=== PATIENT | female | born 1990 | race Caucasian/White ===

== ENCOUNTER 2017-10-31 07:59 | Observation (INO) | payer MEDICAID, SELFPAY ==
[2017-10-31] VITALS (25 sets, daily range): BP systolic 105–135; BP diastolic 66–88; PULSE 108–133; RESP 4–38; TEMP 37–37.8; O2SAT 95–98
--- NOTE | 2017-10-31 08:27 | DI.RAD_ITS ---
SYMPTOM/DIAGNOSIS: COUGH, SOB, WHEEZES, TACHY PA AND LATERAL CHEST: Comparison is made with 05 May 2017. The heart size is normal. The lungs are well inflated and clear. No infiltrate or effusion is seen. No interstitial or emphysematous changes are visible. IMPRESSION: No acute abnormality.
[2017-10-31 08:48] LABS: BE (Venous) -0.3 mmol/L (-3-3); HCO3 (Venous) 24 mmol/L (22-28); O2 Sat (Venous) 71 % (70-80); TCO2 (Venous) 22 mmol/L (22-29); pCO2 (Venous) 38 mm/Hg (34-47); pH (Venous) 7.41 (7.32-7.43); pO2 (Venous) 38 mm/Hg (28-44)
[2017-10-31 08:50] LABS: Abs Immature Grans 0.01 k/cumm (0.0-0.09); Absolute Basophil Count 0.04 k/cumm (0.0-0.2); Absolute Lymphocyte Count 1.21 k/cumm (1.2-3.4); Absolute Monocyte Count 0.51 k/cumm (0.11-0.7); Absolute Neutrophil Count 6.78 k/cumm (1.2-6.7); Basophils % 0.4; Eosinophils % 13.2; HCT 42.4 % (36.0-46.0); HGB 14.4 g/dL (12.0-15.5); Immature Grans % 0.1; Lymphocytes % 12.3; Mean Corpuscular Hemoglobin 27.4 pg (27.0-33.0); Mean Corpuscular Volume 80.6 fL (80-95); Mean Platelet Volume 10.5 fL (8.0-11.0); Monocytes % 5.2; Neutrophils % 68.8; Platelet Count 256 x1000/uL (130-400); RBC 5.26 m/cumm (4.00-5.20); RBC Distribution Width 14.2 % (11.7-14.6); White Blood Cell Count 9.85 k/cumm (4.4-10.8)
[2017-10-31] MEDS: methylPREDNISolone SUCC 125 MG VIAL IVP (08:50)
[2017-10-31] MEDS: Albuterol/Ipratropium 3 ML UPD VIAL UPD (08:50)
[2017-10-31] MEDS: Normal Saline 1,000 ML 1000 ML IV (08:50)
[2017-10-31 09:09] LABS: Diff Comment Manual Differential
[2017-10-31 09:12] LABS: ALT 33 U/L (12-78); AST 27 U/L (15-37); Albumin 3.8 g/dL (3.4-5.0); Alkaline Phosphatase 58 U/L (46-116); Anion Gap 9.3 mmol/L (3-11); BUN 3 mg/dL (7-18); Bilirubin, Total 0.3 mg/dL (0.2-1.0); CO2 24.7 mmol/L (21.0-32.0); CREATININE 0.86 mg/dL (0.55-1.02); Calcium 8.5 mg/dL (8.5-10.1); Chloride 104 mmol/L (98-107); Glucose 95 mg/dL (70-100); Potassium 3.6 mmol/L (3.5-5.1); Sodium 138 mmol/L (136-145); TSH 1.68 uIU/mL (0.358-3.74)
[2017-10-31 09:14] LABS: Troponin I < 0.02 ng/mL (0.00-0.06)
[2017-10-31 09:22] LABS: D-Dimer 167 ng/mlFEU (<500)
[2017-10-31] MEDS: Albuterol/Ipratropium 3 ML UPD VIAL 6 ML UPD ×2 (09:30→10:15)
--- NOTE | 2017-10-31 09:52 | DI.VRAD_ITS ---
EXAM: XR Chest, 2 Views EXAM DATE/TIME: 10/31/2017 8:28 AM CLINICAL HISTORY: 27 years old, female; Pain and signs and symptoms; Cough and wheezing; Chest pain; Type not specified TECHNIQUE: XR of the chest, 2 views. COMPARISON: CR - CHEST 2 VIEWS PA,LAT 05/08/2017 11:08 AM FINDINGS: Lungs: Unremarkable. No consolidation. Pleural space: Unremarkable. No pleural effusion. No pneumothorax. Heart/Mediastinum: Unremarkable. No cardiomegaly. Bones/joints: Unremarkable for patient's age. IMPRESSION: 1. Normal 2 view chest examination. 2. No significant interval change. Dictated and Authenticated by: Butch Zamudio MD. Ordering:GONZALES PHELPS MD
[2017-10-31] MEDS: Normal Saline 1,000 ML 1500 ML IV (11:25)
[2017-10-31] MEDS: Ketorolac 30 MG/ML VIAL IM (11:31)
[2017-10-31 11:43] LABS: Tricyclic Antidepressants Negative (Negative)
[2017-10-31 11:48] LABS: Troponin I < 0.02 ng/mL (0.00-0.06)
[2017-10-31 11:50] LABS: *AMPHETAMINES SCREEN URINE Negative (Negative); *BARBITURATES SCREEN URINE Negative (Negative); *BENZODIAZEPINES SCREEN URINE Negative (Negative); Cannabinoids THC Negative (Negative); Cocaine Screen,Urine Negative (Negative); METHADONE URINE SCREEN Negative (Negative); OPIATES URINE SCREEN Negative (Negative)
[2017-10-31 11:58] LABS: Salicylate < 2.8 mg/dL (2.8-20.0)
[2017-10-31 12:02] LABS: Acetaminophen < 2 ug/mL (10-30)
--- NOTE | 2017-10-31 13:01 | ED.GENADUL_ITS ---
Discharge Plan Disposition Patient Disposition: [facility] INPATIENT Condition: Stable Discharge Details Chief Complaint: RespSymp Clinical Impression: Tachycardia, Wheeze, Community acquired pneumonia Reason For Visit: TACHYCARDIA Admit Date/Time: 10/31/17 12:55 Admit Provider: Austin Dowell Attending Provider: Austin Dowell Primary Care Provider: Jenn Moss ED Provider: Kennedy Cortez Discharge Data Discharge Date/Time-TO BE ENTERED AT DEPARTURE: 10/31/17 14:18 Medical Decision Making MDM Narrative Medical decision making narrative: This is a 27-year-old female with a past medical history of an undifferentiated reactive airway disease with no history of smoking, pneumonia 2-3 months ago, who presents today with chest pain for the last 3 days, which is pleuritic in nature. She has an associated cough that is nonproductive with upper respiratory symptoms as well. She has no history of pulmonary embolism, and no significant red flags however on exam she is notably tachycardic in the 120s on arrival. She does look mildly dehydrated. We will rehydrate the patient, perform both a cardiac and d-dimer workup, get a chest x-ray to evaluate for pneumonia. Because of her notable wheezes on exam we will give the patient updraft treatments for improvement of this. 11 AM Patient's laboratory workup has returned relatively benign. White count is normal. No significant left shift. Venous pH and VBG are normal. Electrolytes are normal, kidney function is stable. Troponin is normal. EKG demonstrates evidence of sinus tachycardia but no evidence of S1 Q3 T3 or right heart strain. TSH is also normal at this time. On reevaluation after 2-1/2 L of normal saline the patient's heart rate is actually slightly increased, and on my exam while she is sitting lying comfortably in bed she is tachycardic in the 120s-130s. Chest pain is mildly improved. Her wheezes are notably improved. D-dimer is negative. I am surprised by her recurrent tachycardia. Will perform a UDS, get acetaminophen and salicylate level for any atypical toxidrome. 11:55 AM Salicylate and acetaminophen and UDS are all normal. In spite of the this and continued fluids the patient's tachycardia is persistent. Most recent exam demonstrates a heart rate in the 120s-130s. She is comfortable though. Temperature has increased to 37.7, she is in concerning for infectious etiology. I have added azithromycin for potential community-acquired pneumonia not seen on chest x-ray. Because of her persistent tachycardia even in light of her young age I do feel that she would be a poor candidate for discharge home with his notable tachycardia. I feel that it is in the best interest of the patient for continued observation here in the hospital. I have recommended inpatient admission for continued fluids, antibiotics, evaluation. I discussed the case with Dr. Dowell, he is agreed to accept the patient for admission. I have extensively reviewed the treatment plan with the patient. I have addressed all patient concerns at this time. I have also discussed the plan with the admitting physician and they agree with the current assessment and plan and have agreed to assume responsibility for the patient. All parties demonstrate verbal understanding and agreement with our assessment and plan at this time. Chest x-ray per virtual radiology normal 2 view chest examination, no significant interval change. EKG 8:48 AM Rate 120, GA 124, QTc 455, QRS 80, sinus tachycardia. No ST elevations or depressions. No T-wave inversions. Small Q-wave that is insignificant in lead III. Lab Data Lab Results 10/31/17 10/31/17 10/31/17 Range/Units 08:44 08:44 08:44 WBC 9.85 (4.4-10.8) k/cumm RBC 5.26 H (4.00-5.20) m/cumm Hgb 14.4 (12.0-15.5) g/dL Hct 42.4 (36.0-46.0) % MCV 80.6 (80-95) fL MCH 27.4 (27.0-33.0) pg MCHC 34.0 (32.0-36.0) g/dL RDW 14.2 (11.7-14.6) % Plt Count 256 (130-400) x1000/uL MPV 10.5 (8.0-11.0) fL Immature Gran % 0.1 Neutrophils % 68.8 Lymphocytes % 12.3 Monocytes % 5.2 Eosinophils % 13.2 Basophils % 0.4 Absolute Neutrophils 6.78 H (1.2-6.7) k/cumm Absolute Lymphocytes 1.21 (1.2-3.4) k/cumm Absolute Monocytes 0.51 (0.11-0.7) k/cumm Absolute Eosinophils 1.30 H (0.0-0.7) k/cumm Absolute Basophils 0.04 (0.0-0.2) k/cumm Differential Comment Manual differential RBC Morphology See below D-Dimer 167 (<500) ng/mlFEU VBG pH (7.32-7.43) VBG pCO2 (34-47) mm/Hg VBG pO2 (28-44) mm/Hg VBG HCO3 (22-28) mmol/L VBG Total CO2 (22-29) mmol/L VBG O2 Saturation (70-80) % VBG Base Excess (-3-3) mmol/L Sodium 138 (136-145) mmol/L Potassium 3.6 (3.5-5.1) mmol/L Chloride 104 (98-107) mmol/L Carbon Dioxide 24.7 (21.0-32.0) mmol/L Anion Gap 9.3 (3-11) mmol/L BUN 3 L (7-18) mg/dL Creatinine 0.86 (0.55-1.02) mg/dL Estimated GFR/1.73 m2 >= 60.00 (mL/min/1.73m2) Glucose 95 (70-100) mg/dL Calcium 8.5 (8.5-10.1) mg/dL Total Bilirubin 0.3 (0.2-1.0) mg/dL AST 27 (15-37) U/L ALT 33 (12-78) U/L Alkaline Phosphatase 58 (46-116) U/L Troponin I < 0.02 (0.00-0.06) ng/mL Total Protein 8.0 (6.4-8.2) g/dL Albumin 3.8 (3.4-5.0) g/dL TSH 1.68 (0.358-3.74) uIU/mL Salicylates (2.8-20.0) mg/dL Urine Opiates Screen (Negative) Urine Methadone Screen (Negative) Acetaminophen (10-30) ug/mL Ur Barbiturates Screen (Negative) Ur Tricyclics Screen (Negative) Ur Amphetamines Screen (Negative) U Benzodiazepines Scrn (Negative) Urine Cocaine Screen (Negative) Ur THC Screen (Negative) 10/31/17 10/31/17 10/31/17 Range/Units 08:44 09:15 11:20 WBC (4.4-10.8) k/cumm RBC (4.00-5.20) m/cumm Hgb (12.0-15.5) g/dL Hct (36.0-46.0) % MCV (80-95) fL MCH (27.0-33.0) pg MCHC (32.0-36.0) g/dL RDW (11.7-14.6) % Plt Count (130-400) x1000/uL MPV (8.0-11.0) fL Immature Gran % Neutrophils % Lymphocytes % Monocytes % Eosinophils % Basophils % Absolute Neutrophils (1.2-6.7) k/cumm Absolute Lymphocytes (1.2-3.4) k/cumm Absolute Monocytes (0.11-0.7) k/cumm Absolute Eosinophils (0.0-0.7) k/cumm Absolute Basophils (0.0-0.2) k/cumm Differential Comment RBC Morphology D-Dimer (<500) ng/mlFEU VBG pH 7.41 (7.32-7.43) VBG pCO2 38 (34-47) mm/Hg VBG pO2 38 (28-44) mm/Hg VBG HCO3 24 (22-28) mmol/L VBG Total CO2 22 (22-29) mmol/L VBG O2 Saturation 71 (70-80) % VBG Base Excess -0.3 (-3-3) mmol/L Sodium (136-145) mmol/L Potassium (3.5-5.1) mmol/L Chloride (98-107) mmol/L Carbon Dioxide (21.0-32.0) mmol/L Anion Gap (3-11) mmol/L BUN (7-18) mg/dL Creatinine (0.55-1.02) mg/dL Estimated GFR/1.73 m2 (mL/min/1.73m2) Glucose (70-100) mg/dL Calcium (8.5-10.1) mg/dL Total Bilirubin (0.2-1.0) mg/dL AST (15-37) U/L ALT (12-78) U/L Alkaline Phosphatase (46-116) U/L Troponin I < 0.02 (0.00-0.06) ng/mL Total Protein (6.4-8.2) g/dL Albumin (3.4-5.0) g/dL TSH (0.358-3.74) uIU/mL Salicylates (2.8-20.0) mg/dL Urine Opiates Screen Negative (Negative) Urine Methadone Screen Negative (Negative) Acetaminophen (10-30) ug/mL Ur Barbiturates Screen Negative (Negative) Ur Tricyclics Screen Negative (Negative) Ur Amphetamines Screen Negative (Negative) U Benzodiazepines Scrn Negative (Negative) Urine Cocaine Screen Negative (Negative) Ur THC Screen Negative (Negative) 10/31/17 Range/Units 11:25 WBC (4.4-10.8) k/cumm RBC (4.00-5.20) m/cumm Hgb (12.0-15.5) g/dL Hct (36.0-46.0) % MCV (80-95) fL MCH (27.0-33.0) pg MCHC (32.0-36.0) g/dL RDW (11.7-14.6) % Plt Count (130-400) x1000/uL MPV (8.0-11.0) fL Immature Gran % Neutrophils % Lymphocytes % Monocytes % Eosinophils % Basophils % Absolute Neutrophils (1.2-6.7) k/cumm Absolute Lymphocytes (1.2-3.4) k/cumm Absolute Monocytes (0.11-0.7) k/cumm Absolute Eosinophils (0.0-0.7) k/cumm Absolute Basophils (0.0-0.2) k/cumm Differential Comment RBC Morphology D-Dimer (<500) ng/mlFEU VBG pH (7.32-7.43) VBG pCO2 (34-47) mm/Hg VBG pO2 (28-44) mm/Hg VBG HCO3 (22-28) mmol/L VBG Total CO2 (22-29) mmol/L VBG O2 Saturation (70-80) % VBG Base Excess (-3-3) mmol/L Sodium (136-145) mmol/L Potassium (3.5-5.1) mmol/L Chloride (98-107) mmol/L Carbon Dioxide (21.0-32.0) mmol/L Anion Gap (3-11) mmol/L BUN (7-18) mg/dL Creatinine (0.55-1.02) mg/dL Estimated GFR/1.73 m2 (mL/min/1.73m2) Glucose (70-100) mg/dL Calcium (8.5-10.1) mg/dL Total Bilirubin (0.2-1.0) mg/dL AST (15-37) U/L ALT (12-78) U/L Alkaline Phosphatase (46-116) U/L Troponin I (0.00-0.06) ng/mL Total Protein (6.4-8.2) g/dL Albumin (3.4-5.0) g/dL TSH (0.358-3.74) uIU/mL Salicylates < 2.8 L (2.8-20.0) mg/dL Urine Opiates Screen (Negative) Urine Methadone Screen (Negative) Acetaminophen < 2 L (10-30) ug/mL Ur Barbiturates Screen (Negative) Ur Tricyclics Screen (Negative) Ur Amphetamines Screen (Negative) U Benzodiazepines Scrn (Negative) Urine Cocaine Screen (Negative) Ur THC Screen (Negative) HPI - General Adult General Date/Time Provider Initiated Documentation: 10/31/17 08:09 . 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 No known family history of alpha-1 antitrypsin deficiency. She presents today for chest pain. Patient states that for the last 3 days she has had mild pleuritic-like chest pain, worse with cough and breathing. She has had an associated cough with rhinorrhea and congestion. She admits to chills at home. Pain is not improved with sitting upright or leaning forward she denies any productivity of the cough. She denies any arm pain, neck pain or shoulder pain. She denies any other sick contacts. Patient does state that she was on antibiotics frequently for various infections in the past. She denies any significant allergies to medications. She denies any family cardiac history. Denies PE risk factors such as recent long car rides, immobilization, recent surgery, prior history of DVT or PE, family history of PE or DVT, morbid obesity, exogenous estrogen and smoking, hemoptysis, history of cancer. She denies any IV or illicit drug use. Patient has no other complaints at this time. Patient has taken her inhaler and 2 breathing treatments at home but denies any significant improvement of her symptoms with this. Related Data Home Medications Medication Instructions Recorded Confirmed L norgest/e.estradiol-e.estrad 1 tab PO DAILY 10/31/17 10/31/17 [Ashlyna] cetirizine 10 mg PO DAILY 10/31/17 10/31/17 Previous Rx's Medication Instructions Recorded albuterol sulfate [ProAir HFA] 2 puff INHALATION Q4H PRN PRN #1 04/19/17 inh Allergies Allergy/AdvReac Type Severity Reaction Status Date / Time banana Allergy Unknown Skin Rash Unverified 10/31/17 09:31 peach Allergy Unverified 10/31/17 09:31 General Stated Complaint: RespSymp ROXANNE: 4 Review of Systems Review of Systems 10 point review of systems was performed, pertinent positives and negatives are noted in the history of present illness. PFSH Family History Mother Mental disorder Asthma Father No problems noted. Sister No problems noted. Brother No problems noted. Other Diabetes Personal history of malignant neoplasm Medical History Tachycardia (Acute) Obstructive airway disease (Chronic) Social History Smoking/Tobacco Use Status: Never Exam Narrative Exam Narrative: 1.Const: Well-nourished, Well-developed, appearing stated age 2.Eyes: PERRL, no conjunctival injection, and symmetrical lids. 3.ENT: Atraumatic external nose and ears. Moist MM. Neck: Symmetric, trachea midline, No thyromegaly. No evidence of otitis media or externa. No significant cervical lymphadenopathy. Notable congestion in the nares. Clear rhinorrhea. 4.CVS: +S1/S2, No murmurs or gallops. Peripheral pulses 2+ and equal in all extremities. Brisk capillary refill in all extremities. 5.RESP: Unlabored respiratory effort. Notable wheezes throughout the upper lung jacobo bilaterally. No significant crackles. Reproducible chest pain circumferentially around her seventh ribs. No evidence of subluxation. No signs of trauma. 6.GI: Soft, Nontender/Nondistended, No hepatosplenomegaly. No guarding or rebound. 7.MSK: Normocephalic/Atraumatic, Extremities w/o deformity or ttp No cyanosis or clubbing, Normal movement of all extremities. No calf tenderness bilaterally. Brisk capillary refill. 8.Skin: Warm, Dry. No rashes or lesions. 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 Sensation grossly intact, no focal neurologic deficits. 10.Psych: (AAO) x3. Appropriate mood and affect Course Vital Signs Temperature 37 C 10/31/17 08:18 Pulse 115 H 10/31/17 08:18 Respiratory Rate 20 10/31/17 08:18 Blood Pressure 127/85 10/31/17 08:18 Pulse Oximetry 97 10/31/17 08:18 Temperature 37.8 C H 10/31/17 11:25 Pulse 121 H 10/31/17 11:25 Respiratory Rate 16 10/31/17 11:25 Blood Pressure 107/67 10/31/17 11:25 Pulse Oximetry 97 10/31/17 11:25 Lab/Test Results Lab/Test Results: Laboratory Tests 10/31/17 10/31/17 10/31/17 08:44 08:44 08:44 WBC 9.85 RBC 5.26 H Hgb 14.4 Hct 42.4 MCV 80.6 MCH 27.4 MCHC 34.0 RDW 14.2 Plt Count 256 MPV 10.5 Immature Gran % 0.1 Neutrophils % 68.8 Lymphocytes % 12.3 Monocytes % 5.2 Eosinophils % 13.2 Basophils % 0.4 Absolute Neutrophils 6.78 H Absolute Lymphocytes 1.21 Absolute Monocytes 0.51 Absolute Eosinophils 1.30 H Absolute Basophils 0.04 Differential Comment Manual differential RBC Morphology See below D-Dimer 167 VBG pH VBG pCO2 VBG pO2 VBG HCO3 VBG Total CO2 VBG O2 Saturation VBG Base Excess Sodium 138 Potassium 3.6 Chloride 104 Carbon Dioxide 24.7 Anion Gap 9.3 BUN 3 L Creatinine 0.86 Estimated GFR/1.73 m2 >= 60.00 Glucose 95 Calcium 8.5 Total Bilirubin 0.3 AST 27 ALT 33 Alkaline Phosphatase 58 Troponin I < 0.02 Total Protein 8.0 Albumin 3.8 TSH 1.68 Salicylates Urine Opiates Screen Urine Methadone Screen Acetaminophen Ur Barbiturates Screen Ur Tricyclics Screen Ur Amphetamines Screen U Benzodiazepines Scrn Urine Cocaine Screen Ur THC Screen 10/31/17 10/31/17 10/31/17 08:44 09:15 11:20 WBC RBC Hgb Hct MCV MCH MCHC RDW Plt Count MPV Immature Gran % Neutrophils % Lymphocytes % Monocytes % Eosinophils % Basophils % Absolute Neutrophils Absolute Lymphocytes Absolute Monocytes Absolute Eosinophils Absolute Basophils Differential Comment RBC Morphology D-Dimer VBG pH 7.41 VBG pCO2 38 VBG pO2 38 VBG HCO3 24 VBG Total CO2 22 VBG O2 Saturation 71 VBG Base Excess -0.3 Sodium Potassium Chloride Carbon Dioxide Anion Gap BUN Creatinine Estimated GFR/1.73 m2 Glucose Calcium Total Bilirubin AST ALT Alkaline Phosphatase Troponin I < 0.02 Total Protein Albumin TSH Salicylates Urine Opiates Screen Negative Urine Methadone Screen Negative Acetaminophen Ur Barbiturates Screen Negative Ur Tricyclics Screen Negative Ur Amphetamines Screen Negative U Benzodiazepines Scrn Negative Urine Cocaine Screen Negative Ur THC Screen Negative 10/31/17 11:25 WBC RBC Hgb Hct MCV MCH MCHC RDW Plt Count MPV Immature Gran % Neutrophils % Lymphocytes % Monocytes % Eosinophils % Basophils % Absolute Neutrophils Absolute Lymphocytes Absolute Monocytes Absolute Eosinophils Absolute Basophils Differential Comment RBC Morphology D-Dimer VBG pH VBG pCO2 VBG pO2 VBG HCO3 VBG Total CO2 VBG O2 Saturation VBG Base Excess Sodium Potassium Chloride Carbon Dioxide Anion Gap BUN Creatinine Estimated GFR/1.73 m2 Glucose Calcium Total Bilirubin AST ALT Alkaline Phosphatase Troponin I Total Protein Albumin TSH Salicylates < 2.8 L Urine Opiates Screen Urine Methadone Screen Acetaminophen < 2 L Ur Barbiturates Screen Ur Tricyclics Screen Ur Amphetamines Screen U Benzodiazepines Scrn Urine Cocaine Screen Ur THC Screen
[2017-10-31] MEDS: AZITHROMYCIN 500 MG in Normal Saline 250 ML 250 MG IVPB (13:35)
--- NOTE | 2017-10-31 15:22 | W.PM.HP.N ---
Date of service: 10/31/17 Time of Service: 15:22 Assessment and Plan (1) Tachycardia: Current visit: Yes Status: Acute Tachycardia in setting of acute likely febrile upper respiratory illness in patient with underlying chronic pulmonary disease. Please note that the patient also appeared to have mention of some modest tachycardia on a discharge summary from 2016 during prior pregnancies. As stated above the patient is febrile, and potentially volume depleted. She is also describing a possible Bronchitis type picture with a sick contact last week with a co-worker, and has underlying Obstructive pulmonary disease. She does not appear to be septic. Other differential considered but ruled out includes anemia, hypoxia, hypotension, and hyperthyroid state (normal TSH). Patient denies any significant pain other than pleuritic type chest discomfort. PE essentially ruled out with a normal DDimer. Highly doubt ACS with EKG showing lack of ischemic changes, age of patient, and lack of significant family history. No evidence of illicit drugs or reported stimulant use. She is also not anemic and there is no evidence of CHF clinicallly. Will hydrate overnight, treat URI, and reevaluate tomorrow. (2) Obstructive airway disease: Current visit: Yes Status: Chronic PFTs showing Moderately Severe Obstructive Airway Disease WITH significant Bronchodilator Response - Question Asthma, although mention was made of potential respiratory neuromuscular dysfunction. Steroids, antibiotics, and nebs for now. Patient is scheduled for outpatient pulm follow-up. Reassess symptoms in the morning. (3) DVT prophylaxis: Current visit: Yes Status: Acute SCDs. History of Present Illness Chief Complaint: Dyspnea Narrative: Pleasant 27-year-old woman with a past medical history of Obstructive Airway Disease by PFTs in June, presents to [facility] emergency department with complaints of worsening dyspnea, cough, and subjective fevers. Ms. Guillen reports a bout of pneumonia in March of this past year. She began to experience continuing dyspnea following her illness, with occasional intermittent bouts of worsening symptoms. Her PCP obtained PFTs in 06/2017, which showed Moderately severe obstructive airway disease with significant bronchodilar response. She has been scheduled to see a local facilities specialist, but not until November of this year. She states that approximately 3 days ago she began experiences worsening dyspnea that did not respond to her home inhaler therapy, as well as a cough, rhinorhea, congestion, and subjective fever. She describes chest pain with deep inspiration and coughing as well. Upon presentation to the ED she was noted to be persistently tachycardic, with an EKG showing sinus tachycardia, negative troponins, normal appearing labs, and a normal CXR. Her DDimer was negative. While afebrile her max temperature was noted to be 37.8. Given the persistent tachycardia despite IVF resuscitation she was referred for admission. Review of Systems Review of Systems All systems reviewed & are unremarkable except as noted in HPI and below PFSH Family History Mother Mental disorder Asthma Father No problems noted. Sister No problems noted. Brother No problems noted. Other Diabetes Personal history of malignant neoplasm Medical History Tachycardia (Acute) Obstructive airway disease (Chronic) Social History Smoking/Tobacco Use Status: Never Meds Allergies Allergy/AdvReac Type Severity Reaction Status Date / Time banana Allergy Unknown Skin Rash Unverified 10/31/17 09:31 peach Allergy Unverified 10/31/17 09:31 Exam Const General: cooperative, healthy appearing, comfortable and no acute distress Neck Neck: supple Resp Effort & Inspection: normal respiratory effort, able to speak in complete sentences and no audible wheezes Auscultation: clear to auscultation bilaterally and no wheezes Cardio Rate: tachycardic Heart Sounds: S1 normal, S2 normal, no murmurs and no rubs Extrem General: no edema Psych Appearance: grossly normal Mental Status: mental status grossly normal Affect: normal affect Attitude: cooperative Results Labs : 10/31/17 08:44 10/31/17 08:44 Abnormal lab results 10/31/17 10/31/17 10/31/17 Range/Units 08:44 08:44 11:25 RBC 5.26 H (4.00-5.20) m/cumm Absolute Neutrophils 6.78 H (1.2-6.7) k/cumm Absolute Eosinophils 1.30 H (0.0-0.7) k/cumm BUN 3 L (7-18) mg/dL Salicylates < 2.8 L (2.8-20.0) mg/dL Acetaminophen < 2 L (10-30) ug/mL Diabetes panel 10/31/17 Range/Units 08:44 Sodium 138 (136-145) mmol/L Potassium 3.6 (3.5-5.1) mmol/L Chloride 104 (98-107) mmol/L Carbon Dioxide 24.7 (21.0-32.0) mmol/L BUN 3 L (7-18) mg/dL Creatinine 0.86 (0.55-1.02) mg/dL Glucose 95 (70-100) mg/dL Calcium 8.5 (8.5-10.1) mg/dL AST 27 (15-37) U/L ALT 33 (12-78) U/L Alkaline Phosphatase 58 (46-116) U/L Total Protein 8.0 (6.4-8.2) g/dL Albumin 3.8 (3.4-5.0) g/dL Thyroid panel 10/31/17 Range/Units 08:44 TSH 1.68 (0.358-3.74) uIU/mL Calcium panel 10/31/17 Range/Units 08:44 Calcium 8.5 (8.5-10.1) mg/dL Albumin 3.8 (3.4-5.0) g/dL Pituitary panel 10/31/17 Range/Units 08:44 Sodium 138 (136-145) mmol/L Potassium 3.6 (3.5-5.1) mmol/L Chloride 104 (98-107) mmol/L Carbon Dioxide 24.7 (21.0-32.0) mmol/L BUN 3 L (7-18) mg/dL Creatinine 0.86 (0.55-1.02) mg/dL Glucose 95 (70-100) mg/dL Calcium 8.5 (8.5-10.1) mg/dL TSH 1.68 (0.358-3.74) uIU/mL Adrenal panel 10/31/17 Range/Units 08:44 Sodium 138 (136-145) mmol/L Potassium 3.6 (3.5-5.1) mmol/L Chloride 104 (98-107) mmol/L Carbon Dioxide 24.7 (21.0-32.0) mmol/L BUN 3 L (7-18) mg/dL Creatinine 0.86 (0.55-1.02) mg/dL Glucose 95 (70-100) mg/dL Calcium 8.5 (8.5-10.1) mg/dL Total Bilirubin 0.3 (0.2-1.0) mg/dL AST 27 (15-37) U/L ALT 33 (12-78) U/L Alkaline Phosphatase 58 (46-116) U/L Total Protein 8.0 (6.4-8.2) g/dL Albumin 3.8 (3.4-5.0) g/dL Laboratory Tests 10/31/17 10/31/17 10/31/17 08:44 08:44 08:44 WBC 9.85 RBC 5.26 H Hgb 14.4 Hct 42.4 MCV 80.6 MCH 27.4 MCHC 34.0 RDW 14.2 Plt Count 256 MPV 10.5 Immature Gran % 0.1 Neutrophils % 68.8 Lymphocytes % 12.3 Monocytes % 5.2 Eosinophils % 13.2 Basophils % 0.4 Absolute Neutrophils 6.78 H Absolute Lymphocytes 1.21 Absolute Monocytes 0.51 Absolute Eosinophils 1.30 H Absolute Basophils 0.04 Differential Comment Manual differential RBC Morphology See below D-Dimer 167 VBG pH VBG pCO2 VBG pO2 VBG HCO3 VBG Total CO2 VBG O2 Saturation VBG Base Excess Sodium 138 Potassium 3.6 Chloride 104 Carbon Dioxide 24.7 Anion Gap 9.3 BUN 3 L Creatinine 0.86 Estimated GFR/1.73 m2 >= 60.00 Glucose 95 Calcium 8.5 Total Bilirubin 0.3 AST 27 ALT 33 Alkaline Phosphatase 58 Troponin I < 0.02 Total Protein 8.0 Albumin 3.8 TSH 1.68 Salicylates Urine Opiates Screen Urine Methadone Screen Acetaminophen Ur Barbiturates Screen Ur Tricyclics Screen Ur Amphetamines Screen U Benzodiazepines Scrn Urine Cocaine Screen Ur THC Screen 10/31/17 10/31/17 10/31/17 08:44 09:15 11:20 WBC RBC Hgb Hct MCV MCH MCHC RDW Plt Count MPV Immature Gran % Neutrophils % Lymphocytes % Monocytes % Eosinophils % Basophils % Absolute Neutrophils Absolute Lymphocytes Absolute Monocytes Absolute Eosinophils Absolute Basophils Differential Comment RBC Morphology D-Dimer VBG pH 7.41 VBG pCO2 38 VBG pO2 38 VBG HCO3 24 VBG Total CO2 22 VBG O2 Saturation 71 VBG Base Excess -0.3 Sodium Potassium Chloride Carbon Dioxide Anion Gap BUN Creatinine Estimated GFR/1.73 m2 Glucose Calcium Total Bilirubin AST ALT Alkaline Phosphatase Troponin I < 0.02 Total Protein Albumin TSH Salicylates Urine Opiates Screen Negative Urine Methadone Screen Negative Acetaminophen Ur Barbiturates Screen Negative Ur Tricyclics Screen Negative Ur Amphetamines Screen Negative U Benzodiazepines Scrn Negative Urine Cocaine Screen Negative Ur THC Screen Negative 10/31/17 11:25 WBC RBC Hgb Hct MCV MCH MCHC RDW Plt Count MPV Immature Gran % Neutrophils % Lymphocytes % Monocytes % Eosinophils % Basophils % Absolute Neutrophils Absolute Lymphocytes Absolute Monocytes Absolute Eosinophils Absolute Basophils Differential Comment RBC Morphology D-Dimer VBG pH VBG pCO2 VBG pO2 VBG HCO3 VBG Total CO2 VBG O2 Saturation VBG Base Excess Sodium Potassium Chloride Carbon Dioxide Anion Gap BUN Creatinine Estimated GFR/1.73 m2 Glucose Calcium Total Bilirubin AST ALT Alkaline Phosphatase Troponin I Total Protein Albumin TSH Salicylates < 2.8 L Urine Opiates Screen Urine Methadone Screen Acetaminophen < 2 L Ur Barbiturates Screen Ur Tricyclics Screen Ur Amphetamines Screen U Benzodiazepines Scrn Urine Cocaine Screen Ur THC Screen
[2017-10-31] MEDS: Potassium Chloride 20 MEQ TABCR 40 MEQ PO (15:59)
[2017-10-31] MEDS: Normal Saline 1,000 ML 150 ML IV ×2 (16:50→23:23)
[2017-10-31] MEDS: predniSONE 20 MG TAB 40 MG PO (19:41)
[2017-10-31] MEDS: Patient's Own Medication 1 EACH MISC PO (20:59)
[2017-11-01 03:40] VITALS: BP 107/54; PULSE 110; RESP 18; TEMP 36.5; O2SAT 96
[2017-11-01] MEDS: Normal Saline 1,000 ML 150 ML IV (05:42)
[2017-11-01 07:00] VITALS: PULSE 97
[2017-11-01 07:33] LABS: Anion Gap 11.6 mmol/L (3-11); BUN 5 mg/dL (7-18); CO2 19.4 mmol/L (21.0-32.0); Chloride 108 mmol/L (98-107); Glucose 119 mg/dL (70-100); Magnesium 1.7 mg/dL (1.8-2.4); Potassium 4.3 mmol/L (3.5-5.1); Sodium 139 mmol/L (136-145)
[2017-11-01 07:45] VITALS: BP 119/78; PULSE 104; RESP 16; TEMP 37.4; O2SAT 95
[2017-11-01] MEDS: predniSONE 20 MG TAB 40 MG PO (08:12)
[2017-11-01] MEDS: Azithromycin 250 MG TAB PO (08:12)
[2017-11-01 09:15] VITALS: BP 123/79; PULSE 133; RESP 18; TEMP 37.6; O2SAT 97
--- NOTE | 2017-11-01 11:30 | W.PM.DS.N ---
DS: Diagnosis Discharge Diagnosis (1) Tachycardia: Status: Acute (2) Obstructive airway disease: Status: Chronic Discharge Plan Disposition Patient Disposition: HOME Condition: Stable Discharge Details Reason For Visit: TACHYCARDIA Admit Date/Time: 10/31/17 12:55 Admit Provider: Austin Dowell Attending Provider: Austin Dowell Primary Care Provider: [facility] Hospital Course: HPI: Pleasant 27-year-old woman with a past medical history of Obstructive Airway Disease by PFTs in June, presents to [facility] emergency department with complaints of worsening dyspnea, cough, and subjective fevers. Ms. Guillne reports a bout of pneumonia in March of this past year. She began to experience continuing dyspnea following her illness, with occasional intermittent bouts of worsening symptoms. Her PCP obtained PFTs in 06/2017, which showed Moderately severe obstructive airway disease with significant bronchodilar response. She has been scheduled to see a local replanting machine crewman, but not until November of this year. She states that approximately 3 days ago she began experiences worsening dyspnea that did not respond to her home inhaler therapy, as well as a cough, rhinorhea, congestion, and subjective fever. She describes chest pain with deep inspiration and coughing as well. Upon presentation to the ED she was noted to be persistently tachycardic, with an EKG showing sinus tachycardia, negative troponins, normal appearing labs, and a normal CXR. Her DDimer and Urine Drug Screen were negative and her TSH was normal. While afebrile her max temperature was noted to be 37.8. Given the persistent tachycardia despite IVF resuscitation she was referred for admission. Studies: (1) XR of the chest, 2 views. COMPARISON: CR - CHEST 2 VIEWS PA,LAT 05/08/2017 11:08 AM FINDINGS: Lungs: Unremarkable. No consolidation. Pleural space: Unremarkable. No pleural effusion. No pneumothorax. Heart/Mediastinum: Unremarkable. No cardiomegaly. Bones/joints: Unremarkable for patient's age. IMPRESSION: 1. Normal 2 view chest examination. 2. No significant interval change. (2) EKG - Sinus Tachycardia Hospital Course: (1) Tachycardia: Current visit: Yes Status: Acute Tachycardia in setting of acute likely febrile upper respiratory illness in patient with underlying chronic pulmonary disease. Please note that the patient also appeared to have mention of some modest tachycardia on a discharge summary from 2016 during prior pregnancies. As stated above the patient reports subjective fevers, and is potentially volume depleted. She is also describing a possible Bronchitis type picture with a sick contact last week with a co-worker, and has underlying Obstructive pulmonary disease. She does not appear to be septic. Other differential considered but ruled out includes anemia, hypoxia, hypotension, and hyperthyroid state (normal TSH). Patient denies any significant pain other than pleuritic type chest discomfort. PE essentially ruled out with a normal DDimer. Highly doubt ACS with EKG showing lack of ischemic changes, age of patient, and lack of significant family history. No evidence of illicit drugs or reported stimulant use - however she does state drinking increased amounts of soda at home. She is also not anemic and there is no evidence of CHF clinicallly. Patient was hydrated and maintained on telemetry overnight. Her HR was 100-130's, mostly in the 100-110's. Plan is for continuation of antibiotics, oral prednisone taper, and continuation of her home IGC and rescue inhaler. Will obtain an ECHO and Holter as outpatient. This case was discussed with cardiology at [facility], and completely agreed upon. (2) Obstructive airway disease: Current visit: Yes Status: Chronic PFTs showing Moderately Severe Obstructive Airway Disease WITH significant Bronchodilator Response - Question Asthma, although mention was made of potential respiratory neuromuscular dysfunction. Ms. Guillen is being discharged with continuation of her home inhaled glucocorticoid and rescue inhaler therapy, as well as with a steroid taper and completion of antibiotic course. Scheduled for follow-up with replanting machine crewman next month. There may also be a component of allergen-induced asthma as well. Currently stable, with a mild exacerbation in setting of acute URI - non-hypoxic. Home Meds and New Rx's Prescriptions: New azithromycin 250 mg Tablet 250 mg PO DAILY 3 Days Qty: 3 RF: 0 prednisone 20 mg Tablet PO BID 6 Days Qty: 14 RF: 0 Continue albuterol sulfate [ProAir HFA] 200 PUFF HFA aerosol inhaler 2 puff Inhalation Q4H PRN PRN (Reason: Wheezing) Qty: 1 RF: 0 cetirizine 10 mg Tablet 10 mg PO DAILY RF: 0 L norgest/e.estradiol-e.estrad [Ashlyna] 0.15 mg-30 mcg (84)/10 mcg (7) Tablets,Dose Pack,3 Month 1 tab PO DAILY RF: 0 Discharge Instructions Instructions: Asthma (DC) Additional Instructions: Please follow-up with your PCP within 2 weeks. Please complete your antibiotics and steroids as prescribed. You will need to schedule a heart ultrasound and Holter monitor after leaving the hospital. We will help you arrange this. Stand Alone Forms: Nursing Discharge Form Activity:: Strenuous Activity. Equipment/Supplies:: No Equipment Needed Diet:: Regular Discharge Orders Discharge Orders: Discharge Order (Routine); Ordered 11/01/17 Ordered By: Austin Dowell Other Ambulatory Orders: Holter Monitor (Outpt) (ONCE) (1) Location: Determined by Patient Ordered By: Austin Dowell US echocardiogram (Routine) Location: Determined by Patient Ordered By: Austin Dowell Exam Const General: cooperative, healthy appearing, comfortable and no acute distress Neck Neck: supple Resp Effort & Inspection: normal respiratory effort, able to speak in complete sentences and no audible wheezes Auscultation: clear to auscultation bilaterally and no wheezes Cardio Rate: tachycardic Heart Sounds: S1 normal, S2 normal, no murmurs and no rubs Extrem General: no edema Psych Appearance: grossly normal Mental Status: mental status grossly normal Affect: normal affect Attitude: cooperative DS: Data Vitals/I&O Vitals and I&O: Vital Signs Temp 37.6 C H 11/01/17 09:15 Pulse 133 H 11/01/17 09:15 Resp 18 11/01/17 09:15 BP 123/79 11/01/17 09:15 Pulse Ox 97 11/01/17 09:15 Intake & Output 10/31/17 10/31/17 11/01/17 11:59 23:59 11:59 Intake Total 1000 / 1000 5452.5 / 5452.5 1287.5 / 1287.5 Output Total 2100 / 2100 1600 / 1600 Balance 1000 / 1000 3352.5 / 3352.5 -312.5 / -312.5 Weight 77.6 kg Intake: IV 1000 / 1000 4732.5 / 4732.5 947.5 / 947.5 Oral 720 / 720 340 / 340 Output: Urine 2100 / 2100 1600 / 1600 Other: Urine Color Yellow Yellow Urine Appearance Clear Cloudy Urine Odor Normal Normal Voiding Methods Toilet Toilet Labs on day of discharge: Labs from last 24 hours 11/01/17 10/31/17 10/31/17 07:15 11:25 11:20 Sodium 139 Potassium 4.3 Chloride 108 H Carbon Dioxide 19.4 L Anion Gap 11.6 H BUN 5 L Creatinine 0.70 Estimated GFR/1.73 m2 >= 60.00 Glucose 119 H Calcium 8.0 L Magnesium 1.7 L Troponin I < 0.02 Salicylates < 2.8 L Urine Opiates Screen Urine Methadone Screen Acetaminophen < 2 L Ur Barbiturates Screen Ur Tricyclics Screen Ur Amphetamines Screen U Benzodiazepines Scrn Urine Cocaine Screen Ur THC Screen 10/31/17 09:15 Sodium Potassium Chloride Carbon Dioxide Anion Gap BUN Creatinine Estimated GFR/1.73 m2 Glucose Calcium Magnesium Troponin I Salicylates Urine Opiates Screen Negative Urine Methadone Screen Negative Acetaminophen Ur Barbiturates Screen Negative Ur Tricyclics Screen Negative Ur Amphetamines Screen Negative U Benzodiazepines Scrn Negative Urine Cocaine Screen Negative Ur THC Screen Negative Date of service: 11/01/17 Time of Service: 11:31
--- NOTE | 2017-11-01 11:34 | DSE_ITS ---
DS: Diagnosis Discharge Diagnosis (1) Tachycardia: Status: Acute (2) Obstructive airway disease: Status: Chronic Discharge Plan Disposition Patient Disposition: HOME Condition: Stable Discharge Details Reason For Visit: TACHYCARDIA Admit Date/Time: 10/31/17 12:55 Admit Provider: Austin Dowell Attending Provider: Austin Dowell Primary Care Provider: [facility] Hospital Course: HPI: Pleasant 27-year-old woman with a past medical history of Obstructive Airway Disease by PFTs in June, presents to [facility] emergency department with complaints of worsening dyspnea, cough, and subjective fevers. Ms. Guillen reports a bout of pneumonia in March of this past year. She began to experience continuing dyspnea following her illness, with occasional intermittent bouts of worsening symptoms. Her PCP obtained PFTs in 06/2017, which showed Moderately severe obstructive airway disease with significant bronchodilar response. She has been scheduled to see a local chief bank examiner, but not until November of this year. She states that approximately 3 days ago she began experiences worsening dyspnea that did not respond to her home inhaler therapy, as well as a cough, rhinorhea, congestion, and subjective fever. She describes chest pain with deep inspiration and coughing as well. Upon presentation to the ED she was noted to be persistently tachycardic, with an EKG showing sinus tachycardia, negative troponins, normal appearing labs, and a normal CXR. Her DDimer and Urine Drug Screen were negative and her TSH was normal. While afebrile her max temperature was noted to be 37.8. Given the persistent tachycardia despite IVF resuscitation she was referred for admission. Studies: (1) XR of the chest, 2 views. COMPARISON: CR - CHEST 2 VIEWS PA,LAT 05/08/2017 11:08 AM FINDINGS: Lungs: Unremarkable. No consolidation. Pleural space: Unremarkable. No pleural effusion. No pneumothorax. Heart/Mediastinum: Unremarkable. No cardiomegaly. Bones/joints: Unremarkable for patient's age. IMPRESSION: 1. Normal 2 view chest examination. 2. No significant interval change. (2) EKG - Sinus Tachycardia Hospital Course: (1) Tachycardia: Current visit: Yes Status: Acute Tachycardia in setting of acute likely febrile upper respiratory illness in patient with underlying chronic pulmonary disease. Please note that the patient also appeared to have mention of some modest tachycardia on a discharge summary from 2016 during prior pregnancies. As stated above the patient reports subjective fevers, and is potentially volume depleted. She is also describing a possible Bronchitis type picture with a sick contact last week with a co-worker, and has underlying Obstructive pulmonary disease. She does not appear to be septic. Other differential considered but ruled out includes anemia, hypoxia, hypotension, and hyperthyroid state (normal TSH). Patient denies any significant pain other than pleuritic type chest discomfort. PE essentially ruled out with a normal DDimer. Highly doubt ACS with EKG showing lack of ischemic changes, age of patient, and lack of significant family history. No evidence of illicit drugs or reported stimulant use - however she does state drinking increased amounts of soda at home. She is also not anemic and there is no evidence of CHF clinicallly. Patient was hydrated and maintained on telemetry overnight. Her HR was 100-130's , mostly in the 100-110's. Plan is for continuation of antibiotics, oral prednisone taper, and continuation of her home IGC and rescue inhaler. Will obtain an ECHO and Holter as outpatient. This case was discussed with cardiology at [facility], and completely agreed upon. (2) Obstructive airway disease: Current visit: Yes Status: Chronic PFTs showing Moderately Severe Obstructive Airway Disease WITH significant Bronchodilator Response - Question Asthma, although mention was made of potential respiratory neuromuscular dysfunction. Ms. Guillen is being discharged with continuation of her home inhaled glucocorticoid and rescue inhaler therapy, as well as with a steroid taper and completion of antibiotic course. Scheduled for follow-up with chief bank examiner next month. There may also be a component of allergen-induced asthma as well. Currently stable, with a mild exacerbation in setting of acute URI - non-hypoxic. Home Meds and New Rx's Prescriptions: New azithromycin 250 mg Tablet 250 mg PO DAILY 3 Days Qty: 3 RF: 0 prednisone 20 mg Tablet PO BID 6 Days Qty: 14 RF: 0 Continue albuterol sulfate [ProAir HFA] 200 PUFF HFA aerosol inhaler 2 puff Inhalation Q4H PRN PRN (Reason: Wheezing) Qty: 1 RF: 0 cetirizine 10 mg Tablet 10 mg PO DAILY RF: 0 L norgest/e.estradiol-e.estrad [Ashlyna] 0.15 mg-30 mcg (84)/10 mcg (7) Tablets,Dose Pack,3 Month 1 tab PO DAILY RF: 0 Discharge Instructions Instructions: Asthma (DC) Additional Instructions: Please follow-up with your PCP within 2 weeks. Please complete your antibiotics and steroids as prescribed. You will need to schedule a heart ultrasound and Holter monitor after leaving the hospital. We will help you arrange this. Stand Alone Forms: Nursing Discharge Form Activity:: Strenuous Activity. Equipment/Supplies:: No Equipment Needed Diet:: Regular Discharge Orders Discharge Orders: Discharge Order (Routine); Ordered 11/01/17 Ordered By: Austin Dowell Other Ambulatory Orders: Holter Monitor (Outpt) (ONCE) (1) Location: Determined by Patient Ordered By: Austin Dowell US echocardiogram (Routine) Location: Determined by Patient Ordered By: Austin Dowell Exam Const General: cooperative, healthy appearing, comfortable and no acute distress Neck Neck: supple Resp Effort & Inspection: normal respiratory effort, able to speak in complete sentences and no audible wheezes Auscultation: clear to auscultation bilaterally and no wheezes Cardio Rate: tachycardic Heart Sounds: S1 normal, S2 normal, no murmurs and no rubs Extrem General: no edema Psych Appearance: grossly normal Mental Status: mental status grossly normal Affect: normal affect Attitude: cooperative DS: Data Vitals/I&O Vitals and I&O: Vital Signs Temp 37.6 C H 11/01/17 09:15 Pulse 133 H 11/01/17 09:15 Resp 18 11/01/17 09:15 BP 123/79 11/01/17 09:15 Pulse Ox 97 11/01/17 09:15 Intake & Output 10/31/17 10/31/17 11/01/17 11:59 23:59 11:59 Intake Total 1000 / 1000 5452.5 / 5452.5 1287.5 / 1287.5 Output Total 2100 / 2100 1600 / 1600 Balance 1000 / 1000 3352.5 / 3352.5 -312.5 / -312.5 Weight 77.6 kg Intake: IV 1000 / 1000 4732.5 / 4732.5 947.5 / 947.5 Oral 720 / 720 340 / 340 Output: Urine 2100 / 2100 1600 / 1600 Other: Urine Color Yellow Yellow Urine Appearance Clear Cloudy Urine Odor Normal Normal Voiding Methods Toilet Toilet Labs on day of discharge: Labs from last 24 hours 11/01/17 10/31/17 10/31/17 07:15 11:25 11:20 Sodium 139 Potassium 4.3 Chloride 108 H Carbon Dioxide 19.4 L Anion Gap 11.6 H BUN 5 L Creatinine 0.70 Estimated GFR/1.73 m2 >= 60.00 Glucose 119 H Calcium 8.0 L Magnesium 1.7 L Troponin I < 0.02 Salicylates < 2.8 L Urine Opiates Screen Urine Methadone Screen Acetaminophen < 2 L Ur Barbiturates Screen Ur Tricyclics Screen Ur Amphetamines Screen U Benzodiazepines Scrn Urine Cocaine Screen Ur THC Screen 10/31/17 09:15 Sodium Potassium Chloride Carbon Dioxide Anion Gap BUN Creatinine Estimated GFR/1.73 m2 Glucose Calcium Magnesium Troponin I Salicylates Urine Opiates Screen Negative Urine Methadone Screen Negative Acetaminophen Ur Barbiturates Screen Negative Ur Tricyclics Screen Negative Ur Amphetamines Screen Negative U Benzodiazepines Scrn Negative Urine Cocaine Screen Negative Ur THC Screen Negative Date of service: 11/01/17 Time of Service: 11:31
[2017-11-01 12:12] VITALS: PULSE 129
[2017-11-01] MEDS: Normal Saline Flush 10 ML SYR IVP (12:39)
--- NOTE | 2017-11-01 15:51 | PDOC.CMIN ---
- If Service Date Differs Date of service: 11/01/17 Time of Service: 09:00 Care Management Initial Assess REASON FOR HOSPITALIZATION:: Tachycardia PAST MEDICAL HISTORY/PAST SURGICAL HISTORY:: Asthma PREVIOUS FUNCTIONAL STATUS/SOCIAL/FAMILY SUPPORTS:: Miya lives in [place], [place] with her SO and her two daughters. 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 She is independent with ADL's and transportation. CURRENT FUNCTIONAL STATUS:: Miya is sitting up in bed her two daughters and samra are at the bedside. CM reviewed reason for admission with Pt and history r/t asthma. She states she takes pulmocort and that she takes her medications everyday. She has an updraft at home in addition to her inhaler. She states that she sets a timer on her phone so that she does not forget medications. She states she had a PFT in the past and she did not think she had a diagnosis of asthma. She was referred to Pulmonoligist locally and has an appointment with her in November. CM reviewed triggers for asthma including allergens such as pets, mold and pollen. She states she takes Zyrtec at night. Miya has been using her albuterol frequently due to shortness of breath she does not feel she has been finding relief from it. She states she does not smoke and is not exposed to second hand smoke. She believes she has had difficulty with breathing most of her life. ADVANCE DIRECTIVES:: None on file Has patient been provided with information about the portal?: Yes Did the patient sign up for the portal?: No CODE STATUS:: Full Code INSURANCE COVERAGE / FINANCIAL ISSUES:: Medicaid CURRENT HOME/COMMUNITY SERVICES/EQUIPMENT:: Nebulizer. PRIMARY CARE PHYSICIAN:: Jenn Moss APRN POTENTIAL DISCHARGE NEEDS:: Follow up appointment is scheduled with in November. PATIENT/FAMILY EDUCATION NEEDS:: Discharge education, medications, limitations, follow-up plan of care, ask me 3 discussion and self-management. CM provided education related to asthma action plan, inhaler use, including inhaled steroids. TRANSPORTATION:: Via private car with her significant other. PLAN:: Miya, will be discharged home today oral steroids, antibiotics, albuterol inhaler, and her Pulmicort. 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 CM provided contact information for questions when she is discharged.
--- NOTE | 2017-11-01 16:02 | INITIAL_ITS ---
- If Service Date Differs Date of service: 11/01/17 Time of Service: 09:00 Care Management Initial Assess REASON FOR HOSPITALIZATION:: Tachycardia PAST MEDICAL HISTORY/PAST SURGICAL HISTORY:: Asthma PREVIOUS FUNCTIONAL STATUS/SOCIAL/FAMILY SUPPORTS:: Miya lives in [place], [place] with her SO and her two daughters. 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 She is independent with ADL's and transportation. CURRENT FUNCTIONAL STATUS:: Miya is sitting up in bed her two daughters and samra are at the bedside. CM reviewed reason for admission with Pt and history r/t asthma. She states she takes pulmocort and that she takes her medications everyday. She has an updraft at home in addition to her inhaler. She states that she sets a timer on her phone so that she does not forget medications. She states she had a PFT in the past and she did not think she had a diagnosis of asthma. She was referred to Pulmonoligist locally and has an appointment with her in November. CM reviewed triggers for asthma including allergens such as pets , mold and pollen. She states she takes Zyrtec at night. Miya has been using her albuterol frequently due to shortness of breath she does not feel she has been finding relief from it. She states she does not smoke and is not exposed to second hand smoke. She believes she has had difficulty with breathing most of her life. ADVANCE DIRECTIVES:: None on file Has patient been provided with information about the portal?: Yes Did the patient sign up for the portal?: No CODE STATUS:: Full Code INSURANCE COVERAGE / FINANCIAL ISSUES:: Medicaid CURRENT HOME/COMMUNITY SERVICES/EQUIPMENT:: Nebulizer. PRIMARY CARE PHYSICIAN:: Jenn Moss APRN POTENTIAL DISCHARGE NEEDS:: Follow up appointment is scheduled with in November. PATIENT/FAMILY EDUCATION NEEDS:: Discharge education, medications, limitations, follow-up plan of care, ask me 3 discussion and self-management. CM provided education related to asthma action plan, inhaler use, including inhaled steroids. TRANSPORTATION:: Via private car with her significant other. PLAN:: Miya, will be discharged home today oral steroids, antibiotics, albuterol inhaler, and her Pulmicort. 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 CM provided contact information for questions when she is discharged.
--- NOTE | 2017-11-01 16:08 | PDOC.CMDIS ---
- If Service Date Differs Date of service: 11/01/17 Time of Service: 16:09 LACE Index Scoring Tool - Questions: Length of Stay (in days): 2 Acuity (Admit via E.D.?): Yes E.D. Visits: 3 - Answers: Total Score: 8 Risk of Readmission: Low Risk Care Management Discharge Reason for Hospitalization: Tachycardia Discharge Plan: Miya, will be discharged home today oral steroids, antibiotics, albuterol inhaler, and her Pulmicort. 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 CM provided contact information for questions when she is discharged. Patient/Family Education Needs: Discharge education, medications, limitations, follow-up plan of care, ask me 3 discussion and self-management. CM provided education related to asthma action plan, inhaler use, including inhaled steroids.
--- NOTE | 2017-11-01 16:14 | CMDISCH_ITS ---
- If Service Date Differs Date of service: 11/01/17 Time of Service: 16:09 LACE Index Scoring Tool - Questions: Length of Stay (in days): 2 Acuity (Admit via E.D.?): Yes E.D. Visits: 3 - Answers: Total Score: 8 Risk of Readmission: Low Risk Care Management Discharge Reason for Hospitalization: Tachycardia Discharge Plan: Miya, will be discharged home today oral steroids, antibiotics , albuterol inhaler, and her Pulmicort. 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 CM provided contact information for questions when she is discharged. Patient/Family Education Needs: Discharge education, medications, limitations, follow-up plan of care, ask me 3 discussion and self-management. CM provided education related to asthma action plan, inhaler use, including inhaled steroids.
== END 2017-11-01 13:28 | disposition home or self-care (01) ==
LOC: ER 13:20 → MS 22:17
PROVIDERS: Admitting Provider Internal Medicine; Emergency Provider Student in an Organized Health Care Education/Training Program; PCP Nurse Practitioner; Visit Provider Internal Medicine
DX: J44.9 Chronic obstructive pulmonary disease, unspecified; R00.0 Tachycardia, unspecified
CPT/HCPCS: 36410; 36415; 80048; 80053; 80307; 81025; 82805; 87040; 87449; 93005; 94640; 96361; 96365; 96372; 96375; 99217; 99219; 99285; 71046; 80329; 83735; 84443; 84484; 85025; 85379; 93010; G0378; J0456; J1885; J2930; J7512; J7620

== ENCOUNTER 2017-11-04 02:08 | Outpatient (CLI) | payer MEDICAID, SELFPAY | END 2017-11-04 02:28 | PROVIDERS: PCP Nurse Practitioner Family; Visit Provider Internal Medicine | DX: R00.0 Tachycardia, unspecified (principal) | CPT/HCPCS: 93225 ==

== ENCOUNTER 2017-11-06 15:19 | Outpatient (CLI) | payer MEDICAID, SELFPAY ==
--- NOTE | 2017-11-17 16:04 | W.HOLTRPT ---
Holter Monitor Report Holter Monitor Note: Baseline rhythm is sinus. Rare single PAC. No SVT or atrial fibrillation. Rare single PVC. No VT. No bradycardia. Symptoms: Chest pain noted 3 times, 91-121 bpm, no ST-T wave changes. Shortness of breath once during sinus rhythm 128 bpm. Fast heart rate noted 3 times during sinus rhythm 77-115 bpm. Average heart rate 96 bpm, range 67-140 bpm.
== END 2017-11-06 15:39 ==
PROVIDERS: PCP Nurse Practitioner Family; Visit Provider Internal Medicine
DX: R00.0 Tachycardia, unspecified (principal)
CPT/HCPCS: 93226

== ENCOUNTER 2018-03-16 19:19 | Emergency (ER) | payer MEDICAID, SELFPAY ==
[2018-03-16] VITALS (12 sets, daily range): BP systolic 123–134; BP diastolic 81–82; PULSE 115–132; RESP 12–23; TEMP 36.8–37.5; O2SAT 94
--- NOTE | 2018-03-16 19:31 | W.ED.GENAD ---
Discharge Plan Disposition Patient Disposition: HOME Condition: Fair Discharge Details Chief Complaint: RespSymp Clinical Impression: Influenza A, Elevated liver enzymes Primary Care Provider: Nadja Doan ED Provider: Renee Valdez Home Meds and New Rx's Prescriptions: New oseltamivir [Tamiflu] 75 mg capsule 75 mg PO BID 5 Days Qty: 10 RF: 0 ondansetron 4 mg tablet,disintegrating 4 mg PO QID PRN (Reason: nausea and vomiting) Qty: 10 RF: 0 Continued ProAir HFA 200 PUFF HFA aerosol inhaler 2 puff Inhalation Q4H PRN PRN (Reason: Wheezing) Qty: 1 RF: 0 montelukast 10 mg Tablet 10 mg PO QPM RF: 0 cetirizine 10 mg Tablet 10 mg PO DAILY RF: 0 L norgest/e.estradiol-e.estrad [Ashlyna] 0.15 mg-30 mcg (84)/10 mcg (7) Tablets,Dose Pack,3 Month 1 tab PO DAILY RF: 0 Discharge Instructions Instructions: H1N1 Influenza (ED) Additional Instructions: Encourage hydration. Tylenol and/or Motrin as needed for discomfort. Tamiflu as prescribed for influenza. Zofran as prescribed for nausea as needed. Frequent hand hygiene. If you develop shortness of breath, difficulty breathing, inability to stay hydrated or other new/worsening symptoms please seek care urgently once again. Please follow up with primary care next week for reevaluation and to discuss your continued fast heart rate and elevated liver enzymes. Stand Alone Forms: Work Release Referrals: Nadja Doan [Primary Care Provider] - Medical Decision Making Patient is a 28 year old female with history of asthma, presenting today with c/c of URI symptoms. States that coworker has been sick, her child dx with the flu. States that symptoms began less than 48 hours ago. Endorsing cough, congestion, left ear discomfort, sore throat. Endorses nausea but no vomiting or diarrhea. No abdominal pain. Endorrses chills, no documented fevers. Did not receive flu vaccine this year. On exam, patient appears fatigued. She has faint wheeze in RLL, she declines breathing treatment at this time. She reprots she is not SOB or feel tight at this time. Has been using her asthma medication as prescribed. She is tachycardic at 130. Will obtain rapid flu, baseline labs and hydrate the patient. Patient discussed with nursing staff that her HR is always elevated. I reviewed this and patient is typically 110s-120s. Reviewed previous notes, patient was admitted last fall for her tachycardia and asthma. She was referred for Holter and echo. She reports that echo has not yet been completed secondary to insurance issues, has not been in contact with PCP further about this. Patient positive for influenza A. Will begin on Tamiflu. discussed with patient. Receiving Zofran for nausea. Labs reviewed, AST elevated at 57, this has not been elevated historically. Advised patient of this, she will have PCP recheck. Patient prescribed Zofran and Tamiflu. We discussed new/worsening symptoms and when to seek care urgently once again. All of her questions adn concerns were addressed, she is in agreement with this plan. HPI General Mode of arrival: ambulatory. Date/Time Provider Initiated Documentation: 03/16/18 19:30. Limitations to Documentation: no limitations. Information obtained by: patient. History of Present Illness 28 year old F presents to the emergency department with the chief complaint of URI, diffuse body aches, described as moderate, with intensity rated at 8. Quality is described as aching, Patient started experiencing this hour(s) (43) and it has been constant. No relieving factors improve symptom(s), No exacerbating factors reported . Patient notes cough, fever/chills (endorses chills, no documented fevers), loss of appetite, nausea/vomiting (nausea, no vomiting) and shortness of breath (last night, wheezing); denies chest pain, headaches, rash, syncope and weakness. Patient did receive the following treatments prior to arrival, none Related Data Home Medications Medication Instructions Recorded Confirmed ProAir HFA 2 puff INHALATION Q4H PRN PRN #1 04/19/17 03/16/18 inh L norgest/e.estradiol-e.estrad 1 tab PO DAILY 10/31/17 03/16/18 [Ashlyna] cetirizine 10 mg PO DAILY 10/31/17 03/16/18 montelukast 10 mg PO QPM 03/16/18 03/16/18 ondansetron 4 mg PO QID PRN #10 tab 03/16/18 oseltamivir [Tamiflu] 75 mg PO BID 5 Days #10 cap 03/16/18 Previous Rx's Medication Instructions Recorded ProAir HFA 2 puff INHALATION Q4H PRN PRN #1 04/19/17 inh ondansetron 4 mg PO QID PRN #10 tab 03/16/18 oseltamivir [Tamiflu] 75 mg PO BID 5 Days #10 cap 03/16/18 Allergies Allergy/AdvReac Type Severity Reaction Status Date / Time banana Allergy Unknown Skin Rash Unverified 10/31/17 09:31 peach Allergy Unverified 10/31/17 09:31 General Stated Complaint: RespSymp ROXANNE: 3 Review of Systems Constitutional Reports as per HPI and Denies headache(s) Eyes Reports as per HPI, Denies eye discharge and Denies irritation ENT Denies ear discharge, Reports otalgia, Denies headache(s), Denies mouth lesions, Reports nasal congestion, Reports nasal discharge and Reports sore throat Cardiovascular Reports as per HPI, Denies chest pain and Denies dyspnea Respiratory Reports cough, Denies pain with cough, Denies dyspnea, Denies stridor and Denies wheezing Gastrointestinal Reports as per HPI, Denies abdominal pain, Denies change in bowel habits, Denies nausea and Denies vomiting Integumentary/Breasts Reports as per HPI and Denies rash Neurologic Denies headache(s) Allergic/Immunologic Denies wheezing [facility] Medical History Tachycardia (Acute) Obstructive airway disease (Chronic) Family History Mother Mental disorder Asthma Father No problems noted. Sister No problems noted. Brother No problems noted. Other Diabetes Personal history of malignant neoplasm Social History Smoking/Tobacco Use Status: Never Exam Const General: cooperative, healthy appearing, comfortable, no acute distress, well developed and well groomed Nutritional Appearance: average body habitus and well nourished Orientation: alert and awake [facility] Head: normal to inspection, normocephalic and atraumatic Ears: hearing grossly normal bilaterally, external ears normal and TM's normal bilaterally General nose exam: external nose normal and nares normal Face and sinus: normal facial exam, sinuses nontender and face symmetric Mouth: oral mucosae normal, lip normal, tongue normal, oropharynx normal and moist mucous membranes Teeth and gingiva: dentition normal Throat: posterior oropharynx normal, tonsils normal and uvula midline Eyes General: appearance normal, both eyes and all related structures Neck Neck: normal visual inspection, full ROM, no lymphadenopathy and no meningeal signs Resp Effort & Inspection: normal respiratory effort, able to speak in complete sentences and no respiratory distress Auscultation: no rales, no rhonchi and wheezes expiratory wheezes and right lower Cardio Rate: regular rate Rhythm: regular rhythm Heart Sounds: S1 normal and S2 normal Skin General skin exam: no rashes or lesions noted Neuro General: alert and awake Cognition: normal cognition Speech: speech normal Gait: normal gait Psych Appearance: grossly normal and well kempt Mental Status: mental status grossly normal Speech and Movement: speech and movement normal Course Vital Signs Temperature 36.8 C 03/16/18 19:23 Pulse 130 H 03/16/18 19:23 Respiratory Rate 03/16/18 19:23 Blood Pressure 134/82 03/16/18 19:23 Pulse Oximetry 94 L 03/16/18 19:23 Temperature 36.8 C 03/16/18 19:23 Temperature Source Skin 03/16/18 19:23 Pulse 130 H 03/16/18 19:23 Respiratory Rate 22 03/16/18 19:23 Respiratory Effort 03/16/18 19:26 Blood Pressure 134/82 03/16/18 19:23 Blood Pressure Position Sitting 03/16/18 19:23 Pulse Oximetry 94 L 03/16/18 19:23 Oxygen Delivery Method Room Air 03/16/18 19:23 Oxygen Flow Rate 0 03/16/18 19:23 Pain Level 8 03/16/18 19:23
[2018-03-16] MEDS: Normal Saline 1,000 ML 1000 ML IV (19:50)
[2018-03-16] MEDS: Normal Saline Flush 10 ML SYR IVP (19:50)
[2018-03-16 20:03] LABS: Abs Immature Grans 0.01 k/cumm (0.0-0.09); Absolute Basophil Count 0.02 k/cumm (0.0-0.2); Absolute Eosinophil Count 0.07 k/cumm (0.0-0.7); Absolute Lymphocyte Count 0.99 k/cumm (1.2-3.4); Absolute Monocyte Count 0.69 k/cumm (0.11-0.7); Absolute Neutrophil Count 2.68 k/cumm (1.2-6.7); Basophils % 0.4; Eosinophils % 1.6; HCT 41.5 % (36.0-46.0); HGB 14.4 g/dL (12.0-15.5); Immature Grans % 0.2; Lymphocytes % 22.2; Mean Corp. HGB Concentration 34.7 g/dL (32.0-36.0); Mean Corpuscular Hemoglobin 28.1 pg (27.0-33.0); Mean Corpuscular Volume 80.9 fL (80-95); Mean Platelet Volume 10.4 fL (8.0-11.0); Monocytes % 15.5; Neutrophils % 60.1; Platelet Count 233 x1000/uL (130-400); RBC 5.13 m/cumm (4.00-5.20); RBC Distribution Width 13.8 % (11.7-14.6); White Blood Cell Count 4.46 k/cumm (4.4-10.8)
[2018-03-16 20:21] LABS: ALT 57 U/L (12-78); AST 57 U/L (15-37); Albumin 3.5 g/dL (3.4-5.0); Alkaline Phosphatase 52 U/L (46-116); Anion Gap 11.4 mmol/L (3-11); BUN 7 mg/dL (7-18); Bilirubin, Total 0.2 mg/dL (0.2-1.0); CO2 24.6 mmol/L (21.0-32.0); CREATININE 0.98 mg/dL (0.55-1.02); Calcium 8.4 mg/dL (8.5-10.1); Chloride 102 mmol/L (98-107); Glucose 92 mg/dL (70-100); Potassium 3.4 mmol/L (3.5-5.1); Sodium 138 mmol/L (136-145); Total Protein 7.6 g/dL (6.4-8.2)
[2018-03-16] MEDS: Ondansetron 4 MG/2 ML VIAL IVP (20:31)
[2018-03-16] MEDS: Oseltamivir 75 MG CAP PO (20:32)
[2018-03-16] MEDS: Ondansetron O.D.T. 4 MG TABEF 12 MG PO (21:20)
== END 2018-03-16 21:22 | disposition home or self-care (01) ==
PROVIDERS: Emergency Provider Physician Assistant; PCP Nurse Practitioner Family
DX: J11.1 Influenza due to unidentified influenza virus with other respiratory manifestations (principal); R94.5 Abnormal results of liver function studies; J45.909 Unspecified asthma, uncomplicated
CPT/HCPCS: 80053; 87449; 96361; 96374; 99284; 85025; J2405

== ENCOUNTER 2018-04-23 12:17 | Outpatient (CLI) | payer MEDICAID, SELFPAY ==
[2018-04-23 13:01] LABS: Abs Immature Grans 0.02 k/cumm (0.0-0.09); Absolute Basophil Count 0.03 k/cumm (0.0-0.2); Absolute Eosinophil Count 0.76 k/cumm (0.0-0.7); Absolute Lymphocyte Count 2.21 k/cumm (1.2-3.4); Absolute Monocyte Count 0.44 k/cumm (0.11-0.7); Absolute Neutrophil Count 3.86 k/cumm (1.2-6.7); Basophils % 0.4; Eosinophils % 10.4; HCT 42.1 % (36.0-46.0); HGB 14.3 g/dL (12.0-15.5); Immature Grans % 0.3; Lymphocytes % 30.2; Mean Corpuscular Hemoglobin 27.7 pg (27.0-33.0); Mean Corpuscular Volume 81.6 fL (80-95); Mean Platelet Volume 10.4 fL (8.0-11.0); Neutrophils % 52.7; Platelet Count 249 x1000/uL (130-400); RBC 5.16 m/cumm (4.00-5.20); RBC Distribution Width 14.1 % (11.7-14.6); White Blood Cell Count 7.32 k/cumm (4.4-10.8)
[2018-04-26 11:37] LABS: IgE 739 IU/ml (<158)
[2018-04-27 21:39] LABS: Aspergillus Fumigatus IgE <0.35 kU/L; Cat Epithelium IgE 55.4 kU/L; D Farinae IgE <0.35 kU/L; D Pteronyssinus IgE <0.35 kU/L; Dog Dander IgE 12.4 kU/L; Hollister Stier, IgE 10.4 kU/L; House Dust/Greer Lab, IgE 13.1 kU/L
== END 2018-04-23 12:37 ==
PROVIDERS: PCP Nurse Practitioner Family; Visit Provider Internal Medicine
DX: J45.40 Moderate persistent asthma, uncomplicated (principal)
CPT/HCPCS: 36415; 82785; 85025; 86003

== ENCOUNTER 2018-08-06 01:43 | Outpatient (CLI) | payer MEDICAID, SELFPAY ==
--- NOTE | 2018-08-06 12:49 | DI.CT_ITS ---
SYMPTOMS/DIAGNOSIS: HEADACHES, R51, NEW ONSET LAST FEW WEEKS, OCCASIONALLY WAKING HER FROM SLEEP, RT SIDED CT BRAIN: Noncontrast examination was performed. There are no priors for comparison. There is a normal eubanks/white matter differentiation. The ventricles are intact. The basilar cisterns are patent. No acute midline shift or mass effect is identified. There is moderate mucosal thickening seen in the left maxillary sinus. There is mucosal thickening seen in the left maxillary sinus. There is mucosal thickening seen in the right sphenoid sinus. The remaining visualized paranasal sinuses are clear. The mastoid air cells are well pneumatized. The calvarium is intact. IMPRESSION: 1. Paranasal sinusitis. 2. No acute intracranial process.
== END 2018-08-06 02:03 ==
PROVIDERS: PCP Nurse Practitioner Family; Visit Provider Family Medicine
DX: R51 Headache (principal); J32.8 Other chronic sinusitis
CPT/HCPCS: 70450

== ENCOUNTER 2018-08-25 17:11 | Outpatient (REF) | payer MEDICAID, SELFPAY ==
[2018-08-25 18:43] LABS: HCT 40.7 % (36.0-46.0); HGB 13.9 g/dL (12.0-15.5); Mean Corp. HGB Concentration 34.2 g/dL (32.0-36.0); Mean Corpuscular Hemoglobin 27.7 pg (27.0-33.0); Mean Corpuscular Volume 81.1 fL (80-95); Mean Platelet Volume 10.8 fL (8.0-11.0); Platelet Count 294 x1000/uL (130-400); RBC 5.02 m/cumm (4.00-5.20); RBC Distribution Width 13.5 % (11.7-14.6); White Blood Cell Count 7.46 k/cumm (4.4-10.8)
[2018-08-25 18:49] LABS: HCG Qual (Serum) Negative
[2018-08-25 19:15] LABS: Ferritin 21 ng/mL (8-388); TSH (W/Ref FT4) 2.47 uIU/mL (0.358-3.74)
== END 2018-08-25 17:31 ==
LOC: NCHCN 17:11
PROVIDERS: PCP Nurse Practitioner Family; Visit Provider Family Medicine
DX: N93.9 Abnormal uterine and vaginal bleeding, unspecified (principal)
CPT/HCPCS: 85027; 82728; 84443; 84703

== ENCOUNTER 2019-01-07 09:35 | Emergency (ER) | payer BC, SELFPAY ==
[2019-01-07] VITALS (35 sets, daily range): BP systolic 108–143; BP diastolic 73–104; PULSE 72–109; RESP 18; TEMP 36.7–37; O2SAT 95–100
[2019-01-07] MEDS: Normal Saline 1,000 ML 1000 ML IV (10:02)
[2019-01-07] MEDS: Normal Saline Flush 10 ML SYR IVP ×2 (10:07→14:00)
[2019-01-07 10:18] LABS: Abs Immature Grans 0.01 k/cumm (0.0-0.09); Absolute Basophil Count 0.03 k/cumm (0.0-0.2); Absolute Eosinophil Count 0.25 k/cumm (0.0-0.7); Absolute Lymphocyte Count 1.39 k/cumm (1.2-3.4); Absolute Monocyte Count 0.31 k/cumm (0.11-0.7); Absolute Neutrophil Count 7.43 k/cumm (1.2-6.7); Basophils % 0.3; Eosinophils % 2.7; HGB 14.5 g/dL (12.0-15.5); Immature Grans % 0.1; Lymphocytes % 14.8; Mean Corp. HGB Concentration 33.7 g/dL (32.0-36.0); Mean Corpuscular Hemoglobin 26.9 pg (27.0-33.0); Mean Corpuscular Volume 79.6 fL (80-95); Mean Platelet Volume 10.5 fL (8.0-11.0); Monocytes % 3.3; Neutrophils % 78.8; Platelet Count 352 x1000/uL (130-400); RBC Distribution Width 13.1 % (11.7-14.6); White Blood Cell Count 9.42 k/cumm (4.4-10.8)
[2019-01-07 10:27] LABS: ALT 59 U/L (14-59); AST 37 U/L (15-37); Albumin 4.1 g/dL (3.4-5.0); Alkaline Phosphatase 77 U/L (46-116); Anion Gap 10.6 mmol/L (3-11); BUN 5 mg/dL (7-18); Bilirubin, Total 0.3 mg/dL (0.2-1.0); CO2 25.4 mmol/L (21.0-32.0); CREATININE 0.92 mg/dL (0.55-1.02); Calcium 9.3 mg/dL (8.5-10.1); Chloride 104 mmol/L (98-107); Glucose 105 mg/dL (70-100); Lipase 79 U/L (73-393); Potassium 3.6 mmol/L (3.5-5.1); Sodium 140 mmol/L (136-145); Total Protein 7.8 g/dL (6.4-8.2)
[2019-01-07 10:32] LABS: INR 1.1 (0.9-1.1); PTT Activated 25.9 sec (21.0-31.4); Prothrombin Time 11.4 sec (9.3-11.0)
[2019-01-07 10:56] LABS: Bilirubin Negative (Negative); Blood Trace-intact (Negative); Clarity Clear (Clear); Glucose Negative (Negative); Ketones Trace mg/dL (Negative); Leukocyte Esterase Negative (Negative); Nitrite Negative (Negative); Urobilinogen 0.2 EU/dL (Up TO 0.2); pH 7.5 (5-8)
[2019-01-07 11:06] LABS: Bacteria Negative HPF (Negative); Crystals Negative HPF (Negative); Epithelial Cells Moderate HPF (Negative); RBC 0-2 HPF (0-2)
[2019-01-07 11:07] LABS: C & S Indicated? No; Casts Negative LPF (Negative); Mucus Trace (Negative)
--- NOTE | 2019-01-07 11:51 | DI.CT_ITS ---
EXAM: CT ABDOMEN AND PELVIS W CLINICAL HISTORY: abd pain, GI bleeding. TECHNIQUE: Imaging Protocol: Axial computed tomography images with coronal and sagittal reformatted images were created and reviewed CONTRAST MATERIAL: Intravenous: Omnipaque 350 Contrast volume:100 mL contrast route:IV - Oral: No COMPARISON: RENAL COLIC WO CONTRAST from 12/17/2009 CHEST FOR PULMONARY EMBOLUS from 04/19/2017 FINDINGS: ABDOMEN: Lung Bases: Normal where visualized. Liver: There is moderate diffuse fatty infiltration of the liver. No measurable mass. The portal, sup erior mesenteric and splenic veins are patent. There is hepatomegaly. Gallbladder and biliary tract: No radiodense calculus or dilation. Pancreas: Normal density, no abnormal calcifications or inflammatory process. Spleen: Normal. Kidneys: Normal size, contour and axis. No radiodense stones or obstructive uropathy. No masses seen. Adrenal glands: No masses seen. Abdominal Aorta: Abdominal portion non-dilated. PELVIS: Bladder: Symmetric distention, no gross wall thickening. Bowel: There is diffuse moderate bowel wall thickening in the descending colon. No diverticular dise ase is present. There is no evidence of bowel obstruction. There is a normal appendix present. Peritoneal cavity: No ascites, collection or mesenteric inflammatory response. Bones: Within normal limits. There is sclerosis seen at the sacroiliac joints, left greater than righ t. The findings may represent sacroiliitis. Reproductive organs: Within normal limits. Lymph nodes: Unremarkable. Impression: 1. Findings consistent with inflammatory or infectious descending colitis. No evidence of abscess or free air. 2. Sclerotic changes at the sacroiliac joints, which may reflect sacroiliitis. The findings were discussed with the Emergency Department on the date of the examination. DATA REPOSITORY: All CT scans at this facility are submitted to the National Radiology Data Registry (NRDR) Dose Index Registry (DIR) with the [employer] (A[employer]). RADIATION OPTIMIZATION: All CT scans at this facility use at least one of these dose optimization te chniques: automated exposure control; mA and/or kV adjustment per patient size (includes targeted exa ms where dose is matched to clinical indication); or iterative reconstruction.
[2019-01-07] MEDS: Omnipaque 350 MG/ML 100 ML BTL IJ (14:00)
--- NOTE | 2019-01-07 17:43 | ED.GENADUL_ITS ---
Discharge Plan Disposition Patient Disposition: HOME Condition: Good Discharge Details Chief Complaint: GI Bleed Clinical Impression: Colitis Primary Care Provider: Nadja Doan ED Provider: Sissy Ponce Home Meds and New Rx's Prescriptions: New azithromycin 500 mg tablet 500 mg PO DAILY 3 Days Qty: 3 RF: 0 ondansetron HCl [Zofran] 4 mg tablet 4 mg PO Q8H PRN (Reason: nausea and vomiting) Qty: 10 RF: 0 dicyclomine 10 mg capsule 10 mg PO QID Qty: 20 RF: 0 No Action albuterol sulfate [ProAir HFA] 200 PUFF HFA aerosol inhaler 2 puff Inhalation Q4H PRN PRN (Reason: Wheezing) Qty: 1 RF: 0 montelukast 10 mg Tablet 10 mg PO QPM RF: 0 Breo Ellipta 100-25 mcg/dose Blister With Device 1 inh INHALATION DAILY RF: 0 cetirizine 10 mg Tablet 10 mg PO DAILY RF: 0 Discharge Instructions Instructions: Colitis (ED) Additional Instructions: Drink plenty of fluids. Clear liquids diet for 2 days Use Bentyl for bowel spasm if needed for spastic abdominal pain. Use antibiotic as prescribed. Use nausea medication as prescribed. Rest activities as tolerated. Follow-up with general surgery as an outpatient for colitis noted on your CAT scan today. Return for alarming symptoms, worsening abdominal pain, increase in ill feeling, increase in blood per rectum or if needed sooner Referrals: Misti Ibrahim MD [ [facility] STAFF PHYSICIAN] - Discharge Data Discharge Date/Time-TO BE ENTERED AT DEPARTURE: 01/07/19 16:43 Medical Decision Making Is a 28-year-old patient who is quite pleasant who presents to the emergency room for complaints of diarrhea which began last evening approximately 11:00 continue to frequently overnight. Patient reports at approximately 4:00 in the morning she had an increase in associated pain in her abdomen as well as blood and mucus in her bowel movements. Patient reports mild chills but no measured fever. She did have associated nausea without vomiting. No change in bowel habitus recently prior to this onset. Patient reports abdominal pain which is present at this time is very atypical for her. She does report the abdominal pain is significantly worse before bowel movement and is somewhat relieved after a bowel movement. Patient does have a notable family history of irritable bowel syndrome. No associated upper respiratory symptoms. Patient does report a mild headache which she does have a history of and this is not the worst headache of her life she does report mild dizziness but feels she is quite dry at this time. Labs are ordered as well as urinalysis. Patient was able to defecate in the emergency room and she did have a pink tinge and mucus in her bowel movement. Patient had subsequent bowel movements in the emergency room which were loose but blood was resolved CT was ordered after labs returned. Patient has no evidence of leukocytosis. Normal coagulation studies, normal CMP. Urinalysis unremarkable for identified infection. CT reavels ABDOMEN: Lung Bases: Normal where visualized. Liver: There is moderate diffuse fatty infiltration of the liver. No measurable mass. The portal, superior mesenteric and splenic veins are patent. There is hepatomegaly. Gallbladder and biliary tract: No radiodense calculus or dilation. Pancreas: Normal density, no abnormal calcifications or inflammatory process. Spleen: Normal. Kidneys: Normal size, contour and axis. No radiodense stones or obstructive uropathy. No masses seen. Adrenal glands: No masses seen. Abdominal Aorta: Abdominal portion non-dilated. PELVIS: Bladder: Symmetric distention, no gross wall thickening. Bowel: There is diffuse moderate bowel wall thickening in the descending colon. No diverticular disease is present. There is no evidence of bowel obstruction. There is a normal appendix present. Peritoneal cavity: No ascites, collection or mesenteric inflammatory response. Bones: Within normal limits. There is sclerosis seen at the sacroiliac joints, left greater than right. The findings may represent sacroiliitis. Reproductive organs: Within normal limits. Lymph nodes: Unremarkable. Impression: 1. Findings consistent with inflammatory or infectious descending colitis. No evidence of abscess or free air. 2. Sclerotic changes at the sacroiliac joints, which may reflect sacroiliitis. Discussed results with the patient. Offered admission for possible colitis. Patient's preference is discharged home at this time and outpatient follow-up with surgery for further evaluation of her symptoms. Patient was able to provide a stool sample for which was sent for white blood cell count. Given patient's family history of IBS feel that is the most likely diagnosis however after discussion with Dr. Torin Bravo will add a 3-day course of azithromycin given patient's bloody bowel movements. Patient has no persistent blood with her bowel movements. Patient is hemodynamically stable. Patient feels symptomatically improved however does have mild persistent abdominal pain at this time. Patient who does prefer discharge home at this time versus admission was offered azithromycin, Bentyl and Zofran for outpatient management which she agrees with. Precautions were discussed for which she should have immediate return. The patient was stable and requested discharge. Prior to discharge, my usual and customary return precautions were reviewed with the patient - this included follow-up instructions and reasons to return to the Emergency Department if conditions worsens, does not improve as expected, or other new concerns arise. HPI General Date/Time Provider Initiated Documentation: 01/07/19 09:45 . HPI Narrative: Is a 28-year-old patient who presents to the emergency room today for complaints of abdominal pain. Patient reports onset of diarrhea which began yesterday evening at approximately 11:00 PM. Persisted through most of the night, patient had difficulty sleeping due to persistence of diarrhea. Patient reports onset of abdominal pain overnight. Patient reports abdominal cramping somewhat improved after bowel movements. Patient does report at approximately 4 AM she noted onset of blood and mucus in her bowel movements. Patient reports significant increase of pain at this time. Patient reports persistent abdominal pain, decreased p.o. intake. Patient does report she has a mild appetite however due to her pain has not eaten since yesterday. Patient does have nausea without associated vomiting. She denies measured fever but does have a chill. Patient denies upper respiratory symptoms specifically denies sore throat or cough. Patient reports no history of similar abdominal pain. Mother does have a reported history of irritable bowel syndrome. Patient has no personal history of irritable bowel type symptoms historically. Patient denies vaginal discharge or bleeding. Patient has a photo which reveals a light pinkish hue and mucus to the bowel movements. Patient reports passing what looked like tissue. Patient denies any risk of . Patient reports abdominal pain at this time is manageable. She was offered pain medicine and declined. Denies use of blood thinner Related Data Home Medications Medication Instructions Recorded Confirmed albuterol sulfate [ProAir HFA] 2 puff INHALATION Q4H PRN PRN #1 04/19/17 01/07/19 inh cetirizine 10 mg PO DAILY 10/31/17 01/07/19 montelukast 10 mg PO QPM 03/16/18 01/07/19 azithromycin 500 mg PO DAILY 3 Days #3 tab 01/07/19 dicyclomine 10 mg PO QID #20 cap 01/07/19 fluticasone furoate-vilanterol 1 inh INHALATION DAILY 01/07/19 01/07/19 [Breo Ellipta] ondansetron HCl [Zofran] 4 mg PO Q8H PRN #10 tab 01/07/19 Previous Rx's Medication Instructions Recorded albuterol sulfate [ProAir HFA] 2 puff INHALATION Q4H PRN PRN #1 04/19/17 inh azithromycin 500 mg PO DAILY 3 Days #3 tab 01/07/19 dicyclomine 10 mg PO QID #20 cap 01/07/19 ondansetron HCl [Zofran] 4 mg PO Q8H PRN #10 tab 01/07/19 Allergies Allergy/AdvReac Type Severity Reaction Status Date / Time banana Allergy Unknown Skin Rash Unverified 01/07/19 09:41 peach Allergy Unverified 01/07/19 09:41 vancomycin Allergy Swelling/Ed Unverified 01/07/19 09:41 [place] budesonide [From Symbicort] AdvReac Skin Rash Unverified 01/07/19 09:41 formoterol [From Symbicort] AdvReac Skin Rash Unverified 01/07/19 09:41 General Stated Complaint: GI Bleed ROXANNE: 3 Review of Systems All systems reviewed & are unremarkable except as noted in HPI and below Constitutional Constitutional: Reports chills, Denies fever(s), Reports headache(s) and Reports malaise ENT Ears, Nose, Mouth, and Throat: Reports headache(s), Denies nasal congestion and Denies sore throat Respiratory Respiratory: Denies cough, Denies stridor and Denies wheezing Gastrointestinal Gastrointestinal: Reports abdominal pain, Reports hematochezia, Reports change in stool character, Reports cramping, Reports diarrhea, Reports nausea and Denies vomiting Genitourinary Genitourinary: Denies dysuria and Denies urinary urgency Neurologic Neurologic: Reports headache(s) Allergic/Immunologic Allergic/Immunologic: Denies wheezing PFSH Medical History Obstructive airway disease (Chronic) Tachycardia (Acute) Social History Smoking/Tobacco Use Status: Never Alcohol Intake: current Alcohol Intake frequency: holidays/special occasions only Drug use: Never Substance use type: does not use Do you feel safe at home: Yes Do you feel safe in your relationship?: Yes Exam Narrative Exam Narrative: CONST: Healthy appearing patient, in no acute distress. Well hydrated. Alert and alert. HENMT: Head nomocephalic, normal to inspection. Atraumatic. Hearing grossly normal. External ear canal no erythema or swelling. TM normal bilaterally. Nose normal to inspection. No rhinnorhea. Normal facial exam. Oral mucosa normal. Tounge normal. Dentition normal. Normal posterior oropharynx. Uvula midline. EYES: General normal appearance. Alignment normal. Eyelids normal. Conjunctiva normal. Sclera normal. PERRL. NECK: Normal visual inspection. FROM. No lymphadenopathy. Trachea midline. No Midline tenderness. CHEST: Normal insepection of the chest. RESP: Normal respiratory effort. Speaking full sentences. No cough. No wheezing. No retractions. Clear to auscaltation. Breath sound equal and present bilaterally. CARDIO: No JVD. Normal PMI. Regular Rate. Regular Rhythm. Normal peripheral pulses. GI: Normal inspection of abdomen. No distension. Soft. Mild tenderness in the right lower quadrant. Bowel sounds present in all 4 quadrants. No rebound. No gaurding. No peritoneal signs MUSCULOSKELETAL: Normal Gait. FROM of all extremities. Distal neurovascularly intact. Sensation intact distally. PSYCH: Normal affect. Cooperative. Course Vital Signs Vital signs: Vital Signs Temperature 36.7 C 01/07/19 09:37 Pulse 109 H 01/07/19 09:37 Respiratory Rate 18 01/07/19 09:37 Blood Pressure 143/88 H 01/07/19 09:37 Pulse Oximetry 99 01/07/19 09:37 Temperature 37 C 01/07/19 11:32 Temperature Source Tympanic 01/07/19 11:32 Pulse 98 H 01/07/19 16:42 Respiratory Rate 18 01/07/19 16:42 Respiratory Effort Non-Labored 01/07/19 09:42 Blood Pressure 121/85 01/07/19 16:42 Blood Pressure Mean 92 01/07/19 14:45 Blood Pressure Position Sitting 01/07/19 09:37 Pulse Oximetry 98 01/07/19 16:42 Oxygen Delivery Method Room Air 01/07/19 16:42 Oxygen Flow Rate 0 01/07/19 16:42 Pain Level 3 01/07/19 09:37 Comment 01/07/19 09:37 Lab/Test Results Lab/Test Results: 01/07/19 16:05 Stool Lactoferrin Latex Agglutination - Final Laboratory Tests Range/Units 01/07/19 01/07/19 01/07/19 09:55 09:55 09:55 WBC (4.4-10.8) k/cumm 9.42 RBC (4.00-5.20) m/cumm 5.40 H Hgb (12.0-15.5) g/dL 14.5 Hct (36.0-46.0) % 43.0 MCV (80-95) fL 79.6 L MCH (27.0-33.0) pg 26.9 L MCHC (32.0-36.0) g/dL 33.7 RDW (11.7-14.6) % 13.1 Plt Count (130-400) x1000/uL 352 MPV (8.0-11.0) fL 10.5 Immature Gran % 0.1 Neutrophils % 78.8 Lymphocytes % 14.8 Monocytes % 3.3 Eosinophils % 2.7 Basophils % 0.3 Absolute Neutrophils (1.2-6.7) k/cumm 7.43 H Absolute Lymphocytes (1.2-3.4) k/cumm 1.39 Absolute Monocytes (0.11-0.7) k/cumm 0.31 Absolute Eosinophils (0.0-0.7) k/cumm 0.25 Absolute Basophils (0.0-0.2) k/cumm 0.03 PT (9.3-11.0) sec 11.4 H INR (0.9-1.1) 1.1 APTT (21.0-31.4) sec 25.9 Sodium (136-145) mmol/L 140 Potassium (3.5-5.1) mmol/L 3.6 Chloride (98-107) mmol/L 104 Carbon Dioxide (21.0-32.0) mmol/L 25.4 Anion Gap (3-11) mmol/L 10.6 BUN (7-18) mg/dL 5 L Creatinine (0.55-1.02) mg/dL 0.92 Estimated GFR/1.73 m2 (mL/min/1.73m2) >= 60.00 Glucose (70-100) mg/dL 105 H Calcium (8.5-10.1) mg/dL 9.3 Total Bilirubin (0.2-1.0) mg/dL 0.3 AST (15-37) U/L 37 ALT (14-59) U/L 59 Alkaline Phosphatase (46-116) U/L 77 Total Protein (6.4-8.2) g/dL 7.8 Albumin (3.4-5.0) g/dL 4.1 Lipase (73-393) U/L 79 Urine Color (Yellow) Urine Clarity (Clear) Urine pH (5-8) Ur Specific [place] (1.005-1.025) Urine Protein (Negative) mg/dL Urine Ketones (Negative) mg/dL Urine Blood (Negative) Urine Nitrite (Negative) Urine Bilirubin (Negative) Urine Urobilinogen (Up TO 0.2) EU/dL Ur Leukocyte Esterase (Negative) Urine RBC (0-2) HPF Urine WBC (0-5) HPF Ur Epithelial Cells (Negative) HPF Urine Crystals (Negative) HPF Urine Bacteria (Negative) HPF Urine Casts (Negative) LPF Urine Mucus (Negative) Ur Culture Indicated? Urine Glucose (Negative) mg/dL Range/Units 01/07/19 10:45 WBC (4.4-10.8) k/cumm RBC (4.00-5.20) m/cumm Hgb (12.0-15.5) g/dL Hct (36.0-46.0) % MCV (80-95) fL MCH (27.0-33.0) pg MCHC (32.0-36.0) g/dL RDW (11.7-14.6) % Plt Count (130-400) x1000/uL MPV (8.0-11.0) fL Immature Gran % Neutrophils % Lymphocytes % Monocytes % Eosinophils % Basophils % Absolute Neutrophils (1.2-6.7) k/cumm Absolute Lymphocytes (1.2-3.4) k/cumm Absolute Monocytes (0.11-0.7) k/cumm Absolute Eosinophils (0.0-0.7) k/cumm Absolute Basophils (0.0-0.2) k/cumm PT (9.3-11.0) sec INR (0.9-1.1) APTT (21.0-31.4) sec Sodium (136-145) mmol/L Potassium (3.5-5.1) mmol/L Chloride (98-107) mmol/L Carbon Dioxide (21.0-32.0) mmol/L Anion Gap (3-11) mmol/L BUN (7-18) mg/dL Creatinine (0.55-1.02) mg/dL Estimated GFR/1.73 m2 (mL/min/1.73m2) Glucose (70-100) mg/dL Calcium (8.5-10.1) mg/dL Total Bilirubin (0.2-1.0) mg/dL AST (15-37) U/L ALT (14-59) U/L Alkaline Phosphatase (46-116) U/L Total Protein (6.4-8.2) g/dL Albumin (3.4-5.0) g/dL Lipase (73-393) U/L Urine Color (Yellow) Yellow Urine Clarity (Clear) Clear Urine pH (5-8) 7.5 Ur Specific [place] (1.005-1.025) 1.020 Urine Protein (Negative) mg/dL Negative Urine Ketones (Negative) mg/dL Trace H Urine Blood (Negative) Trace-intact H Urine Nitrite (Negative) Negative Urine Bilirubin (Negative) Negative Urine Urobilinogen (Up TO 0.2) EU/dL 0.2 Ur Leukocyte Esterase (Negative) Negative Urine RBC (0-2) HPF 0-2 Urine WBC (0-5) HPF 3-5 Ur Epithelial Cells (Negative) HPF Moderate Urine Crystals (Negative) HPF Negative Urine Bacteria (Negative) HPF Negative Urine Casts (Negative) LPF Negative Urine Mucus (Negative) Trace Ur Culture Indicated? No Urine Glucose (Negative) mg/dL Negative
== END 2019-01-07 16:43 | disposition home or self-care (01) ==
PROVIDERS: Emergency Provider Physician Assistant; PCP Nurse Practitioner Family
DX: K52.9 Noninfective gastroenteritis and colitis, unspecified (principal)
CPT/HCPCS: 36415; 80053; 83690; 96360; 96361; 99285; 74177; 81003; 81015; 83630; 85025; 85610; 85730; 99284; J3490

== ENCOUNTER 2019-01-24 08:03 | Day surgery (SDC) | payer BC, SELFPAY ==
--- NOTE | 2019-01-24 06:55 | W.COLOREPORT ---
Date of service: 01/24/19 Time of Service: 09:48 Colonoscopy Report Date of procedure: 01/24/19 Pre-op diagnosis general: Bloody Diarrhea Post-op diagnosis procedure note: same (Grossly normal colon, Grade 1 internal hemorrhoids) Procedure: Colonoscopy with randome bx of descending and sigmoid colon Surgeon: Misti Ibrahim Anesthesia proc note operative: other (General/ ASA2 /Oralia Velazquez, HUDSON) Estimated blood loss (mL): 3 Pathology: other (Randome bx of descending and sigmoid colon) Complications: None Disposition: same day Indications: 28 year old with sudden onset of diarrhea with blood. Was seen in the ER and CT scan showed inflammation of the descending/sigmoid colon suspicious for colitis. Stool lactoferin was negative. Differential includes bacterial enteritis, viral enteritis, food poisoning and inflammatory bowel disease. Risks, benefits and complications have been reviewed. Complications include but are not limited to bleeding, pain, perforation, missed small lesion/polyp, sore throat, aspiration and adverse reaction to the medications. Questions were entertained and answered to their satisfaction and they wished to proceed. No guarantees were given or implied. Prep: Miralax/Dulcolax Procedure Start Time: :48 Procedure End Time: 10:09 Retraction Time: 14 minutes Findings: Grossly normal colon. No inflammation, no ulcers. Grade 1 internal hemorrhoids Procedure Description: After informed consent was obtained the patient was taken to the procedure room and placed in a left decubitous position. Monitors were applied and a time out was done. The patients name, date of , procedure, allergies to medications and metal in their body was reviewed. The patient was then sedated. Once sedated and comfortable a rectal exam was done. External exam was normal. Internal exam revealed a normal sphincter tone and no palpable masses. The scope was then introduced and retro-flexed. Grade 1 internal hemorrhoids identified. No masses or polyps were identified on retro-flexion. The scope was then advanced to the cecum without difficulty. The TI and appendiceal orifice were identified. The prep was adequate. The scope was advanced into the terminal ileum for 10 cm. The terminal ileum was normal. The scope was then slowly retracted over 14 minutes back into the rectum. There were no polyps and no diverticula. The colon looked grossly normal. The scope was removed and the patient was woken up and taken back to Same day surgery in stable condition. The patient tolerated the procedure well and there were no immediate complications. Follow up: I will call patient with results. Unless the biopsies show something her next colonoscopy should be at age 50
--- NOTE | 2019-01-24 06:56 | W.PM.DSUDISC ---
Discharge Plan Disposition Patient Disposition: HOME Condition: Good Discharge Details Reason For Visit: BLOODY DIARRHEA Attending Provider: Misti Ibrahim Primary Care Provider: Nadja Doan Home Meds and New Rx's Prescriptions: Continued albuterol sulfate [ProAir HFA] 200 PUFF HFA aerosol inhaler 2 puff Inhalation Q4H PRN PRN (Reason: Wheezing) Qty: 1 RF: 0 montelukast 10 mg Tablet 10 mg PO QPM RF: 0 Breo Ellipta 100-25 mcg/dose Blister With Device 1 inh INHALATION DAILY RF: 0 ondansetron HCl [Zofran] 4 mg tablet 4 mg PO Q8H PRN (Reason: nausea and vomiting) Qty: 10 RF: 0 cetirizine 10 mg Tablet 10 mg PO DAILY RF: 0 Discharge Instructions Instructions: Colonoscopy (DC) Additional Instructions: Findings: Normal appearing large bowel Follow up: I will call you with results of some random bx I did. Please call if you develop: fevers >101.5 Nausea or Vomiting Abdominal pain that is not transient DAY SURGERY UNIT POST ENDOSCOPY INSTRUCTIONS 1. Because there will be medication in your system for the next 24 hours, you may feel a little sleepy. Your coordination will be affected. Therefore: a. Do not drive or operate dangerous equipment for 24 hours. b. Do not drink alcohol beverages for 24 hours (not even beer). c. Plan to go home and rest for the day. 2. Generally there are no restrictions on your activity after a day or so has gone by, but you may feel a bit fatigued for a few days. 3 After you arrive home you may have a light meal and return to a normal diet as you can tolerate it without feeling sick to your stomach. 4. After surgery, you may feel pain or discomfort. This should be only transient, but if it persists please contact your doctor. 5. If there are any questions regarding the findings of your procedure, please feel free to contact your doctor. 6. If you are unable to contact your doctor with a problem, contact the hospital at [phone]. 7. Continue all your regular medications unless directed otherwise. I understand the above instructions and have no questions. Signature of Patient or Responsible Adult Escort Date/Time Name of Responsible Adult Escort Signature of Nurse Date/Time Activity:: Activity as Tolerated Diet:: As Tolerated Discharge Orders Discharge Orders: Discharge Order (Routine); Ordered 01/24/19 Ordered By: Misti Ibrahim DS: Diagnosis Discharge Diagnosis (1) S/P colonoscopy: Status: Acute (2) Bloody diarrhea: Status: Acute
[2019-01-24 08:31] VITALS: BP 115/84; PULSE 98; RESP 16; TEMP 36.6; O2SAT 97
[2019-01-24] MEDS: Lactated Ringers 1,000 ML 80 ML IV (08:57)
--- NOTE | 2019-01-24 10:03 | BOWEL_PTH ---
PATIENT: Miya Merritt I LOC: [facility] U#:[id number] AGE/SX: 28/F ROOM: RE01/24/[address]: Misti Ibrahim MD : 1990 BED: DIS: 01/24/2019 SPEC #: [id number] RECD: 01/24/19 12:42 STATUS: ELANA REQ #: [id number] MATTIE: 01/24/19 10:[address]: Misti Ibrahim DEPT: Surgical Specimen RECD BY: Maryam King ENTERED: 01/24/19 12:43 SP TYPE: Bowel OTHR DR: Nadja Doan Tissues: 1 - BIOPSY BOWEL Procedures: GROSS AND MICRO LEVEL 4 Comments: [id number]
[2019-01-24 10:50] VITALS: BP 114/88; PULSE 84; RESP 16; TEMP 36.5; O2SAT 100
== END 2019-01-24 11:23 | disposition home or self-care (01) ==
PROVIDERS: PCP Nurse Practitioner Family; Visit Provider Surgery
PROC: 0DJD8ZZ Inspection of Lower Intestinal Tract, Via Natural or Artificial Opening Endoscopic (ICD-10-PCS; CPT 45378; principal; 2019-01-24 09:30)
DX: R19.7 Diarrhea, unspecified (principal); R93.3 Abnormal findings on diagnostic imaging of other parts of digestive tract; K64.0 First degree hemorrhoids
CPT/HCPCS: 45378; 81025; 88305

== ENCOUNTER 2020-01-24 12:25 | Outpatient (REF) | payer OTHER, SELFPAY ==
--- NOTE | 2020-01-24 09:30 | PAPFT_PTH ---
PATIENT: Miya Merritt I LOC: [facility] U#:[id number] AGE/SX: 29/F ROOM: RE01/24/[address]: Nadja Doan : 1990 BED: DIS: 01/24/2020 SPEC #: [id number] RECD: 01/24/20 18:12 STATUS: ELANA REQ #: [id number] MATTIE: 01/24/20 09:[address]: Nadja Doan DEPT: [facility] Cytology RECD BY: Maryam King Tissues: 1 - CX/ENDOCX FOR PAP SMEARS Procedures: PAP THIN PREP/UVM Screening HPV DNA PROBE Comments: [id number]
== END 2020-01-24 12:45 ==
LOC: NCHCN 12:25
PROVIDERS: PCP Nurse Practitioner Family; Visit Provider Nurse Practitioner Family
DX: R87.612 Low grade squamous intraepithelial lesion on cytologic smear of cervix (LGSIL) (principal); Z11.51 Encounter for screening for human papillomavirus (HPV)
CPT/HCPCS: 88142; 87624

== ENCOUNTER 2020-02-22 10:45 | Outpatient (REF) | payer OTHER, SELFPAY ==
[2020-02-24 16:35] LABS: COVID-19 RT-PCR UVMMC Result Negative (Negative)
== END 2020-02-22 11:05 ==
LOC: NCHCN 10:45
PROVIDERS: PCP Nurse Practitioner Family; Visit Provider Nurse Practitioner Family
DX: Z20.818 Contact with and (suspected) exposure to other bacterial communicable diseases (principal)
CPT/HCPCS: U0003

== ENCOUNTER 2020-03-06 17:36 | Outpatient (REF) | payer OTHER, SELFPAY ==
[2020-03-07 21:53] LABS: COVID-19 RT-PCR Result NEGATIVE (Negative)
== END 2020-03-06 17:56 ==
LOC: NCHCN 17:36
PROVIDERS: PCP Nurse Practitioner Family; Visit Provider Nurse Practitioner Family
DX: Z20.822 Contact with and (suspected) exposure to COVID-19 (principal)
CPT/HCPCS: U0003

== ENCOUNTER 2020-07-16 16:41 | Outpatient (REF) | payer OTHER, SELFPAY ==
[2020-07-18 09:36] LABS: Hepatitis B Surface Ag Negative (Negative)
[2020-07-18 10:25] LABS: HIV-1/2 Ag & Ab Screen Negative (Negative)
[2020-07-18 10:47] LABS: Hepatitis C Ab w Rflx HCV PCR Negative (Negative)
[2020-07-18 11:04] LABS: Syphilis Serology (RPR) Negative (Negative)
[2020-07-18 14:05] LABS: Chlamydia Result Negative (Negative); GC Result Negative (Negative)
== END 2020-07-16 16:42 | disposition home or self-care (01) ==
LOC: NCHCN 16:41
PROVIDERS: PCP Nurse Practitioner Family; Visit Provider Nurse Practitioner Family
DX: Z11.3 Encounter for screening for infections with a predominantly sexual mode of transmission (principal); Z11.59 Encounter for screening for other viral diseases; Z11.4 Encounter for screening for human immunodeficiency virus [HIV]
CPT/HCPCS: 86803; 87340; 87389; 87491; 87591; 86592

== ENCOUNTER 2020-09-08 09:33 | Outpatient (REF) | payer OTHER, SELFPAY ==
[2020-09-09 11:01] LABS: COVID-19 RT-PCR UVMMC Result Negative (Negative)
== END 2020-09-08 09:34 | disposition home or self-care (01) ==
LOC: LBN 09:33
PROVIDERS: PCP Nurse Practitioner Family; Visit Provider Physician Assistant Medical
DX: Z20.822 Contact with and (suspected) exposure to COVID-19 (principal)
CPT/HCPCS: U0003

== ENCOUNTER 2020-10-23 18:41 | Emergency (ER) | payer OTHER, SELFPAY ==
[2020-10-23] VITALS (17 sets, daily range): BP systolic 54–126; BP diastolic 18–89; PULSE 77–112; RESP 13–29; TEMP 36.6; O2SAT 97–99
--- NOTE | 2020-10-23 19:11 | ED.GENADUL_ITS ---
Discharge Plan Disposition Patient Disposition: HOME Condition: Stable Discharge Details Clinical Impression: Dizziness, Nondisplaced fracture of left ulna styloid process, initial encounter for closed fracture Primary Care Provider: Nadja Doan ED Provider: Anjum Simon Home Meds and New Rx's Prescriptions: Continued albuterol sulfate [ProAir HFA] 200 PUFF HFA aerosol inhaler 2 puff Inhalation Q4H PRN PRN (Reason: Wheezing) Qty: 1 RF: 0 montelukast 10 mg Tablet 10 mg PO QPM RF: 0 Breo Ellipta 100-25 mcg/dose Blister With Device 1 inh INHALATION DAILY RF: 0 cetirizine 10 mg Tablet 10 mg PO DAILY RF: 0 Discharge Instructions Instructions: Dizziness (ED) Additional Instructions: your xray showed a possible broken bone of your ulna styloid. follow up with orthopedics your cat scan showed cysts in your sinuses, your primary care provider should be made aware of this and if it continues to be an issue you may need to see an ENT if you feel more ill, have difficulty breathing or severe worsening pain return to the emergency department Medical Decision Making <Shemar Bravo MD - Last Filed: 10/23/20 19:39> This is a 30-year-old female who presents here complaining of 3 weeks of intermittent episodes of feeling lightheaded as if she is about to pass out. She denies a spinning or motion sensation to me. She was seen by her primary care physician and started on meclizine which she states has not helped. Patient has not had syncope. She denies chest pain or palpitations. She does also complain of left distal wrist pain and redness earlier today without antecedent injury. No fever and denies any other positives on review of systems. She will endorse significant daily caffeine use. Patient arrives to the ER afebrile with a resting pulse of 98 that rises to 131 standing. Blood pressure is 120/89. Differential diagnosis includes anemia, dehydration. Must exclude intracranial mass, sinusitis. Patient had IV access established, screening laboratories and urinalysis obtained, given 2 L fluid bolus and Toradol. Additionally she has had the left wrist pain for which she has a fairly remote unremarkable exam but for which we will obtain x-ray. We will sign the patient out to Dr. Simon pending repeat evaluation following 2 L of fluid, ketorolac, labs and imaging. <Anjum Simon MD - Last Filed: 10/23/20 21:14> Patients lab work is unremarkable, xray shows possible chip fracture of ulna styloid and she has pain in this area on exam, no erythema and she can't think of any precedinga trauma. Placed in universal splint and will f/u with ortho. She has retention cysts in the maxillary and sphenoid sinuses and resolution of mucoperiosteal thickening of left maxillary sinus. She is stable and feels improved with fluids, no deficits on neuro exam to suggest central vertigo. She is stable for d/c, advised to f/u with pcp within 1-2 weeks and ortho, return precautions given Imaging Data Radiologic Study: Attestation: I personally reviewed and interpreted this imaging study as follows: Imaging: X-Ray Radiologist's impression: IMPRESSION: Small osseous fragment adjacent to the ulnar styloid with associated soft tissue swelling suspicious for a chip fracture. Radiologic Study #2: Attestation: I personally reviewed and interpreted this imaging study as follows: Imaging: CT Scan Radiologist's impression: IMPRESSION: 1. Retention cysts noted within the bilateral maxillary and right sphenoid sinus. 2. Interval resolution of thick mucoperiosteal thickening of the left maxillary sinus. Lab Data Lab results reviewed: Yes I reviewed the patient's lab results. HPI <Shemar Bravo MD - Last Filed: 10/23/20 19:39> General Mode of arrival: ambulatory . Date/Time Provider Initiated Documentation: 10/23/20 18:42 . Limitations to Documentation: no limitations . Information obtained by: patient . History of Present Illness 30 year old F presents to the emergency department with the chief complaint of Intermittent dizziness for 3 weeks, described as moderate, and is localized to the head. Patient reports no radiation. Patient started experiencing this week(s) and it has been intermittent. No relieving factors improve symptom(s), Other factors that worsen symptoms (Seems to be worse with rising.) . Patient notes headaches (Mild left-sided headache) and other (Also with left wrist pain); denies fever/chills and nausea/vomiting. Patient did receive the following treatments prior to arrival, none Related Data Home Medications Medication Instructions Recorded Confirmed albuterol sulfate [ProAir HFA] 2 puff INHALATION Q4H PRN PRN #1 04/19/17 10/23/20 inh cetirizine 10 mg PO DAILY 10/31/17 10/23/20 montelukast 10 mg PO QPM 03/16/18 10/23/20 Breo Ellipta 1 inh INHALATION DAILY 01/07/19 10/23/20 Previous Rx's Medication Instructions Recorded albuterol sulfate [ProAir HFA] 2 puff INHALATION Q4H PRN PRN #1 04/19/17 inh Allergies Allergy/AdvReac Type Severity Reaction Status Date / Time banana Allergy Unknown Skin Rash Unverified 10/23/20 18:50 peach Allergy Unverified 10/23/20 18:50 vancomycin Allergy Swelling/Ed Unverified 10/23/20 18:50 [place] budesonide [From Symbicort] AdvReac Skin Rash Unverified 10/23/20 18:50 formoterol [From Symbicort] AdvReac Skin Rash Unverified 10/23/20 18:50 General Stated Complaint: Dizzy/Sync ROXANNE: 3 Review of Systems <Shemar Bravo MD - Last Filed: 10/23/20 19:39> Narrative: No fall or injury. No chest pain or palpitations. Eating and drinking normally. Does endorse significant daily caffeine use. No other complaints. PFSH <Shemar Bravo MD - Last Filed: 10/23/20 19:39> Medical History Acute lower UTI (urinary tract infection) (01/31/15) Pt reports possibly when she was little. She reports kidney stones. Depression affecting in first trimester, antepartum (04/17/15) Pt denies this. H/O pre-term labor (04/17/15) x2 Obstructive airway disease Skin cyst on head. Tachycardia Surgical History History of section Hx of wisdom tooth extraction S/P colonoscopy (~01/24/19) Family History Mother Mental disorder depresssion anxietty bipolar Asthma Father No problems noted. Sister No problems noted. Brother No problems noted. Other Diabetes Personal history of malignant neoplasm Social History Smoking/Tobacco Use Status: Never Smoking risk assessment performed?: Yes Alcohol Intake: current Alcohol Intake frequency: holidays/special occasions only Alcohol type: wine and hard liquor Drug use: Never Substance use type: does not use Do you feel safe at home: Yes Do you feel safe in your relationship?: Yes Exam <Shemar Bravo MD - Last Filed: 10/23/20 19:39> Narrative Exam Narrative: GEN: awake, alert, oriented 3. Pleasant, well groomed, interactive. HEAD: Normocephalic, atraumatic ENT: Mucous membranes moist, oropharynx unremarkable, tympanic membranes clear bilaterally, external ear exam unremarkable EYES: PERRL, EOMI NECK: Full ROM, no OSCAR, no menigismus CHEST/RESP: Nontender, clear to auscultation bilateral, no wheeze/rhonchi/rales CARDIOVASCULAR: RRR, no murmur, rub ailyn. 2+ Rad pulse bilateral ABDOMEN: Soft, nontender, no mass. +Bowel sounds EXT: Full ROM, no edema, left wrist distal ulna tender to palpation. No rash appreciated. Neuro: Grossly normal neurologic exam, conversant, interactive. Cranial nerves II through XII intact, [id number] intact Psych: Speech fluent, thoughts congruent, affect normal Course <Shemar Bravo MD - Last Filed: 10/23/20 19:39> Vital Signs Vital signs: Vital Signs Temperature 36.6 C 10/23/20 18:46 Pulse 102 H 10/23/20 18:46 Respiratory Rate 16 10/23/20 18:46 Blood Pressure 122/89 10/23/20 18:46 Pulse Oximetry 97 10/23/20 18:46 Temperature 36.6 C 10/23/20 18:46 Temperature Source Skin 10/23/20 18:46 Pulse 102 H 10/23/20 18:46 Respiratory Rate 16 10/23/20 18:46 Respiratory Effort Non-Labored 10/23/20 18:46 Blood Pressure 122/89 10/23/20 18:46 Blood Pressure Position Sitting 10/23/20 18:46 Pulse Oximetry 97 10/23/20 18:46 Oxygen Delivery Method Room Air 10/23/20 18:46 Oxygen Flow Rate 0 10/23/20 18:46 Pain Level 7 10/23/20 18:46 Sign Out <Shemar Bravo MD - Last Filed: 10/23/20 19:39> Sign Out Data: Sign Out Comment: Followup imaging, labs, re-eval Last updated by Shemar Bravo MD at 10/23/20 19:34
--- NOTE | 2020-10-23 19:15 | DI.CT_ITS ---
Exam(s) CT HEAD SINUS WO EXAM: CT HEAD SINUS WO CLINICAL HISTORY: Left mild headache and dizziness. TECHNIQUE: Imaging Protocol: Axial computed tomography images with coronal and sagittal reformatted images were created and reviewed COMPARISON: CT CT HEAD WO from 08/06/2018 FINDINGS: Ventricles and Extra axial spaces: Normal in size and morphology for the patient's age. Hemorrhage: None. Cerebral parenchyma: Normal. Midline shift: None. Brainstem/Cerebellum: Normal. Calvarium: Normal. Visualized Paranasal sinuses/Mastoids: Please see below. Soft Tissues: Unremarkable. CT sinuses: Frontal sinuses: Normally aerated. Ethmoid air cells: Normally aerated. Maxillary sinuses: Mucous retention cysts or polyps are seen in the maxillary sinuses bilaterally. T here is mild mucosal thickening in the left maxillary sinus. No air-fluid levels are present. Sphenoid sinus: There is a large mucous retention cyst or polyp in the right sphenoid sinus. The lef t sphenoid sinus is clear. No fluid levels are present. Ostiomeatal complexes: Patent. Osseous nasal septum: Midline. Visualized regional soft tissues: No acute findings. Orbits: Unremarkable. Bones: Unremarkable. Mastoid Air Cells: Normally aerated. IMPRESSION: 1. No acute intracranial process. 2. Mucous retention cysts or polyps in the maxillary sinuses bilaterally in the right sphenoid sinus. RADIATION DOSE DELIVERED: 792.4mGy.cm Total DLP DATA REPOSITORY: All CT scans at this facility are submitted to the National Radiology Data Registry (NRDR) Dose Index Registry (DIR) with the [employer] (A[employer]). RADIATION OPTIMIZATION: All CT scans at this facility use at least one of these dose optimization te chniques: automated exposure control; mA and/or kV adjustment per patient size (includes targeted exa ms where dose is matched to clinical indication); or iterative reconstruction.
--- NOTE | 2020-10-23 19:15 | DI.RAD_ITS ---
Exam(s) XR WRIST LT COMPLETE EXAM: XR WRIST LT COMPLETE CLINICAL HISTORY: distal ulnar pain. TECHNIQUE: 2D digital imaging was performed. COMPARISON: No exams were available for comparison FINDINGS: BONES: There is a 3 mm linear osseous density medial to the ulnar styloid process. No bony destructi ve lesion is seen. JOINTS: The carpal bones are normally aligned. SOFT TISSUE: Normal. IMPRESSION: 3 mm osseous density medial to the ulnar styloid process. This may represent a fracture fragment. T his is of indeterminate age. Please correlate clinically. DATA REPOSITORY: RADIATION DOSE DELIVERED:
[2020-10-23 19:36] LABS: Bilirubin Negative (Negative); Blood Negative (Negative); Clarity Clear (Clear); Glucose Negative (Negative); Ketones Negative (Negative); Leukocyte Esterase Negative (Negative); Nitrite Negative (Negative); Urobilinogen 0.2 EU/dL (Up TO 0.2); pH 6.5 (5-8)
[2020-10-23] MEDS: Ketorolac 15 MG/ML VIAL IVP (19:43)
[2020-10-23] MEDS: Normal Saline 1,000 ML 1000 ML IV ×2 (19:43→20:05)
[2020-10-23 19:46] LABS: *AMPHETAMINES SCREEN URINE Negative (Negative); *BARBITURATES SCREEN URINE Negative (Negative); *BENZODIAZEPINES SCREEN URINE Negative (Negative); Cannabinoids THC Negative (Negative); Cocaine Screen,Urine Negative (Negative); METHADONE URINE SCREEN Negative (Negative); OPIATES URINE SCREEN Negative (Negative)
[2020-10-23 20:06] LABS: Tricyclic Antidepressants Negative (Negative)
--- NOTE | 2020-10-23 20:07 | DI.VRAD_ITS ---
PROCEDURE INFORMATION: Exam: XR Left Wrist Exam date and time: 10/23/2020 7:19 PM Age: 30 years old Clinical indication: Wrist; Left; Patient HX: Distal ulnar pain TECHNIQUE: Imaging protocol: XR Left wrist. Views: 3 or more views. COMPARISON: No relevant prior studies available. FINDINGS: Bones/joints: Small osseous fragment adjacent to the ulnar styloid with associated soft tissue swelling suspicious for a chip fracture. Soft tissues: See Bones/joints finding. IMPRESSION: Small osseous fragment adjacent to the ulnar styloid with associated soft tissue swelling suspicious for a chip fracture. Dictated and Authenticated by: Vidal Case MD. Ordering:KAREN Staton MD
[2020-10-23 20:13] LABS: Abs Immature Grans 0.01 10^3/uL (0.0-0.06); Absolute Basophil Count 0.04 10^3/uL (0.0-0.2); Absolute Eosinophil Count 0.68 10^3/uL (0.0-0.7); Absolute Lymphocyte Count 2.31 10^3/uL (1.2-3.4); Absolute Monocyte Count 0.47 10^3/uL (0.1-0.8); Absolute Neutrophil Count 3.78 10^3/uL (1.2-6.7); Basophils % 0.5; Eosinophils % 9.3; HCT 36.8 % (36.0-46.0); Immature Grans % 0.1; Lymphocytes % 31.7; MCH 27.5 pg (27.0-33.0); MCHC 32.6 % (32.0-36.0); MCV 84.2 fL (80-95); MPV 10.1 fL (8.0-11.0); Monocytes % 6.4; Nucleated RBC 0 %; Platelet Count 231 10^3/uL (130-400); RBC 4.37 10^6/uL (3.93-5.22); RDW 12.8 % (11.7-14.6); RDW-SD 39.4 fL; WBC 7.29 10^3/uL (4.4-10.8)
--- NOTE | 2020-10-23 20:19 | DI.VRAD_ITS ---
PROCEDURE INFORMATION: Exam: CT Head Without Contrast Exam date and time: 10/23/2020 7:17 PM Age: 30 years old Clinical indication: Pain; Type not specified; Patient HX: Left mild headache foe 3 weeks and dizziness TECHNIQUE: Imaging protocol: Computed tomography of the head without contrast. COMPARISON: CT HEAD WO 08/06/2018 12:56 PM FINDINGS: Brain: Normal. No hemorrhage. Unremarkable white matter. No mass effect. Cerebral ventricles: No ventriculomegaly. Paranasal sinuses: Visualized sinuses are unremarkable. No fluid levels. Mastoid air cells: Visualized mastoid air cells are well aerated. Bones/joints: Unremarkable. No acute fracture. Soft tissues: Unremarkable. IMPRESSION: No acute intracranial abnormality. PROCEDURE INFORMATION: Exam: CT Maxillofacial Without Contrast, Sinus Exam date and time: 10/23/2020 7:17 PM Age: 30 years old Clinical indication: Pain; Type not specified; Patient HX: Left mild headache foe 3 weeks and dizziness TECHNIQUE: Imaging protocol: CT Maxillofacial without contrast. Focus on the sinuses. Radiation optimization: All CT scans at this facility use at least one of these dose optimization techniques: automated exposure control; mA and/or kV adjustment per patient size (includes targeted exams where dose is matched to clinical indication); or iterative reconstruction. COMPARISON: CT HEAD WO 08/06/2018 12:56 PM FINDINGS: Frontal sinuses: Normal. No air-fluid levels. Ethmoid air cells: Normal. No air-fluid levels. Sphenoid sinuses: Retention cysts noted within the bilateral maxillary and right sphenoid sinus. Maxillary sinuses: Interval resolution of thick mucoperiosteal thickening of the left maxillary sinus. Nasal cavity/Septum: Unremarkable. Orbital cavity: Orbits are normal. Globes are unremarkable. Bones/joints: Unremarkable. Soft tissues: Unremarkable. IMPRESSION: 1. Retention cysts noted within the bilateral maxillary and right sphenoid sinus. 2. Interval resolution of thick mucoperiosteal thickening of the left maxillary sinus. Dictated and Authenticated by: Vidal Case MD. Ordering:KAREN Staton MD
[2020-10-23 20:26] LABS: Magnesium 2.1 mg/dL (1.8-2.4)
[2020-10-23 20:29] LABS: C-Reactive Protein 0.83 mg/dL (0.0-0.3)
[2020-10-23 20:30] LABS: ALT 23 U/L (14-59); AST 14 U/L (15-37); Albumin 3.5 g/dL (3.4-5.0); Alkaline Phosphatase 59 U/L (46-116); Anion Gap 10.2 mmol/L (3-11); BUN 7 mg/dL (7-18); Bilirubin, Total 0.2 mg/dL (0.2-1.0); CO2 26.8 mmol/L (21.0-32.0); CREATININE 0.9 mg/dL (0.55-1.02); Calcium 8.6 mg/dL (8.5-10.1); Chloride 106 mmol/L (98-107); Glucose 107 mg/dL (74-106); Potassium 3.6 mmol/L (3.5-5.1); Sodium 143 mmol/L (136-145); Total Protein 6.8 g/dL (6.4-8.2)
== END 2020-10-23 21:31 | disposition home or self-care (01) ==
PROVIDERS: Emergency Medicine; Emergency Provider Emergency Medicine; PCP Nurse Practitioner Family
DX: R42 Dizziness and giddiness (principal); S52.615A Nondisplaced fracture of left ulna styloid process, initial encounter for closed fracture; X58.XXXA Exposure to other specified factors, initial encounter
CPT/HCPCS: 36415; 80053; 80307; 81025; 96361; 96374; 99284; 70450; 70486; 73110; 81003; 83735; 85025; 86140; J1885

== ENCOUNTER 2020-11-06 19:00 | Outpatient (REF) | payer OTHER, SELFPAY ==
[2020-11-08 20:25] LABS: COVID-19 RT-PCR UVMMC Result Negative (Negative)
== END 2020-11-06 19:01 | disposition home or self-care (01) ==
LOC: LBN 19:00
PROVIDERS: PCP Nurse Practitioner Family; Visit Provider Physician Assistant Medical
DX: Z20.822 Contact with and (suspected) exposure to COVID-19 (principal)
CPT/HCPCS: U0003

== ENCOUNTER 2020-11-22 12:10 | Outpatient (REF) | payer OTHER, SELFPAY ==
[2020-11-23 02:02] LABS: COVID-19 RT-PCR UVMMC Result Negative (Negative)
== END 2020-11-22 12:11 | disposition home or self-care (01) ==
LOC: NCHCN 12:10
PROVIDERS: PCP Nurse Practitioner Family; Visit Provider Physician Assistant Medical
DX: Z20.822 Contact with and (suspected) exposure to COVID-19 (principal); J06.9 Acute upper respiratory infection, unspecified
CPT/HCPCS: U0003

== ENCOUNTER 2020-12-04 22:11 | Emergency (ER) | payer OTHER, SELFPAY ==
--- NOTE | 2020-12-04 22:15 | RT.EKG_ITS ---
APPROVED REPORT Exam: Resting ECG Reason for Exam: chest pain Patient Location: E HR:104 bpm ECG Measurements Heart Rate 104 AXIS [place] 131 P 75 QRSd 71 QRS 72 QT 354 T 47 QTc 466 Conclusion Sinus tachycardia...rate> 99 Physician: no stemi. unremarkable
[2020-12-04 22:17] VITALS: BP 129/83; PULSE 105; RESP 18; TEMP 36.9; O2SAT 99
[2020-12-04 22:33] VITALS: RESP 18
--- NOTE | 2020-12-04 22:33 | ED.GENADUL_ITS ---
Discharge Plan Disposition Patient Disposition: HOME Condition: Good Discharge Details Clinical Impression: Chest pain, Bronchitis Primary Care Provider: Nadja Doan ED Provider: Kennedy Cortez Home Meds and New Rx's Prescriptions: New azithromycin 250 mg tablet See Rx Instructions .ROUTE .COMPLEX Qty: 6 RF: 0 Continued albuterol sulfate [ProAir HFA] 200 PUFF HFA aerosol inhaler 2 puff Inhalation Q4H PRN PRN (Reason: Wheezing) Qty: 1 RF: 0 montelukast 10 mg Tablet 10 mg PO QPM RF: 0 sertraline 100 mg Tablet 100 mg PO DAILY RF: 0 Trelegy Ellipta 100-62.5-25 mcg Blister With Device 1 inh INHALATION DAILY RF: 0 meclizine 25 mg Tablet 25 mg PO TID PRNRF: 0 cetirizine 10 mg Tablet 10 mg PO DAILY RF: 0 Discharge Instructions Instructions: Chest Pain (ED), Acute Bronchitis (ED) Additional Instructions: At this time your work-up shows no evidence of significant heart abnormality, blood clots, Popped lung or other problem. There is concern on your x-ray that you might have early bronchitis. Clinically your symptoms do not appear consistent with this at this time. If you do develop cough fever or chills please take the antibiotic that I have prescribed. Otherwise there is no need. Take Tylenol and Motrin as needed for pain if your chest pain develops again. If you notice any worsening of your symptoms, or any new symptoms such as vomiting, diarrhea, fever, chills, shortness of breath, chest pain, numbness, weakness, or fainting , please return immediately to the emergency department fo r reevaluation. Please follow up with your primary care provider as soon as possible for reassessment and reevaluation. As always, it was a pleasure participating in your medical care today. Referrals: Nadja Doan [Primary Care Provider] - Medical Decision Making 30-year-old female with a past medical history of depression, asthma, presents today for evaluation of chest pain. Patient states that 45 minutes ago she had a sudden onset left-sided sharp chest pain that occurred while she was lying/resting. She denies any tearing or ripping sensation. She denies any shortness of breath. Pain is persistent with breathing but not necessarily made worse with breathing. She has had one episode of nonbloody emesis. She denies any symptoms like this before. Pain is not improved by leaning forward. No other aggravating or relieving factors otherwise. She had cereal for dinner, nothing spicy recently. Denies PE risk factors such as recent long car rides, immobilization, recent surgery, prior history of DVT or PE, first-degree family history of PE or DVT, morbid obesity, exogenous estrogen and smoking, hemo ptysis, history of cancer. She denies any history of personal or family history of AAA/dissection, and states that this does not feel like her asthma. Physical exam demonstrates no reproducible chest pain, radial pulses equal bilaterally. Vital signs stable. No significant tachycardia or hypoxemia. Symptoms are somewhat atypical, low on the differential is PE, less likely cardiac etiology. Symptoms appearing consistent with pericarditis. Suspect potential pancreatitis versus gastric irritation. Lung sounds are clear, no rash or evidence of trauma. Will get EKG, D-dimer, screening chest imaging, monitor closely give a GI cocktail and reassess 1:48 AM Laboratory work-up is returned unremarkable, D-dimer negative, electrolytes normal, lipase normal. After Toradol patient is feeling much better and her chest pain has resolved. Suspect musculoskeletal etiology and less likely mild pericarditis. EKG otherwise stable, with no significant abnormalities. Chest x-ray shows questionable interstitial thickening that may reflect bronchitis or atypical infection. Patient denies any cough or fever at this time, however out of an abundance of precaution we will give a prescription for azithromycin for to take home and she can fill if she does develop the symptoms. This time symptoms are clinically inconsistent with STEMI, PE, dissection, pneumothorax, or severe pneumonia requiring admission. Patient will be discharged home. Discussed red flags which to return. I have extensively reviewed the treatment plan and discharge instructions with the patient. I have addressed all patient concerns at this time. The patient was made aware of what symptoms to monitor for that would warrant a return to the emergency department. Discussed the plan with the patient, they demonstrate verbal understanding and agreement with our assessment and plan at this time. The documentation in this chart was dictated using [employer] dictation software. Please excuse any dictation errors. FINDINGS: Lungs: Mild hyperinflation with minor central interstitial thickening. No airspace consolidation. Pleural spaces: No pleural effusion. No pneumothorax. Heart/Mediastinum: No cardiomegaly. Bones/joints: No acute fracture. IMPRESSION: Interstitial thickening may reflect bronchitis or atypical infection. Thank you for allowing us to participate in the care of your patient. Dictated and Authenticated by: Christine Man MD 12/05/2020 1:40 AM Eastern Time ([place] & [place]) HPI General Date/Time Provider Initiated Documentation: 12/04/20 22:24 . HPI Narrative: 30-year-old female with a past medical history of depression, asthma, presents today for evaluation of chest pain. Patient states that 45 minutes ago she had a sudden onset left-sided sharp chest pain that occurred while she was lying/resting. She denies any tearing or ripping sensation. She denies any shortness of breath. Pain is persistent with breathing but not necessarily made worse with breathing. She has had one episode of nonbloody emesis. She denies any symptoms like this before. Pain is not improved by leaning forward. No other aggravating or relieving factors otherwise. She had cereal for dinner, nothing spicy recently. Denies PE risk factors such as recent long car rides, immobilization, recent surgery, prior history of DVT or PE, first-degree family history of PE or DVT, morbid obesity, exogenous estrogen and smoking, hemoptysis, history of cancer. She denies any history of personal or family history of AAA/dissection, and states that this does not feel like her asthma. Related Data Home Medications Medication Instructions Recorded Confirmed albuterol sulfate [ProAir HFA] 2 puff INHALATION Q4H PRN PRN #1 04/19/17 12/04/20 inh cetirizine 10 mg PO DAILY 10/31/17 12/04/20 montelukast 10 mg PO QPM 03/16/18 12/04/20 Trelegy Ellipta 1 inh INHALATION DAILY 12/04/20 12/04/20 meclizine 25 mg PO TID PRN 12/04/20 12/04/20 sertraline 100 mg PO DAILY 12/04/20 12/04/20 azithromycin See Rx Instructions .ROUTE 12/05/20 .COMPLEX #6 tab Previous Rx's Medication Instructions Recorded albuterol sulfate [ProAir HFA] 2 puff INHALATION Q4H PRN PRN #1 04/19/17 inh azithromycin See Rx Instructions .ROUTE 12/05/20 .COMPLEX #6 tab Allergies Allergy/AdvReac Type Severity Reaction Status Date / Time banana Allergy Unknown Skin Rash Unverified 12/04/20 22:26 peach Allergy Unverified 12/04/20 22:26 vancomycin Allergy Swelling/Ed Unverified 12/04/20 22:26 [place] budesonide [From Symbicort] AdvReac Skin Rash Unverified 12/04/20 22:26 formoterol [From Symbicort] AdvReac Skin Rash Unverified 12/04/20 22:26 General Stated Complaint: Chest Pain ROXANNE: 3 Review of Systems All systems reviewed & are unremarkable except as noted in HPI and below PFSH Medical History Acute lower UTI (urinary tract infection) (01/31/15) Pt reports possibly when she was little. She reports kidney stones. Depression affecting in first trimester, antepartum (04/17/15) Pt denies this. H/O pre-term labor (04/17/15) x2 Obstructive airway disease Skin cyst on head. Tachycardia Surgical History History of section Hx of wisdom tooth extraction S/P colonoscopy (~01/24/19) Family History Mother Mental disorder depresssion anxietty bipolar Asthma Father No problems noted. Sister No problems noted. Brother No problems noted. Other Diabetes Personal history of malignant neoplasm Social History Smoking/Tobacco Use Status: Never Smoking risk assessment performed?: Yes Alcohol Intake: current Alcohol Intake frequency: holidays/special occasions only Alcohol type: wine and hard liquor Drug use: Never Substance use type: does not use Current gender identity: female Do you feel safe at home: Yes Do you feel safe in your relationship?: Yes Exam Narrative Exam Narrative: 1.Const: Well-nourished, Well-developed, appearing stated age 2.Eyes: PERRL, no conjunctival injection, and symmetrical lids. 3.ENT: Atraumatic external nose and ears. Moist MM. Neck: Symmetric, trachea midline, No thyromegaly. 4.CVS: +S1/S2, No murmurs or gallops. Peripheral pulses 2+ and equal in all extremities. Brisk capillary refill in all extremities. 5.RESP: Unlabored respiratory effort. Clear to auscultation bilaterally. No wheezes rales or rhonchi 6.GI: Soft, Nontender/Nondistended, No hepatosplenomegaly. No guarding or rebound. 7.MSK: Normocephalic/Atraumatic, Extremities w/o deformity or ttp No cyanosis or clubbing, Normal movement of all extremities. No reproducible chest wall tenderness, no tenderness of the breast. No rashes or lesions to suggest shingles. 8.Skin: Warm, Dry. No rashes or lesions. 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 Sensation grossly intact, no focal neurologic deficits. 10.Psych: (AAO) x3. Appropriate mood and affect Course Vital Signs Vital signs: Vital Signs Temperature 36.9 C 12/04/20 22:17 Pulse 105 H 12/04/20 22:17 Respiratory Rate 18 12/04/20 22:17 Blood Pressure 129/83 12/04/20 22:17 Pulse Oximetry 99 12/04/20 22:17 Temperature 36.9 C 12/04/20 22:17 Temperature Source Oral 12/04/20 22:17 Pulse 105 H 12/04/20 22:17 Respiratory Rate 18 12/04/20 22:17 Respiratory Effort Non-Labored 12/04/20 22:27 Blood Pressure 129/83 12/04/20 22:17 Blood Pressure Position Sitting 12/04/20 22:17 Pulse Oximetry 99 12/04/20 22:17 Oxygen Delivery Method Room Air 12/04/20 22:17 Oxygen Flow Rate 0 12/04/20 22:17 Pain Level 9 12/04/20 22:17
[2020-12-04] MEDS: Normal Saline 1,000 ML 1000 ML IV (22:42)
[2020-12-04 22:58] LABS: Abs Immature Grans 0.03 10^3/uL (0.0-0.06); Absolute Basophil Count 0.04 10^3/uL (0.0-0.2); Absolute Eosinophil Count 0.29 10^3/uL (0.0-0.7); Absolute Lymphocyte Count 2.75 10^3/uL (1.2-3.4); Absolute Monocyte Count 0.45 10^3/uL (0.1-0.8); Absolute Neutrophil Count 4.78 10^3/uL (1.2-6.7); Basophils % 0.5; Eosinophils % 3.5; HCT 37.7 % (36.0-46.0); HGB 12.3 g/dL (11.2-15.7); Immature Grans % 0.4; MCH 27.7 pg (27.0-33.0); MCHC 32.6 % (32.0-36.0); MCV 84.9 fL (80-95); MPV 9.7 fL (8.0-11.0); Monocytes % 5.4; Neutrophils % 57.2; Nucleated RBC 0 %; Platelet Count 304 10^3/uL (130-400); RBC 4.44 10^6/uL (3.93-5.22); RDW 12.8 % (11.7-14.6); RDW-SD 39.5 fL; WBC 8.34 10^3/uL (4.4-10.8)
[2020-12-04 23:11] LABS: ALT 25 U/L (14-59); AST 20 U/L (15-37); Albumin 3.7 g/dL (3.4-5.0); Alkaline Phosphatase 54 U/L (46-116); Anion Gap 3.6 mmol/L (3-11); BUN 7 mg/dL (7-18); Bilirubin, Total 0.2 mg/dL (0.2-1.0); CO2 32.4 mmol/L (21.0-32.0); CREATININE 0.9 mg/dL (0.55-1.02); Calcium 8.6 mg/dL (8.5-10.1); Chloride 106 mmol/L (98-107); Glucose 105 mg/dL (74-106); Lipase 107 U/L (73-393); Potassium 3.4 mmol/L (3.5-5.1); Sodium 142 mmol/L (136-145); Total Protein 7.2 g/dL (6.4-8.2)
[2020-12-04 23:29] LABS: D-Dimer 191 ng/mlFEU (<500)
--- NOTE | 2020-12-04 23:30 | DI.RAD_ITS ---
Exam(s) XR CHEST 2V PA LATERAL EXAM: XR CHEST 2V PA LATERAL CLINICAL HISTORY: left chest pain. TECHNIQUE: 2D digital imaging was performed. COMPARISON: CR XR CHEST 2V PA LATERAL from 10/31/2017 FINDINGS: Heart size is normal. The mediastinum is not widened. Lungs are clear. No infiltrates nor pleural effusions. Chest leads in place IMPRESSION: No acute pulmonary findings. DATA REPOSITORY: RADIATION DOSE DELIVERED:
[2020-12-05 00:50] VITALS: BP 105/71; PULSE 86; RESP 16; O2SAT 98
--- NOTE | 2020-12-05 01:40 | DI.VRAD_ITS ---
PROCEDURE INFORMATION: Exam: XR Chest Exam date and time: 12/04/2020 23:34 Age: 30 years old Clinical indication: Left-sided; Patient HX: Left chest pain TECHNIQUE: Imaging protocol: XR of the chest. Views: 2 views. COMPARISON: CR XR CHEST 2V PA LATERAL 10/31/2017 09:23 FINDINGS: Lungs: Mild hyperinflation with minor central interstitial thickening. No airspace consolidation. Pleural spaces: No pleural effusion. No pneumothorax. Heart/Mediastinum: No cardiomegaly. Bones/joints: No acute fracture. IMPRESSION: Interstitial thickening may reflect bronchitis or atypical infection. Dictated and Authenticated by: Christine Man MD. Ordering:GONZALES Benavides MD
[2020-12-05 01:55] VITALS: BP 110/80; PULSE 85; RESP 16; TEMP 36.8; O2SAT 98
== END 2020-12-05 02:06 | disposition home or self-care (01) ==
PROVIDERS: Emergency Provider Student in an Organized Health Care Education/Training Program; PCP Nurse Practitioner Family
DX: R07.89 Other chest pain (principal); J20.9 Acute bronchitis, unspecified
CPT/HCPCS: 36415; 80053; 81025; 83690; 93005; 96361; 96374; 99285; 71046; 85025; 85379; 93010

== ENCOUNTER 2020-12-06 19:02 | Outpatient (REF) | payer OTHER, SELFPAY ==
[2020-12-08 14:03] LABS: COVID-19 RT-PCR UVMMC Result Negative (Negative)
== END 2020-12-06 19:03 | disposition home or self-care (01) ==
LOC: LBN 19:02
PROVIDERS: PCP Nurse Practitioner Family; Visit Provider Physician Assistant Medical
DX: Z20.822 Contact with and (suspected) exposure to COVID-19 (principal)
CPT/HCPCS: U0003

== ENCOUNTER 2021-01-25 12:35 | Outpatient (REF) | payer OTHER, SELFPAY ==
[2021-01-26 02:21] LABS: COVID-19 RT-PCR UVMMC Result Negative (Negative)
== END 2021-01-25 12:36 | disposition home or self-care (01) ==
LOC: NCHCN 12:35
PROVIDERS: PCP Nurse Practitioner Family; Visit Provider Family Medicine
DX: Z20.822 Contact with and (suspected) exposure to COVID-19 (principal)
CPT/HCPCS: U0003

== ENCOUNTER 2021-03-07 16:34 | Outpatient (REF) | payer OTHER, SELFPAY ==
[2021-03-08 16:40] LABS: COVID-19 RT-PCR UVMMC Result Negative (Negative)
== END 2021-03-07 16:35 | disposition home or self-care (01) ==
LOC: NCHCN 16:34
PROVIDERS: PCP Nurse Practitioner Family; Visit Provider Physician Assistant Medical
DX: Z20.822 Contact with and (suspected) exposure to COVID-19 (principal)
CPT/HCPCS: U0003

== ENCOUNTER 2021-03-08 11:53 | Outpatient (REF) | payer OTHER, SELFPAY ==
[2021-03-09 01:22] LABS: COVID-19 RT-PCR UVMMC Result Negative (Negative)
== END 2021-03-08 11:54 | disposition home or self-care (01) ==
LOC: LBN 11:53
PROVIDERS: PCP Nurse Practitioner Family; Visit Provider Physician Assistant Medical
DX: Z20.822 Contact with and (suspected) exposure to COVID-19 (principal)
CPT/HCPCS: U0003

== ENCOUNTER 2021-03-11 23:23 | Outpatient (REF) | payer OTHER, SELFPAY ==
[2021-03-12 01:02] LABS: COVID-19 RT-PCR UVMMC Result Negative (Negative)
== END 2021-03-11 23:24 | disposition home or self-care (01) ==
LOC: LBN 23:23
PROVIDERS: PCP Nurse Practitioner Family; Visit Provider Nurse Practitioner Family
DX: Z20.822 Contact with and (suspected) exposure to COVID-19 (principal)
CPT/HCPCS: U0003

== ENCOUNTER 2021-03-13 02:15 | Outpatient (CLI) | payer OTHER, SELFPAY ==
[2021-03-13 12:43] LABS: Kit/Specimen SENT
[2021-03-13 12:55] LABS: Abs Immature Grans 0.04 10^3/uL (0.0-0.06); Absolute Basophil Count 0.04 10^3/uL (0.0-0.2); Absolute Eosinophil Count 0.45 10^3/uL (0.0-0.7); Absolute Lymphocyte Count 1.94 10^3/uL (1.2-3.4); Absolute Neutrophil Count 6.34 10^3/uL (1.2-6.7); Basophils % 0.4; Eosinophils % 4.9; HCT 38.4 % (36.0-46.0); HGB 12.9 g/dL (11.2-15.7); Immature Grans % 0.4; Lymphocytes % 21.1; MCH 27.6 pg (27.0-33.0); MCHC 33.6 % (32.0-36.0); MCV 82.2 fL (80-95); MPV 10.2 fL (8.0-11.0); Monocytes % 4.3; Neutrophils % 68.9; Nucleated RBC 0 %; Platelet Count 248 10^3/uL (130-400); RBC 4.67 10^6/uL (3.93-5.22); RDW 13.4 % (11.7-14.6); WBC 9.21 10^3/uL (4.4-10.8)
[2021-03-14 09:17] LABS: Hepatitis B Surface Ag Negative (Negative)
[2021-03-14 09:52] LABS: Hepatitis C Ab w Rflx HCV PCR Negative (Negative)
[2021-03-14 10:17] LABS: HIV-1/2 Ag & Ab Screen Negative (Negative)
[2021-03-14 11:07] LABS: Varicella IgG Antibody Positive (See Note)
[2021-03-14 11:09] LABS: Rubella IgG Ab (UVM) Positive (See Note)
[2021-03-14 15:00] LABS: Syphilis Total Ab w/Reflex Nonreactive (Nonreactive)
[2021-03-15 18:55] LABS: Specimen WB Whole Blood
[2021-03-27 01:41] LABS: Result Summary NEGATIVE; Specimen WB Whole Blood
== END 2021-03-13 02:16 | disposition home or self-care (01) ==
LOC: LBO 02:15
PROVIDERS: Advanced Practice Midwife; Obstetrics & Gynecology; PCP Nurse Practitioner Family; Visit Provider Advanced Practice Midwife
DX: Z34.91 Encounter for supervision of normal pregnancy, unspecified, first trimester (principal)
CPT/HCPCS: 36415; 81329; 86787; 86803; 86850; 86900; 86901; 87340; 87389; 81220; 85025; 86762; 86780

== ENCOUNTER 2021-03-13 12:25 | Outpatient (REF) | payer OTHER, SELFPAY ==
--- NOTE | 2021-03-13 11:20 | PAPFT_PTH ---
PATIENT: Miya Merritt I LOC: [facility] U#:[id number] AGE/SX: 31/F ROOM: RE03/13/[address]: Sonya Franco DO : 1990 BED: DIS: 03/13/2021 SPEC #: [id number] RECD: 03/13/21 13:15 STATUS: ELANA REQ #: [id number] MATTIE: 03/13/21 11:[address]: Sonya Franco DEPT: [facility] Cytology RECD BY: Maryam King ENTERED: 03/13/21 13:16 SP TYPE: PAPFT OTHR DR: Nadja Doan Tissues: 1 - CX/ENDOCX FOR PAP SMEARS Procedures: PAP THIN PREP/[facility] Screening HPV DNA PROBE Comments: [id number] (CHLAMYDIA/GC)
[2021-03-13 15:56] LABS: *AMPHETAMINES SCREEN URINE Negative (Negative); *BARBITURATES SCREEN URINE Negative (Negative); *BENZODIAZEPINES SCREEN URINE Negative (Negative); Cannabinoids THC Negative (Negative); Cocaine Screen,Urine Negative (Negative); METHADONE URINE SCREEN Negative (Negative); OPIATES URINE SCREEN Negative (Negative); Tricyclic Antidepressants Negative (Negative)
[2021-03-14 16:38] LABS: Chlamydia Result Negative (Negative); GC Result Negative (Negative)
[2021-03-20 10:13] LABS: Buprenorphine Negative ng/mL (Cutoff: 5.0); Norbuprenorphine Negative ng/mL (Cutoff: 2.5)
== END 2021-03-13 12:26 | disposition home or self-care (01) ==
LOC: LBN 12:25
PROVIDERS: PCP Nurse Practitioner Family; Visit Provider Obstetrics & Gynecology
DX: Z34.91 Encounter for supervision of normal pregnancy, unspecified, first trimester (principal); Z12.4 Encounter for screening for malignant neoplasm of cervix; Z11.3 Encounter for screening for infections with a predominantly sexual mode of transmission; R87.612 Low grade squamous intraepithelial lesion on cytologic smear of cervix (LGSIL); R87.810 Cervical high risk human papillomavirus (HPV) DNA test positive
CPT/HCPCS: 80307; 87491; 87591; 88142; 87086; 87624

== ENCOUNTER 2021-04-03 00:44 | Outpatient (CLI) | payer OTHER, SELFPAY ==
[2021-04-03] MEDS: Normal Saline 250 ML 125 ML IV (08:20)
[2021-04-03 08:31] VITALS: TEMP 36.4
[2021-04-03 08:37] VITALS: BP 116/79; PULSE 112; RESP 18; TEMP 36.4; O2SAT 99
[2021-04-03 10:10] VITALS: BP 106/72; PULSE 100; RESP 18; TEMP 37.3; O2SAT 98
== END 2021-04-03 00:45 | disposition home or self-care (01) ==
PROVIDERS: PCP Nurse Practitioner Family; Visit Provider Family Medicine
DX: U07.1 COVID-19 (principal)
CPT/HCPCS: 96365; Q0047

== ENCOUNTER 2021-05-22 07:54 | Emergency (ER) | payer MEDICAID, SELFPAY ==
--- NOTE | 2021-05-22 08:00 | RT.EKG_ITS ---
APPROVED REPORT Exam: Resting ECG Reason for Exam: tachycardia Patient Location: E HR:99 bpm ECG Measurements Heart Rate 99 AXIS IN 126 P 40 QRSd 69 QRS 65 QT 346 T 42 QTc 445 Conclusion Sinus rhythm...normal P axis, V-rate 60- 99. Sinus. Normal axis. No STEMI. I have reviewed and interpreted ECG and agree with software generated interpretation.
[2021-05-22 08:01] VITALS: BP 121/81; PULSE 108; RESP 16; TEMP 36.7; O2SAT 100
[2021-05-22 08:07] VITALS: RESP 16
[2021-05-22 08:46] LABS: Abs Immature Grans 0.06 10^3/uL (0.0-0.06); Absolute Basophil Count 0.05 10^3/uL (0.0-0.2); Absolute Eosinophil Count 0.44 10^3/uL (0.0-0.7); Absolute Lymphocyte Count 1.63 10^3/uL (1.2-3.4); Absolute Monocyte Count 0.44 10^3/uL (0.1-0.8); Absolute Neutrophil Count 6.66 10^3/uL (1.2-6.7); Basophils % 0.5; Eosinophils % 4.7; HCT 32.8 % (36.0-46.0); HGB 10.8 g/dL (11.2-15.7); Immature Grans % 0.6; Lymphocytes % 17.6; MCH 27.6 pg (27.0-33.0); MCHC 32.9 % (32.0-36.0); MCV 83.7 fL (80-95); MPV 10.7 fL (8.0-11.0); Monocytes % 4.7; Neutrophils % 71.9; Nucleated RBC 0 %; Platelet Count 213 10^3/uL (130-400); RBC 3.92 10^6/uL (3.93-5.22); RDW 12.6 % (11.7-14.6); RDW-SD 38.5 fL; WBC 9.28 10^3/uL (4.4-10.8)
--- NOTE | 2021-05-22 08:49 | ED.GENADUL_ITS ---
Discharge Plan Disposition Patient Disposition: HOME Condition: Stable Discharge Details Clinical Impression: Bilateral arm pain, Primary Care Provider: Nadja Doan ED Provider: Maryam Saldivar Home Meds and New Rx's Prescriptions: New cyclobenzaprine 5 mg tablet 5 mg PO TID PRNQty: 10 0RF Continued Children Multivitamin Tablet,Chewable 2 tab PO DAILY 0RF albuterol sulfate [ProAir HFA] 200 PUFF HFA aerosol inhaler 2 puff Inhalation Q4H PRN PRN (Reason: Wheezing) Qty: 1 0RF montelukast 10 mg Tablet 10 mg PO QPM 0RF Trelegy Ellipta 100-62.5-25 mcg Blister With Device 1 inh INHALATION DAILY 0RF Discharge Instructions Instructions: (ED) Additional Instructions: Continue to take Tylenol as needed for pain, do not take for longer than 3 days in a row You may take Flexeril, 5 mg every 8 hours as needed for discomfort This medication is considered to be a category B and safe during You may also apply ice to your arms Should you have new or worsening complaints, my recommendation is to be reassessed in the emergency department recheck in 48 hours with pcp Stand Alone Forms: Work Release Referrals: Nadja Doan [Primary Care Provider] - Medical Decision Making Patient appears well, she has no evidence of rhabdomyolysis, her diagnostic labs are reassuring, she is mildly anemic, she is made aware regarding this finding calcium is very low, she will take calcium supplement and follow-up with her [employer] I did consult with Dr. Franco, on-call for [employer] regarding additional assessment at this time and she does not feel any additional medical exam is warranted at this time from an OB standpoint recommend follow-up with PCP No clinical evidence of DVT and clinically suspicion is low given a bilateral acute onset without obvious swelling and reproducible pain over the brachioradialis muscle Neurovascularly she is intact with a negative Cordell test No evidence carpal tunnel syndrome clinically I, Flexeril which is category B, and Tylenol for no more than 3 days recommended Close outpatient follow-up with PCP recommended Did consider pulmonary embolism and more ominous causes of discomfort including cervical radiculopathy, however this is considered less likely given given her clinical exam findings Medical Records Medical records reviewed: Yes I reviewed the patient's medical records. Lab Data Lab results reviewed: Yes I reviewed the patient's lab results. ECG Data Prior ECG tracings: available for review HPI General Date/Time Provider Initiated Documentation: 05/22/21 08:14 . HPI Narrative: This 31-year-old female with past medical history of asthma and , presents with report of bilateral forearm pain which started yesterday morning when she awoke. She denies any known traumatic injury. She denies any chest pain, short of breath, weakness, numbness, tingling. She denies any cervical discomfort or headache. She denies any abdominal pain or vaginal bleeding. This is complicated by the fact that she is 20 weeks . She had a normal to date actually had exam yesterday which showed mild per patient. She is 3 para 2. Symptoms are reportedly exacerbated with dependent position and she describes the pain as cramping pain she denies prior history of coagulopathy. She denies any fever or chills. She states she had a similar episode a couple of months ago prior to being that resolved after 1 day and ibuprofen use. She states having to travel today. Related Data Home Medications Medication Instructions Recorded Confirmed albuterol sulfate 90 mcg/actuation 2 puff INHALATION Q4H PRN PRN #1 04/19/17 05/22/21 aerosol inhaler (ProAir HFA) inh montelukast 10 mg tablet 10 mg PO QPM 03/16/18 05/22/21 fluticasone fur. 100 mcg-umeclid 1 inh INHALATION DAILY 12/04/20 05/22/21 62.5 mcg-vilant 25 mcg inhalat.powder (Trelegy Ellipta) pediatric multivitamin no.136 2 tab PO DAILY tab 01/30/21 05/22/21 (Children Multivitamin) cyclobenzaprine 5 mg tablet 5 mg PO TID PRN #10 tab 05/22/21 Previous Rx's Medication Instructions Recorded albuterol sulfate 90 mcg/actuation 2 puff INHALATION Q4H PRN PRN #1 04/19/17 aerosol inhaler (ProAir HFA) inh cyclobenzaprine 5 mg tablet 5 mg PO TID PRN #10 tab 05/22/21 Allergies Allergy/AdvReac Type Severity Reaction Status Date / Time banana Allergy Unknown Skin Rash Verified 05/22/21 08:06 peach Allergy Verified 05/22/21 08:06 vancomycin Allergy Swelling/Ed Verified 05/22/21 08:06 [place]ondon budesonide [From Symbicort] AdvReac Skin Rash Verified 05/22/21 08:06 formoterol [From Symbicort] AdvReac Skin Rash Verified 05/22/21 08:06 General Stated Complaint: GenMedical ROXANNE: 4 Review of Systems All systems reviewed & are unremarkable except as noted in HPI and below PFSH All Active Problems (Updated 05/22/21 @ 10:42 by TRISHA Alvares) Bilateral arm pain (Acute) (Acute) Asthma (Chronic) LGSIL on Pap smear of cervix (Acute) 2019 and 2021. Needs colpo in and 6 week post Migraine headache with aura (Acute) (Acute) Tachycardia (Acute) Medical History (Updated 05/22/21 @ 10:42 by TRISHA Alvares) Asthma COVID-19 affecting in first trimester Depression affecting in first trimester, antepartum (04/17/15) Pt denies this. H/O pre-term labor (04/17/15) 37 and 28wk deliveries Nondisplaced fracture of left ulna styloid process, initial encounter for closed fracture Seasonal allergies Surgical History History of section 28 weeks. Cord prolapse. 2 layer closure. 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 Date GA/Weeks # Outcome Route Wgt Sex Labor Lgth Anesthes ia Location Prov Complic 06/23/09 37 No Successful vaginal Female [facility] 09/03/15 28 No Successful Female [facility] cord accident Delivery Date: 06/23/09 Last Updated by: Peggy Steen M.D. went into labor at 32- 33 weeks, stayed at [facility] until 35wks, came home then had water broken at [facility] due to dilation of 5 cm at 37 weeks. Delivery Date: 09/03/15 Last Updated by: Peggy Steen M.D. Pt went into labor, had a cord prolapse which led to emergent c- section Exam Const General: cooperative Orientation: alert, awake and oriented x3 Neck Other: No midline tenderness Resp Effort & Inspection: normal respiratory effort Auscultation: clear to auscultation bilaterally Cardio Rate: regular rate Rhythm: regular rhythm GI Other: No abdominal tenderness Skin General skin exam: no rashes or lesions noted Neuro General: patient alert and patient oriented x3 Other: Strength and sensation intact distally Extrem Other: Tenderness noted over the brachioradialis muscle, x-ray exacerbated in wrist extension and reproducible discomfort in this area, distal pulses intact cap refill intact, sensation and strength intact, specifically hand grasp intact, no firmness of compartment or evidence compartment syndrome Negative Cordell test Course Vital Signs Vital signs: Vital Signs Temperature 36.7 C 05/22/21 08:01 Pulse 108 H 05/22/21 08:01 Respiratory Rate 16 05/22/21 08:01 Blood Pressure 121/81 05/22/21 08:01 Pulse Oximetry 100 05/22/21 08:01 Temperature 36.7 C 05/22/21 08:01 Temperature Source Skin 05/22/21 08:01 Pulse 108 H 05/22/21 08:01 Respiratory Rate 16 05/22/21 08:07 Respiratory Effort 05/22/21 08:07 Respiratory Depth Normal 05/22/21 08:07 Respiratory Pattern Normal 05/22/21 08:07 Blood Pressure 121/81 05/22/21 08:01 Blood Pressure Position Sitting 05/22/21 08:01 Pulse Oximetry 100 05/22/21 08:01 Oxygen Delivery Method Room Air 05/22/21 08:01 Oxygen Flow Rate 0 05/22/21 08:01 Pain Level 7 05/22/21 08:01 Lab/Test Results Lab/Test Results: Laboratory Tests Range/Units 05/22/21 08:40 WBC (4.4-10.8) 10^3/uL 9.28 RBC (3.93-5.22) 10^6/uL 3.92 L Hgb (11.2-15.7) g/dL 10.8 L Hct (36.0-46.0) % 32.8 L MCV (80-95) fL 83.7 MCH (27.0-33.0) pg 27.6 MCHC (32.0-36.0) % 32.9 RDW (11.7-14.6) % 12.6 Plt Count (130-400) 10^3/uL 213 MPV (8.0-11.0) fL 10.7 Immature Gran % 0.6 Neutrophils % 71.9 Lymphocytes % 17.6 Monocytes % 4.7 Eosinophils % 4.7 Basophils % 0.5 Nucleated RBC % % 0 Absolute Neutrophils (1.2-6.7) 10^3/uL 6.66 Absolute Lymphocytes (1.2-3.4) 10^3/uL 1.63 Absolute Monocytes (0.1-0.8) 10^3/uL 0.44 Absolute Eosinophils (0.0-0.7) 10^3/uL 0.44 Absolute Basophils (0.0-0.2) 10^3/uL 0.05
[2021-05-22 10:02] LABS: ALT 15 U/L (14-59); AST 11 U/L (15-37); Albumin 2.8 g/dL (3.4-5.0); Alkaline Phosphatase 66 U/L (46-116); Anion Gap 9.5 mmol/L (3-11); BUN 4 mg/dL (7-18); Bilirubin, Total 0.2 mg/dL (0.2-1.0); CO2 23.5 mmol/L (21.0-32.0); CREATININE 0.7 mg/dL (0.55-1.02); Chloride 104 mmol/L (98-107); Creatine Kinase 53 U/L (26-192); Glucose 87 mg/dL (74-106); Magnesium 2.1 mg/dL (1.8-2.4); Potassium 3.5 mmol/L (3.5-5.1); Sodium 137 mmol/L (136-145); Total Protein 6.8 g/dL (6.4-8.2); Troponin I < 50 ng/L (<or=60)
[2021-05-22 10:03] LABS: Calcium 8.1 mg/dL (8.5-10.1)
[2021-05-22 10:56] VITALS: BP 109/64; PULSE 94; RESP 18; TEMP 36.8; O2SAT 98
== END 2021-05-22 10:52 | disposition home or self-care (01) ==
PROVIDERS: Emergency Provider Physician Assistant; PCP Nurse Practitioner Family
DX: O26.892 Other specified pregnancy related conditions, second trimester (principal); Z3A.20 20 weeks gestation of pregnancy; M79.632 Pain in left forearm; E83.51 Hypocalcemia; R00.0 Tachycardia, unspecified; M79.631 Pain in right forearm
CPT/HCPCS: 36415; 80053; 82550; 93005; 99283; 83735; 84484; 85025; 93010

== ENCOUNTER 2021-07-02 21:02 | Inpatient (IN) | payer MEDICAID, SELFPAY ==
[2021-07-02 21:05] VITALS: PULSE 122; RESP 24; O2SAT 100
--- NOTE | 2021-07-02 21:07 | W.ED.GENAD ---
Discharge Plan Disposition Patient Disposition: [facility] INPATIENT Condition: Stable Discharge Details Clinical Impression: Acute asthma exacerbation, Primary Care Provider: Nadja Doan ED Provider: Jose G Gamez Home Meds and New Rx's Prescriptions: No Action Children Multivitamin Tablet,Chewable 2 tab PO DAILY 0RF albuterol sulfate [ProAir HFA] 200 PUFF HFA aerosol inhaler 2 puff Inhalation Q4H PRN PRN (Reason: Wheezing) Qty: 1 0RF montelukast 10 mg Tablet 10 mg PO QPM 0RF Trelegy Ellipta 100-62.5-25 mcg Blister With Device 1 inh INHALATION DAILY 0RF cyclobenzaprine 5 mg tablet 5 mg PO TID PRNQty: 10 0RF Medical Decision Making Patient presenting to the ED with asthma exacerbation secondary to being out of her maintenance inhaler for 2 weeks now she is 26 weeks . She is using her rescue inhaler every 2-3 hours. She is tachycardic and tachypneic but is not in any distress. She will require admission. IV established and laboratory studies sent. EKG obtained. No chest x-ray at this time. Case discussed with OB and with hospitalist. Patient will receive Solu-Medrol, DuoNeb, albuterol. heart rate is good here. Patient to receive NST once upstairs. EKG is sinus tachycardia otherwise normal. COVID pending. CBC with expected anemia. BMP still pending. Patient has been stable in the department and is admitted to hospitalist service with OB consult. Lab Data Lab results reviewed: Yes I reviewed the patient's lab results. ECG Data Attestation: I personally reviewed and interpreted this ECG (s) as follows: Prior ECG tracings: available for review Interpretation: see EKG HPI General Mode of arrival: ambulatory. Date/Time Provider Initiated Documentation: 07/02/21 21:07. Limitations to Documentation: no limitations. Information obtained by: patient, RN notes reviewed and old records reviewed. HPI Narrative: Patient presents to ED with complaint of asthma exacerbation. Patient has been out of her maintenance inhaler, Trelegy, for 2 weeks now. At this point she is having issues with insurance authorizing it. She is 26 weeks . She is using her inhaler and neb every 2-3 hours. She denies having any URI type symptoms, specifically denies fever, congestion, sore throat. She does have cough, shortness of breath, wheezing. Denies chest pain. She has had no vaginal discharge or bleeding. She still feels baby moving normally. Related Data Home Medications Medication Instructions Recorded Confirmed albuterol sulfate 90 mcg/actuation 2 puff INHALATION Q4H PRN PRN #1 04/19/17 05/22/21 aerosol inhaler (ProAir HFA) inh montelukast 10 mg tablet 10 mg PO QPM 03/16/18 05/22/21 fluticasone fur. 100 mcg-umeclid 1 inh INHALATION DAILY 12/04/20 05/22/21 62.5 mcg-vilant 25 mcg inhalat.powder (Trelegy Ellipta) pediatric multivitamin no.136 2 tab PO DAILY tab 01/30/21 05/22/21 (Children Multivitamin) cyclobenzaprine 5 mg tablet 5 mg PO TID PRN #10 tab 05/22/21 Previous Rx's Medication Instructions Recorded albuterol sulfate 90 mcg/actuation 2 puff INHALATION Q4H PRN PRN #1 04/19/17 aerosol inhaler (ProAir HFA) inh cyclobenzaprine 5 mg tablet 5 mg PO TID PRN #10 tab 05/22/21 Allergies Allergy/AdvReac Type Severity Reaction Status Date / Time banana Allergy Unknown Skin Rash Verified 06/25/21 13:10 peach Allergy Verified 06/25/21 13:10 vancomycin Allergy Swelling/Ed Verified 06/25/21 13:10 [place] budesonide [From Symbicort] AdvReac Skin Rash Verified 06/25/21 13:10 formoterol [From Symbicort] AdvReac Skin Rash Verified 06/25/21 13:10 General ROXANNE: 4 Review of Systems Narrative: 12/06 Review of Systems completed and is negative except as stated above in HPI (Systems reviewed: Const, Eyes, ENT, Resp, CV, GI, , MSK, Skin, Neuro) PFSH All Active Problems (Updated 07/02/21 @ 22:30 by Jose G Gamez MD) Acute asthma exacerbation (Acute) Hx of delivery, currently (Acute) Asthma (Chronic) LGSIL on Pap smear of cervix (Acute) 2019 and 2021. Needs colpo in and 6 week post Migraine headache with aura (Acute) (Acute) Tachycardia (Acute) Medical History Asthma COVID-19 affecting in first trimester Depression affecting in first trimester, antepartum (04/17/15) Pt denies this. H/O pre-term labor (04/17/15) 37 and 28wk deliveries Nondisplaced fracture of left ulna styloid process, initial encounter for closed fracture Seasonal allergies Surgical History History of section 28 weeks. Cord prolapse. 2 layer closure. 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 Date GA/Weeks # Outcome Route Wgt Sex Labor Lgth Anesthesia Location Prov Complic 06/23/09 37 No Successful vaginal Female [facility] 09/03/15 28 No Successful Female [facility] cord accident Delivery Date: 06/23/09 Last Updated by: Peggy Steen M.D. went into labor at 32- 33 weeks, stayed at [facility] until 35wks, came home then had water broken at [facility] due to dilation of 5 cm at 37 weeks. Delivery Date: 09/03/15 Last Updated by: Peggy Steen M.D. Pt went into labor, had a cord prolapse which led to emergent Exam Narrative Exam Narrative: Const: WDWN female in NAD. HEENT: NC/AT. Normal facial exam. Eyes: Normal conjunctiva and sclera. Neck: Supple. Trachea midline. Lungs: Normal respiratory effort but tachypneic. Decreased movement of air with wheezing throughout Cor: RRR without murmur/gallop. Tachycardic. Good radial pulses. GI: Soft. NT/ND. Gravid. Neuro: A+O x 3. Normal speech, mentation, gait. Cranial nerves II - XII grossly intact. No gross motor or sensory deficit. Ext: No C/C/E. Skin: Warm and dry without rash.
[2021-07-02 21:13] VITALS: BP 139/70
--- NOTE | 2021-07-02 21:15 | RT.EKG_ITS ---
APPROVED REPORT Exam: Resting ECG Reason for Exam: tachycardia Patient Location: E HR:110 bpm ECG Measurements Heart Rate 110 AXIS HI 113 P 73 QRSd 77 QRS 61 QT 332 T 28 QTc 450 Conclusion Sinus tachycardia...rate> 99 Normal [place] Otherwise normal ECG
[2021-07-02] MEDS: Albuterol/Ipratropium 3 ML UPD VIAL UPD (21:46)
[2021-07-02] MEDS: Albuterol 2.5 MG/3 ML INH SOLN VIAL UPD (21:47)
[2021-07-02] MEDS: methylPREDNISolone SUCC 125 MG VIAL IVP (21:50)
[2021-07-02 21:54] LABS: Abs Immature Grans 0.09 10^3/uL (0.0-0.06); Absolute Basophil Count 0.04 10^3/uL (0.0-0.2); Absolute Eosinophil Count 0.65 10^3/uL (0.0-0.7); Absolute Lymphocyte Count 2.27 10^3/uL (1.2-3.4); Absolute Monocyte Count 0.63 10^3/uL (0.1-0.8); Basophils % 0.4; HGB 10.6 g/dL (11.2-15.7); Immature Grans % 0.8; Lymphocytes % 20.9; MCH 25.5 pg (27.0-33.0); MCHC 32.1 % (32.0-36.0); MCV 80 fL (80-95); MPV 11.2 fL (8.0-11.0); Monocytes % 5.8; Neutrophils % 66.1; Platelet Count 226 10^3/uL (130-400); RBC 4.15 10^6/uL (3.93-5.22); RDW 13.1 % (11.7-14.6); RDW-SD 37.1 fL; WBC 10.84 10^3/uL (4.4-10.8)
[2021-07-02 21:55] LABS: Absolute Neutrophil Count 7.17 10^3/uL (1.2-6.7)
[2021-07-02 22:15] LABS: Source Nasal/Nares
[2021-07-02 22:37] LABS: Anion Gap 8.9 mmol/L (3-11); BUN 5 mg/dL (7-18); CO2 25.1 mmol/L (21.0-32.0); CREATININE 0.7 mg/dL (0.55-1.02); Calcium 8.5 mg/dL (8.5-10.1); Chloride 103 mmol/L (98-107); Glucose 119 mg/dL (74-106); Potassium 3.2 mmol/L (3.5-5.1); Sodium 137 mmol/L (136-145)
[2021-07-02 22:57] LABS: COVID-19 PCR Negative (Negative)
[2021-07-02 23:25] VITALS: BP 108/71; PULSE 115; RESP 20; TEMP 36.6; O2SAT 98
[2021-07-02 23:35] VITALS: BP 108/71; PULSE 115; RESP 18; TEMP 36.6; O2SAT 98
[2021-07-03] MEDS: Acetaminophen 325 MG TAB 650 MG PO (01:07)
[2021-07-03 03:54] VITALS: BP 107/70; PULSE 103; RESP 17; TEMP 37; O2SAT 99
[2021-07-03] MEDS: Calcium Carbonate *TUMS* 500 MG CHEW PO (06:39)
[2021-07-03 06:44] LABS: Anion Gap 12.4 mmol/L (3-11); BUN 5 mg/dL (7-18); CO2 21.6 mmol/L (21.0-32.0); CREATININE 0.7 mg/dL (0.55-1.02); Calcium 8.4 mg/dL (8.5-10.1); Chloride 103 mmol/L (98-107); Glucose 144 mg/dL (74-106); Potassium 3.6 mmol/L (3.5-5.1); Sodium 137 mmol/L (136-145)
[2021-07-03 07:43] VITALS: BP 111/69; PULSE 109; RESP 16; TEMP 37; O2SAT 98
[2021-07-03] MEDS: predniSONE 20 MG TAB 40 MG PO (08:11)
--- NOTE | 2021-07-03 08:41 | W.PM.HP.N ---
Date of service: 07/02/21 Time of Service: 21:00 Assessment and Plan Assessment and plan (1) Acute asthma exacerbation: Status: Acute Assessment and plan: She will be continued on albuterol nebulizers or updraft as needed. She will be started on oral prednisone. Her Trelegy will be ordered. (2) Hx of delivery, currently : Status: Acute Assessment and plan: Her status appears to be stable at this time. Obstetrical consultation was obtained in the emergency department by the emergency physician. A nonstress test will be done on her. History of Present Illness History of Present Illness Chief Complaint: dyspnea Narrative: This 31-year-old female is currently 26 weeks . She is here because of shortness of breath. She has a history of asthma for many years and has never been hospitalized for this in the past. She has been treated with Trelegy for the last 4 years and has done well with this however in the last few weeks her insurance company is required a prior authorization for this medicine and this is caused her not to have the medicine available to use. She been using her nebulizer of albuterol more frequently but in spite of that her shortness of breath has gotten worse and her albuterol has not been working very well. She has had increased cough and vomited once because of the cough earlier in the day. She is feeling well otherwise. is going along well without complications. She does not use tobacco or alcohol. She does get exposed to coronavirus at work but has had no fevers, chills or other symptoms of COVID. 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 She presented to the emergency department and was given Solu-Medrol and DuoNeb and albuterol nebulizer. Admission was recommended. Obstetrics was consulted and they recommended that she be admitted to the medicine service with OB consultation. She is immunized for COVID and did suffer from COVID in March of this year. Review of Systems Constitutional Constitutional: Denies chills, Denies fatigue and Denies fever(s) ENT Ears, Nose, Mouth, and Throat: Denies change in voice, Denies dysphagia, Denies nasal congestion and Denies nasal discharge Cardiovascular Cardiovascular: Denies chest pain, Denies leg edema, Reports dyspnea, Reports dyspnea on exertion and Denies slow heart rate Respiratory Respiratory: Denies chest congestion, Denies cough, Reports dyspnea and Reports dyspnea on exertion Gastrointestinal Gastrointestinal: Denies dysphagia, Denies heartburn, Denies diarrhea, Reports nausea and Reports vomiting Genitourinary Genitourinary: Denies urinary frequency, Denies difficulty voiding and Reports other (26week gestation) Endocrine Endocrine: Denies fatigue PFSH All Active Problems (Updated 07/02/21 @ 22:30 by Jose G Gamez MD) Acute asthma exacerbation (Acute) Hx of delivery, currently (Acute) Asthma (Chronic) LGSIL on Pap smear of cervix (Acute) 2019 and 2021. Needs colpo in and 6 week post Migraine headache with aura (Acute) (Acute) Tachycardia (Acute) Medical History Asthma COVID-19 affecting in first trimester Depression affecting in first trimester, antepartum (04/17/15) Pt denies this. H/O pre-term labor (04/17/15) 37 and 28wk deliveries Nondisplaced fracture of left ulna styloid process, initial encounter for closed fracture Seasonal allergies Surgical History History of section 28 weeks. Cord prolapse. 2 layer closure. 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 Date GA/Weeks # Outcome Route Wgt Sex Labor Lgth Anesthesia Location Prov Complic 06/23/09 37 No Successful vaginal Female [facility] 09/03/15 28 No Successful Female [facility] cord accident Delivery Date: 06/23/09 Last Updated by: Peggy Steen M.D. went into labor at 32- 33 weeks, stayed at [facility] until 35wks, came home then had water broken at [facility] due to dilation of 5 cm at 37 weeks. Delivery Date: 09/03/15 Last Updated by: Peggy Steen M.D. Pt went into labor, had a cord prolapse which led to emergent Meds Allergies and Home Medications Allergies Allergy/AdvReac Type Severity Reaction Status Date / Time banana Allergy Unknown Skin Rash Verified 07/02/21 23:09 peach Allergy Verified 07/02/21 23:09 vancomycin Allergy Swelling/Ed Verified 07/02/21 23:09 [place] budesonide [From Symbicort] AdvReac Skin Rash Verified 07/02/21 23:09 formoterol [From Symbicort] AdvReac Skin Rash Verified 07/02/21 23:09 Home Medications Medication Instructions Recorded Confirmed Type albuterol sulfate 90 mcg/actuation 2 puff INHALATION Q4H PRN PRN #1 04/19/17 07/02/21 Rx aerosol inhaler (ProAir HFA) inh montelukast 10 mg tablet 10 mg PO QPM 03/16/18 07/02/21 History fluticasone fur. 100 mcg-umeclid 1 inh INHALATION DAILY 12/04/20 07/02/21 History 62.5 mcg-vilant 25 mcg inhalat.powder (Trelegy Ellipta) pediatric multivitamin no.136 2 tab PO DAILY tab 01/30/21 07/02/21 History (Children Multivitamin) cyclobenzaprine 5 mg tablet 5 mg PO TID PRN #10 tab 05/22/21 Rx Exam Const General: cooperative, healthy appearing, comfortable, not ill appearing and not lethargic Nutritional Appearance: average body habitus and well nourished Orientation: alert, awake and oriented x3 HENMT Head: normal to inspection Mouth: oral mucosae normal and moist mucous membranes Neck Neck: normal visual inspection, no lymphadenopathy, no meningeal signs and no JVD Resp Auscultation: clear to auscultation bilaterally, no rhonchi and no wheezes Cardio Rate: regular rate Rhythm: regular rhythm GI Palpation: soft, no hepatosplenomegaly and other (26 week , non tender, no palp contractions.) Extrem General: normal to inspection, calf tenderness and no edema Results Labs Result diagrams: 07/02/21 21:39 07/03/21 05:11 Labs: Laboratory Results - last 24 hr 07/02/21 07/02/21 07/02/21 21:39 21:39 22:09 WBC 10.84 H RBC 4.15 Hgb 10.6 L Hct 33.0 L MCV 80 MCH 25.5 L MCHC 32.1 RDW 13.1 Plt Count 226 MPV 11.2 H Immature Gran % 0.8 Neutrophils % 66.1 Lymphocytes % 20.9 Monocytes % 5.8 Eosinophils % 6.0 Basophils % 0.4 Nucleated RBC % 0.0 Absolute Neutrophils 7.17 H Absolute Lymphocytes 2.27 Absolute Monocytes 0.63 Absolute Eosinophils 0.65 Absolute Basophils 0.04 Sodium 137 Potassium 3.2 L Chloride 103 Carbon Dioxide 25.1 Anion Gap 8.9 BUN 5 L Creatinine 0.7 Estimated GFR/1.73 m2 >= 60.00 Glucose 119 H Calcium 8.5 COVID-19 Source Nasal/Nares SARS-CoV-2 (PCR) Negative 07/03/21 05:11 WBC RBC Hgb Hct MCV MCH MCHC RDW Plt Count MPV Immature Gran % Neutrophils % Lymphocytes % Monocytes % Eosinophils % Basophils % Nucleated RBC % Absolute Neutrophils Absolute Lymphocytes Absolute Monocytes Absolute Eosinophils Absolute Basophils Sodium 137 Potassium 3.6 Chloride 103 Carbon Dioxide 21.6 Anion Gap 12.4 H BUN 5 L Creatinine 0.7 Estimated GFR/1.73 m2 >= 60.00 Glucose 144 H Calcium 8.4 L COVID-19 Source SARS-CoV-2 (PCR) Last Vital Signs Temp 37 C 07/03/21 07:43 Pulse 109 H 07/03/21 07:43 Resp 16 07/03/21 07:43 BP 111/69 07/03/21 07:43 Pulse Ox 98 07/03/21 07:43
--- NOTE | 2021-07-03 09:44 | HPE_ITS ---
Date of service: 07/03/21 Time of Service: 12:46 Assessment and Plan Assessment and plan (1) Acute asthma exacerbation: Status: Acute Assessment and plan: Patient is currently 26 weeks estimated stational age with an acute exacerbation of asthma symptoms secondary to being unable to access her ICS-LABA medication for the past 2 weeks secondary to insurance issues. Her symptoms are currently improving with steroid taper. In order for the patient to have her asthma controlled for the rest of the we need to find a medication regime that is acceptable to her insurance provider. Appreciate input from bridge welder and hospitalist in care of the patient. (2) : Status: Acute Assessment and plan: Patient currently 26 W3D EGA with reactive NST last evening and heart tones auscultated by [place] this morning. No evidence of uterine contractions. The plan is to continue expectant management while she was remains hospitalized and to see her every 2 weeks and follow-up after discharge. We will continue to follow her during her hospitalization. History of Present Illness History of Present Illness Chief Complaint: Acute asthma exacerbation at 26w EGA. Consults Consult date: 07/03/21 Requesting physician: Elana Harris Narrative: This is a 31 yo female with a ZITA of 26w3d EGA with ZITA of 10/09/21 as determined by LMP and confirmed by 1st trimester OB u/s who presented to [facility] ED yesterday evening with wheezing and shortness of breath after Albuterol nebulizer was ineffective at maximum dosing to control her symptoms. She was admitted for started on PO steroids, continued on Albuterol nebulizer treatment had had Trelegy restarted. course: After she established care at [facility] she was evaluated by Dr. Newberry on 05/21/21 who recommended that she continue on Breo 200, Zyrtec and Singular along with Spiriva if needed. She changed her insurance carrier and subsequently changed from Breo to Trelegy which was not covered without a prior authorization. Pt had been without her medication for 2 weeks prior to her arrival in ED. Hx of Covid infection after vaccination. She has not had any other exacerbations of chronic health issues. Review of Systems Narrative: Wheezing has decreased and feels less short of breath since arrival. Cardiovascular Cardiovascular: Reports dyspnea Respiratory Respiratory: Reports cough, Reports dyspnea, Reports wheezing and Reports other (All symptoms have improved since she she arrived at the hospital) Gastrointestinal Gastrointestinal: Denies abdominal pain and Reports nausea (Patient experienced significant nausea and vomiting with exacerbated) Genitourinary Comments: Patient reports mild uterine tightening. No vaginal bleeding. Musculoskeletal Comments: No lower extremity knots or cords Psychiatric Comments: Pain less anxious now that she has been hospitalized Allergic/Immunologic Allergic/Immunologic: Reports wheezing PFSH All Active Problems (Updated 07/02/21 @ 22:30 by Jose G Gamez MD) Acute asthma exacerbation (Acute) Hx of delivery, currently (Acute) Asthma (Chronic) LGSIL on Pap smear of cervix (Acute) 2019 and 2021. Needs colpo in and 6 week post Migraine headache with aura (Acute) (Acute) Tachycardia (Acute) Medical History Asthma COVID-19 affecting in first trimester Depression affecting in first trimester, antepartum (04/17/15) Pt denies this. H/O pre-term labor (04/17/15) 37 and 28wk deliveries Nondisplaced fracture of left ulna styloid process, initial encounter for closed fracture Seasonal allergies Surgical History History of section 28 weeks. Cord prolapse. 2 layer closure. 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 Date GA/Weeks # Outcome Route Wgt Sex Labor Lgth Anesthes ia Location Prov Complic 06/23/09 37 No Successful vaginal Female [facility] 09/03/15 28 No Successful Female [facility] cord accident Delivery Date: 06/23/09 Last Updated by: Peggy Steen M.D. went into labor at 32- 33 weeks, stayed at [facility] until 35wks, came home then had water broken at [facility] due to dilation of 5 cm at 37 weeks. Delivery Date: 09/03/15 Last Updated by: Peggy Steen M.D. Pt went into labor, had a cord prolapse which led to emergent c- section Meds Allergies and Home Medications Allergies Allergy/AdvReac Type Severity Reaction Status Date / Time banana Allergy Unknown Skin Rash Verified 07/02/21 23:09 peach Allergy Verified 07/02/21 23:09 vancomycin Allergy Swelling/Ed Verified 07/02/21 23:09 [place] budesonide [From Symbicort] AdvReac Skin Rash Verified 07/02/21 23:09 formoterol [From Symbicort] AdvReac Skin Rash Verified 07/02/21 23:09 Home Medications Medication Instructions Recorded Confirmed Type albuterol sulfate 90 mcg/actuation 2 puff INHALATION Q4H PRN PRN #1 04/19/17 07/02/21 Rx aerosol inhaler (ProAir HFA) inh montelukast 10 mg tablet 10 mg PO QPM 03/16/18 07/02/21 History fluticasone fur. 100 mcg-umeclid 1 inh INHALATION DAILY 12/04/20 07/02/21 History 62.5 mcg-vilant 25 mcg inhalat.powder (Trelegy Ellipta) pediatric multivitamin no.136 2 tab PO DAILY tab 01/30/21 07/02/21 History (Children Multivitamin) cyclobenzaprine 5 mg tablet 5 mg PO TID PRN #10 tab 05/22/21 Rx Exam Narrative Exam Narrative: Patient admits at her respiratory effort is improved Const General: cooperative and no acute distress Nutritional Appearance: average body habitus Orientation: alert, awake and oriented x3 Resp Effort & Inspection: normal respiratory effort and able to speak in complete sentences Auscultation: wheezes (Left upper quadrant) inspiratory wheezes Skin General skin exam: no rashes or lesions noted Extrem General: normal to inspection and full ROM Psych Appearance: grossly normal Mental Status: mental status grossly normal Speech and Movement: speech and movement normal Mood: congruent mood Results Labs Result diagrams: 07/02/21 21:39 07/03/21 05:11 Labs: Laboratory Results - last 24 hr 07/02/21 07/02/21 07/02/21 21:39 21:39 22:09 WBC 10.84 H RBC 4.15 Hgb 10.6 L Hct 33.0 L MCV 80 MCH 25.5 L MCHC 32.1 RDW 13.1 Plt Count 226 MPV 11.2 H Immature Gran % 0.8 Neutrophils % 66.1 Lymphocytes % 20.9 Monocytes % 5.8 Eosinophils % 6.0 Basophils % 0.4 Nucleated RBC % 0.0 Absolute Neutrophils 7.17 H Absolute Lymphocytes 2.27 Absolute Monocytes 0.63 Absolute Eosinophils 0.65 Absolute Basophils 0.04 Sodium 137 Potassium 3.2 L Chloride 103 Carbon Dioxide 25.1 Anion Gap 8.9 BUN 5 L Creatinine 0.7 Estimated GFR/1.73 m2 >= 60.00 Glucose 119 H Calcium 8.5 COVID-19 Source Nasal/Nares SARS-CoV-2 (PCR) Negative 07/03/21 05:11 WBC RBC Hgb Hct MCV MCH MCHC RDW Plt Count MPV Immature Gran % Neutrophils % Lymphocytes % Monocytes % Eosinophils % Basophils % Nucleated RBC % Absolute Neutrophils Absolute Lymphocytes Absolute Monocytes Absolute Eosinophils Absolute Basophils Sodium 137 Potassium 3.6 Chloride 103 Carbon Dioxide 21.6 Anion Gap 12.4 H BUN 5 L Creatinine 0.7 Estimated GFR/1.73 m2 >= 60.00 Glucose 144 H Calcium 8.4 L COVID-19 Source SARS-CoV-2 (PCR) Last Vital Signs Temp 98.6 F 07/03/21 07:43 Pulse 109 H 07/03/21 07:43 Resp 16 07/03/21 07:43 BP 111/69 07/03/21 07:43 Pulse Ox 98 07/03/21 07:43
[2021-07-03] MEDS: Normal Saline Flush 10 ML SYR IVP ×2 (10:26→10:55)
[2021-07-03] MEDS: Ondansetron 4 MG/2 ML VIAL IVP (10:55)
[2021-07-03 11:14] VITALS: BP 106/67; PULSE 110; RESP 17; TEMP 37.2; O2SAT 96
--- NOTE | 2021-07-03 11:50 | PUCON_ITS ---
General Date Of Service Date of service: 07/03/21 Time of Service: 11:50 Reason for Consult: Asthma Exacerbation Assessment and Plan Assessment and plan (1) Acute asthma exacerbation: Status: Acute (2) : Status: Acute (3) Seasonal allergies: (4) COVID-19 affecting in first trimester: Assessment and plan: This is a 31 yo female admitted for an asthma exacerbation. She no showed to our visit 05/21/21 where she was meant to establish care. 1/3 of patient will have improvements in asthma with , 1/3 will have no change and 1/3 will have worsening symptoms. Based on her prior labs she certainly would qualify for biologic therapy, but this is not recommended to be started while . I do think she needs a higher ICS dose so will increase the Trelegy to 200. I think the main issue was lack of access to her Trelegy as she was waiting on a PA to be completed. Her lungs sound ok and I do not suspect a pneumonia so I do not think she needs an antibiotic or any imaging. Asthma Exacerbation - Increase Trelegy to 200 formulation - samples provided to pharmacy to use as patients own med while inpatient and for her to take home with her on discharge - will send Rx to her outpatient pharmacy and work on the PA - she cannot have Symbicort of Dulera due to prior reactions - agree with prednisone 40mg daily with the following taper: - 40mg for 5 days, 30mg for 3 days, 20mg for 3 days, 10mg for 3 days, 5mg for 3 days - agree with prn albuterol - continue Singulair - recommend alpha 1 antitrypsin testing - I will do this as an outpatient History of Present Illness Narrative: This is a 31 yo female who is 26 weeks who is admitted for an asthma exacerbation. She is on Singulair and Trelegy(100) at home. She has seen Dr. Sharma in the past for her asthma and she was supposed to see me on 05/21/21 but she no showed to be appointment. Her last visit with Dr. Sharma was 05/06/18 and at this visit she was maintained on Breo 200 and Singulair with Spiriva available to add with worsening symptoms. She has a history of allergies that have been controlled with Zyrtec and Sinulair. She has tried Advair in the past which was ineffective. She also has also tried Dulera and Symbicort and had an allergic skin rash to these inhalers. She has also recently had COVID (04/16). Eosinophils: 07/02/21 - 650 IgE: 04/23/18 - 739 Spirometry Date FEV1/FVC LLN FEV1 % LLN FVC % LLN Comments 06/29/17 75 75 1.81 54 2.71 2.42 61 3.20 +BD Date TLC % LLN RV % DLCO LLN sGaw % Pressures 06/29/17 4.31 82 4.12 1.74 125 26.46 103% 0.20 100 ? Today, she is doing better since being Review of Systems All systems reviewed & are unremarkable except as noted in HPI and below PFSH All Active Problems (Updated 07/02/21 @ 22:30 by Jose G Gamez MD) Acute asthma exacerbation (Acute) Hx of delivery, currently (Acute) Asthma (Chronic) LGSIL on Pap smear of cervix (Acute) 2019 and 2021. Needs colpo in and 6 week post Migraine headache with aura (Acute) (Acute) Tachycardia (Acute) Medical History Asthma COVID-19 affecting in first trimester Depression affecting in first trimester, antepartum (04/17/15) Pt denies this. H/O pre-term labor (04/17/15) 37 and 28wk deliveries Nondisplaced fracture of left ulna styloid process, initial encounter for closed fracture Seasonal allergies Surgical History History of section 28 weeks. Cord prolapse. 2 layer closure. 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 Date GA/Weeks # Outcome Route Wgt Sex Labor Lgth Anesthes ia Location Prov Complic 06/23/09 37 No Successful vaginal Female [facility] 09/03/15 28 No Successful Female [facility] cord accident Delivery Date: 06/23/09 Last Updated by: Peggy Steen M.D. went into labor at 32- 33 weeks, stayed at [facility] until 35wks, came home then had water broken at [facility] due to dilation of 5 cm at 37 weeks. Delivery Date: 09/03/15 Last Updated by: Peggy Steen M.D. Pt went into labor, had a cord prolapse which led to emergent c- section Visit Medication and Allergies Active Medications Generic Name Dose Route Start Last Admin Trade Name Freq PRN Reason Stop Dose Admin Acetaminophen 650 mg 07/03/21 00:40 07/03/21 01:07 Acetaminophen 325 Mg Tab PO 650 mg Q6H PRN PRN Administration Albuterol Sulfate 2.5 mg 07/02/21 23:25 Albuterol 2.5 Mg/3 Ml Inh Soln Vial UPD Q2H PRN PRN Albuterol Sulfate 2 puff 07/03/21 08:40 Albuterol Hfa 8 Gm 60 Puff Inh IH Q4H PRN PRN Wheezing Device 1 each 07/03/21 09:00 Inhaler, Assist Device MC DIRECTED IRASEMA Dimethicone/Zinc Oxide 0 gm 07/02/21 23:25 Martine Protect Cream 142 Gm Tube TP PRN PRN Sodium Chloride 500 mls @ 0 mls/hr 07/02/21 21:18 Saline 500ml Bag IV PRN PRN As Directed IV Miscellaneous Supplies 1 each 07/02/21 21:30 Iv Access IV DIRECTED IRASEMA Montelukast Sodium 10 mg 07/03/21 20:00 Montelukast 10 Mg Tab PO QPM IRASEMA Ondansetron HCl 4 mg 07/03/21 10:08 07/03/21 10:55 Ondansetron 4 Mg/2 Ml Vial IVP 4 mg Q4H PRN PRN Administration Patient's Own 1 each 07/04/21 08:30 Medication ( IH Fluticasone- DAILY [facility] Umeclidin-Vilanter [ Trelegy Ellipta]) Patient's Own 2 each 07/04/21 08:30 Medication ( PO Pediatric DAILY [facility] Multivitamin No.136 [Children Multivitamin]) Prednisone 40 mg 07/03/21 08:30 07/03/21 08:11 Prednisone 20 Mg Tab PO 40 mg DAILY IRASEMA Administration Sodium Chloride 0 ml 07/02/21 21:18 07/03/21 10:55 Normal Saline Flush 10 Ml Syr IVP 10 ml PRN PRN Administration Allergies banana Allergy (Unknown, Verified 07/02/21 23:09) Skin Rash peach Allergy (Verified 07/02/21 23:09) vancomycin Allergy (Verified 07/02/21 23:09) Swelling/Edema budesonide [From Symbicort] Adverse Reaction (Verified 07/02/21 23:09) Skin Rash formoterol [From Symbicort] Adverse Reaction (Verified 07/02/21 23:09) Skin Rash Exam Narrative Exam Narrative: Gen: NAD, normal respiratory effort, well-nourished HENT: PERRL Chest: No respiratory distress, normal appearance of chest, clear to auscultation bilaterally, no crackles or wheezes, some mild scattered rhonchi, normal inspiratory effort Heart: regular rate and rhythym, no murmurs, rubs or gallops Abdomen: Non-distended, Extremities: No clubbing, edema, cyanosis, rashes Neuro: AAOx3 , non focal Psych: cooperative, appropriate mental affect Results Last Vital Signs Temp 37.2 C 07/03/21 11:14 Pulse 110 H 07/03/21 11:14 Resp 17 07/03/21 11:14 BP 106/67 07/03/21 11:14 Pulse Ox 96 07/03/21 11:14 Labs Result diagrams: 07/02/21 21:39 07/03/21 05:11 Labs: Laboratory Results - last 24 hr 07/02/21 07/02/21 07/02/21 21:39 21:39 22:09 WBC 10.84 H RBC 4.15 Hgb 10.6 L Hct 33.0 L MCV 80 MCH 25.5 L MCHC 32.1 RDW 13.1 Plt Count 226 MPV 11.2 H Immature Gran % 0.8 Neutrophils % 66.1 Lymphocytes % 20.9 Monocytes % 5.8 Eosinophils % 6.0 Basophils % 0.4 Nucleated RBC % 0.0 Absolute Neutrophils 7.17 H Absolute Lymphocytes 2.27 Absolute Monocytes 0.63 Absolute Eosinophils 0.65 Absolute Basophils 0.04 Sodium 137 Potassium 3.2 L Chloride 103 Carbon Dioxide 25.1 Anion Gap 8.9 BUN 5 L Creatinine 0.7 Estimated GFR/1.73 m2 >= 60.00 Glucose 119 H Calcium 8.5 COVID-19 Source Nasal/Nares SARS-CoV-2 (PCR) Negative 07/03/21 05:11 WBC RBC Hgb Hct MCV MCH MCHC RDW Plt Count MPV Immature Gran % Neutrophils % Lymphocytes % Monocytes % Eosinophils % Basophils % Nucleated RBC % Absolute Neutrophils Absolute Lymphocytes Absolute Monocytes Absolute Eosinophils Absolute Basophils Sodium 137 Potassium 3.6 Chloride 103 Carbon Dioxide 21.6 Anion Gap 12.4 H BUN 5 L Creatinine 0.7 Estimated GFR/1.73 m2 >= 60.00 Glucose 144 H Calcium 8.4 L COVID-19 Source SARS-CoV-2 (PCR)
--- NOTE | 2021-07-03 12:54 | INITIAL_ITS ---
- If Service Date Differs Date of service: 07/03/21 Time of Service: 12:54 Care Management Initial Assess REASON FOR HOSPITALIZATION:: asthma exacerbation, 26 weeks PAST MEDICAL HISTORY/PAST SURGICAL HISTORY:: All Active Problems. Acute asthma exacerbation (Acute). Hx of delivery, currently (Acute). Asthma (Chronic). LGSIL on Pap smear of cervix (Acute). 2019 and 2021. Needs colpo in and 6 week post . Migraine headache with aura (Acute). (Acute). Tachycardia (Acute). Medical History. Asthma. COVID-19 affecting in first trimester. Depression affecting in first trimester, antepartum (04/17/15). Pt denies this. H/O pre-term labor (04/17/15). 37 and 28wk deliveries. Nondisplaced fracture of left ulna styloid process, initial encounter for closed fracture. Seasonal allergies. Surgical History. History of section. 28 weeks. Cord prolapse. 2 layer closure. LTCS. Hx of wisdom tooth extraction. S/P colonoscopy (~01/24/19) PREVIOUS FUNCTIONAL STATUS/SOCIAL/FAMILY SUPPORTS:: Miya lives in [facility] with her s/oGolden. They have two children, and are expecting their third. 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 She is independent at baseline. CURRENT FUNCTIONAL STATUS:: Miya was lying in bed resting when CM met with her. She stated that she is feeling good, and is hoping to be discharged today. She stated that she spoke with Dr. Colón, Circulation Supervisor, who stated that her office would complete PA's for her inhalers in order for her to receive them going forward. She stated that Dr. Crain checked on her as well, and stated that she would likely be discharged today. CM will continue to follow. ADVANCE DIRECTIVES:: None on file. Has patient been provided with info about the portal/API?: Yes Did the patient sign up for the portal?: Yes (active) CODE STATUS:: Full Code INSURANCE COVERAGE / FINANCIAL ISSUES:: [facility] CURRENT HOME/COMMUNITY SERVICES/EQUIPMENT:: No current services or equipment. PRIMARY CARE PHYSICIAN:: Nadja Doan POTENTIAL DISCHARGE NEEDS:: Follow up appointments. PATIENT/FAMILY EDUCATION NEEDS:: Review discharge instructions and limitations, discussion of self care needs including ask me three. ANTICIPATED BARRIERS TO DISCHARGE:: None identified. TRANSPORTATION:: Via private vehicle by family. PLAN:: Anticipate Miya will return home with no new services. Her s/o will drive her home via private vehicle. She will follow up with her PCP and discharge plan of care. CM will continue to follow.
[2021-07-03 15:49] VITALS: BP 116/72; PULSE 111; RESP 18; TEMP 36.8; O2SAT 99
--- NOTE | 2021-07-03 19:26 | W.PM.PROGNOT ---
Date of Service Date of service: 07/03/21 Time of Service: 19:00 Subjective Subjective Interval history since last seen: Patient's care was transferred to the OB team. I saw her in brief follow up. She feels a lot better - back to baseline. She was evaluated by pulmonology who will help her manage her trelegy prescription. Continue prednisone taper, singulair, prn albuterol. At this point, the patient is stable for discharge home and is, in fact, being discharged. Hospitalists are signing off. Objective Last Vital Signs Temp 36.8 C 07/03/21 15:49 Pulse 111 H 07/03/21 15:49 Resp 18 07/03/21 15:49 BP 116/72 07/03/21 15:49 Pulse Ox 99 07/03/21 15:49 Laboratory Results - last 24 hr 07/02/21 07/02/21 07/02/21 21:39 21:39 22:09 WBC 10.84 H RBC 4.15 Hgb 10.6 L Hct 33.0 L MCV 80 MCH 25.5 L MCHC 32.1 RDW 13.1 Plt Count 226 MPV 11.2 H Immature Gran % 0.8 Neutrophils % 66.1 Lymphocytes % 20.9 Monocytes % 5.8 Eosinophils % 6.0 Basophils % 0.4 Nucleated RBC % 0.0 Absolute Neutrophils 7.17 H Absolute Lymphocytes 2.27 Absolute Monocytes 0.63 Absolute Eosinophils 0.65 Absolute Basophils 0.04 Sodium 137 Potassium 3.2 L Chloride 103 Carbon Dioxide 25.1 Anion Gap 8.9 BUN 5 L Creatinine 0.7 Estimated GFR/1.73 m2 >= 60.00 Glucose 119 H Calcium 8.5 COVID-19 Source Nasal/Nares SARS-CoV-2 (PCR) Negative 07/03/21 05:11 WBC RBC Hgb Hct MCV MCH MCHC RDW Plt Count MPV Immature Gran % Neutrophils % Lymphocytes % Monocytes % Eosinophils % Basophils % Nucleated RBC % Absolute Neutrophils Absolute Lymphocytes Absolute Monocytes Absolute Eosinophils Absolute Basophils Sodium 137 Potassium 3.6 Chloride 103 Carbon Dioxide 21.6 Anion Gap 12.4 H BUN 5 L Creatinine 0.7 Estimated GFR/1.73 m2 >= 60.00 Glucose 144 H Calcium 8.4 L COVID-19 Source SARS-CoV-2 (PCR)
[2021-07-03] MEDS: Montelukast 10 MG TAB PO (20:15)
[2021-07-03] MEDS: Calcium Carbonate 1.5 GM TAB PO (20:15)
--- NOTE | 2021-07-04 12:26 | W.PM.DS.N ---
Date of service: 07/04/21 Time of Service: 11:27 DS: Diagnosis Discharge Diagnosis (1) Acute asthma exacerbation: Status: Acute (2) : Status: Acute (3) Seasonal allergies: (4) COVID-19 affecting in first trimester: Discharge Plan Disposition Patient Disposition: HOME Condition: Stable Discharge Details Reason For Visit: asthma exacerbation; 26 weeks Admit Date/Time: 07/02/21 22:15 Admit Provider: Ye Barrera Attending Provider: Ye Barrera [facility] Course: This is a 31 yo female with a ZITA of 26w3d EGA with ZITA of 10/09/21 as determined by LMP and confirmed by 1st trimester OB u/s who presented to [facility] ED yesterday evening with wheezing and shortness of breath after Albuterol nebulizer was ineffective at maximum dosing to control her symptoms. She was admitted for started on PO steroids, continued on Albuterol nebulizer treatment and had Trelegy restarted. I hospital day #2 her wheezing and shortness of had improved and her oxygen saturation was stable and she requested discharged home. She was given samples of Trelegy Ellipta and a prescription for prednisone with instructions for use. Home Meds and New Rx's Prescriptions: No Action Children Multivitamin Tablet,Chewable 2 tab PO DAILY prednisone 10 mg tablet 10 mg PO DAILY Qty: 40 0RF Rx Instructions: 40 tabs for 5 days, 3 tabs for 3 days, 2 tabs for 3 days, 1 tab for 3 days, 1/2 tab for 3 days Trelegy Ellipta 200-62.5-25 mcg blister with device 1 inh inhalation DAILY Qty: 60 12RF albuterol sulfate [ProAir HFA] 200 PUFF HFA aerosol inhaler 2 puff Inhalation Q4H PRN PRN (Reason: Wheezing) Qty: 1 0RF montelukast 10 mg Tablet 10 mg PO QPM cyclobenzaprine 5 mg tablet 5 mg PO TID PRNQty: 10 0RF Discharge Instructions Instructions: (DC), Asthma (DC) Additional Instructions: Take medications as prescribed by Dr. Colón. Follow up with your OB Dr as recommended Miya may return to work Thursday, July 08 Stand Alone Forms: Nursing Discharge Form Referrals: Anika Crain MD [ [facility] STAFF PHYSICIAN] - (call tomorrow OBSTETRICS SPECIALIST for follow up [phone]) Nadja Doan [Primary Care Provider] - (call for tomorrow for follow up [phone]) Activity:: Activity as Tolerated Equipment/Supplies:: No Equipment Needed Diet:: Normal Diet Discharge Orders Discharge Orders: Discharge Order (Routine); Ordered 07/03/21 Ordered By: Anika Crain Discharge Data Discharge Date/Time-TO BE ENTERED AT DEPARTURE: 07/03/21 20:29 Discharge Comment: Patient will follow up with Dr. Vargas's office DS: Summary Time Spent with Patient providing and/or coordinating discharge services: Less than 30 minutes Status at Discharge Functional status at discharge: independent ambulation Overall status at discharge: patient is back to baseline Mental Status: mental status grossly normal Speech and Movement: speech and movement normal Mood: congruent mood Affect: normal affect Exam Const General: cooperative and no acute distress Nutritional Appearance: average body habitus Orientation: alert, awake and oriented x3 Neck Neck: normal visual inspection Resp Effort & Inspection: normal respiratory effort Auscultation: wheezes inspiratory wheezes and left upper (No use of accessory muscles, no nasal flaring.) Cardio Rate: regular rate Rhythm: regular rhythm General: deferred Other: heart tones 150 bpm by [place]. No focal uterine tenderness. Skin General skin exam: no rashes or lesions noted Extrem General: normal to inspection Psych Appearance: grossly normal Mental Status: mental status grossly normal Speech and Movement: speech and movement normal Mood: congruent mood Affect: normal affect Attitude: cooperative Thought Process: normal Thought Content: normal Insight: insight good Judgment: judgment good DS: Data Vitals/I&O Vitals and I&O: Vital Signs Temperature 98.2 F 07/03/21 15:49 Temperature Source Tympanic 07/03/21 15:49 Pulse 111 H 07/03/21 15:49 Pulse Rhythm Regular 07/03/21 17:57 Respiratory Rate 18 07/03/21 15:49 Respiratory Effort 07/03/21 17:57 Respiratory Depth Normal 07/03/21 17:57 Respiratory Pattern Normal 07/03/21 17:57 Blood Pressure 116/72 07/03/21 15:49 Pulse Oximetry 99 07/03/21 15:49 Oxygen Delivery Method Room Air 07/03/21 15:49 Oxygen Flow Rate 0 07/03/21 15:49 Pain Level 0 07/03/21 15:49 Intake & Output 07/03/21 07/04/21 07/04/21 23:59 11:59 23:59 Intake Total 340 / 820 Balance 340 / -180 Intake: Oral 340 / 820 PFSH All Active Problems (Updated 07/02/21 @ 22:30 by Jose G Gamez MD) Acute asthma exacerbation (Acute) Hx of delivery, currently (Acute) Asthma (Chronic) LGSIL on Pap smear of cervix (Acute) 2019 and 2021. Needs colpo in and 6 week post Migraine headache with aura (Acute) (Acute) Tachycardia (Acute) Medical History Asthma COVID-19 affecting in first trimester Depression affecting in first trimester, antepartum (04/17/15) Pt denies this. H/O pre-term labor (04/17/15) 37 and 28wk deliveries Nondisplaced fracture of left ulna styloid process, initial encounter for closed fracture Seasonal allergies Surgical History History of section 28 weeks. Cord prolapse. 2 layer closure. 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 Date GA/Weeks # Outcome Route Wgt Sex Labor Lgth Anesthesia Location Prov Complic 06/23/09 37 No Successful vaginal Female [facility] 09/03/15 28 No Successful Female [facility] cord accident Delivery Date: 06/23/09 Last Updated by: Peggy Steen M.D. went into labor at 32- 33 weeks, stayed at [facility] until 35wks, came home then had water broken at [facility] due to dilation of 5 cm at 37 weeks. Delivery Date: 09/03/15 Last Updated by: Peggy Steen M.D. Pt went into labor, had a cord prolapse which led to emergent
== END 2021-07-03 20:29 | disposition home or self-care (01) | DRG 832 ==
LOC: ER 22:29 → MS 23:28
PROVIDERS: Admitting Provider Family Medicine; Emergency Provider Emergency Medicine; PCP Nurse Practitioner Family; Visit Provider Family Medicine
DX: O99.512 Diseases of the respiratory system complicating pregnancy, second trimester (principal); J45.901 Unspecified asthma with (acute) exacerbation; O34.219 Maternal care for unspecified type scar from previous cesarean delivery; N85.8 Other specified noninflammatory disorders of uterus; O99.891 Other specified diseases and conditions complicating pregnancy; O99.352 Diseases of the nervous system complicating pregnancy, second trimester; Z3A.26 26 weeks gestation of pregnancy; G43.109 Migraine with aura, not intractable, without status migrainosus; R87.612 Low grade squamous intraepithelial lesion on cytologic smear of cervix (LGSIL); Z86.16 Personal history of COVID-19
CPT/HCPCS: 36415; 80048; 87635; 93005; 99285; 85025; 93010; 99222; J2405; J2930; J7512; J7613; J7620

== ENCOUNTER → 2021-07-23 01:54 | Outpatient (CLI) | payer MEDICAID, SELFPAY ==
--- NOTE | 2021-07-23 06:45 | DI.US_ITS ---
Exam(s) US OB CERVICAL LENGTH EXAM: US OB CERVICAL LENGTH CLINICAL HISTORY: hx of SROM at 28wK,H/O LABOR,o09.899. TECHNIQUE: Transvaginal cervical length determination ultrasound was performed. COMPARISON: US [facility] OB ULTRASOUND from 04/23/2015 FINDINGS: There is a single viable intrauterine gestation with cardiac activity identified-137 BPM. Fetu s is presently in cephalic position. There is normal amount of amniotic fluid. Placenta is anterior , grade 0, with no evidence of placenta previa. The distance from the tip of the placenta to the int ernal cervical os is 6.5 cm Cervical length measurements average 3.3 cm The endocervical canal is closed. IMPRESSION: Cervical length is 3.3 cm.. The endocervical is closed. Anterior placenta. No evidence of placenta previa. Normal amount of amniotic fluid. DATA REPOSITORY:
== END ==
PROVIDERS: PCP Nurse Practitioner Family; Visit Provider Obstetrics & Gynecology Gynecology
DX: O09.893 Supervision of other high risk pregnancies, third trimester (principal); Z3A.29 29 weeks gestation of pregnancy
CPT/HCPCS: 76815

== ENCOUNTER 2021-07-29 03:45 | Outpatient (CLI) | payer MEDICAID, SELFPAY ==
[2021-07-29 14:27] LABS: Abs Immature Grans 0.11 10^3/uL (0.0-0.06); Absolute Basophil Count 0.02 10^3/uL (0.0-0.2); Absolute Lymphocyte Count 1.77 10^3/uL (1.2-3.4); Absolute Neutrophil Count 6.91 10^3/uL (1.2-6.7); Basophils % 0.2; Eosinophils % 2.1; HCT 30.8 % (36.0-46.0); HGB 9.6 g/dL (11.2-15.7); Immature Grans % 1.2; Lymphocytes % 18.6; MCH 23.5 pg (27.0-33.0); MCHC 31.2 % (32.0-36.0); MCV 76 fL (80-95); MPV 9.6 fL (8.0-11.0); Monocytes % 5.3; Neutrophils % 72.6; Platelet Count 194 10^3/uL (130-400); RBC 4.08 10^6/uL (3.93-5.22); RDW 14.5 % (11.7-14.6); RDW-SD 38.7 fL; WBC 9.51 10^3/uL (4.4-10.8)
[2021-07-29 15:01] LABS: Glucose,1 Hr (Glucola) 133 mg/dL (80-140)
== END 2021-07-29 03:46 | disposition home or self-care (01) ==
LOC: LBO 03:46
PROVIDERS: PCP Nurse Practitioner Family; Visit Provider Obstetrics & Gynecology
DX: O09.893 Supervision of other high risk pregnancies, third trimester (principal); Z3A.29 29 weeks gestation of pregnancy
CPT/HCPCS: 36415; 82950; 85025

== ENCOUNTER 2021-08-13 16:46 | Outpatient (REF) | payer MEDICAID, SELFPAY ==
[2021-08-13 19:15] LABS: Fetal Fibronectin Positive (Negative)
== END 2021-08-13 16:47 | disposition home or self-care (01) ==
LOC: LBN 16:46
PROVIDERS: PCP Nurse Practitioner Family; Visit Provider Obstetrics & Gynecology
DX: O09.893 Supervision of other high risk pregnancies, third trimester (principal); O26.893 Other specified pregnancy related conditions, third trimester; N89.8 Other specified noninflammatory disorders of vagina; Z3A.31 31 weeks gestation of pregnancy
CPT/HCPCS: 82731; 87480; 87510; 87660

== ENCOUNTER 2021-08-19 16:28 | Outpatient (REF) | payer MEDICAID, SELFPAY | END 2021-08-19 16:29 | disposition home or self-care (01) | LOC: LBN 16:28 | PROVIDERS: PCP Nurse Practitioner Family; Visit Provider Obstetrics & Gynecology | DX: R30.0 Dysuria (principal) | CPT/HCPCS: 87086 ==

== ENCOUNTER 2021-08-26 20:29 | Observation (INO) | payer MEDICAID, SELFPAY ==
[2021-08-26 20:52] VITALS: BP 131/77; PULSE 116
--- NOTE | 2021-08-26 21:24 | HPE_ITS ---
Date of service: 08/26/21 Time of Service: 21:24 Assessment and Plan Assessment and plan (1) labor in third trimester: Status: Acute Assessment and plan: contractions at 33 and 5. Early. She has a history of a previous 37 weeks delivery after labor at 35 weeks. She has also had a previous section due to spontaneous rupture of membranes and cord prolapse at 28 weeks. She has had 1 course of steroids at 31 weeks. She has had a fibronectin that was positive. She received a rescue dose of betamethasone today along with ampicillin for group B strep prophylaxis. Group B strep culture was performed today. Previous COVID and testing was performed today. She did have COVID in March during this . (2) Anemia affecting in third trimester: Status: Acute (3) Hx of delivery, currently : Status: Acute Assessment and plan: History of 28-week section due to cord prolapse (4) History of section: Assessment and plan: Prior vaginal delivery and section at 28 weeks. Desires trial of labor (5) Migraine headache with aura: Status: Acute Assessment and plan: Care stable (6) COVID-19 affecting in first trimester: Assessment and plan: No significant sequelae (7) H/O pre-term labor: (8) Asthma: Status: Chronic Assessment and plan: On long-term inhalers along with rescue inhalers. Currently stable. Did have 1 admission during this for exacerbation of asthma she has had run out of her long-term inhaler. More recently she has been stable. OB-HPI Labor/Delivery History of Present Illness Reason for Visit: labor Chief Complaint: Uterine Contractions (Every 5-10 minutes). ZITA Calculator Estimated Delivery Date Method Current WG Current Estimate 10/09/21 Ultrasound #1 33w 5d Other Estimates 10/09/21 LMP (Certain) 33w 5d History of Present Expected Delivery Route/Plan prev C/S @ 28 wks for cord prolapse, desires TOLAC - care Specific Issues/Plan - Hx of labor @ 32(delivery 37) and 28 weeks. 05/23/21 [facility] – [place]. No plan for [place], pt declined vaginal progesterone. Nl morphology u/s. Nl cervical length 3.3 on 07/23/21. -Cx 1cm on 08/06/21: Betamethasone #1 given. 08/07/21 Betamethasone #2.. - Asthma: 05/23/21 Pulm consult: Sleep apnea. Has CPAP ordered. - 07/03/21-07/04/21 admitted for asthma exacerbation after she ran out of Trelegy Ellipta inhaler. Competed Prednisone taper. - Depression hx - Prior LTCS at 28 weeks due to cord prolapse. 2 layer closure. Well developed lower segment as patient presented complete- desires TOLAC if possible - Genetic testing ordered: SMA negative, panorama NL female, CF risk 03/11 because her niece is a carrier of CF. - Covid+ 03/30/21 (vaccinated and boosted); Received MAB. -Growth sono -NSTs @36wks . Narrative: Patient called this evening with significant increase in baseline contractions and pelvic pressure. Good movement, no leaking fluid or vaginal bleeding. care to [facility]. Contractions every 5-10 minutes, SVE 1/10, soft, 0 station Review of Systems Narrative: As HPI, significant contractions Constitutional Constitutional: Reports as per HPI Comments: Patient moving and active. She has no signs or preeclampsia. She has developed a mild headache. Her breathing has been fine. She did state that this morning, with contractions, and activity she was slightly short of breath but that has resolved. She has taken of her long-acting inhaler today. ENT Ears, Nose, Mouth, and Throat: Reports system reviewed and no additional complaints, except as documented and Denies abnormal hearing Cardiovascular Cardiovascular: Reports as per HPI, Denies chest pain, Denies rapid heart rate and Denies irregular heart rhythm Respiratory Respiratory: Reports as per HPI, Denies chest congestion, Denies cough and Denies wheezing Gastrointestinal Gastrointestinal: Reports as per HPI, Denies abdominal pain, Denies constipation and Denies nausea Genitourinary Genitourinary: Reports system reviewed and no additional complaints, except as documented and Denies abnormal vaginal bleeding Musculoskeletal Musculoskeletal: Reports system reviewed and no additional complaints, except as documented Neurologic Neurologic: Reports system reviewed and no additional complaints, except as documented, Reports as per HPI, Denies abnormal hearing and Denies abnormal speech Psychiatric Psychiatric: Reports system reviewed and no additional complaints, except as documented Allergic/Immunologic Allergic/Immunologic: Denies wheezing PFSH All Active Problems (Updated 08/26/21 @ 21:48 by Sonya Franco DO) labor in third trimester (Acute) contractions with 1 course of steroid given at 31 weeks. Rescue dose at 33 weeks 5. Ampicillin given today. Vaginal discharge during , antepartum (Acute) Insomnia (Acute) Anemia affecting in third trimester (Acute) Pelvic pain (Acute) Hx of delivery, currently (Acute) Asthma (Chronic) LGSIL on Pap smear of cervix (Acute) 2019 and 2021. Needs colpo in and 6 week post Migraine headache with aura (Acute) (Acute) Tachycardia (Acute) Medical History Asthma COVID-19 affecting in first trimester Depression affecting in first trimester, antepartum (04/17/15) Pt denies this. H/O pre-term labor (04/17/15) 37 and 28wk deliveries Nondisplaced fracture of left ulna styloid process, initial encounter for closed fracture Seasonal allergies Surgical History History of section 28 weeks. Cord prolapse. 2 layer closure. 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 Date GA/Weeks # Preg Succ Route Wgt Sex Labor Lgth Anesth esia Location Prov Complic 06/23/09 37 No vaginal Female [facility] 09/03/15 28 No Female [facility] cord accident Delivery Date: 06/23/09 Last Updated by: Peggy Steen M.D. went into labor at 32- 33 weeks, stayed at [facility] until 35wks, came home then had water broken at [facility] due to dilation of 5 cm at 37 weeks. Delivery Date: 09/03/15 Last Updated by: Peggy Steen M.D. Pt went into labor, had a cord prolapse which led to emergent c- section Meds Allergies and Home Medications Allergies Allergy/AdvReac Type Severity Reaction Status Date / Time banana Allergy Unknown Skin Rash Verified 08/19/21 15:15 peach Allergy Verified 08/19/21 15:15 vancomycin Allergy Swelling/Ed Verified 08/19/21 15:15 london adhesive tape AdvReac Intermediate Verified 08/19/21 15:15 budesonide [From Symbicort] AdvReac Skin Rash Verified 08/19/21 15:15 formoterol [From Symbicort] AdvReac Skin Rash Verified 08/19/21 15:15 Home Medications Medication Instructions Recorded Confirmed Type albuterol sulfate 90 mcg/actuation 2 puff inhalation Q4H PRN PRN 04/19/17 08/13/21 Rx aerosol inhaler (ProAir HFA) Wheezing #1 inh montelukast 10 mg tablet 10 mg PO QPM 03/16/18 08/13/21 History pediatric multivitamin no.136 2 tab PO DAILY 01/30/21 08/13/21 History (Children Multivitamin chewable tablet) cyclobenzaprine 5 mg tablet 5 mg PO TID PRN #10 tabs 05/22/21 08/13/21 Rx fluticasone fur. 200 mcg-umeclid 1 inh inhalation DAILY #60 ea 07/03/21 08/13/21 Rx 62.5 mcg-vilant 25 mcg inhalat.powder (Trelegy Ellipta) ferrous gluconate 236 mg (27 mg 236 mg PO DAILY #60 tabs 07/29/21 08/13/21 Rx iron) tablet hydroxyzine pamoate 50 mg capsule 50 mg PO QHS #20 caps 07/30/21 08/13/21 Rx (Vistaril) Exam Physical Exam Vital signs: Pulse BP 116 H 131/77 08/26/21 20:52 08/26/21 20:52 Vital Signs Reviewed: Yes Constitutional Constitutional: mild distress and average body habitus Detailed Labor and Delivery Exam Dilation: 1 Effacement (%): 70 station: 0 Position: OA Cervix position: anterior Consistency: soft Crump Score: Cervical Points Exam 0 1 2 3 Dilation Closed 1-2cm 3-4 cm 5-6cm Effacement 0-30% 40-50% 60-70% 80% Consistency Firm Medium Soft Station -3 -2 -1,0 +1,+2 Position Posterior Mid Anterior CRUMP Score(Cervical Ripeness Score): 8 Contraction Frequency(min): 5-10 Contraction Duration(sec): 60 Contraction Intensity: Moderate/Strong Fetus A Heart Rate Baseline: 150 Monitor Accelerations: 15 X 15 Monitor Decelerations: None Variability: Moderate (6-25 BPM) Presentation: Vertex Categories: Category I Est. Weight: 4 lb HEENT Exam HEENT Exam: Normal Detailed HEENT Exam Head: Present normocephalic Neck Exam Neck Exam: Normal Respiratory Exam Respiratory Exam: Normal (No Rales or rhonchi, scant faint wheezing) Cardiovascular Exam Cardiovascular Exam: Normal Detail Cardiovascular Exam Cardiovascular: Present RRR, S1 and S2; Absent murmur Abdominal Exam Abdominal Exam: Normal Exam Exam: Normal Extremities Exam Extremities Exam: Normal Detailed Neurological Exam Neurological: Present alert and oriented X3; Absent motor deficit Psychiatric Exam Psychiatric Exam: Normal Results Results Group Beta Strep: pending Risk Assessment Risk for Shoulder Dystocia Historical/Initial OB: POSITIVE FOR: Previous Macrosomia; NEGATIVE FOR: Pelvic Abnormality, Pre- BMI>30 or Previous Shoulder Dystocia Date/Initial: 03/13/21 Risk for Pre-Eclampsia Date Initiated/Initials: 03/13/21 Yes, if one or more: NEGATIVE FOR: Hx Pre-E/Gest HTN, Chronic HTN, Multiple Gestation, Pre-gestational DM, Renal Disease, Systemic Lupus or APA Syndrome Yes, if 2 or more: POSITIVE FOR: ethinicty; NEGATIVE FOR: Nulliparity, Age>= 35 yrs, >10yr btwn pregnancies, BMI>30 or Previous IUGR Risk for Post- Hemorrhage Initial: POSITIVE FOR: Anticoagulation; NEGATIVE FOR: Multiple Gestation, Previous PPH, Known Clotting Deficiency or Grand Multiparity Counseled re: Active Management: Yes Date/Initials: 03/13/21 Risks Reviewed Risks Reviewed Upon Admission: Yes
[2021-08-26 21:32] LABS: Source Nasal/Nares
[2021-08-26 21:35] LABS: HCT 29.2 % (36.0-46.0); HGB 9.1 g/dL (11.2-15.7); MCHC 31.2 % (32.0-36.0); MPV 10.5 fL (8.0-11.0); Platelet Count 201 10^3/uL (130-400); RBC 4.14 10^6/uL (3.93-5.22); RDW 15.9 % (11.7-14.6); RDW-SD 40.1 fL; WBC 11.35 10^3/uL (4.4-10.8)
[2021-08-26 21:48] LABS: MCV 71 fL (80-95)
[2021-08-26] MEDS: Lactated Ringers 1,000 ML 150 ML IV (22:00)
[2021-08-26] MEDS: Betamet Acet/Betamet Na Ph Inj. 30 MG/5 ML 12 MG IM (22:06)
[2021-08-26] MEDS: Normal Saline Flush 10 ML SYR IVP (22:07)
[2021-08-26 22:23] LABS: COVID-19 PCR Negative (Negative)
[2021-08-26] MEDS: AMPICILLIN SODIUM 2 GM in Normal Saline 100 ML IVPB (22:35)
== END 2021-08-26 22:42 | disposition short-term general hospital (02) ==
PROVIDERS: Admitting Provider Obstetrics & Gynecology; PCP Nurse Practitioner Family; Visit Provider Obstetrics & Gynecology
DX: O60.03 Preterm labor without delivery, third trimester (principal); O99.013 Anemia complicating pregnancy, third trimester; Z3A.33 33 weeks gestation of pregnancy; J45.909 Unspecified asthma, uncomplicated; G43.909 Migraine, unspecified, not intractable, without status migrainosus; O99.513 Diseases of the respiratory system complicating pregnancy, third trimester; O99.353 Diseases of the nervous system complicating pregnancy, third trimester; Z20.822 Contact with and (suspected) exposure to COVID-19
CPT/HCPCS: 85027; 86850; 86900; 86901; 87635; 87081; G0378; J0290; J0702

== ENCOUNTER 2021-09-04 13:20 | Inpatient (IN) | payer MEDICAID, SELFPAY ==
[2021-09-04] VITALS (8 sets, daily range): BP systolic 109–131; BP diastolic 69–85; PULSE 99–117; RESP 17–20; TEMP 36.6–36.7; O2SAT 99; BMI 32.8
[2021-09-04 14:01] LABS: HCT 29.7 % (36.0-46.0); HGB 9.3 g/dL (11.2-15.7); MCH 21.8 pg (27.0-33.0); MCHC 31.3 % (32.0-36.0); MCV 70 fL (80-95); MPV 10.5 fL (8.0-11.0); Platelet Count 208 10^3/uL (130-400); RBC 4.26 10^6/uL (3.93-5.22); RDW 16.3 % (11.7-14.6); RDW-SD 40.7 fL; WBC 10.56 10^3/uL (4.4-10.8)
[2021-09-04 16:23] LABS: Source Nasal/Nares
[2021-09-04 17:13] LABS: COVID-19 PCR Negative (Negative)
--- NOTE | 2021-09-04 17:57 | PGE_ITS ---
Date of service: 09/04/21 Time of Service: 16:00 Pelvic Exam Dilation: 4 Effacement (%): 60 station: -1 Cervix Position: posterior Consistency: soft Comments: Vtx on bedside sono. Assessment and Plan Assessment and plan (1) labor in third trimester: Status: Acute Assessment and plan: Will continue to monitor and re-eval in another few hours. The OR team is aware and will be notified for sure when active labor occurs. Objective Abnormal lab results 09/04/21 Range/Units 13:50 Hgb 9.3 L (11.2-15.7) g/dL Hct 29.7 L (36.0-46.0) % MCV 70 L (80-95) fL MCH 21.8 L (27.0-33.0) pg MCHC 31.3 L (32.0-36.0) % RDW 16.3 H (11.7-14.6) % Temp Pulse Resp BP 97.9 F 111 H 20 115/69 09/04/21 13:36 09/04/21 16:43 09/04/21 13:36 09/04/21 16:43 Laboratory Results WBC 10.56 10^3/uL (4.4-10.8) 09/04/21 13:50 RBC 4.26 10^6/uL (3.93-5.22) 09/04/21 13:50 Hgb 9.3 g/dL (11.2-15.7) L 09/04/21 13:50 Hct 29.7 % (36.0-46.0) L 09/04/21 13:50 MCV 70 fL (80-95) L 09/04/21 13:50 MCH 21.8 pg (27.0-33.0) L 09/04/21 13:50 MCHC 31.3 % (32.0-36.0) L 09/04/21 13:50 RDW 16.3 % (11.7-14.6) H 09/04/21 13:50 Plt Count 208 10^3/uL (130-400) 09/04/21 13:50 MPV 10.5 fL (8.0-11.0) 09/04/21 13:50 COVID-19 Source Nasal/Nares 09/04/21 15:05 SARS-CoV-2 (PCR) Negative (Negative) 09/04/21 15:05 Patient ABO/Rh B Positive 09/04/21 13:50 Antibody Screen NEGATIVE 09/04/21 13:50 Subjective Interval history since last seen: Pt came with c/o regular contractions. They started about 20min apart in the am, then slowly got closer together. Now every few minutes. No LOF/VB. Less FM then normal but still lots of movement. Monitored ctxs for 2hrs and then re- examined with minimal cervical change. Results Hemoglobin/Hematocrit: Hgb 9.3 g/dL (11.2-15.7) L 09/04/21 13:50 Hct 29.7 % (36.0-46.0) L 09/04/21 13:50 Abnormal Lab Findings: Abnormal Labs 09/04/21 13:50 Hgb 9.3 L Hct 29.7 L MCV 70 L MCH 21.8 L MCHC 31.3 L RDW 16.3 H
--- NOTE | 2021-09-04 18:19 | HPE_ITS ---
Date of service: 09/04/21 Time of Service: 18:21 Assessment and Plan Assessment and plan (1) labor in third trimester: Status: Acute Assessment and plan: Expectant management. S/p rescue course of betamethasone. Hopes to not have pain medication. (2) History of section: Assessment and plan: Continuous monitoring. OR team, anesthesia aware and in house. OB-HPI Labor/Delivery History of Present Illness Reason for Visit: Labor Chief Complaint: Suspected Labor. ZITA Calculator Estimated Delivery Date Method Current WG Current Estimate 10/09/21 Ultrasound #1 35w 0d Other Estimates 10/09/21 LMP (Certain) 35w 0d History of Present Expected Delivery Route/Plan prev C/S @ 28 wks for cord prolapse, desires TOLAC - [facility] care Specific Issues/Plan - Hx of labor @ 32(delivery 37) and 28 weeks. 05/23/21 [facility] – [place]. No plan for [place], pt declined vaginal progesterone. Nl morphology u/s. Nl cervical length 3.3 on 07/23/21. -Cx 1cm on 08/06/21: Betamethasone #1 given. 08/07/21 Betamethasone #2.. - Asthma: 05/23/21 Pulm consult: Sleep apnea. Has CPAP ordered. - 07/03/21-07/04/21 admitted for asthma exacerbation after she ran out of Trelegy Ellipta inhaler. Competed Prednisone taper. - Depression hx - Prior LTCS at 28 weeks due to cord prolapse. 2 layer closure. Well developed lower segment as patient presented complete- desires TOLAC if possible - Genetic testing ordered: SMA negative, panorama NL female, CF risk 03/11 because her niece is a carrier of CF. - Covid+ 03/30/21 (vaccinated and boosted); Received MAB. -Growth sono -NSTs @36wks . Narrative: See prior note for details PFSH All Active Problems (Updated 08/27/21 @ 16:50 by Lyssa Newberry MD) Asthma (Chronic) labor in third trimester (Acute) contractions with 1 course of steroid given at 31 weeks. Rescue dose at 33 weeks 5. Ampicillin given today. Vaginal discharge during , antepartum (Acute) Insomnia (Acute) Anemia affecting in third trimester (Acute) Pelvic pain (Acute) Hx of delivery, currently (Acute) Asthma (Chronic) LGSIL on Pap smear of cervix (Acute) 2019 and 2021. Needs colpo in and 6 week post Migraine headache with aura (Acute) (Acute) Tachycardia (Acute) Medical History Asthma COVID-19 affecting in first trimester Depression affecting in first trimester, antepartum (04/17/15) Pt denies this. H/O pre-term labor (04/17/15) 37 and 28wk deliveries Nondisplaced fracture of left ulna styloid process, initial encounter for closed fracture Seasonal allergies Surgical History History of section 28 weeks. Cord prolapse. 2 layer closure. 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 Date GA/Weeks # Preg Succ Route Wgt Sex Labor Lgth Anesth esia Location Prov Complic 06/23/09 37 No vaginal Female [facility] 09/03/[address] [facility] cord accident Delivery Date: 06/23/09 Last Updated by: Peggy Steen M.D. went into labor at 32- 33 weeks, stayed at [facility] until 35wks, came home then had water broken at [facility] due to dilation of 5 cm at 37 weeks. Delivery Date: 09/03/15 Last Updated by: Peggy Steen M.D. Pt went into labor, had a cord prolapse which led to emergent c- section Meds Allergies and Home Medications Allergies Allergy/AdvReac Type Severity Reaction Status Date / Time banana Allergy Unknown Skin Rash Verified 09/03/21 11:12 peach Allergy Verified 09/03/21 11:12 vancomycin Allergy Swelling/Ed Verified 09/03/21 11:12 london adhesive tape AdvReac Intermediate Verified 09/03/21 11:12 budesonide [From Symbicort] AdvReac Skin Rash Verified 09/03/21 11:12 formoterol [From Symbicort] AdvReac Skin Rash Verified 09/03/21 11:12 Home Medications Medication Instructions Recorded Confirmed Type albuterol sulfate 90 mcg/actuation 2 puff inhalation Q4H PRN PRN 04/19/17 09/04/21 Rx aerosol inhaler (ProAir HFA) Wheezing #1 inh pediatric multivitamin no.136 2 tab PO DAILY 01/30/21 09/04/21 History (Children Multivitamin chewable tablet) fluticasone fur. 200 mcg-umeclid 1 inh inhalation DAILY #60 ea 07/03/21 09/04/21 Rx 62.5 mcg-vilant 25 mcg inhalat.powder (Trelegy Ellipta) montelukast 10 mg tablet 10 mg PO QPM #90 tabs 08/28/21 09/04/21 Rx Exam Physical Exam Vital signs: Temp Pulse Resp BP 97.9 F 111 H 20 115/69 09/04/21 13:36 09/04/21 16:43 09/04/21 13:36 09/04/21 16:43 Vital Signs Reviewed: Yes Detailed Labor and Delivery Exam Dilation: 5 Effacement (%): 80 station: -1 Cervix position: posterior Consistency: soft James Score: Cervical Points Exam 0 1 2 3 Dilation Closed 1-2cm 3-4 cm 5-6cm Effacement 0-30% 40-50% 60-70% 80% Consistency Firm Medium Soft Station -3 -2 -1,0 +1,+2 Position Posterior Mid Anterior Amniotic Membrane Status: Intact Fetus A Heart Rate Baseline: 145 Monitor Accelerations: 15 X 15 Monitor Decelerations: None Variability: Moderate (6-25 BPM) Categories: Category I Detailed HEENT Exam Head: Present normocephalic and atraumatic Detailed Abdominal Exam Comments: gravid, nontender Detailed Neurological Exam Neurological: Present alert, oriented X3 and CN II-XII intact DetailedPsychiatric Exam Psychiatric: Present normal affect, normal thought process and cooperative Results Results Group Beta Strep: Negative Blood Type: B+ Rubella Status: Immune Varicella Immunity: Immune Abnormal Lab Findings: Abnormal Labs 09/04/21 13:50 Hgb 9.3 L Hct 29.7 L MCV 70 L MCH 21.8 L MCHC 31.3 L RDW 16.3 H Risk Assessment Risk for Shoulder Dystocia Historical/Initial OB: POSITIVE FOR: Previous Macrosomia; NEGATIVE FOR: Pelvic Abnormality, Pre- BMI>30 or Previous Shoulder Dystocia Date/Initial: 03/13/21 Risk for Pre-Eclampsia Date Initiated/Initials: 03/13/21 Yes, if one or more: NEGATIVE FOR: Hx Pre-E/Gest HTN, Chronic HTN, Multiple Gestation, Pre-gestational DM, Renal Disease, Systemic Lupus or APA Syndrome Yes, if 2 or more: POSITIVE FOR: ethinicty; NEGATIVE FOR: Nulliparity, Age>= 35 yrs, >10yr btwn pregnancies, BMI>30 or Previous IUGR Risk for Post- Hemorrhage Initial: POSITIVE FOR: Anticoagulation; NEGATIVE FOR: Multiple Gestation, Previous PPH, Known Clotting Deficiency or Grand Multiparity Counseled re: Active Management: Yes Date/Initials: 03/13/21 Risks Reviewed Risks Reviewed Upon Admission: Yes
[2021-09-04] MEDS: Lactated Ringers 1,000 ML 999 ML IV (21:15)
--- NOTE | 2021-09-04 21:23 | ANES.PREOP_ITS ---
General Info Date of Service Date Performed: 09/04/21 Height: 5 ft 5 in Weight: 89.358 kg Body Mass Index (BMI): 32.8 Meds Allergies and Home Medications Allergies Allergy/AdvReac Type Severity Reaction Status Date / Time banana Allergy Unknown Skin Rash Verified 09/03/21 11:12 peach Allergy Verified 09/03/21 11:12 vancomycin Allergy Swelling/Ed Verified 09/03/21 11:12 london adhesive tape AdvReac Intermediate Verified 09/03/21 11:12 budesonide [From Symbicort] AdvReac Skin Rash Verified 09/03/21 11:12 formoterol [From Symbicort] AdvReac Skin Rash Verified 09/03/21 11:12 Home Medication Medication Instructions Recorded albuterol sulfate 90 mcg/actuation 2 puff inhalation Q4H PRN PRN 04/19/17 aerosol inhaler (ProAir HFA) Wheezing #1 inh pediatric multivitamin no.136 2 tab PO DAILY 01/30/21 (Children Multivitamin chewable tablet) fluticasone fur. 200 mcg-umeclid 1 inh inhalation DAILY #60 ea 07/03/21 62.5 mcg-vilant 25 mcg inhalat.powder (Trelegy Ellipta) montelukast 10 mg tablet 10 mg PO QPM #90 tabs 08/28/21 Current Visit Medications: Current Medications Generic Name Dose Route Start Last Admin Trade Name Freq PRN Reason Stop Dose Admin Ringer's Solution 1,000 mls @ 150 mls/hr 09/04/21 21:15 IV INFUSION IRASEMA IV Miscellaneous Supplies 1 each 09/04/21 13:30 Iv Access IV DIRECTED [facility] Active Problems Active Problems: Problem Status Onset Code Asthma J45.909 labor in third trimester O60.03 Vaginal discharge during , antepartum O26.899, N89.8 Insomnia G47.00 Anemia affecting in third trimester O99.013 Pelvic pain R10.2 Hx of delivery, currently O09.899 Asthma J45.909 LGSIL on Pap smear of cervix R87.612 Migraine headache with aura G43.109 Z34.90 Tachycardia R00.0 Medical History Medical History Asthma COVID-19 affecting in first trimester Depression affecting in first trimester, antepartum (04/17/15) Pt denies this. H/O pre-term labor (04/17/15) 37 and 28wk deliveries Nondisplaced fracture of left ulna styloid process, initial encounter for closed fracture Seasonal allergies Surgical History Surgical History History of section 28 weeks. Cord prolapse. 2 layer closure. LTCS Hx of wisdom tooth extraction S/P colonoscopy (~01/24/19) Tobacco Smoking/Tobacco Use Status: Never Alcohol Alcohol Intake: former Substance Use Substance use: Never Substance use type: does not use Prental History History 3 Para 2 Hx # Term Pregnancies 1 Multiple births Hx # Pregnancies 1 Ectopic pregnancies AB induced Hx Number of Living Children 2 AB spontaneous Past Pregnancies Del. Date GA/Weeks # Preg Succ Route Wgt Sex Labor Lgth Anesth esia Location Prov Complic 06/23/09 37 No vaginal Female [facility] 09/03/15 28 No Female [facility] cord accident Delivery Date: 06/23/09 Last Updated by: Peggy Steen M.D. went into labor at 32- 33 weeks, stayed at [facility] until 35wks, came home then had water broken at [facility] due to dilation of 5 cm at 37 weeks. Delivery Date: 09/03/15 Last Updated by: Peggy Steen M.D. Pt went into labor, had a cord prolapse which led to emergent c- section Vital Signs and Lab Results Vital Signs Most Recent Vital Signs in EMR: Most Recent Vital Signs Temp Pulse Resp BP Pulse Ox 36.7 C 99 H 19 109/73 99 09/04/21 19:25 09/04/21 21:09 09/04/21 19:36 09/04/21 21:09 09/04/21 19:36 Lab Results Result Diagrams: 09/04/21 13:50 Blood Type / Crossmatch: Patient ABO/Rh B Positive 09/04/21 Antibody Screen NEGATIVE 09/04/21 Complete Blood Count: White Blood Count 10.56 10^3/uL (4.4-10.8) 09/04/21 13:50 Red Blood Count 4.26 10^6/uL (3.93-5.22) 09/04/21 13:50 Hemoglobin 9.3 g/dL (11.2-15.7) L 09/04/21 13:50 Hematocrit 29.7 % (36.0-46.0) L 09/04/21 13:50 Platelet Count 208 10^3/uL (130-400) 09/04/21 13:50 Complete Metabolic Panel: 2 No Data to Display Liver Function Panel: No Data to Display Coagulation Panel: No Data to Display Cardiac Panel: No Data to Display Arterial Blood Gas: No Data to Display Venous Blood Gas: No Data to Display Pancreas Panel: No Data to Display Thyroid Panel: No Data to Display Infectious Disease: Coronavirus (COVID-19)(PCR) Negative (Negative) 09/04/21 15:05 Coronavirus 2019 Source Nasal/Nares 09/04/21 15:05 Blood Cultures: No Data to Display Toxicology Panel: No Data to Display Panel: No Data to Display Anesthesia Assessment and Plan Anesthesia History Personal History: No History of Anesthesia Complications Family History: No Family History of Anesthesia Complications Exercise Tolerance Exercise Tolerance: Metabolic Equivalents>4 Pertinent Negatives Pertinent Negatives: No Major Pulmonary Symptoms or Complaints (Asthma exacerbation in June, see Dr. Newberry's note. Condition is now stable. ) Cardiac & Pulmonary Exam Cardiac Exam: Normal S1/S2 Heart Sounds Pulmonary Exam: Clear Bilateral Breath Sounds Implantable Cardiac Device Does patient have a Pacemaker or an ICD?: No Airway Exam Known Difficult Airway: No Mallampati Class: 3 Mouth Opening: Narrow (< 3cm) Thyromental Distance: Greater than 3 cm Neck Range of Motion: Full ROM Neck Circumference: Normal Teeth Condition: Normal Dentition ASA Classification ASA Score: ASA 2 Emergency Case?: No NPO Status NPO Status: Full Stomach Status Status: Confirmed Anesthesia Plan Resuscitation Status: Full Code Anesthesia Technique: General Anesthesia Airway Planned: Endotracheal Tube Monitors Used: Standard Monitors Preoperative Comments:: Preop completed and consent signed due to TOLAC status. Discussed possibility of GETA for stat c section and spinal as safer alternative for non-emergent c section.
[2021-09-05] VITALS (137 sets, daily range): BP systolic 109–136; BP diastolic 60–85; PULSE 0–143; RESP 16–20; TEMP 36.3–37; O2SAT 88–100
--- NOTE | 2021-09-05 01:27 | W.PM.OBNL1 ---
Date of service: 09/05/21 Time of Service: 01:00 Pelvic Exam Dilation: 7 Effacement (%): 90 station: -1 Cervix Position: mid Consistency: soft Fetus A Monitor: Novii Heart Rate Baseline: 145 Presentation: Vertex Variability: Moderate (6-25 BPM) Categories: Category I Accelerations: 15 X 15 Decelerations: None Amniotic Membrane Status: Ruptured Rupture Method: Artifical Amniotic Fluid: Clear Amount: moderate Date of Membrane Rupture: 09/05/21 Time of Membrane Rupture: 01:10 Assessment and Plan Assessment and plan (1) labor in third trimester: Status: Acute Assessment and plan: Continue monitoring and expectant management. Anticipate vaginal delivery. Objective Abnormal lab results 09/04/21 Range/Units 13:50 Hgb 9.3 L (11.2-15.7) g/dL Hct 29.7 L (36.0-46.0) % MCV 70 L (80-95) fL MCH 21.8 L (27.0-33.0) pg MCHC 31.3 L (32.0-36.0) % RDW 16.3 H (11.7-14.6) % Temp Pulse Resp BP Pulse Ox 97.5 F L 122 H 20 120/81 100 09/05/21 01:11 09/05/21 01:26 09/05/21 01:11 09/05/21 01:12 09/05/21 01:26 Laboratory Results WBC 10.56 10^3/uL (4.4-10.8) 09/04/21 13:50 RBC 4.26 10^6/uL (3.93-5.22) 09/04/21 13:50 Hgb 9.3 g/dL (11.2-15.7) L 09/04/21 13:50 Hct 29.7 % (36.0-46.0) L 09/04/21 13:50 MCV 70 fL (80-95) L 09/04/21 13:50 MCH 21.8 pg (27.0-33.0) L 09/04/21 13:50 MCHC 31.3 % (32.0-36.0) L 09/04/21 13:50 RDW 16.3 % (11.7-14.6) H 09/04/21 13:50 Plt Count 208 10^3/uL (130-400) 09/04/21 13:50 MPV 10.5 fL (8.0-11.0) 09/04/21 13:50 COVID-19 Source Nasal/Nares 09/04/21 15:05 SARS-CoV-2 (PCR) Negative (Negative) 09/04/21 15:05 Patient ABO/Rh B Positive 09/04/21 13:50 Antibody Screen NEGATIVE 09/04/21 13:50 Subjective Interval history since last seen: Feel some increased pressure with contractions. Stonger contractions. Results Hemoglobin/Hematocrit: Hgb 9.3 g/dL (11.2-15.7) L 09/04/21 13:50 Hct 29.7 % (36.0-46.0) L 09/04/21 13:50 Abnormal Lab Findings: Abnormal Labs 09/04/21 13:50 Hgb 9.3 L Hct 29.7 L MCV 70 L MCH 21.8 L MCHC 31.3 L RDW 16.3 H
--- NOTE | 2021-09-05 01:43 | NUR.NOTE ---
Pt standing/walking in room. Coping well, AF remains clear. Contractions are hard, and 1-1.5 min apartNursing Note:
--- NOTE | 2021-09-05 03:59 | W.PM.OBNL1 ---
Date of service: 09/05/21 Time of Service: 04:02 Pelvic Exam Dilation: 8 Effacement (%): 100 station: 0 Fetus A Heart Rate Baseline: 135 Variability: Moderate (6-25 BPM) Categories: Category I Accelerations: 15 X 15 Decelerations: None Amniotic Membrane Status: Ruptured Rupture Method: Spontaneous Amniotic Fluid: Clear Assessment and Plan Assessment and plan (1) labor in third trimester: Status: Acute Assessment and plan: Will try nitrous oxide. Objective Abnormal lab results 09/04/21 Range/Units 13:50 Hgb 9.3 L (11.2-15.7) g/dL Hct 29.7 L (36.0-46.0) % MCV 70 L (80-95) fL MCH 21.8 L (27.0-33.0) pg MCHC 31.3 L (32.0-36.0) % RDW 16.3 H (11.7-14.6) % Temp Pulse Resp BP Pulse Ox 97.5 F L 126 H 20 125/80 98 09/05/21 01:11 09/05/21 03:57 09/05/21 01:11 09/05/21 03:50 09/05/21 03:51 Laboratory Results WBC 10.56 10^3/uL (4.4-10.8) 09/04/21 13:50 RBC 4.26 10^6/uL (3.93-5.22) 09/04/21 13:50 Hgb 9.3 g/dL (11.2-15.7) L 09/04/21 13:50 Hct 29.7 % (36.0-46.0) L 09/04/21 13:50 MCV 70 fL (80-95) L 09/04/21 13:50 MCH 21.8 pg (27.0-33.0) L 09/04/21 13:50 MCHC 31.3 % (32.0-36.0) L 09/04/21 13:50 RDW 16.3 % (11.7-14.6) H 09/04/21 13:50 Plt Count 208 10^3/uL (130-400) 09/04/21 13:50 MPV 10.5 fL (8.0-11.0) 09/04/21 13:50 COVID-19 Source Nasal/Nares 09/04/21 15:05 SARS-CoV-2 (PCR) Negative (Negative) 09/04/21 15:05 Patient ABO/Rh B Positive 09/04/21 13:50 Antibody Screen NEGATIVE 09/04/21 13:50 Subjective Interval history since last seen: Pt is feeling exhausted and like she can't keep doing this. Results Hemoglobin/Hematocrit: Hgb 9.3 g/dL (11.2-15.7) L 09/04/21 13:50 Hct 29.7 % (36.0-46.0) L 09/04/21 13:50 Abnormal Lab Findings: Abnormal Labs 09/04/21 13:50 Hgb 9.3 L Hct 29.7 L MCV 70 L MCH 21.8 L MCHC 31.3 L RDW 16.3 H
--- NOTE | 2021-09-05 04:17 | NUR.NOTE ---
Pt becoming restless and restating over and over I can't do this. Requesting epidural. Md at bedside. Anesthesia being notified. Pt continues to be using the nitrous and relaxing well between contractions.Nursing Note:
[2021-09-05] MEDS: Bupivacaine 0.25% Pres-Free 10 ML VIAL (04:40)
[2021-09-05] MEDS: fentaNYL 100 MCG/2 ML VIAL (04:40)
--- NOTE | 2021-09-05 04:59 | W.ANESPROC ---
Intrathecal Analgesia Date Performed: 09/05/21 Procedure Time: 04:41 Requesting Provider: Peggy Steen Procedure Location: Obstetrics Reason Performed: Labor Intrathecal Analgesia Standard Monitors Applied: Blood Pressure, SpO2 and See EMR for corresponding vital signs Patient Position: Sitting Timeout Performed: Yes Sedation Given (Indicate Dose Given): No Sedation given Patient Mental Status: Sedate with meaningful communication Sterility: Hand Hygiene, Surgical Cap, Surgical Mask, Sterile Gloves, Sterile Drape/Sheet and Chlorhexidine Placement Site: L3-L4 Interspace Spinal Needle Type: Amador 25 Gauge Needle Length: 3.5 Inch Spinal Procedure: Site Prepped, Sterile Drape Placed, 1% Lidocaine to skin and subcutaneous tissue with 25G needle, Introducer Needle Used, Spinal Needle Placed, Negative Heme, Positive CSF Flow and Medication Injected Paresthesia: Right Paresthesia Duration: Transient Spinal Local Anesthetic (Indicate Dose Given): Bupivacaine 0.25% PF (ml) Dose:: 1 ml Additives (Indicate Dose Given): Fentanyl PF Dose:: 20 mcg and Duramorph PF Dose:: 200 mcg Ultrasound: Not Used Number of Attempts (See previous attempts in note section): 1 Procedure Tolerated: No Complications and Patient tolerated well Procedure Outcome: Successful Procedure Comment: Feeling pressure only, no pain with contractions following the procedure. VSS Performed By: Aria Cruz
--- NOTE | 2021-09-05 08:12 | W.OBDELIVERY ---
Date of service: 09/05/21 Time of Service: 06:54 OB Labor/ Delivery Information Baby A Delivery Delivery Method: Vaginal After Presentation: Cephalic Vertex Position: Right Occipital Posterior Cord Description-Baby A: 3 Vessels Amniotic Fluid: Clear Estimated Blood Loss: 200 Delivery Outcome: Liveborn Providers Doctor: Peggy Stene Nurse: Earl Armenta Nurse: Era Sorto Labor/Delivery Information Number of Babies in Womb: 1 Steroids Given: >24 Hours before Delivery Reason Steroids Not Administered: Imminent Delivery Group Beta Strep: Negative Rubella Status: Immune Blood Type: B+ Varicella Immunity: Immune Shoulder Dystocia: No Stages of Labor Onset of Labor Date: 09/04/21 Onset of Labor Time: 06:00 ROM Baby A: 09/05/21 ROM Baby A: 01:00 ROM Total Time- Baby A: [id number] Delivery Date-Baby A: 09/05/21 Delivery Time-Baby A: 06:54 Placenta Delivery Date-Baby A: 09/05/21 Placenta Delivery Time-Baby A: 06:59 Labor-Stage 3 Duration: 5 minutes Total Length of Labor-Baby A: 24 hours and 54 minutes Placenta Status: Delivered Baby A Gender: Female Gestational Status: Late (34-36.6 wks) Gestational Age in Weeks/Days: 35 Weeks and 1 Days Score-1 Minute Interval(Baby A) Heart Rate-1 minute: 100 BPM or Greater Respiratory Effort- 1 minute: Spontaneous/Strong Cry Muscle Tone-1 minute: Active Movement Reflex Response-1 minute: Prompt Response Color-1 minute: Bluish Hands or Feet Total Score-1 minute: 9 Score-5 Minute Interval(Baby A) Heart Rate- 5 minute: 100 BPM or Greater Respiratory Effort-5 minute: Spontaneous/Strong Cry Muscle Tone-5 minute: Active Movement Reflex Response-5 minute: Prompt Response Color-5 minute: Bluish Hands or Feet Total Score- 5 minute: 9 Note: The pt was found to be fully dilated. She pushed 10mins to deliver the 's head in EVANS position followed by the shoulders and the rest of the body. The baby was placed on mom's abdomen. After >1min the cord was clamped x2 and cut. Cord blood collected. The placenta delivered with gentle cord traction and fundal massage and appeared intact. Fundus was firm with good hemostasis. Mom and baby stable at time of note.
[2021-09-05] MEDS: Hamamelis Leaf/Glycerin 100 EACH BOX PR (10:02)
[2021-09-05] MEDS: Dibucaine 1% 28 GM TUBE PR (10:02)
[2021-09-05] MEDS: Ondansetron 4 MG/2 ML VIAL IVP (10:03)
[2021-09-05] MEDS: Normal Saline Flush 10 ML SYR ×2 (10:08→13:00)
--- NOTE | 2021-09-05 12:01 | W.ANESPOSTOP ---
Postoperative Evaluation Date, Time and Location Date Performed: 09/05/21 Time Performed: 12:01 Patient Location: Obstetrics Vital Signs Most Recent Imported Vital Signs: Most Recent Vital Signs Temp Pulse Resp BP Pulse Ox 36.3 C L 116 H 16 134/70 98 09/05/21 10:15 09/05/21 10:14 09/05/21 05:50 09/05/21 10:14 09/05/21 06:00 Assessment Mental Status: Awake (Alert & Oriented to Patient Baseline) Airway and Respiratory Function: Patent airway with normal (patient baseline) respiratory exam Cardiovascular Function: Hemodynamically Stable Hydration Status: Adequately Hydrated Nausea & Vomiting: Active Nausea or Vomiting Present Nausea and Vomiting Management: Nausea and vomiting active, being addressed with medication (Zofran adminiseted earlier, encouraged nursing to administer Narcan if nausea continues for patient) Pain: Pt. Denies Any Pain Peripheral Nerve Block: Patient did not receive a nerve block
[2021-09-05] MEDS: Naloxone 0.4 MG/ML VIAL IVP (12:56)
--- NOTE | 2021-09-06 07:08 | W.PM.OBPNV1 ---
Date of service: 09/06/21 Time of Service: 07:08 Assessment and Plan Assessment and plan (1) (normal spontaneous vaginal delivery): Status: Acute Assessment and plan: Post day #1. Anticipate D/C home Subjective Subjective Interval history: Patient seen this morning. Doing well. Bottlefeeding. Would like discharge today Exam Physical Exam Vital signs: Temp Pulse Resp BP Pulse Ox 98.6 F 107 H 17 121/85 98 09/05/21 20:00 09/05/21 20:06 09/05/21 20:06 09/05/21 20:06 09/05/21 20:00 Vital Signs Reviewed: Yes Constitutional Constitutional: no acute distress HEENT Exam HEENT Exam: Normal Neck Exam Neck Exam: Normal Respiratory Exam Respiratory Exam: Normal Cardiovascular Exam Cardiovascular Exam: Normal Abdominal Exam Abdomen: Tender Comments: incision, clean, dry, in tact Fundal Exam Fundus: Below Umbilicus and Firm Extremities Exam Extremity Exam: Normal; negative Calf Tenderness or Edema Skin Exam Skin Exam: Normal Neurological Exam Neurological Exam: Normal Psychiatric Exam Psychiatric Exam: Normal Results Hemoglobin/Hematocrit: Hgb 9.3 g/dL (11.2-15.7) L 09/04/21 13:50 Hct 29.7 % (36.0-46.0) L 09/04/21 13:50 Abnormal Lab Findings: Abnormal Labs 09/04/21 13:50 Hgb 9.3 L Hct 29.7 L MCV 70 L MCH 21.8 L MCHC 31.3 L RDW 16.3 H
--- NOTE | 2021-09-06 07:26 | W.PM.OBDISCH ---
Date of service: 09/06/21 Time of Service: 07:26 DS: Diagnosis Discharge Diagnosis (1) (normal spontaneous vaginal delivery): Status: Acute (2) , delivered, current hospitalization: Status: Acute Discharge Plan Disposition Patient Disposition: HOME Condition: Good Discharge Details Reason For Visit: Labor Admit Date/Time: 09/04/21 13:20 Admit Provider: Peggy Steen Attending Provider: Peggy Steen Primary Care Provider: Nadja Doan Hospital Course Hospital Course: Patient presented at 35 weeks in early active labor. She went on to have a successful vaginal approximately 10 hours later. She had a routine day #1 course, and was discharged home Home Meds and New Rx's Prescriptions: New ibuprofen 800 mg tablet 800 mg PO Q8H Qty: 30 0RF No Action Children Multivitamin Tablet,Chewable 2 tab PO DAILY montelukast 10 mg tablet 10 mg PO QPM Qty: 90 12RF Trelegy Ellipta 200-62.5-25 mcg blister with device 1 inh inhalation DAILY Qty: 60 12RF albuterol sulfate [ProAir HFA] 200 PUFF HFA aerosol inhaler 2 puff Inhalation Q4H PRN PRN (Reason: Wheezing) Qty: 1 0RF Discharge Instructions Stand Alone Forms: BC Post Vaginal Deliver Activity:: Activity as Tolerated Equipment/Supplies:: No Equipment Needed Diet:: As Tolerated Discharge Orders Discharge Orders: Discharge Order (Routine); Ordered 09/06/21 Ordered By: Sonya Franco OB:DS Summary Summary Vaginal Delivery Method: Vaginal After Episiotomy Description: None Laceration Description: None Laceration Extension: N/A Contraception Discussed Contraception Discussed: Yes Contraceptive Plan: IUD, Mabel Gender-Baby A: Female weight: 6 lb 12.115 oz Status at Discharge Functional status at discharge: independent ambulation Overall status at discharge: patient is back to baseline Mental Status: mental status grossly normal Speech and Movement: speech and movement normal Mood: congruent mood Affect: normal affect Exam Physical Exam Vital signs: Temp Pulse Resp BP Pulse Ox 98.6 F 107 H 17 121/85 98 09/05/21 20:00 09/05/21 20:06 09/05/21 20:06 09/05/21 20:06 09/05/21 20:00 Narrative: See physical exam dated 09/06/2021 [facility] All Active Problems (Updated 09/06/21 @ 07:26 by Sonya Franco DO) , delivered, current hospitalization (Acute) (normal spontaneous vaginal delivery) (Acute) Asthma (Chronic) labor in third trimester (Acute) contractions with 1 course of steroid given at 31 weeks. Rescue dose at 33 weeks 5. Ampicillin given today. Vaginal discharge during , antepartum (Acute) Insomnia (Acute) Anemia affecting in third trimester (Acute) Hx of delivery, currently (Acute) LGSIL on Pap smear of cervix (Acute) 2019 and 2021. Needs colpo in and 6 week post Migraine headache with aura (Acute) (Acute) Tachycardia (Acute) Medical History (Updated 09/06/21 @ 07:26 by Sonya Franco DO) COVID-19 affecting in first trimester H/O pre-term labor (04/17/15) 37 and 28wk deliveries Pelvic pain Seasonal allergies Surgical History History of section 28 weeks. Cord prolapse. 2 layer closure. 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 Date GA/Weeks # Preg Succ Route Wgt Sex Labor Lgth Anesthesia Location Prov Complic 06/23/09 37 No vaginal Female [facility] 09/03/15 28 No Female [facility] cord accident Delivery Date: 06/23/09 Last Updated by: Peggy Steen M.D. went into labor at 32- 33 weeks, stayed at [facility] until 35wks, came home then had water broken at [facility] due to dilation of 5 cm at 37 weeks. Delivery Date: 09/03/15 Last Updated by: Peggy Steen M.D. Pt went into labor, had a cord prolapse which led to emergent DS: Data Vitals/I&O Vitals and I&O: Vital Signs Temperature 98.6 F 09/05/21 20:00 Pulse 107 H 09/05/21 20:06 Pulse Rhythm Regular 09/05/21 12:40 Respiratory Rate 17 09/05/21 20:06 Blood Pressure 121/85 09/05/21 20:06 Blood Pressure Mean 97 09/05/21 20:00 Pulse Oximetry 98 09/05/21 20:00 Oxygen Delivery Method Room Air 09/04/21 13:36 Oxygen Flow Rate 0 09/04/21 13:36 Pain Level 0 09/05/21 20:06 Comment 09/05/21 04:55 Intake & Output 09/05/21 09/05/21 09/06/21 11:59 23:59 11:59 Intake Total 700 / 700 Output Total 250 / 650 400 / 650 Balance 450 / 50 -400 / 50 Intake: IV 500 / 500 Lactated Ringers 1,000 ml @ 150 500 / 500 mls/hr IV INF[facility]ION [facility] Rx#: [id number] Oral 200 / 200 Output: Urine 250 / 650 400 / 650 Other: Urine Color Bright Red Yellow [place]iqu[place] Urine Appearance Clear Clear Clear Urine Odor None None None Comment states she is voiding fine. no discomfort voiding 2.5 cm sized clot Voiding Methods Toilet Toilet
[2021-09-06 08:25] VITALS: BP 122/81; PULSE 105; RESP 16; TEMP 36.8; O2SAT 98
[2021-09-06] MEDS: Ibuprofen 600 MG TAB PO ×2 (10:48→20:01)
[2021-09-06] MEDS: Acetaminophen 325 MG TAB 650 MG PO ×3 (10:49→20:00)
[2021-09-06 13:00] VITALS: BP 121/82; PULSE 95; RESP 16; TEMP 36.7; O2SAT 97
[2021-09-06 23:20] VITALS: BP 105/64; PULSE 96; RESP 18; TEMP 36.6; O2SAT 99
[2021-09-07] MEDS: Acetaminophen 325 MG TAB 650 MG PO ×2 (02:30→09:10)
[2021-09-07] MEDS: Ibuprofen 600 MG TAB PO ×2 (02:30→09:10)
[2021-09-07 07:28] VITALS: BP 118/79; PULSE 92; RESP 16; TEMP 36.6; O2SAT 99
--- NOTE | 2021-09-07 10:06 | W.PM.OBPNV1 ---
Date of service: 09/07/21 Time of Service: 10:06 Assessment and Plan Assessment and plan (1) , delivered, current hospitalization: Status: Acute Assessment and plan: Successful vaginal after section at 35 weeks with labor. Doing well. Discharge home today. Routine care. Follow-up in the office in 2 and 6 weeks. Subjective Subjective Interval history: Patient seen. Doing well this morning. Bottlefeeding without difficulty no issues or concerns. Baby will be discharged today, mom as well. Exam Physical Exam Vital signs: Temp Pulse Resp BP Pulse Ox 97.9 F 92 H 16 118/79 99 09/07/21 07:28 09/07/21 07:28 09/07/21 07:28 09/07/21 07:28 09/07/21 07:28 Vital Signs Reviewed: Yes Constitutional Constitutional: no acute distress Detailed HEENT Exam Head: Present normocephalic Neck Exam Neck Exam: Normal Respiratory Exam Respiratory Exam: Normal Cardiovascular Exam Cardiovascular Exam: Normal Abdominal Exam Comments: Soft, nontender Fundal Exam Fundus: Below Umbilicus and Firm Extremities Exam Extremity Exam: Normal; negative Calf Tenderness Skin Exam Skin Exam: Normal Neurological Exam Neurological Exam: Normal Psychiatric Exam Psychiatric Exam: Normal Results Hemoglobin/Hematocrit: Hgb 9.3 g/dL (11.2-15.7) L 09/04/21 13:50 Hct 29.7 % (36.0-46.0) L 09/04/21 13:50 Abnormal Lab Findings: Abnormal Labs 09/04/21 13:50 Hgb 9.3 L Hct 29.7 L MCV 70 L MCH 21.8 L MCHC 31.3 L RDW 16.3 H
== END 2021-09-07 10:10 | disposition home or self-care (01) | DRG 806 ==
PROVIDERS: Admitting Provider Obstetrics & Gynecology; PCP Nurse Practitioner Family; Visit Provider Obstetrics & Gynecology
DX: O60.14X0 Preterm labor third trimester with preterm delivery third trimester, not applicable or unspecified (principal); Z37.0 Single live birth; Z3A.35 35 weeks gestation of pregnancy; O34.211 Maternal care for low transverse scar from previous cesarean delivery; N85.8 Other specified noninflammatory disorders of uterus; J45.909 Unspecified asthma, uncomplicated; F32.A Depression, unspecified; O99.02 Anemia complicating childbirth; D64.9 Anemia, unspecified; O99.354 Diseases of the nervous system complicating childbirth; G43.109 Migraine with aura, not intractable, without status migrainosus; Z86.16 Personal history of COVID-19
CPT/HCPCS: 85027; 86850; 86900; 86901; 87635; J2310; J2405; J3010; J3490

== ENCOUNTER 2021-10-22 11:43 | Outpatient (REF) | payer MEDICAID, SELFPAY ==
--- NOTE | 2021-10-22 10:10 | PAPFT_PTH ---
PATIENT: Miya Merritt I LOC: [facility] U#:[id number] AGE/SX: 31/F ROOM: RE10/22/[address]: Peggy Steen MD : 1990 BED: DIS: 10/22/2021 SPEC #: [id number] RECD: 10/22/21 13:03 STATUS: ELANA REAmadou #: [id number] MATTIE: 10/22/21 10:[address]: Peggy Steen DEPT: [facility] Cytology RECD BY: Maryam King ENTERED: 10/22/21 13:04 SP TYPE: PAPFT OTHR DR: Nadja Doan Tissues: 1 - CX/ENDOCX FOR PAP SMEARS Procedures: PAP THIN PREP/[facility] Screening HPV DNA PROBE Comments: [id number]
== END 2021-10-22 11:44 | disposition home or self-care (01) ==
LOC: LBN 11:43
PROVIDERS: PCP Nurse Practitioner Family; Visit Provider Obstetrics & Gynecology
DX: Z12.4 Encounter for screening for malignant neoplasm of cervix (principal); R87.612 Low grade squamous intraepithelial lesion on cytologic smear of cervix (LGSIL); Z11.51 Encounter for screening for human papillomavirus (HPV); R87.810 Cervical high risk human papillomavirus (HPV) DNA test positive
CPT/HCPCS: 88142; 87624

== ENCOUNTER 2021-11-01 14:36 | Outpatient (REF) | payer MEDICAID, SELFPAY ==
[2021-11-01 19:21] LABS: ALT 58 U/L (14-59); AST 38 U/L (15-37); Albumin 3.9 g/dL (3.4-5.0); Alkaline Phosphatase 76 U/L (46-116); Anion Gap 11.8 mmol/L (3-11); BUN 6 mg/dL (7-18); Bilirubin, Total 0.2 mg/dL (0.2-1.0); CO2 25.2 mmol/L (21.0-32.0); Calcium 9.1 mg/dL (8.5-10.1); Chloride 103 mmol/L (98-107); Estimated GFR 77.24 (mL/min/1.73m2); Glucose 103 mg/dL (74-106); Potassium 3.8 mmol/L (3.5-5.1); Sodium 140 mmol/L (136-145); Total Protein 7.5 g/dL (6.4-8.2)
== END 2021-11-01 14:37 | disposition home or self-care (01) ==
LOC: LBN 14:36
PROVIDERS: PCP Nurse Practitioner Family; Visit Provider Physician Assistant Medical
DX: U07.1 COVID-19 (principal)
CPT/HCPCS: 80053

== ENCOUNTER 2021-11-11 15:36 | Outpatient (REF) | payer MEDICAID, SELFPAY ==
--- NOTE | 2021-11-11 14:20 | CER_PTH ---
PATIENT: Miya Merritt I LOC: [facility] U#:[id number] AGE/SX: 31/F ROOM: RE11/11/[address]: Peggy Steen MD : 1990 BED: DIS: 11/11/2021 SPEC #: [id number] RECD: 11/11/21 17:02 STATUS: ELANA REAmadou #: [id number] MATTIE: 11/11/21 14:[address]: Peggy Steen DEPT: Surgical Specimen RECD BY: Maryam King ENTERED: 11/11/21 17:03 SP TYPE: ENRIQUE ORTIZ DR: Nadja Doan Tissues: 1 - CERVICAL BIOPSY 2 - ENDOCERVICAL BX/CURRETTE Procedures: GROSS AND MICRO LEVEL 4 Comments: [id number]
== END 2021-11-11 15:37 | disposition home or self-care (01) ==
LOC: LBN 15:36
PROVIDERS: PCP Nurse Practitioner Family; Visit Provider Obstetrics & Gynecology
DX: N87.0 Mild cervical dysplasia (principal); R87.612 Low grade squamous intraepithelial lesion on cytologic smear of cervix (LGSIL); R87.810 Cervical high risk human papillomavirus (HPV) DNA test positive
CPT/HCPCS: 88305

== ENCOUNTER → 2021-12-24 12:06 | Outpatient (CLI) | payer MEDICAID, SELFPAY ==
--- NOTE | 2021-12-24 10:15 | DI.RAD_ITS ---
Exam(s) XR PELVIS AP EXAM: XR PELVIS AP CLINICAL HISTORY: iud localization T83.32XA DISPLACEMENT OF IUD. TECHNIQUE: 2D digital imaging was performed. COMPARISON: No exams were available for comparison FINDINGS: Single AP view: No evidence of pelvic nor hip fracture. No degenerative changes in the hips. No evidence of avascul ar necrosis. No evidence of developmental dysplasia. Bone density normal. No osseous lesions. Sac roiliac joints appear unremarkable. IMPRESSION: No significant osseous findings in pelvis and hips. DATA REPOSITORY: RADIATION DOSE DELIVERED:
== END ==
PROVIDERS: PCP Nurse Practitioner Family; Visit Provider Obstetrics & Gynecology
DX: T83.32XA Displacement of intrauterine contraceptive device, initial encounter (principal)
CPT/HCPCS: 72170

== ENCOUNTER 2022-02-26 17:34 | Outpatient (REF) | payer MEDICAID, SELFPAY ==
[2022-02-26 15:47] LABS: Abs Immature Grans 0.02 10^3/uL (0.0-0.06); Absolute Basophil Count 0.04 10^3/uL (0.0-0.2); Absolute Monocyte Count 0.34 10^3/uL (0.1-0.8); Absolute Neutrophil Count 3.59 10^3/uL (1.2-6.7); Basophils % 0.6; HCT 38.5 % (36.0-46.0); HGB 11.6 g/dL (11.2-15.7); Immature Grans % 0.3; Lymphocytes % 26.6; MCH 21.8 pg (27.0-33.0); MCHC 30.1 % (32.0-36.0); MCV 73 fL (80-95); MPV 11.6 fL (8.0-11.0); Monocytes % 5.3; Neutrophils % 56.2; Platelet Count 312 10^3/uL (130-400); RBC 5.31 10^6/uL (3.93-5.22); RDW 17.4 % (11.7-14.6); RDW-SD 45.4 fL; WBC 6.39 10^3/uL (4.4-10.8)
[2022-02-26 16:10] LABS: Diff Comment RBC Morph Reviewed; Microcytosis 2+
[2022-02-27 20:09] LABS: Alternaria Tenuis IgE <0.35 kU/L; Aspergillus Fumigatus IgE <0.35 kU/L; Bermuda Grass IgE 0.85 kU/L; Botrytis Cinerea IgE <0.35 kU/L; Cat Epithelium IgE 21.6 kU/L; Cedar, IgE <0.35 kU/L; Cladosporium IgE <0.35 kU/L; Cockroach IgE <0.35 kU/L; Cottonwood IgE 0.91 kU/L; Curvularia Lunata, IgE <0.35 kU/L; D Farinae IgE <0.35 kU/L; D Pteronyssinus IgE <0.35 kU/L; Dog Dander IgE 10.3 kU/L; Elm IgE 3.04 kU/L; Epicoccum purpurascens IgE <0.35 kU/L; False Ragweed, IgE 0.42 kU/L; Giant Ragweed IgE 1.22 kU/L; Goldenrod IgE <0.35 kU/L; House Dust/Greer Lab, IgE 5.71 kU/L; Oak IgE 14.2 kU/L; Penicillium chrysogenum IgE <0.35 kU/L; Short Ragweed IgE 0.54 kU/L; Silver Birch IgE 46.5 kU/L; Stemphyllium IgE <0.35 kU/L
[2022-02-27 20:14] LABS: Douglas Fir, IgE <0.35 kU/L; Mouse Serum Protein IgE <0.35 kU/L; Spruce, IgE <0.35 kU/L
[2022-02-28 08:22] LABS: IgE 383 IU/mL (<158)
[2022-03-04 10:47] LABS: CLASS 2; Cedar Red IgE 1.03 kU/L (<0.35)
== END 2022-02-26 17:35 | disposition home or self-care (01) ==
LOC: LBN 17:34
PROVIDERS: PCP Nurse Practitioner Family; Visit Provider Student in an Organized Health Care Education/Training Program
DX: J45.909 Unspecified asthma, uncomplicated (principal); Z01.82 Encounter for allergy testing
CPT/HCPCS: 86003; 82785; 84307; 85025

== ENCOUNTER 2022-02-27 01:25 | Outpatient (CLI) | payer MEDICAID, SELFPAY ==
--- NOTE | 2022-02-27 08:06 | DI.RAD_ITS ---
Exam(s) XR CHEST 2V PA LATERAL EXAM: XR CHEST 2V PA LATERAL CLINICAL HISTORY: non resolving asthma with treatment,[id number]. TECHNIQUE: 2D digital imaging was performed. COMPARISON: CR,XR XR CHEST 2V PA LATERAL from 12/04/2020 FINDINGS: 2 views: Heart size is normal. The mediastinum is not widened. Lungs are clear. No infiltrates nor pleural effusions. IMPRESSION: No acute pulmonary findings. DATA REPOSITORY: RADIATION DOSE DELIVERED:
== END 2022-02-27 01:45 ==
LOC: DI 01:25
PROVIDERS: PCP Nurse Practitioner Family; Visit Provider Student in an Organized Health Care Education/Training Program
DX: J45.909 Unspecified asthma, uncomplicated (principal)
CPT/HCPCS: 71046

== ENCOUNTER 2022-04-17 19:20 | Emergency (ER) | payer MEDICAID, SELFPAY ==
[2022-04-17 19:24] VITALS: BP 149/97; PULSE 101; RESP 18; TEMP 36.7; O2SAT 99
--- NOTE | 2022-04-17 20:15 | DI.RAD_ITS ---
Exam(s) XR CHEST 2V PA LATERAL EXAM: XR CHEST 2V PA LATERAL CLINICAL HISTORY: cough, chest pain, sob TECHNIQUE: 2D digital imaging was performed. COMPARISON: CR XR CHEST 2V PA LATERAL from 02/27/2022 FINDINGS: HEART: Normal size. Aorta: Not dilated. PULMONARY VASCULATURE: Normal. LUNGS: Clear. PLEURAL SPACE: No pleural effusion or pneumothorax. BONE:Unremarkable for age. IMPRESSION: No acute abnormality. DATA REPOSITORY: RADIATION DOSE DELIVERED:
[2022-04-17 21:27] LABS: COVID-19 PCR Negative (Negative); Influenza A PCR Negative (Negative); Influenza B PCR Negative (Negative); RSV PCR Negative (Negative)
--- NOTE | 2022-04-17 21:47 | ED.GENADUL_ITS ---
Discharge Plan Disposition Patient Disposition: Home Discharge Details Clinical Impression: Upper respiratory infection Primary Care Provider: Nadja Doan ED Provider: Maryam Saldivar Home Meds and New Rx's Prescriptions: Continued albuterol sulfate [Ventolin HFA] 90 mcg/actuation HFA aerosol inhaler 2 puff inhalation Q6H PRN (Reason: shortness of breath or wheezing) Qty: 8.5 12RF Discharge Instructions Instructions: Upper Respiratory Infection (ED) Additional Instructions: Follow up with your primary care physician and your supervisor transferring and boxing on Thursday Continue use your medications as prescribed Increase your fluids Stay rested Return earlier with new or worsening complaints Referrals: Nadja Doan [Primary Care Provider] - Discharge Data Discharge Date/Time-TO BE ENTERED AT DEPARTURE: 04/17/22 22:12 Medical Decision Making This 32-year-old female for report of upper respiratory complaints, last patient does have a significant history of asthma, she is in no acute respiratory distress in fact her oxygenation is 99% on room air Chest x-ray does not show evidence of pneumonia, very low suspicion for pulmonary embolism clinically, patient is not tachycardic or hypoxic nor tachypneic I am encouraging her to follow-up with her supervisor transferring and boxing, Dr. Vargas and she will continue on her prescribed medications Return precautions reviewed and patient expressed understanding Discharged home in stable condition with stable vitals Medical Records Medical records reviewed: Yes I reviewed the patient's medical records. Lab Data Lab results reviewed: Yes I reviewed the patient's lab results. HPI General Date/Time Provider Initiated Documentation: 04/17/22 20:10 . HPI Narrative: This 32-year-old female presents with sinus congestion and shortness of breath with asthma for the past 2 weeks. She states she was tested for COVID yesterday and was negative. Denies any fever or chills. Denies any known sick contacts. Did just recently start on a new medication for asthma. Does not smoke tobacco. Denies chance of . Related Data Home Medications Medication Instructions Recorded Confirmed albuterol sulfate 90 mcg/actuation 2 puff inhalation Q6H PRN 04/01/22 04/17/22 aerosol inhaler (Ventolin HFA) shortness of breath or wheezing #8.5 grams Previous Rx's Medication Instructions Recorded albuterol sulfate 90 mcg/actuation 2 puff inhalation Q6H PRN 04/01/22 aerosol inhaler (Ventolin HFA) shortness of breath or wheezing #8.5 grams Allergies Allergy/AdvReac Type Severity Reaction Status Date / Time banana Allergy Unknown Skin Rash Verified 02/26/22 09:03 peach Allergy Verified 02/26/22 09:03 vancomycin Allergy Swelling/Ed Verified 02/26/22 09:03 london adhesive tape AdvReac Intermediate Verified 02/26/22 09:03 budesonide [From Symbicort] AdvReac Skin Rash Verified 02/26/22 09:03 formoterol [From Symbicort] AdvReac Skin Rash Verified 02/26/22 09:03 General Stated Complaint: RespSymp ROXANNE: 3 PFSH All Active Problems (Updated 04/17/22 @ 21:50 by TRISHA Alvares) Tachycardia (Acute) Asthma (Chronic) Migraine headache with aura (Acute) Insomnia (Acute) Menstrual abnormality (Acute) Upper respiratory infection (Acute) Medical History (Updated 04/17/22 @ 21:50 by TRISHA Alvares) H/O pre-term labor (04/17/15) 37 and 28wk deliveries [facility] on Pap smear of cervix 2019 and 2021 (HPV+). [place] 11/11/21: benign -->Repeat pap 11/15 (normal spontaneous vaginal delivery) Pelvic pain Seasonal allergies Surgical History History of section 28 weeks. Cord prolapse. 2 layer closure. 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 Date GA/Weeks # Preg Succ Route Wgt Sex Labor Lgth Anesth esia Location Prov Complic 06/23/09 37 No vaginal Female [facility] 09/03/15 28 No Female [facility] cord accident 09/05/21 35 No Yes vaginal Female 14hr [facility] Dr[facility] Raimundo pardo Delivery Date: 06/23/09 Last Updated by: Peggy Steen M.D. went into labor at 32- 33 weeks, stayed at [facility] until 35wks, came home then had water broken at [facility] due to dilation of 5 cm at 37 weeks. Delivery Date: 09/03/15 Last Updated by: Peggy Steen M.D. Pt went into labor, had a cord prolapse which led to emergent c- section Delivery Date: 09/05/21 Last Updated by: Peggy Steen MD PTL&D, Lilia Exam Const General: cooperative and comfortable HENMT Other: No sinus tenderness Resp Effort & Inspection: normal respiratory effort Auscultation: clear to auscultation bilaterally Cardio Rate: regular rate Rhythm: regular rhythm GI Inspection: normal to inspection Skin General skin exam: no rashes or lesions noted Extrem Other: No calf swelling or tenderness Course Vital Signs Vital signs: Vital Signs Temperature 36.7 C 04/17/22 19:24 Pulse 101 H 04/17/22 19:24 Respiratory Rate 18 04/17/22 19:24 Blood Pressure 149/97 H 04/17/22 19:24 Pulse Oximetry 99 04/17/22 19:24 Temperature 36.7 C 04/17/22 19:24 Temperature Source Oral 04/17/22 19:24 Pulse 101 H 04/17/22 19:24 Respiratory Rate 18 04/17/22 19:24 Respiratory Effort Non-Labored, Short of Breath 04/17/22 19:33 Respiratory Depth Normal 04/17/22 19:33 Blood Pressure 149/97 H 04/17/22 19:24 Blood Pressure Position Sitting 04/17/22 19:24 Pulse Oximetry 99 04/17/22 19:24 Oxygen Delivery Method Room Air 04/17/22 19:24 Oxygen Flow Rate 0 04/17/22 19:24 Pain Level 6 04/17/22 19:24 Comment chest congestion with cough, irritating lungs 04/17/22 19:24
[2022-04-17 21:53] LABS: Source Nasopharynx
--- NOTE | 2022-04-17 21:54 | DI.VRAD_ITS ---
PROCEDURE INFORMATION: Exam: XR Chest Exam date and time: 04/17/2022 9:30 PM Age: 32 years old Clinical indication: Cough and shortness of breath; Additional info: Cough, chest pain, SOB TECHNIQUE: Imaging protocol: Radiologic exam of the chest. Views: 2 views. COMPARISON: CR XR CHEST 2V PA LATERAL 02/27/2022 8:06 AM FINDINGS: Lungs: No acute lung infiltrates. No edema. Pleural spaces: No pleural effusion. No pneumothorax. Heart/Mediastinum: Normal heart size and mediastinal contour. Bones/joints: Unremarkable. IMPRESSION: 1. No acute infiltrates or pleural changes. 2. Stable exam since 02/27/2022. Dictated and Authenticated by: Demar Zacarias MD. Ordering:AKANKSHA Francisco MD
[2022-04-17 22:08] VITALS: BP 137/89; PULSE 87; RESP 20; O2SAT 97
== END 2022-04-17 22:12 | disposition home or self-care (01) ==
PROVIDERS: Emergency Provider Physician Assistant; PCP Nurse Practitioner Family
DX: J06.9 Acute upper respiratory infection, unspecified (principal); J45.909 Unspecified asthma, uncomplicated; Z20.822 Contact with and (suspected) exposure to COVID-19
CPT/HCPCS: 87637; 99283; 71046; 99282

== ENCOUNTER 2022-05-21 07:25 | Emergency (ER) | payer MEDICAID, SELFPAY ==
[2022-05-21 07:34] VITALS: BP 127/69; PULSE 108; RESP 18; TEMP 37.3; O2SAT 97
[2022-05-21] MEDS: Normal Saline 1,000 ML 1000 ML IV (08:40)
[2022-05-21] MEDS: Metoclopramide 10 MG/2 ML VIAL IVP (08:41)
--- NOTE | 2022-05-21 08:51 | ED.GENADUL_ITS ---
Discharge Plan Disposition Patient Disposition: Home Condition: Stable Discharge Details Clinical Impression: Gastroenteritis, Abnormal LFTs (liver function tests) Primary Care Provider: Hieu Katz ED Provider: Gavin Su Home Meds and New Rx's Prescriptions: New ondansetron 4 mg tablet,disintegrating 4 mg PO Q6H PRN (Reason: nausea and vomiting) Qty: 10 0RF Continued albuterol sulfate [Ventolin HFA] 90 mcg/actuation HFA aerosol inhaler 2 puff inhalation Q6H PRN (Reason: shortness of breath or wheezing) Qty: 8.5 12RF montelukast 10 mg Tablet 10 mg PO DAILY Trelegy Ellipta 200-62.5-25 mcg Blister With Device 1 inh INHALATION DAILY Dupixent Syringe 300 mg/2 mL Syringe 300 mg SUBCUT Q2W Discharge Instructions Instructions: Gastroenteritis (ED) Additional Instructions: Please continue to stay well-hydrated and get plenty of rest. If you have any new or worsening symptoms feel free to return the emergency department for reassessment otherwise follow-up with your primary care provider for recheck of your labs as discussed. Stand Alone Forms: Work Release Medical Decision Making Patient presenting to the emergency department for chief complaint of nausea vomiting diarrhea. She states that this started 3 days ago with persistent symptoms. She has been taking Zofran at home but has not provided much relief. She states that she has also had decreased urine output due to low p.o. intake. Patient also does state some slight feeling of asthma may have flared up causing some chest tightness/shortness of breath. Patient denies any chest pain or discomfort, denies any abdominal pain or discomfort, denies fever or chills. Of note patient is HERE with her daughter who has similar symptoms. Physical exam vital exam with clear lung sounds, no tachycardia, benign abdominal exam with no peritoneal findings no point tenderness normal. Patient is overall well- appearing and Nontoxic. Given 3 days of illness with decreasing urine output we will plan on checking fluids pending also give Reglan given Zofran at home is not helping. Reviewed patient's labs and patient is negative for COVID and influenza via antigen testing. Reviewed CBC which does show low white count, RBC low hemoglobin low MCV MCH otherwise nondiagnostic labs. Patient had some microcytosis we will results refer patient to primary care provider for recheck of labs. CMP shows slightly decreased potassium, calcium of 8.4, some elevation of AST and ALT which I will question patient on acetaminophen or alcohol usage. Reassessed patient and patient states significant improvement after fluids. Patient will p.o. challenge her oral potassium for repletion and we will plan on discharging patient to follow-up with primary care provider for elevated ALT and AST and borderline anemia. We will send patient home with more Zomariana as she did not like the way the Reglan made her feel. After discussion of diagnosis and plan of care patient has no further needs, questions, or concerns and states clear understanding to return to the emergency department for any worsening symptoms. This documentation was generated using [employer] system, please disregard any oddities of phrase or misspellings. Lab Data Lab results reviewed: Yes I reviewed the patient's lab results. HPI General Mode of arrival: ambulatory . Date/Time Provider Initiated Documentation: 05/21/22 07:35 . Limitations to Documentation: no limitations . Information obtained by: patient and RN notes reviewed . History of Present Illness 32 year old F presents to the emergency department with the chief complaint of Nausea, vomiting diarrhea, described as moderate, Quality is described as other (Denies pain), Patient started experiencing this day(s) (3) and it has been constant. No relieving factors improve symptom(s), No exacerbating factors reported . Patient notes shortness of breath. Patient did receive the following treatments prior to arrival, none Related Data Home Medications Medication Instructions Recorded Confirmed albuterol sulfate 90 mcg/actuation 2 puff inhalation Q6H PRN 04/01/22 05/21/22 aerosol inhaler (Ventolin HFA) shortness of breath or wheezing #8.5 grams dupilumab 300 mg/2 mL subcutaneous 300 mg subcut Q2W 05/21/22 05/21/22 syringe (Dupixent) fluticasone fur. 200 mcg-umeclid 1 inh inhalation DAILY 05/21/22 05/21/22 62.5 mcg-vilant 25 mcg inhalat.powder (Trelegy Ellipta) montelukast 10 mg tablet 10 mg PO DAILY 05/21/22 05/21/22 ondansetron 4 mg disintegrating 4 mg PO Q6H PRN nausea and 05/21/22 tablet vomiting #10 tabs Previous Rx's Medication Instructions Recorded albuterol sulfate 90 mcg/actuation 2 puff inhalation Q6H PRN 04/01/22 aerosol inhaler (Ventolin HFA) shortness of breath or wheezing #8.5 grams ondansetron 4 mg disintegrating 4 mg PO Q6H PRN nausea and 05/21/22 tablet vomiting #10 tabs Allergies Allergy/AdvReac Type Severity Reaction Status Date / Time banana Allergy Unknown Skin Rash Verified 05/21/22 07:34 peach Allergy Verified 05/21/22 07:34 vancomycin Allergy Swelling/Ed Verified 05/21/22 07:34 london adhesive tape AdvReac Intermediate Verified 05/21/22 07:34 budesonide [From Symbicort] AdvReac Skin Rash Verified 05/21/22 07:34 formoterol [From Symbicort] AdvReac Skin Rash Verified 05/21/22 07:34 General Stated Complaint: RespSymp ROXANNE: 4 Review of Systems Constitutional Constitutional: Denies chills, Denies fever(s) and Reports poor appetite ENT Ears, Nose, Mouth, and Throat: Denies nasal congestion and Denies sore throat Cardiovascular Cardiovascular: Denies chest pain and Reports dyspnea (Similar to her previous asthma) Respiratory Respiratory: Denies cough and Reports dyspnea (Similar to her previous asthma) Gastrointestinal Gastrointestinal: Reports as per HPI, Denies abdominal pain, Denies melena, Denies change in bowel habits, Denies constipation, Reports diarrhea, Reports nausea and Reports vomiting Genitourinary Genitourinary: Denies hematuria, Denies dysuria, Denies urinary incontinence, Denies urinary hesitancy, Denies urinary urgency and Reports other (Decreased urine) Integumentary/Breasts Skin/Breast: Denies rash PFSH All Active Problems (Updated 05/21/22 @ 09:59 by Gavin Su NP) Tachycardia (Acute) Asthma (Chronic) Migraine headache with aura (Acute) Insomnia (Acute) Menstrual abnormality (Acute) Gastroenteritis (Acute) Abnormal LFTs (liver function tests) (Acute) Medical History H/O pre-term labor (04/17/15) 37 and 28wk deliveries [facility] on Pap smear of cervix 2019 and 2021 (HPV+). [place] 11/11/21: benign -->Repeat pap 11/15 (normal spontaneous vaginal delivery) Pelvic pain Seasonal allergies Surgical History History of section 28 weeks. Cord prolapse. 2 layer closure. 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 Date GA/Weeks # Preg Succ Route Wgt Sex [facility] 37 No vaginal Female [facility] 09/03/15 28 No Female [facility] cord accident 09/05/21 35 No Yes vaginal Female [facility] Raimundo prado Delivery Date: 06/23/09 Last Updated by: Peggy Steen M.D. went into labor at 32- 33 weeks, stayed at [facility] until 35wks, came home then had water broken at [facility] due to dilation of 5 cm at 37 weeks. Delivery Date: 09/03/15 Last Updated by: Peggy Steen M.D. Pt went into labor, had a cord prolapse which led to emergent c- section Delivery Date: 09/05/21 Last Updated by: Peggy Steen MD PTL&D, Lilia Exam Const General: cooperative Orientation: alert, awake and oriented x3 Resp Effort & Inspection: normal respiratory effort and able to speak in complete sentences Auscultation: clear to auscultation bilaterally, no rales and no wheezes Cardio Rate: regular rate Rhythm: regular rhythm Heart Sounds: S1 normal and S2 normal GI Palpation: soft, no hepatosplenomegaly, not firm, no guarding, no masses, no pulsatile masses, not rigid, no splenomegaly and tender Auscultation: normal bowel sounds Back/Spine/Pelvis Back: no CVA tenderness Neuro General: patient alert, patient awake, patient oriented x3, gait normal and moves all extremities Course Vital Signs Vital signs: Vital Signs Temperature 37.3 C 05/21/22 07:34 Pulse 108 H 05/21/22 07:34 Respiratory Rate 18 05/21/22 07:34 Blood Pressure 127/69 05/21/22 07:34 Pulse Oximetry 97 05/21/22 07:34 Temperature 37.3 C 05/21/22 07:34 Pulse 108 H 05/21/22 07:34 Respiratory Rate 18 05/21/22 07:34 Respiratory Effort Normal, Non-Labored 05/21/22 07:33 Blood Pressure 127/69 05/21/22 07:34 Pulse Oximetry 97 05/21/22 07:34 Oxygen Delivery Method Room Air 05/21/22 07:34 Oxygen Flow Rate 0 05/21/22 07:34
[2022-05-21 08:55] VITALS: BP 128/82; PULSE 102; RESP 18; O2SAT 98
[2022-05-21 08:55] LABS: Abs Immature Grans 0.02 10^3/uL (0.0-0.06); Absolute Basophil Count 0.02 10^3/uL (0.0-0.2); Absolute Eosinophil Count 0.22 10^3/uL (0.0-0.7); Absolute Lymphocyte Count 1.13 10^3/uL (1.2-3.4); Absolute Monocyte Count 0.44 10^3/uL (0.1-0.8); Basophils % 0.5; Eosinophils % 5.2; HCT 39.3 % (36.0-46.0); HGB 12.3 g/dL (11.2-15.7); Immature Grans % 0.5; Lymphocytes % 26.7; MCH 22.1 pg (27.0-33.0); MCHC 31.3 % (32.0-36.0); MCV 71 fL (80-95); MPV 10.4 fL (8.0-11.0); Monocytes % 10.4; Neutrophils % 56.7; RBC 5.57 10^6/uL (3.93-5.22); RDW 15.5 % (11.7-14.6); RDW-SD 39.5 fL; WBC 4.24 10^3/uL (4.4-10.8)
[2022-05-21 09:09] LABS: ALT 88 U/L (14-59); AST 99 U/L (15-37); Albumin 3.6 g/dL (3.4-5.0); Alkaline Phosphatase 58 U/L (46-116); Anion Gap 8.1 mmol/L (3-11); BUN 9 mg/dL (7-18); Bilirubin, Total 0.3 mg/dL (0.2-1.0); CO2 26.9 mmol/L (21.0-32.0); Calcium 8.4 mg/dL (8.5-10.1); Chloride 104 mmol/L (98-107); Estimated GFR 76.76 (mL/min/1.73m2); Glucose 99 mg/dL (74-106); Lipase 26 U/L (16-77); Magnesium 2.2 mg/dL (1.8-2.4); Potassium 3.4 mmol/L (3.5-5.1); Sodium 139 mmol/L (136-145); Total Protein 7.4 g/dL (6.4-8.2)
[2022-05-21 09:12] LABS: Diff Comment Diff Reviewed; Microcytosis 2+; Platelet Count 238 10^3/uL (130-400)
[2022-05-21] MEDS: Potassium Chloride 10 MEQ TABCR PO (10:12)
[2022-05-21] MEDS: Ondansetron O.D.T. 4 MG TABEF, 3 TABS/BTL PO (10:12)
[2022-05-21 10:14] VITALS: BP 126/81; PULSE 97; RESP 16; TEMP 36.8; O2SAT 98
--- NOTE | 2022-05-21 18:01 | NUR.NOTE ---
Nursing Note: Referral faxed to PCP for abnormal labs in 1 to 2 weeks.
== END 2022-05-21 10:39 | disposition home or self-care (01) ==
PROVIDERS: Emergency Provider Nurse Practitioner Family; PCP Nurse Practitioner Family
DX: K52.9 Noninfective gastroenteritis and colitis, unspecified (principal); R79.89 Other specified abnormal findings of blood chemistry; D72.819 Decreased white blood cell count, unspecified; J45.909 Unspecified asthma, uncomplicated; Z79.51 Long term (current) use of inhaled steroids
CPT/HCPCS: 36415; 80053; 83690; 96361; 96374; 99284; 81003; 83735; 85025; J2765

== ENCOUNTER 2022-07-14 02:22 | Outpatient (CLI) | payer MEDICAID, SELFPAY ==
[2022-07-14 07:55] LABS: ALT 50 U/L (14-59); AST 39 U/L (15-37); Albumin 3.9 g/dL (3.4-5.0); Alkaline Phosphatase 71 U/L (46-116); Anion Gap 10.1 mmol/L (3-11); BUN 8 mg/dL (7-18); Bilirubin, Total 0.4 mg/dL (0.2-1.0); CO2 25.9 mmol/L (21.0-32.0); Calcium 9.1 mg/dL (8.5-10.1); Chloride 104 mmol/L (98-107); Estimated GFR 76.76 (mL/min/1.73m2); Glucose 117 mg/dL (74-106); Potassium 3.7 mmol/L (3.5-5.1); Sodium 140 mmol/L (136-145); Total Protein 7.9 g/dL (6.4-8.2)
== END 2022-07-14 02:23 | disposition home or self-care (01) ==
LOC: LBO 02:23
PROVIDERS: PCP Physician Assistant; Visit Provider Nurse Practitioner Family
DX: R79.89 Other specified abnormal findings of blood chemistry (principal)
CPT/HCPCS: 36415; 80053

== ENCOUNTER 2022-07-22 22:32 | Outpatient (REF) | payer MEDICAID, SELFPAY ==
[2022-07-22 22:01] LABS: HCT 37.9 % (36.0-46.0); HGB 11.8 g/dL (11.2-15.7); MCHC 31.1 % (32.0-36.0); MPV 10.9 fL (8.0-11.0); Platelet Count 326 10^3/uL (130-400); RBC 5.36 10^6/uL (3.93-5.22); RDW 16.5 % (11.7-14.6); RDW-SD 41.5 fL; WBC 7.13 10^3/uL (4.4-10.8)
[2022-07-23 00:19] LABS: Vitamin B12 548 pg/mL (193-986)
[2022-07-23 01:50] LABS: MCV 71 fL (80-95)
== END 2022-07-22 22:33 | disposition home or self-care (01) ==
LOC: LBN 22:32
PROVIDERS: PCP Physician Assistant; Visit Provider Nurse Practitioner Family
DX: D72.819 Decreased white blood cell count, unspecified; D64.9 Anemia, unspecified
CPT/HCPCS: 85027; 82607

== ENCOUNTER 2022-11-17 08:51 | Outpatient (REF) | payer MEDICAID, SELFPAY ==
--- NOTE | 2022-11-17 09:15 | PAPFT_PTH ---
PATIENT: Miya Merritt I LOC: [facility] U#:[id number] AGE/SX: 32/F ROOM: RE11/17/[address]: Peggy Steen MD : 1990 BED: DIS: 11/17/2022 SPEC #: [id number] RECD: 11/17/22 18:04 STATUS: ELANA REQ #: [id number] MATTIE: 11/17/22 09:[address]: Peggy Steen DEPT: [facility] Cytology RECD BY: Maryam King ENTERED: 11/17/22 18:04 SP TYPE: PAPFT OTHR DR: Hieu Cardoza DNP Tissues: 1 - CX/ENDOCX FOR PAP SMEARS Procedures: PAP THIN PREP/[facility] Screening HPV DNA PROBE Comments: [id number] (HPV 16 & 18/45)
== END 2022-11-17 08:52 | disposition home or self-care (01) ==
LOC: LBN 08:51
PROVIDERS: PCP Nurse Practitioner Family; Visit Provider Obstetrics & Gynecology
DX: Z12.4 Encounter for screening for malignant neoplasm of cervix (principal); R87.610 Atypical squamous cells of undetermined significance on cytologic smear of cervix (ASC-US); Z11.51 Encounter for screening for human papillomavirus (HPV); R87.810 Cervical high risk human papillomavirus (HPV) DNA test positive
CPT/HCPCS: 88142; 87624

== ENCOUNTER 2022-12-19 16:33 | Emergency (ER) | payer MEDICAID, SELFPAY ==
[2022-12-19] VITALS (12 sets, daily range): BP systolic 126–142; BP diastolic 80–98; PULSE 87–122; RESP 14–28; TEMP 37.3; O2SAT 99–100
--- NOTE | 2022-12-19 16:45 | DI.RAD_ITS ---
Exam(s) XR CHEST 2V PA LATERAL EXAM: XR CHEST 2V PA LATERAL CLINICAL HISTORY: palpitations TECHNIQUE: 2D digital imaging was performed. COMPARISON: No exams were available for comparison FINDINGS: HEART: Normal size. Aorta: Not dilated. PULMONARY VASCULATURE: Normal. LUNGS: Clear. PLEURAL SPACE: No pleural effusion or pneumothorax. BONE:Unremarkable for age. IMPRESSION: No acute abnormality. DATA REPOSITORY: RADIATION DOSE DELIVERED:
--- NOTE | 2022-12-19 16:45 | RT.EKG_ITS ---
APPROVED REPORT Exam: Resting ECG Reason for Exam: high hr Patient Location: E HR:105 bpm ECG Measurements Heart Rate 105 AXIS DE 122 P 75 QRSd 85 QRS 72 QT 341 T 40 QTc 451 Conclusion Sinus tachycardia...rate> 99 No change vs 07/14
[2022-12-19 17:12] LABS: Abs Immature Grans 0.02 10^3/uL (0.0-0.06); Absolute Monocyte Count 0.08 10^3/uL (0.1-0.8); Absolute Neutrophil Count 6.35 10^3/uL (1.2-6.7); HCT 37.8 % (36.0-46.0); HGB 11.9 g/dL (11.2-15.7); Immature Grans % 0.3; Lymphocytes % 9.8; MCH 23.2 pg (27.0-33.0); MCHC 31.5 % (32.0-36.0); MCV 74 fL (80-95); MPV 10.2 fL (8.0-11.0); Monocytes % 1.1; Neutrophils % 88.8; Platelet Count 295 10^3/uL (130-400); RBC 5.12 10^6/uL (3.93-5.22); RDW 16.5 % (11.7-14.6); RDW-SD 43.8 fL; WBC 7.15 10^3/uL (4.4-10.8)
--- NOTE | 2022-12-19 17:19 | ED.GENADUL_ITS ---
Discharge Plan Disposition Patient Disposition: Home Condition: Good Discharge Details Clinical Impression: Palpitations, POTS (postural orthostatic tachycardia syndrome) Primary Care Provider: Hieu Katz ED Provider: Renee Valdez Home Meds and New Rx's Prescriptions: Continued amitriptyline 10 mg tablet 10 mg PO DAILY levonorgestrel-ethinyl estrad 0.1-20 mg-mcg tablet 1 tab PO DAILY Qty: 84 4RF Rx Instructions: May skip placebo pills and start the next pack right away to use in a continuous fashion. gabapentin 100 mg capsule 200 mg PO DAILY albuterol sulfate [Ventolin HFA] 90 mcg/actuation HFA aerosol inhaler 2 puff inhalation Q6H PRN (Reason: shortness of breath or wheezing) Qty: 8.5 12RF Trelegy Ellipta 200-62.5-25 mcg blister with device 1 inh INHALATION DAILY Qty: 60 12RF Dupixent Syringe 300 mg/2 mL syringe 300 mg SUBCUT Q2W Qty: 4 12RF montelukast 10 mg Tablet 10 mg PO DAILY Discharge Instructions Instructions: Heart Palpitations (ED) Additional Instructions: As we discussed, your imaging and laboratory work-up was reassuring here today. I am concerned that some of your palpitations and pots syndrome may be escalated with your prednisone burst. I would like for your to have another Holter monitor but this will need to be ordered by your primary care. Please call Thursday to discuss and schedule follow up appointment. Please get up slowly, take care to rest when you are having the palpitations. If you develop any new/worsening symptoms please seek care urgently once again. Please call again Thursday to schedule follow up with electrophysiology. Referrals: Hieu Katz, J[employer] COACH/JOB DEVELOPER [Primary Care Provider] - Discharge Data Discharge Date/Time-TO BE ENTERED AT DEPARTURE: 12/19/22 18:47 Medical Decision Making Patient is a pleasant 32-year-old female presented with chief complaint of palpitations. Patient reports that she has a history of postural tachycardia syndrome. Was officially diagnosed in March 2021 by [facility] cardiology. She reports that at that time she was so any treatment was withheld. She reports that she began taking metoprolol about a month ago but due to also having asthma, had to stop this medication after only 1 week of taking it. She states that last week she then began having increased asthma symptoms once again and began on steroid burst 2 days ago. She reports that for the past 24 hours she has been having fairly consistent palpitations. She reports that she had chest pain prior to the onset of palpitations about 1 week ago. Chest pain always occurred when at rest. Palpitations also occur when at rest. No syn copal episodes or lightheadedness. She denies any fever/chills, or other constitutional symptoms. Feels like she is hydrating and eating normally. Denies being but is on oral contraceptive. She does report a family history of coagulopathy but states that she has not formally been tested for this. On exam, patient appears nontoxic. She is initially tachycardic in the 120s but the time I evaluate her, her heart rate is 102. ECG was obtained and reviewed by the emergency physician showing sinus tachycardia with no evidence of ischemia, heart rate of 105. Patient's lung sounds are clear. No evidence of wheezing at this time. Aside from the elevated heart rate, normal auscultation with no murmurs rubs or gallops. No lower extremity edema, 2+ distal pulses and no calf tenderness appreciated. Certainly, her POTS could be elevated, particularly given that she is on prednisone. Patient states she has not had symptoms like this in the past with prednisone. Also considered some dehydration will give her fluids. We will also assess her thyroid function and obtain a test. Given her family history and she is on oral contraceptive, also considered a pulmonary embolism and will screen with a D-dimer. I have low suspicion for ischemic cardiac disease. CXR reviewed by radiologist: HEART: Normal size. Aorta: Not dilated. PULMONARY VASCULATURE: Normal. LUNGS: Clear. PLEURAL SPACE: No pleural effusion or pneumothorax. BONE:Unremarkable for age. IMPRESSION: No acute abnormality. Labs reviewed. No leukocytosis. Stable H&H. D-dimer within normal limits. CMP without significant abnormality. Troponin within normal limits. Given the length of time the patient's been having symptoms, I do not feel that repeat troponin is warranted at this time. Her TSH is within normal limits. Patient's not . Discussed these findings with the patient. Since being here, her heart rate has been in the mid 90s to low 100s. She does feel safe going home. At no time has the patient developed any hypotension. Return precautions were discussed. She reports that she has reached out to her cardiology team at [facility] who is hoping that she is able to get in with electrophysiology. All of her questions and concerns were addressed and she is in agreement this plan. I will hold off on any medication trials at this time as I am concerned that some of this may be associated with her prednisone I am concerned with dropping her too precipitously during this acute event. Discussed Holter monitor with the patient but is unable to be placed to the emergency department at this time, have asked that she speak with her primary care regarding Holter monitor. HPI General Date/Time Provider Initiated Documentation: 12/19/22 16:37 . Limitations to Documentation: no limitations . Information obtained by: patient and RN notes reviewed . History of Present Illness 32 year old F presents to the emergency department with the chief complaint of Palpitations, described as moderate and similar to prior episodes, Quality is described as other (Palpitations), and is localized to the chest. Patient reports no radiation. Patient started experiencing this d ay(s) and it has been intermittent. No relieving factors improve symptom(s), No exacerbating factors reported (Reports it typically comes on when at rest) . Patient notes chest pain (Reports that she had chest pain few days ago but none associated with the palpitations); denies cough, diaphoresis, fever/chills, loss of appetite, malaise, nausea/vomiting, shortness of breath (Recent asthma exacerbation, improving with prednisone) and syncope. Patient did receive the following treatments prior to arrival, none Related Data Home Medications Medication Instructions Recorded Confirmed albuterol sulfate 90 mcg/actuation 2 puff inhalation Q6H PRN 04/01/22 12/16/22 aerosol inhaler (Ventolin HFA) shortness of breath or wheezing #8.5 grams montelukast 10 mg tablet 10 mg PO DAILY 05/21/22 12/16/22 fluticasone fur. 200 mcg-umeclid 1 inh inhalation DAILY #60 ea 07/17/22 12/16/22 62.5 mcg-vilant 25 mcg inhalat.powder (Trelegy Ellipta) dupilumab 300 mg/2 mL subcutaneous 300 mg (2 mL) subcut Q2W #4 mL 10/06/22 12/16/22 syringe (LUXeXceL Groupixent) amitriptyline 10 mg tablet 10 mg PO DAILY 11/17/22 12/16/22 levonorgestrel-ethinyl estradiol 1 tab PO DAILY #84 tabs 11/17/22 12/16/22 0.1 mg-20 mcg tablet gabapentin 100 mg capsule 200 mg PO DAILY 12/10/22 12/16/22 Previous Rx's Medication Instructions Recorded albuterol sulfate 90 mcg/actuation 2 puff inhalation Q6H PRN 04/01/22 aerosol inhaler (Ventolin HFA) shortness of breath or wheezing #8.5 grams fluticasone fur. 200 mcg-umeclid 1 inh inhalation DAILY #60 ea 07/17/22 62.5 mcg-vilant 25 mcg inhalat.powder (Trelegy Ellipta) dupilumab 300 mg/2 mL subcutaneous 300 mg (2 mL) subcut Q2W #4 mL 10/06/22 syringe (DupixTimePad) levonorgestrel-ethinyl estradiol 1 tab PO DAILY #84 tabs 11/17/22 0.1 mg-20 mcg tablet Allergies Allergy/AdvReac Type Severity Reaction Status Date / Time banana Allergy Unknown Skin Rash Verified 12/16/22 18:10 house dust Allergy Unknown Unverified 12/16/22 18:10 peach Allergy Verified 12/16/22 18:10 vancomycin Allergy Swelling/Ed Verified 12/16/22 18:10 [place]ondon adhesive tape AdvReac Intermediate Verified 12/16/22 18:10 budesonide [From Symbicort] AdvReac Skin Rash Verified 12/16/22 18:10 formoterol [From Symbicort] AdvReac Skin Rash Verified 12/16/22 18:10 General Stated Complaint: Arrhythmia ROXANNE: 2 Review of Systems Constitutional Constitutional: Reports as per HPI, Denies chills, Denies fever(s), Denies headache(s), Denies lethargy and Denies poor appetite Eyes Eyes: Denies change in vision ENT Ears, Nose, Mouth, and Throat: Denies dizziness and Denies headache(s) Cardiovascular Cardiovascular: Reports as per HPI, Denies dyspnea and Denies dyspnea on exertion Respiratory Respiratory: Reports as per HPI, Denies chest congestion, Denies cough, Denies pain on inspiration, Denies pain with cough, Denies dyspnea and Denies dyspnea on exertion Gastrointestinal Gastrointestinal: Reports as per HPI, Denies abdominal pain, Denies diarrhea, Denies nausea and Denies vomiting Musculoskeletal Musculoskeletal: Reports as per HPI and Denies back pain Integumentary/Breasts Skin/Breast: Reports as per HPI and Denies rash Neurologic Neurologic: Reports as per HPI, Denies dizziness and Denies headache(s) PFSH All Active Problems (Updated 12/19/22 @ 18:26 by TRISHA Han) Palpitations (Acute) Hypertension (Chronic) Paresthesia (Acute) hands, feet, lips Neck pain (Acute) Sleep apnea (Acute) POTS (postural orthostatic tachycardia syndrome) (Acute) Tried metoprolol and it triggered asthma exacerbation Anemia (Chronic) Anxiety (Chronic) Insomnia (Acute) Migraine headache with aura (Acute) Asthma (Chronic) Medical History Contraception management IUD fell out several months pp, tried continuous cycle OCPs but had prolonged light bleeding. Will try regular OCPs. 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 Cord prolapse. 2 layer closure. LTCS Family History Mother Mental disorder depresssion anxietty bipolar Asthma Depression Father Hypertension Hyperlipidemia Sister Depression Brother No problems noted. Daughter Asthma Depression Daughter No problems noted. Daughter No problems noted. Maternal Grandfather Diabetes Stroke Paternal Grandfather Diabetes Maternal Grandmother , 70 No problems noted. 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 [employer] Pets and animals: Yes Pets and animals: dog(s) Sexually active: No Do you think of yourself as: straight/heterosexual Current gender identity: female What is your relationship status?: living with partner How often do you talk on the phone with friends or family?: once per week How often do you get together with friends or relatives?: once per week Do you belong to any clubs or organized social groups?: no Panel score (0-1 are the most socially isolated patients): 1 What type of physical activity do you participate in: none Frequency: does not exercise Erin/Lutheran: Catholic Special erin needs: No Seatbelt use: always Helmet use: Yes Helmet use: always Drive intox or ride w/intox emergency detail driver: No Do you feel safe at home: Yes Do you feel safe in your relationship?: Yes History History 3 Para 3 Hx # Term Pregnancies 1 Multiple births Hx # Pregnancies 2 Ectopic pregnancies AB induced Hx Number of Living Children 3 AB spontaneous Past Pregnancies Del. Date GA/Weeks # Preg Succ Route Wgt Sex Labor Lgth Anesth esia Location [facility] Complic 06/23/09 37 No vaginal Female [facility] 09/03/15 28 No Female [facility] cord accident 09/05/21 35 No Yes vaginal Female [facility] Dr. Raimundo prado Delivery Date: 06/23/09 Last Updated by: Peggy Steen M.D. went into labor at 32- 33 weeks, stayed at [facility] until 35wks, came home then had water broken at [facility] due to dilation of 5 cm at 37 weeks. Delivery Date: 09/03/15 Last Updated by: Peggy Steen M.D. Pt went into labor, had a cord prolapse which led to emergent c- section Delivery Date: 09/05/21 Last Updated by: Peggy Steen MD PTL&D, Lilia Exam Const General: cooperative, healthy appearing, comfortable, no acute distress and well developed Nutritional Appearance: average body habitus and well nourished Orientation: alert, awake and oriented x3 [facility] Head: normal to inspection Ears: hearing grossly normal bilaterally Mouth: moist mucous membranes Chest Chest: normal inspection of the chest, normal palpation of entire chest wall and no crepitus Resp Effort & Inspection: normal respiratory effort, able to speak in complete sentences and no respiratory distress Auscultation: clear to auscultation bilaterally, no rales, no rhonchi and no wheezes Cardio Rate: tachycardic Rhythm: regular rhythm Heart Sounds: S1 normal and S2 normal GI Inspection: normal to inspection, no edema and non-distended Palpation: soft, no hepatosplenomegaly, not firm, no guarding, not rigid and nontender Auscultation: normal bowel sounds Back/Spine/Pelvis Back: no CVA tenderness Thoracic/Lumbar Spine: thoracic and lumbar spine normal to inspection Skin General skin exam: no rashes or lesions noted Trauma: no lacerations or abrasions Neuro General: patient alert, patient awake and patient oriented x3 Cognition: normal cognition Speech: speech normal Gait: normal gait Extrem General: normal to inspection, capillary refill normal, no pedal edema, no calf tenderness and normal gait Psych Appearance: grossly normal and well kempt Mental Status: mental status grossly normal Speech and Movement: speech and movement normal Course Vital Signs Vital signs: Vital Signs Temperature 37.3 C 12/19/22 16:40 Pulse 122 H 12/19/22 16:40 Respiratory Rate 18 12/19/22 16:40 Blood Pressure 142/98 H 12/19/22 16:40 Pulse Oximetry 100 12/19/22 16:40 Temperature 37.3 C 12/19/22 16:40 Pulse 122 H 12/19/22 16:40 Respiratory Rate 18 12/19/22 16:40 Blood Pressure 142/98 H 12/19/22 16:40 Pulse Oximetry 100 12/19/22 16:40 Oxygen Delivery Method Room Air 12/19/22 16:40 Oxygen Flow Rate 0 12/19/22 16:40
[2022-12-19 17:28] LABS: Diff Comment RBC Morph Reviewed; Microcytosis 1+
[2022-12-19 17:36] LABS: ALT 31 U/L (14-59); AST 22 U/L (15-37); Alkaline Phosphatase 60 U/L (46-116); Anion Gap 9.6 mmol/L (3-11); BUN 7 mg/dL (7-18); Bilirubin, Total 0.2 mg/dL (0.2-1.0); CO2 26.4 mmol/L (21.0-32.0); Calcium 9.1 mg/dL (8.5-10.1); Chloride 104 mmol/L (98-107); Estimated GFR 76.76 (mL/min/1.73m2); Glucose 137 mg/dL (74-106); Magnesium 2.3 mg/dL (1.8-2.4); Potassium 3.5 mmol/L (3.5-5.1); Sodium 140 mmol/L (136-145); TSH (W/Ref FT4) 0.49 uIU/mL (0.36-3.74); Total Protein 8.4 g/dL (6.4-8.2); Troponin I < 50 ng/L (<or=60)
[2022-12-19] MEDS: Lactated Ringers 1,000 ML 1000 ML IV (18:05)
[2022-12-19 18:15] LABS: D-Dimer 193 ng/mlFEU (<500)
== END 2022-12-19 18:47 | disposition home or self-care (01) ==
PROVIDERS: Emergency Provider Physician Assistant; PCP Nurse Practitioner Family
DX: R00.2 Palpitations (principal); G90.A Postural orthostatic tachycardia syndrome [POTS]; I10 Essential (primary) hypertension; R00.0 Tachycardia, unspecified
CPT/HCPCS: 80053; 81025; 93005; 96360; 99283; 71046; 83735; 84443; 84484; 85025; 85379; 93010

== ENCOUNTER 2022-12-25 14:21 | Outpatient (RCR) | payer MEDICAID, SELFPAY ==
--- NOTE | 2022-12-25 14:15 | HOLTER_ITS ---
APPROVED REPORT Conclusion This is a 48-hour Holter monitor Rhythm throughout was sinus. Average heart rate was 102. Minimum was 77, maximum 156 There was a total of 10 isolated ventricular ectopic beats There was 1 PAC There was no atrial fibrillation, no SVT, no high-grade AV block, no pauses greater than 3 seconds
== END 2023-01-22 23:59 | disposition home or self-care (01) ==
LOC: CARDOPNVT 14:21
PROVIDERS: PCP Nurse Practitioner Family; Visit Provider Nurse Practitioner Family
DX: R00.2 Palpitations (principal)
CPT/HCPCS: 93225; 93226

== ENCOUNTER 2023-01-18 16:23 | Emergency (ER) | payer MEDICAID, SELFPAY ==
[2023-01-18 16:33] VITALS: BP 142/87; PULSE 93; RESP 18; O2SAT 100
--- NOTE | 2023-01-18 17:30 | DI.RAD_ITS ---
Exam(s) XR FOOT LT COMPLETE XR ANKLE LT COMPLETE EXAM: XR ANKLE LT COMPLETE and XR foot LT complete CLINICAL HISTORY: foot pain ankle pain TECHNIQUE: 2D digital imaging was performed of the left foot and ankle. Six images were obtained. AP, lateral and oblique views were obtained. COMPARISON: No priors for comparison. FINDINGS: BONES: No acute fracture is present. No bony destructive lesion is seen. JOINTS:The ankle mortise is normally aligned. There are mild degenerative changes seen at the 1st MTP joint. SOFT TISSUE: Normal. IMPRESSION: No acute fracture or dislocation. DATA REPOSITORY: RADIATION DOSE DELIVERED:
--- NOTE | 2023-01-18 17:40 | ED.GENADUL_ITS ---
Discharge Plan Disposition Patient Disposition: Home Condition: Stable Discharge Details Chief Complaint: Orthopedic Clinical Impression: Contusion of foot Primary Care Provider: Hieu Katz ED Provider: Jesse Young Home Meds and New Rx's Prescriptions: No Action amitriptyline 10 mg tablet 10 mg PO DAILY levonorgestrel-ethinyl estrad 0.1-20 mg-mcg tablet 1 tab PO DAILY Qty: 84 4RF Rx Instructions: May skip placebo pills and start the next pack right away to use in a continuous fashion. gabapentin 100 mg capsule 200 mg PO DAILY albuterol sulfate [Ventolin HFA] 90 mcg/actuation HFA aerosol inhaler 2 puff inhalation Q6H PRN (Reason: shortness of breath or wheezing) Qty: 8.5 12RF Trelegy Ellipta 200-62.5-25 mcg blister with device 1 inh INHALATION DAILY Qty: 60 12RF Dupixent Syringe 300 mg/2 mL syringe 300 mg SUBCUT Q2W Qty: 4 12RF montelukast 10 mg Tablet 10 mg PO DAILY Discharge Instructions Instructions: Foot Contusion (ED) Additional Instructions: Continue with ice elevation ibuprofen and/or acetaminophen as needed for pain and swelling. Medical Decision Making 32-year-old female presents with left foot pain for the past 2 days after stepping off of the couch, neurovascular exam of limb intact. Ambulatory no acute distress. No external signs of trauma. No malleoli or tenderness no calcaneal tenderness. Patient also has chronic rash to plantar medial aspect of right foot consistent with dry skin. Low suspicion for fracture or dislocation of foot or ankle. Likely contusion versus sprain versus strain. Screening x- rays. Patient declining analgesia anti-inflammatory. Home care instructions and return precautions to be given pending x-ray result 18: 34 resting actively no acute distress. Evidence of localized swelling without evidence of fracture or dislocation. Home care instructions and return precautions given. HPI General Date/Time Provider Initiated Documentation: 01/18/23 16:27 . HPI Narrative: 32-year-old female presents with 2 days of left foot pain stood up off the couch and had pain in the bottom of her foot up into her ankle. Also endorses chronic rash to bottom of her right foot. Related Data Home Medications Medication Instructions Recorded Confirmed albuterol sulfate 90 mcg/actuation 2 puff inhalation Q6H PRN 04/01/22 01/18/23 aerosol inhaler (Ventolin HFA) shortness of breath or wheezing #8.5 grams montelukast 10 mg tablet 10 mg PO DAILY 05/21/22 01/18/23 fluticasone fur. 200 mcg-umeclid 1 inh inhalation DAILY #60 ea 07/17/22 01/18/23 62.5 mcg-vilant 25 mcg inhalat.powder (Trelegy Ellipta) dupilumab 300 mg/2 mL subcutaneous 300 mg (2 mL) subcut Q2W #4 mL 10/06/22 01/18/23 syringe (Dupixent) amitriptyline 10 mg tablet 10 mg PO DAILY 11/17/22 01/18/23 levonorgestrel-ethinyl estradiol 1 tab PO DAILY #84 tabs 11/17/22 01/18/23 0.1 mg-20 mcg tablet gabapentin 100 mg capsule 200 mg PO DAILY 12/10/22 01/18/23 Previous Rx's Medication Instructions Recorded albuterol sulfate 90 mcg/actuation 2 puff inhalation Q6H PRN 04/01/22 aerosol inhaler (Ventolin HFA) shortness of breath or wheezing #8.5 grams fluticasone fur. 200 mcg-umeclid 1 inh inhalation DAILY #60 ea 07/17/22 62.5 mcg-vilant 25 mcg inhalat.powder (Trelegy Ellipta) dupilumab 300 mg/2 mL subcutaneous 300 mg (2 mL) subcut Q2W #4 mL 10/06/22 syringe (Dupixent) levonorgestrel-ethinyl estradiol 1 tab PO DAILY #84 tabs 11/17/22 0.1 mg-20 mcg tablet Allergies Allergy/AdvReac Type Severity Reaction Status Date / Time banana Allergy Unknown Skin Rash Verified 01/18/23 16:55 house dust Allergy Unknown Unverified 01/18/23 16:55 peach Allergy Verified 01/18/23 16:55 vancomycin Allergy Swelling/Ed Verified 01/18/23 16:55 [place] adhesive tape AdvReac Intermediate Verified 01/18/23 16:55 budesonide [From Symbicort] AdvReac Skin Rash Verified 01/18/23 16:55 formoterol [From Symbicort] AdvReac Skin Rash Verified 01/18/23 16:55 General Stated Complaint: Orthopedic ROXANNE: 4 Review of Systems Narrative: Review of Systems Constitutional: negative Eyes: negative ENT: negative Cardiovascular: negative Respiratory: negative Gastrointestinal: negative : negative Musculoskeletal: Foot pain Skin: Foot rash Neurologic: negative Psych: negative PFSH All Active Problems (Updated 01/18/23 @ 18:35 by Jesse Young MD) Contusion of foot (Acute) Palpitations (Acute) Hypertension (Chronic) Paresthesia (Acute) hands, feet, lips Neck pain (Acute) Sleep apnea (Acute) POTS (postural orthostatic tachycardia syndrome) (Acute) Tried metoprolol and it triggered asthma exacerbation Anemia (Chronic) Anxiety (Chronic) Insomnia (Acute) Migraine headache with aura (Acute) Asthma (Chronic) Medical History Contraception management IUD fell out several months pp, tried continuous cycle OCPs but had prolonged light bleeding. Will try regular OCPs. 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 Cord prolapse. 2 layer closure. LTCS Family History Mother Mental disorder depresssion anxietty bipolar Asthma Depression Father Hypertension Hyperlipidemia Sister Depression Brother No problems noted. Daughter Asthma Depression Daughter No problems noted. Daughter No problems noted. Maternal Grandfather Diabetes Stroke Paternal Grandfather Diabetes Maternal Grandmother , 70 No problems noted. 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 [employer] Pets and animals: Yes Pets and animals: dog(s) Sexually active: No Do you think of yourself as: straight/heterosexual Current gender identity: female What is your relationship status?: living with partner How often do you talk on the phone with friends or family?: once per week How often do you get together with friends or relatives?: once per week Do you belong to any clubs or organized social groups?: no Panel score (0-1 are the most socially isolated patients): 1 What type of physical activity do you participate in: none Frequency: does not exercise Erin/Yazidi: Islam Special erin needs: No Seatbelt use: always Helmet use: Yes Helmet use: always Drive intox or ride w/intox cdl truck driver: No Do you feel safe at home: Yes Do you feel safe in your relationship?: Yes History History 3 Para 3 Hx # Term Pregnancies 1 Multiple births Hx # Pregnancies 2 Ectopic pregnancies AB induced Hx Number of Living Children 3 AB spontaneous Past Pregnancies Del. Date GA/Weeks # Preg Succ Route Wgt Sex Labor Lgth Anesth esia Location [facility] 06/23/09 37 No vaginal Female [facility] 09/03/15 28 No Female [facility] cord accident 09/05/21 35 No Yes vaginal [facility] Raim[facility] prado Delivery Date: 06/23/09 Last Updated by: Peggy Steen M.D. went into labor at 32- 33 weeks, stayed at [facility] until 35wks, came home then had water broken at [facility] due to dilation of 5 cm at 37 weeks. Delivery Date: 09/03/15 Last Updated by: Peggy Steen M.D. Pt went into labor, had a cord prolapse which led to emergent c- section Delivery Date: 09/05/21 Last Updated by: Peggy Steen MD PTL&D, Lilia Exam Narrative Exam Narrative: Physical Examination General: alert, awake, cooperative, resting comfortably, no acute distress Skin: Dry skin and small area of papular rash to medial plantar aspect of foot no induration erythema warmth fluctuance vesicles purulence pustules or petechia Neuro: AAOx3, normal speech, moving all extremities Extremities: Full range of motion toes foot ankle, ambulatory without assistance, DP pulse intact, warm well-perfused extremity Course Vital Signs Vital signs: Vital Signs Pulse 93 H 01/18/23 16:33 Respiratory Rate 18 01/18/23 16:33 Blood Pressure 142/87 H 01/18/23 16:33 Pulse Oximetry 100 01/18/23 16:33 Pulse 93 H 01/18/23 16:33 Respiratory Rate 18 01/18/23 16:33 Respiratory Effort Normal 01/18/23 16:36 Blood Pressure 142/87 H 01/18/23 16:33 Blood Pressure Position Sitting 01/18/23 16:33 Pulse Oximetry 100 01/18/23 16:33 Oxygen Delivery Method Room Air 01/18/23 16:33 Oxygen Flow Rate 0 01/18/23 16:33 Pain Level 7 01/18/23 16:33
--- NOTE | 2023-01-18 18:23 | DI.VRAD_ITS ---
PROCEDURE INFORMATION: Exam: XR Left Foot Exam date and time: 01/18/2023 5:58 PM Age: 32 years old Clinical indication: Other: Pain TECHNIQUE: Imaging protocol: Radiologic exam of the left foot. Views: 3 or more views. COMPARISON: CR XR ANKLE LT COMPLETE 01/18/2023 5:56 PM FINDINGS: Bones/joints: Mild hammertoe deformities of the 2nd through the 4th toes. Bone mineralization is age-appropriate. There is no evidence of fracture. No evidence of dislocation. The joint spaces are adequately preserved; no significant degenerative narrowing and no bony erosion seen. Soft tissues: No radiopaque foreign body present. There is soft tissue swelling present. IMPRESSION: 1. No acute osseous abnormality. 2. There is soft tissue swelling present. Dictated and Authenticated by: Demar Mcgee MD. Ordering:PARADISE Molina MD
--- NOTE | 2023-01-18 18:24 | DI.VRAD_ITS ---
PROCEDURE INFORMATION: Exam: XR Left Ankle Exam date and time: 01/18/2023 5:56 PM Age: 32 years old Clinical indication: Other: Pain TECHNIQUE: Imaging protocol: Radiologic exam of the left ankle. Views: 3 or more views. COMPARISON: No relevant prior studies available. FINDINGS: Bones/joints: Bone mineralization is age-appropriate. There is no evidence of fracture. No evidence of dislocation. The joint spaces are adequately preserved; no significant degenerative narrowing and no bony erosion seen. Soft tissues: No radiopaque foreign body present. There is soft tissue swelling present. IMPRESSION: 1. No acute osseous abnormality. 2. There is soft tissue swelling present. Dictated and Authenticated by: Demar Mcgee MD. Ordering:PARADISE Molina MD
== END 2023-01-18 18:38 | disposition home or self-care (01) ==
PROVIDERS: Emergency Provider Emergency Medicine; PCP Nurse Practitioner Family
DX: M79.672 Pain in left foot (principal); S90.32XA Contusion of left foot, initial encounter; X58.XXXA Exposure to other specified factors, initial encounter; R21 Rash and other nonspecific skin eruption; I10 Essential (primary) hypertension; Z79.899 Other long term (current) drug therapy; Z91.018 Allergy to other foods; Z88.1 Allergy status to other antibiotic agents; Z91.09 Other allergy status, other than to drugs and biological substances; Z88.8 Allergy status to other drugs, medicaments and biological substances
CPT/HCPCS: 99283; 73610; 73630

== ENCOUNTER 2023-02-05 19:14 | Emergency (ER) | payer MEDICAID, SELFPAY ==
--- NOTE | 2023-02-05 19:15 | RT.EKG_ITS ---
APPROVED REPORT Exam: Resting ECG Reason for Exam: chest pain Patient Location: E HR:101 bpm ECG Measurements Heart Rate 101 AXIS AZ 122 P 41 QRSd 83 QRS 66 QT 346 T 39 QTc 450 Conclusion Sinus tachycardia...rate> 99 Sinus tach normal intervals, normal axis, no acute sttw changes, no stemi, no significant change from previous.
[2023-02-05 19:19] VITALS: BP 143/90; PULSE 104; RESP 16; TEMP 37.1; O2SAT 100
[2023-02-05 19:26] VITALS: RESP 16
[2023-02-05] MEDS: Ketorolac 10 MG TAB PO (19:47)
[2023-02-05] MEDS: Acetaminophen 500 MG TAB 1000 MG PO (19:47)
--- NOTE | 2023-02-05 19:52 | ED.GENADUL_ITS ---
Discharge Plan Disposition Patient Disposition: Home Condition: Stable Discharge Details Clinical Impression: Costochondritis Primary Care Provider: Hieu Katz ED Provider: Kennedy Jin Home Meds and New Rx's Prescriptions: Continued amitriptyline 10 mg tablet 10 mg PO DAILY levonorgestrel-ethinyl estrad 0.1-20 mg-mcg tablet 1 tab PO DAILY Qty: 84 4RF Rx Instructions: May skip placebo pills and start the next pack right away to use in a continuous fashion. gabapentin 100 mg capsule 200 mg PO DAILY albuterol sulfate [Ventolin HFA] 90 mcg/actuation HFA aerosol inhaler 2 puff inhalation Q6H PRN (Reason: shortness of breath or wheezing) Qty: 8.5 12RF Trelegy Ellipta 200-62.5-25 mcg blister with device 1 inh INHALATION DAILY Qty: 60 12RF Dupixent Syringe 300 mg/2 mL syringe 300 mg SUBCUT Q2W Qty: 4 12RF ondansetron 4 mg tablet,disintegrating 4 mg PO Q6H PRN (Reason: nausea and vomiting) Qty: 30 0RF montelukast 10 mg tablet 10 mg PO DAILY Qty: 90 4RF albuterol sulfate 1.25 mg/3 mL solution for nebulization 1.25 mg inhalation QID PRN (Reason: shortness of breath or wheezing) Qty: 90 6RF doxycycline hyclate 100 mg capsule 100 mg PO BID Rx Instructions: 01/23/23 Take for 7 days. Per [facility] ED. -hb amoxicillin 500 mg capsule 500 mg PO TID Rx Instructions: 01/23/23 Rx'd by [facility] ED. Take for 7 days. -hb Discharge Instructions Instructions: Costochondritis (ED) Additional Instructions: You were seen in the emergency department for your chest pain that is central to your ribs, you have just went through COVID as well as pneumonia. Your cardiac workup is negative, your D-dimer is negative I do not think there is any cardiac or pulmonary pathology involved I think this is musculoskeletal chest pain. Please take regular doses of Tylenol ibuprofen apply gentle heat to the area, apply an [id number] lidocaine patch to the area during the daytime as if the pain is bothering him. Please use therapeutic dosing of Tylenol (acetamenophen) & Advil (ibuprofen) in an alternating fashion as follows: Take 1000mg of Tylenol every 6 hours without missing doses- that is 4 times per day. Fdc in between the Tylenol dosings, take 400-600mg of Advil also on a 6 hour schedule, that is also 4 times per day. The daily maximum dosing of Tylenol is 4000mg, and the daily maximum dosing of Advil is 2400mg. This is safe to do for weeks. Please note that some common cold medications & prescription pain medications may contain acetamenophen and you need to read OTC drug labels and factor that in to maximum daily dosings. Please return to the emergency department for any increasing chest pain with shortness of breath, dizziness, sweating or feelings of near syncope Referrals: Hieu Katz NP [Primary Care Provider] - Discharge Data Discharge Date/Time-TO BE ENTERED AT DEPARTURE: 02/05/23 22:03 Medical Decision Making This dictation utilizes [id number] dictation software and may contain unedited grammatical errors. 32 y/o F presents to ED today with a chief complaint of pleuritic chest pain, recently treated for Covid-19 as well as a secondary pneumonia, had negative CTAs prior during workups for chest pain during acute illness. Onset and characteristics include 2 days of chest pain, sharp and central to ribs, worse with positonal changes and coughing. Patients' medical history: recent pneumonia. Family and social history: noncontributory. Pertinent exam findings / vital signs include lungs CTA, benign cardiac exam, benign abdomen, neuro intact, nontoxic vitals. Differential / pathologies of concern include Costochondritis, ACS, Pleurisy, PE. Diagnostic studies of: -CBC, CMP, D-Dimer, BNP, EKG. -CBC benign -CMP benign, mild hypokalemia will replete with normal PO intake, mild elev BUN likely subacute dehydration -Trop I neg -BNP neg -D-dimer neg -held CXR due to patients recent significant radiation exposures and likelihood of costochondritis as diagnosis -EKG wnl, no signs of ischemia Interventions of: -Tylenol & ibuprofen. ED Course/Assessment/Plan: Provided reassurance to the patient that this was noncardiac chest pain of a mild nature, went over lab studies as well as a benign EKG, discussed at home Tylenol and ibuprofen regimen with the patient as well as apply gentle heat to the area and lidocaine patches OTC as needed during the day. Stressed strict return criteria for any worsening chest pain despite treatment especially with shortness of breath, fever, dizziness, visual changes or diaphoresis. Findings not consistent with ACS, PE, Toxic illness. Disposition of Costochondritis. Patient verbalized understanding of the plan and return to ED criteria and engaged in shared decision making. Medical Records Medical records reviewed: Yes I reviewed the patient's medical records. Lab Data Lab results reviewed: Yes I reviewed the patient's lab results. Labs: Laboratory Tests Range/Units 02/05/ 20:13 WBC (4.4-10.8) 10^3/uL 7.12 RBC (3.93-5.22) 10^6/uL 4.93 Hgb (11.2-15.7) g/dL 11.4 Hct (36.0-46.0) % 36.4 MCV (80-95) fL 74 L MCH (27.0-33.0) pg 23.1 L MCHC (32.0-36.0) % 31.3 L RDW (11.7-14.6) % 14.9 H Plt Count (130-400) 10^3/uL 284 MPV (8.0-11.0) fL 10.2 Immature Gran % 0.1 Neutrophils % 56.8 Lymphocytes % 33.8 Monocytes % 5.9 Eosinophils % 2.4 Basophils % 1.0 Nucleated RBC % (0.0-0.3) % 0.0 Absolute Neutrophils (1.2-6.7) 10^3/uL 4.04 Absolute Lymphocytes (1.2-3.4) 10^3/uL 2.41 Absolute Monocytes (0.1-0.8) 10^3/uL 0.42 Absolute Eosinophils (0.0-0.7) 10^3/uL 0.17 Absolute Basophils (0.0-0.2) 10^3/uL 0.07 RBC Morphology See Below Microcytosis 1+ D-Dimer (<500) ng/mlFEU 292 Sodium (136-145) mmol/L 140 Potassium (3.5-5.1) mmol/L 3.4 L Chloride (98-107) mmol/L 104 Carbon Dioxide (21.0-32.0) mmol/L 28.1 Anion Gap (3-11) mmol/L 7.9 BUN (7-18) mg/dL 6 L Creatinine (0.55-1.02) mg/dL 0.9 Est GFR (CKD-EPI 2020) (mL/min/1.73m2) 87.11 Glucose (74-106) mg/dL 105 Calcium (8.5-10.1) mg/dL 8.6 Magnesium (1.8-2.4) mg/dL 2.2 Total Bilirubin (0.2-1.0) mg/dL 0.2 AST (15-37) U/L 18 ALT (14-59) U/L 23 Alkaline Phosphatase (46-116) U/L 51 Troponin I (<or=60) ng/L < 50 NT-Pro-B Natriuret Pep (<300) pg/mL 23 Total Protein (6.4-8.2) g/dL 7.3 Albumin (3.4-5.0) g/dL 3.4 HPI General Date/Time Provider Initiated Documentation: 02/05/23 19:31 . HPI Narrative: 32 year-old female presents to ED today by POV/ambulating with a chief complaint of chest tightness in her L ribs, worse with movement, coughing, recent treatment for secondary PNA [id number] with onset for the past 2 days. Quality described as sharp intermittent brief pains - worse with movement, no radiation to diaphoresis, dizziness, visual changes, palpitations, shortness of breath with exertion. Severity is described as 6-7/10. Palliating factors include nothing specific attempted. Provoking factors include nothing specific. Events leading up to the incident/Associated Symptoms: Patient was seen at [facility], had elevated D-dimer but states CTA was negative for PE. Patient not anticoagulated. Related Data Home Medications Medication Instructions Recorded Confirmed albuterol sulfate 90 mcg/actuation 2 puff inhalation Q6H PRN 04/01/22 01/18/23 aerosol inhaler (Ventolin HFA) shortness of breath or wheezing #8.5 grams fluticasone fur. 200 mcg-umeclid 1 inh inhalation DAILY #60 ea 07/17/22 01/18/23 62.5 mcg-vilant 25 mcg inhalat.powder (Trelegy Ellipta) dupilumab 300 mg/2 mL subcutaneous 300 mg (2 mL) subcut Q2W #4 mL 10/06/22 01/18/23 syringe (DupixSecond Sight) amitriptyline 10 mg tablet 10 mg PO DAILY 11/17/22 01/18/23 levonorgestrel-ethinyl estradiol 1 tab PO DAILY #84 tabs 11/17/22 01/18/23 0.1 mg-20 mcg tablet gabapentin 100 mg capsule 200 mg PO DAILY 12/10/22 01/18/23 albuterol sulfate 1.25 mg/3 mL 1.25 mg (3 mL) inhalation QID PRN 01/26/23 solution for nebulization shortness of breath or wheezing #90 mL montelukast 10 mg tablet 10 mg PO DAILY #90 tabs 01/26/23 ondansetron 4 mg disintegrating 4 mg PO Q6H PRN nausea and 01/26/23 tablet vomiting #30 tabs amoxicillin 500 mg capsule 500 mg PO TID 02/05/23 doxycycline hyclate 100 mg capsule 100 mg PO BID 02/05/23 Previous Rx's Medication Instructions Recorded albuterol sulfate 90 mcg/actuation 2 puff inhalation Q6H PRN 04/01/22 aerosol inhaler (Ventolin HFA) shortness of breath or wheezing #8.5 grams fluticasone fur. 200 mcg-umeclid 1 inh inhalation DAILY #60 ea 07/17/22 62.5 mcg-vilant 25 mcg inhalat.powder (Trelegy Ellipta) dupilumab 300 mg/2 mL subcutaneous 300 mg (2 mL) subcut Q2W #4 mL 10/06/22 syringe (WediaixSecond Sight) levonorgestrel-ethinyl estradiol 1 tab PO DAILY #84 tabs 11/17/22 0.1 mg-20 mcg tablet albuterol sulfate 1.25 mg/3 mL 1.25 mg (3 mL) inhalation QID PRN 01/26/23 solution for nebulization shortness of breath or wheezing #90 mL montelukast 10 mg tablet 10 mg PO DAILY #90 tabs 01/26/23 ondansetron 4 mg disintegrating 4 mg PO Q6H PRN nausea and 01/26/23 tablet vomiting #30 tabs Allergies Allergy/AdvReac Type Severity Reaction Status Date / Time banana Allergy Unknown Skin Rash Verified 02/05/23 21:21 house dust Allergy Unknown Unverified 02/05/23 21:21 peach Allergy Verified 02/05/23 21:21 vancomycin Allergy Swelling/Ed Verified 02/05/23 21:21 [place] adhesive tape AdvReac Intermediate Verified 02/05/23 21:21 budesonide [From Symbicort] AdvReac Skin Rash Verified 02/05/23 21:21 formoterol [From Symbicort] AdvReac Skin Rash Verified 02/05/23 21:21 General Stated Complaint: Chest Pain ROXANNE: 3 Review of Systems All systems reviewed & are unremarkable except as noted in HPI and below PFSH All Active Problems (Updated 02/05/23 @ 21:38 by TRISHA Martinez) Costochondritis (Acute) Contusion of foot (Acute) Hypertension (Chronic) Paresthesia (Acute) hands, feet, lips Neck pain (Acute) Sleep apnea (Acute) POTS (postural orthostatic tachycardia syndrome) (Acute) Tried metoprolol and it triggered asthma exacerbation Anemia (Chronic) Anxiety (Chronic) Insomnia (Acute) Migraine headache with aura (Acute) Asthma (Chronic) Medical History (Updated 02/05/23 @ 21:38 by TRISHA Martinez) Hx of viral pneumonia 01/23/23: Per [facility] ED. -hb Contraception management IUD fell out several months pp, tried continuous cycle OCPs but had prolonged light bleeding. Will try regular OCPs. 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 Cord prolapse. 2 layer closure. LTCS Family History Mother Mental disorder depresssion anxietty bipolar Asthma Depression Father Hypertension Hyperlipidemia Sister Depression Brother No problems noted. Daughter Asthma Depression Daughter No problems noted. Daughter No problems noted. Maternal Grandfather Diabetes Stroke Paternal Grandfather Diabetes Maternal Grandmother , 70 No problems noted. 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 [employer] Pets and animals: Yes Pets and animals: dog(s) Sexually active: No Do you think of yourself as: straight/heterosexual Current gender identity: female What is your relationship status?: living with partner How often do you talk on the phone with friends or family?: once per week How often do you get together with friends or relatives?: once per week Do you belong to any clubs or organized social groups?: no Panel score (0-1 are the most socially isolated patients): 1 What type of physical activity do you participate in: none Frequency: does not exercise Erin/Pentecostalism: Sabianist Special erin needs: No Seatbelt use: always Helmet use: Yes Helmet use: always Drive intox or ride w/intox catering driver: No Do you feel safe at home: Yes Do you feel safe in your relationship?: Yes History History 3 Para 3 Hx # Term Pregnancies 1 Multiple births Hx # Pregnancies 2 Ectopic pregnancies AB induced Hx Number of Living Children 3 AB spontaneous Past Pregnancies Del. Date GA/Weeks # Preg Succ Route Wgt Sex Labor Lgth Anesth esia Location Prov Complic 06/23/09 37 No vaginal Female [facility] 09/03/15 28 No Female [facility] cord accident 09/05/21 35 No Yes vaginal Female 14hr [facility] Dr. Raimundo prado Delivery Date: 06/23/09 Last Updated by: Peggy Steen M.D. went into labor at 32- 33 weeks, stayed at [facility] until 35wks, came home then had water broken at [facility] due to dilation of 5 cm at 37 weeks. Delivery Date: 09/03/15 Last Updated by: Peggy Steen M.D. Pt went into labor, had a cord prolapse which led to emergent c- section Delivery Date: 09/05/21 Last Updated by: Peggy Steen MD PTL&D, Lilia Exam Narrative Exam Narrative: GENERAL APPEARANCE: Well-nourished, non-toxic, awake and alert, atraumatic, no acute distress. SKIN: Warm, pink, dry, intact, without rashes/lesions/ulcerations. HEAD: Normocephalic, atraumatic, normal hair distribution for gender/age. EYES: Pupils PERRLA, EOMs intact without nystagmus, normal conjunctiva, no exudates on lids/lashes. ENT: Nares patent, no circumoral cyanosis, no facial swelling NECK: Supple, trachea midline, painless cervical ROM. LUNGS/CHEST: Lungs CTA bilaterally, non-labored respirations, normal A/P diameter, symmetrical expansion, no chest wall deformity, mild TTP without crepitus to central chest HEART (CV/PV): Regular rate and rhythm without murmur, no peripheral edema, no JVD. ABDOMEN: Soft, non-distended, no guarding. MSK: Normal ROM, no swelling/deformity to bilateral UEs or LEs, moving all extremities without weakness, no cyanosis, spine midline without tenderness, normal curvature. NEURO: Mental Status AAOx4 - alert to person, place, time, events No facial droop, no forehead involvement. Motor: No focal weakness - strength 5/5 in bilateral UEs and LEs, proximal and distal, symmetric. Sensory: sensation intact to light touch globally. Gait normal: patient ambulated without ataxia into ED room. PSYCH: euthymic, cooperative, pleasant, appropriate speech Course 02/05/23 19:15 ED EKG Stat EKG Nursing/RT Intervention .STAT 02/05/23 19:31 Acetaminophen [Tylenol] 1,000 mg PO NOW ONE Ketorolac [Toradol] 10 mg PO NOW ONE 02/05/23 19:51 Normal Saline [Saline 1000ml Bag] 1,000 ml IV BOLUS 02/05/23 20:13 Cardiac Troponin I Stat Comprehensive Metabolic Panel Stat Magnesium Stat NT-proBNP Stat D-Dimer [COAG] Stat Complete Blood Count w/Diff [HEMO] Stat Vital Signs Vital signs: Vital Signs Temperature 37.1 C 02/05/23 19:19 Pulse 104 H 02/05/23 19:19 Respiratory Rate 16 02/05/23 19:19 Blood Pressure 143/90 H 02/05/23 19:19 Pulse Oximetry 100 02/05/23 19:19 Temperature 37.1 C 02/05/23 19:19 Temperature Source Tympanic 02/05/23 19:19 Pulse 104 H 02/05/23 19:19 Respiratory Rate 16 02/05/23 19:26 Respiratory Effort Normal, Non-Labored 02/05/23 19:26 Respiratory Depth Normal 02/05/23 19:26 Respiratory Pattern Normal 02/05/23 19:26 Blood Pressure 143/90 H 02/05/23 19:19 Blood Pressure Position Supine 02/05/23 19:19 Pulse Oximetry 100 02/05/23 19:19 Oxygen Delivery Method Room Air 02/05/23 19:19 Oxygen Flow Rate 0 02/05/23 19:19 Pain Level 7 02/05/23 19:26
[2023-02-05] MEDS: Normal Saline 1,000 ML 1000 ML IV (20:06)
[2023-02-05 20:19] LABS: Abs Immature Grans 0.01 10^3/uL (0.0-0.06); Absolute Basophil Count 0.07 10^3/uL (0.0-0.2); Absolute Eosinophil Count 0.17 10^3/uL (0.0-0.7); Absolute Lymphocyte Count 2.41 10^3/uL (1.2-3.4); Absolute Monocyte Count 0.42 10^3/uL (0.1-0.8); Absolute Neutrophil Count 4.04 10^3/uL (1.2-6.7); Eosinophils % 2.4; HCT 36.4 % (36.0-46.0); HGB 11.4 g/dL (11.2-15.7); Immature Grans % 0.1; Lymphocytes % 33.8; MCH 23.1 pg (27.0-33.0); MCHC 31.3 % (32.0-36.0); MCV 74 fL (80-95); MPV 10.2 fL (8.0-11.0); Monocytes % 5.9; Neutrophils % 56.8; Platelet Count 284 10^3/uL (130-400); RBC 4.93 10^6/uL (3.93-5.22); RDW 14.9 % (11.7-14.6); RDW-SD 39.4 fL; WBC 7.12 10^3/uL (4.4-10.8)
[2023-02-05 20:38] LABS: Diff Comment RBC Morph Reviewed; Microcytosis 1+
[2023-02-05 20:41] LABS: ALT 23 U/L (14-59); AST 18 U/L (15-37); Albumin 3.4 g/dL (3.4-5.0); Alkaline Phosphatase 51 U/L (46-116); Anion Gap 7.9 mmol/L (3-11); BUN 6 mg/dL (7-18); Bilirubin, Total 0.2 mg/dL (0.2-1.0); CO2 28.1 mmol/L (21.0-32.0); CREATININE 0.9 mg/dL (0.55-1.02); Calcium 8.6 mg/dL (8.5-10.1); Chloride 104 mmol/L (98-107); Estimated GFR 87.11 (mL/min/1.73m2); Glucose 105 mg/dL (74-106); Magnesium 2.2 mg/dL (1.8-2.4); NT-proBNP 23 pg/mL (<300); Potassium 3.4 mmol/L (3.5-5.1); Sodium 140 mmol/L (136-145); Total Protein 7.3 g/dL (6.4-8.2); Troponin I < 50 ng/L (<or=60)
[2023-02-05 21:32] LABS: D-Dimer 292 ng/mlFEU (<500)
== END 2023-02-05 22:03 | disposition home or self-care (01) ==
PROVIDERS: Emergency Provider Physician Assistant; PCP Nurse Practitioner Family
DX: M94.0 Chondrocostal junction syndrome [Tietze]; Z86.16 Personal history of COVID-19; I10 Essential (primary) hypertension; J45.909 Unspecified asthma, uncomplicated; Z79.899 Other long term (current) drug therapy
CPT/HCPCS: 80053; 93005; 96360; 99284; 83735; 83880; 84484; 85025; 85379; 93010

== ENCOUNTER → 2023-02-25 19:00 | Outpatient (CLI) | payer MEDICAID, SELFPAY ==
--- NOTE | 2023-02-25 12:00 | DI.RAD_ITS ---
Exam(s) XR CHEST 2V PA LATERAL EXAM: XR CHEST 2V PA LATERALz CLINICAL HISTORY: recent pneumonia, assess resolution, J18.9 TECHNIQUE: 2D digital imaging was performed. COMPARISON: CR XR CHEST 2V PA LATERAL from 12/19/[address] ANGIO CHEST from 01/23/2023 FINDINGS: HEART: Normal size. Aorta: Not dilated. PULMONARY VASCULATURE: Normal. LUNGS: Clear. Previously noted right lower lobe infiltrate has resolved. PLEURAL SPACE: No pleural effusion or pneumothorax. BONE:Unremarkable for age. Soft tissues: Unremarkable. IMPRESSION: Resolution of previously noted right lower lobe infiltrate DATA REPOSITORY: RADIATION DOSE DELIVERED:
== END ==
PROVIDERS: PCP Nurse Practitioner Family; Visit Provider Student in an Organized Health Care Education/Training Program
DX: J18.9 Pneumonia, unspecified organism (principal)
CPT/HCPCS: 71046

== ENCOUNTER → 2023-04-01 01:34 | Outpatient (CLI) | payer MEDICAID, SELFPAY ==
--- NOTE | 2023-04-01 07:30 | DI.US_ITS ---
APPROVED REPORT EXAM: Comprehensive 2D, Doppler, and color-flow Echocardiogram Patient Location: Out-Patient Batch Roller Operator: Todd Sidhu RDCS (AE) Indications: SOB, dizziness, dyspnea Conclusion Normal chamber sizes Normal LV function,EF 60-65%. Normal RV function Anatomically normal valves. No significant regurgitation or stenosis. No intracardiac shunt No pericardial effusion. Wall motion Left Ventricle The left ventricle is normal size. Left ventricular systolic function is normal. The left ventricular ejection fraction is within the normal range. There is normal left ventricular wall thickness. There is normal LV segmental wall motion. The left ventricular diastolic function is normal. There is no v entricular septal defect visualized. LVEF is 55-60%. Right Ventricle The right ventricle is normal size. The right ventricular systolic function is normal. Atria The left atrium size is normal. The right atrium size is normal. Aortic Valve The aortic valve is normal in structure. Aortic valve is trileaflet. There is no aortic valvular sten osis. No aortic regurgitation is present. Mitral Valve Mitral valve leaflets are mildly thickened. No evidence of mitral valve stenosis. Trace mitral regurg itation. Tricuspid Valve The tricuspid valve is normal in structure. There is no tricuspid valve stenosis. Mild tricuspid regu rgitation. The RVSP is 15.6 mmHg. Pulmonic Valve The pulmonary valve is normal in structure. There is no pulmonic valvular stenosis. Mild pulmonic reg urgitation. Great Vessels The aortic root is normal in size. The ascending aorta is normal in size. Aortic arch is normal in ca liber. IVC is normal in size and collapses >50% with inspiration. Pericardium There is no pericardial effusion. 2D Dimensions IVSD d PLAX 0.65 cm F: 0.6-1.0 Ao Root d 2.63 cm F: 2.7 - 3.3 LVPW d PLAX 0.57 cm F: 0.6 - 1.0 Ao Asc Diam d 2.79 cm F: 2.3 - 3.1 LVID d PLAX 4.45 cm F: 3.8 - 5.2 LVDs 3.04 cm F: 2.2 - 3.5 LV EF Teichholz 59.8 % FS 31.62 % LV EDV (Teich) 89.9 mL LV ESV (Teich) 36.2 mL Stroke Vol Index (Teich) 29.05 M-Mode TAPSE 1.98 cm (M/F) >1.7 Auto EF LV EDV A4C 80.9 mL LV EDV A2C 89.3 mL LV EDV BP 86.1 mL LV ESV A4C 36.1 mL LV ESV A2C 40.5 mL LV ESV BP 38.9 mL LVEF(%) A4C 55.4 % LVEF(%) A2C 54.6 % LVEF(%) BP 54.8 % LV SV A4C 44.8 ml LV SV A2C 48.8 ml LV SV BP 47.1 ml LV CO A4C 4.4 L/min LV CO A2C 4.1 L/min LV CO BP 4.3 L/min HR A4C 99.17 BPM HR A2C 84.11 BPM LV EDV Index (BP) LA Volume LA Length A4C 4.8 cm LA Length A2C 4.1 cm LA Area A4C s 8.39 cm2 LA Area A2C s 11.43 cm2 LA Vol A4C A-L 12.54 mL LA Vol A2C A-L 26.90 mL LA Vol Biplane A-L 19.7 mL LA Vol/BSA A4C A-L LA Vol/BSA A2C A-L LA Vol/BSA BP A-L 10.7 mL/m2 LA Vol A4C MOD 12.3 mL LA Vol A2C MOD 25.9 mL LA Vol BP MOD 19.1 mL RA Volume RA Area A4C 4.5 cm2 RA ESV A4C (A-L) 5.1mL RA Vol/BSA A4C A-L RA Length A4C 3.4 cm RA ESV A4C (MOD) 4.9mL LV Diastology MV E' medial 0.117 (>0.07 m/s) MV E Vmax 0.84 (0.4-1.3 m/s) MV E/E' MED 7.18 (<14) MV A Vmax 0.65 (0.4-1.3 m/s) MV E' lateral 0.130 (>0.1 m/s) E/A Ratio 1.3 MV E/E' LAT 6.47 (<14) MV E' Average 0.123 m/s MV E/E'(average) 6.81 Aortic Valve AoV Vmax 1.25 m/s LVOT Vmax 0.85 m/s AoV Peak Grad 6.2 mmHg LVOT Peak Grad 2.9 mmHg AoV Area (Vmax) 2.09 cm2 LVOT VTI 0.178 m AoV VTI 0.248 m LVOT Mean Grad 1.9 mmHg AoV Mean Willian. 0.92 m/s LVOT SV 54.42 mL AoV Mean Grad 3.8 mmHg LVOT Diam s 1.95 cm AoV Area (VTI) 2.20 cm2 Velocity Ratio 0.68 Mitral Valve MV DT 153 (160-240 msec) Pulmonary Valve PV Vmax 0.79 (0.5-1.5 m/s) RVOT Vmax 0.52 m/s PV Peak Grad 2.5 mmHg RVOT Peak Gr. 1.1 mmHg PV Mean Willian 0.60 m/s RVOT VTI 0.094 m PV Mean Grad 1.6 mmHg RVOT Mean Gr. 0.5 mmHg Tricuspid Valve RA Pressure 3.00 mmHg TR Vmax 1.77 m/s TR Peak Grad 12.5 mmHg RVSP (TR) 15.6 mmHg
== END ==
PROVIDERS: PCP Nurse Practitioner Family; Visit Provider Nurse Practitioner Family
DX: R06.00 Dyspnea, unspecified (principal)
CPT/HCPCS: 93306

== ENCOUNTER → 2023-05-19 18:27 | Outpatient (CLI) | payer MEDICAID, SELFPAY ==
--- NOTE | 2023-05-19 18:30 | DI.RAD_ITS ---
Exam(s) XR CHEST 2V PA LATERAL EXAM: XR CHEST 2V PA LATERAL CLINICAL HISTORY: evaluate pathology TECHNIQUE: 2D digital imaging was performed. Two views. COMPARISON: CR XR CHEST 2V PA LATERAL from 02/25/2023 FINDINGS: HEART: Normal size. Aorta: Not dilated. PULMONARY VASCULATURE: Normal. LUNGS: Clear. PLEURAL SPACE: No pleural effusion or pneumothorax. BONE:Unremarkable for age. Soft tissues: Unremarkable. IMPRESSION: No acute abnormality. DATA REPOSITORY: RADIATION DOSE DELIVERED:
== END ==
PROVIDERS: PCP Nurse Practitioner Family; Visit Provider Nurse Practitioner Family
DX: J45.909 Unspecified asthma, uncomplicated (principal)
CPT/HCPCS: 71046

== ENCOUNTER 2023-06-01 16:53 | Emergency (ER) | payer MEDICAID, SELFPAY ==
[2023-06-01 16:57] VITALS: BP 137/84; PULSE 108; RESP 16; TEMP 36.6; O2SAT 99
--- NOTE | 2023-06-01 17:27 | ED.GENADUL_ITS ---
Discharge Plan Discharge Details Chief Complaint: FlankPain Primary Care Provider: Hieu Katz ED Provider: Debra Whyte Home Meds and New Rx's Prescriptions: No Action diltiazem HCl 120 mg capsule,extended release 12 hr 120 mg PO BID metoprolol succinate 25 mg tablet extended release 24 hr 50 mg PO BID naproxen 500 mg tablet 500 mg PO PRN prednisone 10 mg tablet 10 mg PO DIRECTED Qty: 18 0RF Rx Instructions: 30 mg po qd x 3 days, then 20 mg po qd x 3 days, then 10 mg po qd x 3 days, t hen stop gabapentin 100 mg capsule 300 mg PO DAILY levonorgestrel-ethinyl estrad 0.1-20 mg-mcg tablet 1 tab PO DAILY Qty: 84 4RF Rx Instructions: May skip placebo pills and start the next pack right away to use in a continuous fashion. eletriptan 20 mg tablet See Rx Instructions PO .COMPLEX Rx Instructions: take 1 tab at onset of headache; if no relief may repeat 1 tab after at least 2 hrs; max = 4 tabs/24 hr PO albuterol sulfate [Ventolin HFA] 90 mcg/actuation HFA aerosol inhaler 2 puff inhalation Q6H PRN (Reason: shortness of breath or wheezing) Qty: 8.5 12RF Trelegy Ellipta 200-62.5-25 mcg blister with device 1 inh INHALATION DAILY Qty: 60 12RF montelukast 10 mg tablet 10 mg PO DAILY Qty: 90 4RF albuterol sulfate 1.25 mg/3 mL solution for nebulization 1.25 mg inhalation QID PRN (Reason: shortness of breath or wheezing) Qty: 90 6RF Dupixent Syringe 300 mg/2 mL syringe 300 mg SUBCUT Q2W Qty: 4 12RF HPI General Date/Time Provider Initiated Documentation: 06/01/23 17:06 . HPI Narrative: Miya is a 33 year old female who presents to the emergency dept for evaluation of flank pain. She reports symptoms started 3 days ago with L flank pain (dull ache) that radiates to the front; this has since progressed to include R flank pain. Pain waxes and wanes, is rated between 5/10 and 8/10 at all times; does not fully resolve. She has not taken any medications for this. This is accompanied by mild discomfort with urination. Denies fever/chills nausea/vomiting, hematuria, new vaginal discharge, change in bowel/bladder function. She has a history of kidney stones, did not require stenting (says it was worse pain than this). No known history of pyelonephritis or STDs. H/o c- section x 1, no other abd surgery. She is completing a course of prednisone for asthma exacerbation. Related Data Home Medications Medication Instructions Recorded Confirmed albuterol sulfate 90 mcg/actuation 2 puff inhalation Q6H PRN 04/01/22 05/23/23 aerosol inhaler (Ventolin HFA) shortness of breath or wheezing #8.5 grams fluticasone fur. 200 mcg-umeclid 1 inh inhalation DAILY #60 ea 07/17/22 05/23/23 62.5 mcg-vilant 25 mcg inhalat.powder (Trelegy Ellipta) levonorgestrel-ethinyl estradiol 1 tab PO DAILY #84 tabs 11/17/22 05/23/23 0.1 mg-20 mcg tablet albuterol sulfate 1.25 mg/3 mL 1.25 mg (3 mL) inhalation QID PRN 01/26/23 05/23/23 solution for nebulization shortness of breath or wheezing #90 mL montelukast 10 mg tablet 10 mg PO DAILY #90 tabs 01/26/23 05/23/23 dupilumab 300 mg/2 mL subcutaneous 300 mg (2 mL) subcut Q2W #4 mL 02/19/23 05/23/23 syringe (DupixPockit) diltiazem HCl 120 mg 120 mg PO BID 03/19/23 05/23/23 capsule,extended release 12 hr naproxen 500 mg tablet 500 mg PO PRN 03/31/23 05/23/23 eletriptan 20 mg tablet See Rx Instructions PO .COMPLEX 05/19/23 05/23/23 metoprolol succinate 25 mg 50 mg PO BID 05/19/23 05/23/23 tablet,extended release 24 hr gabapentin 100 mg capsule 300 mg PO DAILY 05/23/23 05/23/23 prednisone 10 mg tablet 10 mg PO DIRECTED #18 tabs 05/23/23 05/23/23 Previous Rx's Medication Instructions Recorded albuterol sulfate 90 mcg/actuation 2 puff inhalation Q6H PRN 04/01/22 aerosol inhaler (Ventolin HFA) shortness of breath or wheezing #8.5 grams fluticasone fur. 200 mcg-umeclid 1 inh inhalation DAILY #60 ea 07/17/22 62.5 mcg-vilant 25 mcg inhalat.powder (Trelegy Ellipta) levonorgestrel-ethinyl estradiol 1 tab PO DAILY #84 tabs 11/17/22 0.1 mg-20 mcg tablet albuterol sulfate 1.25 mg/3 mL 1.25 mg (3 mL) inhalation QID PRN 01/26/23 solution for nebulization shortness of breath or wheezing #90 mL montelukast 10 mg tablet 10 mg PO DAILY #90 tabs 01/26/23 dupilumab 300 mg/2 mL subcutaneous 300 mg (2 mL) subcut Q2W #4 mL 02/19/23 syringe (MiMediaixPockit) prednisone 10 mg tablet 10 mg PO DIRECTED #18 tabs 05/23/23 Allergies Allergy/AdvReac Type Severity Reaction Status Date / Time banana Allergy Unknown Skin Rash Verified 05/23/23 12:03 house dust Allergy Unknown Itching Unverified 05/23/23 12:03 peach Allergy Swelling/Ed Verified 05/23/23 12:03 [place] vancomycin Allergy Swelling/Ed Verified 05/23/23 12:03 [place] adhesive tape AdvReac Intermediate Itching Verified 05/23/23 12:03 budesonide [From Symbicort] AdvReac Skin Rash Verified 05/23/23 12:03 formoterol [From Symbicort] AdvReac Skin Rash Verified 05/23/23 12:03 General Stated Complaint: FlankPain ROXANNE: 3 Review of Systems Narrative: see HPI Exam Const General: cooperative, healthy appearing, comfortable and no acute distress Nutritional Appearance: average body habitus Orientation: alert and oriented x3 Resp Effort & Inspection: normal respiratory effort and able to speak in complete sentences Auscultation: clear to auscultation bilaterally Cardio Rate: regular rate Rhythm: regular rhythm GI Inspection: normal to inspection Palpation: soft, not firm, not rigid and nontender Auscultation: normal bowel sounds Back/Spine/Pelvis Back: no CVA tenderness Course Vital Signs Vital signs: Vital Signs Temperature 36.6 C 06/01/23 16:57 Pulse 108 H 06/01/23 16:57 Respiratory Rate 16 06/01/23 16:57 Blood Pressure 137/84 06/01/23 16:57 Pulse Oximetry 99 06/01/23 16:57 Temperature 36.6 C 06/01/23 16:57 Temperature Source Tympanic 06/01/23 16:57 Pulse 108 H 06/01/23 16:57 Respiratory Rate 16 06/01/23 16:57 Blood Pressure 137/84 06/01/23 16:57 Pulse Oximetry 99 06/01/23 16:57 Oxygen Delivery Method Room Air 06/01/23 16:57 Oxygen Flow Rate 0 06/01/23 16:57 Pain Level 6 06/01/23 16:57 Comment Today is last day for prednisone, taking for asthma exacerbation 06/01/23 16:57 Medical Decision Making Miya is a 33 year old female who presents to the emergency dept for evaluation of flank pain. She reports symptoms started 3 days ago with L flank pain (dull ache) that radiates to the front; this has since progressed to include R flank pain. Pain waxes and wanes, is rated between 5/10 and 8/10 at all times; does not fully resolve. She has not taken any medications for this. This is accompanied by mild discomfort with urination. Denies fever/chills nausea/vomiting, hematuria, new vaginal discharge, change in bowel/bladder function. She has a history of kidney stones, did not require stenting (says it was worse pain than this). No known history of pyelonephritis or STDs. H/o c-sec tion x 1, no other abd surgery. She is completing a course of prednisone for asthma exacerbation. Physical exam reassuring. Patient is alert and oriented, no acute distress. She is sipping a drink without any difficulty. Abdomen soft, nondistended, nontender to palpation. Normal active bowel sounds. No rigidity or guarding. No CVA tenderness. Moist mucous membranes. Easy work of breathing, lung sounds clear bilaterally. Normal heart sounds. DDx includes but is not limited to: musculoskeletal pain/strain, nephrolithiasis, pyelonephritis, less likely pancreatitis I independently interpreted the following tests: CBC, CMP, lipase all reassuring. UA notable for small blood and large leuks. Epithelial contamination limited microscopy, however 5-10 WBCs and rare bacteria noted. A repeat UA notable for 20-50 WBC, concerning for UTI. While in the emergency dept Miya received tylenol for discomfort with little improvement in symptoms. CT abdomen/pelvis remarkable for moderate findings of chronic bilateral sacroiilitis. Otherwise unremarkable. Discussed findings with patient, including symptomatic mgmt of muscular back pain and treatment of UTI. Recommend f/u with PCP for management. Reviewed red flags indicating need for return to emergency care. Quality:[facility] Health Related Social Needs: No Data to Display PENDING SALE TO [facility] All Active Problems (Updated 05/19/23 @ 18:26 by Tiffanie Breen NP) Dyspnea (Acute) Hypertension (Chronic) Paresthesia (Acute) hands, feet, lips Neck pain (Acute) Sleep apnea (Acute) POTS (postural orthostatic tachycardia syndrome) (Acute) Tried metoprolol and it triggered asthma exacerbation Anemia (Chronic) Anxiety (Chronic) Insomnia (Acute) Migraine headache with aura (Acute) Asthma (Chronic) Medical History Hx of viral pneumonia 01/23/23: Per [facility] ED. -hb Contraception management IUD fell out several months pp, tried continuous cycle OCPs but had prolonged light bleeding. Will try regular OCPs. 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 Cord prolapse. 2 layer closure. LTCS Family History Mother Mental disorder depresssion anxietty bipolar Asthma Depression Father Hypertension Hyperlipidemia Sister Depression Brother No problems noted. Daughter Asthma Depression Daughter No problems noted. Daughter No problems noted. Maternal Grandfather Diabetes Stroke Paternal Grandfather Diabetes Maternal Grandmother , 70 No problems noted. 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 [employer] Jessika richards Pets and animals: Yes Pets and animals: dog(s) Sexually active: No Do you think of yourself as: straight/heterosexual Current gender identity: female What is your relationship status?: living with partner How often do you talk on the phone with friends or family?: once per week How often do you get together with friends or relatives?: once per week Do you belong to any clubs or organized social groups?: no Panel score (0-1 are the most socially isolated patients): 1 What type of physical activity do you participate in: none Frequency: does not exercise Erin/Episcopal: Jainism Special erin needs: No Seatbelt use: always Helmet use: Yes Helmet use: always Drive intox or ride w/intox contract driver: No Do you feel safe at home: Yes Do you feel safe in your relationship?: Yes History History 3 Para 3 Hx # Term Pregnancies 1 Multiple births Hx # Pregnancies 2 Ectopic pregnancies AB induced Hx Number of Living Children 3 AB spontaneous Past Pregnancies Del. Date GA/Weeks # Preg Succ Route Wgt Sex Labor Lgth Anesth esia Location Prov Complic 06/23/09 37 No vaginal Female [facility] 09/03/15 28 No Female [facility] cord accident 09/05/21 35 No Yes vaginal Female [facility] Dr. Raimundo prado Delivery Date: 06/23/09 Last Updated by: Peggy Steen M.D. went into labor at 32- 33 weeks, stayed at [facility] until 35wks, came home then had water broken at [facility] due to dilation of 5 cm at 37 weeks. Delivery Date: 09/03/15 Last Updated by: Peggy Baclawski, M.D. Pt went into labor, had a cord prolapse which led to emergent c- section Delivery Date: 09/05/21 Last Updated by: Peggy Steen MD PTL&D, Lilia
[2023-06-01 17:54] LABS: HGB 12.2 g/dL (11.2-15.7); MCH 23.3 pg (27.0-33.0); MCHC 31.3 % (32.0-36.0); MPV 9.5 fL (8.0-11.0); Platelet Count 336 10^3/uL (130-400); RBC 5.24 10^6/uL (3.93-5.22); RDW-SD 43.7 fL; WBC 9.03 10^3/uL (4.4-10.8)
[2023-06-01 17:56] LABS: Bilirubin Negative (Negative); Blood Small (Negative); Clarity Clear (Clear); Glucose Negative (Negative); Ketones Negative (Negative); Leukocyte Esterase Large (Negative); Nitrite Negative (Negative); Urobilinogen 0.2 mg/dL (Up to 0.2)
[2023-06-01] MEDS: Acetaminophen 500 MG TAB 1000 MG PO (17:57)
[2023-06-01 18:05] LABS: Lipase 38 U/L (16-77)
[2023-06-01 18:09] LABS: MCV 74 fL (80-95); RDW 16.3 % (11.7-14.6)
[2023-06-01 18:10] LABS: ALT 61 U/L (14-59); AST 38 U/L (15-37); Albumin 3.5 g/dL (3.4-5.0); Alkaline Phosphatase 53 U/L (46-116); BUN 10 mg/dL (7-18); Bilirubin, Total 0.3 mg/dL (0.2-1.0); Calcium 8.6 mg/dL (8.5-10.1); Chloride 103 mmol/L (98-107); Estimated GFR 76.29 (mL/min/1.73m2); Glucose 99 mg/dL (74-106); Potassium 3.5 mmol/L (3.5-5.1); Sodium 139 mmol/L (136-145); Total Protein 7.3 g/dL (6.4-8.2)
[2023-06-01 18:25] LABS: Epithelial Cells Many HPF (Negative); Other Cells Rare Transitional (Negative); RBC 0-2 HPF (0-2)
[2023-06-01 18:26] LABS: Bacteria Rare HPF (Negative); C & S Indicated? No/Sq. Contamination; Casts Negative LPF (Negative); Crystals Negative HPF (Negative); Mucus Negative (Negative)
--- NOTE | 2023-06-01 18:55 | DI.CT_ITS ---
Exam(s) CT ABDOMEN PELVIS WO EXAM: CT ABDOMEN PELVIS WO CLINICAL HISTORY: flank pain, bilateral h/o kidney stones. TECHNIQUE: Imaging Protocol: Axial computed tomography images with coronal and sagittal reformatted images were created and reviewed. Oral: / no COMPARISON: CT CT ABDOMEN PELVIS W from 01/07/2019 FINDINGS: Lung Bases: No acute findings. Liver: Mild hepatic steatosis. Mildly enlarged. No suspicious mass. Gallbladder and biliary tract: No radiodense calculus or biliary dilation. Pancreas: Normal density, no abnormal calcifications or inflammatory process. Spleen: Normal. Kidneys: Normal size, contour and axis. No radiodense stones or obstructive uropathy. No suspicious m asses seen. Adrenal glands: No masses seen. Lymph nodes: Within normal limits. Vasculature: Abdominal aorta non-dilated. Soft tissues: Unremarkable. Bladder: No wall thickening. No mass or calculi. Bowel: No obstruction or bowel wall thickening. Appendix normal. Normal quantity of stool. Peritoneal cavity: No ascites, collection or mesenteric inflammatory response. Reproductive organs: Unremarkable. Bones: Mild sclerosis again noted at the sacroiliac joints. Bony erosions. IMPRESSION: No acute abnormality in the abdomen or pelvis. RADIATION DOSE DELIVERED: Total DLP DATA REPOSITORY: All CT scans at this facility are submitted to the National Radiology Data Registry (NRDR) Dose Index Registry (DIR) with the [employer] (ACR). RADIATION OPTIMIZATION: All CT scans at this facility use at least one of these dose optimization te chniques: automated exposure control; mA and/or kV adjustment per patient size (includes targeted exa ms where dose is matched to clinical indication); or iterative reconstruction.
[2023-06-01] MEDS: Lidocaine 5% Patch 1 PATCH TP (19:47)
[2023-06-01 20:09] LABS: Bilirubin Negative (Negative); Blood Trace-intact (Negative); Clarity Clear (Clear); Glucose Negative (Negative); Ketones Negative (Negative); Leukocyte Esterase Large (Negative); Nitrite Negative (Negative); Urobilinogen 0.2 mg/dL (Up to 0.2)
--- NOTE | 2023-06-01 20:13 | DI.VRAD_ITS ---
PROCEDURE INFORMATION: Exam: CT Abdomen And Pelvis Without Contrast Exam date and time: 06/01/2023 6:53 PM Age: 33 years old Clinical indication: Other: Bilat flank pain; Prior surgery; Surgery date: 6+ months; Surgery type: TECHNIQUE: Imaging protocol: Computed tomography of the abdomen and pelvis without contrast. Radiation optimization: All CT scans at this facility use at least one of these dose optimization techniques: automated exposure control; mA and/or kV adjustment per patient size (includes targeted exams where dose is matched to clinical indication); or iterative reconstruction. COMPARISON: CT ABDOMEN PELVIS W 01/07/2019 2:06 PM FINDINGS: Liver: Normal. No mass. Gallbladder and bile ducts: Normal. No calcified stones. No ductal dilation. Pancreas: Normal. No ductal dilation. Spleen: Normal. No splenomegaly. Adrenal glands: Normal. No mass. Kidneys and ureters: Normal. No hydronephrosis. Stomach and bowel: Unremarkable. No obstruction. No mucosal thickening. Appendix: The appendix is visualized and appears normal. Intraperitoneal space: Unremarkable. No free air. No significant fluid collection. Vasculature: Unremarkable. No abdominal aortic aneurysm. Lymph nodes: Unremarkable. No enlarged lymph nodes. Urinary bladder: Unremarkable as visualized. Reproductive: Unremarkable as visualized. Bones/joints: Moderate degenerative changes in the bilateral sacroiliac joints. No acute fracture. Soft tissues: Unremarkable. IMPRESSION: Moderate findings of chronic bilateral sacroiliitis. No acute abnormality. Dictated and Authenticated by: Jose Real MD. Ordering:YELENA Richardson MD
[2023-06-01 20:18] LABS: Bacteria Rare HPF (Negative); C & S Indicated? No/Sq. Contamination; Casts Negative LPF (Negative); Crystals Negative HPF (Negative); Epithelial Cells Many HPF (Negative); Mucus Negative (Negative); RBC 0-2 HPF (0-2); WBC 20-50 HPF (0-5)
[2023-06-01] MEDS: Cephalexin 500 MG CAP PO (20:47)
== END 2023-06-01 20:46 | disposition home or self-care (01) ==
PROVIDERS: Emergency Provider Nurse Practitioner Family; PCP Nurse Practitioner Family
DX: R10.9 Unspecified abdominal pain (principal); R19.7 Diarrhea, unspecified; I10 Essential (primary) hypertension
CPT/HCPCS: 80053; 81025; 83690; 85027; 99284; 74176; 81003; 81015

== ENCOUNTER 2023-07-14 18:15 | Emergency (ER) | payer MEDICAID, SELFPAY ==
--- NOTE | 2023-07-14 18:15 | DI.CT_ITS ---
Exam(s) CT CHEST PE ABD PELVIS W EXAM: CT CHEST PE ABD PELVIS W CLINICAL HISTORY: chest pain, lower abdomen pain, tachycardia. TECHNIQUE: Imaging Protocol: Axial CT angiography was performed with multi-slice acquisition and m ulti-planar and/or 3D reconstructions. CONTRAST MATERIAL: Intravenous: Omnipaque 350 Contrast volume:100 ml Oral: None COMPARISON: CT CT ABDOMEN PELVIS WO from 06/01/2023 FINDINGS: CHEST: PULMONARY ARTERIES: There are no intra-arterial filling defects to suggest the presence of acute pulm onary emboli. LUNGS: There is no evidence of pulmonary infarction.No infiltrates nor pleural effusions no ominous p ulmonary nodules. MEDIASTINUM: There is no hilar nor mediastinal adenopathy. CARDIAC: Heart size is normal. There is no pericardial effusion. There is no significant shift of t he interventricular septum.Caliber of the thoracic aorta is within normal limits. No evidence of aor tic dissection OSSEOUS: No significant osseous lesions.. ABDOMEN: There is no ascites. LIVER: There are no focal hepatic lesions nor dilatation of intrahepatic ducts. GALLBLADDER/BILIARY: No obvious gallbladder pathology. CBD is not dilated. PANCREAS: No evidence of pancreatic mass nor dilatation of the pancreatic duct. SPLEEN: Spleen is not enlarged. There are no intrasplenic lesions. Splenic and portal veins are barr nt. ADRENALS: There are no significant adrenal masses. KIDNEYS:No cysts evident. No calculi nor hydronephrosis. No solid renal masses. ABDOMINAL AORTA: Abdominal aorta is not enlarged. LYMPH NODES: There is no retroperitoneal or para-aortic adenopathy. ABDOMINAL WALL/GI: No evidence of significant anterior abdominal wall hernia. No bowel obstruction. PELVIS: LYMPH NODES: There is no intrapelvic nor inguinal adenopathy. GI: No evidence of appendicitis.There is an area of fatty inflammation adjacent to the sigmoid which has the appearance of probable epiploic appendagitis, more so than acute diverticulitis.. URINARY BLADDER: Collapsed. REPRODUCTIVE: Uterus size upper normal. Small cysts are seen in the ovaries. Small amount of fluid in the left adnexa. OSSEOUS: No significant osseous lesions. No fractures. Increased density on the iliac side of both sacroiliac joints may indicate presence of sacroiliitis. There is no ankylosis of the SI joints evident. IMPRESSION: 1. No evidence of acute pulmonary emboli nor pulmonary infarction. 2. No evidence of aortic dissection nor pericardial effusion. 3. Findings of probable epiploic appendagitis in the sigmoid. This has more the appearance of epiplo ic appendagitis than diverticulitis. 4. There is small amount of free fluid in the left adnexal region adjacent to the left ovary. There is a small cyst in left ovary. This fluid may be female physiologic but cannot exclude that it may a lso be related to this sigmoid findings. 5. Findings at the SI joints may indicate sacroiliitis. There is no ankylosis of the SI joints. RADIATION DOSE DELIVERED: 1,471.33mGy.cm Total DLP DATA REPOSITORY: All CT scans at this facility are submitted to the National Radiology Data Registry (NRDR) Dose Index Registry (DIR) with the [employer] (ACR). RADIATION OPTIMIZATION: All CT scans at this facility use at least one of these dose optimization te chniques: automated exposure control; mA and/or kV adjustment per patient size (includes targeted exa ms where dose is matched to clinical indication); or iterative reconstruction.
--- NOTE | 2023-07-14 18:15 | RT.EKG_ITS ---
APPROVED REPORT Exam: Resting ECG Reason for Exam: chest pain Patient Location: E HR:105 bpm ECG Measurements Heart Rate 105 AXIS [place] 122 P 59 QRSd 80 QRS 73 QT 347 T 21 QTc 459 Conclusion Sinus tachycardia...rate> 99
[2023-07-14 18:18] VITALS: BP 141/89; PULSE 106; RESP 15; TEMP 36.7; O2SAT 99
[2023-07-14 18:23] VITALS: RESP 15
--- NOTE | 2023-07-14 18:24 | ED.GENADUL_ITS ---
Discharge Plan Disposition Patient Disposition: Home Condition: Stable Discharge Details Clinical Impression: Abdominal pain, Chest pain Primary Care Provider: Hieu Katz ED Provider: Anjum Simon Home Meds and New Rx's Prescriptions: Continued diltiazem HCl 120 mg capsule,extended release 12 hr 120 mg PO BID metoprolol succinate 25 mg tablet extended release 24 hr 50 mg PO BID naproxen 500 mg tablet 500 mg PO PRN gabapentin 100 mg capsule 300 mg PO DAILY levonorgestrel-ethinyl estrad 0.1-20 mg-mcg tablet 1 tab PO DAILY Qty: 84 4RF Hold Instructions: Pt Stopped/Never Started Rx Instructions: May skip placebo pills and start the next pack right away to use in a continuous fashion. eletriptan 20 mg tablet See Rx Instructions PO .COMPLEX Rx Instructions: take 1 tab at onset of headache; if no relief may repeat 1 tab after at least 2 hrs; max = 4 tabs/24 hr PO albuterol sulfate [Ventolin HFA] 90 mcg/actuation HFA aerosol inhaler 2 puff inhalation Q6H PRN (Reason: shortness of breath or wheezing) Qty: 8.5 12RF montelukast 10 mg tablet 10 mg PO DAILY Qty: 90 4RF albuterol sulfate 1.25 mg/3 mL solution for nebulization 1.25 mg inhalation QID PRN (Reason: shortness of breath or wheezing) Qty: 90 6RF Dupixent Syringe 300 mg/2 mL syringe 300 mg SUBCUT Q2W Qty: 4 12RF Trelegy Ellipta 200-62.5-25 mcg blister with device See Rx Instructions .ROUTE .COMPLEX Qty: 60 12RF Dose Instruction: INHALE BY MOUTH 1 PUFF DAILY Rx Instructions: INHALE BY MOUTH 1 PUFF DAILY Discharge Instructions Additional Instructions: Your CAT scan showed you have findings of epiploic appendagitis which is a self- limiting inflammation of the outside of the bowel. It is not life-threatening and is nothing to be concerned about. You can take 600 mg of ibuprofen and 1000 mg of Tylenol every 6 hours as needed Follow-up with your primary care provider within 1 week especially if symptoms or not improving Feel more ill, have new symptoms such as high fevers or difficulty breathing return to the emergency department for reevaluation HPI General Mode of arrival: ambulatory . Date/Time Provider Initiated Documentation: 07/14/23 18:16 . Limitations to Documentation: no limitations . Information obtained by: patient . History of Present Illness 33 year old F presents to the emergency department with the chief complaint of Abdomen and chest pain, described as moderate, Quality is described as aching, and is localized to the chest and abdomen. Patient started experiencing this day(s) (2) and it has been constant. No relieving factors improve symptom(s), No exacerbating factors reported . Patient notes no other symptoms.; denies fever/chills, nausea/vomiting and shortness of breath. Patient did receive the following treatments prior to arrival, none Related Data Home Medications Medication Instructions Recorded Confirmed albuterol sulfate 90 mcg/actuation 2 puff inhalation Q6H PRN 04/01/22 07/14/23 aerosol inhaler (Ventolin HFA) shortness of breath or wheezing #8.5 grams levonorgestrel-ethinyl estradiol 1 tab PO DAILY #84 tabs 11/17/22 07/14/23 0.1 mg-20 mcg tablet albuterol sulfate 1.25 mg/3 mL 1.25 mg (3 mL) inhalation QID PRN 01/26/23 07/14/23 solution for nebulization shortness of breath or wheezing #90 mL montelukast 10 mg tablet 10 mg PO DAILY #90 tabs 01/26/23 07/14/23 dupilumab 300 mg/2 mL subcutaneous 300 mg (2 mL) subcut Q2W #4 mL 02/19/23 07/14/23 syringe (DupixSemantra) diltiazem HCl 120 mg 120 mg PO BID 03/19/23 07/14/23 capsule,extended release 12 hr naproxen 500 mg tablet 500 mg PO PRN 03/31/23 07/14/23 eletriptan 20 mg tablet See Rx Instructions PO .COMPLEX 05/19/23 07/14/23 metoprolol succinate 25 mg 50 mg PO BID 05/19/23 07/14/23 tablet,extended release 24 hr gabapentin 100 mg capsule 300 mg PO DAILY 05/23/23 07/14/23 fluticasone fur. 200 mcg-umeclid See Rx Instructions .Route 06/22/23 07/14/23 62.5 mcg-vilant 25 mcg .COMPLEX #60 blisters inhalat.powder (Trelegy Ellipta) Previous Rx's Medication Instructions Recorded albuterol sulfate 90 mcg/actuation 2 puff inhalation Q6H PRN 04/01/22 aerosol inhaler (Ventolin HFA) shortness of breath or wheezing #8.5 grams levonorgestrel-ethinyl estradiol 1 tab PO DAILY #84 tabs 11/17/22 0.1 mg-20 mcg tablet albuterol sulfate 1.25 mg/3 mL 1.25 mg (3 mL) inhalation QID PRN 01/26/23 solution for nebulization shortness of breath or wheezing #90 mL montelukast 10 mg tablet 10 mg PO DAILY #90 tabs 01/26/23 dupilumab 300 mg/2 mL subcutaneous 300 mg (2 mL) subcut Q2W #4 mL 02/19/23 syringe (PayParrot) fluticasone fur. 200 mcg-umeclid See Rx Instructions .Route 06/22/23 62.5 mcg-vilant 25 mcg .COMPLEX #60 blisters inhalat.powder (Trelegy Ellipta) Allergies Allergy/AdvReac Type Severity Reaction Status Date / Time banana Allergy Unknown Skin Rash Verified 07/14/23 18:24 house dust Allergy Unknown Itching Unverified 07/14/23 18:24 peach Allergy Swelling/Ed Verified 07/14/23 18:24 [place] vancomycin Allergy Swelling/Ed Verified 07/14/23 18:24 [place] adhesive tape AdvReac Intermediate Itching Verified 07/14/23 18:24 budesonide [From Symbicort] AdvReac Skin Rash Verified 07/14/23 18:24 formoterol [From Symbicort] AdvReac Skin Rash Verified 07/14/23 18:24 General Stated Complaint: Chest Pain ROXANNE: 3 Review of Systems All systems reviewed & are unremarkable except as noted in HPI and below Constitutional Constitutional: Denies chills, Denies fever(s) and Denies weakness Eyes Eyes: Denies loss of vision Cardiovascular Cardiovascular: Reports chest pain and Denies dyspnea Respiratory Respiratory: Denies cough and Denies dyspnea Gastrointestinal Gastrointestinal: Reports abdominal pain and Denies vomiting Musculoskeletal Musculoskeletal: Denies joint swelling Neurologic Neurologic: Denies loss of vision and Denies weakness Exam Const General: no acute distress Orientation: alert HENMT Head: normal to inspection Ears: external ears normal General nose exam: external nose normal Mouth: moist mucous membranes Eyes General: appearance normal, both eyes and all related structures Neck Neck: normal visual inspection Resp Effort & Inspection: normal respiratory effort and able to speak in complete sentences Auscultation: clear to auscultation bilaterally Cardio Jugular venous pressure: no JVD Rate: regular rate Heart Sounds: no murmurs GI Palpation: soft and tender Skin General skin exam: no rashes or lesions noted Neuro General: patient alert and patient oriented x3 Extrem General: normal to inspection Psych Mental Status: mental status grossly normal Course Vital Signs Vital signs: Vital Signs Temperature 36.7 C 07/14/23 18:18 Pulse 106 H 07/14/23 18:18 Respiratory Rate 15 07/14/23 18:18 Blood Pressure 141/89 H 07/14/23 18:18 Pulse Oximetry 99 07/14/23 18:18 Temperature 36.7 C 07/14/23 18:18 Temperature Source Tympanic 07/14/23 18:18 Pulse 106 H 07/14/23 18:18 Respiratory Rate 15 07/14/23 18:18 Blood Pressure 141/89 H 07/14/23 18:18 Blood Pressure Position Sitting 07/14/23 18:18 Pulse Oximetry 99 07/14/23 18:18 Oxygen Delivery Method Room Air 07/14/23 18:18 Oxygen Flow Rate 0 07/14/23 18:18 Medical Decision Making 33-year-old female with a history of hypertension, POTS, kidney stones, migraines, asthma, who comes in with 2 to 3 days of lower abdominal pain and then around 3 PM while sitting at a computer at work started having anterior chest pain. Denies any difficulty breathing, fevers, cough, vomiting, vaginal bleeding or discharge. She cannot think of anything that makes it better or worse. She is alert and oriented x 4 on arrival with a normal gait, no distress. Has clear lungs, no JVD, no leg swelling or calf tenderness. She has tenderness in the left lower quadrant and right lower quadrant with no guarding or rebound. Unclear etiology of her symptoms will proceed with CBC, CMP, troponin, lipase, and obtain an CTA of the chest to evaluate for PE given she is tachycardic and CT abdomen pelvis to evaluate for diverticulitis versus appendicitis. Is unremarkable, CTA shows no PE or concerning findings does have findings of epiploic appendagitis in the abdomen. Patient is resting in bed in no distress and feels significantly better has minimal left lower quadrant tenderness without guarding. She has had symptoms for over 3 hours do not feel delta troponin indicated, she is stable for discharge advised to follow-up with PCP and return precautions given Differential Diagnosis Differential Diagnosis: Anxiety, PE, diverticulitis, appendicitis. Medical Records Medical records reviewed: Yes I reviewed the patient's medical records. Imaging Data Radiologic Study: Attestation: I personally reviewed and interpreted this imaging study as follows: Imaging: CT Scan Lab Data Lab results reviewed: Yes I reviewed the patient's lab results. ECG Data Attestation: I personally reviewed and interpreted this ECG (s) as follows: Prior ECG tracings: available for review Interpretation: Sinus tachycardia, rate 105, MS 122, no STEMI Quality:SDOH Health Related Social Needs: No Data to Display [facility] All Active Problems (Updated 07/14/23 @ 20:12 by Anjum Simon MD) Chest pain (Acute) Abdominal pain (Acute) Dyspnea (Acute) Hypertension (Chronic) Paresthesia (Acute) hands, feet, lips Neck pain (Acute) Sleep apnea (Acute) POTS (postural orthostatic tachycardia syndrome) (Acute) Tried metoprolol and it triggered asthma exacerbation Anemia (Chronic) Anxiety (Chronic) Insomnia (Acute) Migraine headache with aura (Acute) Asthma (Chronic) Medical History (Updated 07/14/23 @ 20:12 by Anjum Simon MD) Hx of viral pneumonia 01/23/23: Per [facility] ED. -hb Contraception management IUD fell out several months pp, tried continuous cycle OCPs but had prolonged light bleeding. Currently cycling every 3mo. 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 Cord prolapse. 2 layer closure. LTCS Family History Mother Mental disorder depresssion anxietty bipolar Asthma Depression Father Hypertension Hyperlipidemia Sister Depression Brother No problems noted. Daughter Asthma Depression Daughter No problems noted. Daughter No problems noted. Maternal Grandfather Diabetes Stroke Paternal Grandfather Diabetes Maternal Grandmother , 70 No problems noted. 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 [employer] Pets and animals: Yes Pets and animals: dog(s) Sexually active: No Do you think of yourself as: straight/heterosexual Current gender identity: female What is your relationship status?: living with partner How often do you talk on the phone with friends or family?: once per week How often do you get together with friends or relatives?: once per week Do you belong to any clubs or organized social groups?: no Panel score (0-1 are the most socially isolated patients): 1 What type of physical activity do you participate in: none Frequency: does not exercise Erin/Episcopalian: Scientologist Special erin needs: No Seatbelt use: always Helmet use: Yes Helmet use: always Drive intox or ride w/intox trencher driver: No Do you feel safe at home: Yes Do you feel safe in your relationship?: Yes History History 3 Para 3 Hx # Term Pregnancies 1 Multiple births Hx # Pregnancies 2 Ectopic pregnancies AB induced Hx Number of Living Children 3 AB spontaneous Past Pregnancies Del. Date GA/Weeks # Preg Succ Route Wgt Sex Labor Lgth Anesth esia Location Prov Complic 06/23/09 37 No vaginal Female [facility] 09/03/15 28 No Female [facility] cord accident 09/05/21 35 No Yes vaginal Female 14hr [facility] Dr[facility] Raimundo prado Delivery Date: 06/23/09 Last Updated by: Peggy Steen M.D. went into labor at 32- 33 weeks, stayed at [facility] until 35wks, came home then had water broken at [facility] due to dilation of 5 cm at 37 weeks. Delivery Date: 09/03/15 Last Updated by: Peggy Steen M.D. Pt went into labor, had a cord prolapse which led to emergent c- section Delivery Date: 09/05/21 Last Updated by: Peggy Steen MD PTL&D, [facility]
[2023-07-14 18:36] LABS: Abs Immature Grans 0.02 10^3/uL (0.0-0.06); Absolute Basophil Count 0.05 10^3/uL (0.0-0.2); Absolute Eosinophil Count 0.13 10^3/uL (0.0-0.7); Absolute Lymphocyte Count 2.59 10^3/uL (1.2-3.4); Absolute Monocyte Count 0.37 10^3/uL (0.1-0.8); Absolute Neutrophil Count 3.53 10^3/uL (1.2-6.7); Basophils % 0.7 %; Eosinophils % 1.9 %; HCT 43.7 % (36.0-46.0); HGB 13.7 g/dL (11.2-15.7); Immature Grans % 0.3 %; Lymphocytes % 38.7 %; MCH 23.5 pg (27.0-33.0); MCHC 31.4 % (32.0-36.0); MCV 75 fL (80-95); MPV 10.2 fL (8.0-11.0); Monocytes % 5.5 %; Neutrophils % 52.9 %; Platelet Count 287 10^3/uL (130-400); RBC 5.84 10^6/uL (3.93-5.22); RDW 15.5 % (11.7-14.6); RDW-SD 41.2 fL; WBC 6.69 10^3/uL (4.4-10.8)
[2023-07-14] MEDS: Omnipaque 350 MG/ML 100 ML BTL IJ (18:41)
[2023-07-14] MEDS: Normal Saline - Diluent 50 ML VIAL IJ (18:42)
[2023-07-14 18:50] LABS: PTT Activated 26.8 sec (23.6-32.8); Prothrombin Time 10.4 sec (9.1-11.1)
[2023-07-14 18:52] LABS: Diff Comment RBC Morph Reviewed; Microcytosis 1+
[2023-07-14 18:54] LABS: ALT 86 U/L (14-59); AST 52 U/L (15-37); Albumin 4.2 g/dL (3.4-5.0); Alkaline Phosphatase 83 U/L (46-116); Anion Gap 8.5 mmol/L (3-11); BUN 6 mg/dL (7-18); Bilirubin, Total 0.4 mg/dL (0.2-1.0); CO2 28.5 mmol/L (21.0-32.0); Calcium 9.1 mg/dL (8.5-10.1); Chloride 101 mmol/L (98-107); Estimated GFR 76.29 (mL/min/1.73m2); Glucose 96 mg/dL (74-106); Lipase 31 U/L (16-77); Magnesium 2.1 mg/dL (1.8-2.4); Potassium 3.4 mmol/L (3.5-5.1); Sodium 138 mmol/L (136-145); Total Protein 8.4 g/dL (6.4-8.2)
[2023-07-14 18:57] LABS: Troponin I < 50 ng/L (< or =60)
[2023-07-14 18:59] LABS: HCG Qual (Serum) Negative
[2023-07-14] MEDS: Ketorolac 15 MG/ML VIAL IVP (19:01)
[2023-07-14] MEDS: Normal Saline 1,000 ML 1000 ML IV (19:02)
[2023-07-14 19:06] VITALS: BP 132/77; PULSE 102; RESP 18; O2SAT 100
--- NOTE | 2023-07-14 19:52 | DI.VRAD_ITS ---
PROCEDURE INFORMATION: Exam: CTA Chest With Contrast CTA Abdomen With Contrast Exam date and time: 07/14/2023 6:44 PM Age: 33 years old Clinical indication: Other: Chest pain, lower abdomen pain, tachycardia TECHNIQUE: Imaging protocol: Computed tomographic angiography of the chest with contrast. Exam focused on the arteries. Computed tomographic angiography of the abdomen with contrast. Exam focused on the arteries. 3D rendering (Not supervised by radiologist): MIP and/or 3D reconstructed images were created by the technologist. Contrast material: OMNIPAQUE; Contrast volume: 90 ml; Contrast route: INTRAVENOUS (IV); COMPARISON: CT ANGIO CHEST 01/23/2023 4:35 PM FINDINGS: VASCULATURE: Pulmonary arteries: Normal. No pulmonary emboli. Aorta: No aortic aneurysm. No aortic dissection. Celiac trunk and mesenteric arteries: No occlusion or significant stenosis. Renal arteries: No occlusion or significant stenosis. CHEST: Lungs: Unremarkable. No consolidation. No masses. Pleural spaces: Unremarkable. No pneumothorax. No pleural effusion. Heart: Unremarkable. No cardiomegaly. No pericardial effusion. ABDOMEN AND PELVIS: Liver: No mass. Gallbladder and bile ducts: Unremarkable. No calcified stones. No ductal dilation. Pancreas: Unremarkable. No mass. No ductal dilation. Spleen: Unremarkable. No splenomegaly. Adrenal glands: Unremarkable. No mass. Kidneys and ureters: Unremarkable. No solid mass. No hydronephrosis. Stomach and bowel: Small focus of fatty inflammation adjacent to the proximal sigmoid colon compatible with epiploic appendagitis (series 4, image 77). No bowel wall thickening or evidence of bowel obstruction. Appendix: The appendix is visualized and appears normal. Intraperitoneal space: Unremarkable. No free air. No significant fluid collection. Lymph nodes: Unremarkable. No enlarged lymph nodes. Bones/joints: Unremarkable. No acute fracture. Soft tissues: Unremarkable. IMPRESSION: Findings of epiploic appendagitis of the proximal sigmoid colon. Otherwise unremarkable study. Dictated and Authenticated by: Jose Real MD. Ordering:EVELINE Valero MD
[2023-07-14 20:04] VITALS: BP 142/94; PULSE 96; RESP 14; O2SAT 100
[2023-07-14 20:26] VITALS: BP 125/86; PULSE 96; RESP 15; TEMP 36.7; O2SAT 100
== END 2023-07-14 20:26 | disposition home or self-care (01) ==
PROVIDERS: Emergency Provider Emergency Medicine; PCP Nurse Practitioner Family
DX: R07.9 Chest pain, unspecified (principal); R10.9 Unspecified abdominal pain; I10 Essential (primary) hypertension; Z87.442 Personal history of urinary calculi
CPT/HCPCS: 36415; 71275; 74177; 80053; 83690; 93005; 96361; 96374; 99285; 83735; 84484; 84703; 85025; 85610; 85730; 93010; 99283; J1885; J3490

== ENCOUNTER 2023-10-31 10:16 | Emergency (ER) | payer MEDICAID, SELFPAY ==
--- OUTSIDE RECORDS SUMMARY | 2023-10-31 10:21 | XMS_ITS | Continuity of Care Document ---
Author Organization [facility] Address [address] [place] [id number] Care Team Providers Care Spring Intern Name Role Phone Hieu Lombardi Primary Care Physician [phone] Encounter [facility] FIN NBR [id number] Date(s): 10/09/22 - 10/09/[address] [phone] Discharge Disposition: Home or Self Care Attending Physician: Mario Gomez MD Admitting Physician: Mario Gomez MD Allergies, Adverse Reactions, Alerts Substance Reaction Severity Status vancomycin Mild Active formoterol Unknown Unknown Active budesonide-formoterol Unknown Unknown Active Symbicort Mild Active formoterol-mometasone Unknown Unknown Active Cats Unknown Unknown Active Dogs Unknown Unknown Active Tape Unknown Active Banana Mild Active [place] Mild Active Dust Unknown Unknown Active Assessment and Plan Future Appointments Medications amitriptyline 10 mg oral tablet 10 mg = 1 tab, Oral, every night at bedtime RT, Taken 10 mg at bedtime, # 90 tab, 3 Refill(s), Pharmacy: [id number] Start Date: 10/08/22 Status: Ordered Dupixent Pre-filled Pen 300 mg/2 mL subcutaneous solution 300 mg =, Subcutaneous, every 2 wk, rotate injection sites, # 4 mL, 0 Refill(s) Start Date: 08/27/22 Status: Ordered Dupixent Pre-filled Syringe 300 mg/2 mL subcutaneous solution 4 unknown unit, 0 Refill(s), 0 Refill(s) Start Date: 09/29/22 Status: Ordered montelukast 10 mg oral tablet 10 mg = 1 tab, Oral, Daily, 0 Refill(s) Start Date: 08/27/22 Status: Ordered Trelegy Ellipta 200 mcg-62.5 mcg-25 mcg/inh inhalation powder 0 Refill(s) Start Date: 08/27/22 Status: Ordered Ventolin HFA 90 mcg/inh inhalation aerosol 18 g, INHALE 2 PUFFS BY MOUTH EVERY 6 HOURS NEEDED FOR SHORTNESS OF BREATH OR WHEEZING, 0 Refill(s) Start Date: 09/05/22 Status: Ordered Problem List Condition Confirmation Course Effective Dates Status H ealth Status Informant Anemia Confirmed Active Anxiety Confirmed Active Asthma Confirmed Active Cervical spondylosis Confirmed Active Menstrual abnormality Confirmed Active Insomnia Confirmed Active Migraine headache with aura Confirmed Active Migraine with aura, not intractable, without status migrainosus Confirmed Active Neck pain Confirmed Active Paresthesias Confirmed Active POTS (postural orthostatic tachycardia syndrome) Confirmed Active Sleep apnea Confirmed Active Neuroforaminal stenosis of cervical spine Confirmed Active Social History Social History Type Response Tobacco Never tobacco user, Tobacco use status unknown Tobacco Use:. Sex Patient Care team information Care Team Personnel Name: Hieu Lombardi Position: No Access Member Role: Primary Care Physician Address: Address: [address] [place] [address] Care Team Related Persons Name: JOAQUIM MCCOY Address: Home [address] [place] [phone] [facility] Name: JENIFFER GALLEGOS Address: Home
--- OUTSIDE RECORDS SUMMARY | 2023-10-31 10:21 | XMS_ITS | Continuity of Care Document ---
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 Bar Cashier Name Role Phone MINE, KEVEN Felix Primary Care Physician Encounter [facility] NBR [id number] Date(s): 11/20/22 - 11/20/22 [facility] [address] [place] [address]- Discharge Disposition: Home Allergies, Adverse Reactions, Alerts Substance Reaction Severity Status vancomycin Mild Active formoterol Unknown Unknown Active budesonide-formoterol Unknown Unknown Active Symbicort Mild Active formoterol-mometasone Unknown Unknown Active Cats Unknown Unknown Active Dogs Unknown Unknown Active Tape Unknown Active Banana Mild Active [place] Mild Active Dust Unknown Unknown Active Assessment and Plan Future Appointments Medications amitriptyline 10 mg oral tablet 10 mg = 1 tab, Oral, every night at bedtime RT, Taken 10 mg at bedtime, # 90 tab, 3 Refill(s), Pharmacy: [id number] Start Date: 10/08/22 Status: Ordered Dupixent Pre-filled Pen 300 mg/2 mL subcutaneous solution 300 mg =, Subcutaneous, every 2 wk, rotate injection sites, # 4 mL, 0 Refill(s) Start Date: 08/27/22 Status: Ordered Dupixent Pre-filled Syringe 300 mg/2 mL subcutaneous solution 4 unknown unit, 0 Refill(s), 0 Refill(s) Start Date: 09/29/22 Status: Ordered gabapentin 100 mg oral capsule 100 mg = 1 cap, Oral, Daily, # 90 cap, 1 Refill(s), Pharmacy: [id number] Start Date: 10/17/22 Status: Ordered montelukast 10 mg oral tablet [...] Care team information Care Team Personnel Name: KEVEN BLOUNT Position: No Access Member Role: Primary Care Physician Address: Address: [address] [place] [id number] Care Team Related Persons Name: JOAQUIM MCCOY Address: Home [address] [place] [phone] [facility] Name: JENIFFER GALLEGOS Address: Home
--- OUTSIDE RECORDS SUMMARY | 2023-10-31 10:21 | XMS_ITS | Continuity of Care Document ---
Author Organization [facility] Ambulatory Clinics Address [address] [place] [address] Care Team Providers Care Sand Hauler Name Role Phone KEVEN PURI DNP Primary Care Physician [phone] Encounter [facility] NBR [id number] Date(s): 05/07/23 - 05/07/23 [facility] Ambulatory Clin[facility] [address] [place], [place] [address] Encounter Diagnosis POTS (postural orthostatic tachycardia syndrome)(Discharge Diagnosis) - 05/07/23 Migraines(Discharge Diagnosis) - 05/07/23 Migraine headache with aura(Discharge Diagnosis) - 05/07/23 Sleep apnea(Discharge Diagnosis) - 05/07/23 Paresthesias(Discharge Diagnosis) - 05/07/23 Discharge Disposition: Home or Self Care Attending Physician: ANDREI ADORNO Referring Physician: KEVEN PURI DNP Allergies, Adverse Reactions, Alerts Substance Reaction Severity Status vancomycin Mild Active formoterol Unknown Unknown Active budesonide-formoterol Unknown Unknown Active Symbicort Mild Active Cats Unknown Unknown Active Kane Mild Active Banana Mild Active formoterol-mometasone Unknown Unknown Active Dogs Unknown Unknown Active Tape Unknown Active Dust Unknown Unknown Active Assessment and Plan Extracted from: Title:Office Visit Note Author:CAROLINA Morrissey PARTS ROOM ASSOCIATE-BC Date:05/07/23 1.??Migraine headache with a ura??G43.109 Ms. Isabel, a 33-year-old female with a long-standing history of migraines, reports experiencing one migraine since her last visit. She experienced adverse effects from sumatriptan, including dizziness, nausea, and lightheadedness, but found naproxen only helpful. She is open to trying a different abortive medication. - Plan: ?? - Discontinue sumatriptan due to adverse effects. ?? - Can Continue using naproxen 500 milligrams every eight hours as needed for headache resolution. ?? -??Will try her alternatively on Relpax as an alternative abortive medication due to its lower side effect profile.Will try her on the smaller dose of 20mg to start and it can be increased if needed. ?Metoprolol has been effective in managing symptoms related to her POTS, including positional changes, lightheadedness, dizziness, and racing heart. It?? has also helped her in terms of??headache preventative and improved BP. Since starting she has had only one migraine it the past month as well and has not experienced any side effects. ?? - Plan: ?-Continue Metoprolol succinate at increased dose. ?? - STOP Metoprolol succinate 25mg bid. ?? -??START metoprolol Succinate??50 milligrams BID for better management? of??POTS symptoms and blood pressure control. ?? Gabapentin for Migraine and Paresthesia - Assessment: The patient has previously found gabapentin helpful for tingling sensations in her mouth and as a complementary treatment for migraines. She also has a History of anxiety and Gabapentin can be helpful for this as well. - Plan: ?? - Continue gabapentin 200 milligrams QHS for management of tingling and as part of migraine treatment regimen. ? 2.??Paresthesias??R20.2 See above ?? 3.??Sleep apnea??G47.30 Sleep Apnea (JAMIE) - Assessment: Ms. Isable has a history of JAMIE with non-adherence to CPAP therapy. She reports difficulty with the CPAP machine and mentions that a recent sleep study was inconclusive due to lost data. - Plan: ?? - Patient to undergo another sleep study in May to reassess JAMIE and explore alternative management strategies if CPAP remains intolerable ? Migraines??G43.909 Ordered: Relpax 20 mg oral tablet, 20 mg = 1 tab, Oral, Daily, PRN as needed for migraine headache, may repeat dose once in 2 hours, # 6 tab, 0 Refill(s), Pharmacy: [facility], 165.1, cm, 05/07/23 15:22:00 EDT, Height, 77.29, kg, 05/07/23 15:30:00 EDT, Weight Dosing metoprolol succinate 50 mg oral tablet, extended release, 50 mg = 1 tab, Oral, BID, # 180 tab, 1 Refill(s), Pharmacy: [facility], 165.1, cm, 05/07/23 15:22:00 EDT, Height, 77.29, kg, 05/07/23 15:30:00 EDT, Weight Dosing ?? POTS (postural orthostatic tachycardia syndrome)??G90.A See above Ordered: metoprolol succinate 50 mg oral tablet, extended release, 50 mg = 1 tab, Oral, BID, # 180 tab, 1 Refill(s), Pharmacy: [facility], 165.1, cm, 05/07/23 15:22:00 EDT, Height, 77.29, kg, 05/07/23 15:30:00 EDT, Weight Dosing ?? Risks, Benefits , alternatives and complications discussed with the patient. All questions were answered to patient satisfaction at time of visit. I personally spent a total of?? 40??minutes??providing direct??care for this patient on the date of the encounter. Time included?? _, Preparing to see the patient (e.g., review of tests), Performing medically necessary appropriate exam and/or evaluation, Counseling and educating the patient/family/caregiver, Referring and communicating information in the EHR or other health records Future Appointments Medications albuterol 1.25 mg/3 mL (0.042%) inhalation solution 90 mL, 0 Refill(s), INHALE ONE VIAL VIA NEBULIZER FOUR TIMES A DAY NEEDED FOR SHORTNESS OF BREATH OR WHEEZING, 0 Refill(s) Start Date: 02/25/23 Status: Ordered Dupixent Pre-filled Pen 300 mg/2 mL subcutaneous solution 300 mg =, Subcutaneous, every 2 wk, rotate injection sites, # 4 mL, 0 Refill(s) Start Date: 08/27/22 Status: Ordered gabapentin 100 mg oral capsule 100 mg = 1 cap, Oral, TID, # 180 cap, 6 Refill(s), Pharmacy: [facility] Start Date: 12/10/22 Status: Ordered metoprolol succinate 50 mg oral tablet, extended release 50 mg = 1 tab, Oral, BID, # 180 tab, 1 Refill(s), Pharmacy: [facility], 165.1, cm, 05/07/23 15:22:00 EDT, Height, 77.29, kg, 05/07/23 15:30:00 EDT, Weight Dosing Start Date: 05/07/23 Stop Date: 11/03/23 Status: Ordered montelukast 10 mg oral tablet 10 mg = 1 tab, Oral, Daily, 0 Refill(s) Start Date: 08/27/22 Status: Ordered naproxen 500 mg oral tablet 500 mg = 1 tab, Oral, As Directed, PRN as needed for pain, Take 1 tablet every 8 hours as needed for headache, # 90 tab, 1 Refill(s), Pharmacy: [facility], 165.1, cm, 03/05/23 7:56:00 EST, Height, 76.11, kg, 03/05/23 8:01:00 EST, Weight Dosing Start Date: 03/05/23 Status: Ordered Relpax 20 mg oral tablet 20 mg = 1 tab, Oral, Daily, PRN as needed for migraine headache, may repeat dose once in 2 hours, #6 tab, 0 Refill(s), Pharmacy: [facility], 165.1, cm, 05/07/23 15:22:00 EDT, Height, 77.29, kg, 05/07/23 15:30:00 EDT, Weight Dosing Start Date: 05/07/23 Stop Date: 06/06/23 Status: Ordered Trelegy Ellipta 200 mcg-62.5 mcg-25 mcg/inh inhalation powder 0 Refill(s) Start Date: 08/27/22 Status: Ordered Ventolin HFA 90 mcg/inh inhalation aerosol 18 g, INHALE 2 PUFFS BY MOUTH EVERY 6 HOURS NEEDED FOR SHORTNESS OF BREATH OR WHEEZING, 0 Refill(s) Start Date: 09/05/22 Status: Ordered Vienva 100 mcg-20 mcg oral tablet 84 EA, 0 Refill(s), TAKE ONE TABLET BY MOUTH EVERY DAY CONTINUOUSLY (SKIP PLACEBO PILLS AND BEGIN THE NEXT PACK RIGHT AWAY), 0 Refill(s) Start Date: 12/10/22 Status: Ordered Problem List Condition Confirmation Course [...] Neuroforaminal stenosis of cervical spine Confirmed Active Vital Signs Most recent to oldest [Reference Range]: 1 Peripheral Pulse Rate [60-100 bpm] 107 b pm *HI* (05/07/23 3:22 PM) Blood Pressure [90-140/60-90 mmHg] 136/9 3mmHg (05/07/23 3:22 PM) Mean Arterial Pressure, Cuff [65-140 mmH g] 107 mmHg (05/07/23 3:22 PM) Weight 77.29 kg (05/07/23 3:22 PM) Weight Measured (lbs) 170.395 lb (05/07/23 3:22 PM) Weight Dosing 77.290 kg (05/07/23 3:22 PM) [place] Body Weight Calculated 57 kg (05/07/23 3:22 PM) Height 165.10 cm (05/07/23 3:22 PM) Height/Length Measured (inches) 65 inch (05/07/23 3:22 PM) BSA Measured 1.88 m2 (05/07/23 3:22 PM) Body Mass Index 28.35 kg/m2 (05/07/23 3:22 PM) Social History Social History Type Response Tobacco Never tobacco user, Tobacco use status unknown Tobacco Use:. Sex Physician Outpatient Note * VERNELL Morrissey-BC: PERFORM Event Display: Office Clinic Note Physician Authored Date: [id number] MIYA ISABEL I :1990 Age:33 years Sex:Female Visit Date:05/07/2023 Primary Care Physician: KEVEN PURI DNP Chief Complaint Pt comes today by herself for a migraine follow up. She notes her migraines have been fairly well controlled, feels it was related to her POTS. Metoprolol seems to be hleping. History of Present Illness Ms. Isabel, a 33-year-old right-handed female, presents for a follow-up visit concerning her migraines. Her significant past medical history includes asthma, POTs,??obstructive sleep apnea (JAMIE) with non-adherence to continuous positive airway pressure (CPAP), and cervical spondylosis. ?? Ms. Isabel has been experiencing headaches since the age of 15, with no notable changes in their pattern over the years. She describes a prodrome of neck tension and irritability occurring approximately 20 minutes before the onset of her headaches. These headaches are characterized by left occipital throbbing that eventually encompasses her entire head, with a pain intensity rated at 6/10. Accompanying symptoms include nausea and, less frequently, vomiting, as well as both photophobia and phonophobia. Post-headache, she experiences fatigue and concentration difficulties. Emotional distress has previously triggered her migraines. Miya has history of POTS, she described her symptoms as palpitations, lightheadedness and fatigue. Reservoir Caretaker prescribed diltiazem for her previously but she had no changes in BP and HR. She also noted??progressive tingling sensation and numbness localized exclusively in mouth, hands and feet that is not ascending and has been associated with hand weakness.??The paresthesia improved with Gabapentin. ?? During her last consultation with Dr. Gomez, Ms. Isabel was prescribed sumatriptan 50 mg as needed and naproxen 500 mg every eight hours as needed for headache management. She was advised to discontinue amitriptyline 25 mg at bedtime and to initiate metoprolol Succinate??25 mg twice daily formanaging her postural orthostatic tachycardia syndrome (POTS) and migraine prevention. Additionally, she was recommended to continue gabapentin 200 mg at bedtime (QHS) for tingling sensations, which she found beneficial for both the tingling and her migraines. ?? Since her last visit, she has experienced one migraine episode and reported dizziness, nausea, and lightheadedness lasting 30 to 40 minutes after taking sumatriptan. This was the worst feeling and Ihaven't used it again. It took an hour to go away Naproxen was found to be mildly??helpful. She??would consider trying a different abortive medication. ?? Ms. Isabel has been monitoring her blood pressure at home, noting high readings similar and higher than her BP today, but reports that metoprolol has alleviated symptoms related to positional changes, lightheadedness, dizziness, and a racing heart. Despite having sleep apnea, she struggles with using the CPAP machine. A previous sleep study was inconclusive due to data loss, and she is scheduled for a repeat study in May. She reports maintaining adequate hydration levels. Review of Systems The patient has denies any additional neurologic, psychiatric, head, ears, eyes, nose, throat, pulmonary, cardiovascular, gastrointestinal, musculoskeletal, skin, endocrine, renal, immunological, allergic, lymphoid, rheumatologic??and hematological symptoms other than those noted above. Physical Exam Vitals & Measurements HR:??107??(Peripheral)?? BP:??136/93?? HT:??165.10??cm?? WT:??77.29??kg?? BMI:??28.35?? BSA:??1.88?? General: ??Awake, Alert, and oriented, No acute distress, Well developed, appears stated age, seated calmly with hands in lap? Head: ??Normocephalic and atraumatic ?? Eyes:?? Conjunctivae are clear without exudates or hemorrhage. Non-icteric sclera. EOM intact, PERRLA. Eyelids??are?? nml in appearance without swelling or lesions.?? Visual field defect, None Optic Disc, nml: creamy orange/pink, disc vessels are tiny, Disc margins are sharp ?? Neck: ??NML: The neck is supple without adenopathy. Trachea is midline. Thyroid gland is normal without masses. Carotid pulse 2+ bilaterally without bruit. No JVD. ?? Cardiac:?? Tachycardic, S1, S2 no 3rd heart sounds noted. ?? Abdominal: Abdomen is soft, symmetric, non-tender w/o distention.? MSK: Neck & back are w/o deformity,??Curvature of the cervical, thoracic, and lumbar spine are within normal limits., Bony features of the shoulders and hips are of equal height bilaterally. Posture is upright, gait is nml., No tenderness noted on palpation of the spinous processes. Sensation to theupper & lower extremities is normal bilaterally.?? Upper and lower extremities are atraumatic in appearance w/o tenderness or deformity. No swelling or erythema. Full ROM noted to all joints. Muscle strength is 5/5 bilaterally to upper and lower extremities. Capillary refill is <3 seconds in all extremities.??No gait abnormalities are appreciated. ?? Neurological:?? Awake, alert and oriented x 4, speech is??clear and nml??in??tone and??quality. Sensation intact bilaterally. Reflexes 3+ bilaterally throughout??w/o evidence??of clonus.??CN II-IIV??are intact. No Nystagmus. Cerebellar function is intact. Memory is normal and thought process is intact. ?? Psychiatric: Appropriate mood and affect. Good judgement and insight. ?? Skin: Skin in warm, dry and intact without rashes or lesions. Appropriate color for ethnicity. Nailbeds pink with no cyanosis or clubbing. Medical Decision Making: ??Medications Used For Migraines ? Abortives OTC: Yes??-Tylenol up 1000 mg, ineffective? Yes??-Ibuprofen up to 600 mg, Mildly helpful Yes??Naproxen 500 mg?? Mildly helpful? Yes??-Cefaly, ineffective? Triptans: No??almotriptan??(Axert) Yes??eletriptan??(Relpax) Currently evaluating via use trial No??frovatriptan??(Frova) No??lasmiditan??(Reyvow) No??naratriptan??(Amerge) No??rizatriptan??(Maxalt) Yes?sumatriptan??(Imitrex,?Zembrace etc) NOT TAKING Due to S/E: nausea, dizziness, fatigue No??zolmitriptan??(Zomig) ?Anti epileptics Narrow-spectrum AEDs: No??phenytoin (Dilantin) No??phenobarbital No??carbamazepine (Tegretol) No??oxcarbazepine (Trileptal) Yes??gabapentin (Neurontin) CURRENTLY using helping more for tingling No??pregabalin (Lyrica) No??lacosamide (Vimpat) No??vigabatrin (Sabril) Broad-spectrum AEDs: No??valproic acid??(Depakote) No??lamotrigine??(Lamictal) No??topiramate (Topamax) No??zonisamide (Zonegran) No??levetiracetam (Keppra) No??clonazepam (Klonopin) No??rufinamide (Banzel) ?? Betablockers No??acebutolol (Sectral) No??atenolol (Tenormin) No??bisoprolol (Zebeta) Yes??metoprolol(Zebeta) CURRENTLY using with improvement No??nadolol (Corgard No??nebivolol (Bystolic) No??propranolol (Inderal, InnoPran XL) ? Antidepressants SSRIs No??citalopram (Celexa) No??escitalopram (Lexapro) No??fluoxetine (Prozac) No??fluvoxamine (Luvox) No??paroxetine (Paxil) No??sertraline (Zoloft ?? SNRIs No??desvenlafaxine??(Pristiq) No??duloxetine??(Cymbalta) No??venlafaxine??(Effexor) No??milnacipran??(Savella) No??levomilnacipran??(Fetzima) ?? Tricyclic antidepressants Yes??Amitriptyline??(Elavil)NOT TAKING initially was helpful but stopped being effective No??desipramine??(Norpramin) No??doxepine??(Sinequan) No??imipramine??(Tofranil) No??nortriptyline??(Pamelor) No??amoxapine No??clomipramine??(Anafranil) No??maprotiline??(Ludiomil) No??trimipramine??(Surmontil) No??protriptyline??(Vivactil) ?? MAOIs No??phenelzine??(Nardil) No??selegiline??(Emsam) No??tranylcypromine??(Parnate) No??Atypical Antidepressants No??Bupropion??(Wellbutrin) No??Mirtazapine??(Remeron) No??Nefazodone??(Serzone) No??Trazodone??(Desyrel, Oleptro) No??Vilazodone??(Viibryd) No??Vortioxetine??(Brintellix) ?? Assessment/Plan 1.??Migraine headache with aura??G43.109 Ms. Isabel, a 33-year-old female with a long-standing history of migraines, reports experiencing one migraine since her last visit. She experienced adverse effects from sumatriptan, including dizziness, nausea, and lightheadedness, but found naproxen only helpful. She is open to trying a different abortive medication. - Plan: ?? - Discontinue sumatriptan due to adverse effects. ?? - Can Continue using naproxen 500 milligrams every eight hours as needed for headache resolution. ?? -??Will try her alternatively on Relpax as an alternative abortive medication due to its lower side effect profile.Will try her on the smaller dose of 20mg to start and it can be increased if needed. ?Metoprolol has been effective in managing symptoms related to her POTS, including positional changes, lightheadedness, dizziness, and racing heart. It?? has also helped her in terms of??headache preventative and improved BP. Since starting she has had only one migraine it the past month as well and has not experienced any side effects. ?? - Plan: ?-Continue Metoprolol succinate at increased dose. ?? - STOP Metoprolol succinate 25mg bid. ?? -??START metoprolol Succinate??50 milligrams BID for better management? of??POTS symptoms and blood pressure control. ?? Gabapentin for Migraine and Paresthesia - Assessment: The patient has previously found gabapentin helpful for tingling sensations in her mouth and as a complementary treatment for migraines. She also has a History of anxiety and Gabapentincan be helpful for this as well. - Plan: ?? - Continue gabapentin 200 milligrams QHS for management of tingling and as part of migraine treatment regimen. ?? 2.??Paresthesias??R20.2 See above ?? 3.??Sleep apnea??G47.30 Sleep Apnea (JAMIE) - Assessment: Ms. Isabel has a history of JAMIE with non-adherence to CPAP therapy. She reports difficulty with the CPAP machine and mentions that a recent sleep study was inconclusive due to lost data. - Plan: ?? - Patient to undergo another sleep study in May to reassess JAMIE and explore alternative management strategies if CPAP remains intolerable ?? Migraines??G43.909 Ordered: Relpax 20 mg oral tablet, 20 mg = 1 tab, Oral, Daily, PRN as needed for migraine headache, may repeat dose once in 2 hours, # 6 tab, 0 Refill(s), Pharmacy: [facility], 165.1, cm, 05/07/23 15:22:00 EDT, Height, 77.29, kg, 05/07/23 15:30:00 EDT, Weight Dosing metoprolol succinate 50 mg oral tablet, extended release, 50 mg = 1 tab, Oral, BID, # 180 tab, 1 Refill(s), Pharmacy: [facility], 165.1, cm, 05/07/23 15:22:00 EDT, Height, 77.29, kg, 05/07/23 15:30:00 EDT, Weight Dosing ?? POTS (postural orthostatic tachycardia syndrome)??G90.A See above Ordered: metoprolol succinate 50 mg oral tablet, extended release, 50 mg = 1 tab, Oral, BID, # 180 tab, 1 Refill(s), Pharmacy: [facility], 165.1, cm, 05/07/23 15:22:00 EDT, Height, 77.29, kg, 05/07/23 15:30:00 EDT, Weight Dosing ?? Risks, Benefits , alternatives and complications discussed with the patient. All questions were answered to patient satisfaction at time of visit. I personally spent a total of??40??minutes??providing direct??care for this patient on the date of the encounter. Time included??_, Preparing to see the patient (e.g., review of tests), Performing medically necessary appropriate exam and/or evaluation, Counseling and educating the patient/family/caregiver, Referring and communicating information in the EHR or other health records Patient Instructions Dear Ms. Isabel, ?? Thank you for visiting us again and for your dedication to improving your health. Your efforts in managing your migraines and overall well-being are truly commendable. Below is a summary of the martins instructions and updates provided during your visit: ?? - Medications: ?? -Stop the sumatriptan since you had intolerable side effects. ?-Start the Relpax 20mg as needed for acute migraine. If symptoms persist or? return, may repeat dose after 2 hours. ?? - You can continue to use the??Naproxen 500 mg daily as needed??for alternative migraine abortive treatment of in conjunction with the Relpax??if it was needed. ? - Increase Metoprolol dosage to 50 mg?? bid to assist with your POTS symptoms and migraine prevention. The new prescription will be for one tablet; you may double up to use any remaining lower-dose tablets if you would like to use them up before picking up your new prescription. ?? - Continue Gabapentin 200 mg at bedtime (QHS) for tingling and migraine management. ?? - Lifestyle and Monitoring: ?? - Continue monitoring your blood pressure at home. It's encouraging to hear that Metoprolol has been beneficial for your symptoms. ?? - Stay hydrated, as you've been doing. ?? - Follow-Up: ?? - You mentioned the need to redo a sleep study in May due to lost data. It's important to keepus updated on this, as managing your sleep apnea is crucial for your overall health and migraine management. ?? Your proactive approach to managing your health is inspiring. Remember, we are here to support you every step of the way. Please don't hesitate to reach out if you have any questions or concerns about your treatment plan before your next scheduled visit. ?? Best regards, Andrei Adorno APRN Problem List/Past Medical History Ongoing Anemia Anxiety Asthma Cervical spondylosis Insomnia Menstrual abnormality Migraine headache with aura Migraine with aura, not intractable, without status migrainosus Neck pain Neuroforaminal stenosis of cervical spine Paresthesias POTS (postural orthostatic tachycardia syndrome) Sleep apnea Historical No qualifying data Medications albuterol 1.25 mg/3 mL (0.042%) inhalation solution Dupixent Pre-filled Pen 300 mg/2 mL subcutaneous solution, 300 mg, Subcutaneous, every 2 wk gabapentin 100 mg oral capsule, 100 mg= 1 cap, Oral, TID, 6 refills metoprolol succinate 50 mg oral tablet, extended release, 50 mg= 1 tab, Oral, BID, 1 refills montelukast 10 mg oral tablet, 10 mg= 1 tab, Oral, Daily naproxen 500 mg oral tablet, 500 mg= 1 tab, Oral, As Directed, PRN, 1 refills Relpax 20 mg oral tablet, 20 mg= 1 tab, Oral, Daily, PRN Trelegy Ellipta 200 mcg-62.5 mcg-25 mcg/inh inhalation powder Ventolin HFA 90 mcg/inh inhalation aerosol Vienva 100 mcg-20 mcg oral tablet Allergies Banana Kane Symbicort vancomycin Cats??(Unknown) Dogs??(Unknown) Dust??(Unknown) Tape budesonide-formoterol??(Unknown) formoterol??(Unknown) formoterol-mometasone??(Unknown) Social History Alcohol Never Electronic Cigarette/Vaping Electronic Cigarette Use: Never, Unknown/not obtained. Tobacco Never tobacco user, Tobacco use status unknown Tobacco Use:. Family History Hypertension: Father. Diagnostic Results Diagnostic Study Interpretation: MRI brain did not show any intracranial lesions. Electronically Signed on 05/07/23 05:44 PM VERNELL Morrissey- Reviewed by: Mario Gomez MD Patient Care team information Care Team Personnel Name: KEVEN PURI DNP Position: No Access Member Role: Primary Care Physician Address: Address: [place] [address]- Care Team Related Persons Name: JOAQUIM MCCOY Address: Home [address], [place] [id number] [facility] Name: JENIFFER GALLEGOS Name: MERLE JARRETT Address: Home [address] [place] [address]
--- OUTSIDE RECORDS SUMMARY | 2023-10-31 10:21 | XMS_ITS | Continuity of Care Document ---
Author Organization [facility] Address [address] [place] [id number] Care Team Providers Care Executive Relations Specialist Name Role Phone JAXSON KEVEN LEMON Primary Care Physician Encounter [facility] NBR [id number] Date(s): 10/21/23 - 10/21/[address] [id number] Encounter Diagnosis Unspecified asthma, uncomplicated(Final) - Discharge Disposition: Home or Self Care Attending Physician: Patience Llamas MD Admitting Physician: Patience Llamas MD Allergies, Adverse Reactions, Alerts Substance Criticality Severity Reaction Reaction Severity Status vancomycin Low criticality Mild Act jamshid formoterol Unable to assess criticality Unknown Unknown Active budesonide-formoterol Unable to assess criticality Unknown Unknown Active formoterol-mometasone Unable to assess criticality Unknown Unknown Active Dogs Unable to assess criticality Unknown Unknown Active Banana Low criticality Mild Acti ve [place] Low criticality Mild Acti ve Dust Unable to assess criticality Unknown Unknown Active Symbicort Low criticality Mild Acti ve Cats Unable to assess criticality Unknown Unknown Active Tape Unable to assess criticality Unknown Active Assessment and Plan Future Appointments Diagnostic Tests Pending * Immunoglobulin E, Total LC 10/21/23 Medications albuterol 1.25 mg/3 mL (0.042%) inhalation solution 90 mL, 0 Refill(s), INHALE ONE VIAL VIA NEBULIZER FOUR TIMES A DAY NEEDED FOR SHORTNESS OF BREATH OR WHEEZING, 0 Refill(s) Start Date: 02/25/23 Status: Ordered amitriptyline 25 mg oral tablet 90 EA, 0 Refill(s), TAKE ONE TABLET BY MOUTH AT BEDTIME, 0 Refill(s) Start Date: 08/06/23 Status: Ordered Cartia XT 120 mg/24 hours oral capsule, extended release 90 EA, 0 Refill(s), TAKE ONE CAPSULE BY MOUTH EVERY DAY, 0 Refill(s) Start Date: 08/06/23 Status: Ordered Deblitane 0.35 mg oral tablet 84 EA, 0 Refill(s), TAKE ONE TABLET BY MOUTH EVERY DAY, 0 Refill(s) Start Date: 09/28/23 Status: Ordered gabapentin 100 mg oral capsule 100 mg = 1 cap, Oral, TID, # 180 cap, 6 Refill(s), Pharmacy: [id number] Start Date: 12/10/22 Status: Ordered hydrOXYzine hydrochloride 25 mg oral tablet 25 mg = 1 tab, Oral, Daily, # 30 tab, 0 Refill(s) Start Date: 10/21/23 Status: Ordered Lexapro 20 mg oral tablet 20 mg = 1 tab, Oral, Daily, # 30 tab, 0 Refill(s) Start Date: 10/21/23 Status: Ordered metoprolol succinate 50 mg oral tablet, extended release 50 mg = 1 tab, Oral, BID, # 180 tab, 1 Refill(s), Pharmacy: [id number], 165.1, cm, 05/07/23 15:22:00 EDT, Height, [...] headache, # 90 tab, 1 Refill(s), Pharmacy: [id number], 165.1, cm, 03/05/23 7:56:00 EST, Height, 76.11, kg, 03/05/23 8:01:00 EST, Weight Dosing Start Date: 03/05/23 Status: Ordered Relpax 20 mg oral tablet 20 mg = 1 tab, Oral, Daily, PRN as needed for migraine headache, may repeat dose once in 2 hours, #12 tab, 1 Refill(s), Pharmacy: [id number], 165.1, cm, 08/06/23 7:59:00 EDT, Height, 77.2, kg,08/06/23 8:07:00 EDT, Weight Dosing Start Date: 08/06/23 Status: Ordered Trelegy Ellipta 200 mcg-62.5 mcg-25 [...] Active Anxiety Confirmed Active Asthma Confirmed Active Bilateral sacroiliitis Confirmed Active Cervical spondylosis Confirmed Active Menstrual abnormality Confirmed Active Insomnia Confirmed Active Migraine headache with aura Confirmed Active Migraine with aura, not intractable, without status migrainosus Confirmed Active Neck pain Confirmed Active Paresthesias Confirmed Active POTS (postural orthostatic tachycardia syndrome) Confirmed Active Sleep apnea Confirmed Active Neuroforaminal stenosis of cervical spine Confirmed Active Procedures Procedure Date Related Diagnosis Body Site Status Colonoscopy 2019 Completed section 09/02/15 Complete d Extraction of wisdom tooth Completed Results Laboratory List Name Date CBC w/ Manual Diff 10/21/23 .Manual Differential (LTTL) 10/21/23 Most recent to oldest [Reference Range]: 1 WBC [4.8-10.8 K/mcL] 6.5 K/mcL (10/21/23 4:27 PM) RBC [4.20-5.40 Million/mcL] 5.17 Million /mcL (10/21/23 4:27 PM) Segs Man 59 *NA* (10/21/23 4:27 PM) Lymph Man [20.5-51.1 %] 37.0 % (10/21/23 4:27 PM) [place] Man [1.7-9.3 %] 2.0 % (10/21/23 4:27 PM) Eos Man [0.00-3.00 %] 2.00 % (10/21/23 4:27 PM) MCV [81.0-99.0 fL] 73.7 fL *LOW* (10/21/23 4:27 PM) RBC Morph [Normal] Abnormal *ABN* (10/21/23 4:27 PM) MCHC [32.0-37.0 g/dL] 32.6 g/dL (10/21/23 4:27 PM) Hct [37.0-47.0 %] 38.1 % (10/21/23 4:27 PM) Microcyte 1+ *ABN* (10/21/23 4:27 PM) Hypochromia 1+ *ABN* (10/21/23 4: PM) MCH [27.0-31.0 pg] 24.0 pg *LOW* (10/21/23 4:27 PM) Hgb [12.0-16.0 g/dL] 12.4 g/dL (10/21/23 4:27 PM) MPV [7.4-10.4 fL] 8.5 fL (10/21/23 4:27 PM) Band Man 0 % *NA* (10/21/23 4:27 PM) Platelets [130-400 K/mcL] 311 K/mcL (10/21/23 4:27 PM) RDW-CV [11.5-14.5 %] 16.9 % *HI* (10/21/23 4:27 PM) Ovalocytes 1+ *ABN* (10/21/23 4:27 PM) Abs Baso Man [0.0-0.2 K/mcL] 0.0 K/mcL (10/21/23 4:27 PM) Abs Eos Man [0.0-0.2 K/mcL] 0.1 K/mcL (10/21/23 4:27 PM) Abs Lymph Man [1.2-3.4 K/mcL] 2.4 K/mcL (10/21/23 4:27 PM) Abs [place] Man [0.1-0.6 K/mcL] 0.1 K/mcL (10/21/23 4:27 PM) Abs Neut Man [1.4-6.5 K/mcL] 3.8 K/mcL (10/21/23 4:27 PM) Plt Estimation Normal (10/21/23 4:27 PM) Baso Man [0.0-0.8 %] 0.0 % (10/21/23 4:27 PM) Social History Social History Type Response Tobacco Never tobacco user, Tobacco use status unknown Tobacco Use:. Sex Sex Representation Female (finding) Patient Care team information Care Team Personnel Name: KEVEN PURI DNP Position: No Access Member Role: Primary Care Physician Address: [address] Care Team Related Persons Name: JOAQUIM MCCOY Name: JENIFFER GALLEGOS Name: MERLE JARRETT Insurance Providers Guarantor name: KIANA ISABEL Health Plan Information #: 1 Payer: [place] [place] Member Number: [id number] Policy Number: NA Health Plan Information #: 2 Payer: [place] [place] Member Number: [id number] Policy Number: NA
--- OUTSIDE RECORDS SUMMARY | 2023-10-31 10:21 | XMS_ITS | Continuity of Care Document ---
Author Organization [facility] Address [address] [place] [id number] Care Team Providers Care Beam Warper Name Role Phone KEVEN PURI DNP Primary Care Physician [phone] Encounter [facility] NBR [id number] Date(s): 09/14/23 - 09/14/[address] [id number] Encounter Diagnosis Pleuritis(Discharge Diagnosis) - 09/14/23 Bronchitis(Discharge Diagnosis) - 09/14/23 Pleurisy(Final) - Bronchitis, not specified as acute or chronic(Final) - Discharge Disposition: Home or Self Care Attending Physician: Golden Cabrera MD Admitting Physician: Golden Cabrera MD Allergies, Adverse Reactions, Alerts Substance Reaction Severity Status vancomycin Mild Active formoterol Unknown Unknown Active Symbicort Mild Active formoterol-mometasone Unknown Unknown Active Dogs Unknown Unknown Active Tape Unknown Active Dust Unknown Unknown Active [place] Mild Active budesonide-formoterol Unknown Unknown Active Cats Unknown Unknown Active Banana Mild Active Assessment and Plan Extracted from: Title:ED Provider Note Author:Martha Barney Date:09/14/23 Assessment/Plan 1.??Pleuritis??R09.1 Ordered: Zithromax Z-Reji 250 mg oral tablet, 1 packets, Oral, Daily, Take 2 tablets on day 1 and 1 tablet days 2 through 5 with a quantity of 6., # 6 tab, 0 Refill(s), Pharmacy: [id number], 162.5, cm, 09/14/23 12:58:00 EDT, Height, 74.4, kg, 09/14/23 13:01:00 EDT, Weight Dosing ?? 2.??Bronchitis??J40 Ordered: Zithromax Z-Reji 250 mg oral tablet, 1 packets, Oral, Daily, Take 2 tablets on day 1 and 1 tablet days 2 through 5 with a quantity of 6., # 6 tab, 0 Refill(s), Pharmacy: [facility], 162.5, cm, 09/14/23 12:58:00 EDT, Height, 74.4, kg, 09/14/23 13:01:00 EDT, Weight Dosing ?? Orders: acetaminophen, 1,000 mg = 100 mL, IV Piggyback, Injection, Once, Administer over: 0.3 hr, First Dose: 09/14/23 17:00:00 EDT, Stop Date: 09/14/23 17:00:00 EDT, Physician Stop, Routine, 400 mL/hr Percocet 5 mg-325 mg oral tablet, 1 tab, Oral, every 4 hr, PRN as needed for pain, # 12 tab, 0 Refill(s), Pharmacy: [id number], 162.5, cm, 09/14/23 12:58:00 EDT, Height, 74.4, kg, 09/14/23 13:01:00 EDT, Weight Dosing Discharge Patient, 09/14/23 16:17:00 EDT, Home Independently An opioid medication was prescribed today to treat the patient's acute pain. Non-pharmacologic and non-controlled alternative medication options were discussed today. The use of an opioid was deemed appropriate to provide the patient with adequate pain relief for their acute pain issues. A [place] Board of [place] approved risk assessment tool was utilized, see nursing notes. The patient's risk score was taken into account when determining an appropriate plan for pain control. The risk of addiction was reviewed with the patient today. The informed consent and agreement for opioid therapy was signed with the patient, outlining the risks associated with opioid use. The prescription provided represents the lowest effective dose of opioid and the quantity was prescirbed for the fewest number of days. The [place] Prescription Drug Monitoring Program was queried prior to prescribing an opioid today and the results of the query reviewed.?? Patient Education Acute Bronchitis, Adult Pleurisy Future Appointments Medications [facility] Prescription 180 EA, 0 Refill(s), TAKE ONE TABLET BY MOUTH TWICE A DAY, 0 Refill(s) Start Date: 08/06/23 Status: Ordered albuterol 1.25 mg/3 mL (0.042%) inhalation solution 90 mL, 0 Refill(s), INHALE ONE VIAL VIA NEBULIZER FOUR TIMES A DAY NEEDED FOR SHORTNESS OF BREATH OR WHEEZING, 0 Refill(s) Start Date: 02/25/23 Status: Ordered amitriptyline 25 mg oral tablet 90 EA, 0 Refill(s), TAKE ONE TABLET BY MOUTH AT BEDTIME, 0 Refill(s) Start Date: 08/06/23 Status: Ordered amoxicillin 400 mg/5 mL oral liquid 200 mL, 0 Refill(s), TAKE 12.5ML BY MOUTH THREE TIMES A DAY FOR 5 DAYS - DISCARD ANY UNUSED PORTION, 0 Refill(s) Start Date: 08/06/23 Status: Ordered benzonatate 100 mg oral capsule 20 EA, 0 Refill(s), 0 Refill(s) Start Date: 08/06/23 Status: Ordered Cartia XT 120 mg/24 hours oral capsule, extended release 90 EA, 0 Refill(s), TAKE ONE CAPSULE BY MOUTH EVERY DAY, 0 Refill(s) Start Date: 08/06/23 Status: Ordered cefdinir 250 mg/5 mL oral liquid 100 mL, 0 Refill(s), TAKE 6ML BY MOUTH EVERY 12 HOURS FOR 7 DAYS - DISCARD ANY UNUSED PORTION, 0 Refill(s) Start Date: 08/06/23 Status: Ordered cephalexin 500 mg oral capsule 14 EA, 0 Refill(s), 0 Refill(s) Start Date: 08/06/23 Status: Ordered Dupixent Pre-filled Pen 300 mg/2 mL subcutaneous solution 300 mg =, Subcutaneous, every 2 wk, rotate injection sites, # 4 mL, 0 Refill(s) Start Date: 08/27/22 Status: Ordered eletriptan 20 mg oral tablet 6 EA, 0 Refill(s), TAKE ONE TABLET BY MOUTH ONCE NEEDED FOR MIGRAINE HEADACHE; MAY REPEAT DOSE IN 2 HOURS, 0 Refill(s) Start Date: 08/06/23 Status: Ordered fluconazole 150 mg oral tablet 2 EA, 0 Refill(s), TAKE ONE TALBET BY MOUTH AT ONSET OF SYMPTOMS CONCERNING FOR YEAST. CAN REPEAT SINGLE DOSE IN 72 HOURS IF SYMPTOMS HAVE NOT COMPLETELY RESOL, 0 Refill(s) Start Date: 08/06/23 Status: Ordered fluticasone 50 mcg/inh nasal spray 16 g, 0 Refill(s), USE 1 SPRAY IN EACH NOSTRIL ONCE DAILY, 0 Refill(s) Start Date: 08/06/23 Status: Ordered gabapentin 100 mg oral capsule 100 mg = 1 cap, Oral, TID, # 180 cap, 6 Refill(s), Pharmacy: [facility] Start Date: 12/10/22 Status: Ordered LORazepam 0.5 mg oral tablet 2 EA, 0 Refill(s), 0 Refill(s) Start Date: 08/06/23 Status: Ordered metoprolol succinate 50 mg oral tablet, extended release 50 mg = 1 tab, Oral, BID, # 180 tab, 1 Refill(s), Pharmacy: [facility], 165.1, cm, 05/07/23 15:22:00 EDT, Height, [...] headache, # 90 tab, 1 Refill(s), Pharmacy: [facility], 165.1, cm, 03/05/23 7:56:00 EST, Height, 76.11, kg, 03/05/23 8:01:00 EST, Weight Dosing Start Date: 03/05/23 Status: Ordered Percocet 5 mg-325 mg oral tablet 1 tab, Oral, every 4 hr, PRN as needed for pain, # 12 tab, 0 Refill(s), Pharmacy: [facility],162.5, cm, 09/14/23 12:58:00 EDT, Height, 74.4, kg, 09/14/23 13:01:00 EDT, Weight Dosing Start Date: 09/14/23 Status: Ordered predniSONE 10 mg oral tablet 18 EA, 0 Refill(s), TAKE 3 TABLETS DAILY FOR 3 DAYS; THEN 2 TABLETS DAILY FOR 3 DAYS; THEN 1 TABLETDAILY FOR 3 DAYS THEN STOP, 0 Refill(s) Start Date: 08/06/23 Status: Ordered predniSONE 20 mg oral tablet 10 EA, 0 Refill(s), 0 Refill(s) Start Date: 08/06/23 Status: Ordered Relpax 20 mg oral tablet 20 mg = 1 tab, Oral, Daily, PRN as needed for migraine headache, may repeat dose once in 2 hours, #12 tab, 1 Refill(s), Pharmacy: [facility], 165.1, cm, 08/06/23 7:59:00 EDT, Height, 77.2, kg,08/06/23 8:07:00 EDT, Weight Dosing Start Date: 08/06/23 Status: Ordered SUMAtriptan 50 mg oral tablet 9 EA, 0 Refill(s), TAKE ONE TABLET BY MOUTH ONCE NEEDED FOR MIGRAINE HEADACHE; MAY REPEAT DOSE AFTER 2 HOURS UP TO A MAX OF 200MG IN 24 HOURS, 0 Refill(s) Start Date: 08/06/23 Status: Ordered Trelegy Ellipta [...] 0 Refill(s) Start Date: 12/10/22 Status: Ordered Zithromax Z-Reji 250 mg oral tablet 1 packets, Oral, Daily, Take 2 tablets on day 1 and 1 tablet days 2 through 5 with a quantity of 6., # 6 tab, 0 Refill(s), Pharmacy: [facility], 162.5, cm, 09/14/23 12:58:00 EDT, Height, 74.4, kg, 09/14/23 13:01:00 EDT, Weight Dosing Start Date: 09/14/23 Stop Date: 09/19/23 Status: Ordered Problem List Condition Confirmation Course [...] Neuroforaminal stenosis of cervical spine Confirmed Active Results Laboratory List Name Date D-Dimer 09/14/23 .Morphology (LTTL) 09/14/23 CBC w/ Diff 09/14/23 Comprehensive Metabolic Panel (CMP) 09/13 Magnesium Level 09/14/23 Troponin-I High Sensitivity 09/14/23 Automated Diff 09/14/23 Most recent to oldest [Reference Range]: 1 WBC [4.8-10.8 K/mcL] 6.1 K/mcL (09/14/23 1:13 PM) RBC [4.20-5.40 Million/mcL] 5.17 Million /mcL (09/14/23 1:13 PM) Neutro Auto [42.2-75.2 %] 62.2 % (09/14/23 1:13 PM) Lymph Auto [20.5-51.1 %] 30.7 % (09/14/23 1:13 PM) [place] Auto [1.7-9.3 %] 5.5 % (09/14/23 1:13 PM) Basophil Auto [0.0-0.8 %] 0.6 % (09/14/23 1:13 PM) BUN [7-25 mg/dL] 5 mg/dL *LOW* (09/14/23 1:21 PM) Glucose Level [70-109 mg/dL] 99 mg/dL (09/14/23 1:21 PM) Acanthocyte 1+ *ABN* (09/14/23 1:13 PM) Potassium Level [3.5-5.1 mmol/L] 3.2 mmo l/L *LOW* (09/14/23 1:21 PM) Baso Absolute [0.0-0.2 K/mcL] 0.0 K/mcL (09/14/23 1:13 PM) MCV [81.0-99.0 fL] 73.1 fL *LOW* (09/14/23 1:13 PM) RBC Morph [Normal] Abnormal *ABN* (09/14/23 1:13 PM) AST [13-39 IntlUnit/L] 38 IntlUnit/L (09/14/23 1:21 PM) ALT [7-52 IntlUnit/L] 48 IntlUnit/L (09/14/23 1:21 PM) MCHC [32.0-37.0 g/dL] 32.8 g/dL (09/14/23 1:13 PM) Osmolality [275-295 mOsm/kg] 275 mOsm/kg (09/14/23 1: PM) Sodium Level [136-145 mmol/L] 139 mmol/L (09/14/23 1: PM) Lymph Absolute [1.2-3.4 K/mcL] 1.9 K/mcL (09/14/23 1:13 PM) Hct [37.0-47.0 %] 37.8 % (09/14/23 1:13 PM) Microcyte 1+ *ABN* (09/14/23 1: PM) Hypochromia 1+ *ABN* (09/14/23 1:13 PM) Calcium Level [8.6-10.3 mg/dL] 9.5 mg/dL (09/14/23 1:21 PM) [place] Absolute [0.1-0.6 K/mcL] 0.3 K/mcL (09/14/23 1:13 PM) Albumin Level [3.5-5.7 g/dL] 4.6 g/dL (09/14/23 1: PM) Protein Total [6.4-8.9 g/dL] 7.5 g/dL (09/14/23 1:21 PM) MCH [27.0-31.0 pg] 24.0 pg *LOW* (09/14/23 1:13 PM) Magnesium Level [1.9-2.7 mg/dL] 2.1 mg/d L (09/14/23 1:21 PM) Neutro Absolute [1.4-6.5 K/mcL] 3.8 K/mc L (09/14/23 1:13 PM) Bilirubin Total [0.3-1.0 mg/dL] 0.3 mg/d L (09/14/23 1:21 PM) Hgb [12.0-16.0 g/dL] 12.4 g/dL (09/14/23 1:13 PM) Alk Phos [34-104 IntlUnit/L] 59 IntlUnit /L (09/14/23 1:21 PM) MPV [7.4-10.4 fL] 8.7 fL (09/14/23 1:13 PM) Platelets [130-400 K/mcL] 218 K/mcL (09/14/23 1:13 PM) CO2 [21-31 mmol/L] 26 mmol/L (09/14/23 1: PM) Eos Absolute [0.0-0.2 K/mcL] 0.1 K/mcL (09/14/23 1:13 PM) Chloride Level [98-107 mmol/L] 104 mmol/ L (09/14/23 1:21 PM) RDW-CV [11.5-14.5 %] 16.4 % *HI* (09/14/23 1:13 PM) A/G Ratio [1.0-2.5 g/dL] 1.6 g/dL (09/14/23 1:21 PM) BUN/Creat Ratio [8.0-20.0] 5.6 *LOW* (09/14/23 1: PM) Globulin [2.3-3.5 g/dL] 2.9 g/dL (09/14/23 1: PM) Slide Review Morph Only (09/14/23 1:13 PM) Creatinine Level [0.60-1.20 mg/dL] 0.90 mg/dL (09/14/23 1:21 PM) Plt Estimation Normal (09/14/23 1:13 PM) Troponin-I HS [<=12 ng/L] <2 ng/L 1 (09/14/23 1:21 PM) Anion Gap [3.0-12.0] 9.0 (09/14/23 1:21 PM) D Dimer, (Quant.) [<=500 ng(FEU)/mL] 119 ng(FEU)/mL 2 (09/14/23 1:21 PM) Eos, Auto [0.00-3.00 %] 1.00 % (09/14/23 1:13 PM) eGFR CKD-EPI [>=60 mL/min/1.73 m2] 87 mL /min/1.73 m2 (09/14/23 1:21 PM) 1Interpretive Data: The [facility] ACCESS high-sensitivity Troponin I (hsTNI) 99 percentile cutoffs forhealthy adults are 12 ng/L or less for females and 20 ng/L or less for males. SERIAL MEASUREMENT IS HIGHLY RECOMMENDED for the diagnosis or exclusion of Acute Coronary Syndromes(ACS). Please refer to the High-Sensitivity Troponin Algorithm 2022 for guidance. As with all markers of cardiac injury, elevations of hsTnI do not in and of themselves indicate thepresence of an ischemic mechanism. Many other disease states can be associated with elevations via mechanisms different from those that cause injury in patients with ACS. These include trauma (contusion, ablation, pacing); congestive heart failure; pulmonary embolism; kidney failure; and myocarditis. Clinical judgement is necessary to distinguish patients who have ischemic heart disease from those who do not. 2Interpretive Data: A normal D-dimer result (< or =500 ng/mL FEU) has a negative predicitive value of approximately 95% for the exclusion of acute embolism (PE) or deep vein thrombosis when there is low or moderate pretest PE probability. Radiology Reports * Exam Date Time Procedure Performing Provider Status 09/14/23 3:[address] Angio Chest Artur Chatman; Maura (Ve rified) Notes: (CT Angio Chest) Reason For Exam: pleuritic pain CT Angio Chest EXAM DESCRIPTION: CT Angio Chest 09/14/2023 INDICATION: PLEURITIC PAIN TECHNIQUE: All CT scans at this facility use at least one of these dose optimization techniques: Automated exposure control; mA and/or kV adjustment per patient size (includes targeted exams where dose is matched to clinical indication); or iterative reconstruction. CT angiography examination of the chest with thin section axial images including sagittal and coronal MPR images performed on a separate workstation under concurrent supervision. 100 cc of Isovue 370 contrast was utilized COMPARISON: Outside facility CT angiography chest examination from 07/14/2023 FINDINGS: Normal opacification of the right ventricular outflow tract, main pulmonary arteries and segmental pulmonary arteries with no evidence of pulmonary embolism. No evidence of thoracic aortic dissection. No focal infiltrate or pulmonary mass with mild scarring in the posterior aspect of the right lower lobe with mild biapical scarring. No significant emphysematous changes. No central endobronchial filling defect identified No pleural effusion or pneumothorax No mediastinal, hilar or axillary adenopathy. No pericardial effusion. No mass or adenopathy in the visualized upper abdomen. No suspicious regional osseous lesions. IMPRESSION: No evidence of pulmonary embolism No focal infiltrate or pulmonary mass with mild scarring in the right lower lobe with mild biapical scarring. JOB #: [id number] Final Signed by: Amor Trotter MD Signed (Electronic Signature): 09/14/2023 3:52 pm * Exam Date Time Procedure Performing Provider Status 09/14/23 1:26 PM XR Chest 1 View Artur Chatman; Auth (V erified) Notes: (XR Chest 1 View) Reason For Exam: cough XR Chest 1 View EXAM DESCRIPTION: XR Chest 1 View 09/14/2023 INDICATION: COUGH COMPARISON: None FINDINGS: Clear lungs with no focal infiltrate or pulmonary edema. Normal cardiomediastinal contour. No significant pleural effusion or pneumothorax. IMPRESSION: No active chest disease. JOB #: [id number] Final Signed by: Amor Trotter MD Signed (Electronic Signature): 09/14/2023 1:26 pm Vital Signs Most recent to oldest [Reference Range]: 1 2 3 Peripheral Pulse Rate [60-100 bpm] 91 bpm (09/14/23 3:46 PM) 87 bpm (09/14/23 2:47 PM) 104 bpm *HI* (09/14/23 1:02 PM) Respiratory Rate [12-24 br/min] 21 br/min (09/14/23 3:46 PM) 17 br/min (09/14/23 1:02 PM) Blood Pressure [90-140/60-90 mmHg] 124/95mmHg (09/14/23 2:47 PM) 138/95mmHg (09/14/23 1:02 PM) Weight 74.4 kg (09/14/23 12:58 PM) Weight Dosing 74.400 kg (09/14/23 12:58 PM) Height 162.5 cm (09/14/23 12:58 PM) Body Mass Index 28.18 kg/m2 (09/14/23 12:58 PM) Social History Social History Type Response Tobacco Never tobacco user, Tobacco use status unknown Tobacco Use:. Sex Hospital Discharge Instructions Patient Education 09/14/2023 15:22:36 Acute Bronchitis, Adult Acute Bronchitis, Adult Acute bronchitis is sudden inflammation of the main airways (bronchi) that come off the windpipe (trachea) in the lungs. The swelling causes the airways to get smaller and make more mucus than normal. This can make it hard to breathe and can cause coughing or noisy breathing (wheezing). Acute bronchitis may last several weeks. The cough may last longer. Allergies, asthma, and exposureto smoke may make the condition worse. What are the causes? This condition can be caused by germs and by substances that irritate the lungs, including: ??? Cold and flu viruses. The most common cause of this condition is the virus that causes the common cold. ??? Bacteria. This is less common. ??? Breathing in substances that irritate the lungs, including: ??? Smoke from cigarettes and other forms of tobacco. ??? Dust and pollen. ??? Fumes from household cleaning products, gases, or burned fuel. ??? Indoor or outdoor air pollution. What increases the risk? The following factors may make you more likely to develop this condition: ??? A weak body's defense system, also called the immune system. ??? A condition that affects your lungs and breathing, such as asthma. What are the signs or symptoms? Common symptoms of this condition include: ??? Coughing. This may bring up clear, yellow, or green mucus from your lungs (sputum). ??? Wheezing. ??? Runny or stuffy nose. ??? Having too much mucus in your lungs (chest congestion). ??? Shortness of breath. ??? Aches and pains, including sore throat or chest. How is this diagnosed? This condition is usually diagnosed based on: ??? Your symptoms and medical history. ??? A physical exam. You may also have other tests, including tests to rule out other conditions, such as pneumonia. These tests include: ??? A test of lung function. ??? Test of a mucus sample to look for the presence of bacteria. ??? Tests to check the oxygen level in your blood. ??? Blood tests. ??? Chest X-ray. How is this treated? Most cases of acute bronchitis clear up over time without treatment. Your health care provider may recommend: ??? Drinking more fluids to help thin your mucus so it is easier to cough up. ??? Taking inhaled medicine (inhaler) to improve air flow in and out of your lungs. ??? Using a vaporizer or a humidifier. These are machines that add water to the air to help you breathe better. ??? Taking a medicine that thins mucus and clears congestion (expectorant). ??? Taking a medicine that prevents or stops coughing (cough suppressant). It is not common to take an antibiotic medicine for this condition. Follow these instructions at home: ??? Take bxnf-iee-hgmhvkd and prescription medicines only as told by your health care provider. ??? Use an inhaler, vaporizer, or humidifier as told by your health care provider. ??? Take two teaspoons (10 mL) of honey at bedtime to lessen coughing at night. ??? Drink enough fluid to keep your urine pale yellow. ??? Do not use any products that contain nicotine or tobacco. These products include cigarettes, chewing tobacco, and vaping devices, such as e-cigarettes. If you need help quitting, ask your health care provider. ??? Get plenty of rest. ??? Return to your normal activities as told by your health care provider. Ask your health care provider what activities are safe for you. ??? Keep all follow-up visits. This is important. How is this prevented? To lower your risk of getting this condition again: ??? Wash your hands often with soap and water for at least 20 seconds. If soap and water are not available, use hand filament tester. ??? Avoid contact with people who have cold symptoms. ??? Try not to touch your mouth, nose, or eyes with your hands. ??? Avoid breathing in smoke or chemical fumes. Breathing smoke or chemical fumes will make your condition worse. ??? Get the flu shot every year. Contact a health care provider if: ??? Your symptoms do not improve after 2 weeks. ??? You have trouble coughing up the mucus. ??? Your cough keeps you awake at night. ??? You have a fever. Get help right away if you: ??? Cough up blood. ??? Feel pain in your chest. ??? Have severe shortness of breath. ??? Faint or keep feeling like you are going to faint. ??? Have a severe headache. ??? Have a fever or chills that get worse. These symptoms may represent a serious problem that is an emergency. Do not wait to see if the symptoms will go away. Get medical help right away. Call your local emergency services (911 in the [place] Do not drive yourself to the hospital. Summary ??? Acute bronchitis is inflammation of the main airways (bronchi) that come off the windpipe (trachea) in the lungs. The swelling causes the airways to get smaller and make more mucus than normal. ??? Drinking more fluids can help thin your mucus so it is easier to cough up. ??? Take dwar-hns-lofkfng and prescription medicines only as told by your health care provider. ??? Do not use any products that contain nicotine or tobacco. These products include cigarettes, chewing tobacco, and vaping devices, such as e-cigarettes. If you need help quitting, ask your health care provider. ??? Contact a health care provider if your symptoms do not improve after 2 weeks. This information is not intended to replace advice given to you by your health care provider. Make sure you discuss any questions you have with your health care provider. Document Revised: 05/22/2022 Document Reviewed: 06/12/2021 [employer] Patient Education ?? 2022 [employer]. 09/14/2023 15:22:32 Pleurisy Pleurisy Pleurisy, or pleuritis, is irritation and inflammation of the outer lining of the lungs (pleura). The pleura has two layers that cover both the outside of the lung and the inside of the chest wall. Most often, there is a small amount of fluid (pleural fluid) between the layers of the pleura. The fluid allows the lungs to move in and out smoothly when you breathe. Pleurisy can cause the layers of the pleura to be rough and dry and to rub together. This can make it hard to breathe or cough. Sometimes, pleurisy can be linked to pleural effusion. This is when fluid builds up between the layers. What are the causes? Common causes of this condition include: ??? A lung infection. This may be caused by bacteria or a virus. ??? Pulmonary embolism. This is a blood clot that travels to the lungs. ??? Pneumothorax. This is when air leaks into the pleural space. It can happen after an injury or trauma to the chest. ??? Heart or chest surgery. ??? A lung reaction to certain medicines or treatments. These include treatments to kill cancer cells, such as chemotherapy or radiation therapy to the chest. ??? Conditions that can cause inflammation in the lungs. These include rheumatoid arthritis, lupus,sickle cell disease, inflammatory bowel disease, pancreatitis, lung cancer, and lung tumor. In some cases, the cause of this condition is not known. What are the signs or symptoms? The main symptom of this condition is chest pain. The pain may: ??? Be on one side of your body. ??? Be sharp and stabbing. ??? Spread to your back or shoulder. It may get worse when you cough, take deep breaths, or make sudden movements. Other symptoms may include: ??? Shortness of breath. ??? Noisy breathing. This may include making high-pitched whistling sounds when you breathe out (wheezing). ??? Cough. ??? Fever. ??? Coughing up blood (hemoptysis) or mucus from your lungs (sputum). Symptoms may get worse when you lie down or lie on one side. Your symptoms may be similar to those of a heart attack or inflammation of the heart (pericarditis). How is this diagnosed? This condition may be diagnosed based on your medical history and symptoms. Your health care provider will check if you have heart or lung disease. They may also do a physical exam. During the exam, they will listen to your breathing to check for a rough, rubbing sound (friction rub) when you breathe. You may also have tests, such as: ??? Blood tests. These can be done to check for infections or diseases. They can also measure the amount of oxygen in your blood. ??? An electrocardiogram (ECG). This looks at your heart rhythm. ??? Imaging tests of your lungs. These may include a chest X-ray, ultrasound, MRI, or CT scan. ??? Thoracentesis. This is when a needle is used to remove pleural fluid for testing. How is this treated? Treatment for pleurisy depends on the cause. If it was caused by a virus, it may clear up on its own within 2 weeks. Treatment for pleurisy may include: ??? NSAIDs, such as ibuprofen. These can help relieve pain and inflammation. ??? Antibiotics. You may need these if your condition was caused by bacteria. ??? Prescription pain medicine or cough medicine. ??? Blood thinners (anticoagulants). These can treat blood clots if your condition was caused by pulmonary embolism. ??? Removal of pleural fluid or air. This can be done using a chest tube to vacuum fluid or air from the pleural space. Follow these instructions at home: Medicines ??? Take xjkj-ypb-cqrdjjk and prescription medicines only as told by your provider. ??? If you were prescribed antibiotics, take them as told by your provider. Do not stop using the antibiotic even if you start to feel better. ??? If you were prescribed medicines to remove extra fluid from your lungs (diuretics), take them as told by your provider. ??? If you are taking blood thinners: ??? Talk with your provider before you take any medicines that contain aspirin or NSAIDs. These medicines increase your risk for dangerous bleeding. ??? Take your medicine exactly as told, at the same time every day. ??? Avoid activities that could cause injury or bruising. Follow instructions about how to prevent falls. ??? Wear a medical alert bracelet or carry a card that lists what medicines you take. ??? Ask your provider if the medicine prescribed to you requires you to avoid driving or using machinery. Activity ??? Rest as told by your provider. ??? Return to your normal activities as told by your provider. Ask your provider what activities are safe for you. General instructions ??? Watch for changes in your condition. ??? Take deep breaths often, even if it is painful. This can help prevent lung infection (pneumonia) and collapse of lung tissue (atelectasis). ??? You may be given a device called an incentive spirometer to help you breathe and exercise your lungs. ??? Do not use any products that contain nicotine or tobacco. These products include cigarettes, chewing tobacco, and vaping devices, such as e-cigarettes. If you need help quitting, ask your provider. Contact a health care provider if: ??? You have pain that gets worse or happens more often. ??? Your pain does not get better with medicine. ??? You have a fever or chills. ??? Your cough or shortness of breath does not get better. ??? You cough up pus-like (purulent) fluid. ??? You cough up blood. Get help right away if: ??? You have trouble breathing with activity, and it gets worse. ??? You have shortness of breath or wheezing that gets worse. ??? You have pain that spreads into your neck, arms, or jaw. ??? You feel dizzy or faint. These symptoms may be an emergency. Get help right away. Call 911. ??? Do not wait to see if the symptoms will go away. ??? Do not drive yourself to the hospital. This information is not intended to replace advice given to you by your health care provider. Make sure you discuss any questions you have with your health care provider. Document Revised: 09/19/2022 Document Reviewed: 09/19/2022 [employer] Patient Education ?? 2022 [employer]. Physician Emergency department Note * Golden Cabrera MD: PERFORM Event Display: ED Note Physician Authored Date: [id number] MAAME KIANA Sarwat :1990 Age:33 years Sex:Female Visit Date:09/14/2023 Primary Care Physician: KEVEN PURI DNP Basic Information Time Seen: Golden Cabrera MD / 09/14/2023 12:54 Chief Complaint Patient in with complaints of back pain radiating to chest. ??Pain is worse with movement, worse with a deep breath. ??Endorses feeling lightheaded. ??On control. ??Started this morning. History Of Present Illness: Patient comes into the emerged department with??pain in the left side of the back??radiates into the chest. ??States is worse with movement??with a deep breath. ??She denies any??trauma or overuse the past several days.?? She denies??fever chills but does have a cough productive of??whitish to yellowish sputum.?? This started??this morning??about 3??to 4 hours prior to arrival. ??She denies recent??increase stress??denies leg pain leg swelling??or other problems. ??Patient is a non-smoker but is on control Review of Systems: Review of systems negative other than that stated above Physical Exam Vitals & Measurements HR:??91??(Peripheral)?? RR:??21?? BP:??124/95?? SpO2:??100%?? HT:??162.5??cm?? WT:??74.4??kg?? BMI:??28.18?? General: Alert and oriented, well nourished, no acute distress. Eye: PERRL, EOMI, normal conjunctiva. HENT: Normocephalic,??normal hearing, moist oral mucosa, no scleral icterus, . Neck: Supple, non-tender, no carotid bruits, no JVD, no lymphadenopathy. No rigidity Lungs: Clear to auscultation and percussion, non-labored respiration. Heart: Normal rate, regular rhythm, no murmur, gallop or edema. Abdomen: Soft, non-tender, non-distended, normal bowel sounds, no masses. Musculoskeletal: Normal range of motion and strength, no tenderness or swelling. Skin: Skin is warm, dry and appropriate for ethnicity, no rashes or lesions. Neurologic: Awake, alert and oriented X4, CN II-XII intact. Psychiatric: Cooperative, appropriate mood and affect. Procedure No Qualifying Data Reexamination/Reevaluation Patient was given Toradol and Tylenol which she states only helped slightly.?? Patient has remainedhemodynamically stable other than a slightly elevated heart rate??at a rate of 100-110. ??She is not hypoxic. ??There is no evidence of cardiac injury??acute infection??or pulmonary embolism.?? With the??sputum producing cough??and tachycardia patient??was put on??Zithromax for bronchitis and??Percocet??because of the pain.?? Patient will rest follow-up with leg doctor ensure improvement and return to ED for worsening or changing symptoms Assessment/Plan 1.??Pleuritis??R09.1 Ordered: Zithromax Z-Reji 250 mg oral tablet, 1 packets, Oral, Daily, Take 2 tablets on day 1 and 1 tablet days 2 through 5 with a quantity of 6., # 6 tab, 0 Refill(s), Pharmacy: [id number], 162.5, cm, 09/14/23 12:58:00 EDT, Height, 74.4, kg, 09/14/23 13:01:00 EDT, Weight Dosing ?? 2.??Bronchitis??J40 Ordered: Zithromax Z-Reji 250 mg oral tablet, 1 packets, Oral, Daily, Take 2 tablets on day 1 and 1 tablet days 2 through 5 with a quantity of 6., # 6 tab, 0 Refill(s), Pharmacy: [id number], 162.5, cm, 09/14/23 12:58:00 EDT, Height, 74.4, kg, 09/14/23 13:01:00 EDT, Weight Dosing ?? Orders: acetaminophen, 1,000 mg = 100 mL, IV Piggyback, Injection, Once, Administer over: 0.3 hr, First Dose: 09/14/23 17:00:00 EDT, Stop Date: 09/14/23 17:00:00 EDT, Physician Stop, Routine, 400 mL/hr Percocet 5 mg-325 mg oral tablet, 1 tab, Oral, every 4 hr, PRN as needed for pain, # 12 tab, 0 Refill(s), Pharmacy: [id number], 162.5, cm, 09/14/23 12:58:00 EDT, Height, 74.4, kg, 09/14/23 13:01:00 EDT, Weight Dosing Discharge Patient, 09/14/23 16:17:00 EDT, Home Independently An opioid medication was prescribed today to treat the patient's acute pain. Non-pharmacologic and non-controlled alternative medication options were discussed today. The use of an opioid was deemed appropriate to provide the patient with adequate pain relief for their acute pain issues. A [place] Board[place] approved risk assessment tool was utilized, see nursing notes. The patient's risk scorewas taken into account when determining an appropriate plan for pain control. The risk of addictionwas reviewed with the patient today. The informed consent and agreement for opioid therapy was signed with the patient, outlining the risks associated with opioid use. The prescription provided repres ents the lowest effective dose of opioid and the quantity was prescirbed for the fewest number of days. The [place] Prescription Drug Monitoring Program was queried prior to prescribing an opioid today and the results of the query reviewed.?? Patient Education Acute Bronchitis, Adult Pleurisy Medication Reconciliation New Prescription azithromycin (Zithromax Z-Reji 250 mg oral tablet)1 packets Oral (given by mouth) every day for 5 Days. Take 2 tablets on day 1 and 1 tablet days 2 through 5 with a quantity of 6.. Refills: 0. ?? oxyCODONE-acetaminophen (Percocet 5 mg-325 mg oral tablet)1 tab Oral (given by mouth) every 4 hoursas needed as needed for pain. Refills: 0. ?? Unchanged albuterol (albuterol 1.25 mg/3 mL (0.042%) inhalation solution)90 mL, 0 Refill(s), INHALE ONE VIAL VIA NEBULIZER FOUR TIMES A DAY NEEDED FOR SHORTNESS OF BREATH OR WHEEZING. ?? albuterol (Ventolin HFA 90 mcg/inh inhalation aerosol)18 g, INHALE 2 PUFFS BY MOUTH EVERY 6 HOURS NEEDED FOR SHORTNESS OF BREATH OR WHEEZING. ?? amitriptyline (amitriptyline 25 mg oral tablet)90 EA, 0 Refill(s), TAKE ONE TABLET BY MOUTH AT BEDTIME. ?? amoxicillin (amoxicillin 400 mg/5 mL oral liquid)200 mL, 0 Refill(s), TAKE 12.5ML BY MOUTH THREE TIMES A DAY FOR 5 DAYS - DISCARD ANY UNUSED PORTION. ?? benzonatate (benzonatate 100 mg oral capsule)20 EA, 0 Refill(s). ?? cefdinir (cefdinir 250 mg/5 mL oral liquid)100 mL, 0 Refill(s), TAKE 6ML BY MOUTH EVERY 12 HOURS FOR 7 DAYS - DISCARD ANY UNUSED PORTION. ?? cephalexin (cephalexin 500 mg oral capsule)14 EA, 0 Refill(s). ?? dilTIAZem (Cartia XT 120 mg/24 hours oral capsule, extended release)90 EA, 0 Refill(s), TAKE ONE CAPSULE BY MOUTH EVERY DAY. ?? dupilumab (Dupixent Pre-filled Pen 300 mg/2 mL subcutaneous solution)300 Milligrams Subcutaneous (under the skin) every other week. rotate injection sites. ?? eletriptan (eletriptan 20 mg oral tablet)6 EA, 0 Refill(s), TAKE ONE TABLET BY MOUTH ONCE NEEDEDFOR MIGRAINE HEADACHE; MAY REPEAT DOSE IN 2 HOURS. ?? eletriptan (Relpax 20 mg oral tablet)1 tab Oral (given by mouth) every day as needed as needed for migraine headache. may repeat dose once in 2 hours. Refills: 1. ?? fluconazole (fluconazole 150 mg oral tablet)2 EA, 0 Refill(s), TAKE ONE TALBET BY MOUTH AT ONSET OFSYMPTOMS CONCERNING FOR YEAST. CAN REPEAT SINGLE DOSE IN 72 HOURS IF SYMPTOMS HAVE NOT COMPLETELY RESOL. ?? fluticasone nasal (fluticasone 50 mcg/inh nasal spray)16 g, 0 Refill(s), USE 1 SPRAY IN EACH NOSTRIL ONCE DAILY. ?? fluticasone/umeclidinium/vilanterol (Trelegy Ellipta 200 mcg-62.5 mcg-25 mcg/inh inhalation powder) ?? gabapentin (gabapentin 100 mg oral capsule)1 Capsules Oral (given by mouth) 3 times a day. Refills:6. ?? levonorgestrel-ethinyl estradiol (Vienva 100 mcg-20 mcg oral tablet)84 EA, 0 Refill(s), TAKE ONE TABLET BY MOUTH EVERY DAY CONTINUOUSLY (SKIP PLACEBO PILLS AND BEGIN THE NEXT PACK RIGHT AWAY). ?? LORazepam (LORazepam 0.5 mg oral tablet)2 EA, 0 Refill(s). ?? metoprolol (metoprolol succinate 50 mg oral tablet, extended release)1 tab Oral (given by mouth) 2 times a day for 90 Days. Refills: 1. ?? montelukast (montelukast 10 mg oral tablet)1 tab Oral (given by mouth) every day. ?? naproxen (naproxen 500 mg oral tablet)1 tab Oral (given by mouth) As Directed as needed as needed for pain. Take 1 tablet every 8 hours as needed for headache. Refills: 1. ?? Other Prescription ([facility])180 EA, 0 Refill(s), TAKE ONE TABLET BY MOUTH TWICE A DAY. ?? predniSONE (predniSONE 10 mg oral tablet)18 EA, 0 Refill(s), TAKE 3 TABLETS DAILY FOR 3 DAYS; THEN 2 TABLETS DAILY FOR 3 DAYS; THEN 1 TABLET DAILY FOR 3 DAYS THEN STOP. ?? predniSONE (predniSONE 20 mg oral tablet)10 EA, 0 Refill(s). ?? SUMAtriptan (SUMAtriptan 50 mg oral tablet)9 EA, 0 Refill(s), TAKE ONE TABLET BY MOUTH ONCE NEEDED FOR MIGRAINE HEADACHE; MAY REPEAT DOSE AFTER 2 HOURS UP TO A MAX OF 200MG IN 24 HOURS. Problem List/Past Medical History Ongoing Anemia Anxiety Asthma Bilateral sacroiliitis Cervical spondylosis Insomnia Menstrual abnormality Migraine headache with aura Migraine with aura, not intractable, without status migrainosus Neck pain Neuroforaminal stenosis of cervical spine Paresthesias POTS (postural orthostatic tachycardia syndrome) Sleep apnea Historical No qualifying data Medication Administration Given Toradol, 15 mg, IV Push Allergies Banana [place] Symbicort vancomycin Cats??(Unknown) Dogs??(Unknown) Dust??(Unknown) Tape budesonide-formoterol??(Unknown) formoterol??(Unknown) formoterol-mometasone??(Unknown) Social History Alcohol Never Electronic Cigarette/Vaping Electronic Cigarette Use: Never, Unknown/not obtained. Tobacco Never tobacco user, Tobacco use status unknown Tobacco Use:. Family History Hypertension: Father. Diagnostic Results CT Angio Chest 09/14/2023 15:54 EDT XR Chest 1 View 09/14/2023 13:[address] Angio Chest ?? 09/14/23 15:52:29 EXAM DESCRIPTION: CT Angio Chest ?? 09/14/2023 ?? INDICATION: PLEURITIC PAIN ?? TECHNIQUE: All CT scans at this facility use at least one of these dose optimization techniques: Automated exposure control; mA and/or kV adjustment per patient size (includes targeted exams where dose is matched to clinical indication); or iterative reconstruction. ?? CT angiography examination of the chest with thin section axial images including sagittal and coronal MPR images performed on a separate workstation under concurrent supervision. ?? 100 cc of Isovue 370 contrast was utilized ?? COMPARISON: Outside facility CT angiography chest examination from 07/14/2023 ?? FINDINGS: Normal opacification of the right ventricular outflow tract, main pulmonary arteries and segmental pulmonary arteries with no evidence of pulmonary embolism. No evidence of thoracic aortic dissection. ?? No focal infiltrate or pulmonary mass with mild scarring in the posterior aspect of the right lower lobe with mild biapical scarring. No significant emphysematous changes. No central endobronchial filling defect identified ?? No pleural effusion or pneumothorax ?? No mediastinal, hilar or axillary adenopathy. No pericardial effusion. ?? No mass or adenopathy in the visualized upper abdomen. ?? No suspicious regional osseous lesions. ?? IMPRESSION: No evidence of pulmonary embolism ?? No focal infiltrate or pulmonary mass with mild scarring in the right lower lobe with mild biapical scarring. ? JOB #: [id number] Electronically Signed By: ?? Signed By: Amor Trotter MD ?? XR Chest 1 View ?? 09/14/23 13:26:58 EXAM DESCRIPTION: XR Chest 1 View ?? 09/14/2023 ?? INDICATION: COUGH ?? COMPARISON: None ?? FINDINGS: Clear lungs with no focal infiltrate or pulmonary edema. ?? Normal cardiomediastinal contour. ?? No significant pleural effusion or pneumothorax. ?? IMPRESSION: No active chest disease. ? JOB #: [id number] Electronically Signed By: ?? Signed By: Amor Trotter MD ECG Sinus tachycardia at??95 without acute changes??no S1 Q 3 or T3 Diagnostic Study Interpretation: Chest x-ray normal. ??CT??angio of chest according to radiology negative for any acute process Lab Results CBC and Differential?? LATEST RESULTS?? HISTORICAL RESULTS?? WBC?? 09/14/23 13:13?? 6.1?? 01/23/23?? 5.2?? RBC?? 09/14/23 13:13?? 5.17?? 01/23/23?? 5.10?? Hgb?? 09/14/23 13:13?? 12.4?? 01/23/23?? 12.0?? Hct?? 09/14/23 13:13?? 37.8?? 01/23/23?? 37.2?? MCV?? 09/14/23 13:13?? 73.1 ??Low?? 01/23/23?? 73.0 ??Low?? MCH?? 09/14/23 13:13?? 24.0 ??Low?? 01/23/23?? 23.5 ??Low?? MCHC?? 09/14/23 13:13?? 32.8?? 01/23/23?? 32.1?? RDW-CV?? 09/14/23 13:13?? 16.4 ??High?? 01/23/23?? 16.8 ??High?? Platelets?? 09/14/23 13:13?? 218?? 01/23/23?? 252?? MPV?? 09/14/23 13:13?? 8.7?? 01/23/23?? 8.4?? Neutro Auto?? 09/14/23 13:13?? 62.2?? 01/23/23?? 64.6?? Lymph Auto?? 09/14/23 13:13?? 30.7?? 01/23/23?? 24.8?? [place] Auto?? 09/14/23 13:13?? 5.5?? 01/23/23?? 9.3?? Eos, Auto?? 09/14/23 13:13?? 1.00?? 01/23/23?? 0.70?? Basophil Auto?? 09/14/23 13:13?? 0.6?? 01/23/23?? 0.6?? Neutro Absolute?? 09/14/23 13:13?? 3.8?? 01/23/23?? 3.3?? Lymph Absolute?? 09/14/23 13:13?? 1.9?? 01/23/23?? 1.3?? [place] Absolute?? 09/14/23 13:13?? 0.3?? 01/23/23?? 0.5?? Eos Absolute?? 09/14/23 13:13?? 0.1?? 01/23/23?? 0.0?? Baso Absolute?? 09/14/23 13:13?? 0.0?? 01/23/23?? 0.00?? RBC Morph?? 09/14/23 13:13?? Abnormal Abnormal?? 01/23/23?? Abnormal Abnormal?? Acanthocyte?? 09/14/23 13:13?? 1+ Abnormal? Hypochromia?? 09/14/23 13:13?? 1+ Abnormal?? 01/23/23?? 1+ Abnormal?? Microcyte?? 09/14/23 13:13?? 1+ Abnormal?? 01/23/23?? 2+ Abnormal?? Plt Estimation?? 09/14/23 13:13?? Normal?? 01/23/23?? Normal?? Slide Review?? 09/14/23 13:13?? Morph Only?? 01/23/23?? Morph Only? Coagulation?? LATEST RESULTS?? HISTORICAL RESULTS?? D Dimer, (Quant.)?? 09/14/23 13:21?? 119?? 01/23/23?? 683 ??High? Routine Chemistry?? LATEST RESULTS?? HISTORICAL RESULTS?? Sodium Level?? 09/14/23 13:21?? 139?? 01/23/23?? 136?? Potassium Level?? 09/14/23 13:21?? 3.2 ??Low?? 01/23/23?? 3.9?? Chloride Level?? 09/14/23 13:21?? 104?? 01/23/23?? 103?? CO2?? 09/14/23 13:21?? 26?? 01/23/23?? 26?? Alk Phos?? 09/14/23 13:21?? 59?? 01/23/23?? 47?? AST?? 09/14/23 13:21?? 38?? 01/23/23?? 17?? ALT?? 09/14/23 13:21?? 48?? 01/23/23?? 13?? BUN?? 09/14/23 13:21?? 5 ??Low?? 01/23/23?? 6 ??Low?? Glucose Level?? 09/14/23 13:21?? 99?? 01/23/23?? 91?? Creatinine Level?? 09/14/23 13:21?? 0.90?? 01/23/23?? 0.90?? BUN/Creat Ratio?? 09/14/23 13:21?? 5.6 ??Low?? 01/23/23?? 6.7 ??Low?? eGFR CKD-EPI?? 09/14/23 13:21?? 87?? 01/23/23?? 87?? Calcium Level?? 09/14/23 13:21?? 9.5?? 01/23/23?? 9.0?? Protein Total?? 09/14/23 13:21?? 7.5?? 01/23/23?? 7.2?? Albumin Level?? 09/14/23 13:21?? 4.6?? 01/23/23?? 4.3?? Globulin?? 09/14/23 13:21?? 2.9?? 01/23/23?? 2.9?? A/G Ratio?? 09/14/23 13:21?? 1.6?? 01/23/23?? 1.5?? Bilirubin Total?? 09/14/23 13:21?? 0.3?? 01/23/23?? 0.3?? Anion Gap?? 09/14/23 13:21?? 9.0?? 01/23/23?? 7.0?? Magnesium Level?? 09/14/23 13:21?? 2.1? Osmolality?? 09/14/23 13:21?? 275?? 01/23/23?? 269 ??Low? Cardiac Isoenzymes?? LATEST RESULTS?? Troponin-I HS?? 09/14/23 13:21?? <2? Electronically Signed on 09/14/2023 17:32 EDT Golden Cabrera MD Emergency department Discharge instructions * Golden Cabrera MD: PERFORM Event Display: ED Discharge Information Authored Date: [id number] KIANA ISABEL I :1990 Age:33 years Sex:Female Visit Date:09/14/2023 Primary Care Physician: KEVEN PURI DNP Discharge Instructions We would like to thank you for allowing us to assist you with your healthcare needs. The following includes patient education materials and information regarding your injury/illness. Diagnosis from Today's Visit Pleuritis Bronchitis Discharge Vitals Heart Rate??(Peripheral) 91 Respiratory Rate?? 21 Blood Pressure?? 124/95?? SpO2?? 100% Height?? 63.98 in (162.5 cm) Weight?? 164.05 lb (74.4 kg) BMI?? 28.18 Allergies Banana [place] Symbicort vancomycin Cats??(Unknown) Dogs??(Unknown) Dust??(Unknown) Tape budesonide-formoterol??(Unknown) formoterol??(Unknown) formoterol-mometasone??(Unknown) What to Do Next Instructions from Your Care Team Zithromax as prescribed. ??Xrjx-lyn-amndqua medicine as directed for pain. ??Percocet as prescribedfor increased pain.?? Follow-up with regular doctor or return to ED for lack of improvement or worsening or changing symptoms Upcoming Scheduled Appointments Thursday 2:30 PM EDT ?? With: Kelsie Orozco DO Where: [facility] Status: Confirmed Thursday 8:00 PM EDT ?? Where: [facility] Sleep Lab Status: Confirmed 2023 8:00 AM EDT ?? With: Mario Gomez MD Where: [facility] Neurology Status: Confirmed You were treated today on an emergency basis; it may be gupta to contact your primary care provider to notify them of your visit today. You may have been referred to your regular doctor or a specialist, please follow up as instructed. If your condition worsens or you can't get in to see the doctor, contact the Emergency Department. Medications What How Much When Why Instructions Next Dose New azithromycin (Zithromax Z-Reji 250 mg oral tablet) 1 packets Oral (given by mouth) Every day Pleuritis Bronchitis Duration: 5 Days Take 2 tablets on day 1 and 1 tablet days 2 through 5 with a quantity of 6. ?? Pickup at [facility] New oxyCODONE-acetaminophen (Percocet 5 mg-325 mg oral tablet) 1 tab Oral (given by mouth) Every 4 hours as needed for as needed for pain Pickup at [facility] Unchanged albuterol (albuterol 1.25 mg/ 3 mL (0.042%) inhalation solution) 90 mL, 0 Refill(s), INHALE ONE VIAL VIA NEBULIZER FOUR TIMES A DAY NEEDED FOR SHORTNESS OF BREATH OR WHEEZING ?? Unchanged albuterol (Ventolin HFA 90 mcg/ inh inhalation aerosol) 18 g, INHALE 2 PUFFS BY MOUTH EVERY 6 HOURS NEEDED FOR SHORTNESS OF BREATH OR WHEEZING ?? Unchanged amitriptyline (amitriptyline 25 mg oral tablet) 90 EA, 0 Refill(s), TAKE ONE TABLET BY MOUTH AT BEDTIME ?? Unchanged amoxicillin (amoxicillin 400 mg/ 5 mL oral liquid) 200 mL, 0 Refill(s), TAKE 12.5ML BY MOUTH THREE TIMES A DAY FOR 5 DAYS - DISCARD ANY UNUSED PORTION?? Unchanged benzonatate (benzonatate 100 mg oral capsule) 20 EA, 0 Refill(s) ?? Unchanged cefdinir (cefdinir 250 mg/ 5 mL oral liquid) 100 mL, 0 Refill(s), TAKE 6ML BY MOUTH EVERY 12 HOURS FOR 7 DAYS - DISCARD ANY UNUSED PORTION ?? Unchanged cephalexin (cephalexin 500 mg oral capsule) 14 EA, 0 Refill(s) ?? Unchanged dilTIAZem (Cartia XT 120 mg/ 24 hours oral capsule, extended release) 90 EA, 0 Refill(s), TAKE ONE CAPSULE BY MOUTH EVERY DAY ?? Unchanged dupilumab (Dupixent Pre-filled Pen 300 mg/ 2 mL subcutaneous solution) 300 Milligrams Subcutaneous (under the skin) Every other week rotate injection sites ?? Unchanged eletriptan (eletriptan 20 mg oral tablet) 6 EA, 0 Refill(s), TAKE ONE TABLET BY MOUTH ONCE NEEDED FOR MIGRAINE HEADACHE; MAY REPEAT DOSE IN 2 HOURS ?? Unchanged eletriptan (Relpax 20 mg oral tablet) 1 tab Oral (given by mouth) Every day as needed for as needed for migraine headache Migraines may repeat dose once in 2 hours ?? Unchanged fluconazole (fluconazole 150 mg oral tablet) 2 EA, 0 Refill(s), TAKE ONE TALBET BY MOUTH AT ONSET OF SYMPTOMS CONCERNING FOR YEAST. CAN REPEAT SINGLE DOSE IN 72 HOURS IF SYMPTOMS HAVE NOT COMPLETELY RESOL ?? Unchanged fluticasone nasal (fluticasone 50 mcg/ inh nasal spray) 16 g, 0 Refill(s), USE 1 SPRAY IN EACH NOSTRIL ONCE DAILY ?? Unchanged fluticasone/ umeclidinium/ vilanterol (Trelegy Ellipta 200 mcg-62.5 mcg-25 mcg/ inh inhalation powder) Unchanged gabapentin (gabapentin 100 mg oral capsule) 1 Capsules Oral (given by mouth) 3 times a day Migraine with aura [place] Unchanged levonorgestrel-ethinyl estradiol (Vienva 100 mcg-20 mcg oral tablet) 84 EA, 0 Refill(s), TAKE ONE TABLET BY MOUTH EVERY DAY CONTINUOUSLY (SKIP PLACEBO PILLS AND BEGIN THE NEXT PACK RIGHT AWAY) ?? Unchanged LORazepam (LORazepam 0.5 mg oral tablet) 2 EA, 0 Refill(s) ?? Unchanged metoprolol (metoprolol succinate 50 mg oral tablet, extended release) 1 tab Oral (given by mouth) 2 times a day POTS (postural orthostatic tachycardia syndrome) Migraines Duration: 90 Days Unchanged montelukast (montelukast 10 mg oral tablet) 1 tab Oral (given by mouth) Every day Unchanged naproxen (naproxen 500 mg oral tablet) 1 tab Oral (given by mouth) As Directed as needed for as needed for pain Migraine with visual aura Migraine with aura POTS (postural orthostatic tachycardia syndrome) Take 1 tablet every 8 hours as needed for headache ?? Unchanged Other Prescription ([facility]) 180 EA, 0 Refill(s), TAKE ONE TABLET BY MOUTH TWICE A DAY ?? Unchanged predniSONE (predniSONE 10 mg oral tablet) 18 EA, 0 Refill(s), TAKE 3 TABLETS DAILY FOR 3 DAYS; THEN 2 TABLETS DAILY FOR 3 DAYS; THEN 1 TABLETDAILY FOR 3 DAYS THEN STOP ?? Unchanged predniSONE (predniSONE 20 mg oral tablet) 10 EA, 0 Refill(s) ?? Unchanged SUMAtriptan (SUMAtriptan 50 mg oral tablet) 9 EA, 0 Refill(s), TAKE ONE TABLET BY MOUTH ONCE NEEDED FOR MIGRAINE HEADACHE; MAY REPEAT DOSE AFTER 2 HOURS UP TO A MAX OF 200MG IN 24 HOURS ?? Pharmacy Information [id number]: [address] [place], [place] [id number] [phone] Education Materials Acute Bronchitis, Adult Acute bronchitis is sudden inflammation of the main airways (bronchi) that come off the windpipe (trachea) in the lungs. The swelling causes the airways to get smaller and make more mucus than normal. This can make it hard to breathe and can cause coughing or noisy breathing (wheezing). Acute bronchitis may last several weeks. The cough may last longer. Allergies, asthma, and exposureto smoke may make the condition worse. What are the causes? This condition can be caused by germs and by substances that irritate the lungs, including: ? Cold and flu viruses. The most common cause of this condition is the virus that causes the common cold. ? Bacteria. This is less common. ? Breathing in substances that irritate the lungs, including: ? Smoke from cigarettes and other forms of tobacco. ? Dust and pollen. ? Fumes from household cleaning products, gases, or burned fuel. ? Indoor or outdoor air pollution. What increases the risk? The following factors may make you more likely to develop this condition: ? A weak body's defense system, also called the immune system. ? A condition that affects your lungs and breathing, such as asthma. What are the signs or symptoms? Common symptoms of this condition include: ? Coughing. This may bring up clear, yellow, or green mucus from your lungs (sputum). ? Wheezing. ? Runny or stuffy nose. ? Having too much mucus in your lungs (chest congestion). ? Shortness of breath. ? Aches and pains, including sore throat or chest. How is this diagnosed? This condition is usually diagnosed based on: ? Your symptoms and medical history. ? A physical exam. You may also have other tests, including tests to rule out other conditions, such as pneumonia. These tests include: ? A test of lung function. ? Test of a mucus sample to look for the presence of bacteria. ? Tests to check the oxygen level in your blood. ? Blood tests. ? Chest X-ray. How is this treated? Most cases of acute bronchitis clear up over time without treatment. Your health care provider may recommend: ? Drinking more fluids to help thin your mucus so it is easier to cough up. ? Taking inhaled medicine (inhaler) to improve air flow in and out of your lungs. ? Using a vaporizer or a humidifier. These are machines that add water to the air to help you breathebetter. ? Taking a medicine that thins mucus and clears congestion (expectorant). ? Taking a medicine that prevents or stops coughing (cough suppressant). It is not common to take an antibiotic medicine for this condition. Follow these instructions at home: ? Take ebtp-myc-xiisdod and prescription medicines only as told by your health care provider. ? Use an inhaler, vaporizer, or humidifier as told by your health care provider. ? Take two teaspoons (10 mL) of honey at bedtime to lessen coughing at night. ? Drink enough fluid to keep your urine pale yellow. ? Do not use any products that contain nicotine or tobacco. These products include cigarettes, chewing tobacco, and vaping devices, such as e-cigarettes. If you need help quitting, ask your health careprovider. ? Get plenty of rest. ? Return to your normal activities as told by your health care provider. Ask your health care provider what activities are safe for you. ? Keep all follow-up visits. This is important. How is this prevented? To lower your risk of getting this condition again: ? Wash your hands often with soap and water for at least 20 seconds. If soap and water are not available, use hand filament tester. ? Avoid contact with people who have cold symptoms. ? Try not to touch your mouth, nose, or eyes with your hands. ? Avoid breathing in smoke or chemical fumes. Breathing smoke or chemical fumes will make your condition worse. ? Get the flu shot every year. Contact a health care provider if: ? Your symptoms do not improve after 2 weeks. ? You have trouble coughing up the mucus. ? Your cough keeps you awake at night. ? You have a fever. Get help right away if you: ? Cough up blood. ? Feel pain in your chest. ? Have severe shortness of breath. ? Faint or keep feeling like you are going to faint. ? Have a severe headache. ? Have a fever or chills that get worse. These symptoms may represent a serious problem that is an emergency. Do not wait to see if the symptoms will go away. Get medical help right away. Call your local emergency services (911 in the [place] Do not drive yourself to the hospital. Summary ? Acute bronchitis is inflammation of the main airways (bronchi) that come off the windpipe (trachea)in the lungs. The swelling causes the airways to get smaller and make more mucus than normal. ? Drinking more fluids can help thin your mucus so it is easier to cough up. ? Take prsr-lbb-giiglds and prescription medicines only as told by your health care provider. ? Do not use any products that contain nicotine or tobacco. These products include cigarettes, chewing tobacco, and vaping devices, such as e-cigarettes. If you need help quitting, ask your health careprovider. ? Contact a health care provider if your symptoms do not improve after 2 weeks. This information is not intended to replace advice given to you by your health care provider. Make sure you discuss any questions you have with your health care provider. Document Revised: 05/22/2022 Document Reviewed: 06/12/2021 [employer] Patient Education ?? 2022 [employer] Pleurisy Pleurisy, or pleuritis, is irritation and inflammation of the outer lining of the lungs (pleura). The pleura has two layers that cover both the outside of the lung and the inside of the chest wall. Most often, there is a small amount of fluid (pleural fluid) between the layers of the pleura. The fluid allows the lungs to move in and out smoothly when you breathe. Pleurisy can cause the layers of the pleura to be rough and dry and to rub together. This can make it hard to breathe or cough. Sometimes, pleurisy can be linked to pleural effusion. This is when fluid builds up between the layers. What are the causes? Common causes of this condition include: ? A lung infection. This may be caused by bacteria or a virus. ? Pulmonary embolism. This is a blood clot that travels to the lungs. ? Pneumothorax. This is when air leaks into the pleural space. It can happen after an injury or trauma to the chest. ? Heart or chest surgery. ? A lung reaction to certain medicines or treatments. These include treatments to kill cancer cells, such as chemotherapy or radiation therapy to the chest. ? Conditions that can cause inflammation in the lungs. These include rheumatoid arthritis, lupus, sickle cell disease, inflammatory bowel disease, pancreatitis, lung cancer, and lung tumor. In some cases, the cause of this condition is not known. What are the signs or symptoms? The main symptom of this condition is chest pain. The pain may: ? Be on one side of your body. ? Be sharp and stabbing. ? Spread to your back or shoulder. It may get worse when you cough, take deep breaths, or make suddenmovements. Other symptoms may include: ? Shortness of breath. ? Noisy breathing. This may include making high-pitched whistling sounds when you breathe out (wheezing). ? Cough. ? Fever. ? Coughing up blood (hemoptysis) or mucus from your lungs (sputum). Symptoms may get worse when you lie down or lie on one side. Your symptoms may be similar to those of a heart attack or inflammation of the heart (pericarditis). How is this diagnosed? This condition may be diagnosed based on your medical history and symptoms. Your health care provider will check if you have heart or lung disease. They may also do a physical exam. During the exam, they will listen to your breathing to check for a rough, rubbing sound (friction rub) when you breathe. You may also have tests, such as: ? Blood tests. These can be done to check for infections or diseases. They can also measure the amount of oxygen in your blood. ? An electrocardiogram (ECG). This looks at your heart rhythm. ? Imaging tests of your lungs. These may include a chest X-ray, ultrasound, MRI, or CT scan. ? Thoracentesis. This is when a needle is used to remove pleural fluid for testing. How is this treated? Treatment for pleurisy depends on the cause. If it was caused by a virus, it may clear up on its own within 2 weeks. Treatment for pleurisy may include: ? NSAIDs, such as ibuprofen. These can help relieve pain and inflammation. ? Antibiotics. You may need these if your condition was caused by bacteria. ? Prescription pain medicine or cough medicine. ? Blood thinners (anticoagulants). These can treat blood clots if your condition was caused by pulmonary embolism. ? Removal of pleural fluid or air. This can be done using a chest tube to vacuum fluid or air from the pleural space. Follow these instructions at home: Medicines ? Take jkta-nto-oyomuiu and prescription medicines only as told by your provider. ? If you were prescribed antibiotics, take them as told by your provider. Do not stop using the antibiotic even if you start to feel better. ? If you were prescribed medicines to remove extra fluid from your lungs (diuretics), take them as told by your provider. ? If you are taking blood thinners: ? Talk with your provider before you take any medicines that contain aspirin or NSAIDs. These medicines increase your risk for dangerous bleeding. ? Take your medicine exactly as told, at the same time every day. ? Avoid activities that could cause injury or bruising. Follow instructions about how to prevent falls. ? Wear a medical alert bracelet or carry a card that lists what medicines you take. ? Ask your provider if the medicine prescribed to you requires you to avoid driving or using machinery. Activity ? Rest as told by your provider. ? Return to your normal activities as told by your provider. Ask your provider what activities are safe for you. General instructions ? Watch for changes in your condition. ? Take deep breaths often, even if it is painful. This can help prevent lung infection (pneumonia) and collapse of lung tissue (atelectasis). ? You may be given a device called an incentive spirometer to help you breathe and exercise your lungs. ? Do not use any products that contain nicotine or tobacco. These products include cigarettes, chewing tobacco, and vaping devices, such as e-cigarettes. If you need help quitting, ask your provider. Contact a health care provider if: ? You have pain that gets worse or happens more often. ? Your pain does not get better with medicine. ? You have a fever or chills. ? Your cough or shortness of breath does not get better. ? You cough up pus-like (purulent) fluid. ? You cough up blood. Get help right away if: ? You have trouble breathing with activity, and it gets worse. ? You have shortness of breath or wheezing that gets worse. ? You have pain that spreads into your neck, arms, or jaw. ? You feel dizzy or faint. These symptoms may be an emergency. Get help right away. Call 911. ? Do not wait to see if the symptoms will go away. ? Do not drive yourself to the hospital. This information is not intended to replace advice given to you by your health care provider. Make sure you discuss any questions you have with your health care provider. Document Revised: 09/19/2022 Document Reviewed: 09/19/2022 [employer] Patient Education ?? 2022 [employer] Tests Performed Radiology CT Angio Chest 09/14/2023 15:54 EDT XR Chest 1 View 09/14/2023 13:29 EDT Medications and Immunizations Administered Given Toradol, 15 mg, IV Push Lab Test Name Test Result Date/Time WBC 6.1 K/mcL 09/14/2023 13:13 EDT RBC 5.17 Million/mcL 09/14/2023 13:13 EDT Hgb 12.4 g/dL 09/14/2023 13:13 EDT Hct 37.8 % 09/14/2023 13:13 EDT MCV 73.1 fL 09/14/2023 13:13 EDT MCH 24.0 pg 09/14/2023 13:13 EDT MCHC 32.8 g/dL 09/14/2023 13:13 EDT RDW-CV 16.4 % 09/14/2023 13:13 EDT Platelets 218 K/mcL 09/14/2023 13:13 EDT MPV 8.7 fL 09/14/2023 13:13 EDT Neutro Auto 62.2 % 09/14/2023 13:13 EDT Lymph Auto 30.7 % 09/14/2023 13:13 EDT [place] Auto 5.5 % 09/14/2023 13:13 EDT Eos, Auto 1.00 % 09/14/2023 13:13 EDT Basophil Auto 0.6 % 09/14/2023 13:13 EDT Neutro Absolute 3.8 K/mcL 09/14/2023 13:13 EDT Lymph Absolute 1.9 K/mcL 09/14/2023 13:13 EDT [place] Absolute 0.3 K/mcL 09/14/2023 13:13 EDT Eos Absolute 0.1 K/mcL 09/14/2023 13:13 EDT Baso Absolute 0.0 K/mcL 09/14/2023 13:13 EDT RBC Morph Abnormal 09/14/2023 13:13 EDT Acanthocyte 1+ 09/14/2023 13:13 EDT Hypochromia 1+ 09/14/2023 13:13 EDT Microcyte 1+ 09/14/2023 13:13 EDT Plt Estimation Normal 09/14/2023 13:13 EDT Slide Review Morph Only 09/14/2023 13:13 EDT D Dimer, (Quant.) 119 ng(FEU)/mL 09/14/2023 13:21 EDT Sodium Level 139 mmol/L 09/14/2023 13:21 EDT Potassium Level 3.2 mmol/L 09/14/2023 13:21 EDT Chloride Level 104 mmol/L 09/14/2023 13:21 EDT CO2 26 mmol/L 09/14/2023 13:21 EDT Alk Phos 59 IntlUnit/L 09/14/2023 13:21 EDT AST 38 IntlUnit/L 09/14/2023 13:21 EDT ALT 48 IntlUnit/L 09/14/2023 13:21 EDT BUN 5 mg/dL 09/14/2023 13:21 EDT Glucose Level 99 mg/dL 09/14/2023 13:21 EDT Creatinine Level 0.90 mg/dL 09/14/2023 13:21 EDT BUN/Creat Ratio 5.6 09/14/2023 13:21 EDT eGFR CKD-EPI 87 mL/min/1.73 m2 09/14/2023 13:21 EDT Calcium Level 9.5 mg/dL 09/14/2023 13:21 EDT Protein Total 7.5 g/dL 09/14/2023 13:21 EDT Albumin Level 4.6 g/dL 09/14/2023 13:21 EDT Globulin 2.9 g/dL 09/14/2023 13:21 EDT A/G Ratio 1.6 g/dL 09/14/2023 13:21 EDT Bilirubin Total 0.3 mg/dL 09/14/2023 13:21 EDT Anion Gap 9.0 09/14/2023 13:21 EDT Magnesium Level 2.1 mg/dL 09/14/2023 13:21 EDT Osmolality 275 mOsm/kg 09/14/2023 13:21 EDT Troponin-I HS <2 ng/L 09/14/2023 13:21 EDT Patient/[employer] Signature Patient Name:KIANA ISABEL I I have received this information and my questions have been answered. Patient/[employer] Name: Patient/[employer] Signature: Relationship to Patient: Witness Name/Signature: Date: Electronically Signed on: 09/14/2023 16:22 EDTSigned by:ALANA Patient Care team information Care Team Personnel Name: KEVEN PURI DNP Position: No Access Member Role: Primary Care Physician Address: Address: [address] Care Team Related Persons Name: JOAQUIM MCCOY Address: [address], [place] [id number] [facility] Name: JENIFFER GALLEGOS Name: MERLE JARRETT Address: Home [address] [place] [address]
--- OUTSIDE RECORDS SUMMARY | 2023-10-31 10:21 | XMS_ITS | Continuity of Care Document ---
Author Organization [facility] Ambulatory Clinics Address [address] [place] [address] Care Team Providers Care Welding Foreman Name Role Phone Maria CHieu hurtado Elvira Primary Care Physician [phone] Encounter [facility] NBR [id number] Date(s): 10/02/22 - 10/02/22 [facility] Ambulatory Clinics [address], [place] [address] Encounter Diagnosis Migraine with aura, not intractable, without status migrainosus(Discharge Diagnosis) - 10/02/22 Numbness(Discharge Diagnosis) - 10/02/22 Tingling(Discharge Diagnosis) - 10/02/22 Discharge Disposition: Home or Self Care Attending Physician: Mario Gomez MD Referring Physician: WALT Mcdowell Allergies, Adverse Reactions, Alerts Substance Reaction Severity Status vancomycin Mild Active formoterol Unknown Unknown Active budesonide-formoterol Unknown Unknown Active Symbicort Mild Active formoterol-mometasone Unknown Unknown Active Cats Unknown Unknown Active Dogs Unknown Unknown Active Tape Unknown Active Banana Mild Active Gentry Mild Active Dust Unknown Unknown Active Assessment and Plan Future Appointments Future Scheduled Tests Radiology* MRI Brain w/ + w/o Contrast 10/09/22 Functional Status 10/02/22 Living Environment Home Environment No qualifying data available Lives In Multilevel home Lives With Child(avni), Significant other Medications amitriptyline 10 mg oral tablet 10 mg = 1 tab, Oral, every night at bedtime RT, Taken 10 mg at bedtime, # 90 tab, 3 Refill(s) Start Date: 10/02/22 Status: Ordered Dupixent Pre-filled Pen 300 mg/2 [...] Range]: 1 Peripheral Pulse Rate [60-100 bpm] 100 b pm (10/02/22 8:05 AM) Blood Pressure [90-140/60-90 mmHg] 120/9 0mmHg (10/02/22 8:05 AM) Weight 74.30 kg (10/02/22 8:05 AM) Weight Measured (lbs) 163.803 lb (10/02/22 8:05 AM) [place] Body Weight Calculated 57 kg (10/02/22 8:05 AM) Height 165.1 cm (10/02/22 8:05 AM) Height/Length Measured (inches) 65 inch (10/02/22 8:05 AM) BSA Measured 1.85 m2 (10/02/22 8:05 AM) Body Mass Index 27.26 kg/m2 (10/02/22 8:05 AM) Social History Social History Type Response Tobacco Never tobacco user, Tobacco use status unknown Tobacco Use:. Sex Physician Outpatient Note * Mario Gomez MD: MODIFY, MODIFY, MODIFY, PERFORM, MODIFY, MODIFY, MODIFY, MODIFY Event Display: Office Clinic Note Physician Authored Date: [id number] KIANA ISABEL I :1990 Age:32 years Sex:Female Visit Date:10/02/2022 Primary Care Physician: Hieu Lombardi Chief Complaint ?? 32-year-old, right-handed??man??with??past medical history??asthma, POTS,??anxiety,??JAMIE non-adherent to CPAP who presents today??to [facility] Neurology service??for tingling in mouth, hands and feet. Patient was??alone in this visit .Additional information is obtained by reviewi ng available medical records.?? History of Present Illness ?? Patient mentioned that started having tingling??in May,. She said that suddenly started to appreciate a tingling sensation in her feet, right foot was affected first and then next day left foot was tingling. She was lying in bed when noticed these changes. She did not appreciate any weaknessat that time. She said that the entire feet were affected and not one particular part.?? She said that tingling was off and on. She said that tingling was happening at any time of the day and last for 1 hour.??A couple of weeks after tingling in feet she started to have tingling in her hands, affecting the entire hand and sparing forearm and arms. She later developed weakness in her hands, she said that was having a hard time opening a water bottle.??Weakness and tingling is also on and off. Bythe end of July, she developed tingling around her mouth that was on and off as well not accompanied by any weakness, dysarthria or difficulty speaking. Sensory symptoms are not ascending. She does not have any problems controlling her urine or bowel movements.She does not report any vision loss, double vision. In occasions, she feels that her legs give out and stumbles. No falls. She thinksthat symptoms are getting worse as are becoming worse. However there is not any activity that makesthe symptoms better or worse. She added that also has a numbing sensation in same areas described above. She??is also experiecing twitches that preceded sensory symptoms, she has to urge to move her neck and shoulders,??when she suppresses the movement symptoms get worse.?? She said that has bouts of numbness and tingling in those areas that happen 2-3 times a day and last for about an hour. She was seen by spine team, and had MRI of cervical spine did not show any central canal stenosis, only mild right foraminal stenosis at C5-C6 and mild spondylotic changes at C4-5??and C5-6 (??I personally reviewed the study and agree with those findings.).??Kiana mentioned that also develop throbbing but also pressure-like moderate to severe ??pain in her occiput that can last from 2 to 24 hours.??There is no nausea or vomiting with pain. Sometimes has photophobia and phonophobia. Occasional kinesio phobia.?? She takes Tylenol 1 gr and helps a bit, sometimes also takes ibuprofen. No apparent trigger or red flags for headache.??No apparent visual aura but tingling could be a sensory aura. She said that this has affected her ability to concentrate and work efficiently. However, she is not makingany mistakes at work because of these symptoms.? Review of Systems ?? The patient has no additional neurologic, psychiatric, head, ears, eyes, nose, throat, pulmonary, cardiovascular, gastrointestinal, musculoskeletal, skin, endocrine, renal, immunological, allergic, lymphoid, rheumatologic??and hematological symptoms other than those noted above Physical Exam Vitals & Measurements HR:??100??(Peripheral)?? BP:??120/90?? HT:??165.1??cm?? WT:??74.30??kg?? BMI:??27.26?? BSA:??1.85?? General Physical Examination: ?? General:??well nourished, in no acute distress, appropriately groomed and dressed?? Skin: No rashes or lesions (full gowned exam not performed) Pulm:??Breathing comfortably on room air Cardiac:??RRR Abdomen:??soft, non-distended? Neurological Examination: ?? Language/speech: Naming and repetition intact, fluent, follows 3-step commands??across midline?? Mental status:??Oriented to self, place and time ?? Cranial Nerves: II: Pupils equal and reactive, no RAPD, no VF deficits III, IV, : EOM intact, no gaze preference or deviation, no nystagmus. V: normal sensation in V1, V2, and V3 segments bilaterally VII: no asymmetry, no nasolabial fold flattening VIII: normal hearing to speech IX, X: normal palatal elevation, no uvular deviation XI: 5/5 head turn and 5/5 shoulder shrug bilaterally XII: midline tongue protrusion Motor: 5/5 muscle power in Rt shoulder abductors/adductors, elbow flexors/extensors, wrist flexors/extensors, finger abductors/adductors.?5/5 in Rt hipflexors/extensors, knee flexors/extensors, ankle dorsiflexors and planter flexors. ?? 5/5 muscle power in Lt shoulder abductors/adductors, elbow flexors/extensors, wrist flexors/extensors, finger abductors/adductors.?5/5 in Lt hipflexors/extensors, knee flexors/extensors, ankle dorsiflexors and planter flexors. ?? Reflexes:??3/4 throughout, bilateral flexor planter response, no Pedraza's, no clonus Sensory: Normal to light touch, pinprick, proprioception and vibration??in 4 extremities ?? No hemineglect, no extinction to double sided stimulation (visual & tactile) Romberg absent Coordination: Normal finger to nose and heel to quintanilla, no tremor, no dysmetria Station: normal stance, no truncal ataxia Gait: Normal; patient able to tip-toe, heel-walk.??Pull test is negative Assessment/Plan 32-year-old, right-handed??woman??with??past medical history??asthma, POTS,??anxiety,??JAMIE non-adherent to CPAP who presents today??to [facility] Neurology service??for a 4-month history of progressive tingling sensation and numbness localized exclusively in mouth, hands and feet that is not ascending and has been associated with hand weakness. She also reported twitching in shoulders and neck, with the urge to move them and has the ability to suppress movement. In addition, she has had frequent occipital headaches. Her exam did not show any focal signs, no sensory loss. Patient had a cervical MRI that only showed mild right foraminal stenosis that does not correlate withher symptoms. Her presentation is not consistent yet with any localizable lesion, however MS or other demyelinating disorders should be ruled out given her age and also spread of sensory symptoms. Migraine with sensory aura is another possibility and she is endorsing chronic headaches. Functional neurological disorder is another consideration, however will wait until workup is completed. ?? Impression: ?? 1) Migraine with possible sensory??aura 2) Rule out demyelinating lesions? Plan: ?? Obtain MRI of the brain with and without contrast to rule out any lesions to explain her sensorysymptoms, including demyelinating lesions. Start amitriptyline 10 mg at bedtime for??migraine prophylaxis. Keep taking Tylenol 500 mg every 8 hours as needed for headaches No need for EEG for now as I do not think that those twitches are seizures, they have more characteristic of tic and we will keep following. Counseled on CPAP every night. Start a headache diary Discuss next visit to obtain EMG and nerve conduction study according to MRI results. Return to clinic in 2 months Problem List/Past Medical History Ongoing Anemia Anxiety Asthma Cervical spondylosis Insomnia Menstrual abnormality Migraine headache with aura Neck pain Neuroforaminal stenosis of cervical spine Paresthesias POTS (postural orthostatic tachycardia syndrome) Sleep apnea Historical No qualifying data Medications Dupixent Pre-filled Pen 300 mg/2 mL subcutaneous solution, 300 mg, Subcutaneous, every 2 wk Dupixent Pre-filled Syringe 300 mg/2 mL subcutaneous solution montelukast 10 mg oral tablet, 10 mg= 1 tab, Oral, Daily Trelegy Ellipta 200 mcg-62.5 mcg-25 mcg/inh inhalation powder Ventolin HFA 90 mcg/inh inhalation aerosol Allergies Banana Gentry Symbicort vancomycin Cats??(Unknown) Dogs??(Unknown) Dust??(Unknown) Tape budesonide-formoterol??(Unknown) formoterol??(Unknown) formoterol-mometasone??(Unknown) Social History Electronic Cigarette/Vaping Electronic Cigarette Use: Unknown/not obtained. Tobacco Tobacco use status unknown Tobacco Use:. 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 She is in the process of a divorce. She lives with her three children ( Joaquim, Minerva, Lilia). Negative for cigarette smoking, EtOH or recreationaldrugs. She enjoys reading and hiking. Family History Hypertension: Father. Mother has lower extremity neuropathy, unknown etiology. Maternal grandfather with stroke and diabetic peripheral neuropathy Attending Attestation Mario Bragg MD Neurologist?? [facility]? I personally spent a total of 60 minutes??providing direct??care for this patient on the date of the encounter. Electronically Signed on 10/02/22 09:42 AM Mario Gomez MD Outpatient Summary note * Harinder Karimi: PERFORM Event Display: Ambulatory Patient Summary Authored Date: [id number] KIANA ISABEL I :1990 Age:32 years Sex:Female Visit Date:10/02/2022 Primary Care Physician: Hieu Lombardi Ambulatory Visit Instructions We would like to thank you for allowing us to assist you with your healthcare needs. The following includes patient education materials and information regarding your injury/illness. Your Next Steps Instructions From Your Care Team It was a pleasure seeing you today Kiana. It is still not clear to me what is the origin of your sensory symptoms however I will gather more information. Here are my recommendations: ?? Obtain brain MRI with and without contrast Start amitriptyline 10 mg at bedtime for headache prophylaxis. Please let me know if twitches also improves with amitriptyline. No need for EEG for now as I do not think that those twitches are seizures. Keep taking Tylenol 500 mg every 8 hours as needed for headaches Start a headache diary Discuss next visit to obtain EMG and nerve conduction study according to MRI results. Return to clinic in 2 months ?? Please call me if you have any questions or concerns. Scheduled Future Appointments Thursday 1:30 PM EDT ?? With: Keya Solano Where: [facility] Rehabilitation Status: Confirmed Medications What How Much When Instructions Unchanged albuterol (Ventolin HFA 90 mcg/ inh inhalation aerosol) 18 g, INHALE 2 PUFFS BY MOUTH EVERY 6 HOURS NEEDED FOR SHORTNESS OF BREATH OR WHEEZING ?? Unchanged dupilumab (Dupixent Pre-filled Pen 300 mg/ 2 mL subcutaneous solution) 300 Milligrams Subcutaneous (under the skin) Every other week rotate injection sites ?? Unchanged dupilumab (Dupixent Pre-filled Syringe 300 mg/ 2 mL subcutaneous solution) 4 unknown unit, 0 Refill(s) ?? Unchanged fluticasone/ umeclidinium/ vilanterol (Trelegy Ellipta 200 mcg-62.5 mcg-25 mcg/ inh inhalation powder) Unchanged montelukast (montelukast 10 mg oral tablet) 1 tab Oral (given by mouth) Every day Your Summary Problems Ongoing - Any problem that you are currently receiving treatment for. Anemia Anxiety Asthma Cervical spondylosis Insomnia Menstrual abnormality Migraine headache with aura Neck pain Neuroforaminal stenosis of cervical spine Paresthesias POTS (postural orthostatic tachycardia syndrome) Sleep apnea Your Care Team Attending Physician - Mario Gomez MD Primary Care Physician - Hieu Lombardi Referring Physician - Atiya Reno APRN-CORRECTIONAL CASEWORK SPECIALIST Discharge Vitals Heart Rate??(Peripheral) 100 Blood Pressure?? 120/90?? Height?? 65.00 in (165.1 cm) Weight?? 163.83 lb (74.30 kg) BMI?? 27.26 Allergies Banana Gentry Symbicort vancomycin Cats??(Unknown) Dogs??(Unknown) Dust??(Unknown) Tape budesonide-formoterol??(Unknown) formoterol??(Unknown) formoterol-mometasone??(Unknown) Electronically Signed on: 10/02/2022 09:21 EDTSigned by:Harinder Gomez: PERFORM Event Display: Ambulatory Patient Summary Authored Date: [id number] * Harinder Karimi: PERFORM Event Display: Ambulatory Patient Summary Authored Date: [id number] KIANA ISABEL I :1990 Age:32 years Sex:Female Visit Date:10/02/2022 Primary Care Physician: Hieu Lombardi Ambulatory Visit Instructions We would like to thank you for allowing us to assist you with your healthcare needs. The following includes patient education materials and information regarding your injury/illness. Your Next Steps Instructions From Your Care Team It was a pleasure seeing you today Kiana. It is still not clear to me what is the origin of your sensory symptoms however I will gather more information. Here are my recommendations: ?? Obtain brain MRI with and without contrast Start amitriptyline 10 mg at bedtime for headache prophylaxis. Please let me know if twitches also improves with amitriptyline. No need for EEG for now as I do not think that those twitches are seizures. Keep taking Tylenol 500 mg every 8 hours as needed for headaches Start a headache diary Discuss next visit to obtain EMG and nerve conduction study according to MRI results. Return to clinic in 2 months ?? Please call me if you have any questions or concerns. Scheduled Future Appointments Thursday 1:30 PM EDT ?? With: Keya Solano Where: [facility] Rehabilitation Status: Confirmed Medications What How Much When Instructions Unchanged albuterol (Ventolin HFA 90 mcg/ inh inhalation aerosol) 18 g, INHALE 2 PUFFS BY MOUTH EVERY 6 HOURS NEEDED FOR SHORTNESS OF BREATH OR WHEEZING ?? Unchanged dupilumab (Dupixent Pre-filled Pen 300 mg/ 2 mL subcutaneous solution) 300 Milligrams Subcutaneous (under the skin) Every other week rotate injection sites ?? Unchanged dupilumab (Dupixent Pre-filled Syringe 300 mg/ 2 mL subcutaneous solution) 4 unknown unit, 0 Refill(s) ?? Unchanged fluticasone/ umeclidinium/ vilanterol (Trelegy Ellipta 200 mcg-62.5 mcg-25 mcg/ inh inhalation powder) Unchanged montelukast (montelukast 10 mg oral tablet) 1 tab Oral (given by mouth) Every day Your Summary Problems Ongoing - Any problem that you are currently receiving treatment for. Anemia Anxiety Asthma Cervical spondylosis Insomnia Menstrual abnormality Migraine headache with aura Neck pain Neuroforaminal stenosis of cervical spine Paresthesias POTS (postural orthostatic tachycardia syndrome) Sleep apnea Your Care Team Attending Physician - Mario Gomez MD Primary Care Physician - Hieu Lombardi Referring Physician - Atiya Reno APRN-[facility]ASCALE Discharge Vitals Heart Rate??(Peripheral) 100 Blood Pressure?? 120/90?? Height?? 65.00 in (165.1 cm) Weight?? 163.83 lb (74.30 kg) BMI?? 27.26 Allergies Banana Gentry Symbicort vancomycin Cats??(Unknown) Dogs??(Unknown) Dust??(Unknown) Tape budesonide-formoterol??(Unknown) formoterol??(Unknown) formoterol-mometasone??(Unknown) Electronically Signed on: 10/02/2022 09:19 EDTSigned by:BOB Patient Care team information Care Team Personnel Name: Hieu Lombardi Position: No Access Member Role: Primary Care Physician Address: Address: [address] [place] [address]- Care Team Related Persons Name: JOAQUIM MCCOY Address: Home [address] [place] [phone] [facility] Name: JENIFFER GALLEGOS Address: Home
--- OUTSIDE RECORDS SUMMARY | 2023-10-31 10:21 | XMS_ITS | Continuity of Care Document ---
Author Organization [facility] Ambulatory Clinics Address [address] [place] [address] Care Team Providers Care Time Study Engineer Name Role Phone MINEKEVEN Hope Elvira Primary Care Physician [phone] [facility] NBR [id number] Date(s): 12/10/22 - 12/10/22 [facility] Ambulatory Clinics [address] [place], [place] [address] Encounter Diagnosis Migraine with aura(Discharge Diagnosis) - 12/10/22 Tingling(Discharge Diagnosis) - 12/10/22 Discharge Disposition: Home or Self Care Attending Physician: Mario Gomez MD Referring Physician: Mario Gomez MD Allergies, Adverse Reactions, Alerts Substance Reaction Severity Status vancomycin Mild Active formoterol Unknown Unknown Active formoterol-mometasone Unknown Unknown Active Cats Unknown Unknown Active Dogs Unknown Unknown Active Tape Unknown Active [place] Mild Active Dust Unknown Unknown Active Banana Mild Active budesonide-formoterol Unknown Unknown Active Symbicort Mild Active Assessment and Plan Future Appointments Functional Status 12/10/22 Recent Travel History No recent travel Medications amitriptyline 10 mg oral tablet 10 mg = 1 tab, Oral, every night at bedtime RT, Taken 10 mg at bedtime, # 90 tab, 3 Refill(s), Pharmacy: [id number] Start Date: 10/08/22 Status: Ordered Dupixent [...] TID, # 180 cap, 6 Refill(s), Pharmacy: [id number] Start Date: 12/10/22 Status: Ordered LORazepam 0.5 mg oral tablet 2 EA, 0 Refill(s), TAKE ONE TABLET BY MOUTH 1 HOUR PRIOR TO PROCEDURE AND REPEAT DOSE IMMEDIATELY PRIOR TO PROCEDURE, 0 Refill(s) Start Date: 12/03/22 Status: Ordered montelukast 10 mg oral tablet [...] recent to oldest [Reference Range]: 1 2 Peripheral Pulse Rate [60-100 bpm] 92 bp m (12/10/22 8:12 AM) 88 bpm (12/10/22 8:01 AM) Blood Pressure [90-140/60-90 mmHg] 133/8 8mmHg (12/10/22 8:01 AM) Mean Arterial Pressure, Cuff [65-140 mmH g] 103 mmHg (12/10/22 8:01 AM) Weight 76.20 kg (12/10/22 8:12 AM) Weight Measured (lbs) 167.992 lb (12/10/22 8:12 AM) [place] Body Weight Calculated 57 kg (12/10/22 8:12 AM) Height 165.1 cm (12/10/22 8:12 AM) Height/Length Measured (inches) 65 inch (12/10/22 8:12 AM) BSA Measured 1.87 m2 (12/10/22 8:12 AM) Body Mass Index 27.96 kg/m2 (12/10/22 8:12 AM) Social History Social History Type Response Tobacco Never tobacco user, Tobacco use status unknown Tobacco Use:. Sex Physician Outpatient Note * Mario Gomez MD: MODIFY, PERFORM, MODIFY Event Display: Office Clinic Note Physician Authored Date: [id number] MIYA ISABEL I :1990 Age:32 years Sex:Female Visit Date:12/10/2022 Primary Care Physician: KEVEN BLOUNT Chief Complaint Miya doesn't have any new issues. Additional Information Miya presents for follow-up of tingling and headaches History of Present Illness ?? Miya is alone in this visit ?? Interval: ?? Discussed that MRI brain thankfully did not show any demyelinating lesions or other insults that could explain her current symptoms She was prescribed gabapentin 100 mg daily but has not helped much for tingling She still takes amitriptyline??10 mg at bedtime Migraine attacks frequency significantly improved from 3-4 times a week to once a month. They are also less severe. She mentioned that tingling is still happens in her face, arms and feet and last for 30-45 min. No weakness. ? Review of Systems ?? The patient has no additional neurologic, psychiatric, head, ears, eyes, nose, throat, pulmonary, cardiovascular, gastrointestinal, musculoskeletal, skin, endocrine, renal, immunological, allergic, lymphoid, rheumatologic??and hematological symptoms other than those noted above Physical Exam Vitals & Measurements HR:??88??(Peripheral)?? BP:??133/88?? General Physical Examination: ?? General:??well nourished, in [...] flexors/extensors, ankle dorsiflexors and planter flexors. ?? Reflexes:??2/4 throughout, bilateral flexor planter response, no Pedraza's, [...] to tip-toe, heel-walk.??Pull test is negative Assessment/Plan ?? Impression: ?? 1) Migraine with possible sensory??aura ?? Plan: ?? Continue amitriptyline 10 mg at bedtime for??migraine prophylaxis. Continue??taking Tylenol 500 mg every 8 hours as needed for headaches Increase gabapentin to 100 mg three times a day No need for EEG for now as I do not think that those twitches are seizures, they have more characteristic of tic and we will keep following. Counseled on CPAP every night. ?? Return to clinic in??3 months ? Problem List/Past Medical History Ongoing Anemia Anxiety Asthma Cervical spondylosis Insomnia Menstrual abnormality Migraine headache with aura Migraine with aura, not intractable, without status migrainosus Neck pain Neuroforaminal stenosis of cervical spine Paresthesias POTS (postural orthostatic tachycardia syndrome) Sleep apnea Historical No qualifying data Medications amitriptyline 10 mg oral tablet, 10 mg= 1 tab, Oral, every night at bedtime RT, 3 refills Dupixent Pre-filled Pen 300 mg/2 mL subcutaneous solution, 300 mg, Subcutaneous, every 2 wk Dupixent Pre-filled Syringe 300 mg/2 mL subcutaneous solution gabapentin 100 mg oral capsule, 100 mg= 1 cap, Oral, Daily, 1 refills LORazepam 0.5 mg oral tablet montelukast 10 mg oral tablet, 10 mg= 1 tab, Oral, Daily Trelegy Ellipta 200 mcg-62.5 mcg-25 mcg/inh inhalation powder Ventolin HFA 90 mcg/inh inhalation aerosol Vienva 100 mcg-20 mcg oral tablet Allergies Banana [place] Symbicort vancomycin Cats??(Unknown) Dogs??(Unknown) Dust??(Unknown) Tape budesonide-formoterol??(Unknown) formoterol??(Unknown) formoterol-mometasone??(Unknown) Social History Alcohol Never Electronic Cigarette/Vaping Electronic Cigarette Use: Never, Unknown/not obtained. Tobacco Never tobacco user, Tobacco use status unknown Tobacco Use:. Family History Hypertension: Father. Attending Attestation Mario Bragg MD Neurologist?? [facility]? I personally spent a total of??45 minutes??providing direct??care for this patient on the date of the encounter.?? Electronically Signed on 12/10/22 08:39 AM Mario Gomez MD Patient Care team information Care Team Personnel Name: KEVEN BLOUNT Position: No Access Member Role: Primary Care Physician Address: Address: [address] [place] [address] Care Team Related Persons Name: JOAQUIM MCCOY Address: Home [address] [place] [phone] [facility] Name: JENIFFER GALLEGOS Address: Home
--- OUTSIDE RECORDS SUMMARY | 2023-10-31 10:21 | XMS_ITS | Continuity of Care Document ---
Author Organization [facility] Ambulatory Clinics Address [address] [place] [address] Care Team Providers Care Ferry Engineer Name Role Phone Maria C, Hieu Felix Primary Care Physician [phone] Encounter [facility] NBR [id number] Date(s): 10/24/22 - 10/24/22 [facility] Ambulatory Clinics [address] [place] [address]- Discharge Disposition: Home Allergies, Adverse Reactions, Alerts Substance Reaction Severity Status vancomycin Mild Active formoterol Unknown Unknown Active budesonide-formoterol Unknown Unknown Active Symbicort Mild Active formoterol-mometasone Unknown Unknown Active Cats Unknown Unknown Active Dogs Unknown Unknown Active Tape Unknown Active Banana Mild Active [place] Mild Active Dust Unknown Unknown Active Assessment and Plan Future Appointments Medications amitriptyline 10 mg oral tablet 10 mg = 1 tab, Oral, every night at bedtime RT, Taken 10 mg at bedtime, # 90 tab, 3 Refill(s), Pharmacy: [facility] Start Date: 10/08/22 Status: Ordered Dupixent [...] Daily, # 90 cap, 1 Refill(s), Pharmacy: [facility] Start Date: 10/17/22 Status: Ordered montelukast [...] Member Role: Primary Care Physician Address: Address: [address] [place] [id number] Care Team Related Persons Name: JOAQUIM MCCOY Address: Home [address] [place] [phone] [place] Name: JENIFFER GALLEGOS Address: Home
--- OUTSIDE RECORDS SUMMARY | 2023-10-31 10:21 | XMS_ITS | Continuity of Care Document ---
Author Organization [facility] Address [address] [place] [id number] Care Team Providers Care Rn Triage Name Role Phone JAXSON KEVEN LEMON Primary Care Physician [phone] Encounter [facility] NBR [id number] Date(s): 10/22/23 - 10/22/[address] [address] Discharge Disposition: Home Allergies, Adverse Reactions, Alerts Substance Criticality Severity Reaction Reaction Severity Status vancomycin Low criticality Mild Act jamshid formoterol Unable to assess criticality Unknown Unknown Active Dogs Unable to assess criticality Unknown Unknown Active [place] Low criticality Mild Acti ve budesonide-formoterol Unable to assess criticality Unknown Unknown Active Symbicort Low criticality Mild Acti ve formoterol-mometasone Unable to assess criticality Unknown Unknown Active Cats Unable to assess criticality Unknown Unknown Active Tape Unable to assess criticality Unknown Active Dust Unable to assess criticality Unknown Unknown Active Banana Low criticality Mild Acti ve Assessment and Plan Future Appointments Medications albuterol 1.25 mg/3 mL [...] TID, # 180 cap, 6 Refill(s), Pharmacy: [facility] Start Date: 12/10/22 Status: Ordered hydrOXYzine [...] BID, # 180 tab, 1 Refill(s), Pharmacy: [facility], 165.1, cm, 05/07/23 15:22:00 EDT, Height, [...] headache, # 90 tab, 1 Refill(s), Pharmacy: [facility], 165.1, cm, 03/05/23 7:56:00 EST, Height, 76.11, kg, 03/05/23 8:01:00 EST, Weight Dosing Start Date: 03/05/23 Status: Ordered Relpax 20 mg oral tablet 20 mg = 1 tab, Oral, Daily, PRN as needed for migraine headache, may repeat dose once in 2 hours, #12 tab, 1 Refill(s), Pharmacy: [facility], 165.1, cm, 08/06/23 7:59:00 EDT, Height, [...] Complete d Extraction of wisdom tooth Completed Social History Social History Type Response Tobacco Never tobacco user, Tobacco use status unknown Tobacco Use:. Sex Sex Representation Female (finding) Patient Care team information Care Team Personnel Name: KEVEN PURI DNP Position: No Access Member Role: Primary Care Physician Address: [address] Care Team Related Persons Name: JOAQUIM MCCOY Name: JENIFFER GALLEGOS Name: MERLE JARRETT Insurance Providers Guarantor name: KIANA Sarwat [facility] Health Plan Information #: 1 Payer: MEDICAID [place] Member Number: NA Policy Number: NA
--- OUTSIDE RECORDS SUMMARY | 2023-10-31 10:21 | XMS_ITS | Continuity of Care Document ---
Author Organization [facility] Address [address] [place] [id number] Encounter [facility] FIN NBR [id number] Date(s): 03/15/22 - 03/15/[address] [address] Discharge Disposition: Home or Self Care Attending Physician: Hudson Davison. TRISHA
--- OUTSIDE RECORDS SUMMARY | 2023-10-31 10:22 | XMS_ITS | Encounter Summary ---
Author Organization [facility] Address [address] [place] [address] Care Team Providers Care Care Aide Name Role Phone LilianNadja bolivar PASCALE Primary Care Provider [phone] Butch Yanes MD Unavailable [phone] Encounter Details Date Type Department Care Team (Late st Contact Info) Description 09/08/2020 Lab Requisition [facility] Pathology & Laboratory Medicine - [address] [id number] Outr Resulting Lab, Provider Social History Tobacco Use Types Packs/Day Years Used Date Smoking Tobacco: Never Alcohol Use Standard Drinks/Week Comments No 0 (1 standard drink = 0.6 oz pur e alcohol) Interpersonal Safety Answer Date Record ed Physically Hurt Never 09/25/2019 Verbally Threaten Not on file 09/25/2019 Comments Yes Sex and Gender Information Value Date Recorded Sex Assigned at Not on file Gender Identity Not on file Sexual Orientation Not on file documented as of this encounter Plan of Treatment Not on file documented as of this encounter Procedures Procedure Name Priority Date/Time Associated Diagnosis Comments ZZCOVID-19 TEST [facility] PCR Today 09/08/2020 9:00 EDT COVID-19 TESTING Routine 09/08/2020 9:00 EDT documented in this encounter Results * COVID-19 TEST [facility] PCR (09/08/2020 9:00 EDT) Swab ENTIRE NASOPHARYNX / Unknown 09/08/2020 9:00 EDT 09/08/2020 21:17 EDT Provider Outr Resulting Lab MICROBIOLOGY - GENERAL ORDERABLES [facility] [address] [place] [address] * COVID-19 TESTING (09/08/2020 9:00 EDT) COVID-19 rt-PCR Result Negative Negative 09/09/2020 10:55 EDT [facility] Comment: This test has not been FDA cleared or approved. This test has been authorized by FDA under an EUA for use by authorized laboratories. This test has been authorized only for detection of nucleic acid from 2019-nCoV, not for any other viruses or pathogens. This test is only authorized for the duration of the declaration that circumstances exist justifying the authorization of emergency use of in vitro diagnostic tests for detection and/or diagnosis of 2019-nCoV under section 564(b)(1) of Act, 21 U.S.C ?? 360bbb-3(b) (1), unless the authorization is terminated or revoked sooner. Negative results do not preclude 2019-nCoV infection and should not be used as the sole basis for treatment or other patient management decisions. Negative results must be combined with clinical observations, patient history, and epidemiological information. Testing was performed using the swati SARS-CoV-2 assay ([employer] on the Swati 6800 System Performing Lab Swati 6800 [facility] Lab 09/09/2020 10:55 EDT [facility] Swab 09/08/2020 9:00 EDT 09/08/2020 21:17 EDT Provider Outr Resulting Lab MICROBIOLOGY - GENERAL ORDERABLES [facility] [address] [place] [address] documented in this encounter Visit Diagnoses Not on filedocumented in this encounter Care Teams Care Aide Relationship Specialty Start Date End Date Nadja Doan [place] [address] PCP - General 12/24/18 Butch Yanes MD [address] [place] [phone] 12/24/18 documented as of this encounter
--- OUTSIDE RECORDS SUMMARY | 2023-10-31 10:22 | XMS_ITS | Encounter Summary ---
Author Organization [facility] Address [address] [place] [address] Care Team Providers Care Derrickman Helper Name Role Phone OlimpiaNadja PASCALE Primary Care Provider [phone] Butch Yanes MD Unavailable [phone] Encounter Details Date Type Department Care Team (Late st Contact Info) Description 07/17/2020 Lab Requisition [facility] Pathology & Laboratory Medicine - [facility] [address] [place], [place] [address] Outr Resulting Lab, Provider Social History Tobacco [...] Procedure Name Priority Date/Time Associated Diagnosis Comments HEPATITIS C AB W REFLEX TO HCV RNA BY PCR Routine 07/16/2020 14:35 EDT HEPATITIS B SURFACE ANTIGEN Routine 07/16/2020 14:35 EDT documented in this encounter Results * HEPATITIS B SURFACE ANTIGEN (07/16/2020 14:35 EDT) Hep B Surface Ag Negative Negative 07/18/2020 9:31 EDT [facility] Blood VENOUS BLOOD / Unknown 07/16/2020 14:35 EDT 07/17/2020 15:53 EDT Provider Outr Resulting Lab CHEMISTRY & BLOOD GAS ORDERABLES Performing Organization Address City/[facility] Co de Phone Number [facility] [address] [place] [address] * HEPATITIS C AB W REFLEX TO HCV RNA BY PCR (07/16/2020 14:35 EDT) Hep C Antibody Negative Negative 07/18/2020 10:43 EDT [facility] Blood VENOUS BLOOD / Unknown 07/16/2020 14:35 EDT 07/17/2020 16:00 EDT Provider Outr Resulting Lab CHEMISTRY & BLOOD GAS ORDERABLES Performing Organization Address City/[facility] Co de Phone Number [facility] [address] [place] [address] documented in this encounter Visit Diagnoses Not on filedocumented in this encounter Care Teams Derrickman Helper Relationship Specialty Start Date End Date Nadja Doan FNP [address] [place] [address] PCP - General 12/24/18 Butch Yanes MD [address] [place] [phone] 12/24/18 documented as of this encounter
--- OUTSIDE RECORDS SUMMARY | 2023-10-31 10:22 | XMS_ITS | Encounter Summary ---
Author Organization [facility] Address [address] [place] [address] Care Team Providers Care Senior Electrical Designer Name Role Phone LilianNadja bolivar PASCALE Primary Care Provider [phone] Butch Yanes MD Unavailable [phone] Encounter Details Date Type Department Care Team (Late st Contact Info) Description 03/07/2021 Lab Requisition [facility] Pathology & Laboratory Medicine - [address] [id number] Outr Resulting Lab, Provider Social History Tobacco [...] Comments ZZCOVID-19 TEST [facility] PCR Today 03/07/2021 10:05 EST COVID-19 TESTING Routine 03/07/2021 10:0 5 EST documented in this encounter Results * COVID-19 TEST [facility] PCR (03/07/2021 10:05 EST) Swab 03/07/2021 10:0 5 EST 03/07/2021 22:59 EST Provider Outr Resulting Lab MICROBIOLOGY - GENERAL ORDERABLES [facility] [address] [place] [address] * COVID-19 TESTING (03/07/2021 10:05 EST) COVID-19 rt-PCR Result Negative Negative 03/08/2021 16:[address] [facility] Comment: This test has not [...] performed using the swati SARS-CoV-2 assay ([employer] on the Swati 6800 System Performing Lab Swati 6800 [facility] Lab 03/08/2021 16:[address] [facility] Swab 03/07/2021 10:0 5 EST 03/07/2021 22:59 EST Provider Outr Resulting Lab MICROBIOLOGY - GENERAL ORDERABLES [facility] [address] [place] [address] documented in this encounter Visit Diagnoses Not on filedocumented in this encounter Care Teams Senior Electrical Designer Relationship Specialty Start Date End Date Nadja Doan [place] [address] PCP - General 12/24/18 Butch Yanes MD [address] [place] [id number] 12/24/18 documented as of this encounter
--- OUTSIDE RECORDS SUMMARY | 2023-10-31 10:22 | XMS_ITS | Continuity of Care Document ---
Author Organization [facility] Ambulatory Clinics Address [address] [place] [address] Care Team Providers Care Educational Coordinator Name Role Phone MINE, KEVEN Felix Primary Care Physician Encounter [facility] [facility] NBR [id number] Date(s): 11/28/22 - 11/28/22 [facility] Ambulatory Clinics [address] [place] [address]- Discharge Disposition: Home Allergies, Adverse Reactions, Alerts Substance Reaction Severity Status vancomycin Mild Active formoterol Unknown Unknown Active budesonide-formoterol Unknown Unknown Active Symbicort Mild Active formoterol-mometasone Unknown Unknown Active Cats Unknown Unknown Active Dogs Unknown Unknown Active Tape Unknown Active Banana Mild Active [place] Mild Active Dust Unknown Unknown Active Assessment and Plan Future Appointments Medications amitriptyline 10 mg oral tablet 10 mg = 1 tab, Oral, every night at bedtime RT, Taken 10 mg at bedtime, # 90 tab, 3 Refill(s), Pharmacy: [facility] Start Date: 10/08/22 Status: Ordered Dupixent [...] Daily, # 90 cap, 1 Refill(s), Pharmacy: [facility] Start Date: 10/17/22 Status: Ordered montelukast [...] Member Role: Primary Care Physician Address: Address: [address] [place] [id number] Care Team Related Persons Name: JOAQUIM MCCOY Address: Home [address] [place] [phone] [facility] Name: JENIFFER GALLEGOS Address: Home
--- OUTSIDE RECORDS SUMMARY | 2023-10-31 10:22 | XMS_ITS | Encounter Summary ---
Author Organization [facility] Address [address] [place] [address] Care Team Providers Care Translator Name Role Phone OlimpiaNadja PASCALE Primary Care Provider [phone] Butch Yanes MD Unavailable [phone] Encounter Details Date Type Department Care Team (Late st Contact Info) Description 03/13/2021 Lab Requisition [facility] Pathology & Laboratory Medicine - [address] [id number] Outr Resulting Lab, Provider Social History Tobacco [...] REFLEX TO HCV RNA BY PCR Routine 03/13/2021 12:07 EST HEPATITIS B SURFACE ANTIGEN Routine 03/13/2021 12:07 EST documented in this encounter Results * HEPATITIS B SURFACE ANTIGEN (03/13/2021 12:07 EST) Hep B Surface Ag Negative Negative 03/14/2021 9:11 EST [facility] Blood VENOUS BLOOD / Unknown 03/13/2021 12:07 EST 03/13/2021 21:07 EST Provider Outr Resulting Lab CHEMISTRY & BLOOD GAS ORDERABLES Performing Organization Address City/[facility] Co de Phone Number [facility] [address] [place] [address] * HEPATITIS C AB W REFLEX TO HCV RNA BY PCR (03/13/2021 12:07 EST) Hep C Antibody Negative Negative 03/14/2021 9:47 EST [facility] Blood VENOUS BLOOD / Unknown 03/13/2021 12:07 EST 03/13/2021 21:07 EST Provider Outr Resulting Lab CHEMISTRY & BLOOD GAS ORDERABLES Performing Organization Address City/[facility] Co de Phone Number [facility] [address] [place] [address] documented in this encounter Visit Diagnoses Not on filedocumented in this encounter Care Teams Translator Relationship Specialty Start Date End Date Nadja Doan FNP [address] [place] [address] PCP - General 12/24/18 Butch Yanes MD [address] [place] [address] 12/24/18 documented as of this encounter
--- OUTSIDE RECORDS SUMMARY | 2023-10-31 10:22 | XMS_ITS | Encounter Summary ---
Author Organization [facility] Address [address] [place] [address] Care Team Providers Care School Business Administrator Name Role Phone LilianNadja bolivar PASCALE Primary Care Provider [phone] Butch Yanes MD Unavailable [phone] Encounter Details Date Type Department Care Team (Late st Contact Info) Description 12/07/2020 Lab Requisition [facility] Pathology & Laboratory Medicine - [address] [address] Outr Resulting Lab, Provider Social History Tobacco [...] Comments ZZCOVID-19 TEST [facility] PCR Today 12/06/2020 18:00 EDT COVID-19 TESTING Routine 12/06/2020 18:0 0 EDT documented in this encounter Results * COVID-19 TEST [facility] PCR (12/06/2020 18:00 EDT) Swab ENTIRE NASOPHARYNX / Unknown 12/06/2020 18:00 EDT 12/07/2020 16:41 EDT Provider Outr Resulting Lab MICROBIOLOGY - GENERAL ORDERABLES [facility] [address] [place] [address] * COVID-19 TESTING (12/06/2020 18:00 EDT) COVID-19 rt-PCR Result Negative Negative 12/08/2020 13:56 EDT [facility] Comment: This test has not [...] clinical observations, patient history, and epidemiological information. This test was developed and its performance characteristics determined by [facility]. It has not been cleared or approved by the US Food and Drug Administration. FDA does not require this test to go through premarket FDA review. This test is used for clinical purposes. It should not be regarded as investigational or for research. This laboratory is certified under the Clinical Laboratory Improvement Amendments (CLIA) as qualified to perform high complexity clinical laboratory testing. This test is based on the [facility][NOTE 3] COVID-19 Emergency Use Authorization (EUA) assay, with minor modification as defined by the FDA Performed on the IQcardo 7 Flex RT-PCR System. Performing Lab [facility] Lab 12/08/2020 13:56 EDT [facility] Swab 12/06/2020 18:0 0 EDT 12/07/2020 16:41 EDT Provider Outr Resulting Lab MICROBIOLOGY - GENERAL ORDERABLES [facility] [address] [place] [address] documented in this encounter Visit Diagnoses Not on filedocumented in this encounter Care Teams School Business Administrator Relationship Specialty Start Date End Date Nadja Doan FNP [address] [place], [place] [address] PCP - General 12/24/18 Butch Yanes MD [address] [place] [phone] 12/24/18 documented as of this encounter
--- OUTSIDE RECORDS SUMMARY | 2023-10-31 10:22 | XMS_ITS | Continuity of Care Document ---
Author Organization [facility] Address [address] [place] [address] Care Team Providers Care Tactical Intelligence Officer Name Role Phone Hieu Lombardi Primary Care Physician Encounter [facility] FIN NBR [id number] Date(s): 08/21/22 - 08/21/[address] [id number] [place] Discharge Disposition: Home or Self Care Attending Physician: Hieu Lombardi Admitting Physician: Hieu Lombardi Referring Physician: Hieu Lombardi Assessment and Plan Future Appointments Results Radiology Reports * Exam Date Time Procedure Performing Provider Status 08/21/22 4:36 PM MRI Spine Cervical w /o Contrast DomainUser, Generated; Auth (Verified) Notes: (MRI Spine Cervical w/o Contrast) Reason For Exam: INCREASED TINGLING ON EXTREMITIES MRI Spine Cervical w/o Contrast EXAM DESCRIPTION: MRI Spine Cervical w/o Contrast 08/21/2022 INDICATION: INCREASED TINGLING ON EXTREMITIES TECHNIQUE: Multiplanar MRI examination of the cervical spine utilizing T1, fat-suppressed T2 and fast STIR technique. COMPARISON: Routine radiographs of the cervical spine from 07/31/2022 FINDINGS: Mild reversal of cervical lordosis C2-3: No focal disc protrusion, significant spinal stenosis or neural foraminal narrowing. C3-4: No focal disc protrusion, significant spinal stenosis or neural foraminal narrowing. C4-5: Mild broad-based central disc osteophyte complex. No cord encroachment or deformity with AP spinal canal diameter of 7.9 mm. No neural foraminal narrowing C5-6: Mild broad-based central disc osteophyte complex. No cord encroachment or deformity with AP spinal canal diameter of 9.2 mm. Right uncovertebral spurring with right neural foraminal narrowing. No significant left neural foraminal narrowing. C6-7: No focal disc protrusion, significant spinal stenosis or neural foraminal narrowing. C7-T1: No focal disc protrusion, significant spinal stenosis or neural foraminal narrowing. Mild posterior disc protrusion at T3-4 with mild relative stenosis. The visualized posterior fossa structures and cervical spinal cord are normal in morphology and signal intensity with no evidence of syrinx. No suspicious regional marrow lesions. No vertebral body compression deformity in the cervical region Paraspinal soft tissues are unremarkable. 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 No significant central stenosis. Mild right neural foraminal narrowing at C5-6. Please see above discussion for individual level description. Normal cervical spinal cord. JOB #: [id number] Final Signed by: Amor Trotter MD Signed (Electronic Signature): 08/21/2022 5:08 pm Patient Care team information Care Team Personnel Name: Hieu Lombardi Position: No Access Member Role: Primary Care Physician Address: Address: [address] [place] [address] Care Team Related Persons Name: JOAQUIM MCCOY Address: Home [address] [place] [phone] [facility] Name: JENIFFER GALLEGOS Address: Home
--- OUTSIDE RECORDS SUMMARY | 2023-10-31 10:22 | XMS_ITS | Continuity of Care Document ---
Author Organization [facility] Ambulatory Clinics Address [address] [place] [address] Care Team Providers Care Oracle Database Analyst Name Role Phone Maria CHieu hurtado Elvira Primary Care Physician [phone] Encounter [facility] FIN NBR [id number] Date(s): 10/17/22 - 10/17/22 [facility] Ambulatory Clinics [address] [place] [address]- Discharge Disposition: Home Allergies, Adverse Reactions, Alerts Substance Reaction Severity Status vancomycin Mild Active formoterol Unknown Unknown Active budesonide-formoterol Unknown Unknown Active Symbicort Mild Active formoterol-mometasone Unknown Unknown Active Cats Unknown Unknown Active Dogs Unknown Unknown Active Tape Unknown Active Banana Mild Active [place] Mild Active Dust Unknown Unknown Active Assessment and Plan Future Appointments Medications amitriptyline 10 mg oral tablet 10 mg = 1 tab, Oral, every night at bedtime RT, Taken 10 mg at bedtime, # 90 tab, 3 Refill(s), Pharmacy: [facility] Start Date: 10/08/22 Status: Ordered Dupixent [...] Daily, # 90 cap, 1 Refill(s), Pharmacy: [facility] Start Date: 10/17/22 Status: Ordered montelukast [...] Member Role: Primary Care Physician Address: Address: [address] [place] [id number] Care Team Related Persons Name: JOAQUIM MCCOY Address: Home [address] [place] [phone] [facility] Name: JENIFFER GALLEGOS Address: Home
--- OUTSIDE RECORDS SUMMARY | 2023-10-31 10:22 | XMS_ITS | Continuity of Care Document ---
Author Organization [facility] Address [address] [place] [address] Care Team Providers Care Electrotype Molder Name Role Phone RADHAKEVEN MONTOYA DNP Primary Care Physician Encounter [facility] NBR [id number] Date(s): 02/12/23 - 02/12/23 [facility] [address] [place] [address]- Discharge Disposition: Home Allergies, Adverse Reactions, Alerts Substance Reaction Severity Status vancomycin Mild Active formoterol Unknown Unknown Active budesonide-formoterol Unknown Unknown Active Symbicort Mild Active formoterol-mometasone Unknown Unknown Active Cats Unknown Unknown Active Dogs Unknown Unknown Active Tape Unknown Active Banana Mild Active [place] Mild Active Dust Unknown Unknown Active Assessment and Plan Future Appointments Medications amitriptyline 25 mg oral tablet 25 mg = 1 tab, Oral, every night at bedtime, # 90 tab, 6 Refill(s), Pharmacy: [facility], 165.1, cm, 12/10/22 8:12:00 EDT, Height Start Date: 02/05/23 Status: Ordered Dupixent Pre-filled Pen 300 mg/2 [...] TID, # 180 cap, 6 Refill(s), Pharmacy: [facility] Start Date: 12/10/22 Status: Ordered LORazepam [...] Member Role: Primary Care Physician Address: Address: [address] Care Team Related Persons Name: JOAQUIM MCCOY Address: Home [address] [place], [place] [id number] [facility] Name: JENIFFER GALLEGOS Name: MERLE JARRETT Address: [address] [place] [address]
--- OUTSIDE RECORDS SUMMARY | 2023-10-31 10:22 | XMS_ITS | Continuity of Care Document ---
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 Name Role Phone KEVEN PURI DNP Primary Care Physician Encounter [facility] NBR [id number] Date(s): 01/23/23 - 01/23/[address] [phone]- [place] Encounter Diagnosis Pneumonia(Discharge Diagnosis) - 01/23/23 Migraine headache(Discharge Diagnosis) - 01/23/23 Discharge Disposition: Home f/u External Provider Attending Physician: Golden Cabrera MD Admitting Physician: Golden Cabrera MD Allergies, Adverse Reactions, Alerts Substance Reaction Severity Status vancomycin Mild Active formoterol Unknown Unknown Active budesonide-formoterol Unknown Unknown Active Symbicort Mild Active formoterol-mometasone Unknown Unknown Active Cats Unknown Unknown Active Dogs Unknown Unknown Active Tape Unknown Active Banana Mild Active [place] Mild Active Dust Unknown Unknown Active Assessment and Plan Future Appointments Medications amitriptyline 10 mg oral tablet 10 mg = 1 tab, Oral, every night at bedtime RT, Taken 10 mg at bedtime, # 90 tab, 3 Refill(s), Pharmacy: [id number] Start Date: 10/08/22 Status: Ordered amoxicillin 500 mg oral tablet 1,000 mg = 2 tab, Oral, TID, X 5 days, # 30 tab, 0 Refill(s), 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, 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: [id number], 165.1, cm, 12/10/22 8:12:00 EDT, Height Start Date: 01/23/23 Stop Date: 01/28/23 Status: Ordered doxycycline hyclate 100 mg oral capsule 100 mg = 1 cap, Oral, BID, X 7 days, # 14 cap, 0 Refill(s), 01/30/23 4:16:00 PM 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, 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: [id number], 165.1, cm, 12/10/22 8:12:00 EDT, Height Start Date: 01/23/23 Stop Date: 01/30/23 Status: Ordered Dupixent Pre-filled Pen 300 mg/2 [...] TID, # 180 cap, 6 Refill(s), Pharmacy: [id number] Start Date: 12/10/22 Status: Ordered LORazepam [...] 0 Refill(s) Start Date: 12/10/22 Status: Ordered Mental Status 01/23/23 Eye Opening Response Wendell Spontaneous ly Best Verbal Response Gabe Oriented Best Motor Response Gabe Obeys comman ds Gabe Coma Score 15 Problem List Condition Confirmation Course Effective Dates [...] stenosis of cervical spine Confirmed Active Results Radiology Reports * Exam Date Time Procedure Performing Provider Status 01/23/23 4:[address] Angio Chest Anne Keita (Verified) Notes: (CT Angio Chest) Reason For Exam: SOB CT Angio Chest EXAM DESCRIPTION: CT Angio Chest 01/23/2023 INDICATION: SOB TECHNIQUE: All CT scans at this facility [...] of Isovue 370 contrast was utilized COMPARISON: None FINDINGS: Normal opacification of the right ventricular outflow tract, main pulmonary arteries and segmental pulmonary arteries with no evidence of pulmonary embolism. No evidence of thoracic aortic dissection. Patchy areas of infiltrate in the right lower lobe consistent with pneumonia, most pronounced in the superior segment. Lungs otherwise clear. No significant emphysematous changes. No central endobronchial filling defect identified No pleural effusion or pneumothorax No mediastinal, hilar or axillary adenopathy. No pericardial effusion. No mass or adenopathy in the visualized upper abdomen No suspicious regional osseous lesions. IMPRESSION: No evidence of pulmonary embolism Right lower lobe pneumonia. JOB #: [id number] Final Signed by: Amor Trotter MD Signed (Electronic Signature): 01/23/2023 5:02 pm * Exam Date Time Procedure Performing Provider Status 01/23/23 4:[address] Spine Cervical w/o Contrast Felicia Ashton; Maura (Verified) Notes: (CT Spine Cervical w/o Contrast) Reason For Exam: neck pain CT Spine Cervical w/o Contrast EXAM DESCRIPTION: CT Spine Cervical w/o Contrast 01/23/2023 INDICATION: NECK PAIN TECHNIQUE: All CT scans at this facility use at least one of these dose optimization techniques: Automated exposure control; mA and/or kV adjustment per patient size (includes targeted exams where dose is matched to clinical indication); or iterative reconstruction. CT examination of the cervical spine with thin section axial images including sagittal and coronal MPR images performed on a separate workstation under concurrent supervision. COMPARISON: MRI cervical spine examination from 08/21/2022 FINDINGS: No acute fracture or subluxation. Mild reversal of cervical lordosis which was seen on prior MRI examination. Mild posterior endplate osteophyte formation at C4-5 and C5-6 consistent with mild spondylotic changes. No significant osseous encroachment on the cervical spinal canal. No focal lytic or sclerotic lesion. Paraspinal soft tissues are unremarkable. Mild biapical lung scarring. Visualized lung bases are otherwise clear. IMPRESSION: No acute fracture or subluxation Mild spondylotic changes. JOB #: [id number] Final Signed by: Amor Trotter MD Signed (Electronic Signature): 01/23/2023 4:57 pm * Exam Date Time Procedure Performing Provider Status 01/23/23 4:[address] Head w/o Contrast Justa Keita; Maura (Verified) Notes: (CT Head w/o Contrast) Reason For Exam: headache CT Head w/o Contrast EXAM DESCRIPTION: CT Head w/o Contrast 01/23/2023 INDICATION: HEADACHE TECHNIQUE: All CT scans at this facility use at least one of these dose optimization techniques: Automated exposure control; mA and/or kV adjustment per patient size (includes targeted exams where dose is matched to clinical indication); or iterative reconstruction. Axial CT images of the head without contrast. COMPARISON: MRI head examination from 10/09/2022 FINDINGS: No acute intracranial hemorrhage, mass effect or midline shift. No hydrocephalus. Fuentes-white differentiation is maintained. Basal cisterns remain patent The calvarium appears intact. Bilateral maxillary and right sphenoid sinus mucosal thickening. Remaining visualized paranasal sinuses are grossly clear. IMPRESSION: No acute intracranial hemorrhage, mass effect or midline shift. JOB #: [id number] Final Signed by: Amor Trotter MD Signed (Electronic Signature): 01/23/2023 4:53 pm Vital Signs Most recent to oldest [Reference Range]: 1 2 Temperature Oral [35.8-37.3 Deg C] 36.8 Deg C (01/23/23 3:37 PM) Peripheral Pulse Rate [60-100 bpm] 99 bp m (01/23/23 5:30 PM) 131 bpm *HI* (01/23/23 3:37 PM) Respiratory Rate [12-24 br/min] 16 br/mi n (01/23/23 3:37 PM) Blood Pressure [90-140/60-90 mmHg] 125/8 6mmHg (01/23/23 5:30 PM) 153/90mmHg *HI* (01/23/23 3:37 PM) Mean Arterial Pressure, Cuff [70-110 mmH g] 99 mmHg (01/23/23 5:30 PM) 111 mmHg *HI* (01/23/23 3:37 PM) Mean Arterial Pressure Cuff 99 mmHg (01/23/23 5:30 PM) Weight Estimated 78 kg (01/23/23 3:37 PM) Body Mass Index Estimated 28.31 kg/m2 (01/23/23 3:37 PM) Height/Length Estimated 166 cm (01/23/23 3:37 PM) Social History Social History Type Response Tobacco Never tobacco user, Tobacco use status unknown Tobacco Use:. Sex Hospital Discharge Instructions Patient Education 01/23/2023 16:59:41 Community-Acquired Pneumonia, Adult Community-Acquired Pneumonia, Adult Pneumonia is a lung infection that causes inflammation and the buildup of mucus and fluids in the lungs. This may cause coughing and difficulty breathing. Community-acquired pneumonia is pneumonia that develops in people who are not, and have not recently been, in a hospital or other health care facility. Usually, pneumonia develops as a result of an illness that is caused by a virus, such as the commoncold and the flu (influenza). It can also be caused by bacteria or fungi. While the common cold andinfluenza can pass from person to person (are contagious), pneumonia itself is not considered contagious. What are the causes? This condition may be caused by: ??? Viruses. ??? Bacteria. ??? Fungi, such as molds or mushrooms. What increases the risk? The following factors may make you more likely to develop this condition: ??? Having certain medical conditions, such as: ??? A long-term (chronic) disease, which may include chronic obstructive pulmonary disease (COPD), asthma, heart failure, cystic fibrosis, diabetes, kidney disease, sickle cell disease, and human immunodeficiency virus (HIV). ??? A condition that increases the risk of breathing in (aspirating) mucus and other fluids from your mouth and nose. ??? A weakened body defense system (immune system). ??? Having had your spleen removed (splenectomy). The spleen is the organ that helps fight germs and infections. ??? Not cleaning your teeth and gums well (poor dental hygiene). ??? Using tobacco products. ??? Traveling to places where germs that cause pneumonia are present. ??? Being near certain animals, or animal habitats, that have germs that cause pneumonia. ??? Being older than 65 years of age. What are the signs or symptoms? Symptoms of this condition include: ??? A dry cough or a wet (productive) cough. ??? A fever. ??? Sweating or chills. ??? Chest pain, especially when breathing deeply or coughing. ??? Fast breathing, difficulty breathing, or shortness of breath. ??? Tiredness (fatigue). ??? Muscle aches. How is this diagnosed? This condition may be diagnosed based on your medical history or a physical exam. You may also havetests, including: ??? Chest X-rays. ??? Tests of the level of oxygen and other gases in your blood. ??? Tests of: ??? Your blood. ??? Mucus from your lungs (sputum). ??? Fluid around your lungs (pleural fluid). ??? Your urine. If your pneumonia is severe, other tests may be done to learn more about the cause. How is this treated? Treatment for this condition depends on many factors, such as the cause of your pneumonia, your medicines, and other medical conditions that you have. For most adults, pneumonia may be treated at home. In some cases, treatment must happen in a hospital and may include: ??? Medicines that are given by mouth (orally) or through an IV, including: ??? Antibiotic medicines, if bacteria caused the pneumonia. ??? Medicines that kill viruses (antiviral medicines), if a virus caused the pneumonia. ??? Oxygen therapy. Severe pneumonia, although rare, may require the following treatments: ??? Mechanical ventilation.This procedure uses a machine to help you breathe if you cannot breathe well on your own or maintain a safe level of blood oxygen. ??? Thoracentesis. This procedure removes any buildup of pleural fluid to help with breathing. Follow these instructions at home: Medicines ??? Take ylht-tre-lhngxjz and prescription medicines only as told by your health care provider. ??? Take cough medicine only if you have trouble sleeping. Cough medicine can prevent your body from removing mucus from your lungs. ??? If you were prescribed an antibiotic medicine, take it as told by your health care provider. Donot stop taking the antibiotic even if you start to feel better. Lifestyle ??? Do not drink alcohol. ??? Do not use any products that contain nicotine or tobacco, such as cigarettes, e-cigarettes, andchewing tobacco. If you need help quitting, ask your health care provider. ??? Eat a healthy diet. This includes plenty of vegetables, fruits, whole grains, low-fat dairy products, and lean protein. General instructions ??? Rest a lot and get at least 8 hours of sleep each night. ??? Sleep in a partly upright position at night. Place a few pillows under your head or sleep in a reclining chair. ??? Return to your normal activities as told by your health care provider. Ask your health care provider what activities are safe for you. ??? Drink enough fluid to keep your urine pale yellow. This helps to thin the mucus in your lungs. ??? If your throat is sore, gargle with a salt???water mixture 3???4 times a day or as needed. To make a salt???water mixture, completely dissolve ?1 tsp (3???6 g) of salt in 1 cup (237 mL) of warm water. ??? Keep all follow-up visits as told by your health care provider. This is important. How is this prevented? You can lower your risk of developing community-acquired pneumonia by: ??? Getting the pneumonia vaccine. There are different types and schedules of pneumonia vaccines. Ask your health care provider which option is best for you. Consider getting the pneumonia vaccine if: ??? You are older than 65 years of age. ??? You are 19???65 years of age and are receiving cancer treatment, have chronic lung disease, or have other medical conditions that affect your immune system. Ask your health care provider if this applies to you. ??? Getting your influenza vaccine every year. Ask your health care provider which type of vaccine is best for you. ??? Getting regular dental checkups. ??? Washing your hands often with soap and water for at least 20 seconds. If soap and water are notavailable, use hand programmer. Contact a health care provider if you have: ??? A fever. ??? Trouble sleeping because you cannot control your cough with cough medicine. Get help right away if: ??? Your shortness of breath becomes worse. ??? Your chest pain increases. ??? Your sickness becomes worse, especially if you are an older adult or have a weak immune system. ??? You cough up blood. These symptoms may represent a serious problem that is an emergency. Do not wait to see if the symptoms will go away. Get medical help right away. Call your local emergency services (911 in the [place] Do not drive yourself to the hospital. Summary ??? Pneumonia is an infection of the lungs. ??? Community-acquired pneumonia develops in people who have not been in the hospital. It can be caused by bacteria, viruses, or fungi. ??? This condition may be treated with antibiotics or antiviral medicines. ??? Severe pneumonia may require a hospital stay and treatment to help with breathing. This information is not intended to replace advice given to you by your health care provider. Make sure you discuss any questions you have with your health care provider. Document Revised: 11/22/2019 Document Reviewed: 11/22/2019 [employer] Patient Education ?? 2022 [employer] 01/23/2023 16:59:36 Migraine Headache Migraine Headache A migraine headache is an intense, throbbing pain on one side or both sides of the head. Migraine headaches may also cause other symptoms, such as nausea, vomiting, and sensitivity to light and noise. A migraine headache can last from 4 hours to 3 days. Talk with your doctor about what things may bring on (trigger) your migraine headaches. What are the causes? The exact cause of this condition is not known. However, a migraine may be caused when nerves in the brain become irritated and release chemicals that cause inflammation of blood vessels. This inflammation causes pain. This condition may be triggered or caused by: ??? Drinking alcohol. ??? Smoking. ??? Taking medicines, such as: ??? Medicine used to treat chest pain (nitroglycerin). ??? control pills. ??? Estrogen. ??? Certain blood pressure medicines. ??? Eating or drinking products that contain nitrates, glutamate, aspartame, or tyramine. Aged cheeses, chocolate, or caffeine may also be triggers. ??? Doing physical activity. Other things that may trigger a migraine headache include: ??? Menstruation. ??? . ??? Hunger. ??? Stress. ??? Lack of sleep or too much sleep. ??? Weather changes. ??? Fatigue. What increases the risk? The following factors may make you more likely to experience migraine headaches: ??? Being a certain age. This condition is more common in people who are 25???55 years old. ??? Being female. ??? Having a family history of migraine headaches. ??? Being . ??? Having a mental health condition, such as depression or anxiety. ??? Being obese. What are the signs or symptoms? The main symptom of this condition is pulsating or throbbing pain. This pain may: ??? Happen in any area of the head, such as on one side or both sides. ??? Interfere with daily activities. ??? Get worse with physical activity. ??? Get worse with exposure to bright lights or loud noises. Other symptoms may include: ??? Nausea. ??? Vomiting. ??? Dizziness. ??? General sensitivity to bright lights, loud noises, or smells. Before you get a migraine headache, you may get warning signs (an aura). An aura may include: ??? Seeing flashing lights or having blind spots. ??? Seeing bright spots, halos, or zigzag lines. ??? Having tunnel vision or blurred vision. ??? Having numbness or a tingling feeling. ??? Having trouble talking. ??? Having muscle weakness. Some people have symptoms after a migraine headache (postdromal phase), such as: ??? Feeling tired. ??? Difficulty concentrating. How is this diagnosed? A migraine headache can be diagnosed based on: ??? Your symptoms. ??? A physical exam. ??? Tests, such as: ??? CT scan or an MRI of the head. These imaging tests can help rule out other causes of headaches. ??? Taking fluid from the spine (lumbar puncture) and analyzing it (cerebrospinal fluid analysis, or CSF analysis). How is this treated? This condition may be treated with medicines that: ??? Relieve pain. ??? Relieve nausea. ??? Prevent migraine headaches. Treatment for this condition may also include: ??? Acupuncture. ??? Lifestyle changes like avoiding foods that trigger migraine headaches. ??? Biofeedback. ??? Cognitive behavioral therapy. Follow these instructions at home: Medicines ??? Take gbpx-xtt-ushdhgn and prescription medicines only as told by your health care provider. ??? Ask your health care provider if the medicine prescribed to you: ??? Requires you to avoid driving or using heavy machinery. ??? Can cause constipation. You may need to take these actions to prevent or treat constipation: ??? Drink enough fluid to keep your urine pale yellow. ??? Take mrxj-npm-pilhbwc or prescription medicines. ??? Eat foods that are high in fiber, such as beans, whole grains, and fresh fruits and vegetables. ??? Limit foods that are high in fat and processed sugars, such as fried or sweet foods. Lifestyle ??? Do not drink alcohol. ??? Do not use any products that contain nicotine or tobacco, such as cigarettes, e-cigarettes, andchewing tobacco. If you need help quitting, ask your health care provider. ??? Get at least 8 hours of sleep every night. ??? Find ways to manage stress, such as meditation, deep breathing, or yoga. General instructions ??? Keep a journal to find out what may trigger your migraine headaches. For example, write down: ??? What you eat and drink. ??? How much sleep you get. ??? Any change to your diet or medicines. ??? If you have a migraine headache: ??? Avoid things that make your symptoms worse, such as bright lights. ??? It may help to lie down in a dark, quiet room. ??? Do not drive or use heavy machinery. ??? Ask your health care provider what activities are safe for you while you are experiencing symptoms. ??? Keep all follow-up visits as told by your health care provider. This is important. Contact a health care provider if: ??? You develop symptoms that are different or more severe than your usual migraine headache symptoms. ??? You have more than 15 headache days in one month. Get help right away if: ??? Your migraine headache becomes severe. ??? Your migraine headache lasts longer than 72 hours. ??? You have a fever. ??? You have a stiff neck. ??? You have vision loss. ??? Your muscles feel weak or like you cannot control them. ??? You start to lose your balance often. ??? You have trouble walking. ??? You faint. ??? You have a seizure. Summary ??? A migraine headache is an intense, throbbing pain on one side or both sides of the head. Migraines may also cause other symptoms, such as nausea, vomiting, and sensitivity to light and noise. ??? This condition may be treated with medicines and lifestyle changes. You may also need to avoid certain things that trigger a migraine headache. ??? Keep a journal to find out what may trigger your migraine headaches. ??? Contact your health care provider if you have more than 15 headache days in a month or you develop symptoms that are different or more severe than your usual migraine headache symptoms. This information is not intended to replace advice given to you by your health care provider. Make sure you discuss any questions you have with your health care provider. Document Revised: 06/03/2019 Document Reviewed: 03/24/2019 [employer] Patient Education ?? 2022 [employer] Follow Up Care 01/23/2023 15:37:32 With:Tylenol/Motrin for Pain/Fever Relief Address:Unknown When:1 month With:Drink Fluids Address:Unknown When:1 month With:KEVEN PURI DNP Address: [address] [address]- When:1 month Physician Emergency department Note * TRISHA Chavez: PERFORM Event Display: ED Note Physician Authored Date: [id number] KIANA ISABEL I :1990 Age:32 years Sex:Female Visit Date:01/23/2023 Primary Care Physician: KEVEN PURI DNP Basic Information Time Seen: TRISHA Chavez / 01/23/2023 15:42 Chief Complaint Pt arrives with complaints of severe L sided headache and weakness in both legs. Pt had labs drawnstoday per request of PCP and D dimer of 683. Pt tested positive for COVID 18 days ago. History Of Present Illness: Patient is a 32-year-old female with??PMH including POTS??who was sent here by her PCP for concernsof elevated D-dimer. ??She explains for the past 3 days she has been experiencing a left-sided??headache that is currently an 8 out of 10 pain. ??Explains that has a history of migraines but they have never been this persistent??and this painful. ??She has taken all of??her medications at home which typically help??with the pain but has had no relief. ??States that she is also having left-sided neck pain pain??along the left scapula that began yesterday. Evaluated by her PCP for these concerns and had blood work done. Denies any chest pain, dyspnea??cough or hemoptysis. denies - negative test on 4 days ago. Tested positive for COVID 19 days ago- did not have these symptoms at that time. Review of Systems: See HPI Physical Exam Vitals & Measurements T:??36.8?C ??(Oral)?? HR:??99??(Peripheral)?? RR:??16?? BP:??125/86?? SpO2:??100%?? HT:??166??cm?? WT:??78??kg??(Estimated)?? BMI:??28.31?? Pain Score:??8?? O2 Therapy:??Room air?? General: Patient is alert and engaging, appears well. Is in no acute distress. Speaking comfortablyin full sentences.?? Constitutional: No fevers, chills or diaphoresis.?? HEENT: Head normocephalic and atraumatic. Neck supple with FROM w/o lymphadenopathy or JVD. Tracheamidline. No c-spine tenderness. EOMs intact w/o pain. Pupils equal and reactive to light. TMs visualized bilaterally with normal color and landmarks present w/o erythema or effusion.?? Respiratory: ??No obvious work of breathing, regular rate. BS equal b/l, clear to auscultation. Cardiovascular: Heart regular rate and rhythm w/o murmurs, rubs or gallops. No peripheral edema present.?? GI: normoactive BS. Abdomen soft non tender, nondistended without guarding, rebound or rigidity. NoHSM Extremities: No obvious deformities. FROM.?? Integumentary: Skin warm and pink. No rashes or ecchymosis present.?? Neuro: CN III-XII grossly intact.?? Psychiatric: acting appropriate for age and circumstance. Normal mood without obvious ??affect.?? Medical Decision Making: Patient is a pleasant 32-year-old??female here for concern of??elevated D-dimer. ??Labs were done at her PCPs office for??this headache??that she has had for the past??3 days.?? Vitals here obtained and reviewed. ??Patient is tachycardic at 131. ??Has a history of POTS but is typically not??this elevated. ??Says her resting heart rate is around 110.?? She was given??fluids. Because of??her elevated D-dimer??I did obtain a??CT angio of the chest.?? Additionally??a??head CTwas obtained because of??this headache that was described as worse than her typical migraines. Head CT??did not show any evidence of intracranial hemorrhage,??mass effect??or midline shift on CTof the head.?? There is no evidence of a PE on the CT angiogram however??a right lower lobe pneumonia was present.?? Patient is in no respiratory distress and hemodynamically stable with??CURB-65 of zero so I feel of patient??treatment was appropriate. ??Will start her on amoxicillin and doxycycline. She was also given abortive therapy for??her migraine while in the emergency department. Procedure No Qualifying Data Assessment/Plan 1.??Pneumonia??J18.9 Prescription sent for amoxicillin and doxycycline and first dose was given here.?? Supportive care discussed. ??Will have close PCP follow-up and strict return precautions understood. Ordered: amoxicillin 500 mg oral tablet, 1,000 mg = 2 tab, Oral, TID, X 5 days, # 30 tab, 0 Refill(s), 01/28/23 17:13:00 EST, Pharmacy: [id number], 165.1, cm, 12/10/22 8:12:00 EDT, Height Discharge Patient, 01/23/23 18:03:00 EST ?? 2.??Migraine headache??G43.909 Ordered: Discharge Patient, 01/23/23 18:03:00 EST ?? Orders: doxycycline hyclate 100 mg oral capsule, 100 mg = 1 cap, Oral, BID, X 7 days, # 14 cap, 0 Refill(s), 01/30/23 17:16:00 EST, Pharmacy: [id number], 165.1, cm, 12/10/22 8:12:00 EDT, Height Toradol, 30 mg = 1 mL, IV, Vial, Once, First Dose: 01/23/23 18:00:00 EST, Stop Date: 01/23/23 18:00:00 EST, Physician Stop, Routine Patient Education Community-Acquired Pneumonia, Adult Migraine Headache Follow Up With When Contact Information Tylenol/Motrin for Pain/Fever Relief Within 1 month Additional Instructions: Drink Fluids Within 1 month Additional Instructions: JAXSON DNP, KEVEN Within 1 month [place] [phone]- Additional Instructions: Medication Reconciliation New Prescription amoxicillin (amoxicillin 500 mg oral tablet)2 tab Oral (given by mouth) 3 times a day for 5 Days. Refills: 0. ?? doxycycline (doxycycline hyclate 100 mg oral capsule)1 Capsules Oral (given by mouth) 2 times a dayfor 7 Days. Refills: 0. ?? Unchanged albuterol (Ventolin HFA 90 mcg/inh inhalation aerosol)18 g, INHALE 2 PUFFS BY MOUTH EVERY 6 HOURS NEEDED FOR SHORTNESS OF BREATH OR WHEEZING. ?? amitriptyline (amitriptyline 10 mg oral tablet)1 tab Oral (given by mouth) every night at bedtime RT. Taken 10 mg at bedtime. Refills: 3. ?? dupilumab (Dupixent Pre-filled Pen 300 mg/2 mL subcutaneous solution)300 Milligrams Subcutaneous (under the skin) every other week. rotate injection sites. ?? dupilumab (Dupixent Pre-filled Syringe 300 mg/2 mL subcutaneous solution)4 unknown unit, 0 Refill(s). ?? fluticasone/umeclidinium/vilanterol (Trelegy Ellipta 200 mcg-62.5 mcg-25 [...] (LORazepam 0.5 mg oral tablet)2 EA, 0 Refill(s), TAKE ONE TABLET BY MOUTH 1 HOUR PRIOR TOPROCEDURE AND REPEAT DOSE IMMEDIATELY PRIOR TO PROCEDURE. ?? montelukast (montelukast 10 mg oral tablet)1 tab Oral (given by mouth) every day. Problem List/Past Medical History Ongoing Anemia Anxiety Asthma Cervical spondylosis Insomnia Menstrual abnormality Migraine headache with aura Migraine with aura, not intractable, without status migrainosus Neck pain Neuroforaminal stenosis of cervical spine Paresthesias POTS (postural orthostatic tachycardia syndrome) Sleep apnea Historical No qualifying data Medication Administration Given Sodium Chloride 0.9%, 1000 mL, Hydration Bolus acetaminophen, 1000 mg, IV Piggyback amoxicillin, 1000 mg, Oral. For: Pneumonia diphenhydrAMINE, 25 mg, IV Push doxycycline, 100 mg, Oral. For: Pneumonia ondansetron, 4 mg, IV Push Allergies Banana [place] Symbicort vancomycin Cats??(Unknown) Dogs??(Unknown) Dust??(Unknown) Tape budesonide-formoterol??(Unknown) formoterol??(Unknown) formoterol-mometasone??(Unknown) Social History Alcohol Never Electronic Cigarette/Vaping Electronic Cigarette Use: Never, Unknown/not obtained. Tobacco Never tobacco user, Tobacco use status unknown Tobacco Use:. Family History Hypertension: Father. Diagnostic Results CT Angio Chest 01/23/2023 17:[address] Head w/o Contrast 01/23/2023 16:[address] Spine Cervical w/o Contrast 01/23/2023 17:[address] Angio Chest ?? 01/23/23 17:02:01 EXAM DESCRIPTION: CT Angio Chest ?? 01/23/2023 ?? INDICATION: SOB ?? TECHNIQUE: All CT scans at this [...] Isovue 370 contrast was utilized ?? COMPARISON: None ?? FINDINGS: Normal opacification of the right ventricular outflow tract, main pulmonary arteries and segmental pulmonary arteries with no evidence of pulmonary embolism. No evidence of thoracic aortic dissection. ?? Patchy areas of infiltrate in the right lower lobe consistent with pneumonia, most pronounced in the superior segment. Lungs otherwise clear. No significant emphysematous changes. No central endobronchial filling defect identified ?? No pleural effusion or pneumothorax ?? No mediastinal, hilar or axillary adenopathy. No pericardial effusion. ?? No mass or adenopathy in the visualized upper abdomen ?? No suspicious regional osseous lesions. ?? IMPRESSION: No evidence of pulmonary embolism ?? Right lower lobe pneumonia. ? JOB #: [id number] Electronically Signed By: ?? Signed By: Amor Trotter MD ?? CT Spine Cervical w/o Contrast ?? 01/23/23 16:57:30 EXAM DESCRIPTION: CT Spine Cervical w/o Contrast ?? 01/23/2023 ?? INDICATION: NECK PAIN ?? TECHNIQUE: All CT scans at this facility use at least one of these dose optimization techniques: Automated exposure control; mA and/or kV adjustment per patient size (includes targeted exams where dose is matched to clinical indication); or iterative reconstruction. ?? CT examination of the cervical spine with thin section axial images including sagittal and coronal MPR images performed on a separate workstation under concurrent supervision. ?? COMPARISON: MRI cervical spine examination from 08/21/2022 ?? FINDINGS: No acute fracture or subluxation. Mild reversal of cervical lordosis which was seen on prior MRI examination. Mild posterior endplate osteophyte formation at C4-5 and C5-6 consistent with mild spondylotic changes. No significant osseous encroachment on the cervical spinal canal. No focal lytic or sclerotic lesion. ?? Paraspinal soft tissues are unremarkable. Mild biapical lung scarring. Visualized lung bases are otherwise clear. ?? IMPRESSION: No acute fracture or subluxation ?? Mild spondylotic changes. ? JOB #: [id number] Electronically Signed By: ?? Signed By: Amor Trotter MD ?? CT Head w/o Contrast ?? 01/23/23 16:53:39 EXAM DESCRIPTION: CT Head w/o Contrast ?? 01/23/2023 ?? INDICATION: HEADACHE ?? TECHNIQUE: All CT scans at this facility use at least one of these dose optimization techniques: Automated exposure control; mA and/or kV adjustment per patient size (includes targeted exams where dose is matched to clinical indication); or iterative reconstruction. ?? Axial CT images of the head without contrast. ?? COMPARISON: MRI head examination from 10/09/2022 ?? FINDINGS: No acute intracranial hemorrhage, mass effect or midline shift. No hydrocephalus. Fuentes-white differentiation is maintained. Basal cisterns remain patent ?? The calvarium appears intact. ?? Bilateral maxillary and right sphenoid sinus mucosal thickening. Remaining visualized paranasal sinuses are grossly clear. ?? IMPRESSION: No acute intracranial hemorrhage, mass effect or midline shift. ? JOB #: [id number] Rebekah Rowe, PA Emergency department Discharge instructions * TRISHA Chavez: PERFORM Event Display: ED Discharge Information Authored Date: [id number] KIANA ISABEL I :1990 Age:32 years Sex:Female Visit Date:01/23/2023 Primary Care Physician: KEVEN PURI DNP Discharge Instructions We would like to thank you for allowing us to assist you with your healthcare needs. The following includes patient education materials and information regarding your injury/illness. Diagnosis from Today's Visit Pneumonia Migraine headache Discharge Vitals Temperature??(Oral) 98.2 ??F (36.8 ??C) Heart Rate??(Peripheral) 131 Respiratory Rate?? 16 Blood Pressure?? 153/90?? Height?? 65.35 in (166 cm) Weight??(Estimated) 171.99 lb (78 kg) BMI?? 28.31 Allergies Banana [place] Symbicort vancomycin Cats??(Unknown) Dogs??(Unknown) Dust??(Unknown) Tape budesonide-formoterol??(Unknown) formoterol??(Unknown) formoterol-mometasone??(Unknown) What to Do Next Instructions from Your Care Team Your evaluated today because he had elevated D-dimer. ??Fortunately there is no evidence of a PE onyour??chest CT. ??There??was pneumonia present.?? Otherwise your labs and head CT??were unremarkable. ??You were given your first dose of antibiotics while you are here and the rest of the prescription has been sent to pharmacy. ??Please??complete them as prescribed. ??Have close follow-up with your PCP I would like??you be evaluated in the next 3 to 5 days. ??Please return to the emergency room with any??worsening cough, chest pain/shortness of breath??or fevers. You Need to Schedule the Following Appointments Follow Up with??Tylenol/Motrin for Pain/Fever Relief When:??Within 1 month Follow Up with??Drink Fluids When:??Within 1 month Follow Up with??KEVEN PURI DNP When:??Within 1 month Where: [address] [address]- Upcoming Scheduled Appointments 2023 8:00 AM EST ?? With: Mario Gomez MD Where: [facility] Neurology Status: Confirmed You were treated [...] Much When Why Instructions Next Dose New amoxicillin (amoxicillin 500 mg oral tablet) 2 tab Oral (given by mouth) 3 times a day Pneumonia Duration: 5 Days Pickup at [facility] New doxycycline (doxycycline hyclate 100 mg oral capsule) 1 Capsules Oral (given by mouth) 2 times a day Duration: 7 Days Pickup at [facility] Unchanged albuterol (Ventolin HFA 90 mcg/ inh inhalation aerosol) 18 g, INHALE 2 PUFFS BY MOUTH EVERY 6 HOURS NEEDED FOR SHORTNESS OF BREATH OR WHEEZING ?? Unchanged amitriptyline (amitriptyline 10 mg oral tablet) 1 tab Oral (given by mouth) Every night at bedtime RT Migraine with aura, not intractable, without status migrainosus Numbness Tingling Taken 10 mg at bedtime ?? Unchanged dupilumab (Dupixent Pre-filled Pen 300 [...] 0.5 mg oral tablet) 2 EA, 0 Refill(s), TAKE ONE TABLET BY MOUTH 1 HOUR PRIOR TO PROCEDURE AND REPEAT DOSE IMMEDIATELY PRIOR TO PROCEDURE ?? Unchanged montelukast (montelukast 10 mg oral tablet) 1 tab Oral (given by mouth) Every day Pharmacy Information [facility]: [id number] [facility] [place] [phone] Education Materials Community-Acquired Pneumonia, Adult Pneumonia is a lung infection that causes inflammation and the buildup of mucus and fluids in the lungs. This may cause coughing and difficulty breathing. Community-acquired pneumonia is pneumonia that develops in people who are not, and have not recently been, in a hospital or other health care facility. Usually, pneumonia develops as a result of an illness that is caused by a virus, such as the commoncold and the flu (influenza). It can also be caused by bacteria or fungi. While the common cold andinfluenza can pass from person to person (are contagious), pneumonia itself is not considered contagious. What are the causes? This condition may be caused by: ? Viruses. ? Bacteria. ? Fungi, such as molds or mushrooms. What increases the risk? The following factors may make you more likely to develop this condition: ? Having certain medical conditions, such as: ? A long-term (chronic) disease, which may include chronic obstructive pulmonary disease (COPD), asthma, heart failure, cystic fibrosis, diabetes, kidney disease, sickle cell disease, and human immunodeficiency virus (HIV). ? A condition that increases the risk of breathing in (aspirating) mucus and other fluids from your mouth and nose. ? A weakened body defense system (immune system). ? Having had your spleen removed (splenectomy). The spleen is the organ that helps fight germs and infections. ? Not cleaning your teeth and gums well (poor dental hygiene). ? Using tobacco products. ? Traveling to places where germs that cause pneumonia are present. ? Being near certain animals, or animal habitats, that have germs that cause pneumonia. ? Being older than 65 years of age. What are the signs or symptoms? Symptoms of this condition include: ? A dry cough or a wet (productive) cough. ? A fever. ? Sweating or chills. ? Chest pain, especially when breathing deeply or coughing. ? Fast breathing, difficulty breathing, or shortness of breath. ? Tiredness (fatigue). ? Muscle aches. How is this diagnosed? This condition may be diagnosed based on your medical history or a physical exam. You may also havetests, including: ? Chest X-rays. ? Tests of the level of oxygen and other gases in your blood. ? Tests of: ? Your blood. ? Mucus from your lungs (sputum). ? Fluid around your lungs (pleural fluid). ? Your urine. If your pneumonia is severe, other tests may be done to learn more about the cause. How is this treated? Treatment for this condition depends on many factors, such as the cause of your pneumonia, your medicines, and other medical conditions that you have. For most adults, pneumonia may be treated at home. In some cases, treatment must happen in a hospital and may include: ? Medicines that are given by mouth (orally) or through an IV, including: ? Antibiotic medicines, if bacteria caused the pneumonia. ? Medicines that kill viruses (antiviral medicines), if a virus caused the pneumonia. ? Oxygen therapy. Severe pneumonia, although rare, may require the following treatments: ? Mechanical ventilation.This procedure uses a machine to help you breathe if you cannot breathe wellon your own or maintain a safe level of blood oxygen. ? Thoracentesis. This procedure removes any buildup of pleural fluid to help with breathing. Follow these instructions at home: Medicines ? Take dqsp-jhc-gfwtxid and prescription medicines only as told by your health care provider. ? Take cough medicine only if you have trouble sleeping. Cough medicine can prevent your body from removing mucus from your lungs. ? If you were prescribed an antibiotic medicine, take it as told by your health care provider. Do notstop taking the antibiotic even if you start to feel better. Lifestyle ? Do not drink alcohol. ? Do not use any products that contain nicotine or tobacco, such as cigarettes, e- cigarettes, and chewing tobacco. If you need help quitting, ask your health care provider. ? Eat a healthy diet. This includes plenty of vegetables, fruits, whole grains, low-fat dairy products, and lean protein. General instructions ? Rest a lot and get at least 8 hours of sleep each night. ? Sleep in a partly upright position at night. Place a few pillows under your head or sleep in a reclining chair. ? Return to your normal activities as told by your health care provider. Ask your health care provider what activities are safe for you. ? Drink enough fluid to keep your urine pale yellow. This helps to thin the mucus in your lungs. ? If your throat is sore, gargle with a salt???water mixture 3???4 times a day or as needed. To make a salt???water mixture, completely dissolve ?1 tsp (3???6 g) of salt in 1 cup (237 mL) of warm water. ? Keep all follow-up visits as told by your health care provider. This is important. How is this prevented? You can lower your risk of developing community-acquired pneumonia by: ? Getting the pneumonia vaccine. There are different types and schedules of pneumonia vaccines. Ask your health care provider which option is best for you. Consider getting the pneumonia vaccine if: ? You are older than 65 years of age. ? You are 19???65 years of age and are receiving cancer treatment, have chronic lung disease, or haveother medical conditions that affect your immune system. Ask your health care provider if this applies to you. ? Getting your influenza vaccine every year. Ask your health care provider which type of vaccine is best for you. ? Getting regular dental checkups. ? Washing your hands often with soap and water for at least 20 seconds. If soap and water are not available, use hand programmer. Contact a health care provider if you have: ? A fever. ? Trouble sleeping because you cannot control your cough with cough medicine. Get help right away if: ? Your shortness of breath becomes worse. ? Your chest pain increases. ? Your sickness becomes worse, especially if you are an older adult or have a weak immune system. ? You cough up blood. These symptoms may represent a serious problem that is an emergency. Do not wait to see if the symptoms will go away. Get medical help right away. Call your local emergency services (911 in the [place] Do not drive yourself to the hospital. Summary ? Pneumonia is an infection of the lungs. ? Community-acquired pneumonia develops in people who have not been in the hospital. It can be causedby bacteria, viruses, or fungi. ? This condition may be treated with antibiotics or antiviral medicines. ? Severe pneumonia may require a hospital stay and treatment to help with breathing. This information is not intended to replace advice given to you by your health care provider. Make sure you discuss any questions you have with your health care provider. Document Revised: 11/22/2019 Document Reviewed: 11/22/2019 [employer] Patient Education ?? 2022 [employer] Migraine Headache A migraine headache is an intense, throbbing pain on one side or both sides of the head. Migraine headaches may also cause other symptoms, such as nausea, vomiting, and sensitivity to light and noise. A migraine headache can last from 4 hours to 3 days. Talk with your doctor about what things may bring on (trigger) your migraine headaches. What are the causes? The exact cause of this condition is not known. However, a migraine may be caused when nerves in the brain become irritated and release chemicals that cause inflammation of blood vessels. This inflammation causes pain. This condition may be triggered or caused by: ? Drinking alcohol. ? Smoking. ? Taking medicines, such as: ? Medicine used to treat chest pain (nitroglycerin). ? control pills. ? Estrogen. ? Certain blood pressure medicines. ? Eating or drinking products that contain nitrates, glutamate, aspartame, or tyramine. Aged cheeses,chocolate, or caffeine may also be triggers. ? Doing physical activity. Other things that may trigger a migraine headache include: ? Menstruation. ? . ? Hunger. ? Stress. ? Lack of sleep or too much sleep. ? Weather changes. ? Fatigue. What increases the risk? The following factors may make you more likely to experience migraine headaches: ? Being a certain age. This condition is more common in people who are 25???55 years old. ? Being female. ? Having a family history of migraine headaches. ? Being . ? Having a mental health condition, such as depression or anxiety. ? Being obese. What are the signs or symptoms? The main symptom of this condition is pulsating or throbbing pain. This pain may: ? Happen in any area of the head, such as on one side or both sides. ? Interfere with daily activities. ? Get worse with physical activity. ? Get worse with exposure to bright lights or loud noises. Other symptoms may include: ? Nausea. ? Vomiting. ? Dizziness. ? General sensitivity to bright lights, loud noises, or smells. Before you get a migraine headache, you may get warning signs (an aura). An aura may include: ? Seeing flashing lights or having blind spots. ? Seeing bright spots, halos, or zigzag lines. ? Having tunnel vision or blurred vision. ? Having numbness or a tingling feeling. ? Having trouble talking. ? Having muscle weakness. Some people have symptoms after a migraine headache (postdromal phase), such as: ? Feeling tired. ? Difficulty concentrating. How is this diagnosed? A migraine headache can be diagnosed based on: ? Your symptoms. ? A physical exam. ? Tests, such as: ? CT scan or an MRI of the head. These imaging tests can help rule out other causes of headaches. ? Taking fluid from the spine (lumbar puncture) and analyzing it (cerebrospinal fluid analysis, or CSF analysis). How is this treated? This condition may be treated with medicines that: ? Relieve pain. ? Relieve nausea. ? Prevent migraine headaches. Treatment for this condition may also include: ? Acupuncture. ? Lifestyle changes like avoiding foods that trigger migraine headaches. ? Biofeedback. ? Cognitive behavioral therapy. Follow these instructions at home: Medicines ? Take srbo-anl-zrfrunu and prescription medicines only as told by your health care provider. ? Ask your health care provider if the medicine prescribed to you: ? Requires you to avoid driving or using heavy machinery. ? Can cause constipation. You may need to take these actions to prevent or treat constipation: ? Drink enough fluid to keep your urine pale yellow. ? Take hlvs-kna-tzluoeg or prescription medicines. ? Eat foods that are high in fiber, such as beans, whole grains, and fresh fruits and vegetables. ? Limit foods that are high in fat and processed sugars, such as fried or sweet foods. Lifestyle ? Do not drink alcohol. ? Do not use any products that contain nicotine or tobacco, such as cigarettes, e- cigarettes, and chewing tobacco. If you need help quitting, ask your health care provider. ? Get at least 8 hours of sleep every night. ? Find ways to manage stress, such as meditation, deep breathing, or yoga. General instructions ? Keep a journal to find out what may trigger your migraine headaches. For example, write down: ? What you eat and drink. ? How much sleep you get. ? Any change to your diet or medicines. ? If you have a migraine headache: ? Avoid things that make your symptoms worse, such as bright lights. ? It may help to lie down in a dark, quiet room. ? Do not drive or use heavy machinery. ? Ask your health care provider what activities are safe for you while you are experiencing symptoms. ? Keep all follow-up visits as told by your health care provider. This is important. Contact a health care provider if: ? You develop symptoms that are different or more severe than your usual migraine headache symptoms. ? You have more than 15 headache days in one month. Get help right away if: ? Your migraine headache becomes severe. ? Your migraine headache lasts longer than 72 hours. ? You have a fever. ? You have a stiff neck. ? You have vision loss. ? Your muscles feel weak or like you cannot control them. ? You start to lose your balance often. ? You have trouble walking. ? You faint. ? You have a seizure. Summary ? A migraine headache is an intense, throbbing pain on one side or both sides of the head. Migraines may also cause other symptoms, such as nausea, vomiting, and sensitivity to light and noise. ? This condition may be treated with medicines and lifestyle changes. You may also need to avoid certain things that trigger a migraine headache. ? Keep a journal to find out what may trigger your migraine headaches. ? Contact your health care provider if you have more than 15 headache days in a month or you develop symptoms that are different or more severe than your usual migraine headache symptoms. This information is not intended to replace advice given to you by your health care provider. Make sure you discuss any questions you have with your health care provider. Document Revised: 06/03/2019 Document Reviewed: 03/24/2019 [employer] Patient Education ?? 2022 [employer] Tests Performed Radiology CT Angio Chest 01/23/2023 17:[address] Head w/o Contrast 01/23/2023 16:[address] Spine Cervical w/o Contrast 01/23/2023 17:00 EST Medications and Immunizations Administered Given Sodium Chloride 0.9%, 1000 mL, Hydration Bolus acetaminophen, 1000 mg, IV Piggyback amoxicillin, 1000 mg, Oral. For: Pneumonia diphenhydrAMINE, 25 mg, IV Push doxycycline, 100 mg, Oral. For: Pneumonia ondansetron, 4 mg, IV Push Patient/Analytical Lead Signature Patient Name:KIANA ISABEL I I have received this information and my questions have been answered. Patient/Analytical Lead Name: Patient/Analytical Lead Signature: Relationship to Patient: Witness Name/Signature: Date: Electronically Signed on: 01/23/2023 18:03 ESTSigned by:CHAZ Patient Care team information Care Team Personnel Name: KEVEN PURI DNP Position: No Access Member Role: Primary Care Physician Address: Address: [address] [address] Name: Marvin Meredith Position: Nurse Member Role: Registered Nurse Name: TRISHA Chavez Position: Physician Member Role: Physician Address: Address: [address] [place] [id number] Care Team Related Persons Name: JOAQUIM MCCOY Address: Home [address] [place] [address], [place] [id number] [facility] Name: JENIFFER GALLEGOS
--- OUTSIDE RECORDS SUMMARY | 2023-10-31 10:22 | XMS_ITS | Encounter Summary ---
Author Organization [facility] Address [address] [place] [address] Care Team Providers Care Cylindrical Mixer Name Role Phone Nadja Doan PASCALE Primary Care Provider [phone] Butch Yanes MD Unavailable [phone] Encounter Details Date Type Department Care Team (Late st Contact Info) Description 10/23/2021 Lab Requisition [facility] Pathology & Laboratory Medicine - [address] [address] Peggy Steen MD [address] [place] [address] Encounter for other general examination Social History Tobacco Use Types Packs/Day Years [...] Procedure Name Priority Date/Time Associated Diagnosis Comments PAP TEST Today 10/22/2021 10:10 EDT Encounter for other general examination HPV DNA DETECTION WITH GENOTYPING, PCR Today 10/22/2021 10:10 EDT Encounter for other general examination documented in this encounter Results * (ABNORMAL) HUMAN PAPILLOMAVIRUS (HPV) DETECTION-HIGH RISK TYPES (10/22/2021 10:10 EDT) HPV other High Risk types, PCR Positive(A ) Negative 11/01/2021 12:57 EDT [facility] Papanicolaou smear specimen (specimen) CERVIX UTERI STRUCTURE / Unknown 10/22/2021 10:10 EDT 10/30/2021 11:53 EDT Peggy Steen MD MICROBIOLOGY - GENER AL ORDERABLES [facility] [address] [place] [address] * PAP TEST (10/22/2021 10:10 EDT) Specimens A. Cervix and/or Endocervix , ThinPrep Imaging System with Manual Evaluation 11/01/2021 12:57 EDT [facility] Specimen Adequacy Satisfactory for Evaluation - transformation zone component present 11/01/2021 12:57 T [facility] General Categorization Epithelial Cell Abnormality 11/01/2021 12:57 T [facility] Descriptive Diagnosis Squamous Cell Abnormality - Low grade squamous intraepithelial lesion (LSIL). 11/01/2021 12:57 T [facility] Educational Comments [facility] recommends following the ASCCP's management guidelines which may be found at www.asccp.org 11/01/2021 12:57 [facility] Attestation By the signature below, the attending physician certifies that they have personally conducted a gross and/or microscopic examination of the described specimens and rendered or confirmed the above diagnosis. 11/01/2021 12:57 [facility] at 1257 Clinical History See below 11/02/19 12:57 [facility] HPV The result for the Human Papillomavirus (HPV) Detection-High Risk Types is Positive . E6 OR E7 mRNA from one or more types of HPV types 16,18,31,33,35,39 ,45,51,52,56,58,5 9,66, and 68 is detected by msw mediated amplification. High and intermediate risk HPV types are associated with most squamous intraepithelial lesions and cervical cancers. Testing was performed on specimen [id number] and was resulted on 11/01/2021 1254 EDT by DAMION, LAB INSTRUMENT RESULTS IN 11/01/2021 12:57 EDT [facility] Performing Lab [facility] 11/01/2021 12:57 EDT [facility] Scanned Images 11/01/2021 12:57 EDT [facility] Papanicolaou smear specimen (specimen) CERVIX UTERI STRUCTURE / Unknown 10/22/2021 10:10 EDT 10/23/2021 10:10 EDT Peggy Steen MD PATHOLOGY ORDERABLES [facility] [address] [place] [address] documented in this encounter Visit Diagnoses Diagnosis Encounter for other general examination documented in this encounter Care Teams Cylindrical Mixer Relationship Specialty Start Date End Date Nadja Doan FNP [address] [place], [place] [address] PCP - General 12/24/18 Butch Yanes MD [address] [place] [phone] 12/24/18 documented as of this encounter
--- OUTSIDE RECORDS SUMMARY | 2023-10-31 10:22 | XMS_ITS | Continuity of Care Document ---
Author Organization [facility] Address [address] [place] [address] Care Team Providers Care Channel Sales Manager Name Role Phone Hieu Lombardi Primary Care Physician [phone] [id number] Date(s): 10/02/22 - 10/02/22 [facility] [address] [place] [address]- Discharge Disposition: Home Allergies, Adverse Reactions, Alerts Substance Reaction Severity Status vancomycin Mild Active formoterol Unknown Unknown Active budesonide-formoterol Unknown Unknown Active Symbicort Mild Active formoterol-mometasone Unknown Unknown Active Cats Unknown Unknown Active Dogs Unknown Unknown Active Tape Unknown Active Banana Mild Active Pender Mild Active Dust Unknown Unknown Active Assessment and Plan Future Appointments Future Scheduled Tests Radiology* MRI Brain w/ + w/o Contrast 10/09/22 Medications amitriptyline 10 mg oral tablet 10 [...] Role: Primary Care Physician Address: Address: [address] [place] [address] Care Team Related Persons Name: JOAQUIM MCCOY Address: Home [address] [place] [phone] [facility] Name: JENIFFER GALLEGOS Address: Home
--- OUTSIDE RECORDS SUMMARY | 2023-10-31 10:22 | XMS_ITS | Encounter Summary ---
Author Organization [facility] Address [address] [place] [address] Care Team Providers Care Contracting Manager Name Role Phone LilianNadja bolivar PASCALE Primary Care Provider Butch Yanes MD Unavailable [phone] Encounter Details Date Type Department Care Team (Late st Contact Info) Description 03/13/2021 Lab Requisition [facility] Pathology & Laboratory Medicine - [address] [address] Sonya Franco [address] [place] [address] [facility] [address] Encounter for other general examination [...] Date/Time Associated Diagnosis Comments PAP TEST Today 03/13/2021 11:20 EST Encounter for other general examination CHLAMYDIA/N. GONORRHOEAE AMPLIFIED NUCLEIC ACID, THINPREP Today 03/13/2021 11:20 EST HPV DNA DETECTION WITH GENOTYPING, PCR Today 03/13/2021 11:20 EST Encounter for other general examination documented in this encounter Results * (ABNORMAL) HUMAN PAPILLOMAVIRUS (HPV) DETECTION-HIGH RISK TYPES (03/13/2021 11:20 EST) HPV other High Risk types, PCR Positive( A) Negative 03/25/2021 15:31 EST [facility] Comment:E6 OR E7 mRNA from o ne or more types of HPV types 16,18,31,33,35,39,45,51,52,56,58,59,66, and 68 is detected by research administrator mediated amplification. High and intermediate risk HPV types are associated with most squamous intraepithelial lesions and cervical cancers. Papanicolaou smear specimen (specimen) CERVIX UTERI STRUCTURE / Unknown 03/13/2021 11:20 EST 03/23/2021 12:52 EST Sonya Franco MICROBIOLOGY - GENER AL ORDERABLES Performing Organization Address City/State/[facility] Co de Phone Number [facility] [address] [place] [phone] * PAP TEST (03/13/2021 11:20 EST) Specimens A. Cervix and/or Endocervix , ThinPrep Imaging System with Manual Evaluation 03/25/2021 15:31 [facility] Specimen Adequacy Satisfactory for Evaluation - transformation zone component present 03/25/2021 15:31 [facility] General Categorization Epithelial Cell Abnormality 03/25/2021 15:31 [facility] Descriptive Diagnosis Squamous Cell Abnormality - Low grade squamous intraepithelial lesion (LSIL). 03/25/2021 15:31 [facility] Educational Comments [employer] recommends following ASCCP's 2012 Updated Consensus Guidelines for the Management of Abnormal Cervical Cancer Screening Tests and Cancer Precursors (JLGTD, 2013; 17(5):S1-S27). Consensus guidelines are available online at www.asccp.org. 03/25/2021 15:31 [facility] Attestation By the signature below, the attending physician certifies that they have personally conducted a gross and/or microscopic examination of the described specimens and rendered or confirmed the above diagnosis. 03/25/2021 15:31 [facility] at 1531 Clinical History See below 03/25/19 15:31 [facility] HPV The result for the Human Papillomavirus (HPV) Detection-High Risk Types is Positive . E6 OR E7 mRNA from one or more types of HPV types 16,18,31,33,35,39 ,45,51,52,56,58,5 9,66, and 68 is detected by research administrator mediated amplification. High and intermediate risk HPV types are associated with most squamous intraepithelial lesions and cervical cancers. Testing was performed on specimen [id number] and was resulted on 03/25/2021 1524 EST by DAMION, LAB INSTRUMENT RESULTS IN 03/25/2021 15:31 [facility] Performing Lab [facility] 03/25/2021 15:31 [facility] Scanned Images 03/25/2021 15:31 [facility] Papanicolaou smear specimen (specimen) CERVIX UTERI STRUCTURE / Unknown 03/13/2021 11:20 EST 03/14/2021 12:09 EST Sonya Franco PATHOLOGY ORDERABLES [facility] [address] [place] [address] * CHLAMYDIA/N. GONORRHOEAE AMPLIFIED RNA, THINPREP (03/13/2021 11:20 EST) Neisseria gonorrhoeae Result Negative Negative 03/14/2021 16:33 EST [facility] Chlamydia trachomatis Result Negative Negative 03/14/2021 16:33 [facility] Papanicolaou smear specimen (specimen) CERVIX UTERI STRUCTURE / Unknown 03/13/2021 11:20 EST 03/14/2021 8:54 EST Sonya Franco MICROBIOLOGY - GENER AL ORDERABLES [facility] [address] [place] [address] documented in this encounter Visit Diagnoses Diagnosis Encounter for other general examination documented in this encounter Care Teams Contracting Manager Relationship Specialty Start Date End Date Nadja Doan FNP [address] [place] [address] PCP - General 12/24/18 Butch Yanes MD [address] [place] [phone] 12/24/18 documented as of this encounter
--- OUTSIDE RECORDS SUMMARY | 2023-10-31 10:22 | XMS_ITS | Encounter Summary ---
Author Organization [facility] Address [address] [place] [address] Care Team Providers Care Table Cover Folder Name Role Phone LilianNadja bolivar PASCALE Primary Care Provider [phone] Butch Yanes MD Unavailable [phone] Encounter Details Date Type Department Care Team (Late st Contact Info) Description 01/25/2021 Lab Requisition [facility] Pathology & Laboratory Medicine - [address] [phone] Outr Resulting Lab, Provider Social History Tobacco [...] Comments ZZCOVID-19 TEST [facility] PCR Today 01/25/2021 11:10 EST COVID-19 TESTING Routine 01/25/2021 11:1 0 EST documented in this encounter Results * COVID-19 TEST [facility] PCR (01/25/2021 11:10 EST) Swab 01/25/2021 11:1 0 EST 01/25/2021 21:31 EST Provider Outr Resulting Lab MICROBIOLOGY - GENERAL ORDERABLES Performing Organization Address City/[facility] Co de Phone Number [facility] [address] [place] [address] * COVID-19 TESTING (01/25/2021 11:10 EST) COVID-19 rt-PCR Result Negative Negative 01/26/2021 2:17 EST [facility] Comment: This test has [...] clinical observations, patient history, and epidemiological information. Performed on the [employer] Fusion instrument Performing Lab [place] [facility] 01/26/2021 2:17 EST [facility] Swab 01/25/2021 11:1 0 EST 01/25/2021 21:31 EST Provider Outr Resulting Lab MICROBIOLOGY - GENERAL ORDERABLES Performing Organization Address City/[facility]/ZIP Co de Phone Number [facility] [address] [place] [address] documented in this encounter Visit Diagnoses Not on filedocumented in this encounter Care Teams Table Cover Folder Relationship Specialty Start Date End Date Nadja Doan FNP [facility] [address] PCP - General 12/24/18 Butch Yanes MD [address] [place] [phone] 12/24/18 documented as of this encounter
--- OUTSIDE RECORDS SUMMARY | 2023-10-31 10:22 | XMS_ITS | Encounter Summary ---
Author Organization [facility] Address [address] [place] [address] Care Team Providers Care Pantry Chef Name Role Phone LilianNadja bolivar PASCALE Primary Care Provider [phone] Butch Yanes MD Unavailable [phone] Encounter Details Date Type Department Care Team (Late st Contact Info) Description 11/22/2020 Lab Requisition [facility] Pathology & Laboratory Medicine - [address] [address] Outr Resulting Lab, Provider Social History Tobacco [...] Priority Date/Time Associated Diagnosis Comments [facility]COVID-19 TEST [facility] PCR Today 11/22/2020 11:55 EDT COVID-19 TESTING Routine 11/22/2020 11:5 5 EDT documented in this encounter Results * COVID-19 TEST [facility] PCR (11/22/2020 11:55 EDT) Swab ENTIRE NASOPHARYNX / Unknown 11/22/2020 11:55 EDT 11/22/2020 22:15 EDT Provider Outr Resulting Lab MICROBIOLOGY - GENERAL ORDERABLES [facility] [address] [place] [address] * COVID-19 TESTING (11/22/2020 11:55 EDT) COVID-19 rt-PCR Result Negative Negative 11/23/2020 1:57 EDT [facility] Comment: This test [...] history, and epidemiological information. Performed on the [employer]her Fusion instrument Performing Lab [place] [facility] Lab 11/23/2020 1:57 EDT [facility] Swab 11/22/2020 11:5 5 EDT 11/22/2020 22:15 EDT Provider Outr Resulting Lab MICROBIOLOGY - GENERAL ORDERABLES [facility] [address] [place] [address] documented in this encounter Visit Diagnoses Not on filedocumented in this encounter Care Teams Pantry Chef Relationship Specialty Start Date End Date Nadja Doan FNP [place] [address] PCP - General 12/24/18 Butch Yanes MD [address] [place] [phone] 12/24/18 documented as of this encounter
--- OUTSIDE RECORDS SUMMARY | 2023-10-31 10:22 | XMS_ITS | Encounter Summary ---
Author Organization [facility] Address [address] [place] [address] Care Team Providers Care Orthopedic Podiatrist Name Role Phone OlimpiaNadja PASCALE Primary Care Provider [phone] Butch Yanes MD Unavailable [phone] Encounter Details Date Type Department Care Team (Late st Contact Info) Description 07/17/2020 Lab Requisition [facility] Pathology & Laboratory Medicine - [facility] [address] [place], [place] [address] Outr Resulting Lab, Provider Social History Tobacco [...] Procedure Name Priority Date/Time Associated Diagnosis Comments HIV 1/2 ANTIGEN AND ANTIBODY, 4TH GENERATION Routine 07/16/2020 14:35 EDT documented in this encounter Results * HIV 1/2 ANTIGEN AND ANTIBODY, 4TH GENERATION (07/16/2020 14:35 EDT) HIV 1 and 2 Antibody/p24 Antigen, 4th Generation Negative Negative 07/18/2020 10:21 EDT [facility] Comment: If acute HIV-1 infection is suspected in a high risk ??patient, submit plasma specimen for HIV-1 RNA quantitation test. Fourth Generation assay performed on the Siemens Centaur. Blood VENOUS BLOOD / Unknown 07/16/2020 14:35 EDT 07/17/2020 15:53 EDT Provider Outr Resulting Lab IMMUNOLOGY A ND SEROLOGY ORDERABLES [facility] [address] [place] [address] documented in this encounter Visit Diagnoses Not on filedocumented in this encounter Care Teams Orthopedic Podiatrist Relationship Specialty Start Date End Date Nadja Doan FNP [address] [place] [address] PCP - General 12/24/18 Butch Yanes MD [address] [place] [address] 12/24/18 documented as of this encounter
--- OUTSIDE RECORDS SUMMARY | 2023-10-31 10:22 | XMS_ITS | Encounter Summary ---
Author Organization [facility] Address [address] [place] [address] Care Team Providers Care Cane Piler Name Role Phone Nadja Doan PASCALE Primary Care Provider Butch Yanes MD Unavailable [phone] Encounter Details Date Type Department Care Team (Late st Contact Info) Description 11/18/2022 Lab Requisition [facility] Pathology & Laboratory Medicine - [address] [address] Peggy Steen MD [address] [place] [address] Encounter for other general examination [...] Date/Time Associated Diagnosis Comments PAP TEST Today 11/17/2022 9:15 EDT Encounter for other general examination HPV GENOTYPES 16 AND 18/45 Today 11/17/2022 9:15 EDT Encounter for other general examination HPV DNA DETECTION WITH GENOTYPING, PCR Today 11/17/2022 9:15 EDT Encounter for other general examination documented in this encounter Results * HPV GENOTYPES 16 AND 18/45 (11/17/2022 9:15 EDT) HPV High Risk type 16, PCR Negative Negative 12/02/2022 13:53 EDT [facility] HPV18/45 RNA (HPV18/45) Negative Negative 12/02/2022 13:53 EDT [facility] Pap Test CERVIX UTERI STRUCTURE / Unknown 11/17/2022 9:15 EDT 11/28/2022 9:49 EDT Peggy Steen MD MICROBIOLOGY - GENER AL ORDERABLES Performing Organization Address [facility] de Phone Number [facility] [address] [place] [address] * (ABNORMAL) HUMAN PAPILLOMAVIRUS (HPV) DETECTION-HIGH RISK TYPES (11/17/2022 9:15 EDT) HPV other High Risk types, PCR Positive( A) Negative 12/02/2022 14:12 EDT [facility] Comment:E6 OR E7 mRNA from o ne or more types of HPV types 16,18,31,33,35,39,45,51,52,56,58,59,66, and 68 is detected by hydrogen cell tender mediated amplification. High and intermediate risk HPV types are associated with most squamous intraepithelial lesions and cervical cancers. Pap Test CERVIX UTERI STRUCTURE / Unknown 11/17/2022 9:15 EDT 11/28/2022 9:49 EDT Peggy Steen MD MICROBIOLOGY - GENER AL ORDERABLES Performing Organization Address City/[facility] Co de Phone Number [facility] [address] [place] [address] * PAP TEST (11/17/2022 9:15 EDT) Specimens A. Cervix and/or Endocervix , ThinPrep Imaging System with Manual Evaluation 12/02/2022 14:12 [facility] Specimen Adequacy Satisfactory for Evaluation - transformation zone component present 12/02/2022 14:12 [facility] General Categorization Epithelial Cell Abnormality 12/02/2022 14:12 [facility] Descriptive Diagnosis Squamous Cell Abnormality - Atypical squamous cells, undetermined significance (ASC-US). 12/02/2022 14:12 [facility] Educational Comments [facility] recommends following the ASCCP's management guidelines which may be found at www.asccp.org 12/02/2022 14:12 [facility] Attestation By the signature below, the attending physician certifies that they have personally conducted a gross and/or microscopic examination of the described specimens and rendered or confirmed the above diagnosis. 12/02/2022 14:12 [facility] at 1412 Clinical History See below 12/03/19 14:12 [facility] HPV The result for the Human Papillomavirus (HPV) Detection-High Risk Types is Positive . E6 OR E7 mRNA from one or more types of HPV types 16,18,31,33,35,39 ,45,51,52,56,58,5 9,66, and 68 is detected by hydrogen cell tender mediated amplification. High and intermediate risk HPV types are associated with most squamous intraepithelial lesions and cervical cancers. Testing was performed on specimen [id number] and was resulted on 11/28/2022 1831 EDT by DAMION, LAB INSTRUMENT RESULTS IN 12/02/2022 14:12 [facility] Genotyping 16 & 18/45 The results for the HPV Genotypes 16 and 18/45 are Negative for the HPV16 RNA and Negative for the HPV18/45 RNA (HPV18/45). Testing was performed on specimen [id number] and was resulted on 12/02/2022 1353 EDT by DAMION, LAB INSTRUMENT RESULTS IN 12/02/2022 14:12 [facility] Performing Lab [facility] 12/02/2022 14:12 [facility] Scanned Images 12/02/2022 14:12 EDT [facility] Pap Test CERVIX UTERI STRUCTURE / Unknown 11/17/2022 9:15 EDT 11/18/2022 14:25 EDT Peggy Steen MD PATHOLOGY ORDERABLES [facility] [address] [place] [address] documented in this encounter Visit Diagnoses Diagnosis Encounter for other general examination documented in this encounter Care Teams Cane Piler Relationship Specialty Start Date End Date Nadja Doan FNP [address] [place] [address] PCP - General 12/24/18 Butch Yanes MD [address] [place] [phone] 12/24/18 documented as of this encounter
--- OUTSIDE RECORDS SUMMARY | 2023-10-31 10:22 | XMS_ITS | Encounter Summary ---
Author Organization [facility] Address [address] [place] [address] Care Team Providers Care School Community Relations Coordinator Name Role Phone LilianNadja bolivar PASCALE Primary Care Provider [phone] Butch Yanes MD Unavailable [phone] Encounter Details Date Type Department Care Team (Late st Contact Info) Description 07/17/2020 Lab Requisition [facility] Pathology & Laboratory Medicine - [address] [phone] Outr Resulting Lab, Provider Social History Tobacco [...] Procedure Name Priority Date/Time Associated Diagnosis Comments SYPHILIS SEROLOGY Routine 07/16/2020 14: 35 EDT documented in this encounter Results * SYPHILIS SEROLOGY (07/16/2020 14:35 EDT) Syphilis Serology Negative Negative 07/18/2020 10:59 EDT [facility] Blood VENOUS BLOOD / Unknown 07/16/2020 14:35 EDT 07/17/2020 16:00 EDT Provider Outr Resulting Lab IMMUNOLOGY A ND SEROLOGY ORDERABLES [facility] [address] [place] [address] documented in this encounter Visit Diagnoses Not on filedocumented in this encounter Care Teams School Community Relations Coordinator Relationship Specialty Start Date End Date Nadja Doan FNP [address] [place] [address] PCP - General 12/24/18 Butch Yanes MD [address] [place] [phone] 12/24/18 documented as of this encounter
--- OUTSIDE RECORDS SUMMARY | 2023-10-31 10:22 | XMS_ITS | Encounter Summary ---
Author Organization [facility] Address [address] [place] [address] Care Team Providers Care Actuary Clerk Name Role Phone LilianNadja bolivar PASCALE Primary Care Provider [phone] Butch Yanes MD Unavailable [phone] Encounter Details Date Type Department Care Team (Late st Contact Info) Description 03/08/2021 Lab Requisition [facility] Pathology & Laboratory Medicine - [address] [id number] Outr Resulting Lab, Provider Social History Tobacco [...] Comments ZZCOVID-19 TEST [facility] PCR Today 03/08/2021 10:25 EST COVID-19 TESTING Routine 03/08/2021 10:2 5 EST documented in this encounter Results * COVID-19 TEST [facility] PCR (03/08/2021 10:25 EST) Swab 03/08/2021 10:2 5 EST 03/08/2021 21:44 EST Provider Outr Resulting Lab MICROBIOLOGY - GENERAL ORDERABLES Performing Organization Address City/[facility] Co de Phone Number [facility] [address] [place] [address] * COVID-19 TESTING (03/08/2021 10:25 EST) COVID-19 rt-PCR Result Negative Negative 03/09/2021 1:18 EST [facility] Comment: This test has [...] history, and epidemiological information. Performed on the Ad.IQher Fusion instrument Performing Lab [place] [facility] Lab 03/09/2021 1:18 EST [facility] Swab 03/08/2021 10:2 5 EST 03/08/2021 21:44 EST Provider Outr Resulting Lab MICROBIOLOGY - GENERAL ORDERABLES Performing Organization Address City/[facility]/ZIP Co de Phone Number [facility] [address] [place] [address] documented in this encounter Visit Diagnoses Not on filedocumented in this encounter Care Teams Actuary Clerk Relationship Specialty Start Date End Date Nadja Doan FNP [place] [address] PCP - General 12/24/18 Butch Yanes MD [address] [place] [id number] 12/24/18 documented as of this encounter
--- OUTSIDE RECORDS SUMMARY | 2023-10-31 10:22 | XMS_ITS | Encounter Summary ---
Author Organization [facility] Address [address] [place] [address] Care Team Providers Care Treasury Representative Name Role Phone OlimpiaNadja PASCALE Primary Care Provider Butch Yanes MD Unavailable [phone] Encounter Details Date Type Department Care Team (Late st Contact Info) Description 03/13/2021 Lab Requisition [facility] Pathology & Laboratory Medicine - [address] [phone] Outr Resulting Lab, Provider Social History Tobacco [...] 1/2 ANTIGEN AND ANTIBODY, 4TH GENERATION Routine 03/13/2021 12:07 EST documented in this encounter Results * HIV 1/2 ANTIGEN AND ANTIBODY, 4TH GENERATION (03/13/2021 12:07 EST) HIV 1 and 2 Antibody/p24 Antigen, 4th Generation Negative Negative 03/14/2021 10:12 EST [facility] Comment:If acute HIV-1 infec tion is suspected in a high risk patient, submit plasma specimen for HIV-1 RNA quantitation test. Blood VENOUS BLOOD / Unknown 03/13/2021 12:07 EST 03/13/2021 21:07 EST Narrative [facility] - 03/14/2021 10:12 EST Fourth Generation assay performed on the Siemens Centaur XPT. Provider Outr Resulting Lab IMMUNOLOGY A ND SEROLOGY ORDERABLES [facility] [address] [place] [address] documented in this encounter Visit Diagnoses Not on filedocumented in this encounter Care Teams Treasury Representative Relationship Specialty Start Date End Date Nadja Doan FNP [address] [place] [address] PCP - General 12/24/18 Butch Yanes MD [address] [address] 12/24/18 documented as of this encounter
--- OUTSIDE RECORDS SUMMARY | 2023-10-31 10:22 | XMS_ITS | Continuity of Care Document ---
Author Organization [facility] Address [address] [place] [address] Care Team Providers Care Car Racer Name Role Phone KEVEN PURI DNP Primary Care Physician [phone] Encounter [facility] NBR [id number] Date(s): 08/06/23 - 08/06/23 [facility] [address] [place], [place] [address] Encounter Diagnosis Migraines(Discharge Diagnosis) - 08/06/23 Migraine headache with aura(Discharge Diagnosis) - 08/06/23 Discharge Disposition: Home or Self Care Attending Physician: Mario Gomez MD Referring Physician: KEVEN PURI DNP Allergies, Adverse Reactions, Alerts Substance Reaction Severity Status vancomycin Mild Active formoterol Unknown Unknown Active budesonide-formoterol Unknown Unknown Active Symbicort Mild Active formoterol-mometasone Unknown Unknown Active Cats Unknown Unknown Active Dogs Unknown Unknown Active Tape Unknown Active Banana Mild Active Bottineau Mild Active Dust Unknown Unknown Active Assessment and Plan Future Appointments Medications [facility] Prescription 180 EA, 0 Refill(s), TAKE ONE [...] TID, # 180 cap, 6 Refill(s), Pharmacy: [id number] Start Date: 12/10/22 Status: Ordered LORazepam 0.5 mg oral tablet 2 EA, 0 Refill(s), 0 Refill(s) Start Date: 08/06/23 Status: Ordered metoprolol succinate 50 mg oral tablet, extended release 50 mg = 1 tab, Oral, BID, # 180 tab, 1 Refill(s), Pharmacy: [facility], 165.1, cm, 05/07/23 15:22:00 EDT, Height, [...] headache, # 90 tab, 1 Refill(s), Pharmacy: [id number], 165.1, cm, 03/05/23 7:56:00 EST, Height, 76.11, kg, 03/05/23 8:01:00 EST, Weight Dosing Start Date: 03/05/23 Status: Ordered predniSONE 10 mg oral tablet [...] 2 hours, #12 tab, 1 Refill(s), Pharmacy: [id number], 165.1, cm, 08/06/23 7:59:00 EDT, Height, [...] Range]: 1 Peripheral Pulse Rate [60-100 bpm] 86 bp m (08/06/23 7:59 AM) Blood Pressure [90-140/60-90 mmHg] 109/8 6mmHg (08/06/23 7:59 AM) Mean Arterial Pressure, Cuff [65-140 mmH g] 94 mmHg (08/06/23 7:59 AM) Weight 77.20 kg (08/06/23 7:59 AM) Weight Measured (lbs) 170.197 lb (08/06/23 7:59 AM) Weight Dosing 77.200 kg (08/06/23 7:59 AM) Joiner Body Weight Calculated 57 kg (08/06/23 7:59 AM) Height 165.10 cm (08/06/23 7:59 AM) Height/Length Measured (inches) 65 inch (08/06/23 7:59 AM) BSA Measured 1.88 m2 (08/06/23 7:59 AM) Body Mass Index 28.32 kg/m2 (08/06/23 7:59 AM) Social History Social History Type Response Tobacco Never tobacco user, Tobacco use status unknown Tobacco Use:. Sex Physician Outpatient Note * Mario Gomez MD: PERFORM, MODIFY Event Display: Office Clinic Note Physician Authored Date: [id number] MIYA ISABEL I :1990 Age:33 years Sex:Female Visit Date:08/06/2023 Primary Care Physician: KEVEN PURI DNP History of Present Illness ?Follow-up of headaches/tingling History of Present Illness ?? Interval History: ?? Miya is alone in this visit. ? We discussed about headaches again: ?? Current frequency:??Once??or twice /week (it has improved substantially after metoprolol), however increased??from once a week to two times a week in the last two months. ?Duration:??They??can last up to two days. Eletriptan??aborts migraine attack within 1 hour. ?Intensity:??It could be from 6 up to 8/10. ?Disability:?? She has not missed work days. ?? She feels that tingling is back all over, especially in hands and mouth. It happens daily and last for few hours. It could be bothersome.?? Ligtheaded still occurs. ?? Current abortive management: ? Sumatriptan was stopped due to side effects: mental slowness and lightheadedness. Started??eletriptan 20 mg as needed. ?? Current preventative management:? Continue metoprolol??50 mg twice a day. Increase gabapentin to 200 mg??am (from 100mg)??and continue 200 mg pm for tingling and migraine prophylaxis.? Amitriptyline was discontinued since recommended in our last visit. ?? She has not??had a sleep study??yet.? Physical Exam ?? General:??well nourished, in no acute distress, [...] to tip-toe, heel-walk.??Pull test is negative Assessment/Plan ? 1) Migraine with sensory and visual aura 2) POTS 3) Medication overuse headache ?? Plan: ?? Abortive management: ?? Continue eletriptan 20 mg as needed for headache. Continue??naproxen 500 mg every 8 hours as needed for headache, may take in combination with sumatriptan. ?? Preventive management: ? Continue metoprolol 50 mg twice a day. Increase gabapentin to 200 mg??am (from 100mg)??and continue 200 mg pm for tingling and migraine prophylaxis. ?? If still having migraines will consider CGRP inhibitors. ?? Awaiting sleep study. Connect with therapist for ??CBT for migraine. ?? Recommend physical activity and exercise. ?? Return to clinic in??3 months ?? Problem List/Past Medical History Ongoing Anemia Anxiety Asthma Cervical spondylosis Insomnia Menstrual abnormality Migraine headache with aura Migraine with aura, not intractable, without status migrainosus Neck pain Neuroforaminal stenosis of cervical spine Paresthesias POTS (postural orthostatic tachycardia syndrome) Sleep apnea Historical No qualifying data Medications albuterol 1.25 mg/3 mL (0.042%) inhalation solution [employer] Pre-filled Pen 300 mg/2 mL subcutaneous solution, [...] 100 mcg-20 mcg oral tablet Allergies Banana [place]au Symbicort vancomycin Cats??(Unknown) Dogs??(Unknown) Dust??(Unknown) Tape budesonide-formoterol??(Unknown) formoterol??(Unknown) formoterol-mometasone??(Unknown) Social History Alcohol Never Electronic Cigarette/Vaping Electronic Cigarette Use: Never, Unknown/not obtained. Tobacco Never tobacco user, Tobacco use status unknown Tobacco Use:. Family History Hypertension: Father. Attending Attestation Mario Bragg MD [facility]? I personally spent a total of 30 minutes??providing direct??care for this patient, reviewing records and providing education/counseling??on the date of the encounter.?? Electronically Signed on 08/06/2023 08:35 EDT Mario Gomez MD Patient Care team information Care Team Personnel Name: KEVEN PURI DNP Position: No Access Member Role: Primary Care Physician Address: Address: [place] [address]- Care Team Related Persons Name: JOAQUIM MCCOY Address: Home [address], [place] [id number] [facility] Name: JENIFFER GALLEGOS Name: MERLE JARRETT Address: Home [address] [address]
--- OUTSIDE RECORDS SUMMARY | 2023-10-31 10:22 | XMS_ITS | Continuity of Care Document ---
Author Organization [facility] Address [address] [place] [id number] Care Team Providers Care Cotton Classer Name Role Phone Hieu Lombardi Primary Care Physician Encounter [facility] NBR [id number] Date(s): 07/31/22 - 07/31/[address] [address]- [place] Discharge Disposition: Home or Self Care Attending Physician: Hieu Lombardi Admitting Physician: Hieu Lombardi Referring Physician: Hieu Lombardi Results Radiology Reports * Exam Date Time Procedure Performing Provider Status 07/31/22 8:50 AM XR Spine Cervical 2 or 3 Views Luciano Zhang E; Auth (Verified) Notes: (XR Spine Cervical 2 or 3 Views) Reason For Exam: decreased ROM numbness in hands feet face XR Spine Cervical 2 or 3 Views EXAM DESCRIPTION: XR Spine Cervical 2 or 3 Views 07/31/2022 INDICATION: DECREASED ROM NUMBNESS IN HANDS FEET FACE COMPARISON: None IMPRESSION: No acute fracture or subluxation. Prevertebral soft tissues are within normal limits Mild intervertebral disc space narrowing and ventral endplate osteophyte formation at C5-6 consistent with mild degenerative disc disease. Remaining intervertebral disc spaces are well maintained throughout the cervical region Mild reversal of cervical lordosis which may reflect patient positioning or muscle spasm. JOB #: [id number] Final Signed by: Amor Trotter MD Signed (Electronic Signature): 07/31/2022 9:11 am XR Cervical spine 2 or 3 Views * Amor Trotter MD: VERIFY, VERIFY Event Display: Report EXAM DESCRIPTION: XR Spine Cervical 2 or 3 Views 07/31/2022 INDICATION: DECREASED ROM NUMBNESS IN HANDS FEET FACE COMPARISON: None IMPRESSION: No acute fracture or subluxation. Prevertebral soft tissues are within normal limits Mild intervertebral disc space narrowing and ventral endplate osteophyte formation at C5-6 consistent with mild degenerative disc disease. Remaining intervertebral disc spaces are well maintained throughout the cervical region Mild reversal of cervical lordosis which may reflect patient positioning or muscle spasm. JOB #: [id number] Final Signed by: Amor Trotter MD Signed (Electronic Signature): 07/31/2022 9:11 am Patient Care team information Care Team Personnel Name: Hieu Lombardi Position: No Access Member Role: Primary Care Physician Address: Address: [address] [place] [address]- Care Team Related Persons Name: JENIFFRE GALLEGOS
--- OUTSIDE RECORDS SUMMARY | 2023-10-31 10:22 | XMS_ITS | Encounter Summary ---
Author Organization [facility] Address [address] [place] [address] Care Team Providers Care Synthetic Plasterer Name Role Phone LilianNadja bolivar PASCALE Primary Care Provider [phone] Butch Yanes MD Unavailable [phone] Encounter Details Date Type Department Care Team (Late st Contact Info) Description 03/13/2021 Lab Requisition [facility] Pathology & Laboratory Medicine - [address] [phone] Outr Resulting Lab, Provider Social History Tobacco [...] Procedure Name Priority Date/Time Associated Diagnosis Comments RUBELLA IGG ANTIBODY Routine 03/13/2021 12:07 EST VARICELLA IGG ANTIBODY Routine 03/13/2021 12:07 EST documented in this encounter Results * VARICELLA IGG ANTIBODY (03/13/2021 12:07 EST) Varicella IgG Ab Positive See Note 03/14/2021 11:00 EST [facility] Comment:Presence of detectab le Varicella Zoster virus IgG antibodies. Blood VENOUS BLOOD / Unknown 03/13/2021 12:07 EST 03/13/2021 21:07 EST Provider Outr Resulting Lab IMMUNOLOGY A ND SEROLOGY ORDERABLES Performing Organization Address [facility] Co de Phone Number [facility] [address] [place] [address] * RUBELLA IGG ANTIBODY (03/13/2021 12:07 EST) Rubella IgG Ab Positive See Note 03/14/2021 11:04 EST [facility] Comment:Positive for IgG ant ibodies to Rubella virus. Blood VENOUS BLOOD / Unknown 03/13/2021 12:07 EST 03/13/2021 21:07 EST Provider Outr Resulting Lab CHEMISTRY & BLOOD GAS ORDERABLES Performing Organization Address [facility] de Phone Number [facility] [address] [place] [address] documented in this encounter Visit Diagnoses Not on filedocumented in this encounter Care Teams Synthetic Plasterer Relationship Specialty Start Date End Date Nadja Doan FNP [address] [place] [address] PCP - General 12/24/18 Butch Yanes MD [address] [place] [phone] 12/24/18 documented as of this encounter
--- OUTSIDE RECORDS SUMMARY | 2023-10-31 10:22 | XMS_ITS | Encounter Summary ---
Author Organization [facility] Address [address] [place] [address] Care Team Providers Care Termite Control Technician Name Role Phone LilianNadja bolivar PASCALE Primary Care Provider [phone] Butch Yanes MD Unavailable [phone] Encounter Details Date Type Department Care Team (Late st Contact Info) Description 02/26/2022 Lab Requisition [facility] Pathology & Laboratory Medicine - [address] [phone] Outr Resulting Lab, Provider Social History Tobacco [...] Procedure Name Priority Date/Time Associated Diagnosis Comments IGE Routine 02/26/2022 12:30 EST documented in this encounter Results * (ABNORMAL) IGE (02/26/2022 12:30 EST) IgE 383(H) <158 IU/mL 02/28/2022 8:17 EST [facility] Blood VENOUS BLOOD / Unknown 02/26/2022 12:30 EST 02/26/2022 21:58 EST Provider Outr Resulting Lab CHEMISTRY & BLOOD GAS ORDERABLES [facility] [address] [place] [address] documented in this encounter Visit Diagnoses Not on filedocumented in this encounter Care Teams Termite Control Technician Relationship Specialty Start Date End Date Nadja Doan FNP [address] [place] [address] PCP - General 12/24/18 Butch Yanes MD [address] [place] [phone] 12/24/18 documented as of this encounter
--- OUTSIDE RECORDS SUMMARY | 2023-10-31 10:22 | XMS_ITS | Continuity of Care Document ---
Author Organization [facility] Ambulatory Clinics Address [address] [place] [address] Care Team Providers Care Chief Crew Scheduler Name Role Phone KEVEN PURI DNP Primary Care Physician Encounter [facility] NBR [id number] Date(s): 03/05/23 - 03/05/23 [facility] Ambulatory Clinics [address] [place], [place] [address] Encounter Diagnosis Migraine with visual aura(Discharge Diagnosis) - 03/05/23 Migraine with aura(Discharge Diagnosis) - 03/05/23 POTS (postural orthostatic tachycardia syndrome)(Discharge Diagnosis) - 03/05/23 Discharge Disposition: Home or Self Care Attending Physician: Mario Gomez MD Referring Physician: KEVEN PURI DNP Allergies, Adverse Reactions, Alerts Substance Reaction Severity Status vancomycin Mild Active formoterol Unknown Unknown Active budesonide-formoterol Unknown Unknown Active Symbicort Mild Active formoterol-mometasone Unknown Unknown Active Cats Unknown Unknown Active Dogs Unknown Unknown Active Tape Unknown Active Banana Mild Active [place] Mild Active Dust Unknown Unknown Active Assessment and Plan Future Appointments Functional Status 03/05/23 Recent Travel History No recent travel Medications albuterol 1.25 mg/3 mL (0.042%) inhalation solution 90 mL, 0 Refill(s), INHALE ONE VIAL VIA NEBULIZER FOUR TIMES A DAY NEEDED FOR SHORTNESS OF BREATH OR WHEEZING, 0 Refill(s) Start Date: 02/25/23 Status: Ordered amitriptyline 10 mg oral tablet 90 EA, 0 Refill(s), TAKE ONE TABLET BY MOUTH AT BEDTIME, 0 Refill(s) Start Date: 02/25/23 Status: Ordered amitriptyline 25 mg oral tablet 25 mg = 1 tab, Oral, every night at bedtime, # 90 tab, 6 Refill(s), Pharmacy: [facility], 165.1, cm, 12/10/22 8:12:00 EDT, Height Start Date: 02/05/23 Status: Ordered DilTIAZem (Eqv-Tiazac) 120 mg/24 hours oral capsule, extended release 0 Refill(s) Start Date: 03/05/23 Status: Ordered Dupixent Pre-filled Pen 300 mg/2 [...] TID, # 180 cap, 6 Refill(s), Pharmacy: [id number] Start Date: 12/10/22 Status: Ordered metoprolol succinate 25 mg oral capsule, extended release 25 mg = 1 cap, Oral, BID, # 90 cap, 3 Refill(s), Pharmacy: [facility], 165.1, cm, 03/05/23 7:56:00 EST, Height, 76.11, kg, 03/05/23 8:01:00 EST, Weight Dosing Start Date: 03/05/23 Status: Ordered montelukast 10 mg oral tablet 10 mg = 1 tab, Oral, Daily, 0 Refill(s) Start Date: 08/27/22 Status: Ordered naproxen 500 mg oral tablet 500 mg = 1 tab, Oral, As Directed, PRN as needed for pain, Take 1 tablet every 8 hours as needed for headache, # 90 tab, 1 Refill(s), Pharmacy: [facility], 165.1, cm, 03/05/23 7:56:00 EST, Height, 76.11, kg, 03/05/23 8:01:00 EST, Weight Dosing Start Date: 03/05/23 Status: Ordered SUMAtriptan 50 mg oral tablet 50 mg = 1 tab, Oral, Once, PRN as needed for migraine headache, may repeat dose after 2 hours up toa maximum of 200 mg in 24 hours, # 18 tab, 1 Refill(s), Pharmacy: [facility], 165.1, cm, 03/05/23 7:56:00 EST, Height, 76.11, kg, 03/05/23 8:01:00 EST, Weight Dosing Start Date: 03/05/23 Status: Ordered Trelegy Ellipta 200 mcg-62.5 mcg-25 [...] Range]: 1 Peripheral Pulse Rate [60-100 bpm] 112 b pm *HI* (03/05/23 7:56 AM) Blood Pressure [90-140/60-90 mmHg] 133/9 3mmHg (03/05/23 7:56 AM) Mean Arterial Pressure, Cuff [70-110 mmH g] 106 mmHg (03/05/23 7:56 AM) Weight 76.11 kg (03/05/23 7:56 AM) Weight Measured (lbs) 167.794 lb (03/05/23 7:56 AM) Weight Dosing 76.110 kg (03/05/23 7:56 AM) [place] Body Weight Calculated 57 kg (03/05/23 7:56 AM) Height 165.10 cm (03/05/23 7:56 AM) Height/Length Measured (inches) 65 inch (03/05/23 7:56 AM) BSA Measured 1.87 m2 (03/05/23 7:56 AM) Body Mass Index 27.92 kg/m2 (03/05/23 7:56 AM) Social History Social History Type Response Tobacco Never tobacco user, Tobacco use status unknown Tobacco Use:. Sex Physician Outpatient Note * Mario Gomez MD: PERFORM, MODIFY, MODIFY Event Display: Office Clinic Note Physician Authored Date: [id number] MIYA ISABEL I :1990 Age:32 years Sex:Female Visit Date:03/05/2023 Primary Care Physician: KEVEN PURI DNP Chief Complaint Additional Information Follow-up of headaches/tingling History of Present Illness ?? Interval History: ?? Miya is alone in this visit. ?? We discussed about headaches again. ?? She said that starting having headaches since high school, around age 15. She said that headaches have been pretty much the same since then. ?? Premonitory symptoms: Tension in her neck and irritability, those symptoms happen 20 minutes beforeheadache starts. Aura: Usually dark spots in both visual, also tingling as previously described in other notes. Headache phase: Usually starts with left occipital throbbing pain that migrates to whole head. Usually severity is 6/10. She has nausea, no frequent vomiting. She has all sensory phobias. Pain usually lasts over 2 days. Autonomic symptoms: No pupillary changes. No rhinorrhea. No tearing. Postdrome: She feels tired, she feels worn out and has difficulty concentrating. Frequency: Daily since Dec, 2022.?? Prior to it she had 2 a week. Pain is debilitating but is not missing work days. Triggers:Emotional stress. Red flags: No positional headache. No TVOs. Mood: tired, some anxiety. Sleep: She has trouble staying asleep. She has history of sleep apnea but is not adherent to CPAP. Medications tried: ? Abortive:? Tylenol up 1000 mg, it used to help but then started to take it daily and is not helpful anymore. She stopped taking it daily about 3 weeks.?Ibuprofen up to 600 mg, it helps a bit. ? Cefaly, ineffective ?Preventive: ? Amitriptyline??up to 25 mg at night, initially was helpful but not??anymore. ? Cefaly, ineffective ?? Non-pharmacological interventions:?? None. ?? Workup:? MRI brain did not show any intracranial lesions. ?? Miya has history of POTS, she described her symptoms as palpitation, lightheadedness and fatigue. Wood Inspector prescribed diltiazem for over a week ago but no changes in BP and HR. ?? Tingling is still present but much better since being on gabapentin. Physical Exam Vitals & Measurements HR:??112??(Peripheral)?? BP:??133/93?? HT:??165.10??cm?? WT:??76.11??kg?? BMI:??27.92?? BSA:??1.87?? General Physical Examination: ?? General:??well nourished, in [...] headache ?? Plan: ?? Abortive management: ?? Recommended avoiding Tylenol daily. Educated on medication overuse headache. Start sumatriptan 50 mg PRN as needed. May take another table >2 hours after first dose. No morethan 5 doses a week. Start naproxen 500 mg every 8 hours as needed for headache, may take in combination with sumatriptan. ?? Preventive management: ?? Discontinue amitriptyline??25 mg at bedtime Start metoprolol??25 mg twice a day to assist with POTS and migraine (If tolerating will increase to 50 mg twice a day), given is more cardioselective is unlikely to worsen asthma. ?? Continue gabapentin 200 mg at bedtime for tingling, it also helps as migraine prophylaxis. ?? Recommend wearing CPAP nightly Referral to psychology for CBT for migraine. ?? Recommend physical activity and exercise. ?? Return to clinic in??2 months ?? Problem List/Past Medical History Ongoing Anemia Anxiety Asthma Cervical spondylosis Insomnia Menstrual abnormality Migraine headache with aura Migraine with aura, not intractable, without status migrainosus Neck pain Neuroforaminal stenosis of cervical spine Paresthesias POTS (postural orthostatic tachycardia syndrome) Sleep apnea Historical No qualifying data Medications albuterol 1.25 mg/3 mL (0.042%) inhalation solution amitriptyline 10 mg oral tablet amitriptyline 25 mg oral tablet, 25 mg= 1 tab, Oral, every night at bedtime, 6 refills Dupixent Pre-filled Pen 300 mg/2 mL subcutaneous solution, 300 mg, Subcutaneous, every 2 wk Dupixent Pre-filled Syringe 300 mg/2 mL subcutaneous solution gabapentin 100 mg oral capsule, 100 mg= 1 cap, Oral, TID, 6 refills LORazepam 0.5 mg oral tablet montelukast 10 mg oral tablet, 10 mg= 1 tab, Oral, Daily ondansetron 4 mg oral tablet, disintegrating Trelegy Ellipta 200 mcg-62.5 mcg-25 mcg/inh inhalation powder Ventolin HFA 90 mcg/inh inhalation aerosol Vienva 100 mcg-20 mcg oral tablet Allergies Banana [place] Symbicort vancomycin Cats??(Unknown) Dogs??(Unknown) Dust??(Unknown) Tape budesonide-formoterol??(Unknown) formoterol??(Unknown) formoterol-mometasone??(Unknown) Social History Alcohol Never Electronic Cigarette/Vaping Electronic Cigarette Use: Never, Unknown/not obtained. Tobacco Never tobacco user, Tobacco use status unknown Tobacco Use:. Family History Hypertension: Father. Attending Attestation Mario Bragg MD [facility]? I personally spent a total of 40 minutes??providing direct??care for this patient on the date of the encounter.?? Electronically Signed on 03/05/23 08:49 AM Mario Gomez MD Outpatient Summary note * Harinder Karimi: PERFORM Event Display: Ambulatory Patient Summary Authored Date: [id number] MAAMESHARIFPRATEEK Fam :1990 Age:32 years Sex:Female Visit Date:03/05/2023 Primary Care Physician: KEVEN PURI DNP Ambulatory Visit Instructions We would like to thank you for allowing us to assist you with your healthcare needs. The following includes patient education materials and information regarding your injury/illness. Your Next Steps Instructions From Your Care Team It was a pleasure seeing you today again, Miya. Here are my recommendations: ?? Abortive management: ?? Avoid Tylenol. Start sumatriptan 50 mg PRN as needed. May take another table >2 hours after first dose. No morethan 5 doses a week. Start naproxen 500 mg every 8 hours as needed for headache, may take in combination with sumatriptan. ?? Preventive management: ?? Discontinue amitriptyline??25 mg at bedtime Start metoprolol??25 mg twice a day to assist with POTS and migraine, if tolerating after 2 weeks increase to 50 mg twice a day. ?? Recommend wearing CPAP nightly or device recommended by sleep specialist Connect with therapist for??cognitive behavioral therapy??(CBT)??for migraine. ?? Recommend physical activity and exercise. ?? Return to clinic in??2 months Scheduled Future Appointments 2023 8:15 PM EST ?? Where: [facility] Status: Confirmed Medications What How Much When Why Instructions Unchanged albuterol (albuterol 1.25 mg/ 3 mL [...] Unchanged amitriptyline (amitriptyline 10 mg oral tablet) 90 EA, 0 Refill(s), TAKE ONE TABLET BY MOUTH AT BEDTIME ?? Unchanged amitriptyline (amitriptyline 25 mg oral tablet) 1 tab Oral (given by mouth) Every night at bedtime Unchanged dilTIAZem (DilTIAZem (Eqv-Tiazac) 120 mg/ 24 hours oral capsule, extended release) Unchanged dupilumab (Dupixent Pre-filled Pen 300 mg/ [...] THE NEXT PACK RIGHT AWAY) ?? Unchanged montelukast (montelukast 10 mg oral [...] Mario Gomez MD Primary Care Physician - KEVEN PURI DNP Referring Physician - JAXSON LEMON, KEVEN Discharge Vitals Heart Rate??(Peripheral) 112 Blood Pressure?? 133/93?? Height?? 65.00 in (165.10 cm) Weight?? 167.82 lb (76.11 kg) BMI?? 27.92 Allergies Banana [place] Symbicort vancomycin Cats??(Unknown) Dogs??(Unknown) Dust??(Unknown) Tape budesonide-formoterol??(Unknown) formoterol??(Unknown) formoterol-mometasone??(Unknown) Electronically Signed on: 03/05/2023 08:41 ESTSigned by:BOB Patient Care team information Care Team Personnel Name: KEVEN PURI DNP Position: No Access Member Role: Primary Care Physician Address: Address: [place] [address]- Care Team Related Persons Name: JOAQUIM MCCOY Address: Home [address], [place] [id number] [facility] Name: JENIFFER GALLEGOS Address: Home Name: MERLE JARRETT Address: Home [address] [place] [address]
--- OUTSIDE RECORDS SUMMARY | 2023-10-31 10:22 | XMS_ITS | Continuity of Care Document ---
Author Organization [facility] Ambulatory Clinics Address [address] [place] [address] Care Team Providers Care Supervisor Real Estate Office Name Role Phone Hieu Lombardi Primary Care Physician Encounter [facility] NBR [id number] Date(s): 08/27/22 - 08/27/22 [facility] Ambulatory Clinics [address] [place], [place] [address] Encounter Diagnosis Neck pain(Discharge Diagnosis) - 08/27/22 Cervical spondylosis(Discharge Diagnosis) - 08/27/22 Neuroforaminal stenosis of cervical spine(Discharge Diagnosis) - 08/27/22 Paresthesias(Discharge Diagnosis) - 08/27/22 Discharge Disposition: Home or Self Care Attending Physician: Atiya Reno APRN-PASCALE Referring Physician: Hieu Lombardi Allergies, Adverse Reactions, Alerts Substance Reaction Severity Status vancomycin Mild Active Symbicort Mild Active Banana Mild Active [place] Mild Active Assessment and Plan Future Appointments Functional Status 08/27/22 Other exposure to Infectious Disease Non e Medications Albuterol (Eqv-ProAir HFA) 90 mcg/inh inhalation aerosol 0 Refill(s) Start Date: 08/27/22 Status: Ordered Dupixent Pre-filled Pen 300 mg/2 mL subcutaneous solution 300 mg =, Subcutaneous, every 2 wk, rotate injection sites, # 4 mL, 0 Refill(s) Start Date: 08/27/22 Status: Ordered montelukast 10 mg oral tablet 10 mg = 1 tab, Oral, Daily, 0 Refill(s) Start Date: 08/27/22 Status: Ordered Trelegy Ellipta 200 mcg-62.5 mcg-25 mcg/inh inhalation powder 0 Refill(s) Start Date: 08/27/22 Status: Ordered Problem List Condition Confirmation Course Effective Dates Status H ealth Status Informant Cervical spondylosis Confirmed Active Neck pain Confirmed Active Paresthesias Confirmed Active Neuroforaminal stenosis of cervical spine Confirmed Active Vital Signs Most recent to oldest [Reference Range]: 1 Apical Heart Rate [60-100 bpm] 105 bpm *HI* (08/27/22 10:05 AM) Blood Pressure [90-140/60-90 mmHg] 122/8 8mmHg (08/27/22 10:05 AM) Social History Social History Type Response Tobacco Tobacco use status u nknown Tobacco Use:. 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 The patient reports that she has been struggling with intermittent posterior neck pain for the past year. ??She states that she does that she is sleeping funny sitting think much of this.?? She is also noticed decreased range of motion in her neck.?? In May the patient developed intermittent numbness affecting her bilateral hands, feet??as well as her lips.?? The numbness is more pronounced in her right foot.?? She also will have intermittent pain??that zings down her left arm into her hand and her left hand will go numb.?? She denies any??pain or paresthesias affecting the legs or torso.?? The patient states that she thought this numbness may be due to her??anemia which she has struggled with in the past particularly after??giving .?? She has a 1-year-old.?? She states that she did have lab work with her PCP and her anemia is stable. ??She states that she also had her B12??checked and that was??normal.?? The patient does feel that her hands are becoming somewhat weak. ??She has noticed recently that she struggles to open a medicine bottle with both hands. ??She is??right-handed.?? The patient reports that her intermittent paresthesias can happen at any time and she cannot recall any provoking activities or movements.?? She denies any significant changes to her gait or any difficulty with her balance. ??She applies heat to her neck at nighttime and that provides some temporarycomfort. ??She will take ibuprofen or Tylenol as needed for the pain and it does take the edge off.??She is hesitant to take Tylenol and is trying to avoid this as she reports that she had a significant??gastroenteritis a few months ago for which she did have a fever for which she was taking Tylenol and unfortunately developed elevated liver enzymes. ??She reports that they have since stabilized.?? She started physical therapy yesterday.?? In regards the patient's medical history, in addition to her anemia??she also has POTS which was diagnosed by cardiology.?? This is relatively well controlled though she will get some intermittent dizziness. ??This was worse when she was .?? She also reports that she has severe asthma that??is not well controlled. ??She has been treated??with pulmonology at [facility].?? She also has sleep apnea.?? The patient reports that she has been struggling with her neck pain as well as these intermittent paresthesias??and is actually in the process of having the lab work??to evaluate her paresthesias when her brother recently experienced a severe cervical spinal stenosis with myelopathic findings that required urgent surgery.?? This??made her explore the possibility of a cervical spine problem. Review of Systems Relevant ROS discussed in HPI Physical Exam Vitals & Measurements HR:??105??(Apical)?? BP:??122/88?? SpO2:??100%?? GENERAL:?General Appearance:?pleasant, age appropriate in no apparent distress.?? MUSCULOSKELETAL:?Musculoskeletal:??Cervical spine ROM mildly decreased with bilateral rotation.?? Mildlower cervical spine tenderness.?? No significant bilateral cervical paraspinal muscle tenderness. NEUROLOGICAL:?Neurological:?Negative Lhermitte's.?Motor:?Strength 5/5 with bilateral deltoid abduction, bicep flexion, triceps flexion, wrist extension, hand abduction, hip flexion, knee flexion and extension, ankle dorsiflexion andplantar flexion.?Reflexes:?2+ and symmetric in biceps, triceps, brachioradialis and ankles bilaterally. 3+ and symmetric in knees bilaterally. Negative Della's bilaterally.? Tone: Normal ? Gait: Normal Assessment/Plan 1.??Neck pain??M54.2 2.??Cervical spondylosis??M47.812 3.??Neuroforaminal stenosis of cervical spine??M48.02 4.??Paresthesias??R20.2 The patient has been struggling with neck pain for the past year.?? She also has intermittent paresthesias affecting both of her hands, feet and her lips.?? Her PCP has??obtained lab work and ruled out her anemia as a cause for the symptoms.?? The patient does have some mild spondylotic changes in the cervical spine including mild??central stenosis at C4-5 as well as??right neuroforaminal narrowing at C5-6.?? She is not having any specific symptoms in the C6 distribution on the right.?? She does have intermittent zinging pain down the left upper extremity.?? Based on the patient's imaging this is less likely to be due to a cervical spine problem.?? Her physical examination is unremarkable.?? We discussed that??while she does have??mild stenosis at the C4-5 level that can??produce??paresthesias, given that this is quite mild and that the paresthesias are also affecting her lips suggest niharika systemic problem.?? I suggested a referral to neurology for evaluation and??possible NCS/EMG. ??The patient is agreeable.?? I recommended that she continue with her physical therapy as that may be useful for her neck pain as well as helping with her posture.?? We also discussed red flag symptoms to the patient to monitor for that could suggest a potential worsening??cervical spinal stenosis or worsening??cervical neuroforaminal stenosis??to include??pain down the right upper extremity, and??worsening and progressive paresthesias, weakness,??gait??or balance problems.?We also discussedthat the patient's??cervical spine??findings??can be due to a normal part of the aging process but it is interesting that her brother has had significant cervical spine issues at a young age and she also reports that her mother has had issues with??herniated disks in her cervical spine. ??This suggest that there may be a genetic component as well.?? She will continue monitoring for symptoms and??r eturn if needed. Plan: Referral to neurology for paresthesias. Referral Orders Referral Management, Medical Service: Neurology, Reason: Paresthesias of the bilateral hands, feet and lips., Start: 08/27/22, Instructions: [facility] Problem List/Past Medical History Ongoing Cervical spondylosis Neck pain Neuroforaminal stenosis of cervical spine Paresthesias Historical No qualifying data Medications Albuterol (Eqv-ProAir HFA) 90 mcg/inh inhalation aerosol Dupixent Pre-filled Pen 300 mg/2 mL subcutaneous solution, 300 mg, Subcutaneous, every 2 wk montelukast 10 mg oral tablet, 10 mg= 1 tab, Oral, Daily Trelegy Ellipta 200 mcg-62.5 mcg-25 mcg/inh inhalation powder Allergies Banana [place] Symbicort vancomycin Social History Electronic Cigarette/Vaping Electronic Cigarette Use: Unknown/not obtained. Tobacco Tobacco use status unknown Tobacco Use:. Family History Hypertension: Father. Diagnostic Results Diagnostic Study Interpretation: MRI of the cervical spine as well as the patient's cervical spine x-rays were reviewed.?? There is a mild reversal of the cervical lordosis.?? There is intervertebral disc height loss at the C5-6 level. ??At C4-5 there is a mild broad-based central disc osteophyte complex??causing thecal sac indentation??and mild central stenosis. ??At C5-6 there is mild broad-based central disc osteophyte complex??with right uncovertebral spurring causing??thecal sac indentation and right neuroforaminal narrowing. ??At??T3-4 there appears to be a mild posterior disc??protrusion potentially causing mild??stenosis though the axial images are not available at this level. Electronically Signed on 08/27/22 10:54 AM WALT Mcd[facility] Patient Care team information Care Team Personnel Name: Hieu Lombardi Position: No Access Member Role: Primary Care Physician Address: Address: [address] [place] [id number] [place] [address] Care Team Related Persons Name: JOAQUIM MCCOY Address: Home [address] [place] [phone] [facility] Name: JENIFFER GALLEGOS Address: Home
--- OUTSIDE RECORDS SUMMARY | 2023-10-31 10:22 | XMS_ITS | Encounter Summary ---
Author Organization [facility] Address [address] [place] [address] Care Team Providers Care Plant Anatomy Teacher Name Role Phone OlimpiaNadja PASCALE Primary Care Provider [phone] Butch Yanes MD Unavailable [phone] Encounter Details Date Type Department Care Team (Late st Contact Info) Description 03/06/2020 Lab Requisition [facility]ology & Laboratory Medicine - [address] [id number] Outr Resulting Lab, Provider Social History Tobacco [...] Procedure Name Priority Date/Time Associated Diagnosis Comments DO NOT ORDER STANDALONE - BROAD COVID TEST Today 03/06/2020 14:38 EST COVID-19 TESTING Routine 03/06/2020 14:3 8 EST documented in this encounter Results * DO NOT ORDER STANDALONE - BROAD COVID TEST (03/06/2020 14:38 EST) COVID-19 rt-PCR Result NEGATIVE Negative 03/07/2020 20:27 [facility] Comment: 2019-novel Coronavirus (2019-nCoV) not detected by the qRT-PCR assay. Consider testing for other respiratory viruses or re-collecting for 2019-nCoV testing. Note: Optimum timing for peak viral levels during infections caused by 2019-nCoV have not been determined. Collection of multiple specimens from the same patient may be necessary to detect the virus. Limitations Positive results are indicative of active infection with SARS-CoV-2 but do not rule out bacterial infection or co-infection with other viruses. The agent detected may not be the definite cause of disease. In addition, detection of viral RNA may not indicate the presence of infectious virus or that SARS-CoV-2 is the causative agent for clinical symptoms. Negative results do not preclude SARS-CoV-2 infection and should not be used as the sole basis for patient management decisions. Negative results must be combined with clinical observations, patient history, and epidemiological information. False negative results may also occur if amplification inhibitors are present in the specimen or if inadequate numbers of organisms are present in the specimen. Optimum specimen types and timing for peak viral levels during infections caused by SARS-CoV-2 have not been fully determined. Collection of multiple specimens (types and time points) from the same patient may be necessary to detect the virus. The test was validated for use with upper respiratory specimens obtained via nasopharyngeal or oropharyngeal swabs in VTM, UTM, M4, M5, M6, saline, and MTM media. The performance of this test has not been established for other specimens. Specimens collected using other FDA recommended Specimen Collection Materials listed in the FDA COVID-19 [employer] communication (May 19, 2019) are processed with the caveat that they were not all validated for use with this test and the result must be interpreted in this context. Furthermore, a false negative results may occur if a specimen is improperly collected, transported or handled. If the virus mutates in the RT-PCR target region, SARS-CoV-2 may not be detected or may be detected less predictably. Inhibitors or other types of interference may produce a false negative result. An interference study evaluating the effect of common cold medications was not performed. This test is not FDA-cleared but its performance characteristics were established by our CLIA-certified, CAP-accredited, high complexity laboratory in accordance with CLIA regulations, [employer] [place] [employer] (CAP) guidelines (May 12, 2019), and FDA guidance (Apr 23, 2019). This test is only for use under the Food and Drug Administration's Emergency Use Authorization. Swab ENTIRE NASOPHARYNX / Unknown 03/06/2020 14:38 EST 03/06/2020 20:44 EST Provider Outr Resulting Lab MICROBIOLOGY - GENERAL ORDERABLES [facility] [place] * COVID-19 TESTING (03/06/2020 14:38 EST) COVID-19 rt-PCR Result NEGATIVE Negative 03/07/2020 21:48 EST [facility] Comment: 2019-novel Coronavirus (2019-nCoV) not detected by the qRT-PCR assay. Consider testing for other respiratory viruses or re-collecting for 2019-nCoV testing. Note: Optimum timing for peak viral levels during infections caused by 2019-nCoV have not been determined. Collection of multiple specimens from the same patient may be necessary to detect the virus. Limitations Positive results are indicative of active infection with SARS-CoV-2 but do not rule out bacterial infection or co-infection with other viruses. The agent detected may not be the definite cause of disease. In addition, detection of viral RNA may not indicate the presence of infectious virus or that SARS-CoV-2 is the causative agent for clinical symptoms. Negative results do not preclude SARS-CoV-2 infection and should not be used as the sole basis for patient management decisions. Negative results must be combined with clinical observations, patient history, and epidemiological information. False negative results may also occur if amplification inhibitors are present in the specimen or if inadequate numbers of organisms are present in the specimen. Optimum specimen types and timing for peak viral levels during infections caused by SARS-CoV-2 have not been fully determined. Collection of multiple specimens (types and time points) from the same patient may be necessary to detect the virus. The test was validated for use with upper respiratory specimens obtained via nasopharyngeal or oropharyngeal swabs in VTM, UTM, M4, M5, M6, saline, and MTM media. The performance of this test has not been established for other specimens. Specimens collected using other FDA recommended Specimen Collection Materials listed in the FDA COVID-19 [employer] communication (May 19, 2019) are processed with the caveat that they were not all validated for use with this test and the result must be interpreted in this context. Furthermore, a false negative results may occur if a specimen is improperly collected, transported or handled. If the virus mutates in the RT-PCR target region, SARS-CoV-2 may not be detected or may be detected less predictably. Inhibitors or other types of interference may produce a false negative result. An interference study evaluating the effect of common cold medications was not performed. This test is not FDA-cleared but its performance characteristics were established by our CLIA-certified, CAP-accredited, high complexity laboratory in accordance with CLIA regulations, [employer] [place] [employer] (CAP) guidelines (May 12, 2019), and FDA guidance (Apr 23, 2019). This test is only for use under the Food and Drug Administration's Emergency Use Authorization. Performing Lab [facility] 03/07/2020 21:48 EST [facility] Swab 03/06/2020 14:3 8 EST 03/06/2020 20:44 EST Provider Outr Resulting Lab MICROBIOLOGY - GENERAL ORDERABLES [facility] [address] [place] [address] [facility] [place] documented in this encounter Visit Diagnoses Not on filedocumented in this encounter Care Teams Plant Anatomy Teacher Relationship Specialty Start Date End Date Nadja Doan FNP [address], [place] [id number] PCP - General 12/24/18 Butch Yanes MD [address] [place] [phone] 12/24/18 documented as of this encounter
--- OUTSIDE RECORDS SUMMARY | 2023-10-31 10:22 | XMS_ITS | Continuity of Care Document ---
Author Organization [facility] Address [address] [place] [id number] Care Team Providers Care Woodenware Assembler Name Role Phone KEVEN PURI DNP Primary Care Physician Encounter [facility] NBR [id number] Date(s): 01/23/23 - 01/23/[address] [address]- [place] Discharge Disposition: Home or Self Care Attending Physician: KEVEN PURI DNP Admitting Physician: KEVEN PURI DNP Referring Physician: KEVEN PURI DNP Allergies, Adverse Reactions, Alerts Substance Reaction Severity Status vancomycin Mild Active formoterol Unknown Unknown Active budesonide-formoterol Unknown Unknown Active Symbicort Mild Active formoterol-mometasone Unknown Unknown Active Cats Unknown Unknown Active Dogs Unknown Unknown Active Tape Unknown Active Banana Mild Active Caribou Mild Active Dust Unknown Unknown Active Assessment and Plan Future Appointments Medications amitriptyline 10 mg oral tablet 10 mg = 1 tab, Oral, every night at bedtime RT, Taken 10 mg at bedtime, # 90 tab, 3 Refill(s), Pharmacy: [id number] Start Date: 10/08/22 Status: Ordered amoxicillin 500 mg oral tablet 1,000 mg = 2 tab, Oral, TID, X 5 days, # 30 tab, 0 Refill(s), 01/28/23 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, Pharmacy: [id number], 165.1, cm, 12/10/22 8:12:00 EDT, Height Start Date: 01/23/23 Stop Date: 01/28/23 Status: Ordered doxycycline hyclate 100 mg oral capsule 100 mg = 1 cap, Oral, BID, X 7 days, # 14 cap, 0 Refill(s), 01/30/23 4:16:00 PM SHEET METAL JOURNEYMAN, Pharmacy: [facility], 165.1, cm, 12/10/22 8:12:00 EDT, Height [...] TID, # 180 cap, 6 Refill(s), Pharmacy: [id number] Start Date: 12/10/22 Status: Ordered LORazepam [...] Confirmed Active Results Laboratory List Name Date Automated Diff 01/23/23 .Morphology (LTTL) 01/23/23 CBC w/ Diff 01/23/23 Comprehensive Metabolic Panel 01/23/23 D-Dimer 01/23/23 Most recent to oldest [Reference Range]: 1 WBC [4.8-10.8 K/mcL] 5.2 K/mcL (01/23/23 12:42 PM) RBC [4.20-5.40 Million/mcL] 5.10 Million /mcL (01/23/23 12:42 PM) Neutro Auto [42.2-75.2 %] 64.6 % (01/23/23 12:42 PM) Lymph Auto [20.5-51.1 %] 24.8 % (01/23/23 12:42 PM) Lyman Auto [1.7-9.3 %] 9.3 % (01/23/23 12:42 PM) Basophil Auto [0.0-0.8 %] 0.6 % (01/23/23 12:42 PM) BUN [7-25 mg/dL] 6 mg/dL *LOW* (01/23/23 12:42 PM) Glucose Level [70-109 mg/dL] 91 mg/dL (01/23/23 12:42 PM) Potassium Level [3.5-5.1 mmol/L] 3.9 mmo l/L (01/23/23 12:42 PM) Baso Absolute [0.00-0.20 K/mcL] 0.00 K/m cL (01/23/23 12:42 PM) MCV [81.0-99.0 fL] 73.0 fL *LOW* (01/23/23 12:42 PM) RBC Morph [Normal] Abnormal *ABN* (01/23/23 12:42 PM) AST [13-39 IntlUnit/L] 17 IntlUnit/L (01/23/23 12:42 PM) ALT [7-52 IntlUnit/L] 13 IntlUnit/L (01/23/23 12:42 PM) MCHC [32.0-37.0 g/dL] 32.1 g/dL (01/23/23 12:42 PM) Osmolality [275-295 mOsm/kg] 269 mOsm/kg *LOW* (01/23/23 12:42 PM) Sodium Level [136-145 mmol/L] 136 mmol/L (01/23/23 12:42 PM) Lymph Absolute [1.2-3.4 K/mcL] 1.3 K/mcL (01/23/23 12:42 PM) Hct [37.0-47.0 %] 37.2 % (01/23/23 12:42 PM) Microcyte 2+ *ABN* (01/23/23 12:42 PM) Hypochromia 1+ *ABN* (01/23/23 12:42 PM) Calcium Level [8.6-10.3 mg/dL] 9.0 mg/dL (01/23/23 12:42 PM) Lyman Absolute [0.1-0.6 K/mcL] 0.5 K/mcL (01/23/23 12:42 PM) Albumin Level [3.5-5.7 g/dL] 4.3 g/dL (01/23/23 12:42 PM) Protein Total [6.4-8.9 g/dL] 7.2 g/dL (01/23/23 12:42 PM) MCH [27.0-31.0 pg] 23.5 pg *LOW* (01/23/23 12:42 PM) Neutro Absolute [1.4-6.5 K/mcL] 3.3 K/mc L (01/23/23 12:42 PM) Bilirubin Total [0.3-1.0 mg/dL] 0.3 mg/d L (01/23/23 12:42 PM) Hgb [12.0-16.0 g/dL] 12.0 g/dL (01/23/23 12:42 PM) Alk Phos [34-104 IntlUnit/L] 47 IntlUnit /L (01/23/23 12:42 PM) MPV [7.4-10.4 fL] 8.4 fL (01/23/23 12:42 PM) Platelets [130-400 K/mcL] 252 K/mcL (01/23/23 12:42 PM) CO2 [21-31 mmol/L] 26 mmol/L (01/23/23 12:42 PM) Eos Absolute [0.0-0.2 K/mcL] 0.0 K/mcL (01/23/23 12:42 PM) Chloride Level [98-107 mmol/L] 103 mmol/ L (01/23/23 12:42 PM) RDW-CV [11.5-14.5 %] 16.8 % *HI* (01/23/23 12:42 PM) A/G Ratio [1.0-2.5 g/dL] 1.5 g/dL (01/23/23 12:42 PM) BUN/Creat Ratio [8.0-20.0] 6.7 *LOW* (01/23/23 12:42 PM) Globulin [2.3-3.5 g/dL] 2.9 g/dL (01/23/23 12:42 PM) Slide Review Morph Only (01/23/23 12:42 PM) Creatinine Level [0.60-1.20 mg/dL] 0.90 mg/dL (01/23/23 12:42 PM) Plt Estimation Normal (01/23/23 12:42 PM) Anion Gap [3.0-12.0] 7.0 (01/23/23 12:42 PM) D Dimer, (Quant.) [<=500 ng/mL] 683 ng/m L 1 *HI* (01/23/23 12:42 PM) Eos, Auto [0.00-3.00 %] 0.70 % (01/23/23 12:42 PM) eGFR CKD-EPI [>=60 mL/min/1.73 m2] 87 mL /min/1.73 m2 (01/23/23 12:42 PM) 1Interpretive Data: A normal D-dimer result (< or =500 ng/mL FEU) has a negative predicitive value of approximately 95% for the exclusion of acute embolism (PE) or deep vein thrombosis when there is low or moderate pretest PE probability. Social History Social History Type Response Tobacco Never tobacco user, Tobacco use status unknown Tobacco Use:. Sex Patient Care team information Care Team Personnel Name: KEVEN PURI DNP Position: No Access Member Role: Primary Care Physician Address: Address: [address] [address]- Care Team Related Persons Name: JOAQUIM MCCOY Address: Home [address], [place] [id number] [facility] Name: JENIFFER GALLEGOS
--- OUTSIDE RECORDS SUMMARY | 2023-10-31 10:22 | XMS_ITS | Encounter Summary ---
Author Organization [facility] Address [address] [place] [address] Care Team Providers Care Barrel Inspector Name Role Phone Nadja Doan PASCALE Primary Care Provider [phone] Butch Yanes MD Unavailable [phone] Encounter Details Date Type Department Care Team (Late st Contact [facility]) Description 11/12/2021 Lab Requisition [facility] Pathology & Laboratory Medicine - [address] [address] Peggy Steen MD [address] [place] [address] Encounter for other general examination [...] Procedure Name Priority Date/Time Associated Diagnosis Comments SURGICAL PATHOLOGY Today 11/11/2021 14 :20 EDT Encounter for other general examination documented in this encounter Results * SURGICAL PATHOLOGY (11/11/2021 14:20 EDT) Note to Patient The following pathology results have been interpreted by your pathologist and may be available to you before your health provider has had the opportunity to review them. Please allow time for your provider to receive these results and explore management options, if applicable. 11/14/2021 11:29 [facility] Final Diagnosis A. CERVIX, 12 O'CLOCK, 6 O'CLOCK, BIOPSY: - Fragments of low-grade squamous intraepithelial lesion (TAN 1). B. ENDOCERVIX, CURETTAGE: - Fragments of transformation zone mucosa with squamous metaplasia and abundant blood. 11/14/2021 11:29 [facility] Attestation There was significant resident/fellow involvement in the diagnostic evaluation of this case. By the signature below, the attending physician certifies that they have personally conducted a gross and/or microscopic examination of the described specimens and rendered or confirmed the above diagnosis. 11/14/2021 11:29 [facility] at 1129 Clinical History LSIL/HPV+ 11/14/2021 11:29 [facility] Gross Description A. Received in formalin labelled with proper patient identification (initials R, S) and cervix 12 o'clock and 6 o'clock are 2 coe-pink mucinous tissues measuring 0.2 x 0.2 x 0.1 cm and 0.4 x 0.3 x 0.1 cm. Submitted intact in A1. B. Received in formalin labelled with proper patient identification (initials R, S) and ECC is an aggregate of clotted blood measuring 0.6 x 0.6 x 0.2 cm. Submitted entirely in B1. TRISHA DUMONT(ASCP) 11/12/2021 18:52 11/14/2021 11:29 [facility] Resident/Jim w: Roz Ghotra DO 11/14/2021 11:29 [facility] Performing Lab [facility] 11:29 [facility] Scanned Images 11/14/2021 11:29 [facility] Tissue ENTIRE ENDOCERVIX / Unknown 11/11/2021 14:20 EDT 11/12/2021 12:10 EDT Tissue specimen (specimen) ENDOCERVICAL STRUCTURE / Unknown 11/11/2021 14:20 EDT 11/12/2021 12:10 EDT Peggy Steen MD PATHOLOGY ORDERABLES [facility] [address] [place] [address] documented in this encounter Visit Diagnoses Diagnosis Encounter for other general examination documented in this encounter Care Teams Barrel Inspector Relationship Specialty Start Date End Date Nadja Doan FNP [address] [place] [address] PCP - General 12/24/18 Butch Yanes MD [address] [place] [id number] 12/24/18 documented as of this encounter
--- OUTSIDE RECORDS SUMMARY | 2023-10-31 10:22 | XMS_ITS | Referral Summary ---
Author Organization [facility] Address [address] [place] [address] Care Team Providers Care Admission Specialist Name Role Phone Nadja Doan PASCALE Primary Care Provider [phone] Butch Yanes MD Unavailable Allergies Active Allergy Reactions Criticality Noted Date Comments Banana Low 05/28/2009 Medications Medication Sig Dispensed Refills Start Date End Date Status VITS W-CA,FE,FA,<1MG, ( #2 ORAL) Take 1 Tab by mouth daily. Active Immunizations Name Administration Dates Next Due Covid-19 mRNA Vaccine (MODER NA COVID-19) PF 0.5 ml IM (12 yrs+) 05/01/2020,04/03/2020 Social History Tobacco Use Types Packs/Day Years [...] on file Sexual Orientation Not on file Last Filed Vital Signs Vital Sign Reading Time Taken Comments Blood Pressure 100/68 06/08/2009 1125 EDT Pulse 93 06/08/2009 1125 EDT Temperature 36.3 ??C (97.3 ??F) 06/08/2009 1125 EDT Respiratory Rate 18 06/08/2009 1125 EDT Oxygen Saturation 99% 06/08/2009 1125 EDT Inhaled Oxygen Concentration - - Weight 71.2 kg (157 lb) 06/07/20092029 EDT Height 165.1 cm (5' 5) 05/24/20092039 EDT Body Mass Index 26.13 05/24/20092039 EDT Plan of Treatment Not on file Procedures Procedure Name Priority Date/Time Associated Diagnosis Comments HEPATITIS C AB W REFLEX TO HCV RNA BY PCR Routine 03/13/2021 12:07 EST from Last 3 Months or Most Recently Relevant to Health Maintenance Results * HEPATITIS C AB W REFLEX TO HCV RNA BY PCR (03/13/2021 12:07 EST) Hep C Antibody Negative Negative 03/14/2021 9:[address] [facility] Blood VENOUS BLOOD / Unknown 03/13/2021 12:07 EST 03/13/2021 21:07 EST Provider Outr Resulting Lab CHEMISTRY & BLOOD GAS ORDERABLES Performing Organization Address City/State/[facility] Co de Phone Number [facility] [address] [place] [address] from Last 3 Months or Most Recently Relevant to Health Maintenance Advance Directives For more information, please contact: [phone] * Full Code (Latest Code Status on File) Date Activated Date Inactivated Comments 05/25/2009 17:26 06/08/2009 17:01 * Full Code Date Activated Date Inactivated Comments 05/24/2009 20:57 05/25/2009 17:26 Care Teams Admission Specialist Relationship Specialty Start Date End Date Nadja Doan FNP [address] [facility] [place] [address] PCP - General 12/24/18 Butch Yanes MD [address] [phone] 12/24/18
--- OUTSIDE RECORDS SUMMARY | 2023-10-31 10:22 | XMS_ITS | Clinical Summary ---
Author Organization [facility] Address [address] [place] [address] Care Team Providers Care Senior Construction Manager Name Role Phone Nadja Doan PASCALE Primary Care Provider [phone] Butch Yanes MD Unavailable [phone] Allergies Active Allergy Reactions Criticality Noted Date Comments Banana Low 05/28/2009 Medications Medication Sig Dispensed Refills Start Date End Date Status VITS W-CA,FE,FA,<1MG, ( #2 ORAL) Take 1 Tab by mouth daily. Active Immunizations Name Administration Dates Next Due Covid-19 mRNA Vaccine (MODER NA COVID-19) PF 0.5 ml IM (12 yrs+) 05/01/2020,04/03/2020 Medical History Medical History Date Comments Asthma Social History Tobacco Use Types Packs/Day Years [...] on file Sexual Orientation Not on file Obstetrics History Para Term AB IAB SAB Ectopic Multiple Livin g Live Births 1 Date Outcome GA Total Labor Labor/2nd/3rd Weight Sex Type Anes PTL Linh A1 A5 Name Clin Current Last Filed Vital Signs Vital Sign Reading [...] Index 26.13 05/24/20092039 EDT Plan of Treatment Health Maintenance Due Date Last Done Comments Hepatitis B Vaccine (1 of 3 - 19+ 3-dose series) 2009 COVID-19 Vaccine (3 - 2022- season) 10/24/202210/2020, 04/03/2020 RSV Immunization ( o r 60+ Years) (1 - 1-dose 60+ series) 2050 Hepatitis C Screen Completed 03/13/2021, 07/16/2020 Procedures Procedure Name Priority Date/Time Associated Diagnosis Comments HEPATITIS C AB W REFLEX TO HCV RNA BY PCR Routine 03/13/2021 12:07 EST from Last 3 Months or Most Recently Relevant to Health Maintenance Results * HEPATITIS C AB W REFLEX TO HCV RNA BY PCR (03/13/2021 12:07 EST) Hep C Antibody Negative Negative 03/14/2021 9:47 EST [facility] Blood VENOUS BLOOD / Unknown 03/13/2021 12:07 EST 03/13/2021 21:07 EST Provider Outr Resulting Lab CHEMISTRY & BLOOD GAS ORDERABLES [facility] [address] [place] [address] from Last 3 Months or Most Recently Relevant to Health Maintenance Advance Directives For more information, please contact: [phone] * Full Code (Latest Code Status on File) Date Activated Date Inactivated Comments 05/25/2009 17:26 06/08/2009 17:01 * Full Code Date Activated Date Inactivated Comments 05/24/2009 20:57 05/25/2009 17:26 Care Teams Senior Construction Manager Relationship Specialty Start Date End Date Nadja Doan FNP [address] [place] [address] PCP - General 12/24/18 Butch Yanes MD [address] [place] [phone] 12/24/18
--- OUTSIDE RECORDS SUMMARY | 2023-10-31 10:22 | XMS_ITS | Continuity of Care Document ---
Author Organization [facility] Ambulatory Clinics Address [address] [place] [address] Care Team Providers Care Dye Stand Loader Name Role Phone KEVEN PURI DNP Primary Care Physician [phone] Encounter [facility] NBR [id number] Date(s): 08/21/23 - 08/21/23 [facility] Ambulatory Clinics [address] [place] [address]- Encounter Diagnosis Bilateral sacroiliitis(Discharge Diagnosis) - 08/21/23 Discharge Disposition: Home or Self Care Attending Physician: WALT Mcdowell Referring Physician: KEVEN PURI DNP Allergies, Adverse Reactions, Alerts Substance Reaction Severity Status vancomycin Mild Active formoterol Unknown Unknown Active Cats Unknown Unknown Active Tape Unknown Active Dust Unknown Unknown Active Crosby Mild Active budesonide-formoterol Unknown Unknown Active Symbicort Mild Active formoterol-mometasone Unknown Unknown Active Dogs Unknown Unknown Active Banana Mild Active Assessment and Plan Extracted from: Title:Office Visit Note Author:ALPHONSO Mcdowell Date:08/21/23 1.??Bilateral sacroiliitis?? M46.1 The patient has been struggling with 6 months of persistent low back pain.?? She is not experiencing any radicular symptoms.?? She does have numbness affecting both of her feet but this is a chronic issue that has not changed despite the??onset of the low back pain.?? The patient states that her and her PCP were somewhat confused??as she has had now??2 CT scans??reporting bilateral sacroiliitis from 2 different radiologist but has also had an MRI of the lumbar spine and an MRI of the pelvis that did not report any SI joint abnormality.?? I did explain the patient that CT imaging is typically more??helpful in diagnosing SI joint problems.?? After reviewing her imaging today I would agree that there are arthritic and inflammatory changes in the bilateral SI joints.?? The patient was asking about the possibility of ankylosing spondylitis and she was reassured that at this point I do not see any evidence of ankylosing in the spine but given her young age this would not be completely unusual. ??If her pain is persistent she can pursue this further with her PCP??as this is an autoimmune problem.?? Again, I am more suspicious of a sacroiliitis.?? On her exam today she does have tenderness over the bilateral SI joints.?? We discussed that more often than not this problem does not require surgical correction and is often managed with??multiple modalities of therapy and injections.?? She is going to look into purchasing an SI joint belt and would like referral to the pain clinic for consideration of injections though she is somewhat hesitant??about the injections for concerns of how painful they will be. Plan: Referral to the pain clinic for??evaluation of bilateral sacroiliitis. ?? Future Appointments Medications [facility] Prescription 180 EA, 0 Refill(s), TAKE ONE [...] TID, # 180 cap, 6 Refill(s), Pharmacy: [facility] Start Date: 12/10/22 Status: Ordered LORazepam 0.5 mg oral tablet 2 EA, 0 Refill(s), 0 Refill(s) Start Date: 08/06/23 Status: Ordered metoprolol succinate 50 mg oral tablet, extended release 50 mg = 1 tab, Oral, BID, # 180 tab, 1 Refill(s), Pharmacy: [facility], 165.1, cm, 05/07/23 15:22:00 EDT, Height, [...] headache, # 90 tab, 1 Refill(s), Pharmacy: [facility], 165.1, cm, 03/05/23 7:56:00 EST, Height, [...] 2 hours, #12 tab, 1 Refill(s), Pharmacy: [facility], 165.1, cm, 08/06/23 7:59:00 EDT, Height, [...] Most recent to oldest [Reference Range]: 1 Temperature Temporal Artery [36-38 Deg C ] 36.3 Deg C (08/21/23 1:24 PM) Peripheral Pulse Rate [60-100 bpm] 104 b pm *HI* (08/21/23 1:24 PM) Blood Pressure [90-140/60-90 mmHg] 118/7 4mmHg (08/21/23 1:24 PM) Mean Arterial Pressure, Cuff [65-140 mmH g] 89 mmHg (08/21/23 1:24 PM) Social History Social History Type Response Tobacco Never tobacco user, Tobacco use status unknown Tobacco Use:. Sex Physician Outpatient Note * Atiya Reno APRN-BILL RECAPITULATION CLERK: PERFORM Event Display: Office Clinic Note Physician Authored Date: [id number] KIANA ISABEL I :1990 Age:33 years Sex:Female Visit Date:08/21/2023 Primary Care Physician: KEVEN PURI DNP Chief Complaint Lower back pain History of Present Illness The patient presents for evaluation of her low back pain. ??The patient has been seen previously int spine center for evaluation of her cervical spine problem.?? She states she began struggling with her low back pain??about 6 months ago. ??She denies any??injury.?? She says the pain is right across the low back and is equal on either side.?? This does not radiate into the lower extremities. ??She does have chronic numbness affecting her feet as well as the upper extremities which is unchanged.?? She does follow with neurology for her migraines and POTS.?? She states that her pain is worse??with activity and moving but particular when she has to get up from??a seated or laying position when she has been there for a while.?? At times he can be helpful but overall not much??helps with herpain. ??She has tried Tylenol and ibuprofen with??no relief. ??The patient also did physical therapy??which again provided no relief.?? The patient does recall that when she had her last child 2 years ago she did have quite significant back pain and at 1 point actually lost feeling in both of her legs.?? Both the pain and the sensory issue did improve after she gave . ?? Review of Systems Relevant ROS discussed in HPI Physical Exam Vitals & Measurements T:??36.3?C ??(Temporal Artery)?? HR:??104??(Peripheral)?? BP:??118/74?? SpO2:??100%?? GENERAL:?General Appearance:?pleasant, age appropriate in no apparent distress.?? MUSCULOSKELETAL:?Musculoskeletal:??Mild tenderness over the lower lumbar spine and sacral region as well as over the bilateral SI joints. NEUROLOGICAL:?Neurological:?? Negative straight leg bilaterally??from a seated position. ?Motor:?Strength 5/5 with bilateral hip flexion, knee flexion and extension, ankle dorsiflexion and plantar flexion.?Reflexes:?2+ and symmetric in biceps, triceps, brachioradialis??and ankles bilaterally.?? 3+ bilateral knee jerks.?? Negative Della's bilaterally. ? Tone: normal? Gait:?normal.? Assessment/Plan 1.??Bilateral sacroiliitis??M46.1 The patient has been struggling with 6 months of persistent low back pain.?? She is not experiencing any radicular symptoms.?? She does have numbness affecting both of her feet but this is a chronic issue that has not changed despite the??onset of the low back pain.?? The patient states that her and her PCP were somewhat confused??as she has had now??2 CT scans??reporting bilateral sacroiliitis from 2 different radiologist but has also had an MRI of the lumbar spine and an MRI of the pelvis that did not report any SI joint abnormality.?? I did explain the patient that CT imaging is typically more??helpful in diagnosing SI joint problems.?? After reviewing her imaging today I would agree that there are arthritic and inflammatory changes in the bilateral SI joints.?? The patient was asking about the possibility of ankylosing spondylitis and she was reassured that at this point I do not see any evidence of ankylosing in the spine but given her young age this would not be completely unusual. ??If her pain is persistent she can pursue this further with her PCP??as this is an autoimmune pr oblem.?? Again, I am more suspicious of a sacroiliitis.?? On her exam today she does have tenderness over the bilateral SI joints.?? We discussed that more often than not this problem does not require surgical correction and is often managed with??multiple modalities of therapy and injections.?? She is going to look into purchasing an SI joint belt and would like referral to the pain clinic for consideration of injections though she is somewhat hesitant??about the injections for concerns of howpainful they will be. Plan: Referral to the pain clinic for??evaluation of bilateral sacroiliitis. Referral Orders Referral Management, Medical Service: Pain Management, Reason: Low back pain, bilateral sacroiliitis, Start: 08/21/23, Instructions: Dr. Orozco Problem List/Past Medical History Ongoing Anemia Anxiety Asthma Bilateral sacroiliitis Cervical spondylosis Insomnia Menstrual abnormality Migraine headache with aura Migraine with aura, not intractable, without status migrainosus Neck pain Neuroforaminal stenosis of cervical spine Paresthesias POTS (postural orthostatic tachycardia syndrome) Sleep apnea Historical No qualifying data Medications AAA - Misc Prescription albuterol 1.25 mg/3 mL (0.042%) inhalation solution amitriptyline 25 mg oral tablet amoxicillin 400 mg/5 mL oral liquid benzonatate 100 mg oral capsule Cartia XT 120 mg/24 hours oral capsule, extended release cefdinir 250 mg/5 mL oral liquid cephalexin 500 mg oral capsule Dupixent Pre-filled Pen 300 mg/2 mL subcutaneous solution, 300 mg, Subcutaneous, every 2 wk eletriptan 20 mg oral tablet fluconazole 150 mg oral tablet fluticasone 50 mcg/inh nasal spray gabapentin 100 mg oral capsule, 100 mg= 1 cap, Oral, TID, 6 refills LORazepam 0.5 mg oral tablet metoprolol succinate 50 mg oral tablet, extended release, 50 mg= 1 tab, Oral, BID, 1 refills montelukast 10 mg oral tablet, 10 mg= 1 tab, Oral, Daily naproxen 500 mg oral tablet, 500 mg= 1 tab, Oral, As Directed, PRN, 1 refills predniSONE 10 mg oral tablet predniSONE 20 mg oral tablet Relpax 20 mg oral tablet, 20 mg= 1 tab, Oral, Daily, PRN, 1 refills SUMAtriptan 50 mg oral tablet Trelegy Ellipta 200 mcg-62.5 mcg-25 mcg/inh inhalation powder Ventolin HFA 90 mcg/inh inhalation aerosol Vienva 100 mcg-20 mcg oral tablet Allergies Banana Crosby Symbicort vancomycin Cats??(Unknown) Dogs??(Unknown) Dust??(Unknown) Tape budesonide-formoterol??(Unknown) formoterol??(Unknown) formoterol-mometasone??(Unknown) Social History Alcohol Never Electronic Cigarette/Vaping Electronic Cigarette Use: Never, Unknown/not obtained. Tobacco Never tobacco user, Tobacco use status unknown Tobacco Use:. Family History Hypertension: Father. Diagnostic Results Diagnostic Study Interpretation: MRI of the lumbar spine was personally reviewed.?? There is mild disc desiccation at L4-5 and mild facet changes at the lower 2 lumbar spine levels but there is no evidence of any nerve root compression or lumbar spinal stenosis. The patient's CT of the abdomen pelvis from June 2023 was also reviewed with her.?? There is evidence of inflammation and arthritic changes in the bilateral SI joints. Electronically Signed on 08/21/2023 13:50 EDT Atiya Reno APRN-BILL RECAPITULATION CLERK Patient Care team information Care Team Personnel Name: KEVEN PURI DNP Position: No Access Member Role: Primary Care Physician Address: Address: [place] [address]- Care Team Related Persons Name: JOAQUIM MCCOY Address: Home [address] [place], [place] [id number] [facility] Name: JENIFFER GALLEGOS Name: MERLE JARRETT Address: Home [address] [id number]
--- OUTSIDE RECORDS SUMMARY | 2023-10-31 10:22 | XMS_ITS | Continuity of Care Document ---
Author Organization [facility] Address [address] [place] [id number] Encounter [facility] NBR [id number] Date(s): 02/04/22 - 02/04/[address] [address] [place] Encounter Diagnosis Encounter for occupational health examination(Discharge Diagnosis) - 02/04/22 Discharge Disposition: Home or Self Care Attending Physician: Ashely Gonzalez APRN Assessment and Plan Diagnostic Tests Pending * Mumps Antibodies, IgG LC 02/04/22 * Rubella IgG 02/04/22 * Rubeola Antibodies, IgG LC 02/04/22 * Varicella Zoster Antibody IgG 02/04/22 * QuantiFERON-TB Plus(Client Incubated) LC 02/04/22
--- OUTSIDE RECORDS SUMMARY | 2023-10-31 10:22 | XMS_ITS | Continuity of Care Document ---
Author Organization [facility] Address [address] [place] [phone] Care Team Providers Care Client Experience Consultant Name Role Phone KEVEN PURI DNP Primary Care Physician [phone] Encounter [facility] NBR [id number] Date(s): 04/23/23 - 04/24/[address] [address] [place] Encounter Diagnosis Obstructive sleep apnea (adult) (pediatric)(Final) - Discharge Disposition: Home or Self Care Attending Physician: NORA SMYTH Admitting Physician: NORA SMYTH Referring Physician: NORA SMYTH Allergies, Adverse Reactions, Alerts Substance Reaction Severity Status vancomycin Mild Active formoterol Unknown Unknown Active budesonide-formoterol Unknown Unknown Active Symbicort Mild Active formoterol-mometasone Unknown Unknown Active Cats Unknown Unknown Active Dogs Unknown Unknown Active Tape Unknown Active Banana Mild Active Boise Mild Active Dust Unknown Unknown Active Assessment and Plan Future Appointments Medications albuterol [...] bedtime, # 90 tab, 6 Refill(s), Pharmacy: [facility] #[facility], 165.1, cm, 12/10/22 8:12:00 EDT, Height [...] # 180 cap, 6 Refill(s), Pharmacy: [facility] Start Date: 12/10/22 Status: Ordered metoprolol succinate 25 mg oral capsule, extended release 25 mg = 1 cap, Oral, BID, # 90 cap, 3 Refill(s), Pharmacy: [facility] #93, 165.1, cm, 03/05/23 7:56:00 EST, Height, [...] headache, # 90 tab, 1 Refill(s), Pharmacy: [facility] #93, 165.1, cm, 03/05/23 7:56:00 EST, Height, 76.11, kg, 03/05/23 8:01:00 EST, Weight Dosing Start Date: 03/05/23 Status: Ordered SUMAtriptan 50 mg oral tablet 50 mg = 1 tab, Oral, Once, PRN as needed for migraine headache, may repeat dose after 2 hours up toa maximum of 200 mg in 24 hours, # 18 tab, 1 Refill(s), Pharmacy: [facility] #93, 165.1, cm, 03/05/23 7:56:00 EST, Height, [...] Member Role: Primary Care Physician Address: Address: [address] Care Team Related Persons Name: JOAQUIM MCCOY Address: Home [address] [place], [place] [id number] [facility] Name: JENIFFER GALLEGOS Name: MERLE JARRETT Address: Home [address] [address]
--- OUTSIDE RECORDS SUMMARY | 2023-10-31 10:22 | XMS_ITS | Encounter Summary ---
Author Organization [facility] Address [address] [place] [address] Care Team Providers Care Quality Assurance Project Manager Name Role Phone LilianNadja bolivar PASCALE Primary Care Provider [phone] Butch Yanes MD Unavailable [phone] Encounter Details Date Type Department Care Team (Late st Contact Info) Description 2021 Lab Requisition [facility] Pathology & Laboratory Medicine - [address] [id number] Outr Resulting Lab, Provider Social History Tobacco [...] Comments ZZCOVID-19 TEST [facility] PCR Today 2021 10:15 EST COVID-19 TESTING Routine 2021 10:1 5 EST documented in this encounter Results * COVID-19 TEST [facility] PCR (2021 10:15 EST) Swab 2021 10:1 5 EST 2021 21:06 EST Provider Outr Resulting Lab MICROBIOLOGY - GENERAL ORDERABLES Performing Organization Address City/[facility] Co de Phone Number [facility] [address] [place] [address] * COVID-19 TESTING (2021 10:15 EST) COVID-19 rt-PCR Result Negative Negative 03/12/2021 0:56 EST [facility] Comment: This [...] history, and epidemiological information. Performed on the Ligandalher Fusion instrument Performing Lab [facility] Lab 03/12/2021 0:56 EST [facility] Swab 2021 10:1 5 EST 2021 21:06 EST Provider Outr Resulting Lab MICROBIOLOGY - GENERAL ORDERABLES Performing Organization Address City/[facility]/ZIP Co de Phone Number [facility] [address] [place] [address] documented in this encounter Visit Diagnoses Not on filedocumented in this encounter Care Teams Quality Assurance Project Manager Relationship Specialty Start Date End Date Nadja Doan FNP Robert [facility] [place] [address] PCP - General 12/24/18 Butch Yanes MD [address] [place] [phone] 12/24/18 documented as of this encounter
--- OUTSIDE RECORDS SUMMARY | 2023-10-31 10:22 | XMS_ITS | Continuity of Care Document ---
Author Organization [facility] Address [address] [place] [address] Care Team Providers Care Audio/Video Technician Name Role Phone KEVEN PURI DNP Primary Care Physician [phone] Encounter [facility] NBR [id number] Date(s): 06/12/23 - 06/12/[address] [address] [place] Discharge Disposition: Home or [...] Active Tape Unknown Active Banana Mild Active Cascade Mild Active Dust Unknown Unknown Active Assessment [...] TID, # 180 cap, 6 Refill(s), Pharmacy: [facility] Start Date: 12/10/22 Status: Ordered metoprolol succinate 50 mg oral tablet, extended release 50 mg = 1 tab, Oral, BID, # 180 tab, 1 Refill(s), Pharmacy: [facility] #93, 165.1, cm, 05/07/23 15:22:00 EDT, Height, [...] headache, # 90 tab, 1 Refill(s), Pharmacy: [facility] #93, 165.1, cm, 03/05/23 7:56:00 EST, Height, 76.11, kg, 03/05/23 8:01:00 EST, Weight Dosing Start Date: 03/05/23 Status: Ordered Relpax 20 mg oral tablet 20 mg = 1 tab, Oral, Daily, PRN as needed for migraine headache, may repeat dose once in 2 hours, #6 tab, 0 Refill(s), Pharmacy: [facility] #93, 165.1, cm, 05/07/23 15:22:00 EDT, Height, [...] Exam Date Time Procedure Performing Provider Status 06/12/23 1:56 PM MRI Pelvis w/o Contrast Brianna Keita; Auth (Verified) Notes: (MRI Pelvis w/o Contrast) Reason For Exam: SACROILIITIS MRI Pelvis w/o Contrast EXAM DESCRIPTION: MRI Pelvis w/o Contrast 06/12/2023 1:56 INDICATION: SACROILIITIS TECHNIQUE: MRI examination of the pelvis with attention directed to the sacrum and SI joints in 3 planes utilizing small [id number] images with T1, fat-suppressed T2 and fast stir technique. COMPARISON: None FINDINGS: SI joints appear normal and symmetric with no periarticular marrow edema to suggest arthritic process or sacroiliitis. No SI joint fluid on either side. No suspicious regional marrow lesions. No mass or adenopathy in the visualized portions of the pelvis. Uterus and ovaries appear within normal limits. IMPRESSION: Normal MRI examination of the sacrum and SI joints. JOB #: [id number] Final Signed by: Amor Trotter MD Signed (Electronic Signature): 06/12/2023 2:11 pm * Exam Date Time Procedure Performing Provider Status 06/12/23 1:56 PM MRI Spine Lumbar w/o Contrast Felicia Ricketts; Auth (Verified) Notes: (MRI Spine Lumbar w/o Contrast) Reason For Exam: SACROILIITIS MRI Spine Lumbar w/o Contrast EXAM DESCRIPTION: MRI Spine Lumbar w/o Contrast 06/12/2023 INDICATION: SACROILIITIS TECHNIQUE: Multiplanar MRI examination of the lumbar spine utilizing T1, fat-suppressed T2 and fast STIR technique. COMPARISON: None FINDINGS: Lumbar lordosis is satisfactory. Mild scoliosis which may be positional L5-S1: Mild broad-based left paracentral disc extrusion. No significant spinal stenosis or neural foraminal narrowing. L4-5: No focal disc protrusion, significant spinal stenosis or neural foraminal narrowing. L3-4: No focal disc protrusion, significant spinal stenosis or neural foraminal narrowing. L2-3: No focal disc protrusion, significant spinal stenosis or neural foraminal narrowing. L1-2: No focal disc protrusion, significant spinal stenosis or neural foraminal narrowing. No significant stenosis in the visualized lower thoracic spine The conus is normal in morphology and signal intensity and terminates at the L1 level. No suspicious regional marrow lesions. No vertebral body compression deformity in the lumbar region Paraspinal soft tissues are unremarkable. IMPRESSION: Mild broad-based left paracentral disc extrusion at L5-S1 without significant stenosis or neural foraminal narrowing Remaining levels demonstrate no focal disc protrusion or significant stenosis Normal conus. JOB #: [id number] Final Signed by: Amor Trotter MD Signed (Electronic Signature): 06/12/2023 2:02 pm Social History Social History Type Response Tobacco Never tobacco user, Tobacco use status unknown Tobacco Use:. Sex Patient Care team information Care Team Personnel Name: KEVEN PURI DNP Position: No Access Member Role: Primary Care Physician Address: Address: [place] [address]- Care Team Related Persons Name: JOAQUIM MCCOY Address: Home [address] [place], [place] [id number] [facility] Name: JENIFFER GALLEGOS Name: MERLE JARRETT Address: [address] [place] [address]
--- OUTSIDE RECORDS SUMMARY | 2023-10-31 10:22 | XMS_ITS | Encounter Summary ---
Author Organization [facility] Address [address] [place] [address] Care Team Providers Care Cylinder Steamer Name Role Phone OlimpiaNadja PASCALE Primary Care Provider [phone] Butch Yanes MD Unavailable [phone] Encounter Details Date Type Department Care Team (Late st Contact Info) Description 07/17/2020 Lab Requisition [facility] Pathology & Laboratory Medicine - [facility] [address] [place], [place] [phone] Outr Resulting Lab, Provider Social History Tobacco [...] Procedure Name Priority Date/Time Associated Diagnosis Comments CHLAMYDIA/N. GONORRHOEAE AMPLIFIED NUCLEIC ACID Routine 07/16/2020 14:35 EDT documented in this encounter Results * CHLAMYDIA/N. GONORRHOEAE AMPLIFIED RNA (07/16/2020 14:35 EDT) Neisseria gonorrhoeae Result Negative Negative 07/18/2020 14:00 EDT [facility] Chlamydia trachomatis Result Negative Negative 07/18/2020 14:00 EDT [facility] Urine URINE / Unknown 07/16/2020 1 4:35 EDT 07/17/2020 16:30 EDT Narrative [facility] - 07/18/2020 14:00 EDT A first catch urine specimen is acceptable for detection of Gonorrhea and Chlamydia, but might detect up to 10% fewer infections when compared with vaginal and endocervical swab samples. Provider Outr Resulting Lab MICROBIOLOGY - GENERAL ORDERABLES [facility] [address] [place] [address] documented in this encounter Visit Diagnoses Not on filedocumented in this encounter Care Teams Cylinder Steamer Relationship Specialty Start Date End Date Nadja Doan FNP [address] [place] [address] PCP - General 12/24/18 Butch Yanes MD [address] [place] [phone] 12/24/18 documented as of this encounter
--- OUTSIDE RECORDS SUMMARY | 2023-10-31 10:22 | XMS_ITS | Encounter Summary ---
Author Organization [facility] Address [address] [place] [address] Care Team Providers Care Blower Mechanic Name Role Phone LilianNadja bolivar PASCALE Primary Care Provider [phone] Butch Yanes MD Unavailable [phone] Encounter Details Date Type Department Care Team (Late st Contact Info) Description 11/08/2020 Lab Requisition [facility] Pathology & Laboratory Medicine - [address] [id number] Outr Resulting Lab, Provider Social History Tobacco [...] Priority Date/Time Associated Diagnosis Comments ZZCOVID-19 TEST [facility] Today 11/06/2020 19:00 EDT COVID-19 TESTING Routine 11/06/2020 19:0 0 EDT documented in this encounter Results * COVID-19 TEST [facility] PCR (11/06/2020 19:00 EDT) Swab ENTIRE NASOPHARYNX / Unknown 11/06/2020 19:00 EDT 11/08/2020 15:57 EDT Provider Outr Resulting Lab MICROBIOLOGY - GENERAL ORDERABLES [facility] [address] [place] [address] * COVID-19 TESTING (11/06/2020 19:00 EDT) COVID-19 rt-PCR Result Negative Negative 11/08/2020 20:20 EDT [facility] Comment: This test has [...] history, and epidemiological information. Performed on the [employer] Fusion instrument Performing Lab [place] [facility] 11/08/2020 20:20 EDT [facility] Swab 11/06/2020 19:0 0 EDT 11/08/2020 15:57 EDT Provider Outr Resulting Lab MICROBIOLOGY - GENERAL ORDERABLES [facility] [address] [place] [address] documented in this encounter Visit Diagnoses Not on filedocumented in this encounter Care Teams Blower Mechanic Relationship Specialty Start Date End Date Nadja [place]an [place] [address] PCP - General 12/24/18 Butch Yanes MD [address] [place] [phone] 12/24/18 documented as of this encounter
--- OUTSIDE RECORDS SUMMARY | 2023-10-31 10:23 | XMS_ITS | Encounter Summary ---
[place] [address] Care Team Providers Care Wearing Apparel Folder Name Role Phone Nadja Doan APRN Primary Care Provider [phone] Encounter Details Date Type Department Care Team (Late st Contact Info) Description 03/05/2021 Telephone Cardiology at [address] [phone] Nessa Roland LNA Social History Tobacco Use Types Packs/Day Years Used Date Smoking Tobacco: Never Smokeless Tobacco: Never Alcohol Use Standard Drinks/Week Comments No 0 (1 standard drink = 0.6 oz pur e alcohol) Sex and Gender Information Value Date Recorded Sex Assigned at Not on file Gender Identity Not on file Sexual Orientation Not on file documented as of this encounter Miscellaneous Notes * Telephone Encounter - Nessa Roland LNA - 03/13/2021 12:22 PM EST No response to [employer] message & Voicemail I left to review medications for 03/13/[address] Chatterjee. documented in this encounter Plan of Treatment Not on file documented as of this encounter Visit Diagnoses Not on filedocumented in this encounter Care Teams Wearing Apparel Folder Relationship Specialty Start Date End Date Nadja Doan APRN [address] [facility] [place] [id number] PCP - General Family Medicine 11/19/20 11/20/22 documented as of this encounter
--- OUTSIDE RECORDS SUMMARY | 2023-10-31 10:23 | XMS_ITS | Encounter Summary ---
Author Organization [facility] [place] [address] Care Team Providers Care Carpet Cleaning Technician Name Role Phone Nadja Doan APRN Primary Care Provider [phone] Reason for Referral * Diagnostic Test (Routine) - Closed Specialty Diagnoses / Procedures Referred By Contac t Referred To Contact Cardiology Diagnoses Tachycardia Procedures Ziopatch 48 Hrs-15 Days Zoran Cristina MD [facility] [place] [address] [facility] [place] [address] Referral ID Status Reason Start Date Expiration Date V isits Requested Visits Authorized [id number] Closed Specialty Service Requested 05/20/2021 11/20/2021 1 1 Reason for Visit * Diagnostic Test (Routine) - Closed Specialty Diagnoses / Procedures Referred By Contac t Referred To Contact Cardiology Diagnoses Tachycardia Procedures Ziopatch 48 Hrs-15 Days Zoran Cristina MD [facility] [place] [address] [facility] [place] [address] Referral ID Status Reason Start Date Expiration Date V isits Requested Visits Authorized [id number] Closed Specialty Service Requested 05/20/2021 11/20/2021 1 1 Encounter Details Date Type Department Care Team (Latest Contact Info) Description 05/20/2021 10:00 AM EDT - 05/20/2021 11:14 AM EDT Hospital Encounter Non-Invasive Cardiology Lab [facility] [place] [address] [place] [address] [address] Nazario Rowe MD [facility] [place] [address] Tachycardia Discharge Disposition: Home Social History Tobacco Use Types Packs/Day Years Used Date Smoking Tobacco: Never Smokeless Tobacco: Never Alcohol Use Standard Drinks/Week Comments No 0 (1 standard drink = 0.6 oz pur e alcohol) Sex and Gender Information Value Date Recorded Sex Assigned at Not on file Gender Identity Not on file Sexual Orientation Not on file documented as of this encounter Medications at Time of Discharge Medication Sig Dispensed Refills Start Date End Date albuteroL (Proventil) 2.5 mg /3 mL (0.083 %) Solution for Nebulization INHALE THE CONTENTS OF 1 VIAL VIA NEBULIZER EVERY 4 TO 6 HOURS DIRECTED NEEDED 11/22/2020 Trelegy Ellipta 100-62.5-25 mcg Disk with Device INHALE ONE PUFF BY MOUTH EVERY DAY 02/06/2021 montelukast (Singulair) 10 mg Tablet Take 10 mg by mouth nightly. documented as of this encounter Plan of Treatment Not on file documented as of this encounter Procedures Procedure Name Priority Date/Time Associated Diagnosis Comments ZIOPATCH 48 HRS-15 DAYS Routine 05/20/2021 10:51 AM EDT Tachycardia documented in this encounter Results * Ziopatch 48 Hrs-15 Days (05/20/2021 10:51 AM EDT) Anatomical Region Laterality Modality Other Narrative 06/12/2021 2:25 PM EDT [facility] ? Zio Patch Ambulatory Cardiac Event Monitor Report Indication for Study: Unspecified tachycardia Duration of recordin days and 6 hours Summary Data: Minimum rate: 67 bpm Average rate: 106 bpm Maximum sinus rate: 169 bpm Predominant Rhythm: Sinus rhythm/sinus tachycardia Atrial fibrillation: None observed Significant Pauses: None observed Ectopic beats: Atrial premature beats (APC? s): There were rare isolated PACs and atrial couplets Ventricular premature beats (VPC's): There were rare isolated PVCs with no ventricular couplets or triplets Patient Diary Events: Triggered Events: There were no patient triggered events Diary Events: There were no diary events Frausto Rhythm Findings: 1. ??The predominant underlying rhythm was sinus rhythm/sinus tachycardia with relatively infrequent PACs and PVCs 2. ??There were no runs of SVT or VT 3. ??There was no atrial fibrillation 4. ??There was no advanced AV block or prolonged pauses Conclusion(s): ?? 1. Predominant Rhythm: Sinus tachycardia with an average rate of 106 bpm and a range of 67 to 169 bpm 2. ??Relatively rare PACs and PVCs ? Chemo Grijalva MD, FA, [facility] Nazario Rowe MD CARDIAC SERVICES ORD ERABLES documented in this encounter Visit Diagnoses Diagnosis Tachycardia Tachycardia, unspecified documented in this encounter Care Teams Carpet Cleaning Technician Relationship Specialty Start Date End Date Nadja Doan, JOSE [address] [place] [address] PCP - General Family Medicine 11/19/20 11/20/22 documented as of this encounter
--- OUTSIDE RECORDS SUMMARY | 2023-10-31 10:23 | XMS_ITS | Encounter Summary ---
Author Organization [facility] [place] [address] Care Team Providers Care Pen Rider Name Role Phone Nadja Doan APRN Primary Care Provider [phone] Encounter Details Date Type Department Care Team (Late st Contact Info) Description 06/13/2021 [place] [address] Zoran Cristina MD [facility] [place] [address] Social History Tobacco Use Types Packs/Day Years [...] encounter Miscellaneous Notes * Telephone Encounter - Zoran Cristina MD - 06/13/2021 3:13 PM EDT I spoke with Miya regarding her Ziopatch result, with no malignant arrhythmias. Sinus tachycardia with average 107bpm, in setting of and POTS. documented in this encounter Plan of Treatment Not on file documented as of this encounter Visit Diagnoses Not on filedocumented in this encounter Care Teams Pen Rider Relationship Specialty Start Date End Date Nadja Doan APRN [address] [place] [address] PCP - General Family Medicine 11/19/20 11/20/22 documented as of this encounter
--- OUTSIDE RECORDS SUMMARY | 2023-10-31 10:23 | XMS_ITS | Encounter Summary ---
Author Organization [facility] Address [address] [place] [address] Care Team Providers Care Miner Placer Name Role Phone Steve Burns MD Primary Care Provider Encounter Details Date Type Department Care Team (Late st Contact Info) Description 06/14/2013 Results Only [facility] Laboratory Services - [facility] [place] [address] [place], [place] [phone] Nena Avilez, [facility] [address] [place] [phone] Social History Tobacco Use Types Packs/Day Years Used Date Smoking Tobacco: Never Alcohol Use Standard Drinks/Week Comments No 0 (1 standard drink = 0.6 oz pur e alcohol) Comments Yes Sex and Gender Information Value Date Recorded Sex Assigned at Not on file Gender Identity Not on file Sexual Orientation Not on file documented as of this encounter Plan of Treatment Not on file documented as of this encounter Procedures Procedure Name Priority Date/Time Associated Diagnosis Comments PAP TEST- RESULT ONLY Routine 06/14/2013 0:00 EDT documented in this encounter Results * PAP TEST- RESULT ONLY (06/14/2013 0:00 EDT) Pathology Report: CYTOPATHOLOGY REPORT Reports generated via electronic interface contain original data; however they are lacking the format of the original report. Caution should be taken when reading/interpreti ng unformatted reports. Name: ? MIYA GUILLEN ? Accession #: ? [id number] ? : ? 1990 (Age: 23) ??F ?Collect Date: ? 06/14/2013 ? Location: ? [facility] ? Receive Date: ? 06/15/2013 ? Provider: NENA AVILEZ HUMAN RESOURCES EXECUTIVE ASSISTANT Copy to: STEVE BURNS MD ? Final Report SPECIMEN ADEQUACY ? Satisfactory for Evaluation - transformation zone component present GENERAL CATEGORIZATION ? Epithelial Cell Abnormality INTERPRETATION ? Squamous Cell Abnormality - Atypical squamous cells, undetermined significance (ASC-US). Shift in matt present suggestive of bacterial vaginosis. EDUCATIONAL NOTES/RECOMMENDATI ONS ? [facility] recommends following ASCCP's 2012 Updated Consensus Guidelines for the Management of Abnormal Cervical Cancer Screening Tests and Cancer Precursors (JLGTD, 2013; 17(5):S1-S27). ??Consensus guidelines are available online at www.asccp.org. Last Menstrual Period: 05/22/13 Hormonal/Contracep tive status: Oral contraceptives Specimen/Source: ??Pap Test, Cervix/Endocervix, ThinPrep Imaging System with manual evaluation Document reviewed and electronically signed by: ? KATIE LEYVA MD PHD ? Report ??Date: 06/28/2013 13:40 HPV with Pap Test ? Date Ordered: ? 06/28/2013 ? Status: ?? Signed Out ?Date Complete: ? 06/30/2013 ? By: ??System Interface ? Date Reported: ? 06/30/2013 ? Interpretation RESULT: Negative for HPV. No E6 or E7 mRNA is detected from HPV types 16,18,31,33,35, 39,45,51,52,56,58, 59,66, and 68 by clother in mediated amplification. Comments Document reviewed and electronically signed by: ? System Interface ? Report date: 06/30/2013 By the signature above, the attending physician certifies that he/she has personally conducted a gross and/or microscopic examination of the described specimens and rendered or confirmed the above diagnosis. End of Report [facility] 06/14/2013 06/15/2013 Nena Avilez [facility] PATHOLOGY ORDERABLES Performing Organization Address City/State/[place] Co de Phone Number [facility] [address] [place] [address] documented in this encounter Visit Diagnoses Not on filedocumented in this encounter Care Teams Miner Placer Relationship Specialty Start Date End Date Steve Burns MD [address] [place] [address] PCP - General 05/24/09 12/23/18 documented as of this encounter
--- OUTSIDE RECORDS SUMMARY | 2023-10-31 10:23 | XMS_ITS | Encounter Summary ---
Author Organization [facility] Address [address] [place] [address] Care Team Providers Care Electrical Design Engineer Name Role Phone Nadja Doan PASCALE Primary Care Provider [phone] Butch Yanes MD Unavailable [phone] Encounter Details Date Type Department Care Team (Late st Contact Info) Description 01/24/2019 Lab Requisition [facility] Pathology & Laboratory Medicine - [address] [address] Devi Ibrahim MD [address] [place] [address] Encounter for other general examination Social History Tobacco Use Types Packs/Day Years Used Date Smoking Tobacco: Never Assessed Comments Yes Sex and Gender Information Value Date Recorded Sex Assigned at Not on file Gender Identity Not on file Sexual Orientation Not on file documented as of this encounter Plan of Treatment Not on file documented as of this encounter Procedures Procedure Name Priority Date/Time Associated Diagnosis Comments SURGICAL PATHOLOGY Today 01/24/2019 10 :03 EST Encounter for other general examination documented in this encounter Results * SURGICAL PATHOLOGY (01/24/2019 10:03 EST) Final Diagnosis A. COLON, ? RANDOM DESCENDING AND SIGMOID, BIOPSY: - Colonic mucosa with no specific pathologic features. 01/26/2019 18:25 EST [facility] at 1825 Clinical History Bloody diarrhea 01/26/2019 18:25 [facility] Attestation By the signature below, the attending physician certifies that they have personally conducted a gross and/or microscopic examination of the described specimens and rendered or confirmed the above diagnosis. 01/26/2019 18:25 [facility] at 1825 Gross Description A. Received in formalin labelled with proper patient identification (initials R, S) and random Bx of descending colon +sigmoid are 12 fragments of pink-coe soft tissue (ranging from 0.2 cm to 0.5 cm in greatest dimension). The specimen is entirely submitted in A1-A4. Ines Toro 01/24/2019 16:00 01/26/2019 18:25 [facility] Scanned Images 01/26/2019 18:25 [facility] Tissue ENTIRE COLON / Unknown 01/24/2019 10:03 EST 01/24/2019 15:45 EST Devi Ibrahim MD PATHOLOGY ORDERA JOE [facility] [address] [place] [address] documented in this encounter Visit Diagnoses Diagnosis Encounter for other general examination documented in this encounter Care Teams Electrical Design Engineer Relationship Specialty Start Date End Date Nadja Doan FNP [address] [place], [place] [phone] PCP - General 12/24/18 Butch Yanes MD [address] [place] [phone] 12/24/18 documented as of this encounter
--- OUTSIDE RECORDS SUMMARY | 2023-10-31 10:23 | XMS_ITS | Encounter Summary ---
Author Organization [facility] Address [address] [place] [address] Care Team Providers Care Product Marketing Manager Name Role Phone Steve Burns MD Primary Care Provider [phone] Encounter Details Date Type Department Care Team (Late st Contact Info) Description 04/17/2011 Results Only [facility] Laboratory Services - [facility] ([facility] [address] [place], [place] [phone] Nena Avilez, [facility] [address] [place] [phone] Social History Tobacco Use Types Packs/Day [...] Diagnosis Comments PAP TEST- RESULT ONLY Routine 04/17/2011 0:00 EST documented in this encounter Results * PAP TEST- RESULT ONLY (04/17/2011 0:00 EST) Pathology Report: CYTOPATHOLOGY REPORT Reports generated via electronic interface contain original data; however they are lacking the format of the original report. Caution should be taken when reading/interpreti ng unformatted reports. Name: ? MIYA GUILLEN ? Accession #: ? [id number] : ? 1990 (Age: 21) ??F ?Collect Date: ? 04/17/2011 Location: ? [facility] ? Receive Date: ? 04/18/2011 Provider: ?NENA AVILEZ GLOBAL COMPENSATION DIRECTOR Copy to: ?STEVE BURNS MD ? Specimen/Source: ?Pap Test, Cervix/Endocervix, ThinPrep Imaging System with manual evaluation Last Menstrual Period: ? 04/04/11 ? SPECIMEN ADEQUACY ? Satisfactory for Evaluation - transformation zone component present GENERAL CATEGORIZATION ? Negative for Intraepithelial Lesion or Malignancy ? Document reviewed and electronically signed by: ? Andre Teresa, CT(ASCP) ? Report Date: ??04/22/2011 13:29 End of Report [facility] 04/17/2011 04/18/2011 Nena Avilez GLOBAL COMPENSATION DIRECTOR PATHOLOGY ORDERABLES [facility] [address] [place] [address] documented in this encounter Visit Diagnoses Not on filedocumented in this encounter Care Teams Product Marketing Manager Relationship Specialty Start Date End Date Steve Burns MD [address] [place] [phone] PCP - General 05/24/09 12/23/18 documented as of this encounter
--- OUTSIDE RECORDS SUMMARY | 2023-10-31 10:23 | XMS_ITS | Encounter Summary ---
Author Organization [facility] Address [address] [place] [address] Care Team Providers Care Obgyn Specialist Name Role Phone Nadja Doan Primary Care Provider Butch Yanes MD Unavailable [phone] Encounter Details Date Type Department Care Team (Latest Contact Info) Description 01/25/2020 Lab Requisition [facility] Pathology & Laboratory Medicine - [address] [address] Nadja Doan FNP [address] [place] [address] Encounter for general adult medical examination without abnormal findings; Encounter for screening for malignant neoplasm of cervix; Encounter for screening for human papillomavirus (HPV) Social History Tobacco Use Types Packs/Day Years [...] Date/Time Associated Diagnosis Comments PAP TEST Today 01/24/2020 9:30 EST Encounter for general adult medical examination without abnormal findings Encounter for screening for malignant neoplasm of cervix Encounter for screening for human papillomavirus (HPV) HPV DNA DETECTION WITH GENOTYPING, PCR Today 01/24/2020 9:30 EST Encounter for general adult medical examination without abnormal findings Encounter for screening for malignant neoplasm of cervix Encounter for screening for human papillomavirus (HPV) documented in this encounter Results * HUMAN PAPILLOMAVIRUS (HPV) DETECTION-HIGH RISK TYPES (01/24/2020 9:30 EST) HPV other High Risk types, PCR Negative Negative 02/07/2020 7:08 [facility] Comment:No E6 or E7 mRNA is detected from HPV types 16,18,31,33,35,39,45,51,52,56,58,59,66, and 68 by assembler filters mediated amplification. Papanicolaou smear specimen (specimen) CERVIX UTERI STRUCTURE / Unknown 01/24/2020 9:30 EST 01/31/2020 10:39 EST Nadja Olimpia [facility] MICROBIOLOGY - GENER AL ORDERABLES Performing Organization Address City/State/[facility] Co de Phone Number [facility] [address] [place] [address] * PAP TEST (01/24/2020 9:30 EST) Specimens A. Cervix and/or Endocervix , ThinPrep Imaging System with Manual Evaluation 02/07/2020 7:08 [facility] Specimen Adequacy Satisfactory for Evaluation - transformation zone component present 02/07/2020 7:08 [facility] General Categorization Epithelial Cell Abnormality 02/07/2020 7:08 [facility] Descriptive Diagnosis Squamous Cell Abnormality - Low grade squamous intraepithelial lesion (LSIL). 02/07/2020 7:08 [facility] Educational Comments [facility] recommends following ASCCP's 2012 Updated Consensus Guidelines for the Management of Abnormal Cervical Cancer Screening Tests and Cancer Precursors (JLGTD, 2013; 17(5):S1-S27). Consensus guidelines are available online at www.asccp.org. 02/07/2020 7:08 [facility] Attestation By the signature below, the attending physician certifies that they have personally conducted a gross and/or microscopic examination of the described specimens and rendered or confirmed the above diagnosis. 02/07/2020 7:08 [facility] at 0708 Clinical History See below 02/07/20 20 7:08 [facility] HPV The result for the Human Papillomavirus (HPV) Detection-High Risk Types is Negative. No E6 or E7 mRNA is detected from HPV types 16,18,31,33,35,39 ,45,51,52,56,58,5 9,66, and 68 by assembler filters mediated amplification.Gnea ting was performed on specimen [id number] and was resulted on 02/07/2020 0704 EST by DAMION, LAB INSTRUMENT RESULTS IN 02/07/2020 7:08 [facility] Performing Lab [facility] 02/07/2020 7:08 [facility] Scanned Images 02/07/2020 7:08 [facility] Papanicolaou smear specimen (specimen) CERVIX UTERI STRUCTURE / Unknown 01/24/2020 9:30 EST 01/25/2020 12:19 EST Nadja ASHRAF PATHOLOGY ORDERABLES [facility] [address] [place] [address] documented in this encounter Visit Diagnoses Diagnosis Encounter for general adult medical examination without abnormal findings Unspecified general medical examination Encounter for screening for malignant neoplasm of cervix Screening for malignant neoplasm of the cervix Encounter for screening for human papillomavirus (HPV) Special screening examination for human papillomavirus (HPV) documented in this encounter Care Teams Obgyn Specialist Relationship Specialty Start Date End Date Nadja Doan FNP [address] [place], [place] [address] PCP - General 12/24/18 Butch Yanes MD [address] [place] [address] 12/24/18 documented as of this encounter
--- OUTSIDE RECORDS SUMMARY | 2023-10-31 10:23 | XMS_ITS | Encounter Summary ---
Author Organization Formerly [facility] Address [facility] [place] [address] Care Team Providers Care Saxophone Assembler Name Role Phone Nadja Doan APRN Primary Care Provider [phone] Reason for Visit * Consultation (Routine) - Closed Specialty Diagnoses / Procedures Referred By Renzo t Referred To Contact Obstetrics and Gynecology Diagnoses Personal history of pre-term labor Encounter for supervision of normal , unspecified, unspecified trimester History of uterine scar from previous surgery Procedures TARGETED MORPHOLOGY ULTRASOUND MATERNAL MEDICINE CONSULT Sonya Franco, [address] [place] [address] [place] [address] [facility] Sexual Health Physician [address] [place] [address] Referral ID Status Reason Start Date Expiration Date V isits Requested Visits Authorized [id number] Closed Consult, Test & Treat Connection Center PCP Updated and/or Approved 03/14/2021 03/14/2022 6 6 Encounter Details Date Type Department Care Team (Late st Contact Info) Description 05/20/2021 12:30 PM EDT Office Visit Obstetrics [place] [address] Jose G Nichole MD [facility] OBSTETRICS [place] [address] History of premature delivery, currently , second trimester; Previous delivery affecting , antepartum Social History Tobacco Use Types Packs/Day Years Used Date Smoking Tobacco: Never Smokeless Tobacco: Never Alcohol Use Standard Drinks/Week Comments No 0 (1 standard drink = 0.6 oz pur e alcohol) Sex and Gender Information Value Date Recorded Sex Assigned at Not on file Gender Identity Not on file Sexual Orientation Not on file documented as of this encounter Last Filed Vital Signs Vital Sign Reading Time Taken Comments Blood Pressure 110/60 05/20/2021 12:07 PM EDT Pulse - - Temperature - - Respiratory Rate - - Oxygen Saturation - - Inhaled Oxygen Concentration - - Weight 77.6 kg (171 lb) 05/20/2021 12:07 PM EDT Height - - Body Mass Index 28.46 05/20/2021 8:58 AM EDT documented in this encounter Progress Notes * Jose G Nichole MD - 05/20/2021 12:30 PM EDT Asked by Sonya Frnaco, DO to see this 31 yo at 19w5d with history of labor and delivery by section for detailed morphology ultrasound and MFM consultation. Scheduled for cardiology consultation for tachycardia? Past OB: 1) 06/23/09. Labor at 31 weeks with progression to 5cm. Hospitalized until 35 weeks. Had AROM at 37 weekswith rapid delivery after that. 2) 09/03/15 - 28w2d Was on Mily starting at 16 weeks. Had a cervical length of 3.7 at the time of her detailed morphology US. Follow up cervical length was 2.9cm. 2 weeks prior to delivery, she lost mucous plug. May have had fFN which was negative. 09/02/15 had B-H UCs. Took a nap. Upon awaking, had bleeding. Drove to [facility]. SVE fully dilated. Kimmy arrived with team. AROM. Cord prolapse. Emergent low transverse c/section (Op note reviewed in Media tab). US today reassuring with normal anatomy, normal amniotic fluid volume, normal growth, normal cervical length (3.1cm), normal appearing placentation. A/P: 31 yo at increased risk for labor. She received standard of care last (Cervical length and progesterone supplementation), but still delivered quite early. We discussed options at length including some new data that progesterone supplementation may not have as much benefit as originally found in earlier studies. She feels (reasonably) that the weekly injections of progesterone failed to prevent a delivery last and that those shots were quite burdensome. We discussed the possibility of not using progesterone or of using a less burdensome form of administration. I have taken the liberty of ordering vaginal progesterone to be administered nightly until 36 weeks. It is not clear how much this will reduce her risk for labor, but is of low burden. The patient and her partner a satisfied with this plan. Of note, Miya is a good candidate for a trial of labor. MD Km 20 minutes of this 30 minute consultation was spent directly counseling the patient. documented in this encounter Plan of Treatment Not on file documented as of this encounter Visit Diagnoses Diagnosis History of premature delivery, currently , second trimester Previous delivery affecting , antepartum Previous delivery, antepartum condition or complication documented in this encounter Care Teams Saxophone Assembler Relationship Specialty Start Date End Date Nadja Doan APRN [address] [place] [address] PCP - General Family Medicine 11/19/20 11/20/22 documented as of this encounter
--- OUTSIDE RECORDS SUMMARY | 2023-10-31 10:23 | XMS_ITS | Encounter Summary ---
Author Organization [facility] [place] [address] Care Team Providers Care Choir Accompanist Name Role Phone Nadja Doan JOSE Primary Care Provider [phone] Reason for Referral * Diagnostic Test (Routine) - Closed Specialty Diagnoses / Procedures Referred By Contac t Referred To Contact Radiology Diagnoses Personal history of pre-term labor Procedures US OB Detailed Morphology Sonya Edward DO [address] [place] [address] [place] [address] [place] [address] Referral ID Status Reason Start Date Expiration Date V isits Requested Visits Authorized [id number] Closed Specialty Service Requested 03/14/2021 09/11/2022 1 1 Reason for Visit * Diagnostic Test (Routine) - Closed Specialty Diagnoses / Procedures Referred By Contac t Referred To Contact Radiology Diagnoses Personal history of pre-term labor Procedures US OB Detailed Morphology Sonya Edward DO [address] [place] [address] [facility] [place] [address] Referral ID Status Reason Start Date Expiration Date V isits Requested Visits Authorized [id number] Closed Specialty Service Requested 03/14/2021 09/11/2022 1 1 Encounter Details Date Type Department Care Team (Latest Contact Info) Description 05/20/2021 11:15 AM EDT - 05/20/2021 11:59 PM EDT Hospital [place] [address] Sonya Edward DO [facility] [facility] [address] Personal history of pre-term labor Discharge Disposition: Home Social History Tobacco Use [...] Tablet Take 10 mg by mouth nightly. progesterone (Endometrin) [address] 2 tablets vaginally daily. 60 each 5 05/20/2021 08/27/2021 documented as of this encounter Plan of Treatment Not on file documented as of this encounter Procedures Procedure Name Priority Date/Time Associated Diagnosis Comments US OB DETAILED MORPHOLOGY Routine 05/20/2021 12:06 PM EDT Personal history of pre-term labor documented in this encounter Results * US OB Detailed Morphology (05/20/2021 12:06 PM EDT) Anatomical Region Laterality Modality Pelvis, Abdomen Ultrasound 05/20/2021 11:2 5 AM EDT Impressions 05/21/2021 10:18 AM EDT 2nd Trimester - Detailed Morphology - Summary Single intrauterine with a gestational age of 19w 5d based on LMP ??(01/02/21) Composite age based on the current ultrasound alone is 20w 0d. Current growth parameters are consistent with prior dating indicating normal growth. Amniotic fluid volume is Normal Detailed anatomic evaluation was performed and no structural abnormalities are noted. Cervical length is normal on transvaginal ultrasound. Thank you for letting us participate in the care of this patient. If you are a health care provider and have any questions regarding this report, please contact the number above. For patients who have questions, please contact the health healthcare risk control consultant that requested your imaging first. ?Jose G Nichole, Staff Physician Electronically Signed Final Report ?? 05/21/2021 10:17 am Narrative 05/21/2021 10:18 AM EDT OBSTETRICS REPORT ?(Signed Final 05/21/2021 10:17 am) PATIENT INFO: ID #: ? [id number] ?: ??[birth year] (31 yrs)(F) Name: ? KIANA Sarwat ISABEL ? Visit Date: 05/20/2021 11:25 am PERFORMED BY: Performed By: ? Tri Yang RDMS Attending: ?Dionisio DIEHL, Jose G Shanks Referred By: ?SONYA EDWARD Location: ? [facility] SERVICE(S) PROVIDED: [facility] - Detailed Morphology - [id number] ? [id number] UOBTVCER - Transvaginal ??2nd Trimester - ?35122 Cervical Length - [id number] INDICATIONS: 19 weeks gestation of ?Z3A.19 Prior DTL/ delivery at 28 wks TECHNIQUE/SCAN QUALITY: Technique: ?? Transducer ID#:[id number] VITAL SIGNS: Weight (lb): 156.0 Height: ?5'5 ? BMI: ? 25.96 EVALUATION: Num Of Fetuses: ? 1 Heart Rate(bpm): ??142 Cardiac Activity: ? Observed, normal rhythm Presentation: ? Cephalic Placenta: ? Anterior P. Cord Insertion: ?Within Normal Limits Amniotic Fluid REAL FV: ?Normal --------- BIOMETRY: --------- BPD: ?45.9 ??mm ? G.Age: ?? 19w 6d OFD: ?61.4 ??mm HC: ?172.0 ??mm ? G.Age: ?? 19w 5d AC: ?143.7 ??mm ? G.Age: ?? 19w 5d FL: ? 33.9 ??mm ? G.Age: ?? 20w 5d HUM: ?30.7 ??mm ? G.Age: ?? 20w 1d CER: ?19.8 ??mm ? G.Age: ?? 18w 6d NFT: ?3.78 ??mm NB: ?7.2 ??mm LV: ?7.3 ??mm CM: ?7.3 ??mm CI: ?74.8 ??% ? 70 - 86 FL/HC: ? 19.7 ??% ? 16.8 - 19.8 HC/AC: ? 1.20 ?1.09 - 1.39 FL/BPD: ?73.9 ??% FL/AC: ? 23.6 ??% ? 20 - 24 Est. FW: ? 332 ??gm ?0 lb 12 oz OB HISTORY: : ?3 ? Term: ?? 1 ?Lencho: ?? 1 Living: ? 2 GESTATIONAL AGE: LMP: ? 19w 5d ?Date: ??01/02/21 ? ZITA: ?? 10/09/21 U/S Today: ? 20w 0d ?ZITA: ?? 10/07/21 Best: ?19w 5d ?? Det. By: ??LMP ??(01/02/21) ?ZITA: ?? 10/09/21 TARGETED ANATOMY: Central Nervous System Calvarium/Cranial V.: ??Within Normal Limits Intracranial Isaura: ? Within Normal Limits Cavum: ? Within Normal Limits Parenchyma: ?Within Normal Limits Lateral Ventricles: ?Within Normal Limits Choroid Plexus: ?Within Normal Limits Cereb./Vermis: ? Within Normal Limits Cisterna Magna: ?Within Normal Limits Midline Falx: ?Within Normal Limits Spine Cervical: ?Visualized Thoracic: ?Visualized Lumbar: ?Visualized Sacral: ?Visualized Shape/Curvature: ? Visualized Head/Neck Face: ?Within Normal Limits Lips: ?Within Normal Limits Neck: ?Within Normal Limits Nuchal Fold: ? Within Normal Limits Nasal Bone: ?Present Profile: ? Visualized Orbits/Eyes: ? Visualized Mandible: ?Visualized Maxilla: ? Visualized Thorax Thoracic Contour: ?Within Normal Limits Lungs: ? Visualized 4 Chamber View: ?Within Normal Limits Cardiac Activity: ?Normal Rhythm Rt Outflow Tract: ?Visualized Lt Outflow Tract: ?Visualized Aortic Arch: ? Visualized Ductal Arch: ? Visualized SVC: ? Visualized Cardiac [place]: ?Visualized Diaphragm: ? Visualized 3 Vessel View: ? Visualized IVC: ? Visualized Abdomen Ventral Wall: ?Visualized Cord Insertion: ?Visualized Situs: ? Normal Stomach: ? Visualized Liver: ? Visualized Lt Kidney: ? Visualized Rt Kidney: ? Visualized Bladder: ? Visualized Bowel: ? Visualized Extremities Lt Humerus: ?Within Nomal Limits Rt Humerus: ?Within Normal Limits Lt Forearm: ?Within Normal Limits Rt Forearm: ?Within Normal Limits Lt Hand: ? Within Normal Limits Rt Hand: ? Within Normal Limits Lt Femur: ?Within Normal Limits Rt Femur: ?Within Normal Limits Lt Lower Leg: ?Within Normal Limits Rt Lower Leg: ?Within Normal Limits Lt Foot: ? Visualized Rt Foot: ? Visualized Other Umbilical Cord: ?3 vessel cord Genitalia: ? Female CERVIX UTERUS ADNEXA: Cervix Length: ?3.1 ??cm. No change with fundal pressure Right Ovary Size(cm) ? 3.1 ??x ?? 2.8 ?x ??2.0 ? Vol(ml): 9.1 Visualized Left Ovary Size(cm) ? 2.9 ??x ?? 1.6 ?x ??2.3 ? Vol(ml): 5.6 Visualized Procedure Note Jose G Nichole MD - 05/21/2021 OBSTETRICS REPORT (Signed Final 05/21/2021 10:17 am) PATIENT INFO: ID #: [id number] : [birth year] (31 yrs)(F) Name: KIANA ISABEL Visit Date: 05/20/2021 11:25 am PERFORMED BY: Performed By: Tri Yang RDMS Attending: Jose G Nichole MD Referred By: SONYA EDWARD Location: [facility] SERVICE(S) PROVIDED: [facility] - Detailed Morphology - [id number] UOBTVCER - Transvaginal 2nd Trimester - [id number] Cervical Length - [id number] INDICATIONS: 19 weeks gestation of Z3A.19 Prior DTL/ delivery at 28 wks TECHNIQUE/SCAN QUALITY: Technique: Transducer ID#:[id number] VITAL SIGNS: Weight (lb): 156.0 Height: 5'5 BMI: 25.96 EVALUATION: Num Of Fetuses: 1 Heart Rate(bpm): 142 Cardiac Activity: Observed, normal rhythm Presentation: Cephalic Placenta: Anterior P. Cord Insertion: Within Normal Limits Amniotic Fluid REAL FV: Normal --------- BIOMETRY: --------- BPD: 45.9 mm G.Age: 19w 6d OFD: 61.4 mm HC: 172.0 mm G.Age: 19w 5d AC: 143.7 mm G.Age: 19w 5d FL: 33.9 mm G.Age: 20w 5d HUM: 30.7 mm G.Age: 20w 1d CER: 19.8 mm G.Age: 18w 6d NFT: 3.78 mm NB: 7.2 mm LV: 7.3 mm CM: 7.3 mm CI: 74.8 % 70 - 86 FL/HC: 19.7 % 16.8 - 19.8 HC/AC: 1.20 1.09 - 1.39 FL/BPD: 73.9 % FL/AC: 23.6 % 20 - 24 Est. FW: 332 gm 0 lb 12 oz OB HISTORY: : 3 Term: 1 Lencho: 1 [place] GESTATIONAL AGE: LMP: 19w 5d Date: 01/02/21 ZITA: 10/09/21 U/S Today: 20w 0d ZITA: 10/07/21 Best: 19w 5d Det. By: LMP (01/02/21) ZITA: 10/09/21 TARGETED ANATOMY: Central Nervous System Calvarium/Cranial V.: Within Normal Limits Intracranial Isaura: Within Normal Limits Cavum: Within Normal Limits Parenchyma: Within Normal Limits Lateral Ventricles: Within Normal Limits Choroid Plexus: Within Normal Limits Cereb./Vermis: Within Normal Limits Cisterna Magna: Within Normal Limits Midline Falx: Within Normal Limits Spine Cervical: Visualized Thoracic: Visualized Lumbar: Visualized Sacral: Visualized Shape/Curvature: Visualized Head/Neck Face: Within Normal Limits Lips: Within Normal Limits Neck: Within Normal Limits Nuchal Fold: Within Normal Limits Nasal Bone: Present Profile: Visualized Orbits/Eyes: Visualized Mandible: Visualized Maxilla: Visualized Thorax Thoracic Contour: Within Normal Limits Lungs: Visualized 4 Chamber View: Within Normal Limits Cardiac Activity: Normal Rhythm Rt Outflow Tract: Visualized Lt Outflow Tract: Visualized Aortic Arch: Visualized Ductal Arch: Visualized SVC: Visualized Cardiac [place]: Visualized Diaphragm: Visualized 3 Vessel View: Visualized IVC: Visualized Abdomen Ventral Wall: Visualized Cord Insertion: Visualized Situs: Normal Stomach: Visualized Liver: Visualized Lt Kidney: Visualized Rt Kidney: Visualized Bladder: Visualized Bowel: Visualized Extremities Lt Humerus: Within Nomal Limits Rt Humerus: Within Normal Limits Lt Forearm: Within Normal Limits Rt Forearm: Within Normal Limits Lt Hand: Within Normal Limits Rt Hand: Within Normal Limits Lt Femur: Within Normal Limits Rt Femur: Within Normal Limits Lt Lower Leg: Within Normal Limits Rt Lower Leg: Within Normal Limits Lt Foot: Visualized Rt Foot: Visualized Other Umbilical Cord: 3 vessel cord Genitalia: Female CERVIX UTERUS ADNEXA: Cervix Length: 3.1 cm. No change with fundal pressure Right Ovary Size(cm) 3.1 x 2.8 x 2.0 Vol(ml): 9.1 Visualized Left Ovary Size(cm) 2.9 x 1.6 x 2.3 Vol(ml): 5.6 Visualized IMPRESSION 2nd Trimester - Detailed Morphology - Summary Single intrauterine with a gestational age of 19w 5d based on LMP (01/02/21) Composite age based on the current ultrasound alone is 20w 0d. Current growth parameters are consistent with prior dating indicating normal growth. Amniotic fluid volume is Normal Detailed anatomic evaluation was performed and no structural abnormalities are noted. Cervical length is normal on transvaginal ultrasound. Thank you for letting us participate in the care of this patient. If you are a health care provider and have any questions regarding this report, please contact the number above. For patients who have questions, please contact the health healthcare risk control consultant that requested your imaging first. Jose G Nichole, Staff Physician Electronically Signed Final Report 05/21/2021 10:17 am Sonya Edward DO IMG US OB ORDERABLES documented in this encounter Visit Diagnoses Diagnosis Personal history of pre-term labor documented in this encounter Care Teams Choir Accompanist Relationship Specialty Start Date End Date Nadja Doan, JOSE [address] [facility] [address] PCP - General Family Medicine 11/19/20 11/20/22 documented as of this encounter
--- OUTSIDE RECORDS SUMMARY | 2023-10-31 10:23 | XMS_ITS | Encounter Summary ---
Author Organization [facility] Address [facility] [place] [address] Care Team Providers Care Astronomy Department Chair Name Role Phone Hieu Lombardi DNP Primary Care Provider [phone] Reason for Referral * Diagnostic Test (Routine) - Closed Specialty Diagnoses / Procedures Referred By Renzo skaggs Referred To Contact Sleep Center Diagnoses JAMIE (obstructive sleep apnea) Procedures Sleep Study Diagnostic PSG / Split Night Rae Valdivia MD [facility] [place] [address], [place] [address] Referral ID Status Reason Start Date Expiration Date V isits Requested Visits Authorized [id number] Closed Specialty Service Requested 12/31/2022 01/01/2024 1 1 Reason for Visit * Consultation (Routine) - Closed Specialty Diagnoses / Procedures Referred By Renzo skaggs Referred To Contact Sleep Center Diagnoses Sleep apnea, unspecified type Hieu Lombardi DNP [address] [place] [address] [facility] Sleep Medicine [address] [place] [address] Referral ID Status Reason Start Date Expiration Date V isits Requested Visits Authorized [id number] Closed Consult, Test & Treat PCP Updated and/or Approved 11/21/2022 11/21/2023 1 1 Encounter Details Date Type Department Care Team (Late st Contact Info) Description 12/31/2022 11:00 AM EST Office Visit Sleep Center at [address] [phone] Rae Valdivia MD [facility] [place] [address] JAMIE (obstructive sleep apnea) (Primary Dx) Social History Tobacco Use Types Packs/Day Years [...] Sign Reading Time Taken Comments Blood Pressure 133/93 12/31/2022 10:52 AM EST Pulse 97 12/31/2022 10:52 AM EST Temperature - - Respiratory Rate - - Oxygen Saturation 99% 12/31/2022 10:52 AM EST Inhaled Oxygen Concentration - - Weight 78 kg (172 lb) 12/31/2022 10:52 AM EST Height 165.1 cm (5' 5) 12/31/2022 10:52 AM EST Body Mass Index 28.62 12/31/2022 10:52 AM EST documented in this encounter Progress Notes * Rae Valdivia MD - 12/31/2022 11:00 AM EST Images from the original note were not included. Sleep Medicine Consultation Note CC: JAMIE, establish care HPI: Miya Merritt is a 32 y.o. female seen at the request of Hieu Lombardi DNP for adviceregarding JAMIE. H/o difficult to control asthma, allergies. Diagnosed with JAMIE at [facility] in 2021, lab recently closed so she needed to establish with another sleep provider. Reported snoring, excessive sleepiness, difficulty falling asleep, morning headaches. Has a CPAP but has not been using due to intolerance, did follow up with sleep providerbut did not find it helpful. States that her neurologist and PCP want her to treat JAMIE, think that her sleep issues are affecting other health conditions/headaches. Is interested in Insp[facility]. Disrupted sleep, waking up 5x per night, only out of bed 1x. Has a 15 month old and two other children which sometimes contribute to awakenings. Worsening sleep related headaches and headaches in general. PSG results: 04/20/21 RDI 17.1 (primarily RERA's with AHI 0/5/hr). Weight at time of study: 156 lbs (, second trimester) (Weight currently 172 lbs) Based on these results, would not qualify for [facility]. Currently using PAP: no Problems with PAP: no Current mask interface: nasal Mask fit problems: yes, uncomfortable Current pressure: 5-12cm Pressure intolerance: too much air Current DME: [facility] Symptoms controlled with PAP: yes, when she was able to use it Snoring: yes, off pap Observed apneas: yes, off pap Disrupted sleep:yes Daytime sleepiness/fatigue: yes Sleep related headaches:yes Cognitive dysfunction: yes Other:no Sleep Pattern: Bed/Recliner/Wedge: bed HOB flat/elevated: flat Preferred sleeping position: side or back In bed: 8:30-9pm Lights out: immediate Latency: 30-40 minutes Awakenings: 5x Wake time: 6am Rise time: 6:10am Daytime Symptoms: Patient-reported scores: No data to display Refreshed upon Awakening: no Naps: no Involuntary Dozing: no Sleepiness with driving: yes Close calls related to sleepiness: no Accidents related to sleepiness: no Outpatient Medications Marked as Taking for the 12/31/22 encounter (Office Visit) with Rae Valdivia MD Medication Sig Dispense Refill albuteroL (Ventolin HFA) 90 mcg/actuation HFA Aerosol Inhaler 18 g, INHALE 2 PUFFS BY MOUTH EVERY 6HOURS NEEDED FOR SHORTNESS OF BREATH OR WHEEZING, 0 Refill(s) amitriptyline (Elavil) 10 mg tablet Take 10 mg by mouth nightly. dupilumab (Dupixent Pen) 300 mg/2 mL Pen Injector Inject 300 mg subcutaneously every 14 days. gabapentin (Neurontin) 100 mg capsule Take 100 mg by mouth 3 times daily. Vienva 0.1-20 mg-mcg tablet 84 EA, 0 Refill(s), TAKE ONE TABLET BY MOUTH EVERY DAY CONTINUOUSLY (SKIP PLACEBO PILLS AND BEGIN THE NEXT PACK RIGHT AWAY), 0 Refill(s) albuteroL (Proventil) 2.5 mg /3 mL (0.083 %) Solution for Nebulization INHALE THE CONTENTS OF 1 VIAL VIA NEBULIZER EVERY 4 TO 6 HOURS DIRECTED NEEDED Trelegy Ellipta 100-62.5-25 mcg Disk with Device INHALE ONE PUFF BY MOUTH EVERY DAY montelukast (Singulair) 10 mg Tablet Take 10 mg by mouth nightly. Other Associates Sleep Symptoms: Parasomnias: Sleep Walking: no Dream Enactment: doesn't think so Motor: RLS: yes, sometimes ROS: CON: weight change (since last sleep study): +16lb ENT: nasal obstruction: sometimes, has bad asthma ; dry mouth: no PUL: exertional shortness of breath: yes CV: chest pain: no Sleep-related palpitations: yes, daytime and nighttime LE edema: no GI: GERD: no : Nocturia: 1x MSK: Pain disrupting sleep: no NEURO: sleep related headaches: yes Past Medical History reviewed in eDH Social History: Living situation: home with 3 children and boyfriend Employment: [employer] at [place] Alcohol: none Smoking: none Caffeine: 2 sodas per day Other drugs: no PE: BP (!) 133/93 Pulse 97 Ht 165.1 cm (5' 5) Wt 78 kg (172 lb) SpO2 99% BMI 28.62 kg/m?? General: alert, no distress Eyes: PERRL, conjunctiva clear ENT: oropharynx MP: 3 Crowded: no Dentition: intact Mandibular structure and position: TMJ in the past, normal NECK: Submental fat present: no PSYCH: Alert and appropriate: yes Oriented to person, place and time: yes Affect: full range Judgement and insight: intact Assessment: Miya Merritt is a 32 y.o. female with a history of snoring, frequent awakenings, and waking with headaches. Has history of asthma, much more difficult to control since giving . Sleep testing in the second trimester showed evidence of JAMIE primarily based on respiratory effort related arousals (RDI 17/hr). She tried CPAP but struggled and eventually stopped. Still has equipment. Now, thequestion is whether sleep apnea is still present, how severe, and is it truly interrupting sleep (leading to arousals and morning headaches). Complicating the assessment is the worsening of her asthma post . Asthma could also impact sleep quality, contribute to arousals and may make control wi th use of AUTOPAP more challenging (and have contributed to her intolerance to PAP). She expresses a desire to look at other options for treatment as well (like Inspire, if indicated). To best evaluate her current status, I would recommend repeating a diagnostic study to assess for severity with split criteria. She can get this study done in [place]. In lab testing is needed given her significant underlying lung disease. Total visit time 50 minutes including chart activities and records review, discussion with the patient and documentation on the day of the encounter Recommendations: 1. PSG, split for AHI > 30 + CMS AHI > 10 in [place] 2. Conservative management strategies reviewed including weight management and avoidance of the supine sleeping position (not discussed today). 3. Safe driving precautions extensively reviewed with the patient. Rae Valdivia MD documented in this encounter Plan of Treatment Scheduled Orders Name Type Priority Associated Diagnoses Orde r Schedule Sleep Study Diagnostic PSG / Split Night Sleep Center Routine JAMIE (obstructive sleep apnea) Expected: 12/31/2022, Expires: 12/30/2023 documented as of this encounter Visit Diagnoses Diagnosis JAMIE (obstructive sleep apnea)- Primary Obstructive sleep apnea (adult) (pediatric) documented in this encounter Care Teams Astronomy Department Chair Relationship Specialty Start Date End Date Hieu Lombardi DNP [address] [place] [id number] PCP - General Family Medicine 11/21/22 documented as of this encounter
--- OUTSIDE RECORDS SUMMARY | 2023-10-31 10:23 | XMS_ITS | Encounter Summary ---
Author Organization [facility] [place] [address] Care Team Providers Care Account Resolution Specialist Name Role Phone Nadja Doan APRN Primary Care Provider [phone] Reason for Referral * Diagnostic Test (Routine) - Closed Specialty Diagnoses / Procedures Referred By Contac t Referred To Contact Cardiology Diagnoses Tachycardia Procedures Ziopatch 48 Hrs-15 Days Zoran Cristina MD [facility] [place] [address] [facility] [place] [address] Referral ID Status Reason Start Date Expiration Date V isits Requested Visits Authorized [id number] Closed Specialty Service Requested 05/20/2021 11/20/2021 1 1 Reason for Visit * Consultation (Routine) - Closed Specialty Diagnoses / Procedures Referred By Contac t Referred To Contact Cardiology Diagnoses Tachycardia Dizziness 04/2022 Tachycardia & dizziness Hieu Lombardi, DNP [address] [place] [address] [facility] Cardiology [address] [place] [phone] Referral ID Status Reason Start Date Expiration Date V isits Requested Visits Authorized [id number] Closed Consult, Test & Treat Connection Center PCP Updated and/or Approved 02/11/2021 02/11/2022 6 6 Encounter Details Date Type Department Care Team (Late st Contact Info) Description 05/20/2021 9:00 AM EDT Office Visit Cardiology at [address] [address] Nazario Rowe MD [facility] [place] [address] Zoran Cristina MD [facility] [place] [address] Dizziness; Tachycardia Social History Tobacco Use Types Packs/Day Years [...] Sign Reading Time Taken Comments Blood Pressure 109/68 05/20/2021 8:58 AM EDT Pulse 95 05/20/2021 8:58 AM EDT Temperature - - Respiratory Rate - - Oxygen Saturation 100% 05/20/2021 8:58 AM EDT Inhaled Oxygen Concentration - - Weight 78.4 kg (172 lb 12.8 oz) 05/20/2021 8:58 AM EDT Height 165.1 cm (5' 5) 05/20/2021 8:58 AM EDT Body Mass Index 28.76 05/20/2021 8:58 AM EDT documented in this encounter Progress Notes * Zoran Cristina MD - 05/20/2021 9:00 AM EDT Images from the original note were not included. [facility] [place] [address] CARDIOLOGY OUTPATIENT NOTE PRIMARY CARE PROVIDER: Nadja Doan APRN REFERRING PROVIDER: Hieu Lombardi Subjective: Patient ID: Miya Merritt is a 31 y.o. female. HPI iMya Merritt is a 31 year old woman with past medical history significant for asthma, longstanding tachycardia (worse with standing), who presents to establish care with our practice. She reportsthat she has had years of tachycardia with feeling of heart racing, diaphoresis, chest pain, dyspnea; there were no episodes of syncope or presyncope. The episodes occurred several times per day and last approximately 1 hour. She was initially thought to have vertigo per her primary care provider, but is referred due to worsening of the dizziness. She saw a neurologist at [facility] and underwent orthostatic vital signs though these records are not available. Of note, per chart she had a previous ED visit in 10/23/2020 with tachycardia, noted at 98 bpm while supine and 131 bpm with standing. At present, she is ~20 weeks and has noted improvement in her symptoms within the first 2 months of . The symptoms are not exertional, positional, or respirophasic. Caffeine intake includes 1 caffeineated soda per day (down from 3 per day several weeks ago), no current alcohol use and rare prior to , nonsmoker and no illicit drug use. She underwent sleep study last week and was told that she has mild sleep apnea and will obtain a CPAP machine in the next few weeks. She had blood work done at an external facility in February 2021 with normal CBC, K 3.4, creatinine 0.9; TSH was last performed in 2019 at 2.47 (normal), Her prior cardiac testing is significant for a Holter monitor worn on 11/17/2017, which demonstratedsinus rhythm with average heart rate in 90s bpm, symptoms correlating to sinus rhythm and sinus tachycardia; there were no sustained arrhythmias and rare ectopy at that time. Medications are significant for trelegy, montelukast, and albuterol inhaler PRN. She notes that hertachycardia is not related to inhaler use and started prior to this medication. Family history is negative for any cardiac conditions including arrhythmias or coronary artery disease. No family history of syncope, drownings, unexplained accidents, or sudden . Standing vitals performed at 10 minutes in office today with HR 126 bpm, bp 130/80 mmHg. MEDICATIONS: Current Outpatient Medications: ??? norgestimate-ethinyl estradiol (SPRINTEC, 28,) 0.25-35 mg-mcg Tablet, Take 1 tablet by mouth daily., Disp: 84 tablet, Rfl: 3 ??? linezolid (ZYVOX) 600 mg Tablet, Take 1 tablet by mouth 2 times daily., Disp: 24 tablet, Rfl: 0 ??? ferrous sulfate 325 mg (65 mg iron) Tablet, Delayed Release (E.C.), Take 1 tablet by mouth 2 times daily (with meals)., Disp: 60 tablet, Rfl: 11 Objective: Patient Vitals for the past 24 hrs: Pulse BP SpO2 05/20/21 0858 95 109/68 100 % Physical examination: General: Well-appearing female in no acute distress, appears comfortable at time of examination Respiratory: Clear to auscultation bilaterally, no crackles, wheeze, or rhonchi Cardiac: Tachycardic rate and regular rhythm. No murmurs, rubs, or gallops appreciated Extremities: Trace lower extremity edema bilaterally. Normal range of motion Neurologic: No gross focal deficits appreciated Psychiatric: Mood pleasant, engaged throughout examination Assessment and Plan: Assessment: Miya Merritt is a 31 y.o. female who presents to establish care with our practice in the setting of tachycardia which is worse with standing. Standing vitals performed in office today demonstrate >30 bpm HR increase with no fall in blood pressure. We discussed that this is most likely benign and may represent POTS. Given lack of concerning family history, no personal history of syncope or arrhythmia demonstrated on prior Holter monitor, will order ziopatch to rule out arrhythmia since symptoms worsened. We discussed that treatment options exist for POTS though in the setting of and asthma would hold off on beta blockade at this time if possible. Ms. Merritt agrees thatrisk outweighs benefit for medical treatment of tachycardia at this time, though will call if any change in symptom severity or limitations. Plan 1. Tachycardia, POTS - Follow up Ziopatch (ordered today) - Symptoms improving with , discussed lifestyle factors to decrease symptoms including remaining hydrated, slow changes in posture - Decreased caffeine intake, labs with normal electrolytes and previously normal thyroid function during symptomatic period - At present, holding on beta venu given asthma and . Could consider if symptom burden increases in the future. Discussed risk-benefit tradeoff with Ms. Merritt during our visit today 2. Follow up care - Follow up in 1 year, or sooner if needed Thank you for the opportunity to participate in this patient's cardiovascular care. All questions were answered and I look forward to the next visit. Zoran Cristina MD 05/19/2021 * Nazario Rowe MD - 05/20/2021 9:00 AM EDT She has longstanding symptoms of increased heart rate. TSH measurement in the past in the context of symptoms has been normal. Her exam is unremarkable aside from the increase in heart rate with standing. I think POTS is likely, likely related to mild autonomic imbalance. Given , I do not recommend pharmacologic intervention. I think hydration and gradual change in body position makes most sense. We will also get a Zio patch to ensure that we are not missing a more significant arrhythmia. Nazario Rowe MD [facility] Cardiovascular Medicine documented in this encounter Plan of Treatment Not on file documented as of this encounter Procedures Procedure Name Priority Date/Time Associated Diagnosis Comments EKG 12-LEAD Routine 05/20/2021 9:07 AM EDT Dizziness Tachycardia documented in this encounter Results * Ziopatch 48 Hrs-15 Days (05/20/2021 10:51 AM EDT) Anatomical Region Laterality Modality Other Narrative 06/12/2021 2:25 PM EDT [facility] ? Zio Patch Ambulatory Cardiac Event Monitor [...] and PVCs ? Chemo Grijalva MD, FA, [facility] Nazario Rowe MD CARDIAC SERVICES ORD ERABLES * EKG 12 Lead (05/20/2021 9:07 AM EDT) Pathologist [facility] Ventricular rate 86 BPM MUSE SYSTEM Atrial Rate 86 BPM MUSE SYSTEM P-R Interval 118 ms MUSE SYSTEM QRS Duration 78 ms MUSE SYSTEM Q-T Interval 368 ms MUSE SYSTEM QTC Calculated (Bezet) 440 ms MUSE SYSTEM Calculated P [place] 48 degrees MUSE SYSTEM Calculated R [place] 66 degrees MUSE SYSTEM Calculated T [place] 54 degrees MUSE SYSTEM INTERPRETATION Normal sinus rhythm Normal ECG No previous ECGs available Confirmed by MD Nugyen Danette ([id number]) on 05/20/2021 12:12:40 PM MUSE SYSTEM 05/20/2021 9:07 AM EDT 05/20/2021 12:12 PM EDT Nazario Rowe MD ECG ORDERABLES MUSE SYSTEM documented in this encounter Visit Diagnoses Diagnosis Dizziness Dizziness and giddiness Tachycardia Tachycardia, unspecified Tachycardia Tachycardia, unspecified documented in this encounter Care Teams Account Resolution Specialist Relationship Specialty Start Date End Date Nadja Doan, JOSE [address] [facility] [address] PCP - General Family Medicine 11/19/20 11/20/22 documented as of this encounter
--- OUTSIDE RECORDS SUMMARY | 2023-10-31 10:23 | XMS_ITS | Encounter Summary ---
Author Organization [facility] [place] [address] Care Team Providers Care Resistance Welder Name Role Phone Unavailable Primary Care Provider Unavailabl e Encounter Details Date Type Department Care Team (Late st Contact Info) Description 11/14/2020 Notes [place] [address] Lianet Salas RN Social History Tobacco Use Types Packs/Day Years Used Date Smoking Tobacco: Never Assessed Sex and Gender Information Value Date Recorded Sex Assigned at Not on file Gender Identity Not on file Sexual Orientation Not on file documented as of this encounter Progress Notes * Lianet Salas RN - 11/14/2020 10:10 AM EDT On 11/14/20 we have carefully reviewed your case with the Clinical Vertigo Team including your dizziness questionnaire, medical history, and any other previous diagnostic tests performed/forwarded by your referring provider. It's our recommendation that you have a VNG. Carrier Associate is aware. documented in this encounter Plan of Treatment Not on file documented as of this encounter Visit Diagnoses Diagnosis Dizziness Dizziness and giddiness documented in this encounter
--- OUTSIDE RECORDS SUMMARY | 2023-10-31 10:23 | XMS_ITS | Encounter Summary ---
[place] [address] Care Team Providers Care Central Supply Nurse Name Role Phone Unavailable Primary Care Provider Unavailabl e Encounter Details Date Type Department Care Team (Late st Contact Info) Description 10/24/2015 Notes Only Obstetrics [place] [phone] Justina Oneal LPN Social History Tobacco Use Types Packs/Day Years Used Date Smoking Tobacco: Never Smokeless Tobacco: Never Alcohol Use Standard Drinks/Week Comments No 0 (1 standard drink = 0.6 oz pur e alcohol) Sex and Gender Information Value Date Recorded Sex Assigned at Not on file Gender Identity Not on file Sexual Orientation Not on file documented as of this encounter Progress Notes * Justina Oneal LPN - 10/24/2015 11:18 AM EDT Medical necessity paperwork for breast pump faxed to [employer] @ [phone]. documented in this encounter Plan of Treatment Not on file documented as of this encounter Visit Diagnoses Not on filedocumented in this encounter
--- OUTSIDE RECORDS SUMMARY | 2023-10-31 10:23 | XMS_ITS | Encounter Summary ---
Author Organization [facility] [place] [address] Care Team Providers Care Chestnut Tanner Name Role Phone Unavailable Primary Care Provider Unavailabl e Reason for Visit * Reason Onset Date Comments Results 10/19/2015 Encounter Details Date Type Department Care Team (Late st Contact Info) Description 10/19/2015 Telephone [place] [address] Iglesia Ramirez MD [facility] [place] [address] Results Social History Tobacco Use Types Packs/Day Years [...] encounter Miscellaneous Notes * Telephone Encounter - Iglesia Ramirez - 10/19/2015 6:19 PM EDT I saw Ms Guillen on 10/13 when she was admitted with mastitis. At the time, it seemed that she had failed cephalexin and clindamycin as an outpatient and had become septic. We treated her empiricallyfor MRSA with daptomycin and discharged her on linezolid. Cultures of her breast milk sent on 10/12 now grow enterobacter and stenotrophomonas. I spoke to Ms Guillen, and she is feeling much better. Her mastitis is improving. Most likely, the new culture results are normal matt and did not contribute to her infection. I will therefore not change therapy. I discussed this with Ms. Guillen, who agreed with this plan. I asked her to contact us if her mastitis were to worsen. documented in this encounter Plan of Treatment Not on file documented as of this encounter Visit Diagnoses Not on filedocumented in this encounter
--- OUTSIDE RECORDS SUMMARY | 2023-10-31 10:23 | XMS_ITS | Encounter Summary ---
Author Organization [facility] Address [address] [place] [address] Care Team Providers Care Community Relations Liaison Name Role Phone LilianNadja bolivar PASCALE Primary Care Provider [phone] Butch Yanes MD Unavailable [phone] Encounter Details Date Type Department Care Team (Late st Contact Info) Description 02/23/2020 Lab Requisition [facility] Pathology & Laboratory Medicine - [address] [id number] Outr Resulting Lab, Provider Social History Tobacco [...] Comments ZZCOVID-19 TEST [facility] PCR Today 02/22/2020 8:05 EST COVID-19 TESTING Routine 02/22/2020 8:05 EST documented in this encounter Results * COVID-19 TEST [facility] PCR (02/22/2020 8:05 EST) Swab ENTIRE NASOPHARYNX / Unknown 02/22/2020 8:05 EST 02/24/2020 8:30 EST Provider Outr Resulting Lab MICROBIOLOGY - GENERAL ORDERABLES Performing Organization Address [facility] Co de Phone Number [facility] [address] [place] [address] * COVID-19 TESTING (02/22/2020 8:05 EST) COVID-19 rt-PCR Result Negative Negative 02/24/2020 16:30 EST [facility] Comment: This test has not [...] history, and epidemiological information. Performed on the I3 Precisionher Fusion instrument Performing Lab [place] [facility] Lab 02/24/2020 16:30 EST [facility] Swab 02/22/2020 8:05 EST 02/24/2020 8:30 EST Provider Outr Resulting Lab MICROBIOLOGY - GENERAL ORDERABLES Performing Organization Address City/[facility]/ZIP Co de Phone Number [facility] [address] [place] [address] documented in this encounter Visit Diagnoses Not on filedocumented in this encounter Care Teams Community Relations Liaison Relationship Specialty Start Date End Date Nadja Doan [place] [address] PCP - General 12/24/18 Butch Yanes MD [address] [place] [id number] 12/24/18 documented as of this encounter
--- OUTSIDE RECORDS SUMMARY | 2023-10-31 10:23 | XMS_ITS | Encounter Summary ---
Author Organization [facility] Address [address] [place] [address] Care Team Providers Care Instructional Technologist Name Role Phone Unknown, Provider Primary Care Provider Encounter Details Date Type Department Care Team (Late st Contact Info) Description 01/19/2009 Orders Only [facility] Laboratory Services - [facility] ([facility]) [address], [place] [id number] Cuate Hawkins CNM [address] [id number] Social History Tobacco Use Types Packs/Day Years Used Date Smoking Tobacco: Never Assessed Sex and Gender Information Value Date Recorded Sex Assigned at Not on file Gender Identity Not on file Sexual Orientation Not on file documented as of this encounter Plan of Treatment Not on file documented as of this encounter Procedures Procedure Name Priority Date/Time Associated Diagnosis Comments CYTOPATHOLOGY Routine 01/19/2009 0:00 EST documented in this encounter Results * CYTOPATHOLOGY (01/19/2009 0:00 EST) Pathology Report: CYTOPATHOLOGY REPORT ? Reports generated via electronic interface contain original data; ? however they are lacking the format of the original report. ? Caution should be taken when reading/interpreti ng unformatted reports. ? Name: ? MIYA GUILLEN ? Accession #: ? [id number] ? : ? 1990 (Age: 18) ??F ?Collect Date: ? 01/19/2009 ? Location: ? [facility] ? Receive Date: ? 01/23/2009 ? Provider: ?ANEA LELONG CNM ? Copy to: ? Specimen/Source: ?Pap Test, Cervix/Endocervix, ThinPrep Imaging System ? with manual evaluation ? Last Menstrual Period: ? 8/13/09 ? Menstrual/Pregnanc y Status: ? Other: ? Additional clinical information: 1st pap smear ? SPECIMEN ADEQUACY ? Satisfactory for Evaluation ? - transformation zone component present ? GENERAL CATEGORIZATION ? Negative for Intraepithelial Lesion or Malignancy ? Document reviewed and electronically signed by: ? Jose G Stumler, CT(ASCP) ? Report Date: ??01/24/2009 15:59 ? End of Report ? [facility] 01/19/2009 01/23/2009 Cuate Hawkins CNM PATHOLOGY ORDERABLES Performing Organization Address City/State/[facility] Co de Phone Number [facility] [address] [place] [address] documented in this encounter Visit Diagnoses Not on filedocumented in this encounter Care Teams Instructional Technologist Relationship Specialty Start Date End Date Unknown, Provider, PCP - General 01/22/09 05/23/09 documented as of this encounter
--- OUTSIDE RECORDS SUMMARY | 2023-10-31 10:23 | XMS_ITS | Encounter Summary ---
Author Organization [facility] Address [facility] [place] [address] Care Team Providers Care Production Consultant Name Role Phone Nadja Doan APRN Primary Care Provider [phone] Encounter Details Date Type Department Care Team (Late st Contact Info) Description 05/13/2021 Orders Only Cardiology at [address] [phone] Nazario Rowe MD [facility] [place] [address] Tachycardia (Primary Dx); Dizziness Social History Tobacco Use Types Packs/Day Years [...] as of this encounter Visit Diagnoses Diagnosis Tachycardia- Primary Tachycardia, unspecified Dizziness Dizziness and giddiness documented in this encounter Care Teams Production Consultant Relationship Specialty Start Date End Date Nadja Doan APRN [address] [facility] [address] PCP - General Family Medicine 11/19/20 11/20/22 documented as of this encounter
--- OUTSIDE RECORDS SUMMARY | 2023-10-31 10:23 | XMS_ITS | Encounter Summary ---
[place] [address] Care Team Providers Care Fashion Consultant Selling Name Role Phone Nadja Doan APRN Primary Care Provider [phone] Reason for Visit * Auth/Cert Specialty Diagnoses / Procedures Referred By Renzo t Referred To Contact Diagnoses labor Procedures PRO INPT INITIAL COMP/COMP/HIGH 70 MIN ER IPI Marylou Delacruz MD [facility] [place] [address] [facility] Referral ID Status Reason Start Date Expiration Date Visits Re quested Visits Authorized [id number] 1 1 Encounter Details Date Type Department Care Team (Latest Contact Info) Description 08/26/2021 11:59 PM EDT - 08/28/2021 9:49 AM EDT Hospital [place] [id number] Marylou Delacruz MD [facility] [place] [address] Discharge Disposition: Home Social History Tobacco Use [...] Sign Reading Time Taken Comments Blood Pressure 110/71 08/28/2021 8:56 AM EDT Pulse 107 08/28/2021 8:56 AM EDT Temperature 36.8 ??C (98.2 ??F) 08/28/2021 8:56 AM ED T Respiratory Rate 18 08/28/2021 8:56 AM EDT Oxygen Saturation 100% 08/28/2021 8:59 AM EDT Inhaled Oxygen Concentration - - Weight 87.1 kg (192 lb) 08/27/2021 12:33 AM EDT Height 165.1 cm (5' 5) 08/27/2021 12:33 AM EDT Body Mass Index 31.95 08/27/2021 12:33 AM EDT documented in this encounter Discharge Summaries * Sagar Cullen MD - 08/28/2021 9:37 AM EDT Discharge Summary Patient Name: Kiana Merritt Patient Age: 31 y.o. Language: Uzbek Race: White Ethnicity: Not nor Admit date: 08/26/2021 Discharge date and time: 08/28/21 Attending Physician: Marylou Delacruz MD Discharge Physician: Dr. Yan Follow-up Recommendations for Providers: -- Pap recommended -- Routine follow-up with care providers tomorrow -- Follow-up with home business technology architect today Inpatient Provider Contact Information: [facility] Department, Care Provider: [facility] Referring Provider if applicable: Sonya Franco, DO Discharge Diagnoses (Hospital Problems) and Secondary Diagnoses (Chronic Problems): Active Hospital Problems Diagnosis ??? labor Resolved Hospital Problems No resolved problems to display. Active Non-Hospital Problems Diagnosis ??? History of premature delivery, currently , third trimester ??? Dizziness ??? Tachycardia ??? Previous delivery affecting , antepartum ??? Lower urinary tract infectious disease Operations/Major Procedures: NA History of Presentation: Kiana Merritt was admitted today secondary to labor. ?? Kiana reports starting to feel contractions at approximately 7pm this evening. She has been feelingintermittent lower back cramping over the last several days, but today at 7 her contractions becamemore frequent and intense, coming approximately every 10 minutes. She continues to feel the contractions every 10 minutes. She denies any LOF or VB and reports good movement. She was seen at [facility], where she was found to be 1cm and sam and was given a rescue dose of steroids as well asampicillin. ?? Kiana notes that she just completed a course of Macrobid for concern for UTI. She had a positive fibronectin test and then following noted pain and burning with urination. She denies any dysuria currently. She otherwise denies any complaints such as fever, chills, nausea, or vomiting. ?? Kiana Merritt is a 31 y.o. at 33w6d weeks gestation. Her has been complicated by the following: -- Hx of C/S: Pt desires TOLAC; Predicted chance of vaginal after : 84.9%; 95% confidence interval: 82.7% - 86.9%. Prior C/S due to cord prolapse at 28w after AROM at full dilation. Prior low transverse C/S with 2- layer closure. -- Hx of labor x 2: 2009; labor at 31 wks with progression to 5cm. Hospitalized until 35weeks and then AROMed at 37wks. 2016: Went into labor at 28w2d, AROMed at full dilation w/cord prolapse-->STAT , transferred from [facility] [place]. Pt not taking progesterone asnot covered by insurance. -- Asthma: Moderately controlled with daily medication. Currently on Trelegy (pt takes 200 mcg dose, not 100 dose documented below in meds), Montelukast, ProAir PRN, and Nebulizer PRN. Was hospitalized this for an asthma exacerbation from 07/03-07/04 at [facility] due to no Trelagy for one month related to insurance issues. -- COVID during : Positive 03/30/21 (pt has been vaccinated and boosted); received monoclonal antibody -- S/p initial dose of betamethasone: Concern for contractions at 30w6d; received full doseof betamethasone. Last dose given 08/07. First dose of rescue course given 08/26/21. -- LSIL/HPV HR pos: Will need pap -- Tachycardia/POTS - Seen by [facility] who completed Ziopatch evaluation which demonstrated sinus tachycardia, but no malignant arrhythmias. Recommended against pharmacologic intervention during . Hospital Course: Kiana was admitted for observation in the setting of threatened pre-term labor. Sterile vaginal exam was performed and was /-3. Bedside ultrasound was performed confirming cephalic presentation. Penicillin was initiated for GBS prophylaxis in the setting of GBS unknown status. Niefedipine 20mg q8 hours was continued for tocolysis. [place] [id number]. Overnight on HD#1, contractions spaced and patient was significantly more comfortable. Penicillin infusion was stopped at that time. On HD#1 in the evening, a second dose of betamethasone was administered to complete the rescue course. Cervix was reexamined on day of discharge and remained unchanged. A growth ultrasound was performed on HD#1. Growth corresponding to suspected LGA with EFW in the 92nd%Ile with AC > 96th%ile. Tocolytics Received if applicable: nifedipine 20mg q8 Date Steroid Complete: 08/28/21, rescue course GBS status: pending from [facility] Cervix at discharge: Dilation: Dilation: 1 Effacement: Effacement: 50 Station: Station: -3 Vital signs at Discharge: BP: 110/71, Heart Rate: (!) 107, Temp: 36.8 ??C (98.2 ??F), Resp: 18, BMI (Calculated): 31.95 Height: 165.1 cm (5' 5) (08/27/21 0033) Weight: 87.1 kg (192 lb) (08/27/21 0033) Functional and Cognitive status: Stable Important Studies and Lab Data: Labs: Last wbc, hgb, hct plt Recent Labs 08/27/21224 WBC 13.4* HGB 9.4* HCT 30.0* US Summary: Date 08/28/21 Presentation: cephalic, Placenta: anterior REAL: normal, MVP: 7.6cm EFW: 2702g (92%Ile), AC>92th%ilre Studies: NA Pending Studies and Lab Data: NA Discharge Conditions/Prognosis: stable Discharge to: home Updated Allergies/ADRs: Allergies Allergen Reactions ??? Vancomycin Angioedema ??? Symbicort [Budesonide-Formoterol] Gets rashes ??? Banana Rash ??? Peaches [Stone Fruit] Facial swelling ??? Tegaderm [Transparent Dressings] Rash Immunizations Given this Hospitalization: Immunization History Administered Date(s) Administered ??? Dulcea Covid-19 (Pointer Helper 100mcg) Vaccine 04/03/2020, 05/01/2020 Discharge Medications: Your Medications Continued medications, unchanged Dose Details albuteroL 2.5 mg /3 mL (0.083 %) Nebu Commonly known as: Proventil INHALE THE CONTENTS OF 1 VIAL VIA NEBULIZER EVERY 4 TO 6 HOURS DIRECTED NEEDED Refills: 0 montelukast 10 mg Tab Commonly known as: Singulair Take 10 mg by mouth nightly. 10 mg Refills: 0 vitamin with aicsjmrz-Xh-Ajvi-FA Tab Take by mouth. Refills: 0 Trelegy Ellipta 100-62.5-25 mcg INHALE ONE PUFF BY MOUTH EVERY DAY Generic drug: xqvclspzfsg-ojutwcrhptfr-wwtgkhczif Refills: 0 STOPPED Medications Endometrin 100 mg Inst Generic drug: progesterone Smoking Status at Discharge: Social History Tobacco Use Smoking Status Never Smoker Smokeless Tobacco Never Used Ordered for After Discharge: No discharge procedures on file. Summary: Dating Summary: by LMP, ZITA 10/09/21 Instructions Given to Patient at Discharge: There are no outpatient Patient Instructions on file for this admission. General Instructions [place] [id number] [facility] Kiana Fam René 08/28/21 9:29 AM Following your visit to [facility] Triage Call your doctor or reporting consultant for: ??? Seizure (call 911) ??? Chest pain ??? Shortness of breath ??? Headache which isn't relieved with Tylenol ??? Headache with visual changes ??? Abdominal pain ??? Swelling to hands and face ??? A temperature at or above 100.4F ??? Nausea or vomiting Gestation - under 37 weeks ??? Call your doctor or reporting consultant if: o You experience any menstrual like cramping more than 6 an hour that does not go away with rest and fluids. o You are leaking fluid - may be a small leak - may be a large gush - note the time fluid started leaking, amount, and color (clear, yellow, green, pink, red) o You notice vaginal bleeding - spotting is normal following a vaginal exam in your doctor's or reporting consultant's office - you should not bleed as much as a period o You have noticed a marked decrease in your baby's movement ??? refer to your kick count instructions in the Your and Childbirth Month to Month(6th edition) - Your baby should move at least 10 times in 2 hours o You have had any direct trauma to your abdomen such as a car accident, fall, or impact Term Gestation - over 37 weeks ??? Call your doctor or reporting consultant if: o You are having painful contractions/abdominal cramps less than 5 minutes apart for 1 hour - walking, resting, or any kind of activity does not make them less painful or go away o You are leaking fluid - may be a small leak - may be a large gush - note the time fluid started leaking, amount, and color (clear, yellow, green, pink, red) o You notice vaginal bleeding - spotting is normal following a vaginal exam in your doctor's or reporting consultant's office - you should not bleed as much as a period o You have noticed a marked decrease in your baby's movement - refer to your kick count instructions in the Your and Childbirth Month to Month (6th edition) - your baby should move at least 10 times in 2 hours o You have had any direct trauma to your abdomen such as a car accident, fall, or impact General Instructions Drink plenty of non-caffeinated fluids throughout the day to prevent dehydration. Keep your regularly scheduled doctor or reporting consultant appointment. Vaccination If you received the Measles, Mumps, and Rubella (MMR) vaccine, varicella vaccine, or Hepatitis A vaccine during your hospitalization make sure to discuss this with your OB provider or your PCP at your next visit. You may need a second dose of the vaccine to receive effective vaccine protection. Your [facility] Provider can be reached during office hours at ??? Midwives ??? Obstetricians AFTER OFFICE HOURS: Call and ask for the network firewall engineer or reporting consultant section hand Discharge References/Attachments None Referrals:NA documented in this encounter Discharge Instructions * Discharge Instructions* Shakila Mario RN - 08/28/2021 9:29 [place] [address] [facility] [place] Kiana Merritt 08/28/21 9:29 AM Following your visit to [facility] Triage Call your doctor or reporting consultant for: Seizure (call 911) Chest pain Shortness of breath Headache which isn't relieved with Tylenol Headache with visual changes Abdominal pain Swelling to hands and face A temperature at or above 100.4F Nausea or vomiting Gestation - under 37 weeks Call your doctor or reporting consultant if: You experience any menstrual like cramping more than 6 an hour that does not go away with rest and fluids. You are leaking fluid may be a small leak may be a large gush note the time fluid started leaking, amount, and color (clear, yellow, green, pink, red) You notice vaginal bleeding spotting is normal following a vaginal exam in your doctor's or reporting consultant's office you should not bleed as much as a period You have noticed a marked decrease in your baby's movement refer to your kick count instructions in the Your and Childbirth Month to Month (6th edition) Your baby should move at least 10 times in 2 hours You have had any direct trauma to your abdomen such as a car accident, fall, or impact Term Gestation - over 37 weeks Call your doctor or reporting consultant if: You are having painful contractions/abdominal cramps less than 5 minutes apart for 1 hour walking, resting, or any kind of activity does not make them less painful or go away You are leaking fluid may be a small leak may be a large gush note the time fluid started leaking, amount, and color (clear, yellow, green, pink, red) You notice vaginal bleeding spotting is normal following a vaginal exam in your doctor's or reporting consultant's office you should not bleed as much as a period You have noticed a marked decrease in your baby's movement refer to your kick count instructions in the Your and Childbirth Month to Month (6th edition) your baby should move at least 10 times in 2 hours You have had any direct trauma to your abdomen such as a car accident, fall, or impact General Instructions Drink plenty of non-caffeinated fluids throughout the day to prevent dehydration. Keep your regularly scheduled doctor or reporting consultant appointment. Vaccination If you received the Measles, Mumps, and Rubella (MMR) vaccine, varicella vaccine, or Hepatitis A vaccine during your hospitalization make sure to discuss this with your OB provider or your PCP at your next visit. You may need a second dose of the vaccine to receive effective vaccine protection. Your [facility] Provider can be reached during office hours at Midwives Obstetricians AFTER OFFICE HOURS: Call and ask for the network firewall engineer or reporting consultant section hand documented in this encounter Medications at Time of Discharge [...] Tablet Take 10 mg by mouth nightly. vitamin with fdxmetvw-As-Jlir-FA Tablet Take by mouth. 12/31/2022 documented as of this encounter Progress Notes * Sagar Cullen MD - 08/28/2021 9:23 AM EDT Kiana Merritt is a 31 y.o. female at 34w0d gestation admitted for threatened labor. history notable for prior delivery following spontaneous labor at 28w. This is HD#2. NST Fetus A 08/28/2021 HR (beats/min) 135 HR Variability moderate (amplitude range 6 to 25 bpm) HR Accelerations present HR Decelerations none Contraction Frequency (Minutes) 1 in 20 min Nonstress Test Interpretation Reactive, >32 weeks: two 15 bpm accelerations lasting 15 seconds Overall Impression - NST reviewed with MD Jenkins. Sagar Cullen MD PGY3 08/28/21 Associated attestation - Jarrett Jenkins MD - 08/28/2021 11:50 AM EDT I personally reviewed the nonstress test and agree with the interpretation as documented above. Jarrett Jenkins MD 08/28/2021 11:50 AM * Sagar Cullen MD - 08/28/2021 7:17 AM EDT Images from the original note were not included. Obstetrical Antepartum Progress Note Kiana Merritt is a 31 y.o. female at 34w0d gestation admitted for threatened labor. history notable for prior delivery following spontaneous labor at 28w. This is HD#2. 24 Hour Events -- continued on nifedipine 20mg q8hrs, last dose at 0200 -- contractions spaced out overnight -- Rescue betamethasone #2 08/27/21 at 21:30 Subjective: Kiana reports that she is feeling well this morning. She is no longer having contractions. Slept well overnight. Denies LOF, vaginal bleeding. Endorses good FM. ROS Obstetric Review of Systems Total Weight Gain this Not found. Movement: normal Contractions: every 45 minutes at this time Leaking: None Bleeding; none now Preeclampsia signs and symptoms: None Physical Exam: BP 110/71 (BP Location (NBP): Left arm, Patient Position: Sitting) Pulse (!) 107 Temp 36.8 ??C (98.2 ??F) (Oral) Resp 18 Ht 165.1 cm (5' 5) Wt 87.1 kg (192 lb) LMP 01/02/2021 SpO2 100% BMI 31.95 kg/m?? Gen: well appearing, resting comfortable CV: RRR, no murmurs Pulm: CTAB Uterus: palpates firm with contractions, nontender, gravid Cervix Exam: Dilation: 1 (08/28/21 09) Effacement: 50 Station: -3 Cervical Position: Posterior Consistency: Soft James Score: 4 OB Examiner: Kendra Hernandez V. Heart Rate Interpretation: see separate NST note Most Recent Ultrasound Date: 05/20/21 GA at US: 19w5d EFW: 332g, [id number] Growth appropriate for gestational age Amniotic fluid volumenormal Placenta anterior Presentation cephalic ABO/RH B pos, antibody neg Hgb/Hct 9.4/30.0 Platelets 208 Varicella Immune Rubella Immune Syphillis Negative GC/Chlam Pending, collected at admission Urine Culture HepBsAg Neg HepC Neg HIV Neg 1 hr GTT Not found 3 hr GTT GBS Pending at [facility] UDS: Assessment & Plan: Kiana Merritt is a 31 y.o. female at 34w0d gestation admitted for threatened labor at 33w6d. Now s/p rescue course betamethasone. labor has arrested with no cervical change. Stable for discharge with follow-up with providers tomorrow. This is HD#2. # Threatened Labor ?? Delivery indications: NRFHT, maternal deterioration, progressive labor ?? S/p 2 doses of penicillin for GBS unknown. Further dosing held. ?? Delivery plan: plans TOLAC if progressive labor ?? Tocolysis: Nifedipine 20mg q8hr to continue through steroid complete status. D/c'd this morning. ?? # Status ?? NST: daily; continuous monitoring currently ?? presentation: Cephalic as of 08/27/21 BSUS ?? Last Growth US (08/27/21): EFW 92nd%ile (2702g) ?? Steroid status: Complete on 08/08/21; rescue dose started 08/26/21 at 21:30; written for second dose on 08/27/21 at 21:30 ?? Magnesium for neuroprotection: N/a given gestational age ?? Consults obtained: Neonatology, Anesthesiology ?? # Other Maternal Concerns ?? Asthma: Continue Trelegy, Montelukast, and Nebulizer PRN. ?? H/x of C/S: Pt desires TOLAC; consent reviewed and signed at bedside ?? # Care ?? GBS status: GBS pending (collected 08/26/21 at [facility]; results pending) ?? T&S up to date, next due on 08/30/21 ?? TDaP: Unknown; discuss with patient ?? Continue vitamin ?? Contraception Plan: Desires tubal if C/S; otherwise desires IUD at . ?? # General Antepartum Care ?? hemorrhage risk:??Medium, hx ?? Consents obtained: Section + BTL, Opioids, TOLAC ?? Prophylaxis: SCDs in bed, plan Heparin if >72 hours hospitalization ?? Anticipated DC date:??Pending maternal course Patient discussed with Attending MFM Dr. Farrah Cullen MD PGY-3 08/28/2021 Associated attestation - Tim Yan MD - 08/28/2021 3:52 PM EDT I performed a history and physical exam of the patient and discussed her management with Dr. Cullen. I reviewed Dr. Cullen's note and agree with the documented findings and plan of care. My evaluation is as below: 34w0d EGA; arrested contractions, with history of Subjective: No complaints. Good movement. Rare contractions. Vitals: Last value Range last 8 hrs Temperature Temp: 36.8 ??C (98.2 ??F) Temp: [36.8 ??C (98.2 ??F)] Heart Rate Heart Rate: (!) 107 Heart Rate: [107] Blood Pressure BP: 110/71 BP: (110)/(71) Respiratory Rate Resp: 18 Resp: [18] SpO2 SpO2: 100 % SpO2: [100 %] Abdomen: Soft, non-tender, not distended Uterus: Soft, Non-tender Extremities: Non-tender; no edema NST: See separate report. Impression: contractions at 34w0d. Steroid complete, s/p rescue course GBS pending Presentation cephalic Plan: Continue expectant management with close observation for labor. No further tocolysis Cervical exam unchanged: discharge to home. F/U with local OB providers. Viktoriya Yan MD Maternal- Medicine * Sagar Cullen MD - 08/27/2021 11:34 AM EDT Kiana Merritt is a 31 y.o. female at 33w6d gestation admitted for threatened labor. history notable for prior delivery following spontaneous labor at 28w. NST Fetus A 08/27/2021 HR (beats/min) 125 HR Variability moderate (amplitude range 6 to 25 bpm) HR Accelerations present HR Decelerations none Contraction Frequency (Minutes) 2 in 20 min Nonstress Test Interpretation Reactive, >32 weeks: two 15 bpm accelerations lasting 15 seconds Overall Impression Reassuring for gestational age NST reviewed by Dr. Amanda Cullen MD PGY-3 08/27/21 Associated attestation - Anjum Patel MD - 08/27/2021 12:28 PM EDT Attending Note: I was the attending physician supervising the resident in the above care and I personally reviewed and interpreted the NST. I agree with the resident's interpretation as noted above. Indication: 33w6d IUP, threatened PTL. Interpretation: reassuring for EGA, reactive Anjum Patel MD 08/27/21 12:28 PM * Sagar Cullen MD - 08/27/2021 7:19 AM EDT Images from the original note were not included. Obstetrical Antepartum Progress Note Kiana Merritt is a 31 y.o. female at 33w6d gestation admitted for threatened labor. history notable for prior delivery following spontaneous labor at 28w. 24 Hour Events -- continued on nifedipine 20mg q8hrs -- contractions spaced out overnight -- Rescue betamethasone #1 08/26/21 at 21:30 Subjective: Kiana reports that she is feeling much better this morning. She is now reporting contractions every 45 minutes, which are mild and short-lived. She was able to sleep well overnight after contractions spaced out. Denies LOF, vaginal bleeding. Endorses good FM. ROS Obstetric Review of Systems Total Weight Gain this Not found. Movement: normal Contractions: every 45 minutes at this time Leaking: None Bleeding; none now Preeclampsia signs and symptoms: None Physical Exam: BP 94/60 (BP Location (NBP): Left arm, Patient Position: Lying) Pulse (!) 114 Temp 37 ??C (98.6??F) (Oral) Resp 18 Ht 165.1 cm (5' 5) Wt 87.1 kg (192 lb) LMP 01/02/2021 SpO2 98% BMI31.95 kg/m?? Gen: well appearing, resting comfortable CV: RRR, no murmurs Pulm: CTAB Uterus: palpates firm with contractions, nontender, gravid Cervix Exam: Dilation: 1 (08/27/21 0027) Effacement: 40 Station: -3 OB Examiner: Kendra Hernandez V. Heart Rate Interpretation: see separate NST note Most Recent Ultrasound Date: 05/20/21 GA at US: 19w5d EFW: 332g, [id number] Growth appropriate for gestational age Amniotic fluid volumenormal Placenta anterior Presentation cephalic ABO/RH B pos, antibody neg Hgb/Hct 9.4/30.0 Platelets 208 Varicella Immune Rubella Immune Syphillis Negative GC/Chlam Pending, collected at admission Urine Culture HepBsAg Neg HepC Neg HIV Neg 1 hr GTT Not found 3 hr GTT GBS Pending at [facility] UDS: Assessment & Plan: Kiana Merritt is a 31 y.o. female at 33w6d gestation admitted for threatened labor. Patient appears clinically improved without painful contractions at this time. Plan continued observation to complete rescue steroid course. If labor remains arrested, consider discharge # Threatened Labor ?? Delivery indications: NRFHT, maternal deterioration, progressive labor ?? S/p 2 doses of penicillin for GBS unknown. Further dosing held. ?? Delivery plan: plans TOLAC if progressive labor ?? Tocolysis: Nifedipine 20mg q8hr to continue through steroid complete status ?? # Status ?? NST: daily; continuous monitoring currently ?? presentation: Cephalic as of 08/27/21 BSUS ?? Last Growth US: Detailed morphology; ordered for growth sono for 08/27/21 ?? Steroid status: Complete on 08/08/21; rescue dose started 08/26/21 at 21:30; written for second dose on 08/27/21 at 21:30 ?? Magnesium for neuroprotection: N/a given gestational age ?? Consults obtained: Neonatology, Anesthesiology ?? # Other Maternal Concerns ?? Asthma: Continue Trelegy, Montelukast, and Nebulizer PRN. Avoid hemabate. ?? H/x of C/S: Pt desires TOLAC; consent reviewed and signed at bedside ?? # Care ?? GBS status: GBS pending (collected 08/26/21 at [facility]; results pending) ?? T&S up to date, next due on 08/30/21 ?? TDaP: Unknown; discuss with patient ?? Continue vitamin ?? Contraception Plan: Desires tubal if C/S; otherwise desires IUD at . ?? # General Antepartum Care ?? hemorrhage risk:??Medium, hx ?? Consents obtained: Section + BTL, Opioids, TOLAC ?? Prophylaxis: SCDs in bed, plan Heparin if >72 hours hospitalization ?? Anticipated DC date:??Pending maternal course Patient discussed with Attending MFM Dr. Farrah Cullen MD PGY-3 08/27/2021 Associated attestation - Tim Yan MD - 08/27/2021 9:59 AM EDT I performed a history and physical exam of the patient and discussed her management with Dr. Cullen. I reviewed Dr. Cullen's note and agree with the documented findings and plan of care. My evaluation is as below: 33w6d EGA; arrested labor Subjective: No complaints. Good movement. Sporadic mild contractions. Vitals: Last value Range last 8 hrs Temperature Temp: 37 ??C (98.6 ??F) Temp: [36.9 ??C (98.4 ??F)-37 ??C (98.6 ??F)] Heart Rate Heart Rate: (!) 114 Heart Rate: [111-114] Blood Pressure BP: 94/60 BP: (94-123)/(60-78) Respiratory Rate Resp: 18 Resp: [15-18] SpO2 SpO2: 98 % SpO2: [98 %] Abdomen: Soft, non-tender, not distended Uterus: Soft, Non-tender Extremities: Non-tender; no edema NST: See separate report. Impression: PTL at 33w6d. Steroid complete; now completing rescue course GBS pending Plan: Continue expectant management with close observation for labor. No further tocolysis after completion of rescue course of steroids Viktoriya Yan MD Maternal- Medicine * Marylou Delacruz MD - 08/27/2021 3:14 AM EDT 08/27/21 0312 Nonstress Test, Fetus A HR (beats/min) 145 HR Variability moderate (amplitude range 6 to 25 bpm) HR Accelerations present HR Decelerations none Contraction Frequency (Minutes) every 4 min Nonstress Test Interpretation Reactive, >32 weeks: two 15 bpm accelerations lasting 15 seconds NST Times NST Start Time 0212 NST Stop Time 0313 I personally reviewed the heart rate tracing. The NST is reactive and the tracing is reassuring. MARYLOU DELACRUZ MD documented in this encounter H&P Notes * Marylou Delacruz MD - 08/27/2021 1:09 AM EDT Obstetrical Admission Note Referring Hospital: [facility] Referring Provider: Sonya Franco DO Initial Care Provider (if early referral or co-managed by [facility]): [facility] Chief Complaint: Kiana Merritt was admitted today secondary to labor. Kiana reports starting to feel contractions at approximately 7pm this evening. She has been feelingintermittent lower back cramping over the last several days, but today at 7 her contractions becamemore frequent and intense, coming approximately every 10 minutes. She continues to feel the contractions every 10 minutes. She denies any LOF or VB and reports good movement. She was seen at [facility], where she was found to be 1cm and sam and was given a rescue dose of steroids as well asampicillin. Kiana notes that she just completed a course of Macrobid for concern for UTI. She had a positive fibronectin test and then following noted pain and burning with urination. She denies any dysuria currently. She otherwise denies any complaints such as fever, chills, nausea, or vomiting. Kiana Merritt is a 31 y.o. at 33w6d weeks gestation. Her has been complicated by the following: -- Hx of C/S: Pt desires TOLAC; Predicted chance of vaginal after : 84.9%; 95% confidence interval: 82.7% - 86.9%. Prior C/S due to cord prolapse at 28w after AROM at full dilation. Prior low transverse C/S with 2- layer closure. -- Hx of labor x 2: 2009; labor at 31 wks with progression to 5cm. Hospitalized until 35weeks and then AROMed at 37wks. 2016: Went into labor at 28w2d, AROMed at full dilation w/cord prolapse-->STAT , [place] from [facility] [place] [facility] [place] Pt not taking progesterone asnot covered by insurance. -- Asthma: Moderately controlled with daily medication. Currently on Trelegy (pt takes 200 mcg dose, not 100 dose documented below in meds), Montelukast, ProAir PRN, and Nebulizer PRN. Was hospitalized this for an asthma exacerbation from 07/03-07/04 at [facility] due to no Trelagy for one month related to insurance issues. -- COVID during : Positive 03/30/21 (pt has been vaccinated and boosted); received monoclonal antibody -- S/p initial dose of betamethasone: Concern for contractions at 30w6d; received full doseof betamethasone. Last dose given 08/07. First dose of rescue course given 08/26/21. -- LSIL/HPV HR pos: Will need pap -- Tachycardia/POTS - Seen by [facility] who completed Ziopatch evaluation which demonstrated sinus tachycardia, but no malignant arrhythmias. Recommended against pharmacologic intervention during . Review of Systems- Negative to complete review except as noted in the HPI. Obstetric Review of Systems Total Weight Gain this Not found. Movement: normal Contractions: regular, every 10 minutes Leaking: None Bleeding; none now Preeclampsia signs and symptoms: None Active Hospital Problems Diagnosis ??? labor Resolved Hospital Problems No resolved problems to display. Active Non-Hospital Problems Diagnosis ??? History of premature delivery, currently , third trimester ??? Dizziness ??? Tachycardia ??? Previous delivery affecting , antepartum ??? Lower urinary tract infectious disease Past Medical History: Diagnosis Date ??? Asthma ??? Mastitis ??? POTS (postural orthostatic tachycardia syndrome) Past Surgical History: Procedure Laterality Date ??? SECTION, LOW TRANSVERSE ??? COLONOSCOPY ??? WISDOM TOOTH EXTRACTION OB History 3 Para 2 Term 1 1 AB Living 2 SAB IAB Ectopic Multiple Live Births 2 # Outc Date GA Lbr Felice/2nd Wgt Sex Del Anes PTL Lv 1 Term 06/2009 37w5d 3.182 kg (7 lb 0.2 oz) F Vag-Spont Yes Living 2 08/2015 28w2d C-S scar Living 3 Current Medications Prior to Admission Medication Sig Dispense Refill Last Dose ??? vitamin with [id number] Tablet Take by mouth. ??? albuteroL (Proventil) 2.5 mg /3 mL (0.083 %) Solution for Nebulization INHALE THE CONTENTS OF 1VIAL VIA NEBULIZER EVERY 4 TO 6 HOURS DIRECTED NEEDED ??? Trelegy Ellipta 100-62.5-25 mcg Disk with Device INHALE ONE PUFF BY MOUTH EVERY DAY ??? montelukast (Singulair) 10 mg Tablet Take 10 mg by mouth nightly. ??? [DISCONTINUED] progesterone (Endometrin) [address] 2 tablets vaginally daily. 60 each5 Allergies Allergen Reactions ??? Vancomycin Angioedema ??? Symbicort [Budesonide-Formoterol] Gets rashes ??? Banana Rash ??? Peaches [Stone Fruit] Facial swelling ??? Tegaderm [Transparent Dressings] Rash No family history on file. Social History Occupational History ??? Not on file Tobacco Use ??? Smoking status: Never Smoker ??? Smokeless tobacco: Never Used Substance and Sexual Activity ??? Alcohol use: No Alcohol/week: 0.0 standard drinks ??? Drug use: No ??? Sexual activity: Yes Partners: Male Immunization History Immunization History Administered Date(s) Administered ??? Moderna Covid-19 (Pointer Helper 100mcg) Vaccine 04/03/2020, 05/01/2020 Last Set of Vitals: BP 123/78 Pulse (!) 111 Temp 36.8 ??C (98.2 ??F) (Oral) Resp 17 Ht 165.1 cm (5' 5) Wt 87.1 kg (192 lb) LMP 01/02/2021 SpO2 99% BMI 31.95 kg/m?? Physical Exam: Gen: AAO, occasionally breathing through contractions Pulm: Normal work of breathing Abd: soft, NT, ND, gravid Ext: warm, well-perfused, no TINO or calf tenderness Neuro: grossly intact Uterine Size: S=D Clinical EFW: <6lb Sterile Speculum: no pooling of fluid seen, normal physiologic discharge, visually closed cervix Cervix Exam: Dilation: 1 (08/27/21 0027) Effacement: 40 Station: -3 OB Examiner: Kendra Hernandez V. Pelvis: average Presentations: Cephalic by bedside sono Heart Rate Interpretation: Baseline: 125, Variability: moderate, Accels: yes, Decels: none, [place]: 3 per 10 minutes Category: I Record Review Labs ABO/RH Not found Hgb/Hct Not found Platelets Not found Rubella Pos Syphillis Not found GC/Chlam Neg/neg Urine Culture Not found Varicella Pos HepC Ab Negative HepBsAg Negative HIV Negative 1 hr GTT Not found 3 hr GTT Pap test LSIL/HPV pos GBS Collected at [facility] and pending Most Recent Ultrasound Date: 05/20/21 GA at US: 19w5d EFW: 332g, [id number] Growth appropriate for gestational age Amniotic fluid volumenormal Placenta anterior Presentation cephalic Assessment & Plan Kiana Sarwat Merritt is a 31 y.o. at 33w6d gestation being admitted for labor. 1. Labor ?? Ordered for CBC, GCCT, and UDS. Group B strep collected at [facility] and pending. ?? Delivery indications: NRFHT, maternal deterioration, progressive labor ?? Delivery plan: TOLAC if progressive labor ?? Tocolysis: Ordered for Nifedipine 20mg loading followed by Nifedipine 20mg q8hr 2. Status ?? NST: daily; continuous monitoring currently ?? presentation: Cephalic as of 08/27/21/ ?? Last Growth US: Detailed morphology; ordered for growth sono for 08/27/21 ?? Steroid status: Complete on 08/08/21; rescue dose started 08/26/21 at 21:30; written for second dose on 08/27/21 at 21:30 ?? Magnesium for neuroprotection: N/a given gestational age ?? Consults obtained: Neonatology, Anesthesiology 3. Other Maternal Concerns ?? Asthma: Continue Trelegy, Montelukast, and Nebulizer PRN. Avoid hemabate. ?? H/x of C/S: Pt desires TOLAC; consent reviewed and signed at bedside 4. Care ?? Initial CBC and syphilis not located; ordered for syphilis and CBC on admission. 1hr GTT also not located. ?? GBS status: GBS pending (collected 08/26/21 at [facility]; they will send result) ?? T&S up to date, next due on 08/30/21, Rh positive ?? TDaP: Unknown; discuss with patient ?? Continue vitamin ?? Contraception Plan: Desires tubal if C/S; otherwise desires IUD 5. General Antepartum Care ?? hemorrhage risk: Medium, due to hx of C/S ?? Consents obtained: Section + BTL, Opioids, Consent for Delivery after Prior Section ?? Prophylaxis: SCDs in bed ?? Anticipated DC date: Pending maternal course Patient seen and discussed with Dr. Delacruz, Attending OBGYN Kendra Hernandez MD, PGY-3 08/27/2021 3:01 AM I have seen and evaluated the patient and reviewed the above history with Dr. Hernandez. I agree with the details as written. The assessment and plan were formulated in discussion with me and I agree with them as documented. 31 year old presents with contractions and early cervical dilation in the setting of history of prior . Pt notes that with her first she had back pain and mild discomfort with contractions. She ultimately had planned induction at 37 weeks due to advanced cervical dilation. At second she also did not have intense contractions and progressed to full dilation. So she finds it difficult to know when she is laboring with possible cervical change. PMHx ow notable for moderate asthma Exam today with normal blood pressure, and cervix 1 cm. No fever, no fundal tenderness, no bleeding. testing reassuring. Agree with plan for admission and evaluation and management of labor. Agree with plan to continue ampicillin for unknown GBS status for now until we determine if this islabor. Agree with plan for nifedipine tocolysis. Benefits and side effects reviewed with pt. Agree with plan for completion of rescue BMZ course. Will continue current asthma outpatient regimen. Will notify anesthesia of admission and plan consults as outlined. Discussed possible indications for CS such as change in presentation, or non-reassuring fetaltesting. Discussed rare risk of uterine rupture and need for emergent CS. General surgical risks such as bleeding, infection and injury to nearby organs discussed. Pt understands plan for observation as to whether there is labor progression. MARYLOU DELACRUZ MD documented in this encounter Miscellaneous Notes * Plan of Care - Shakila Mario RN - 08/28/2021 9:29 AM EDT Kiana stable for discharge today after observation for labor. Serial cervical exam unchanged. Pt denies worsening contractions or cramping, LOF or bleeding. +FM. Reactive NST this morning. Plan to follow up with home OB provider tomorrow. Discharge instructions provided to patient. * Consult Note - William Javed MD - 08/27/2021 12:21 PM EDT Requested by Marylou Delacruz MD to provide a consult to Kiana Merritt and discuss the anticipated evaluation and management of an infant born at 33 weeks gestation. Kiana is a 31 y/o G 3 P 2 B+/Ab neg/Rubella immune/HBsAg neg/HIV neg/Syphilis neg/GBS pending/GC neg/Chlamydia neg women at 33 weeks gestation and admitted to the [facility] due to labor (beta complete). Her has been complicated by the following: -- Hx of C/S: Pt desires TOLAC; Predicted chance of vaginal after : 84.9%; 95% confidence interval: 82.7% - 86.9%. Prior C/S due to cord prolapse at 28w after AROM at full dilation. Prior low transverse C/S with 2- layer closure. -- Hx of labor x 2: 2009; labor at 31 wks with progression to 5cm. Hospitalized until 35weeks and then AROMed at 37wks. 2016: Went into labor at 28w2d, AROMed at full dilation w/cord prolapse-->STAT , transferred from [facility] [place] [facility] [place]. Pt not taking progesterone asnot covered by insurance. -- Asthma: Moderately controlled with daily medication. Currently on Trelegy (pt takes 200 mcg dose, not 100 dose documented below in meds), Montelukast, ProAir PRN, and Nebulizer PRN. Was hospitalized this for an asthma exacerbation from 07/03-07/04 at [facility] due to no Trelagy for one month related to insurance issues. -- COVID during : Positive 03/30/21 (pt has been vaccinated and boosted); received monoclonal antibody -- S/p initial dose of betamethasone: Concern for contractions at 30w6d; received full doseof betamethasone. Last dose given 08/07. First dose of rescue course given 08/26/21. -- LSIL/HPV HR pos: Will need pap -- Tachycardia/POTS - Seen by [facility] who completed Ziopatch evaluation which demonstrated sinus tachycardia, but no malignant arrhythmias. Recommended against pharmacologic intervention during . I met with Kiana and her partner Golden. They are anticipating the of a daughter named Lilia.She is planning on her infant. We also discussed that parents are considered to be part of the care team and are welcome in the ICN at all times. We discussed the general care and management of an infant born at 33 weeks gestation, including RDS, feeding immaturity, apnea of prematurity. We also discussed the potential need for procedures including intubation and umbilical catheter placement. They had no further questions, and I reassured them that a member of the ICN team would be available to come back and address any further questions regarding the care of their son/daughter William Javed MD 08/27/2021 documented in this encounter Plan of Treatment Not on file documented as of this encounter Procedures Procedure Name Priority Date/Time Associated Diagnosis Comments US OB FOLLOW UP Routine 08/27/2021 10:07 AM EDT TYPE AND SCREEN VALIDITY Routine 08/27/2021 2:25 AM EDT ABORH RECHECK STATUS Routine 08/27/2021 2:25 AM EDT SCAN, PERIPHERAL BLOOD Routine 08/27/2021 2:25 AM EDT HEMOGRAM Routine 08/27/2021 2:25 AM EDT DIFFERENTIAL, AUTOMATED Routine 08/27/2021 2:25 AM EDT HC SYPHILIS ANTIBODY Routine 08/27/2021 2:25 AM EDT ABO/RH TYPING Routine 08/27/2021 2:25 AM EDT HC CBC,PLT & AUTO DIFF Routine 08/27/2021 2:25 AM EDT ANTIBODY SCREEN Routine 08/27/2021 2:25 AM EDT HC ANTIBODY DETECTION,CAPTURE-R Routine 08/27/2021 2:25 AM EDT URINALYSIS MICROSCOPIC EXAM Routine 08/27/2021 1:40 AM EDT URINE HOLD Routine 08/27/2021 1:40 AM EDT URINALYSIS WITH REFLEX CULTURE Routine 08/27/2021 1:40 AM EDT HC GC GENE AMP Routine 08/27/2021 12:40 AM EDT RAPID DRUG SCREEN, URINE Routine 08/27/2021 12:30 AM EDT RAPID DRUG SCREEN W/O CONFIRMATION, URINE Routine 08/27/2021 12:30 AM EDT documented in this encounter Results * US OB Follow Up (08/27/2021 10:07 AM EDT) Anatomical Region Laterality Modality Pelvis, Abdomen Ultrasound 08/27/2021 9:33 AM EDT Impressions 08/27/2021 11:03 AM EDT 3rd Trimester Summary Single intrauterine with a gestational age of 33w 6d based on LMP ??(01/02/21) Composite age based on the current ultrasound alone is 35w 3d. Estimated weight corresponds to the 92th percentile for 33w 6d. Amniotic fluid volume is normal Anatomical survey is limited due to the late gestational age. Thank you for letting us participate in the care of this patient. If you are a health care provider and have any questions regarding this report, please contact the number above. For patients who have questions, please contact the health care administrative tech that requested your imaging first. ?Abi Lezama, Orthopaedic Technologist Electronically Signed Final Report ?? 08/27/2021 11:03 am Narrative 08/27/2021 11:03 AM EDT OBSTETRICS REPORT ?(Signed Final 08/27/2021 11:03 am) PATIENT INFO: ID #: ? [id number] ?: ??[birth year] (31 yrs)(F) Name: ? KIANA Sarwat MERRITT ? Visit Date: 08/27/2021 09:33 am PERFORMED BY: Performed By: ? Anisha Perales RDMS Attending: ?Teja DIEHL, Abi Seth Referred By: ?MARYLOU DELACRUZ Location: ? [place] SERVICE(S) PROVIDED: UOBFOL - Efw - Growth ??- Gates - [id number] ?[id number] INDICATIONS: 33 weeks gestation of ?Z3A.33 31 yo at 33w5d in labor VITAL SIGNS: Weight (lb): 192.0 Height: ?5'5 ? BMI: ? 31.95 EVALUATION: Num Of Fetuses: ? 1 Heart Rate(bpm): ??126 Cardiac Activity: ? Observed, normal rhythm Presentation: ? Cephalic Placenta: ? Anterior P. Cord Insertion: ?Within Normal Limits Amniotic Fluid REAL FV: ?Normal REAL Sum(cm) ? Largest Pocket(cm) 17.6 ?7.6 RUQ(cm) ? RLQ(cm) ? LUQ(cm) ?LLQ(cm) 4.7 ? 3.6 ? 7.6 ?1.7 --------- BIOMETRY: --------- BPD: ?87.5 ??mm ? G.Age: ?? 35w 2d ?85 ??% OFD: ? 111.8 ??mm HC: ?318.0 ??mm ? G.Age: ?? 35w 5d ?64 ??% AC: ?321.0 ??mm ? G.Age: ?? 36w 0d ?96 ??% FL: ? 67.1 ??mm ? G.Age: ?? 34w 4d ?58 ??% HUM: ?59.5 ??mm ? G.Age: ?? 34w 4d ?70 ??% CER: ?44.9 ??mm ? G.Age: ?? 38w 6d ?> 95 ??% LV: ?9.1 ??mm CM: ?7.5 ??mm CI: ?78.3 ??% ? 70 - 86 FL/HC: ? 21.1 ??% ? 19.4 - 21.8 HC/AC: ? 0.99 ?0.96 - 1.11 FL/BPD: ?76.7 ??% ? 71 - 87 FL/AC: ? 20.9 ??% ? 20 - 24 Est. FW: ?2702 ??gm ?5 lb 15 oz ? 92 ??% OB HISTORY: : ?3 ? Term: ?? 1 ?Lencho: ?? 1 Living: ? 2 GESTATIONAL AGE: LMP: ? 33w 6d ?Date: ??01/02/21 ? ZITA: ?? 10/09/21 U/S Today: ? 35w 3d ?ZITA: ?? 09/28/21 Best: ?33w 6d ?? Det. By: ??LMP ??(01/02/21) ?ZITA: ?? 10/09/21 -------- ANATOMY: -------- Cranium: ? Visualized Cavum: ? Visualized Ventricles: ?Visualized Choroid Plexus: ?Visualized Cerebellum: ?Visualized Posterior Fossa: ? Visualized Nuchal Fold: ? Not evaluated at this gestational age Face: ?Limited views Heart: ? 4-chamber view appears normal Diaphragm: ? Visualized Stomach: ? Visualized Abdomen: ? Within Normal Limits Abdominal Wall: ?Not seen due to late gestational age Cord Vessels: ?3-vessels- WNL Kidneys: ? Visualized Bladder: ? Visualized Spine: ? Limited views Upper Extremities: ? Limited views Lower Extremities: ? Limited views CERVIX UTERUS ADNEXA: Right Ovary Not visualized Left Ovary Not visualized Procedure Note Abi Lezama MD - 08/27/2021 OBSTETRICS REPORT (Signed Final 08/27/2021 11:03 am) PATIENT INFO: ID #: [id number] : [birth year] (31 yrs)(F) Name: KIANA MERRITT Visit Date: 08/27/2021 09:33 am PERFORMED BY: Performed By: Anisha Perales RDMS Attending: Abi Lezama MD Referred By: MARYLOU DELACRUZ Location: [place] SERVICE(S) PROVIDED: UOBFOL - Efw - Growth - [place] - [id number] INDICATIONS: 33 weeks gestation of Z3A.33 31 yo at 33w5d in labor VITAL SIGNS: Weight (lb): 192.0 Height: 5'5 BMI: 31.95 EVALUATION: Num Of Fetuses: 1 Heart Rate(bpm): 126 Cardiac Activity: Observed, normal rhythm Presentation: Cephalic Placenta: Anterior P. Cord Insertion: Within Normal Limits Amniotic Fluid REAL FV: Normal REAL Sum(cm) Largest Pocket(cm) 17.6 7.6 RUQ(cm) RLQ(cm) LUQ(cm) LLQ(cm) 4.7 3.6 7.6 1.7 --------- BIOMETRY: --------- BPD: 87.5 mm G.Age: 35w 2d 85 % OFD: 111.8 mm HC: 318.0 mm G.Age: 35w 5d 64 % AC: 321.0 mm G.Age: 36w 0d 96 % FL: 67.1 mm G.Age: 34w 4d 58 % HUM: 59.5 mm G.Age: 34w 4d 70 % CER: 44.9 mm G.Age: 38w 6d > 95 % LV: 9.1 mm CM: 7.5 mm CI: 78.3 % 70 - 86 FL/HC: 21.1 % 19.4 - 21.8 HC/AC: 0.99 0.96 - 1.11 FL/BPD: 76.7 % 71 - 87 FL/AC: 20.9 % 20 - 24 Est. FW: 2702 gm 5 lb 15 oz 92 % OB HISTORY: : 3 Term: 1 Lencho: 1 Livin GESTATIONAL AGE: LMP: 33w 6d Date: 01/02/21 ZITA: 10/09/21 U/S Today: 35w 3d ZITA: 09/28/21 Best: 33w 6d Det. By: LMP (01/02/21) ZITA: 10/09/21 -------- ANATOMY: -------- Cranium: Visualized Cavum: Visualized Ventricles: Visualized Choroid Plexus: Visualized Cerebellum: Visualized Posterior Fossa: Visualized Nuchal Fold: Not evaluated at this gestational age Face: Limited views Heart: 4-chamber view appears normal Diaphragm: Visualized Stomach: Visualized Abdomen: Within Normal Limits Abdominal Wall: Not seen due to late gestational age Cord Vessels: 3-vessels- WNL Kidneys: Visualized Bladder: Visualized Spine: Limited views Upper Extremities: Limited views Lower Extremities: Limited views CERVIX UTERUS ADNEXA: Right Ovary Not visualized Left Ovary Not visualized IMPRESSION 3rd Trimester Summary Single intrauterine with a gestational age of 33w 6d based on LMP (01/02/21) Composite age based on the current ultrasound alone is 35w 3d. Estimated weight corresponds to the 92th percentile for 33w 6d. Amniotic fluid volume is normal Anatomical survey is limited due to the late gestational age. Thank you for letting us participate in the care of this patient. If you are a health care provider and have any questions regarding this report, please contact the number above. For patients who have questions, please contact the health care administrative tech that requested your imaging first. Abi Lezama, Orthopaedic Technologist Electronically Signed Final Report 08/27/2021 11:03 am Marylou Delacruz MD IMG US OB ORDERABLES * Type and Screen Validity (08/27/2021 2:25 AM EDT) T&S only valid at [facility] LABORATORY Comment:This Type and Screen result is only valid at the [facility] Blood 08/27/2021 2:25 AM EDT 08/27/2021 2:38 AM EDT Narrative Resulting Agency Comment Spec In Lab Kendra Weston MD BLOOD BANK LAB ORDERABLES [facility] [place] [address] * Scan, Peripheral Blood (08/27/2021 2:25 AM EDT) Plat estimate Normal [facility] RBC Morphology Abnormal [facility] Microcyte 6-10 /HPF [facility] Hypochromia Slight [facility] Polychromasia Present >5/HPF [facility] Ovalocytes 1-5 /HPF [facility] Tear Cell 1-5 /HPF [facility] Yokasta Cells 1-5 /HPF [facility] Stippled RBC Present >1/HPF [facility] Plat, Giant Less than 1 /HPF [facility] Blood 08/27/2021 2:25 AM EDT 08/27/2021 2:50 AM EDT Narrative Resulting Agency Comment Spec In Lab Kendra Weston MD HEMATOLOGY ORDE RABLES Performing Organization Address City/[facility]/ZIP Co de Phone Number [facility] [place] [address] * ABORH Recheck Status (08/27/2021 2:25 AM EDT) Pathologist [facility] ABORH Recheck Order Order Placed [facility] ABORH Type Recheck Not performe [facility] Blood 08/27/2021 2:25 AM EDT 08/27/2021 2:38 AM EDT Narrative Resulting Agency Comment Spec In Lab Kendra Weston MD BLOOD BANK LAB ORDERABLES Performing Organization Address [facility]/ZIP Co de Phone Number [facility] [place] [address] * (ABNORMAL) Differential, Automated (08/27/2021 2:25 AM EDT) Pathologist [facility] Neutrophil % 84.5 % [facility] Neutrophil Absolute 11.30(H) 1.70 - 6.10 x10(3)/mc L [facility] Lymph % 10.7 % [facility] Lymphocytes Abs 1.4 0.9 - 3.2 x10(3)/mc L [facility] Monocyte % 1.6 % [facility] Monocyte Abs 0.2(L) 0.3 - 0.9 x10(3)/mc L [facility] Eos % 0.5 % [facility] Eosinophils Abs 0.1 0.0 - 0.4 x10(3)/[facility] LABORATORY Basophil % 0.2 % [facility] Baso Absolute 0.0 0.0 - 0.1 x10(3)/[facility] LABORATORY Immature Gran % 2.50 % [facility] Comment: Immature granulocytes(IG's)percentage and absolute count will include metamyelocytes, myelocytes, and promyelocytes. Blood smears from CBCs yielding IG's will be scanned manually for concordance. If this scan disagrees with the automated IG or if promyelocytes are noted, a manual differential will be performed. Immature Gran Absolute 0.34(H) 0.00 - 0.04 x10(3)/[facility] Blood 08/27/2021 2:25 AM EDT 08/27/2021 2:50 AM EDT Narrative Resulting Agency Comment Spec In Lab Kendra Weston MD HEMATOLOGY [facility] [place] [id number] * (ABNORMAL) Hemogram (08/27/2021 2:25 AM EDT) White Blood Cell 13.4(H) 4.0 - 9.5 x10(3)/[facility] LABORAT[facility] Red Blood Cell 4.25 4.00 - 5.21 x10(6)/[facility] Hemoglobin 9.4(L) 11.7 - 15.5 g/dL [facility] Hematocrit 30.0(L) 35.7 - 45.8 % [facility] Mean Cell Volume 70.6(L) 82.6 - 94.[address] [facility] Mean Cell Hemoglobin 22.1(L) 27.1 - 32.[address] [facility] Mean Cell Hemoglobin Concentration 31.3(L) 31.7 - 35.0 g/dL [facility] Platelet 208 145 - 357 x10(3)/mc L [facility] RDW Standard Deviation 40.6 37.0 - 46.[address] [facility] RDW coefficient of variation 16.0(H) 11.5 - 14.1 % [facility] Mean Platelet Volume 10.7 7.6 - 12.[address] [facility] NRBC% auto 0.0 % [facility] NRBC Absolute 0.000 0.000 - 0.000 x10(3)/mc L [facility] Blood 08/27/2021 2:25 AM EDT 08/27/2021 2:50 AM EDT Narrative Resulting Agency Comment Spec In Lab Kendra Weston MD HEMATOLOGY [facility] Performing Organization Address City/[facility]/ZIP Co de Phone Number [facility] [place] [address] * Antibody screen (08/27/2021 2:25 AM EDT) Ab Screen Interp Negative [facility] Expires at [id number] on: 08/30/2021 [facility] Blood 08/27/2021 2:25 AM EDT 08/27/2021 2:38 AM EDT Narrative Resulting Agency Comment Spec In Lab Kendra Weston MD BLOOD BANK LAB ORDERABLES Performing Organization Address City/[facility]/ZIP Co de Phone Number [facility] [place] [address] * ABO/Rh Typing (08/27/2021 2:25 AM EDT) ABORH Type B Pos [facility] Blood 08/27/2021 2:25 AM EDT 08/27/2021 2:38 AM EDT Narrative Resulting Agency Comment Spec In Lab Kendra Weston MD BLOOD BANK LAB ORDERABLES Performing Organization Address City/[facility]/ZIP Co de Phone Number [facility] [place] [address] * Syphilis Screening Antibody with reflex RPR (08/27/2021 2:25 AM EDT) Syphilis IgG/IgM Negative Negative [facility] Blood 08/27/2021 2:25 AM EDT 08/27/2021 2:50 AM EDT Narrative Resulting Agency Comment Spec In Lab Marylou Delacruz MD CHEMISTRY ORDERABLES Performing Organization Address [facility] Co de Phone Number [facility] [place] [address] * (ABNORMAL) Urinalysis Microscopic Exam (08/27/2021 1:40 AM EDT) RBC, Urine 2 0 - 4 /HPF [facility] WBC, Urine 2 0 - 5 /HPF [facility] Squamous Epithelial Cells Raw Data, Urine 2 <=4 /HPF [facility] Amorphous Crystals, Urine Occasional (A) None /HPF [facility] Clean Catch Urine 08/27/2021 1:40 AM EDT 08/27/2021 2:51 AM EDT Narrative Resulting Agency Comment Spec In Lab Kendra Weston MD URINE ORDERABLE S Performing Organization Address City/[facility]/ZIP Co de Phone Number [facility] [place] [address] * Urine Hold (08/27/2021 1:40 AM EDT) Hold, Urine Sample in lab. [facility] Urine Urine / Unknown 08/27/2021 1 :40 AM EDT 08/27/2021 2:51 AM EDT Kendra Weston MD URINE ORDERABLE S Performing Organization Address City/[facility]/ZIP Co de Phone Number [facility] [place] [address] * (ABNORMAL) Urinalysis with reflex Culture (08/27/2021 1:40 AM EDT) Pathologist [facility] Glucose, Urine Dipstick 250(A) Negative mg/dL [facility] Protein, Urine Dipstick Negative Negative mg/dL [facility] Bilirubin, Urine Dipstick Negative Negative mg/dL [facility] Comment: Clinical correlation required for positive Urine Bilirubin results as false positive may occur with some drugs and drug related products. If a false positive is suspected a serum total bilirubin should be considered if clinically indicated. Urobilinogen, Urine Dipstick Normal Normal mg/dL [facility] pH, Urn (dipstick) 7.5 5.0 - 8.0 [facility] Blood, Urine Dipstick Negative Negative mg/dL [facility] Ketone, Urine Dipstick Trace(A) Negative mg/dL [facility] Nitrite, Urine Dipstick Negative Negative [facility] Leukocytes, Urine Dipstick Trace(A) Negative [facility] Appearance, Urine Dipstick Cloudy(A) Clear [facility] Specific [place] Urine Automated 1.010 1.005 - 1.030 [facility] Color, Urine Dipstick Yellow Yellow [facility] Reflex to Culture No [facility] Clean Catch Urine 08/27/2021 1:40 AM EDT 08/27/2021 2:51 AM EDT Narrative Resulting Agency Comment Spec In Lab Marylou Delacruz MD URINE ORDERABLES [facility] [place] [address] * GC/[place] Cervical (08/27/2021 12:40 AM EDT) Pathologist [facility] GC Gene Amp Negative Negative [facility] Comment: The only FDA approved specimen types for this assay are cervical, vaginal, urethral and urine. Non-FDA approved sources are eye, throat and rectal and have been internally validated. GC Source Cervical [facility] Chlamydia Gene Amp Negative Negative [facility] Comment: The only FDA approved specimen types for this assay are cervical, vaginal, urethral and urine. Non-FDA approved sources are eye, throat and rectal and have been internally validated. Chlm Source Cervical [facility] Cervical 08/27/2021 12:4 0 AM EDT 08/27/2021 5:10 AM EDT Narrative Resulting Agency Comment Spec In Lab Marylou Delacruz MD MICROBIOLOGY - GENER AL ORDERABLES [facility] [place] [address] * Rapid Drug Screen w/o Confirmation, Urine (08/27/2021 12:30 AM EDT) Barbiturates Screen, Urine None Detected None Detected [facility] Comment: The barbiturate screen detects barbiturates at concentrations >200 ng/mL. Note: Not all barbiturates cross-react equally with antibody used in this screen. A ? Presumptive Positive? result indicates that the screening result was positive but has not yet been confirmed by a highly-specific method. As with any screen, occasional false positive results from cross-reacting substances may occur. Not for Medico-Legal Purposes. Benzodiazepines Screen, Urine None Detected None Detected [facility] Comment: The benzodiazepines screen detects benzodiazepines at concentrations >100 ng/mL. Not all benzodiazepines cross-react equally with antibody used in this screen. Due to the low dosage of clonazepam, false negatives may be obtained due to low concentration of clonazepam metabolites. A ? Presumptive Positive? result indicates that the screening result was positive but has not yet been confirmed by a highly-specific method. As with any screen, occasional false positive results from cross-reacting substances may occur. Not for Medico-Legal Purposes. Cocaine Screen, Urine None Detected None Detected [facility] Comment: The cocaine metabolites screen detects benzoylecgonine (Cocaine Metabolite) at concentrations >150 ng/mL. A ? Presumptive Positive? result indicates that the screening result was positive but has not yet been confirmed by a highly-specific method. As with any screen, occasional false positive results from cross-reacting substances may occur. Not for Medico-Legal Purposes. Methadone Metabolites Screen, Urine None Detected None Detected [facility] Comment: The methadone metabolite screen detects EDDP (major methadone metabolite) at concentrations >100 ng/mL. A ? Presumptive Positive? result indicates that the screening result was positive but has not yet been confirmed by a highly-specific method. As with any screen, occasional false positive results from cross-reacting substances may occur. Not for Medico-Legal Purposes. Opiate Screen, Urine None Detected None Detected [facility] Comment: The opiates screen detects opiates at concentrations >300 ng/mL. Please note that oxycodone, oxymorphone, fentanyl, tramadol, and other synthetic opioids are not detected by the opiate screen. A ? Presumptive Positive? result indicates that the screening result was positive but has not yet been confirmed by a highly-specific method. As with any screen, occasional false positive results from cross-reacting substances may occur. Not for Medico-Legal Purposes. Cannabinoid Screen, Urine None Detected None Detected [facility] Comment: The marijuana metabolites screen detects the THC metabolite (33-aka-5-carboxy-delta 9-THC) at concentrations >20 ng/mL. A ? Presumptive Positive? result indicates that the screening result was positive but has not yet been confirmed by a highly-specific method. As with any screen, occasional false positive results from cross-reacting substances may occur. Not for Medico-Legal Purposes. Oxycodone Screen, Urine None Detected None Detected [facility] Comment: The oxycodone screen detects oxycodone and oxymorphone at concentrations >100 ng/mL. A ? Presumptive Positive? result indicates that the screening result was positive but has not yet been confirmed by a highly-specific method. As with any screen, occasional false positive results from cross-reacting substances may occur. Not for Medico-Legal Purposes. Buprenorphine Screen, Urine None Detected None Detected [facility] Comment: The buprenorphine screen detects buprenorphine at concentrations >5 ng/mL. A ? Presumptive Positive? result indicates that the screening result was positive but has not yet been confirmed by a highly-specific method. As with any screen, occasional false positive results from cross-reacting substances may occur. Not for Medico-Legal Purposes. Fentanyl Screen, Urine None Detected None Detected [facility] Comment: The fentanyl screen detects fentanyl at concentrations >2 ng/mL. A ? Presumptive Positive? result indicates that the screening result was positive but has not yet been confirmed by a highly-specific method. As with any screen, occasional false positive results from cross-reacting substances may occur. Not for Medico-Legal Purposes. Tricyclics Screen, Urine None Detected None Detected [facility] Comment: The tricyclics screen detects tricyclic antidepressants at concentrations >150 ng/mL. Not all tricyclics cross-react equally with the antibody used in this screen. A ? Presumptive Positive? result indicates that the screening result was positive but has not yet been confirmed by a highly-specific method. As with any screen, occasional false positive results from cross-reacting substances may occur. Not for Medico-Legal Purposes. Ethanol Screen, Urine None Detected None Detected [facility] Comment:This urine ethanol a ssay detects ethanol at concentrations >/= 100 mg/L. Amphetamines Screen, Urine None Detected None Detected [facility] Comment: The amphetamine screen detects d-amphetamine and d-methamphetamine at concentrations >300 ng/mL. A ? Presumptive Positive? result indicates that the screening result was positive but has not yet been confirmed by a highly-specific method. As with any screen, occasional false positive results from cross-reacting substances may occur. Not for Medico-Legal Purposes. Adulterants Screen, Urine None Detected None Detected [facility] Comment: No adulteration or dilution of this urine sample was detected. All urine samples submitted for urine drugs of abuse analysis are tested for creatinine concentration, pH, and for the presence of oxidants, nitrites, and chromate. Urine 08/27/2021 12:3 0 AM EDT 08/27/2021 1:52 AM EDT Narrative Resulting Agency Comment Spec In Lab Kendra Weston MD CHEMISTRY ORDER SHITAL [facility] [place] [address] * Rapid Drug Screen, Urine (TIFFANY Request) (08/27/2021 12:30 AM EDT) TIFFANY Conf Requested No [facility] TIFFANY Requested See Comment [facility] Comment:Refer to Rapid Drug Screen w/o Confirmation, Urine for results. Urine 08/27/2021 12:3 0 AM EDT 08/27/2021 1:52 AM EDT Narrative Resulting Agency Comment Spec In Lab Marylou Delacruz MD URINE ORDERABLES Performing Organization Address [facility] Co de Phone Number [facility] [place] [address] documented in this encounter Visit Diagnoses Diagnosis labor Early onset of delivery, unspecified as to episode of care documented in this encounter Admitting Diagnoses Diagnosis labor Early onset of delivery, unspecified as to episode of care documented in this encounter Administered Medications Inactive Administered Medications - up to 3 most recent administrations Medication Order MAR Action Action Date Dose Rate Site albuteroL (Proventil) nebulizer solution 2.5 mg 2.5 mg, Nebulization, EVERY 4 HOURS PRN, Starting on Thu08/27/21 at 0147, Until Thu08/28/21 at 1149, Wheezing, Shortness of Breath, Routine betamethasone acetate-betamethasone sodium phosphate (Celestone) (6 mg/mL) injection 12 mg 12 mg, Intramuscular, ONCE, 1 dose, On Thu08/28/21 at 2130, Routine diphenhydrAMINE (Benadryl) capsule 50 mg 50 mg, Oral, NIGHTLY PRN, Starting on Thu08/27/21 at 0158, Until Thu08/28/21 at 1149, Itching, Routine Given 08/27/2021 2:05 AM EDT 50 mg ubwkckiukic-aclwkgnouvvx-nnivksfvg l (Trelegy Ellipta) 200-62.5-25 mcg inhaler 1 puff 1 puff, Inhalation, DAILY, First dose on Thu08/27/21 at 0900, Until Discontinued, Rinse mouth with water after use (do not swallow)., Routine, Does the patient have the inspiratory effort to support a dry powder inhaler? Yes Given 08/28/2021 8:47 AM EDT 1 puff Given 08/27/2021 8:09 AM EDT 1 puff montelukast (Singulair) tablet 10 mg 10 mg, Oral, NIGHTLY, First dose on Thu08/27/21 at 2100, Until Discontinued, Routine Given 08/27/2021 8:49 PM EDT 10 mg NIFEdipine (Procardia) capsule 20 mg 20 mg, Oral, ONCE, 1 dose, On Thu08/27/21 at 0200, May repeat in 30 minutes if still sam, Routine, Is NIFEdipine being used for tocolytic in labor? Yes Given 08/27/2021 1:30 AM EDT 20 mg NIFEdipine (Procardia) capsule 20 mg 20 mg, Oral, EVERY 8 HOURS, First dose on Thu08/27/21 at 1000, Until Discontinued, Hold NIFEdipine for blood pressure less than 85/55 mmHg and notify provider, Routine, Is NIFEdipine being used for tocolytic in labor? Yes Given 08/28/2021 1:38 AM EDT 20 mg Given 08/27/2021 5:44 PM EDT 20 mg Given 08/27/2021 10:31 AM EDT 20 mg NIFEdipine (Procardia) capsule 20 mg 20 mg, Oral, ONCE, 1 dose, On Thu08/27/21 at 0245, Routine, Is NIFEdipine being used for tocolytic in labor? Yes Given 08/27/2021 2:05 AM EDT 20 mg penicillin G potassium (Pfizerpen) 3 million units in dextrose 5% 50 mL infusion 3 Million Units, Intravenous, EVERY 4 HOURS, First dose on Thu08/27/21 at 0600, Until Discontinued, Administer over 60 Minutes, Until delivery for GBS prophylaxis, Indication for (Active or Suspected): Prophylaxis New Bag 08/27/2021 6:15 AM EDT 3 Million Units 50 mL/hr penicillin G potassium (Pfizerpen) 5 million unit vial attach to sodium chloride 0.9% 100 mL Mini-Bag Plus 5 Million Units, Intravenous, ONCE, 1 dose, On Thu08/27/21 at 0145, Administer over 60 Minutes, Attach to 100 mL sodium chloride 0.9% Mini-Bag Plus. Warning Vesicant/Irritant Medication , Indication for (Active or Suspected): Prophylaxis New Bag 08/27/2021 2:14 AM EDT 5 Million Units 100 mL/hr sodium chloride 0.9 % (flush) (BD PosiFlush Normal Saline 0.9) flush 5 mL 5 mL, Intravenous, 2 TIMES DAILY, First dose on Thu08/27/21 at 0215, Until Discontinued, Routine Given 08/27/2021 8:48 PM EDT 5 mLs Given 08/27/2021 8:10 AM EDT 5 mLs Given 08/27/2021 1:40 AM EDT 5 mLs sodium chloride 0.9 % (flush) (BD PosiFlush Normal Saline 0.9) flush 5-20 mL 5-20 mL, Intravenous, EVERY 1 MIN PRN, Starting on Thu08/27/21 at 0118, Until Thu08/28/21 at 1149, flush, Flush pertains to all indwelling lines. Flush per protocol found in the job aid using the link provided on this medication record., Routine Given 08/27/2021 7:18 AM EDT 5 mLs documented in this encounter Active and Recently Administered Medications Times are shown in EDT. Scheduled Medication Order 08/26/2021 08/27/2021 08/28/2021 betamethasone acetate-betamethasone sodium phosphate (Celestone) (6 mg/mL) injection 12 mg 12 mg, Intramuscular, ONCE, 1 dose, On Thu08/28/21 at 2130, Routine cxmpwxwiipm-hwquvkchgned-i ilanterol (Trelegy Ellipta) 200-62.5-25 mcg inhaler 1 puff 1 puff, Inhalation, DAILY, First dose on Thu08/27/21 at 0900, Until Discontinued, Rinse mouth with water after use (do not swallow)., Routine, Does the patient have the inspiratory effort to support a dry powder inhaler? Yes 0809 (Given - Provider: Fatimah Gomez RN) 0847 (Given - Provider: Shakila Mario RN) montelukast (Singulair) tablet 10 mg 10 mg, Oral, NIGHTLY, First dose on Thu08/27/21 at 2100, Until Discontinued, Routine 2048 (Given - Provider: Nena Christie, RN) NIFEdipine (Procardia) capsule 20 mg (COMPLETED)(Linked Group 1) 20 mg, Oral, ONCE, 1 dose, On Thu08/27/21 at 0200, May repeat in 30 minutes if still sam, Routine, Is NIFEdipine being used for tocolytic in labor? Yes 013 (Given - Provider: Snehal Deras RN) NIFEdipine (Procardia) capsule 20 mg (CANCELED)(Linked Group 1) 20 mg, Oral, EVERY 8 HOURS, First dose on Thu08/27/21 at 1000, Until Discontinued, Hold NIFEdipine for blood pressure less than 85/55 mmHg and notify provider, Routine, Is NIFEdipine being used for tocolytic in labor? Yes 103 (Given - Provider: Juliet Harris, SIMONA)1744 (Given - Provider: Natalia Payne RN) 013 (Given - Provider: Nena Christie, SIMONA) NIFEdipine (Procardia) capsule 20 mg (COMPLETED) 20 mg, Oral, ONCE, 1 dose, On Thu08/27/21 at 0245, Routine, Is NIFEdipine being used for tocolytic in labor? Yes 204 (Given - Provider: Snehal Deras RN - Comment: pt still sam, EFM strip reviewed with MDs) penicillin G potassium (Pfizerpen) 3 million units in dextrose 5% 50 mL infusion (CANCELED)(Linked Group 2) 3 Million Units, Intravenous, EVERY 4 HOURS, First dose on Thu08/27/21 at 0600, Until Discontinued, Administer over 60 Minutes, Until delivery for GBS prophylaxis, Indication for (Active or Suspected): Prophylaxis 0615 (New Bag - Provider: Snehal Deras RN)0717 (Stopped - Provider: Juliet Harris RN) penicillin G potassium (Pfizerpen) 5 million unit vial attach to sodium chloride 0.9% 100 mL Mini-Bag Plus (COMPLETED)(Linked Group 2) 5 Million Units, Intravenous, ONCE, 1 dose, On Thu08/27/21 at 0145, Administer over 60 Minutes, Attach to 100 mL sodium chloride 0.9% Mini-Bag Plus. Warning Vesicant/Irritant Medication , Indication for (Active or Suspected): Prophylaxis 0214 (New Bag - Provider: Snehal Deras RN)0314 (Stopped - Provider: Snehal Deras RN) sodium chloride 0.9 % (flush) (BD PosiFlush Normal Saline 0.9) flush 5 mL 5 mL, Intravenous, 2 TIMES DAILY, First dose on Thu08/27/21 at 0215, Until Discontinued, Routine 0140 (Given - Provider: Snehal Deras RN)0810 (Given - Provider: Fatimah Gomez RN)2048 (Given - Provider: Nena Christie RN) 0900 (Not Given - Provider: Shakila Mario RN - Reason: Loss of access) PRN Medication Order 08/26/2021 08/27/2021 08/28/2021 acetaminophen (Tylenol) tablet 325 mg 325 mg, Oral, EVERY 4 HOURS PRN, Starting on Thu08/27/21 at 0118, Until Thu08/28/21 at 1149, Pain, mild pain (1-3), Maximum dose of acetaminophen is 4000 mg from all sources in 24 hours. When ordered for pain, acetaminophen should be given even when other ordered pain medications are indicated., Routine albuteroL (Proventil) nebulizer solution 2.5 mg 2.5 mg, Nebulization, EVERY 4 HOURS PRN, Starting on Thu08/27/21 at 0147, Until Thu08/28/21 at 1149, Wheezing, Shortness of Breath, Routine calcium carbonate (Tums) chewable tablet 1,000 mg 1,000 mg (2 tablet), Oral, EVERY 4 HOURS PRN, Starting on Thu08/27/21 at 0118, Until Thu08/28/21 at 1149, Heartburn, If both calcium carbonate (TUMS) and alum-mag hydroxide-simeth (MAALOX) ordered, administer calcium carbonate (TUMS) first, if ineffective administer alum-mag hydroxide-simeth (MAALOX)., Routine diphenhydrAMINE (Benadryl) capsule 50 mg 50 mg, Oral, NIGHTLY PRN, Starting on Thu08/27/21 at 0158, Until Thu08/28/21 at 1149, Itching, Routine 0205 (Given - Provider: Charlene Deras RN) docusate sodium (Colace) capsule 100 mg 100 mg, Oral, 2 TIMES DAILY PRN, Starting on Thu08/27/21 at 0118, Until Thu08/28/21 at 1149, Constipation, If multiple PRN bowel medications ordered, start with ducusate, then magnesium citrate. Multiple medications may be given concomitantly for constipation., Routine lidocaine (pf) (Xylocaine) (10 mg/mL) 1% injection 300 mg 300 mg, Subcutaneous, ONCE PRN, 1 dose, Starting on Thu08/27/21 at 0118, Until Thu08/28/21 at 1149, Repair of laceration following delivery., Routine lidocaine (Xylocaine) 1% (10 mg/mL) injection 3 mg 3 mg (0.3 mL), Subcutaneous, ONCE PRN, 1 dose, Starting on Thu08/27/21 at 0118, Until Thu08/28/21 at 1149, for discomfort with PIV insertion, Routine lidocaine (Xylocaine) 2 % jelly 1 Bottle 1 Bottle, Topical (Top), ONCE PRN, Pain, Repair of laceration following delivery and/or prior to urinary catheter placement., Starting on Thu08/27/21 at 0118, 1 dose, Until Thu08/28/21 at 1149 mineral oiL liquid 25 mL 25 mL, Topical (Top), ONCE PRN, 1 dose, Starting on Thu08/27/21 at 0118, Until Thu08/28/21 at 1149, For perineal stretching during pushing., Routine ondansetron (pf) (Zofran) (2 mg/mL) injection 4 mg 4 mg, Intravenous, EVERY 8 HOURS PRN, Starting on Thu08/27/21 at 0118, Until Thu08/28/21 at 1149, Nausea, Vomiting, May repeat in 30 minutes if inefffective oxytocin (Pitocin) (0.06 units/mL) in sodium chloride 0.9% 500 mL infusion 30 Units (500 mL), Intravenous, Administer over 1 Hours, ONCE PRN, 1 dose, Starting on Thu08/27/21 at 0118, Until Thu08/28/21 at 1149, At the discretion of the provider following delivery., . , Routine sodium chloride 0.9 % (flush) (BD PosiFlush Normal Saline 0.9) flush 5-20 mL 5-20 mL, Intravenous, EVERY 1 MIN PRN, Starting on Thu08/27/21 at 0118, Until Thu08/28/21 at 1149, flush, Flush pertains to all indwelling lines. Flush per protocol found in the job aid using the link provided on this medication record., Routine 0718 (Given - Provider: Eunice Harris RN) Linked Groups Order Group 1: NIFEdipine (Procardia) capsule 20 mg (COMPLETED)Jump to med 20 mg, Oral, ONCE, 1 dose, On Thu08/27/21 at 0200, May repeat in 30 minutes if still sam, Routine, Is NIFEdipine being used for tocolytic in labor? Yes Followed by NIFEdipine (Procardia) capsule 20 mg (CANCELED)Jump to med 20 mg, Oral, EVERY 8 HOURS, First dose on Thu08/27/21 at 1000, Until Discontinued, Hold NIFEdipine for blood pressure less than 85/55 mmHg and notify provider, Routine, Is NIFEdipine being used for tocolytic in labor? Yes Group 2: penicillin G potassium (Pfizerpen) 5 million unit vial attach to sodium chloride 0.9% 100 mL Mini-Bag Plus (COMPLETED)Jump to med 5 Million Units, Intravenous, ONCE, 1 dose, On Thu08/27/21 at 0145, Administer over 60 Minutes, Attach to 100 mL sodium chloride 0.9% Mini-Bag Plus. Warning Vesicant/Irritant Medication , Indication for (Active or Suspected): Prophylaxis Followed by penicillin G potassium (Pfizerpen) 3 million units in dextrose 5% 50 mL infusion (CANCELED)Jump to med 3 Million Units, Intravenous, EVERY 4 HOURS, First dose on Thu08/27/21 at 0600, Until Discontinued, Administer over 60 Minutes, Until delivery for GBS prophylaxis, Indication for (Active or Suspected): Prophylaxis documented in this encounter Care Teams Fashion Consultant Selling Relationship Specialty Start Date End Date Nadja Doan, JOSE [address] [place] [address] PCP - General Family Medicine 11/19/20 11/20/22 documented as of this encounter
--- OUTSIDE RECORDS SUMMARY | 2023-10-31 10:23 | XMS_ITS | Encounter Summary ---
Author Organization [facility] [place] [address] Care Team Providers Care Clinical Rn Name Role Phone Hieu Lombardi DNP Primary Care Provider [phone] Reason for Referral * Consultation (Routine) - Closed Specialty Diagnoses / Procedures Referred By Contac t Referred To Contact Cardiology Diagnoses POTS (postural orthostatic tachycardia syndrome) Asthma, unspecified asthma severity, unspecified whether complicated, unspecified whether persistent POTS - cannot tolerate BB's, has uncontrolled asthma, on Dupixent, Trelegy, montelukast, may switch to Xolair per Pulm. Was on BB very briefly, made asthma worse. Hieu Lombardi DNP [address] [place] [address] [facility] [address] [place] [phone] Referral ID Status Reason Start Date Expiration Date V isits Requested Visits Authorized [id number] Closed Consult, Test & Treat 12/23/2022 12/23/2023 1 1 Encounter Details Date Type Department Care Team (Late st Contact Info) Description 12/23/2022 Transcribe Orders eDH Incoming Referrals [phone] Hieu Lombradi DNP [address] [place], [place] [id number] POTS (postural orthostatic tachycardia syndrome); Asthma, unspecified asthma severity, unspecified whether complicated, unspecified whether persistent Social History Tobacco Use Types Packs/Day Years Used Date Smoking Tobacco: Never Smokeless Tobacco: Never Alcohol Use Standard Drinks/Week Comments No 0 (1 standard drink = 0.6 oz pur e alcohol) Sex and Gender Information Value Date Recorded Sex Assigned at Not on file Gender Identity Not on file Sexual Orientation Not on file documented as of this encounter Plan of Treatment Scheduled Referrals Name Type Priority Associated Diagnoses Orde r Schedule Referral to Cardiology Outpatient Referral Routine POTS (postural orthostatic tachycardia syndrome) Asthma, unspecified asthma severity, unspecified whether complicated, unspecified whether persistent Ordered: 12/23/2022 documented as of this encounter Visit Diagnoses Diagnosis POTS (postural orthostatic tachycardia syndrome) Tachycardia, unspecified Asthma, unspecified asthma severity, unspecified whether complicated, unspecified whether persistent documented in this encounter Care Teams Clinical Rn Relationship Specialty Start Date End Date Hieu Lombardi DNP [address] [place] [address] PCP - General Family Medicine 11/21/22 documented as of this encounter
--- OUTSIDE RECORDS SUMMARY | 2023-10-31 10:23 | XMS_ITS | Encounter Summary ---
Author Organization [facility] [place] [address] Care Team Providers Care Older Worker Specialist Name Role Phone Nadja Doan APRN Primary Care Provider [phone] Reason for Visit * Consultation (Routine) - Closed Specialty Diagnoses / Procedures Referred By Renzo t Referred To Contact Audiology Diagnoses Dizziness and giddiness VNG abnormal auditory perception, unspecified laterality Dizziness Arie Hunter, DO [address] [place] [address] [facility] [address] [place] [phone] Referral ID Status Reason Start Date Expiration Date Visits Re quested Visits Authorized [id number] Closed 11/02/2020 11/02/2021 1 1 Encounter Details Date Type Department Care Team (Latest Contact Info) Description 01/16/2021 1:00 PM EST Procedure visit Audiology at [address] [phone] Frances Duran AUD [facility] [place] [address] Dizziness; Sensorineural hearing loss (SNHL) of left ear with unrestricted hearing of right ear Social History Tobacco Use Types Packs/Day Years Used Date Smoking Tobacco: Never Smokeless Tobacco: Never Alcohol Use Standard Drinks/Week Comments No 0 (1 standard drink = 0.6 oz pur e alcohol) Sex and Gender Information Value Date Recorded Sex Assigned at Not on file Gender Identity Not on file Sexual Orientation Not on file documented as of this encounter Progress Notes * Frances Duran, AUD - 01/16/2021 1:00 PM EST AUDIOLOGY SECTION [place], [place] VIDEONYSTAGMOGRAPHY AND AUDIOLOGIC EVALUATION 01/16/2021 PPE used during visit: Goggles, Level 2 mask BACKGROUND Miya Merritt, age 30 y.o., was referred for the present testing as part of a comprehensive dizziness evaluation by Dr. Arie Hunter, ENT/Blayne Terry PA-C of [facility] Ot[facility]. She has a history of lightheadedness, tachycardia, dizziness, headache, neck pain and a feelingthat she will pass out. Her dizziness and lightheadedness symptoms began in August 2020. She was seenby a primary care provider (TRISHA Robbins instead of Nadja Doan APRN) who prescribed meclizine. She felt the Meclizine made her tired but didn't improve her symptoms. She was evaluated in the ED for worsening symptoms on 10/23/2020. Tachycardia was noted in the ED with orthostatic vitals taken while supine (98bpm) with a significant increase to 131 bmp upon standing. Imaging during theED visit revealed cysts in the sinuses and fracture of the left ulnar styloid process. She was referred to ENT and was evaluated in October 2020. He suspected that her symptoms could be related to vestibular migraine and that BPPV or hydrops were not likely. It was unclear at the time if the dizziness was of peripheral or central origin. A hearing test was conducted as part of the ENT work up, however the report/faxed copy could not be easily read by this examiner. The SRTs were 10 dB on the right and 20 dB on the left. There may have been a slight asymmetry with the left ear poorer. A request was sent by a ENT dairy husbandry worker for a clearer copy of the audiogram in October but was never received. Today, she reported that symptoms are still present a good amount of time though it may not be asbad as it was a few months ago. The frequency of symptoms over the summer was few times a day. Now it's a few times a week. The duration can vary, but it can last for a few minutes. Before, she had to lay down to make things better. Her partner, who accompanied her to today's visit, reported that sometime he has to help her lay down. She denied fluctuating hearing loss or history of noise exposure. Her mother has hearing loss as an older adult. She denied any known congenital/genetic hearing loss in her family. Interestingly, she experienced a significant episode of tachycardia bringing her to the ED about four years ago. It was not accompanied by dizziness or lightheadedness like these more recent months. She reportedly wore a 48 hour Holter monitor ordered by a provider at the ED at that time. She was supposed to have an echocardiogram but it never happened due to insurance issues/was never followed up. She has monitored her heart rate at home over time. She stated that her resting heart rate on herwatch records in the 90s. With this more recent onset of dizziness, she reported that she has been going through (and continues to go through) stressful lifestyle changes. She reported that she didn't receive the pre-VNG instructions. She takes an allergy medication. Shehasn't used Meclizine in weeks. AUDIOLOGIC EVALUATION (please refer to audiogram) Testing was completed by Reva Waite MS, doctoral teacher, under direct supervision of Noel Soares, clinical Image Processing Engineer. Otoscopic inspection confirmed that the ear canals were free of excess cerumen and that the tympanic membranes were intact. Tympanometry revealed normal TM mobility and very borderline negative pressure (-102 daPa) on the right. Reduced TM mobility on the left with normal middle ear pressure. Pure tone testing revealed asymmetric hearing thresholds with the left ear poorer than the right across all frequencies (250-8000 Hz) by 10-15 dB. The right ear demonstrated normal hearing across all frequencies, though sensitivity was poorer in the low frequencies within the range of normal. A mild low frequency sensorineural hearing loss was measured on the left, rising to normal hearing through 8000Hz. VIDEONYSTAGMOGRAPHY (VNG) RESULTS: Binocular horizontal and vertical recordings were obtained under infared oculography. Horizontal and vertical calibrations were normometric. There was no evidence of disconjugate eye movement. Miya Merritt was cooperative throughout the procedure and focused her attention on the distracter tasks given to her. Pre-VNG Bedside Exam Neck range of motion appeared within gross normal limits. Eye movements were grossly intact; there was no spontaneous nystagmus evidenced in room light. Test Result Subjective Symptoms High frequency Headshake Negative Dizziness Tests of Ocular Control: Tests of ocular control were normal. Normal saccade latency, velocity, and accuracy were observed. Smooth pursuit was essentially normal to the right and left. Optokinetic tracking (OPK) was normal and symmetrical to the right and left at 20??/sec and 40??/sec. Test Result Notes Sinusoidal Tracking (Smooth Pursuit) WNL Saccades WNL Optokinetic tracking (OPK) 20??/second WNL Optokinetic tracking (OKP) 40??/second WNL Gaze (center/spontaneous) WNL Gaze (right) WNL Gaze (left) WNL Gaze (up) WNL Positional/Positioning Testing: Position Nystagmus ??/second Subjective Symptoms Modified [place] Hallpike Right Negative Denied Modified [place] Hallpike Left Negative Feeling a little spinny coming back up Supine Negative Denied Supine Head Right Negative Denied Supine Head Left Negative Denied Side Right Negative Denied Side Left Negative Denied Note: Square waves noted throughout testing in all vision denied conditions (about 30 or less per minute). No enhancement when fixation light present. Bithermal Caloric Testing: Results of bithermal (air) caloric irrigations were as follows: Right ear, warm: 7??/second Right ear, cool: 5??/second Left ear,warm: 7??/second Left ear, cool: 7??/second Unilateral weakness: 8% to the right Directional preponderance: 8% to the right No failure of fixation suppression was noted. IMPRESSIONS: Normal VNG. Testing of the peripheral vestibular systems did not reveal evidence of spontaneous, gaze, or head-shaking nystagmus. No evidence of BPPV. Caloric evoked nystagmus was fairly symmetrical in both ears, indicating normal functioning of the lateral semi-circular canals and superior vestibular nerves. Responses were not robust for either ear with total slow phase eye velocity of all four irrigations at 25??/second, but clinically normal. Ocular motor studies of pursuit and saccades which are considered sensitive to central vestibular pathway compromise were unremarkable. Saccadic intrusions (square-wave jerks) were observed throughout VNG testing with normal/average frequency. RECOMMENDATION 1. Follow up per Dr. Hunter/Blayne Terry PA-C given normal VNG testing today. 2. Defer to ENT/PCP to consider referral to Electrophysiology for further work up of longstanding tachycardia to rule out Dysautonomia such as Inappropriate Sinus Tachycardia (IST) and/or Postural Orthostatic Tachycardia Syndrome (POTS) with greater that 30 dB increase in heart rate from supine to standing noted in the ED. Could also consider Neurology evaluation. 3. Audiologic re-evaluation in one year to monitor asymmetric thresholds. Discussed that should sheever experience a sudden hearing loss, to return to the clinic for immediate re-evaluation. Zeenat Soares Clinical Image Processing Engineer [facility] [phone] documented in this encounter Plan of Treatment Not on file documented as of this encounter Procedures Procedure Name Priority Date/Time Associated Diagnosis Comments COMPREHENSIVE HEARING TEST Routine 01/16/2021 12:59 PM EST documented in this encounter Results * Comprehensive hearing test (01/16/2021 12:59 PM EST) 01/16/2021 12:5 9 PM EST Narrative AUDBASE COMP - 01/16/2021 12:59 PM EST See VNG report. Recorded MEEI. Borderline negative pressure AD. Procedure Note Unknown - 01/16/2021 See VNG report. Recorded MEEI. Borderline negative pressure AD. Unknown AUDIOLOGY SERVICES [facility] AUD[facility] documented in this encounter Visit Diagnoses Diagnosis Dizziness Dizziness and giddiness Sensorineural hearing loss (SNHL) of left ear with unrestricted hearing of right ear documented in this encounter Care Teams Older Worker Specialist Relationship Specialty Start Date End Date Nadja Doan, SENIOR LOAN PROCESSOR [address] [place] [address] PCP - General Family Medicine 11/19/20 11/20/22 documented as of this encounter
--- OUTSIDE RECORDS SUMMARY | 2023-10-31 10:23 | XMS_ITS | Encounter Summary ---
Author Organization [facility] Address [facility] [place] [address] Care Team Providers Care Orthotic Aide Name Role Phone Hieu Lombardi DNP Primary Care Provider [phone] Reason for Visit * Consultation (Routine) - Closed Specialty Diagnoses / Procedures Referred By Contac t Referred To Contact Cardiology Diagnoses POTS (postural orthostatic tachycardia syndrome) Asthma, unspecified asthma severity, unspecified whether complicated, unspecified whether persistent POTS - cannot tolerate BB's, has uncontrolled asthma, on Dupixent, Trelegy, montelukast, may switch to Xolair per Pulm. Was on BB very briefly, made asthma worse. Hieu Lombardi, XOCHILT [address] [place] [address] [facility] [address] [place] [phone] Referral ID Status Reason Start Date Expiration Date V isits Requested Visits Authorized [id number] Closed Consult, Test & Treat 12/23/2022 12/23/2023 1 1 Encounter Details Date Type Department Care Team (Late st Contact Info) Description 02/25/2023 10:00 AM EST Office Visit Cardiology at [address] [phone] Tirso Luna PA [facility] [place] [address] Tachycardia Social History Tobacco Use Types Packs/Day [...] Sign Reading Time Taken Comments Blood Pressure 144/96 02/25/2023 9:46 AM EST Pulse 113 02/25/2023 9:46 AM EST Temperature - - Respiratory Rate - - Oxygen Saturation 100% 02/25/2023 9:46 AM EST Inhaled Oxygen Concentration - - Weight 77.6 kg (171 lb) 02/25/2023 9:46 AM EST Height 165.1 cm (5' 5) 02/25/2023 9:46 AM EST Body Mass Index 28.46 02/25/2023 9:46 AM EST documented in this encounter Patient Instructions * Patient Instructions* Tirso Luna PA - 02/25/2023 10:00 AM EST Start diltiazem 120mg daily for BP control. We also have some effect on HR. As needed follow-up. documented in this encounter Progress Notes * Tirso Luna PA - 02/25/2023 10:00 AM EST Images from the original note were not included. [facility] [place] [phone] CARDIOVASCULAR MEDICINE OUTPATIENT VISIT Miya Merritt [id number] 02/25/2023 REFERRING PROVIDER: Hieu Lombardi PROBLEM LIST: Patient Active Problem List Diagnosis labor History of premature delivery, currently , third trimester Dizziness Tachycardia Previous delivery affecting , antepartum Lower urinary tract infectious disease HISTORY OF PRESENT ILLNESS: Miya Merritt is a 32 y.o. female returns to cardiology office forfollow-up of POTS. History significant for asthma, longstanding tachycardia (worse with standing) she has had prior EDvisits and evaluation neurology. Last visit 05/20/[address] Cristina and tactical response group officer Dr. Rowe. Zio patch was ordered. 06/13/2021 Zio patch results reviewed over the phone no malignant arrhythmias. Sinus tachycardia with average 107bpm, in setting of and POTS. Reportedly cannot tolerate BB's, has uncontrolled asthma, on Dupixent, Trelegy, montelukast. Was onBB very briefly, made asthma worse. Present daughter Lilia (17 mo) and mother zain. She also has 13 and 7 year old. 11/2022 ED [facility] visit for palpitations and treated for pna. At time, c/o heart beating hard with skipped and took breath away. PCP ordered 48 hour holter perfomred 01/2023 and was benign. She is following w/ neurology Dr. Sherwood in [place], [place] for tingling of hands, feet and lips as well as migraines which lasting longer duration with most recent last 1 month. Office letteris not available. H/o migraines since childhood. On gabapentin and amytriptyline. Head scan appeared ok. She questioned if migraines related to POTs. Occassional orthostatic dizziness though minimal for most part. SOB worse occurring w/ minimal activity. Sharp/tight chest pain noted every couple days with or without activity occurring intermittently throughout those days lasting 1-2 minutes at time assoc w/ palps. Pulm recommended prednisone w/ taper which she will start tomorrow. 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 2 cans soda daily. Stays hydrated. Sleep study pending next wk. REVIEW OF SYSTEMS: Review of Systems Constitutional: Positive for fatigue. Respiratory: Positive for shortness of breath. Cardiovascular: Positive for chest pain and palpitations. Negative for leg swelling. Neurological: Positive for dizziness. Negative for syncope. All other systems reviewed and are negative. PAST MEDICAL HISTORY: Past Medical History: Diagnosis Date Asthma Mastitis POTS (postural orthostatic tachycardia syndrome) SOCIAL HISTORY: Social History Tobacco Use Smoking status: Never Smokeless tobacco: Never Substance Use Topics Alcohol use: No Alcohol/week: 0.0 standard drinks of alcohol MEDICATIONS: Outpatient Medications Marked as Taking for the 02/25/23 encounter (Office Visit) with Leeanne Luna PA Medication Sig Dispense Refill albuteroL (Ventolin HFA) [...] Tablet Take 10 mg by mouth nightly. ALLERGIES: Vancomycin, Symbicort [budesonide-formoterol], Adhesive, Banana, Cat dander, Dog dander, Formoterol, House dust mite, [place], Peaches [stone fruit], and Tegaderm [transparent dressings] PHYSICAL EXAMINATION: Vital Signs: BP (!) 144/96 Pulse (!) 113 Ht 165.1 cm (5' 5) Wt 77.6 kg (171 lb) SpO2 100% BMI 28.46 kg/m?? Orthostatic v/s: supine 138/98, hr 101. Seated 130/100, hr 104. Standing 134/100, hr 114 bpm. Exam Details: General: Pleasant female in no acute distress. HEENT: No scleral icterus, moist mucous membranes. Neck: JVP <8 cm of water. No carotid bruits appreciated. Heart: Regular rate and rhythm, normal S1/S2, no murmurs/rubs/gallops appreciated, PMI non-displaced. Lungs: Clear to ascultation bilaterally Abdomen: Soft, non-tender, non-distended, normoactive bowel sounds noted. Extremities: No peripheral edema noted. No ulcerations noted. Distal pulses intact. Skin: Warm and well perfused. No visible lesions or rashes. Neuro: No gross abnormalities noted. Psych: Alert and oriented 3 x, normal affect DATA PERSONALLY REVIEWED: Last 3 wbc, hgb, hct plt No results for input(s): WBC, HGB, HCT, PLATELET in the last 7068 hours. Last 3 Lytes No results for input(s): NA, K, CL, CO2, BUN, CREATININE in the last 7068 hours. Lipid Panel Holter 48 hr 01/2023 Zio patch 04/2021 1. Predominant Rhythm: Sinus tachycardia with an average rate of 106 bpm and a range of 67 to 169 bpm 2. Relatively rare PACs and PVCs ASSESSMENT AND PLAN: #POTs #HTN, uncontrolled, mildly elevated #SOB #Asthma soon to start prednisone with taper #atypical chest pain #Migraines 32 y.o. female with above conditions seen for office follow-up following recent [facility] ED visit for palpitations in setting of pna and likely asthma flare. Follow-up Holter monitor was benign. Her POTSdoes not appear to be worsening based on vital signs today which do not meet criteria for POTS. I do not suspect worsening POTS is contributing to her migraine or peripheral paresthesias which is being evaluated by neurology. Her blood pressure remains uncontrolled and is mildly elevated today. -Start diltiazem CD120 mg daily for BP control and will also have some heart rate controlling effects and suppression of palpitations. - I do not feel that beta-blockers need to be reattempted at this time given minimal POTS related symptoms and risks with asthma history. -Reviewed the importance of remaining hydrated and maintaining routine aerobic activity along with efforts for increasing core strength. -Follow up as needed. Thank you for allowing me to participate in the care of your patient. Please do not hesitate to contact me with any questions or concerns. Tirso Luna [place] [address] Patient Instructions Start diltiazem 120mg daily for BP control. We also have some effect on HR. As needed follow-up. documented in this encounter Plan of Treatment Not on file documented as of this encounter Visit Diagnoses Diagnosis Tachycardia Tachycardia, unspecified documented in this encounter Care Teams Orthotic Aide Relationship Specialty Start Date End Date Hieu Lombardi DNP [address] [place] [address] PCP - General Family Medicine 11/21/22 documented as of this encounter
--- OUTSIDE RECORDS SUMMARY | 2023-10-31 10:23 | XMS_ITS | Encounter Summary ---
Author Organization [facility] Address [address] [place] [address] Care Team Providers Care Health And Safety Inspector Name Role Phone Butch Yanes MD Primary Care Provider Reason for Visit * Reason Comments Laboring labor / ye ast infection Encounter Details Date Type Department Care Team (Late st Contact Info) Description 05/24/2009 20:37 EDT - 06/08/2009 14:25 EDT Hospital Encounter [facility] Mother/Baby Unit [address] [place] [address] Itzel Deleon MD [address] [place] [address], [facility] [address] [place] [address] Justin Winston MD Discharge Disposition: Home or Self Care Social History Tobacco Use Types Packs/Day Years [...] EDT Body Mass Index 26.13 05/24/20092039 EDT documented in this encounter Discharge Summaries * Cara Clark - 05/29/20091999 EDT Discharge Summary Chief Complaint/Reason for Admission: ctxs Principal/Final Diagnosis: labor Condition at Discharge: Good Assessment at Discharge: Vital signs: Patient Vitals in the past 12 hrs: BP Temp Temp src Pulse Resp SpO2 Height Wt - Scale 06/08/09 0845 97/49 mmHg 36.7 ??C (98.1 ??F) Temporal 100 18 99 % - - 06/08/09 0030 102/63 mmHg 36.9 ??C (98.4 ??F) Temporal 104 18 99 % - - Hospital Course: 19 y/o admitted at 32+6 for PTL. The patient was transferred from [facility] ([facility]) after worsening back pain and RLQ waxing and waning pain. At OSH, patient was sam Q1-1.5 minutes, and changed SVE from 1cm/thick to 2-3cm/75. She had no vaginal bl eeding. Upon admission to [facility], SVE showed 4/75. Contraction pattern was concerning for abruption, although the patient had no vaginal bleeding and KB was negative. She received 2 doses of BMZ (05/24-05/25). Contractions stopped and she remained 4/75 x 3, so she was transferred to [facility]. She was not tocolyzed. Of note, the patient had unexplained tachycardia for the past 2.5 months, and had an ECG on admission that was initially concerning for prolonged QT. Repeat ECG on 05/28 was reviewed with bosom presser, Nathaly, who found no evidence of prolonged QT. Tachycardia resolved. TSH, T4 were normal. The patient was treated for two days with oral Metronidazole for BV on wet prep. The medication wasdiscontinued as she was asymptomatic. Discussion with CNM at [facility] revealed that patient cannot be transferred back until 35 weeks, and she remained inpatient at [facility] until that time. Her cervix was re-checked on 06/07, and exam showed 4cm/80%. She was d/c'd home on 06/08/09 in good condition. Relevant Studies at Discharge: none Last Lab Results at Discharge: CBC: Lab Results Component Value Date/Time ??? WBC 14.81 05/24/09 9:06 PM ??? RBC 3.89 05/24/09 9:06 PM ??? HGB 11.0 05/24/09 9:06 PM ??? HCT 31.9 05/24/09 9:06 PM ??? MCV 82 05/24/09 9:06 PM ??? MCH 28.2 05/24/09 9:06 PM ??? MCHC 34.3 05/24/09 9:06 PM ??? PLT 181 05/24/09 9:06 PM cc: MD Kadie MEHTA Braggs Discharge Summary Completed: 06/08/09 documented in this encounter Discharge Instructions * Discharge Instructions* Cara Clakr - 06/08/2009 13:29 EDT Discharge Instructions L&D Call your provider if: ?? Your water breaks There's any bright red bleeding Your are not feeling the baby move Severe headaches and/or blurry vision Contractions are closer together and/or stronger, or you are having constant pain Medications: ?? Continue any present medication Activity: ?? Drink plenty of fluids and eat well As tolerated, lie on your left side while resting/napping Extra rest until you feel better Call Provider's Office For: ?? Test results To schedule tests/or appointments CARA CLARK MD 06/08/2009 1:28 PM documented in this encounter Medications at Time of Discharge Medication Sig Dispensed Refills Start Date End Date VITS W-CA,FE,FA,<1MG, ( #2 ORAL) Take 1 Tab by mouth daily. documented as of this encounter Discharge Disposition Disposition Code Departure Means Destination Home or Self Care documented in this encounter Progress Notes * Inpatient, Physician - 06/15/2009 1307 EDT * Inpatient, Physician - 06/13/2009 1442 EDT * Radha Emmanuel. - 06/08/2009 1216 EDT 06/08/09(1200) Dr. Clark notified about strip and pt having some irregular contractions. Dr. Clark stated she didn't need to come see strip and that pt has been having irregular contractions. She stated pt is ok to go home. * Essence Bravo - 06/08/2009 0916 EDT S: No c/o ctxs, LOF, VB. +FM. O: BP 97/49 Pulse 100 Temp(Src) 36.7 ??C (98.1 ??F) (Temporal) Resp 18 Ht 1.651 m (5' 5) Wt 71.215 kg (157 lb) SpO2 99% LMP OB (ZITA:07/13/09) Gen: NAD CV: RRR Resp: CTAB Abd: Soft, no uterine tenderness Ext: NT SVE yesterday A/P: 19 y/o @ 35+0 with PTL, stable. HD 16. 1. PTL--stable. D/c home today. Will call [facility] 2. FWB--AGA. S/p BMZ x2 (05/24-). 3. Labor precautions discussed for home Attending Physician Addendum - met with patient, reviewed care, discussed with resident team. Patient now at 35w, stable, ready for discharge. Patient will follow-up with CNM group at [facility] in the next week. Agree with plans. Haroldo Bravo MD ([facility]) * Shayna Samuels - 06/08/2009 0707 EDT Medical Student Progress Note S: No contractions, LOF, VB. Tolerating regular diet, +BM. No trouble with urination. No F/C, CP/SOB. The patient is feeling excited to return home today. O: BP 102/63 Pulse 104 Temp(Src) 36.9 ??C (98.4 ??F) (Temporal) Resp 18 Ht 1.651 m (5' 5) Wt 71.215 kg (157 lb) SpO2 99% LMP OB (ZITA:07/13/09) Gen: alert, NAD Pulm: clear to auscultation bilaterally CV: RRR Abd: soft, gravid, non-tender Extr: no lower extremity edema bilaterally A/P: The patient is a 19 year old @ 35+0 with PTL, initially concerning for abruption, now stable. 1. PTL: stable, asymptomatic, x3 exams on 05/25, on 06/07. Negative KB on 05/25. Patient to be discharged to [facility] today. 2. FWB: AGA, s/p BMZ (second dose at 17:30 on 05/25/09) 3. Tachycardia: resolved; TSH, T4 nl on 05/25 4. Dispo: discharge home today Shayna Samuels MS4 X 1370 * Essence Bravo - 06/07/2009 0712 EDT S: No c/o ctxs, LOF, VB. +FM. O: BP 120/66 Pulse 100 Temp(Src) 36.2 ??C (97.2 ??F) (Temporal) Resp 18 Ht 1.651 m (5' 5) Wt 69.128 kg (152 lb 6.4 oz) SpO2 100% LMP OB (ZITA:07/13/09) Gen: NAD CV: RRR Resp: CTAB Abd: Soft, no uterine tenderness Ext: NT A/P: 19 y/o @ 34+6 with PTL, stable. HD 15. 1. PTL--stable. Plan to d/c to [facility] at 35 weeks. Will check cervix this afternoon 2. FWB--AGA. S/p BMZ x2 (05/24-). NST daily Addendum by Attending physician - met with patient, reviewed care, discussed with resident team. Patient doing well, no complaints at this time. Will repeat pelvic (cervical) exam later today, plan to discharge tomorrow if stable. Haroldo Bravo MD * Shayna Samuels - 06/07/2009 0708 EDT Medical Student Progress Note S: Patient reports that she is feeling well. No contractions, LOF, VB. Tolerating regular diet, +BM. No trouble with urination. No F/C, CP/SOB. Discussed that we will return today to re-check her cervix in preparation for discharge tomorrow. O: BP 120/66 Pulse 100 Temp(Src) 36.2 ??C (97.2 ??F) (Temporal) Resp 18 Ht 1.651 m (5' 5) Wt 69.128 kg (152 lb 6.4 oz) SpO2 100% LMP OB (ZITA:07/13/09) Gen: alert, NAD Pulm: clear to auscultation bilaterally CV: RRR Abd: soft, gravid, non-tender Extr: no lower extremity edema bilaterally A/P: The patient is a 19 year old @ 34+6 with PTL, initially concerning for abruption, now stable. 1. PTL: stable, asymptomatic, 4/70x3 exams on 05/25, unchanged on 05/26. Negative KB on 05/25. Patient oninpatient bedrest with SCDs. 2. FWB: AGA, s/p BMZ (second dose at 17:30 on 05/25/09) 3. Tachycardia: resolved; TSH, T4 nl on 05/25 4. Dispo: will discharge tomorrow at 35 weeks. Shayna Samuels MS4 X 1370 * Essence Bravo - 06/06/2009 0707 EDT S: No c/o ctxs, LOF, VB. +FM. O: BP 102/58 Pulse 100 Temp(Src) 36.3 ??C (97.3 ??F) (Temporal) Resp 18 Ht 1.651 m (5' 5) Wt 69.128 kg (152 lb 6.4 oz) SpO2 97% LMP OB (ZITA:07/13/09) Gen: NAD CV: RRR Resp: CTAB Abd: Soft, no uterine tenderness Ext: NT A/P: 19 y/o @ 34+5 with PTL, stable. HD 14. 1. PTL--stable. Plan to d/c to [facility] at 35 weeks if no further PTL. Will recheck cervix tomorrow. 2. FWB--AGA. S/p BMZ x2 (). NST daily Addendum by Attending Physician - met with patient, reviewed care, discussed with resident team. Agree with assessment and plan for this patient. Haroldo Bravo MD * Essence Bravo - 06/05/2009 0647 EDT S: No c/o ctxs, LOF, VB. +FM. O: BP 117/67 Pulse 96 Temp(Src) 36.3 ??C (97.3 ??F) (Tympanic) Resp 18 Ht 1.651 m (5' 5) Wt 69.128 kg (152 lb 6.4 oz) SpO2 98% LMP OB (ZITA:07/13/09) Gen: NAD CV: RRR Resp: CTAB Abd: Soft, no uterine tenderness Ext: NT A/P: 19 y/o @ 34+4 with PTL, stable. HD 13. 1. PTL--stable. Plan to d/c to [facility] at 35 weeks if no further PTL. Will recheck cervix prior to d/c. 2. FWB--AGA. S/p BMZ x2 (). NST daily Addendum by [facility] Attending: I met with patient and discussed care. Also discussed with resident team, agree with assessment andplan. Will likely re-check cervix on 06/07, if stable, likely discharge at 35w 0d. Haroldo Bravo MD * Shayna Samuels - 06/05/2009 0629 EDT Medical Student Progress Note S: Patient reports that she is feeling well. Was able to walk to the kitchen to get her own drinks yesterday, and is being compliant with resting in between. No contractions, LOF, VB. Tolerating regular diet, +BM. No trouble with urination. No F/C, CP/SOB. Discussed that we will re-check her cervixon in preparation for discharge on Thursday. O: Blood pressure 117/67, pulse 96, temperature 36.3 ??C (97.3 ??F), temperature source Tympanic, resp. rate 18, height 1.651 m (5' 5), weight 69.128 kg (152 lb 6.4 oz), last menstrual period OB (ZITA:07/13/09), SpO2 98%. Gen: alert, NAD Pulm: clear to auscultation bilaterally CV: RRR Abd: soft, gravid, non-tender Extr: no lower extremity edema bilaterally A/P: The patient is a 19 year old @ 34+4 with PTL, initially concerning for abruption, now stable. 1. PTL: stable, asymptomatic, 4/70x3 exams on 05/25, unchanged on 05/26. Negative KB on 05/25. Patient tostay inpatient on bedrest with SCDs. After discussion with CNM at [facility], patient will stay at [facility] until 35 weeks 2. FWB: AGA, s/p BMZ (second dose at 17:30 on 05/25/09), reactive NST on 06/04 3. Tachycardia: resolved; TSH, T4 nl on 05/25 Shayna Samuels MS4 X 1370 * Essence Bravo - 06/04/2009 0659 EDT Medical Student Progress Note S: No contractions, LOF, VB. Tolerating regular diet, +BM. No trouble with urination. No F/C, CP/SOB. O: BP 112/58 Pulse 95 Temp(Src) 36.4 ??C (97.5 ??F) (Temporal) Resp 18 Ht 1.651 m (5' 5) Wt 69.128 kg (152 lb 6.4 oz) SpO2 98% LMP OB (ZITA:07/13/09) Gen: alert, NAD Pulm: clear to auscultation bilaterally CV: RRR Abd: soft, gravid, non-tender Extr: no lower extremity edema bilaterally A/P: The patient is a 19 year old @ 34+3 with PTL, initially concerning for abruption, now stable. 1. PTL: stable, asymptomatic, 4/70x3 exams on 05/25, unchanged on 05/26. Negative KB on 05/25. Patient tostay inpatient on bedrest with SCDs. After discussion with CNM at [facility], patient will stay at [facility] until 35 weeks 2. FWB: AGA, s/p BMZ (second dose at 17:30 on 05/25/09), reactive NST on 05/31 3. Tachycardia: improved/resolved; TSH, T4 nl on 05/25 Shayna Samuels MS4 X 1370 Attestation statement: I saw and examined the patient. I agree with the findings and plan of care documented in the resident's/fellow's note. I was present during the entire procedure. GLORIA Cheatham Attending Physician * DaltonCara - 06/04/2009 0656 EDT S: No c/o ctxs, LOF, VB. +FM. O: BP 112/58 Pulse 95 Temp(Src) 36.4 ??C (97.5 ??F) (Temporal) Resp 18 Ht 1.651 m (5' 5) Wt 69.128 kg (152 lb 6.4 oz) SpO2 98% LMP OB (ZITA:07/13/09) Gen: NAD CV: RRR Resp: CTAB Abd: Soft, no uterine tenderness Ext: NT A/P: 19 y/o @ 34+3 with PTL, stable. HD 12. 1. PTL--stable. Plan to d/c to [facility] at 35 weeks if no further PTL. Venos. 2. FWB--AGA. S/p BMZ x2 (). NST daily * Letha Connors MD - 06/03/2009 0552 EDT Cc: PTL S: No ctxs, LOF, VB. +FM. O: BP 102/58 Pulse 96 Temp(Src) 36.5 ??C (97.7 ??F) (Temporal) Resp 18 Ht 1.651 m (5' 5) Wt 69.128 kg (152 lb 6.4 oz) SpO2 99% LMP OB (ZITA:07/13/09) Gen: NAD CV: RRR Resp: CTAB Abd: Soft, no uterine tenderness, ND +BS Ext: NT A/P: 19 y/o @ 34+2 with PTL, stable. HD 11. 1. PTL--stable. Plan to d/c to [facility] at 35 weeks if no further PTL. Venos. 2. FWB--AGA. S/p BMZ x2 (). NST daily MARTINA CULVER MD Attending Note: Pt seen. Comfortable, no ctx's in 24 hrs. Agree with note as written above. Letha Connors MD * Yodit Magana - 06/02/2009 1651 EDT NST repeated. Reactive c + accels, - decels. 2, possible 3 ctx noted, not felt by pt. Resting tone PS. * Comfort Solis MD - 06/02/2009 0786 EDT S: No c/o ctxs, LOF, VB. +FM. O: BP 90/54 Pulse 98 Temp(Src) 36.4 ??C (97.5 ??F) (Temporal) Resp 16 Ht 1.651 m (5' 5) Wt 69.128 kg (152 lb 6.4 oz) SpO2 99% LMP OB (ZITA:07/13/09) Gen: NAD CV: RRR Resp: CTAB Abd: Soft, no uterine tenderness Ext: NT A/P: 19 y/o @ 34+1 with PTL, stable. HD 10. 1. PTL--stable. Plan to d/c to [facility] at 35 weeks if no further PTL. Venos. 2. FWB--AGA. S/p BMZ x2 (). NST daily Attestation statement: I saw and examined the patient. I agree with the findings and plan of care documented in the resident's/fellow's note. I was present during the entire procedure.Comfort Solis MD * Katlyn Valentin MD - 06/01/2009 0716 EDT S: No c/o ctxs, LOF, VB. +FM. O: BP 99/54 Pulse 100 Temp(Src) 36.5 ??C (97.7 ??F) (Temporal) Resp 16 Ht 1.651 m (5' 5) Wt 69.128 kg (152 lb 6.4 oz) SpO2 97% LMP OB (ZITA:07/13/09) Gen: NAD CV: RRR Resp: CTAB Abd: Soft, no uterine tenderness Ext: NT A/P: 19 y/o @ 34+0 with PTL, stable. HD 9. 1. PTL--stable. Plan to d/c to [facility] at 35 weeks if no further PTL. Venos. 2. FWB--AGA. S/p BMZ x2 (). NST daily MFM Attending : I saw and examined the patient and discussed findings with the residents . I agree with the above assessment and plan of care. * Shayna Samuels - 06/01/2009 0636 EDT Medical Student Progress Note S: No contractions, LOF, VB. Tolerating regular diet, +BM. No trouble with urination. No F/C, CP/SOB. O: BP 99/54 Pulse 100 Temp(Src) 36.5 ??C (97.7 ??F) (Temporal) Resp 16 Ht 1.651 m (5' 5) Wt 69.128 kg (152 lb 6.4 oz) SpO2 97% LMP OB (ZITA:07/13/09) Gen: alert, NAD Pulm: clear to auscultation bilaterally CV: RRR Abd: soft, gravid, non-tender Extr: no lower extremity edema bilaterally, SCDs not in place (patient wore them for half the night) A/P: The patient is a 19 year old @ 34+0 with PTL, initially concerning for abruption, now stable. 1. PTL: stable, asymptomatic, 4/70x3 exams on 05/25, unchanged on 05/26. Negative KB on 05/25. Patient tostay inpatient on bedrest with SCDs. After discussion with CNM at [facility], patient will stay at [facility] until 35 weeks 2. FWB: AGA, s/p BMZ (second dose at 17:30 on 05/25/09), reactive NST on 05/31 3. Tachycardia: improved/resolved; TSH, T4 nl on 05/25 Shayna Samuels MS4 X 1370 * Ijeoma Sanabria MD - 05/31/2009 0653 EDT S: No c/o ctxs, LOF, VB. +FM. No palpitations, no CP/SOB. O: BP 90/54 Pulse 105 Temp(Src) 36.3 ??C (97.3 ??F) (Temporal) Resp 16 Ht 1.651 m (5' 5) Wt 69.128 kg (152 lb 6.4 oz) SpO2 97% LMP OB (ZITA:07/13/09) Gen: NAD CV: RRR Resp: CTAB Abd: Soft, no uterine tenderness Ext: NT A/P: 19 y/o @ 33+6 with PTL, stable. HD 8. 1. PTL--stable for 1 week. Plan to d/c to [facility] at 35 weeks if no further PTL. Venos. 2. FWB--AGA. S/p BMZ x2 (05/24-). NST daily MFMS Attending I saw and examined patient. I agree with the the impression and plan as noted above. Ijeoma Sanabria MD * Shayna Samuels - 05/31/2009 0636 EDT Medical Student Progress Note S: No contractions, LOF, VB. Aware that she will be staying until 35 weeks. Tolerating regular diet, +BM. No trouble with urination. No F/C, CP/SOB. O:BP 90/54 Pulse 105 Temp(Src) 36.3 ??C (97.3 ??F) (Temporal) Resp 16 Ht 1.651 m (5' 5) Wt 69.128 kg (152 lb 6.4 oz) SpO2 97% LMP OB (ZITA:07/13/09) Gen: alert, NAD Pulm: clear to auscultation bilaterally CV: RRR Abd: soft, gravid, non-tender Extr: no lower extremity edema bilaterally A/P: The patient is a 19 year old @ 33+6 with PTL, initially concerning for abruption, now stable. 1. PTL: stable, asymptomatic, /x3 exams on 05/25, unchanged on 05/26. Negative KB on 05/25. Patient tostay inpatient on bedrest with SCDs. After discussion with CNM at [facility], patient will stay at [facility] until 35 weeks 2. FWB: AGA, s/p BMZ (second dose at 17:30 on 05/25/09), reactive NST on 05/30 3. Tachycardia: improved/resolved; TSH, T4 nl on 05/25 Shayna Samuels MS4 X 1370 * Ijeoma Sanabria MD - 05/30/200977 EDT S: No c/o ctxs, LOF, VB. +FM. No palpitations, no CP/SOB. O: BP 90/55 Pulse 96 Temp(Src) 36.5 ??C (97.7 ??F) (Temporal) Resp 18 Ht 1.651 m (5' 5) Wt 68.04 kg (150 lb) SpO2 97% LMP OB (ZITA:07/13/09) Gen: NAD CV: RRR Resp: CTAB Abd: Soft, no uterine tenderness Ext: NT A/P: 19 y/o @ 33+5 with PTL, stable. HD 7. 1. PTL--Pt stable, no further cervical change. Last exam --will re-discuss with [facility] today whether she can be discharged on Thursday (34 vs 35 weeks). 2. FWB--AGA. S/p BMZ x2 (05/24-) 3. ?prolonged QT--repeat EKG no prolonged QT per cards. MFMS Attending I saw and examined patient. I agree with the the impression and plan as noted above. I spoke with CNM yesterday; can not take until 35 weeks; they were concerned about prolonged qt, discussed yest that I through dx unlikely, now there is confirmation this is not a clinically relevenmt issue. Plan: Hospt to 35 weeks with d/c to home in [facility] at that time Ijeoma Sanabria MD * Shayna Samuels - 05/30/2009 0704 EDT Medical Student Progress Note S: Patient feels well. Not feeling contractions. No back pain. No LOF, no VB. movement is present. Tolerating regular diet, +BM. No trouble with urination, no itching or burning in the vaginal area. No F/C, CP/SOB. Discussed with patient that there was no evidence of prolonged QT when ECG wasreviewed with bosom presser yesterday. O:BP 90/55 Pulse 96 Temp(Src) 36.5 ??C (97.7 ??F) (Temporal) Resp 18 Ht 1.651 m (5' 5) Wt 68.04 kg (150 lb) SpO2 97% LMP OB (ZITA:07/13/09) Gen: alert, NAD Pulm: clear to auscultation bilaterally CV: RRR Abd: soft, gravid, non-tender Extr: no lower extremity edema bilaterally A/P: The patient is a 19 year old @ 33+5 with PTL, initially concerning for abruption, now stable. 1. PTL: stable, asymptomatic, 4/70x3 exams on 05/25, unchanged on 05/26. Negative KB on 05/25. Patient tostay inpatient on bedrest with SCDs. Potential transfer back to [facility] at 34 weeks, will confirm absence of prolonged QT today with [facility]. 2. FWB: AGA, s/p BMZ (second dose at 17:30 on 05/25/09), reactive NST on 05/29 3. Tachycardia: improved/resolved; TSH, T4 nl on 05/25 4. Prolonged QT: repeat ECG reviewed with Cards Fellow (Tal) - no evidence of prolonged QT Shayna Samuels MS4 X 1370 * Amanda Sales - 05/29/2009 1402 EDT Spoke w/ bosom presser, Tal, who reviewed EKG and found no evidence of prolonged QT. * Ijeoma Sanabria MD - 05/29/2009 0850 EDT S: No c/o ctxs, LOF, VB. +FM. No palpitations, no CP/SOB. O: BP 98/54 Pulse 97 Temp(Src) 36.2 ??C (97.2 ??F) (Temporal) Resp 18 Ht 1.651 m (5' 5) Wt 68.04 kg (150 lb) SpO2 100% LMP OB (ZITA:07/13/09) Gen: NAD CV: RRR Resp: CTAB Abd: Soft, no uterine tenderness Ext: NT A/P: 19 y/o @ 33+4 with PTL, stable. HD 6. 1. PTL--Pt stable, no further cervical change. Last exam --continue inpatient bedrest, dispo depends on peds at [facility]. Will f/u today or tomorrow, whether they will accept delivery after 34 or 35 weeks. 2. FWB--AGA. S/p BMZ x2 (05/24-) 3. Tachycardia--resolved. Asymptomatic. TSH, T4 nl 4. Prolonged QT--asymptomatic, no fam h/o. --repeat EKG yesterday, suggested prolonged QT, but improved. Will show this to cardiology today. MFMS Attending I saw and examined patient. I agree with the the impression and plan as noted above. [facility] Will have cards assess ekg re:; if f/u indicatged. Ijeoma Sanabria MD * Arvind Shayna E - 05/29/2009 0623 EDT Medical Student Progress Note S: Patient feels well. Is not feeling any contractions. No back pain. No LOF, no VB. movementis present. Tolerating regular diet, +BM. No trouble with urination, no itching or burning in the vaginal area. No F/C, CP/SOB. Discussed with patient that we will be speaking with cardiology regarding her repeat ECG yesterday. O: BP 98/54 Pulse 97 Temp(Src) 36.2 ??C (97.2 ??F) (Temporal) Resp 18 Ht 1.651 m (5' 5) Wt 68.04 kg (150 lb) SpO2 99% LMP OB (ZITA:07/13/09) Gen: alert, NAD Pulm: clear to auscultation bilaterally CV: RRR Abd: soft, gravid, non-tender Extr: no lower extremity edema bilaterally A/P: The patient is a 19 year old @ 33+4 with PTL, initially concerning for abruption, now stable. 1. PTL: stable, asymptomatic, x3 exams on 05/25, unchanged on 05/26. Negative KB on 05/25. Patient tostay inpatient on bedrest with SCDs. Potential transfer back to [facility] at 34 weeks, in communication with Peds. 2. FWB: AGA, s/p BMZ (second dose at 17:30 on 05/25/09), reactive NST on 05/28 3. Tachycardia: improved/resolved; TSH, T4 nl on 05/25 4. Prolonged QT: asymptomatic; had repeat ECG on 05/28, will discuss with Cardiology today 5. BV: asymptomatic, d/c'd Metronidazole on 05/28 Shayna Samuels MS4 X 1370 * Frances Tafoya - 05/28/2009 2143 EDT Ante- Shift Note Reason for Admission: ZITA: 07/13/2009 Gestational Age (weeks): 33W3D Cervix: Vital signs: Stable Patient Vital Signs in the past 8 hrs: BP Pulse Resp Temp SpO2 O2 Flow Rate (L/min) O2 Device FIO2 % 05/28/091999 112/68 mmHg 108 18 36.3 ??C (97.3 ??F) - - - - 05/28/09 1559 118/74 mmHg 102 16 36.2 ??C (97.2 ??F) - - - - Movement: Present Membranes intact: Yes Bleeding: No, Contractions: No and Comment: not feeling any NST: Reactive Betamethasone: GDM: No, IV / SL: None Special Social Circumstances: boyfriend here for support Comments: Pt has intermittently used the SCDs. Needs to be reminded to use them. * Shayna Samuels - 05/28/2009 0632 EDT Medical Student Progress Note S: Patient feels well. Mild, infrequent contractions. No back pain. No LOF, no VB. movement is present. Tolerating regular diet, +BM. No trouble with urination. No F/C, CP/SOB. O: BP 97/52 Pulse 96 Temp(Src) 36 ??C (96.8 ??F) (Temporal) Resp 16 Ht 1.651 m (5' 5) Wt68.04 kg (150 lb) SpO2 98% LMP OB (ZITA:07/13/09) Gen: alert, NAD Pulm: clear to auscultation bilaterally CV: RRR Abd: soft, gravid, non-tender Extr: no lower extremity edema bilaterally A/P: The patient is a 19 year old @ 33+3 with PTL, ? Abruption, now stable. 1. PTL: stable, asymptomatic, x3 exams on 06/02. Negative KB on 05/25. Patient to stay inpatient until 35 weeks, on bedrest with SCDs. 2. FWB: AGA, s/p BMZ (second dose at 17:30 on 05/25/09) 3. Tachycardia: improved. TSH, T4 nl on 05/25 4. Prolonged QT: asymptomatic, no further workup or treatment unless symptomatic or bradycardic 5. GBS unknown: still pending at OSH ([facility]); prelim was neg (no growth yesterday), will fax final results to L&Elvira Samuels MS4 X 1370 * Ijeoma Sanabria MD - 05/28/2009 0628 EDT S: No c/o ctxs, LOF, VB. +FM. No palpitations, no CP/SOB. O: BP 97/52 Pulse 96 Temp(Src) 36 ??C (96.8 ??F) (Temporal) Resp 16 Ht 1.651 m (5' 5) Wt68.04 kg (150 lb) SpO2 98% LMP OB (ZITA:07/13/09) Gen: NAD CV: RRR Resp: CTAB Abd: Soft, no uterine tenderness Ext: NT A/P: 19 y/o @ 33+3 with PTL, stable. HD 5. 1. PTL--Pt stable, no cervical change for past 72 hours. Pt did not receive tocolysis for concern for abruption. KB returned neg. --continue inpatient bedrest, re-eval at 35 weeks 2. FWB--AGA. S/p BMZ x2 (05/24-2) 3. Tachycardia--improved/resolved. Asymptomatic. TSH, T4 nl 4. Prolonged QT--asymptomatic, no h/o No further w/u, treatment unless symptomatic or bradycardic. Will d/w cardiology 5. BV--metronidazole. Asymptomatic (except for PTL) so will d/c now. MFMS Attending I saw and examined patient. I agree with the the impression and plan as noted above. Will check with cardiol re: pt has a dx of long QT or whehter this needs eval/f/u to establish dx. Spoke with CNM in [facility]- may be able to d/c 34 weeks, she is checking with her peds to see if can d/c sooner Ijeoma Sanabria MD * Ijeoma Sanabria MD - 05/27/2009 0644 EDT CC: PTL S: feeling well. Denies ctx's, VB, LOF. +FM. No abd pain. Denies [place], CP, SOB, n/v, leg pain. O: Blood pressure 96/52, pulse 93, temperature 36.2 ??C (97.2 ??F), temperature source Temporal, resp. rate 18, height 1.651 m (5' 5), weight 68.04 kg (150 lb), last menstrual period OB (ZITA:07/13/09), SpO2 97%. Gen: NAD CV: RRR Lungs: CTAB Abd: soft, NT, ND Ext: NT, WWP, no edema A/P: 19 y/o @ 33+2 with PTL, ? Abruption. 1. PTL: Stable. Some ctx's on the toco yesterday but SVE unchanged - s/p BMZ, no tocolysis due to concern for abruption, although KB neg and had no bleeding 2. FWB: AGA - s/p full course BMZ - s/p peds consult 3. Tachycardia: resolved 4. Prolonged QT: asymptomatic, incidental finding. Will not w/u further unless develops symptoms 5. GBS unknown: still pending at OSH, prelim was neg (no growth yesterday), will fax final results to L&D MFMS Attending I saw and examined patient. I agree with the the impression and plan as noted above. Stable PTL. DIsucssed d/c 35 wkks in event undelivered. Ijeoma Sanabria MD * Kalpana Morales - 05/26/2009 0900 EDT CTSP for ctx's, q 5 on toco on her NST. Pt not feeling ctx's, feels well. O: Blood pressure 106/61, pulse 115, temperature 36.7 ??C (98.1 ??F), temperature source Temporal, resp. rate 16, height 1.651 m (5' 5), weight 68.04 kg (150 lb), last menstrual period OB (ZITA:07/13/09), SpO2 99%. SVE: /posterior A/P: 19 yo @ 33+1 with PTL. - no recent cervical change - not acutely laboring - will order shower, [place] * Itzel Deleon MD - 05/26/2009 0792 EDT R2 OB Antepartum PN CC: PTL RH+ Subjective: Feels well, Denies vaginal bleeding, contractions or LOF. +FM. Denies [place], CP, SOB, n/v, leg pain. Tolerating PO intake. Voiding without difficulty. Objective: Filed Vitals: 05/25/2009 8:15 PM 05/26/2009 12:00 AM 05/26/2009 5:00 AM 05/26/2009 6:00 AM BP: 106/62 109/66 88/45 90/53 Pulse: 111 101 105 Temp: 36.8 ??C (98.2 ??F) 37.2 ??C (99 ??F) 37.4 ??C (99.3 ??F) TempSrc: Temporal Temporal Temporal Resp: 20 18 16 Height: Weight: Intake/Output Summary (Last 24 hours) at 05/26/09 0725 Last data filed at 05/25/09 1330 Gross per 24 hour Intake 2070 ml Output 1675 ml Net 395 ml GEN: alert, no distress CV:Regular rhythm, tachycardic Resp:clear to auscultation, no wheezes, rales or rhonchi, symmetric air entry Abd:+BS, soft, NTTP, Gravid Ext: wwp, NTTP KB with no cells Assessment/Plan: A/P: 19 y/o @ 33+1 with PTL, ? Abruption. 1. PTL--Now stable. Asymptomatic. /70x3 exams. No tocolysis due to concern for abruption.Will continue care on Antepartum floor. 2. FWB--AGA. 2nd Dose of BMZ @ 1730 on 05/25 3. Tachycardia--improved. TSH, T4 nl 4. Prolonged QT--asymptomatic, no h/o No further w/u, treatment unless symptomatic or bradycardic. 5. GBS unknown--still pending at OSH. OB x-cover: Pt seen and examined by me. I agree with the above findings and plan of care. No complaints, denies ctx. BP 106/61 Pulse 115 Temp(Src) 36.7 ??C (98.1 ??F) (Temporal) Resp 16 Ht 1.651 m (5' 5) Wt 68.04 kg (150 lb) SpO2 99% LMP OB (ZITA:07/13/09) abd-soft, gravid, NT 33+1 weeks, PTL ?abruption, stable. S/p BMZ. Vtx. Tachycardia stable. Requires in hospital bedrest due to high risk of delivery. Itzel Deleon MD * Shayna Samuels E - 05/26/2009 0630 EDT Medical Student Progress Note S: Patient feels well. No contractions since coming to [facility] 5. No back pain. No LOF, no VB. movement is present. Tolerating regular diet, no BM since admission yesterday. No trouble with urination. No F/C, CP/SOB. O: BP 90/53 Pulse 105 Temp(Src) 37.4 ??C (99.3 ??F) (Temporal) Resp 16 Ht 1.651 m (5' 5) Wt 68.04 kg (150 lb) LMP OB (ZITA:07/13/09) Gen: alert, NAD Pulm: clear to auscultation bilaterally CV: RRR Abd: soft, gravid, non-tender Extr: no lower extremity edema bilaterally A/P: The patient is a 19 year old @ 33+1 with PTL, ? Abruption, now stable. 1. PTL: stable, asymptomatic, x3 exams on 06/02. Negative KB on 05/25. Patient likely to stay inpatient for the time being. 2. FWB: AGA, s/p BMZ (second dose at 17:30 on 05/25/09) 3. Tachycardia: improved. TSH, T4 nl on 05/25 4. Prolonged QT: asymptomatic, no further workup or treatment unless symptomatic or bradycardic 5. GBS unknown: still pending at OSH ([facility]) Shayna Samuels MS4 X [id number] * Frances Estrella RN - 05/25/2009 1726 EDT Pt going to transfer to [facility] undelivered. IV is saline locked. Pt is tolerating a regular diet. Second dose of BMZ given at 17:30. FHR has been reassuring. See transfer orders written by Dr Clark. * Comfort Philippe RN - 05/25/2009 1432 EDT G1 at 33 weeks with PTL will receive he 2nd steroid shot today at 1735 then [facility]ansfer to [facility]for an extended stay. * Comfort Philippe RN - 05/25/[address] Winston in to see the pt and discuss the plan * Cara Clark - 05/25/2009 1427 EDT S: Pt sleeping. O: BP 106/65 Pulse 106 Temp(Src) 36.7 ??C (98.1 ??F) (Tympanic) Resp 18 Ht 1.651 m (5' 5) Wt 68.04 kg (150 lb) LMP OB (ZITA:07/13/09) FHT: BL 130 +mod variability +accels no decels TOCO: rare ctxs A/P: 19 y/o @ 33+0 with PTL, ? Abruption. Cat I. 1. PTL--Now stable. Asymptomatic. 4/70x3 exams. No tocolysis due to concern for abruption. Stable to be transferred to [facility] after BMZ and to let us know if ctxs worsen. 2. FWB--AGA. 2nd Dose of BMZ @ 1730. 3. Tachycardia--improved. TSH, T4 nl 4. Prolonged QT--asymptomatic, no h/o No further w/u, treatment unless symptomatic or bradycardic. 5. GBS unknown--still pending at OSH. * Comfort Philippe RN - 05/25/2009 1326 EDT Pt up to void * Comfort Philippe RN - 05/25/2009 1309 EDT 1208 Pt is sleeping plan to leave undisturbed and defer VS til awake * Comfort Philippe RN - 05/25/2009 1143 EDT 1143 Pt up to void * Comfort Philippe RN - 05/25/2009 0904 EDT 0904 Pt up to void * Comfort Philippe RN - 05/25/2009 0755 EDT 0751 pt up to void * Comfort Philippe RN - 05/25/2009 0731 EDT Breakfast tray given * Comfort Philippe RN - 05/25/2009 0723 EDT 0715 care assumed by [facility] * Constance Landa RN - 05/25/2009 0722 EDT Briefly in care x's 30 minutes. Up to void, vaginal exam unchanged by Dr Culver. Pt twila very poorly, crying. Much support offered. Reg diet ordered. Changed to comfortable bed. * Justin Winston MD - 05/25/2009 0658 EDT S: Not feeling contrax. Able to sleep O: Blood pressure 88/47, pulse 108, temperature 36.2 ??C (97.2 ??F), temperature source Tympanic, resp. rate 18, height 1.651 m (5' 5), weight 68.04 kg (150 lb), last menstrual period OB (ZITA:07/13/09). Gen: Looks comfortable [place]: No contrax visualized FHT: Baseline 140, mod variability, + accels, no decels SVE: 4/75/-2 unchanged Pain with vaginal exam A: 19 y.o. G1 @ 33w0d with PTL likely 2/2 abruption. Hemodynamically stable. Tachycardia ameliorating. P: #BV Will Tx with vaginal metrogel #abruption KB Pending #PTL T+S [address] IVs in place As likely abruption, would not tocolyze at this point Next BM 05/25 @ 1730 S/p peds consult. Anesthesia aware #Global Varicella P #GBS unknown Will continue PCN for PTL and GBS unknown GBS P @ OSH #tachycardia TSH wnl 1 month ago @ OSH. Will recheck TSH, Free T4 here EKG with prolonged QT but in the absence of bradycardia, Fam Hx, or concerning personal history. Will continue to monitor. HR decreasing throughout night and with fluids. MARTINA CULVER MD Attending addendum: Pt seen and evaluated by me and reviewed with Dr. Culver and [place]. Stable 33 week IUP transferred from [facility] secondary to PTL. Presently at 4 cm. SP RDS prophylaxis x 1 for repaet dosing later this PM. No tocolysis due to concerns over abruption. Presently comfortable with minimal contraction activity. ABD: Soft, nontender, +FA. No evidence of chorioamnionitis or abruption presently. FHT CAT 1, stable. P: Agree with plan to complete steroids for RDS prophylaxis and hold tocolysis. Observation for recurrent PTL, pt understands delivery in next 2-3 days is likely. * Snehla Rouse RN - 05/25/2009 0732 EDT Pt awakened by O2 sat monitor. VS obtained, pt denies needs. * Snehal Rouse RN - 05/25/2009 1259 EDT VS deferred, pt asleep in SF position. * Snehal Rouse RN - 05/25/2009 0446 EDT O2 sat monitor continuing to malfunction. Changed to machine sensor and moved to pt's left toe, reading 99%. * Snehal Rouse RN - 05/25/2009 0445 EDT Call salazar answered; pt into SF position. O2 sat monitor reading 87%, adjusted on finger, arm lowered, reading now 99%. Pt denies SOB, but feels warm. Temperature lowered in room, new bag of LR up. * Snehal Rouse RN - 05/25/2009 0420 EDT Pt up to BR, voided 725 cc clear yellow urine. EFM and toco adjusted, back to bed on right side. Denies needs/pain or feeling any ctx. Uterus palpates mild with irregular ctx. Call salazar within reach,SCD's intact. * Maliha Izaguirre RN - 05/25/2009 0349 EDT 0340 - to bedside, adjusted EFM, pt denies needs at this time. Pt asked me if she was still sam - denies feeling any ctx. Call salazar within reach * Snehal Rouse RN - 05/25/2009 0313 EDT VS obtained, EFM adjusted. Pt denies needs at this time. * Grace Moss - 05/25/2009 0221 EDT Pt c/o acid reflux. Palomo DIEHL aware and ordered citra ph and given * Grace Moss - 05/25/2009 0132 EDT SCDs applied per order with bedrest. Pt resting in bed. Mother in room on cot resting as well * Sissy Staton - 05/25/2009 0124 EDT Medical Student Progress Note: 01:20 05/24/2009 CC: PTL vs abruption S: Comfortable lying on side. Headache slightly improved but remains. Still having discomfort with contractions, but less intense. Going to try to sleep for a little while. O: BP 106/63 Pulse 119 Temp(Src) 36.7 ??C (98.1 ??F) (Tympanic) Resp 17 Ht 1.651 m (5' 5) Wt 68.04 kg (150 lb) LMP OB (ZITA:07/13/09) FHR: Baseline 135, moderate variability, + accels, no decels [place]: Every 2-3 minutes SVE: deferred A/P: 19 yo at 33+0 wks gestation. Presenting with clinical signs of abruption and labor. PTL, ? abruption: Continue with EFM and toco, s/p 1 course BMZ, will receive next course this morning at 17:30 + GBS: Penicillin given and ordered q4 hrs until 05/27/09 Maternal Tachycardia: Per pt has had tachycardia throughout . EKG done, questionable prolonged QT-Dr. Culver reviewed with anesthesiology. Continue to monitor. BV: No treatment for now Sissy Staton MS IV * Grace Moss - 05/25/2009 0124 EDT C/O of dull headache. 10 rating. Palomo DIEHL off floor, Sanjiv DIEHL reviewed pt chart and allowedfor acetaminophen 650mg as ordered post * Grace Moss - 05/25/2009 0059 EDT Palomo DIEHL allowed for clear liquid diet. Pt tolerating PO fluids. 0053 OOB to BR. Palomo DIELH allowed for bedrest with BR privileges. * Grace Moss - 05/25/2009 0024 EDT Plan of care discussed with Palomo DIEHL. Cervix 4cm dilated and 75% effaced. With current ctx pattern plan to not continue nifedipine and allow labor progress with continuous EFM. Pt on bedrest. Notfelling ctx at this time, pain 0/10. [place]OB [place] and flight arrives at 05/25 2200. Mainsupport right now is mother. PEDS and Anesthesia have meet with pt before start of shift. * Martina Culver MD - 05/25/2009 0002 EDT Cc: Abruption, PTL S: Feeling contractions more. No Fam Hx prolonged QT, no Hx CP/palpitations/SOB/syncope/seizures. No Fam Hx sudden . O: Blood pressure 104/60, pulse 121, temperature 37 ??C (98.6 ??F), temperature source Tympanic, resp. rate 18, height 1.651 m (5' 5), weight 68.04 kg (150 lb), last menstrual period OB (ZITA:07/13/09). [place]: q 1-2 min FHT: baseline 140, mod variability, + accels, no decels SVE: 4/75% Unchanged EKG: WY 0.12, QRS 0.08, QTc 469 (calculated manually 0.48), normal axis, HR 125bpm, no ST segment changes EKG reviewed with Dr. Thurston, anesthesiology A: 19 y.o. @ 33w0d with PTL, abruption. Cat 1 FHT. P: #abruption KB Pending #PTL T+S 2 large [address] IVs in place As likely abruption, would not tocolyze at this point Next BMZ 05/25 @ 1730 S/p peds consult. Anesthesia aware. #Global Varicella P #GBS unknown Will continue PCN for PTL and GBS unknown GBS P @ OSH #tachycardia TSH wnl 1 month ago @ OSH. Will recheck TSH, Free T4 here EKG with prolonged QT but in the absence of bradycardia, Fam Hx, or concerning personal history. Will continue to monitor. HR decreasing throughout night and with fluids. #BV No Tx for now MARTINA CULVER MD D/W Dr. Deleon * Grace Moss - 05/24/2009 2324 EDT Report given by Elvira Parra RN. Pt at US at time of report. * Kori Parra RN - 05/24/2009 2250 EDT Pt off monitor for ultrasound * Jeff Slaughter MD - 05/24/2009 2242 EDT Peds Consult Note - PGY-3 Peds called to discuss issues of prematurity with this 19yo patient at 32+6 weeks with pretermlabor. Reviewed excellent survival and low risk of long-term neurodevelopmental disability for 33 week infants. Discuss[address] DR resuscitation, modes of respiratory support, surfactant administration, IVand umbilical access, IVF and parenteral nutrition, gavage feeds, rule out sepsis and antibiotics, j aundice and phototherapy, typical duration of NICU stay and NICU visitation policy. FOB to arrive tomorrow evening. Available for further consult/questions as needed. JEFF SLAUGHTER MD * Kori Parra RN - 05/24/20092220 EDT Peds at bedside for consult * Kori Parra RN - 05/24/20092220 EDT Strip reviewed with Dr. Culver. lr bolus infusing * Kori Parra RN - 05/24/20092154 EDT anes at bedside for consult * Kori Parra RN - 05/24/20092110 EDT Dr. Culver at bedside doing Ultrasound * Kori Parra RN - 05/24/20092046 EDT Pt admitted to [facility] from [facility]. 20 gauge IV infusing LR. Pt denies feeling lof, + fm, spot times 1 of vaginal bleeding after spec exam Pt denies feeling feeling contractions at this time documented in this encounter H&P Notes * Itzel Deleon MD - 05/24/20092158 EDT Rh+ / RI / GBS neg Chief Complaint IUP @ 32w6d Transfer from [facility] ([facility]) for PTL Back pain Subjective 19 y.o. @ 32w6d by LMP c/w 16 week US. Woke up the morning with 1st ever episode of constant back pain worsening over day and RLQ cramping waxing and waning. Was brought over to OSH at 1200, sam every 3-5 minutes. SVE 1225 1cm/thick/-1/posterior. At 1545, sam q 1-1 1/2 minutes,SVE 1645 2-3/75/-1 to 0. Pt has had no vaginal bleeding during this . Did have some vaginal bleeding after I+O cath today when she got up to go to the bathroom, was told it was from the catheterization. Abdominal pain and back pain continue. Is feeling contractions mildly. +FM. No LOF. Hadsevere discomfort during speculum and SVE exam at OSH, was told she had a yeast infection. Given Procardia 10mg at 1700, BMZ @ 1730. Ampicillin given .1715 Sees [facility]) This complicated by low lying placenta. US 04/24/09 documented anterior right placenta Received seasonal flu, declined H1N1 Current OBHx: Screening: CF neg, Quads wnL ZITA: Estimated Date of Delivery: 07/13/09 based on LMP 10/05/08 US 01/22 at 16 weeks --> ED 07/08 Ultrasound: Date Gest Age EFW C REAL presentation placenta 01/22 16 162 Low lying ?previa Anatomy wnl 02/14 19+1 311 Marginal previa Anatomy wnl 04/24 29 1474 75% 19.36 Anterior No previa Anatomy wnl Labs: Blood Type Rh+ Antibody neg Rubella immune VDRL Non-reactive Varicella Hep B neg HIV neg Hep C Early gtt 1 hr gtt 118 3 hr gtt G & C Neg/neg GBS POBHx: none PGynHx: 1st pap ever this , wnl. No STIs PMHx: Asthma as child. No albuterol use in years PSHx: none Meds: FeSO4 dly, PNV All: No Known Allergies FamHx: No bleeding/clotting d/o SocHx: No Tob/EtOH/IVD OSH labs: hct 31.6, wbc 9.8, plates 195 Objective Filed Vitals: 05/24/2009 8:40 PM 05/24/2009 9:40 PM BP: 116/69 116/73 Pulse: 133 127 Temp: 37 ??C (98.6 ??F) TempSrc: Tympanic Resp: 18 18 Height: 1.651 m (5' 5) Weight: 68.04 kg (150 lb) Gen: NAD CV: RRR, no m Resp: CTA-B Abd: Soft, NT to deep palpation, ND, +BS, gravid, fundus c/w dates Ext: +DPPs, NT, no edema [place]: q 1-2 min FHT: Baseline 150, mod variability, +accels, rare variable decel SVE: /-1 midposition/soft US: ceph, anterior placenta, no subchorionic hemorrhage seen. 1970g (45% VHC), REAL 17.46 Lab Results Component Value Date/Time ??? WBC 14.81 05/24/09 9:06 PM ??? HGB 11.0 05/24/09 9:06 PM ??? HCT 31.9 05/24/09 9:06 PM ??? MCV 82 05/24/09 9:06 PM ??? PLT 181 05/24/09 9:06 PM Lab Results Component Value Date/Time ??? CREATININE 0.60 05/24/09 9:06 PM INR 1.0 PTT 24 Fibrinogen 417 UDS neg UA 1+ ketones, 3+ blood, neg protein 1+ LE, neg nitrates Wet prep: + clue, neg whiff, neg yeast/trich Assessment 19 y.o. @32w6d with abruption and PTL. Category 1 FHT. Plan #abruption KB Pending #PTL T+S [address] IVs in place As likely abruption, would not tocolyze at this point Next BMZ 05/25 @ 1730 S/p peds consult. Anesthesia aware. #Global Varicella P #GBS unknown Will continue PCN for PTL and GBS unknown GBS P @ OSH #tachycardia EKG P #BV No Tx for now Martina Culver MD D/W Dr. Deleon OB x-cover: Pt seen and examined by me. I agree with the above findings and plan of care. 19 yo @ 32+6 weeks by LMP and 16 week ultrasound with EDC 07/13/09 transported from OSH with PTL. Today changed cervix from 1-->2-3cm with reg ctx. Received nifedipine x 1, amp, and BMZ x 1 prior to transport. also notable for low lying placenta resolved on f/u scan. Also maternal tachycardia (120-130),had nl TSH but no further eval. Medical history notable for asthma as a child, not on meds. labs: Rh+/ab screen neg/RI/stsNR/HepB neg/HIV neg/gc/ct neg/glucola 118 Nl anatomy scan at OSH BP 104/60 Pulse 121 Temp(Src) 37 ??C (98.6 ??F) (Tympanic) Resp 18 Ht 1.651 m (5' 5) Wt 68.04 kg (150 lb) LMP OB (ZTIA:07/13/09) abd-soft, gravid, NT toco-ctx q1-2 min fhts-130s +mod variability no decels sve per Dr. Woodson / US-cephalic, REAL 17, EFW 1970g (45%), anterior placenta, no evidence retroplacental clot Lab Results Component Value Date/Time ??? WBC 14.81 05/24/09 9:06 PM ??? HGB 11.0 05/24/09 9:06 PM ??? HGB 12.7 01/19/09 ??? HCT 31.9 05/24/09 9:06 PM ??? HCT 36.1 01/19/09 ??? MCV 82 05/24/09 9:06 PM ??? PLT 181 05/24/09 9:06 PM Lab Results Component Value Date/Time ??? INR 1.0 05/24/09 9:06 PM ??? PROTIME 13.4 05/24/09 9:06 PM Lab Results Component Value Date/Time ??? PTT 24 05/24/09 9:06 PM Fibrinogen 417 UDS neg A/P) 19 yo @ 32+6 weeks, PTL ?abruption given ctx pattern. Maternal tachycardia but stable over last month. Hemodynamically stable with CAT 1 tracing. Given concern for abruption will hold on tocolysis at present. S/p 1 dose BMZ, will repeat in 24 hours. PCN for GBS ppx until swab results. S/p anesthesia and NICU consult. Check EKG given tachycardia. Itzel Deleon MD documented in this encounter Procedure Notes * Inpatient, Physician - 06/05/2009 1842 EDTAssociated Order(s): ECG REPORT - SCANNED * Inpatient, Physician - 06/04/2009 0043 EDTAssociated Order(s): ECG REPORT - SCANNED documented in this encounter OR Notes * Anesthesia Preprocedure Evaluation - Inpatient, Physician - 06/13/2009 1442 EDT documented in this encounter Miscellaneous Notes * Scanned Note-Null - Inpatient, Physician - 06/13/2009 1442 EDT * Scanned Note-Null - Inpatient, Physician - 06/13/2009 1442 EDT * Scanned Note-Null - Inpatient, Physician - 06/13/2009 1442 EDT * Scanned Note-Null - Inpatient, Physician - 06/13/2009 1442 EDT * Miscellaneous - Inpatient, Physician - 06/13/2009 1442 EDT * Plan of Care - Zoya An RN - 06/08/2009 0508 EDT Ante- Shift Note Reason for Admission: PTL ZITA: 07/13/2009 Gestational Age (weeks): 35W0D Cervix: 90/-1 on 05/26/09 Vital signs: Stable Patient Vital Signs in the past 8 hrs: BP Pulse Resp Temp SpO2 O2 Flow Rate (L/min) O2 Device FIO2 % 06/08/09 0030 102/63 mmHg 104 18 36.9 ??C (98.4 ??F) 99 % - - - Movement: Present Membranes intact: Yes Bleeding: No Contractions: No NST: Done previous shifts Betamethasone: completed course GDM: No, IV / SL: None Special Social Circumstances:hoping for d/c on thursday Comments: Pt states no leaking, bleeding or sam. movement present. Pt is is in good spirits- excited about being able to go home today. * Plan of Care - Katherin Gaxiola RN - 06/07/2009 2310 EDT Ante- Shift Note Reason for Admission: PTL ZITA: 07/13/2009 Gestational Age (weeks): 34W6D Cervix: 4/90/-1 on 05/26/09 Vital signs: Stable Patient Vital Signs in the past 8 hrs: BP Pulse Resp Temp SpO2 O2 Flow Rate (L/min) O2 Device FIO2 % 06/07/09 2030 112/64 mmHg 114 18 36.2 ??C (97.2 ??F) 99 % - - - 06/07/09 1630 92/62 mmHg 104 18 36.5 ??C (97.7 ??F) 100 % - - - Movement: Present Membranes intact: Yes Bleeding: No Contractions: No NST: Reactive and reassuring 1 ctx, nst on for 50 min Betamethasone: GDM: No, IV / SL: None Special Social Circumstances:hoping for d/c on thursday Comments: Pt had uneventful day. No pain. No bleeding, leaking, sam. Showered- FOB here visiting this evening and so pt is is in good spirits- excited about being able to go homeFriday. * Plan of Care - Radha Emmanuel - 06/07/2009 1047 EDT Ante- Shift Note Reason for Admission: PTL ZITA: 07/13/2009 Gestational Age (weeks): 34W6D Cervix: 4/90/-1 on 05/26/09 Vital signs: Stable Patient Vital Signs in the past 8 hrs: BP Pulse Resp Temp SpO2 O2 Flow Rate (L/min) O2 Device FIO2 % 06/07/09 0815 92/55 mmHg 95 18 36.5 ??C (97.7 ??F) 98 % - - - Movement: Present Membranes intact: Yes Bleeding: No Contractions: No NST: Done today and reactive Betamethasone: received 2 doses 05/24-05/25 GDM: No, IV / SL: None Special Social Circumstances: hoping for d/c on thursday Comments: * Plan of Care - Vivi Hernandez RN - 06/07/2009 0523 EDT Ante- Shift Note Reason for Admission: PTL ZITA: 07/13/2009 Gestational Age (weeks): 34W6D Cervix: 4/90/-1 on 05/26/09 Vital signs: Stable Patient Vital Signs in the past 8 hrs: BP Pulse Resp Temp SpO2 O2 Flow Rate (L/min) O2 Device FIO2 % 06/07/09 0000 120/66 mmHg 100 18 36.2 ??C (97.2 ??F) 100 % - - - Movement: Present Membranes intact: Yes Bleeding: No Contractions: No NST: no NST this shift Betamethasone: GDM: No, IV / SL: None Special Social Circumstances: hoping for d/c on thursday Comments: Pt slept most of night. FOB here * Plan of Care - Katherin Gaxiola RN - 06/06/20097 EDT Ante- Shift Note Reason for Admission: PTL ZITA: 07/13/2009 Gestational Age (weeks): 34W5D Cervix: 4/90/-1 on 05/26/09 Vital signs: Stable Patient Vital Signs in the past 8 hrs: BP Pulse Resp Temp SpO2 O2 Flow Rate (L/min) O2 Device FIO2 % 06/06/091999 94/62 mmHg 106 18 36.4 ??C (97.5 ??F) 99 % - - - 06/06/09 1700 118/78 mmHg 99 18 36.4 ??C (97.5 ??F) - - - - Movement: Present Membranes intact: Yes Bleeding: No Contractions: No NST: Reactive and reassuring 1 ctx, nst on for 50 min Betamethasone: GDM: No, IV / SL: None Special Social Circumstances:hoping for d/c on thursday Comments: Pt had uneventful day. No pain. No bleeding, leaking, sam. Showered- FOB here visiting this evening and so pt is is in good spirits- excited about being able to go homeFriday. * Plan of Care - Cordelia Landaverde, SIMONA - 06/06/2009 1512 EDT Ante- Shift Note Reason for Admission: PTL ZITA: 07/13/2009 Gestational Age (weeks): 34W5D Cervix: 4/90/-1 on 05/26/09 Vital signs: Stable Patient Vital Signs in the past 8 hrs: BP Pulse Resp Temp SpO2 O2 Flow Rate (L/min) O2 Device FIO2 % 06/06/09 1300 106/68 mmHg 111 16 36.9 ??C (98.4 ??F) - - - - 06/06/09 0940 110/72 mmHg 100 16 36.9 ??C (98.4 ??F) 99 % - - - Movement: Present Membranes intact: Yes Bleeding: No Contractions: No NST: Reactive and reassuring 1 ctx, nst on for 50 min Betamethasone: GDM: No, IV / SL: None Special Social Circumstances:hoping for d/c on thursday Comments: Pt had uneventful day. No pain. No bleeding, leaking, sam. * Plan of Care - Gavi Holland RN - 06/05/2009 4426 EDT Ante- Shift Note Reason for Admission: PTL ZITA: 07/13/2009 Gestational Age (weeks): 34W4D Cervix: 4/90/-1 on 05/26/09 Vital signs: Stable Patient Vital Signs in the past 8 hrs: BP Pulse Resp Temp SpO2 O2 Flow Rate (L/min) O2 Device FIO2 % 06/05/09 2000 107/59 mmHg 100 18 36.3 ??C (97.3 ??F) - - - - 06/05/09 1600 103/65 mmHg 105 18 36.8 ??C (98.2 ??F) 97 % - - - Movement: Present Membranes intact: Yes Bleeding: No Contractions: No NST: Reactive and reassuring Betamethasone: GDM: No, IV / SL: None Special Social Circumstances: Comments: Pt had uneventful day. No pain. No bleeding, leaking, sam. * Plan of Care - Aparna Lange - 06/05/2009 1454 EDT Problem: MAINTENANCE/ SUPPORT Goal: Maintain Intervention: Assess for signs of labor Data: NST done reactive and reassuring. No bleeding leaking or sam. Action: Monitor for signs of labor or bleeding. Response: NST daily. Aparna Lange RN IBCLC Aparna Lange RN 06/05/2009 2:53 PM * Plan of Care - Aparna Lange - 06/05/2009 1440 EDT Ante- Shift Note Reason for Admission: PTL ZITA: 07/13/2009 Gestational Age (weeks): 34W4D Cervix: 4/90/-1 on 05/26/09 Vital signs: Stable Patient Vital Signs in the past 8 hrs: BP Pulse Resp Temp SpO2 O2 Flow Rate (L/min) O2 Device FIO2 % 06/05/09 1200 103/59 mmHg 107 12 35.9 ??C (96.6 ??F) 98 % - - - 06/05/09 0900 - - - - 97 % - - - 06/05/09 0857 99/58 mmHg 121 12 36.3 ??C (97.3 ??F) - - - - Movement: Present Membranes intact: Yes Bleeding: No Contractions: No NST: Reactive and reassuring Betamethasone: GDM: No, IV / SL: None Special Social Circumstances: Comments: Pt had uneventful day. Ate lunch with boyfriend in room. No pain. No bleeding, leaking, sam. Aparna Lange RN IBCLC Jeff Mario RN 06/05/09 06:58 * Plan of Care - Jeff Mario RN - 06/05/2009 0656 EDT Ante- Shift Note Reason for Admission: PTL ZITA: 07/13/2009 Gestational Age (weeks): 34W4D Cervix: 4/90/-1 on 05/26/09 Vital signs: Stable Patient Vital Signs in the past 8 hrs: BP Pulse Resp Temp SpO2 O2 Flow Rate (L/min) O2 Device FIO2 % 06/05/09 0030 117/67 mmHg 96 18 36.3 ??C (97.3 ??F) 98 % - - - Movement: Present Membranes intact: Yes Bleeding: No Contractions: No NST: Comment: daily NST done by day shift Betamethasone: GDM: No, IV / SL: None Special Social Circumstances: Comments: Pt had an uneventful night. Has rested most of the night. She is looking forward to goinghome soon. Jeff Mario RN 06/05/09 06:58 * Plan of Care - Jeanie Orellana - 06/04/2009 2137 EDT Ante- Shift Note Reason for Admission: ZITA: 07/13/2009 Gestational Age (weeks): 34W3D Cervix: 4/90/-1 on 05/26/09 Vital signs: Stable Patient Vital Signs in the past 8 hrs: BP Pulse Resp Temp SpO2 O2 Flow Rate (L/min) O2 Device FIO2 % 06/04/09 2000 115/64 mmHg 96 20 36.7 ??C (98.1 ??F) 97 % - - - 06/04/09 1600 119/68 mmHg 106 18 36.5 ??C (97.7 ??F) 99 % - - - Movement: Present Membranes intact: Yes Bleeding: No Contractions: No NST: Comment: daily NST done by day shift Betamethasone: GDM: No, IV / SL: None Special Social Circumstances: Comments: Quiet shift, briefly discussed new orders permitting activity as tolerated. Specifically,patient wanted to be assured that she could walk to the cafeteria rather than take a wheel chair. * Plan of Care - Aparna Lange - 06/04/2009 1504 EDT Problem: NUTRITION/DIET Goal: Adequate Fluid & Diet To Meet Nutritional Needs Data: We discussed nutritional needs. She eats no breakfast, eats pizza daily for lunch, and has candy and popcorn at bedside. Suggested she eat more fruits/veggies and protein. Action: Positive discussion. Reinforced positive diet habits. Response: Patient listened politely. Aparna Lange RN 06/04/2009 3:02 PM * Plan of Care - Aparna Lange - 06/04/2009 1500 EDT Ante- Shift Note Reason for Admission: PTL ZITA: 07/13/2009 Gestational Age (weeks): 34W3D Cervix: 4 cm Vital signs: stable Patient Vital Signs in the past 8 hrs: BP Pulse Resp Temp SpO2 O2 Flow Rate (L/min) O2 Device FIO2 % 06/04/09 1300 109/72 mmHg 104 20 36.1 ??C (97 ??F) 97 % - - - 06/04/09 0900 - - - - - - - 100 % 06/04/09 0800 111/68 mmHg 112 16 36 ??C (96.8 ??F) 100 % - - - Movement: Present Membranes intact: Yes Bleeding: No. Contractions: denies NST: Reactive, reassuring. GDM: no IV / SL: none Special Social Circumstances: Comments: FOB present and supportive. Slept late. Had lunch in [facility] with Segundo. No Bleeding,leaking, Contractions. * Plan of Care - Maykel Dior RN - 06/04/2009 0416 EDT Ante- Shift Note Reason for Admission: PTL ZITA: 07/13/2009 Gestational Age (weeks): 34W3D Cervix: 4 cm Vital signs: stable Patient Vital Signs in the past 8 hrs: BP Pulse Resp Temp SpO2 O2 Flow Rate (L/min) O2 Device FIO2 % 06/04/09 0400 112/58 mmHg 95 18 36.4 ??C (97.5 ??F) 98 % - - - 06/03/09 2345 109/62 mmHg 104 18 36.3 ??C (97.3 ??F) 98 % - - - Movement: Present Membranes intact: Yes Bleeding: No. Contractions: denies NST: GDM: No, IV / SL: none Special Social Circumstances: Comments: FOB present and supportive. Been awake till 0400 * Plan of Care - Snehal Talavera RN - 06/03/2009 2206 EDT Ante- Shift Note Reason for Admission: PTL ZITA: 07/13/2009 Gestational Age (weeks): 34W2D Cervix: 4 cm Vital signs: stable Patient Vital Signs in the past 8 hrs: BP Pulse Resp Temp SpO2 O2 Flow Rate (L/min) O2 Device FIO2 % 06/03/09 1935 112/58 mmHg 108 18 36.2 ??C (97.2 ??F) 98 % - - - 06/03/09 1610 111/56 mmHg 97 18 36.3 ??C (97.3 ??F) 97 % - - - Movement: Present Membranes intact: Yes Bleeding: No. Contractions: denies NST: GDM: No, IV / SL: none Special Social Circumstances: Comments: FOB present and supportive. NST reactive. * Plan of Care - Yun Dorado RN - 06/03/2009 1436 EDT Ante- Shift Note Reason for Admission: PTL ZITA: 07/13/2009 Gestational Age (weeks): 34W2D Cervix: 4 cm Vital signs: stable Patient Vital Signs in the past 8 hrs: BP Pulse Resp Temp SpO2 O2 Flow Rate (L/min) O2 Device FIO2 % 06/03/09 1250 102/62 mmHg 103 18 36.3 ??C (97.3 ??F) 97 % - - - 06/03/09 0914 103/54 mmHg 103 18 36.4 ??C (97.5 ??F) - - - - Movement: Present Membranes intact: Yes Bleeding: No. Contractions: denies NST: GDM: No, IV / SL: none Special Social Circumstances: Comments: FOB present and supportive. NST reactive. * Plan of Care - Maykel Dior RN - 06/03/2009 0412 EDT Ante- Shift Note Reason for Admission: PTL/ ? abruption ZITA: 07/13/2009 Gestational Age (weeks): 34W2D Cervix: 4 cm Vital signs: stable Patient Vital Signs in the past 8 hrs: BP Pulse Resp Temp SpO2 O2 Flow Rate (L/min) O2 Device FIO2 % 06/03/09 0005 109/66 mmHg 102 18 36.3 ??C (97.3 ??F) 99 % - - - Movement: Present Membranes intact: Yes Bleeding: No. Contractions: denies NST: GDM: No, IV / SL: none Special Social Circumstances: Comments: FOB present and supportive. * Plan of Care - Snehal Talavera RN - 06/02/2009 7438 EDT Ante- Shift Note Reason for Admission: PTL/ ? abruption ZITA: 07/13/2009 Gestational Age (weeks): 34W1D Cervix: 4 cm Vital signs: stable Patient Vital Signs in the past 8 hrs: BP Pulse Resp Temp SpO2 O2 Flow Rate (L/min) O2 Device FIO2 % 06/02/09 1914 93/62 mmHg 111 16 36.3 ??C (97.3 ??F) - - - - 06/02/09 1630 115/72 mmHg 106 16 36.1 ??C (97 ??F) - - - - Movement: Present Membranes intact: Yes Bleeding: No. Contractions: Irregular ctx noted on NST, not felt by pt. NST: GDM: No, IV / SL: none Special Social Circumstances: Comments: FOB present and supportive. * Plan of Care - Yodit Magana - 06/02/2009 0803 EDT Ante- Shift Note Reason for Admission: PTL/ ? abruption ZITA: 07/13/2009 Gestational Age (weeks): 34W1D Cervix: 4 cm Vital signs: stable Patient Vital Signs in the past 8 hrs: BP Pulse Resp Temp SpO2 O2 Flow Rate (L/min) O2 Device FIO2 % 06/02/09 0400 90/54 mmHg 98 16 36.4 ??C (97.5 ??F) 99 % - - - 06/02/09 0025 116/62 mmHg 96 16 36.7 ??C (98.1 ??F) 98 % - - - Movement: Present Membranes intact: Yes Bleeding: No. Contractions: Irregular ctx noted on NST, not felt by pt. NST: GDM: No, IV / SL: none Special Social Circumstances: Comments: FOB present and supportive. * Plan of Care - Maykel Dior RN - 06/02/2009 0232 EDT Ante- Shift Note Reason for Admission: PTL/ ? abruption ZITA: 07/13/2009 Gestational Age (weeks): 34W1D Cervix: 4 cm Vital signs: stable Patient Vital Signs in the past 8 hrs: BP Pulse Resp Temp SpO2 O2 Flow Rate (L/min) O2 Device FIO2 % 06/02/09 0025 116/62 mmHg 96 16 36.7 ??C (98.1 ??F) 98 % - - - 06/01/09 1945 117/72 mmHg 102 16 37 ??C (98.6 ??F) 98 % - - - Movement: Present Membranes intact: Yes Bleeding: No, Contractions: none . Pt denies NST: GDM: No, IV / SL: none Special Social Circumstances: Comments: FOB present and supportive, Pt. On her laptop since last check at 02, no c/o * Plan of Care - Yodit Magana - 06/01/2009 1426 EDT Ante- Shift Note Reason for Admission: PTL/ ? abruption ZITA: 07/13/2009 Gestational Age (weeks): 34W0D Cervix: Vital signs: stable Patient Vital Signs in the past 8 hrs: BP Pulse Resp Temp SpO2 O2 Flow Rate (L/min) O2 Device FIO2 % 06/01/09 1340 114/74 mmHg 102 16 36.7 ??C (98.1 ??F) - - - - 06/01/09 0924 108/58 mmHg 100 12 36.7 ??C (98.1 ??F) - - - - Movement: Present Membranes intact: Yes Bleeding: No, Contractions: none . Pt denies NST: Done on days - Reactive with one variable decel x 20 sec with return to baseline. Betamethasone: completed GDM: No, IV / SL: none Special Social Circumstances: Segundo, pt's boyfriend at bedside very nice and supportive. Comments: Pt states non LBC, + movement. NO concerns during day. * Plan of Care - Zully Ray RN - 06/01/[address] Clark notified of decel on NST. Dr. Clark states she will come and see strip. * Plan of Care - Zoya An RN - 06/01/2009 0519 EDT Ante- Shift Note Reason for Admission: PTL/ ? abruption ZITA: 07/13/2009 Gestational Age (weeks): 34W0D Cervix: Vital signs: stable Patient Vital Signs in the past 8 hrs: BP Pulse Resp Temp SpO2 O2 Flow Rate (L/min) O2 Device FIO2 % 06/01/09 0415 99/54 mmHg 100 16 - - - - - 06/01/09 0000 110/52 mmHg 108 16 36.5 ??C (97.7 ??F) 97 % - - - Movement: Present Membranes intact: Yes Bleeding: No, Contractions: none . Pt denies NST: Done on days, was Reactive Betamethasone: completed GDM: No, IV / SL: none Special Social Circumstances: Segundo, pt's boyfriend at bedside very nice and supportive. Comments: Pt states non LBC, + movement. NO concerns during night. * Plan of Care - Snehal Talavera RN - 05/31/2009 2302 EDT Ante- Shift Note Reason for Admission: PTL/ ? abruption ZITA: 07/13/2009 Gestational Age (weeks): 33W6D Cervix: Vital signs: stable Patient Vital Signs in the past 8 hrs: BP Pulse Resp Temp SpO2 O2 Flow Rate (L/min) O2 Device FIO2 % 05/31/092006 112/68 mmHg 106 20 35.8 ??C (96.4 ??F) - - - - 05/31/09 1625 118/71 mmHg 104 20 36.3 ??C (97.3 ??F) - - - - Movement: Present Membranes intact: Yes Bleeding: No, Contractions: none . Pt denies NST: Wnl, reassuring Betamethasone: completed GDM: No, IV / SL: none Special Social Circumstances: Segundo, pt's boyfriend at bedside very nice and supportive. Comments: Patient showered this evening. Pt denies needs. Snehal Talavera RN * Plan of Care - Aparna Lange - 05/31/2009 1502 EDT Problem: NUTRITION/DIET Goal: Adequate Fluid & Diet To Meet Nutritional Needs Intervention: Assess ability to tolerate diet ordered Ante- Shift Note Reason for Admission: ZITA: 07/13/2009 Gestational Age (weeks): 33W6D Cervix: Vital signs: Stable Patient Vital Signs in the past 8 hrs: BP Pulse Resp Temp SpO2 O2 Flow Rate (L/min) O2 Device FIO2 % 05/31/09 1200 91/58 mmHg 112 20 36 ??C (96.8 ??F) 97 % - - - 05/31/09 0753 105/57 mmHg 101 16 36.2 ??C (97.2 ??F) 97 % - - - Movement: Present Membranes intact: Yes Bleeding: No, Contractions: Yes NST: Reactive Betamethasone: GDM:no IV / SL: None Special Social Circumstances: Comments: Mother had a good day...vss. nst reactive and reassuring. No bleeding, pain, leaking, or sam. Mother eats a lot of pizza. dISCUSSED eating a varied diet with her. Aparna Lange RN IBCLC * Plan of Care - Aparna Lange - 05/31/2009 1457 EDT Ante- Shift Note Reason for Admission: PTL/ ? abruption ZITA: 07/13/2009 Gestational Age (weeks): 33W6D Cervix: Vital signs: stable Patient Vital Signs in the past 8 hrs: BP Pulse Resp Temp SpO2 O2 Flow Rate (L/min) O2 Device FIO2 % 05/31/09 1200 91/58 mmHg 112 20 36 ??C (96.8 ??F) 97 % - - - 05/31/09 0753 105/57 mmHg 101 16 36.2 ??C (97.2 ??F) 97 % - - - Movement: Present Membranes intact: Yes Bleeding: No, Contractions: none . Pt denies NST: Wnl, reassuring Betamethasone: completed GDM: No, IV / SL: none Special Social Circumstances: Segundo, pt's boyfriend at bedside very nice and supportive. Comments: Stable day, down in wheelchair to cafeteria. Mother feeling well without pain * Plan of Care - Lizzette Pabon RN - 05/31/2009 0550 EDT Ante- Shift Note Reason for Admission: PTL/ ? abruption ZITA: 07/13/2009 Gestational Age (weeks): 33W6D Cervix: Vital signs: stable Patient Vital Signs in the past 8 hrs: BP Pulse Resp Temp SpO2 O2 Flow Rate (L/min) O2 Device FIO2 % 05/31/09 0548 90/54 mmHg 105 16 36.3 ??C (97.3 ??F) 97 % - - - 05/31/09 0051 93/54 mmHg 103 18 36 ??C (96.8 ??F) 98 % - - - Movement: Present Membranes intact: Yes Bleeding: No, Contractions: none . Pt denies NST: Not done this shift Betamethasone: completed GDM: No, IV / SL: none Special Social Circumstances: Segundo, pt's boyfriend at bedside very nice and supportive. Comments: Stable night- she has slept fairly well except for being awakened for VS * Plan of Care - Gavi Holland RN - 05/30/2009 2153 EDT Ante- Shift Note Reason for Admission: PTL/ ? abruption ZITA: 07/13/2009 Gestational Age (weeks): 33W5D Cervix: Vital signs: stable Patient Vital Signs in the past 8 hrs: BP Pulse Resp Temp SpO2 O2 Flow Rate (L/min) O2 Device FIO2 % 05/30/092014 105/64 mmHg 103 18 36.5 ??C (97.7 ??F) 97 % - - - 05/30/09 1600 92/58 mmHg 109 18 36.5 ??C (97.7 ??F) 99 % - - - Movement: Present Membranes intact: Yes Bleeding: No, Contractions: none . Pt denies NST: Reactive and reassuring. Betamethasone: completed GDM: No, IV / SL: none Special Social Circumstances: armida Raymond's boyfriend at bedside very nice and supportive. Comments: Pt denies any B,L,C and has no pain. VSS. She has had a good day, and is looking forward to discharge, at 35 weeks, approx. Next /Thursday. * Plan of Care - Aparna Lange - 05/30/2009 1447 EDT Ante- Shift Note Reason for Admission: PTL/ ? abruption ZITA: 07/13/2009 Gestational Age (weeks): 33W5D Cervix: Vital signs: stable Patient Vital Signs in the past 8 hrs: BP Pulse Resp Temp SpO2 O2 Flow Rate (L/min) O2 Device FIO2 % 05/30/09 1230 104/64 mmHg 94 20 36.1 ??C (97 ??F) 97 % - - - 05/30/09 0800 104/61 mmHg 103 16 36.2 ??C (97.2 ??F) 97 % - - - Movement: Present Membranes intact: Yes Bleeding: No, Contractions: none . Pt denies NST: Reactive and reassuring. Betamethasone: completed GDM: No, IV / SL: none Special Social Circumstances: armida Raymond's boyfriend at bedside very nice and supportive. Comments: Pt denies any B,L,C and has no pain. VSS. She has had a good day, and is looking forward to discharge, at 35 weeks, approx. Next /Thursday. * Plan of Care - Aparna Lange - 05/30/2009 6346 EDT Problem: RELATIONSHIP/COPING Goal: Patient & Family Adapt To Hospitalization Intervention: Assess support systems Data: Talked at length with [place], and mom re: living conditions, hopes for future. Dad is [place], and his family is ready to take mother and baby in to live with them. Finances are tight. Dadhas responsibilities to fulfill (not active duty) for approx 3 years in [place] army at low pay, which concerns him. Both he and the mom of baby are vegetarian. In order to get mother and baby to [facility], marriage needs to take place. Dad has [place] passport. Mom has [place] passport. Dad is Julius ([place] Voodoo) voodoo, while mother is not, and is Scientologist. Dad feels misunderstood on his voodoo, especially relating to his dreadlocks and his headcovering needs that are yazidi. Action: Offered emotional support to young couple. Listened to description of his home, and his yazidi beliefs. Mother should be meeting with delinquency prevention social worker. Response:Patient and fob felt heard and understood after our discussion. Talking about discharge at35 weeks, a week from /Thursday. Aparna Lange RN 05/30/2009 2:41 PM * Plan of Care - Lizzette Pabon RN - 05/30/2009 0610 EDT Ante- Shift Note Reason for Admission: PTL/ ? abruption ZITA: 07/13/2009 Gestational Age (weeks): 33W5D Cervix: Vital signs: stable Patient Vital Signs in the past 8 hrs: BP Pulse Resp Temp SpO2 O2 Flow Rate (L/min) O2 Device FIO2 % 05/30/09 0600 90/55 mmHg 96 18 36.5 ??C (97.7 ??F) 97 % - - - 05/30/09 0000 116/70 mmHg 108 18 36.1 ??C (97 ??F) 97 % - - - Movement: Present Membranes intact: Yes Bleeding: No, Contractions: none tonight. Pt denies NST: Not done this shift Betamethasone: completed GDM: No, IV / SL: none Special Social Circumstances: Segundo, pt's boyfriend at bedside very nice and supportive. Comments: Pt denies any B,L,C and has no more pain. She has slept well and denies needs. * Plan of Care - Lucila Banerjee - 05/29/2009 1920 EDT Ante- Shift Note Reason for Admission: PTL/ ? abruption ZITA: 07/13/2009 Gestational Age (weeks): 33W4D Cervix: Vital signs: stable Patient Vital Signs in the past 8 hrs: BP Pulse Resp Temp SpO2 O2 Flow Rate (L/min) O2 Device FIO2 % 05/29/09 1551 108/64 mmHg 100 18 36.6 ??C (97.9 ??F) - - - - 05/29/09 1133 110/67 mmHg 100 100 36.7 ??C (98.1 ??F) 100 % - - - Movement: Present Membranes intact: Yes Bleeding: No, Contractions: Entered into the shift with pt c/o pain on L hip 3-4 inches above the hip bone. Pt was then placed on the NST which was reactive, but showed pt to have @4 ctx in 60 min. NST: Reactive Betamethasone: completed GDM: No, IV / SL: none Special Social Circumstances: Segundo, pt's boyfriend at bedside very nice and supportive. Comments: No L, B, but pt continues to have the L hip pain and CTX. Pt instructed to wear her scd's more often and to inform staff of any changes in the current status. Pt verbalized understanding. * Plan of Care - Lucila Banerjee - 05/29/2009 1528 EDT 1530-Received report and assumed care of pt 1540-Told by [employer] pt called and stated she was having back pain. Evaluated pt who states her pain was a dull ache on her lower L back, and pointed to a spot 3-4 inches above her hip bone. Pt just cameback from an hour w/c ride and was getting settled back to bed. At this moment, uterus was soft, with active palpable movement. Pt encouraged to drink some water, lye down on L side and given [facility]. Will follow-up and continue to monitor pt. 1550- Pt states the thermacare felt good, but she also felt a CTX. Pt states this was the same feeling discomfort she had when she was admitted. NST started. 1610- NST reactive with a PS uterus. 2 Mild CTX noted and felt by pt. +FM and good FHR. HO paged myrtle notified. 1650- HO aware regarding NST. Pt states that the pain on the L side is still present, but with thermacare, feels fine. Pt noted mild CTX, and NST picked up 4-5 ctx in the hour. NST reactive with goodFM and HR baseline. Pt will continue to drink fluids, use the thermacare and rest on her L side fora while. Pt to call nurse if there is a change in status, intensity and frequency of CTX. Pt verbalized understanding and will rest in bed. No further complaints. * Plan of Care - Cordelia Landaverde RN - 05/29/2009 1355 EDT Ante- Shift Note Reason for Admission: PTL/ ? abruption ZITA: 07/13/2009 Gestational Age (weeks): 33W4D Cervix: Vital signs: stable Patient Vital Signs in the past 8 hrs: BP Pulse Resp Temp SpO2 O2 Flow Rate (L/min) O2 Device FIO2 % 05/29/09 1133 110/67 mmHg 100 100 36.7 ??C (98.1 ??F) 100 % - - - 05/29/09 0920 96/63 mmHg 99 16 36.6 ??C (97.9 ??F) 98 % - - - Movement: Present Membranes intact: Yes Bleeding: No, Contractions: not feeling any. Had one mild ctx 2 nst, on days NST: Reactive Betamethasone: completed GDM: No, IV / SL: none Special Social Circumstances: Segundo, pt's boyfriend at bedside very nice and supportive. Pt keeps asking if her CNM has called Dr Sanabria to say whether or not [facility] will accept her back at 34 or 35 weeks. Pt anxiously awaiting answer. Also awaiting Cardiology consult reguarding extended QT wave seen on her EKG yesterday Comments: No L,B,Cx. Patient does not feel contractions. Flagyl d/c'd yesterday. Pt room changed from 31 to 36 and is much happier with that. Pt instructed to wear her scd's more often. Pt verbalized understanding. * Plan of Care - Georgie Martinez - 05/29/2009 0745 EDT Ante- Shift Note Reason for Admission: PTL/ ? abruption ZITA: 07/13/2009 Gestational Age (weeks): 33W4D Cervix: Vital signs: stable Patient Vital Signs in the past 8 hrs: BP Pulse Resp Temp SpO2 O2 Flow Rate (L/min) O2 Device FIO2 % 05/29/09 0400 98/54 mmHg 97 18 36.2 ??C (97.2 ??F) 100 % - - - 05/29/09 0000 91/55 mmHg 107 18 36.4 ??C (97.5 ??F) 96 % - - - Movement: Present Membranes intact: Yes Bleeding: No, Contractions: not feeling any. Had one mild ctx on nst, on day NST: Reactive Betamethasone: completed GDM: No, IV / SL: none Special Social Circumstances: Segundo, pt's boyfriend at bedside very nice and supportive Comments: No L,B,Cx. Patient does not feel contractions. Flagyl d/c'd yesterday. Pt room changed from 31 to 36 and is much happier with that. Pt instructed to wear her scd's more often. Pt verbalized understanding. * Plan of Care - Lucila Banerjee - 05/28/2009 1542 EDT 1530-Received report and assumed care of pt * Plan of Care - Cordelia Landaverde RN - 05/28/2009 1245 EDT Ante- Shift Note Reason for Admission: PTL/ ? abruption ZITA: 07/13/2009 Gestational Age (weeks): 33W3D Cervix: Vital signs: stable Patient Vital Signs in the past 8 hrs: BP Pulse Resp Temp SpO2 O2 Flow Rate (L/min) O2 Device FIO2 % 05/28/09 0935 112/67 mmHg 100 18 36.9 ??C (98.4 ??F) 98 % - - - Movement: Present Membranes intact: Yes Bleeding: No, Contractions: not feeling any. Had one mild ctx on nst NST: Reactive Betamethasone: completed GDM: No, IV / SL: d/c'd yesterday Special Social Circumstances: Segundo pt's boyfriend at bedside very nice and supportive Comments: No L,B,Cx. Patient does not feel contractions. Flagyl d/c'd today. Pt room changed from 31 to 36 and is much happier with that. Pt instructed to wear her scd's more often. Pt verbalized understanding. * Plan of Care - Georgie Martinez - 05/28/2009 0505 EDT Ante- Shift Note Reason for Admission: PTL/ ? abruption ZITA: 07/13/2009 Gestational Age (weeks): 33W3D Cervix: Vital signs: Monitor BP Patient Vital Signs in the past 8 hrs: BP Pulse Resp Temp SpO2 O2 Flow Rate (L/min) O2 Device FIO2 % 05/28/09 0400 97/52 mmHg 96 16 36 ??C (96.8 ??F) - - - - 05/27/09 2358 97/54 mmHg 103 16 36.8 ??C (98.2 ??F) - - - - Movement: Present Membranes intact: Yes Bleeding: No, Contractions: not feeling any. Had one ctx on NST on day. NST: Reactive Betamethasone: completed GDM: No, IV / SL: Saline lock removed - catheter intact Special Social Circumstances: at bedside Comments: No L,B,Cx. Patient does not feel contractions. Plan to keep in hospital until 35 weeks as she does not live close to a hospital with NICU access. * Plan of Care - Corina Roman RN - 05/27/2009 2230 EDT Ante- Shift Note Reason for Admission: PTL/ ? abruption ZITA: 07/13/2009 Gestational Age (weeks): 33W2D Cervix: examined by Dr. Morales today Vital signs: Monitor BP Patient Vital Signs in the past 8 hrs: BP Pulse Resp Temp SpO2 O2 Flow Rate (L/min) O2 Device FIO2 % 05/27/09 2000 103/64 mmHg 97 18 36.7 ??C (98.1 ??F) 98 % - - - 05/27/09 1548 103/65 mmHg 106 20 36.4 ??C (97.5 ??F) 99 % - - - Movement: Present Membranes intact: Yes Bleeding: No, Contractions: not feeling any. Had one ctx on NST. NST: Reactive Betamethasone: completed GDM: No, IV / SL: Saline lock removed - catheter intact Special Social Circumstances: at bedside Comments: Pt showered this evening, bed changed. No L,B,Cx. Patient does not feel contractions. Plan to keep in hospital until 35 weeks as she does not live close to a hospital with NICU access. * Plan of Care - Kassidy Loyd RN - 05/27/2009 1435 EDT Ante- Shift Note Reason for Admission: PTL/ ? abruption ZITA: 07/13/2009 Gestational Age (weeks): 33W2D Cervix: examined by Dr. Morales today Vital signs: Monitor BP Patient Vital Signs in the past 8 hrs: BP Pulse Resp Temp SpO2 O2 Flow Rate (L/min) O2 Device FIO2 % 05/27/09 1215 90/53 mmHg 94 16 36.3 ??C (97.3 ??F) 98 % - - - 05/27/09 0815 98/51 mmHg 90 18 36.2 ??C (97.2 ??F) 99 % - - - Movement: Present Membranes intact: Yes Bleeding: No, Contractions: not feeling any. Had one ctx on NST. NST: Reactive Betamethasone: completed GDM: No, IV / SL: Saline lock removed - catheter intact Special Social Circumstances: at bedside Comments: Pt. had a stable day, she's very compliant with bedrest. Reinforced need to wear SCDs except when OOB to BR. Took wheelchair ride this afternoon. Patient does not feel contractions. Plan tokeep in hospital until 35 weeks as she does not live close to a hospital with NICU access. * Plan of Care - Mariella Arriaga - 05/26/20092005 EDT Ante- Shift Note Reason for Admission: PTL/ ? abruption ZITA: 07/13/2009 Gestational Age (weeks): 33W1D Cervix: examined by Dr. Morales today Vital signs: Monitor BP Patient Vital Signs in the past 8 hrs: BP Pulse Resp Temp SpO2 O2 Flow Rate (L/min) O2 Device FIO2 % 05/26/09 1558 101/65 mmHg 98 18 36.9 ??C (98.4 ??F) 97 % - - - 05/26/09 1220 94/51 mmHg 105 20 36.9 ??C (98.4 ??F) 97 % - - - Movement: Present Membranes intact: Yes Bleeding: No, Contractions: yes, pt. sam on NST earlier today, Dr. Morales notified and examined, cervix unchanged, (Pt. Does NOT feel contractions) States L&D told her she is able to retain a lot of urine Pt educated on urinated q2-3hrs and to stay well hydrated. Needs reinforcement. NST: Comment: borderline reactivity, attending satisfied with results no need to repeat Betamethasone: completed GDM: No, IV / SL: Saline lock patent and flushed this shift Special Social Circumstances: at bedside Comments: Pt. Had a stable day, she's very compliant with bedrest and SCD's, now has wheelchair pass. She does not feel contractions, however. Plan to keep in hospital as she does not live close to [facility] with NICU access. * Plan of Care - Kadie Alfonso RN - 05/26/2009 1500 EDT Ante- Shift Note Reason for Admission: PTL/ ? abruption ZITA: 07/13/2009 Gestational Age (weeks): 33W1D Cervix: examined by Dr. Morales today Vital signs: Monitor BP Patient Vital Signs in the past 8 hrs: BP Pulse Resp Temp SpO2 O2 Flow Rate (L/min) O2 Device FIO2 % 05/26/09 1220 94/51 mmHg 105 20 36.9 ??C (98.4 ??F) 97 % - - - 05/26/09 0750 106/61 mmHg 115 16 36.7 ??C (98.1 ??F) 99 % - - - Movement: Present Membranes intact: Yes Bleeding: No, Contractions: yes, pt. sam on NST, Dr. Morales notified and examined, cervix unchanged, (Pt. Does NOT feel contractions) NST: Comment: borderline reactivity, attending satisfied with results no need to repeat Betamethasone: completed GDM: No, IV / SL: Saline lock patent and flushed this shift Special Social Circumstances: at bedside Comments: Pt. Had a stable day, she's very compliant with bedrest and SCD's. She does not feel contractions, however. Plan to keep in hospital as she does not live close to a hospital with NICU access. * Plan of Care - Cordelia Landaverde, SIMONA - 05/26/2009 0847 EDT 0830: Dr Morales notified of pt ctxing q 5 min and not feeling them. Plan:if nst not reactive notify her. * Plan of Care - Georgie Martinez - 05/26/2009 0556 EDT Ante- Shift Note Reason for Admission: ZITA: 07/13/2009 Gestational Age (weeks): 33W1D Cervix: Vital signs: Monitor BP Patient Vital Signs in the past 8 hrs: BP Pulse Resp Temp SpO2 O2 Flow Rate (L/min) O2 Device FIO2 % 05/26/09 0500 88/45 mmHg 105 16 37.4 ??C (99.3 ??F) - - - - 05/26/09 0000 109/66 mmHg 101 18 37.2 ??C (99 ??F) - - - - Movement: Present Membranes intact: Yes Bleeding: No, Contractions: No NST: N/A Betamethasone: completed GDM: No, IV / SL: Saline lock patent and flushed this shift Special Social Circumstances: at bedside Comments: * Plan of Care - Adry Kaye RN - 05/25/2009 8933 EDT Ante- Shift Note Reason for Admission: ZITA: 07/13/2009 Gestational Age (weeks): 33W0D Cervix: Vital signs: Stable Patient Vital Signs in the past 8 hrs: BP Pulse Resp Temp SpO2 O2 Flow Rate (L/min) O2 Device FIO2 % 05/25/092014 106/62 mmHg 111 20 36.8 ??C (98.2 ??F) - - - - 05/25/092005 106/64 mmHg 122 18 36.4 ??C (97.5 ??F) - - - - 05/25/09 1500 104/50 mmHg 113 18 37.1 ??C (98.8 ??F) - - - - 05/25/09 1400 106/65 mmHg 106 18 - - - - - Movement: Present Membranes intact: Yes Bleeding: No, Contractions: No NST: N/A Betamethasone: GDM: No, IV / SL: Saline lock patent and flushed this shift Special Social Circumstances: Comments: * Plan of Care - Comfort Philippe RN - 05/25/2009 9073 EDT Problem: PAIN Goal: Patient's Pain/Discomfort Is Manageable Outcome: Ongoing D pt denies any pain at this time. A I explained the numeric pain scale. And the importance of letting the staff know that the character of the ctxs has changed so that an evaluation can be done for cervical change R pt states she understands * Plan of Care - Comfort Philippe RN - 05/25/2009 0745 EDT Problem: UTERUS/PLACENTA PERFUSION Goal: Absence Of FHR Pattern Outcome: Ongoing D 33 week gestation category 1 FHR tracing A continuous monitoring and documentation of tracing R tracing remains reactive. * Scanned Note-Null - Inpatient, Physician - 05/25/2009 0618 EDT * Scanned Note-Null - Inpatient, Physician - 05/25/2009 0618 EDT documented in this encounter Plan of Treatment Not on file documented as of this encounter Procedures Procedure Name Priority Date/Time Associated Diagnosis Comments ECG REPORT - SCANNED 06/05/2009 18:42 EDT ECG REPORT - SCANNED 06/04/2009 0:43 EDT EKG 12-LEAD Routine 05/28/2009 11:23 EDT INPATIENT ADD-ON Routine 05/25/2009 1:30 EDT INPATIENT ADD-ON STAT 05/25/2009 0:05 EDT EKG 12-LEAD STAT 05/24/2009 22:42 EDT INPATIENT ADD-ON Routine 05/24/2009 22:1 5 EDT URINE MICROSCOPIC Routine 05/24/2009 21: 06 EDT URINALYSIS WITH MICROSCOPIC IF POSITIVE STAT 05/24/2009 21:06 EDT KLEIHAUER BLOOD Routine 05/24/2009 21:06 EDT KLEIHAUER BLOOD STAT 05/24/2009 21:06 EDT DRUG SCREEN 6 STAT 05/24/2009 21:06 EDT PTT STAT 05/24/2009 21:06 EDT PROTIME STAT 05/24/2009 21:06 EDT FIBRINOGEN STAT 05/24/2009 21:06 EDT COMPLETE BLOOD COUNT STAT 05/24/2009 21:06 EDT TYPE AND SCREEN STAT 05/24/2009 21:06 EDT VARICELLA IGG ANTIBODY Routine 05/24/2009 21:06 EDT TSH Routine 05/24/2009 21:06 EDT T4 FREE Routine 05/24/2009 21:06 EDT CREATININE STAT 05/24/2009 21:06 EDT RUBELLA IGG ANTIBODY Routine 01/19/2009 RAPID HIV 1/2 ANTIGEN AND ANTIBODY, 4TH GENERATION Routine 01/19/2009 HEPATITIS B SURFACE ANTIGEN Routine 01/19/2009 COMPLETE BLOOD COUNT Routine 01/19/2009 ANTIBODY SCREEN Routine 01/19/2009 documented in this encounter Results * ECG REPORT - SCANNED (06/05/2009 18:42 EDT) 06/05/2009 18:4 2 EDT Narrative Procedure Note Inpatient, Physician - 06/05/2009 18:42 EDT Physician Inpatient MD PROCEDURE/MINOR S URGICAL ORDERABLES * ECG REPORT - SCANNED (06/04/2009 0:43 EDT) 06/04/2009 0:43 EDT Narrative Procedure Note Inpatient, Physician - 06/04/2009 0:43 EDT Physician Inpatient MD PROCEDURE/MINOR S URGICAL ORDERABLES * INPATIENT ADD-ON (05/25/2009 1:30 EDT) Tests to be added urine for GC/chlamydia [facility] Number for problems Not Given [facility] Accession number NEED STERILE SPEC [facility] 05/25/2009 1:30 EDT 05/25/2009 1:46 EDT Martina Culver MD HEMATOLOGY & PF4 ORDERABLES Performing Organization Address [facility] Co de Phone Number [facility] [address] [place] [address] * INPATIENT ADD-ON (05/25/2009 0:05 EDT) Tests to be added TSH TSH,Free T4 [facility] Accession number [id number] [facility] 05/25/2009 0:05 EDT 05/25/2009 0:48 EDT Martina Culver MD HEMATOLOGY & PF4 ORDERABLES Performing Organization Address [facility] Co de Phone Number [facility] [address] [place] [address] * INPATIENT ADD-ON (05/24/2009 22:15 EDT) Tests to be added varicella IgG [facility] Number for problems [id number] [facility] Accession number [id number] [facility] 05/24/2009 22:1 5 EDT 05/24/2009 22:26 EDT Martina Culver MD HEMATOLOGY & PF4 ORDERABLES Performing Organization Address [facility] Co de Phone Number [facility] [address] [place] [address] * TSH (05/24/2009 21:06 EDT) Pathologist [facility] TSH 1.47 0.35 - 5.00 uIU/ml [facility] 05/24/2009 21:0 6 EDT 05/24/2009 21:19 EDT Martina Culver MD CHEMISTRY & BLOOD GAS ORDERABLES Performing Organization Address [facility] Co de Phone Number [facility] [address] [place] [address] * T4 FREE (05/24/2009 21:06 EDT) Pathologist [facility] Free T4 1.1 0.8 - 1.8 ng/dL [facility] 05/24/2009 21:0 6 EDT 05/24/2009 21:19 EDT Martina Culver MD CHEMISTRY & BLOOD GAS ORDERABLES Performing Organization Address [facility] de Phone Number [facility] [address] [place] [address] * VARICELLA IGG ANTIBODY (05/24/2009 21:06 EDT) Pathologist [facility] Varicella IgG Ab Positive [facility] 05/24/2009 21:0 6 EDT 05/24/2009 21:19 EDT Martina Culver MD IMMUNOLOGY A ND SEROLOGY ORDERABLES Performing Organization Address [facility] Co de Phone Number [facility] [address] [place] [address] * (ABNORMAL) URINE MICROSCOPIC (05/24/2009 21:06 EDT) Pathologist [facility] WBC, UA less than 1 0 - 5 /HPF [facility] RBC, UA 1 to 5 0 - 5 /HPF [facility] Squam Epithel, UA Few(A) NS /HPF [facility] Renal Epithel, UA None seen NS /HPF [facility] Bacteria, UA None seen NS /HPF [facility] Crystals, UA None seen /HPF [facility] Hyaline Casts, UA None seen /LPF [facility] UA Comment Microscopic results are unreliable on urines unrefrig >2hrs or refrig >8hrs. [facility] 05/24/2009 21:0 6 EDT 05/24/2009 21:18 EDT Martina Culver MD URINALYSIS O RDERABLES Performing Organization Address [facility] Co de Phone Number [facility] [address] [place] [address] * KLEIHAUER BLOOD (05/24/2009 21:06 EDT) Pathologist [facility] Kleihauer blood No cells seen Rev'd by Pathologist ml F/M HEMORRHAGE [facility] 05/24/2009 21:0 6 EDT 05/24/2009 21:19 EDT Martina Culver MD HEMATOLOGY & PF4 ORDERABLES Performing Organization Address [facility] de Phone Number [facility] [address] [place] [address] * TYPE AND SCREEN (05/24/2009 21:06 EDT) Pathologist [facility] ABO B [facility] Rh Factor Positive [facility] Antibody Screen Negative [facility] Comment:SAMPLE EXPIRES ON AT 23:59 Blood specimen (specimen) 05/24/2009 21:06 EDT 05/24/2009 21:06 EDT Martina Culver MD BLOOD BANK T ESTS Performing Organization Address [facility] Co de Phone Number [facility] [address] [place] [address] * DRUG SCREEN 6 (05/24/2009 21:06 EDT) Amphetamine Screen, Urine Negative screen. Confirmation testing available upon request. Suitable for medical purposes only. Will not detect all drugs within class. Cutoff = 1000 ng/ml [facility] Barbiturate Screen, Urine Negative screen. Confirmation testing available upon request. Suitable for medical purposes only. Will not detect all drugs within class. Cutoff = 300 ng/ml [facility] Benzodiazepine Screen, Urine Negative screen. Confirmation testing available upon request. Suitable for medical purposes only. Will not detect all drugs within class. Cutoff = 300 ng/ml [facility] Cannabinoid Scrn, Ur Negative screen. Confirmation testing available upon request. Suitable for medical purposes only. Will not detect all drugs within class. Cutoff = 50 ng/ml [facility] Cocaine Metabolites, Ur Negative screen. Confirmation testing available upon request. Suitable for medical purposes only. Will not detect all drugs within class. Cutoff = 300 ng/ml [facility] Opiate Scrn, Ur Negative screen. Confirmation testing available upon request. Suitable for medical purposes only. Will not detect all drugs within class. Cutoff = 300 ng/ml Does not detect oxycodone, oxycontin or methadone. [facility] Urine specimen (specimen) 05/24/2009 21:06 EDT 05/24/2009 21:18 EDT Martina Culver MD URINALYSIS O RDERABLES Performing Organization Address [facility] Co de Phone Number [facility] [address] [place] [address] * PTT (05/24/2009 21:06 EDT) PTT 24 20 - 35 secs [facility] Comment:Therapeutic Heparin range: 60-100 seconds Blood specimen (specimen) 05/24/2009 21:06 EDT 05/24/2009 21:19 EDT Martina Culver MD HEMATOLOGY & PF4 ORDERABLES Performing Organization Address [facility] Co de Phone Number [facility] [address] [place] [address] * PROTIME (05/24/2009 21:06 EDT) Pro Time 13.4 12.2 - 15.5 secs [facility] I.N.R. 1.0 0.9 - 1.1 Ratio [facility] Comment: Moderate Intensity Coumadin INR = 2.0-3.0 Adjustments in anticoagulant therapy dose should be based upon the INR and NOT the Pro Time. Blood specimen (specimen) 05/24/2009 21:06 EDT 05/24/2009 21:19 EDT Martina Culver MD HEMATOLOGY & PF4 ORDERABLES Performing Organization Address [facility] Co de Phone Number [facility] [address] [place] [address] * (ABNORMAL) FIBRINOGEN (05/24/2009 21:06 EDT) Pathologist [facility] Fibrinogen 417(H) 220 - 410 mg/dl [facility] Blood specimen (specimen) 05/24/2009 21:06 EDT 05/24/2009 21:19 EDT Martina Culver MD HEMATOLOGY & PF4 ORDERABLES Performing Organization Address [facility] de Phone Number [facility] [address] [place] [address] * KLEIHAUER BLOOD (05/24/2009 21:06 EDT) Pathologist [facility] Kleihauer blood Duplicate Test Request ml F/M HEMORRHAGE [facility] Body fluid specimen (specimen) 05/24/2009 21:06 EDT 05/24/2009 21:22 EDT Martina Culver MD HEMATOLOGY & PF4 ORDERABLES Performing Organization Address [facility] de Phone Number [facility] [address] [place] [address] * (ABNORMAL) CREATININE (05/24/2009 21:06 EDT) Pathologist [facility] Creatinine 0.60(L) 0.7 - 1.5 mg/dl [facility] GFR, Calculated >60 ml/min/1.7 3m2 [facility] Blood specimen (specimen) 05/24/2009 21:06 EDT 05/24/2009 21:19 EDT Martina Culver MD CHEMISTRY & BLOOD GAS ORDERABLES [facility] [address] [place] [address] * (ABNORMAL) HEMAGRAM (05/24/2009 21:06 EDT) WBC 14.81(H) 4.0 - 12.4 K/cmm [facility] RBC 3.89 3.86 - 5.04 M/cmm [facility] Hemoglobin 11.0(L) 11.6 - 15.2 gm/dl [facility] HCT 31.9(L) 34.9 - 44.4 % [facility] MCV 82 81 - 98 fl [facility] MCH 28.2 26.7 - 33.3 pg [facility] MCHC 34.3 32.1 - 35.9 gm/dl [facility] PLT 181 141 - 320 K/cmm [facility] RDW-CV 13.1 11.7 - 14.6 % [facility] Blood specimen (specimen) 05/24/2009 21:06 EDT 05/24/2009 21:19 EDT Martina Culver MD HEMATOLOGY & PF4 ORDERABLES Performing Organization Address [facility] Co de Phone Number [facility] [address] [place] [address] * (ABNORMAL) URINALYSIS (05/24/2009 21:06 EDT) Color, UA Yellow [facility] Clarity, UA Clear [facility] Glucose, UA Neg NEG [facility] Bilirubin, UA Neg NEG [facility] Ketones, UA 1+(A) NEG [facility] Specific [place], Urine <1.005 1.001 - 1.035 [facility] Blood, UA 3+(A) NEG [facility] pH, UA 7.0 4.6 - 8.0 [facility] Protein, UA Neg NEG [facility] Urobilinogen, UA 0.2 0.2 - 1.0 E.U./dl [facility] Nitrite, UA Neg NEG [facility] Leuk Esterase 1+(A) NEG [facility] Urine specimen (specimen) 05/24/2009 21:06 EDT 05/24/2009 21:18 EDT Martina Culver MD URINALYSIS O RDERABLES Performing Organization Address [facility]/State/ZIP Co de Phone Number [facility] [address] [place] [address] * RUBELLA IGG ANTIBODY (01/19/2009) Rubella IgG Ab immune POINT OF CARE Blood specimen (specimen) Historical Provider CHEMISTRY & BLOOD GAS ORDERABLES Performing Organization Address [facility]/ZIP Co de Phone Number POINT OF CARE * RAPID HIV-1 (01/19/2009) Rapid HIV negative POINT OF CARE Blood specimen (specimen) Historical Provider CHEMISTRY & BLOOD GAS ORDERABLES Performing Organization Address [facility] Co de Phone Number POINT OF CARE * HEPATITIS B SURFACE ANTIGEN (01/19/2009) Hepatitis B Surface Ag negative POINT OF CARE Blood specimen (specimen) Historical Provider CHEMISTRY & BLOOD GAS ORDERABLES Performing Organization Address [facility] Co de Phone Number POINT OF CARE * HEMAGRAM (01/19/2009) Hemoglobin 12.7 12.0 - 16.0 g/dL POINT OF CARE HCT 36.1 POINT OF CARE Blood specimen (specimen) Historical Provider HEMATOLOGY & PF4 ORDERABLES Performing Organization Address [facility]/ZIP Co de Phone Number POINT OF CARE * ANTIBODY SCREEN (01/19/2009) Antibody Screen negative POINT OF CARE Blood specimen (specimen) Historical Provider BLOOD BANK TESTS POINT OF CARE documented in this encounter Visit Diagnoses Not on filedocumented in this encounter Administered Medications Inactive Administered Medications - up to 3 most recent administrations Medication Order MAR Action Action Date Dose Rate Site acetaminophen (TYLENOL) tablet 325-650 mg 325-650 mg, oral, EVERY 4 HOURS PRN, Starting on Thu05/25/09 at 0108, Until Thu05/25/09 at 2104, Pain, Routine Given 05/25/2009 13:48 EDT 650 mg Given 05/25/2009 1:19 EDT 650 mg betamethasone (CELESTONE SOLUSPAN) 6 mg/mL injection 12 mg 12 mg, intramuscular, EVERY 24 HOURS, 2 doses, First dose on Thu05/25/09 at 1730, Last dose on Thu05/26/09 at 1730, Routine Given 05/25/2009 17:30 EDT 12 mg lactated ringers (LR) infusion 150-200 mL/hr, intravenous, CONTINUOUS, Starting on Ivonne 05/24/09 at 2115, Until Thu05/25/09 at 2104, Routine Rate Documented 05/25/2009 15:00 EDT 150 mL/hr 150 mL/hr Rate Documented 05/25/2009 14:00 EDT 150 mL/hr 150 mL/hr Rate Documented 05/25/2009 13:00 EDT 150 mL/hr 150 mL/hr metronidazole (FLAGYL) tablet 500 mg 500 mg, oral, EVERY 12 HOURS, 14 doses, First dose on Thu05/25/09 at 0900, Last dose on Thu05/31/09 at 2100, Routine Given 05/25/2009 9:00 EDT 500 mg metronidazole (FLAGYL) tablet 500 mg 500 mg, oral, EVERY 12 HOURS, 12 doses, First dose on Thu05/25/09 at 2130, Last dose on Thu05/31/09 at 0900, Routine Given 05/27/2009 21:00 EDT 500 mg Given 05/27/2009 9:11 EDT 500 mg Given 05/26/2009 21:00 EDT 500 mg Multivitamin Vit-Iron Fumarate-FA (STUARTNATAL) 27-1 mg tablet 1 Tab 1 Tablet, oral, DAILY, First dose on 05/26/09 at 0900, Until Discontinued, Routine Given 05/26/2009 9:40 EDT 1 T ablet pediatric multivitamin (MARKUS CHEW VIT) chewable tablet 2 Tab 2 Tablet, oral, DAILY, First dose on Thu05/27/09 at 1215, Until Discontinued, Routine Given 06/07/2009 16:30 EDT 2 Tablets Given 06/06/2009 13:00 EDT 2 Tablets Given 06/05/2009 9:00 EDT 2 Tablets penicillin G potassium 2.5 Million Units in dextrose (D5W) 100 mL IVPB 2.5 Million Units, intravenous, Administer over 30 Minutes, EVERY 4 HOURS, 12 doses, First dose on Thu05/25/09 at 0230, Last dose on 05/26/09 at 2230, Routine Given 05/25/2009 10:30 EDT 2.5 Million Units Given 05/25/2009 6:30 EDT 2.5 Million Units Given 05/25/2009 2:04 EDT 2.5 Million Units penicillin G potassium 5 Million Units in dextrose (D5W) 150 mL IVPB 5 Million Units, intravenous, Administer over 30 Minutes, NOW X1, 1 dose, On Ivonne 05/24/09 at 2245, Routine Given 05/24/2009 22:30 EDT 5 Mill ion Units Sodium Citrate (CITRA PH) solution 30 mL 30 mL, oral, Once (Without Time Specified), 1 dose, Starting on Thu05/25/09 at 0217, Until Thu05/25/09 at 0220, Routine Given 05/25/2009 2:20 EDT mL Sodium Citrate (CITRA PH) solution 1 dose, Starting on Thu05/25/09 at 0220, Until Thu05/25/09 at 0220 documented in this encounter Historical Medications * This list may reflect changes made after this encounter. Medication Sig Dispensed Refills Start Date End Date VITS W-CA,FE,FA,<1MG, ( #2 ORAL) Take 1 Tab by mouth daily. added in this encounter Active and Recently Administered Medications Times are shown in EDT. Scheduled Medication Order 06/06/2009 06/07/2009 06/08/2009 pediatric multivitamin (MARKUS CHEW VIT) chewable tablet 2 Tab (CANCELED) 2 Tablet, oral, DAILY, First dose on 05/27/09 at 1215, Until Discontinued, Routine 0900 (Hold - Provider: Cordelia Landaverde RN - Reason: Patient/family refused - Comment: takes after breakfast)1300 (Given - Provider: Cordelia Landaverde RN) 1630 (Given - Provider: Katherin Gaxiola RN) 0900 (Not Given - Provider: Radha Emmanuel - Reason: Other) documented in this encounter Orders Medications Ordered That Leeroy ht Not Have Been Administered Count Last Ordered Date First Ordered Date acetaminophen (TYLENOL) tablet 650 mg 2 03/200905/24/2009 calcium carbonate (TUMS) 500 mg per chewable tablet Chew 2 Tab 1 05/25/2009 docusate sodium (COLACE) capsule 100 mg 1 0 05/25/2009 metronidazole (METROGEL) 0.7 5 % vaginal gel 1 05/25/2009 carboprost (HEMABATE) intram uscular injection 250 mcg 1 05/24/2009 ibuprofen (MOTRIN) tablet 400 mg 1 05/25/19 10 lactated ringers (LR) 500 mL BOLUS 1 2009 methylergonovine (METHERGINE ) injection 200 mcg 1 05/24/2009 misoprostol (CYTOTEC) tablet 200 mcg 1 02/2009 misoprostol (CYTOTEC) tablet 800 mcg 1 02/2009 EKG Orders Without Results Count Last Ordered D ate First Ordered Date EKG 12-LEAD 2 05/28/2009 05/24/2009 Diet Count Last Ordered Date First Orde red Date DIET REGULAR 1 05/25/2009 Nursing Count Last Ordered Date First Orde red Date REMOVE IV 1 05/27/2009 SHOWER 1 05/26/2009 WHEELCHAIR PRIVILEGE 1 05/26/2009 CHANGE IV TO SALINE LOCK 1 05/25/2009 Admission Count Last Ordered Date First Orde red Date NOTIFY PPS OF DISCHARGE COMPLETE 1 06/09/19 10 NOTIFY PPS OF ROOM CHANGE COMPLETE 1 2009 ADMIT TO INPATIENT 2 05/25/2009 0 PPS NOTIFICATION OF PATIENT ARRIVAL ON UNIT 1 05/25/2009 PPS NOTIFICATION OF SENDING PATIENT OFF THE UNIT 1 05/25/2009 Transfer Count Last Ordered Date First Orde red Date TRANSFER PATIENT 1 05/25/2009 Discharge Count Last Ordered Date First Orde red Date DISCHARGE PATIENT 2 06/08/2009 05/28/2009 documented in this encounter Care Teams Health And Safety Inspector Relationship Specialty Start Date End Date Butch Yanes MD [address] [place] [address] PCP - General 05/24/09 12/23/18 documented as of this encounter
--- OUTSIDE RECORDS SUMMARY | 2023-10-31 10:23 | XMS_ITS | Encounter Summary ---
[place] [address] Care Team Providers Care Dock Coordinator Name Role Phone Hieu Lombardi DNP Primary Care Provider [phone] Encounter Details Date Type Department Care Team (Latest Contact Info) Description 02/25/2023 Travel Social History Tobacco Use Types Packs/Day Years [...] on filedocumented in this encounter Care Teams Dock Coordinator Relationship Specialty Start Date End Date Hieu Lombardi DNP [address] [place] [address] [place] [address] PCP - General Family Medicine 11/21/22 documented as of this encounter
--- OUTSIDE RECORDS SUMMARY | 2023-10-31 10:23 | XMS_ITS | Encounter Summary ---
[place] [address] Care Team Providers Care Oil Field Pipeline Supervisor Name Role Phone Hieu Lombardi DNP Primary Care Provider [phone] Encounter Details Date Type Department Care Team (Latest Contact Info) Description 12/31/2022 Travel Social History Tobacco Use Types Packs/Day [...] on filedocumented in this encounter Care Teams Oil Field Pipeline Supervisor Relationship Specialty Start Date End Date Hieu Lombardi DNP [address] [place] [address] [place] [address] PCP - General Family Medicine 11/21/22 documented as of this encounter
--- OUTSIDE RECORDS SUMMARY | 2023-10-31 10:23 | XMS_ITS | Encounter Summary ---
Author Organization [facility] Address [address] [place] [address] Care Team Providers Care Web Content & Social Media Manager Name Role Phone Butch Yanes MD Primary Care Provider [phone] Encounter Details Date Type Department Care Team (Latest Contact Info) Description 06/14/2013 8:43 EDT - 06/14/2013 23:59 EDT Hospital Encounter [address] [address] Unknown, Provider, Discharge Disposition: Home or Self Care Social [...] Code Departure Means Destination Home or Self Intermediate documented in this encounter Plan of Treatment Not on file documented as of this encounter Visit Diagnoses Not on filedocumented in this encounter Care Teams Web Content & Social Media Manager Relationship Specialty Start Date End Date Butch Yanes MD [address] [place] [address] [place] [address] PCP - General 05/24/09 12/23/18 documented as of this encounter
--- OUTSIDE RECORDS SUMMARY | 2023-10-31 10:23 | XMS_ITS | Encounter Summary ---
Author Organization [facility] [place] [address] Care Team Providers Care Hatchery Employee Name Role Phone Unavailable Primary Care Provider Unavailabl e Encounter Details Date Type Department Care Team (Late st Contact Info) Description 11/14/2020 Tele[place] [phone] Alyssa Montgomery Social History Tobacco Use Types Packs/Day Years Used Date Smoking Tobacco: Never Assessed Sex and Gender Information Value Date Recorded Sex Assigned at Not on file Gender Identity Not on file Sexual Orientation Not on file documented as of this encounter Miscellaneous Notes * Telephone Encounter - Alyssa Montgomery - 11/14/2020 8:11 AM EDT Miya was seen by [facility] where the referral came from, they did no do any imaging, but she was in the ED the week before and had a CT done. Symptom review Yes No Do you have hearing loss that is worse in one ear? If so, which side? X/L Does your hearing get worse ONLY when or around the time you have a dizzy spell? If so, which side? x Does your ear feel full ONLY when or around the time you have a dizzy spell? If so, which side? x Does your ear ring ONLY when or around the time you have a dizzy spell? If so, which side? x Is your dizziness worse when you lie down or roll over in bed? x How long do dizzy spells last? (ie seconds, minutes, hours???.?) Min Have you been previously seen by Neurology for your dizziness? If so, who? Where? x Have you been previously seen an ENT doctor for your dizziness? If so, who? Where? x Have you been previously seen by PT for your dizziness? If so, who? Where? x Do you have a history of migraines or headaches? x Do you have blackout spells or have your passed out at any time from feeling dizzy? If so, how long before you regained consciousness? x Do you have balance problems on a regular basis? x Do you have visual changes with your dizziness? x Do you have weakness with your dizziness? If so, where? x Do you have numbness with your dizziness? If so, where? x What phrase best characterizes your dizziness? (italicize the response) -The world is spinning around -I feel off balance/lightheaded -I feel like the room is moving even though I'm completely still Records and Imaging 1. If patient has been seen by ENT, Neurology, or Physical Therapy previously, please send any summaries from these visits, if available. 2. If any imaging has been done (MRI brain, etc), please have images sent to us. documented in this encounter Plan of Treatment Not on file documented as of this encounter Visit Diagnoses Not on filedocumented in this encounter
--- OUTSIDE RECORDS SUMMARY | 2023-10-31 10:23 | XMS_ITS | Encounter Summary ---
Author Organization [facility] Address [address] [place] [address] Care Team Providers Care Quality Assurance Technician Name Role Phone Steve uBrns MD Primary Care Provider [phone] Encounter Details Date Type Department Care Team (Late st Contact Info) Description 07/28/2014 Results Only [facility] [phone] Nena Avilez, [address] [address] Social History Tobacco Use Types Packs/Day [...] Diagnosis Comments PAP TEST- RESULT ONLY Routine 07/28/2014 0:00 EDT documented in this encounter Results * PAP TEST- RESULT ONLY (07/28/2014 0:00 EDT) Pathology Report: CYTOPATHOLOGY REPORT Reports generated via electronic interface contain original data; however they are lacking the format of the original report. Caution should be taken when reading/interpreti ng unformatted reports. Name: ? MIYA GUILLEN ? Accession #: ? [id number] : ? 1990 (Age: 24) ??F ?Collect Date: ? 07/28/2014 Location: ? [facility] ? Receive Date: ? 07/31/2014 Provider: ?NENA AVILEZ CAREER TECHNICAL EDUCATION TEACHER Copy to: ?STEVE BURNS MD ? Specimen/Source: ?Pap Test, Cervix/Endocervix, ThinPrep Imaging System with manual evaluation Last Menstrual Period: ? 06/30/14 Hormonal/Contracep tive Status: ? Oral contraceptives ? SPECIMEN ADEQUACY ? Satisfactory for Evaluation - transformation zone component present GENERAL CATEGORIZATION ? Negative for Intraepithelial Lesion or Malignancy ? Document reviewed and electronically signed by: ? JAYJAY Her(ASCP) ? Report Date: ??08/07/2014 11:15 End of Report [facility] 07/28/2014 07/31/2014 Nena Avilez CAREER TECHNICAL EDUCATION TEACHER PATHOLOGY ORDERABLES [facility] [address] [place] [address] documented in this encounter Visit Diagnoses Not on filedocumented in this encounter Care Teams Quality Assurance Technician Relationship Specialty Start Date End Date Steve Burns MD [address] [place] [address] [place] [id number] PCP - General 05/24/09 12/23/18 documented as of this encounter
--- OUTSIDE RECORDS SUMMARY | 2023-10-31 10:23 | XMS_ITS | Clinical Summary ---
Author Organization [facility] [place] [address] Care Team Providers Care Manager Recruitment Name Role Phone Hieu Lombardi DNP Primary Care Provider [phone] Allergies Active Allergy Reactions Criticality Noted Date Comments Adhesive 12/31/2022 Banana Rash 06/25/2015 Cat Dander Other (See Comments) 12/31/2022 Dog Dander Other (See Comments) 12/31/2022 Formoterol Other (See Comments) 12/31/2022 House Dust Mite Other (See Comments) 12/31/2022 Loup 12/31/2022 Stone Fruit 08/27/2021 Facial swelling Budesonide-Formoterol Medium 05/20/2021 Gets rashes Transparent Dressings Rash 08/27/2021 Vancomycin Angioedema High 10/13/2015 Medications Medication Sig Dispensed Refills Start Date End Date Status albuteroL (Proventil) 2.5 mg /3 mL (0.083 %) Solution for Nebulization INHALE THE CONTENTS OF 1 VIAL VIA NEBULIZER EVERY 4 TO 6 HOURS DIRECTED NEEDED 11/22/2020 Active Trelegy Ellipta 100-62.5-25 mcg Disk with Device INHALE ONE PUFF BY MOUTH EVERY DAY 02/06/2021 Active montelukast (Singulair) 10 mg Tablet Take 10 mg by mouth nightly. Active albuteroL (Ventolin HFA) 90 mcg/actuation HFA Aerosol Inhaler 18 g, INHALE 2 PUFFS BY MOUTH EVERY 6 HOURS NEEDED FOR SHORTNESS OF BREATH OR WHEEZING, 0 Refill(s) 09/05/2022 Active amitriptyline (Elavil) 10 mg tablet Take 10 mg by mouth nightly. 10/08/2022 Active dupilumab (Dupixent Pen) 300 mg/2 mL Pen Injector Inject 300 mg subcutaneously every 14 days. 08/27/2022 Active gabapentin (Neurontin) 100 mg capsule Take 100 mg by mouth 3 times daily. 12/10/2022 Active Vienva 0.1-20 mg-mcg tablet 84 EA, 0 Refill(s), TAKE ONE TABLET BY MOUTH EVERY DAY CONTINUOUSLY (SKIP PLACEBO PILLS AND BEGIN THE NEXT PACK RIGHT AWAY), 0 Refill(s) 12/10/2022 Active dilTIAZem CD (Cardizem CD) 120 mg CD (ER) 24 hr casule Take 1 capsule by mouth daily. 90 capsule 3 02/25/2023 Active Active Problems Problem Noted Date Diagnosed Date labor 08/27/2021 History of premature deliver y, currently , third trimester 05/23/2021 Dizziness 03/05/2021 Tachycardia 03/05/2021 Previous delivery affecting , antepartum 09/03/2015 Lower urinary tract infectious disease 5 Resolved Problems Problem Noted Date Diagnosed Date Resolved Date Mastitis, obstetric, condition 10/12/2015 08/27/2021 Depression 04/17/2015 08/27/2021 History of obstetric problem 04/17/2015 08/27/2021 Social History Tobacco Use Types Packs/Day Years [...] Pulse 113 02/25/2023 9:46 AM EST Temperature 36.8 ??C (98.2 ??F) 08/28/2021 8:56 AM ED T Respiratory Rate 18 08/28/2021 8:56 AM EDT Oxygen Saturation 100% 02/25/2023 9:46 AM EST Inhaled Oxygen Concentration - - Weight 77.6 kg (171 lb) 02/25/2023 9:46 AM EST Height 165.1 cm (5' 5) 02/25/2023 9:46 AM EST Body Mass Index 28.46 02/25/2023 9:46 AM EST Plan of Treatment Health Maintenance Due Date Last Done Comments HIV screen 2008 Hepatitis C Screening 2008 Hepatitis B vaccine (0-59 yrs) (1) 2009 Tdap adult 2009 Tetanus vaccine 2009 HPV test 2020 PAP Smear 2020 Covid-19 Vaccine (3 - season) 10/25/202310/2020, 04/03/2020 Influenza (Flu) vaccine (1 o f 1 - Influenza standard series) 10/25/2023 Advance Directives * Attempt Cardiopulmonary Resuscitation - Inpatient (Latest Code Status on File) Date Activated Date Inactivated Comments 08/27/2021 12:09 AM 08/28/2021 11:49 AM Question Answer Comments Code Status decision made by: Patient * Full Code Date Activated Date Inactivated Comments 10/15/2015 3:45 PM 08/26/2021 11:59 PM Question Answer Comments Does patient have capacity to make decision: Yes * Full Code Date Activated Date Inactivated Comments 10/12/2015 10:36 PM 10/15/2015 3:45 PM Question Answer Comments Does patient have capacity to make decision: Yes * Full Code Date Activated Date Inactivated Comments 09/03/2015 5:25 PM 09/05/2015 6:18 PM Question Answer Comments Does patient have capacity to make decision: Yes Care Teams Manager Recruitment Relationship Specialty Start Date End Date Hieu Lombardi DNP [address] [place] [address] [place] [address] PCP - General Family Medicine 11/21/22
--- OUTSIDE RECORDS SUMMARY | 2023-10-31 10:23 | XMS_ITS | Encounter Summary ---
[place] [address] Care Team Providers Care Collateral Clerk Name Role Phone Unavailable Primary Care Provider Unavailabl e Encounter Details Date Type Department Care Team (Late st Contact Info) Description 10/16/2015 Notes Only Obstetrics [place] [phone] Aparna Olea RN Social History Tobacco Use Types Packs/Day Years Used Date Smoking Tobacco: Never Smokeless Tobacco: Never Alcohol Use Standard Drinks/Week Comments No 0 (1 standard drink = 0.6 oz pur e alcohol) Sex and Gender Information Value Date Recorded Sex Assigned at Not on file Gender Identity Not on file Sexual Orientation Not on file documented as of this encounter Progress Notes * Aparna Olea RN - 10/16/2015 2:05 PM EDT Prior Authorization (urgent) completed and faxed to [facility] for Linezolid. documented in this encounter Plan of Treatment Not on file documented as of this encounter Visit Diagnoses Not on filedocumented in this encounter
--- OUTSIDE RECORDS SUMMARY | 2023-10-31 10:23 | XMS_ITS | Encounter Summary ---
Author Organization Replaced By [facility] [place] [address] Care Team Providers Care Leadlighter Name Role Phone Hieu Lmobardi DNP Primary Care Provider [phone] Reason for Referral * Consultation (Routine) - Closed Specialty Diagnoses / Procedures Referred By Contcelio t Referred To Contact Sleep Center Diagnoses Sleep apnea, unspecified type Hieu Lombardi DNP [address] [place] [address] [facility] Sleep Medicine [address] [place] [address] Referral ID Status Reason Start Date Expiration Date V isits Requested Visits Authorized [id number] Closed Consult, Test & Treat PCP Updated and/or Approved 11/21/2022 11/21/2023 1 1 Encounter Details Date Type Department Care Team (Late st Contact Info) Description 11/21/2022 Transcribe Orders eDH Incoming Referrals [phone] Hieu Lombardi DNP [address] [place], [place] [id number] Sleep apnea, unspecified type Social History Tobacco Use Types Packs/Day Years [...] Associated Diagnoses Orde r Schedule Referral to [facility] Center Outpatient Referral Routine Sleep apnea, unspecified type Ordered: 11/21/2022 documented as of this encounter Visit Diagnoses Diagnosis Sleep apnea, unspecified type documented in this encounter Care Teams Leadlighter Relationship Specialty Start Date End Date Hieu Lombardi DNP [address] [place] [address] PCP - General Family Medicine 11/21/22 documented as of this encounter
--- OUTSIDE RECORDS SUMMARY | 2023-10-31 10:24 | XMS_ITS | Encounter Summary ---
[facility] [place] [address] Care Team Providers Care Cooking Teacher Name Role Phone Unavailable Primary Care Provider Unavailabl e Reason for Visit * Reason Comments Breast Problem Encounter Details Date Type Department Care Team ([facility] st Contact Info) Description 10/06/2015 7:18 PM EDT - 10/06/2015 9:24 PM EDT Emergency [place] [address] Stephanie Hernandez MD [address] [place] [address] [place] [address] Mastitis chronic, left Discharge Disposition: Home Social History Tobacco Use [...] Sign Reading Time Taken Comments Blood Pressure 108/69 10/06/2015 9:02 PM EDT Pulse 93 10/06/2015 9:02 PM EDT Temperature 37.8 ??C (100 ??F) 10/06/2015 9:02 PM EDT Respiratory Rate 16 10/06/2015 6:27 PM EDT Oxygen Saturation 98% 10/06/2015 9:02 PM EDT Inhaled Oxygen Concentration - - Weight 63.5 kg (140 lb) 10/06/2015 6:27 PM EDT Height - - Body Mass Index 23.3 09/21/2015 4:14 PM EDT documented in this encounter Discharge Instructions * Discharge Instructions* Tirso Cronin MD - 10/06/2015 9:18 PM EDT You came here for left breast pain. Our exam is consistent with mastitis. When you are on pump, please press on tender area of your left breast to make sure your milk duct is emptied. Please let yourlactation ada accommodation consultant know about this as well so that he/she can help you. We will give you medication called keflex Please take this antibiotic as prescribed starting from today. Please follow up with your obgyn as needed. If you start having fever, chills, sweats, and mass/new sensation on your left breast, please call your ob doctor or come into the emergency room. * Attachments The following attachments cannot be sent through Care Everywhere. * MASTITIS (AZERI) documented in this encounter Medications at Time of Discharge Medication Sig Dispensed Refills Start Date End Date cephalexin (KEFLEX) 500 mg Capsule Take 1 capsule by mouth 4 times daily for 10 days. 40 capsule 10/06/2015 10/15/2015 ferrous sulfate 325 mg (65 mg iron) Tablet, Delayed Release (E.C.) Take 1 tablet by mouth 2 times daily (with meals). 60 tablet 11 09/05/2015 05/20/2021 documented as of this encounter ED Notes * Luis Armando Quispe RN - 10/06/2015 9:24 PM EDT Given d/c instructions and Rx for Keflex. * Luis Armando Quispe RN - 10/06/2015 8:40 PM EDT Finished pumping. No change in pain; no further chills. * Luis Armando Quispe RN - 10/06/2015 8:00 PM EDT Breast pump provided by N so patient can pump * Stephanie Hernandez MD - 10/06/2015 7:39 PM EDT S Chief Complaint Patient presents with ??? Breast Problem HPI Pt is a 25 year old 4.5 week who presents to the ED for left breast pain. She visited obgyn 09/20 and was treated for mastitis for a 10 day course of diclofaxillin and her symptom was gone.Then today, her pain came back. She's being breast pumped daily. She has pain in right upper and lower quadrant of left breast (8/10). Her pain is constant. Nothing on her nipple and no blood in her breast discharge. Ibuprofen and cold compress didn't seem to help. She has subjective fever, some chill, myalgia, but no sweat. Allergies Allergen Reactions ??? Banana Rash Review of Systems Constitutional: Positive for chills and fever. Negative for fatigue. HENT: Negative. Eyes: Negative. Respiratory: Negative. Cardiovascular: Negative. Gastrointestinal: Negative. Genitourinary: Negative. Musculoskeletal: Negative. Skin: Negative. Neurological: Negative. Psychiatric/Behavioral: Negative. PMH Migraines Meds None Allergic None SH - denies cig, ETOH, or illicit substance abuse FH - no family hx breast cancer O Patient Vitals for the past 24 hrs: BP Temp Temp src Pulse Resp SpO2 Weight 10/06/15 1930 - 37.4 ??C (99.3 ??F) Oral - - - - 10/06/15 1827 112/75 37.3 ??C (99.1 ??F) Oral 98 16 100 % 63.5 kg (140 lb) Physical Exam Constitutional: She is oriented to person, place, and time. She appears well- developed and well-nourished. HENT: Head: Normocephalic and atraumatic. Right Ear: External ear normal. Left Ear: External ear normal. Nose: Nose normal. Mouth/Throat: Oropharynx is clear and moist. Eyes: Conjunctivae and EOM are normal. Pupils are equal, round, and reactive to light. Neck: Normal range of motion. Neck supple. Cardiovascular: Normal rate, regular rhythm and intact distal pulses. Exam reveals no gallop and nofriction rub. No murmur heard. Pulmonary/Chest: Effort normal and breath sounds normal. No respiratory distress. She has no wheezes. She has no rales. Abdominal: Soft. Bowel sounds are normal. She exhibits no distension. There is no tenderness. Thereis no rebound and no guarding. Genitourinary: Genitourinary Comments: No erythema on breast. Tenderness on palpation in the RUQ and RLQ of left breast. Firm. No mass, cyst, or fluctulence. Clear nipple Musculoskeletal: Normal range of motion. Neurological: She is alert and oriented to person, place, and time. She has normal reflexes. Skin: Skin is warm and dry. A&P Pt is a 25 year old 4.5 week who presents to the ED for left breast pain. Pt is not febrile. PE is notable for no mass, cyst, fluctulence on exam. 1) Breast pain- Consistent w/ mastitis. -Encourage pressing on her painful area of breast during to make sure milk duct is not full -Keflex outpatient to be taken if her symptoms don't improve. Procedures MDM ED Course: D/C her w/ keflex + prescription breast pump. Tirso Cronin MD Resident 10/07/15 1246 ED ATTENDING ATTESTATION NOTE The patient was seen in conjunction with Dr. Cronin, the resident physician. I have independently performed the martins portions of the history and physical exam. I have reviewed the nursing notes, vital signs, and all diagnostic studies personally including labs, imaging studies and EKGs. I have discussed the details of the case with the resident and agree with the assessment and plan as described in the resident note above unless noted otherwise below. Brief Summary: 25 year old woman who is 4.5 weeks post- (baby is in the NICU, born at 28 weeks) presents with recurrent left breast mastitis after completing a script for dicloxacillin 4 days ago. There is no abscess palpable on exam and on my bedside ultrasound I also see no abscess. There is no erythema. This could just be a plugged milk duct, but given her systemic symptoms of chills today and increasing pain, I will treat for mastitis with keflex. I also wrote a script for a hospital grade breast pump as her commercial pump is not draining her breasts adequately. She will f/u with OB in 2-3 days for re-evaluation. If her pain is not improving, she may need a radiology ultrasound to check for deep breast abscess. Final Assessment: Left breast early mastitis. Discharged home on Keflex. Stephanie Hernandez MD 10/07/15 [id number] * Luis Armando Quispe RN - 10/06/2015 7:24 PM EDT Left breast swollen and tender. No discharge from nipple. States she is pumping q 3 hr and the milkhas not changed in appearance. Daughter is in ICN, 4 weeks old. Needs to pump now. documented in this encounter Miscellaneous Notes * Consult Note - Zeinab Adler RN - 10/06/2015 9:24 PM EDT Opened in error. * ED Triage - Remedios Chambers RN - 10/06/2015 6:26 PM EDT Pt was treated for left Mastitis 2 weeks ago finishing her ABX 5 days. She had recovered and was feeling fine until today and now feels cold and achy with painful left breast think it is swollen butnot red yet. documented in this encounter Plan of Treatment Not on file documented as of this encounter Visit Diagnoses Diagnosis Mastitis chronic, left documented in this encounter Administered Medications Inactive Administered Medications - up to 3 most recent administrations Medication Order MAR Action Action Date Dose Rate Site acetaminophen (TYLENOL) tablet 1,000 mg 1,000 mg, Oral, ONCE, 1 dose, On 10/06/15 at 1956, Maximum dose of acetaminophen is 4000 mg from all sources in 24 hours., STAT Given 10/06/2015 7:57 PM EDT 1,000 mg cephalexin (KEFLEX) capsule 500 mg 500 mg, Oral, ONCE, 1 dose, On 10/06/15 at 2101, STAT, Indication for (Active or Suspected): Other (See comment) Given 10/06/2015 9:05 PM EDT 500 mg documented in this encounter Active and Recently Administered Medications Times are shown in EDT. Scheduled Medication Order 10/04/2015 10/05/2015 10/06/2015 acetaminophen (TYLENOL) tablet 1,000 mg (COMPLETED) 1,000 mg, Oral, ONCE, 1 dose, On 10/06/15 at 1956, Maximum dose of acetaminophen is 4000 mg from all sources in 24 hours., STAT 1956 (Given - Provid er: Luis Armando Quispe RN) cephalexin (KEFLEX) capsule 500 mg (COMPLETED) 500 mg, Oral, ONCE, 1 dose, On 10/06/15 at 2101, STAT, Indication for (Active or Suspected): Other (See comment) 2104 (Given - Provid er: Luis Armando Quispe RN) documented in this encounter
--- OUTSIDE RECORDS SUMMARY | 2023-10-31 10:24 | XMS_ITS | Encounter Summary ---
Author Organization [facility] [place] [address] Care Team Providers Care Power Operator Name Role Phone Unavailable Primary Care Provider Unavailabl e Reason for Visit * Reason Comments Ultrasound Ultrasound Finding Encounter Details Date Type Department Care Team (Latest Contact Info) Description 06/25/2015 10:00 AM EDT Procedure visit Obstetrics [place] [address] Abi Lezama MD [facility] DR OBSTETRICS [place] [address] History of labor, current , second trimester Social History Tobacco Use Types Packs/Day Years [...] Sign Reading Time Taken Comments Blood Pressure 118/71 06/25/2015 9:15 AM EDT Pulse - - Temperature - - Respiratory Rate - - Oxygen Saturation - - Inhaled Oxygen Concentration - - Weight 61 kg (134 lb 6.4 oz) 06/25/2015 9:15 AM EDT Height 165.1 cm (5' 5) 06/25/2015 9:15 AM EDT Body Mass Index 22.37 06/25/2015 9:15 AM EDT documented in this encounter Progress Notes * Abi Lezama MD - 06/25/2015 11:34 AM EDT Maternal Medicine follow up visit ZITA 11/23/15 at 18 3/7 week's gestation by LMP 02/17/16 Chief complaint: Here for ultrasound examination Subjective: Feels well. She denies bleeding, leaking of fluid, pain or contractions. She notes goodfetal movement. No pelvic discomfort. She was seen previously by Dr. Yan for consultation. The patient reports that she has started on 17 hydroxyprogesterone caproate injections. She had aneuploidy screening but does not know the results. Objective: Appears well Filed Vitals: 06/25/15 0915 BP: 118/71 Abdomen soft, nontender Ultrasound Growth appropriate for gestational age EGA 18 6/7 weeks Amniotic fluid volume normal Placenta posterior Presentation variable Morphology No structural abnormality Cervical length 3.7 cm without dynamic change or funneling Assessment: History of premature labor with advanced cervical dilation prior to . She was actually delivered at 37 weeks with induction of labor for advanced cervical dilation. No evidence today for cervical insufficiency. No evidence for a structural abnormality. Plan: I recommend one further cervical length ultrasound at 21-22 weeks. We scheduled that here butcan cancel it if the study can be done loclly. Abi Lezama MD 06/25/2015 Cc: Veronika Smiley CNM documented in this encounter Plan of Treatment Not on file documented as of this encounter Visit Diagnoses Diagnosis History of labor, current , second trimester documented in this encounter
--- OUTSIDE RECORDS SUMMARY | 2023-10-31 10:24 | XMS_ITS | Encounter Summary ---
Author Organization [facility] [place] [address] Care Team Providers Care Cardiovascular Surgeon Name Role Phone Unavailable Primary Care Provider Unavailabl e Encounter Details Date Type Department Care Team (Latest Contact Info) Description 07/24/2015 3:45 PM EDT - 07/24/2015 11:59 PM EDT Hospital Encounter [place] [id number] Abi Lezama MD [facility] DR OBSTETRICS [place] [address] History of labor, current , second trimester Discharge Disposition: Home Social History Tobacco Use [...] Sig Dispensed Refills Start Date End Date hydroxyprogesterone cap,ppres, 250 mg/mL (1 mL) Oil Inject 250 mg into the muscle once a week. 09/05/2015 documented as of this encounter Plan of Treatment Not on file documented as of this encounter Procedures Procedure Name Priority Date/Time Associated Diagnosis Comments US OB LIMITED Routine 07/24/2015 4:26 PM EDT History of labor, current , second trimester documented in this encounter Results * US OBs Limited (07/24/2015 4:26 PM EDT) Anatomical Region Laterality Modality Pelvis, Abdomen Ultrasound 07/24/2015 4:20 PM EDT Impressions 07/24/2015 4:39 PM EDT Impression 2nd Trimester - Cervical Length - Summary Single intrauterine with a gestational age of 22w 4d based on LMP ??(02/16/15) Cervical length measures 2.9 cm. No change with fundal pressure. No dynamic change observed. Amniotic fluid volume is Subjectively appropriate for gest age. I ??viewed the images and agree with the above interpretation. ?Abi Lezama MD Electronically Signed Final Report ?? 07/24/2015 04:38 pm Narrative 07/24/2015 4:39 PM EDT OBSTETRICS REPORT ?(Signed Final 07/24/2015 04:38 pm) Patient Info ID #: ? [id number] ?: ??[birth year] (25 yrs) Name: ? MIYA GUILLEN ? Visit Date: 07/24/2015 04:20 pm Performed By Performed By: ? Susana Portillo RDMS Attending: ?Teja DIEHL, Abi Seth Referred By: ?[facility] Service(s) Provided ??UOBLIM - Real - Position Only ( 1 or more fetuses) - ?? [id number] ??[id number] ??UOBTV - Viability - Cervical Length - Transvaginal - ??[id number] ??[id number] Indications ??history of ; E - Coordinates with ??gestational age or more than one week OB History Blood Type: ?? B+ ? Height: ??5'5 ?? Weight: ?? 125 ? BMI: ??20.8 : ?2 ? Term: ?? 1 Living: ? 1 Evaluation Num Of Fetuses: ? 1 Heart ? 159 Rate(bpm): Cardiac Activity: ?? Observed, normal rhythm Presentation: ? Cephalic Placenta: ? Posterior Amniotic Fluid REAL FV: ?Too early to evaluate -------- Biometry -------- Gestational Age LMP: ? 22w 4d ?Date: ??02/16/15 ? ZITA: ?? 11/23/15 Best: ?22w 4d ?? Det. By: ??LMP ??(02/16/15) ?ZITA: ?? 11/23/15 ------- Anatomy ------- Ventricles: ? Visualized Cerebellum: ? Visualized Posterior Fossa: ?Visualized Nuchal Fold: ?Not evaluated at this gestational age. Face: ? Nose/ Lips seen - WNL Heart: ?4- chamber view appears normal RVOT: ? Visualized LVOT: ? Visualized Diaphragm: ?Visualized Stomach: ?Visualized Kidneys: ?Visualized Bladder: ?Not Visualized Spine: ?Visualized Other: ??Nasal Bone: Present Cervix Uterus Adnexa Cervix Length: ?2.9 ??cm. Closed, ??Length= 3.4cm; with fundal pressure = 2.9cm Left Ovary Size(cm) ? 2.05 ?? x ?? 2.17 ?? x ??1.16 ?Vol(ml): 2.7 Visualized Right Ovary Size(cm) ? 2.62 ?? x ?? 1.65 ?? x ??1.75 ?Vol(ml): 4.0 Visualized Cul De Sac: ?? No fluid seen Procedure Note Abi Lezama MD - 07/24/2015 OBSTETRICS REPORT (Signed Final 07/24/2015 04:38 pm) Patient Info ID #: [id number] : [birth year] (25 yrs) Name: MIYA GUILLEN Visit Date: 07/24/2015 04:20 pm Performed By Performed By: Susana Portillo RDMS Attending: Abi Lezama MD Referred By: IVETTE BARCENAS Service(s) Provided UOBLIM - Real - Position Only ( 1 or more fetuses) - [id number] UOBTV - Viability - Cervical Length - Transvaginal - [id number] Indications history of ; E - Coordinates with gestational age or more than one week OB History Blood Type: B+ Height: 5'5 Weight: 125 BMI: 20.8 : 2 Term: 1 Livin Evaluation Num Of Fetuses: 1 Heart 159 Rate(bpm): Cardiac Activity: Observed, normal rhythm Presentation: Cephalic Placenta: Posterior Amniotic Fluid REAL FV: Too early to evaluate -------- Biometry -------- Gestational Age LMP: 22w 4d Date: 02/16/15 ZITA: 11/23/15 Best: 22w 4d Det. By: LMP (02/16/15) ZITA: 11/23/15 ------- Anatomy ------- Ventricles: Visualized Cerebellum: Visualized Posterior Fossa: Visualized Nuchal Fold: Not evaluated at this gestational age. Face: Nose/ Lips seen - WNL Heart: 4- chamber view appears normal RVOT: Visualized LVOT: Visualized Diaphragm: Visualized Stomach: Visualized Kidneys: Visualized Bladder: Not Visualized Spine: Visualized Other: Nasal Bone: Present Cervix Uterus Adnexa Cervix Length: 2.9 cm. Closed, Length= 3.4cm; with fundal pressure = 2.9cm Left Ovary Size(cm) 2.05 x 2.17 x 1.16 Vol(ml): 2.7 Visualized Right Ovary Size(cm) 2.62 x 1.65 x 1.75 Vol(ml): 4.0 Visualized Cul De Sac: No fluid seen IMPRESSION Impression 2nd Trimester - Cervical Length - Summary Single intrauterine with a gestational age of 22w 4d based on LMP (02/16/15) Cervical length measures 2.9 cm. No change with fundal pressure. No dynamic change observed. Amniotic fluid volume is Subjectively appropriate for gest age. I viewed the images and agree with the above interpretation. Abi Lezama MD Electronically Signed Final Report 07/24/2015 04:38 pm Abi Lezama MD IMG US OB ORDERABLES documented in this encounter Visit Diagnoses Diagnosis History of labor, current , second trimester documented in this encounter
--- OUTSIDE RECORDS SUMMARY | 2023-10-31 10:24 | XMS_ITS | Encounter Summary ---
Author Organization [facility] Address [facility] [place] [address] Care Team Providers Care Atmospheric Physics Professor Name Role Phone Unavailable Primary Care Provider Unavailabl e Reason for Visit * Reason Comments Advice Only * Consultation (Routine) - Closed Specialty Diagnoses / Procedures Referred By Renzo skaggs Referred To Contact Maternal and Medicine / Obstetrics and Gynecology Diagnoses Hx labor @ 33 wks, NSUD @ 37 wks Procedures Hx labor @ 33 wks, NSUD @ 37 wks Ivette Smiley CNM [address] [place] [address] [facility] Staff [employer]isub[employer] [address] [place] [address] Referral ID Status Reason Start Date Expiration Date Visits Re quested Visits Authorized [id number] Closed 05/21/2015 05/20/2016 1 1 Encounter Details Date Type Department Care Team (Late st Contact Info) Description 05/28/2015 3:45 PM EDT Office Visit Obstetrics [place] [address] Jose Antonio Yan MD [facility] DR OBSTETRICS [place] [address] History of labor Social History Tobacco Use Types Packs/Day Years [...] Sign Reading Time Taken Comments Blood Pressure 106/62 05/28/2015 3:46 PM EDT Pulse - - Temperature - - Respiratory Rate - - Oxygen Saturation - - Inhaled Oxygen Concentration - - Weight 58.4 kg (128 lb 11.2 oz) 05/28/2015 3:46 PM EDT Height 165.1 cm (5' 5) 05/28/2015 3:46 PM EDT Body Mass Index 21.42 05/28/2015 3:46 PM EDT documented in this encounter Progress Notes * Jose Antonio Yan MD - 05/28/2015 4:16 PM EDT Diagnosis/Maternal Medicine Consult Note Miya Guillen is a 25 y.o. year old female who is at 14w3d gestation. She is seen in consultation at the request of Ivette Smiley CNM for evaluation due to history of labor and advanced cervical dilation, without delivery. She was seen today for maternal- medicine consultation. Review of Systems Constitutional:feels well Movement: normal Contractions: none Leaking: None Bleeding: None There are no active problems to display for this patient. No past medical history on file. Past Surgical History Procedure Laterality Date ??? [place] tooth extraction No family history on file. Social History Occupational History ??? Not on file. Social History Main Topics ??? Smoking status: Never Smoker ??? Smokeless tobacco: Never Used ??? Alcohol Use: No ??? Drug Use: No ??? Sexual Activity: Partners: Male OB History Para Term AB TAB SAB Ectopic Multiple Living 2 1 1 1 # Outc Date GA Lbr Felice/2nd Wgt Sex Del Anes PTL Lv 1 Term 06/2009 37w5d 3.182 kg (7 lb 0.2 oz) F Vag-Spont Y Y 2 Current Current Outpatient Prescriptions Medication Sig Dispense Refill ??? pediatric multivitamin with iron Tablet, Chewable Take 2 tablets by mouth daily. No current facility-administered medications for this visit. No Known Allergies Physical Exam BP 106/62 mmHg Ht 165.1 cm (5' 5) Wt 58.378 kg (128 lb 11.2 oz) BMI 21.42 kg/m2 General: alert, well appearing, in no apparent distress, oriented to person, place and time HEENT: normocephalic, atraumatic Abdomen: Soft, nontender Extremities: no edema Neurologic:alert, oriented, normal speech, no focal findings or movement disorder noted Psychiatric: Affect is Appropriate. Assessment and Recommendations: 25 y.o. year old female at 14w3d weeks gestation, referred for counseling regarding historyof labor without delivery. The patient had advanced cervical dilation at 32 weeks (5cm), but stayed until 37w4d, when she was induced at [facility] for advanced cervical dilation. She does not meet the strict criteria regarding the use of progesterone for prevention of prior , as she ultimately delivered at term. I recommend ultraousnd here at [facility] at 18 weeks gestation for morphology and cervical length. It may be that vaginal progesterone or pessary would be more appropriate, or even cerclage, depending upon what her cervical length is at that time. That being said, it would not be unreasonable to consider 17-OHP, acknowledging our lack of data for this specific instance. I appreciate the opportunity to be involved in this patients care, and am available if further questions should arise. Jose Antonio YAN MD 05/28/2015 Cc: Ivette Smiley [address] [place] [address] , with copy of ultrasound report documented in this encounter Plan of Treatment Not on file documented as of this encounter Results * US OB Detailed Morphology (06/25/2015 9:57 AM EDT) Anatomical Region Laterality Modality Pelvis, Abdomen Ultrasound 06/25/2015 9:15 AM EDT Impressions 06/25/2015 11:02 AM EDT Impression 2nd Trimester - Detailed Morphology - Summary Single intrauterine with a gestational age of 18w 3d based on LMP ??(02/16/15). ?? Composite age based on the current ultrasound alone is 18w 6d. Current growth parameters are consistent with prior dating indicating normal growth. ??Amniotic fluid volume is Appropriate for gestational age. ??Normal cervical length. Detailed anatomic evaluation was performed and no structural abnormalities are noted. I ??viewed the images and agree with the above interpretation. ?Abi Lezama MD Electronically Signed Final Report ?? 06/25/2015 11:02 am Narrative 06/25/2015 11:02 AM EDT OBSTETRICS REPORT ?(Signed Final 06/25/2015 11:02 am) Patient Info ID #: ? [id number] ?: ??[birth year] (25 yrs) Name: ? MIYA ALCANTARERICK ? Visit Date: 06/25/2015 09:15 am Performed By Performed By: ? Amanda [facility], ??Joyce Attending: ?Teja DIEHL, Abi Seth Referred By: ?[facility]ETTE S[facility] Service(s) Provided ??UM - Detailed Morphology - Genetics - [id number] ?[id number] ??UOBTV - Viability - Cervical Length - Transvaginal - ??[id number] ??[id number] Indications ??morph; cervical length; E - Coordinates with ??gestational age or more than one week OB History Blood Type: ?? B+ ? Height: ??5'5 ?? Weight: ?? 125 ? BMI: ??20.8 : ?2 ? Term: ?? 1 Living: ? 1 Evaluation Num Of Fetuses: ? 1 Heart ? 163 Rate(bpm): Cardiac Activity: ?? Observed, normal rhythm Presentation: ? Variable Placenta: ? Posterior P. Cord Insertion: ??Within Normal Limits Amniotic Fluid REAL FV: ?Appropriate for gestational age -------- Biometry -------- BPD: ?41.5 ??mm ? G.Age: ?? 18w 4d OFD: ?56.4 ??mm HC: ?158.5 ??mm ? G.Age: ?? 18w 5d AC: ?137.6 ??mm ? G.Age: ?? 19w 1d FL: ? 28.3 ??mm ? G.Age: ?? 18w 5d HUM: ?27.7 ??mm ? G.Age: ?? 18w 6d CER: ?18.8 ??mm ? G.Age: ?? 18w 3d NFT: ? 3.1 ??mm NB: ? 4.31 ??mm LV: ?8.3 ??mm CM: ?6.7 ??mm CI: ?73.6 ??% ? 70 - 86 FL/HC: ? 17.9 ??% ? 15.8 - 18 HC/AC: ? 1.15 ?1.07 - 1.29 FL/BPD: ?68.2 ??% FL/AC: ? 20.6 ??% ? Est. FW: ? 264 ?? gm ? 0 lb 9 oz Gestational Age LMP: ? 18w 3d ?Date: ??02/16/15 ? ZITA: ?? 11/23/15 U/S Today: ? 18w 6d ?ZITA: ?? 11/20/15 Best: ?18w 3d ?? Det. By: ??LMP ??(02/16/15) ?ZITA: ?? 11/23/15 Targeted Anatomy Central Nervous System Calvarium: ?Within Normal Limits Intracranial: ? Within Normal Limits Cavum: ?Within Normal Limits Lat. Ventricles: ?Within Normal Limits Cerebellum: ? Within Normal Limits Choroid Plexus: ? Within Normal Limits Cisterna Magna: ? Within Normal Limits Spine Cervical: ? Visualized Thoracic: ? Visualized Lumbar: ? Visualized Sacral: ? Visualized Head/Neck Face: ? Within Normal Limits Lips: ? Within Normal Limits Nuchal Fold: ?Within Normal Limits Eyes: ? Normal ??lens / orbits Neck: ? Within Normal Limits Profile: ?Visualized Thorax Thoracic Contour: ? Ribs appear normal Lungs: ?Visualized Four Chamber: ? Within Normal Limits Cardiac Motion: ? Normal Rhythm R Outflow Tract: ?Visualized L Outflow Tract: ?Visualized Aortic Arch: ?Visualized Cardiac Perry: ? Visualized 3 Vessel View: ?Visualized Diaphragm: ?Visualized Abdomen Ventral Wall: ? Visualized Stomach: ?Visualized Situs: ?Normal Liver: ?Visualized Lt Kidney: ?Visualized Rt Kidney: ?Visualized Bladder: ?Visualized Bowel: ?Visualized Spleen: ? Limited Views Extremities Lt Humerus: ? Within Nomal Limits Rt Humerus: ? Within Normal Limits Lt Forearm: ? Within Normal Limits Rt Forearm: ? Within Normal Limits Lt Hand: ?Within Normal Limits Rt Hand: ?Within Normal Limits Lt Femur: ? Within Normal Limits Rt Femur: ? Within Normal Limits Lt Lower Leg: ? Within Normal Limits Rt Lower Leg: ? Within Normal Limits Lt Foot: ?Visualized Rt Foot: ?Visualized Other Umbilical Cord: ? 3 vessel cord Cord Insertion: ? WIthin Normal Limits Comment: ? Nasal Bone: ??Normal Cervix Uterus Adnexa Cervix No change with fundal pressure Within normal limits ?? 3.7 cm with and without fundal pressure Left Ovary Size(cm) ? 2.29 ?? x ?? 1.86 ?? x ??0.85 ?Vol(ml): 1.9 Visualized Right Ovary Size(cm) ? 3.43 ?? x ?? 1.56 ?? x ??2.03 ?Vol(ml): 5.7 Visualized Procedure Note Abi Lezama MD - 06/25/2015 OBSTETRICS REPORT (Signed Final 06/25/2015 11:02 am) Patient Info ID #: [id number] : [birth year] (25 yrs) Name: MIYA GUILLEN Visit Date: 06/25/2015 09:15 am Performed By Performed By: Joyce Patel RDMS Attending: Abi Lezama MD Referred By: IVETTE SMILEY [facility] Service(s) Provided [facility] - Detailed Morphology - Genetics - [id number] UOBTV - Viability - Cervical Length - Transvaginal - [id number] Indications morph; cervical length; E - Coordinates with gestational age or more than one week OB History Blood Type: B+ Height: 5'5 Weight: 125 BMI: 20.8 : 2 Term: 1 Livin Evaluation Num Of Fetuses: 1 Heart 163 Rate(bpm): Cardiac Activity: Observed, normal rhythm Presentation: Variable Placenta: Posterior P. Cord Insertion: Within Normal Limits Amniotic Fluid REAL FV: Appropriate for gestational age -------- Biometry -------- BPD: 41.5 mm G.Age: 18w 4d OFD: 56.4 mm HC: 158.5 mm G.Age: 18w 5d AC: 137.6 mm G.Age: 19w 1d FL: 28.3 mm G.Age: 18w 5d HUM: 27.7 mm G.Age: 18w 6d CER: 18.8 mm G.Age: 18w 3d NFT: 3.1 mm NB: 4.31 mm LV: 8.3 mm CM: 6.7 mm CI: 73.6 % 70 - 86 FL/HC: 17.9 % 15.8 - 18 HC/AC: 1.15 1.07 - 1.29 FL/BPD: 68.2 % FL/AC: 20.6 % 20 - 24 Est. FW: 264 gm 0 lb 9 oz Gestational Age LMP: 18w 3d Date: 02/16/15 ZITA: 11/23/15 U/S Today: 18w 6d ZITA: 11/20/15 Best: 18w 3d Det. By: LMP (02/16/15) ZITA: 11/23/15 Targeted Anatomy Central Nervous System Calvarium: Within Normal Limits Intracranial: Within Normal Limits Cavum: Within Normal Limits Lat. Ventricles: Within Normal Limits Cerebellum: Within Normal Limits Choroid Plexus: Within Normal Limits Cisterna Magna: Within Normal Limits Spine Cervical: Visualized Thoracic: Visualized Lumbar: Visualized Sacral: Visualized Head/Neck Face: Within Normal Limits Lips: Within Normal Limits Nuchal Fold: Within Normal Limits Eyes: Normal lens / orbits Neck: Within Normal Limits Profile: Visualized Thorax Thoracic Contour: Ribs appear normal Lungs: Visualized Four Chamber: Within Normal Limits Cardiac Motion: Normal Rhythm R Outflow Tract: Visualized L Outflow Tract: Visualized Aortic Arch: Visualized Cardiac Perry: Visualized 3 Vessel View: Visualized Diaphragm: Visualized Abdomen Ventral Wall: Visualized Stomach: Visualized Situs: Normal Liver: Visualized Lt Kidney: Visualized Rt Kidney: Visualized Bladder: Visualized Bowel: Visualized Spleen: Limited Views Extremities Lt Humerus: Within Nomal Limits Rt [...] Visualized Other Umbilical Cord: 3 vessel cord Cord Insertion: WIthin Normal Limits Comment: Nasal Bone: Normal Cervix Uterus Adnexa Cervix No change with fundal pressure Within normal limits 3.7 cm with and without fundal pressure Left Ovary Size(cm) 2.29 x 1.86 x 0.85 Vol(ml): 1.9 Visualized Right Ovary Size(cm) 3.43 x 1.56 x 2.03 Vol(ml): 5.7 Visualized IMPRESSION Impression 2nd Trimester - Detailed Morphology - Summary Single intrauterine with a gestational age of 18w 3d based on LMP (02/16/15). Composite age based on the current ultrasound alone is 18w 6d. Current growth parameters are consistent with prior dating indicating normal growth. Amniotic fluid volume is Appropriate for gestational age. Normal cervical length. Detailed anatomic evaluation was performed and no structural abnormalities are noted. I viewed the images and agree with the above interpretation. Abi Lezama MD Electronically Signed Final Report 06/25/2015 11:02 am E Aria Yan MD IMG US OB ORDERAB LES documented in this encounter Visit Diagnoses Diagnosis History of labor Personal history of pre-term labor History of labor Personal history of pre-term labor documented in this encounter
--- OUTSIDE RECORDS SUMMARY | 2023-10-31 10:24 | XMS_ITS | Encounter Summary ---
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 Name Role Phone Unavailable Primary Care Provider Unavailabl e Reason for Visit * Auth/Cert Specialty Diagnoses / Procedures Referred By Renzo t Referred To Contact Diagnoses S/P @ 28 WEEK GESTATION Procedures IPI Referral ID Status Reason Start Date Expiration Date Visits Re quested Visits Authorized [id number] 1 1 Encounter Details Date Type Department Care Team (Latest Contact Info) Description 09/03/2015 9:43 AM EDT - 09/05/2015 4:18 PM EDT [place] [address] Regina Whitfield MD [facility] [address] OBST[facility] [address] H/O section Discharge Disposition: Home Social History Tobacco Use [...] Sign Reading Time Taken Comments Blood Pressure 117/78 09/05/2015 8:39 AM EDT Pulse 112 09/05/2015 8:39 AM EDT Temperature 36.8 ??C (98.2 ??F) 09/05/2015 11:46 AM E DT Respiratory Rate 16 09/04/2015 7:49 PM EDT Oxygen Saturation 100% 09/05/2015 8:40 AM EDT Inhaled Oxygen Concentration - - Weight 69.4 kg (153 lb) 09/04/2015 12:06 AM EDT Height 165.1 cm (5' 5) 09/04/2015 12:06 AM EDT Body Mass Index 25.46 09/04/2015 12:06 AM EDT documented in this encounter Discharge Summaries * Kennedy Oseguera MD - 09/05/2015 12:31 PM EDT Images from the original note were not included. Discharge Summary Patient Name: Miya Guillen Patient Age: 25 y.o. 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 H/O section Resolved Hospital Problems Diagnosis Date Resolved No resolved problems to display. There are no active non-hospital problems to display for this patient. Operations/Major Procedures: PLTCS on 09/02/15 at [facility] Indication for Admission: postoperative transfer for indication History of Presentation: Miya Guillen is a 25 y.o. at 28w2d gestation being admitted for transfer. ?? HPI: Miya's was c/b prior delivery at 37 weeks in a that she was noted to haveadvanced dilation at 32 weeks to 5 cm. She spent time inpatient for monitoring during that admission, but eventually delivered at term. She was treated prophylactically with progesterone in this until 24 weeks for this history. ?? She presented the morning of 09/01 to [facility] with cramping and vaginal bleeding. She was found to be completely dilated on admission, and was given PCN for GBS ppx and betamethasone #1 at 1999.Shortly following that, she underwent amniotomy after [facility] had arrived preemptively for the infanttransfer. Following amniotomy, hand presentation was noted, followed by cord prolapse. She underwent an uncomplicated STAT low-transverse section via pfannenstiel incision under general anesthesia with EBL 600 mL. had Apgars 2, 7 and 8 and was transferred urgently via [facility]. She arrived at [facility] by transfer 12 hours postoperatively. ?? She feels well, pain well-controlled. Has not yet dangled/ambulated, pitts in place. Tolerating regular diet. Lochia minimal. Has passed flatus. Denies SOB, CP, F/C, N/V, leg pain. Hospital Course Including Delivery and Events Patient was [facility] in [facility]. Postoperatively the patient recovered asexpected. Pain was managed with oral medications. She was ambulating, tolerating regular diet, voiding freely, and passing flatus. She was establishing breast feeding. Her incision was well-healing with sutures in place. She was discharged to home in good condition and good spirits on post-operative day #2 with routine 2 and 6 week follow-up in place. Delivery Information This patient has no babies on file. EBL: Vital signs at Discharge: BP: 117/78, Heart Rate: 112, Temp: 36.8 ??C (98.2 ??F), Resp: 16, BMI (Calculated): 25.5 Height: 165.1 cm (5' 5) (09/04/155) Weight - Scale: 69.4 kg (153 lb) (09/04/155) Functional and Cognitive status: Cognitively intact, ambulating independently Important Studies and Lab Data: Recent Labs 09/03/15 1249 WBC 25.4* HGB 9.2* HCT 27.4* PLATELET 180 Studies: None Pending Studies and Lab Data: Placental pathology at [facility] Discharge Conditions/Prognosis: good Discharge to: [facility] Contraceptive Plans: Wishes to restart combined OCP at 6 weeks Allergies at Discharge: Allergies Allergen Reactions ??? Banana Rash Immunizations Given this Hospitalization: There is no immunization history on file for this patient. Discharge Medications: Your Medications UNREVIEWED medications - Discuss With Your Provider Dose Details hydroxyprogesterone cap(ppres) 250 mg/mL (1 mL) Oil Inject 250 mg into the muscle once a week. 250 mg Refills: 0 pediatric multivitamin with iron Chew Take 2 tablets by mouth daily. 2 tablet Refills: 0 Smoking Status at Discharge: History Smoking Status ??? Never Smoker Smokeless Tobacco ??? Never Used Instructions Given to Patient at Discharge: Patient Instructions Patient Instructions Follow-up: - you will have 2 week depression screening phone call - you will see [facility] at 6 weeks for visit Activity: Nothing in vagina for six weeks Do not lift more than 15 pounds for six weeks No driving for two weeks if you had a section or if you are taking narcotic medication. Please call your OB provider for the following: Fever more than 100.5 degrees Heavy bleeding that saturates a pad an hour Increased abdominal pain, nausea, shaking chills Redness, increased pain, discharge at incision if you had a delivery. Increased pain in the area of stitches outside your vagina. Hot, hard, tender areas on the breast and feeling generally unwell. Depression Contact Numbers: If you see an barrel lapper call: [phone] 9 am - 5 pm, after 5 pm If you see a laminating machine feeder call: [phone] all hours If you see a family practitioner call: [phone] all hours If you were transferred to our institution for delivery and cannot reach your local OB provider, call the barrel lapper numbers. Diet: You may resume your regular diet. Be sure you drink plenty of fluids. Please use rubi-colace 1-2 tablets twice daily for the entire time that you are taking pain medication to keep your bowel movements soft and regular. If you are constipated or have not had a bowel movement in 3 days, pleaseuse milk of magnesia (or miralax) as directed over the counter. Driving: Do not drive until you are off of all narcotic medications and you are not feeling pain; usually about 2 weeks. Shower/Bath: Showering is fine. Short baths are OK but you should avoid having any abdominal incision submerged for more than 10-15 minutes for the next 2 weeks. Wound Care: You have stitches holding your six incisions together. They do not need to be removed. For pain, we recommend you take the followin. acetaminophen 650mg every 4-6 hours around the clock while awake for as long as you are needing narcotic medications, then as needed after that. (Take no more than 3000mg of acetaminophen from allsources in 24 hours) 2. Ibuprofen 600 mg every 6 hours around the clock while awake for as long as you are needing narcotic medications, then as needed after that. 3. oxycodone 5mg as often as every 4 hours, when you need it for pain that breaks through the ibuprofen and acetaminophen. When you are no longer requiring oxycodone, if you have extra doses remaining you should contact your pharmacist to inquire about safe disposal. General Instructions None Discharge References/Attachments None documented in this encounter Discharge Instructions * Discharge Instructions* Comfort Alfonso RN - 09/05/2015 12:58 PM EDT Nursing Inpatient Progress C - Section Follow-up Follow-ups: Immunizations Received: [ ] MMR [ ] Tdap [ ] Inactivated Influenza Vaccine [ ] Other: Medications Received: [ ] Rhogam Given: (time/date) [ ] Depoprovera Given: (time/date) [ ] Other: Referrals: Additional Instructions: Maternal Discharge Instructions Rest: Although it may seem impossible to get enough rest, simple planning will help. Try to get at least one four hour block of uninterrupted sleep in 24 hours; then plan to rest, and/or sleep when your baby does. Limiting visitors also helps. Fathers and other family members can help by doing housework, caring for other children and/or helping limit visitors. Activity: After delivery, it is safe to climb stairs at home. Do not lift anything heavierthan your baby for two weeks. Do not drive for two weeks or while taking pain medicine that contains a narcotic as your reaction time may be decreased. Nutrition: Your diet following the of your baby is as important as it was before the baby wasborn. Drink a minimum of 6-8 glasses a day. Do not attempt to lose weight during the first six weeks. Continue taking your vitamins until they are gone. Lochia: (Flow) Your flow should be no heavier than a normal period. It will be bright red for 2-3 days and then pinkish and finally colorless. If your flow becomes bright red again, decrease your activity. Do not use tampons until your care provider advises you it is OK. Incision: Wash the incision with soap and water and pat dry. It is normal to have clear or pinkish fluid seep from the incision. Gauze pads or sanitary napkins may help to keep the incision dry if itis located in a fold under your tummy. If the incision has more redness, yellow drainage, or becomes more painful, contact the obstetrics clinic. Breast Care for Formula feeding mothers: Wear a well fitting bra to support your breasts. Ice packsto your breasts and Tylenol or Ibuprofen may be used to relieve discomfort from engorgement. Avoid stimulating your breasts: Do not let warm water from the shower fall on them; avoid holding your baby near your breasts until your milk begins to decrease and engorgement is relieved. Breast feeding mothers: Practice careful positioning and frequent feeding as demonstrated in the hospital. The printed information in your packet covers this in detail. Call your doctor or laminating machine feeder for: ??? Fever more than 100.5 ??? Heavy bleeding that saturates a pad an hour ??? Clots larger than a plum ??? Increased abdominal pain, nausea, shaking chills ??? Increased redness or soreness over your incision Breast with hot, hard, tender areas on the breast plus flu-like symptom ??? depression occurs in a large percentage of women. We encourage you to contact your provider or a member of the nursing staff if you are feeling so overwhelmed that you are unable to care for yourself or your baby. Keep your follow up appointment. You may call the [facility] at any time for guidance or for answers to questions that come up prior to you follow up appointment. Your [facility] Provider can be reached during office hours at ??? Midwives ??? Obstetricians ??? [facility] Follow-up Clinic AFTER OFFICE HOURS for the barrel lapper or laminating machine feeder over the horizon targeting supervisor Provider electronic signature confirms that discharge instructions were reviewed with the patient. A copy was printed and given to the patient. * Patient Instructions* Kennedy Oseguera MD - 09/05/2015 12:27 PM EDT Images from the original note were not included. Patient Instructions Follow-up: - you will have 2 week depression screening phone call - you will see [facility] at 6 weeks for visit Activity: Nothing in vagina for six weeks Do not lift more than 15 pounds for six weeks No driving for two weeks if you had a section or if you are taking narcotic medication. Please call your OB provider for the following: Fever more than 100.5 degrees Heavy bleeding that saturates a pad an hour Increased abdominal pain, nausea, shaking chills Redness, increased pain, discharge at incision if you had a delivery. Increased pain in the area of stitches outside your vagina. Hot, hard, tender areas on the breast and feeling generally unwell. Depression Contact Numbers: If you see an barrel lapper call: [phone] 9 am - 5 pm, after 5 pm If you see a laminating machine feeder call: [phone] all hours If you see a family practitioner call: [phone] all hours If you were transferred to our institution for delivery and cannot reach your local OB provider, call the barrel lapper numbers. Diet: You may resume your regular diet. Be sure you drink plenty of fluids. Please use rubi-colace 1-2 tablets twice daily for the entire time that you are taking pain medication to keep your bowel movements soft and regular. If you are constipated or have not had a bowel movement in 3 days, pleaseuse milk of magnesia (or miralax) as directed over the counter. Driving: Do not drive until you are off of all narcotic medications and you are not feeling pain; usually about 2 weeks. Shower/Bath: Showering is fine. Short baths are OK but you should avoid having any abdominal incision submerged for more than 10-15 minutes for the next 2 weeks. Wound Care: You have stitches holding your six incisions together. They do not need to be removed. For pain, we recommend you take the followin. acetaminophen 650mg every 4-6 hours around the clock while awake for as long as you are needing narcotic medications, then as needed after that. (Take no more than 3000mg of acetaminophen from allsources in 24 hours) 2. Ibuprofen 600 mg every 6 hours around the clock while awake for as long as you are needing narcotic medications, then as needed after that. 3. oxycodone 5mg as often as every 4 hours, when you need it for pain that breaks through the ibuprofen and acetaminophen. When you are no longer requiring oxycodone, if you have extra doses remaining you should contact your pharmacist to inquire about safe disposal. documented in this encounter Medications at Time of Discharge Medication Sig Dispensed Refills Start Date End Date ferrous sulfate 325 mg (65 mg iron) Tablet, Delayed Release (E.C.) Take 1 tablet by mouth 2 times daily (with meals). 60 tablet 11 09/05/2015 05/20/2021 ibuprofen (ADVIL;MOTRIN) 600 mg Tablet Take 1 tablet by mouth every 6 hours as needed for Pain. 30 tablet 12 09/05/2015 09/21/2015 senna-docusate (PERICOLACE) 8.6-50 mg Tablet Take 2 tablets by mouth 2 times daily. 60 tablet 11 09/05/2015 09/21/2015 documented as of this encounter Progress Notes * Kennedy Oseguera MD - 09/05/2015 6:21 AM EDT Delivery Note This patient has no babies on file. ID: Miya Guillen is a 25 y.o. who is POD #2 s/p STAT pLTCS at 28w2d at OSH for cord prolapse, transferred for indication, EBL 600 mL. Subjective: Doing well, pain well-controlled. Ambulating and voiding w/o issue. Pumping for in ICN, lochia minimal. Tolerating regular diet, has passed flatus. Review of Systems Denies SOB, CP, F/C, N/V, leg pain. Last Set of Vitals: Temp: [36.9 ??C (98.4 ??F)] Heart Rate: [108] Resp: [16] BP: (108)/(75) SpO2: -- Intake/Output: No longer being tabulated Weight - Scale: 69.4 kg (153 lb) Physical Exam Gen: NAD CV: RRR Pulm: CTAB Uterine Fundus: firm Incision: dressing removed, wound c/d/i, closed with sutures, no steri-strips, no erythema/drainage Ext: absent pitting Significant Labs: Recent Labs 09/03/15 1249 WBC 25.4* HGB 9.2* HCT 27.4* PLATELET 180 Assessment & Plan Miya Guillen is a 25 y.o. who is POD #2 s/p STAT pLTCS at 28w2d at OSH for cord prolapse, transferred for indication, EBL 600 mL. Recovering well. ?? Patient is doing well without problems. ??? Infant nutrition: pumping ??? Contraception: wishes to restart her COCP at 6 weeks ??? care: Pt will need 2 week depression screen call, and desires 6 week visit with [facility] ??? Dispo: Pt desires discharge to [facility] either today or tomorrow, will follow-up this afternoon Assessment Management of Additional Medical Issues ?? Will try to obtain records from OSH regarding work-up for her delivery This patient was seen and discussed on rounds. KENNEDY OSEGUERA MD PGY-3 09/05/2015 Associated attestation - Regina Whitfield MD - 09/06/2015 4:48 PM EDT I have seen and examined the patient, providing martins components as outlined below. ?? I have reviewed the resident???s above note; my evaluation of the patient is below: ?? POD#2 emergent CS for cord prolapse after PTL and cord prolapse. Pain not well controlled this am. Tolerating diet. Voiding. AFVSS Abdomen soft, NT Uterus NT Dressing CDI ?? I/R POD#2 CS Doing well D/c today Discussed future PTB risk and cervix length and 17 [facility]PC 16-20 weeks through 36 weeks. ?? REGINA WHITFIELD MD * Kennedy Oseguera MD - 09/04/2015 6:57 AM EDT Images from the original note were not included. Delivery Note This patient has no babies on file. ID: Miya Guillen is a 25 y.o. who is POD #1 s/p STAT pLTCS at 28w2d at OSH for cord prolapse, transferred for indication, EBL 600 mL. Subjective: Complains of nothing. Pain is wellcontrolled. She is tolerating diet well, urinating and ambulating well. Review of Systems Lochia: small Last Set of Vitals: Temp: [36.7 ??C (98.1 ??F)-37 ??C (98.6 ??F)] Heart Rate: [93-102] Resp: [16-18] BP: (104-117)/(66-79) SpO2: [98 %-100 %] Intake/Output: UOP: 100 mL/h the previous 6h Weight - Scale: 69.4 kg (153 lb) Physical Exam Gen: NAD CV: RRR Pulm: CTAB Uterine Fundus: firm Dressing: clean, dry and intact Incision: did not visualize Lochia: appropriate Significant Labs: Recent Labs 09/03/15 1249 WBC 25.4* HGB 9.2* HCT 27.4* PLATELET 180 Assessment & Plan Miya Guillen is a 25 y.o. who is POD #1 s/p STAT pLTCS at 28w2d at OSH for cord prolapse, transferred for indication, EBL 600 mL. ?? Patient is doing well without problems. ??? nutrition: breast ??? Contraception: no method ??? care: 2 and 6 week follow-up Assessment Management of Additional Medical Issues ?? Will try to obtain records from OSH regarding work-up for her delivery This patient was seen and discussed on rounds. KENNEDY OSEGUERA MD PGY-3 09/04/2015 Associated attestation - Regina Whitfield MD - 09/06/2015 4:48 PM EDT I have seen and examined the patient, providing martins components as outlined below. I have reviewed the resident???s above note; my evaluation of the patient is below: POD#1 emergent CS for cord prolapse after PTL and cord prolapse. Pain not well controlled this am. Tolerating diet. Voiding. AFVSS Abdomen soft, NT Uterus NT Dressing CDI I/R POD#1 CS Doing well Cont pain management Discussed future PTB risk and cervix length and 17 [facility]PC 16-20 weeks through 36 weeks. REGINA WHITFIELD MD * Courtney Julian RN - 09/04/2015 4:11 AM EDT 0400-Pt OOB to void. Voided 200 mL concentrated yellow urine. Reported to Dr. Mora. 0411-Bladder scan in room - 0 mL registered in bladder. Encouraged pt to increase PO intake and will reassess in next hour. Reported results to Dr. Mora. No action requested by this RN at this time. * Courtney Julian RN - 09/04/2015 2:30 AM EDT 0230-Entered pt room to encourage to pump again. Pt asleep and was not interested in pumping at this time. This RN asked if pt would be interested in another 30 minutes. Pt replied that she would pump at that time. Pt educated on importance of pumping every three hours regarding supply and demand. * Blanca Sellers RN - 09/03/2015 8:19 PM EDT 0948- Patient arrived to floor via stretcher from outside hospital. Assessment WDL, fundus firm and2 below umbilicus and bleeding WDL. Dressing remains c/d/I. PRN Toradol and oxycodone administered with good effect. Patient also continues on scheduled tylenol. Patient stand pivot to wheelchair with 2 assist. Patient visiting infant in N x2 this shift. Multiple attempts made to educate and encourage mom to start pumping. Mom educated on supply and demand and frequency of pumping necessary. Mom appears uninterested and states I'm so tired. scientific advisor RN to continue to encourage. Will continue to monitor. * Fidel Joseph RN - 09/03/2015 4:31 PM EDT Images from the original note were not included. Patient Name: Miya Guillen Patient Age: 25 y.o. Birthdate: 1990 Admit date: 09/03/2015 Attending Physician: Regina Whitfield MD The following assessment is derived from mother's interview and medical record. The information contained is pertinent to this 's mother as well. Fidel Joseph RN Case Manager Signed Nursing Progress Notes Date of Service: 09/03/2015 ??4:27 PM []Hide copied text []Hover for attribution information ? 09/03/15 1600?? General Information?? Infant's Name?? (Amy Merritt)?? Mother's Name?? (Miya Guillen)?? Other Caregivers Name/Relationship?? (Elvia Merritt / EBER)?? Admitted From?? ([facility] -transferred to [facility])?? Infant's Medical Care Provider?? (Shadia Adorno MD)?? Infant Feeding?? Infant Feeding Plan? Breast Pump Needed?? (haleigh symphony pump from [facility])?? Maternal General Information?? Marital Status, Mother of ?? single?? 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 Role Relationships/Living Environment?? Lives with?? (6 yr old Dolores- sib)?? Paternal Information?? 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 Self Perception/Coping Stress Tolerance?? Reason For Infant's Admission?? (28 4/7 premature infant)?? Coping Strategies?? ([facility]'s house bochure provided)?? Discharge Planning?? Anticipated Discharge Disposition?? home with parents?? Parents have car seat. They live together in [place]. This is their first child together. Record reviewed and patient discussed with multidisciplinary team. No discharge needs identified atthis time. Women'S Garment Fitter remains available as needed for coordination of care and discharge planning. ?? Fidel Joseph RN Intensive Care Nursery Women'S Garment FitterAdobe Block Maker of Care Management Phone:# [phone] Beeper: #[id number] Fax: # [phone] documented in this encounter H&P Notes * Kennedy Oseguera MD - 09/03/2015 4:42 PM EDT Obstetrical Term Admission Note Miya Guillen is a 25 y.o. at 28w2d gestation being admitted for transfer. HPI: Miya's was c/b prior delivery at 37 weeks in a that she was noted to haveadvanced dilation at 32 weeks to 5 cm. She spent time inpatient for monitoring during that admission, but eventually delivered at term. She was treated prophylactically with progesterone in this until 24 weeks for this history. She presented the morning of 09/01 to [facility] with cramping and vaginal bleeding. She was found to be completely dilated on admission, and was given PCN for GBS ppx and betamethasone #1 at 1999.Shortly following that, she underwent amniotomy after [facility] arrived preemptively for [facility] infanttransfer. Following amniotomy, hand presentation was noted, followed by cord prolapse. She underwent an uncomplicated STAT low-transverse section via pfannenstiel incision under general anesthesia with EBL 600 mL. had Apgars 2, 7 and 8 and was transferred urgently via [facility]. She arrived at [facility] by transfer 12 hours postoperatively. She feels well, pain well-controlled. Has not yet dangled/ambulated, pitts in place. Tolerating regular diet. Lochia minimal. Has passed flatus. Denies SOB, CP, F/C, N/V, leg pain. Review of Systems- Negative to complete review except as noted in the HPI. Active Hospital Problems Diagnosis ??? H/O section Resolved Hospital Problems Diagnosis Date Resolved No resolved problems to display. There are no active non-hospital problems to display for this patient. No past medical history on file. Past Surgical History Procedure Laterality Date ??? Fossil tooth extraction OB History Para Term AB TAB SAB Ectopic Multiple Living 2 1 1 1 # Outc Date GA Lbr Felice/2nd Wgt Sex Del Anes PTL Lv 1 Term 06/2009 37w5d 3.182 kg (7 lb 0.2 oz) F Vag-Spont Y Y 2 Current Prescriptions Prior to Admission Medication Sig Dispense Refill Last Dose ??? hydroxyprogesterone cap,ppres, 250 mg/mL (1 mL) Oil Inject 250 mg into the muscle once a week. Taking at Unknown time ??? pediatric multivitamin with iron Tablet, Chewable Take 2 tablets by mouth daily. Taking at Unknown time Allergies Allergen Reactions ??? Banana Rash No family history on file. Social History Occupational History ??? Not on file. Social History Main Topics ??? Smoking status: Never Smoker ??? Smokeless tobacco: Never Used ??? Alcohol use No ??? Drug use: No ??? Sexual activity: Yes Partners: Male Immunization History There is no immunization history on file for this patient. Last Set of Vitals: BP 113/66 Pulse 97 Temp 36.9 ??C (98.4 ??F) (Oral) Resp 16 SpO2 98% Physical Exam Gen: AAO, NAD Cardio: nl rhythm, S1, S2, no M/C/R/G Pulm: CTA BL, no W/C/R Abd: +BS, soft, NT, ND, gravid Incision: Dressing c/d/i, no erythema/drainage Ext: warm, well-perfused, no TINO or calf tenderness Lab Results Component Value Date ABORH B Pos 09/03/2015 HCT 27.4 (L) 09/03/2015 HGB 9.2 (L) 09/03/2015 MCV 80.1 09/03/2015 Preoperative hgb 11.3, plt 185 Assessment & Plan Miya Guillen is a 25 y.o. at 28w2d gestation being admitted for transfer. Recovering well, will order po pain medications, regular diet. Once ambulating will remove Pitts. Routine postoperative and cares. FeSO4 for anemia. Discuss contraception and follow-up. Anticipate d/c on POD #2-3. This patient was seen and discussed with Dr. Peck, Attending [employer]. KENNEDY OSEGUERA MD PGY-3 09/03/2015 Associated attestation - Aria Peck MD - 09/03/2015 7:52 PM EDT I saw and evaluated Miya Guillen with Dr. Oseguera and agree with his documentation as outlined, except correction of G's and P's as follows. In brief, Ms. Guillen is a 25 yo who is POD#0 s/p primary for cord prolapse in the setting of labor at 28w3d gestation, presenting as a transport from an OSH for indications. Upon arrival, Miya is doing well andstable without complaints. Her pain is controlled. Her VS wnl and abdomen softly distended with an incision that is C/D/I. She is Rh positive, Hgb 9.2. We plan to continue routine /postoperative care. Will further review OSH records to ensure normal labs and to evaluate if any rel evant labwork from the OSH admission such as urine tox screening and or placental pathology. Aria Peck MD documented in this encounter Miscellaneous Notes * Plan of Care - Remedios Jackson RN - 09/04/2015 12:16 PM EDT Problem: Following Section Delivery (Adult, Obstetrics) Goal: Signs and symptoms of listed potential problems will be absent or manageable (reference ( Following Section Delivery (Adult, Obstetrics)) CPG) Outcome: Ongoing (Interventions Implemented as Appropriate) 09/04/15 1211 Following Section Delivery Problems Assessed ( Following Section Delivery) all Problems Present ( Following Section Delivery) acute pain Problem: (Adult, NICU, [place], Obstetrics, Pediatric) Goal: Signs and symptoms of listed potential problems will be absent or manageable (reference ( (Adult, NICU, , Obstetrics, Pediatric)) CPG) Outcome: Ongoing (Interventions Implemented as Appropriate) 09/04/15 1211 Problems Assessed () all Problems Present () none Problem: General Plan of Care Goal: Individualization and Mutuality Outcome: Ongoing (Interventions Implemented as Appropriate) 09/04/15 0010 09/04/15 0546 09/04/15 1211 Individualization Individualize the Plan of Care: -- -- care Patient Specific Preferences -- Plans to pump -- Patient Specific Goals -- -- manage pain Patient Specific Interventions -- -- support, give prn pain meds. Mutuality/Individual Preferences What anxieties, fears or concerns do you have about your health or care? none -- -- What questions do you have about your health or care? none -- -- What information would help us give you more personalized care? none -- -- OUTCOME EVALUATION NOTE: OUTCOME SUMMARY: Patient stable. Ambulates in the room, independent with care. Dressing intact. Lochia wnl. Visit baby @ ICN, pumping independently. Pain well controlled with Motrin, Tylenol and Oxycodone. PLAN MOVING FORWARD: Monitor VS, give PRN meds, support. INDIVIDUALIZED FALL PREVENTION INTERVENTIONS: Patient-specific fall risk factors per assessment: [current deficits]: none Assistance [level of assistance required for transfers and ambulation]: Independnent Supervision [direct monitoring required during toileting and ADLs]: Independent Surveillance [continuous indirect monitoring]: Purposeful rounding Patient-specific fall prevention interventions for sensory deficits provided, if applicable: n/a CPG GOAL OUTCOME EVALUATION: Goal: Fall Prevention-Safe Patient Handling Outcome: Ongoing (Interventions Implemented as Appropriate) 09/04/1546 09/04/15 0846 Safety Interventions Safety Precautions/Fall Reduction low bed;family at bedside -- Musculoskeletal Interventions Activity/Level of Assistance -- up ad ron Positioning -- independent Self-Care Promotion -- personal routines for BADL/IADL promoted Richardson Fall Risk History of Falling -- 0 Secondary Diagnosis -- 0 Ambulatory Aids -- 0 Intravenous Therapy/Heparin/Saline Lock -- 20 Gait/Transferring -- 0 Mental Status -- 0 Score -- 20 OTHER Richardson Fall Risk Low -- Activity and Safety Assistive Device -- None Goal: Infection Control Outcome: Ongoing (Interventions Implemented as Appropriate) 09/04/1554509/04/15 0846 Safety Interventions Isolation Precautions -- standard precautions maintained Infection Prevention -- rest/sleep promoted;promote handwashing;nutrition promoted;hydration promoted Coping/Psychosocial Response Interventions Counseling emotional support provided;verbalization of feelings encouraged;understanding of situation facilitated -- Goal: Discharge Needs Assessment Outcome: Ongoing (Interventions Implemented as Appropriate) 09/04/15545 Discharge Needs Assessment Concerns to be Addressed no discharge needs identified Readmission Within the Last 30 Days no previous admission in last 30 days Equipment Needed After Discharge none Current Health Anticipated Changes Related to Illness none Self-Care Equipment Currently Used at Home none Living Environment Transportation Available car * Plan of Care - Courtney Julian RN - 09/04/2015 6:01 AM EDT Problem: General Plan of Care Goal: Plan of Care Review Outcome: Ongoing (Interventions Implemented as Appropriate) 09/04/15545 Coping/Psychosocial Response Interventions Plan of Care Reviewed with patient Plan of Care Review Plan of Care Outcome Status ongoing (interventions implemented as appropriate) Progress progress toward functional goals is gradual OUTCOME EVALUATION NOTE: OUTCOME SUMMARY: VSS. Fundus firm and lochia WDL. Dsg in place that is c/d/i. Pt pumping with minimal colostrum present at this time. Pain controlled with tylenol, motrin and oxycodone. Pt has visited baby in ICN x1. Pitts removed and pt voided 200 ml with bladder scan indicating 0 mL. Pt encouraged to increase PO intake. Up ad ron with steady gait. PLAN MOVING FORWARD: Maintain pain, encourage PO intake and ambulation. Pump q3 hr INDIVIDUALIZED FALL PREVENTION INTERVENTIONS: Patient-specific fall risk factors per assessment: [current deficits]: Post c/s day #2 Assistance [level of assistance required for transfers and ambulation]: indep Supervision [direct monitoring required during toileting and ADLs]: Up ad ron, steady gait Surveillance [continuous indirect monitoring]: Purposeful rounding Patient-specific fall prevention interventions for sensory deficits provided, if applicable: CPG GOAL OUTCOME EVALUATION: Goal: Individualization and Mutuality Outcome: Ongoing (Interventions Implemented as Appropriate) 09/04/15 0010 09/04/15545 Individualization Patient Specific Preferences -- Plans to pump Mutuality/Individual Preferences What anxieties, fears or concerns do you have about your health or care? none -- What questions do you have about your health or care? none -- What information would help us give you more personalized care? none -- Goal: Fall Prevention-Safe Patient Handling Outcome: Ongoing (Interventions Implemented as Appropriate) 09/04/15 0546 Safety Interventions Safety Precautions/Fall Reduction low bed;family at bedside Musculoskeletal Interventions Activity/Level of Assistance up ad ron Self-Care Promotion personal/BADL objects within reach;hygiene assistance provided;toileting offered Richardson Fall Risk History of Falling 0 Secondary Diagnosis 0 Ambulatory Aids 0 Intravenous Therapy/Heparin/Saline Lock 20 Gait/Transferring 0 Mental Status 0 Score 20 OTHER Richardson Fall Risk Low Goal: Infection Control Outcome: Ongoing (Interventions Implemented as Appropriate) 09/04/15 0546 Safety Interventions Isolation Precautions standard precautions maintained Infection Prevention hydration promoted;nutrition promoted;promote handwashing;rest/sleep promoted Coping/Psychosocial Response Interventions Counseling emotional support provided;verbalization of feelings encouraged;understanding of situation facilitated Goal: Discharge Needs Assessment Outcome: Ongoing (Interventions Implemented as Appropriate) 09/04/15545 Discharge Needs Assessment Concerns to be Addressed no discharge needs identified Readmission Within the Last 30 Days no previous admission in last 30 days Equipment Needed After Discharge none Current Health Anticipated Changes Related to Illness none Self-Care Equipment Currently Used at Home none Living Environment Transportation Available car documented in this encounter Plan of Treatment Not on file documented as of this encounter Procedures Procedure Name Priority Date/Time Associated Diagnosis Comments ABO/RH TYPING STAT 09/03/2015 1:08 PM EDT ANTIBODY SCREEN STAT 09/03/2015 1:08 PM EDT TYPE AND SCREEN ([facility]) STAT 09/03/2015 1:08 PM EDT SCAN, PERIPHERAL BLOOD STAT 09/03/2015 12:49 PM EDT HEMOGRAM STAT 09/03/2015 12:49 PM EDT DIFFERENTIAL, AUTOMATED STAT 09/03/2015 12:49 PM EDT CBC (WITH DIFF) STAT 09/03/2015 12:49 PM EDT documented in this encounter Results * Antibody screen (09/03/2015 1:08 PM EDT) Pathologist [facility] Ab Screen Interp Negative [facility] Expires at 2359 on: 09/06/2015 [facility] Blood specimen (specimen) 09/03/2015 1:08 PM EDT 09/03/2015 1:08 PM EDT Narrative Resulting Agency Comment Spec In Lab Regina Whitfield MD BLOOD BANK LAB ORD ERABLES [facility] [place] [address] * ABO/Rh Typing (09/03/2015 1:08 PM EDT) [facility] ABORH Type B Pos [facility] Blood specimen (specimen) 09/03/2015 1:08 PM EDT 09/03/2015 1:08 PM EDT Narrative Resulting Agency Comment Spec In Lab Regina Whitfield MD BLOOD BANK LAB ORD ERABLES Performing Organization Address City/[facility]/ZIP Co de Phone Number [facility] [place] [address] * Scan, Peripheral Blood (09/03/2015 12:49 PM EDT) [facility] Plat estimate Normal [facility] RBC Morphology Normal [facility] Blood specimen (specimen) 09/03/2015 12:49 PM EDT 09/03/2015 1:02 PM EDT Narrative Resulting Agency Comment Spec In Lab Regina Whitfield MD HEMATOLOGY ORDERAB LES Performing Organization Address City/[facility]/ZIP Co de Phone Number [facility] [place] [address] * (ABNORMAL) Differential, Automated (09/03/2015 12:49 PM EDT) [facility] Neutrophil % 90.8 % [facility] Neutrophil Absolute 23.01(H) 1.50 - 6.30 x10(3)/mc L [facility] Lymph % 3.9 % [facility] Lymphocytes Abs 1.0 1.0 - 3.6 x10(3)/[facility] Monocyte % 4.8 % [facility] Monocyte Abs 1.2(H) 0.2 - 1.0 x10(3)/[facility] Eos % 0.0 % [facility] Eosinophils Abs 0.0 0.0 - 0.5 x10(3)/[facility] Basophil % 0.0 % [facility] Baso Absolute 0.0 0.0 - 0.2 x10(3)/[facility] Immature Gran % 0.50 % [facility] Comment: Immature granulocytes(IG's)percentage and absolute count will include metamyelocytes, myelocytes, and promyelocytes. Blood smears from CBCs yielding IG's will be scanned manually for concordance. If this scan disagrees with the automated IG or if promyelocytes are noted, a manual differential will be performed. Immature Gran Absolute 0.13(H) 0.00 - 0.05 x10(3)/[facility] Blood specimen (specimen) 09/03/2015 12:49 PM EDT 09/03/2015 1:02 PM EDT Narrative Resulting Agency Comment Spec In Lab Regina Whitfield MD HEMATOLOGY ORDERAB LES [facility] [place] [address] * (ABNORMAL) Hemogram (09/03/2015 12:49 PM EDT) White Blood Cell 25.4(H) 4.0 - 10.0 x10(3)/[facility] Red Blood Cell 3.42(L) 3.93 - 5.22 x10(6)/[facility] Hemoglobin 9.2(L) 11.2 - 15.7 gm/dL [facility] Hematocrit 27.4(L) 34.0 - 45.0 % [facility] Mean Cell Volume 80.1 79.0 - 94.0 fL [facility] Mean Cell Hemoglobin 26.9 26.6 - 32.2 pg [facility] Mean Cell Hemoglobin Concentration 33.6 32.0 - 36.5 gm/dL [facility] Platelet 180 145 - 370 x10(3)/mc L [facility] RDW Standard Deviation 37.8 35.0 - 46.0 fL [facility] RDW coefficient of variation 13.0 10.9 - 14.4 % [facility] Mean Platelet Volume 10.6 9.0 - 12.0 fL [facility] Blood specimen (specimen) 09/03/2015 12:49 PM EDT 09/03/2015 1:02 PM EDT Narrative Resulting Agency Comment Spec In Lab Regina Whitfield MD HEMATOLOGY ORDERAB LES Performing Organization Address City/State/[facility] Co de Phone Number [facility] [place] [phone] documented in this encounter Visit Diagnoses Diagnosis H/O section Other postprocedural status H/O section Other postprocedural status documented in this encounter Admitting Diagnoses Diagnosis H/O section Other postprocedural status documented in this encounter Administered Medications Inactive Administered Medications - up to 3 most recent administrations Medication Order MAR Action Action Date Dose Rate Site acetaminophen (TYLENOL) tablet 1,000 mg 1,000 mg, Oral, EVERY 6 HOURS SCHEDULED, First dose on Thu09/03/15 at 1300, Until Discontinued, Maximum dose of acetaminophen is 4000 mg from all sources in 24 hours., Routine Given 09/04/2015 6:35 PM EDT 1,000 mg Given 09/04/2015 9:39 AM EDT 1,000 mg Given 09/04/2015 3:34 AM EDT 1,000 mg ferrous sulfate EC tablet 325 mg 325 mg, Oral, 2 TIMES DAILY WITH MEALS, First dose on Thu09/03/15 at 1730, Until Discontinued, DO NOT CRUSH OR OPEN. Take with food or a glass of water., Routine Given 09/05/2015 10:51 AM EDT 325 mg Given 09/04/2015 6:34 PM EDT 325 mg Given 09/04/2015 8:44 AM EDT 325 mg ibuprofen (ADVIL;MOTRIN) tablet 600 mg 600 mg, Oral, EVERY 6 HOURS PRN, Starting on Thu09/04/15 at 0408, Until Thu09/05/15 at 1818, Pain, Administer orally with milk or food to minimize GI irritation. Maximum dose of 3200 mg from all sources in 24 hours, Routine Given 09/05/2015 10:51 AM EDT 600 mg Given 09/05/2015 12:40 AM EDT 600 mg Given 09/04/2015 1:26 PM EDT 600 mg ketorolac (TORADOL) injection 15 mg 15 mg, Intravenous, EVERY 6 HOURS PRN, 3 doses, Starting on Thu09/03/15 at 1232, Until Thu09/04/15 at 0408, Pain, - Mild to moderate pain (pain scale 1-6). - Stop after 24 hours then start ibuprofen orally., Recovery (Recovery-Hospital Unit), Routine Given 09/03/2015 10:03 PM EDT 15 mg Given 09/03/2015 3:51 PM EDT 15 mg oxyCODONE (ROXICODONE) immediate release tablet 5 mg 5 mg, Oral, EVERY 4 HOURS PRN, Starting on Thu09/03/15 at 1232, Until Thu09/05/15 at 1818, Pain, - Moderate to severe pain (pain scale 4-10). - May repeat once in 30 minutes if ineffective., Recovery (Recovery-Hospital Unit), Routine Given 09/04/2015 6:34 PM EDT 5 mg Given 09/04/2015 9:39 AM EDT 5 mg Given 09/04/2015 4:10 AM EDT 5 mg senna-docusate (PERICOLACE) 8.6-50 mg per tablet 2 tablet 2 tablet, Oral, 2 TIMES DAILY, First dose on Thu09/03/15 at 1300, Until Discontinued, Administer to achieve 1 soft bowel movement daily without straining, Routine Given 09/04/2015 8:44 AM EDT 2 tablets Given 09/03/2015 10:02 PM EDT 2 tablets Given 09/03/2015 1:24 PM EDT 2 tablets documented in this encounter Active and Recently Administered Medications Times are shown in EDT. Scheduled Medication Order 09/03/2015 09/04/2015 09/05/2015 acetaminophen (TYLENOL) tablet 1,000 mg 1,000 mg, Oral, EVERY 6 HOURS SCHEDULED, First dose on Thu09/03/15 at 1300, Until Discontinued, Maximum dose of acetaminophen is 4000 mg from all sources in 24 hours., Routine 1323 (Given - Provider: Blanca Sellers RN)1918 (Given - Provider: Blanca Sellers RN) 0334 (Given - Provider: Courtney Julian RN)0939 (Given - Provider: Remedios Jackson RN)1835 (Given - Provider: Remedios Jackson RN)2100 (Not Given - Provider: Comfort Larry RN - Reason: Patient/family refused) 0300 (Due - Provider: Harinder Aguilar [facility])0900 (Due - Provider: Harinder Aguilar [facility])1500 (Due - Provider: Harinder Aguilar [facility]) ferrous sulfate EC tablet 325 mg 325 mg, Oral, 2 TIMES DAILY WITH MEALS, First dose on Thu09/03/15 at 1730, Until Discontinued, DO NOT CRUSH OR OPEN. Take with food or a glass of water., Routine 191 (Given - Provider: Blanca Sellers RN) 0844 (Given - Provider: Remedios Jackson RN)1834 (Given - Provider: Remedios Jackson RN) 1051 (Given - Provider: Naa Salamanca RN) senna-docusate (PERICOLACE) 8.6-50 mg per tablet 2 tablet 2 tablet, Oral, 2 TIMES DAILY, First dose on Thu09/03/15 at 1300, Until Discontinued, Administer to achieve 1 soft bowel movement daily without straining, Routine 1324 (Given - Provider: Blanca Sellers RN)2202 (Given - Provider: Courtney Julian RN) 0844 (Given - Provider: Remedios Jackson RN)2100 (Not Given - Provider: Comfort Larry RN - Reason: Patient/family refused) 0900 (Due) PRN Medication Order 09/03/2015 09/04/2015 09/05/2015 ibuprofen (ADVIL;MOTRIN) tablet 600 mg 600 mg, Oral, EVERY 6 HOURS PRN, Starting on Thu09/04/15 at 0408, Until Thu09/05/15 at 1818, Pain, Administer orally with milk or food to minimize GI irritation. Maximum dose of 3200 mg from all sources in 24 hours, Routine 0614 (Given - Provider: Courtney Julian RN)1326 (Given - Provider: Remedios Jackson, SIMONA) 0040 (Given - Provider: Comfort Larry RN)1051 (Given - Provider: Naa Salamanca RN) ketorolac (TORADOL) injection 15 mg (CANCELED)(Linked Group 1) 15 mg, Intravenous, EVERY 6 HOURS PRN, 3 doses, Starting on Thu09/03/15 at 1232, Until Thu09/04/15 at 0408, Pain, - Mild to moderate pain (pain scale 1-6). - Stop after 24 hours then start ibuprofen orally., Recovery (Recovery-Hospital Unit), Routine 1551 (Given - Provider: Blanca Sellers RN)2203 (Given - Provider: Courtney Julian RN) oxyCODONE (ROXICODONE) immediate release tablet 5 mg 5 mg, Oral, EVERY 4 HOURS PRN, Starting on Thu09/03/15 at 1232, Until Thu09/05/15 at 1818, Pain, - Moderate to severe pain (pain scale 4-10). - May repeat once in 30 minutes if ineffective., Recovery (Recovery-Hospital Unit), Routine 1323 (Given - Provider: Blanca Sellers RN)2202 (Given - Provider: Courtney Julian RN) 0410 (Given - Provider: Courtney Julian RN)0939 (Given - Provider: Remedios Jackson, SIMONA)1834 (Given - Provider: Remedios Jackson, SIMONA) polyethylene glycol (MIRALAX) packet 17 g 17 g, Oral, DAILY PRN, Starting on Thu09/03/15 at 1232, Until Thu09/05/15 at 1818, Constipation, Routine Linked Groups Order Group 1: ketorolac (TORADOL) injection 15 mg (CANCELED)Jump to med 15 mg, Intravenous, EVERY 6 HOURS PRN, 3 doses, Starting on Thu09/03/15 at 1232, Until Thu09/04/15 at 0408, Pain, - Mild to moderate pain (pain scale 1-6). - Stop after 24 hours then start ibuprofen orally., Recovery (Recovery-Hospital Unit), Routine Followed by ibuprofen (ADVIL;MOTRIN) tablet 600 mg (CANCELED) 600 mg, Oral, EVERY 6 HOURS SCHEDULED, First dose on Thu09/05/15 at 0600, Until Discontinued, - Mild to moderate pain (pain scale 1-6). - Begin after ketorolac discontinued., Recovery (Recovery-Hospital Unit), Routine documented in this encounter
--- OUTSIDE RECORDS SUMMARY | 2023-10-31 10:24 | XMS_ITS | Encounter Summary ---
Author Organization [facility] [place] [address] Care Team Providers Care Shotweld Operator Name Role Phone Unavailable Primary Care Provider Unavailabl e Encounter Details Date Type Department Care Team (Late st Contact Info) Description 09/21/2015 Telephone Obstetrics [place] [phone] Itzel Lomas RN Social History Tobacco Use Types Packs/Day [...] encounter Miscellaneous Notes * Telephone Encounter - Itzel Lomas RN - 09/21/2015 3:07 PM EDT Call received from Anika nurse working on the [facility] [place] . She is with Miya Guillen now and suspects a possible breast infection in left breast . Miya is S/P low transverse on 09/02/15 @ [facility] . Baby was born at 28w 2 d, both Mom [place] [facility] [facility]. nurse reports today an area on left breast that is tender, red, firm, with decreased milkproduction . Patient reports fever and chills both yesterday and today . Appointment has been scheduled today @ [address] Peck for evaluation . documented in this encounter Plan of Treatment Not on file documented as of this encounter Visit Diagnoses Not on filedocumented in this encounter
--- OUTSIDE RECORDS SUMMARY | 2023-10-31 10:24 | XMS_ITS | Encounter Summary ---
Author Organization [facility] [place] [address] Care Team Providers Care Trademark Paralegal Name Role Phone Unavailable Primary Care Provider Unavailabl e Encounter Details Date Type Department Care Team (Latest Contact Info) Description 06/25/2015 9:11 AM EDT - 06/25/2015 11:59 PM EDT Hospital En[place] [phone] Tim Yan MD [facility] [address] OBST[place] [address] History of labor Discharge Disposition: Home Social History Tobacco [...] Diagnosis Comments US OB DETAILED MORPHOLOGY Routine 06/25/2015 9:57 AM EDT History of labor documented in this encounter Results * [...] 11:02 am) Patient Info ID #: ? [id number] ?: [birth year] (25 yrs) Name: ? MIYA GUILLEN ? Visit Date: 06/25/2015 09:15 am Performed By Performed By: ? Amanda CELIS, ??Joyce Attending: ?Teja DIEHL, Abi Seth Referred By: ?IVETTE HARTLEY-EVITA BARCENAS Service(s) Provided ??[facility] [place] - Detailed Morphology - Genetics - [id number] ?[id number] ??UOBTV - Viability - Cervical Length - Transvaginal - ??[id number] ??[id number] Indications ??morph; cervical length; E - Coordinates [...] ?68.2 ??% FL/AC: ? 20.6 ??% ? - Est. FW: ? 264 ?? gm ? [...] Outflow Tract: ?Visualized Aortic Arch: ?Visualized Cardiac [place]: ? Visualized 3 Vessel View: ?Visualized Diaphragm: [...] 06/25/2015 11:02 am) Patient Info ID #: [id number] : [birth year] (25 yrs) Name: MIYA GUILLEN Visit Date: 06/25/2015 09:15 am Performed By Performed By: Joyce Patel RDMS Attending: Abi Lezama MD Referred By: IVETTE [facility] Service(s) Provided [facility] [place] - Detailed Morphology - Genetics - [id number] UOBTV - Viability - Cervical Length - Transvaginal - [id number] Indications morph; cervical length; E - Coordinates [...] Outflow Tract: Visualized Aortic Arch: Visualized Cardiac [place]: Visualized 3 Vessel View: Visualized Diaphragm: Visualized [...]
--- OUTSIDE RECORDS SUMMARY | 2023-10-31 10:24 | XMS_ITS | Encounter Summary ---
Author Organization [facility] [place] [address] Care Team Providers Care Char Conveyor Tender Cellar Name Role Phone Unavailable Primary Care Provider Unavailabl e Encounter Details Date Type Department Care Team (Late st Contact Info) Description 05/21/2015 Orders Only Obstetrics [place] [address] Abi Lezama MD [facility] [address] OBSTETRICS [place] [address] Supervision of high risk in second trimester Social History Tobacco Use Types Packs/Day Years Used Date Smoking Tobacco: Never Assessed Sex and Gender Information Value Date Recorded Sex Assigned at Not on file Gender Identity Not on file Sexual Orientation Not on file documented as of this encounter Plan of Treatment Not on file documented as of this encounter Visit Diagnoses Diagnosis Supervision of high risk in second trimester Unspecified high-risk documented in this encounter
--- OUTSIDE RECORDS SUMMARY | 2023-10-31 10:24 | XMS_ITS | Encounter Summary ---
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 Delivery @ [facility] on 09/03/15 @ 27 weeks, maternal post transfer to [facility]. documented in this encounter Plan of Treatment Not on file documented as of this encounter Visit Diagnoses Not on filedocumented in this encounter
--- OUTSIDE RECORDS SUMMARY | 2023-10-31 10:24 | XMS_ITS | Encounter Summary ---
[facility] [place] [address] Care Team Providers Care Personnel Security Assistant Name Role Phone Unavailable Primary Care Provider Unavailabl e Encounter Details Date Type Department Care Team (Late st Contact Info) Description 10/12/2015 Telephone Obstetrics [place] [address] Itzel Lomas RN Social History Tobacco Use [...] Telephone Encounter - Itzel Lomas RN - 10/12/2015 4:41 PM EDT TELEPHONE NOTE Caller: Miya Reason for call: Miya is calling regarding symptoms of mastitis . She was seen in ED on 10/06/15 and prescribed Keflex 500 mg 4 times daily. She reports today that her left breast is hard in a coupleof areas and painful. Assessment: Recurrent mastitis Plan/Instructions: Discussed with Stas Tillman , patient has been advised to go to [facility] when she is here visiting her baby in NICU to have the breast looked at . She should continue taking the Keflex as directed , apply heat to the breast , massage the area , and go to [facility]. She voiced understanding and agreement with this plan . documented in this encounter Plan of Treatment Not on file documented as of this encounter Visit Diagnoses Not on filedocumented in this encounter
--- OUTSIDE RECORDS SUMMARY | 2023-10-31 10:24 | XMS_ITS | Encounter Summary ---
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 Name Role Phone Unavailable Primary Care Provider Unavailabl e Reason for Visit * Reason Comments Follow-up Encounter Details Date Type Department Care Team (Late st Contact Info) Description 09/21/2015 4:30 PM EDT Office Visit Obstetrics [place] [address] Trudy Virgen MD [facility] DR OBSTETRICS & [place] [address] Mastitis Social History Tobacco Use Types Packs/Day Years [...] Sign Reading Time Taken Comments Blood Pressure 102/70 09/21/2015 4:14 PM EDT Pulse 80 09/21/2015 4:14 PM EDT Temperature 36.7 ??C (98.1 ??F) 09/21/2015 4:14 PM ED T Respiratory Rate 16 09/21/2015 4:14 PM EDT Oxygen Saturation 100% 09/21/2015 4:14 PM EDT Inhaled Oxygen Concentration - - Weight 63.6 kg (140 lb 4.8 oz) 09/21/2015 4:14 P M EDT Height 165.1 cm (5' 5) 09/21/2015 4:14 PM EDT Body Mass Index 23.35 09/21/2015 4:14 PM EDT documented in this encounter Progress Notes * Trudy Virgen Herminia - 09/21/2015 4:30 PM EDT Acute Clinic Visit - Resident Patient name: Miya Guillen Date of : 1990 Date of visit: 09/21/2015 Chief concern/History of present illness: Miya is a 25 y.o. who is 2.5 weeks and presents for concern of mastitis. She feels like she has chills and body aches for the past 2-3 days, subjective fevers, but was not able to take her temp. She is eating less as she doesn't feel hungry. No nausea/vomiting. She has light bleeding. She is pumping. She is not getting much from her left breast, and it is very painful and erythematous. Obstetrical history: OB History Para Term AB TAB SAB Ectopic Multiple Living 2 1 1 1 Problem list: Patient Active Problem List Diagnosis Code ??? H/O section Z98.89 Past surgical history: Past Surgical History Procedure Laterality Date ??? Noble tooth extraction ??? section, low transverse Family history: No family history on file. Social history: Social History Substance Use Topics ??? Smoking status: Never Smoker ??? Smokeless tobacco: Never Used ??? Alcohol use No Medications: Current Outpatient Prescriptions on File Prior to Visit Medication Sig Dispense Refill ??? acetaminophen (TYLENOL) 500 mg Tablet Take 2 tablets by mouth every 6 hours. 30 tablet 1 ??? ferrous sulfate 325 mg (65 mg iron) Tablet, Delayed Release (E.C.) Take 1 tablet by mouth 2 times daily (with meals). 60 tablet 11 ??? oxyCODONE (ROXICODONE) 5 mg Tablet Take 1 tablet by mouth every 4 hours as needed for Pain. 20 tablet 0 ??? pediatric multivitamin with iron Tablet, Chewable Take 2 tablets by mouth daily. No current facility-administered medications on file prior to visit. Allergies: Allergies Allergen Reactions ??? Banana Rash Review of systems: See HPI for pertinent ROS Physical exam: BP 102/70 (BP Location (NBP): Right arm, Patient Position: Sitting, BP Cuff Sizes: Adult (25-34 cm)) Pulse 80 Temp 36.7 ??C (98.1 ??F) (Oral) Resp 16 Ht 165.1 cm (5' 5) Wt 63.6 kg (140 lb 4.8 oz) SpO2 100% ? Yes BMI 23.35 kg/m2 General: Well developed female. Breast: Right breast normal and without masses, erythema, skin changes. Left breast with erythema to the medial surface and induration in the same area. No fluctuance. Warm to touch. Assessment/Plan: Miya is a 25 y.o. female who presents with concern for mastitis after meeting with forestry consultant today. Exam consistent with this diagnosis. Will treat with dicloxacillin for 10 days. She was counseled that if she does not improve in 72 hours, she should let us know. In the meantime, counseled to continue pumping for her in the ICN, and that she can use NSAIDs for comfort as needed. The patient was discussed and examined with Dr. Jyoti Patton, attending physician. TRUDY VIRGEN MD, PGY3 09/21/2015 * Jyoti Patton MD - 09/21/2015 4:30 PM EDT I saw and evaluated Miya Guillen. I agree with the findings and the plan of care as documented in the resident's note. JYOTI PATTON MD documented in this encounter Plan of Treatment Not on file documented as of this encounter Visit Diagnoses Diagnosis Mastitis Inflammatory disease of breast documented in this encounter
--- OUTSIDE RECORDS SUMMARY | 2023-10-31 10:24 | XMS_ITS | Encounter Summary ---
Author Organization Formerly [facility] [place] [address] Care Team Providers Care Market Editor Name Role Phone Unavailable Primary Care Provider Unavailabl e Reason for Visit * Reason Comments Breast Problem * Auth/Cert Specialty Diagnoses / Procedures Referred By Contac t Referred To Contact Diagnoses Mastitis, obstetric, condition M Procedures Ultrasound Referral ID Status Reason Start Date Expiration Date Visits Re quested Visits Authorized [id number] 1 1 Encounter Details Date Type Department Care Team (Latest Contact Info) Description 10/12/2015 5:09 PM EDT - 10/15/2015 5:02 PM EDT Hospital Encounter [address] [place] [address] Itzel Kelly MD [facility] OBSTETRICS [place] [address] Discharge Disposition: Home Social History Tobacco Use [...] Sign Reading Time Taken Comments Blood Pressure 112/69 10/15/2015 2:53 PM EDT Pulse 71 10/15/2015 2:53 PM EDT Temperature 36.6 ??C (97.9 ??F) 10/15/2015 2:53 PM ED T Respiratory Rate 16 10/15/2015 2:53 PM EDT Oxygen Saturation 100% 10/15/2015 2:53 PM EDT Inhaled Oxygen Concentration - - Weight 63.3 kg (139 lb 8.8 oz) 10/12/2015 9:16 P M EDT Height 165.1 cm (5' 5) 10/12/2015 9:16 PM EDT Body Mass Index 23.22 10/12/2015 9:16 PM EDT documented in this encounter Discharge Summaries * Rashard Peck - 10/15/2015 4:24 PM EDT Discharge Summary Patient Name: Kiana Gallegos Patient Age: 25 y.o. Language: Swedish Race: White Ethnicity: OR Admit date: 10/12/2015 Discharge date and time: 10/15/2015 Attending Physician: Itzel Kelly MD Discharge Physician: Aria Peck MD Follow-up Recommendations for Providers: F/up in one to two weeks to ensure continued improvement. [place] to make appointment. Inpatient Provider Contact Information: [facility] Obstetrics and Gynecology [phone] Discharge Diagnoses (Hospital Problems) and Secondary Diagnoses (Chronic Problems): Active Hospital Problems Diagnosis ??? Mastitis, obstetric, condition ??? H/O section Resolved Hospital Problems Diagnosis Date Resolved No resolved problems to display. Active Non-Hospital Problems Diagnosis ??? Depression ??? History of obstetric problem ??? Lower urinary tract infectious disease History of Presentation: 25 y.o. Female presents to [facility] at 5.5 weeks s/p stat pLTCS at 28w2d for cord prolapse with left breast pain. Kiana reports that this pain started this morning and has progressed to a sharp 8/10 pain in the superior aspect of her left breast that is worsened by movement and palpation. She currently doesn't notice any redness or firmness in her breast but has noticed it in the past few weeks. She denies any blood or pus in her breast milk and has continued using her breast pump with no change in her symptoms. She endorses fever, chills, malaise but denies diaphoresis, nausea, vomiting, shortness of breath, diarrhea. She has been receiving ongoing treatment for mastitis forthe past three weeks. She completed a 10 day course of dicloxacillin after visiting the [facility] OBGYN clinic on 09/21/15 for similar symptoms and was feeling well. Her symptoms returned after a few days and she visited the [facility] ED on 10/06/15 where she was treated for mastitis with a 10 day course of Keflex and instructed to follow up with her OBGYN if her symptoms did not improve. Hospital Course: On admission WBC was 11.8 and temp was 38.1C. She was started on IV clindamycin 600mg q8h. This wasdiscontinued due to continued febrile episodes, as high as 39.5. She was started on Vancomycin and had red man syndrome as a reaction, so this was also discontinued. A left breast ultrasound on 10/13/2015 was negative for drainable fluid collection. ID consult obtained and patient started on IV daptomycin. She had a second left breast US on 10/14/2015 which remained negative for drainable fluid collection. She clinically improved rapidly on IV daptomycin. On the morning of HD #4, she felt well, the erythema was largely resolved, she was no longer tender, and she hadn't been febrile in greater than 24 hours. She was therefore transitioned to PO linezolid per ID recommendations and discharged to home. Vital signs at Discharge: BP: 112/69, Heart Rate: 71, Temp: 36.6 ??C (97.9 ??F), Resp: 16, BMI (Calculated): 23.3 Height: 165.1 cm (5' 5) (10/12/152115) Weight - Scale: 63.3 kg (139 lb 8.8 oz) (10/12/152115) Functional and Cognitive status: Fully ambulatory and cognitively intact Important Studies and Lab Data: Labs: Last 3 wbc, hgb, hct plt Recent Labs 10/14/15 0335 10/13/15 1441 10/12/15 1859 WBC 10.8* 15.2* 11.8* HGB 9.2* 9.4* 11.0* HCT 29.1* 29.9* 34.7 PLATELET 212 222 289 Studies: Left Breast US 10/12 There is an extensive network of thin (1 - 4 mm) deep, irregular , linear branching fluid collections. No larger, focal drainable fluid collection / abscess is seen. A followup ultrasound may be helpful as this process may resolve with continued medical therapy or develop into a drainable abscess. Left Breast US 10/13 Again noted, multiple branching and interconnecting tubular hypoechoic areas measuring less than 1 cm in thickness in the mid to lateral left breast at approximately the 2-3 o'clock position. No drainable organized focal fluid collection identified Breast milk culture preliminary: Gram negative rods, mixed morphology suggestive of cutaneous matt Pending labs: Breast milk culture final Discharge Conditions/Prognosis: Stable Discharge to: Home Updated Allergies/ADRs: Allergies Allergen Reactions ??? Vancomycin Angioedema ??? Banana Rash Immunizations Given this Hospitalization: There is no immunization history on file for this patient. Discharge Medications: Your Medications New Medications Dose Details * linezolid 600 mg Tab Commonly known as: ZYVOX Take 1 tablet by mouth 2 times daily for 12 days. 600 mg Quantity: 24 tablet Refills: 0 * linezolid 600 mg Tab Commonly known as: ZYVOX Take 1 tablet by mouth 2 times daily. 600 mg Quantity: 24 tablet Refills: 0 norgestimate-ethinyl estradiol 0.25-35 mg-mcg Tab Commonly known as: SPRINTEC (28) Take 1 tablet by mouth daily. 1 tablet Quantity: 84 tablet Refills: 3 * Notice: This list has 2 medication(s) that are the same as other medications prescribed for you. Read the directions carefully, and ask your doctor or other care provider to review them with you. Continued medications, unchanged Dose Details ferrous sulfate 325 mg (65 mg iron) Tbec Take 1 tablet by mouth 2 times daily (with meals). 325 mg Quantity: 60 tablet Refills: 11 STOPPED Medications cephalexin 500 mg Cap Commonly known as: KEFLEX Smoking Status at Discharge: History Smoking Status ??? Never Smoker Smokeless Tobacco ??? Never Used Instructions Given to Patient at Discharge: Patient Instructions Follow up appointments and recommendations: Recommend following up with care provider within 1-2 weeks. If you would like to follow up at [facility] rather than with your home provider, please call to make this appointment. ([phone]). Patient Discharge Instructions: For problems or concerns related to this hospitalization call: [phone] weekdays, or [phone] weekends or nights. Call your doctor if you develop: --A fever over 101 degrees F --Increasing pain --Other signs of infection Activity level: You should be able to resume your usual activities of daily living (eating, drinking, washing, walking.). Diet: Regular as tolerated. Pain medications include Ibuprofen and Tylenol. New Medications: Please take Linezolid 600 mg twice daily by mouth for 12 days. Please complete theentire course. You may also start your control which has been sent to your pharmacy at 6 weeks . General Instructions None Future Appointments and Orders Future Orders Complete By Expires Full code [COD2 Custom] As directed Process Instructions: 1. Completing this order indicates that the recording provider had a discussion with the patient and/or their agent regarding their wishes for resuscitation. 2. If the patient does not have decision making capacity, the provider must document within the order and in the contemporaneous progress note which of the patient's agents the discussion was held with. 3. If this Full Code Order is a revocation or cancellation of a previous DNR order and the providerrecording this order in the system is not the Attending of Record, then the recording provider willhave discussed this order with the Attending of Record and is documenting the decision of the Attending of Record obtained through explicit verbal review. Scheduling Instructions: Questions: Does patient have capacity to make decision: Yes Content of discussion: Discharge References/Attachments None documented in this encounter Discharge Instructions * Patient Instructions* Rashard Peck - 10/15/2015 3:38 PM EDT Follow up appointments and recommendations: Recommend following up with care provider within 1-2 weeks. If you would like to follow up at [facility] rather than with your home provider, please call to make this appointment. ([phone]). Patient Discharge Instructions: For problems or concerns related to this hospitalization call: [phone] weekdays, or [phone] weekends or nights. Call your doctor if you develop: --A fever over 101 degrees F --Increasing pain --Other signs of infection Activity level: You should be able to resume your usual activities of daily living (eating, drinking, washing, walking.). Diet: Regular as tolerated. Pain medications include Ibuprofen and Tylenol. New Medications: Please take Linezolid 600 mg twice daily by mouth for 12 days. Please complete theentire course. You may also start your control which has been sent to your pharmacy at 6 weeks . documented in this encounter Medications at Time of Discharge Medication Sig Dispensed Refills Start Date End Date linezolid (ZYVOX) 600 mg Tablet Take 1 tablet by mouth 2 times daily for 12 days. 24 tablet 10/15/2015 10/27/2015 norgestimate-ethinyl estradiol (SPRINTEC, 28,) 0.25-35 mg-mcg Tablet Take 1 tablet by mouth daily. 84 tablet 3 10/15/2015 05/20/2021 linezolid (ZYVOX) 600 mg Tablet Take 1 tablet by mouth 2 times daily. 24 tablet 10/15/2015 05/20/2021 ferrous sulfate 325 mg (65 mg iron) Tablet, Delayed Release (E.C.) Take 1 tablet by mouth 2 times daily (with meals). 60 tablet 11 09/05/2015 05/20/2021 documented as of this encounter Progress Notes * Funmi Garibay - 10/15/2015 1:54 PM EDT General Surgery Consult Progress Note 25 y.o. female with recurrent mastitis of left breast, concern for abscess. 24 hrs: Continues daptomycin Symptomatically improved, no further fevers Ultrasound showed no abscess. BP 106/67 (BP Location (NBP): Left arm) Pulse 91 Temp 37.1 ??C (98.8 ??F) (Oral) Resp 14 Ht 165.1 cm (5' 5) Wt 63.3 kg (139 lb 8.8 oz) SpO2 98% BMI 23.22 kg/m2 Young female, lying in bed RRR CTAB R breast slightly swollen, improved tenderness, erythema largely resolved. CBC No results found for: WBC, HGB, HCT, PLATELET 25 y.o. female with mastitis, concern for abscess. No abscess seen on ultrasound yesterday, mastitis resolving with broadened antibiotic coverage. General Surgery will sign off, please contact us with any questions. Funmi Garibay MD * Nguyen Ozuna Tim - 10/15/2015 7:39 AM EDT Delivery Note Patient ID: Kiana Gallegos 25 y.o. presents to [facility] at 5.5 weeks s/p stat pLTCS at 28w2d at OSH for cord prolapse with left breast pain and malaise. Interval Events: ?? T max 39.5C at 1910 on 10/12 ?? IV clindamycin d/c'd ?? IV vancomycin started and then d/c'd due to patient report of itching and tingling of lips ?? IV daptomycin started per ID ?? Breast U/S negative for drainable fluid collection ?? Breast milk culture - preliminary results: no microorganisms seen S: She feels like her breast pain has improved dramatically and has only some mild tenderness superior to areola. She reports ambulating without weakness/dizziness, tolerating a regular diet without nausea/vomiting, voiding spontaneously. She no longer desires to breastfeed. O: Last value Range last 24 hrs Temperature Temp: 37.1 ??C (98.8 ??F) Temp: [36.6 ??C (97.9 ??F)-37.3 ??C (99.1 ??F)] Heart Rate Heart Rate: 91 Heart Rate: [81-115] Blood Pressure BP: 106/67 BP: (100-115)/(62-73) Respiratory Rate Resp: 14 Resp: [14-18] SpO2 SpO2: 98 % SpO2: [98 %-100 %] Exam: Gen: appears well, in no acute distress. Cardiac: RRR, S1, S2, no rub/gallop/murmur. Pulmonary: CTAB, no rales, wheeze/rhonchi. Breast: no nipple discharge, no tenderness, erythema or induration of left breast. Abdomen: Soft, symmetric, incision healing well, BS active, no rebound/guarding Extremities: nontender, no edema. Labs: Recent Labs 10/14/15 0335 10/13/15 1441 10/12/15 1859 WBC 10.8* 15.2* 11.8* HGB 9.2* 9.4* 11.0* HCT 29.1* 29.9* 34.7 PLATELET 212 222 289 Ultrasound of left breast 10/14/15: multiple branching and interconnecting tubular hypoechoic areas measuring less than 1 cm in thickness in the mid to lateral left breast at approximately the 2- 3 o'clock position. No drainable organized focal fluid collection identified Assessment: Kiana Gallegos 25 y.o. presents to [facility] at 5.5 weeks s/p stat pLTCS at 28w2d at OSH for cord prolapse who presented with left breast pain and malaise 2/2 mastitis. She has improved significantly and is afebrile on IV daptomycin. Her breast is no longer erythematous,indurated or tender to palpation.She expresses that she is no longer interested in breast feeding her . Plan: ?? Afebrile, monitor vital signs, last fever 39.5C @ 1901 on 10/13/15 ?? WBC: 10.8 from 15.2 on 10/12 ?? On IV Daptomycin per ID rec, switch to linezolid PO 600 mg bid to complete a 2 week course, per ID recs This patient was seen and discussed on rounds. Nguyen Ozuna MD PGY1 10/15/2015 Associated attestation - Aria Peck MD - 10/15/2015 4:24 PM EDT Obgyn Attending Note We saw and evaluated Kiana Gallegos on rounds this AM with the team including GLORIA Salter. Kiana reports she feels much improved. Denies fevers, chills. Denies N/V. Weaning via pumping to comfort. BP 112/69 (BP Location (NBP): Left arm) Pulse 71 Temp 36.6 ??C (97.9 ??F) (Oral) Resp 16 Ht 165.1 cm (5' 5) Wt 63.3 kg (139 lb 8.8 oz) SpO2 100% BMI 23.22 kg/m2 NAD conversant Abd soft, NT Breasts slightly engorged bilaterally, nearly resolved left breast erythema, mild induration superior to areola No LE edema Lab Results Component Value Date WBC 10.8 (H) 10/14/2015 RBC 3.76 (L) 10/14/2015 HGB 9.2 (L) 10/14/2015 HCT 29.1 (L) 10/14/2015 MCV 77.4 (L) 10/14/2015 MCH 24.5 (L) 10/14/2015 MCHC 31.6 (L) 10/14/2015 PLATELET 212 10/14/2015 RDWCV 13.8 10/14/2015 A/P: HD#3 for admission for left mastitis refractory to outpatient management, resolving s/p IV Daptomycin. Has remained afebrile for over 36 hours. Transition to oral Linezolid and discharge home with outpatient follow up. Aria Peck MD * Funmi Garibay - 10/14/2015 1:52 PM EDT General Surgery Consult Progress Note 25 y.o. female with recurrent mastitis of left breast, concern for abscess. 24 hrs: Daptomycin started Afebrile since last evening Tachycardia improving Pain and swelling improving BP 106/70 (BP Location (NBP): Left arm) Pulse 86 Temp 36.6 ??C (97.9 ??F) (Oral) Resp 18 Ht 165.1 cm (5' 5) Wt 63.3 kg (139 lb 8.8 oz) SpO2 100% BMI 23.22 kg/m2 Young female, lying in bed RRR CTAB R breast with improved erythema from yesterday, still diffusely tender, no fluctuance CBC Lab Results Component Value Date WBC 10.8 (H) 10/14/2015 HEMOGLOBIN 9.2 (L) 10/14/2015 HEMATOCRIT 29.1 (L) 10/14/2015 PLATELETS 212 10/14/2015 25 y.o. female with mastitis, concern for abscess. Clinical improvement with broadened antibiotic coverage, awaiting morning ultrasound to evaluate for development of abscess, but unlikely given overall improvement in clinical picture. Funmi Garibay MD * Frances Martinez RN - 10/14/2015 10:43 AM EDT Pt arrived to room 211B via wheelchair, ambulated to bed with standby assist. Complaining of headache, was given ibuprofen prior to arrival. Peripheral IV intact. LR at 100 ml/hr ordered however pt stated they turned it off this a.m. paged and discontinued order. * Mark Palma MD - 10/14/2015 8:48 AM EDT Delivery Note Patient ID: Kiana Gallegos 25 y.o. presents to [facility] at 5.5 weeks s/p stat pLTCS at 28w2d at OSH for cord prolapse with left breast pain and malaise. Interval Events: ?? T max 39.5C at 1910 on 10/12 ?? IV clindamycin d/c'd ?? IV vancomycin started and then d/c'd due to patient report of itching and tingling of lips ?? IV daptomycin started per ID ?? Breast U/S negative for drainable fluid collection ?? Breast milk culture pending S: The patient reports improving left breast pain in both upper quadrants and feels that her skin on her breast is less erythematous. She reports that the pain has improved somewhat since yesterdayt.She reports less chills and malaise. Pain is controlled on Tylenol and ibuprofen. She has continuedto use a breast pump without bloody discharge. She reports ambulating without weakness/dizziness, tolerating a regular diet without nausea/vomiting, voiding spontaneously. O: Last value Range last 24 hrs Temperature Temp: 36.6 ??C (97.9 ??F) Temp: [36.6 ??C (97.9 ??F)-39.5 ??C (103.1 ??F)] Heart Rate Heart Rate: 86 Heart Rate: [86-116] Blood Pressure BP: 106/70 BP: (100-115)/(62-70) Respiratory Rate Resp: 18 Resp: [18-22] SpO2 SpO2: 100 % SpO2: [98 %-100 %] Intake/Output Summary (Last 24 hours) at 10/14/15 1608 Last data filed at 10/14/15 1000 Gross per 24 hour Intake 1830.83 ml Output 1400 ml Net 430.83 ml UOP ~ 200 cc/hr over the last 4 recorded hours Exam: Gen: appears well, in no acute distress. Cardiac: RRR, S1, S2, no rub/gallop/murmur. Pulmonary: CTAB, no rales, wheeze/rhonchi. Breast: no nipple discharge, left breast tenderness to palpation, 15cm x 20cm area of erythema and induration outlined in black ink and has progressed ~1cm past the outline Abdomen: Soft, symmetric, incision healing well, BS active, no rebound/guarding Extremities: nontender, no edema. Labs: Recent Labs 10/14/15 0335 10/13/15 1441 10/12/15 1859 WBC 10.8* 15.2* 11.8* HGB 9.2* 9.4* 11.0* HCT 29.1* 29.9* 34.7 PLATELET 212 222 289 Assessment: Kiana Gallegos 25 y.o. presents to [facility] at 5.5 weeks s/p stat pLTCS at 28w2d at OSH for cord prolapse who presented with left breast pain and malaise 2/2 mastitis. She has improved significantly and is afebrile on IV daptomycin. She is continuing to use a breast pump and is discarding the breast milk. She expresses that she is no longer interested in breast feeding her infant. Plan: ?? Afebrile, monitor vital signs, last fever 39.5C @ 1901 on 10/13/15 ?? WBC: 10.8 from 15.2 on 10/12, trend CBC ?? Monitor I/O ?? Continue IV Daptomycin per ID rec ?? U/S f/u left breast scheduled for today AM, follow up to r/o evolving breast abscess, consider surgical management if US is positive for abscess. ?? Appreciate ID recommendations for oral abx regimen This patient was seen and discussed on rounds. Mark Palma MD PGY1 10/14/2015 Associated attestation - Abi Lezama MD - 10/14/2015 9:46 PM EDT Patient feels far better than yesterday. She notes that her breast is softer medially but still firm and tender laterally. She is considering ceasing breast feeding. Afebrile since last evening. VSS Breast: erythema not extending past demarcation from yesterday, Softer and less tender Imp/plan: The severe mastitis with systemic inflammatory response is responding well to the broad spectrum antibiotics which we will continue. Cultures are negative to date. Abi Lezama MD * Kadie Avila RN - 10/13/2015 3:25 PM EDT Called to Pt.'s room. She C/O itching starting at her neck and including all of her head and lips. She also C/O of feeling her lips and face were swollen. Vancomycin was stopped. 237 cc of 250 cc wasgiven No S/Sxs SOB, no other pain except extreme tenderness in L breast. No signs of rash on chest and back. VS taken recorded in flow sheet. Viktoriya Spear MD made aware. Will start Zosyn as soon as released from pharmacy. 1540- Surgery resident in to consult and assess pt. 1555- Benadryl given 12.5 mg IV for itching 1615- Pt states relief from itching. Zosyn started as ordered. * Carmel Ortega RN - 10/13/2015 2:39 PM EDT Blood cultures X2 and labs drawn as ordered, left arm, hand and AC. Pt twila well. * Comfort Vasquez MD - 10/13/2015 12:07 PM EDT Obstetrics Progress Note Patient ID: Kiana Gallegos is a 25 y.o. who is 3 weeks post op after a stat LTCS at [id number] cord prolapse who as admitted with mastitis. Interval Events: -Temp of 39.5 Subjective: Patient reports that she feels like her left breast is more tender and red then last evening. Also reports that the lesion is enlarging. She reports that she has been having sweats and chills. She has a diminished appetite and mild nausea, no vomiting. She denies SOB or chest pain. Denies any foul smelling lochia. Objective: BP 112/64 Pulse 135 Temp 39.4 ??C (102.9 ??F) (Oral) Resp 22 Ht 165.1 cm (5' 5) Wt 63.3 kg (139 lb8.8 oz) SpO2 98% BMI 23.22 kg/m2 Gen: Appears unwell, 6 blankets on top of her Cardio: Tachycardic Pulm: CTAB Breast: Right breast appears normal, non tender, no masses Left breast erythematous and tender to the touch, 20 cm x15cm lesion on upper outer quadrant encompassing nipple Abdomen: Soft NT/ND Uterus: from abdominal exam, non tender, reports no lochia or abnl discharge Recent Labs 10/12/15 1859 WBC 11.8* HGB 11.0* HCT 34.7 PLATELET 289 Assessment and Plan: Kiana Gallegos is a 25 y.o. who is 3 weeks post op after a stat LTCS at 34w1d for cord prolapse who as admitted with mastitis who is now meets SIRS criteria with a T of 39.4 and HR of 140. With worsening fever on IV Clindamycin, will add IV Vancomycin. Will follow sepsis protocol and get IV fluid bolus, broad spectrum antibiotics, blood cultures, wbc, and lactate. Patient scheduled for US for potential abscess. If it appears drainable will consult general surgery. -Lactate -CBC -Blood cultures -urine culture -500 cc IV fluid bolus -Breast US Pt d/w Dr. Teja VASQUEZ MD PGY4 10/13/2015 Associated attestation - Abi Lezama MD - 10/13/2015 12:57 PM EDT I evaluated the patient with Dr. Vasquez. She has developed chills and fever with tachycardia. We have initiated the sepsis bundle. Her breast exam is remarkable for a large fluctuant area. Will carryout plan for the ultrasound. She will likely need an incision and drainage. Abi Lezama MD * Mark Palma MD - 10/13/2015 8:31 AM EDT Delivery Note Patient ID: Kiana Gallegos 25 y.o. presents to [facility] at 5.5 weeks s/p stat pLTCS at 28w2d at OSH for cord prolapse with left breast pain and malaise. Interval Events: - T max 38.1C overnight - IV clindamycin started - breast U/S ordered and scheduled for 10/13/15 in the AM S: The patient complains of ongoing left breast pain in both upper quadrants and feels that her skin on her breast has developed some erythema. She reports that the pain has improved somewhat since admission last night. She reports fever, chills and malaise. Pain is controlled on Tylenol and ibuprofen. She has continued to use a breast pump without bloody discharge. She reports ambulating withoutweakness/dizziness, tolerating a regular diet without nausea/vomiting, voiding spontaneously. Lochia is minimal. O: Last value Range last 24 hrs Temperature Temp: 37 ??C (98.6 ??F) Temp: [36.6 ??C (97.9 ??F)-38.1 ??C (100.6 ??F)] Heart Rate Heart Rate: 124 Heart Rate: [114-132] Blood Pressure BP: 102/67 BP: (93-120)/(55-94) Respiratory Rate Resp: 18 Resp: [18-20] SpO2 SpO2: 99 % SpO2: [99 %-100 %] Intake/Output Summary (Last 24 hours) at 10/13/15 0852 Last data filed at 10/12/15 2130 Gross per 24 hour Intake 540 ml Output 400 ml Net 140 ml Exam: Gen: appears well, in no acute distress. Cardiac: RRR, S1, S2, no rub/gallop/murmur. Pulmonary: CTAB, no rales, wheeze/rhonchi. Breast: no nipple discharge, left breast tenderness to palpation, fluctuant mass palpated in upper left midline, mild erythema Abdomen: Soft, symmetric, incision healing well, BS active, no rebound/guarding Uterus: firm Extremities: nontender, no edema. Labs: Recent Labs 10/12/15 1859 WBC 11.8* HGB 11.0* HCT 34.7 PLATELET 289 Assessment: Kiana Gallegos 25 y.o. presents to [facility] at 5.5 weeks s/p stat pLTCS at 28w2d at OSH for cord prolapse with left breast pain and malaise 2/2 mastitis. She seems to have improved somewhat on IV antibiotics, however a breast US would r/o an abscess that would need surgical management. Plan: ?? Afebrile, monitor vital signs ?? WBC: 11.8, trend CBC ?? Continue IVF LR @100mL/hr ?? Continue IV Abx, clindamycin 600mg q8h ?? U/S left breast scheduled for today AM, follow up result to r/o breast abscess, consider surgical management if US is positive. This patient was seen and discussed on rounds. Mark Palma MD PGY1 10/13/2015 Associated attestation - Abi Lezama MD - 10/13/2015 9:27 AM EDT Attending note I saw patient on rounds and agree with Dr. Tyson's note above. The patient reports feeling unwell with malaise and myalgia. Her left breast is painful. Temp: [36.6 ??C (97.9 ??F)-38.1 ??C (100.6 ??F)] Heart Rate: [114-132] Resp: [18-20] BP: (93-120)/(55-94) SpO2: [99 %-100 %] Exam deferred until after ultrasound as she has been examined already today Impression: POD 5 1/2 weeks after emergency . Left breast mastitis without successful treatment as outpatient Plan: Ultrasound study IV clindamycin Abi Lezama MD * Blanca Sellers RN - 10/12/2015 7:37 PM EDT 1713- Patient arrived to triage c/o 10/10 L breast pain which patient had just taken ibuprofen. Patient reports having mastitis and is being treated with antibiotics with no effect. Patient stated its getting worse each day. MD Ozuna notified of patient arrival. IV placed per order and labs weredrawn. IV fluids started per order (see mar). Will continue to closely monitor patient. documented in this encounter H&P Notes * Itzel Kelly MD - 10/12/2015 11:42 PM EDT OBGYN H & P Problem List: Active Hospital Problems Diagnosis ??? Mastitis, obstetric, condition Resolved Hospital Problems Diagnosis Date Resolved No resolved problems to display. Active Non-Hospital Problems Diagnosis ??? H/O section Reason for Visit: 25 y.o. Female presents to [facility] at 5.5 weeks s/p stat pLTCS at 28w2d for cord prolapse with left breast pain. HPI Kiana reports that this pain started this morning and has progressed to a sharp 8/10 pain in the superior aspect of her left breast that is worsened by movement and palpation. She currently doesn't notice any redness or firmness in her breast but has noticed it in the past few weeks. She denies anyblood or pus in her breast milk and has continued using her breast pump with no change in her symptoms. She endorses fever, chills, malaise but denies diaphoresis, nausea, vomiting, shortness of breath, diarrhea. She has been receiving ongoing treatment for mastitis for the past three weeks. She completed a 10 day course of dicloxacillin after visiting the [facility] OBGYN clinic on 09/21/15 for similar symptoms and was feeling well. Her symptoms returned after a few days and she visited the [facility] ED on 10/06/15 where she was treated for mastitis with a 10 day course of Keflex and instructed to followup with her OBGYN if her symptoms did not improve. Review of Systems All other systems reviewed negative except as per HPI. Past Medical and Surgical History: Past Medical History Diagnosis Date ??? Mastitis Past Surgical History Procedure Laterality Date ??? Irwin tooth extraction ??? section, low transverse Past Obstetric History: Obstetric History T1 TAB0 SAB0 E0 M0 L1 Prior To Admission Medications: Prescriptions Prior to Admission Medication Sig Dispense Refill Last Dose ??? cephalexin (KEFLEX) 500 mg Capsule Take 1 capsule by mouth 4 times daily for 10 days. 40 capsule 0 ??? ferrous sulfate 325 mg (65 mg iron) Tablet, Delayed Release (E.C.) Take 1 tablet by mouth 2 times daily (with meals). 60 tablet 11 Taking Allergies: Allergies Allergen Reactions ??? Banana Rash Family History: No family history on file. Social History and Habits: Social History Social History ??? Marital status: Spouse name: N/A ??? Number of children: N/A ??? Years of education: N/A Occupational History ??? Not on file. Social History Main Topics ??? Smoking status: Never Smoker ??? Smokeless tobacco: Never Used ??? Alcohol use No ??? Drug use: No ??? Sexual activity: Yes Partners: Male Other Topics Concern ??? Not on file Social History Narrative Physical Exam: Last Set of Vitals: Last value Range last 24 hrs Temperature Temp: 38.1 ??C (100.6 ??F) Temp: [36.6 ??C (97.9 ??F)-38.1 ??C (100.6 ??F)] Heart Rate Heart Rate: 132 Heart Rate: [132] Blood Pressure BP: 99/58 BP: (99-120)/(58-94) Respiratory Rate Resp: 18 Resp: [18-20] SpO2 SpO2: 99 % SpO2: [99 %-100 %] Physical Exam Gen: AAO, NAD Cardio: nl rhythm, S1, S2, no M/C/R/G Pulm: CTA BL, no W/C/R Breast Right: no tenderness to palpation no masses, no erythema or induration Left: very tender to palpation in the both upper quadrants, no erythema or induration, no nipple discharge Abd: +BS, soft, NT, ND, gravid Ext: warm, well-perfused, no TINO or calf tenderness Laboratory (Last 24 Hours): CBC Lab Results Component Value Date WBC 11.8 (H) 10/12/2015 HEMOGLOBIN 11.0 (L) 10/12/2015 HEMATOCRIT 34.7 10/12/2015 PLATELETS 289 10/12/2015 Assessment/Plan: 25 y.o. Female presents to [facility] at 5.5 weeks s/p stat pLTCS at 28w2d for cord prolapse with left breast pain likely 2/2 mastitis. She is on her second round of oral antibiotics forthe same symptoms in the last 3 weeks. Due to her being admitted to the [facility] ICN she had been in the hospital frequently for the last 5.5 weeks and is at an increased risk for exposure to MRSA. -Admit to Obstetrics for inpatient management -monitor vital signs -IV fluids -CBC -clindamycin 600mg q8h IV -U/S of left breast to r/o breast abscess Patient seen and discussed with attending MD Mark Vazquez MD PGY1 10/12/2015 Attending note I saw and evaluated the patient with Dr Palma (resident physician.) I have reviewed the resident's history during the visit and I agree with the details as written. My physical examination confirms and/or revises the resident's findings. The assessment and plan were formulated in discussion withme at the time of the visit and I agree with them as documented. In summary, she is a 25 yo P2 with signs and sx most c/w recurrent mastitis, failed outpatient regimen. Because of her tachycardia and unwell appearance,w ill admit for IV hydration, IV antibiotics and US of breast to rule-out breast abscess. Will treat with clindamycin to cover MRSA as she has been in hospital setting with in ICN for weeks now. If clinical picture is improved in the AM and no abscess is identified, she may be discharged on PO regimen. Itzel Kelly MD documented in this encounter Miscellaneous Notes * Consult Note - Zeinab Adler RN - 10/15/2015 12:07 PM EDT Consult ?? visited with mother. Mother was admitted for recurrent mastitis concerns. Mother is currently on antibiotics for mastitis. Possible discharge later today. ?? Mother indicated she's doing much better at this time. Her left breast has a large lump though mother reports it's much smaller than it was on admission. Mother is much more comfortable with abx treatment. Mother has decided not to continue . Mother is pumping to comfort 2 x per day. ?? Reviewed will want to slowly decrease pumping and monitor for engorgement, sx blocked ducts, sx of mastitis. May apply ice to her breasts wrapped in a towel, 10 minutes on and 10 minutes and repeat, as needed for comfort. May also take tylenol/ibuprofen if MD approved/not allergic. ?? Discussed mother has @ 6 weeks milk supply in the freezer for her baby in the ICN. Provided supportand positive feedback to mother for being able to provide this milk for her baby. ?? Reviewed consideration for adding lecithin. will provide lecithin information to mother. Mother to discuss with MD, as desired. left information for mother in the ICN. ?? [facility] Zeinab Adler RN, IBCLC * Plan of Care - Arielle Mejia RN - 10/15/2015 4:34 AM EDT Problem: General Plan of Care Goal: Plan of Care Review Outcome: Ongoing (Interventions Implemented as Appropriate) 10/14/15 1446 10/14/15 3499 Plan of Care Review Plan of Care Outcome Status ongoing (interventions implemented as appropriate) -- Progress progress toward functional goals as expected -- Coping/Psychosocial Response Interventions Plan of Care Reviewed with -- patient OUTCOME EVALUATION NOTE: OUTCOME SUMMARY: Pt A&O this shift. SONAL to visit her in the NICU at the start of the shift. She is pumping for comfort this shift. Her mastitis appears to be limited to the anterior portion of her left breast. The redness has not increased per her report. She remains independently ambulatory and is voiding without a measuring container. IV abx given. PLAN MOVING FORWARD: Monitor I&O, Encourage ambulation, ?Change to PO abx as she is not , ?Discharge home with PO abx INDIVIDUALIZED FALL PREVENTION INTERVENTIONS: Low fall risk Patient-specific fall risk factors per assessment: [current deficits]: Peripheral IV, Mastitis Assistance [level of assistance required for transfers and ambulation]: Independent Supervision [direct monitoring required during toileting and ADLs]: Eyes on when OOB Surveillance [continuous indirect monitoring]: Q2hr purposeful rounding overnight, NKE Patient-specific fall prevention interventions for sensory deficits provided, if applicable: [X] Yes Assistive device, bed/chair alarm, environmental modifications (waste basket is out of the path and the IV tubing and cords are free from the floor), fall reduction program in place, lighting adjusted for task, bed in low position, wheels locked, side rails up (x2), nonskid socks worn OOB, [place] ID band on, no restraints, and call light is within reach at all times. CPG GOAL OUTCOME EVALUATION: Goal: Fall Prevention-Safe Patient Handling Outcome: Ongoing (Interventions Implemented as Appropriate) 10/13/15 2200 10/14/15 1111 10/14/15 1403 Safety Interventions Safety Precautions/Fall Reduction -- low bed;lighting adjusted for task/safety;fall reduction program maintained;environmental modification;nonskid shoes/slippers when out of bed -- Musculoskeletal Interventions Activity/Level of Assistance -- -- with stand by assist Positioning -- independent -- Muscle Strengthening -- personal routines for BADL/IADL promoted;mobility in bed promoted;activity/mobility promoted -- Self-Care Promotion personal/BADL objects within reach;personal routines for BADL/IADL promoted -- -- Richardson Fall Risk History of Falling -- 0 -- Secondary Diagnosis -- 15 -- Ambulatory Aids -- 0 -- Intravenous Therapy/Heparin/Saline Lock -- 20 -- Gait/Transferring -- 0 -- Mental Status -- 0 -- Score -- 35 -- OTHER Richardson Fall Risk -- High -- Activity and Safety Assistive Device -- -- None Goal: Infection Control Outcome: Ongoing (Interventions Implemented as Appropriate) 10/14/15 1111 10/14/15 5789 Safety Interventions Isolation Precautions standard precautions maintained -- Infection Prevention promote handwashing;rest/sleep promoted;nutrition promoted;hydration promoted;bronchial hygiene promoted;environmental surveillance -- Coping/Psychosocial Response Interventions Counseling -- emotional support provided;personal strengths integrated;problem solving facilitated Problem: Infection, Risk/Actual (Adult, Obstetrics) Goal: Infection Prevention/Resolution/Control Patient will demonstrate the desired outcomes. Outcome: Ongoing (Interventions Implemented as Appropriate) 10/15/15 0336 Infection, Risk/Actual (Adult, Obstetrics) Infection Prevention/Resolution/Control making progress toward outcome * Plan of Care - Frances Martinez RN - 10/14/2015 2:51 PM EDT Problem: General Plan of Care Goal: Plan of Care Review Outcome: Ongoing (Interventions Implemented as Appropriate) 10/14/15 1446 Plan of Care Review Plan of Care Outcome Status ongoing (interventions implemented as appropriate) Progress progress toward functional goals as expected Coping/Psychosocial Response Interventions Plan of Care Reviewed with patient OUTCOME EVALUATION NOTE: OUTCOME SUMMARY: Pt rested comfortably throughout the day. Only complaint of pain was a headache when she first arrived to the floor. VSS. Pt ambulating with standby assist. Pt went to ultrasound in the afternoon. Ptindependent with breast pump (pumping and dumping). PLAN MOVING FORWARD: Manage pain, monitor VSS. INDIVIDUALIZED FALL PREVENTION INTERVENTIONS: High Patient-specific fall risk factors per assessment: [current deficits]: Peripheral IV, infection, first 24 hours on the floor. Assistance [level of assistance required for transfers and ambulation]: standby Supervision [direct monitoring required during toileting and ADLs]: eyes Surveillance [continuous indirect monitoring]: Purposeful rounding, bed alarm Patient-specific fall prevention interventions for sensory deficits provided, if applicable: nonskid socks while OOB, room free from clutter CPG GOAL OUTCOME EVALUATION: Goal: Fall Prevention-Safe Patient Handling Outcome: Ongoing (Interventions Implemented as Appropriate) 10/13/15 2200 10/14/15 1111 10/14/15 1403 Safety Interventions Safety Precautions/Fall Reduction -- low bed;lighting adjusted for task/safety;fall reduction program maintained;environmental modification;nonskid shoes/slippers when out of bed -- Musculoskeletal Interventions Activity/Level of Assistance -- -- with stand by assist Positioning -- independent -- Muscle Strengthening -- personal routines for BADL/IADL promoted;mobility in bed promoted;activity/mobility promoted -- Self-Care Promotion personal/BADL objects within reach;personal routines for BADL/IADL promoted -- -- Richardson Fall Risk History of Falling -- 0 -- Secondary Diagnosis -- 15 -- Ambulatory Aids -- 0 -- Intravenous Therapy/Heparin/Saline Lock -- 20 -- Gait/Transferring -- 0 -- Mental Status -- 0 -- Score -- 35 -- OTHER Richardson Fall Risk -- High -- Activity and Safety Assistive Device -- -- None Goal: Infection Control Outcome: Ongoing (Interventions Implemented as Appropriate) 10/14/15 1111 Safety Interventions Isolation Precautions standard precautions maintained Infection Prevention promote handwashing;rest/sleep promoted;nutrition promoted;hydration promoted;bronchial hygiene promoted;environmental surveillance Coping/Psychosocial Response Interventions Counseling calming techniques promoted;emotional support provided;understanding of situation facilitated;verbalization of feelings encouraged Problem: Infection, Risk/Actual (Adult, Obstetrics) Goal: Infection Prevention/Resolution/Control Patient will demonstrate the desired outcomes. Outcome: Ongoing (Interventions Implemented as Appropriate) 10/14/15 1446 Infection, Risk/Actual (Adult, Obstetrics) Infection Prevention/Resolution/Control making progress toward outcome * Consult Note - Shemar Pruitt MD - 10/14/2015 8:42 AM EDT INFECTIOUS DISEASE INITIAL CONSULT NOTE Reason for Consult: Mastitis Consulting Service: OBGyn Consulting Attending: Itzel Kelly MD Admission Date: 10/12/2015 History of Present Illness: 25 y.o. year old previously healthy female with history of mastitis. She is her second child, who was born about 5 weeks ago prematurely and is still in the hospital. Four weeks ago, she developed left sided mastitis, which improved with 10 days of dicloxacillin. On 10/05, she developed a second bout of mastitis and was started on cephalexin, 500 mg q6h. After initial improvement, she worsened and was admitted, started on intravenous clindamycin. Yesterday, she worsened, became more febrile and hypotensive, and was switched to vancomycin for suspected MRSA. Unfortunately, her face and mouth swelled, without shortness of breath or hives. At that time, we were consulted by phone and advised to switch to daptomycin to treat potential MRSA. In the meantime, she had an ultrasound, which shows no abscess. She feels better than yesterday. She does not plan on anymore. Review of Systems: Remainder of review of systems was negative. Allergies: Allergies Allergen Reactions ??? Vancomycin Angioedema ??? Banana Rash Pertinent Medications: daptomycin Past Medical and Surgical History: Past Medical History Diagnosis Date ??? Mastitis Past Surgical History Procedure Laterality Date ??? Irwin tooth extraction ??? section, low transverse Prior To Admission Medications: Prescriptions Prior to Admission Medication Sig Dispense Refill Last Dose ??? cephalexin (KEFLEX) 500 mg Capsule Take 1 capsule by mouth 4 times daily for 10 days. 40 capsule 0 ??? ferrous sulfate 325 mg (65 mg iron) Tablet, Delayed Release (E.C.) Take 1 tablet by mouth 2 times daily (with meals). 60 tablet 11 Taking Inpatient Scheduled Medications: ??? lactobacillus 1 tablet Oral Daily ??? DAPTOmycin 375 mg Intravenous Q24H Family History: No family history on file. Social History and Habits: Social History Social History ??? Marital status: Spouse name: N/A ??? Number of children: N/A ??? Years of education: N/A Occupational History ??? Not on file. Social History Main Topics ??? Smoking status: Never Smoker ??? Smokeless tobacco: Never Used ??? Alcohol use No ??? Drug use: No ??? Sexual activity: Yes Partners: Male Other Topics Concern ??? Not on file Social History Narrative Physical Exam: Last value Range last 24 hrs Temperature Temp: 37.3 ??C (99.1 ??F) Temp: [37.1 ??C (98.8 ??F)-39.5 ??C (103.1 ??F)] Heart Rate Heart Rate: 102 Heart Rate: [102-136] Blood Pressure BP: 103/69 BP: (102-112)/(56-69) Respiratory Rate Resp: 18 Resp: [18-22] SpO2 SpO2: 99 % SpO2: [98 %-100 %] General Looks well, pumping breast milk in bed HEENT Normal oropharynx Heart Regular, no murmur Lungs Clear Breasts Left breast swollen, red, tender without drainage other than milk from nipple; no axillary lymphnodes Abdomen Soft, not tender Extremities No edema Skin No rash Neuro Grossly intact Laboratory: Recent Labs 10/14/15 0335 10/13/15 1441 10/12/15 1859 WBC 10.8* 15.2* 11.8* HGB 9.2* 9.4* 11.0* HCT 29.1* 29.9* 34.7 PLATELET 212 222 289 Recent Labs 10/14/15 0335 NA 140 K 4.0 CL 103 CO2 22 BUN 7* CREATININE 0.82 No results for input(s): AST, ALT, ALKPHOS, BILITOT, BILIDIR in the last 168 hours. No results found for: CRP No results found for: SEDRATE Component Value Date/Time SPGRAVITYUA 1.010 10/13/2015 1157 PHUADIP 7.0 10/13/2015 1157 PROTEINUADIP Negative 10/13/2015 1157 GLUCOSEU Negative 10/13/2015 1157 KETONESUA Negative 10/13/2015 1157 UROBILIUADIP Normal 10/13/2015 1157 BLOODUADIP Negative 10/13/2015 1157 NITRATEUA Negative 10/13/2015 1157 LEUKOESTERUA Small (A) 10/13/2015 1157 WBCUA 8 (H) 10/13/2015 1157 BILIRUBINUA Negative 10/13/2015 1157 Microbiology: Blood Cultures: 10/12 negative Urine Cultures: 10/12 negative Breast milk: Gram stain - few WBC, no organisms Radiology/Studies/Procedures: 10/12 There is an extensive network of thin (1 - 4 mm) deep, irregular , linear branching fluid collections. No larger, focal drainable fluid collection / abscess is seen. A followup ultrasound may be helpful as this process may resolve with continued medical therapy or develop into a drainable abscess. Assessment: 25 y.o. year old previously healthy female with recurrent mastitis. First episode responded to dicloxacillin, but second episode worsened on cephalexin. Became septic despite being switched to clindamycin for suspected MRSA, although she had only received 2 doses at that point. Escalation to vancomycin then led to an allergic reaction. Now improved on daptomycin. No abscess on sonogram. Blood and breast milk cultures negative so far. It is not entirely clear if she really 'failed' clindamycin. However, at this point, she should be treated with a drug that covers MRSA well. Since she is not planning on continuing to breast feed, she can switch from daptomycin to linezolidPO 600 mg bid to complete a 2 week course from 10/12. Please ensure good continuing drainage of the breast and follow up cultures. This patient was seen and discussed with ID attending Dr. Pruitt. Recommendations discussed withprimary treating team. Iglesia Ramirez MD Infectious Disease Fellow Pager [phone] Attending Addendum: I have seen and examined the patient, reviewed the data and agree with the note by Dr. Jane. Course not really typical for MRSA wtih her initial improvements on diclox amd keflex. However, shehas responded quickly to daptomycin. Threfore, it is possible she developed a new infection. Would give linezolid. i had a very martin discussion with her about nursing, her choice to stop is based onthe concern for continued and recurrent mastitis, not concern about drug effects on baby. She is done . * Plan of Care - Yvonne Lay RN - 10/14/2015 6:34 AM EDT Problem: General Plan of Care Goal: Plan of Care Review Outcome: Ongoing (Interventions Implemented as Appropriate) 10/14/15 0623 Plan of Care Review Plan of Care Outcome Status ongoing (interventions implemented as appropriate) Progress progress toward functional goals as expected Coping/Psychosocial Response Interventions Plan of Care Reviewed with patient OUTCOME EVALUATION NOTE: OUTCOME SUMMARY: Pt reports being slightly less uncomfortable than earlier. VSS improving along with her labs. Highest Temp was 37.7 at 2330. Independently showered and cared for self last evening. Was able to shower. Left breast remains reddened but less painful to touch. Started on Daptomycin, has to dump urine at this point. Getting large quantities from right side (60ml) and very little from the left (10 ml). PIV infusing still, pt does not have much of an appetite and is not drinking much.Staying medicated with ATC Tylenol with some relief. PLAN MOVING FORWARD: Continue antibiotics daily, monitor labs, assist with pumping prn, VS q 4. Left breast US today. To be seen by Infectious disease specialist today. INDIVIDUALIZED FALL PREVENTION INTERVENTIONS: Patient-specific fall risk factors per assessment: [current deficits]: None Assistance [level of assistance required for transfers and ambulation]: None Supervision [direct monitoring required during toileting and ADLs]: None Surveillance [continuous indirect monitoring]: Purposeful rounding Patient-specific fall prevention interventions for sensory deficits provided, if applicable: NA CPG GOAL OUTCOME EVALUATION: Goal: Individualization and Mutuality Outcome: Ongoing (Interventions Implemented as Appropriate) 10/12/15205510/13/15192710/14/15622 Individualization Individualize the Plan of Care: -- keep pt informed of POC and changes including medications that may affect her and pumping for infant in ICN -- Patient Specific Preferences -- -- Asssit prn. Patient Specific Goals -- -- Pain manageble Mutuality/Individual Preferences What anxieties, fears or concerns do you have about your health or care? -- Pt is concerned that infection is not getting better -- What questions do you have about your health or care? none -- -- What information would help us give you more personalized care? none -- -- Goal: Fall Prevention-Safe Patient Handling Outcome: Ongoing (Interventions Implemented as Appropriate) 10/13/15219910/14/15622 Safety Interventions Safety Precautions/Fall Reduction -- lighting adjusted for task/safety;family at bedside Musculoskeletal Interventions Activity/Level of Assistance up ad ron -- Positioning independent -- Muscle Strengthening activity/mobility promoted -- Self-Care Promotion personal/BADL objects within reach;personal routines for BADL/IADL promoted -- Richardson Fall Risk History of Falling 0 -- Secondary Diagnosis 15 -- Ambulatory Aids 0 -- Intravenous Therapy/Heparin/Saline Lock 20 -- Gait/Transferring 0 -- Mental Status 0 -- Score 35 -- OTHER Richardson Fall Risk Med -- Goal: Infection Control Outcome: Ongoing (Interventions Implemented as Appropriate) 10/13/152199 Safety Interventions Isolation Precautions standard precautions maintained Infection Prevention rest/sleep promoted;promote handwashing;nutrition promoted;hydration promoted;environmental surveillance Coping/Psychosocial Response Interventions Counseling emotional support provided;goal setting facilitated;personal strengths integrated;reassurance provided;relaxation techniques promoted;understanding of situation facilitated;verbalization of feelings encouraged Goal: Discharge Needs Assessment Outcome: Ongoing (Interventions Implemented as Appropriate) 10/14/15622 Discharge Needs Assessment Concerns to be Addressed no discharge needs identified Readmission Within the Last 30 Days no previous admission in last 30 days Equipment Needed After Discharge none Self-Care Equipment Currently Used at Home none Living Environment Transportation Available car;family or friend will provide Current Health Anticipated Changes Related to Illness none Problem: Infection, Risk/Actual (Adult, Obstetrics) Goal: Identify Signs and Symptoms and Related Risk Factors Signs and symptoms and related risk factors are identified upon initiation of Human Response Clinical Practice Guideline (CPG) Outcome: Ongoing (Interventions Implemented as Appropriate) 10/14/15622 Infection, Risk/Actual Signs and Symptoms (Infection, Risk/Actual) chills * Plan of Care - Kadie Avila RN - 10/13/2015 8:12 PM EDT Problem: General Plan of Care Goal: Plan of Care Review Outcome: Ongoing (Interventions Implemented as Appropriate) 10/13/151927 Plan of Care Review Plan of Care Outcome Status ongoing (interventions implemented as appropriate) Progress declining Coping/Psychosocial Response Interventions Plan of Care Reviewed with patient OUTCOME EVALUATION NOTE: OUTCOME SUMMARY: Pt is not responding to the ABX and continues to be febrile w/ T MAX of 39.5 c. , US was performed , Surgery Attending has assessed the pt. The pt is frustrated that she continues to be febrile. She states she hurts all over, Comfort measures include cool drinks, warm blankets , tylenol PLAN MOVING FORWARD: Continue monitoring per Infection protocol, admin. ABX as ordered, emotional support for pt who hasbeen hospitalized multiple times INDIVIDUALIZED FALL PREVENTION INTERVENTIONS: Patient-specific fall risk factors per assessment: Infection Assistance : pt is independent Supervision [pt is able to reliably call for assistance Surveillance [purposefulrounding Patient-specific fall prevention interventions for sensory deficits provided, if applicable: not atthis time, SO is with pt CPG GOAL OUTCOME EVALUATION: Goal: Individualization and Mutuality Outcome: Ongoing (Interventions Implemented as Appropriate) 10/12/15205510/13/151927 Individualization Individualize the Plan of Care: -- keep pt informed of POC and changes including medications that may affect her and pumping for infant in ICN Patient Specific Interventions -- admin. ABX as ordered, frequent VS Mutuality/Individual Preferences What anxieties, fears or concerns do you have about your health or care? -- Pt is concerned that infection is not getting better What questions do you have about your health or care? none -- What information would help us give you more personalized care? none -- Goal: Fall Prevention-Safe Patient Handling Outcome: Ongoing (Interventions Implemented as Appropriate) 10/13/151927 Safety Interventions Safety Precautions/Fall Reduction family at bedside Musculoskeletal Interventions Activity/Level of Assistance up ad ron Muscle Strengthening activity/mobility promoted Self-Care Promotion personal/BADL objects within reach Richardson Fall Risk History of Falling 0 Secondary Diagnosis 15 Ambulatory Aids 0 Intravenous Therapy/Heparin/Saline Lock 20 Gait/Transferring 0 Mental Status 0 Score 35 OTHER Richardson Fall Risk Med Goal: Infection Control Outcome: Ongoing (Interventions Implemented as Appropriate) 10/13/1580610/13/151927 Safety Interventions Isolation Precautions -- standard precautions maintained Infection Prevention -- environmental surveillance;hydration promoted;nutrition promoted;promote handwashing;rest/sleep promoted Coping/Psychosocial Response Interventions Counseling problem solving facilitated;personal strengths integrated;reassurance provided -- Goal: Discharge Needs Assessment Outcome: Ongoing (Interventions Implemented as Appropriate) 10/13/151927 Discharge Needs Assessment Readmission Within the Last 30 Days clinical decline Equipment Needed After Discharge none Self-Care Equipment Currently Used at Home none Living Environment Transportation Available car Problem: Infection, Risk/Actual (Adult, Obstetrics) Goal: Infection Prevention/Resolution/Control Patient will demonstrate the desired outcomes. Outcome: Ongoing (Interventions Implemented as Appropriate) 10/13/151927 Infection, Risk/Actual (Adult, Obstetrics) Infection Prevention/Resolution/Control unable to achieve outcome * Consult Note - Aggie Norton MD - 10/13/2015 4:12 PM EDT [facility] Department of Surgery Inpatient Consult Note Consultation Requested by: Itzel Kelly MD History of Present Illness: We are seeing Kiana Gallegos today at the request of Pretty Vazquez MD for evaluation and advice about a possible left breast abscess. She is 5.5 weeks from a at 28w2d for a cord prolapse who has been treated for mastitis of the left breast. She was initially treated with dicloxacillin on 09/21/2015 for a total of days and the erythema and tenderness then resolved. A few days later the symptoms recurred and she was then treated with a 10 day course of keflex, however the pain persisted though the erythema improved. She admitted yesterday and started on clinda, however she then became febrile to 39, tachy to the 130s and mildly hypotensive with a SBP in the 90s, thus she was started on vanc. She is now complaining if itching along her face and swelling of the lips so the vanc was stopped. We were consulted regarding a possible abscess that was may have been seen on ultrasound as noted by the tech. Currently, the patient reports significant tenderness of the left breast but no area of drainage. Past Medical History: Past Medical History Diagnosis Date ??? Mastitis Past Surgical History Procedure Laterality Date ??? Irwin tooth extraction ??? section, low transverse Family History: Noncontributory for bleeding/clotting disorders Social History: Social History Social History ??? Marital status: Spouse name: N/A ??? Number of children: N/A ??? Years of education: N/A Occupational History ??? Not on file. Social History Main Topics ??? Smoking status: Never Smoker ??? Smokeless tobacco: Never Used ??? Alcohol use No ??? Drug use: No ??? Sexual activity: Yes Partners: Male Other Topics Concern ??? Not on file Social History Narrative Review of Systems: As stated above, otherwise negative Physical Exam: Temp: [36.6 ??C (97.9 ??F)-39.4 ??C (102.9 ??F)] Heart Rate: [114-136] Resp: [18-22] BP: (93-120)/(55-94) SpO2: [98 %-100 %] Gen: awake, alert, no acute distress CV: sinus tach, no murmurs Pulm: clear b/l, no wheezing Abd: soft, nontender, nondistended Ext: no edema, pulses +2 b/l Breast: right breast without erythema or tenderness, left breast engorged with area of erythema marked and unchanged since 12pm, tender to palpation, no palpable fluctuance, small area of induration at 12 o'clock, no evidence of skin necrosis or drainage Data independently reviewed: Recent Results (from the past 24 hour(s)) Hemogram Result Value Ref Range WBC 11.8 (H) 4.0 - 10.0 x10(3)/mcL RBC 4.51 3.93 - 5.22 x10(6)/mcL Hemoglobin 11.0 (L) 11.2 - 15.7 gm/dL Hematocrit 34.7 34.0 - 45.0 % MCV 76.9 (L) 79.0 - 94.0 fL MCH 24.4 (L) 26.6 - 32.2 pg MCHC 31.7 (L) 32.0 - 36.5 gm/dL Platelets 289 145 - 370 x10(3)/mcL RDWSD 37.4 35.0 - 46.0 fL RDWCV 13.3 10.9 - 14.4 % MPV 11.1 9.0 - 12.0 fL nRBC % Auto 0.0 % nRBC Abs Auto 0.000 0.000 - 0.012 x10(3)/mcL Differential, Automated Result Value Ref Range Neutrophils % 89.1 % Neutr Abs (ANC) 10.55 (H) 1.50 - 6.30 x10(3)/mcL Lymphocytes % 5.8 % Lymphocytes Abs 0.7 (L) 1.0 - 3.6 x10(3)/mcL Monocytes % 3.7 % Monocyte Abs 0.4 0.2 - 1.0 x10(3)/mcL Eosinophils % 1.0 % Eosinophils Abs 0.1 0.0 - 0.5 x10(3)/mcL Basophils % 0.1 % Basophils Abs 0.0 0.0 - 0.2 x10(3)/mcL Immature Gran % 0.30 % Mimi Gran Abs 0.03 0.00 - 0.05 x10(3)/mcL Lactate, whole blood, send to lab Result Value Ref Range Lactate WB 1.9 0.5 - 2.2 mmol/L Hemogram Result Value Ref Range WBC 15.2 (H) 4.0 - 10.0 x10(3)/mcL RBC 3.84 (L) 3.93 - 5.22 x10(6)/mcL Hemoglobin 9.4 (L) 11.2 - 15.7 gm/dL Hematocrit 29.9 (L) 34.0 - 45.0 % MCV 77.9 (L) 79.0 - 94.0 fL MCH 24.5 (L) 26.6 - 32.2 pg MCHC 31.4 (L) 32.0 - 36.5 gm/dL Platelets 222 145 - 370 x10(3)/mcL RDWSD 38.7 35.0 - 46.0 fL RDWCV 13.6 10.9 - 14.4 % MPV 11.2 9.0 - 12.0 fL nRBC % Auto 0.0 % nRBC Abs Auto 0.000 0.000 - 0.012 x10(3)/mcL Differential, Automated Result Value Ref Range Neutrophils % 90.0 % Neutr Abs (ANC) 13.71 (H) 1.50 - 6.30 x10(3)/mcL Lymphocytes % 5.8 % Lymphocytes Abs 0.9 (L) 1.0 - 3.6 x10(3)/mcL Monocytes % 3.0 % Monocyte Abs 0.5 0.2 - 1.0 x10(3)/mcL Eosinophils % 0.3 % Eosinophils Abs 0.0 0.0 - 0.5 x10(3)/mcL Basophils % 0.1 % Basophils Abs 0.0 0.0 - 0.2 x10(3)/mcL Immature Gran % 0.80 % Mimi Gran Abs 0.12 (H) 0.00 - 0.05 x10(3)/mcL Left breast ultrasound: There is an extensive network of thin (1 - 4 mm) deep, irregular , linear branching fluid collections. No larger, focal drainable fluid collection / abscess is seen. A followup ultrasound may be helpful as this process may resolve with continued medical therapy or develop into a drainable abscess. Impression: 25 year old female with left breast mastitis, no definite drainable collection at this time Recommendation: - needs gram positive coverage, to include MRSA coverage as zosyn will not cover - can start linezolid, clinda, or bactrim, or may benefit ID input - will need repeat ultrasound tomorrow to eval for development of abscess collection - will need adequate fluid resuscitation in the setting of sepsis Discussed with Dr. Tierra NORTON MD 10/13/2015 3506 Thank you for this consult. If you have any questions regarding this consult, please page [phone] (Nights) if you have any further questions. [x] Consult service to continue to follow [] Consult service to sign off Associated attestation - Eliana Mayorga MD - 10/13/2015 8:31 PM EDT I have seen the patient and reviewed the resident's above history and I agree with the details as written. The assessment and plan were formulated in discussion with me and I agree with them as documented. Pertinent History: 25F 5 weeks who developed mastitis about 4 weeks ago of the left breast. She was treated with dicloxacillin and symtpoms resolved. Then after a few days it returned and was then treated with keflex for 10days. During this time, her symptoms did not fully improve and pain persisted. She was admitted yesterday with worsening pain, redness and fever to 39. She received clindamycin without effect. She was switched to vanco which she has a possible allergic reaction to.US done today shows edema and fluid in ducts consistent with cellulitis but no drainable collection. Pertinent Exam: Tachy to 106 regular. 38C 108/69 Left breast with erythema and tenderness, outlined to encompass almost the entire superior breast. Non-tender inferior to the nipple. There is no fluctuance or one particular area that is more prominent. Major issues addressed: Left breast cellulitis refractory to dicloxacillin and keflex. Concern for MRSA. No abscess on US yet may develop one over the next few days. Currently no area to surgically drain. Plan: Increase antibiotic coverage to include MRSA. (zosyn does not have adequate coverage). May need ID input in regards to best treatment in light of patient having allergic reaction to vanco. Recommend repeat US tomorrow. If collection develops, will need drainage. FU blood cultures Eliana Mayorga MD * Plan of Care - Yovany Pineda RN - 10/13/2015 6:10 AM EDT Problem: Infection, Risk/Actual (Adult, Obstetrics) Goal: Identify Signs and Symptoms and Related Risk Factors Signs and symptoms and related risk factors are identified upon initiation of Human Response Clinical Practice Guideline (CPG) Outcome: Ongoing (Interventions Implemented as Appropriate) 10/13/15 0557 Infection, Risk/Actual Personal Related Risk Factors (Infection, Risk/Actual) stress Environmental Related Risk Factors (Infection, Risk/Actual) other (see comments) Physiological Related Risk Factors (Infection, Risk/Actual) other (see comments) Treatment Related Related Risk Factors (Infection, Risk/Actual) invasive device/lines/tubes;medication Signs and Symptoms (Infection, Risk/Actual) body temperature changes;chills;feeding poorly;heart rate increase;pain/pressure;swelling/edema OUTCOME EVALUATION NOTE: OUTCOME SUMMARY: Pt's pain has remained an average of 6-7/10 throughout the night despite Ibuprofen and Tylenol. Letbreast is very tender and appears swollen and red. She has breast pumped twice with less milk produced from left side. She has also had 2 episodes of reported chills. Temp max of 38.1 orally which went down with Tylenol. PLAN MOVING FORWARD: Continue to monitor s/s of infection. Continue Clindamycin IV treatment as ordered. Encourage pumping and fluid intake. Treat pain and fever as needed with Ibuprofen and Tylenol. Plan to US left breast today. INDIVIDUALIZED FALL PREVENTION INTERVENTIONS: Patient-specific fall risk factors per assessment: [current deficits]: Infection and IV infusion running. Assistance [level of assistance required for transfers and ambulation]: Pt transfers and ambulates independently. Supervision [direct monitoring required during toileting and ADLs]: Pt needs assistance with setting up and cleaning of pump supplies when breast pumping, as she reports feeling weak and exhausted. Surveillance [continuous indirect monitoring]: Purposeful rounding and nurse to nurse bedside report Patient-specific fall prevention interventions for sensory deficits provided, if applicable: Na CPG GOAL OUTCOME EVALUATION: documented in this encounter Plan of Treatment Not on file documented as of this encounter Procedures Procedure Name Priority Date/Time Associated Diagnosis Comments US BREAST SCAN ONLY LIMITED LEFT Routine 10/14/2015 2:25 PM EDT BMP W/FASTING GLUCOSE Routine 10/14/2015 3:35 AM EDT SCAN, PERIPHERAL BLOOD Routine 10/14/2015 3:35 AM EDT HEMOGRAM Routine 10/14/2015 3:35 AM EDT DIFFERENTIAL, AUTOMATED Routine 10/14/2015 3:35 AM EDT CBC (WITH DIFF) Routine 10/14/2015 3:35 AM EDT CK Routine 10/14/2015 3:35 AM EDT BODY FLUID CULTURE, AEROBIC & ANAEROBIC Routine 10/13/2015 11:05 PM EDT BODY FLUID CULTURE, AEROBIC Routine 10/13/2015 11:05 PM EDT HEMOGRAM Routine 10/13/2015 2:41 PM EDT DIFFERENTIAL, AUTOMATED Routine 10/13/2015 2:41 PM EDT LACTATE, WHOLE BLOOD Routine 10/13/2015 2:41 PM EDT BLOOD CULTURE STAT 10/13/2015 2:41 PM EDT CBC (WITH DIFF) Routine 10/13/2015 2:41 PM EDT BLOOD CULTURE STAT 10/13/2015 2:35 PM EDT US BREAST SCAN ONLY LIMITED LEFT Routine 10/13/2015 12:34 PM EDT URINE HOLD Routine 10/13/2015 11:57 AM EDT URINALYSIS WITH REFLEX CULTURE Routine 10/13/2015 11:57 AM EDT URINE CULTURE Routine 10/13/2015 11:57 AM EDT HEMOGRAM Routine 10/12/2015 6:59 PM EDT DIFFERENTIAL, AUTOMATED Routine 10/12/2015 6:59 PM EDT CBC (WITH DIFF) Routine 10/12/2015 6:59 PM EDT documented in this encounter Results * US Breast Scan Only Left (10/14/2015 2:25 PM EDT) Anatomical Region Laterality Modality Chest, T-spine Left Ultrasound 10/14/2015 2:34 PM EDT Impressions 10/14/2015 5:47 PM EDT Again noted, multiple branching and interconnecting tubular hypoechoic areas measuring less than 1 cm in thickness in the mid to lateral left breast at approximately the 2-3 o'clock position. No drainable organized focal fluid collection identified ? Susana Varma MD Electronically Signed Final Report ?? 10/14/2015 05:47 pm Narrative 10/14/2015 5:47 PM EDT Breast ? (Signed Final 10/14/2015 05:47 pm) PATIENT INFO: ID #: ? [id number] ?: ??[birth year] (25 yrs) Name: ? KIANA GALLEGOS ? Visit Date: 10/14/2015 02:34 pm PERFORMED BY: Performed By: ? Kenn Hobbs RDMS Attending: ?Avani DIEHL, Susana Shanks Associate: ?Leonardo DIEHL, Sam Palmer Referred By: ?IVETTE BARCENAS SERVICE(S) PROVIDED: ??UBR - Ultrasound Breast Scan Only LIMITED ? [id number] ??LEFT ??- [id number] INDICATIONS: ??eval for development of asbcess LEFT BREAST: Comment: ?Again noted, multiple branching and ? interconnecting tubular hypoechoic areas ? measuring less than 1 cm in thickness in the mid ? to lateral left breast at approximately the 2-3 ? o'clock position. No drainable organized focal fluid ? collection identified. Itzel Kelly MD IMG US GEN ORDERABLE S * Scan, Peripheral Blood (10/14/2015 3:35 AM EDT) [facility] Plat estimate Normal [facility] RBC Morphology Normal [facility] Blood specimen (specimen) 10/14/2015 3:35 AM EDT 10/14/2015 3:46 AM EDT Narrative Resulting Agency Comment Spec In Lab Itzel Kelly MD HEMATOLOGY ORDERABLE S [facility] [place] [address] * (ABNORMAL) Differential, Automated (10/14/2015 3:35 AM EDT) [facility] Neutrophil % 75.4 % [facility] Neutrophil Absolute 8.10(H) 1.50 - 6.30 x10(3)/mc L [facility] Lymph % 15.1 % [facility] Lymphocytes Abs 1.6 1.0 - 3.6 x10(3)/mc L [facility] Monocyte % 4.9 % [facility] Monocyte Abs 0.5 0.2 - 1.0 x10(3)/[facility] [place] [facility] Eos % 3.4 % [facility] Eosinophils Abs 0.4 0.0 - 0.5 x10(3)/[facility] [place] [facility] Basophil % 0.2 % [facility] Baso Absolute 0.0 0.0 - 0.2 x10(3)/[facility] [place] [facility] Immature Gran % 1.00 % [facility] Comment: Immature granulocytes(IG's)percentage and absolute count will include metamyelocytes, myelocytes, and promyelocytes. Blood smears from CBCs yielding IG's will be scanned manually for concordance. If this scan disagrees with the automated IG or if promyelocytes are noted, a manual differential will be performed. Immature Gran Absolute 0.11(H) 0.00 - 0.05 x10(3)/[facility] [place] [facility] Blood specimen (specimen) 10/14/2015 3:35 AM EDT 10/14/2015 3:46 AM EDT Narrative Resulting Agency Comment Spec In Lab Itzel Kelly MD HEMATOLOGY ORDERABLE S [facility] [place] [address] * (ABNORMAL) Hemogram (10/14/2015 3:35 AM EDT) White Blood Cell 10.8(H) 4.0 - 10.0 x10(3)/[facility] [place] [facility] Red Blood Cell 3.76(L) 3.93 - 5.22 x10(6)/[facility] [place] [facility] Hemoglobin 9.2(L) 11.2 - 15.7 gm/dL [facility] Hematocrit 29.1(L) 34.0 - 45.0 % [facility] Mean Cell Volume 77.4(L) 79.0 - 94.0 fL [facility] Mean Cell Hemoglobin 24.5(L) 26.6 - 32.2 pg [facility] Mean Cell Hemoglobin Concentration 31.6(L) 32.0 - 36.5 gm/dL [facility] Platelet 212 145 - 370 x10(3)/mc L [facility] RDW Standard Deviation 39.3 35.0 - 46.0 fL [facility] RDW coefficient of variation 13.8 10.9 - 14.4 % [facility] Mean Platelet Volume 11.1 9.0 - 12.0 fL [facility] NRBC% auto 0.0 % [facility] NRBC Absolute 0.000 0.000 - 0.012 x10(3)/mc L [facility] Blood specimen (specimen) 10/14/2015 3:35 AM EDT 10/14/2015 3:46 AM EDT Narrative Resulting Agency Comment Spec In Lab Itzel Kelly MD HEMATOLOGY ORDERABLE S Performing Organization Address [facility] Co de Phone Number [facility] [place] [address] * CK (10/14/2015 3:35 AM EDT) Creatine Kinase 36 0 - 160 unit/L [facility] Blood specimen (specimen) 10/14/2015 3:35 AM EDT 10/14/2015 3:46 AM EDT Narrative Resulting Agency Comment Spec In Lab Itzel Kelly MD CHEMISTRY ORDERABLES Performing Organization Address [facility] Co de Phone Number [facility] [place] [address] * (ABNORMAL) BMP w/fasting Glucose (10/14/2015 3:35 AM EDT) Glucose Fasting 98 65 - 99 mg/dL [facility] Comment: ?Fasting* Glucose Interpretive Criteria Normal ?65-99 mg/dL Impaired Fasting glucose ?100-125 mg/dL Consistent with Diabetes Mellitus ? >or= 126 mg/dL *Fasting is defined as no caloric intake for at least 8 hours In the absence of unequivocal hyperglycemia a plasma glucose value of >or= 126 mg/dL should be repeated on a subsequent day. Diagnosis and Classification of Diabetes Mellitus, Position Statement from the [place] [employer]. ??Diabetes Care, Volume 33, Supplement 1, Feb 2009 Blood Urea Nitrogen 7(L) 8 - 18 mg/dL [facility] Creatinine 0.82 0.70 - 1.20 mg/dL [facility] Comment: Please note that the pediatric reference intervals supplied above were not validated at [facility]. Results from pediatric patients should be interpreted in conjunction to the patient's age, height and muscle mass. Sodium 140 135 - 145 mmol/L [facility] Potassium 4.0 3.5 - 5.0 mmol/L [facility] Comment: Please note: ??Patients with WBC >100,000 may have falsely elevated Potassium levels. ??For accurate Potassium quantification in these patients send serum separator tube (gold top) for subsequent determinations. ??Contact the Clinical Chemistry Laboratory if there are any questions. Chloride 103 98 - 107 mmol/L [facility] Carbon Dioxide 22 22 - 31 mmol/L [facility] Anion Gap 15 5 - 15 mmol/L [facility] Calcium 8.4(L) 8.5 - 10.5 mg/dL [facility] Est Glomerular Filtration Rate >60 >=60 [facility] Comment: This estimated GFR (eGFR) value was calculated using the MDRD equation which has been validated on patients between the ages of 18 and 70. The MDRD should not be used to assess kidney function in patients < 18 years of age or in patients with extremes of body mass, or in patients with acute kidney failure. This value should be multiplied by 1.2 for patients. For further information please copy and paste the following links into your internet browser. [email or web address] Blood specimen (specimen) 10/14/2015 3:35 AM EDT 10/14/2015 3:46 AM EDT Narrative Resulting Agency Comment Spec In Lab Itzel Kelly MD CHEMISTRY ORDERABLES [facility] [place] [address] * (ABNORMAL) Body fluid culture (10/13/2015 11:05 PM EDT) Body Fluid Culture Few Enterobacter cloacae Few Stenotrophomonas maltophilia Few mixed bacterial morphotypes suggestive of normal cutaneous matt (A) [facility] Gram Stain Few White Blood Cells seen No microorganisms seen. (A) [facility] Organism Enterobacter cloacae(A) [facility] Organism Stenotrophomonas maltophilia(A) [facility] Specimen of unknown material (specimen) 10/13/2015 11:05 PM EDT 10/14/2015 9:28 AM EDT Comment:BREAST MILK Narrative Resulting Agency Comment Spec In Lab Organism Antibiotic Method Susceptibility Enterobacter cloacae Amikacin MICROSCAN METHOD Sensitive Enterobacter cloacae Ampicillin MICROSCAN METHOD Resistant Enterobacter cloacae Ampicillin + Sulbactam MICROSCAN METHOD Resistant Enterobacter cloacae Aztreonam MICROSCAN METHOD Sensitive Enterobacter cloacae Cefazolin MICROSCAN METHOD Resistant Enterobacter cloacae Cefepime MICROSCAN METHOD Sensitive Enterobacter cloacae Cefoxitin MICROSCAN METHOD Resistant Enterobacter cloacae Ceftazidime MICROSCAN METHOD Sensitive Enterobacter cloacae Ceftriaxone MICROSCAN METHOD Sensitive Comment: This organism carries inducible Beta-lactamase. ??Monotherapy with Ceftriaxone or Ceftazidime is not advised. Enterobacter cloacae Cefuroxime MICROSCAN METHOD Sensitive Enterobacter cloacae Ciprofloxacin MICROSCAN METHOD Sensitive Enterobacter cloacae Gentamicin MICROSCAN METHOD Sensitive Enterobacter cloacae Levofloxacin MICROSCAN METHOD Sensitive Enterobacter cloacae Meropenem MICROSCAN METHOD Sensitive Enterobacter cloacae Piperacillin/Tazobactam MICROSCAN METHOD Sensitive Enterobacter cloacae Tetracycline MICROSCAN METHOD Sensitive Enterobacter cloacae Tigecycline MICROSCAN METHOD Sensitive Enterobacter cloacae Tobramycin MICROSCAN METHOD Sensitive Enterobacter cloacae Trimethoprim/Sulfa MICROSCAN METH OD Sensitive Stenotrophomonas maltophilia Levofloxacin MICROSCAN ME THOD Sensitive Stenotrophomonas maltophilia Trimethoprim/Sulfa MICROS CAN METHOD Sensitive Itzel Kelly MD MICROBIOLOGY - [facility] AL ORDERABLES [facility] [place] [address] * (ABNORMAL) Differential, Automated (10/13/2015 2:41 PM EDT) Neutrophil % 90.0 % [facility] Neutrophil Absolute 13.71(H) 1.50 - 6.30 x10(3)/mc L [facility] Lymph % 5.8 % [facility] Lymphocytes Abs 0.9(L) 1.0 - 3.6 x10(3)/mc L [facility] Monocyte % 3.0 % [facility] Monocyte Abs 0.5 0.2 - 1.0 x10(3)/mc L [facility] Eos % 0.3 % [facility] Eosinophils Abs 0.0 0.0 - 0.5 x10(3)/mc L [facility] Basophil % 0.1 % [facility] Baso Absolute 0.0 0.0 - 0.2 x10(3)/mc L [facility] Immature Gran % 0.80 % [facility] Comment: Immature granulocytes(IG's)percentage and absolute count will include metamyelocytes, myelocytes, and promyelocytes. Blood smears from CBCs yielding IG's will be scanned manually for concordance. If this scan disagrees with the automated IG or if promyelocytes are noted, a manual differential will be performed. Immature Gran Absolute 0.12(H) 0.00 - 0.05 x10(3)/mc L [facility] Blood specimen (specimen) 10/13/2015 2:41 PM EDT 10/13/2015 2:41 PM EDT Narrative Resulting Agency Comment Spec In Lab Itzel Kelly MD HEMATOLOGY ORDERABLE S [facility] [place] [address] * (ABNORMAL) Hemogram (10/13/2015 2:41 PM EDT) White Blood Cell 15.2(H) 4.0 - 10.0 x10(3)/mc L [facility] Red Blood Cell 3.84(L) 3.93 - 5.22 x10(6)/mc L [facility] Hemoglobin 9.4(L) 11.2 - 15.7 gm/dL [facility] Hematocrit 29.9(L) 34.0 - 45.0 % [facility] Mean Cell Volume 77.9(L) 79.0 - 94.0 fL [facility] Mean Cell Hemoglobin 24.5(L) 26.6 - 32.2 pg [facility] Mean Cell Hemoglobin Concentration 31.4(L) 32.0 - 36.5 gm/dL [facility] Platelet 222 145 - 370 x10(3)/mc L [facility] RDW Standard Deviation 38.7 35.0 - 46.0 fL [facility] RDW coefficient of variation 13.6 10.9 - 14.4 % [facility] Mean Platelet Volume 11.2 9.0 - 12.0 fL [facility] NRBC% auto 0.0 % [facility] NRBC Absolute 0.000 0.000 - 0.012 x10(3)/mc L [facility] Blood specimen (specimen) 10/13/2015 2:41 PM EDT 10/13/2015 2:41 PM EDT Narrative Resulting Agency Comment Spec In Lab Itzel Kelly MD HEMATOLOGY ORDERABLE S [facility] [place] [address] * Lactate, whole blood, send to lab (10/13/2015 2:41 PM EDT) Lactate WB 1.9 0.5 - 2.2 mmol/L [facility] Blood specimen (specimen) 10/13/2015 2:41 PM EDT 10/13/2015 2:41 PM EDT Narrative Resulting Agency Comment Spec In Lab Itzel Kelly MD CHEMISTRY ORDERABLES Performing Organization Address City/[facility]/ZIP Co de Phone Number [facility] [place] [address] * Blood culture (10/13/2015 2:41 PM EDT) Blood Culture No growth at 5 days. [facility] Blood specimen (specimen) 10/13/2015 2:41 PM EDT 10/13/2015 3:40 PM EDT Comment:LH Narrative Resulting Agency Comment Spec In Lab Itzel Kelly MD MICROBIOLOGY - BLOOD ORDERABLES Performing Organization Address City/[facility]/ZIP Co de Phone Number [facility] [place] [address] * Blood culture (10/13/2015 2:35 PM EDT) Blood Culture No growth at 5 days. [facility] Blood specimen (specimen) 10/13/2015 2:35 PM EDT 10/13/2015 3:48 PM EDT Comment:L AC Narrative Resulting Agency Comment Spec In Lab Itzel Kelly MD MICROBIOLOGY - BLOOD ORDERABLES Performing Organization Address City/[facility]/ZIP Co de Phone Number [facility] [place] [address] * US Breast Scan Only Left (10/13/2015 12:34 PM EDT) Anatomical Region Laterality Modality Chest, T-spine Left Ultrasound 10/13/2015 12:3 5 PM EDT Impressions 10/13/2015 3:57 PM EDT There is an extensive network of thin (1 - 4 mm) deep, irregular , linear branching fluid collections. No larger, focal drainable fluid collection / abscess is seen. ??A followup ultrasound may be helpful as this process may resolve with continued medical therapy or develop into a drainable abscess. ? Demar De La Cruz MD Electronically Signed Final Report ?? 10/13/2015 03:57 pm Narrative 10/13/2015 3:57 PM EDT Breast ? (Signed Final 10/13/2015 03:57 pm) PATIENT INFO: ID #: ? [id number] ?: ??[birth year] (25 yrs) Name: ? KIANA Fam EL ? Visit Date: 10/13/2015 12:35 pm PERFORMED BY: Performed By: ? Kenn Hobbs RDMS Attending: ?Jono DIEHL, Demar Odell. Associate: ?Leonardo DIEHL, Sam Rodas. Referred By: ?[facility] PROVIDED: ??UBR - Ultrasound Breast Scan Only LEFT - ?[id number] ??[id number] INDICATIONS: ??Mastitis, failed abx therapy x 2, evaluate for ??breast abscess LEFT BREAST: Comment: ?Multiple thin, linear branching interconnected ? ribbons of flujid throughout the breast with ? hyperemia, Itzel Kelly MD IMG US GEN ORDERABLE S * Urine culture (10/13/2015 11:57 AM EDT) Urine Culture No growth (Less than 1,000 cfu/ml). [facility] Urine specimen obtained by clean catch procedure (specimen) 10/13/2015 11:57 AM EDT 10/13/2015 7:11 PM EDT Narrative Resulting Agency Comment Spec In Lab Itzel Kelly MD MICROBIOLOGY - GENER AL ORDERABLES Performing Organization Address [facility]/ZIP Co de Phone Number [facility] [place] [phone] * Urine Hold (10/13/2015 11:57 AM EDT) Hold, Urine Sample in lab. [facility] Urine specimen (specimen) Urine / Unknown 10/13/2015 11:57 AM EDT 10/13/2015 4:39 PM EDT Itzel Kelly MD URINE ORDERABLES Performing Organization Address [facility]/ZIP Co de Phone Number [facility] [place] [phone] * (ABNORMAL) Urinalysis with reflex Culture (10/13/2015 11:57 AM EDT) Glucose, Urine Dipstick Negative Negative mg/dL [facility] Protein, Urine Dipstick Negative Negative mg/dL [facility] Bilirubin, Urine Dipstick Negative Negative mg/dL [facility] Comment: Clinical correlation required for positive Urine Bilirubin results as false positive may occur with some drugs and drug related products. If a false positive is suspected a serum total bilirubin should be considered if clinically indicated. Urobilinogen, Urine Dipstick Normal Normal mg/dL [facility] pH, Urn (dipstick) 7.0 5.0 - 8.0 [facility] Blood, Urine Dipstick Negative Negative mg/dL [facility] Ketone, Urine Dipstick Negative Negative mg/dL [facility] Nitrite, Urine Dipstick Negative Negative [facility] Leukocytes, Urine Dipstick Small(A) Negative [facility] Appearance, Urine Dipstick Hazy(A) Clear [facility] Specific [place] Urine Automated 1.010 1.002 - 1.030 [facility] Color, Urine Dipstick Yellow Yellow [facility] RBC, Urine <1 0 - 4 /HPF [facility] WBC, Urine 8(H) 0 - 5 /HPF [facility] Bacteria, Urine Rare(A) None /HPF [facility] Squamous Epithelial Cells, Urine 15(H) <=4 /HPF [facility] Reflex to Culture Yes [facility] Urine specimen obtained by clean catch procedure (specimen) 10/13/2015 11:57 AM EDT 10/13/2015 4:39 PM EDT Narrative Resulting Agency Comment Spec In Lab Itzel Kelly MD URINE ORDERABLES [facility] [place] [address] * (ABNORMAL) Differential, Automated (10/12/2015 6:59 PM EDT) Neutrophil % 89.1 % [facility] Neutrophil Absolute 10.55(H) 1.50 - 6.30 x10(3)/mc L [facility] Lymph % 5.8 % [facility] Lymphocytes Abs 0.7(L) 1.0 - 3.6 x10(3)/mc L [facility] Monocyte % 3.7 % [facility] Monocyte Abs 0.4 0.2 - 1.0 x10(3)/mc L [facility] Eos % 1.0 % [facility] Eosinophils Abs 0.1 0.0 - 0.5 x10(3)/ L [facility] Basophil % 0.1 % [facility] Baso Absolute 0.0 0.0 - 0.2 x10(3)/ L [facility] Immature Gran % 0.30 % [facility] Comment: Immature granulocytes(IG's)percentage and absolute count will include metamyelocytes, myelocytes, and promyelocytes. Blood smears from CBCs yielding IG's will be scanned manually for concordance. If this scan disagrees with the automated IG or if promyelocytes are noted, a manual differential will be performed. Immature Gran Absolute 0.03 0.00 - 0.05 x10(3)/mc L [facility] Blood specimen (specimen) 10/12/2015 6:59 PM EDT 10/12/2015 8:25 PM EDT Narrative Resulting Agency Comment Spec In Lab Itzel Kelly MD HEMATOLOGY ORDERABLE S [facility] [place] [address] * (ABNORMAL) Hemogram (10/12/2015 6:59 PM EDT) White Blood Cell 11.8(H) 4.0 - 10.0 x10(3)/ L [facility] Red Blood Cell 4.51 3.93 - 5.22 x10(6)/mc L [facility] Hemoglobin 11.0(L) 11.2 - 15.7 gm/dL [facility] Hematocrit 34.7 34.0 - 45.0 % [facility] Mean Cell Volume 76.9(L) 79.0 - 94.0 fL [facility] Mean Cell Hemoglobin 24.4(L) 26.6 - 32.2 pg [facility] Mean Cell Hemoglobin Concentration 31.7(L) 32.0 - 36.5 gm/dL [facility] Platelet 289 145 - 370 x10(3)/mc L [facility] RDW Standard Deviation 37.4 35.0 - 46.0 fL [facility] RDW coefficient of variation 13.3 10.9 - 14.4 % [facility] Mean Platelet Volume 11.1 9.0 - 12.0 fL [facility] NRBC% auto 0.0 % [facility] NRBC Absolute 0.000 0.000 - 0.012 x10(3)/mc L [facility] Blood specimen (specimen) 10/12/2015 6:59 PM EDT 10/12/2015 8:25 PM EDT Narrative Resulting Agency Comment Spec In Lab Itzel Kelly MD HEMATOLOGY ORDERABLE S Performing Organization Address City/State[facility] Co de Phone Number [facility] [place] [address] documented in this encounter Visit Diagnoses Diagnosis Mastitis, obstetric, condition- Primary Nonpurulent mastitis, H/O section Other postprocedural status documented in this encounter Admitting Diagnoses Diagnosis Mastitis, obstetric, condition Nonpurulent mastitis, documented in this encounter Administered Medications Inactive Administered Medications - up to 3 most recent administrations Medication Order MAR Action Action Date Dose Rate Site acetaminophen (TYLENOL) tablet 1,000 mg 1,000 mg, Oral, EVERY 6 HOURS PRN, Starting on Thu10/12/15 at 1857, Until Thu10/15/15 at 1902, Pain, - Moderate pain (pain scale 4-6). - Maximum dose of acetaminophen is 4000 mg from all sources in 24 hours., Recovery (Recovery-Hospital Unit), Routine Given 10/14/2015 12:39 AM EDT 1,000 mg Given 10/13/2015 6:33 PM EDT 1,000 mg Given 10/13/2015 11:43 AM EDT 1,000 mg acetaminophen (TYLENOL) tablet 650 mg 650 mg, Oral, EVERY 4 HOURS PRN, Starting on Thu10/12/15 at 1857, Until Thu10/15/15 at 1902, Pain, - Mild pain (pain scale 1-3) - Maximum dose of acetaminophen is 4000 mg from all sources in 24 hours., Recovery (Recovery-Hospital Unit), Routine clindamycin (CLEOCIN) 600mg in dextrose 5% 50mL 600 mg, Intravenous, EVERY 8 HOURS, First dose on Thu10/12/15 at 2000, Until Discontinued, Administer over 20 Minutes, Indication for (Active or Suspected): Skin/Skin Structure Given 10/13/2015 12:10 PM EDT 600 m g 150 mL/hr Given 10/13/2015 4:33 AM EDT 600 mg 150 mL/hr Given 10/12/2015 8:00 PM EDT 600 mg 150 mL/hr clindamycin (CLEOCIN) 600mg in dextrose 5% 50mL 600 mg, Intravenous, EVERY 8 HOURS, First dose on Thu10/13/15 at 1800, Until Discontinued, Administer over 20 Minutes, Indication for (Active or Suspected): Skin/Skin Structure Given 10/13/2015 7:09 PM EDT 600 mg 150 mL/hr DAPTOmycin (CUBICIN) 375 mg in sodium chloride 0.9% 57.5 mL 375 mg, Intravenous, at 115 mL/hr, EVERY 24 HOURS, First dose on Thu10/13/15 at 2300, Until Discontinued, Routine Given 10/14/2015 11:19 PM EDT 375 mg 115 mL/hr Given 10/13/2015 11:54 PM EDT 375 mg 115 mL/hr diphenhydrAMINE (BENADRYL) injection 12.5 mg 12.5 mg, Intravenous, EVERY 1 HOUR PRN, 2 doses, Starting on Thu10/13/15 at 1548, Until Thu10/15/15 at 1902, Itching, Routine Given 10/13/2015 3:55 PM EDT 12.5 mg ibuprofen (ADVIL;MOTRIN) tablet 600 mg 600 mg, Oral, EVERY 6 HOURS PRN, Starting on Thu10/12/15 at 1857, Until Thu10/15/15 at 1902, Pain, - Do not give if receiving ketorolac. - Mild to moderate pain (pain scale 1-6) - Maximum dose of 3,200 mg from all sources in 24 hours., Recovery (Recovery-Hospital Unit), Routine Given 10/15/2015 9:31 AM EDT 600 mg Given 10/14/2015 10:11 AM EDT 600 mg Given 10/13/2015 12:10 AM EDT 600 mg ibuprofen (ADVIL;MOTRIN) tablet 800 mg 800 mg, Oral, EVERY 8 HOURS PRN, Starting on Thu10/12/15 at 1857, Until 10/15/15 at 1902, Pain, - Do not give if receiving ketorolac. - Severe pain (pain scale 7-10). - Maximum dose of 3,200 mg from all sources in 24 hours., Recovery (Recovery-Hospital Unit), Routine lactated ringers infusion 100 mL/hr, Intravenous, CONTINUOUS, Starting on Thu10/12/15 at 1915, Until 10/14/15 at 1043 New Bag 10/13/2015 8:11 PM EDT 100 mL/hr 100 mL/hr New Bag 10/13/2015 2:56 PM EDT 100 mL/hr 100 mL/hr New Bag 10/13/2015 4:44 AM EDT 100 mL/hr 100 mL/hr lactobacillus (BACID) tablet 1 tablet 1 tablet, Oral, DAILY, First dose on 10/13/15 at 1800, Until Discontinued, Routine Given 10/15/2015 9:25 AM EDT 1 tablet Given 10/14/2015 9:00 AM EDT 1 tablet Given 10/13/2015 8:14 PM EDT 1 tablet ondansetron (ZOFRAN) injection 4 mg 4 mg, Intravenous, EVERY 8 HOURS PRN, Starting on 10/13/15 at 2342, Until 10/15/15 at 1902, Nausea, Routine Given 10/14/2015 12:03 AM EDT 4 mg piperacillin-tazobactam (ZOSYN) 3.375 g in dextrose 5% 50 mL 3.375 g, Intravenous, EVERY 8 HOURS, First dose on 10/13/15 at 1600, Until Discontinued, Administer over 4 Hours, Warning Vesicant/Irritant Medication , Indication for (Active or Suspected): Prophylaxis Given 10/13/2015 4:14 PM EDT 3.375 g 12.5 mL/hr sodium chloride 0.9% 500 mL IV bolus Intravenous, ONCE, 1 dose, On 10/13/15 at 1215 Given 10/13/2015 1:55 PM EDT vancomycin 1.5 g in sodium chloride 0.9% 250 mL 1,500 mg, Intravenous, EVERY 8 HOURS, First dose on 10/13/15 at 1215, Until Discontinued, Maximum infusion rate is 1 gram/hour. If flushing of the face, neck, upper body, arms, and/or back occurs decrease infusion rate by 50% to reduce the severity of symptoms. This medication may have an associated drug lab level. Please see MAR for scheduled level. Warning Vesicant/Irritant Medication , , Dose rounded per Dose Rounding Policy, Routine Given 10/13/2015 1:50 PM EDT 1,500 mg documented in this encounter Active and Recently Administered Medications Times are shown in EDT. Scheduled Medication Order 10/13/2015 10/14/2015 10/15/2015 clindamycin (CLEOCIN) 600mg in dextrose 5% 50mL (CANCELED) 600 mg, Intravenous, EVERY 8 HOURS, First dose on Thu10/12/15 at 2000, Until Discontinued, Administer over 20 Minutes, Indication for (Active or Suspected): Skin/Skin Structure 0433 (Given - Provider: Yovany Pineda RN)1210 (Given - Provider: Kadie Avila, SIMONA) clindamycin (CLEOCIN) 600mg in dextrose 5% 50mL (CANCELED) 600 mg, Intravenous, EVERY 8 HOURS, First dose on 10/13/15 at 1800, Until Discontinued, Administer over 20 Minutes, Indication for (Active or Suspected): Skin/Skin Structure 1909 (Given - Provider: Remedios Jackson, SIMONA) DAPTOmycin (CUBICIN) 375 mg in sodium chloride 0.9% 57.5 mL 375 mg, Intravenous, at 115 mL/hr, EVERY 24 HOURS, First dose on 10/13/15 at 2300, Until Discontinued, Routine 2354 (Given - Provider: Camille Reddy RN) 2319 (Given - Provider: Arielle Mejia RN) lactobacillus (BACID) tablet 1 tablet 1 tablet, Oral, DAILY, First dose on 10/13/15 at 1800, Until Discontinued, Routine 2013 (Given - Provider: Gavi Gomez, RN) 0900 (Given - Provider: Kadie Avila, RN) 0925 (Given - Provider: Shadia Velázquez RN) piperacillin-tazobacta m (ZOSYN) 3.375 g in dextrose 5% 50 mL (CANCELED) 3.375 g, Intravenous, EVERY 8 HOURS, First dose on 10/13/15 at 1600, Until Discontinued, Administer over 4 Hours, Warning Vesicant/Irritant Medication , Indication for (Active or Suspected): Prophylaxis 1614 (Given - Provider: Kadie Avila, SIMONA) sodium chloride 0.9% 500 mL IV bolus (COMPLETED) Intravenous, ONCE, 1 dose, On 10/13/15 at 1215 1355 (Given - Provider: Kadie Avila, RN) vancomycin 1.5 g in sodium chloride 0.9% 250 mL (CANCELED)(Linked Group 1) 1,500 mg, Intravenous, EVERY 8 HOURS, First dose on 10/13/15 at 1215, Until Discontinued, Maximum infusion rate is 1 gram/hour. If flushing of the face, neck, upper body, arms, and/or back occurs decrease infusion rate by 50% to reduce the severity of symptoms. This medication may have an associated drug lab level. Please see MAR for scheduled level. Warning Vesicant/Irritant Medication , , Dose rounded per Dose Rounding Policy, Routine 1350 (Given - Provider: Kadie Avila, SIMONA) Continuous Medication Order 10/13/2015 10/14/2015 10/15/2015 lactated ringers infusion (CANCELED) 100 mL/hr, Intravenous, CONTINUOUS, Starting on Thu10/12/15 at 1915, Until Thu10/14/15 at 1043 0444 (New Bag - Provider: Yovany Pineda RN)1456 (New Bag - Provider: Remedios Jackson RN)2010 (New Bag - Provider: Gavi Gomez, SIMONA) PRN Medication Order 10/13/2015 10/14/2015 10/15/2015 acetaminophen (TYLENOL) tablet 1,000 mg(Linked Group 2) 1,000 mg, Oral, EVERY 6 HOURS PRN, Starting on Thu10/12/15 at 1857, Until Thu10/15/15 at 1902, Pain, - Moderate pain (pain scale 4-6). - Maximum dose of acetaminophen is 4000 mg from all sources in 24 hours., Recovery (Recovery-Hospital Unit), Routine 0441 (Given - Provider: Yovany Pineda RN)1143 (Given - Provider: Kadie Avila RN)1833 (Given - Provider: Kadie Avila RN) 0039 (Given - Provider: Yvonne Lay, SIMONA) acetaminophen (TYLENOL) tablet 650 mg(Linked Group 2) 650 mg, Oral, EVERY 4 HOURS PRN, Starting on Thu10/12/15 at 1857, Until Thu10/15/15 at 1902, Pain, - Mild pain (pain scale 1-3) - Maximum dose of acetaminophen is 4000 mg from all sources in 24 hours., Recovery (Recovery-Hospital Unit), Routine 0441 (See Alternative - Provider: Yovany Pineda RN)1143 (See Alternative - Provider: Kadie Avila RN)1833 (See Alternative - Provider: Kadie Avila RN) 0039 (See Alternative - Provider: Yvonne Lay, SIMONA) diphenhydrAMINE (BENADRYL) injection 12.5 mg 12.5 mg, Intravenous, EVERY 1 HOUR PRN, 2 doses, Starting on Thu10/13/15 at 1548, Until Thu10/15/15 at 1902, Itching, Routine 1555 (Given - Provider: Kadie Avila RN) ibuprofen (ADVIL;MOTRIN) tablet 600 mg(Linked Group 3) 600 mg, Oral, EVERY 6 HOURS PRN, Starting on Thu10/12/15 at 1857, Until Thu10/15/15 at 1902, Pain, - Do not give if receiving ketorolac. - Mild to moderate pain (pain scale 1-6) - Maximum dose of 3,200 mg from all sources in 24 hours., Recovery (Recovery-Hospital Unit), Routine 0010 (Given - Provider: Yovany Pineda RN) 1011 (Given - Provider: Kadie Avila RN) 0931 (Given - Provider: Shadia Velázquez RN) ibuprofen (ADVIL;MOTRIN) tablet 800 mg(Linked Group 3) 800 mg, Oral, EVERY 8 HOURS PRN, Starting on Thu10/12/15 at 1857, Until Thu10/15/15 at 1902, Pain, - Do not give if receiving ketorolac. - Severe pain (pain scale 7-10). - Maximum dose of 3,200 mg from all sources in 24 hours., Recovery (Recovery-Hospital Unit), Routine 0010 (See Alternative - Provider: Yovany Pineda, RN) 1011 (See Alternative - Provider: Kadie Avila, SIMONA) 0931 (See Alternative - Provider: Shadia Velázquez, SIMONA) ondansetron (ZOFRAN) injection 4 mg 4 mg, Intravenous, EVERY 8 HOURS PRN, Starting on 10/13/15 at 2342, Until Thu10/15/15 at 1902, Nausea, Routine 0003 (Given - Provider: Camille Reddy RN) Linked Groups Order Group 1: vancomycin 1.5 g in sodium chloride 0.9% 250 mL (CANCELED)Jump to med 1,500 mg, Intravenous, EVERY 8 HOURS, First dose on 10/13/15 at 1215, Until Discontinued, Maximum infusion rate is 1 gram/hour. If flushing of the face, neck, upper body, arms, and/or back occurs decrease infusion rate by 50% to reduce the severity of symptoms. This medication may have an associated drug lab level. Please see MAR for scheduled level. Warning Vesicant/Irritant Medication , , Dose rounded per Dose Rounding Policy, Routine And Vancomycin, trough (CANCELED) New collection, Timed, PRN, Starting on 10/13/15 at 1152, Until Specified And Vancomycin Level - MAR Order Reminder (CANCELED) NOT APPLICABLE, ONCE, On 10/14/15 at 1130, 1 dose, This alert will be scheduled by a pharmacist after order placement. This order is a reminder to nursing staff to release and draw the PRN drug level at the specified time. It may be necessary to contact phlebotomy 60 minutes prior to the scheduled due time to assure a timely blood draw. Group 2: acetaminophen (TYLENOL) tablet 650 mgJump to med 650 mg, Oral, EVERY 4 HOURS PRN, Starting on Thu10/12/15 at 1857, Until Thu10/15/15 at 1902, Pain, - Mild pain (pain scale 1-3) - Maximum dose of acetaminophen is 4000 mg from all sources in 24 hours., Recovery (Recovery-Hospital Unit), Routine Or acetaminophen (TYLENOL) tablet 1,000 mgJump to med 1,000 mg, Oral, EVERY 6 HOURS PRN, Starting on Thu10/12/15 at 1857, Until Thu10/15/15 at 1902, Pain, - Moderate pain (pain scale 4-6). - Maximum dose of acetaminophen is 4000 mg from all sources in 24 hours., Recovery (Recovery-Hospital Unit), Routine Group 3: ibuprofen (ADVIL;MOTRIN) tablet 600 mgJump to med 600 mg, Oral, EVERY 6 HOURS PRN, Starting on Thu10/12/15 at 1857, Until Thu10/15/15 at 1902, Pain, - Do not give if receiving ketorolac. - Mild to moderate pain (pain scale 1-6) - Maximum dose of 3,200 mg from all sources in 24 hours., Recovery (Recovery-Hospital Unit), Routine Or ibuprofen (ADVIL;MOTRIN) tablet 800 mgJump to med 800 mg, Oral, EVERY 8 HOURS PRN, Starting on Thu10/12/15 at 1857, Until Thu10/15/15 at 1902, Pain, - Do not give if receiving ketorolac. - Severe pain (pain scale 7-10). - Maximum dose of 3,200 mg from all sources in 24 hours., Recovery (Recovery- Hospital Unit), Routine documented in this encounter
--- OUTSIDE RECORDS SUMMARY | 2023-10-31 10:24 | XMS_ITS | Encounter Summary ---
Author Organization Formerly [facility] [place] [address] Care Team Providers Care Soda Worker Name Role Phone Unavailable Primary Care Provider Unavailabl e Reason for Visit * Reason Comments Ultrasound Encounter Details Date Type Department Care Team (Late st Contact Info) Description 07/24/2015 4:30 PM EDT Office Visit Obstetrics [place] [address] Abi Lezama MD [facility] OBSTETRICS [place] [address] History of labor, current , second trimester [...] Sign Reading Time Taken Comments Blood Pressure 110/65 07/24/2015 4:45 PM EDT Pulse - - Temperature - - Respiratory Rate - - Oxygen Saturation - - Inhaled Oxygen Concentration - - Weight 65.6 kg (144 lb 11.2 oz) 07/24/2015 4:45 PM EDT Height 165.1 cm (5' 5) 07/24/2015 4:45 PM EDT Body Mass Index 24.08 07/24/2015 4:45 PM EDT documented in this encounter Progress Notes * Yun Hawkins MD - 07/24/2015 4:53 PM EDT Maternal Medicine follow up visit [facility] 11/23/15 at 22 4/7 week's gestation by LMP 02/17/16 Chief complaint: Here for ultrasound examination Subjective: Feels well. She denies bleeding, leaking of fluid, pain or contractions. She notes goodfetal movement. No pelvic discomfort. She was seen previously by Dr. Yan for consultation on 05/21/15 and by myself for repeat cervical length ultrasound on 06/25/15. Miya continues on 17 hydroxyprogesterone caproate injections. Objective: Appears well Vitals: 07/24/15 1645 BP: 110/65 Abdomen soft, nontender Ultrasound Growth appropriate for gestational age EGA 22 4/7 weeks Amniotic fluid volume normal Placenta posterior Presentation cephalic Cervical length 2.9 cm without dynamic change or funneling Assessment: History of premature labor with advanced cervical dilation prior to . She was actually delivered at 37 weeks with induction of labor for advanced cervical dilation. No evidence today for cervical insufficiency. Plan: Return to care locally. Seen with GLORIA Hatfield Attending. YUN HAWKINS MD, PGY4 07/24/2015 I saw the patient and Dr. Hawkins and agree with her assessment and plan. Abi Lezama MD 07/24/2015 Cc: Veronika Smiley CNM documented in this encounter Plan of Treatment Not on file documented as of this encounter Visit Diagnoses Diagnosis History of labor, current , second trimester documented in this encounter
--- NOTE | 2023-10-31 10:30 | DI.RAD_ITS ---
Exam(s) XR WRIST LT COMPLETE EXAM: XR WRIST LT COMPLETE CLINICAL HISTORY: Wrist pain. TECHNIQUE: 2D digital imaging was performed of the left wrist. Three images were obtained. PA, obl ique and lateral views were obtained. COMPARISON: CR,XR XR WRIST LT COMPLETE from 10/23/2020 FINDINGS: BONES: No acute fracture is present. No bony destructive lesion is seen. JOINTS: The carpal bones are normally aligned. SOFT TISSUE: Normal. IMPRESSION: No acute abnormality. DATA REPOSITORY: RADIATION DOSE DELIVERED:
[2023-10-31 10:35] VITALS: BP 121/90; PULSE 82; RESP 18; TEMP 36.5; O2SAT 98
--- NOTE | 2023-10-31 10:43 | W.ED.GENAD ---
Discharge Plan Disposition Patient Disposition: Home Condition: Stable Discharge Details Clinical Impression: Left wrist sprain Primary Care Provider: Hieu Katz ED Provider: Ines Torres Home Meds and New Rx's Prescriptions: Continued diltiazem HCl 120 mg capsule,extended release 12 hr 120 mg PO BID metoprolol succinate 25 mg tablet extended release 24 hr 50 mg PO BID naproxen 500 mg tablet 500 mg PO PRN gabapentin 100 mg capsule 300 mg PO DAILY eletriptan 20 mg tablet See Rx Instructions PO .COMPLEX Rx Instructions: take 1 tab at onset of headache; if no relief may repeat 1 tab after at least 2 hrs; max = 4 tabs/24 hr PO hydroxyzine HCl 25 mg tablet 25 mg PO QHS PRN (Reason: anxiety) Qty: 30 0RF escitalopram oxalate 20 mg tablet 20 mg PO DAILY Qty: 90 4RF Rx Instructions: take 0.5 tab po qd x 7 days, then increase to 20 mg po qd if tolerated/needed albuterol sulfate [Ventolin HFA] 90 mcg/actuation HFA aerosol inhaler 2 puff inhalation Q6H PRN (Reason: shortness of breath or wheezing) Qty: 8.5 12RF montelukast 10 mg tablet 10 mg PO DAILY Qty: 90 4RF albuterol sulfate 1.25 mg/3 mL solution for nebulization 1.25 mg inhalation QID PRN (Reason: shortness of breath or wheezing) Qty: 90 6RF Trelegy Ellipta 200-62.5-25 mcg blister with device See Rx Instructions .ROUTE .COMPLEX Qty: 60 12RF Dose Instruction: INHALE BY MOUTH 1 PUFF DAILY Rx Instructions: INHALE BY MOUTH 1 PUFF DAILY norethindrone (contraceptive) 0.35 mg tablet 0.35 mg PO DAILY Qty: 84 1RF Discharge Instructions Instructions: Wrist Sprain ED Additional Instructions: No evidence of acute fractures or broken bones on X-ray, the old fracture is evident. Please wear the splint as needed for comfort. Rest ice compression elevation while sitting or laying down. Follow up with primary care provider in 3-5 days. Return to ED sooner if any worsening or concerns. Please take Tylenol or Ibuprofen with food every 4-6 hours as needed for pain and swelling. Referrals: Hieu Katz, MANAGER STATISTICS [Primary Care Provider] - 5 days Edin Stout MD [ [facility] STAFF PHYSICIAN] - 1 week Discharge Data Discharge Date/Time-TO BE ENTERED AT DEPARTURE: 10/31/23 12:27 HPI General Mode of arrival: ambulatory. Date/Time Provider Initiated Documentation: 10/31/23 10:20. Limitations to Documentation: no limitations. Information obtained by: patient, RN notes reviewed and old records reviewed. HPI Narrative: 33-year-old female presents to the ER with a chief left lateral wrist pain after bumping it approximately a week ago. She states that she has fractured her wrist in the past. She reports that yesterday the pain got worse. No new injuries. She has been taking Tylenol and ibuprofen with little to no relief. No obvious deformity distal pulses good, distal CMS intact. No other associated symptoms or concerns at this time. Related Data Home Medications ?Medication ?Instructions ?Recorded ?Confirmed albuterol sulfate 90 mcg/actuation 2 puff inhalation Q6H PRN 04/01/22 10/31/23 aerosol inhaler (Ventolin HFA) shortness of breath or wheezing #8.5 grams albuterol sulfate 1.25 mg/3 mL 1.25 mg (3 mL) inhalation QID PRN 01/26/23 10/31/23 solution for nebulization shortness of breath or wheezing #90 mL montelukast 10 mg tablet 10 mg PO DAILY #90 tabs 01/26/23 10/31/23 diltiazem HCl 120 mg 120 mg PO BID 03/19/23 10/31/23 capsule,extended release 12 hr naproxen 500 mg tablet 500 mg PO PRN 03/31/23 10/31/23 eletriptan 20 mg tablet See Rx Instructions PO .COMPLEX 05/19/23 10/31/23 metoprolol succinate 25 mg 50 mg PO BID 05/19/23 10/31/23 tablet,extended release 24 hr gabapentin 100 mg capsule 300 mg PO DAILY 05/23/23 10/31/23 fluticasone fur. 200 mcg-umeclid See Rx Instructions .Route 06/22/23 10/31/23 62.5 mcg-vilant 25 mcg .COMPLEX #60 blisters inhalat.powder (Trelegy Ellipta) norethindrone (contraceptive) 0.35 0.35 mg PO DAILY #84 tabs 09/09/23 10/31/23 mg tablet hydroxyzine HCl 25 mg tablet 25 mg PO QHS PRN anxiety #30 tabs 10/10/23 10/31/23 escitalopram oxalate 20 mg tablet 20 mg PO DAILY #90 tabs 10/24/23 10/31/23 Previous Rx's ?Medication ?Instructions ?Recorded albuterol sulfate 90 mcg/actuation 2 puff inhalation Q6H PRN 04/01/22 aerosol inhaler (Ventolin HFA) shortness of breath or wheezing #8.5 grams albuterol sulfate 1.25 mg/3 mL 1.25 mg (3 mL) inhalation QID PRN 01/26/23 solution for nebulization shortness of breath or wheezing #90 mL montelukast 10 mg tablet 10 mg PO DAILY #90 tabs 01/26/23 fluticasone fur. 200 mcg-umeclid See Rx Instructions .Route 06/22/23 62.5 mcg-vilant 25 mcg .COMPLEX #60 blisters inhalat.powder (Trelegy Ellipta) norethindrone (contraceptive) 0.35 0.35 mg PO DAILY #84 tabs 09/09/23 mg tablet hydroxyzine HCl 25 mg tablet 25 mg PO QHS PRN anxiety #30 tabs 10/10/23 escitalopram oxalate 20 mg tablet 20 mg PO DAILY #90 tabs 10/24/23 Allergies Allergy/AdvReac Type Severity Reaction Status Date / Time banana Allergy Unknown Skin Rash Verified 10/31/23 10:38 house dust Allergy Unknown Itching Unverified 10/31/23 10:38 peach Allergy Swelling/Ed Verified 10/31/23 10:38 [place] vancomycin Allergy Swelling/Ed Verified 10/31/23 10:38 [place] adhesive tape AdvReac Intermediate Itching Verified 10/31/23 10:38 budesonide (From Symbicort) AdvReac Skin Rash Verified 10/31/23 10:38 formoterol (From Symbicort) AdvReac Skin Rash Verified 10/31/23 10:38 General Stated Complaint: Orthopedic ROXANNE: 4 Review of Systems Musculoskeletal Musculoskeletal: Reports as per HPI and Reports arthralgias Exam Extrem General: normal to inspection and capillary refill normal Right upper extremity: normal to inspection Left upper extremity: normal to inspection and wrist Details: tenderness Location: of the distal ulna Course Vital Signs Vital signs: Vital Signs Temperature 36.5 C 10/31/23 10:35 Pulse 82 10/31/23 10:35 Respiratory Rate 18 10/31/23 10:35 Blood Pressure 121/90 10/31/23 10:35 Pulse Oximetry 98 10/31/23 10:35 Temperature 36.5 C 10/31/23 10:35 Temperature Source Tympanic 10/31/23 10:35 Pulse 82 10/31/23 10:35 Respiratory Rate 18 10/31/23 10:35 Blood Pressure 121/90 10/31/23 10:35 Pulse Oximetry 98 10/31/23 10:35 Pain Level 8 10/31/23 10:35 Medical Decision Making 33-year-old female presents to the ER with a chief left lateral wrist pain after bumping it approximately a week ago. She states that she has fractured her wrist in the past. She reports that yesterday the pain got worse. No new injuries. She has been taking Tylenol and ibuprofen with little to no relief. No obvious deformity distal pulses good, distal CMS intact. No other associated symptoms or concerns at this time. X-ray wrist ordered. Patient placed in a universal wrist splint instructed on RICE procedures and follow-up care. This text was generated using [employer] dictation system, please disregard any oddities of phrase or misspellings. Imaging Data Radiologic Study: Imaging: X-Ray Radiologist's impression: TECHNIQUE: Imaging protocol: Radiologic exam of the left wrist. Views: 3 or more views. COMPARISON: CR XR WRIST LT COMPLETE 10/23/2020 7:57 PM FINDINGS: Bones/joints: Previously indicated small osseous fragment adjacent to the ulnar styloid on prior study 10/23/2020 is not seen currently. Scapholunate interval appears upper limits of normal, similar to prior study. No new appearing displaced fracture nor dislocation seen. Soft tissues: No metallic foreign body seen. IMPRESSION: No new appearing displaced fracture seen. Please see body of report. Thank you for allowing us to participate in the care of your patient. Dictated and Authenticated by: Iglesia Chávez MD Quality:SDOH Health Related Social Needs: Health related social needs transpo insecurity Health related social needs details n/a PFSH All Active Problems (Updated 10/31/23 @ 12:08 by Ines Torres NP) Left wrist sprain (Acute) Elevated liver function tests (Acute) Lower back pain (Acute) Dyspnea (Acute) Hypertension (Chronic) Paresthesia (Acute) hands, feet, lips Neck pain (Acute) Sleep apnea (Acute) POTS (postural orthostatic tachycardia syndrome) (Acute) Tried metoprolol and it triggered asthma exacerbation Anemia (Chronic) Anxiety (Chronic) Insomnia (Acute) Migraine headache with aura (Acute) Asthma (Chronic) Medical History Hx of viral pneumonia 01/23/23: Per [facility] ED. -hb Contraception management IUD fell out several months pp, tried continuous cycle OCPs but had prolonged light bleeding. Currently cycling every 3mo. Pneumonia Kidney stones Snoring LGSIL on Pap smear of cervix Oct 2022: ASCUS/HPV+ -->[place] benign - no bx Sep 2021: LSIL/HPV+ -->[place] 11/11/21: CIN1 Feb 2021: LSIL/HPV+ () Jan 2020: LSIL/HPV neg July 2014: normal/neg May 2013: ASCUS/HPV- Seasonal allergies Bronchitis H/O pre-term labor (04/17/15) 37, 28 & 35wk deliveries Tachycardia Surgical History S/P colonoscopy (~01/24/19) Hx of wisdom tooth extraction History of section 28 weeks. Cord prolapse. 2 layer closure. LTCS Family History Mother Mental disorder depresssion anxietty bipolar Asthma Depression Father Hypertension Hyperlipidemia Sister Depression Brother No problems noted. Daughter Asthma Depression Daughter No problems noted. Daughter No problems noted. Maternal Grandfather Diabetes Stroke Paternal Grandfather Diabetes Maternal Grandmother , 70 No problems noted. 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 [employer] Pets and animals: Yes Pets and animals: dog(s) Sexually active: No Do you think of yourself as: straight/heterosexual Current gender identity: female What is your relationship status?: living with partner How often do you talk on the phone with friends or family?: once per week How often do you get together with friends or relatives?: once per week Do you belong to any clubs or organized social groups?: no Panel score (0-1 are the most socially isolated patients): 1 What type of physical activity do you participate in: none Frequency: does not exercise Erin/Protestant: Mandaen Special erin needs: No Seatbelt use: always Helmet use: Yes Helmet use: always Drive intox or ride w/intox 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 Date GA/Weeks # Preg Succ Route Wgt Sex Labor Lgth Anesthesia Location Prov Complic 06/23/09 37 No vaginal Female [facility] 09/03/15 28 No Female [facility] cord accident 09/05/21 35 No Yes vaginal Female 14hr [facility] Dr. Steen Delivery Date: 06/23/09 Last Updated by: Peggy Steen M.D. went into labor at 32- 33 weeks, stayed at [facility] until 35wks, came home then had water broken at [facility] due to dilation of 5 cm at 37 weeks. Delivery Date: 09/03/15 Last Updated by: Peggy Steen M.D. Pt went into labor, had a cord prolapse which led to emergent Delivery Date: 09/05/21 Last Updated by: Peggy Steen MD PTL&D, [facility]
--- NOTE | 2023-10-31 11:56 | DI.VRAD_ITS ---
PROCEDURE INFORMATION: Exam: XR Left Wrist Exam date and time: 10/31/2023 11:32 AM Age: 33 years old Clinical indication: Other: Wrist pain TECHNIQUE: Imaging protocol: Radiologic exam of the left wrist. Views: 3 or more views. COMPARISON: CR XR WRIST LT COMPLETE 10/23/2020 7:57 PM FINDINGS: Bones/joints: Previously indicated small osseous fragment adjacent to the ulnar styloid on prior study 10/23/2020 is not seen currently. Scapholunate interval appears upper limits of normal, similar to prior study. No new appearing displaced fracture nor dislocation seen. Soft tissues: No metallic foreign body seen. IMPRESSION: No new appearing displaced fracture seen. Please see body of report. Dictated and Authenticated by: Iglesia Chávez MD. Ordering:ADAM Chacon MD
[2023-10-31 12:27] VITALS: PULSE 69; RESP 16; O2SAT 99
== END 2023-10-31 12:27 | disposition home or self-care (01) ==
PROVIDERS: Emergency Provider Registered Nurse Emergency; PCP Nurse Practitioner Family
DX: S63.502A Unspecified sprain of left wrist, initial encounter (principal); W22.8XXA Striking against or struck by other objects, initial encounter
CPT/HCPCS: 81025; 99284; 73110; 99283

== ENCOUNTER 2023-11-12 13:38 | Outpatient (REF) | payer MEDICAID, SELFPAY ==
--- NOTE | 2023-11-12 13:36 | PAPFT_PTH ---
PATIENT: Miya Merritt I LOC: [facility] U#:[id number] AGE/SX: 33/F ROOM: RE11/12/[address]: Peggy Steen MD : 1990 BED: DIS: 11/12/2023 SPEC #: [id number] RECD: 11/12/23 17:39 STATUS: ELANA REQ #: [id number] MATTIE: 11/12/23 13:[address]: Peggy Steen DEPT: [facility] Cytology RECD BY: Maryam King ENTERED: 11/12/23 17:39 SP TYPE: PAPFT OTHR DR: Hieu Cardoza DNP Tissues: 1 - CX/ENDOCX FOR PAP SMEARS Procedures: PAP THIN PREP/[facility] Screening HPV DNA PROBE Comments: [id number] (HPV 16 & 18/45)
== END 2023-11-12 13:39 | disposition home or self-care (01) ==
LOC: LBN 13:38
PROVIDERS: PCP Nurse Practitioner Family; Visit Provider Obstetrics & Gynecology
DX: Z01.419 Encounter for gynecological examination (general) (routine) without abnormal findings (principal); R87.612 Low grade squamous intraepithelial lesion on cytologic smear of cervix (LGSIL); Z97.5 Presence of (intrauterine) contraceptive device
CPT/HCPCS: 88142; 87624

== ENCOUNTER 2023-12-10 01:12 | Outpatient (CLI) | payer MEDICAID, SELFPAY ==
--- NOTE | 2023-12-10 07:15 | DI.US_ITS ---
Exam(s) US PELVIS TRANSVAGINAL EXAM: US PELVIS TRANSVAGINAL CLINICAL HISTORY: IUD localization,z97.5. TECHNIQUE: Transabdominal and transvaginal pelvic ultrasound was performed using standard protocol. COMPARISON: US US OB CERVICAL LENGTH from 07/23/2021 FINDINGS: UTERUS: Position: Retroverted. Size: 6.4 long by 3.6 AP by 5.5 transverse cm Endometrium: 0.4 cm. Normal for patient's menstrual status. There is an IUD which is in good position . Myometrium: Unremarkable. Cervix: Unremarkable. OVARIES: Right: 3.1 x 1.5 x 1.7 cm Cyst or mass: No suspicious cystic or solid masses. Left: 2.5 x 1.6 x 1.7 cm Cyst or mass: No suspicious cystic or solid masses. There is a 1.5 cm hemorrhagic cyst on the left o vary. DOPPLER: Color: Symmetric and uniform flow to both ovaries. CUL-DE-SAC: Free fluid: There is a small amount of free fluid in the pelvis. Other: None. IMPRESSION: 1. Normal-appearing uterus with endometrial stripe within normal limits. 2. The IUD is in good position. 3. Unremarkable bilateral ovaries. DATA REPOSITORY:
== END 2023-12-10 01:32 ==
LOC: DI 01:12
PROVIDERS: PCP Nurse Practitioner Family; Visit Provider Obstetrics & Gynecology
DX: Z97.5 Presence of (intrauterine) contraceptive device (principal); Z30.431 Encounter for routine checking of intrauterine contraceptive device
CPT/HCPCS: 76830; 76856

== ENCOUNTER 2024-01-02 11:09 | Outpatient (CLI) | payer MEDICAID, SELFPAY ==
--- NOTE | 2024-01-02 11:00 | RT.EKG_ITS ---
APPROVED REPORT Exam: Resting ECG Reason for Exam: pre-op exam Patient Location: O HR:77 bpm ECG Measurements Heart Rate 77 AXIS PA 128 P 58 QRSd 85 QRS 65 QT 389 T 53 QTc 441 Conclusion Sinus rhythm...normal P axis, V-rate 50- 99 Normal Electrocardiogram
== END 2024-01-02 11:10 | disposition home or self-care (01) ==
LOC: DI.CM 11:10
PROVIDERS: PCP Nurse Practitioner Family; Visit Provider Nurse Practitioner Family
DX: Z01.818 Encounter for other preprocedural examination (principal)
CPT/HCPCS: 93010

== ENCOUNTER 2024-03-18 15:25 | Outpatient (REF) | payer MEDICAID, SELFPAY ==
--- OUTSIDE RECORDS SUMMARY | 2024-03-18 15:47 | XMS_ITS | Continuity of Care Document ---
Author Organization [facility] Address [address] [place] [id number] Care Team Providers Care Marketing Designer Name Role Phone JAXSON KEVEN LEMON Primary Care Physician Encounter [facility] [id number] Date(s): 01/04/24 - 01/04/[address] [address] Encounter Diagnosis Encounter for other preprocedural examination(Final) - Discharge Disposition: Home or Self Care Attending Physician: Austen Funez MD Admitting Physician: Austen Funez MD Referring Physician: Austen Funez MD Allergies, Adverse Reactions, Alerts Substance Criticality [...] Tape Unable to assess criticality Unknown Active Banana Low criticality Mild Acti ve [place] Low criticality Mild Acti ve Dust Unable to assess criticality Unknown Unknown Active Assessment and Plan Future Appointments Immunizations Given and Recorded Vaccine Date Status Refusal Reason influenza virus vaccine, inactivated 12/16/23 Give n Medications albuterol 1.25 mg/3 mL (0.042%) inhalation solution 90 mL, 0 Refill(s), INHALE ONE VIAL VIA NEBULIZER FOUR TIMES A DAY NEEDED FOR SHORTNESS OF BREATH OR WHEEZING, 0 Refill(s) Start Date: 02/25/23 Status: Ordered cyclobenzaprine 5 mg oral tablet 5 mg = 1 tab, Oral, TID, PRN as needed for muscle spasm, May increase to 2 tab TID PRN. Use cautiondue to risk of sedation., # 30 tab, 1 Refill(s), Pharmacy: [facility], 162.56, cm, 12/02/23 8:43:00 EDT, Height, 76.1, kg, 12/02/23 8:48:00 EDT, Weight Dosing Start Date: 12/16/23 Status: Ordered cyclobenzaprine 5 mg oral tablet 5 mg = 1 tab, Oral, TID, PRN as needed for muscle spasm, Use caution due to risk of sedation., # 30tab, 0 Refill(s), Pharmacy: [facility], 165.1, cm, 10/21/23 15:22:00 EDT, Height, 73.48, kg, 10/30/23 9:08:00 EDT, Weight Dosing Start Date: 11/11/23 Status: Ordered erenumab-aooe 70 mg/mL subcutaneous solution 70 mg =, Subcutaneous, every month, # 1 mL, 6 Refill(s), Pharmacy: [facility], 163.83, cm, 11/19/23 7:58:00 EDT, Height, 74.66, kg, 11/19/23 8:10:00 EDT, Weight Dosing Start Date: 11/25/23 Status: Ordered gabapentin 100 mg oral capsule 100 mg = 1 cap, Oral, TID, # 180 cap, 6 Refill(s), Pharmacy: [facility] Start Date: 12/10/22 Status: Ordered HYDROcodone-acetaminophen 5 mg-325 mg oral tablet 1 tab, Oral, TID, PRN as needed for pain, May increase to 2 tab TID PRN but use caution due to increased risk of sedation., # 60 tab, 0 Refill(s), Pharmacy: [facility], 162.56, cm, 12/02/23 8:43:00 EDT, Height, 76.1, kg, 12/02/23 8:48:00 EDT, Weight Dosing Start Date: 12/16/23 Status: Ordered hydrOXYzine hydrochloride 25 mg oral tablet 25 mg = 1 tab, Oral, Daily, # 30 tab, 0 Refill(s) Start Date: 10/21/23 Status: Ordered ketorolac 10 mg oral tablet 10 mg = 1 tab, Oral, QID, PRN as needed for pain, not to exceed 40 mg/day and 5 days duration for all dose forms. No not take other NSAIDS while taking this medication., # 16 tab, 0 Refill(s), Pharmacy: [facility], 163.83, cm, 11/19/23 7:58:00 EDT, Height, 75.8, kg, 11/27/23 14:18:00 EDT, Weight Dosing Start Date: 11/27/23 Status: Ordered Lexapro 20 mg oral tablet 20 mg = 1 tab, Oral, Daily, # 30 tab, 0 Refill(s) Start Date: 10/21/23 Status: Ordered Medrol 4 mg oral tablet 1 packets, Oral, Once, as directed on package labeling, # 21 tab, 0 Refill(s), Pharmacy: [facility], 162.56, cm, 12/02/23 8:43:00 EDT, Height, 76.1, kg, 12/02/23 8:48:00 EDT, Weight Dosing Start Date: 12/16/23 Status: Ordered Medrol 4 mg oral tablet 1 packets, Oral, Daily, as directed on package labeling, # 21 tab, 0 Refill(s), Pharmacy: [facility], 165.1, cm, 10/21/23 15:22:00 EDT, Height, 73.48, kg, 10/30/23 9:08:00 EDT, Weight Dosing Start Date: 11/11/23 Stop Date: 11/17/23 Status: Ordered metoprolol succinate 50 mg oral tablet, extended release 50 mg = 1 tab, Oral, BID, # 180 tab, 1 Refill(s), Pharmacy: [facility], 165.1, cm, 05/07/23 15:22:00 EDT, Height, 77.29, kg, 05/07/23 15:30:00 EDT, Weight Dosing Start Date: 05/07/23 Stop Date: 11/03/23 Status: Ordered Mirena 52 mg intrauteral device 0 Refill(s) Start Date: 11/18/23 Status: Ordered montelukast 10 mg oral tablet 10 mg = 1 tab, Oral, Daily, 0 Refill(s) Start Date: 08/27/22 Status: Ordered Protonix 40 mg oral delayed release tablet 40 mg = 1 tab, Oral, Daily, # 30 tab, 4 Refill(s), Pharmacy: [email or web address], 162.56, cm, 248:43:00 EDT, Height, 76.1, kg, 12/02/23 8:48:00 EDT, Weight Dosing Start Date: 12/02/23 Status: Ordered Relpax 20 mg oral tablet 20 mg = 1 tab, Oral, Daily, PRN as needed for migraine headache, may repeat dose once in 2 hours, #12 tab, 1 Refill(s), Pharmacy: [email or web address], 165.1, cm, 08/06/23 7:59:00 EDT, Height, 77.2, kg,08/06/23 8:07:00 EDT, Weight Dosing Start Date: 08/06/23 Status: Ordered Tezspire Pre-filled Pen 210 mg/1.91 mL subcutaneous solution 210 mg =, Subcutaneous, every 4 wk, # 1 EA, 5 Refill(s), Pharmacy: [facility], 162.56, cm, 12/02/23 8:43:00 EDT, Height, 76.1, kg, 12/02/23 8:48:00 EDT, Weight Dosing Start Date: 12/07/23 Status: Ordered Trelegy Ellipta 200 mcg-62.5 mcg-25 mcg/inh inhalation powder 0 Refill(s) Start Date: 08/27/22 Status: Ordered Ventolin HFA 90 mcg/inh inhalation aerosol 2 puffs, Inhale, every 6 hr, 18 g, INHALE 2 PUFFS BY MOUTH EVERY 6 HOURS NEEDED FOR SHORTNESS OFBREATH OR WHEEZING, # 18 g, 3 Refill(s), Pharmacy: [email or web address], 165.1, cm, 10/21/23 15:22:00 EDT, Height, 73.48, kg, 10/30/23 9:08:00 EDT, Weight Dosing Start Date: 11/10/23 Status: Ordered Problem List Condition Confirmation Course Effective Dates Status H ealth Status Informant Anemia Confirmed Active Anxiety Confirmed Active Asthma Confirmed Active Bilateral sacroiliitis Confirmed Active Cervical spondylosis Confirmed Active Menstrual abnormality Confirmed Active Pedraza sign present Confirmed Active Hyperreflexia Confirmed Active Insomnia Confirmed Active Migraine headache with aura Confirmed Active Migraine with aura, not intractable, without status migrainosus Confirmed Active Lower extremity weakness Confirmed Active Upper extremity weakness Confirmed Active Neck pain Confirmed Active Paresthesias Confirmed Active POTS (postural orthostatic tachycardia syndrome) Confirmed Active Sleep apnea Confirmed Active Cervical spinal stenosis Confirmed Active Neuroforaminal stenosis of cervical spine Confirmed Active Procedures Procedure Date Related Diagnosis Body Site Status Colonoscopy 2019 Completed section 09/02/15 Complete d Extraction of wisdom tooth Completed Results Laboratory List Name Date .Morphology (LTTL) 01/04/24 Basic Metabolic Panel 01/04/24 CBC w/ Diff 01/04/24 Automated Diff 01/04/24 Most recent to oldest [Reference Range]: 1 WBC [4.8-10.8 K/mcL] 5.7 K/mcL (01/04/24 11:55 AM) RBC [4.20-5.40 Million/mcL] 4.91 Million /mcL (01/04/24 11:55 AM) Neutro Auto [42.2-75.2 %] 61.8 % (01/04/24 11:55 AM) Lymph Auto [20.5-51.1 %] 29.3 % (01/04/24 11:55 AM) Lawrence Auto [1.7-9.3 %] 6.4 % (01/04/24 11:55 AM) Basophil Auto [0.0-0.8 %] 0.4 % (01/04/24 11:55 AM) BUN [7-25 mg/dL] 7 mg/dL (01/04/24 11:55 AM) Glucose Level [70-109 mg/dL] 95 mg/dL (01/04/24 11:55 AM) Potassium Level [3.5-5.1 mmol/L] 3.7 mmo l/L (01/04/24 11:55 AM) Baso Absolute [0.0-0.2 K/mcL] 0.0 K/mcL (01/04/24 11:55 AM) MCV [81.0-99.0 fL] 77.2 fL *LOW* (01/04/24 1155 AM) RBC Morph [Normal] Abnormal *ABN* (01/04/24 AM) MCHC [32.0-37.0 g/dL] 33.0 g/dL (01/04/24:55 AM) Osmolality [275-295 mOsm/kg] 274 mOsm/kg *LOW* (01/04/24 AM) Sodium Level [136-145 mmol/L] 138 mmol/L (01/04/2455 AM) Lymph Absolute [1.2-3.4 K/mcL] 1.7 K/mcL (01/04/24 AM) Hct [37.0-47.0 %] 37.9 % (01/04/24 AM) Microcyte 1+ *ABN* (01/04/24 AM) Hypochromia 1+ *ABN* (01/04/24 AM) Calcium Level [8.6-10.3 mg/dL] 8.9 mg/dL (01/04/24:55 AM) Lawrence Absolute [0.1-0.6 K/mcL] 0.4 K/mcL (01/04/24 AM) MCH [27.0-31.0 pg] 25.5 pg *LOW* (01/04/2455 AM) Neutro Absolute [1.4-6.5 K/mcL] 3.5 K/mc L (01/04/24 AM) Hgb [12.0-16.0 g/dL] 12.5 g/dL (01/04/2455 AM) MPV [7.4-10.4 fL] 8.4 fL (01/04/24:55 AM) Platelets [130-400 K/mcL] 235 K/mcL (01/04/24: AM) CO2 [21-31 mmol/L] 28 mmol/L (01/04/24:55 AM) Eos Absolute [0.0-0.2 K/mcL] 0.1 K/mcL (01/04/24:55 AM) Chloride Level [98-107 mmol/L] 104 mmol/ L (01/04/24 11:55 AM) RDW-CV [11.5-14.5 %] 17.6 % *HI* (01/04/24 11:55 AM) BUN/Creat Ratio [8.0-20.0] 7.8 *LOW* (01/04/24 11:55 AM) Slide Review Morph Only (01/04/24 11:55 AM) Anisocyte 1+ (01/04/24 11:55 AM) Creatinine Level [0.60-1.20 mg/dL] 0.90 mg/dL (01/04/24 11:55 AM) Plt Estimation Normal (01/04/24 11:55 AM) Anion Gap [3.0-12.0] 6.0 (01/04/24 11:55 AM) Eos, Auto [0.00-3.00 %] 2.10 % (01/04/24 11:55 AM) eGFR CKD-EPI [>=60 mL/min/1.73 m2] 87 mL /min/1.73 m2 (01/04/24 11:55 AM) Social History Social History Type Response Tobacco Never tobacco user, Tobacco use status unknown Tobacco Use:. Sex Sex Representation Female (finding) Patient Care team information Care Team Personnel Name: KEVEN PURI DNP Position: No Access Member Role: Primary Care Physician Address: [address] Care Team Related Persons Name: JOAQUIM MCCOY Name: JENIFFER GALLEGOS Name: MERLE JARRETT Insurance Providers Guarantor name: KIANA ISABEL Health Plan Information #: 1 Payer: [place] Member Number: [id number] Policy Number: NA Health Plan Information #: 2 Payer: [place] Member Number: [id number] Policy Number: NA
--- OUTSIDE RECORDS SUMMARY | 2024-03-18 15:47 | XMS_ITS | Continuity of Care Document ---
Author Organization [facility] Address [address] [place] [id number] Support Name Relationship Address Phone MERLE JARRETT Personal Relationship Unknown Un available ELNANDO LEALIAN Personal Relationship Unknown Richelle vailable MCCOY JOAQUIM WHALEN Personal Relationship Unknown Unavailable [facility]counter [facility] [id number] Date(s): 11/02/23 - 11/02/[address] [id number] Discharge Disposition: Home or Self Care Attending Physician: Patience lLamas MD Admitting Physician: Patience Llamas MD Referring Physician: Patience Llamas MD Allergies, Adverse Reactions, [...] Active Banana Low criticality Mild Acti ve [place] Low criticality Mild Acti ve Dust Unable [...] TID, # 180 cap, 6 Refill(s), Pharmacy: [facility] Start Date: 12/10/22 Status: Ordered hydrOXYzine [...] BID, # 180 tab, 1 Refill(s), Pharmacy: [facility], 165.1, cm, 05/07/23 15:22:00 EDT, Height, [...] headache, # 90 tab, 1 Refill(s), Pharmacy: [facility], 165.1, cm, 03/05/23 7:56:00 EST, Height, 76.11, kg, 03/05/23 8:01:00 EST, Weight Dosing Start Date: 03/05/23 Status: Ordered Relpax 20 mg oral tablet 20 mg = 1 tab, Oral, Daily, PRN as needed for migraine headache, may repeat dose once in 2 hours, #12 tab, 1 Refill(s), Pharmacy: [facility], 165.1, cm, 08/06/23 7:59:00 EDT, [...] Tobacco Use:. Sex Sex Representation Female (finding) Pulmonary function study * Shantell Butts: PERFORM Event Display: Pulmonary Function Studies Authored Date: * Shantell Butts: PERFORM Event Display: Pulmonary Function Studies Authored Date: PFT Interpretation ??? [facility] [place] Electronically Signed on 11/03/2023 06:58 EDT Shantell Butts * Shantell Butts: PERFORM Event Display: Pulmonary Function Studies Authored Date: [id number] Salomón Villeda at [facility] [place] 11/03/2023 at 0658 with confirmation #: [id number]. Message sent to??Dr. Dania Llamas??on??11/03/2023??at??0700??via [employer]. Electronically Signed on 11/03/2023 07:01 EDT Shantell Butts Patient Care team information Care Team Related Persons Name: JOAQUIM MCCOY Name: JENIFFER GALLEGOS Name: MERLE JARRETT Insurance Providers Guarantor name: KIANA JUNIORFIELD Health Plan Information #: 1 Payer: [place] Member Number: [id number] Policy Number: NA Health Plan Information #: 2 Payer: [place] Member Number: [id number] Policy Number: NA
--- OUTSIDE RECORDS SUMMARY | 2024-03-18 15:47 | XMS_ITS | Continuity of Care Document ---
Author Organization [facility] Address [address] [place] [address] Care Team Providers Care Baker Chef Name Role Phone JAXSON KEVEN LEMON Primary Care Physician Encounter [facility] [id number] Date(s): 12/24/23 - 12/24/23 [facility] [address] [place], [place] [address] Discharge Disposition: Home Allergies, Adverse Reactions, Alerts Substance Criticality Severity Reaction Reaction Severity Status vancomycin Low criticality Mild Act jamshid formoterol Unable to assess criticality Unknown Unknown Active Symbicort Low criticality Mild Acti ve Dogs Unable to assess criticality Unknown Unknown Active Tape Unable to assess criticality Unknown Active Dust Unable to assess criticality Unknown Unknown Active Coos Low criticality Mild Acti ve budesonide-formoterol Unable to assess criticality Unknown Unknown Active formoterol-mometasone Unable to assess criticality Unknown Unknown Active Cats Unable to assess criticality Unknown Unknown Active Banana Low criticality Mild Acti ve Assessment and Plan Future Appointments Immunizations Given [...] sedation., # 30 tab, 1 Refill(s), Pharmacy: [facility], 162.56, cm, 12/02/23 8:43:00 EDT, Height, 76.1, kg, 12/02/23 8:48:00 EDT, Weight Dosing Start Date: 12/16/23 Status: Ordered cyclobenzaprine 5 mg oral tablet 5 mg = 1 tab, Oral, TID, PRN as needed for muscle spasm, Use caution due to risk of sedation., # 30tab, 0 Refill(s), Pharmacy: [facility], 165.1, cm, 10/21/23 15:22:00 EDT, Height, 73.48, kg, 10/30/23 9:08:00 EDT, Weight Dosing Start Date: 11/11/23 Status: Ordered erenumab-aooe 70 mg/mL subcutaneous solution 70 mg =, Subcutaneous, every month, # 1 mL, 6 Refill(s), Pharmacy: [facility], 163.83, cm, 11/19/23 7:58:00 EDT, Height, 74.66, kg, 11/19/23 8:10:00 EDT, Weight Dosing Start Date: 11/25/23 Status: Ordered gabapentin 100 mg oral capsule 100 mg = 1 cap, Oral, TID, # 180 cap, 6 Refill(s), Pharmacy: [facility] Start Date: 12/10/22 Status: Ordered HYDROcodone-acetaminophen 5 mg-325 mg oral tablet 1 tab, Oral, TID, PRN as needed for pain, May increase to 2 tab TID PRN but use caution due to increased risk of sedation., # 60 tab, 0 Refill(s), Pharmacy: [facility], 162.56, cm, 12/02/23 8:43:00 EDT, Height, [...] medication., # 16 tab, 0 Refill(s), Pharmacy: [facility], 163.83, cm, 11/19/23 7:58:00 EDT, Height, 75.8, kg, 11/27/23 14:18:00 EDT, Weight Dosing Start Date: 11/27/23 Status: Ordered Lexapro 20 mg oral tablet 20 mg = 1 tab, Oral, Daily, # 30 tab, 0 Refill(s) Start Date: 10/21/23 Status: Ordered Medrol 4 mg oral tablet 1 packets, Oral, Once, as directed on package labeling, # 21 tab, 0 Refill(s), Pharmacy: [facility], 162.56, cm, 12/02/23 8:43:00 EDT, Height, 76.1, kg, 12/02/23 8:48:00 EDT, Weight Dosing Start Date: 12/16/23 Status: Ordered Medrol 4 mg oral tablet 1 packets, Oral, Daily, as directed on package labeling, # 21 tab, 0 Refill(s), Pharmacy: [facility], 165.1, cm, 10/21/23 15:22:00 EDT, Height, 73.48, kg, 10/30/23 9:08:00 EDT, Weight Dosing Start Date: 11/11/23 Stop Date: 11/17/23 Status: Ordered metoprolol succinate 50 mg oral tablet, extended release 50 mg = 1 tab, Oral, BID, # 180 tab, 1 Refill(s), Pharmacy: [facility], 165.1, cm, 05/07/23 15:22:00 EDT, Height, [...] Daily, # 30 tab, 4 Refill(s), Pharmacy: [facility], 162.56, cm, 248:43:00 EDT, Height, 76.1, kg, 12/02/23 8:48:00 EDT, Weight Dosing Start Date: 12/02/23 Status: Ordered Relpax 20 mg oral tablet 20 mg = 1 tab, Oral, Daily, PRN as needed for migraine headache, may repeat dose once in 2 hours, #12 tab, 1 Refill(s), Pharmacy: [facility], 165.1, cm, 08/06/23 7:59:00 EDT, Height, 77.2, kg,08/06/23 8:07:00 EDT, Weight Dosing Start Date: 08/06/23 Status: Ordered Tezspire Pre-filled Pen 210 mg/1.91 mL subcutaneous solution 210 mg =, Subcutaneous, every 4 wk, # 1 EA, 5 Refill(s), Pharmacy: [facility], 162.56, cm, 12/02/23 8:43:00 EDT, [...] WHEEZING, # 18 g, 3 Refill(s), Pharmacy: [facility], 165.1, cm, 10/21/23 15:22:00 EDT, Height, 73.48, kg, 10/30/23 9:08:00 EDT, Weight Dosing Start Date: 11/10/23 Status: Ordered Problem List Condition Confirmation Course Effective Dates Status H ealth Status Informant Anemia Confirmed Active Anxiety Confirmed Active Asthma Confirmed Active Bilateral sacroiliitis Confirmed Active Cervical spondylosis Confirmed Active Menstrual abnormality Confirmed Active Pedrzaa sign present Confirmed Active Hyperreflexia Confirmed Active [...] Access Member Role: Primary Care Physician Address: [address] Care Team Related Persons Name: JOAQUIM MCCOY Name: JENIFFER GALLEGOS Name: MERLE JARRETT Insurance Providers Guarantor name: KIANA Fam [facility] Plan Information #: 1 Payer: [place] Member Number: NA Policy Number: NA
--- OUTSIDE RECORDS SUMMARY | 2024-03-18 15:47 | XMS_ITS | Continuity of Care Document ---
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 Name Role Phone NITINKEVEN BLOUNT DNP Primary Care Physician Encounter [facility] NBR [id number] Date(s): 11/27/23 - 11/27/23 [facility] [address] [place], [place] [address] Encounter Diagnosis Cervical spinal stenosis(Discharge Diagnosis) - 11/27/23 Upper extremity weakness(Discharge Diagnosis) - 11/27/23 Lower extremity weakness(Discharge Diagnosis) - 11/27/23 Hyperreflexia(Discharge Diagnosis) - 11/27/23 Pedraza sign present(Discharge Diagnosis) - 11/27/23 Discharge Disposition: Home or Self Care Allergies, Adverse Reactions, Alerts Substance Criticality Severity [...] Active Banana Low criticality Mild Acti ve Fleming Low criticality Mild Acti ve Dust Unable to assess criticality Unknown Unknown Active Dogs Unable to assess criticality Unknown Unknown Active Assessment and Plan Extracted from: Title:Office Visit Note Author:ALPHONSO Mcdowell Date:11/27/23 1.??Cervical spinal stenosis ??M48.02 Ordered: ketorolac 10 mg oral tablet, 10 mg = 1 tab, Oral, QID, PRN as needed for pain, not to exceed 40 mg/day and 5 days duration for all dose forms. No not take other NSAIDS while taking this medication., # 16 tab, 0 Refill(s), Pharmacy: [facility], 163.83, cm, 11/19/23 7:58:00 E... oxyCODONE-acetaminophen 5 mg-325 mg oral tablet, 1 tab, Oral, BID, PRN as needed for pain, # 30 tab, 0 Refill(s), Pharmacy: [facility], 163.83, cm, 11/19/23 7:58:00 EDT, Height, 75.8, kg, 11/27/23 14:18:00 EDT, Weight Dosing ?? 2.??Upper extremity weakness??R29.898,?? Lower extremity weakness??R29.898 Ordered: ketorolac 10 mg oral tablet, 10 mg = 1 tab, Oral, QID, PRN as needed for pain, not to exceed 40 mg/day and 5 days duration for all dose forms. No not take other NSAIDS while taking this medication., # 16 tab, 0 Refill(s), Pharmacy: [facility], 163.83, cm, 11/19/23 7:58:00 E... oxyCODONE-acetaminophen 5 mg-325 mg oral tablet, 1 tab, Oral, BID, PRN as needed for pain, # 30 tab, 0 Refill(s), Pharmacy: [facility], 163.83, cm, 11/19/23 7:58:00 EDT, Height, 75.8, kg, 11/27/23 14:18:00 EDT, Weight Dosing ?? 4.??Hyperreflexia??R29.2,?? Pedraza sign present??R29.2 Ordered: ketorolac 10 mg oral tablet, 10 mg = 1 tab, Oral, QID, PRN as needed for pain, not to exceed 40 mg/day and 5 days duration for all dose forms. No not take other NSAIDS while taking this medication., # 16 tab, 0 Refill(s), Pharmacy: [facility], 163.83, cm, 11/19/23 7:58:00 E... oxyCODONE-acetaminophen 5 mg-325 mg oral tablet, 1 tab, Oral, BID, PRN as needed for pain, # 30 tab, 0 Refill(s), Pharmacy: [facility], 163.83, cm, 11/19/23 7:58:00 EDT, Height, 75.8, kg, 11/27/23 14:18:00 EDT, Weight Dosing ?? The patient has struggled with chronic neck pain and intermittent paresthesias affecting her hands for multiple years however 1 month ago this seemed to progress significantly.?? She has increased pain??in her neck and upper back between the shoulder blades, increased paresthesias of the bilateral hands??and now the bottom of her feet??as well as progressive weakness of the left??upper and lower extremity.?? Her reflexes are also now more hyperreflexic??and she also has a new Della's??reflex??on the left side.?? She has noticed some changes to her balance though not significantly.?? The patient's cervical spinal stenosis has progressed??since her last imaging.?? 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 However, given??the findings on her MRI and progression of her symptoms I think she is a surgical candidate??for multilevel ACDF.?? We did discuss the nature of the surgery including the risks of infection, bleeding,??dysphonia, dysphagia, nerve injury and paralysis. ??The nature of postoperative recovery was discussed.?? Given the??progression of her symptoms this should likely be done more urgently and we did discuss that??a referral to Dr. Santiago may be indicated as that may be the quickest option for her to have surgery for this issue. ??I will review her imaging with Dr. Funez early next week after we have the x-rays completed to determine next steps.?? In the meantime,??I have prescribed the patient a short prescription of Percocet that she is going to take at nighttime to help her sleep as she has not been sleeping due to her pain.?? She would not take this during the day as she has to work and function with her young child.?? I am also going to prescribe her a short prescription of ketorolac that she can take up to 4 times a day as needed for the pain. ??She should take this with food and avoid other NSAIDs while taking this medication.?? She agrees with this plan. Plan: AP and lateral and flexion-extension cervical spine x-rays. The patient's imaging will be reviewed Dr. Funez next week for likely??surgical correction of her cervical spinal stenosis. ? Future Appointments Medications albuterol 1.25 mg/3 mL [...] of sedation., # 30tab, 0 Refill(s), Pharmacy: [facility], 165.1, cm, 10/21/23 15:22:00 EDT, Height, 73.48, kg, 10/30/23 9:08:00 EDT, Weight Dosing Start Date: 11/11/23 Status: Ordered erenumab-aooe 70 mg/mL subcutaneous solution 70 mg =, Subcutaneous, every month, # 1 mL, 6 Refill(s), Pharmacy: [facility], 163.83, cm, 11/19/23 7:58:00 EDT, Height, 74.66, kg, 11/19/23 8:10:00 EDT, Weight Dosing Start Date: 11/25/23 Status: Ordered gabapentin 100 mg oral capsule 100 mg = 1 cap, Oral, TID, # 180 cap, 6 Refill(s), Pharmacy: [facility] Start Date: 12/10/22 Status: Ordered hydrOXYzine [...] # 16 tab, 0 Refill(s), Pharmacy: [facility], 163.83, cm, 11/19/23 7:58:00 EDT, Height, 75.8, kg, 11/27/23 14:18:00 EDT, Weight Dosing Start Date: 11/27/23 Status: Ordered Lexapro 20 mg oral tablet 20 mg = 1 tab, Oral, Daily, # 30 tab, 0 Refill(s) Start Date: 10/21/23 Status: Ordered Medrol 4 mg oral tablet 1 packets, Oral, Daily, as directed on package labeling, # 21 tab, 0 Refill(s), Pharmacy: [facility], 165.1, cm, 10/21/23 15:22:00 EDT, Height, 73.48, kg, 10/30/23 9:08:00 EDT, Weight Dosing Start Date: 11/11/23 Stop Date: 11/17/23 Status: Ordered metoprolol succinate 50 mg oral tablet, extended release 50 mg = 1 tab, Oral, BID, # 180 tab, 1 Refill(s), Pharmacy: [facility], 165.1, cm, 05/07/23 15:22:00 EDT, Height, 77.29, kg, 05/07/23 15:30:00 EDT, Weight Dosing Start Date: 05/07/23 Stop Date: 11/03/23 Status: Ordered Mirena 52 mg intrauteral device 0 Refill(s) Start Date: 11/18/23 Status: Ordered montelukast 10 mg oral tablet 10 mg = 1 tab, Oral, Daily, 0 Refill(s) Start Date: 08/27/22 Status: Ordered oxyCODONE-acetaminophen 5 mg-325 mg oral tablet 1 tab, Oral, BID, PRN as needed for pain, # 30 tab, 0 Refill(s), Pharmacy: [facility], 163.83, cm, 11/19/23 7:58:00 EDT, Height, 75.8, kg, 11/27/23 14:18:00 EDT, Weight Dosing Start Date: 11/27/23 Status: Ordered Relpax 20 mg oral tablet 20 mg = 1 tab, Oral, Daily, PRN as needed for migraine headache, may repeat dose once in 2 hours, #12 tab, 1 Refill(s), Pharmacy: [facility], 165.1, cm, 08/06/23 7:59:00 EDT, Height, [...] WHEEZING, # 18 g, 3 Refill(s), Pharmacy: [facility], 165.1, cm, 10/21/23 15:22:00 EDT, Height, [...] Complete d Extraction of wisdom tooth Completed Vital Signs Most recent to oldest [Reference Range]: 1 Temperature Temporal Artery [36-38 Deg C ] 36.0 Deg C (11/27/23 2:15 PM) Peripheral Pulse Rate [60-100 bpm] 110 b pm *HI* (11/27/23 2:15 PM) Blood Pressure [90-120/60-80 mmHg] 130/8 0mmHg *HI* (11/27/23 2:15 PM) Mean Arterial Pressure, Cuff [65-140 mmH g] 97 mmHg (11/27/23 2:15 PM) Weight 75.8 kg (11/27/23 2:15 PM) Weight Measured (lbs) 167.11 lb (11/27/23 2:15 PM) Weight Dosing 75.800 kg (11/27/23 2:15 PM) Social History Social History Type Response Tobacco Never tobacco user, Tobacco use status unknown Tobacco Use:. Sex Sex Representation Female (finding) Physician Outpatient Note * Atiya Reno APRN-PASCALE: PERFORM Event Display: Office Clinic Note Physician Authored Date: [id number] KIANA ISABEL I :1990 Age:33 years Sex:Female Visit Date:11/27/2023 Primary Care Physician: KEVEN PURI DNP Chief Complaint MRI follow up Additional Information No medication since last in the office History of Present Illness The patient presents for follow-up visit to review her MRI of the cervical and thoracic spines thatwere completed yesterday.?? The patient has been seen in our clinic previously for her neck and lowback pain.?? Her neck had been??doing all right up until about a month ago and the pain significantly increased.?? She denies any injury.?? She has pain in the posterior neck that radiates down in between her shoulder blades.?? She also has worsening numbness and tingling of both of her hands that is more pronounced in the left hand. ??She is right-hand dominant.?? She also has increased numbnessand tingling in the bottom of her feet bilaterally.?? She has struggled with some left hand weakness??in the past but she feels that this is also progressed and she also some weakness of her right hand.?? She is finding herself dropping things and having trouble holding onto things particularly with the left hand.?? She states that over the past month her balance does seem to be somewhat off though not significantly and she is not having any falls.?? She feels that her legs are somewhat weak aswell.?? She was prescribed a short course of oral steroids which did seem to lessen the pain some while she was taking the medication but unfortunately this was only temporary and the pain then??increased??once that was completed. ??She was prescribed a muscle relaxer which unfortunately was not??beneficial.?? She takes gabapentin for her headaches though this does not seem to be making a difference with her??pain.?? She has tried??Tylenol and ibuprofen with no significant relief. Review of Systems Relevant ROS discussed in HPI Physical Exam Vitals & Measurements T:??36.0?C ??(Temporal Artery)?? HR:??110??(Peripheral)?? BP:??130/80?? SpO2:??99%?? WT:??75.8??kg?? GENERAL:?General Appearance:?pleasant, age appropriate in no apparent distress.?? MUSCULOSKELETAL:?Musculoskeletal:??Cervical spine ROM??limited throughout.Mild tenderness of the cervical spine. NEUROLOGICAL:?Neurological:?Negative Lhermitte's.?Motor:?Strength 5/5??with bilateral deltoid??abduction, biceps flexion, hip flexion, knee extension and plantarflexion.?? Strength 4/5 left tricep flexion, 5/5 on the right.?? Strength 3/5 left hand abduction, 4/5??on the right.?? Strength 4/5 left??knee flexion, 5/5 on the right. ??Strength 4/5 left ankle dorsiflexion, 5/5 on the right. ?Reflexes:?? 3+ and symmetric in biceps, triceps, brachioradialis and ankles bilaterally.?? 3+ right knee jerk, 4+ left knee jerk.?Positive Della's on the left. ? Tone: Normal ? Gait: Normal.?? She is able to stand on each foot independently without much difficulty though she is somewhat wobbly and has to try harder when standing on her left foot. Assessment/Plan 1.??Cervical spinal stenosis??M48.02 Ordered: ketorolac 10 mg oral tablet, 10 mg = 1 tab, Oral, QID, PRN as needed for pain, not to exceed 40 mg/day and 5 days duration for all dose forms. No not take other NSAIDS while taking this medication., # 16 tab, 0 Refill(s), Pharmacy: [facility], 163.83, cm, 11/19/23 7:58:00 E... oxyCODONE-acetaminophen 5 mg-325 mg oral tablet, 1 tab, Oral, BID, PRN as needed for pain, # 30 tab, 0 Refill(s), Pharmacy: [facility], 163.83, cm, 11/19/23 7:58:00 EDT, Height, 75.8, kg, 11/27/23 14:18:00 EDT, Weight Dosing ?? 2.??Upper extremity weakness??R29.898,?? Lower extremity weakness??R29.898 Ordered: ketorolac 10 mg oral tablet, 10 mg = 1 tab, Oral, QID, PRN as needed for pain, not to exceed 40 mg/day and 5 days duration for all dose forms. No not take other NSAIDS while taking this medication., # 16 tab, 0 Refill(s), Pharmacy: [facility], 163.83, cm, 11/19/23 7:58:00 E... oxyCODONE-acetaminophen 5 mg-325 mg oral tablet, 1 tab, Oral, BID, PRN as needed for pain, # 30 tab, 0 Refill(s), Pharmacy: [facility], 163.83, cm, 11/19/23 7:58:00 EDT, Height, 75.8, kg, 11/27/23 14:18:00 EDT, Weight Dosing ?? 4.??Hyperreflexia??R29.2,?? Pedraza sign present??R29.2 Ordered: ketorolac 10 mg oral tablet, 10 mg = 1 tab, Oral, QID, PRN as needed for pain, not to exceed 40 mg/day and 5 days duration for all dose forms. No not take other NSAIDS while taking this medication., # 16 tab, 0 Refill(s), Pharmacy: [facility], 163.83, cm, 11/19/23 7:58:00 E... oxyCODONE-acetaminophen 5 mg-325 mg oral tablet, 1 tab, Oral, BID, PRN as needed for pain, # 30 tab, 0 Refill(s), Pharmacy: [facility], 163.83, cm, 11/19/23 7:58:00 EDT, Height, 75.8, kg, 11/27/23 14:18:00 EDT, Weight Dosing ?? The patient has struggled with chronic neck pain and intermittent paresthesias affecting her hands for multiple years however 1 month ago this seemed to progress significantly.?? She has increased pain??in her neck and upper back between the shoulder blades, increased paresthesias of the bilateral hands??and now the bottom of her feet??as well as progressive weakness of the left??upper and lower extremity.?? Her reflexes are also now more hyperreflexic??and she also has a new Della's??reflex??on the left side.?? She has noticed some changes to her balance though not significantly.?? The patient's cervical spinal stenosis has progressed??since her last imaging.?? 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 However, given??the findings on her MRI and progression of her symptoms I think she is a surgical candidate??for multilevel ACDF.?? We did discussthe nature of the surgery including the risks of infection, bleeding,??dysphonia, dysphagia, nerve injury and paralysis. ??The nature of postoperative recovery was discussed.?? Given the??progressionof her symptoms this should likely be done more urgently and we did discuss that??a referral to may be indicated as that may be the quickest option for her to have surgery for this issue. ??I will review her imaging with Dr. Funez early next week after we have the x-rays completed to determine next steps.?? In the meantime,??I have prescribed the patient a short prescription of Percocet that she is going to take at nighttime to help her sleep as she has not been sleeping due to her pain.?? She would not take this during the day as she has to work and function with her young child.?? I am also going to prescribe her a short prescription of ketorolac that she can take up to 4 times a day as needed for the pain. ??She should take this with food and avoid other NSAIDs while brooks ing this medication.?? She agrees with this plan. Plan: AP and lateral and flexion-extension cervical spine x-rays. The patient's imaging will be reviewed Dr. Funez next week for likely??surgical correction of hercervical spinal stenosis. Problem List/Past Medical History Ongoing Anemia Anxiety Asthma Bilateral sacroiliitis Cervical spinal stenosis Cervical spondylosis Pedraza sign present Hyperreflexia Insomnia Lower extremity weakness Menstrual abnormality Migraine headache with aura Migraine with aura, not intractable, without status migrainosus Neck pain Neuroforaminal stenosis of cervical spine Paresthesias POTS (postural orthostatic tachycardia syndrome) Sleep apnea Upper extremity weakness Historical No qualifying data Procedure/Surgical History ???Colonoscopy (2019)??? section (09/03/2015)???Extraction of wisdom tooth Medications albuterol 1.25 mg/3 mL (0.042%) inhalation solution cyclobenzaprine 5 mg oral tablet, 5 mg= 1 tab, Oral, TID, PRN erenumab-aooe 70 mg/mL subcutaneous solution, 70 mg, Subcutaneous, every month, 6 refills gabapentin 100 mg oral capsule, 100 mg= 1 cap, Oral, TID, 6 refills hydrOXYzine hydrochloride 25 mg oral tablet, 25 mg= 1 tab, Oral, Daily ketorolac 10 mg oral tablet, 10 mg= 1 tab, Oral, QID, PRN Lexapro 20 mg oral tablet, 20 mg= 1 tab, Oral, Daily Medrol 4 mg oral tablet, 1 packets, Oral, Daily metoprolol succinate 50 mg oral tablet, extended release, 50 mg= 1 tab, Oral, BID, 1 refills Mirena 52 mg intrauteral device montelukast 10 mg oral tablet, 10 mg= 1 tab, Oral, Daily oxyCODONE-acetaminophen 5 mg-325 mg oral tablet, 1 tab, Oral, BID, PRN Relpax 20 mg oral tablet, 20 mg= 1 tab, Oral, Daily, PRN, 1 refills Trelegy Ellipta 200 mcg-62.5 mcg-25 mcg/inh inhalation powder Ventolin HFA 90 mcg/inh inhalation aerosol, 2 puffs, Inhale, every 6 hr, 3 refills Allergies Banana Fleming Symbicort vancomycin Cats??(Unknown) Dogs??(Unknown) Dust??(Unknown) Tape budesonide-formoterol??(Unknown) formoterol??(Unknown) formoterol-mometasone??(Unknown) Social History Alcohol Never Electronic Cigarette/Vaping Electronic Cigarette Use: Never, Unknown/not obtained. Tobacco Never tobacco user, Tobacco use status unknown Tobacco Use:. Family History Hypertension: Father. Diagnostic Results Diagnostic Study Interpretation: MRI of the cervical and thoracic spines were reviewed personally and shared with the patient.?? There is reversal of the cervical lordosis.?? At C3-4 there is a mild posterior disc osteophyte complexcausing thecal sac mentation but no significant stenosis.?? At C4-5 there is again a posterior discosteophyte complex with mild bilateral uncovertebral spurring and right facet hypertrophy causing mild central stenosis and mild right neuroforaminal narrowing.?? At C5-6 she has a posterior disc osteophyte complex with mild left uncovertebral spurring causing central stenosis and mild left neuroforaminal narrowing.?? At C6-7 there is a posterior disc osteophyte complex causing thecal sac indentation but no significant stenosis. Overall, the MRI of the thoracic spine was reassuring.?? At T3-4 there is a small posterior disc osteophyte complex causing thecal sac mentation and potentially contact with the thoracic spinal cord but no significant stenosis.?? There are mild disc bulges at the T4-5 and T5-6 levels as well but again no significant stenosis. Electronically Signed on 11/27/2023 17:01 EDT Atiya Reno APRN-RV SERVICE TECHNICIAN Patient Care team information Care Team Personnel Name: KEVEN PURI DNP Position: No Access Member Role: Primary Care Physician Address: [address] Care Team Related Persons Name: JOAQUIM MCCOY Name: JENIFFER GALLEGOS Name: MERLE JARRETT Insurance Providers Guarantor name: KIANA JUNIORFIELD Health Plan Information #: 1 Payer: [place] Member Number: [id number] Policy Number: NA Health Plan Information #: 2 Payer: [place] Member Number: [id number] Policy Number: NA
--- OUTSIDE RECORDS SUMMARY | 2024-03-18 15:47 | XMS_ITS | Continuity of Care Document ---
Author Organization [facility] Address [address] [place] [id number] Care Team Providers Care Imagery Analyst Name Role Phone JAXSON KEVEN LEMON Primary Care Physician [phone] Encounter [facility] NBR [id number] Date(s): 11/20/23 - 11/20/[address] [address] Discharge Disposition: Home or Self Care Attending Physician: Patience Llamas MD Admitting Physician: Patience Llamas MD Referring Physician: Patience Llamas MD Allergies, Adverse Reactions, Alerts Substance Criticality Severity Reaction Reaction Severity Status vancomycin Low criticality Mild Act jamshid formoterol Unable to assess criticality Unknown Unknown Active budesonide-formoterol Unable to assess criticality Unknown Unknown Active Holt Low criticality Mild Acti ve Banana Low criticality Mild Acti ve Symbicort Low criticality Mild Acti ve formoterol-mometasone [...] 0 Refill(s) Start Date: 08/06/23 Status: Ordered cyclobenzaprine 5 mg oral tablet 5 mg = 1 tab, Oral, TID, PRN as needed for muscle spasm, Use caution due to risk of sedation., # 30tab, 0 Refill(s), Pharmacy: [id number], 165.1, cm, 10/21/23 15:22:00 EDT, Height, 73.48, kg, 10/30/23 9:08:00 EDT, Weight Dosing Start Date: 11/11/23 Status: Ordered Deblitane 0.35 mg oral tablet 84 EA, 0 Refill(s), TAKE ONE TABLET BY MOUTH EVERY DAY, 0 Refill(s) Start Date: 09/28/23 Status: Ordered gabapentin 100 mg oral capsule 100 mg = 1 cap, Oral, TID, # 180 cap, 6 Refill(s), Pharmacy: [id number] Start Date: 12/10/22 Status: Ordered hydrOXYzine [...] labeling, # 21 tab, 0 Refill(s), Pharmacy: [id number], 165.1, cm, 10/21/23 15:22:00 EDT, Height, 73.48, kg, 10/30/23 9:08:00 EDT, Weight Dosing Start Date: 11/11/23 Stop Date: 11/17/23 Status: Ordered metoprolol succinate 50 mg oral tablet, extended release 50 mg = 1 tab, Oral, BID, # 180 tab, 1 Refill(s), Pharmacy: [facility], [...] # 18 g, 3 Refill(s), Pharmacy: [facility], 165.1, cm, 10/21/23 15:22:00 EDT, Height, [...] d Extraction of wisdom tooth Completed Results Radiology Reports * Exam Date Time Procedure Performing Provider Status 11/20/23 11:[address] Chest w/o Contrast Ashley Ochoa (Verified) Notes: (CT Chest w/o Contrast) Reason For Exam: persistent Lft sided CP associated w/ earlier asthma exacerbation- ?rib fxs or other abnormalities CT Chest w/o Contrast EXAM DESCRIPTION: CT Chest w/o Contrast 11/20/2023 INDICATION: PERSISTENT LFT SIDED CP ASSOCIATED W/ EARLIER ASTHMA EXACERBATION- ?RIB FXS OR OTHER ABNORMALITIES TECHNIQUE: All CT scans at this facility use at least one of these dose optimization techniques: Automated exposure control; mA and/or kV adjustment per patient size (includes targeted exams where dose is matched to clinical indication); or iterative reconstruction. Technique: Axial CT images of the chest without intravenous contrast administration COMPARISON: CT angiography chest examination from 09/14/2023 FINDINGS: Mediastinal evaluation is limited by lack of IV contrast. No mediastinal mass or adenopathy is identified. No axillary adenopathy. No pericardial effusion. Normal caliber thoracic aorta No focal infiltrate or pulmonary mass with mild scarring in the posterior aspect of the right lower lobe with mild biapical scarring as described previously. No significant emphysematous changes. No central endobronchial filling defect identified. No pleural effusion or pneumothorax The visualized upper abdomen demonstrates a normal unenhanced CT appearance No suspicious regional osseous lesions. IMPRESSION: No focal infiltrate or pulmonary mass with mild scarring in the right lower lobe and both lung apices as described previously. JOB #: [id number] Final Signed by: Amor Trotter MD Signed (Electronic Signature): 11/20/2023 11:22 am Social History Social History Type Response Tobacco Never tobacco user, Tobacco use status unknown Tobacco Use:. Sex Sex Representation Female (finding) Patient Care team information Care Team Personnel Name: KEVEN PURI DNP Position: No Access Member Role: Primary Care Physician Address: [address] Care Team Related Persons Name: JOAQUIM MCCOY Name: JENIFFER GALLEGOS Name: MERLE JARRETT Insurance Providers Guarantor name: KIANA ISABEL Health Plan Information #: 1 Payer: [place] Member Number: [id number] Policy Number: NA Health Plan Information #: 2 Payer: [place] [place] Member Number: [id number] Policy Number: NA
--- OUTSIDE RECORDS SUMMARY | 2024-03-18 15:47 | XMS_ITS | Continuity of Care Document ---
Author Organization 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 Ambulatory Clinics [address] [place], [place] [address] Encounter Diagnosis S/P cervical spinal fusion(Discharge Diagnosis) - 01/26/24 Discharge Disposition: Home or Self Care Attending Physician: Austen Funez MD Allergies, Adverse Reactions, Alerts Substance Criticality Severity Reaction Reaction Severity Status vancomycin High criticality Moderate Swelling of oral cavity structure Fever Active budesonide-formote rol Low criticality Mild Rash Hives Active formoterol-mometas one Low criticality Mild Hives Rash Active Tape Low criticality Mild Skin irritation Active [place] Low criticality Mild Stomach upset Active Dust Low criticality Mild Rash Acti ve Cats Low criticality Mild Rash Acti ve Dogs Low criticality Mild Rash Acti ve Banana Low criticality Mild stomsch upset Active Assessment and Plan Extracted from: Title:Office Visit Note Author:Austen Funez MD Date:01/26/24 1.??S/P cervical spinal fusi on??Z98.1 ??The patient is doing well. ??All of the preoperative symptoms are improving which is a good sign. ??It is likely they will continue to improve.?? 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 ??I think this is??a good idea. ??After a week she can??work??at??home 4 hours/day.?? Within 3 or 4 weeks the patient will be able to return to work.?? She does not need any physical therapy at the current time. Plan: AP lateral cervical x-rays Follow-up appointment 2 to 3 weeks ? Future Appointments Immunizations Given and Recorded Vaccine [...] sedation., # 30 tab, 1 Refill(s), Pharmacy: [facility], 162.56, cm, 12/02/23 8:43:00 EDT, Height, 76.1, kg, 12/02/23 8:48:00 EDT, Weight Dosing Start Date: 12/16/23 Status: Ordered erenumab-aooe 70 mg/mL subcutaneous solution 70 mg =, Subcutaneous, every month, # 1 mL, 6 Refill(s), Pharmacy: [facility], 163.83, cm, 11/19/23 7:58:00 EDT, Height, 74.66, kg, 11/19/23 8:10:00 EDT, Weight Dosing Start Date: 11/25/23 Status: Ordered gabapentin 100 mg oral capsule 100 mg = 1 cap, Oral, TID, # 180 cap, 6 Refill(s), Pharmacy: [facility] Start Date: 12/10/22 Status: Ordered HYDROcodone-acetaminophen 5 mg-325 mg oral tablet 1 tab, Oral, every 6 hr, PRN as needed for pain, May increase to 2 tab TID PRN but use caution due to increased risk of sedation., # 40 tab, 0 Refill(s), Pharmacy: [facility], 165, cm, 11/25/24 16:29:00 EST, Height, 77.11, kg, 01/12/24 8:50:00 EST, Weight Dosing Start Date: 01/19/24 Status: Ordered hydrOXYzine hydrochloride 25 mg oral tablet 25 mg = 1 tab, Oral, Daily, PRN as needed for anxiety, # 30 tab, 0 Refill(s) Start Date: 10/21/23 Status: Ordered Lexapro 20 mg oral tablet 20 mg = 1 tab, Oral, Daily, # 30 tab, 0 Refill(s) Start Date: 10/21/23 Status: Ordered metoprolol succinate 50 mg oral tablet, extended release 50 mg = 1 tab, Oral, BID, # 180 tab, 1 Refill(s), Pharmacy: [facility], 165.1, cm, 05/07/23 15:22:00 EDT, [...] Daily, # 30 tab, 4 Refill(s), Pharmacy: [facility], 162.56, cm, :43:00 EDT, Height, 76.1, kg, 12/02/23 8:48:00 EDT, Weight Dosing Start Date: 12/02/23 Status: Ordered Relpax 20 mg oral tablet 20 mg = 1 tab, Oral, Daily, PRN as needed for migraine headache, may repeat dose once in 2 hours, #12 tab, 1 Refill(s), Pharmacy: [facility], 165.1, cm, 08/06/23 7:59:00 EDT, Height, 77.2, kg,08/06/23 8:07:00 EDT, Weight Dosing Start Date: 08/06/23 Status: Ordered Tezspire Pre-filled Pen 210 mg/1.91 mL subcutaneous solution 210 mg =, Subcutaneous, every 4 wk, # 1 EA, 5 Refill(s), Pharmacy: [facility], 162.56, cm, 12/02/23 8:43:00 EDT, Height, 76.1, kg, 12/02/23 8:48:00 EDT, Weight Dosing Start Date: 12/07/23 Status: Ordered Trelegy Ellipta 200 mcg-62.5 mcg-25 mcg/inh inhalation powder 1 inh, Daily, 0 Refill(s) Start Date: 08/27/22 Status: Ordered Ventolin HFA 90 mcg/inh inhalation aerosol 2 puffs, Inhale, every 6 hr, 18 g, INHALE 2 PUFFS BY MOUTH EVERY 6 HOURS NEEDED FOR SHORTNESS OFBREATH OR WHEEZING, # 18 g, 3 Refill(s), Pharmacy: [facility], 165.1, cm, 10/21/23 15:22:00 EDT, Height, 73.48, kg, 10/30/23 9:08:00 EDT, Weight Dosing Start Date: 11/10/23 Status: Ordered Problem List Condition Confirmation Course Effective Dates Status H ealth Status Informant Anemia Confirmed Active Anxiety Confirmed Active Asthma Confirmed Active Bilateral sacroiliitis Confirmed Active Menstrual abnormality Confirmed Active S/P cervical spinal fusion Confirmed Active Pedraza sign present Confirmed Active [...] Procedure Date Related Diagnosis Body Site Status Anterior Cervical Fusion 1 01/18/24 Completed Colonoscopy 2019 Completed section 09/02/15 Complete d Extraction of wisdom tooth Completed 1auto-populated from documented surgical case Vital Signs Most recent to oldest [Reference Range]: 1 Temperature Temporal Artery [36-38 Deg C ] 36.2 Deg C (01/26/24 1:56 PM) Peripheral Pulse Rate [60-100 bpm] 97 bp m (01/26/24 1:56 PM) Blood Pressure [90-120/60-80 mmHg] 122/7 2mmHg *HI* (01/26/24 1:56 PM) Mean Arterial Pressure, Cuff [65-140 mmH g] 89 mmHg (01/26/24 1:56 PM) Social History Social History Type Response Tobacco Never tobacco user, Tobacco use status unknown Tobacco Use:. Sex Sex Representation Female (finding) Implantable Device List Procedure Provider Procedure Date Device Type Site Anterior Cervical Fusion Austen Funez MD 01/18/24 Un known Neck Device Identifier Serial Number Lot or Batch Number Manufacturing Date Expiration Date Distinct Identification Code MRI Safety Implantable Status Assigning Authority Unknown [id number] Unknown Unknown 08/15/25 Unknown Unknown Active Unknown Unknown Unknown [id number] Unknown 05/05/28 Unknown Unknown Active Unknown Unknown Unknown [id number] Unknown 12/25/27 Unknown Unknown Active Unknown Unknown Unknown M1L2 024 Unknown Unknown Unknown Unknown Active Unknown Unknown Unknown M1L2 4 Unknown Unknown Unknown Unknown Active Unknown Physician Outpatient Note * Austen Funez MD: PERFORM Event Display: Office Clinic Note Physician Authored Date: [id number] KIANA ISABEL I :1990 Age:33 years Sex:Female Visit Date:01/26/2024 Primary Care Physician: KEVEN PURI DNP History of Present Illness The patient is a week since having had her two-level cervical fusion.?? She??says the character of the pain is different now. ??She says it feels more muscular than it did before.?? It is in the trapezius area.?? She feels as though the numbness in her hands has improved significantly.?? She is also not getting??the??uncomfortable feeling in her legs that make her feel as though her balance is poor.?? She still??has some neck discomfort and she takes medications only at night.?? There is a little bit of swallowing difficulty. Physical Exam The patient is alert and conversant. There is a little swelling around the wound.?? There is no drainage or erythema. Voice is normal. Respirations are unlabored. Gait and station are normal. Assessment/Plan 1.??S/P cervical spinal fusion??Z98.1 ??The patient is doing well. ??All of the preoperative symptoms are improving which is a good sign.??It is likely they will continue to improve.?? 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 ??I think this is??a good idea. ??After a week she can??work??at??home 4 hours/day.?? Within 3 or 4 weeks the patient will be able to return to work.?? She does not need any physical therapy at the current time. Plan: AP lateral cervical x-rays Follow-up appointment 2 to 3 weeks Problem List/Past Medical History Ongoing Anemia Anxiety Asthma Bilateral sacroiliitis Pedraza sign present Hyperreflexia Insomnia Lower extremity weakness Menstrual abnormality Migraine headache with aura Migraine with aura, not intractable, without status migrainosus Neck pain Neuroforaminal stenosis of cervical spine Paresthesias POTS (postural orthostatic tachycardia syndrome) S/P cervical spinal fusion Sleep apnea Upper extremity weakness Historical Cervical spinal stenosis Cervical spondylosis Procedure/Surgical History ???Anterior Cervical Fusion (01/18/2024)???Colonoscopy (2019)??? section (09/03/2015)???Extraction of wisdom tooth Medications albuterol 1.25 mg/3 mL (0.042%) inhalation solution cyclobenzaprine 5 mg oral tablet, 5 mg= 1 tab, Oral, TID, PRN, 1 refills erenumab-aooe 70 mg/mL subcutaneous solution, 70 mg, Subcutaneous, every month, 6 refills gabapentin 100 mg oral capsule, 100 mg= 1 cap, Oral, TID, 6 refills HYDROcodone-acetaminophen 5 mg-325 mg oral tablet, 1 tab, Oral, every 6 hr, PRN hydrOXYzine hydrochloride 25 mg oral tablet, 25 mg= 1 tab, Oral, Daily, PRN Lexapro 20 mg oral tablet, 20 mg= 1 tab, Oral, Daily metoprolol succinate 50 mg oral tablet, extended release, 50 mg= 1 tab, Oral, BID, 1 refills Mirena 52 mg intrauteral device montelukast 10 mg oral tablet, 10 mg= 1 tab, Oral, Daily Protonix 40 mg oral delayed release tablet, 40 mg= 1 tab, Oral, Daily, 4 refills Relpax 20 mg oral tablet, 20 mg= 1 tab, Oral, Daily, PRN, 1 refills Tezspire Pre-filled Pen 210 mg/1.91 mL subcutaneous solution, 210 mg, Subcutaneous, every 4 wk, 5 refills Trelegy Ellipta 200 mcg-62.5 mcg-25 mcg/inh inhalation powder, 1 inh, Daily Ventolin HFA 90 mcg/inh inhalation aerosol, 2 puffs, Inhale, every 6 hr, 3 refills Allergies vancomycin??(Swelling of oral cavity structure, Fever) Banana??(stomsch upset) Cats??(Rash) Dogs??(Rash) Dust??(Rash) [place]??(Stomach upset) Tape??(Skin irritation) budesonide-formoterol??(Rash, Hives) formoterol-mometasone??(Hives, Rash) Social History Alcohol Never Electronic Cigarette/Vaping Electronic Cigarette Use: Never, Unknown/not obtained. Substance Use Never Tobacco Never tobacco user, Tobacco use status unknown Tobacco Use:. Family History Hypertension: Father. Immunizations Vaccine Date Status influenza virus vaccine, inactivated 12/16/2023 Given Electronically Signed on 01/26/2024 10:25 EST Austen Funez MD Patient Care team information Care Team Personnel Name: KEVEN PURI DNP Position: No Access Member Role: Primary Care Physician Address: [place] [address]- Care Team Related Persons Name: JOAQUIM MCCOY Name: JENIFFER GALLEGOS Name: MERLE JARRETT Insurance Providers Guarantor name: KIANA ISABEL Health Plan Information #: 1 Payer: [place]ICAID [place] Member Number: [id number] Policy Number: NA Health Plan Information #: 2 Payer: [place] Member Number: [id number] Policy Number: NA
--- OUTSIDE RECORDS SUMMARY | 2024-03-18 15:47 | XMS_ITS | Continuity of Care Document ---
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 Name Role Phone JAXSON KEVEN LEMON Primary Care Physician Encounter [facility] NBR [id number] Date(s): 11/27/23 - 11/27/[address] [address] Discharge Disposition: Home or Self Care Attending Physician: WALT Mcdowell Admitting Physician: WALT Mcdowell Referring Physician: WALT Mcdowell Allergies, Adverse Reactions, Alerts Substance Criticality Severity [...] Active Banana Low criticality Mild Acti ve [place]ent Low criticality Mild Acti ve Dust Unable [...] of sedation., # 30tab, 0 Refill(s), Pharmacy: [facility], 165.1, cm, 10/21/23 15:22:00 EDT, Height, 73.48, kg, 10/30/23 9:08:00 EDT, Weight Dosing Start Date: 11/11/23 Status: Ordered erenumab-aooe 70 mg/mL subcutaneous solution 70 mg =, Subcutaneous, every month, # 1 mL, 6 Refill(s), Pharmacy: [facility], 163.83, cm, 11/19/23 7:58:00 EDT, Height, 74.66, kg, 11/19/23 8:10:00 EDT, Weight Dosing Start Date: 11/25/23 Status: Ordered gabapentin 100 mg oral capsule 100 mg = 1 cap, Oral, TID, # 180 cap, 6 Refill(s), Pharmacy: [facility] Start Date: 12/10/22 Status: Ordered hydrOXYzine [...] medication., # 16 tab, 0 Refill(s), Pharmacy: [facility], 163.83, cm, 11/19/23 7:58:00 EDT, Height, 75.8, kg, 11/27/23 14:18:00 EDT, Weight Dosing Start Date: 11/27/23 Status: Ordered Lexapro 20 mg oral tablet 20 mg = 1 tab, Oral, Daily, # 30 tab, 0 Refill(s) Start Date: 10/21/23 Status: Ordered Medrol 4 mg oral tablet 1 packets, Oral, Daily, as directed on package labeling, # 21 tab, 0 Refill(s), Pharmacy: [facility], 165.1, cm, 10/21/23 15:22:00 EDT, Height, 73.48, kg, 10/30/23 9:08:00 EDT, Weight Dosing Start Date: 11/11/23 Stop Date: 11/17/23 Status: Ordered metoprolol succinate 50 mg oral tablet, extended release 50 mg = 1 tab, Oral, BID, # 180 tab, 1 Refill(s), Pharmacy: [facility], 165.1, cm, 05/07/23 15:22:00 EDT, Height, [...] pain, # 30 tab, 0 Refill(s), Pharmacy: [facility], 163.83, cm, 11/19/23 7:58:00 EDT, Height, 75.8, kg, 11/27/23 14:18:00 EDT, Weight Dosing Start Date: 11/27/23 Status: Ordered Relpax 20 mg oral tablet 20 mg = 1 tab, Oral, Daily, PRN as needed for migraine headache, may repeat dose once in 2 hours, #12 tab, 1 Refill(s), Pharmacy: [facility], 165.1, cm, 08/06/23 7:59:00 EDT, Height, [...] WHEEZING, # 18 g, 3 Refill(s), Pharmacy: [facility], 165.1, cm, 10/21/23 15:22:00 EDT, Height, [...] Exam Date Time Procedure Performing Provider Status 11/27/23 3:37 PM XR Spine Cervical 4 or 5 Views Priti Chatman (Verified) Notes: (XR Spine Cervical 4 or 5 Views) Reason For Exam: cervical spinal stenosis, possible OPLL XR Spine Cervical 4 or 5 Views EXAM DESCRIPTION: XR Spine Cervical 4 or 5 Views 11/27/2023 INDICATION: CERVICAL SPINAL STENOSIS, POSSIBLE OPLL TECHNIQUE: AP and lateral views of the cervical spine including lateral views with voluntary flexion/extension, four views COMPARISON: 07/31/2022 IMPRESSION: No acute fracture or subluxation. Prevertebral soft tissues are within normal limits Reversal of cervical lordosis in the neutral position which may reflect patient positioning or muscle spasm Spondylotic changes at C5-6 with intervertebral disc space narrowing and endplate osteophyte formation as described previously. Remaining intervertebral disc spaces are well maintained throughout the cervical region. Views with voluntary flexion/extension demonstrate no evidence of significant instability. JOB #: [id number] Final Signed by: Amor Trotter MD Signed (Electronic Signature): 11/27/2023 3:49 pm Social History Social History Type Response Tobacco Never tobacco user, Tobacco use status unknown Tobacco Use:. Sex Sex Representation Female (finding) Patient Care team information Care Team Personnel Name: KEVEN PURI DNP Position: No Access Member Role: Primary Care Physician Address: [address] Care Team Related Persons Name: JOAQUIM MCCOY Name: JENIFFER GALLEGOS Name: MERLE JARRETT Insurance Providers Guarantor name: KIANA ISABEL Health Plan Information #: 1 Payer: [place]ID [place] Member Number: [id number] Policy Number: NA Health Plan Information #: 2 Payer: [place]ID [place] Member Number: [id number] Policy Number: NA
--- OUTSIDE RECORDS SUMMARY | 2024-03-18 15:47 | XMS_ITS | Continuity of Care Document ---
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 Name Role Phone JAXSON KEVEN LEMON Primary Care Physician Encounter [facility] NBR [id number] Date(s): 12/29/23 - 12/29/23 [facility] Ambulatory Clinics [address] [place], [place] [address] Encounter Diagnosis Cervical spinal stenosis(Discharge Diagnosis) - 12/29/23 Discharge Disposition: Home or Self Care Attending Physician: Austen Funez MD Allergies, Adverse Reactions, Alerts Substance Criticality Severity Reaction Reaction Severity Status vancomycin Low criticality Mild Act jamshid formoterol Unable to assess criticality Unknown Unknown Active [place] Low criticality Mild Acti ve Banana Low criticality Mild Acti ve budesonide-formoterol Unable [...] Plan Extracted from: Title:Office Visit Note Author:Austen Funze MD Date:12/29/23 1.??Cervical spinal stenosis ??M48.02 ??The patient has a kyphotic deformity that mainly at the C4-5 level. ??There is also moderate spinal stenosis at this level.?? There is much more degeneration at??C5-6??where the disc space is collapsed??and??there is significant??cervical spinal stenosis with bilaterally narrowed neuroforamina.?? The disc spaces at the C3-4 and C6-7 areas??are much more normal??and there is only moderate stenosis with no neural foraminal narrowing.?? Given this she was told that??the most likely pain generators and areas of concern are C4-5 and C5-6.?? Surgically treating these areas should alleviate most of her symptoms.?? The risks of surgery which include??dysphonia, dysphagia and paralysis along with the need for further surgery were discussed.?? Patient seems to have a good understanding of this. ?? Plan: C4-5, C5-6 anterior cervical discectomy with fusion Consider C6-7 ? Future Appointments Immunizations Given and Recorded [...] sedation., # 30 tab, 1 Refill(s), Pharmacy: [facility], 162.56, cm, 12/02/23 8:43:00 EDT, Height, 76.1, kg, 12/02/23 8:48:00 EDT, Weight Dosing Start Date: 12/16/23 Status: Ordered cyclobenzaprine 5 mg oral tablet 5 mg = 1 tab, Oral, TID, PRN as needed for muscle spasm, Use caution due to risk of sedation., # 30tab, 0 Refill(s), Pharmacy: [facility], 165.1, cm, 10/21/23 15:22:00 EDT, Height, 73.48, kg, 10/30/23 9:08:00 EDT, Weight Dosing Start Date: 11/11/23 Status: Ordered erenumab-aooe 70 mg/mL subcutaneous solution 70 mg =, Subcutaneous, every month, # 1 mL, 6 Refill(s), Pharmacy: [facility], 163.83, cm, 11/19/23 7:58:00 EDT, Height, 74.66, kg, 11/19/23 8:10:00 EDT, Weight Dosing Start Date: 11/25/23 Status: Ordered gabapentin 100 mg oral capsule 100 mg = 1 cap, Oral, TID, # 180 cap, 6 Refill(s), Pharmacy: [facility] Start Date: 12/10/22 Status: Ordered HYDROcodone-acetaminophen 5 mg-325 mg oral tablet 1 tab, Oral, TID, PRN as needed for pain, May increase to 2 tab TID PRN but use caution due to increased risk of sedation., # 60 tab, 0 Refill(s), Pharmacy: [facility], 162.56, cm, 12/02/23 8:43:00 EDT, Height, [...] medication., # 16 tab, 0 Refill(s), Pharmacy: [facility], 163.83, cm, 11/19/23 7:58:00 EDT, Height, 75.8, kg, 11/27/23 14:18:00 EDT, Weight Dosing Start Date: 11/27/23 Status: Ordered Lexapro 20 mg oral tablet 20 mg = 1 tab, Oral, Daily, # 30 tab, 0 Refill(s) Start Date: 10/21/23 Status: Ordered Medrol 4 mg oral tablet 1 packets, Oral, Once, as directed on package labeling, # 21 tab, 0 Refill(s), Pharmacy: [facility], 162.56, cm, 12/02/23 8:43:00 EDT, Height, 76.1, kg, 12/02/23 8:48:00 EDT, Weight Dosing Start Date: 12/16/23 Status: Ordered Medrol 4 mg oral tablet 1 packets, Oral, Daily, as directed on package labeling, # 21 tab, 0 Refill(s), Pharmacy: [facility], 165.1, [...] # 30 tab, 4 Refill(s), Pharmacy: [facility], 162.56, cm, 248:43:00 EDT, Height, 76.1, kg, 12/02/23 8:48:00 EDT, Weight Dosing Start Date: 12/02/23 Status: Ordered Relpax 20 mg oral tablet 20 mg = 1 tab, Oral, Daily, PRN as needed for migraine headache, may repeat dose once in 2 hours, #12 tab, 1 Refill(s), Pharmacy: [facility], 165.1, cm, 08/06/23 7:59:00 EDT, Height, 77.2, kg,08/06/23 8:07:00 EDT, Weight Dosing Start Date: 08/06/23 Status: Ordered Tezspire Pre-filled Pen 210 mg/1.91 mL subcutaneous solution 210 mg =, Subcutaneous, every 4 wk, # 1 EA, 5 Refill(s), Pharmacy: [facility], 162.56, cm, 12/02/23 8:43:00 [...] WHEEZING, # 18 g, 3 Refill(s), Pharmacy: [facility], 165.1, cm, 10/21/23 15:22:00 EDT, Height, [...] Temperature Temporal Artery [36-38 Deg C ] 36.1 Deg C (12/29/23 11:45 AM) Peripheral Pulse Rate [60-100 bpm] 88 bp m (12/29/23 11:45 AM) Blood Pressure [90-120/60-80 mmHg] 122/7 0mmHg *HI* (12/29/23 11:45 AM) Mean Arterial Pressure, Cuff [65-140 mmH g] 87 mmHg (12/29/23 11:45 AM) Weight 78.7 kg (12/29/23 11:45 AM) Weight Measured (lbs) 173.504 lb (12/29/23 11:45 AM) Weight Dosing 78.700 kg (12/29/23 11:45 AM) [place] Body Weight Calculated 54.7 kg (12/29/23 11:45 AM) Height 162.56 cm (12/29/23 11:45 AM) Height/Length Measured (inches) 64 inch (12/29/23 11:45 AM) BSA Measured 1.89 m2 (12/29/23 11:45 AM) Body Mass Index 29.78 kg/m2 (12/29/23 11:45 AM) Social History Social History Type Response Tobacco Never tobacco user, Tobacco use status unknown Tobacco Use:. Sex Sex Representation Female (finding) Physician Outpatient Note * Austen Funez MD: PERFORM Event Display: Office Clinic Note Physician Authored Date: [id number] KIANA ISABEL I :1990 Age:33 years Sex:Female Visit Date:12/29/2023 Primary Care Physician: KEVEN PURI DNP Chief Complaint Neck pain (per-op) Additional Information No changes. History of Present Illness Is here for preoperative evaluation. ??She continues to have??quite disabling??pain in the neck that radiates down into both arms with numbness and tingling as previously outlined.?? The pain??is constantly present but it does wax and wane in intensity and she says today is not nearly as bad.?? Some days she is has a hard time even??lifting food to her mouth when she eats.?? She has done some research on anterior cervical discectomy and fusion. Physical Exam Vitals & Measurements T:??36.1?C ??(Temporal Artery)?? HR:??88??(Peripheral)?? BP:??122/70?? SpO2:??99%?? HT:??162.56??cm?? WT:??78.7??kg?? BMI:??29.78?? Pain Score:??6?? BSA:??1.89?? The patient is alert and pleasant.?? She appears to be a bit uncomfortable.?? Her head does not move in a normal fashion during conversation.?? She tends to hold it much more rigidly. Motor examination shows good power in the intrinsic hand muscles, wrist extensors, biceps and triceps bilaterally. Respirations are unlabored. The pulse was regular. Assessment/Plan 1.??Cervical spinal stenosis??M48.02 ??The patient has a kyphotic deformity that mainly at the C4-5 level. ??There is also moderate spinal stenosis at this level.?? There is much more degeneration at??C5-6??where the disc space is collapsed??and??there is significant??cervical spinal stenosis with bilaterally narrowed neuroforamina.??The disc spaces at the C3-4 and C6-7 areas??are much more normal??and there is only moderate stenosis with no neural foraminal narrowing.?? Given this she was told that??the most likely pain generators and areas of concern are C4-5 and C5-6.?? Surgically treating these areas should alleviate most of her symptoms.?? The risks of surgery which include??dysphonia, dysphagia and paralysis along with the need for further surgery were discussed.?? Patient seems to have a good understanding of this. ?? Plan: C4-5, C5-6 anterior cervical discectomy with fusion Consider C6-7 Problem List/Past Medical History Ongoing Anemia Anxiety [...] 1 tab, Oral, TID, PRN, 1 refills cyclobenzaprine 5 mg oral tablet, 5 mg= 1 tab, Oral, TID, PRN erenumab-aooe 70 mg/mL subcutaneous solution, 70 mg, Subcutaneous, every month, 6 refills gabapentin 100 mg oral capsule, 100 mg= 1 cap, Oral, TID, 6 refills HYDROcodone-acetaminophen 5 mg-325 mg oral tablet, 1 tab, Oral, TID, PRN hydrOXYzine hydrochloride 25 mg oral tablet, 25 mg= 1 tab, Oral, Daily ketorolac 10 mg oral tablet, 10 mg= 1 tab, Oral, QID, PRN Lexapro 20 mg oral tablet, 20 mg= 1 tab, Oral, Daily Medrol 4 mg oral tablet, 1 packets, Oral, Once Medrol 4 mg oral tablet, 1 packets, [...] every 6 hr, 3 refills Allergies Banana [place] Symbicort vancomycin Cats??(Unknown) Dogs??(Unknown) Dust??(Unknown) Tape budesonide-formoterol??(Unknown) formoterol??(Unknown) formoterol-mometasone??(Unknown) Social History Alcohol Never Electronic Cigarette/Vaping Electronic Cigarette Use: Never, Unknown/not obtained. Tobacco Never tobacco user, Tobacco use status unknown Tobacco Use:. Family History Hypertension: Father. Immunizations Vaccine Date Status influenza virus vaccine, inactivated 12/16/2023 Given Electronically Signed on 12/29/2023 11:55 EST Austen Funez MD Patient Care team information Care Team Personnel Name: KEVEN PURI DNP Position: No Access Member Role: Primary Care Physician Address: [address] Care Team Related Persons Name: JOAQUIM MCCOY Name: JENIFFER GALLEGOS Name: MERLE JARRETT Insurance Providers Guarantor name: KIANA Fam [facility] Health Plan Information #: 1 Payer: [place] Member Number: [id number] Policy Number: NA Health Plan Information #: 2 Payer: [place] Member Number: [id number] Policy Number: NA
--- OUTSIDE RECORDS SUMMARY | 2024-03-18 15:47 | XMS_ITS | Continuity of Care Document ---
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 Name Role Phone JAXSON KEVEN LEMON Primary Care Physician [phone] Encounter [facility] NBR [id number] Date(s): 12/09/23 - 12/09/23 [facility] Ambulatory Clinics [address] [place], [place] [address] Discharge Disposition: Home Allergies, Adverse Reactions, Alerts Substance Criticality Severity Reaction Reaction Severity Status vancomycin Low criticality Mild Act jamshid formoterol Unable to assess criticality Unknown Unknown Active Symbicort Low criticality Mild Acti ve Cats Unable to assess criticality Unknown Unknown Active Dogs Unable to assess criticality Unknown Unknown Active [place] Low criticality Mild Acti ve budesonide-formoterol Unable [...] of sedation., # 30tab, 0 Refill(s), Pharmacy: [facility], 165.1, cm, 10/21/23 15:22:00 EDT, Height, 73.48, kg, 10/30/23 9:08:00 EDT, Weight Dosing Start Date: 11/11/23 Status: Ordered erenumab-aooe 70 mg/mL subcutaneous solution 70 mg =, Subcutaneous, every month, # 1 mL, 6 Refill(s), Pharmacy: [facility], 163.83, cm, 11/19/23 7:58:00 EDT, Height, 74.66, kg, 11/19/23 8:10:00 EDT, Weight Dosing Start Date: 11/25/23 Status: Ordered gabapentin 100 mg oral capsule 100 mg = 1 cap, Oral, TID, # 180 cap, 6 Refill(s), Pharmacy: [facility] Start Date: 12/10/22 Status: Ordered hydrOXYzine [...] medication., # 16 tab, 0 Refill(s), Pharmacy: [facility], 163.83, cm, 11/19/23 7:58:00 EDT, Height, 75.8, kg, 11/27/23 14:18:00 EDT, Weight Dosing Start Date: 11/27/23 Status: Ordered Lexapro 20 mg oral tablet 20 mg = 1 tab, Oral, Daily, # 30 tab, 0 Refill(s) Start Date: 10/21/23 Status: Ordered Medrol 4 mg oral tablet 1 packets, Oral, Daily, as directed on package labeling, # 21 tab, 0 Refill(s), Pharmacy: [facility], 165.1, cm, 10/21/23 15:22:00 EDT, Height, [...] Weight Dosing Start Date: 11/27/23 Status: Ordered Protonix 40 mg oral delayed release tablet 40 mg = 1 tab, Oral, Daily, # 30 tab, 4 Refill(s), Pharmacy: [facility], 162.56, cm, 248:43:00 EDT, Height, 76.1, kg, 12/02/23 8:48:00 EDT, Weight Dosing Start Date: 12/02/23 Status: Ordered Relpax 20 mg oral tablet 20 mg = 1 tab, Oral, Daily, PRN as needed for migraine headache, may repeat dose once in 2 hours, #12 tab, 1 Refill(s), Pharmacy: [facility], 165.1, cm, 08/06/23 7:59:00 EDT, Height, 77.2, kg,08/06/23 8:07:00 EDT, Weight Dosing Start Date: 08/06/23 Status: Ordered Tezspire Pre-filled Pen 210 mg/1.91 mL subcutaneous solution 210 mg =, Subcutaneous, every 4 wk, # 1 EA, 5 Refill(s), Pharmacy: [facility], 162.56, cm, 12/02/23 8:43:00 EDT, [...] WHEEZING, # 18 g, 3 Refill(s), Pharmacy: [facility], 165.1, cm, 10/21/23 15:22:00 EDT, Height, [...] Access Member Role: Primary Care Physician Address: [address] Care Team Related Persons Name: JOAQUIM MCCOY Name: JENIFFER GALLEGOS Name: MERLE JARRETT Insurance Providers Guarantor name: KIANA Fam [facility] Information #: 1 Payer: MEDICAID [place] Member Number: NA Policy Number: NA
--- OUTSIDE RECORDS SUMMARY | 2024-03-18 15:47 | XMS_ITS | Continuity of Care Document ---
Author Organization [facility] Ambulatory Clinics Address [address] [place] [address] Care Team Providers Care Soap Chipper Name Role Phone JAXSON KEVEN LEMON Primary Care Physician [phone] Encounter [facility] NBR [id number] Date(s): 11/18/23 - 11/18/23 [facility] Ambulatory Clinics [address] [place], [place] [address] Encounter Diagnosis Chest pain(Discharge Diagnosis) - 11/18/23 Asthma(Discharge Diagnosis) - 11/18/23 Discharge Disposition: Home or Self Care Attending Physician: Patience Llamas MD Allergies, Adverse Reactions, Alerts Substance Criticality Severity Reaction Reaction Severity Status vancomycin Low criticality Mild Act jamshid formoterol Unable to assess criticality Unknown Unknown Active budesonide-formoterol Unable to assess criticality Unknown Unknown Active Dogs Unable to assess criticality Unknown Unknown Active Logan Low criticality Mild Acti ve Symbicort Low criticality Mild Acti ve formoterol-mometasone Unable to assess criticality Unknown Unknown Active Cats Unable to assess criticality Unknown Unknown Active Tape Unable to assess criticality Unknown Active Dust Unable to assess criticality Unknown Unknown Active Banana Low criticality Mild Acti ve Assessment and Plan Extracted from: Title:Pulm - Office Visit Note Author:Patience gimenez MD Date:11/18/23 Persistent Lft chest pain, a sthma, allergies, JAMIE.?? Recommended: ?? -Continue current regimen for now. -Check CT chest for rib fracture(s). -Consider Tezspire. -Get vaccination(s). -To see Neurology tomorrow. -RTC in 2 wks. ? I spent 45 minutes reviewing the patient's record, including previous CXR and CTPA; seeing the patient, and documenting in the record.?? All of her questions were answered. ? Future Appointments Future Scheduled Tests Radiology* CT Chest w/o Contrast 11/20/23 Functional Status 11/18/23 Other exposure to Infectious Disease Non e Medications albuterol 1.25 mg/3 mL (0.042%) inhalation [...] of sedation., # 30tab, 0 Refill(s), Pharmacy: [facility], 165.1, cm, 10/21/23 15:22:00 EDT, Height, 73.48, kg, 10/30/23 9:08:00 EDT, Weight Dosing Start Date: 11/11/23 Status: Ordered Deblitane 0.35 mg oral tablet 84 EA, 0 Refill(s), TAKE ONE TABLET BY MOUTH EVERY DAY, 0 Refill(s) Start Date: 09/28/23 Status: Ordered gabapentin 100 mg oral capsule 100 mg = 1 cap, Oral, TID, # 180 cap, 6 Refill(s), Pharmacy: [facility] Start Date: 12/10/22 Status: Ordered hydrOXYzine [...] # 21 tab, 0 Refill(s), Pharmacy: [facility], 165.1, cm, 10/21/23 15:22:00 EDT, Height, 73.48, kg, 10/30/23 9:08:00 EDT, Weight Dosing Start Date: 11/11/23 Stop Date: 11/17/23 Status: Ordered metoprolol succinate 50 mg oral tablet, extended release 50 mg = 1 tab, Oral, BID, # 180 tab, 1 Refill(s), Pharmacy: [facility], 165.1, cm, 05/07/23 15:22:00 EDT, Height, [...] headache, # 90 tab, 1 Refill(s), Pharmacy: [facility], 165.1, cm, 03/05/23 7:56:00 EST, Height, 76.11, kg, 03/05/23 8:01:00 EST, Weight Dosing Start Date: 03/05/23 Status: Ordered Relpax 20 mg oral tablet 20 mg = 1 tab, Oral, Daily, PRN as needed for migraine headache, may repeat dose once in 2 hours, #12 tab, 1 Refill(s), Pharmacy: [facility], 165.1, cm, 08/06/23 7:59:00 EDT, Height, [...] WHEEZING, # 18 g, 3 Refill(s), Pharmacy: [facility], 165.1, cm, 10/21/23 15:22:00 EDT, Height, [...] [36-38 Deg C ] 36.3 Deg C (11/18/23 9:05 AM) Apical Heart Rate [60-100 bpm] 102 bpm *HI* (11/18/23 9:05 AM) Blood Pressure [90-140/60-90 mmHg] 128/8 9mmHg (11/18/23 9:05 AM) Mean Arterial Pressure, Cuff [65-140 mmH g] 102 mmHg (11/18/23 9:05 AM) Weight 75.4 kg (11/18/23 9:05 AM) Weight Measured (lbs) 166.228 lb (11/18/23 9:05 AM) Weight Dosing 75.400 kg (11/18/23 9:05 AM) [place] Body Weight Calculated 54.7 kg (11/18/23 9:05 AM) Height 162.56 cm (11/18/23 9:05 AM) Height/Length Measured (inches) 64 inch (11/18/23 9:05 AM) BSA Measured 1.85 m2 (11/18/23 9:05 AM) Body Mass Index 28.53 kg/m2 (11/18/23 9:05 AM) Social History Social History Type Response Tobacco Never tobacco user, Tobacco use status unknown Tobacco Use:. Sex Sex Representation Female (finding) Hospital Discharge Instructions Follow Up Care 10/22/2023 08:10:31 With:Patience Llamas MD Address: [address] [place] [id number]- When:Within 2 Week(s) Physician Outpatient Note * Patience Llamas MD: PERFORM Event Display: Office Clinic Note Physician Authored Date: [id number] KIANA ISABEL I :1990 Age:33 years Sex:Female Visit Date:11/18/2023 Primary Care Physician: KEVEN PURI DNP History of Present Illness Here for follow-up for??refractory asthma, allergies, JAMIE. ?? Last/first seen on 10/21/2023. ?? 33 y/o, never smoker with history including migraine??HAs- on Relpax/Naproxen, HT- on Metoprolool/Diltiazem, allergic- eosinophilic asthma, allergies, JAMIE, POTS- on Neurontin, followed by [facility] Neurology/Jason. ?? Had been followed by [facility] Pulmonary/Lyssa Vargas, DO before her maternity leave->return to [facility]. ?? Was seen in [facility] ED on 10/06 with Left sided CP associated w/ productive cough, dxd w/ bronchitis +/- costochondritis, rxd w/ Percocet and Azithromycin- >Prednisone taper per [facility] Pulmonary PA. ?? Dxd??w/ asthma??in infancy, improved, recurred about 8 yr ago.?? No ED presentations or hospitalization.?? Has always??had Albuterol HFA, nebs prn. ?? Had blood allergy testing at [facility] before Dupixent- noted initial improvement, not sustained,??stopped in [place] per PA due to joint pain and worsening asthma, was planning to trial Nucala. ?? Previous pneumonias- last in Jan.?? Does not know if has childhood pertussis ?? Impression:?? 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 Recommended: ?? -Continue current regimen. -Check CBC w/ manual differential, IgE level- done 10/21/2023 CBCD MCV decd, eos 2 and nl; IgE nl. -PFTs- done 11/02/2023 PFTs nl spirometry, mildly decreased TLC per [facility] bi developer- 3.95L (74%)- nlper my review, BMI 27.33; nl diffusion capacity. -Request [facility] records. -Consider alternative biologic therapy-> ?Tezspire. -F/u w/ [facility] Sleep Medicine- has not seen yet, needs to make appt. -RTC in 1 mo. ?? Since then, ?? -Seen in [facility] on 10/29 w/ Left wrist pain after injury in setting of previous fx, wrist films??negative, recommended??Tylenol alternating with Motrin. -Called [facility]/Atiya Reno NP??11/09 about severe neck/back pain despite Tylenol, Icy-Hot, warm compresses; rxd w/ Medrol bin- completed, Cyclobenzaprine; later recommended f/u??w/ Neurology- to see tomorrow. ?? Today, stated breathing about same, not back to earlier baseline, Lft sided CP unchanged,??cough markedly improved sometimes w/ scant sputum. No fevers, chills or sweats.?? No hemoptysis?? No nasal congestion/PND.?? No acid reflux.?? Wrist pain resolved.?? Neurology to address migraine HAs and??intermittent numbness/tingling in hands/feet.?? No underlying diabetes.?? CP-started about 3d before 10/06 ED visit- recalled ++cough, no fall or other injury;??constant, increased w/ deep breath or cough-> pleuritic despite Percocet-> Tylenol, Motrin-> and Prednisone. ?? Exercise tolerance unchanged.?? ADLs ok.?? Working FT. ?? ACT score was 10, today 8; CAT score today 26. ?? Current regimen- Trelegy 200- rinses, Albuterol HFA prn- using at least 2x daily vs. nebs prn- using nightly, Singulair.?? Was on Dupixent until [place] as above.?? Was on Symbicort- had rash, Advair- not helpful, Breo- helpful/insurance stopped coverage, Flovent- not helpful, Spiriva- not helpful previously. Does not need refills today.?? Requested Trelegy 200 samples if available. ?? 10/19/2023 CXR 2v NAD. 09/14/2023 CTPA no PE, aortic aneurysm or dissection, mild biapical/RLL posterior scarring. 10/21/2023 CBCD MCV decd, eos 2 and nl; IgE nl. 11/02/2023 PFTs nl spirometry, mildly decreased TLC per [facility] bi developer- 3.95L (74%)- nl per my review, BMI 27.33; nl diffusion capacity. ?? Lives in two story house w/ BF and dtrs??x2, dogs; has has oil/radiant heat, window AC, fans, [id number] carpet, no heavy drapes. ?? 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 No occupational exposures. ?? LDCT screening- not candidate. ?? Vaccinations- had last??year's Influenza, pneumonia, Covid-19 x4 total vaccinations- intends to get this year's Influenza vaccination, considering newest Covid-19 vaccination. Review of Systems Constitutional:?No??fevers,?No??chills,?No??sweats Eye:?No??recent visual problems ENT:?No??ear pain,?No??nasal congestion,?No?? post nasal drip,??No??sore throat Respiratory:?Positive for??shortness of breath,?positive for??wheezing,??No??cough,??No??sputum,??No??hemoptysis Cardiovascular:?Positive for??Chest pain,?Positive for??palpitations,?Positive for??syncope Gastrointestinal:?No??abdominal pain,?Nonausea,?No??vomiting,?No??diarrhea,??No??hematemesis, hematochezia or melena Genitourinary:?No?dysuria,??No??hematuria Warner/Lymph:?No??bruising or bleeding??tendency,?No??swollen lymph glands Endocrine:?No??excessive thirst,??No??excessive hunger Musculoskeletal:??Positive for??back pain,??Positive for??neck pain,??Positive for??other joint pain,??Positive for??muscle pain,??No??decreased range of motion Integumentary:?No??rash,?No??pruritus,?No??abrasions??positive for??tattoos Neurologic:??present for??headache,??No??confusion,??No??weakness,??No??burning pain Psychiatric:?Positive for??anxiety,?No??depression Physical Exam Vitals & Measurements T:??36.3?C ??(Temporal Artery)?? HR:??102??(Apical)?? BP:??128/89?? SpO2:??97%?? HT:??162.56??cm?? WT:??75.4??kg?? BMI:??28.53?? BSA:??1.85?? General: Alert, conversant??appropriate,??well nourished,?No??acute distress HEENT: Normocephalic, PERRL, EOMI,?Normal??conjunctiva, ??No??scleral icterus, hearing??normal, tympanic membranes??visible,?No??sinus tenderness, nasal??normal,??moist??oral mucosa, oropharyngeal??no erythema,??no thrush,??no dentures Neck: Supple,??full range of motion,?No??JVD,??No??carotid bruits,??No??lymphadenopathy Lungs:??Effort??normal,??Clear to auscultation and percussion?? Respiration:??Non-Labored Heart:?Normal? rate,?Regular??rhythm,?No??murmur,?No??gallop,?Norubs Abdomen: Soft, non-tender, non-distended,?Normal? bowel sounds,?No??masses Musculoskeletal:?Lower extremity edema??No, clubbing??No??Normal? range of motion and strength Skin:??warm,??dry??and??intact??,?No??rashes,?No??lesions,??Nocyanosis Neurologic: Awake, alert and oriented X4, CN II-XII intact,??non-focal Psychiatric: Cooperative,??normal mood and affect ?? Clinic Assessment/Plan Persistent Lft chest pain, asthma, allergies, JAMIE.?? Recommended: ?? -Continue current regimen for now. -Check CT chest for rib fracture(s). -Consider Tezspire. -Get vaccination(s). -To see Neurology tomorrow. -RTC in 2 wks. ? I spent 45 minutes reviewing the patient's record, including previous CXR and CTPA; seeing the patient, and documenting in the record.?? All of her questions were answered. ? Follow Up Instructions With When Contact Information Patience Llamas MD In 2 weeks [address] [place] [address]- Additional Instructions: Problem List/Past Medical History Ongoing Anemia Anxiety Asthma Bilateral sacroiliitis Cervical spondylosis Insomnia Menstrual abnormality Migraine headache with aura Migraine with aura, not intractable, without status migrainosus Neck pain Neuroforaminal stenosis of cervical spine Paresthesias POTS (postural orthostatic tachycardia syndrome) Sleep apnea Historical No qualifying data Procedure/Surgical History ???Colonoscopy (2019)??? section (09/03/2015)???Extraction of wisdom tooth Medications What How Much When Why Instructions Unchanged albuterol (albuterol 1.25 mg/ 3 mL (0.042%) inhalation solution) 90 mL, 0 Refill(s), INHALE ONE VIAL VIA NEBULIZER FOUR TIMES A DAY NEEDED FOR SHORTNESS OF BREATH OR WHEEZING Contact prescribing physician if questions or concerns ?? Unchanged albuterol (Ventolin HFA 90 mcg/ inh inhalation aerosol) 2 Puffs Inhale (breathe in) Every 6 hours 18 g, INHALE 2 PUFFS BY MOUTH EVERY 6 HOURS NEEDED FOR SHORTNESS OF BREATH OR WHEEZING Contact prescribing physician if questions or concerns ?? Unchanged amitriptyline (amitriptyline 25 mg oral tablet) 90 EA, 0 Refill(s), TAKE ONE TABLET BY MOUTH AT BEDTIME Contact prescribing physician if questions or concerns ?? Unchanged cyclobenzaprine (cyclobenzaprine 5 mg oral tablet) 1 tab Oral (given by mouth) 3 times a day as needed for as needed for muscle spasm Use caution due to risk of sedation. Contact prescribing physician if questions or concerns ?? Unchanged dilTIAZem (Cartia XT 120 mg/ 24 hours oral capsule, extended release) 90 EA, 0 Refill(s), TAKE ONE CAPSULE BY MOUTH EVERY DAY Contact prescribing physician if questions or concerns ?? Unchanged eletriptan (Relpax 20 mg oral tablet) 1 tab Oral (given by mouth) Every day as needed for as needed for migraine headache Migraines may repeat dose once in 2 hours Contact prescribing physician if questions or concerns ?? Unchanged escitalopram (Lexapro 20 mg oral tablet) 1 tab Oral (given by mouth) Every day Contact prescribing physician if questions or concerns ?? Unchanged fluticasone/ umeclidinium/ vilanterol (Trelegy Ellipta 200 mcg-62.5 mcg-25 mcg/ inh inhalation powder) Contact prescribing physician if questions or concerns ?? Unchanged gabapentin (gabapentin 100 mg oral capsule) 1 Capsules Oral (given by mouth) 3 times a day Migraine with aura Tingling Contact prescribing physician if questions or concerns ?? Unchanged hydrOXYzine (hydrOXYzine hydrochloride 25 mg oral tablet) 1 tab Oral (given by mouth) Every day Contact prescribing physician if questions or concerns ?? Unchanged levonorgestrel (Mirena 52 mg intrauteral device) Contact prescribing physician if questions or concerns ?? Unchanged methylPREDNISolone (Medrol 4 mg oral tablet) 1 packets Oral (given by mouth) Every day Duration: 6 Days as directed on package labeling Contact prescribing physician if questions or concerns ?? Unchanged metoprolol (metoprolol succinate 50 mg oral tablet, extended release) 1 tab Oral (given by mouth) 2 times a day POTS (postural orthostatic tachycardia syndrome) Migraines Duration: 90 Days Contact prescribing physician if questions or concerns ?? Unchanged montelukast (montelukast 10 mg oral tablet) 1 tab Oral (given by mouth) Every day Contact prescribing physician if questions or concerns ?? Unchanged naproxen (naproxen 500 mg oral tablet) 1 tab Oral (given by mouth) As Directed as needed for as needed for pain Migraine with visual aura Migraine with aura POTS (postural orthostatic tachycardia syndrome) Take 1 tablet every 8 hours as needed for headache Contact prescribing physician if questions or concerns ?? Unchanged norethindrone (Deblitane 0.35 mg oral tablet) 84 EA, 0 Refill(s), TAKE ONE TABLET BY MOUTH EVERY DAY Contact prescribing physician if questions or concerns ?? Allergies Banana Logan Symbicort vancomycin Cats??(Unknown) Dogs??(Unknown) Dust??(Unknown) Tape budesonide-formoterol??(Unknown) formoterol??(Unknown) formoterol-mometasone??(Unknown) Social History Alcohol Never Electronic Cigarette/Vaping Electronic Cigarette Use: Never, Unknown/not obtained. Tobacco Never tobacco user, Tobacco use status unknown Tobacco Use:. Family History Hypertension: Father. Electronically Signed on 11/18/2023 10:25 EDT Patience Llamas MD Patient Care team information Care Team Personnel Name: KEVEN PURI DNP Position: No Access Member Role: Primary Care Physician Address: [place] [address]- Care Team Related Persons Name: JOAQUIM MCCOY Name: JENIFFER GALLEGOS Name: MERLE JARRETT Insurance Providers Guarantor name: KIANA JUNIORFIELD Health Plan Information #: 1 Payer: [place] Member Number: [id number] Policy Number: NA Health Plan Information #: 2 Payer: [place] Member Number: [id number] Policy Number: NA
--- OUTSIDE RECORDS SUMMARY | 2024-03-18 15:47 | XMS_ITS | Continuity of Care Document ---
Author Organization [facility] Ambulatory Clinics Address [address] [place] [address] Care Team Providers Care Author Agent Name Role Phone JAXSON KEVEN LEMON Primary Care Physician Encounter [facility] NBR [id number] Date(s): 11/25/23 - 11/25/23 [facility] Ambulatory Clinics [address] [place], [place] [address] Discharge Disposition: Home Allergies, Adverse Reactions, [...] Active Banana Low criticality Mild Acti ve Blaine Low criticality Mild Acti ve Dust Unable [...] of sedation., # 30tab, 0 Refill(s), Pharmacy: [facility], 165.1, cm, 10/21/23 15:22:00 EDT, Height, 73.48, kg, 10/30/23 9:08:00 EDT, Weight Dosing Start Date: 11/11/23 Status: Ordered Deblitane 0.35 mg oral tablet 84 EA, 0 Refill(s), TAKE ONE TABLET BY MOUTH EVERY DAY, 0 Refill(s) Start Date: 09/28/23 Status: Ordered erenumab-aooe 70 mg/mL subcutaneous solution 70 mg =, Subcutaneous, every month, # 1 mL, 6 Refill(s), Pharmacy: [facility], 163.83, cm, 11/19/23 7:58:00 EDT, Height, 74.66, kg, 11/19/23 8:10:00 EDT, Weight Dosing Start Date: 11/25/23 Status: Ordered gabapentin 100 mg oral capsule 100 mg = 1 cap, Oral, TID, # 180 cap, 6 Refill(s), Pharmacy: [facility] Start Date: 12/10/22 Status: Ordered hydrOXYzine [...] labeling, # 21 tab, 0 Refill(s), Pharmacy: [facility], 165.1, cm, 10/21/23 15:22:00 EDT, Height, [...] WHEEZING, # 18 g, 3 Refill(s), Pharmacy: [facility], 165.1, cm, 10/21/23 15:22:00 EDT, [...] Access Member Role: Primary Care Physician Address: [address] Care Team Related Persons Name: JOAQUIM MCCOY Name: JENIFFER GALLEGOS Name: MERLE JARRETT Insurance Providers Guarantor name: KIANA Fam [facility] Plan Information #: 1 Payer: MEDICAID [place] Member Number: NA Policy Number: NA
--- OUTSIDE RECORDS SUMMARY | 2024-03-18 15:47 | XMS_ITS | Continuity of Care Document ---
Author Organization [facility] Ambulatory Clinics Address [address] [place] [address] Care Team Providers Care Customs Compliance Director Name Role Phone KEVEN PURI DNP Primary Care Physician [phone] Encounter [facility] NBR [id number] Date(s): 11/19/23 - 11/19/23 [facility] Ambulatory Clinics [address], [place] [address] Encounter Diagnosis Migraine with aura(Discharge Diagnosis) - 11/19/23 Discharge Disposition: Home or Self Care Attending Physician: Mario Gomez MD Referring Physician: KEVEN PURI DNP Allergies, Adverse Reactions, Alerts Substance Criticality Severity [...] Active Banana Low criticality Mild Acti ve [place] Low criticality Mild Acti ve Dust Unable [...] of sedation., # 30tab, 0 Refill(s), Pharmacy: [facility], 165.1, cm, 10/21/23 15:22:00 EDT, Height, 73.48, kg, 10/30/23 9:08:00 EDT, Weight Dosing Start Date: 11/11/23 Status: Ordered Deblitane 0.35 mg oral tablet 84 EA, 0 Refill(s), TAKE ONE TABLET BY MOUTH EVERY DAY, 0 Refill(s) Start Date: 09/28/23 Status: Ordered gabapentin 100 mg oral capsule 100 mg = 1 cap, Oral, TID, # 180 cap, 6 Refill(s), Pharmacy: [facility] Start Date: 12/10/22 Status: Ordered hydrOXYzine [...] labeling, # 21 tab, 0 Refill(s), Pharmacy: [facility], 165.1, cm, 10/21/23 15:22:00 EDT, Height, [...] # 18 g, 3 Refill(s), Pharmacy: [facility], 165.1, cm, 10/21/23 15:22:00 EDT, Height, [...] Range]: 1 Apical Heart Rate [60-100 bpm] 110 bpm *HI* (11/19/23 7:58 AM) Blood Pressure [90-120/60-80 mmHg] 120/7 8mmHg (11/19/23 7:58 AM) Mean Arterial Pressure, Cuff [65-140 mmH g] 92 mmHg (11/19/23 7:58 AM) Weight 74.66 kg (11/19/23 7:58 AM) Weight Measured (lbs) 164.597 lb (11/19/23 7:58 AM) Weight Dosing 74.660 kg (11/19/23 7:58 AM) [place] Body Weight Calculated 55.85 kg (11/19/23 7:58 AM) Height 163.83 cm (11/19/23 7:58 AM) Height/Length Measured (inches) 64.5 inc h (11/19/23 7:58 AM) BSA Measured 1.84 m2 (11/19/23 7:58 AM) Body Mass Index 27.82 kg/m2 (11/19/23 7:58 AM) Social History Social History Type Response Tobacco Never tobacco user, Tobacco use status unknown Tobacco Use:. Sex Sex Representation Female (finding) Physician Outpatient Note * Mario Gomez MD: MODIFY, MODIFY, MODIFY, PERFORM Event Display: Office Clinic Note Physician Authored Date: [id number] MIYA ISABEL I :1990 Age:33 years Sex:Female Visit Date:11/19/2023 Primary Care Physician: KEVEN PURI DNP History of Present Illness Interval History: ?? Miya is alone in this visit. ?? We discussed about headaches again: ?? Current frequency:??Once??or twice /week?Duration:??They??can last up to two days. Eletriptan??aborts migraine attacks within 1 hour. ?Intensity:??It could be from 6 up to 10/02. ? Tingling still happening in her body but is not severe. She prefers to take gabapentin 300 mg only at night. Lightheadedness has improved.? Physical Exam ?? General:??well nourished, in no [...] able to tip-toe, heel-walk.??Pull test is negative ? Assessment/Plan ?? 1) Migraine with sensory and visual aura 2) POTS 3) Medication overuse headache ?? Plan: ?? Abortive management: ?? Continue eletriptan 20 mg as needed for headache. May take another tablet after 2 hours. I discussed with Miya that risk of serotonin syndrome was a previous concern while also taking SSRIs ( e.g. escitalopram) but recent data has demonstrated that risk is very low and she should not be discouraged to take it if has been helpful. Continue??naproxen 500 mg every 8 hours as needed for headache, may take in combination with triptan. ?? Preventive management: ?? Continue metoprolol 50 mg twice a day. This is has been helpful for POTS but??helped somewhat??as??migraine prophylaxis. May consider stop diltiazem. She prefers to continue gabapentin 300 mg at bedtime as daily dosing makes her very tired. ?? She has failed already two first line oral therapies. Then, I am prescribing erenumab (Aimovig) 70 mg subcutaneous injection monthly.? Awaiting repeat??sleep study. Connect with therapist for CBT for migraine. ?? Recommend physical activity and exercise. ?? Return to clinic in??3 months. ?? Problem List/Past Medical History Ongoing Anemia [...] inhalation solution amitriptyline 25 mg oral tablet Cartia XT 120 mg/24 hours oral capsule, extended release cyclobenzaprine 5 mg oral tablet, 5 mg= 1 tab, Oral, TID, PRN Deblitane 0.35 mg oral tablet gabapentin 100 mg oral capsule, 100 mg= 1 cap, Oral, TID, 6 refills hydrOXYzine hydrochloride 25 mg oral tablet, 25 mg= 1 tab, Oral, Daily Lexapro 20 mg oral tablet, 20 mg= [...] every 6 hr, 3 refills Allergies Banana Barron Symbicort vancomycin Cats??(Unknown) Dogs??(Unknown) Dust??(Unknown) Tape budesonide-formoterol??(Unknown) formoterol??(Unknown) formoterol-mometasone??(Unknown) Social History Alcohol Never Electronic Cigarette/Vaping Electronic Cigarette Use: Never, Unknown/not obtained. Tobacco Never tobacco user, Tobacco use status unknown Tobacco Use:. Family History Hypertension: Father. Attending Attestation Mario Bragg MD [facility]? I personally spent a total of 40 minutes??providing direct??care for this patient, reviewing records and providing education/counseling on migraine??on the date of the encounter.?? Electronically Signed on 11/19/2023 08:51 EDT Mario Gomez MD Outpatient Summary note * Carmel Fishman: PERFORM Event Display: Ambulatory Patient Summary Authored Date: [id number] MIYA ISABEL I :1990 Age:33 years Sex:Female Visit Date:11/19/2023 Primary Care Physician: KEVEN PURI DNP Ambulatory Visit Instructions We would like to thank you for allowing us to assist you with your healthcare needs. The following includes patient education materials and information regarding your injury/illness. Your Next Steps Instructions From Your Care Team It was a pleasure seeing you today, Miya. Here are my recommendations:? I am prescribing erenumab (Aimovig) 70 mg subcutaneous injection monthly. Discuss with your PCP discontinuing diltiazem.?? Do not be afraid of using eletriptan for migraine attacks.?? Continue same dose of other medications.?? Return to clinic in 3 months.? Please call me if you have any questions or concerns.? Scheduled Future Appointments Thursday 8:00 AM EST ?? With: Kelsie Orozco DO Where: [facility] Status: Confirmed 2024 11:30 AM EST ?? With: Mario Gomez MD Where: [facility] Neurology Status: Confirmed Medications What How Much When [...] TABLET BY MOUTH AT BEDTIME ?? Unchanged cyclobenzaprine (cyclobenzaprine 5 mg oral tablet) 1 tab Oral (given by mouth) 3 times a day as needed for as needed for muscle spasm Use caution due to risk of sedation. ?? Unchanged dilTIAZem (Cartia XT 120 mg/ 24 hours oral capsule, extended release) 90 EA, 0 Refill(s), TAKE ONE CAPSULE BY MOUTH EVERY DAY ?? Unchanged eletriptan (Relpax 20 mg oral tablet) 1 tab Oral (given by mouth) Every day as needed for as needed for migraine headache Migraines may repeat dose once in 2 hours ?? Unchanged escitalopram (Lexapro 20 mg oral tablet) 1 tab Oral (given by mouth) Every day Unchanged fluticasone/ umeclidinium/ vilanterol (Trelegy Ellipta 200 mcg-62.5 mcg-25 mcg/ inh inhalation powder) Unchanged gabapentin (gabapentin 100 mg oral capsule) 1 Capsules Oral (given by mouth) 3 times a day Migraine with aura Tingling Unchanged hydrOXYzine (hydrOXYzine hydrochloride 25 mg oral tablet) 1 tab Oral (given by mouth) Every day Unchanged levonorgestrel (Mirena 52 mg intrauteral device) Unchanged methylPREDNISolone (Medrol 4 mg oral tablet) 1 packets Oral (given by mouth) Every day Duration: 6 Days as directed on package labeling ?? Unchanged metoprolol (metoprolol succinate 50 mg [...] hours as needed for headache ?? Unchanged norethindrone (Deblitane 0.35 mg oral tablet) 84 EA, 0 Refill(s), TAKE ONE TABLET BY MOUTH EVERY DAY ?? Your Summary Your Diagnosis Migraine with aura Problems Ongoing - Any problem that you are currently receiving treatment for. Anemia Anxiety Asthma Bilateral sacroiliitis Cervical spondylosis Insomnia Menstrual abnormality Migraine headache with aura Migraine with aura, not intractable, without status migrainosus Neck pain Neuroforaminal stenosis of cervical spine Paresthesias POTS (postural orthostatic tachycardia syndrome) Sleep apnea Your Care Team Attending Physician - Mario Gomez MD Primary Care Physician - KEVEN PURI DNP Referring Physician - JAXSON LEMON, KEVEN Discharge Vitals Heart Rate??(Apical) 110 Blood Pressure?? 120/78?? SpO2?? 98% Height?? 64.50 in (163.83 cm) Weight?? 164.63 lb (74.66 kg) BMI?? 27.82 Allergies Banana Barron Symbicort vancomycin Cats??(Unknown) Dogs??(Unknown) Dust??(Unknown) Tape budesonide-formoterol??(Unknown) formoterol??(Unknown) formoterol-mometasone??(Unknown) Electronically Signed on: 11/19/2023 08:38 EDTSigned by:BYRON Patient Care team information Care Team Personnel Name: KEVEN PURI DNP Position: No Access Member Role: Primary Care Physician Address: [place] [address]- Care Team Related Persons Name: JOAQUIM MCCOY Name: JENIFFER GALLEGOS Name: MERLE JARRETT Insurance Providers Guarantor name: MIYA Sarwat JUNIORMAAME Health Plan Information #: 1 Payer: [place] Member Number: [id number] Policy Number: NA Health Plan Information #: 2 Payer: [place] Member Number: [id number] Policy Number: NA
--- OUTSIDE RECORDS SUMMARY | 2024-03-18 15:48 | XMS_ITS | Continuity of Care Document ---
Author Organization [facility] Ambulatory Clinics Address [address] [place] [address] Care Team Providers Care Pharmacy Teacher Name Role Phone JAXSON KEVEN LEMON Primary Care Physician Encounter [facility] NBR [id number] Date(s): 12/15/23 - 12/15/23 [facility] Ambulatory Clinics [address], [place] [address] Discharge Disposition: Home Allergies, Adverse Reactions, Alerts Substance Criticality Severity Reaction Reaction Severity Status vancomycin Low criticality Mild Act jamshid formoterol Unable to assess criticality Unknown Unknown Active budesonide-formoterol Unable to assess criticality Unknown Unknown Active [place] Low criticality Mild Acti ve Symbicort Low [...] sedation., # 30 tab, 1 Refill(s), Pharmacy: [facility], 162.56, cm, 12/02/23 8:43:00 EDT, Height, 76.1, kg, 12/02/23 8:48:00 EDT, Weight Dosing Start Date: 12/16/23 Status: Ordered cyclobenzaprine 5 mg oral tablet 5 mg = 1 tab, Oral, TID, PRN as needed for muscle spasm, Use caution due to risk of sedation., # 30tab, 0 Refill(s), Pharmacy: [facility], 165.1, cm, 10/21/23 15:22:00 EDT, Height, 73.48, kg, 10/30/23 9:08:00 EDT, Weight Dosing Start Date: 11/11/23 Status: Ordered erenumab-aooe 70 mg/mL subcutaneous solution 70 mg =, Subcutaneous, every month, # 1 mL, 6 Refill(s), Pharmacy: [facility], 163.83, cm, 11/19/23 7:58:00 EDT, Height, 74.66, kg, 11/19/23 8:10:00 EDT, Weight Dosing Start Date: 11/25/23 Status: Ordered gabapentin 100 mg oral capsule 100 mg = 1 cap, Oral, TID, # 180 cap, 6 Refill(s), Pharmacy: [facility] Start Date: 12/10/22 Status: Ordered HYDROcodone-acetaminophen 5 mg-325 mg oral tablet 1 tab, Oral, TID, PRN as needed for pain, May increase to 2 tab TID PRN but use caution due to increased risk of sedation., # 60 tab, 0 Refill(s), Pharmacy: [facility], 162.56, cm, 12/02/23 8:43:00 EDT, Height, [...] # 21 tab, 0 Refill(s), Pharmacy: [facility], 162.56, cm, 12/02/23 8:43:00 EDT, Height, 76.1, kg, 12/02/23 8:48:00 EDT, Weight Dosing Start Date: 12/16/23 Status: Ordered Medrol 4 mg oral tablet 1 packets, Oral, Daily, as directed on package labeling, # 21 tab, 0 Refill(s), Pharmacy: [facility], 165.1, cm, 10/21/23 15:22:00 EDT, Height, 73.48, kg, 10/30/23 9:08:00 EDT, Weight Dosing Start Date: 11/11/23 Stop Date: 11/17/23 Status: Ordered metoprolol succinate 50 mg oral tablet, extended release 50 mg = 1 tab, Oral, BID, # 180 tab, 1 Refill(s), Pharmacy: [facility], 165.1, cm, 05/07/23 15:22:00 EDT, Height, [...] Daily, # 30 tab, 4 Refill(s), Pharmacy: [facility], 162.56, cm, 248:43:00 EDT, Height, 76.1, kg, 12/02/23 8:48:00 EDT, Weight Dosing Start Date: 12/02/23 Status: Ordered Relpax 20 mg oral tablet 20 mg = 1 tab, Oral, Daily, PRN as needed for migraine headache, may repeat dose once in 2 hours, #12 tab, 1 Refill(s), Pharmacy: [facility], 165.1, cm, 08/06/23 7:59:00 EDT, Height, 77.2, kg,08/06/23 8:07:00 EDT, Weight Dosing Start Date: 08/06/23 Status: Ordered Tezspire Pre-filled Pen 210 mg/1.91 mL subcutaneous solution 210 mg =, Subcutaneous, every 4 wk, # 1 EA, 5 Refill(s), Pharmacy: [facility], 162.56, cm, 12/02/23 8:43:00 [...] WHEEZING, # 18 g, 3 Refill(s), Pharmacy: [facility], 165.1, cm, 10/21/23 15:22:00 EDT, Height, [...] Access Member Role: Primary Care Physician Address: [address] Care Team Related Persons Name: JOAQUIM MCCOY Name: JENIFFER GALLEGOS Name: MERLE JARRETT Insurance Providers Guarantor name: KIANA Fam [facility] Plan Information #: 1 Payer: [place]ID [place] Member Number: NA Policy Number: NA
--- OUTSIDE RECORDS SUMMARY | 2024-03-18 15:48 | XMS_ITS | Continuity of Care Document ---
Author Organization [facility] Address [address] [place] [address] Support Name Relationship Address Phone MERLE JARRETT Personal Relationship Unknown Un available NANDO GALLEGOSIAN Personal Relationship Unknown Richelle vailable MCCOY JOAQUIM KOBY Personal Relationship Unknown Unavailable Encounter [facility] NBR [id number] Date(s): 10/30/23 - 10/30/[address] [address] Discharge Disposition: Home or Self Care Attending Physician: Alva Henry PA-C Admitting Physician: Alva Henry PA-C Allergies, Adverse Reactions, Alerts Substance Criticality Severity [...] Active Banana Low criticality Mild Acti ve [place] Low criticality Mild Acti ve Dust Unable [...] TID, # 180 cap, 6 Refill(s), Pharmacy: [facility] Start Date: 12/10/22 Status: Ordered hydrOXYzine [...] BID, # 180 tab, 1 Refill(s), Pharmacy: [facility], 165.1, cm, 05/07/23 15:22:00 EDT, Height, [...] headache, # 90 tab, 1 Refill(s), Pharmacy: [facility], 165.1, cm, 03/05/23 7:56:00 EST, Height, [...] Exam Date Time Procedure Performing Provider Status 10/30/23 9:48 AM XR Wrist Complete 3+ Views Left Milana Ríos; Maura (Verified) Notes: (XR Wrist Complete 3+ Views Left) Reason For Exam: left wrist injury, pain along ulnar, previous ulnar styloid fracture XR Wrist Complete 3+ Views Left EXAM DESCRIPTION: XR Wrist Complete 3+ Views Left 10/30/2023 INDICATION: LEFT WRIST INJURY, PAIN ALONG ULNAR, PREVIOUS ULNAR STYLOID FRACTURE COMPARISON: None FINDINGS: No acute fracture, dislocation or bone destructive process. Joint spaces are maintained. No radiographic foreign bodies are seen. IMPRESSION: 1. No acute fracture, dislocation or bone destructive process. JOB #: [id number] Final Signed by: Amor Trotter MD Signed (Electronic Signature): 10/30/2023 10:08 am Social History Social History Type Response Tobacco Never tobacco user, Tobacco use status unknown Tobacco Use:. Sex Sex Representation Female (finding) Patient Care team information Care Team Related Persons Name: JOAQUIM MCCOY Name: JENIFFER GALLEGOS Name: MERLE JARRETT Insurance Providers Guarantor name: KIANA Fam [facility] Plan Information #: 1 Payer: [place] Member Number: [id number] Policy Number: NA Health Plan Information #: 2 Payer: [place] Member Number: [id number] Policy Number: NA
--- OUTSIDE RECORDS SUMMARY | 2024-03-18 15:48 | XMS_ITS | Continuity of Care Document ---
Author Organization [facility] Ambulatory Clinics Address [address] [place] [address] Care Team Providers Care Distributed Generation Project Manager Name Role Phone JAXSON KEVEN LEMON Primary Care Physician Encounter [facility] NBR [id number] Date(s): 11/26/23 - 11/26/23 [facility] Ambulatory Clinics [address] [place], [place] [address] Discharge Disposition: Home Allergies, Adverse Reactions, Alerts Substance Criticality Severity Reaction Reaction Severity Status vancomycin Low criticality Mild Act jamshid formoterol Unable to assess criticality Unknown Unknown Active budesonide-formoterol Unable to assess criticality Unknown Unknown Active Symbicort Low criticality Mild Acti ve formoterol-mometasone Unable to assess criticality Unknown Unknown Active Banana Low criticality Mild Acti ve [place] Low criticality Mild Acti ve Dust Unable [...] of sedation., # 30tab, 0 Refill(s), Pharmacy: [facility], 165.1, cm, 10/21/23 15:22:00 EDT, Height, 73.48, kg, 10/30/23 9:08:00 EDT, Weight Dosing Start Date: 11/11/23 Status: Ordered Deblitane 0.35 mg oral tablet 84 EA, 0 Refill(s), TAKE ONE TABLET BY MOUTH EVERY DAY, 0 Refill(s) Start Date: 09/28/23 Status: Ordered erenumab-aooe 70 mg/mL subcutaneous solution 70 mg =, Subcutaneous, every month, # 1 mL, 6 Refill(s), Pharmacy: [facility], 163.83, cm, 11/19/23 7:58:00 EDT, Height, 74.66, kg, 11/19/23 8:10:00 EDT, Weight Dosing Start Date: 11/25/23 Status: Ordered gabapentin 100 mg oral capsule 100 mg = 1 cap, Oral, TID, # 180 cap, 6 Refill(s), Pharmacy: [facility] Start Date: 12/10/22 Status: Ordered hydrOXYzine [...] labeling, # 21 tab, 0 Refill(s), Pharmacy: [facility], 165.1, cm, 10/21/23 15:22:00 EDT, Height, [...] Access Member Role: Primary Care Physician Address: [address] Care Team Related Persons Name: JOAQUIM MCCOY Name: JENIFFER GALLEGOS Name: MERLE JARRETT Insurance Providers Guarantor name: KIANA Fam [facility] Plan Information #: 1 Payer: MEDICAID [place] Member Number: NA Policy Number: NA
--- OUTSIDE RECORDS SUMMARY | 2024-03-18 15:48 | XMS_ITS | Continuity of Care Document ---
Author Organization [facility] Ambulatory Clinics Address [address] [place] [address] Care Team Providers Care Chef Name Role Phone KEVEN PURI DNP Primary Care Physician [phone] Encounter [facility] NBR [id number] Date(s): 03/16/24 - 03/16/24 [facility] Ambulatory Clinics [address] [place], [place] [address] Encounter Diagnosis POTS (postural orthostatic tachycardia syndrome)(Discharge Diagnosis) - 03/16/24 Migraine(Discharge Diagnosis) - 03/16/24 Discharge Disposition: Home or Self Care Attending Physician: Mario Gomez MD Encounter Type: Clinic Allergies, Adverse Reactions, Alerts Substance Criticality Severity Reaction Reaction Severity Status vancomycin High criticality Moderate Swelling of oral cavity structure Fever Active budesonide-formote rol Low criticality Mild Rash Hives Active formoterol-mometas one Low criticality Mild Hives Rash Active Cats Low criticality Mild Rash Acti ve Dogs Low criticality Mild Rash Acti ve Tape Low criticality Mild Skin irritation Active Banana Low criticality Mild stomsch upset Active Kimball Low criticality Mild Stomach upset Active Dust Low criticality Mild Rash Acti ve Assessment and Plan Future Appointments Immunizations Given and Recorded Vaccine Date Status Refusal Reason influenza virus vaccine, inactivated 12/16/23 Give n Problem List Condition Confirmation Course Effective Dates [...] Range]: 1 Apical Heart Rate [60-100 bpm] 86 bpm (03/16/24 10:52 AM) Blood Pressure [90-120/60-80 mmHg] 115/7 6mmHg (03/16/24 10:52 AM) Mean Arterial Pressure, Cuff [65-140 mmH g] 89 mmHg (03/16/24 10:52 AM) Weight 80.10 kg (03/16/24 10:52 AM) Weight Measured (lbs) 176.59 lb (03/16/24 10:52 AM) Weight Dosing 80.100 kg (03/16/24 10:52 AM) [place] Body Weight Calculated 55.85 kg (03/16/24 10:52 AM) Height 163.83 cm (03/16/24 10:52 AM) Height/Length Measured (inches) 64.5 inc h (03/16/24 10:52 AM) BSA Measured 1.91 m2 (03/16/24 10:52 AM) Body Mass Index 29.84 kg/m2 (03/16/24 10:52 AM) Social History Social History Type Response [...] MRI Safety Implantable Status Assigning Authority Unknown [id number] Unknown Unknown 08/15/25 Unknown Unknown Active Unknown Unknown Unknown [id number] Unknown 05/05/28 Unknown Unknown Active Unknown Unknown Unknown [id number] Unknown 12/25/27 Unknown Unknown Active Unknown Unknown Unknown M1L2 024 Unknown Unknown Unknown Unknown Active Unknown Unknown Unknown M1L2 4 Unknown Unknown Unknown Unknown Active Unknown Physician Outpatient Note * Mario Gomez MD: PERFORM Event Display: Office Clinic Note Physician Authored Date: [id number] MIYA ISABEL I :1990 Age:34 years Sex:Female Visit Date:03/16/2024 Primary Care Physician: JAXSON LEMON, KEVEN History of Present Illness ?? Interval History: ?? Miya is alone in this visit. ?? She underwent ACDF C4-5 and C5-6 in Nov Tingling improved and discontinue gabapentin Mentioned that lighthededness worsened after procedure, symptoms got worse about 2-3 weeks after cervical fusion. She described feeling very lightheaded and with blurred vision usually when she gets up, however is very sporadic and can happen when she is stiing. Events last few minutes up to 30 min. She feels nauseated but no vomiting. Sometimes develops headaches.?? Headaches in general have been well controlled, she rarely uses eletriptan. She takes metoprolol once a day for POTS, twice a day dose made her very tired. ? Physical Exam ?? General:??well nourished, in no [...] ?? 1) Migraine with sensory and visual aura, improved 2) POTS, exacerbated after cervical fusion 3) Medication overuse headache ?? Plan: ?? I discussed with her to try compression stockingS to see if POTS symptoms improve. If symptoms persist will increase metoprolol to 50 mg twice a day. ?? Abortive management: ?? Continue eletriptan 20 mg as needed for headache. May take another tablet after 2 hours. I Continue??naproxen 500 mg every 8 hours as needed for headache, may take in combination with triptan. ?? Preventive management: ?? Continue metoprolol 50 mg??daily This is has been helpful for POTS but??helped somewhat??as??migraine prophylaxis. May consider stop diltiazem. ?? Erenumab (Aimovig) 70 mg subcutaneous injection monthly.? Awaiting repeat??sleep study. Connect with therapist for CBT for migraine. ?? Recommend physical activity and exercise. ?? Return to clinic in??3 months. ?? Physical Exam Vitals & Measurements HR:??86??(Apical)?? BP:??115/76?? SpO2:??99%?? HT:??163.83??cm?? WT:??80.10??kg?? BMI:??29.84?? BSA:??1.91?? Orthostatic Vitals: Pulse Supine: 84 bpm (03/16/24 12:21:00) Pulse Sittin bpm (03/16/24 12:21:00) Pulse Standin bpm (03/16/24 12:21:00) Systolic Blood Pressure Supine: 101 mmHg (03/16/24 12:21:00) Diastolic Blood Pressure Supine: 72 mmHg (03/16/24 12:21:00) Systolic Blood Pressure Sittin mmHg (03/16/24 12:21:00) Diastolic Blood Pressure Sittin mmHg (03/16/24 12:21:00) Systolic Blood Pressure Standin mmHg (03/16/24 12:21:00) Diastolic Blood Pressure Standin mmHg (03/16/24 12:21:00) Problem List/Past Medical History Ongoing Anemia Anxiety Asthma Bilateral sacroiliitis Pedrzaa sign present Hyperreflexia Insomnia Lower extremity weakness [...] Medications albuterol 1.25 mg/3 mL (0.042%) inhalation solution, 90 mL, 0 Refill(s), INHALE ONE VIAL VIA NEBULIZER FOUR TIMES A DAY NEEDED FOR SHORTNESS OF BREATH OR WHEEZING cyclobenzaprine 5 mg oral tablet, 5 mg= 1 tab, Oral, TID, PRN, 1 refills, May increase to 2 tab TIDPRN. Use caution due to risk of sedation. erenumab-aooe 70 mg/mL subcutaneous solution, 70 mg, [...] mg= 1 tab, Oral, Daily, PRN, 1 refills, may repeat dose once in 2 hours Tezspire Pre-filled Pen 210 mg/1.91 mL subcutaneous solution, 210 mg, Subcutaneous, every 4 wk, 5 refills Trelegy Ellipta 200 mcg-62.5 mcg-25 mcg/inh inhalation powder, 1 inh, Inhale, Daily, 3 refills Ventolin HFA 90 mcg/inh inhalation aerosol, 2 puffs, Inhale, every 6 hr, 3 refills, 18 g, INHALE 2 PUFFS BY MOUTH EVERY 6 HOURS NEEDED FOR SHORTNESS OF BREATH OR WHEEZING Allergies vancomycin??(Swelling of oral cavity structure, Fever) Banana??(stomsch upset) Cats??(Rash) Dogs??(Rash) Dust??(Rash) Kimball??(Stomach upset) Tape??(Skin irritation) budesonide-formoterol??(Rash, Hives) formoterol-mometasone??(Hives, Rash) Social History Alcohol Never Electronic Cigarette/Vaping Electronic Cigarette Use: Never, Unknown/not obtained. Substance Use Never Tobacco Never tobacco user, Tobacco use status unknown Tobacco Use:. Family History Hypertension: Father. Immunizations Vaccine Date Status influenza virus vaccine, inactivated 12/16/2023 Given Attending Attestation Mario Bragg MD [facility]? I personally spent a total of 32 minutes??providing direct??care for this patient, reviewing records and providing education on POTS and migraine??on the date of the encounter.?? Electronically Signed on 03/16/2024 12:49 EST Mario Gomez MD Patient Care team information Care Team Personnel Name: KEVEN PURI DNP Position: No Access Member Role: Primary Care Physician Address: [address] Telecom: Care Team Related Persons Name: JOAQUIM MCCOY Name: JENIFFER GALLEGOS Name: MERLE JARRETT Insurance Providers Guarantor name: MIYA Fam [facility] Health Plan Information #: 1 Payer: [place] Member Number: [id number] Policy Number: NA Group Number: NA Health Plan Information #: 2 Payer: [place] Member Number: [id number] Policy Number: NA Group Number: NA
--- OUTSIDE RECORDS SUMMARY | 2024-03-18 15:48 | XMS_ITS | Continuity of Care Document ---
Author Organization [facility] Ambulatory Clinics Address [address] [place] [address] Care Team Providers Care Rn Home Health Name Role Phone JAXSON KEVEN LEMON Primary Care Physician Encounter [facility] NBR [id number] Date(s): 11/10/23 - 11/10/23 [facility] Ambulatory Clinics [address] [place], [place] [address] Discharge Disposition: Home Allergies, Adverse Reactions, Alerts Substance Criticality Severity Reaction Reaction Severity Status vancomycin Low criticality Mild Act jamshid formoterol Unable to assess criticality Unknown Unknown Active [place] Low criticality Mild Acti ve budesonide-formoterol Unable [...] of sedation., # 30tab, 0 Refill(s), Pharmacy: [facility], 165.1, cm, 10/21/23 15:22:00 EDT, Height, 73.48, kg, 10/30/23 9:08:00 EDT, Weight Dosing Start Date: 11/11/23 Status: Ordered Deblitane 0.35 mg oral tablet 84 EA, 0 Refill(s), TAKE ONE TABLET BY MOUTH EVERY DAY, 0 Refill(s) Start Date: 09/28/23 Status: Ordered gabapentin 100 mg oral capsule 100 mg = 1 cap, Oral, TID, # 180 cap, 6 Refill(s), Pharmacy: [facility] Start Date: 12/10/22 Status: Ordered hydrOXYzine [...] labeling, # 21 tab, 0 Refill(s), Pharmacy: [facility], 165.1, cm, 10/21/23 15:22:00 EDT, Height, 73.48, kg, 10/30/23 9:08:00 EDT, Weight Dosing Start Date: 11/11/23 Stop Date: 11/17/23 Status: Ordered metoprolol succinate 50 mg oral tablet, extended release 50 mg = 1 tab, Oral, BID, # 180 tab, 1 Refill(s), Pharmacy: [facility], 165.1, cm, 05/07/23 15:22:00 EDT, Height, [...] headache, # 90 tab, 1 Refill(s), Pharmacy: [facility], 165.1, cm, 03/05/23 7:56:00 EST, Height, 76.11, kg, 03/05/23 8:01:00 EST, Weight Dosing Start Date: 03/05/23 Status: Ordered Relpax 20 mg oral tablet 20 mg = 1 tab, Oral, Daily, PRN as needed for migraine headache, may repeat dose once in 2 hours, #12 tab, 1 Refill(s), Pharmacy: [facility], 165.1, cm, 08/06/23 7:59:00 EDT, Height, [...] WHEEZING, # 18 g, 3 Refill(s), Pharmacy: [facility], 165.1, cm, 10/21/23 15:22:00 EDT, Height, [...] Access Member Role: Primary Care Physician Address: [address] Care Team Related Persons Name: JOAQUIM MCCOY Name: JENIFFER GALLEGOS Name: MERLE JARRETT Insurance Providers Guarantor name: KIANA Fam [facility] Information #: 1 Payer: [place]ID [place] Member Number: NA Policy Number: NA
--- OUTSIDE RECORDS SUMMARY | 2024-03-18 15:48 | XMS_ITS | Continuity of Care Document ---
Author Organization [facility] Address [address] [place] [address] Care Team Providers Care Elevator Serviceman Name Role Phone RUDYTimKEVEN MONTOYA DNP Primary Care Physician Encounter [facility] NBR [id number] Date(s): 03/04/24 - 03/04/[address] [address]- Discharge Disposition: Home or Self Care Attending Physician: Alva Henry PA-C Admitting Physician: Alva Henry PA-C Referring Physician: Alva Henry PA-C Encounter Type: Outpatient Allergies, Adverse Reactions, Alerts Substance Criticality Severity Reaction Reaction Severity Status vancomycin High criticality Moderate Swelling of oral cavity structure Fever Active Cats Low criticality Mild Rash Acti ve Dogs Low criticality Mild Rash Acti ve Dust Low criticality Mild Rash Acti ve budesonide-formote rol Low criticality Mild Rash Hives Active formoterol-mometas one Low criticality Mild Hives Rash Active Tape Low criticality Mild Skin irritation Active Banana Low criticality Mild stomsch upset Active [facility] Low criticality Mild Stomach upset Active Assessment and Plan Future Appointments Immunizations [...] Anterior Cervical Fusion 1 01/18/24 Completed Colonoscopy 2018 Completed section 09/02/15 Complete d Extraction of wisdom tooth Completed 1auto-populated from documented surgical case Results Radiology Reports * Exam Date Time Procedure Performing Provider Status 03/04/24 9:31 AM XR Foot Complete 3+ Views Right Maurice t, Artur; Auth (Verified) Notes: (XR Foot Complete 3+ Views Right) Reason For Exam: right foot crush injury XR Foot Complete 3+ Views Right EXAM DESCRIPTION: XR Foot Complete 3+ Views Right 03/04/2024 INDICATION: RIGHT FOOT CRUSH INJURY COMPARISON: None FINDINGS: No acute fracture, dislocation or bone destructive process. Joint spaces are maintained. No radiographic foreign bodies are seen. IMPRESSION: 1. No acute fracture, dislocation or bone destructive process. JOB #: [id number] Final Signed by: mAor Trotter MD Signed (Electronic Signature): 03/04/2024 9:42 am Social History Social History Type Response [...] MRI Safety Implantable Status Assigning Authority Unknown [id number] Unknown Unknown 08/15/25 Unknown Unknown Active Unknown Unknown Unknown [id number] Unknown 05/05/28 Unknown Unknown Active Unknown Unknown Unknown [id number] 22 Unknown 12/25/27 Unknown Unknown Active Unknown Unknown Unknown M1L2 024 Unknown Unknown Unknown Unknown Active Unknown Unknown Unknown M1L2 4 Unknown Unknown Unknown Unknown Active Unknown Patient Care team information Care Team Personnel Name: KEVEN PURI DNP Position: No Access Member Role: Primary Care Physician Address: [place] [address]- [place] Telecom: Care Team Related Persons Name: JOAQUIM MCCOY Name: JENIFFER GALLEGOS Name: MERLE JARRETT Insurance Providers Guarantor name: KIANA Fma [facility] [place] [place] Information #: 1 Payer: [place] Member Number: [id number] Policy Number: NA Group Number: NA Health Plan Information #: 2 Payer: [place] Member Number: [id number] Policy Number: NA Group Number: NA
--- OUTSIDE RECORDS SUMMARY | 2024-03-18 15:48 | XMS_ITS | Continuity of Care Document ---
Author Organization [facility] Address [address] [place] [address] Care Team Providers Care Hvac R Instructor Name Role Phone NITINMINE KEVEN LEMON Primary Care Physician [phone] Encounter [facility] NBR [id number] Date(s): 01/26/24 - 01/26/[address] [address] Encounter Diagnosis Arthrodesis status(Final) - Discharge Disposition: Home or Self Care Attending Physician: Austen Funez MD Admitting Physician: Austen Funez MD Referring Physician: Austen Funez MD Allergies, Adverse Reactions, Alerts Substance Criticality Severity Reaction Reaction Severity Status vancomycin High criticality Moderate Swelling of oral cavity structure Fever Active budesonide-formote rol Low criticality Mild Rash Hives Active formoterol-mometas one Low criticality Mild Hives Rash Active [place] Low criticality Mild Stomach upset Active Dust Low criticality Mild Rash Acti ve Cats Low criticality Mild Rash Acti ve Dogs Low criticality Mild Rash Acti ve Tape Low criticality Mild Skin irritation Active Banana Low criticality Mild stomsch upset Active Assessment and Plan Future Appointments [...] sedation., # 30 tab, 1 Refill(s), Pharmacy: [facility], 162.56, cm, 12/02/23 8:43:00 EDT, Height, 76.1, kg, 12/02/23 8:48:00 EDT, Weight Dosing Start Date: 12/16/23 Status: Ordered erenumab-aooe 70 mg/mL subcutaneous solution 70 mg =, Subcutaneous, every month, # 1 mL, 6 Refill(s), Pharmacy: [facility], 163.83, cm, 11/19/23 7:58:00 EDT, Height, 74.66, kg, 11/19/23 8:10:00 EDT, Weight Dosing Start Date: 11/25/23 Status: Ordered gabapentin 100 mg oral capsule 100 mg = 1 cap, Oral, TID, # 180 cap, 6 Refill(s), Pharmacy: [facility] Start Date: 12/10/22 Status: Ordered HYDROcodone-acetaminophen 5 mg-325 mg oral tablet 1 tab, Oral, every 6 hr, PRN as needed for pain, May increase to 2 tab TID PRN but use caution due to increased risk of sedation., # 40 tab, 0 Refill(s), Pharmacy: [facility], 165, cm, 01/18/24 16:29:00 EST, Height, 77.11, kg, 01/12/24 8:50:00 [...] BID, # 180 tab, 1 Refill(s), Pharmacy: [facility], 165.1, cm, 05/07/23 15:22:00 EDT, Height, [...] Daily, # 30 tab, 4 Refill(s), Pharmacy: [facility], 162.56, cm, 248:43:00 EDT, Height, 76.1, kg, 12/02/23 8:48:00 EDT, Weight Dosing Start Date: 12/02/23 Status: Ordered Relpax 20 mg oral tablet 20 mg = 1 tab, Oral, Daily, PRN as needed for migraine headache, may repeat dose once in 2 hours, #12 tab, 1 Refill(s), Pharmacy: [facility], 165.1, cm, 08/06/23 7:59:00 EDT, Height, 77.2, kg,08/06/23 8:07:00 EDT, Weight Dosing Start Date: 08/06/23 Status: Ordered Tezspire Pre-filled Pen 210 mg/1.91 mL subcutaneous solution 210 mg =, Subcutaneous, every 4 wk, # 1 EA, 5 Refill(s), Pharmacy: [facility], 162.56, cm, 12/02/23 [...] # 18 g, 3 Refill(s), Pharmacy: [facility], 165.1, cm, 10/21/23 15:22:00 EDT, [...] Exam Date Time Procedure Performing Provider Status 01/26/24 10:47 AM XR Spine Cervical 2 or 3 Views Artur Barnes; Maura (Verified) Notes: (XR Spine Cervical 2 or 3 Views) Reason For Exam: S/P cervical fusion XR Spine Cervical 2 or 3 Views EXAM DESCRIPTION: XR Spine Cervical 2 or 3 Views 01/26/2024 INDICATION: S/P CERVICAL FUSION COMPARISON: 01/18/2024 IMPRESSION: Status post ACDF at C4-5 and C5-6 with plate fixation apparatus and interbody spacer apparatus. Hardware appears in satisfactory position No acute fracture or subluxation. Mild straightening of lateral cervical spine alignment. Mild prevertebral soft tissue swelling most consistent with recent postoperative state. JOB #: [id number] Final Signed by: Amor Trotter MD Signed (Electronic Signature): 01/26/2024 10:49 am Social History Social History Type Response Tobacco Never tobacco user, Tobacco use status unknown Tobacco Use:. Sex Sex Representation Female (finding) Implantable Device List Procedure Provider Procedure Date Device Type Site Anterior Cervical Fusion Austen Salerni, MD 01/18/24 Un known Neck Device Identifier Serial Number Lot or Batch Number Manufacturing Date Expiration Date Distinct Identification Code MRI Safety Implantable Status Assigning Authority Unknown [id number] 0010 Unknown Unknown 08/15/25 Unknown Unknown Active Unknown Unknown Unknown [id number] Unknown 05/05/28 Unknown Unknown Active Unknown Unknown Unknown [id number] 22 Unknown 12/25/27 Unknown Unknown Active Unknown Unknown Unknown M1L2 024 Unknown Unknown Unknown Unknown Active Unknown Unknown Unknown M1L2 4 Unknown Unknown Unknown Unknown Active Unknown Patient Care team information Care Team Personnel Name: KEVEN PURI DNP Position: No Access Member Role: Primary Care Physician Address: [address] Care Team Related Persons Name: JOAQUIM MCCOY Name: JENIFFER GALLEGOS Name: MERLE JARRETT Insurance Providers Guarantor name: KIANA ISABEL Health Plan Information #: 1 Payer: [place] Member Number: [id number] Policy Number: NA Health Plan Information #: 2 Payer: [place] Member Number: [id number] Policy Number: NA
--- OUTSIDE RECORDS SUMMARY | 2024-03-18 15:48 | XMS_ITS | Continuity of Care Document ---
Author Organization [facility] Ambulatory Clinics Address [address] [place] [address] Care Team Providers Care Contract Mail Carrier Name Role Phone KEVEN PURI DNP Primary Care Physician Encounter [facility] NBR [id number] Date(s): 03/15/24 - 03/15/24 [facility] Ambulatory Clinics [address] [place], [place] [address] Encounter Diagnosis Sacroiliac joint dysfunction of both sides(Discharge Diagnosis) - 03/15/24 Low back pain(Discharge Diagnosis) - 03/15/24 Discharge Disposition: Home or Self Care Attending Physician: Kelsie Orozco DO Referring Physician: WALT Mcdowell Encounter Type: Clinic Allergies, Adverse Reactions, Alerts [...] Banana Low criticality Mild stomsch upset Active [place] Low criticality Mild Stomach upset Active Dust [...] Range]: 1 Peripheral Pulse Rate [60-100 bpm] 71 bp m (03/15/24 8:08 AM) Respiratory Rate [12-24 br/min] 20 br/mi n (03/15/24 8:08 AM) Blood Pressure [90-120/60-80 mmHg] 117/8 3mmHg (03/15/24 8:08 AM) Mean Arterial Pressure, Cuff [65-140 mmH g] 94 mmHg (03/15/24 8:08 AM) Weight 80.74 kg (03/15/24 8:08 AM) Weight Measured (lbs) 178.001 lb (03/15/24 8:08 AM) Weight Dosing 80.740 kg (03/15/24 8:08 AM) [place] Body Weight Calculated 55.85 kg (03/15/24 8:08 AM) Height 163.83 cm (03/15/24 8:08 AM) Height/Length Measured (inches) 64.5 inc h (03/15/24 8:08 AM) BSA Measured 1.92 m2 (03/15/24 8:08 AM) Body Mass Index 30.08 kg/m2 (03/15/24 8:08 AM) Social History Social History Type Response [...] MRI Safety Implantable Status Assigning Authority Unknown [id number] Unknown Unknown 08/15/25 Unknown Unknown Active Unknown Unknown Unknown [id number] Unknown 05/05/28 Unknown Unknown Active Unknown Unknown Unknown [id number] 22 Unknown 12/25/27 Unknown Unknown Active Unknown Unknown Unknown M1L2 024 Unknown Unknown Unknown Unknown Active Unknown Unknown Unknown M1L2 4 Unknown Unknown Unknown Unknown Active Unknown Patient Care team information Care Team Personnel Name: KEVEN PURI DNP Position: No Access Member Role: Primary Care Physician Address: [address] Telecom: Care Team Related Persons Name: JOAQUIM MCCOY Name: JENIFFER GALLEGOS Name: MERLE JARRETT Insurance Providers Guarantor name: KIANA ISABEL Health Plan Information #: 1 Payer: [place] Member Number: [id number] Policy Number: NA Group Number: NA Health Plan Information #: 2 Payer: [place] Member Number: [id number] Policy Number: NA Group Number: NA
--- OUTSIDE RECORDS SUMMARY | 2024-03-18 15:48 | XMS_ITS | Continuity of Care Document ---
Author Organization [facility] Ambulatory Clinics Address [address] [place] [address] Care Team Providers Care Pacs Administrator Name Role Phone KEVEN PURI DNP Primary Care Physician [phone] Encounter [facility] NBR [id number] Date(s): 02/09/24 - 02/09/24 [facility] Ambulatory Clinics [address] [place], [place] [address] Encounter Diagnosis S/P cervical spinal fusion(Discharge Diagnosis) - 02/09/24 Discharge Disposition: Home or Self Care Attending Physician: WALT Mcdowell Encounter Type: Clinic Allergies, [...] Banana Low criticality Mild stomsch upset Active Osborne Low criticality Mild Stomach upset Active Dust Low criticality Mild Rash Acti ve Assessment and Plan Extracted from: Title:Office Visit Note Author:ALPHONSO Mcdowell Date:02/09/24 1.??S/P cervical spinal fusi on??Z98.1 The patient is just over 3 weeks postop from her ACDF.?? She is doing very well??postoperatively with essentially minimal to no neck pain other than what feels like some muscular pain.?? Her radicular symptoms, paresthesias and preoperative neck pain??has resolved completely.?? She has actually found relief from her migraine headaches as well.?? 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 ??At this point, I think that is safe and a return to work note will be provided though she should avoid heavy lifting??for now.?? Will plan to follow-up in 4 weeks but she was encouraged to call sooner with any questions or concerns. Plan: Return work note provided. Follow-up in 4 weeks or sooner if needed. ? Future Appointments Immunizations Given and Recorded [...] Temperature Temporal Artery [36-38 Deg C ] 35.8 Deg C *LOW* (02/09/24 11:34 AM) Apical Heart Rate [60-100 bpm] 74 bpm (02/09/24 11:34 AM) Blood Pressure [90-120/60-80 mmHg] 112/7 6mmHg (02/09/24 11:34 AM) Mean Arterial Pressure, Cuff [65-140 mmH g] 88 mmHg (02/09/24 11:34 AM) Weight 77.7 kg (02/09/24 11:34 AM) Weight Measured (lbs) 171.299 lb (02/09/24 11:34 AM) Weight Dosing 77.700 kg (02/09/24 11:34 AM) [place] Body Weight Calculated 54.7 kg (02/09/24 11:34 AM) Height 162.56 cm (02/09/24 11:34 AM) Height/Length Measured (inches) 64 inch (02/09/24 11:34 AM) BSA Measured 1.87 m2 (02/09/24 11:34 AM) Body Mass Index 29.4 kg/m2 (02/09/24 11:34 AM) Social History Social History Type Response [...] MRI Safety Implantable Status Assigning Authority Unknown [id number] Unknown Unknown 08/15/25 Unknown Unknown Active Unknown Unknown Unknown [id number] Unknown 05/05/28 Unknown Unknown Active Unknown Unknown Unknown [id number] Unknown 12/25/27 Unknown Unknown Active Unknown Unknown Unknown M1L2 024 Unknown Unknown Unknown Unknown Active Unknown Unknown Unknown M1L2 4 Unknown Unknown Unknown Unknown Active Unknown Physician Outpatient Note * Atiya Reno APRN-PASCALE: PERFORM Event Display: Office Clinic Note Physician Authored Date: [id number] KIANA ISABEL I :1990 Age:33 years Sex:Female Visit Date:02/09/2024 Primary Care Physician: KEVEN PURI DNP Chief Complaint POV#2 Additional Information Patient states things are going well, states is sleeping more throughout the night, has more ROM inher neck, States things are much better and she could not be happier. History of Present Illness The patient presents for postoperative visit.?? She underwent ACDF C4-5 and C5-[address] Funez on 01/18/24.?She states that she is doing quite well and has had significant movement in her neck pain and actually noticed yesterday when she was sitting on bleachers at her??child's??event she had??no burning pain extending down her spine.?? She did have that prior to surgery and it could be severe.?? She states she has??some mild discomfort on the sides of her neck but this feels more muscular in nature and has improved significantly.?? She is no longer experiencing any paresthesias or painin the upper or lower extremities.?? She has also found that she has not had any migraine headachessince her surgery. ??She is seeing her neurologist next month for follow-up.?? She has increased her activity and is very eager to return to her work. Review of Systems Relevant ROS discussed in HPI Physical Exam Vitals & Measurements T:??35.8?C ??(Temporal Artery)?? HR:??74??(Apical)?? BP:??112/76?? SpO2:??97%?? HT:??162.56??cm?? WT:??77.7??kg?? BMI:??29.4?? Pain Score:??2?? BSA:??1.87?? GENERAL:?General Appearance:?pleasant, age appropriate in no apparent distress.?? ENT: ? The voice sounds normal.?? The patient is speaking in full sentences. NEUROLOGICAL:?Motor:?Strength 5/5 with bilateral deltoid abduction, bicep flexion, triceps flexion, wrist extension, hand abduction, hip flexion, knee flexion and extension, ankle dorsiflexion andplantar flexion.? Tone: Normal ? Gait: Normal? SKIN: ?Wound: The cervical wound is flat and dry. Assessment/Plan 1.??S/P cervical spinal fusion??Z98.1 The patient is just over 3 weeks postop from her ACDF.?? She is doing very well??postoperatively with essentially minimal to no neck pain other than what feels like some muscular pain.?? Her radicular symptoms, paresthesias and preoperative neck pain??has resolved completely.?? She has actually found relief from her migraine headaches as well.?? 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 ??At this point, I think that is safe and a return to work note will be provided thoughshe should avoid heavy lifting??for now.?? Will plan to follow-up in 4 weeks but she was encouragedto call sooner with any questions or concerns. Plan: Return work note provided. Follow-up in 4 weeks or sooner if needed. ?? Problem List/Past Medical History Ongoing Anemia [...] spondylosis Procedure/Surgical History ???Anterior Cervical Fusion (01/18/2024)???Colonoscopy (2018)??? section (09/03/2015)???Extraction of wisdom tooth Medications albuterol [...] structure, Fever) Banana??(stomsch upset) Cats??(Rash) Dogs??(Rash) Dust??(Rash) Osborne??(Stomach upset) Tape??(Skin irritation) budesonide-formoterol??(Rash, Hives) formoterol-mometasone??(Hives, Rash) Social History Alcohol Never Electronic Cigarette/Vaping Electronic Cigarette Use: Never, Unknown/not obtained. Substance Use Never Tobacco Never tobacco user, Tobacco use status unknown Tobacco Use:. Family History Hypertension: Father. Immunizations Vaccine Date Status influenza virus vaccine, inactivated 12/16/2023 Given Electronically Signed on 02/09/2024 12:28 EST WALT Mcdowell Patient Care team information Care Team Personnel Name: KEVEN PURI DNP Position: No Access Member Role: Primary Care Physician Address: [address] Telecom: Care Team Related Persons Name: JOAQUIM MCCOY Name: JENIFFER GALLEGOS Name: MERLE JARRETT Insurance Providers Guarantor name: KIANA ISABEL Health Plan Information #: 1 Payer: [place] Member Number: [id number] Policy Number: NA Group Number: NA Health Plan Information #: 2 Payer: [place] Member Number: [id number] Policy Number: NA Group Number: NA
--- OUTSIDE RECORDS SUMMARY | 2024-03-18 15:48 | XMS_ITS | Continuity of Care Document ---
Author Organization [facility] Ambulatory Clinics Address [address] [place] [address] Care Team Providers Care Museum Preparator Name Role Phone NITINKEVEN BLOUNT DNP Primary Care Physician [phone] Encounter [facility] NBR [id number] Date(s): 02/02/24 - 02/02/24 [facility] Ambulatory Clinics [address] [place], [place] [address] Discharge Disposition: Home Allergies, Adverse Reactions, Alerts Substance Criticality Severity Reaction Reaction Severity Status vancomycin High criticality Moderate Swelling of oral cavity structure Fever Active Dogs Low criticality Mild Rash Acti ve Banana Low criticality Mild stomsch upset Active Hooker Low criticality Mild Stomach upset Active budesonide-formote rol Low criticality Mild Rash Hives Active formoterol-mometas one Low criticality Mild Hives Rash Active Cats Low criticality Mild Rash Acti ve Tape Low criticality Mild Skin irritation Active Dust Low criticality Mild Rash Acti [...] sedation., # 30 tab, 1 Refill(s), Pharmacy: [facility], 162.56, cm, 12/02/23 8:43:00 EDT, Height, 76.1, kg, 12/02/23 8:48:00 EDT, Weight Dosing Start Date: 12/16/23 Status: Ordered erenumab-aooe 70 mg/mL subcutaneous solution 70 mg =, Subcutaneous, every month, # 1 mL, 6 Refill(s), Pharmacy: [facility], 163.83, cm, 11/19/23 7:58:00 EDT, Height, 74.66, kg, 11/19/23 8:10:00 EDT, Weight Dosing Start Date: 11/25/23 Status: Ordered gabapentin 100 mg oral capsule 100 mg = 1 cap, Oral, TID, # 180 cap, 6 Refill(s), Pharmacy: [facility] Start Date: 12/10/22 Status: Ordered HYDROcodone-acetaminophen 5 mg-325 mg oral tablet 1 tab, Oral, every 6 hr, PRN as needed for pain, May increase to 2 tab TID PRN but use caution due to increased risk of sedation., # 40 tab, 0 Refill(s), Pharmacy: [facility], 165, cm, 01/18/24 16:29:00 EST, Height, [...] BID, # 180 tab, 1 Refill(s), Pharmacy: [facility], 165.1, cm, 05/07/23 15:22:00 EDT, Height, [...] Daily, # 30 tab, 4 Refill(s), Pharmacy: [facility], 162.56, cm, 248:43:00 EDT, Height, 76.1, kg, 12/02/23 8:48:00 EDT, Weight Dosing Start Date: 12/02/23 Status: Ordered Relpax 20 mg oral tablet 20 mg = 1 tab, Oral, Daily, PRN as needed for migraine headache, may repeat dose once in 2 hours, #12 tab, 1 Refill(s), Pharmacy: [facility], 165.1, cm, 08/06/23 7:59:00 EDT, Height, 77.2, kg,08/06/23 8:07:00 EDT, Weight Dosing Start Date: 08/06/23 Status: Ordered Tezspire Pre-filled Pen 210 mg/1.91 mL subcutaneous solution 210 mg =, Subcutaneous, every 4 wk, # 1 EA, 5 Refill(s), Pharmacy: [facility], 162.56, cm, 12/02/23 8:43:00 [...] WHEEZING, # 18 g, 3 Refill(s), Pharmacy: [facility], 165.1, cm, 10/21/23 15:22:00 EDT, Height, [...] tooth Completed 1auto-populated from documented surgical case Social History Social History Type Response Tobacco Never tobacco user, Tobacco use status unknown Tobacco Use:. Sex Sex Representation Female (finding) Implantable Device List Procedure Provider Procedure Date Device Type Site Anterior Cervical Fusion Austen Funez MD 01/18/24 Un known Neck Device Identifier Serial Number Lot or Batch Number Manufacturing Date Expiration Date Distinct Identification Code MRI Safety Implantable Status Assigning Authority Unknown [id number] Unknown Unknown 08/15/25 Unknown Unknown Active Unknown Unknown Unknown [id number] Unknown 05/05/28 Unknown Unknown Active Unknown Unknown Unknown [id number] Unknown 12/25/27 Unknown Unknown Active Unknown Unknown Unknown M1L2 024 Unknown Unknown Unknown Unknown Active Unknown Unknown Unknown M1L2 4 Unknown Unknown Unknown Unknown Active Unknown Patient Care team information Care Team Personnel Name: KEVEN PURI DNP Position: No Access Member Role: Primary Care Physician Address: [address] Care Team Related Persons Name: JOAQUIM MCCOY Name: JENIFFER GALLEGOS Name: MERLE JARRETT Insurance Providers Guarantor name: KIANA Sarwat [facility] Health Plan Information #: 1 Payer: [place] Member Number: NA Policy Number: NA
--- OUTSIDE RECORDS SUMMARY | 2024-03-18 15:48 | XMS_ITS | Continuity of Care Document ---
Author Organization [facility] Ambulatory Clinics Address [address] [place] [address] Care Team Providers Care Physician/Internist Name Role Phone JAXSON KEVEN LEMON Primary Care Physician Encounter [facility] NBR [id number] Date(s): 12/09/23 - 12/09/23 [facility] Ambulatory Clinics [address] [place], [place] [address] Discharge Disposition: Home Allergies, Adverse Reactions, [...] Active Banana Low criticality Mild Acti ve [place] Low criticality Mild Acti ve Dust Unable [...] of sedation., # 30tab, 0 Refill(s), Pharmacy: [facility], 165.1, cm, 10/21/23 15:22:00 EDT, Height, 73.48, kg, 10/30/23 9:08:00 EDT, Weight Dosing Start Date: 11/11/23 Status: Ordered erenumab-aooe 70 mg/mL subcutaneous solution 70 mg =, Subcutaneous, every month, # 1 mL, 6 Refill(s), Pharmacy: [facility], 163.83, cm, 11/19/23 7:58:00 EDT, Height, 74.66, kg, 11/19/23 8:10:00 EDT, Weight Dosing Start Date: 11/25/23 Status: Ordered gabapentin 100 mg oral capsule 100 mg = 1 cap, Oral, TID, # 180 cap, 6 Refill(s), Pharmacy: [facility] Start Date: 12/10/22 Status: Ordered hydrOXYzine [...] medication., # 16 tab, 0 Refill(s), Pharmacy: [facility], 163.83, cm, 11/19/23 7:58:00 EDT, Height, 75.8, kg, 11/27/23 14:18:00 EDT, Weight Dosing Start Date: 11/27/23 Status: Ordered Lexapro 20 mg oral tablet 20 mg = 1 tab, Oral, Daily, # 30 tab, 0 Refill(s) Start Date: 10/21/23 Status: Ordered Medrol 4 mg oral tablet 1 packets, Oral, Daily, as directed on package labeling, # 21 tab, 0 Refill(s), Pharmacy: [facility], 165.1, cm, 10/21/23 15:22:00 EDT, Height, [...] wk, # 1 EA, 5 Refill(s), Pharmacy: [facility], 162.56, cm, 12/02/23 8:43:00 [...] WHEEZING, # 18 g, 3 Refill(s), Pharmacy: [facility], 165.1, cm, 10/21/23 15:22:00 EDT, Height, [...] Access Member Role: Primary Care Physician Address: [address] Care Team Related Persons Name: JOAQUIM MCCOY Name: JENIFFER GALLEGOS Name: MERLE JARRETT Insurance Providers Guarantor name: KIANA Fam [facility] Information #: 1 Payer: MEDICAID [place] Member Number: NA Policy Number: NA
--- OUTSIDE RECORDS SUMMARY | 2024-03-18 15:48 | XMS_ITS | Continuity of Care Document ---
Author Organization [facility] Ambulatory Clinics Address [address] [place] [address] Care Team Providers Care Biophysics Scientist Name Role Phone JAXSON KEVEN LEMON Primary Care Physician Encounter [facility] NBR [id number] Date(s): 11/26/23 - 11/26/23 [facility] Ambulatory Clinics [address] [place], [place] [address] Discharge Disposition: Home Allergies, Adverse [...] Active Banana Low criticality Mild Acti ve [place] Low criticality Mild Acti ve Dust Unable [...] of sedation., # 30tab, 0 Refill(s), Pharmacy: [facility], 165.1, cm, 10/21/23 15:22:00 EDT, Height, 73.48, kg, 10/30/23 9:08:00 EDT, Weight Dosing Start Date: 11/11/23 Status: Ordered Deblitane 0.35 mg oral tablet 84 EA, 0 Refill(s), TAKE ONE TABLET BY MOUTH EVERY DAY, 0 Refill(s) Start Date: 09/28/23 Status: Ordered erenumab-aooe 70 mg/mL subcutaneous solution 70 mg =, Subcutaneous, every month, # 1 mL, 6 Refill(s), Pharmacy: [facility], 163.83, cm, 11/19/23 7:58:00 EDT, Height, 74.66, kg, 11/19/23 8:10:00 EDT, Weight Dosing Start Date: 11/25/23 Status: Ordered gabapentin 100 mg oral capsule 100 mg = 1 cap, Oral, TID, # 180 cap, 6 Refill(s), Pharmacy: [facility] Start Date: 12/10/22 Status: Ordered hydrOXYzine [...] labeling, # 21 tab, 0 Refill(s), Pharmacy: [facility], 165.1, cm, 10/21/23 15:22:00 EDT, Height, [...] Access Member Role: Primary Care Physician Address: [address] Care Team Related Persons Name: JOAQUIM MCCOY Name: JENIFFER GALLEGOS Name: MERLE JARRETT Insurance Providers Guarantor name: KIANA Fam [facility] Plan Information #: 1 Payer: MEDICAID [place] Member Number: NA Policy Number: NA
--- OUTSIDE RECORDS SUMMARY | 2024-03-18 15:48 | XMS_ITS | Continuity of Care Document ---
Author Organization [facility] Address [address] [place] [address] Care Team Providers Care Rigger Apprentice Name Role Phone NITINKEVEN BLOUNT DNP Primary Care Physician [id number] Date(s): 01/04/24 - 01/04/[address] [address] Encounter Diagnosis Pre-op testing(Discharge Diagnosis) - 01/04/24 Encounter for other preprocedural examination(Final) - Discharge [...] Active Banana Low criticality Mild Acti ve [place] Low criticality Mild Acti ve Dust Unable [...] sedation., # 30 tab, 1 Refill(s), Pharmacy: [facility], 162.56, cm, 12/02/23 8:43:00 EDT, Height, 76.1, kg, 12/02/23 8:48:00 EDT, Weight Dosing Start Date: 12/16/23 Status: Ordered cyclobenzaprine 5 mg oral tablet 5 mg = 1 tab, Oral, TID, PRN as needed for muscle spasm, Use caution due to risk of sedation., # 30tab, 0 Refill(s), Pharmacy: [facility], 165.1, cm, 10/21/23 15:22:00 EDT, Height, 73.48, kg, 10/30/23 9:08:00 EDT, Weight Dosing Start Date: 11/11/23 Status: Ordered erenumab-aooe 70 mg/mL subcutaneous solution 70 mg =, Subcutaneous, every month, # 1 mL, 6 Refill(s), Pharmacy: [facility], 163.83, cm, 11/19/23 7:58:00 EDT, Height, 74.66, kg, 11/19/23 8:10:00 EDT, Weight Dosing Start Date: 11/25/23 Status: Ordered gabapentin 100 mg oral capsule 100 mg = 1 cap, Oral, TID, # 180 cap, 6 Refill(s), Pharmacy: [facility] Start Date: 12/10/22 Status: Ordered HYDROcodone-acetaminophen 5 mg-325 mg oral tablet 1 tab, Oral, TID, PRN as needed for pain, May increase to 2 tab TID PRN but use caution due to increased risk of sedation., # 60 tab, 0 Refill(s), Pharmacy: [facility], 162.56, cm, 12/02/23 8:43:00 EDT, Height, [...] medication., # 16 tab, 0 Refill(s), Pharmacy: [facility], 163.83, cm, 11/19/23 7:58:00 EDT, Height, 75.8, kg, 11/27/23 14:18:00 EDT, Weight Dosing Start Date: 11/27/23 Status: Ordered Lexapro 20 mg oral tablet 20 mg = 1 tab, Oral, Daily, # 30 tab, 0 Refill(s) Start Date: 10/21/23 Status: Ordered Medrol 4 mg oral tablet 1 packets, Oral, Once, as directed on package labeling, # 21 tab, 0 Refill(s), Pharmacy: [facility], 162.56, cm, 12/02/23 8:43:00 EDT, Height, 76.1, kg, 12/02/23 8:48:00 EDT, Weight Dosing Start Date: 12/16/23 Status: Ordered Medrol 4 mg oral tablet 1 packets, Oral, Daily, as directed on package labeling, # 21 tab, 0 Refill(s), Pharmacy: [facility], 165.1, cm, 10/21/23 15:22:00 EDT, Height, 73.48, kg, 10/30/23 9:08:00 EDT, Weight Dosing Start Date: 11/11/23 Stop Date: 11/17/23 Status: Ordered metoprolol succinate 50 mg oral tablet, extended release 50 mg = 1 tab, Oral, BID, # 180 tab, 1 Refill(s), Pharmacy: [facility], 165.1, cm, 05/07/23 15:22:00 EDT, [...] Daily, # 30 tab, 4 Refill(s), Pharmacy: [facility], 162.56, cm, 248:43:00 EDT, Height, 76.1, kg, 12/02/23 8:48:00 EDT, Weight Dosing Start Date: 12/02/23 Status: Ordered Relpax 20 mg oral tablet 20 mg = 1 tab, Oral, Daily, PRN as needed for migraine headache, may repeat dose once in 2 hours, #12 tab, 1 Refill(s), Pharmacy: [facility], 165.1, cm, 08/06/23 7:59:00 EDT, Height, 77.2, kg,08/06/23 8:07:00 EDT, Weight Dosing Start Date: 08/06/23 Status: Ordered Tezspire Pre-filled Pen 210 mg/1.91 mL subcutaneous solution 210 mg =, Subcutaneous, every 4 wk, # 1 EA, 5 Refill(s), Pharmacy: [facility], 162.56, cm, 12/02/23 [...] WHEEZING, # 18 g, 3 Refill(s), Pharmacy: [facility], 165.1, cm, 10/21/23 15:22:00 EDT, Height, [...] Access Member Role: Primary Care Physician Address: [address] Care Team Related Persons Name: JOAQUIM MCCOY Name: JENIFFER GALLEGOS Name: MERLE JARRETT Insurance Providers Guarantor name: KIANA ISABEL Health Plan Information #: 1 Payer: [place] Member Number: [id number] Policy Number: NA Health Plan Information #: 2 Payer: [place]ID [place] Member Number: [id number] Policy Number: NA
--- OUTSIDE RECORDS SUMMARY | 2024-03-18 15:48 | XMS_ITS | Continuity of Care Document ---
Author Organization [facility] Address [address] [place] [address] Care Team Providers Care Picker Operator Name Role Phone JAXSON KEVEN LEMON Primary Care Physician Encounter [facility] NBR [id number] Date(s): 11/26/23 - 11/26/[address] [address] Discharge Disposition: Home or Self [...] Active Banana Low criticality Mild Acti ve [facility] [place] Low criticality Mild Acti ve Dust Unable [...] of sedation., # 30tab, 0 Refill(s), Pharmacy: [facility], 165.1, cm, 10/21/23 15:22:00 EDT, Height, 73.48, kg, 10/30/23 9:08:00 EDT, Weight Dosing Start Date: 11/11/23 Status: Ordered Deblitane 0.35 mg oral tablet 84 EA, 0 Refill(s), TAKE ONE TABLET BY MOUTH EVERY DAY, 0 Refill(s) Start Date: 09/28/23 Status: Ordered erenumab-aooe 70 mg/mL subcutaneous solution 70 mg =, Subcutaneous, every month, # 1 mL, 6 Refill(s), Pharmacy: [facility] #[facility], 163.83, cm, 11/19/23 7:58:00 EDT, Height, 74.66, kg, 11/19/23 8:10:00 EDT, Weight Dosing Start Date: 11/25/23 Status: Ordered gabapentin 100 mg oral capsule 100 mg = 1 cap, Oral, TID, # 180 cap, 6 Refill(s), Pharmacy: [facility] Start Date: 12/10/22 Status: Ordered hydrOXYzine [...] # 21 tab, 0 Refill(s), Pharmacy: [facility], [...] headache, # 90 tab, 1 Refill(s), Pharmacy: [facility], 165.1, cm, 03/05/23 7:56:00 EST, Height, 76.11, kg, 03/05/23 8:01:00 EST, Weight Dosing Start Date: 03/05/23 Status: Ordered Relpax 20 mg oral tablet 20 mg = 1 tab, Oral, Daily, PRN as needed for migraine headache, may repeat dose once in 2 hours, #12 tab, 1 Refill(s), Pharmacy: [facility], 165.1, cm, 08/06/23 7:59:00 EDT, Height, [...] WHEEZING, # 18 g, 3 Refill(s), Pharmacy: [facility], 165.1, cm, 10/21/23 15:22:00 EDT, Height, [...] Exam Date Time Procedure Performing Provider Status 11/26/23 12:11 PM MRI Spine Thoracic w/o Contrast Felicia Shields; Auth (Verified) Notes: (MRI Spine Thoracic w/o Contrast) Reason For Exam: dorsalgia, possible thoracic spinal stenosis T3-4 MRI Spine Thoracic w/o Contrast EXAM DESCRIPTION: MRI Spine Thoracic w/o Contrast 11/26/2023 INDICATION: DORSALGIA, POSSIBLE THORACIC SPINAL STENOSIS T3-4 TECHNIQUE: Multiplanar MRI examination of the thoracic spine utilizing T1, fat-suppressed T2 and fast STIR technique. COMPARISON: None FINDINGS: Lateral thoracic spine alignment is satisfactory. T3-4: Mild central disc protrusion with mild relative stenosis. This encroaches on the ventral aspect of the thoracic spinal cord without significant deformity. T4-5: Mild central disc protrusion without significant stenosis or cord encroachment Remaining levels demonstrate no focal disc protrusion or significant stenosis. Neural foramina appear without significant encroachment throughout the thoracic region No intrinsic signal abnormality within the thoracic spinal cord to suggest edema or myelomalacia with no evidence of syrinx No suspicious regional marrow lesions. No vertebral body compression deformity in the thoracic region Paraspinal soft tissues are unremarkable IMPRESSION: Mild spondylotic changes. No significant thoracic stenosis or cord deformity. Please see above discussion for detailed description JOB #: [id number] Final Signed by: Amor Trotter MD Signed (Electronic Signature): 11/26/2023 2:57 pm * Exam Date Time Procedure Performing Provider Status 11/26/23 12:11 PM MRI Spine Cervical w/o Contrast Felicia Shields; Auth (Verified) Notes: (MRI Spine Cervical w/o Contrast) Reason For Exam: cervicalgia, cervical spondylosis and stenosis, paresthesias, hyperreflexia MRI Spine Cervical w/o Contrast EXAM DESCRIPTION: MRI Spine Cervical w/o Contrast 11/26/2023 INDICATION: CERVICALGIA, CERVICAL SPONDYLOSIS AND STENOSIS, PARESTHESIAS, HYPERREFLEXIA TECHNIQUE: Multiplanar MRI examination of the cervical spine utilizing T1, fat-suppressed T2 and fast STIR technique. Mild patient motion artifact. COMPARISON: MRI cervical spine examination from 08/21/2022 FINDINGS: Mild reversal of cervical lordosis C2-3: No focal disc protrusion, significant spinal stenosis or neural foraminal narrowing. C3-4: No focal disc protrusion, significant spinal stenosis or neural foraminal narrowing. C4-5: Mild broad-based central disc osteophyte complex. No cord encroachment or deformity with AP spinal canal diameter of 7.8 mm. No neural foraminal narrowing C5-6: Broad-based central disc osteophyte complex. No cord encroachment or deformity with AP spinal canal diameter of 8.1 mm. Mild bilateral uncovertebral spurring without significant neural foraminal narrowing C6-7: Mild broad-based central disc osteophyte complex. No significant stenosis or cord encroachment with AP spinal canal diameter of 9.5 mm. No neural foraminal narrowing C7-T1: No focal disc protrusion, significant spinal stenosis or neural foraminal narrowing. The visualized posterior fossa structures and cervical spinal cord are normal in morphology and signal intensity with no evidence of syrinx. No suspicious regional marrow lesions. No vertebral body compression deformity in the cervical region Paraspinal soft tissues are unremarkable. IMPRESSION: Mild spondylotic changes at some levels. No significant cervical spinal stenosis stenosis or cord deformity. Please see above discussion for individual level description. JOB #: [id number] Final Signed by: Amor Trotter MD Signed (Electronic Signature): 11/26/2023 2:32 pm Social History Social History Type Response Tobacco Never tobacco user, Tobacco use status unknown Tobacco Use:. Sex Sex Representation Female (finding) Patient Care team information Care Team Personnel Name: KEVEN PURI DNP Position: No Access Member Role: Primary Care Physician Address: [place] [address]- Care Team Related Persons Name: JOAQUIM MCCOY Name: JENIFFER GALLEGOS Name: MERLE JARRETT Insurance Providers Guarantor name: KIANA JUNIORFIELD Health Plan Information #: 1 Payer: [place] Member Number: [id number] Policy Number: NA Health Plan Information #: 2 Payer: [place] Member Number: [id number] Policy Number: NA
--- OUTSIDE RECORDS SUMMARY | 2024-03-18 15:48 | XMS_ITS | Continuity of Care Document ---
Author Organization [facility] Address [address] [place] [address] Care Team Providers Care Dining Chair Seat Cushion Trimmer Name Role Phone JAXSON KEVEN LEMON Primary Care Physician [phone] Encounter [facility] NBR [id number] Date(s): 11/19/23 - 11/19/23 [facility] [address] [place], [place] [address] Discharge Disposition: Home Allergies, Adverse Reactions, Alerts [...] Active Banana Low criticality Mild Acti ve [place] Low criticality Mild Acti ve Dust Unable [...] of sedation., # 30tab, 0 Refill(s), Pharmacy: [facility], 165.1, cm, 10/21/23 15:22:00 EDT, Height, 73.48, kg, 10/30/23 9:08:00 EDT, Weight Dosing Start Date: 11/11/23 Status: Ordered Deblitane 0.35 mg oral tablet 84 EA, 0 Refill(s), TAKE ONE TABLET BY MOUTH EVERY DAY, 0 Refill(s) Start Date: 09/28/23 Status: Ordered gabapentin 100 mg oral capsule 100 mg = 1 cap, Oral, TID, # 180 cap, 6 Refill(s), Pharmacy: [facility] Start Date: 12/10/22 Status: Ordered hydrOXYzine [...] labeling, # 21 tab, 0 Refill(s), Pharmacy: [facility] #[facility], 165.1, cm, 10/21/23 15:22:00 EDT, Height, 73.48, kg, 10/30/23 9:08:00 EDT, Weight Dosing Start Date: 11/11/23 Stop Date: 11/17/23 Status: Ordered metoprolol succinate 50 mg oral tablet, extended release 50 mg = 1 tab, Oral, BID, # 180 tab, 1 Refill(s), Pharmacy: [facility] #[facility], 165.1, cm, 05/07/23 15:22:00 EDT, Height, [...] headache, # 90 tab, 1 Refill(s), Pharmacy: [facility] #[facility], 165.1, cm, 03/05/23 7:56:00 EST, Height, 76.11, kg, 03/05/23 8:01:00 EST, Weight Dosing Start Date: 03/05/23 Status: Ordered Relpax 20 mg oral tablet 20 mg = 1 tab, Oral, Daily, PRN as needed for migraine headache, may repeat dose once in 2 hours, #12 tab, 1 Refill(s), Pharmacy: [facility] #[facility], 165.1, cm, 08/06/23 7:59:00 EDT, Height, [...] WHEEZING, # 18 g, 3 Refill(s), Pharmacy: [facility] #[facility], 165.1, cm, 10/21/23 15:22:00 EDT, Height, [...] Access Member Role: Primary Care Physician Address: [address] Care Team Related Persons Name: JOAQUIM MCCOY Name: JENIFFER GALLEGOS Name: MERLE JARRETT Insurance Providers Guarantor name: KIANA [facility] Plan Information #: 1 Payer: [place] Member Number: NA Policy Number: NA
--- OUTSIDE RECORDS SUMMARY | 2024-03-18 15:49 | XMS_ITS | Clinical Summary ---
Author Organization [facility] Address [address] [place] [address] Care Team Providers Care Container Packer Operator Name Role Phone Nadja Doan PASCALE Primary Care Provider [phone] Butch Yanes MD Unavailable Unavailable Allergies Active Allergy Reactions Criticality Noted Date Comments Banana Low 05/28/2009 Medications VITS W-CA,FE,FA,<1MG, ( #2 ORAL) Take 1 [...] Recorded Sex Assigned at Not on file Legal Sex Female 18:47 EST Gender Identity Not on file Sexual Orientation [...] 3-dose series) 2009 COVID-19 Vaccine (3 - 2023-25 season) 10/25/202310/2020, 04/03/2020 RSV Immunization ( o r 60+ Years) (1 - 1-dose 75+ series) 2065 Hepatitis C Screen Completed 03/13/2021, 07/16/2020 Procedures Procedure Name Priority Date/Time Associated Diagnosis Comments HEPATITIS C AB W REFLEX TO HCV RNA BY PCR Routine 03/13/2021 12:07 EST from Last 3 Months or Most Recently Relevant to Health Maintenance Results * HEPATITIS C AB W REFLEX TO HCV RNA BY PCR (03/13/2021 12:07 EST) Hep C Antibody Negative Negative 03/14/2021 9:47 EST [facility] Blood VENOUS BLOOD / Unknown 03/13/2021 12:07 EST 03/13/2021 21:07 EST us Provider Outr Resulting Lab CHEMISTRY & BLOOD GA S ORDERABLES Final Result [facility] [address] [place] [address] from Last 3 Months or Most Recently Relevant to Health Maintenance Insurance MED[place]ID [place] [employer] Member Subscriber Plan / Payer (Ef fective 2019-Present) Name:Miya Merritt Relation to Subscriber:Self Name:Miya Merritt Payer ID:[id number] (NAIC) Group ID:[id number] Type:[employer] Address: [place] [address] CIG[employer] Advance Directives For more information, please contact: [phone] * Full Code (Latest Code Status on File) Date Activated Date Inactivated Comments 05/25/2009 17:26 06/08/2009 17:01 * Full Code Date Activated Date Inactivated Comments 05/24/2009 20:57 05/25/2009 17:26 Care Teams Container Packer Operator Relationship Specialty Start Date End Date Nadja Doan FNP [address] [place] [address] PCP - General 12/24/18 Butch Yanes MD [address] [place] [address] 12/24/18
--- OUTSIDE RECORDS SUMMARY | 2024-03-18 15:49 | XMS_ITS | Encounter Summary ---
Author Organization [facility] Address [address] [place] [address] Care Team Providers Care Correction Officer [place] [employer] Name Role Phone Nadja Doan PASCALE Primary Care Provider [phone] Butch Yanes MD Unavailable Unavailable Encounter Details Date Type Department Care Team (Late st Contact Info) Description 02/26/2022 Lab Requisition [facility] Pathology & Laboratory Medicine - [address] [address] Outr Resulting Lab, Provider Social History Tobacco [...] IgE 383(H) <158 IU/mL 02/28/2022 8:17 EST [facility] Blood VENOUS BLOOD / Unknown 02/26/2022 12:30 EST 02/26/2022 21:58 EST us Provider Outr Resulting Lab CHEMISTRY & BLOOD GA S ORDERABLES Final Result [facility] [address] [place] [address] documented in this encounter Visit Diagnoses Not on filedocumented in this encounter Care Teams Correction Officer [place] [employer] Relationship Specialty Start Date End Date Nadja Doan FNP [address] [place] [address] PCP - General 12/24/18 Butch Yanes MD [address] [place] [address] 12/24/18 documented as of this encounter
--- OUTSIDE RECORDS SUMMARY | 2024-03-18 15:49 | XMS_ITS | Encounter Summary ---
Author Organization [facility] Address [address] [place] [address] Care Team Providers Care Dry Mop Maker Name Role Phone Nadja Doan PASCALE Primary Care Provider [phone] Butch Yanes MD Unavailable Unavailable Encounter Details Date Type Department Care Team (Late st Contact Info) Description 11/22/2020 Lab Requisition [facility] Pathology & Laboratory Medicine - [address] [id number] Outr Resulting Lab, Provider Social History Tobacco [...] Comments ZZCOVID-19 TEST [facility] PCR Today 11/22/2020 11:55 EDT COVID-19 TESTING Routine 11/22/2020 11:5 5 EDT documented in this encounter Results * COVID-19 TEST [facility] PCR (11/22/2020 11:55 EDT) Swab ENTIRE NASOPHARYNX / Unknown 11/22/2020 11:55 EDT 11/22/2020 22:15 EDT Provider Outr Resulting Lab MICROBIOLOGY - GENER AL ORDERABLES Final Result Performing Organization Address [facility] de Phone Number [facility] [address] [place] [address] * COVID-19 TESTING (11/22/2020 11:55 EDT) COVID-19 rt-PCR Result Negative Negative 11/23/2020 1:57 EDT [facility] Comment: This test has [...] history, and epidemiological information. Performed on the dabanniu.comher Fusion instrument Performing Lab [place] [facility] 11/23/2020 1:57 EDT [facility] Swab 11/22/2020 11:5 5 EDT 11/22/2020 22:15 EDT us Provider Outr Resulting Lab MICROBIOLOGY - GENER AL ORDERABLES Final Result Performing Organization Address [facility] Co de Phone Number [facility] [address] [place] [address] documented in this encounter Visit Diagnoses Not on filedocumented in this encounter Care Teams Dry Mop Maker Relationship Specialty Start Date End Date [place] [address] PCP - General 12/24/18 Butch Yanes MD [address] [place] [address] 12/24/18 documented as of this encounter
--- OUTSIDE RECORDS SUMMARY | 2024-03-18 15:49 | XMS_ITS | Encounter Summary ---
Author Organization [facility] Address [address] [place] [address] Care Team Providers Care Bakery Products Checker Name Role Phone Nadja Doan PASCALE Primary Care Provider Butch Yanes MD Unavailable Unavailable Encounter Details Date Type Department Care Team (Late st Contact Info) Description 03/08/2021 Lab Requisition [facility] Pathology & Laboratory Medicine - [address] [id number] Outr Resulting Lab, Provider Social History Tobacco [...] 03/08/2021 10:2 5 EST 03/08/2021 21:44 EST us Provider Outr Resulting Lab MICROBIOLOGY - GENER AL ORDERABLES Final Result Performing Organization Address City/[facility] Co de Phone Number [facility] [address] [place] [address] * COVID-19 TESTING (03/08/2021 10:25 EST) COVID-19 rt-PCR Result Negative Negative 03/09/2021 1:18 EST [facility] Comment: This test [...] history, and epidemiological information. Performed on the Greycorkher Fusion instrument Performing Lab [place] [facility] 03/09/2021 1:18 EST [facility] Swab 03/08/2021 10:2 5 EST 03/08/2021 21:44 EST us Provider Outr Resulting Lab MICROBIOLOGY - GENER AL ORDERABLES Final Result Performing Organization Address City/[facility]/ZIP Co de Phone Number [facility] [address] [place] [address] documented in this encounter Visit Diagnoses Not on filedocumented in this encounter Care Teams Bakery Products Checker Relationship Specialty Start Date End Date Nadja [place]an [place] [address] PCP - General 12/24/18 Butch Yanes MD [address] [place] [address] 12/24/18 documented as of this encounter
--- OUTSIDE RECORDS SUMMARY | 2024-03-18 15:49 | XMS_ITS | Encounter Summary ---
Author Organization [facility] Address [address] [place] [address] Care Team Providers Care Mutual Fund Sales Agent Name Role Phone Nadja Doan PASCALE Primary Care Provider [phone] Butch Yanes MD Unavailable Unavailable Encounter Details Date Type Department Care Team (Late st Contact Info) Description 11/18/2022 Lab Requisition [facility] Pathology & Laboratory Medicine - [address] [address] Peggy Steen MD [address] [place] [phone] Encounter for other general examination Social [...] 16, PCR Negative Negative 12/02/2022 13:53 EDT [facility] HPV18/45 RNA (HPV18/45) Negative Negative 12/02/2022 13:53 EDT [facility] Pap Test CERVIX UTERI STRUCTURE / Unknown 11/17/2022 9:15 EDT 11/28/2022 9:49 EDT us Peggy Steen MD MICROBIOLOGY - GENERAL ORDER SHITAL Final Result Performing Organization Address City/[facility] Co de Phone Number [facility] [address] [place] [address] * (ABNORMAL) HUMAN PAPILLOMAVIRUS (HPV) DETECTION-HIGH RISK TYPES (11/17/2022 9:15 EDT) HPV other High Risk types, PCR Positive( A) Negative 12/02/2022 14:12 EDT [facility] Comment:E6 OR E7 mRNA from o ne or more types of HPV types 16,18,31,33,35,39,45,51,52,56,58,59,66, and 68 is detected by manager furniture mediated amplification. High and intermediate risk HPV types are associated with most squamous intraepithelial lesions and cervical cancers. Pap Test CERVIX UTERI STRUCTURE / Unknown 11/17/2022 9:15 EDT 11/28/2022 9:49 EDT us Peggy Steen MD MICROBIOLOGY - GENERAL ORDER SHITAL Final Result Performing Organization Address City/[facility]/ZIP Co de Phone Number [facility] [address] [place] [address] * PAP TEST (11/17/2022 9:15 EDT) Specimens A. Cervix and/or Endocervix , ThinPrep Imaging System with Manual Evaluation 12/02/2022 14:12 [facility] Specimen Adequacy Satisfactory for Evaluation - transformation zone component present 12/02/2022 14:12 [facility] General Categorization Epithelial Cell Abnormality 12/02/2022 14:12 [facility] Descriptive Diagnosis Squamous Cell Abnormality - Atypical squamous cells, undetermined significance (ASC-US). 12/02/2022 14:12 [facility] Educational Comments [facility] recommends following the ASCCP's management guidelines which may be found at www.asccp.org 12/02/2022 14:12 [facility] Attestation By the signature below, the attending physician certifies that they have personally conducted a gross and/or microscopic examination of the described specimens and rendered or confirmed the above diagnosis. 12/02/2022 14:12 [facility] at 1412 Clinical History See below 12/03/19 14:12 [facility] HPV The result for the Human Papillomavirus (HPV) Detection-High Risk Types is Positive . E6 OR E7 mRNA from one or more types of HPV types 16,18,31,33,35,39 ,45,51,52,56,58,5 9,66, and 68 is detected by manager furniture mediated amplification. High and intermediate risk HPV types are associated with most squamous intraepithelial lesions and cervical cancers. Testing was performed on specimen [id number] and was resulted on 11/28/2022 1831 EDT by DAMION, LAB INSTRUMENT RESULTS IN 12/02/2022 14:12 [facility] Genotyping 16 & 18/45 The results for the HPV Genotypes 16 and 18/45 are Negative for the HPV16 RNA and Negative for the HPV18/45 RNA (HPV18/45). Testing was performed on specimen [id number] and was resulted on 12/02/2022 1353 EDT by DAMION, LAB INSTRUMENT RESULTS IN 12/02/2022 14:12 [facility] Performing Lab [facility] 12/02/2022 14:12 [facility] Scanned Images 12/02/2022 14:12 EDT [facility] Pap Test CERVIX UTERI STRUCTURE / Unknown 11/17/2022 9:15 EDT 11/18/2022 14:25 EDT us Peggy Steen MD PATHOLOGY ORDERABLES Final R esult [facility] [address] [place] [address] documented in this encounter Visit Diagnoses Diagnosis Encounter for other general examination documented in this encounter Care Teams Mutual Fund Sales Agent Relationship Specialty Start Date End Date Nadja Doan FNP [address] [place] [address] PCP - General 12/24/18 Butch Yanes MD [address] [place] [address] 12/24/18 documented as of this encounter
--- OUTSIDE RECORDS SUMMARY | 2024-03-18 15:49 | XMS_ITS | Encounter Summary ---
Author Organization [facility] Address [address] [place] [address] Care Team Providers Care Graduate Teacher Education Name Role Phone Nadja Doan PASCALE Primary Care Provider [phone] Butch Yanes MD Unavailable Unavailable Encounter Details Date Type Department Care Team (Late st Contact Info) Description 07/17/2020 Lab Requisition [facility] Pathology & Laboratory Medicine - [address] [phone] Outr Resulting Lab, Provider Social History Tobacco [...] Syphilis Serology Negative Negative 07/18/2020 10:59 EDT [facility] Blood VENOUS BLOOD / Unknown 07/16/2020 14:35 EDT 07/17/2020 16:00 EDT us Provider Outr Resulting Lab IMMUNOLOGY AND SEROL OGY ORDERABLES Final Result [facility] [address] [place] [address] documented in this encounter Visit Diagnoses Not on filedocumented in this encounter Care Teams Graduate Teacher Education Relationship Specialty Start Date End Date Nadja Doan FNP [address] [place] [address] PCP - General 12/24/18 Butch Yanes MD [address] [place] [address] 12/24/18 documented as of this encounter
--- OUTSIDE RECORDS SUMMARY | 2024-03-18 15:49 | XMS_ITS | Encounter Summary ---
Author Organization [facility] Address [address] [place] [address] Care Team Providers Care Veneer Layer Name Role Phone Nadja Doan PASCALE Primary Care Provider [phone] Butch Yanes MD Unavailable Unavailable Encounter Details Date Type Department Care Team (Late st Contact Info) Description 03/13/2021 Lab Requisition [facility] Pathology & Laboratory Medicine - [address] [address] Sonya Franco [address] [place] [address] [place] [address] Encounter for other general examination [...] PCR Positive( A) Negative 03/25/2021 15:31 EST [facility] Comment:E6 OR E7 mRNA from o ne or more types of HPV types 16,18,31,33,35,39,45,51,52,56,58,59,66, and 68 is detected by hogshead roller mediated amplification. High and intermediate risk HPV types are associated with most squamous intraepithelial lesions and cervical cancers. Papanicolaou smear specimen (specimen) CERVIX UTERI STRUCTURE / Unknown 03/13/2021 11:20 EST 03/23/2021 12:52 EST [facility] MICROBIOLOGY - GENERAL ORDERABLE S Final Result [facility] [address] [place] [address] * PAP TEST (03/13/2021 11:20 EST) Specimens A. Cervix and/or Endocervix , ThinPrep Imaging System with Manual Evaluation 03/25/2021 15:31 [facility] Specimen Adequacy Satisfactory for Evaluation - transformation zone component present 03/25/2021 15:31 [facility] General Categorization Epithelial Cell Abnormality 03/25/2021 15:31 [facility] Descriptive Diagnosis Squamous Cell Abnormality - Low grade squamous intraepithelial lesion (LSIL). 03/25/2021 15:31 [facility] Educational Comments [facility] recommends following ASCCP's 2012 Updated Consensus Guidelines for the Management of Abnormal Cervical Cancer Screening Tests and Cancer Precursors (JLGTD, 2013; 17(5):S1-S27). Consensus guidelines are available online at www.asccp.org. 03/25/2021 15:31 [facility] Attestation By the signature below, the attending physician certifies that they have personally conducted a gross and/or microscopic examination of the described specimens and rendered or confirmed the above diagnosis. 03/25/2021 15:31 [facility] at 1531 Clinical History See below 03/25/19 15:31 [facility] HPV The result for the Human Papillomavirus (HPV) Detection-High Risk Types is Positive . E6 OR E7 mRNA from one or more types of HPV types 16,18,31,33,35,39 ,45,51,52,56,58,5 9,66, and 68 is detected by hogshead roller mediated amplification. High and intermediate risk HPV types are associated with most squamous intraepithelial lesions and cervical cancers. Testing was performed on specimen [id number] and was resulted on 03/25/2021 1524 EST by [facility], LAB INSTRUMENT RESULTS IN 03/25/2021 15:31 [facility] Performing Lab [facility] 03/25/2021 15:31 [facility] Scanned Images 03/25/2021 15:31 [facility] Papanicolaou smear specimen (specimen) CERVIX UTERI STRUCTURE / Unknown 03/13/2021 11:20 EST 03/14/2021 12:09 EST us Sonya Franco PATHOLOGY ORDERABLES Final Resul t [facility] [address] [place] [address] * CHLAMYDIA/N. GONORRHOEAE AMPLIFIED RNA, THINPREP (03/13/2021 11:20 EST) Neisseria gonorrhoeae Result Negative Negative 03/14/2021 16:33 EST [facility] Chlamydia trachomatis Result Negative Negative 03/14/2021 16:33 [facility] Papanicolaou smear specimen (specimen) CERVIX UTERI STRUCTURE / Unknown 03/13/2021 11:20 EST 03/14/2021 8:54 EST us Sonya Franco MICROBIOLOGY - GENERAL ORDERABLE S Final Result [facility] [address] [place] [address] documented in this encounter Visit Diagnoses Diagnosis Encounter for other general examination documented in this encounter Care Teams Veneer Layer Relationship Specialty Start Date End Date Nadja Doan FNP [address] [place] [address] PCP - General 12/24/18 Butch Yanes MD [address] [place] [address] 12/24/18 documented as of this encounter
--- OUTSIDE RECORDS SUMMARY | 2024-03-18 15:49 | XMS_ITS | Encounter Summary ---
Author Organization [facility] Address [address] [place] [address] Care Team Providers Care Licensed Psychologist Name Role Phone Nadja Doan PASCALE Primary Care Provider [phone] Butch Yanes MD Unavailable Unavailable Encounter Details Date Type Department Care Team (Late st Contact Info) Description 03/13/2021 Lab Requisition [facility] Pathology & Laboratory Medicine - [address] [id number] Outr Resulting Lab, Provider Social History Tobacco [...] Surface Ag Negative Negative 03/14/2021 9:11 EST [facility] Blood VENOUS BLOOD / Unknown 03/13/2021 12:07 EST 03/13/2021 21:07 EST us Provider Outr Resulting Lab CHEMISTRY & BLOOD GA S ORDERABLES Final Result Performing Organization Address [facility]/ZIP Co de Phone Number [facility] [address] [place] [address] * HEPATITIS C AB W REFLEX TO HCV RNA BY PCR (03/13/2021 12:07 EST) Hep C Antibody Negative Negative 03/14/2021 9:47 EST [facility] Blood VENOUS BLOOD / Unknown 03/13/2021 12:07 EST 03/13/2021 21:07 EST us Provider Outr Resulting Lab CHEMISTRY & BLOOD GA S ORDERABLES Final Result Performing Organization Address City/[facility] de Phone Number [facility] [address] [place] [address] documented in this encounter Visit Diagnoses Not on filedocumented in this encounter Care Teams Licensed Psychologist Relationship Specialty Start Date End Date Nadja Doan FNP [address] [place] [address] PCP - General 12/24/18 Butch Yanes MD [address] [place] [address] 12/24/18 documented as of this encounter
--- OUTSIDE RECORDS SUMMARY | 2024-03-18 15:49 | XMS_ITS | Encounter Summary ---
Author Organization [facility] Address [address] [place] [address] Care Team Providers Care Student Services Director Name Role Phone Nadja Doan PASCALE Primary Care Provider [phone] Butch Yanes MD Unavailable Unavailable Encounter Details Date Type Department Care Team (Late st Contact Info) Description 07/17/2020 Lab Requisition [facility] Pathology & Laboratory Medicine - [address] [address] Outr Resulting Lab, Provider Social History Tobacco [...] 4th Generation Negative Negative 07/18/2020 10:21 EDT [facility] Comment: If acute HIV-1 infection is suspected in a high risk ??patient, submit plasma specimen for HIV-1 RNA quantitation test. Fourth Generation assay performed on the Siemens Centaur. Blood VENOUS BLOOD / Unknown 07/16/2020 14:35 EDT 07/17/2020 15:53 EDT us Provider Outr Resulting Lab IMMUNOLOGY AND SEROL OGY ORDERABLES Final Result [facility] [address] [place] [address] documented in this encounter Visit Diagnoses Not on filedocumented in this encounter Care Teams Student Services Director Relationship Specialty Start Date End Date Nadja Doan FNP [address] [place] [address] PCP - General 12/24/18 Butch Yanes MD [address] [place] [address] 12/24/18 documented as of this encounter
--- OUTSIDE RECORDS SUMMARY | 2024-03-18 15:49 | XMS_ITS | Continuity of Care Document ---
Author Organization [facility] Address [address] [place] [address] Support Name Relationship Address Phone MERLE JARRETT Personal Relationship Unknown Un available ELNANDOJENIFFER Personal Relationship Unknown Richelle vailable JOAQUIM MCCOY Personal Relationship Unknown Unavailable Encounter [facility] [id number] Date(s): 10/30/23 - 10/30/23 [facility] [address] [place], [place] [address] Encounter Diagnosis Left wrist injury(Discharge Diagnosis) - 10/30/23 Contusion of left wrist(Discharge Diagnosis) - 10/30/23 Discharge Disposition: Home or Self Care Attending Physician: Alva Henry PA-C Allergies, Adverse Reactions, [...] Active Banana Low criticality Mild Acti ve Wyandot Low criticality Mild Acti ve Dust Unable to assess criticality Unknown Unknown Active Assessment and Plan Extracted from: Title:[facility] Urgent Care Office Visit Note Author:Tim Henry PA-C Date:10/30/23 1.??Contusion of left wrist? ?S60.212A ??My initial interpretation??of the patient's x-ray is negative for fracture or bony abnormality.?? I will follow-up with her pending final radiology read. ??Discussed likely a contusion and irritation of the ulnar nerve, should heal with time and supportive care. ??Recommended rest from aggravating activities and use of a Velcro wrist splint.?? She can remove the wrist splint to perform gentle range of motion exercises. ??Encouraged elevation, ice, ewlh-zak-wjinglw analgesics as needed. ??Recommended recheck with PCP for any ongoing or worsening symptoms beyond 1 week ?? 2.??Left wrist injury??S69.92XA Ordered: XR Wrist Complete 3+ Views Left, 10/30/23 9:39:00 EDT, Routine, Reason: left wrist injury, pain along ulnar, previous ulnar styloid fracture, Transport Mode: Ambulatory, Left wrist injury, ABN Status: Not Required ?? Future Appointments Medications albuterol 1.25 mg/3 mL [...] TID, # 180 cap, 6 Refill(s), [facility]acy: [id number] Start Date: 12/10/22 Status: Ordered hydrOXYzine [...] BID, # 180 tab, 1 Refill(s), Pharmacy: [facility], 165.1, cm, 05/07/23 15:22:00 EDT, Height, [...] headache, # 90 tab, 1 Refill(s), Pharmacy: [facility], 165.1, cm, 03/05/23 7:56:00 EST, Height, 76.11, kg, 03/05/23 8:01:00 EST, Weight Dosing Start Date: 03/05/23 Status: Ordered Relpax 20 mg oral tablet 20 mg = 1 tab, Oral, Daily, PRN as needed for migraine headache, may repeat dose once in 2 hours, #12 tab, 1 Refill(s), Pharmacy: [facility], 165.1, cm, 08/06/23 7:59:00 EDT, Height, [...] recent to oldest [Reference Range]: 1 Temperature Tympanic [36.6-38.1 Deg C] 3 6.2 Deg C *LOW* (10/30/23 9:05 AM) Peripheral Pulse Rate [60-100 bpm] 84 bp m (10/30/23 9:05 AM) Blood Pressure [90-140/60-90 mmHg] 141/8 4mmHg *HI* (10/30/23 9:05 AM) Mean Arterial Pressure, Cuff [65-140 mmH g] 103 mmHg (10/30/23 9:05 AM) Weight 73.48 kg (10/30/23 9:05 AM) Weight Measured (lbs) 161.995 lb (10/30/23 9:05 AM) Weight Dosing 73.480 kg (10/30/23 9:05 AM) Social History Social History Type Response Tobacco Never tobacco user, Tobacco use status unknown Tobacco Use:. Sex Sex Representation Female (finding) Physician Outpatient Note * Alva Henry PA-C: PERFORM Event Display: Office Clinic Note Physician Authored Date: [id number] KIANA ISABEL I :1990 Age:33 years Sex:Female Visit Date:10/30/2023 Chief Complaint L wrist injury, 5 days ago, she reports getting worse since thursday, she has hx of broken wrist. she notes she was wearing her watch and hit it off the dresser. she ntoes increaing pain and tingling. History of Present Illness This is a 33-year-old female who presents for evaluation of a left wrist injury. ??Patient reports that she was??moving furniture in her 2-year-old's room??5 days ago??when she??slammed her left wrist??against the corner of a dresser.?? She was wearing a metal watch at the time.?? Since then she has had increasing pain along the ulnar aspect of the wrist. ??She is having some numbness, tingling, aching??into the top of her hand and radiating into her??fourth and fifth digit. ??She has a??previous history of an ulnar styloid fracture which was treated nonsurgically. Physical Exam Vitals & Measurements T:??36.2?C ??(Tympanic)?? HR:??84??(Peripheral)?? BP:??141/84?? SpO2:??100%?? WT:??73.48??kg?? Pain Score:??8?? General: Alert and oriented x 3, no acute distress, well-nourished and hydrated Heart: Regular rate and rhythm, no murmurs, rubs, gallops Lungs: Clear to auscultation without wheezes, rales, rhonchi Extremities: Examination of the left wrist reveals no gross deformity, edema, ecchymosis.?? There is tenderness??adjacent to the ulnar styloid. ??Patient is neurovascularly intact. ??Flexion and extension of the digits are intact.?? Duction, extension, supination and pronation of the??wrist intact.??No bony tenderness in the??radius. Assessment/Plan 1.??Contusion of left wrist??S60.212A ??My initial interpretation??of the patient's x-ray is negative for fracture or bony abnormality.??I will follow-up with her pending final radiology read. ??Discussed likely a contusion and irritation of the ulnar nerve, should heal with time and supportive care. ??Recommended rest from aggravating activities and use of a Velcro wrist splint.?? She can remove the wrist splint to perform gentle range of motion exercises. ??Encouraged elevation, ice, hqfe-anu-hwdhgym analgesics as needed. ??Recommended recheck with PCP for any ongoing or worsening symptoms beyond 1 week ?? 2.??Left wrist injury??S69.92XA Ordered: XR Wrist Complete 3+ Views Left, 10/30/23 9:39:00 EDT, Routine, Reason: left wrist injury, pain along ulnar, previous ulnar styloid fracture, Transport Mode: Ambulatory, Left wrist injury, ABN Status: Not Required ?? Patient Instructions Your x-ray today was negative for any fracture or bony abnormality at the site of concern.?? I willcontact you if radiology picks up on something that I am not seeing.?? Your symptoms??are likely related to??a bone contusion and irritation of??the ulnar nerve.?? You can trial the provided wrist splint today. ??I recommend avoiding overuse such as frequent bending, twisting, grasping with the wrist.?? Elevate and apply ice whenever possible. ??You can alternate Tylenol??and ibuprofen as this will help reduce inflammation, swelling around the nerve.?? If your symptoms or not improving in 1 week, would recommend recheck. ??Please follow-up as needed for any ongoing or worsening symptoms Problem List/Past Medical History Ongoing Anemia Anxiety Asthma Bilateral sacroiliitis Cervical spondylosis Insomnia Menstrual abnormality Migraine headache with aura Migraine with aura, not intractable, without status migrainosus Neck pain Neuroforaminal stenosis of cervical spine Paresthesias POTS (postural orthostatic tachycardia syndrome) Sleep apnea Historical No qualifying data Procedure/Surgical History ???Colonoscopy (2018)??? section (09/03/2015)???Extraction of wisdom tooth Medications albuterol 1.25 mg/3 mL (0.042%) inhalation solution amitriptyline 25 mg oral tablet Cartia XT 120 mg/24 hours oral capsule, extended release Deblitane 0.35 mg oral tablet gabapentin 100 [...] HFA 90 mcg/inh inhalation aerosol Allergies Banana Wyandot Symbicort vancomycin Cats??(Unknown) Dogs??(Unknown) Dust??(Unknown) Tape budesonide-formoterol??(Unknown) formoterol??(Unknown) formoterol-mometasone??(Unknown) Social History Alcohol Never Electronic Cigarette/Vaping Electronic Cigarette Use: Never, Unknown/not obtained. Tobacco Never tobacco user, Tobacco use status unknown Tobacco Use:. Family History Hypertension: Father. Electronically Signed on 10/30/2023 10:01 EDT Alva Henry PA-C Outpatient Summary note * Alva Henry PA-C: PERFORM Event Display: Ambulatory Patient Summary Authored Date: [id number] KIANA ISABEL Sarwat :1990 Age:33 years Sex:Female Visit Date:10/30/2023 Ambulatory Visit Instructions We would like to thank you for allowing us to assist you with your healthcare needs. The following includes patient education materials and information regarding your injury/illness. Your Next Steps Instructions From Your Care Team Your x-ray today was negative for any fracture or bony abnormality at the site of concern.?? I willcontact you if radiology picks up on something that I am not seeing.?? Your symptoms??are likely related to??a bone contusion and irritation of??the ulnar nerve.?? You can trial the provided wrist splint today. ??I recommend avoiding overuse such as frequent bending, twisting, grasping with the wrist.?? Elevate and apply ice whenever possible. ??You can alternate Tylenol??and ibuprofen as this will help reduce inflammation, swelling around the nerve.?? If your symptoms or not improving in 1 week, would recommend recheck. ??Please follow-up as needed for any ongoing or worsening symptoms Scheduled Future Appointments Thursday 9:30 AM EDT ?? Where: [facility] Respiratory Status: Confirmed Thursday 8:30 AM EDT ?? With: Patience Llamas MD Where: [facility] Pulmonology Status: Confirmed 2023 8:00 AM EDT ?? With: Mario Gomez MD Where: [facility] Neurology Status: Confirmed Thursday 8:00 AM EST ?? With: Kelsie Orozco, Where: [facility] Status: Confirmed Medications What How Much When [...] TABLET BY MOUTH AT BEDTIME ?? Unchanged dilTIAZem (Cartia XT 120 mg/ [...] Oral (given by mouth) Every day Unchanged metoprolol (metoprolol succinate 50 mg oral [...] EVERY DAY ?? Your Summary Your Diagnosis Contusion of left wrist Left wrist injury Problems Ongoing - Any problem that you are currently receiving treatment for. Anemia Anxiety Asthma Bilateral sacroiliitis Cervical spondylosis Insomnia Menstrual abnormality Migraine headache with aura Migraine with aura, not intractable, without status migrainosus Neck pain Neuroforaminal stenosis of cervical spine Paresthesias POTS (postural orthostatic tachycardia syndrome) Sleep apnea Your Care Team Attending Physician - Alva Henry PA-C Discharge Vitals Temperature??(Tympanic) 97.2 ??F (36.2 ??C) Heart Rate??(Peripheral) 84 Blood Pressure?? 141/84?? SpO2?? 100% Weight?? 162.02 lb (73.48 kg) Allergies Banana Wyandot Symbicort vancomycin Cats??(Unknown) Dogs??(Unknown) Dust??(Unknown) Tape budesonide-formoterol??(Unknown) formoterol??(Unknown) formoterol-mometasone??(Unknown) Electronically Signed on: 10/30/2023 10:00 EDTSigned by:EP Patient Care team information Care Team Related Persons Name: JOAQUIM MCCOY Name: JENIFFER GALLEGOS Name: MERLE JARRETT Insurance Providers Guarantor name: KIANA Sarwat ISABEL Health Plan Information #: 1 Payer: [place] Member Number: [id number] Policy Number: NA Health Plan Information #: 2 Payer: [place] Member Number: [id number] Policy Number: NA
--- OUTSIDE RECORDS SUMMARY | 2024-03-18 15:49 | XMS_ITS | Encounter Summary ---
Author Organization [facility] Address [address] [place] [address] Care Team Providers Care Core Man Name Role Phone Nadja Doan PASCALE Primary Care Provider [phone] Butch Yanes MD Unavailable Unavailable Encounter Details Date Type Department Care Team (Late st Contact Info) Description 01/25/2021 Lab Requisition [facility] Pathology & Laboratory Medicine - [address] [id number] Outr Resulting Lab, Provider Social History Tobacco [...] 01/25/2021 11:1 0 EST 01/25/2021 21:31 EST us Provider Outr Resulting Lab MICROBIOLOGY - GENER AL ORDERABLES Final Result Performing Organization Address City/[facility] Co de Phone Number [facility] [address] [place] [address] * COVID-19 TESTING (01/25/2021 11:10 EST) COVID-19 rt-PCR Result Negative Negative 01/26/2021 2:17 EST [facility] Comment: This test has [...] history, and epidemiological information. Performed on the Stellarrayher Fusion instrument Performing Lab [place] [facility] 01/26/2021 2:17 EST [facility] Swab 01/25/2021 11:1 0 EST 01/25/2021 21:31 EST us Provider Outr Resulting Lab MICROBIOLOGY - GENER AL ORDERABLES Final Result Performing Organization Address City/[facility]/ZIP Co de Phone Number [facility] [address] [place] [address] documented in this encounter Visit Diagnoses Not on filedocumented in this encounter Care Teams Core Man Relationship Specialty Start Date End Date Nadja [place] [address] PCP - General 12/24/18 Butch Yanes MD [address] [place] [address] 12/24/18 documented as of this encounter
--- OUTSIDE RECORDS SUMMARY | 2024-03-18 15:49 | XMS_ITS | Continuity of Care Document ---
Author Organization [facility] Ambulatory Clinics Address [address] [place] [address] Care Team Providers Care Hog Confinement System Manager Name Role Phone KEVEN PURI DNP Primary Care Physician Encounter [facility] NBR [id number] Date(s): 03/04/24 - 03/04/24 [facility] Ambulatory Clinics [address] [place], [place] [address] Encounter Diagnosis Crush injury of right foot(Discharge Diagnosis) - 03/04/24 Discharge Disposition: Home or Self Care Attending Physician: Alva Henry PA-C Encounter Type: Clinic Allergies, Adverse Reactions, Alerts Substance Criticality Severity Reaction Reaction Severity Status vancomycin High criticality Moderate Swelling of oral cavity structure Fever Active Dust Low criticality Mild Rash Acti ve budesonide-formote rol Low criticality Mild Rash Hives Active formoterol-mometas one Low criticality Mild Hives Rash Active Cats Low criticality Mild Rash Acti ve Dogs Low criticality Mild Rash Acti ve Tape Low criticality Mild Skin irritation Active Banana Low criticality Mild stomsch upset Active [place] Low criticality Mild Stomach upset Active Assessment and Plan Extracted from: Title:[facility] Visit Note Author:Tim Henry PA-C Date:03/04/24 1.??Crush injury of right fo ot??S97.81XA ??X-rays negative??for fracture or bony abnormality.?? Discussed likely a contusion/soft tissue injury that should heal with time and supportive care. ??Recommended rest from aggravating activities, frequently elevating and icing the foot.?? Alternate Tylenol and ibuprofen as needed for discomfort. ??Advised to follow-up with PCP for any ongoing or worsening symptoms despite??supportive care. ??She agrees with plan will follow-up as needed Future Appointments Immunizations Given and Recorded Vaccine [...] [36-38 Deg C ] 36.2 Deg C (03/04/24 8:59 AM) Peripheral Pulse Rate [60-100 bpm] 88 bp m (03/04/24 8:59 AM) Respiratory Rate [12-24 br/min] 16 br/mi n (03/04/24 8:59 AM) Blood Pressure [90-120/60-80 mmHg] 111/6 5mmHg (03/04/24 8:59 AM) Mean Arterial Pressure, Cuff [65-140 mmH g] 80 mmHg (03/04/24 8:59 AM) Social History Social History Type Response [...] MRI Safety Implantable Status Assigning Authority Unknown [id number] Unknown Unknown 08/15/25 Unknown Unknown Active Unknown Unknown Unknown [id number] Unknown 05/05/28 Unknown Unknown Active Unknown Unknown Unknown [id number] Unknown 12/25/27 Unknown Unknown Active Unknown Unknown Unknown M1L2 024 Unknown Unknown Unknown Unknown Active Unknown Unknown Unknown M1L2 4 Unknown Unknown Unknown Unknown Active Unknown Physician Outpatient Note * Alva Henry PA-C: PERFORM Event Display: Office Clinic Note Physician Authored Date: [id number] KIANA ISABEL I :1990 Age:33 years Sex:Female Visit Date:03/04/2024 Primary Care Physician: KEVEN PURI DNP Chief Complaint Last night dropped bed frame on RIGHT foot. really heavy. Pain top of foot radiating to great toeand up ankle. Some numbness in great toe. History of Present Illness This is a 33-year-old female who presents for evaluation of right foot injury. ??Patient reports that last night she dropped a bed frame on her right foot.?? She has had pain over the top of her footthat is radiating to the great toe and up to her ankle since. ??No direct trauma to the ankle. ??She has been able to bear weight but notes it is painful. ??She feels slightly numb in the great toe. ??No prior injury to this foot. Physical Exam Vitals & Measurements T:??36.2?C ??(Temporal Artery)?? HR:??88??(Peripheral)?? RR:??16?? BP:??111/65?? SpO2:??99%?? Pain Score:??9.0?? General: Alert and oriented x 3, no acute distress, well-nourished and hydrated Heart: Regular rate and rhythm, no murmurs, rubs, gallops Extremities: Examination of the right??lower extremity reveals faint ecchymosis and mild edema overthe dorsum of the foot,??localized over the first and second metatarsals.?? There are no crepitations or obvious bony deformities.?? Foot is soft and compressible. ??There is no bony tenderness in the ankle. ??Dorsiflexion, plantarflexion, eversion and inversion of the foot intact.?? Cap refill is less than 2 seconds. ??No cyanosis or pallor.?? Flexion and extension of the first digit??slightly limited secondary to pain Assessment/Plan 1.??Crush injury of right foot??S97.81XA ??X-rays negative??for fracture or bony abnormality.?? Discussed likely a contusion/soft tissue injury that should heal with time and supportive care. ??Recommended rest from aggravating activities, frequently elevating and icing the foot.?? Alternate Tylenol and ibuprofen as needed for discomfort.??Advised to follow-up with PCP for any ongoing or worsening symptoms despite??supportive care. ??She agrees with plan will follow-up as needed Problem List/Past Medical History Ongoing Anemia Anxiety [...] structure, Fever) Banana??(stomsch upset) Cats??(Rash) Dogs??(Rash) Dust??(Rash) [place]??(Stomach upset) Tape??(Skin irritation) budesonide-formoterol??(Rash, Hives) formoterol-mometasone??(Hives, Rash) Social History Alcohol Never Electronic Cigarette/Vaping Electronic Cigarette Use: Never, Unknown/not obtained. Substance Use Never Tobacco Never tobacco user, Tobacco use status unknown Tobacco Use:. Family History Hypertension: Father. Immunizations Vaccine Date Status influenza virus vaccine, inactivated 12/16/2023 Given Electronically Signed on 03/04/2024 09:52 EST Alva Henry PA-C Patient Care team information Care Team Personnel Name: KEVEN PURI DNP Position: No Access Member Role: Primary Care Physician Address: [address] Telecom: Care Team Related Persons Name: JOAQUIM MCCOY Name: JENIFFER GALLEGOS Name: MERLE JARRETT Insurance Providers Guarantor name: KIANA Sarwat ISABEL Health Plan Information #: 1 Payer: [place] Member Number: [id number] Policy Number: NA Group Number: NA Health Plan Information #: 2 Payer: [place] Member Number: [id number] Policy Number: NA Group Number: NA
--- OUTSIDE RECORDS SUMMARY | 2024-03-18 15:49 | XMS_ITS | Encounter Summary ---
Author Organization [facility] Address [address] [place] [address] Care Team Providers Care Memorial Designer Name Role Phone Nadja Doan PASCALE Primary Care Provider [phone] Butch Yanes MD Unavailable Unavailable Encounter Details Date Type Department Care Team (Late st Contact Info) Description 11/13/2023 Lab Requisition [facility] Pathology & Laboratory Medicine - [address] [address] Peggy Steen MD [address] [place] [id number] Encounter for other general examination Social [...] Date/Time Associated Diagnosis Comments PAP TEST Today 11/12/2023 13:36 EDT Encounter for other general examination HPV DNA DETECTION WITH GENOTYPING, PCR Today 11/12/2023 13:36 EDT Encounter for other general examination documented in this encounter Results * (ABNORMAL) HPV DNA DETECTION WITH GENOTYPING, PCR (11/12/2023 13:36 EDT) HPV High Risk type 16, PCR Negative Negative 11/26/2023 15:42 EDT [facility] HPV High Risk type 18, PCR Negative Negative 11/26/2023 15:42 EDT [facility] HPV other High Risk types, PCR Positive(A) Negative 11/26/2023 15:42 EDT [facility] Comment: Positive for one of the following Other High Risk HPV types: ??31,33, 35, 39, 45, 51, 52, 56, 58, 59, 66 and 68. Pap Test CERVIX UTERI STRUCTURE / Unknown 11/12/2023 13:36 EDT 11/25/2023 12:49 EDT us Peggy Steen MD MICROBIOLOGY - GENERAL ORDER SHITAL Final Result [facility] [address] [place] [id number] * PAP TEST (11/12/2023 13:36 EDT) Specimens A. Cervix and/or Endocervix , ThinPrep Imaging System with Manual Evaluation 11/26/2023 15:42 EDT [facility] Specimen Adequacy Satisfactory for Evaluation - transformation zone component present 11/26/2023 15:42 EDT [facility] General Categorization Negative for intraepithelial lesion or malignancy 11/26/2023 15:42 EDT [facility] Attestation . 11/26/2023 15:42 [facility] at 1542 Clinical History See below 11/26/19 15:42 EDT [facility] Performing Lab [facility] 11/26/2023 15:42 EDT [facility] Scanned Images 11/26/2023 15:42 EDT [facility] HPV High Risk type 16, PCR Negative 11/26/2023 15:42 EDT [facility] HPV High Risk type 18, PCR Negative 11/26/2023 15:42 EDT [facility] HPV Other High Risk Types, PCR Positive Positive for one of the following Other High Risk HPV types: 31,33, 35, 39, 45, 51, 52, 56, 58, 59, 66 and 68. 11/26/2023 15:42 EDT [facility] Pap Test CERVIX UTERI STRUCTURE / Unknown 11/12/2023 13:36 EDT 11/13/2023 13:12 EDT us Peggy Steen MD PATHOLOGY ORDERABLES Final R esult [facility] [address] [place] [address] documented in this encounter Visit Diagnoses Diagnosis Encounter for other general examination documented in this encounter Care Teams Memorial Designer Relationship Specialty Start Date End Date Nadja Doan FNP [address] [place] [address] PCP - General 12/24/18 Butch Yanes MD [address] [place] [address] 12/24/18 documented as of this encounter
--- OUTSIDE RECORDS SUMMARY | 2024-03-18 15:49 | XMS_ITS | Encounter Summary ---
Author Organization [facility] Address [address] [place] [address] Care Team Providers Care [employer] Principal Name Role Phone Nadja Doan PASCALE Primary Care Provider [phone] Butch Yanes MD Unavailable Unavailable Encounter Details Date Type Department Care Team (Late st Contact Info) Description 07/17/2020 Lab Requisition [facility] Pathology & Laboratory Medicine - [address] [id number] Outr Resulting Lab, Provider Social History Tobacco [...] Surface Ag Negative Negative 07/18/2020 9:31 EDT [facility] Blood VENOUS BLOOD / Unknown 07/16/2020 14:35 EDT 07/17/2020 15:53 EDT us Provider Outr Resulting Lab CHEMISTRY & BLOOD GA S ORDERABLES Final Result Performing Organization Address [facility]/ZIP Co de Phone Number [facility] [address] [place] [address] * HEPATITIS C AB W REFLEX TO HCV RNA BY PCR (07/16/2020 14:35 EDT) Hep C Antibody Negative Negative 07/18/2020 10:43 EDT [facility] Blood VENOUS BLOOD / Unknown 07/16/2020 14:35 EDT 07/17/2020 16:00 EDT us Provider Outr Resulting Lab CHEMISTRY & BLOOD GA S ORDERABLES Final Result Performing Organization Address [facility] de Phone Number [facility] [address] [place] [address] documented in this encounter Visit Diagnoses Not on filedocumented in this encounter Care Teams [employer] Principal Relationship Specialty Start Date End Date Nadja Doan FNP [address] [place] [address] PCP - General 12/24/18 Butch Yanes MD [address] [place] [address] 12/24/18 documented as of this encounter
--- OUTSIDE RECORDS SUMMARY | 2024-03-18 15:49 | XMS_ITS | Referral Summary ---
Author Organization [facility] Address [address] [place] [address] Care Team Providers Care Reviewer Sales Name Role Phone Nadja Doan PASCALE Primary Care Provider [phone] Butch Yanes MD Unavailable Unavailable Allergies Active [...] C Antibody Negative Negative 03/14/2021 9:47 EST [facility] Blood VENOUS BLOOD / Unknown 03/13/2021 12:07 EST 03/13/2021 21:07 EST us Provider Outr Resulting Lab CHEMISTRY & BLOOD GA S ORDERABLES Final Result Performing Organization Address City/State/[facility] Co de Phone Number [facility] [address] [place] [address] from Last 3 Months or Most Recently Relevant to Health Maintenance Insurance [place] Member Subscriber Plan / Payer (Ef fective 2019-Present) Name:Miya Merritt Relation to Subscriber:Self Name:Miya Merritt Payer ID:[id number] ([facility]) Group ID:[id number] Type:Cigna Address: [place] [address] CIGNA Advance Directives For more information, please contact: [phone] * Full Code (Latest Code Status on File) Date Activated Date Inactivated Comments 05/25/2009 17:26 06/08/2009 17:01 * Full Code Date Activated Date Inactivated Comments 05/24/2009 20:57 05/25/2009 17:26 Care Teams Reviewer Sales Relationship Specialty Start Date End Date Nadja Doan FNP [address] [place] [address] PCP - General 12/24/18 Butch Yanes MD [address] [place] [address] 12/24/18
--- OUTSIDE RECORDS SUMMARY | 2024-03-18 15:49 | XMS_ITS | Continuity of Care Document ---
Author Organization [facility] Ambulatory Clinics Address [address] [place] [address] Care Team Providers Care Caisson Worker Name Role Phone KEVEN PURI DNP Primary Care Physician Encounter [facility] NBR [id number] Date(s): 03/07/24 - 03/07/24 [facility] Ambulatory Clinics [address] [place], [place] [address] Discharge Disposition: Home Encounter Type: Between Visit Allergies, Adverse Reactions, Alerts Substance Criticality Severity Reaction Reaction Severity Status vancomycin High criticality Moderate Swelling of oral cavity structure Fever Active budesonide-formote rol Low criticality Mild Rash Hives Active formoterol-mometas one Low criticality Mild Hives Rash Active Cats Low criticality Mild Rash Acti ve [place] Low criticality Mild Stomach upset Active Dogs Low criticality Mild Rash Acti ve Tape Low criticality Mild Skin irritation Active Banana Low criticality Mild stomsch upset Active Dust Low criticality Mild Rash [...] MRI Safety Implantable Status Assigning Authority Unknown [id number] Unknown Unknown 08/15/25 Unknown Unknown Active Unknown Unknown Unknown [id number] Unknown 05/05/28 Unknown Unknown Active Unknown Unknown Unknown [id number] Unknown 12/25/27 Unknown Unknown Active Unknown Unknown Unknown M1L2 024 Unknown Unknown Unknown Unknown Active Unknown Unknown Unknown M1L2 4 Unknown Unknown Unknown Unknown Active Unknown Patient Care team information Care Team Personnel Name: KEVEN PURI DNP Position: No Access Member Role: Primary Care Physician Address: [address] Telecom: Care Team Related Persons Name: JOAQUIM MCCOY Name: JENIFFER GALLEGOS Name: MERLE JARRETT Insurance Providers Guarantor name: KIANA Fam [facility] Information #: 1 Payer: [place] Member Number: NA Policy Number: NA Group Number: NA
--- OUTSIDE RECORDS SUMMARY | 2024-03-18 15:49 | XMS_ITS | Encounter Summary ---
Author Organization [facility] Address [address] [place] [address] Care Team Providers Care Car Shakeout Operator Name Role Phone Nadja Doan PASCALE Primary Care Provider [phone] Butch Yanes MD Unavailable Unavailable Encounter Details Date Type Department Care Team (Late st Contact Info) Description 07/17/2020 Lab Requisition [facility] Pathology & Laboratory Medicine - [address] [phone] Outr Resulting Lab, Provider Social History Tobacco [...] gonorrhoeae Result Negative Negative 07/18/2020 14:00 EDT [facility] Chlamydia trachomatis Result Negative Negative 07/18/2020 14:00 EDT [facility] Urine URINE / Unknown 07/16/2020 1 4:35 EDT 07/17/2020 16:30 EDT Narrative [facility] - 07/18/2020 14:00 EDT A first catch urine specimen is acceptable for detection of Gonorrhea and Chlamydia, but might detect up to 10% fewer infections when compared with vaginal and endocervical swab samples. us Provider Outr Resulting Lab MICROBIOLOGY - GENER AL ORDERABLES Final Result [facility] [address] [place] [address] documented in this encounter Visit Diagnoses Not on filedocumented in this encounter Care Teams Car Shakeout Operator Relationship Specialty Start Date End Date Nadja Doan FNP [address] [place] [address] PCP - General 12/24/18 Butch Yanes MD [address] [place] [address] 12/24/18 documented as of this encounter
--- OUTSIDE RECORDS SUMMARY | 2024-03-18 15:49 | XMS_ITS | Encounter Summary ---
Author Organization [facility] Address [address] [place] [address] Care Team Providers Care Tool Carrier Name Role Phone Nadja Doan PASCALE Primary Care Provider [phone] Butch Yanes MD Unavailable Unavailable Encounter Details Date Type Department Care Team (Late st Contact Info) Description 09/08/2020 Lab Requisition [facility] Pathology & Laboratory Medicine - [address] [id number] Outr Resulting Lab, Provider Social History Tobacco [...] Unknown 09/08/2020 9:00 EDT 09/08/2020 21:17 EDT us Provider Outr Resulting Lab MICROBIOLOGY - GENER AL ORDERABLES Final Result [facility] [address] [place] [address] * COVID-19 TESTING (09/08/2020 9:00 EDT) COVID-19 rt-PCR Result Negative Negative 09/09/2020 10:55 EDT [facility] Comment: This test has not [...] performed using the swati SARS-CoV-2 assay ([employer] on the Swati 6800 System Performing Lab Swati 68[address] [facility] 09/09/2020 10:55 EDT [facility] Swab 09/08/2020 9:00 EDT 09/08/2020 21:17 EDT us Provider Outr Resulting Lab MICROBIOLOGY - GENER AL ORDERABLES Final Result [facility] [address] [place] [address] documented in this encounter Visit Diagnoses Not on filedocumented in this encounter Care Teams Tool Carrier Relationship Specialty Start Date End Date Nadja Doan FNP [address] [place] [address] PCP - General 12/24/18 Butch Yanes MD [address] [place] [address] 12/24/18 documented as of this encounter
--- OUTSIDE RECORDS SUMMARY | 2024-03-18 15:49 | XMS_ITS | Encounter Summary ---
Author Organization [facility] Address [address] [place] [address] Care Team Providers Care Manager Animation Name Role Phone Nadja Doan Primary Care Provider [phone] Butch Yanes MD Unavailable Unavailable Encounter Details Date Type Department Care Team (Latest Contact Info) Description 01/25/2020 Lab Requisition [facility] Pathology & Laboratory Medicine - [address] [address] Nadja Doan FNP [address] [place] [address] Encounter for general adult medical [...] Risk types, PCR Negative Negative 02/07/2020 7:08 [facility] Comment:No E6 or E7 mRNA is detected from HPV types 16,18,31,33,35,39,45,51,52,56,58,59,66, and 68 by coat baster mediated amplification. Papanicolaou smear specimen (specimen) CERVIX UTERI STRUCTURE / Unknown 01/24/2020 9:30 EST 01/31/2020 10:39 EST Nadja Doan NEUROLOGY PHYSICIAN ASSISTANT MICROBIOLOGY - GENERAL ORDERAB LES Final Result [facility] [address] [place] [address] * PAP TEST (01/24/2020 9:30 EST) Specimens A. Cervix and/or Endocervix , ThinPrep Imaging System with Manual Evaluation 02/07/2020 7:08 [facility] Specimen Adequacy Satisfactory for Evaluation - transformation zone component present 02/07/2020 7:08 [facility] General Categorization Epithelial Cell Abnormality 02/07/2020 7:08 [facility] Descriptive Diagnosis Squamous Cell Abnormality - Low grade squamous intraepithelial lesion (LSIL). 02/07/2020 7:08 [facility] Educational Comments [facility] recommends following ASCCP's 2012 Updated Consensus Guidelines for the Management of Abnormal Cervical Cancer Screening Tests and Cancer Precursors (JLGTD, 2013; 17(5):S1-S27). Consensus guidelines are available online at www.asccp.org. 02/07/2020 7:08 [facility] Attestation By the signature below, the attending physician certifies that they have personally conducted a gross and/or microscopic examination of the described specimens and rendered or confirmed the above diagnosis. 02/07/2020 7:08 [facility] at 0708 Clinical History See below 02/07/20 20 7:08 [facility] HPV The result for the Human Papillomavirus (HPV) Detection-High Risk Types is Negative. No E6 or E7 mRNA is detected from HPV types 16,18,31,33,35,39 ,45,51,52,56,58,5 9,66, and 68 by coat baster mediated amplification.Gena ting was performed on specimen [id number] and was resulted on 02/07/2020 0704 EST by DAMION, LAB INSTRUMENT RESULTS IN 02/07/2020 7:08 [facility] Performing Lab [facility] 02/07/2020 7:08 [facility] Scanned Images 02/07/2020 7:08 [facility] Papanicolaou smear specimen (specimen) CERVIX UTERI STRUCTURE / Unknown 01/24/2020 9:30 EST 01/25/2020 12:19 EST Nadja ASHRAF PATHOLOGY ORDERABLES Final Res ult [facility] [address] [place] [address] documented in this encounter Visit Diagnoses Diagnosis Encounter for general adult medical examination without abnormal findings Unspecified general medical examination Encounter for screening for malignant neoplasm of cervix Screening for malignant neoplasm of the cervix Encounter for screening for human papillomavirus (HPV) Special screening examination for human papillomavirus (HPV) documented in this encounter Care Teams Manager Animation Relationship Specialty Start Date End Date Nadja Doan FNP [address] [place] [address] PCP - General 12/24/18 Butch Yanes MD [address] [place] [address] 12/24/18 documented as of this encounter
--- OUTSIDE RECORDS SUMMARY | 2024-03-18 15:49 | XMS_ITS | Encounter Summary ---
Author Organization [facility] Address [address] [place] [address] Care Team Providers Care Petroleum Inspector Supervisor Name Role Phone Nadja Doan PASCALE Primary Care Provider [phone] Butch Yanes MD Unavailable Unavailable Encounter Details Date Type Department Care Team (Late st Contact Info) Description 02/23/2020 Lab Requisition [facility] Pathology & Laboratory Medicine - [address] [address] Outr Resulting Lab, Provider Social History Tobacco [...] Unknown 02/22/2020 8:05 EST 02/24/2020 8:30 EST us Provider Outr Resulting Lab MICROBIOLOGY - GENER AL ORDERABLES Final Result Performing Organization Address City/[facility] Co de Phone Number [facility] [address] [place] [address] * COVID-19 TESTING (02/22/2020 8:05 EST) COVID-19 rt-PCR Result Negative Negative 02/24/2020 16:30 EST [facility] Comment: This test has [...] history, and epidemiological information. Performed on the Wanderaher Fusion instrument Performing Lab [place] [facility] Lab 02/24/2020 16:30 EST [facility] Swab 02/22/2020 8:05 EST 02/24/2020 8:30 EST us Provider Outr Resulting Lab MICROBIOLOGY - GENER AL ORDERABLES Final Result Performing Organization Address City/[facility]/ZIP Co de Phone Number [facility] [address] [place] [address] documented in this encounter Visit Diagnoses Not on filedocumented in this encounter Care Teams Petroleum Inspector Supervisor Relationship Specialty Start Date End Date Nadja [place] [address] PCP - General 12/24/18 Butch Yanes MD [address] [place] [address] 12/24/18 documented as of this encounter
--- OUTSIDE RECORDS SUMMARY | 2024-03-18 15:49 | XMS_ITS | Encounter Summary ---
Author Organization [facility] Address [address] [place] [address] Care Team Providers Care Rn Cvicu Name Role Phone Nadja Doan PASCALE Primary Care Provider Butch Yanes MD Unavailable Unavailable Encounter Details Date Type Department Care Team (Late st Contact Info) Description 03/13/2021 Lab Requisition [facility] Pathology & Laboratory Medicine - [address] [id number] Outr Resulting Lab, Provider Social History Tobacco [...] 4th Generation Negative Negative 03/14/2021 10:12 EST [facility] Comment:If acute HIV-1 infec tion is suspected in a high risk patient, submit plasma specimen for HIV-1 RNA quantitation test. Blood VENOUS BLOOD / Unknown 03/13/2021 12:07 EST 03/13/2021 21:07 EST Narrative [facility] - 03/14/2021 10:12 EST Fourth Generation assay performed on the Siemens Espion Limitedaur XPT. us Provider Outr Resulting Lab IMMUNOLOGY AND SEROL OGY ORDERABLES Final Result [facility] [address] [place] [address] documented in this encounter Visit Diagnoses Not on filedocumented in this encounter Care Teams Rn Cvicu Relationship Specialty Start Date End Date Nadja Doan FNP [address] [place] [address] PCP - General 12/24/18 Butch Yanes MD [address] [place] [address] 12/24/18 documented as of this encounter
--- OUTSIDE RECORDS SUMMARY | 2024-03-18 15:49 | XMS_ITS | Continuity of Care Document ---
Author Organization [facility] Address [address] [place] [address] Care Team Providers Care Advanced Solutions Architect Name Role Phone KEVEN PURI DNP Primary Care Physician Encounter [facility] NBR [id number] Date(s): 03/08/24 - 03/08/24 [facility] Ambulatory Clinics [address] [place], [place] [address] Encounter Diagnosis S/P cervical spinal fusion(Discharge Diagnosis) - 03/08/24 Discharge Disposition: Home or Self Care Encounter Type: Clinic Allergies, Adverse Reactions, Alerts [...] Banana Low criticality Mild stomsch upset Active Bastrop Low criticality Mild Stomach upset Active Dust Low criticality Mild Rash Acti ve Assessment and Plan Extracted from: Title:Office Visit Note Author:ALPHONSO Mcdowell Date:03/08/24 1.??S/P cervical spinal fusi on??Z98.1 The patient is 7 weeks postop from her??cervical fusion.?? She is doing very well postoperatively with resolution of her radicular pain and paresthesias and improvement in her neck pain. ??She does have some residual pain in the??neck and upper back region which??is likely muscular in nature and should improve with time.?? She does not feel the need for physical therapy but will reach out if??she changes her mind or has any questions or concerns.?? Will plan to follow-up in 2 months. She is also struggling with persistent low back pain that is suspected to be due to an SI joint problem.?? She will be establishing with Dr. Jordan in the near future for consideration of injections. Plan: Follow-up in 2 months or sooner if needed. ? Future Appointments [...] [36-38 Deg C ] 36.1 Deg C (03/08/24 2:36 PM) Apical Heart Rate [60-100 bpm] 80 bpm (03/08/24 2:36 PM) Blood Pressure [90-120/60-80 mmHg] 110/7 8mmHg (03/08/24 2:36 PM) Mean Arterial Pressure, Cuff [65-140 mmH g] 89 mmHg (03/08/24 2:36 PM) Social History Social History Type Response [...] MRI Safety Implantable Status Assigning Authority Unknown [id number] Unknown Unknown 08/15/25 Unknown Unknown Active Unknown Unknown Unknown [id number] Unknown 05/05/28 Unknown Unknown Active Unknown Unknown Unknown [id number] Unknown 12/25/27 Unknown Unknown Active Unknown Unknown Unknown M1L2 024 Unknown Unknown Unknown Unknown Active Unknown Unknown Unknown M1L2 4 Unknown Unknown Unknown Unknown Active Unknown Physician Outpatient Note * Atiya Reno, JOSE-PASCALE: PERFORM Event Display: Office Clinic Note Physician Authored Date: [id number] KIANA ISABEL Sarwat :1990 Age:33 years Sex:Female Visit Date:03/08/2024 Primary Care Physician: KEVEN PURI DNP Chief Complaint POV #3 Additional Information Patient states things are going good, states there is a little muscle soreness from the back of herneck to in between her shoulder blades. other than that, denies any new concerns. History of Present Illness The patient presents for postoperative visit.?? She underwent ACDF C4-5 and C5-[address] Funez on 01/18/24.?She is doing well. ??She has some discomfort that she describes as muscular pain in the lower portion of her neck and upper back region but??overall this is manageable and she only takes ibuprofen as needed and this seems to help.?? She states that during the day when she is active and moving this really does not bother her it seems to be when she stops moving.?? Her radicular pain and paresthesias have resolved. ??She has??had improvement in??her chronic headaches as well which are??happening significantly less frequently at this point.?? She states that??her discomfort in the low back region that is suspected to be due to??a sacroiliitis has increased some since the surgery.?? She will be establishing with Dr. Jordan in the near future. ?? Review of Systems Relevant ROS discussed in HPI Physical Exam Vitals & Measurements T:??36.1?C ??(Temporal Artery)?? HR:??80??(Apical)?? BP:??110/78?? SpO2:??97%?? Pain Score:??2?? GENERAL:?General Appearance:?pleasant, age appropriate in no apparent distress.?? ENT: ? The voice sounds normal.?? The patient is speaking in full sentences. SKIN: ?Wound: The cervical wound is flat and dry. Assessment/Plan 1.??S/P cervical spinal fusion??Z98.1 The patient is 7 weeks postop from her??cervical fusion.?? She is doing very well postoperatively with resolution of her radicular pain and paresthesias and improvement in her neck pain. ??She does have some residual pain in the??neck and upper back region which??is likely muscular in nature and should improve with time.?? She does not feel the need for physical therapy but will reach out if??shechanges her mind or has any questions or concerns.?? Will plan to follow- up in 2 months. She is also struggling with persistent low back pain that is suspected to be due to an SI joint problem.?? She will be establishing with Dr. Jordan in the near future for consideration of injections. Plan: Follow-up in 2 months or sooner if needed. ?? Problem List/Past [...] structure, Fever) Banana??(stomsch upset) Cats??(Rash) Dogs??(Rash) Dust??(Rash) Bastrop??(Stomach upset) Tape??(Skin irritation) budesonide-formoterol??(Rash, Hives) formoterol-mometasone??(Hives, Rash) Social History Alcohol Never Electronic Cigarette/Vaping Electronic Cigarette Use: Never, Unknown/not obtained. Substance Use Never Tobacco Never tobacco user, Tobacco use status unknown Tobacco Use:. Family History Hypertension: Father. Immunizations Vaccine Date Status influenza virus vaccine, inactivated 12/16/2023 Given Electronically Signed on 03/08/2024 14:47 EST WALT Mcdowell Patient Care team information Care Team Personnel Name: KEVEN PURI DNP Position: No Access Member Role: Primary Care Physician Address: [address] Telecom: Care Team Related Persons Name: JOAQUIM MCCOY Name: JENIFFER GALLEGOS Name: MERLE JARRETT Insurance Providers Guarantor name: KIANA Fam [facility] Plan Information #: 1 Payer: [place] Member Number: [id number] Policy Number: NA Group Number: NA Health Plan Information #: 2 Payer: [place] Member Number: [id number] Policy Number: NA Group Number: NA
--- OUTSIDE RECORDS SUMMARY | 2024-03-18 15:49 | XMS_ITS | Encounter Summary ---
Author Organization [facility] Address [address] [place] [address] Care Team Providers Care Management Accounts Manager Name Role Phone Nadja Doan PASCALE Primary Care Provider [phone] Butch Yanes MD Unavailable Unavailable Encounter Details Date Type Department Care Team (Late st Contact Info) Description 03/07/2021 Lab Requisition [facility] Pathology & Laboratory Medicine - [address] [address] Outr Resulting Lab, Provider Social History Tobacco [...] 03/07/2021 10:0 5 EST 03/07/2021 22:59 EST us Provider Outr Resulting Lab MICROBIOLOGY - GENER AL ORDERABLES Final Result [facility] [address] [place] [address] * COVID-19 TESTING (03/07/2021 10:05 EST) COVID-19 rt-PCR Result Negative Negative 03/08/2021 16:34 EST [facility] Comment: This test [...] performed using the swati SARS-CoV-2 assay ([employer] on the Swati 6800 System Performing Lab Swati [address] [facility] Lab 03/08/2021 16:34 EST [facility] Swab 03/07/2021 10:0 5 EST 03/07/2021 22:59 EST us Provider Outr Resulting Lab MICROBIOLOGY - GENER AL ORDERABLES Final Result [facility] [address] [place] [address] documented in this encounter Visit Diagnoses Not on filedocumented in this encounter Care Teams Management Accounts Manager Relationship Specialty Start Date End Date Nadja Doan FNP [address] [place] [address] PCP - General 12/24/18 Butch Yanes MD [address] [place] [address] 12/24/18 documented as of this encounter
--- OUTSIDE RECORDS SUMMARY | 2024-03-18 15:49 | XMS_ITS | Continuity of Care Document ---
Author Organization [facility] Ambulatory Clinics Address [address] [place] [address] Care Team Providers Care Fire Fighter Airport Name Role Phone JAXSON KEVEN LEMON Primary Care Physician Encounter [facility] NBR [id number] Date(s): 12/01/23 - 12/01/23 [facility] Ambulatory Clinics [address] [place], [place] [address] Discharge Disposition: Home Allergies, Adverse Reactions, Alerts Substance Criticality Severity Reaction Reaction Severity Status vancomycin Low criticality Mild Act jamshid formoterol Unable to assess criticality Unknown Unknown Active budesonide-formoterol Unable to assess criticality Unknown Unknown Active Symbicort Low criticality Mild Acti ve Dogs Unable to assess criticality Unknown Unknown Active Love Low criticality Mild Acti ve Banana Low criticality Mild Acti ve formoterol-mometasone Unable [...] of sedation., # 30tab, 0 Refill(s), Pharmacy: [facility], 165.1, cm, 10/21/23 15:22:00 EDT, Height, 73.48, kg, 10/30/23 9:08:00 EDT, Weight Dosing Start Date: 11/11/23 Status: Ordered erenumab-aooe 70 mg/mL subcutaneous solution 70 mg =, Subcutaneous, every month, # 1 mL, 6 Refill(s), Pharmacy: [facility], 163.83, cm, 11/19/23 7:58:00 EDT, Height, 74.66, kg, 11/19/23 8:10:00 EDT, Weight Dosing Start Date: 11/25/23 Status: Ordered gabapentin 100 mg oral capsule 100 mg = 1 cap, Oral, TID, # 180 cap, 6 Refill(s), Pharmacy: [facility] Start Date: 12/10/22 Status: Ordered hydrOXYzine [...] medication., # 16 tab, 0 Refill(s), Pharmacy: [facility], 163.83, cm, 11/19/23 7:58:00 EDT, Height, 75.8, kg, 11/27/23 14:18:00 EDT, Weight Dosing Start Date: 11/27/23 Status: Ordered Lexapro 20 mg oral tablet 20 mg = 1 tab, Oral, Daily, # 30 tab, 0 Refill(s) Start Date: 10/21/23 Status: Ordered Medrol 4 mg oral tablet 1 packets, Oral, Daily, as directed on package labeling, # 21 tab, 0 Refill(s), Pharmacy: [facility], 165.1, cm, 10/21/23 15:22:00 EDT, Height, [...] Access Member Role: Primary Care Physician Address: [address] Care Team Related Persons Name: JOAQUIM MCCOY Name: JENIFFER GALLEGOS Name: MERLE JARRETT Insurance Providers Guarantor name: KIANA Fam [facility] Health Plan Information #: 1 Payer: MEDICAID [place] Member Number: NA Policy Number: NA
--- OUTSIDE RECORDS SUMMARY | 2024-03-18 15:49 | XMS_ITS | Encounter Summary ---
Author Organization [facility] Address [address] [place] [address] Care Team Providers Care Rounding And Backing Machine Operator Name Role Phone Nadja Doan PASCALE Primary Care Provider [phone] Butch Yanes MD Unavailable Unavailable Encounter Details Date Type Department Care Team (Late st Contact Info) Description 03/13/2021 Lab Requisition [facility] Pathology & Laboratory Medicine - [address] [phone] Outr Resulting Lab, Provider Social History Tobacco [...] Ab Positive See Note 03/14/2021 11:[address] [facility] Comment:Presence of detectab le Varicella Zoster virus IgG antibodies. Blood VENOUS BLOOD / Unknown 03/13/2021 12:07 EST 03/13/2021 21:07 EST us Provider Outr Resulting Lab IMMUNOLOGY AND SEROL OGY ORDERABLES Final Result Performing Organization Address [facility]/ZIP Co de Phone Number [facility] [address] [place] [address] * RUBELLA IGG ANTIBODY (03/13/2021 12:07 EST) Rubella IgG Ab Positive See Note 03/14/2021 11:[address] [facility] Comment:Positive for IgG ant ibodies to Rubella virus. Blood VENOUS BLOOD / Unknown 03/13/2021 12:07 EST 03/13/2021 21:07 EST us Provider Outr Resulting Lab CHEMISTRY & BLOOD GA S ORDERABLES Final Result Performing Organization Address [facility] Co de Phone Number [facility] [address] [place] [address] documented in this encounter Visit Diagnoses Not on filedocumented in this encounter Care Teams Rounding And Backing Machine Operator Relationship Specialty Start Date End Date Nadja Doan FNP [address] [place] [address] PCP - General 12/24/18 Butch Yanes MD [address] [place] [address] 12/24/18 documented as of this encounter
--- OUTSIDE RECORDS SUMMARY | 2024-03-18 15:49 | XMS_ITS | Encounter Summary ---
Author Organization [facility] Address [address] [place] [address] Care Team Providers Care Hand Pleater Name Role Phone Nadja Doan PASCALE Primary Care Provider [phone] Butch Yanes MD Unavailable Unavailable Encounter Details Date Type Department Care Team (Late st Contact Info) Description 11/12/2021 Lab Requisition [facility] Pathology & Laboratory Medicine - [address] [address] Peggy Steen MD [address] [place] [phone] Encounter for other general examination Social [...] explore management options, if applicable. 11/14/2021 11:29 [facility] Final Diagnosis A. CERVIX, 12 O'CLOCK, 6 O'CLOCK, BIOPSY: - Fragments of low-grade squamous intraepithelial lesion (TAN 1). B. ENDOCERVIX, CURETTAGE: - Fragments of transformation zone mucosa with squamous metaplasia and abundant blood. 11/14/2021 11:29 [facility] Attestation There was significant resident/fellow involvement in the diagnostic evaluation of this case. By the signature below, the attending physician certifies that they have personally conducted a gross and/or microscopic examination of the described specimens and rendered or confirmed the above diagnosis. 11/14/2021 11:29 [facility] at 1129 Clinical History LSIL/HPV+ 11/14/2021 11:29 [facility] Gross Description A. Received in [...] B1. TRISHA DUMONT(ASCP) 11/12/2021 18:52 11/14/2021 11:29 [facility] Resident/Jim w: Roz Ghotra DO 11/14/2021 11:29 [facility] Performing Lab [facility] LAB 11:29 [facility] Scanned Images 11/14/2021 11:29 [facility] Tissue ENTIRE ENDOCERVIX / Unknown 11/11/2021 14:20 EDT 11/12/2021 12:10 EDT Tissue specimen (specimen) ENDOCERVICAL STRUCTURE / Unknown 11/11/2021 14:20 EDT 11/12/2021 12:10 EDT us Peggy Steen MD PATHOLOGY ORDERABLES Final R esult [facility] [address] [place] [address] documented in this encounter Visit Diagnoses Diagnosis Encounter for other general examination documented in this encounter Care Teams Hand Pleater Relationship Specialty Start Date End Date Nadja Doan FNP [address] [place] [address] PCP - General 12/24/18 Butch Yanes MD [address] [place] [address] 12/24/18 documented as of this encounter
--- OUTSIDE RECORDS SUMMARY | 2024-03-18 15:49 | XMS_ITS | Encounter Summary ---
Author Organization [facility] Address [address] [place] [address] Care Team Providers Care Veneer Glue Jointer Feedback Name Role Phone Nadja Doan PASCALE Primary Care Provider [phone] Butch Yanes MD Unavailable Unavailable Encounter Details Date Type Department Care Team (Late st Contact Info) Description 12/07/2020 Lab Requisition [facility] Pathology & Laboratory Medicine - [address] [address] Outr Resulting Lab, Provider Social History Tobacco [...] Unknown 12/06/2020 18:00 EDT 12/07/2020 16:41 EDT us Provider Outr Resulting Lab MICROBIOLOGY - GENER AL ORDERABLES Final Result [facility] [address] [place] [address] * COVID-19 TESTING (12/06/2020 18:00 EDT) COVID-19 rt-PCR Result Negative Negative 12/08/2020 13:56 EDT [facility] Comment: This test has [...] developed and its performance characteristics determined by [facility]. It has not been cleared or approved [...] testing. This test is based on the [facility] COVID-19 Emergency Use Authorization (EUA) assay, with minor modification as defined by the FDA Performed on the [employer] 7 Flex RT-PCR System. Performing Lab [facility] Lab 12/08/2020 13:56 EDT [facility] Swab 12/06/2020 18:0 0 EDT 12/07/2020 16:41 EDT us Provider Outr Resulting Lab MICROBIOLOGY - GENER AL ORDERABLES Final Result [facility] [address] [place] [address] documented in this encounter Visit Diagnoses Not on filedocumented in this encounter Care Teams Veneer Glue Jointer Feedback Relationship Specialty Start Date End Date Nadja Doan FNP [address] [place] [address] PCP - General 12/24/18 Butch Yanes MD [address] [place] [address] 12/24/18 documented as of this encounter
--- OUTSIDE RECORDS SUMMARY | 2024-03-18 15:49 | XMS_ITS | Encounter Summary ---
Author Organization [facility] Address [address] [place] [address] Care Team Providers Care Printing Estimator Name Role Phone Nadja Doan PASCALE Primary Care Provider [phone] Butch Yanes MD Unavailable Unavailable Encounter Details Date Type Department Care Team (Late st Contact Info) Description 03/06/[address] [facility] Pathology & Laboratory Medicine - [address] [address] Outr Resulting Lab, Provider Social History Tobacco [...] - BROAD COVID TEST (03/06/2020 14:38 EST) [facility] COVID-19 rt-PCR Result NEGATIVE Negative 03/07/2020 20:27 [facility] Comment: 2019-novel Coronavirus (2019-nCoV) not detected [...] in accordance with CLIA regulations, College [employer] (CAP) guidelines (May 12, 2019), and FDA guidance (Apr 23, 2019). This test is only for use under the Food and Drug Administration's Emergency Use Authorization. Swab ENTIRE NASOPHARYNX / Unknown 03/06/2020 14:38 EST 03/06/2020 20:44 EST us Provider Outr Resulting Lab MICROBIOLOGY - GENER AL ORDERABLES Final Result [place] * COVID-19 TESTING (03/06/2020 14:38 EST) COVID-19 rt-PCR Result NEGATIVE Negative 03/07/2020 21:48 EST [facility] Comment: 2019-novel Coronavirus (2019-nCoV) not [...] in accordance with CLIA regulations, [employer] (CAP) guidelines (May 12, 2019), and FDA guidance (Apr 23, 2019). This test is only for use under the Food and Drug Administration's Emergency Use Authorization. Performing Lab [facility] 03/07/2020 21:48 EST [facility] Swab 03/06/2020 14:3 8 EST 03/06/2020 20:44 EST us Provider Outr Resulting Lab MICROBIOLOGY - GENER AL ORDERABLES Final Result [facility] [address] [place] [address] [facility] [place], [place] documented in this encounter Visit Diagnoses Not on filedocumented in this encounter Care Teams Printing Estimator Relationship Specialty Start Date End Date Nadja Doan FNP [address] [place] [address] PCP - General 12/24/18 [place] [address] 12/24/18 documented as of this encounter
--- OUTSIDE RECORDS SUMMARY | 2024-03-18 15:49 | XMS_ITS | Encounter Summary ---
Author Organization [facility] Address [address] [place] [address] Care Team Providers Care Resource Coordinator Name Role Phone Nadja Doan PASCALE Primary Care Provider [phone] Butch Yanes MD Unavailable Unavailable Encounter Details Date Type Department Care Team (Late st Contact Info) Description 10/23/2021 Lab Requisition [facility] Pathology & Laboratory Medicine - [address] [address] Peggy Steen MD [address] [place] [phone] Encounter for other general examination Social [...] PCR Positive(A ) Negative 11/01/2021 12:57 EDT [facility] Papanicolaou smear specimen (specimen) CERVIX UTERI STRUCTURE / Unknown 10/22/2021 10:10 EDT 10/30/2021 11:53 EDT us Peggy Steen MD MICROBIOLOGY - GENERAL ORDER SHITAL Final Result [facility] [address] [place] [address] * PAP TEST (10/22/2021 10:10 EDT) Specimens A. Cervix and/or Endocervix , ThinPrep Imaging System with Manual Evaluation 11/01/2021 12:57 [facility] Specimen Adequacy Satisfactory for Evaluation - transformation zone component present 11/01/2021 12:57 [facility] General Categorization Epithelial Cell Abnormality 11/01/2021 12:57 [facility] Descriptive Diagnosis Squamous Cell Abnormality - Low grade squamous intraepithelial lesion (LSIL). 11/01/2021 12:57 [facility] Educational Comments [facility] recommends following the ASCCP's management guidelines which may be found at www.asccp.org 11/01/2021 12:57 [facility] Attestation By the signature below, the attending physician certifies that they have personally conducted a gross and/or microscopic examination of the described specimens and rendered or confirmed the above diagnosis. 11/01/2021 12:57 [facility] at 1257 Clinical History See below 11/02/19 12:57 [facility] HPV The result for the Human Papillomavirus (HPV) Detection-High Risk Types is Positive . E6 OR E7 mRNA from one or more types of HPV types 16,18,31,33,35,39 ,45,51,52,56,58,5 9,66, and 68 is detected by oil bay technician mediated amplification. High and intermediate risk HPV types are associated with most squamous intraepithelial lesions and cervical cancers. Testing was performed on specimen [id number] and was resulted on 11/01/2021 1254 EDT by DAMION, LAB INSTRUMENT RESULTS IN 11/01/2021 12:57 EDT [facility] Performing Lab [facility] 11/01/2021 12:57 EDT [facility] Scanned Images 11/01/2021 12:57 EDT [facility] Papanicolaou smear specimen (specimen) CERVIX UTERI STRUCTURE / Unknown 10/22/2021 10:10 EDT 10/23/2021 10:10 EDT us Peggy Steen MD PATHOLOGY ORDERABLES Final R esult Performing Organization Address City/State/[facility] Co de Phone Number [facility] [address] [place] [address] documented in this encounter Visit Diagnoses Diagnosis Encounter for other general examination documented in this encounter Care Teams Resource Coordinator Relationship Specialty Start Date End Date Nadja Doan FNP [address] [place] [address] PCP - General 12/24/18 Butch Yanes MD [address] [place] [address] 12/24/18 documented as of this encounter
--- OUTSIDE RECORDS SUMMARY | 2024-03-18 15:49 | XMS_ITS | Encounter Summary ---
Author Organization [facility] Address [address] [place] [address] Care Team Providers Care Fine Dining Server Name Role Phone Nadja Doan PASCALE Primary Care Provider [phone] Butch Yanes MD Unavailable Unavailable Encounter Details Date Type Department Care Team (Late st Contact Info) Description 11/08/2020 Lab Requisition [facility] Pathology & Laboratory Medicine - [address] [id number] Outr Resulting Lab, Provider Social History Tobacco [...] Comments ZZCOVID-19 TEST [facility] PCR Today 11/06/2020 19:00 EDT COVID-19 TESTING Routine 11/06/2020 19:0 0 EDT documented in this encounter Results * COVID-19 TEST [facility] PCR (11/06/2020 19:00 EDT) Swab ENTIRE NASOPHARYNX / Unknown 11/06/2020 19:00 EDT 11/08/2020 15:57 EDT Provider Outr Resulting Lab MICROBIOLOGY - GENER AL ORDERABLES Final Result Performing Organization Address [facility] de Phone Number [facility] [address] [place] [address] * COVID-19 TESTING (11/06/2020 19:00 EDT) COVID-19 rt-PCR Result Negative Negative 11/08/2020 20:[address] [facility] Comment: This test [...] history, and epidemiological information. Performed on the English TVher Fusion instrument Performing Lab [facility] Lab 11/08/2020 20:[address] [facility] Swab 11/06/2020 19:0 0 EDT 11/08/2020 15:57 EDT us Provider Outr Resulting Lab MICROBIOLOGY - GENER AL ORDERABLES Final Result Performing Organization Address [facility]/ZIP Co de Phone Number [facility] [address] [place] [address] documented in this encounter Visit Diagnoses Not on filedocumented in this encounter Care Teams Fine Dining Server Relationship Specialty Start Date End Date Nadja Doan [place] [address] PCP - General 12/24/18 Butch Yanes MD [address] [place] [address] 12/24/18 documented as of this encounter
--- OUTSIDE RECORDS SUMMARY | 2024-03-18 15:49 | XMS_ITS | Continuity of Care Document ---
Author Organization [facility] Address [address] [place] [id number] Care Team Providers Care Lead Engineer Name Role Phone NITINKEVEN BLOUNT DNP Primary Care Physician [phone] Encounter [facility] NBR [id number] Date(s): 01/18/24 - 01/19/[address] [address] [place] Encounter Diagnosis Cervical spinal stenosis(Discharge Diagnosis) - 01/18/24 S/P cervical spinal fusion(Discharge Diagnosis) - 01/19/24 Discharge Disposition: Home f/u Internal Provider Attending Physician: Austen Funez MD Admitting Physician: [...] Banana Low criticality Mild stomsch upset Active Gallia Low criticality Mild Stomach upset Active Dust Low criticality Mild Rash Acti ve Assessment and Plan Extracted from: Title:Discharge Note Author:WALT Mcdowell Date:01/19/24 Discharge Plan 1.??Cervical spinal stenosis??M48.02 Ordered: Discharge Patient, 01/19/24 8:08:00 EST, Home Independently, Constant Indicator ?? 2.??S/P cervical spinal fusion??Z98.1 Ordered: Discharge Patient, 01/19/24 8:08:00 EST, Home Independently, Constant Indicator ?? Orders: HYDROcodone-acetaminophen 5 mg-325 mg oral tablet, 1 tab, Oral, every 6 hr, PRN as needed for pain, May increase to 2 tab TID PRN but use caution due to increased risk of sedation., # 40 tab, 0 Refill(s), Pharmacy: [facility], 165, cm, 01/18/24 16:29:00 EST, Height, 77.11, kg, 01/12/24 8:5... The patient underwent two-level ACDF yesterday.?? She is doing well this morning with the expected postoperative pain??and she has already noticed a??difference in the quality of her neck pain which is reassuring. ??She is already had improvement of the paresthesias and weakness of her upper extremities as well which is??also very reassuring.?? She will be discharged home with a short prescription of the Vicodin to take as needed. ??She can also utilize her muscle relaxer, cyclobenzaprine as needed.?? She was instructed to participate in light activity only for now. ??She can shower as needed but should not submerge the cervical wound. ??She will follow- up in the office next week. Plan: Follow-up postoperative visit. Follow Up With When Contact Information Austen Funez MD Within 1 week [address] [place] [address] Additional Instructions: Future Appointments Functional Status 01/19/24 Breakfast Percent 100 01/18/24 Personal Care Provided Other: hs care of fereulalia, pt declined 01/18/24 Recent Travel History No recent travel 01/18/24 Living Environment No Living Environmen t Information Available Lives In Single level home Lives With Significant other Living Situation Home with family car e 01/18/24 Anti-Embolism Device Activity: Applied Anti-Embolism Site Condition: No complic ations Immunizations Given and Recorded Vaccine Date Status [...] sedation., # 30 tab, 1 Refill(s), Pharmacy: [facility], 162.56, cm, 12/02/23 8:43:00 EDT, Height, 76.1, kg, 12/02/23 8:48:00 EDT, Weight Dosing Start Date: 12/16/23 Status: Ordered erenumab-aooe 70 mg/mL subcutaneous solution 70 mg =, Subcutaneous, every month, # 1 mL, 6 Refill(s), Pharmacy: [facility], 163.83, cm, 11/19/23 7:58:00 EDT, Height, 74.66, kg, 11/19/23 8:10:00 EDT, Weight Dosing Start Date: 11/25/23 Status: Ordered gabapentin 100 mg oral capsule 100 mg = 1 cap, Oral, TID, # 180 cap, 6 Refill(s), Pharmacy: [facility] Start Date: 12/10/22 Status: Ordered HYDROcodone-acetaminophen 5 mg-325 mg oral tablet 1 tab, Oral, every 6 hr, PRN as needed for pain, May increase to 2 tab TID PRN but use caution due to increased risk of sedation., # 40 tab, 0 Refill(s), Pharmacy: [facility], 165, cm, 01/18/24 16:29:00 [...] # 180 tab, 1 Refill(s), Pharmacy: [facility], 165.1, cm, 05/07/23 15:22:00 EDT, Height, [...] # 30 tab, 4 Refill(s), Pharmacy: [facility], 162.56, cm, 248:43:00 EDT, Height, 76.1, kg, 12/02/23 8:48:00 EDT, Weight Dosing Start Date: 12/02/23 Status: Ordered Relpax 20 mg oral tablet 20 mg = 1 tab, Oral, Daily, PRN as needed for migraine headache, may repeat dose once in 2 hours, #12 tab, 1 Refill(s), Pharmacy: [facility], 165.1, cm, 08/06/23 7:59:00 EDT, Height, 77.2, kg,08/06/23 8:07:00 EDT, Weight Dosing Start Date: 08/06/23 Status: Ordered Tezspire Pre-filled Pen 210 mg/1.91 mL subcutaneous solution 210 mg =, Subcutaneous, every 4 wk, # 1 EA, 5 Refill(s), Pharmacy: [facility], 162.56, cm, 12/02/23 8:43:00 [...] # 18 g, 3 Refill(s), Pharmacy: [facility], 165.1, cm, 10/21/23 15:22:00 EDT, Height, 73.48, kg, 10/30/23 9:08:00 EDT, Weight Dosing Start Date: 11/10/23 Status: Ordered Problem List Condition Confirmation Course Effective Dates Status H ealth Status Informant Anemia Confirmed Active Anxiety Confirmed Active Asthma Confirmed Active Bilateral sacroiliitis Confirmed Active Cervical spondylosis Confirmed Active Menstrual abnormality Confirmed Active S/P [...] Completed 1auto-populated from documented surgical case Results Laboratory List Name Date Urine Qual POCT 01/18/24 Most recent to oldest [Reference Range]: 1 U Preg POCT [Negative] Negative (01/18/24 9:45 AM) Radiology Reports * Exam Date Time Procedure Performing Provider Status 01/18/24 12:37 PM XR Spine Cervical 1 View Martha Ochoa; Maura (Verified) Notes: (XR Spine Cervical 1 View) Reason For Exam: Anterior Cervical Fusion XR Spine Cervical 1 View EXAM DESCRIPTION: XR Spine Cervical 1 View 01/18/2024 INDICATION: ANTERIOR CERVICAL FUSION TECHNIQUE: Two intraoperative lateral views of the cervical spine COMPARISON: Routine radiographs of the cervical spine from 11/27/2023 IMPRESSION: Status post ACDF at C4-5 and C5-6 with plate fixation apparatus and interbody spacer apparatus. Hardware appears in satisfactory position in the lateral projection. JOB #: [id number] Final Signed by: Amor Trotter MD Signed (Electronic Signature): 01/18/2024 1:20 pm Vital Signs Most recent to oldest [Reference Range]: 1 2 3 Temperature Temporal Artery [36-38 Deg C] 36.5 Deg C (01/19/24 7:12 AM) 36.7 Deg C (01/19/24 4:06 AM) 37.2 Deg C (01/18/24 11:32 PM) Temperature Temporal Artery (DegF) [97.3-100 Deg F] 98.06 Deg F (01/19/24 4:06 AM) 98.96 Deg F (01/18/24 11:32 PM) 98.42 Deg F (01/18/24 5:35 PM) Peripheral Pulse Rate [60-100 bpm] 87 bpm (01/19/24 7:12 AM) 88 bpm (01/19/24 4:06 AM) 102 bpm *HI* (01/18/24 11:32 PM) Heart Rate Monitored [60-100 bpm] 96 bpm (01/18/24 2:30 PM) 84 bpm (01/18/24 2:15 PM) 92 bpm (01/18/24 2:00 PM) Respiratory Rate [12-24 br/min] 16 br/min (01/19/24 7:12 AM) 18 br/min (01/19/24 4:06 AM) 16 br/min (01/18/24 11:32 PM) Blood Pressure [90-120/60-80 mmHg] 96/52mmHg (01/19/24 7:12 AM) 101/53mmHg (01/19/24 4:06 AM) 110/64mmHg (01/18/24 11:32 PM) Mean Arterial Pressure, Cuff [65-140 mmHg] 69 mmHg (01/19/24 4:06 AM) 79 mmHg (01/18/24 11:32 PM) 75 mmHg (01/18/24 9:20 PM) Mean Arterial Pressure Cuff 69 mmHg (01/18/24 9:20 PM) 94 mmHg (01/18/24 2:30 PM) 91 mmHg (01/18/24 2:15 PM) Blood Pressure Location Left arm (01/18/24 9:20 PM) Blood Pressure Method Automatic (01/18/24 9:20 PM) Weight 77.11 kg (01/18/24 4:29 PM) 77.11 kg (01/12/24 8:29 AM) Weight Dosing 77.110 kg (01/12/24 8:29 AM) Weight Estimated 78 kg (01/12/24 8:29 AM) Height 165 cm (01/18/24 4:29 PM) 165.10 cm (01/12/24 8:29 AM) BSA Measured 1.88 m2 (01/18/24 4:29 PM) BSA Estimated 0 m2 (01/18/24 4:29 PM) Body Mass Index 28.32 kg/m2 (01/18/24 4:29 PM) Body Mass Index Estimated 28.31 kg/m2 (01/12/24 8:29 AM) Height/Length Estimated 166 cm (01/12/24 8:29 AM) Social History Social History Type Response [...] MRI Safety Implantable Status Assigning Authority Unknown [id number] Unknown Unknown 08/15/25 Unknown Unknown Active Unknown Unknown Unknown [id number] Unknown 05/05/28 Unknown Unknown Active Unknown Unknown Unknown [id number] Unknown 12/25/27 Unknown Unknown Active Unknown Unknown Unknown [id number] Unknown Unknown Unknown Unknown Active Unknown Unknown Unknown [id number] 4 Unknown Unknown Unknown Unknown Active Unknown Hospital Discharge Instructions Patient Education 01/19/2024 07:08:00 Jessika - Dr. Funez - [facility] Discharge Instructions (CUSTOM) Disharge Instructions: [facility] What to Watch Out For These symptoms should cause you to call immediately or dial 911 to come to the emergency department. ??? New weakness or decreased ability to fully move your upper or lower extremities ??? Severe chest pain, difficulty breathing ??? Loss of control of your bowels and bladder The following symptoms may indicate a problem. Contact office number below. ??? Fever higher than 101 F ??? Increasing back and/or leg pain ??? Difficulty passing urine ??? New numbness or change in symptoms from before surgery ??? Redness or drainage from the incision ??? Unusual headache, especially if it is much worse when you stand up ??? Calf pain or swelling Follow up appointment: Call spine office to schedule a follow up appointment within 10-14 days after your surgery. For questions after the surgery, call [facility] at: [phone]. After hours, the answering service will respond. In the case of an emergency call 101. Medications: ??? Resume medications as prescribed Remember your Spine Precautions ??? Try to avoid bending ??? Minimize twisting ??? No Heavy Lifting??(avoid heavy lifting (use a gallon of milk, which weighs about 8 pounds, as aguide for the maximum weight that can be lifted)). ??? No Pulling/Pushing Patient Identification [place] [id number] *DCIN* DCIN Discharge Instructions [facility] Page 1 of 4 Incision Care If you have (refer to ?? section): ? Colp/Sutures: They will be removed during your follow up visit. ? Steri- Strips: They will fall off on their own after the first week. ? If your incision is covered with gauze:?? Keep it covered until 5 days after your surgery, then you may leave it open to air if completely dry. ? Dermabond is a liquid skin adhesive that holds open wounds or incision sites together by adhering skin edges together. Ok to leave incision open to air. Do not apply any body oils, lotions ormakeup to the area surrounding the Dermabond or on the film. These products will prematurely loosenthe Dermabond film. Avoid areas that cause increase sweating (e.g. tanning beds, saunas, excess sunlight exposure, physical exertion) Shower ??? You may shower 5 days after your surgery, let water run on incision and pat dry. Do not apply lotion or soap to incision. No Baths. Showers are ok to keep incision clean, but baths, swimming, and hot tubs are off limits because of the risk of infection. It is best not to point the shower head directly at the incision, but the incision can get wet. It is good to let soapy water run over the incision but not to scrub or directly wash the incision. Activity: ??? Start daily walking program and increase each day. Taking several walks throughout the day, every few hours, is best. Short walks in the home can be helpful as well. ??? Sleeping on the side or back is recommended versus sleeping your stomach (Cervical fusion patients) ??? General rule: If it hurts you should probably refrain from that activity ??? Return to Work/School: ?? when able Click or tap here to enter text. weeks/days ?? not until follow up Additional instructions: ___ [place] [address] DCIN Discharge Instructions [facility] Page 2 of 4 Tips for taking pain medicine ?? Pain medicines can upset your stomach. Taking them with a little food may help. ?? Most pain relievers taken by mouth need at least 20 to 30 minutes to start to work. ?? Taking medicine on a schedule can help you remember to take it. Try to time your medicine so that you can take it before starting an activity. ?? Constipation is a common side effect of narcotic pain medicines. Drinking fluids and eating foods high in fiber can help. Here are some over the counter stool softeners that may also help if symptoms continue: Miralax, Colace, or Ducolax. ?? Drinking alcohol and taking pain medicine can cause dizziness and slow your breathing. It can even be deadly. Do not drink alcohol while taking pain medicine. ?? Pain medicine can make you react more slowly to things. Do not drive or run machinery while taking pain medicine. ?? If you have obstructive sleep apnea, please use home C-pap as prescribed especially after takingpain medications before naps/bedtime. ?? Try to wean off narcotic pain medication as pain decreases in severity. Tips for managing nausea- Some people have an upset stomach after surgery. This is often because ofanesthesia, pain, or pain medicine, or the stress of surgery. These tips will help you handle nausea as you get better. ?? Start off with clear liquids and soup. They are easier to digest. ?? Next try semi-solid foods, such as mashed potatoes, applesauce, and gelatin, as you feel ready. ?? Slowly move to solid foods. Try to stay away from fatty, rich, or spicy foods. ?? Do not force yourself to have 3 large meals a day. Instead eat smaller amounts more often. ?? Take pain medicines with a small amount of solid food, such as crackers or toast, to avoid nausea. Patient Identification [facility] [address] [place] [address] DCIN Discharge Instructions [facility] Page 3 of 4 Questions for your provider (please write below): I have read these instructions, and understand them as they have been explained to wi. Date (Patient???s Signature) Date/Time (Discharge Nurse???s Signature) Patient Identification [address] [address] DCIN Discharge Instructions [facility] Page 4 of 4 Follow Up Care 12/09/2023 11:42:03 With:Austen Funez MD Address: [address] [place] [id number] When:1 week Discharge instructions * SHAR Kern: PERFORM Event Display: Discharge Instructions Authored Date: [id number] KIANA ISABEL I :1990 Age:33 years Sex:Female Visit Date:01/18/2024 Primary Care Physician: JAXSON DNP, KEVEN [facility] Discharge Instructions We would like to thank you for allowing us to assist you with your healthcare needs. The following includes patient education materials and information regarding your injury/illness. Your Next Steps Scheduled Future Appointments Thursday 10:00 AM EST ?? Thursday 8:00 AM EST ?? 2024 11:30 AM EST ?? Follow Up Appointments Follow Up with??Austen Funez MD When:??Within 1 week Where: [address] [place] [address] Medications What How Much When Why Instructions Next Dose Changed HYDROcodone-acetaminophen (HYDROcodone-acetaminophen 5 mg-325 mg oral tablet) 1 tab Oral (given by mouth) Every 6 hours as needed for as needed for pain May increase to 2 tab TID PRN but use caution due to increased risk of sedation. ?? Pickup at [facility] Changed cyclobenzaprine (cyclobenzaprine 5 mg oral tablet) 1 tab Oral (given by mouth) 3 times a day as needed for as needed for muscle spasm May increase to 2 tab TID PRN. Use caution due to risk of sedation. ?? Changed fluticasone/ umeclidinium/ vilanterol (Trelegy Ellipta 200 mcg-62.5 mcg- 25 mcg/ inh inhalation powder) 1 Inhalation Every day Changed hydrOXYzine (hydrOXYzine hydrochloride 25 mg oral tablet) 1 tab Oral (given by mouth) Every day as needed for as needed for anxiety Unchanged albuterol (albuterol 1.25 mg/ 3 mL [...] SHORTNESS OF BREATH OR WHEEZING ?? Unchanged eletriptan (Relpax 20 mg oral tablet) 1 tab Oral (given by mouth) Every day as needed for as needed for migraine headache Migraines may repeat dose once in 2 hours ?? Unchanged erenumab (erenumab-aooe 70 mg/ mL subcutaneous solution) 70 Milligrams Subcutaneous (under the skin) Once a month Migraine with aura Unchanged escitalopram (Lexapro 20 mg oral tablet) 1 tab Oral (given by mouth) Every day Unchanged gabapentin (gabapentin 100 mg oral capsule) 1 Capsules Oral (given by mouth) 3 times a day Migraine with aura Tingling Unchanged levonorgestrel (Mirena 52 mg intrauteral device) Unchanged metoprolol (metoprolol succinate 50 mg oral tablet, extended release) 1 tab Oral (given by mouth) 2 times a day POTS (postural orthostatic tachycardia syndrome) Migraines Duration: 90 Days Unchanged montelukast (montelukast 10 mg oral tablet) 1 tab Oral (given by mouth) Every day Unchanged pantoprazole (Protonix 40 mg oral delayed release tablet) 1 tab Oral (given by mouth) Every day Unchanged tezepelumab (Tezspire Pre-filled Pen 210 mg/ 1.91 mL subcutaneous solution) 210 Milligrams Subcutaneous (under the skin) Every 4 weeks Asthma Pharmacy Information [facility]: [address] [place] [address] [phone] Your Summary Your Care Team Admitting Physician - Austen Funez MD Attending Physician - Austen Funez MD Primary Care Physician - KEVEN PURI DNP Referring Physician - Austen Funez MD Your Diagnosis Cervical spinal stenosis S/P cervical spinal fusion Problems Ongoing - Any problem that you are currently receiving treatment for. Anemia Anxiety Asthma Bilateral sacroiliitis Cervical spinal stenosis Cervical spondylosis Pedraza sign present Hyperreflexia Insomnia Lower extremity weakness Menstrual abnormality Migraine headache with aura Migraine with aura, not intractable, without status migrainosus Neck pain Neuroforaminal stenosis of cervical spine Paresthesias POTS (postural orthostatic tachycardia syndrome) S/P cervical spinal fusion Sleep apnea Upper extremity weakness Procedures Performed ???Anterior Cervical Fusion (01/18/2024) Tests Performed/Pending Urine Qual POCT XR Spine Cervical 1 View Discharge Vitals Temperature??(Temporal Artery) 97.7 ??F (36.5 ??C) Heart Rate??(Peripheral) 87 Respiratory Rate?? 16 Blood Pressure?? 96/52?? SpO2?? 97% Height?? 64.96 in (165 cm) Weight?? 170.03 lb (77.11 kg) BMI?? 28.32 Allergies vancomycin??(Swelling of oral cavity structure, Fever) Banana??(stomsch upset) Cats??(Rash) Dogs??(Rash) Dust??(Rash) Gallia??(Stomach upset) Tape??(Skin irritation) budesonide-formoterol??(Rash, Hives) formoterol-mometasone??(Hives, Rash) Devices Implanted/Removed This Visit Notice: You have devices implanted this visit that may not be MRI compatible. Implanted Anterior Cervical Fusion Neck ???GRAFT BONE RIKA ELITE SMALL 1.2CC 01/18/2024???SABRA SPACER [id number] TC 6 DEG SM 6MM 01/18/2024???SABRA SPACER [id number] TC 6 DEG SM 6MM 01/18/2024???PLATE ZEVO 33MM 2 LVL 01/18/2024???SCREW [id number] ZEVO BERTRAM SD 3.5MM X 13MM (6), 01/18/2024 Education Materials Disharge Instructions: [facility] What to Watch Out For These symptoms should cause you to call immediately or dial 911 to come to the emergency department. ? New weakness or decreased ability to fully move your upper or lower extremities ? Severe chest pain, difficulty breathing ? Loss of control of your bowels and bladder The following symptoms may indicate a problem. Contact office number below. ? Fever higher than 101 F ? Increasing back and/or leg pain ? Difficulty passing urine ? New numbness or change in symptoms from before surgery ? Redness or drainage from the incision ? Unusual headache, especially if it is much worse when you stand up ? Calf pain or swelling Follow up appointment: Call spine office to schedule a follow up appointment within 10-14 days after your surgery. For questions after the surgery, call [facility] at: [phone]. After hours, the answering service will respond. In the case of an emergency call 911. ? Medications: ? Resume medications as prescribed Remember your Spine Precautions ? Try to avoid bending ? Minimize twisting ? No Heavy Lifting??(avoid heavy lifting (use a gallon of milk, which weighs about 8 pounds, as a guide for the maximum weight that can be lifted)). ? No Pulling/Pushing ? Patient Identification [address] [id number] ? *DCIN* ? DCIN Discharge Instructions [facility]?? Page 1 of 4 Incision Care If you have (refer to ?? section): ? Colp/Sutures: They will be removed during your follow up visit. ? Steri- Strips: They will fall off on their own after the first week. ? If your incision is covered with gauze:?? Keep it covered until 5 days after your surgery, thenyou may leave it open to air if completely dry. ? Dermabond is a liquid skin adhesive that holds open wounds or incision sites together by adhering skin edges together. Ok to leave incision open to air. Do not apply any body oils, lotions or makeup to the area surrounding the Dermabond or on the film. These products will prematurely loosen theDermabond film. Avoid areas that cause increase sweating (e.g. tanning beds, saunas, excess sunlight exposure, physical exertion) Shower ? You may shower 5 days after your surgery, let water run on incision and pat dry. Do not apply lotion or soap to incision. No Baths. Showers are ok to keep incision clean, but baths, swimming, and hot tubs are off limits because of the risk of infection. It is best not to point the shower head directly at the incision, but the incision can get wet. It is good to let soapy water run over the incision but not to scrub or directly wash the incision. Activity: ? Start daily walking program and increase each day. Taking several walks throughout the day, every few hours, is best. Short walks in the home can be helpful as well. ? Sleeping on the side or back is recommended versus sleeping your stomach (Cervical fusion patients) ? General rule: If it hurts you should probably refrain from that activity ? Return to Work/School: ?? when able Click or tap here to enter text. weeks/days ?? not until follow up Additional instructions: ___ ? Patient Identification ? [place] [address] ? DCIN Discharge Instructions [facility] ?? Page 2 of 4 Tips for taking pain medicine ? Pain medicines can upset your stomach. Taking them with a little food may help. ? Most pain relievers taken by mouth need at least 20 to 30 minutes to start to work. ? Taking medicine on a schedule can help you remember to take it. Try to time your medicine so that you can take it before starting an activity. ? Constipation is a common side effect of narcotic pain medicines. Drinking fluids and eating foods high in fiber can help. Here are some over the counter stool softeners that may also help if symptomscontinue: Miralax, Colace, or Ducolax. ? Drinking alcohol and taking pain medicine can cause dizziness and slow your breathing. It can even be deadly. Do not drink alcohol while taking pain medicine. ? Pain medicine can make you react more slowly to things. Do not drive or run machinery while taking pain medicine. ? If you have obstructive sleep apnea, please use home C-pap as prescribed especially after taking pain medications before naps/bedtime. ? Try to wean off narcotic pain medication as pain decreases in severity. ? Tips for managing nausea- Some people have an upset stomach after surgery. This is often because ofanesthesia, pain, or pain medicine, or the stress of surgery. These tips will help you handle nausea as you get better. ? Start off with clear liquids and soup. They are easier to digest. ? Next try semi-solid foods, such as mashed potatoes, applesauce, and gelatin, as you feel ready. ? Slowly move to solid foods. Try to stay away from fatty, rich, or spicy foods. ? Do not force yourself to have 3 large meals a day. Instead eat smaller amounts more often. ? Take pain medicines with a small amount of solid food, such as crackers or toast, to avoid nausea. ? Patient Identification ? [facility] [address] [place] [address] ? DCIN Discharge Instructions [facility]?? Page 3 of 4 Questions for your provider (please write below): ? I have read these instructions, and understand them as they have been explained to me. ? Date (Patient???s Signature) Date/Time (Discharge Nurse???s Signature) ? Patient Identification ? [facility] [address] [place] [address] ? DCIN Discharge Instructions [facility]?? Page 4 of 4 Medication Information acetaminophen and hydrocodone?? (a SEET a MIN oh fen and lavelle aracelis KOE done) ?? Verdrocet? What is the most important information I should know about acetaminophen and hydrocodone? MISUSE OF OPIOID MEDICINE CAN CAUSE ADDICTION, OVERDOSE, OR .?Keep the medication in a place where others cannot get to it. ?? Taking opioid medicine during may cause life-threatening withdrawal symptoms in the . ?? Fatal side effects can occur if you use opioid medicine with alcohol, or with other drugs that cause drowsiness or slow your breathing. ?? Stop taking this medicine and call your doctor right away if you have skin redness or a rash that spreads and causes blistering and peeling.? What is acetaminophen and hydrocodone? Acetaminophen and hydrocodone is a combination medicine used to relieve moderate to severe pain. ?? Acetaminophen and hydrocodone contains an opioid medicine, and may be habit- forming. ? Acetaminophen and hydrocodone may also be used for purposes not listed in this medication guide. ?? What should I discuss with my healthcare provider before taking acetaminophen and hydrocodone? You should not use this medicine if you are allergic to acetaminophen or hydrocodone, or if you have: ?severe asthma or breathing problems; or ?a blockage in your stomach or intestines. ?? Tell your doctor if you have ever had: ?breathing problems, sleep apnea (breathing stops during sleep); ?liver disease; ?a drug or alcohol addiction; ?kidney disease; ?a head injury or seizures; ?urination problems; or ?problems with your thyroid, pancreas, or gallbladder. ?? If you use opioid medicine while you are , your baby could become dependent on the drug.?This can cause life-threatening withdrawal symptoms in the baby after it is born. Babies born dependent on opioids may need medical treatment for several weeks. ?? Ask a doctor before using opioid medicine if you are .??Tell your doctor if you noticesevere drowsiness or slow breathing in the nursing baby.? How should I take acetaminophen and hydrocodone? Follow all directions on your prescription label.??Never take this medicine in larger amounts, or for longer than prescribed. ??An overdose can damage your liver or cause .??Tell your doctor if you feel an increased urge to use more of this medicine. ?? Never share this medicine with another person, especially someone with a history of drug abuse or addiction. ??MISUSE CAN CAUSE ADDICTION, OVERDOSE, OR .?Keep the medicine in a place where others cannot get to it. ??Selling or giving away this medicine is against the law.? Measure??liquid medicine??carefully. Use the dosing syringe provided, or use a medicine dose-measuring device (not a kitchen spoon). ?? If you need surgery or medical tests, tell the doctor ahead of time that you are using this medicine.? You should not stop using this medicine suddenly.?Follow your doctor's instructions about tapering your dose. ?? Store at room temperature away from moisture and heat. Keep track of your medicine. You should be aware if anyone is using it improperly or without a prescription. ?? Do not keep leftover opioid medication.??Just one dose can cause in someone using this medicine accidentally or improperly.??Ask your pharmacist where to locate a drug take-back disposal program. If there is no take-back program, flush the unused medicine down the toilet. ?? What happens if I miss a dose? Since this medicine is used for pain, you are not likely to miss a dose. Skip any missed dose if itis almost time for your next dose.??Do not??use two doses at one time. ?? What happens if I overdose? Seek emergency medical attention or call the Poison Help line at .??An overdose of this medicine can be fatal, especially in a child or other person using the medicine without a prescription.??Overdose symptoms may include nausea, vomiting, sweating, severe drowsiness, pinpoint pupils, slow breathing, or no breathing. ?? Your doctor may recommend you get naloxone (a medicine to reverse an opioid overdose) and keep it with you at all times. A person caring for you can give the naloxone if you stop breathing or don't wake up. Your caregiver must still get emergency medical help and may need to perform CPR (cardiopulmonary resuscitation) on you while waiting for help to arrive. ?? Anyone can buy naloxone from a pharmacy or local health department. Make sure any person caring foryou knows where you keep naloxone and how to use it. ?? What should I avoid while taking acetaminophen and hydrocodone? Avoid driving or operating machinery until you know how this medicine will affect you. Dizziness ordrowsiness can cause falls, accidents, or severe injuries. ?? Do not drink alcohol.?Dangerous side effects or could occur. ?? Ask a doctor or pharmacist before using any other medicine that may contain acetaminophen (sometimes abbreviated as APAP).??Taking certain medications together can lead to a fatal overdose. ?? What are the possible side effects of acetaminophen and hydrocodone? Get emergency medical help if you have??signs of an allergic reaction:?hives; difficulty breathing; swelling of your face, lips, tongue, or throat. ?? Opioid medicine can slow or stop your breathing, and may occur.??A person caring for you should give naloxone and/or seek emergency medical attention if you have slow breathing with long pauses, blue colored lips, or if you are hard to wake up. ?? In rare cases, acetaminophen may cause a severe skin reaction that can be fatal.?This could occur even if you have taken acetaminophen in the past and had no reaction.??Stop taking this medicine and call your doctor right away if you have skin redness or a rash that spreads and causes blisteringand peeling.? Call your doctor at once if you have: ?noisy breathing, sighing, shallow breathing, breathing that stops; ?a light-headed feeling, like you might pass out; ?liver problems--nausea, upper stomach pain, tiredness, loss of appetite, dark urine, ramiro-colored stools, jaundice (yellowing of the skin or eyes);?low cortisol levels-- nausea, vomiting, loss of appetite, dizziness, worsening tiredness or weakness; o ?high levels of serotonin in the body--agitation, hallucinations, fever, sweating, shivering, fast heart rate, muscle stiffness, twitching, loss of coordination, nausea, vomiting, diarrhea. ?? Serious breathing problems may be more likely in older adults and in those who are debilitated or have wasting syndrome or chronic breathing disorders. ?? Common side effects include: ?dizziness, drowsiness, feeling tired; ?nausea, vomiting, stomach pain;?constipation; or ?headache. ?? This is not a complete list of side effects and others may occur. Call your doctor for medical advice about side effects. You may report side effects to FDA at 1-907-KOA-4858. ?? What other drugs will affect acetaminophen and hydrocodone? You may have breathing problems or withdrawal symptoms if you start or stop taking certain other medicines.?Tell your doctor if you also use an antibiotic, antifungal medication, heart or blood pressure medication, seizure medication, or medicine to treat HIV or hepatitis C. ?? Opioid medication can interact with many other drugs and cause dangerous side effects or .?Be sure your doctor knows if you also use: ?cold or allergy medicines, bronchodilator asthma/COPD medication, or a diuretic ('water pill'); ?medicines for motion sickness, irritable bowel syndrome, or overactive bladder; ?other opioids--opioid pain medicine or prescription cough medicine; ?a sedative like Valium--diazepam, alprazolam, lorazepam, Xanax, Klonopin, Versed, and others; ?drugs that make you sleepy or slow your breathing--a sleeping pill, muscle relaxer, medicine totreat mood disorders or mental illness; ?drugs that affect serotonin levels in your body--a stimulant, or medicine for depression, Parkinson's disease, migraine headaches, serious infections, or nausea and vomiting. ?? This list is not complete. Other drugs may affect acetaminophen and hydrocodone, including prescription and zrhy-udj-drnxgum medicines, vitamins, and herbal products.??Not all possible interactions are listed here.? Where can I get more information? Your doctor or pharmacist can provide more information about acetaminophen and hydrocodone. ?? Remember, keep this and all other medicines out of the reach of children, never share your medicines with others, and use this medication only for the indication prescribed. ?? Every effort has been made to ensure that the information provided by [employer]. [employer]') is accurate, up-to-date, and complete, but no guarantee is made to that effect. Drug information contained herein may be time sensitive. [employer] information has been compiled for use by healthcare practitioners and consumers in the [place] and therefore [employer] does not warrant that uses outside of the [place] are appropriate, unless specifically indicated otherwise. [employer] drug information does not endorse drugs, diagnose patients or recommend therapy. [employer] drug information isan informational resource designed to assist licensed healthcare practitioners in caring for their p atients and/or to serve consumers viewing this service as a supplement to, and not a substitute for, the expertise, skill, knowledge and judgment of healthcare practitioners. The absence of a warningfor a given drug or drug combination in no way should be construed to indicate that the drug or drug combination is safe, effective or appropriate for any given patient. [employer] does not assume any responsibility for any aspect of healthcare administered with the aid of information [employer] provides. The information contained herein is not intended to cover all possible uses, directions, precautions, warnings, drug interactions, allergic reactions, or adverse effects. If you have questions about the drugs you are taking, check with your doctor, nurse or pharmacist.? Copyright 2524-0731 [employer]. Version: 19.. Revision Date: 06/02/2023. ? cyclobenzaprine?? (radha carranza) ?? Amrix, Fexmid? What is the most important information I should know about cyclobenzaprine? You should not use cyclobenzaprine if you have a thyroid disorder, heart block, congestive heart failure, a heart rhythm disorder, or you have recently had a heart attack. ?? Do not use cyclobenzaprine if you have taken an MAO inhibitor in the past 14 days,??such as isocarboxazid, linezolid, phenelzine, rasagiline, selegiline, or tranylcypromine. ?? What is cyclobenzaprine? Cyclobenzaprine is a muscle relaxant. It works by blocking nerve impulses (or pain sensations) thatare sent to your brain. ?? Cyclobenzaprine is used together with rest and physical therapy to relieve muscle spasms caused by painful conditions such as an injury. ?? Cyclobenzaprine may also be used for purposes not listed in this medication guide. ?? What should I discuss with my healthcare provider before taking cyclobenzaprine? You should not use cyclobenzaprine if you are allergic to it, or if you have: ?a thyroid disorder; ?heart block, heart rhythm disorder, congestive heart failure; or ?if you have recently had a heart attack. ?? Cyclobenzaprine is not approved for use by anyone younger than 15 years old.? Do not use cyclobenzaprine if you have taken an MAO inhibitor in the past 14 days.??A dangerous drug interaction could occur. MAO inhibitors include isocarboxazid, linezolid, phenelzine, rasagiline, selegiline, and tranylcypromine. ?? Some medicines can interact with cyclobenzaprine and cause a serious condition called??serotonin syndrome.?Be sure your doctor knows if you also take stimulant medicine, opioid medicine, herbal products, or medicine for depression, mental illness, Parkinson's disease, migraine headaches, serious infections, or prevention of nausea and vomiting.??Ask your doctor before making any changes in howor when you take your medications.? Tell your doctor if you have ever had: ?liver disease; ?glaucoma;?enlarged prostate; or ?problems with urination. ?? It is not known whether this medicine will harm an unborn baby. Tell your doctor if you are or plan to become . ?? It may not be safe to breast-feed while using this medicine. Ask your doctor about any risk. ?? Older adults may be more sensitive to the effects of this medicine. ?? How should I take cyclobenzaprine? Follow all directions on your prescription label and read all medication guides or instruction sheets. ??Your doctor may occasionally change your dose. ??Use the medicine exactly as directed. ?? Cyclobenzaprine is usually taken once daily for only 2 or 3 weeks. ??Follow your doctor's dosing instructions very carefully. ?? Swallow the??capsule??whole and do not crush, chew, break, or open it. ?? Take the medicine at the same time each day. ? Call your doctor if your symptoms do not improve after 3 weeks, or if they get worse. ?? Store at room temperature away from moisture, heat, and light. ?? What happens if I miss a dose? Take the medicine as soon as you can, but skip the missed dose if it is almost time for your next dose.??Do not??take two doses at one time.? What happens if I overdose? Seek emergency medical attention or call the Poison Help line at . ??An overdose of cyclobenzaprine can be fatal. ?? Overdose symptoms may include severe drowsiness, vomiting, fast heartbeats, tremors, agitation, or hallucinations. ?? What should I avoid while taking cyclobenzaprine? Avoid driving or hazardous activity until you know how this medicine will affect you. ??Your reactions could be impaired. ?? Avoid drinking alcohol.?Dangerous side effects could occur. ?? What are the possible side effects of cyclobenzaprine? Get emergency medical help if you have??signs of an allergic reaction: ??hives; difficult breathing; swelling of your face, lips, tongue, or throat. ?? Stop using cyclobenzaprine and call your doctor at once if you have: ?fast or irregular heartbeats; ?chest pain or pressure, pain spreading to your jaw or shoulder; or ?sudden numbness or weakness (especially on one side of the body), slurred speech, balance problems. ?? Seek medical attention right away if you have symptoms of serotonin syndrome, such as:?agitation, hallucinations, fever, sweating, shivering, fast heart rate, muscle stiffness, twitching, loss of coordination, nausea, vomiting, or diarrhea. ?? Serious side effects may be more likely in older adults. ?? Common side effects may include: ?drowsiness, tiredness; ?headache, dizziness;?dry mouth; or ?upset stomach, nausea, constipation. ?? This is not a complete list of side effects and others may occur. Call your doctor for medical advice about side effects. You may report side effects to FDA at 3-405-NGP-1320. ?? What other drugs will affect cyclobenzaprine? Using cyclobenzaprine with other drugs that make you drowsy can worsen this effect. ??Ask your doctor before using opioid medication, a sleeping pill, a muscle relaxer, or medicine for anxiety or seizures. ?? Tell your doctor about all your other medicines, especially: ?bupropion (Zyban, for smoking cessation); ?meperidine; ?tramadol; ?verapamil; ?cold or allergy medicine that contains an antihistamine (Benadryl and others); ?medicine to treat Parkinson's disease; ?medicine to treat excess stomach acid, stomach ulcer, motion sickness, or irritable bowel syndrome; ?medicine to treat overactive bladder; or ?bronchodilator asthma medication. ?? This list is not complete. ??Other drugs may affect cyclobenzaprine, including prescription and dcbi-iry-rgmptst medicines, vitamins, and herbal products. ??Not all possible drug interactions are listed here. ?? Where can I get more information? Your pharmacist can provide more information about cyclobenzaprine. ?? Remember, keep this and all other medicines out of the reach of children, never share your medicines with others, and use this medication only for the indication prescribed. ?? Every effort has been made to ensure that the information provided by [employer]') is accurate, up-to-date, and complete, but no guarantee is made to that effect. Drug information contained herein may be time sensitive. [employer] information has been compiled for use by healthcare practitioners and consumers in the [place] and therefore [employer] does not warrant that uses outside of the [place] are appropriate, unless specifically indicated otherwise. [employer] drug information does not endorse drugs, diagnose patients or recommend therapy. [employer] drug information isan informational resource designed to assist licensed healthcare practitioners in caring for their p atients and/or to serve consumers viewing this service as a supplement to, and not a substitute for, the expertise, skill, knowledge and judgment of healthcare practitioners. The absence of a warningfor a given drug or drug combination in no way should be construed to indicate that the drug or drug combination is safe, effective or appropriate for any given patient. [employer] does not assume any responsibility for any aspect of healthcare administered with the aid of information [employer] provides. The information contained herein is not intended to cover all possible uses, directions, precautions, warnings, drug interactions, allergic reactions, or adverse effects. If you have questions about the drugs you are taking, check with your doctor, nurse or pharmacist.? Copyright Apolinar Henson, Tricia. Version: 08.23. Revision Date: 09/26/2022. ? Patient/Database Analyst Signature Patient Name:KIANA ISABEL I I have received this information and my questions have been answered. Patient/Database Analyst Name: Patient/Database Analyst Signature: Relationship to Patient: Witness Name/Signature: Date: Electronically Signed on: 01/19/2024 08:17 ESTSigned by:SHAR Gerber: PERFORM Event Display: Discharge Instructions Authored Date: [id number] KIANA ISABEL I :1990 Age:33 years Sex:Female Visit Date:01/18/2024 Primary Care Physician: JAXSON LEMON, [facility] Discharge Instructions We would like to thank you for allowing us to assist you with your healthcare needs. The following includes patient education materials and information regarding your injury/illness. Your Next Steps Scheduled Future Appointments Thursday 10:00 AM EST ?? Thursday 8:00 AM EST ?? 2024 11:30 AM EST ?? Follow Up Appointments Follow Up with??Austen Funez MD When:??Within 1 week Where: [address] [place] [phone] Medications What How Much When Why Instructions Next Dose Changed HYDROcodone-acetaminophen (HYDROcodone-acetaminophen 5 mg-325 mg oral tablet) 1 tab Oral (given by mouth) Every 6 hours as needed for as needed for pain May increase to 2 tab TID PRN but use caution due to increased risk of sedation. ?? Pickup at [facility] Changed cyclobenzaprine (cyclobenzaprine 5 mg oral tablet) 1 tab Oral (given by mouth) 3 times a day as needed for as needed for muscle spasm May increase to 2 tab TID PRN. Use caution due to risk of sedation. ?? Changed fluticasone/ umeclidinium/ vilanterol (Trelegy Ellipta 200 mcg-62.5 mcg- 25 mcg/ inh inhalation powder) 1 Inhalation Every day Changed hydrOXYzine (hydrOXYzine hydrochloride 25 mg oral tablet) 1 tab Oral (given by mouth) Every day as needed for as needed for anxiety Unchanged albuterol (albuterol 1.25 mg/ 3 mL [...] SHORTNESS OF BREATH OR WHEEZING ?? Unchanged eletriptan (Relpax 20 mg oral tablet) 1 tab Oral (given by mouth) Every day as needed for as needed for migraine headache Migraines may repeat dose once in 2 hours ?? Unchanged erenumab (erenumab-aooe 70 mg/ mL subcutaneous solution) 70 Milligrams Subcutaneous (under the skin) Once a month Migraine with aura Unchanged escitalopram (Lexapro 20 mg oral tablet) 1 tab Oral (given by mouth) Every day Unchanged gabapentin (gabapentin 100 mg oral capsule) 1 Capsules Oral (given by mouth) 3 times a day Migraine with aura Tingling Unchanged levonorgestrel (Mirena 52 mg intrauteral device) Unchanged metoprolol (metoprolol succinate 50 mg oral tablet, extended release) 1 tab Oral (given by mouth) 2 times a day POTS (postural orthostatic tachycardia syndrome) Migraines Duration: 90 Days Unchanged montelukast (montelukast 10 mg oral tablet) 1 tab Oral (given by mouth) Every day Unchanged pantoprazole (Protonix 40 mg oral delayed release tablet) 1 tab Oral (given by mouth) Every day Unchanged tezepelumab (Tezspire Pre-filled Pen 210 mg/ 1.91 mL subcutaneous solution) 210 Milligrams Subcutaneous (under the skin) Every 4 weeks Asthma Pharmacy Information [facility]: [address] [place] [address] [phone] Your Summary Your Care Team Admitting Physician - Austen Funez MD Attending Physician - Austen Funez MD Primary Care Physician - KEVEN PURI DNP Referring Physician - Austen Funez MD Your Diagnosis Cervical spinal stenosis S/P cervical spinal fusion Problems Ongoing - Any problem that you are currently receiving treatment for. Anemia Anxiety Asthma Bilateral sacroiliitis Cervical spinal stenosis Cervical spondylosis Pedraza sign present Hyperreflexia Insomnia Lower extremity weakness Menstrual abnormality Migraine headache with aura Migraine with aura, not intractable, without status migrainosus Neck pain Neuroforaminal stenosis of cervical spine Paresthesias POTS (postural orthostatic tachycardia syndrome) S/P cervical spinal fusion Sleep apnea Upper extremity weakness Procedures Performed ???Anterior Cervical Fusion (01/18/2024) Tests Performed/Pending Urine Qual POCT XR Spine Cervical 1 View Discharge Vitals Temperature??(Temporal Artery) 97.7 ??F (36.5 ??C) Heart Rate??(Peripheral) 87 Respiratory Rate?? 16 Blood Pressure?? 96/52?? SpO2?? 97% Height?? 64.96 in (165 cm) Weight?? 170.03 lb (77.11 kg) BMI?? 28.32 Allergies vancomycin??(Swelling of oral cavity structure, Fever) Banana??(stomsch upset) Cats??(Rash) Dogs??(Rash) Dust??(Rash) Gallia??(Stomach upset) Tape??(Skin irritation) budesonide-formoterol??(Rash, Hives) formoterol-mometasone??(Hives, Rash) Devices Implanted/Removed This Visit Notice: You have devices implanted this visit that may not be MRI compatible. Implanted Anterior Cervical Fusion Neck ???GRAFT BONE RIKA ELITE SMALL 1.2CC 01/18/2024???SABRA SPACER [id number] TC 6 DEG SM 6MM 01/18/2024???SABRA SPACER [id number] TC 6 DEG SM 6MM 01/18/2024???PLATE ZEVO 33MM 2 LVL 01/18/2024???SCREW [id number] ZEVO BERTRAM SD 3.5MM X 13MM (6), 01/18/2024 Education Materials Disharge Instructions: [facility] What to Watch Out For These symptoms should cause you to call immediately or dial 911 to come to the emergency department. ? New weakness or decreased ability to fully move your upper or lower extremities ? Severe chest pain, difficulty breathing ? Loss of control of your bowels and bladder The following symptoms may indicate a problem. Contact office number below. ? Fever higher than 101 F ? Increasing back and/or leg pain ? Difficulty passing urine ? New numbness or change in symptoms from before surgery ? Redness or drainage from the incision ? Unusual headache, especially if it is much worse when you stand up ? Calf pain or swelling Follow up appointment: Call spine office to schedule a follow up appointment within 10-14 days after your surgery. For questions after the surgery, call [facility] at: [phone]. After hours, the answering service will respond. In the case of an emergency call 911. ? Medications: ? Resume medications as prescribed Remember your Spine Precautions ? Try to avoid bending ? Minimize twisting ? No Heavy Lifting??(avoid heavy lifting (use a gallon of milk, which weighs about 8 pounds, as a guide for the maximum weight that can be lifted)). ? No Pulling/Pushing ? [place] [address] ? *DCIN* ? DCIN Discharge Instructions [facility]?? Page 1 of 4 Incision Care If you have (refer to ?? section): ? Wendy/Sutures: They will be removed during your follow up visit. ? Steri- Strips: They will fall off on their own after the first week. ? If your incision is covered with gauze:?? Keep it covered until 5 days after your surgery, thenyou may leave it open to air if completely dry. ? Dermabond is a liquid skin adhesive that holds open wounds or incision sites together by adhering skin edges together. Ok to leave incision open to air. Do not apply any body oils, lotions or makeup to the area surrounding the Dermabond or on the film. These products will prematurely loosen theDermabond film. Avoid areas that cause increase sweating (e.g. tanning beds, saunas, excess sunlight exposure, physical exertion) Shower ? You may shower 5 days after your surgery, let water run on incision and pat dry. Do not apply lotion or soap to incision. No Baths. Showers are ok to keep incision clean, but baths, swimming, and hot tubs are off limits because of the risk of infection. It is best not to point the shower head directly at the incision, but the incision can get wet. It is good to let soapy water run over the incision but not to scrub or directly wash the incision. Activity: ? Start daily walking program and increase each day. Taking several walks throughout the day, every few hours, is best. Short walks in the home can be helpful as well. ? Sleeping on the side or back is recommended versus sleeping your stomach (Cervical fusion patients) ? General rule: If it hurts you should probably refrain from that activity ? Return to Work/School: ?? when able Click or tap here to enter text. weeks/days ?? not until follow up Additional instructions: ___ ? Patient Identification ? [facility] [address] [place] [address] ? DCIN Discharge Instructions [facility] ?? Page 2 of 4 Tips for taking pain medicine ? Pain medicines can upset your stomach. Taking them with a little food may help. ? Most pain relievers taken by mouth need at least 20 to 30 minutes to start to work. ? Taking medicine on a schedule can help you remember to take it. Try to time your medicine so that you can take it before starting an activity. ? Constipation is a common side effect of narcotic pain medicines. Drinking fluids and eating foods high in fiber can help. Here are some over the counter stool softeners that may also help if symptomscontinue: Miralax, Colace, or Ducolax. ? Drinking alcohol and taking pain medicine can cause dizziness and slow your breathing. It can even be deadly. Do not drink alcohol while taking pain medicine. ? Pain medicine can make you react more slowly to things. Do not drive or run machinery while taking pain medicine. ? If you have obstructive sleep apnea, please use home C-pap as prescribed especially after taking pain medications before naps/bedtime. ? Try to wean off narcotic pain medication as pain decreases in severity. ? Tips for managing nausea- Some people have an upset stomach after surgery. This is often because ofanesthesia, pain, or pain medicine, or the stress of surgery. These tips will help you handle nausea as you get better. ? Start off with clear liquids and soup. They are easier to digest. ? Next try semi-solid foods, such as mashed potatoes, applesauce, and gelatin, as you feel ready. ? Slowly move to solid foods. Try to stay away from fatty, rich, or spicy foods. ? Do not force yourself to have 3 large meals a day. Instead eat smaller amounts more often. ? Take pain medicines with a small amount of solid food, such as crackers or toast, to avoid nausea. ? Patient Identification ? [address] [place] [address] ? DCIN Discharge Instructions [facility]?? Page 3 of 4 Questions for your provider (please write below): ? I have read these instructions, and understand them as they have been explained to me. ? Date (Patient???s Signature) Date/Time (Discharge Nurse???s Signature) ? Patient Identification ? [place] [address] ? DCIN Discharge Instructions [facility]?? Page 4 of 4 Medication Information acetaminophen and hydrocodone?? (a SEET a MIN oh fen and lavelle DANG done) ?? Verdrocet? What is the most important information I should know about acetaminophen and hydrocodone? MISUSE OF OPIOID MEDICINE CAN CAUSE ADDICTION, OVERDOSE, OR .?Keep the medication in a place where others cannot get to it. ?? Taking opioid medicine during may cause life-threatening withdrawal symptoms in the . ?? Fatal side effects can occur if you use opioid medicine with alcohol, or with other drugs that cause drowsiness or slow your breathing. ?? Stop taking this medicine and call your doctor right away if you have skin redness or a rash that spreads and causes blistering and peeling.? What is acetaminophen and hydrocodone? Acetaminophen and hydrocodone is a combination medicine used to relieve moderate to severe pain. ?? Acetaminophen and hydrocodone contains an opioid medicine, and may be habit- forming. ? Acetaminophen and hydrocodone may also be used for purposes not listed in this medication guide. ?? What should I discuss with my healthcare provider before taking acetaminophen and hydrocodone? You should not use this medicine if you are allergic to acetaminophen or hydrocodone, or if you have: ?severe asthma or breathing problems; or ?a blockage in your stomach or intestines. ?? Tell your doctor if you have ever had: ?breathing problems, sleep apnea (breathing stops during sleep); ?liver disease; ?a drug or alcohol addiction; ?kidney disease; ?a head injury or seizures; ?urination problems; or ?problems with your thyroid, pancreas, or gallbladder. ?? If you use opioid medicine while you are , your baby could become dependent on the drug.?This can cause life-threatening withdrawal symptoms in the baby after it is born. Babies born dependent on opioids may need medical treatment for several weeks. ?? Ask a doctor before using opioid medicine if you are .??Tell your doctor if you noticesevere drowsiness or slow breathing in the nursing baby.? How should I take acetaminophen and hydrocodone? Follow all directions on your prescription label.??Never take this medicine in larger amounts, or for longer than prescribed. ??An overdose can damage your liver or cause .??Tell your doctor if you feel an increased urge to use more of this medicine. ?? Never share this medicine with another person, especially someone with a history of drug abuse or addiction. ??MISUSE CAN CAUSE ADDICTION, OVERDOSE, OR .?Keep the medicine in a place where others cannot get to it. ??Selling or giving away this medicine is against the law.? Measure??liquid medicine??carefully. Use the dosing syringe provided, or use a medicine dose-measuring device (not a kitchen spoon). ?? If you need surgery or medical tests, tell the doctor ahead of time that you are using this medicine.? You should not stop using this medicine suddenly.?Follow your doctor's instructions about tapering your dose. ?? Store at room temperature away from moisture and heat. Keep track of your medicine. You should be aware if anyone is using it improperly or without a prescription. ?? Do not keep leftover opioid medication.??Just one dose can cause in someone using this medicine accidentally or improperly.??Ask your pharmacist where to locate a drug take-back disposal program. If there is no take-back program, flush the unused medicine down the toilet. ?? What happens if I miss a dose? Since this medicine is used for pain, you are not likely to miss a dose. Skip any missed dose if itis almost time for your next dose.??Do not??use two doses at one time. ?? What happens if I overdose? Seek emergency medical attention or call the Poison Help line at .??An overdose of this medicine can be fatal, especially in a child or other person using the medicine without a prescription.??Overdose symptoms may include nausea, vomiting, sweating, severe drowsiness, pinpoint pupils, slow breathing, or no breathing. ?? Your doctor may recommend you get naloxone (a medicine to reverse an opioid overdose) and keep it with you at all times. A person caring for you can give the naloxone if you stop breathing or don't wake up. Your caregiver must still get emergency medical help and may need to perform CPR (cardiopulmonary resuscitation) on you while waiting for help to arrive. ?? Anyone can buy naloxone from a pharmacy or local health department. Make sure any person caring foryou knows where you keep naloxone and how to use it. ?? What should I avoid while taking acetaminophen and hydrocodone? Avoid driving or operating machinery until you know how this medicine will affect you. Dizziness ordrowsiness can cause falls, accidents, or severe injuries. ?? Do not drink alcohol.?Dangerous side effects or could occur. ?? Ask a doctor or pharmacist before using any other medicine that may contain acetaminophen (sometimes abbreviated as APAP).??Taking certain medications together can lead to a fatal overdose. ?? What are the possible side effects of acetaminophen and hydrocodone? Get emergency medical help if you have??signs of an allergic reaction:?hives; difficulty breathing; swelling of your face, lips, tongue, or throat. ?? Opioid medicine can slow or stop your breathing, and may occur.??A person caring for you should give naloxone and/or seek emergency medical attention if you have slow breathing with long pauses, blue colored lips, or if you are hard to wake up. ?? In rare cases, acetaminophen may cause a severe skin reaction that can be fatal.?This could occur even if you have taken acetaminophen in the past and had no reaction.??Stop taking this medicine and call your doctor right away if you have skin redness or a rash that spreads and causes blisteringand peeling.? Call your doctor at once if you have: ?noisy breathing, sighing, shallow breathing, breathing that stops; ?a light-headed feeling, like you might pass out; ?liver problems--nausea, upper stomach pain, tiredness, loss of appetite, dark urine, ramiro-colored stools, jaundice (yellowing of the skin or eyes);?low cortisol levels-- nausea, vomiting, loss of appetite, dizziness, worsening tiredness or weakness; o ?high levels of serotonin in the body--agitation, hallucinations, fever, sweating, shivering, fast heart rate, muscle stiffness, twitching, loss of coordination, nausea, vomiting, diarrhea. ?? Serious breathing problems may be more likely in older adults and in those who are debilitated or have wasting syndrome or chronic breathing disorders. ?? Common side effects include: ?dizziness, drowsiness, feeling tired; ?nausea, vomiting, stomach pain;?constipation; or ?headache. ?? This is not a complete list of side effects and others may occur. Call your doctor for medical advice about side effects. You may report side effects to FDA at 7-024-KRK-7992. ?? What other drugs will affect acetaminophen and hydrocodone? You may have breathing problems or withdrawal symptoms if you start or stop taking certain other medicines.?Tell your doctor if you also use an antibiotic, antifungal medication, heart or blood pressure medication, seizure medication, or medicine to treat HIV or hepatitis C. ?? Opioid medication can interact with many other drugs and cause dangerous side effects or .?Be sure your doctor knows if you also use: ?cold or allergy medicines, bronchodilator asthma/COPD medication, or a diuretic ('water pill'); ?medicines for motion sickness, irritable bowel syndrome, or overactive bladder; ?other opioids--opioid pain medicine or prescription cough medicine; ?a sedative like Valium--diazepam, alprazolam, lorazepam, Xanax, Klonopin, Versed, and others; ?drugs that make you sleepy or slow your breathing--a sleeping pill, muscle relaxer, medicine totreat mood disorders or mental illness; ?drugs that affect serotonin levels in your body--a stimulant, or medicine for depression, Parkinson's disease, migraine headaches, serious infections, or nausea and vomiting. ?? This list is not complete. Other drugs may affect acetaminophen and hydrocodone, including prescription and [id number] medicines, vitamins, and herbal products.??Not all possible interactions are listed here.? Where can I get more information? Your doctor or pharmacist can provide more information about acetaminophen and hydrocodone. ?? Remember, keep this and all other medicines out of the reach of children, never share your medicines with others, and use this medication only for the indication prescribed. ?? Every effort has been made to ensure that the information provided by [employer]. ('[employer]') is accurate, up-to-date, and complete, but no guarantee is made to that effect. Drug information contained herein may be time sensitive. [employer] information has been compiled for use by healthcare practitioners and consumers in the [place] and therefore [employer] does not warrant that uses outside of the [place] are appropriate, unless specifically indicated otherwise. [employer] drug information does not endorse drugs, diagnose patients or recommend therapy. [employer] drug information isan informational resource designed to assist licensed healthcare practitioners in caring for their p atients and/or to serve consumers viewing this service as a supplement to, and not a substitute for, the expertise, skill, knowledge and judgment of healthcare practitioners. The absence of a warningfor a given drug or drug combination in no way should be construed to indicate that the drug or drug combination is safe, effective or appropriate for any given patient. [employer] does not assume any responsibility for any aspect of healthcare administered with the aid of information [employer] provides. The information contained herein is not intended to cover all possible uses, directions, precautions, warnings, drug interactions, allergic reactions, or adverse effects. If you have questions about the drugs you are taking, check with your doctor, nurse or pharmacist.? Copyright 3698-2119 [employer]. Version: 19.02. Revision Date: 06/02/2023. ? Patient/Database Analyst Signature Patient Name:KIANA ISABEL I I have received this information and my questions have been answered. Patient/Database Analyst Name: Patient/Database Analyst Signature: Relationship to Patient: Witness Name/Signature: Date: Electronically Signed on: 01/19/2024 08:18 ESTSigned by:CC Discharge summary * NIKKI McdowellP: PERFORM Event Display: Discharge Summary Authored Date: [id number] KIANA ISABEL I :1990 Age:33 years Sex:Female Visit Date:01/18/2024 Primary Care Physician: [facility], [facility] Course The patient underwent ACDF C4-5 and C5-[address] Funez yesterday.?This morning she has??some pain in her posterior neck and upper back region but she states this is more muscular in nature and a different quality than the pain she had preoperatively.?? She has some lingering paresthesias and weakness particular of her hands but these have improved as well. ??She is not experiencing a radicular pain. ??She has been ambulatory without difficulty and feels that her balance is fine.?? She does find the prescribed??Vicodin helpful in managing this postoperative pain.?? She is tolerating foodand fluids without any difficulty.?? She states that she does have some discomfort in her throat but again no difficulty swallowing. Physical Exam Vitals & Measurements T:??36.5?C ??(Temporal Artery)?? TMIN:??36.5?C ??(Temporal Artery)?? TMAX:??37.3?C ??(Temporal Artery)?? HR:??87??(Peripheral)?? RR:??16?? BP:??96/52?? SpO2:??97%?? HT:??165??cm?? WT:??77.11??kg?? BMI:??28.32?? Pain Score:??2?? O2 Flow Rate:??2?? O2 Therapy:??Room air?? BSA:??1.88?? General: The patient is lying in bed and is pleasant and conversant. The voice is normal. Respiratory: Respirations are unlabored. Neurological: Full power bilateral upper extremities. Dermatological: The anterior cervical wound is flat and dry. Procedure/Surgical History ???Anterior Cervical Fusion (01/18/2024)???Colonoscopy (2019)??? section (09/03/2015)???Extraction of wisdom tooth Social History Alcohol Never Electronic Cigarette/Vaping Electronic Cigarette Use: Never, Unknown/not obtained. Substance Use Never Tobacco Never tobacco user, Tobacco use status unknown Tobacco Use:. Discharge Plan 1.??Cervical spinal stenosis??M48.02 Ordered: Discharge Patient, 01/19/24 8:08:00 EST, Home Independently, Constant Indicator ?? 2.??S/P cervical spinal fusion??Z98.1 Ordered: Discharge Patient, 01/19/24 8:08:00 EST, Home Independently, Constant Indicator ?? Orders: HYDROcodone-acetaminophen 5 mg-325 mg oral tablet, 1 tab, Oral, every 6 hr, PRN as needed for pain,May increase to 2 tab TID PRN but use caution due to increased risk of sedation., # 40 tab, 0 Refill(s), Pharmacy: [facility], 165, cm, 01/18/24 16:29:00 EST, Height, 77.11, kg, 01/12/24 8:5... The patient underwent two-level ACDF yesterday.?? She is doing well this morning with the expected postoperative pain??and she has already noticed a??difference in the quality of her neck pain which is reassuring. ??She is already had improvement of the paresthesias and weakness of her upper extremities as well which is??also very reassuring.?? She will be discharged home with a short prescription of the Vicodin to take as needed. ??She can also utilize her muscle relaxer, cyclobenzaprine as needed.?? She was instructed to participate in light activity only for now. ??She can shower as neededbut should not submerge the cervical wound. ??She will follow-up in the office next week. Plan: Follow-up postoperative visit. All Diagnoses This Visit Cervical spinal stenosis S/P cervical spinal fusion Patient Education [place] - Dr. Funez - [facility] Discharge Instructions (CUSTOM) Follow Up With When Contact Information Austen Funez MD Within 1 week [address] [place] [address] Additional Instructions: Medication Reconciliation Changed HYDROcodone-acetaminophen (HYDROcodone-acetaminophen 5 mg-325 mg oral tablet)1 tab Oral (given by mouth) every 6 hours as needed as needed for pain. May increase to 2 tab TID PRN but use caution due to increased risk of sedation.. Refills: 0. ?? cyclobenzaprine (cyclobenzaprine 5 mg oral tablet)1 tab Oral (given by mouth) 3 times a day as needed as needed for muscle spasm. May increase to 2 tab TID PRN. Use caution due to risk of sedation.. Refills: 1. ?? fluticasone/umeclidinium/vilanterol (Trelegy Ellipta 200 mcg-62.5 mcg-25 mcg/inh inhalation powder)1 Inhalation every day. ?? hydrOXYzine (hydrOXYzine hydrochloride 25 mg oral tablet)1 tab Oral (given by mouth) every day as needed as needed for anxiety. ?? Unchanged albuterol (albuterol 1.25 mg/3 mL (0.042%) inhalation solution)90 mL, 0 Refill(s), INHALE ONE VIAL VIA NEBULIZER FOUR TIMES A DAY NEEDED FOR SHORTNESS OF BREATH OR WHEEZING. ?? albuterol (Ventolin HFA 90 mcg/inh inhalation aerosol)2 Puffs Inhale (breathe in) every 6 hours. 18g, INHALE 2 PUFFS BY MOUTH EVERY 6 HOURS NEEDED FOR SHORTNESS OF BREATH OR WHEEZING. Refills: 3. ?? eletriptan (Relpax 20 mg oral tablet)1 tab Oral (given by mouth) every day as needed as needed for migraine headache. may repeat dose once in 2 hours. Refills: 1. ?? erenumab (erenumab-aooe 70 mg/mL subcutaneous solution)70 Milligrams Subcutaneous (under the skin) once a month. Refills: 6. ?? escitalopram (Lexapro 20 mg oral tablet)1 tab Oral (given by mouth) every day. ?? gabapentin (gabapentin 100 mg oral capsule)1 Capsules Oral (given by mouth) 3 times a day. Refills:6. ?? levonorgestrel (Mirena 52 mg intrauteral device) ?? metoprolol (metoprolol succinate 50 mg oral tablet, extended release)1 tab Oral (given by mouth) 2 times a day for 90 Days. Refills: 1. ?? montelukast (montelukast 10 mg oral tablet)1 tab Oral (given by mouth) every day. ?? pantoprazole (Protonix 40 mg oral delayed release tablet)1 tab Oral (given by mouth) every day. Refills: 4. ?? tezepelumab (Tezspire Pre-filled Pen 210 mg/1.91 mL subcutaneous solution)210 Milligrams Subcutaneous (under the skin) every 4 weeks. Refills: 5. Electronically Signed on 01/19/2024 08:09 EST WALT Mcdowell Patient Care team information Care Team Personnel Name: KEVEN PURI DNP Position: No Access Member Role: Primary Care Physician Address: [address] [address]- [place] Care Team Related Persons Name: JOAQUIM MCCOY Name: JENIFFER GALLEGOS Name: MERLE JARRETT Insurance Providers Guarantor name: KIANA Fam [facility] Information #: 1 Payer: [place] Member Number: [id number] Policy Number: NA Health Plan Information #: 2 Payer: [place] Member Number: [id number] Policy Number: NA
--- OUTSIDE RECORDS SUMMARY | 2024-03-18 15:49 | XMS_ITS | Encounter Summary ---
Author Organization [facility] Address [address] [place] [address] Care Team Providers Care Leave Manager Name Role Phone Nadja Doan PASCALE Primary Care Provider [phone] Butch Yanes MD Unavailable Unavailable Encounter Details Date Type Department Care Team (Late st Contact Info) Description 2021 Lab Requisition [facility] Pathology & Laboratory Medicine - [address] [id number] Outr Resulting Lab, Provider Social History Tobacco [...] 2021 10:1 5 EST 2021 21:06 EST us Provider Outr Resulting Lab MICROBIOLOGY - GENER AL ORDERABLES Final Result Performing Organization Address City/[facility] Co de Phone Number [facility] [address] [place] [address] * COVID-19 TESTING (2021 10:15 EST) COVID-19 rt-PCR Result Negative Negative 03/12/2021 0:56 EST [facility] Comment: This test has [...] history, and epidemiological information. Performed on the [employer] Fusion instrument Performing Lab [place] [facility] 03/12/2021 0:56 EST [facility] Swab 2021 10:1 5 EST 2021 21:06 EST us Provider Outr Resulting Lab MICROBIOLOGY - GENER AL ORDERABLES Final Result Performing Organization Address City/[facility]/ZIP Co de Phone Number [facility] [address] [place] [address] documented in this encounter Visit Diagnoses Not on filedocumented in this encounter Care Teams Leave Manager Relationship Specialty Start Date End Date Nadja [place]an [place] [address] PCP - General 12/24/18 Butch Yanes MD [address] [place] [address] 12/24/18 documented as of this encounter
--- OUTSIDE RECORDS SUMMARY | 2024-03-18 15:50 | XMS_ITS | Encounter Summary ---
Author Organization [facility] [place] [address] Care Team Providers Care Clerical Grader Name Role Phone Nadja Doan APRN Primary Care Provider [phone] Reason for Visit * Consultation (Routine) - Closed Specialty Diagnoses / Procedures Referred By Renzo t Referred To Contact Audiology Diagnoses Dizziness and giddiness VNG abnormal auditory perception, unspecified laterality Dizziness Arie Hunter, DO [address] [place] [address] [facility] [address] [place] [phone] Referral ID Status Reason Start Date Expiration Date Visits Re quested Visits Authorized [id number] Closed 11/02/2020 11/02/2021 1 1 Encounter Details Date Type Department Care Team (Latest Contact Info) Description 01/16/2021 1:00 PM EST Procedure visit Audiology at [address] [phone] Frances Duran, ADELAIDE Dizziness; Sensorineural hearing loss (SNHL) of left [...] of this encounter Progress Notes * Frances Duran AUD - 01/16/2021 1:00 PM EST AUDIOLOGY SECTION [place] VIDEONYSTAGMOGRAPHY AND AUDIOLOGIC EVALUATION 01/16/2021 PPE used during visit: Goggles, Level 2 mask BACKGROUND Miya Merritt, age 30 y.o., was referred for the present testing as part of a comprehensive dizziness evaluation by Dr. Arie Hunter, ENT/Blayne Terry PA-C of [facility] Otolaryngology. She has a history of lightheadedness, [...] A request was sent by a ENT front office secretary for a clearer copy of the audiogram [...] was completed by Reva Waite MS, doctoral loan consultant, under direct supervision of Adelaide Soarse, clinical Outreach Team Member. Otoscopic inspection confirmed that the ear canals [...] Testing: Position Nystagmus ??/second Subjective Symptoms Modified [place] Right Negative Denied Modified [place] Left Negative Feeling a little spinny [...] clinic for immediate re-evaluation. Zeenat Soares Clinical Outreach Team Member [facility] [phone] documented in this encounter Plan of Treatment Upcoming Encounters Date Type Department Care Team (Late st Contact Info) Description 07/07/2024 4:00 PM EDT TH Visit (TeleHealth) Sleep Center at [facility] [address] [place] [address] Rae Valdivia MD [facility] [place] [address] documented as of this encounter Procedures Procedure [...] ear documented in this encounter Care Teams Clerical Grader Relationship Specialty Start Date End Date [place] [address] PCP - General Family Medicine 11/19/20 11/20/22 documented as of this encounter
--- OUTSIDE RECORDS SUMMARY | 2024-03-18 15:50 | XMS_ITS | Encounter Summary ---
Author Organization [facility] [place] [address] Care Team Providers Care Veneer Production Machine Operator Name Role Phone Hieu Lombardi DNP Primary Care Provider [phone] Encounter Details Date Type Department Care Team (Late st Contact Info) Description 12/28/2023 Telephone [place] [phone] Essence Solano Social History Tobacco Use Types Packs/Day Years Used Date Smoking Tobacco: Never Smokeless Tobacco: Never Alcohol Use Standard Drinks/Week Comments No 0 (1 standard drink = 0.6 oz pur e alcohol) Sex and Gender Information Value Date Recorded Sex Assigned at Not on file Gender Identity Not on file Sexual Orientation Not on file documented as of this encounter Plan of Treatment Upcoming Encounters Date Type Department Care Team (Late st Contact Info) Description 07/07/2024 4:00 PM EDT TH Visit (TeleHealth) Sleep Center at [facility] [address] [place] [address] Rae Valdivia MD [facility] DR [place] [address] documented as of this encounter Visit Diagnoses Not on filedocumented in this encounter Care Teams Veneer Production Machine Operator Relationship Specialty Start Date End Date Hieu Lombardi DNP [address] [place] [address] PCP - General Family Medicine 11/21/22 documented as of this encounter
--- OUTSIDE RECORDS SUMMARY | 2024-03-18 15:50 | XMS_ITS | Encounter Summary ---
Author Organization [facility] [place] [address] Care Team Providers Care Repairer General Name Role Phone Hieu Lombardi DNP Primary Care Provider [phone] Reason for Referral * Consultation (Routine) - Closed Specialty Diagnoses / Procedures Referred By Contcelio t Referred To Contact Sleep Center Diagnoses Sleep apnea, unspecified type Hieu Lombardi DNP [address] [place] [address] [facility] Sleep Medicine [address] [place] [address] Referral ID Status Reason Start Date Expiration Date V isits Requested Visits Authorized [id number] Closed Consult, Test & Treat PCP Updated and/or Approved 11/21/2022 11/21/2023 1 1 Encounter Details Date Type Department Care Team (Latest Contact Info) Description 11/21/2022 Transcribe Orders eDH Incoming Referrals [phone] Hieu Lombardi DNP [address] [facility] [address] [place], [place] [id number] Sleep apnea, unspecified type Social History Tobacco [...] EDT TH Visit (TeleHealth) Sleep Center at [facility] [address] [place] [address] Rae Valdivia MD [facility] [place] [address] Scheduled Referrals Name Type Priority Associated Diagnoses Orde r Schedule Referral to Sleep Disorders Center Outpatient Referral Routine Sleep apnea, unspecified type Ordered: 11/21/2022 documented as of this encounter Visit Diagnoses Diagnosis Sleep apnea, unspecified type documented in this encounter Care Teams Repairer General Relationship Specialty Start Date End Date Hieu Lombardi DNP [address] [place], [place] [address] [place] [address] PCP - General Family Medicine 11/21/22 documented as of this encounter
--- OUTSIDE RECORDS SUMMARY | 2024-03-18 15:50 | XMS_ITS | Encounter Summary ---
Author Organization [facility] Address [address] [place] [address] Care Team Providers Care Welding Machine Setter Name Role Phone Butch Yanes MD Primary Care Provider Brian rasmussen Encounter Details Date Type Department Care Team (Latest Contact Info) Description 06/14/2013 8:43 EDT - 06/14/2013 23:59 EDT Hospital Encounter [address] [address] Unknown, Provider, Discharge Disposition: Home or Self [...] this encounter Medications at Time of Discharge VITS W-CA,FE,FA,<1MG, ( #2 ORAL) Take 1 Tab by mouth daily. documented as of this encounter Discharge Disposition Disposition Code Departure Means Destination Home or Self Longterm documented in this encounter Plan of Treatment Not on file documented as of this encounter Visit Diagnoses Not on filedocumented in this encounter Care Teams Welding Machine Setter Relationship Specialty Start Date End Date Butch Yanes MD PCP - General 05/24/09 12/23/18 documented as of this encounter
--- OUTSIDE RECORDS SUMMARY | 2024-03-18 15:50 | XMS_ITS | Encounter Summary ---
Author Organization [facility] [place] [address] Care Team Providers Care Batching Operator Name Role Phone Hieu Lombardi DNP Primary Care Provider [phone] Reason for Referral * Consultation (Routine) - [...] made asthma worse. Hieu Lombardi DNP [address] [place] [address] [facility] Cardiology [address] [place] [phone] Referral ID Status Reason Start Date Expiration Date V isits Requested Visits Authorized [id number] Closed Consult, Test & Treat 12/23/2022 12/23/2023 1 1 Encounter Details Date Type Department Care Team (Latest Contact Info) Description 12/23/2022 Transcribe Orders eDH Incoming Referrals [phone] Hieu Lombardi DNP [address] [phone] POTS (postural orthostatic tachycardia syndrome); Asthma, unspecified [...] EDT TH Visit (TeleHealth) Sleep Center at [facility] [address] [place] [address] Rae Valdivia MD [facility] [place] [address] Scheduled Referrals Name Type Priority Associated Diagnoses [...] persistent documented in this encounter Care Teams Batching Operator Relationship Specialty Start Date End Date Hieu Lombardi DNP [address] [place] [address] PCP - General Family Medicine 11/21/22 documented as of this encounter
--- OUTSIDE RECORDS SUMMARY | 2024-03-18 15:50 | XMS_ITS | Encounter Summary ---
Author Organization [facility] Address [facility] [place] [address] Care Team Providers Care Consulting Marine Engineer Name Role Phone Nadja Doan APRN Primary Care Provider [phone] Reason for Visit * Consultation (Routine) - Closed Specialty Diagnoses / Procedures Referred By Renzo t Referred To Contact Obstetrics and Gynecology Diagnoses Personal history of pre-term labor Encounter for supervision of normal , unspecified, unspecified trimester History of uterine scar from previous surgery Procedures TARGETED MORPHOLOGY ULTRASOUND MATERNAL MEDICINE CONSULT Sonya Franco, [address] [place] [address] [place] [address] [facility] Tile Installer [address] [place] [address] Referral ID Status Reason Start Date Expiration Date V isits Requested Visits Authorized [id number] Closed Consult, Test & Treat Connection Center PCP Updated and/or Approved 03/14/2021 03/14/2022 6 6 Encounter Details Date Type Department Care Team (Late st Contact Info) Description 05/20/2021 12:30 PM EDT Office Visit Obstetrics [place] [address] Jose G Nichole MD [facility] DR OBSTETRICS [place] [address] History of premature delivery, currently [...] 05/20/2021 12:30 PM EDT Asked by Sonya Franco, DO to see this 31 yo at [...] nap. Upon awaking, had bleeding. Drove to [facility]. SVE fully dilated. Kimmy arrived with team. [...] EDT TH Visit (TeleHealth) Sleep Center at [address] [address] Rae Valdivia MD [facility] DR SLEEP DIS[place] [address] documented as of this encounter Visit Diagnoses Diagnosis History of premature delivery, currently , second trimester Previous delivery affecting , antepartum Previous delivery, antepartum condition or complication documented in this encounter Care Teams Consulting Marine Engineer Relationship Specialty Start Date End Date [place] [address] PCP - General Family Medicine 11/19/20 11/20/22 documented as of this encounter
--- OUTSIDE RECORDS SUMMARY | 2024-03-18 15:50 | XMS_ITS | Encounter Summary ---
Author Organization [facility] Address [facility] [place] [address] Care Team Providers Care Cattle Tester Name Role Phone Hieu Lombardi DNP Primary Care Provider [phone] Encounter Details Date Type Department Care Team (Latest Contact Info) Description 11/05/2023 Interpretation [place] [address] Jb Villeda MD [facility] [place] [address] Asthma, unspecified asthma severity, unspecified whether complicated, [...] on file documented as of this encounter Procedure Notes * Jb Villeda MD - 11/05/2023 2:02 PM EDT See scanned data and interpretation performed remotely at [facility]. This encounter for billing only Spirometry with bronchodilator, DLCO, and Lung Volumes Jb Villeda MD, PhD Staff Physician Pulmonary and Critical Care Medicine documented in this encounter Plan of Treatment Upcoming Encounters Date Type Department Care Team (Late Contact Info) Description 07/07/2024 4:00 PM EDT TH Visit (TeleHealth) Sleep Center at [address] [place] [address] Rae Valdivia MD [facility] [place] [address] documented as of this encounter Visit Diagnoses Diagnosis Asthma, unspecified asthma severity, unspecified whether complicated, unspecified whether persistent documented in this encounter Care Teams Cattle Tester Relationship Specialty Start Date End Date Hieu Lombardi DNP [address] [place] [address] PCP - General Family Medicine 11/21/22 documented as of this encounter
--- OUTSIDE RECORDS SUMMARY | 2024-03-18 15:50 | XMS_ITS | Encounter Summary ---
Author Organization [facility] [place] [address] Care Team Providers Care Yard Supervisor Name Role Phone Nadja Doan JOSE Primary Care Provider [phone] Reason for Referral * Diagnostic Test (Routine) - Closed Specialty Diagnoses / Procedures Referred By Contac t Referred To Contact Radiology Diagnoses Personal history of pre-term labor Procedures US OB Detailed Morphology Sonya Edward DO [address] [place] [address] [place] [address] [place] [address] Referral ID Status Reason Start Date Expiration Date V isits Requested Visits Authorized [id number] Closed Specialty Service Requested 03/14/2021 09/11/2022 1 1 Reason for Visit * Diagnostic Test (Routine) - Closed Specialty Diagnoses / Procedures Referred By Contac t Referred To Contact Radiology Diagnoses Personal history of pre-term labor Procedures US OB Detailed Morphology Sonya Edward DO [address] [place] [address] [facility] [place] [address] Referral ID Status Reason Start Date Expiration Date V isits Requested Visits Authorized [id number] Closed Specialty Service Requested 03/14/2021 09/11/2022 1 1 Encounter Details Date Type Department Care Team (Latest Contact Info) Description 05/20/2021 11:15 AM EDT - 05/20/2021 11:59 PM EDT Hospital [place] [address] Sonya Edward DO [address] [place] [address] [place] [address] Personal history of pre-term labor Discharge Disposition: [...] EDT TH Visit (TeleHealth) Sleep Center at [facility] [address] [place] [address] Rae Valdivia MD [facility] [place] [address] documented as of this encounter Procedures Procedure [...] who have questions, please contact the health attending ambulatory care that requested your imaging first. ?Jose G Nichole, Staff Physician Electronically Signed Final Report ?? 05/21/2021 10:17 am Narrative 05/21/2021 10:18 AM EDT OBSTETRICS REPORT ?(Signed Final 05/21/2021 10:17 am) PATIENT INFO: ID #: ? [id number] ?: ??[birth year] (31 yrs)(F) Name: ? KIANA ISABEL ? Visit Date: 05/20/2021 11:25 am PERFORMED BY: Performed By: ? Tri Yang RDMS Attending: ?Dionisio DIEHL, Jose G Shanks Referred By: ?SONYA EDWARD Location: ? [place] SERVICE(S) PROVIDED: [facility] - Detailed Morphology - CLL232 ? 16523 UOBTVCER - Transvaginal ??2nd Trimester - ?32059 Cervical Length - [id number] INDICATIONS: 19 weeks gestation of ?Z3A.19 Prior [...] Arch: ? Visualized SVC: ? Visualized Cardiac Pine Top: ?Visualized Diaphragm: ? Visualized 3 Vessel View: [...] 05/21/2021 10:17 am) PATIENT INFO: ID #: [id number] : [birth year] (31 yrs)(F) Name: KIANA ISABEL Visit Date: 05/20/2021 11:25 am PERFORMED BY: Performed By: Tri Yang RDMS Attending: Jose G Nichole MD Referred By: SONYA EDWARD Location: [place] SERVICE(S) PROVIDED: [facility] - Detailed Morphology - [id number] 73038 UOBTVCER - Transvaginal 2nd Trimester - 21058 Cervical Length - [id number] INDICATIONS: 19 weeks gestation of Z3A.19 Prior [...] Visualized Ductal Arch: Visualized SVC: Visualized Cardiac Pine Top: Visualized Diaphragm: Visualized 3 Vessel View: Visualized [...] who have questions, please contact the health attending ambulatory care that requested your imaging first. Jose G Nichole, Staff Physician Electronically Signed Final Report 05/21/2021 10:17 am Sonya Edward DO IMG US OB ORDERABLES documented in this encounter Visit Diagnoses Diagnosis Personal history of pre-term labor documented in this encounter Care Teams Yard Supervisor Relationship Specialty Start Date End Date Olimpia [place] [address] PCP - General Family Medicine 11/19/20 11/20/22 documented as of this encounter
--- OUTSIDE RECORDS SUMMARY | 2024-03-18 15:50 | XMS_ITS | Encounter Summary ---
Author Organization [facility] Address [facility] [place] [address] Care Team Providers Care Vp Name Role Phone Hieu Lombardi DNP Primary Care Provider [phone] Reason for Visit * Consultation (Routine) - Authorized Specialty Diagnoses / Procedures Referred By Contac t Referred To Contact Pulmonology Diagnoses Unspecified asthma with (acute) exacerbation Postural orthostatic tachycardia syndrome (POTS) Hieu Lombardi DNP [address] [place] [address] [facility]mon[facility] [address] [place] [phone] Referral ID Status Reason Start Date Expiration Date Visits Requested Visits Authorized [id number] Authorized Consult, Test & Treat PCP Updated and/or Approved 11/19/2023 11/18/2024 6 6 Encounter Details Date Type Department Care Team (Latest Contact Info) Description 02/11/2024 11:00 AM EST TH Visit (TeleHealth) [place] [address] Romel Jo MD [facility] [place] [address] Extrinsic asthma with acute exacerbation, unspecified asthma severity, unspecified whether persistent Social History Tobacco Use [...] as of this encounter Progress Notes * Romel Jo MD - 02/11/2024 11:00 AM EST Images from the original note were not included. [facility] Section of Pulmonary and Critical Care Medicine Outpatient Consultation Date of Encounter: 02/11/24 Patient was a no show despite several calls, which she has not returned. Romel Jo MD documented in this encounter Plan of Treatment Upcoming Encounters Date Type Department Care Team (Late st Contact Info) Description 07/07/2024 4:00 PM EDT TH Visit (TeleHealth) Sleep Center at [facility] [address] [place] [address] Rae Valdivia MD [facility] SLEEP DIS[place] [address] Scheduled Referrals Name Type Priority Associated Diagnoses Orde r Schedule Referral to Pulmonology Outpatient Referral Routine Extrinsic asthma with acute exacerbation, unspecified asthma severity, unspecified whether persistent Ordered: 12/11/2023 documented as of this encounter Visit Diagnoses Diagnosis Extrinsic asthma with acute exacerbation, unspecified asthma severity, unspecified whether persistent documented in this encounter Care Teams Vp Relationship Specialty Start Date End Date Hieu Lombardi DNP [address] [place] [address] PCP - General Family Medicine 11/21/22 documented as of this encounter
--- OUTSIDE RECORDS SUMMARY | 2024-03-18 15:50 | XMS_ITS | Encounter Summary ---
Author Organization [facility] [place] [address] Care Team Providers Care Study Director Name Role Phone Nadja Doan APRN Primary Care Provider [phone] Reason for Referral * Diagnostic Test (Routine) - Closed Specialty Diagnoses / Procedures Referred By Contac t Referred To Contact Cardiology Diagnoses Tachycardia Procedures Ziopatch 48 Hrs-15 Days Zoran Cristina MD [facility] [place] [address] [facility] [place] [address] Referral ID Status Reason Start Date Expiration Date V isits Requested Visits Authorized [id number] Closed Specialty Service Requested 05/20/2021 11/20/2021 1 1 Reason for Visit * Diagnostic Test (Routine) - Closed Specialty Diagnoses / Procedures Referred By Contac t Referred To Contact Cardiology Diagnoses Tachycardia Procedures Ziopatch 48 Hrs-15 Days Zoran Crisitna MD [facility] [place] [address] [facility] [place] [address] Referral ID Status Reason Start Date Expiration Date V isits Requested Visits Authorized [id number] Closed Specialty Service Requested 05/20/2021 11/20/2021 1 1 Encounter Details Date Type Department Care Team (Latest Contact Info) Description 05/20/2021 10:00 AM EDT - 05/20/2021 11:14 AM EDT Hospital Encounter Non-[place] [address] Nazario Rowe MD [facility] [place] [address] Tachycardia Discharge Disposition: Home Social History Tobacco [...] EDT TH Visit (TeleHealth) Sleep Center at [address] [address] Rae Valdivia MD [facility] [place] [address] documented as of this encounter Procedures Procedure Name Priority Date/Time Associated Diagnosis Comments ZIOPATCH 48 HRS-15 DAYS Routine 05/20/2021 10:51 AM EDT Tachycardia documented in this encounter Results * Ziopatch 48 Hrs-15 Days (05/20/2021 10:51 AM EDT) Anatomical Region Laterality Modality Other Narrative 06/12/2021 2:25 PM EDT [facility] ? Zio Patch Ambulatory Cardiac Event Monitor [...] unspecified documented in this encounter Care Teams Study Director Relationship Specialty Start Date End Date [place] [address] PCP - General Family Medicine 11/19/20 11/20/22 documented as of this encounter
--- OUTSIDE RECORDS SUMMARY | 2024-03-18 15:50 | XMS_ITS | Encounter Summary ---
Author Organization [facility] [place] [address] Care Team Providers Care Tutoring Assistant Name Role Phone Unavailable Primary Care Provider Unavailabl e Encounter Details Date Type Department Care Team (Late st Contact Info) Description 11/14/2020 Notes [place] [address] Lianet Salas RN Social History Tobacco Use [...] our recommendation that you have a VNG. Associate Director Of Nursing is aware. documented in this encounter Plan of Treatment Upcoming Encounters Date Type Department Care Team (Late st Contact Info) Description 07/07/2024 4:00 PM EDT TH Visit (TeleHealth) Sleep Center at [facility] [address] [place] [address] Rae Valdivia MD [facility] [place] [address] documented as of this encounter Visit Diagnoses Diagnosis Dizziness Dizziness and giddiness documented in this encounter
--- OUTSIDE RECORDS SUMMARY | 2024-03-18 15:50 | XMS_ITS | Clinical Summary ---
Author Organization [facility] Address [facility] [place] [address] Care Team Providers Care Psychologists Name Role Phone Hieu Lombardi DNP Primary Care Provider [phone] Allergies Active Allergy Reactions Criticality Noted Date Comments Adhesive 12/31/2022 Banana Rash 06/25/2015 Cat Dander Other (See Comments) 12/31/2022 Dog Dander Other (See Comments) 12/31/2022 Formoterol Other (See Comments) 12/31/2022 House Dust Mite Other (See Comments) 12/31/2022 Pow[place]an 12/31/2022 Stone Fruit 08/27/2021 Facial swelling Budesonide-Formoterol [...] 08/27/2021 History of obstetric problem 04/17/2015 08/27/2021 Encounters Date Type Department Care Team Description 02/11/2024 11:00 AM EST TH Visit (TeleHealth) [place] [phone] Romel Jo MD Extrinsic asthma with acute exacerbation, unspecified asthma severity, unspecified whether persistent 12/28/2023 [place] [phone] Essence Solano from Last 3 Months Social History Tobacco Use Types Packs/Day Years [...] 02/25/2023 9:46 AM EST Plan of Treatment Upcoming Encounters Date Type Department Care Team (Late st Contact Info) Description 07/07/2024 4:00 PM EDT TH Visit (TeleHealth) Sleep Center at [address] [place] [address] Rae Valdivia MD [facility] DR SLEEP DISORD[place] [address] Health Maintenance Due Date Last Done Comments HIV screen 2008 Hepatitis C Screening 2008 Hepatitis B vaccine (0-59 yrs) (1) 2009 Tetanus/Diphtheria/Pertussis Vaccines (1 - Tdap) 2009 HPV test 2020 PAP Smear 2020 [...] capacity to make decision: Yes Care Teams Psychologists Relationship Specialty Start Date End Date Hieu Lombardi DNP [address] [place] [address] PCP - General Family Medicine 11/21/22
--- OUTSIDE RECORDS SUMMARY | 2024-03-18 15:50 | XMS_ITS | Encounter Summary ---
[place] [address] Care Team Providers Care Thermospray Operator Name Role Phone Hieu Lombardi DNP Primary Care Provider [phone] Reason for Referral * Consultation (Routine) - Authorized Specialty Diagnoses / Procedures Referred By Contcelio t Referred To Contact Pulmonology Diagnoses Unspecified asthma with (acute) exacerbation Postural orthostatic tachycardia syndrome (POTS) Hieu Lombardi DNP [address] [place] [address] [facility] [address] [place] [phone] Referral ID Status Reason Start Date Expiration Date Visits Requested Visits Authorized [id number] Authorized Consult, Test & Treat PCP Updated and/or Approved 11/19/2023 11/18/2024 6 6 Encounter Details Date Type Department Care Team (Latest Contact Info) Description 12/11/2023 Transcribe Orders eDH Incoming Referrals [phone] Hieu Lombardi DNP [address] [id number] Extrinsic asthma with acute exacerbation, unspecified asthma [...] EDT TH Visit (TeleHealth) Sleep Center at [facility] [address] [place] [address] Rae Valdivia MD [facility] [place] [address] Scheduled Referrals Name Type Priority Associated Diagnoses Orde r Schedule Referral to Pulmonology Outpatient Referral Routine Extrinsic asthma with acute exacerbation, unspecified asthma severity, unspecified whether persistent Ordered: 12/11/2023 documented as of this encounter Visit Diagnoses Diagnosis Extrinsic asthma with acute exacerbation, unspecified asthma severity, unspecified whether persistent documented in this encounter Care Teams Thermospray Operator Relationship Specialty Start Date End Date Hieu Lombardi DNP [address] [place] [address] PCP - General Family Medicine 11/21/22 documented as of this encounter
--- OUTSIDE RECORDS SUMMARY | 2024-03-18 15:50 | XMS_ITS | Encounter Summary ---
Author Organization [facility] [place] [address] Care Team Providers Care Manager Retention Name Role Phone Unavailable Primary Care Provider Unavailabl e Encounter Details Date Type Department Care Team (Late st Contact Info) Description 10/24/2015 Notes Only Obstetrics [place] [phone] Justina Oneal LPN Social History Tobacco Use [...] necessity paperwork for breast pump faxed to [employer] @ [phone]. documented in this encounter Plan of Treatment Upcoming Encounters Date Type Department Care Team (Late st Contact Info) Description 07/07/2024 4:00 PM EDT TH Visit (TeleHealth) Sleep Center at [facility] [address] [place] [address] Rae Valdivia MD [facility] [address] [place] [address] documented as of this encounter Visit Diagnoses Not on filedocumented in this encounter
--- OUTSIDE RECORDS SUMMARY | 2024-03-18 15:50 | XMS_ITS | Encounter Summary ---
Author Organization [facility] Address [address] [place] [address] Care Team Providers Care Yarn Man Name Role Phone Nadja Doan PASCALE Primary Care Provider [phone] Butch Yanes MD Unavailable Unavailable Encounter Details Date Type Department Care Team (Late st Contact Info) Description 01/24/2019 Lab Requisition [facility] Pathology & Laboratory Medicine - [facility] [address] [place] [address] Devi Ibrahim MD [address] [place] [address] Encounter for other general examination Social [...] no specific pathologic features. 01/26/2019 18:25 EST [facility]ORY [facility] at 1825 Clinical History Bloody diarrhea 01/26/2019 18:25 [facility] Attestation By the signature below, the attending physician certifies that they have personally conducted a gross and/or microscopic examination of the described specimens and rendered or confirmed the above diagnosis. 01/26/2019 18:25 [facility]ORY [facility] at 1825 Gross Description A. Received in formalin labelled with proper patient identification (initials R, S) and random Bx of descending colon +sigmoid are 12 fragments of pink-coe soft tissue (ranging from 0.2 cm to 0.5 cm in greatest dimension). The specimen is entirely submitted in A1-A4. Ines Toro 01/24/2019 16:00 01/26/2019 18:25 [facility] Scanned Images 01/26/2019 18:25 [facility] Tissue ENTIRE COLON / Unknown 01/24/2019 10:03 EST 01/24/2019 15:45 EST us Devi Ibrahim MD PATHOLOGY ORDERABLES Fin al Result [facility] [address] [place] [address] documented in this encounter Visit Diagnoses Diagnosis Encounter for other general examination documented in this encounter Care Teams Yarn Man Relationship Specialty Start Date End Date Nadja Doan FNP [address] [place] [id number] PCP - General 12/24/18 Butch Yanes MD [address] [place] [address] 12/24/18 documented as of this encounter
--- OUTSIDE RECORDS SUMMARY | 2024-03-18 15:50 | XMS_ITS | Encounter Summary ---
Author Organization [facility] Address [facility] [place] [address] Care Team Providers Care Analytical Tech Name Role Phone Nadja Doan APRN Primary Care Provider [phone] Encounter Details Date Type Department Care Team (Late st Contact Info) Description 03/05/2021 Telephone Cardiology at [address] [address] Nessa Roland LNA Social History Tobacco Use [...] 03/13/2021 12:22 PM EST No response to memory lane syndications message & Voicemail I left to review medications for 03/13/[address] Chatterjee. documented in this encounter Plan of Treatment Upcoming Encounters Date Type Department Care Team (Late st Contact Info) Description 07/07/2024 4:00 PM EDT TH Visit (TeleHealth) Sleep Center at [facility] [address] [place] [address] Rae Valdivia MD [facility] SLEEP DISORD[place] [address] documented as of this encounter Visit Diagnoses Not on filedocumented in this encounter Care Teams Analytical Tech Relationship Specialty Start Date End Date Nadja Doan APRN [facility] [place] [address] PCP - General Family Medicine 11/19/20 11/20/22 documented as of this encounter
--- OUTSIDE RECORDS SUMMARY | 2024-03-18 15:50 | XMS_ITS | Encounter Summary ---
Author Organization [facility] Address [facility] [place] [address] Care Team Providers Care Truck Driver Name Role Phone Hieu Lombardi DNP Primary Care Provider [phone] Encounter Details Date Type Department Care Team [...] EDT TH Visit (TeleHealth) Sleep Center at [address] [address] Rae Valdivia MD [facility] [address] SLEEP [place] [address] documented as of this encounter Visit Diagnoses Not on filedocumented in this encounter Care Teams Truck Driver Relationship Specialty Start Date End Date Hieu Lombardi DNP [address] [place] [address] PCP - General Family Medicine 11/21/22 documented as of this encounter
--- OUTSIDE RECORDS SUMMARY | 2024-03-18 15:50 | XMS_ITS | Encounter Summary ---
Author Organization [facility] Address [address] [place] [address] Care Team Providers Care Bus Mechanic Name Role Phone Steve Burns MD Primary Care Provider Brian rasmussen Encounter Details Date Type Department Care Team (Late st Contact Info) Description 07/28/2014 Results Only [facility] [phone] Nena Avilez, [facility] [address] [place] [phone] Social History Tobacco Use Types Packs/Day [...] ? MIYA GUILLEN ? Accession #: ? [id number] : ? 1990 (Age: 24) ??F ?Collect Date: ? 07/28/2014 Location: ? [facility] ? Receive Date: ? 07/31/2014 Provider: ?NENA AVILEZ HIP HOP PERFORMERS Copy to: ?STEVE BURNS MD ? Specimen/Source: [...] Report Date: ??08/07/2014 11:15 End of Report [facility] 07/28/2014 07/31/2014 us Nena Avilez HIP HOP PERFORMERS PATHOLOGY ORDERABLES Final R esult [facility] [address] [place] [address] documented in this encounter Visit Diagnoses Not on filedocumented in this encounter Care Teams Bus Mechanic Relationship Specialty Start Date End Date Steve Burns MD PCP - General 05/24/09 12/23/18 documented as of this encounter
--- OUTSIDE RECORDS SUMMARY | 2024-03-18 15:50 | XMS_ITS | Encounter Summary ---
Author Organization [facility] Address [address] [place] [address] Care Team Providers Care Rubber Goods Cutter Finisher Name Role Phone Steve Burns MD Primary Care Provider Brian rasmussen Encounter Details Date Type Department Care Team (Late st Contact Info) Description 06/14/2013 Results Only [facility] Laboratory Services - [facility] ([facility]) [address] [place], [place] [address] Nena Avilez, [facility] [address] [place] [phone] Social History Tobacco Use Types Packs/Day [...] ? MIYA GUILLEN ? Accession #: ? [id number] ? : ? 1990 (Age: 23) ??F ?Collect Date: ? 06/14/2013 ? Location: ? [facility] ? Receive Date: ? 06/15/2013 ? Provider: NENA AVILEZ DIAMOND DIE MAKER Copy to: STEVE BURNS MD ? Final Report SPECIMEN ADEQUACY ? Satisfactory for Evaluation - transformation zone component present GENERAL CATEGORIZATION ? Epithelial Cell Abnormality INTERPRETATION ? Squamous Cell Abnormality - Atypical squamous cells, undetermined significance (ASC-US). Shift in matt present suggestive of bacterial vaginosis. EDUCATIONAL NOTES/RECOMMENDATI ONS ? [facility] recommends following ASCCP's 2012 Updated Consensus Guidelines [...] types 16,18,31,33,35, 39,45,51,52,56,58, 59,66, and 68 by apparatus lineman mediated amplification. Comments Document reviewed and electronically signed by: ? System Interface ? Report date: 06/30/2013 By the signature above, the attending physician certifies that he/she has personally conducted a gross and/or microscopic examination of the described specimens and rendered or confirmed the above diagnosis. End of Report [facility] 06/14/2013 06/15/2013 Nena Avilez DIAMOND DIE MAKER PATHOLOGY ORDERABLES Final R esult Performing Organization Address City/State/[facility] Co de Phone Number [facility] [address] [place] [address] documented in this encounter Visit Diagnoses Not on filedocumented in this encounter Care Teams Rubber Goods Cutter Finisher Relationship Specialty Start Date End Date Steve Burns MD PCP - General 05/24/09 12/23/18 documented as of this encounter
--- OUTSIDE RECORDS SUMMARY | 2024-03-18 15:50 | XMS_ITS | Encounter Summary ---
Author Organization [facility] [place] [address] Care Team Providers Care Dining Room Maid Name Role Phone Unavailable Primary Care Provider Unavailabl e Encounter Details Date Type Department Care Team (Late st Contact Info) Description 11/14/2020 Telephone [place] [phone] Alyssa Montgomery Social History Tobacco Use Types Packs/Day Years Used Date Smoking Tobacco: Never Assessed Sex and Gender Information Value Date Recorded Sex Assigned at Not on file Gender Identity Not on file Sexual Orientation Not on file documented as of this encounter Miscellaneous Notes * Telephone Encounter - Alyssa Montgomery - 11/14/2020 8:11 AM EDT Miya was seen by [facility] where the referral came from, they [...] EDT TH Visit (TeleHealth) Sleep Center at [place] [address] [place] [address] Rae Valdivia MD [facility] [place] [address] documented as of this encounter Visit Diagnoses Not on filedocumented in this encounter
--- OUTSIDE RECORDS SUMMARY | 2024-03-18 15:50 | XMS_ITS | Encounter Summary ---
Author Organization [facility] Address [facility] Elvira [facility] [place] [address] Care Team Providers Care Biomedical Engineering Aide Name Role Phone Nadja Doan APRN Primary Care Provider [phone] Encounter Details Date Type Department Care Team (Late st Contact Info) Description 05/13/2021 Orders Only Cardiology at [address] [address] Nazario Rowe MD [facility] [place] [address] Tachycardia (Primary Dx); Dizziness Social History Tobacco [...] EDT TH Visit (TeleHealth) Sleep Center at [facility] [address] [place] [address] Rae Valdivia MD [facility] [place] [address] documented as of this encounter Visit Diagnoses Diagnosis Tachycardia- Primary Tachycardia, unspecified Dizziness Dizziness and giddiness documented in this encounter Care Teams Biomedical Engineering Aide Relationship Specialty Start Date End Date Nadja Doan APRN [address] [place] [address] PCP - General Family Medicine 11/19/20 11/20/22 documented as of this encounter
--- OUTSIDE RECORDS SUMMARY | 2024-03-18 15:50 | XMS_ITS | Encounter Summary ---
Author Organization [facility] [place] [address] Care Team Providers Care Vascular Surgery Physician Name Role Phone Hieu Lombardi DNP Primary Care Provider [phone] Encounter Details Date Type Department Care Team (Late st Contact Info) Description 12/16/2023 Tele[place] [phone] Essence Solano Social History Tobacco Use Types [...] EDT TH Visit (TeleHealth) Sleep Center at [facility] [address] [place] [address] Rae Valdivia MD [facility] [place] [address] documented as of this encounter Visit Diagnoses Not on filedocumented in this encounter Care Teams Vascular Surgery Physician Relationship Specialty Start Date End Date Hieu Lombardi DNP [address] [place] [address] PCP - General Family Medicine 11/21/22 documented as of this encounter
--- OUTSIDE RECORDS SUMMARY | 2024-03-18 15:50 | XMS_ITS | Encounter Summary ---
Author Organization [facility] [place] [address] Care Team Providers Care Memory Care Program Resident Name Role Phone Nadja Doan APRN Primary Care Provider [phone] Reason for Referral * Diagnostic Test (Routine) - Closed Specialty Diagnoses / Procedures Referred By Contac t Referred To Contact Cardiology Diagnoses Tachycardia Procedures Ziopatch 48 Hrs-15 Days Zoran Cristina MD [facility] CARDIOLOGY DEPT [place], [place] [address] [place] [address] [place] [address] Referral ID Status Reason Start Date Expiration Date V isits Requested Visits Authorized [id number] Closed Specialty Service Requested 05/20/2021 11/20/2021 1 1 Reason for Visit * Consultation (Routine) - Closed Specialty Diagnoses / Procedures Referred By Contac t Referred To Contact Cardiology Diagnoses Tachycardia Dizziness 04/2022 Tachycardia & dizziness Hieu Lombardi, XOCHILT [address] [facility] [address] [place] [address] [facility] Cardiology [address] [place] [phone] Referral ID Status Reason Start Date Expiration Date V isits Requested Visits Authorized [id number] Closed Consult, Test & Treat Connection Center PCP Updated and/or Approved 02/11/2021 02/11/2022 6 6 Encounter Details Date Type Department Care Team (Late st Contact Info) Description 05/20/2021 9:00 AM EDT Office Visit Cardiology at [address] [place] [address] Nazario Rowe MD [facility] [place] [address] Zoran Cristina MD Dizziness; Tachycardia Social History Tobacco Use Types [...] from the original note were not included. [facility] [place] [address] CARDIOLOGY OUTPATIENT NOTE PRIMARY CARE PROVIDER: Nadja Doan APRN REFERRING PROVIDER: Hieu Lombardi Subjective: Patient ID: Miya Merritt is a 31 y.o. female. HPI Miya Merritt is a 31 year old woman [...] the dizziness. She saw a neurologist at [facility] and underwent orthostatic vital signs though [...] creatinine 0.9; TSH was last performed in 2018 at 2.47 (normal), Her prior cardiac testing [...] a more significant arrhythmia. Nazario Rowe MD [facility] Cardiovascular Medicine documented in this encounter Plan of Treatment Upcoming Encounters Date Type Department Care Team (Late st Contact Info) Description 07/07/2024 4:00 PM EDT TH Visit (TeleHealth) Sleep Center at [facility] [address] [place] [address] Rae Valdivia MD [facility] DR SLE[place] [address] documented as of this encounter Procedures Procedure Name Priority Date/Time Associated Diagnosis Comments EKG 12-LEAD Routine 05/20/2021 9:07 AM EDT Dizziness Tachycardia documented in this encounter Results * Ziopatch 48 Hrs-15 Days (05/20/2021 10:51 AM EDT) Anatomical Region Laterality Modality Other Narrative 06/12/2021 2:25 PM EDT [facility] ? Zio Patch Ambulatory Cardiac Event [...] and PVCs ? Chemo Grijalva MD, FA, [facility] Nazario Rowe MD CARDIAC SERVICES ORD ERABLES * EKG 12 Lead (05/20/2021 9:07 AM EDT) Ventricular rate 86 BPM MUSE SYSTEM Atrial Rate 86 BPM MUSE SYSTEM P-R Interval 118 ms MUSE SYSTEM QRS Duration 78 ms MUSE SYSTEM Q-T Interval 368 ms MUSE SYSTEM QTC Calculated (Bezet) 440 ms MUSE SYSTEM Calculated P [place] 48 degrees MUSE SYSTEM Calculated R [place] 66 degrees MUSE SYSTEM Calculated T [place] 54 degrees MUSE SYSTEM INTERPRETATION Normal sinus rhythm Normal ECG No previous ECGs available Confirmed by MD Nguyen Danette ([id number]) on 05/20/2021 12:12:40 PM MUSE SYSTEM 05/20/2021 9:07 AM EDT 05/20/2021 12:12 PM EDT Nazario Rowe MD ECG ORDERABLES MUSE SYSTEM documented in this encounter Visit Diagnoses Diagnosis Dizziness Dizziness and giddiness Tachycardia Tachycardia, unspecified Tachycardia Tachycardia, unspecified documented in this encounter Care Teams Memory Care Program Resident Relationship Specialty Start Date End Date [place] [address] PCP - General Family Medicine 11/19/20 11/20/22 documented as of this encounter
--- OUTSIDE RECORDS SUMMARY | 2024-03-18 15:50 | XMS_ITS | Encounter Summary ---
Author Organization [facility] Address [facility] [place] [address] Care Team Providers Care Dry Cleaner Apprentice Name Role Phone Unavailable Primary Care Provider Unavailabl e Reason for Visit * Reason Onset Date Comments Results 10/19/2015 Encounter Details Date Type Department Care Team (Late st Contact Info) Description 10/19/2015 [place] [address] Iglesia Ramirez MD [facility] [place] [address] Results Social History Tobacco Use Types Packs/Day [...] EDT TH Visit (TeleHealth) Sleep Center at [facility] [address] [place] [address] Rae Valdivia MD [facility] DR [place] [address] documented as of this encounter Visit Diagnoses Not on filedocumented in this encounter
--- OUTSIDE RECORDS SUMMARY | 2024-03-18 15:50 | XMS_ITS | Encounter Summary ---
Author Organization [facility] Address [address] [place] [address] Care Team Providers Care Reporting Specialist Name Role Phone Steve Burns MD Primary Care Provider Brian rasmussen Encounter Details Date Type Department Care Team (Late st Contact Info) Description 04/17/2011 Results Only [facility] Laboratory Services - [facility] ([facility]) [address] [place], [place] [id number] Nena Avilez, [facility] [address] [place] [phone] Social History Tobacco Use Types Packs/Day [...] ? MIYA GUILLEN ? Accession #: ? [id number] : ? 1990 (Age: 21) ??F ?Collect Date: ? 04/17/2011 Location: ? [facility] ? Receive Date: ? 04/18/2011 Provider: ?NENA AVILEZ ELECTRON BEAM PHOTO MASK TECHNICIAN Copy to: ?STEVE BURNS MD ? Specimen/Source: ?Pap Test, Cervix/Endocervix, ThinPrep Imaging System with manual evaluation Last Menstrual Period: ? 04/04/11 ? SPECIMEN ADEQUACY ? Satisfactory for Evaluation - transformation zone component present GENERAL CATEGORIZATION ? Negative for Intraepithelial Lesion or Malignancy ? Document reviewed and electronically signed by: ? Andre Teresa, CT(ASCP) ? Report Date: ??04/22/2011 13:29 End of Report [facility] 04/17/2011 04/18/2011 us Nena Avilez ELECTRON BEAM PHOTO MASK TECHNICIAN PATHOLOGY ORDERABLES Final R esult [facility] [address] [place] [address] documented in this encounter Visit Diagnoses Not on filedocumented in this encounter Care Teams Reporting Specialist Relationship Specialty Start Date End Date Steve Burns MD PCP - General 05/24/09 12/23/18 documented as of this encounter
--- OUTSIDE RECORDS SUMMARY | 2024-03-18 15:50 | XMS_ITS | Encounter Summary ---
Author Organization [facility] Address [facility] [place] [address] Care Team Providers Care Supervisor Wall Mirror Department Name Role Phone Hieu Lombardi DNP Primary Care Provider [phone] Reason for Visit * Consultation (Routine) - Closed Specialty Diagnoses / Procedures Referred By Renzo t Referred To Contact Sleep Center Diagnoses Sleep apnea, unspecified type Hieu Lombardi DNP [address] [place] [address] [facility] [address] [place] [address] Referral ID Status Reason Start Date Expiration Date V isits Requested Visits Authorized [id number] Closed Consult, Test & Treat PCP Updated and/or Approved 11/21/2022 11/21/2023 1 1 Encounter Details Date Type Department Care Team (Late st Contact Info) Description 12/31/2022 11:00 AM EST Office Visit Sleep Center at [facility] [address] [place] [phone] Rae Valdivia MD [facility] [place] [address] JAMIE (obstructive sleep apnea) (Primary Dx) Social [...] control asthma, allergies. Diagnosed with JAMIE at [facility] in 2021, lab recently closed so she [...] home with 3 children and boyfriend Employment: [employer] at [place] Alcohol: none Smoking: none Caffeine: 2 sodas [...] She can get this study done in [place]. In lab testing is needed given her significant underlying lung disease. Total visit time 50 minutes including chart activities and records review, discussion with the patient and documentation on the day of the encounter Recommendations: 1. PSG, split for AHI > 30 + CMS AHI > 10 in [place] 2. Conservative management strategies reviewed including weight management and avoidance of the supine sleeping position (not discussed today). 3. Safe driving precautions extensively reviewed with the patient. Rae Valdivia MD documented in this encounter Plan of Treatment Upcoming Encounters Date Type Department Care Team (Late st Contact Info) Description 07/07/2024 4:00 PM EDT TH Visit (TeleHealth) Sleep Center at [facility] [address] [place] [address] Rae Valdivia MD [facility] [place] [address] documented as of this encounter Visit Diagnoses Diagnosis JAMIE (obstructive sleep apnea)- Primary Obstructive sleep apnea (adult) (pediatric) documented in this encounter Care Teams Supervisor Wall Mirror Department Relationship Specialty Start Date End Date Hieu Lombardi DNP [address] [place] [id number] PCP - General Family Medicine 11/21/22 documented as of this encounter
--- OUTSIDE RECORDS SUMMARY | 2024-03-18 15:50 | XMS_ITS | Encounter Summary ---
Author Organization [facility] Address [facility] [place] [address] Care Team Providers Care Deputy Director Name Role Phone Hieu Lombardi DNP Primary Care Provider [phone] Encounter Details Date Type Department Care Team [...] EDT TH Visit (TeleHealth) Sleep Center at [address] [address] Rae Valdivia MD [facility] DR SLEEP DIS[facility] [address] documented as of this encounter Visit Diagnoses Not on filedocumented in this encounter Care Teams Deputy Director Relationship Specialty Start Date End Date Hieu Lombardi DNP [address] [place] [id number] PCP - General Family Medicine 11/21/22 documented as of this encounter
--- OUTSIDE RECORDS SUMMARY | 2024-03-18 15:50 | XMS_ITS | Encounter Summary ---
Author Organization [facility] [place] [address] Care Team Providers Care Creative Manager Name Role Phone Hieu Lombardi DNP Primary Care Provider [phone] Encounter Details Date Type Department Care Team (Late st Contact Info) Description 07/14/2023 Ancillary Procedure Radiology Library at [facility] [place] [address] Hieu Lombardi DNP [address] [place] [address] [phone] Social History Tobacco Use Types Packs/Day Years [...] EDT TH Visit (TeleHealth) Sleep Center at [address] [address] Rae Valdivia MD [facility] [place] [address] documented as of this encounter Procedures Procedure Name Priority Date/Time Associated Diagnosis Comments FILM LIBRARY STORAGE ONLY CT CHEST ABDOMEN PELVIS Routine 07/14/2023 12:00 AM EDT documented in this encounter Results * Film Library- Storage Only CT Chest Abdomen Pelvis (07/14/2023 12:00 AM EDT) Narrative ADAMARIS HYDE - 11/20/2023 11:34 AM EDT This exam is auto-finalizing. It's purpose is for storage only. Hieu Lombardi DNP IMG FILM LIBRARY OR DERABLES Performing Organization Address City/State/[facility] Co de Phone Number [place], [place] documented in this encounter Visit Diagnoses Not on filedocumented in this encounter Care Teams Creative Manager Relationship Specialty Start Date End Date Hieu Lombardi DNP [address] [place] [address] PCP - General Family Medicine 11/21/22 documented as of this encounter
--- OUTSIDE RECORDS SUMMARY | 2024-03-18 15:50 | XMS_ITS | Encounter Summary ---
Author Organization [facility] Address [facility] [address] [address] Care Team Providers Care Telescope Maintenance Name Role Phone Hieu Lombardi DNP Primary Care Provider [phone] Reason for Visit * Consultation (Routine) - [...] asthma worse. Hieu Lombardi, XOCHILT [address] [place] [address] [facility] [address] [place] [phone] Referral ID Status Reason Start Date Expiration Date V isits Requested Visits Authorized [id number] Closed Consult, Test & Treat 12/23/2022 12/23/2023 1 1 Encounter Details Date Type Department Care Team (Late st Contact Info) Description 02/25/2023 10:00 AM EST Office Visit Cardiology at [address] [address] Tirso Luna PA [facility] [place] [address] Tachycardia Social History Tobacco Use [...] from the original note were not included. [facility] [place] [address] CARDIOVASCULAR MEDICINE OUTPATIENT VISIT Miya Merritt [id number] 02/25/2023 REFERRING PROVIDER: Hieu Lombardi PROBLEM LIST: [...] visit 05/20/[address] Cristina and land use planner Dr. Rowe. Zio patch was ordered. 06/13/2021 Zio patch results reviewed over the phone no malignant arrhythmias. Sinus tachycardia with average 107bpm, in setting of and POTS. Reportedly cannot tolerate BB's, has uncontrolled asthma, on Dupixent, Trelegy, montelukast. Was onBB very briefly, made asthma worse. Present daughter Lilia (17 mo) and mother zain. She also has 13 and 7 year old. 11/2022 ED [facility] visit for palpitations and treated for pna. At time, c/o heart beating hard with skipped and took breath away. PCP ordered 48 hour holter perfomred 01/2023 and was benign. She is following w/ neurology Dr. Sherwood in [place], [place] for tingling of hands, feet and [...] dander, Dog dander, Formoterol, House dust mite, [place], Peaches [stone fruit], and Tegaderm [transparent dressings] [...] conditions seen for office follow-up following recent [facility] ED visit for palpitations in setting of [...] or concerns. Tirso Luna [place] [address] Patient Instructions Start diltiazem 120mg daily for BP control. We also have some effect on HR. As needed follow-up. documented in this encounter Plan of Treatment Upcoming Encounters Date Type Department Care Team (Late st Contact Info) Description 07/07/2024 4:00 PM EDT TH Visit (TeleHealth) Sleep Center at [facility] [address] [place] [address] Rae Valdivia MD [facility] [address] [place] [address] documented as of this encounter Visit Diagnoses Diagnosis Tachycardia Tachycardia, unspecified documented in this encounter Care Teams Telescope Maintenance Relationship Specialty Start Date End Date Hieu Lombardi DNP [address] [place] [phone] PCP - General Family Medicine 11/21/22 documented as of this encounter
--- OUTSIDE RECORDS SUMMARY | 2024-03-18 15:50 | XMS_ITS | Encounter Summary ---
Author Organization [facility] Address [address] [place] [address] Care Team Providers Care Computer Systems Support Specialist Name Role Phone Unknown, Provider Primary Care Provider Eligio mina Encounter Details Date Type Department Care Team (Late st Contact Info) Description 01/19/2009 Orders Only [facility] Laboratory Services - [facility] [address] [place], [place] [phone] Cuate Hawkins CNM [address] [phone] Social History Tobacco Use Types Packs/Day Years Used Date Smoking Tobacco: Never Assessed Comments Unknown Sex and Gender Information Value Date Recorded [...] ? MIYA GUILLEN ? Accession #: ? [id number] ? : ? 1990 (Age: 18) ??F [...] of Report ? [facility] 01/19/2009 01/23/2009 us [facility] ORDERABLES Final Resul t [facility] [address] [place] [address] documented in this encounter Visit Diagnoses Not on filedocumented in this encounter Care Teams Computer Systems Support Specialist Relationship Specialty Start Date End Date Unknown, Provider, PCP - General 01/22/09 05/23/09 documented as of this encounter
--- OUTSIDE RECORDS SUMMARY | 2024-03-18 15:50 | XMS_ITS | Encounter Summary ---
Author Organization [facility] [place] [address] Care Team Providers Care Discharge Specialist Name Role Phone Nadja Doan APRN Primary Care Provider [phone] Encounter Details Date Type Department Care Team (Late st Contact Info) Description 06/13/2021 [place] [phone] Zoran Cristina MD Social History Tobacco Use Types Packs/Day Years [...] encounter Miscellaneous Notes * Telephone Encounter - oZran Cristina MD - 06/13/2021 3:13 PM EDT I spoke with Miya regarding her Ziopatch result, with no malignant arrhythmias. Sinus tachycardia with average 107bpm, in setting of and POTS. documented in this encounter Plan of Treatment Upcoming Encounters Date Type Department Care Team (Late st Contact Info) Description 07/07/2024 4:00 PM EDT TH Visit (TeleHealth) Sleep Center at [facility] [address] [place] [address] Rae Valdivia MD [facility] [place] [address] documented as of this encounter Visit Diagnoses Not on filedocumented in this encounter Care Teams Discharge Specialist Relationship Specialty Start Date End Date [place] [address] PCP - General Family Medicine 11/19/20 11/20/22 documented as of this encounter
--- OUTSIDE RECORDS SUMMARY | 2024-03-18 15:50 | XMS_ITS | Encounter Summary ---
Author Organization [facility] Address [address] [place] [address] Care Team Providers Care Education Officer Name Role Phone Butch Yanes MD Primary Care Provider Brian rasmussen Reason for Visit * Reason Comments Laboring labor 03/27 ye ast infection Encounter Details Date Type Department Care Team (Late st Contact Info) Description 05/24/2009 20:37 EDT - 06/08/2009 14:25 EDT Hospital Encounter [facility] Mother/Baby Unit [address], [place] [id number] Itzel Deleon MD [address] [facility], Level [address] [place] [address] Justin Winston MD Discharge Disposition: [...] for PTL. The patient was transferred from [facility] ([facility] after worsening back pain and RLQ waxing and waning pain. At OSH, patient was sam Q1-1.5 minutes, and changed SVE from 1cm/thick to 2-3cm/75. She had no vaginal bl eeding. Upon admission to [facility], SVE showed 4/75. Contraction pattern was concerning for abruption, although the patient had no vaginal bleeding and KB was negative. She received 2 doses of BMZ (05/24-4/). Contractions stopped and she remained 4/75 x 3, so she was transferred to [facility]. She was not tocolyzed. Of note, the patient had unexplained tachycardia for the past 2.5 months, and had an ECG on admission that was initially concerning for prolonged QT. Repeat ECG on 05/28 was reviewed with leach runner, Nathaly, who found no evidence of prolonged QT. Tachycardia resolved. TSH, T4 were normal. The patient was treated for two days with oral Metronidazole for BV on wet prep. The medication wasdiscontinued as she was asymptomatic. Discussion with CNM at [facility] revealed that patient cannot be transferred back until 35 weeks, and she remained inpatient at [facility] until that time. Her cervix was [...] 05/24/09 9:06 PM cc: MD Kadie MEHTA Discharge Summary Completed: 06/08/09 Cosigned by Essence Bravo at 09/04/2009 8:37 EDT documented in this encounter Discharge Instructions * Discharge Instructions* Cara Clark - 06/08/2009 13:29 EDT Discharge Instructions L&D [...] Physician - 06/13/2009 1442 EDT * Radha Emmanuel - 06/08/2009 1216 EDT 06/08/09(1200) Dr. Clark [...] 1. PTL--stable. D/c home today. Will call [facility] CNMs 2. FWB--AGA. S/p BMZ x2 (05/24-). 3. Labor precautions discussed for home Attending Physician Addendum - met with patient, reviewed care, discussed with resident team. Patient now at 35w, stable, ready for discharge. Patient will follow-up with CNM group at [facility] in the next week. Agree with plans. Haroldo Bravo MD ([facility]) * Shayna Samuels - 06/08/2009 0707 [...] PTL: stable, asymptomatic, 4/70x3 exams on 05/25, 4/80 on 06/07. Negative KB on 05/25. Patient to be discharged to [facility] today. 2. FWB: AGA, s/p BMZ [...] 15. 1. PTL--stable. Plan to d/c to [facility] at 35 weeks. Will check cervix [...] abruption, now stable. 1. PTL: stable, asymptomatic, /70x3 exams on 05/25, unchanged on 05/26. Negative [...] 14. 1. PTL--stable. Plan to d/c to [facility] at 35 weeks if no further PTL. Will recheck cervix tomorrow. 2. FWB--AGA. S/p BMZ x2 (05/24-). NST daily Addendum by Attending Physician - [...] lb 6.4 oz) SpO2 98% LMP OB (ZTIA:07/13/09) Gen: NAD CV: RRR Resp: CTAB Abd: Soft, no uterine tenderness Ext: NT A/P: 19 y/o @ 34+4 with PTL, stable. HD 13. 1. PTL--stable. Plan to d/c to [facility] at 35 weeks if no further PTL. Will recheck cervix prior to d/c. 2. FWB--AGA. S/p BMZ x2 (05/24-). NST daily Addendum by Martha Attending: I met with patient and discussed care. Also discussed with resident team, agree with assessment andplan. Will likely re-check cervix on 06/07, if stable, likely discharge at 35w 0d. D. MD Shelly * Shayna Samuels E - 06/05/2009 0629 EDT Medical Student Progress [...] with SCDs. After discussion with CNM at [facility], patient will stay at [facility] until 35 weeks 2. FWB: AGA, [...] with SCDs. After discussion with CNM at [facility], patient will stay at [facility] until 35 weeks 2. FWB: AGA, [...] entire procedure. GLORIA Cheatham Attending Physician * Cara Clark - 06/04/2009 0656 EDT S: No c/o [...] 12. 1. PTL--stable. Plan to d/c to [facility] at 35 weeks if no further PTL. Venos. 2. FWB--AGA. S/p BMZ x2 (05/24-). NST daily * Letha Connors MD - [...] 11. 1. PTL--stable. Plan to d/c to [facility] at 35 weeks if no further [...] PS. * Comfort Solis MD - 06/02/2009 0719 EDT S: No c/o ctxs, LOF, VB. [...] 10. 1. PTL--stable. Plan to d/c to [facility] at 35 weeks if no further [...] 9. 1. PTL--stable. Plan to d/c to [facility] at 35 weeks if no further PTL. Venos. 2. FWB--AGA. S/p BMZ x2 (05/24-). NST daily MFM Attending : I saw [...] with SCDs. After discussion with CNM at [facility], patient will stay at [facility] until 35 weeks 2. FWB: AGA, [...] for 1 week. Plan to d/c to [facility] at 35 weeks if no further [...] with SCDs. After discussion with CNM at [facility], patient will stay at [facility] until 35 weeks 2. FWB: AGA, s/p BMZ (second dose at 17:30 on 05/25/09), reactive NST on 05/30 3. Tachycardia: improved/resolved; TSH, T4 nl on 05/25 Shayna Samuels MS4 X 1370 * Ijeoma Sanabria MD - 05/30/2009 0733 EDT S: No c/o ctxs, LOF, VB. [...] cervical change. Last exam --will re-discuss with [facility] today whether she can be discharged [...] 35 weeks with d/c to home in [facility] at that time Ijeoma Sanabria MD [...] of prolonged QT when ECG wasreviewed with leach runner yesterday. O:BP 90/55 Pulse 96 Temp(Src) 36.5 [...] bedrest with SCDs. Potential transfer back to [facility] at 34 weeks, will confirm absence [...] Sales - 05/29/2009 1402 EDT Spoke w/ leach runner, Tal, who reviewed EKG and found no [...] inpatient bedrest, dispo depends on peds at [facility]. Will f/u today or tomorrow, whether [...] if f/u indicatged. Ijeoma Sanabria MD * Shayna Samuels - 05/29/2009622 EDT Medical Student Progress Note S: Patient [...] bedrest with SCDs. Potential transfer back to [facility] at 34 weeks, in communication with Peds. 2. FWB: AGA, s/p BMZ (second dose at 17:30 on 05/25/09), reactive NST on 05/28 3. Tachycardia: improved/resolved; TSH, T4 nl on 05/25 4. Prolonged QT: asymptomatic; had repeat ECG on 05/28, will discuss with Cardiology today 5. BV: asymptomatic, d/c'd Metronidazole on 05/28 Shayna Samuels MS4 X 1370 * Frances Tafoya - 05/28/2009 8343 EDT Ante- Shift Note Reason for Admission: [...] Needs to be reminded to use them. Cosigned by Debra Marcum RN at 05/28/2009 21:58 EDT * Shayna Samuels - 05/28/2009 0632 EDT [...] Abruption, now stable. 1. PTL: stable, asymptomatic, 4/70x3 exams on 06/02. Negative KB on 05/25. Patient to stay inpatient until 35 weeks, on bedrest with SCDs. 2. FWB: AGA, s/p BMZ (second dose at 17:30 on 05/25/09) 3. Tachycardia: improved. TSH, T4 nl on 05/25 4. Prolonged QT: asymptomatic, no further workup or treatment unless symptomatic or bradycardic 5. GBS unknown: still pending at OSH ([facility]); prelim was neg (no growth yesterday), will fax final results to L&D Shayna Samuels MS4 X 1370 * Ijeoma [...] 35 weeks 2. FWB--AGA. S/p BMZ x2 (05/24-) 3. Tachycardia--improved/resolved. Asymptomatic. TSH, T4 nl 4. [...] to establish dx. Spoke with CNM in [facility]- may be able to d/c 34 weeks, she is checking with her peds to see if can d/c sooner Ijeoma Sanabria MD * Ijeoma Sanabria MD - 05/27/2009 0627 EDT CC: PTL S: feeling well. Denies [...] venos * Itzel Deleon MD - 05/26/2009 0736 EDT R2 OB Antepartum PN CC: PTL [...] PTL, ? Abruption. 1. PTL--Now stable. Asymptomatic. 70x3 exams. No tocolysis due to concern for [...] delivery. Itzel Deleon MD * Shayna Samuels - 05/26/2009 0630 EDT Medical Student Progress Note S: Patient feels well. No contractions since coming to [facility]. No back pain. No LOF, no VB. [...] 5. GBS unknown: still pending at OSH ([facility]) Shayna Samuels MS4 X 1370 * Frances Estrella RN - 05/25/2009 1726 EDT Pt going to transfer to [facility] undelivered. IV is saline locked. Pt is tolerating a regular diet. Second dose of BMZ given at 17:30. FHR has been reassuring. See transfer orders written by Dr Clark. * Comfort Philippe RN - 05/25/2009 1432 EDT G1 at 33 weeks with PTL will receive he 2nd steroid shot today at 1735 then [facility]. * Comfort Philippe [...] Abruption. Cat I. 1. PTL--Now stable. Asymptomatic. 70x3 exams. No tocolysis due to concern for abruption. Stable to be transferred to [facility] after BMZ and to let us [...] 05/25/2009 0723 EDT 0715 care assumed by [facility] * Constance Landa RN - 05/25/2009 [...] menstrual period OB (ZITA:07/13/09). Gen: Looks comfortable Nora: No contrax visualized FHT: Baseline 140, mod variability, + accels, no decels SVE: /-2 unchanged Pain with vaginal exam A: 19 [...] Dalton. Stable 33 week IUP transferred from [facility] secondary to PTL. Presently at 4 cm. [...] in next 2-3 days is likely. * Snehal Rouse RN - 05/25/2009 0543 EDT Pt awakened by O2 sat monitor. VS obtained, pt denies needs. * Snehal Rouse RN - 05/25/2009 0514 EDT VS deferred, pt asleep in SF [...] ctx. Call salazar within reach,SCD's intact. * Malhia Izaguirre RN - 05/25/2009 0349 EDT 0340 [...] 135, moderate variability, + accels, no decels Nora: Every 2-3 minutes SVE: deferred A/P: 19 [...] 05/25/2009 0124 EDT C/O of dull headache. 03/04 rating. Palomo DIEHL off floor, Sanjiv DIEHL reviewed pt chart and allowedfor acetaminophen 650mg as ordered post * Grace Moss - 05/25/2009 0059 EDT Palomo DIEHL allowed for clear liquid diet. Pt tolerating PO fluids. 0053 OOB to BR. Palomo DIEHL allowed for bedrest with BR privileges. * [...] before start of shift. * Martina Culver - 05/25/2009 0002 EDT Cc: Abruption, PTL S: Feeling contractions more. No Fam Hx prolonged QT, no Hx CP/palpitations/SOB/syncope/seizures. No Fam Hx sudden . O: Blood pressure 104/60, pulse 121, temperature 37 ??C (98.6 ??F), temperature source Tympanic, resp. rate 18, height 1.651 m (5' 5), weight 68.04 kg (150 lb), last menstrual period OB (ZITA:07/13/09). Nora: q 1-2 min FHT: baseline 140, mod variability, + accels, no decels SVE: 4/75% Unchanged EKG: SC 0.12, QRS 0.08, QTc 469 (calculated manually 0.48), normal axis, HR 125bpm, no ST segment changes EKG reviewed with Dr. Thurston, anesthesiology A: 19 y.o. @ 33w0d with PTL, abruption. Cat 1 FHT. P: #abruption KB Pending #PTL T+S [address] As likely abruption, would not tocolyze at this point Next [facility] 05/25 @ 1730 S/p peds consult. Anesthesia [...] Dr. Deleon * Grace Moss - 05/24/2009 8374 EDT Report given by Elvira Parra RN. Pt at US at time of report. * Kori Parra RN - 05/24/2009 2730 EDT Pt off monitor for ultrasound * Jeff Slaughter MD - 05/24/2009 0750 EDT Peds Consult Note - PGY-3 Peds [...] SLAUGHTER MD * Kori Parra RN - 05/24/2009 2221 EDT Peds at bedside for consult * Kori Parra RN - 05/24/2009 2221 EDT Strip reviewed with Dr. Culver. lr bolus infusing * Kori Parra RN - 05/24/2009 2155 EDT anes at bedside for consult * Kori Parra RN - 05/24/[address] Culver at bedside doing Ultrasound * Kori Parra RN - 05/24/2009 2047 EDT Pt admitted to [facility] from [facility]. 20 gauge IV infusing LR. Pt denies feeling lof, + fm, spot times 1 of vaginal bleeding after spec exam Pt denies feeling feeling contractions at this time documented in this encounter H&P Notes * Itzel Deleon MD - 05/24/2009 9874 EDT Rh+ / RI / GBS neg Chief Complaint IUP @ 32w6d Transfer from [facility] ([facility]) for PTL Back pain Subjective 19 [...] 1700, BMZ @ 1730. Ampicillin given .1715 [facility] ([facility]) This complicated by low lying placenta. US 04/24/09 documented anterior right placenta Received seasonal flu, declined H1N1 Current OBHx: Screening: CF neg, Quads wnL ZITA: Estimated Date of Delivery: 07/13/09 based on LMP 10/05/08 US 01/22 at 16 weeks --> ED 07/08 Ultrasound: Date Gest Age EFW [facility] REAL presentation placenta 01/22 16 89 Low [...] c/w dates Ext: +DPPs, NT, no edema Nora: q 1-2 min FHT: Baseline 150, mod [...] 68.04 kg (150 lb) LMP OB (ZITA:07/13/09) abd-soft, gravid, NT toco-ctx q1-2 min fhts-130s +mod variability no decels sve per Dr. Woodson /-1 US-cephalic, REAL 17, EFW 1970g (45%), anterior [...] ZITA: 07/13/2009 Gestational Age (weeks): 35W0D Cervix: 4/90/-1 on 05/26/09 Vital signs: Stable [...] ZITA: 07/13/2009 Gestational Age (weeks): 34W6D Cervix: 490/-1 on 05/26/09 Vital signs: Stable Patient Vital [...] of Care - Katherin Gaxiola RN - 06/06/2009 6717 EDT Ante- Shift Note Reason for Admission: [...] homeFriday. * Plan of Care - Cordelia Landaverde RN - 06/06/2009 1512 EDT Ante- Shift Note Reason for Admission: PTL ZITA: 07/13/2009 Gestational Age (weeks): 34W5D Cervix: 490/-1 on 05/26/09 Vital signs: Stable Patient Vital [...] Care - Gavi Holland RN - 06/05/2009 8815 EDT Ante- Shift Note Reason for Admission: PTL ZITA: 07/13/2009 Gestational Age (weeks): 34W4D Cervix: 90/-1 on 05/26/09 Vital signs: Stable [...] of Care - Aparna Lange - 06/05/2009 6704 EDT Problem: MAINTENANCE/ SUPPORT Goal: Maintain Intervention: [...] Plan of Care - Jeanie Orellana - 06/04/20092136 EDT Ante- Shift Note Reason for Admission: [...] cafeteria rather than take a wheel chair. Cosigned by Debra Marcum RN at 06/04/2009 21:49 EDT * Plan of Care - Aparna Lange [...] and supportive. Slept late. Had lunch in [facility] with Seg[place]. No Bleeding,leaking, Contractions. * Plan of Care - Maykel Dior RN - 06/04/2009 0466 EDT Ante- Shift Note Reason for Admission: [...] Care - Snehal Talavera RN - 06/02/2009 2236 EDT Ante- Shift Note Reason for Admission: [...] Care - Zoya An RN - 06/01/2009 0594 EDT Ante- Shift Note Reason for Admission: [...] IV / SL: none Special Social Circumstances: [place] pt's boyfriend at [...] (97.7 ??F) 97 % - - - 05/30/091599 92/58 mmHg 109 18 36.5 ??C (97.7 [...] of Care - Aparna Lange - 05/30/2009 1056 EDT Problem: RELATIONSHIP/COPING Goal: Patient & Family Adapt To Hospitalization Intervention: Assess support systems Data: Talked at length with [place], and mom re: living conditions, hopes for future. Dad is [place], and his family is ready to take mother and baby in to live with them. Finances are tight. Dadhas responsibilities to fulfill (not active duty) for approx 3 years in [facility] at low pay, which concerns him. Both he and the mom of baby are vegetarian. In order to get mother and baby to [facility], marriage needs to take place. Dad has [place] passport. Mom has [place] passport. Dad is Julius ([employer]) rastafarian, while mother is not, and is Mandaeism. Dad feels misunderstood on his rastafarian, especially relating to his dreadlocks and his headcovering needs that are rastafarian. Action: Offered emotional support to young couple. Listened to description of his home, and his rastafarian beliefs. Mother should be meeting with high school social studies tutor. Response:Patient and fob felt heard and understood [...] and assumed care of pt 1540-Told by SITE PROMOTION AGENT pt called and stated she was having [...] of Care - Georgie Martinez - 05/29/2009 2631 EDT Ante- Shift Note Reason for Admission: [...] pt * Plan of Care - Cordelia Landaverde, SIMONA - 05/28/2009 1245 EDT Ante- Shift Note [...] / SL: d/c'd yesterday Special Social Circumstances: Seg[place], pt's boyfriend at [...] Flow Rate (L/min) O2 Device FIO2 % 05/27/091999 103/64 mmHg 97 18 36.7 ??C (98.1 [...] Plan of Care - Mariella Arriaga - 05/26/2009 2006 EDT Ante- Shift Note Reason for Admission: [...] as she does not live close to [facility] with NICU access. * Plan of [...] access. * Plan of Care - Cordelia Landaverde RN - 05/26/2009 0847 EDT 0830: Dr Morales [...] of Care - Adry Kaye RN - 05/25/20092152 EDT Ante- Shift Note Reason for Admission: ZITA: 07/13/2009 Gestational Age (weeks): 33W0D Cervix: Vital signs: Stable Patient Vital Signs in the past 8 hrs: BP Pulse Resp Temp SpO2 O2 Flow Rate (L/min) O2 Device FIO2 % 05/25/092014 106/62 mmHg 111 20 36.8 ??C (98.2 ??F) - - - - 05/25/09 2006 106/64 mmHg 122 18 36.4 ??C (97.5 [...] Care - Comfort Philippe RN - 05/25/2009 0753 EDT Problem: PAIN Goal: Patient's Pain/Discomfort Is [...] * Scanned Note-Null - Inpatient, Physician - 05/25/2009617 EDT * Scanned Note-Null - Inpatient, Physician [...] 06/05/2009 18:42 EDT Physician Inpatient MD PROCEDURE/MINOR SURGICAL ORDERABLES Final Result * ECG REPORT - SCANNED (06/04/2009 0:43 EDT) 06/04/2009 0:43 EDT Narrative Procedure Note Inpatient, Physician - 06/04/2009 0:43 EDT Physician Inpatient MD PROCEDURE/MINOR SURGICAL ORDERABLES Final Result * INPATIENT ADD-ON (05/25/2009 1:30 EDT) Tests to be added urine for GC/chlamydia [facility] Number for problems Not Given [facility] Accession number NEED STERILE SPEC [facility] 05/25/2009 1:30 EDT 05/25/2009 1:46 EDT us Martina Culver MD HEMATOLOGY & PF4 ORD ERABLES Final Result [facility] [address] [place] [address] * INPATIENT ADD-ON (05/25/2009 0:05 EDT) Tests to be added TSH TSH,Free T4 [facility] Accession number [id number] [facility] 05/25/2009 0:05 EDT 05/25/2009 0:48 EDT Martina Culver MD HEMATOLOGY & PF4 ORD ERABLES Final Result [facility] [address] [place] [address] * INPATIENT ADD-ON (05/24/2009 22:15 EDT) Tests to be added varicella IgG [facility] Number for problems [id number] [facility] Accession number [id number] [facility] 05/24/2009 22:1 5 EDT 05/24/2009 22:26 EDT us Martina Culver MD HEMATOLOGY & PF4 ORD ERABLES Final Result [facility] [address] [place] [address] * TSH (05/24/2009 21:06 EDT) TSH 1.47 0.35 - 5.00 uIU/ml [facility] 05/24/2009 21:0 6 EDT 05/24/2009 21:19 EDT us Martina Culver MD CHEMISTRY & BLOOD GA S ORDERABLES Final Result [facility] [address] [place] [address] * T4 FREE (05/24/2009 21:06 EDT) Free T4 1.1 0.8 - 1.8 ng/dL [facility] 05/24/2009 21:0 6 EDT 05/24/2009 21:19 EDT us Martina Culver MD CHEMISTRY & BLOOD GA S ORDERABLES Final Result [facility] [address] [place] [address] * VARICELLA IGG ANTIBODY (05/24/2009 21:06 EDT) Varicella IgG Ab Positive [facility] 05/24/2009 21:0 6 EDT 05/24/2009 21:19 EDT us Martina Culver MD IMMUNOLOGY AND CORNELIUS ALDANA ORDERABLES Final Result Performing Organization Address City/[facility]/ZIP Co de Phone Number [facility] [address] [place] [address] * (ABNORMAL) URINE MICROSCOPIC (05/24/2009 21:06 EDT) WBC, UA less than 1 0 - 5 /HPF [facility] RBC, UA 1 to 5 0 - 5 /HPF [facility] Squam Epithel, UA Few(A) NS /HPF [facility] Renal Epithel, UA None seen NS /HPF [facility] Bacteria, UA None seen NS /HPF [facility] Crystals, UA None seen /HPF [facility] Hyaline Casts, UA None seen /LPF [facility] UA Comment Microscopic results are unreliable on urines unrefrig >2hrs or refrig >8hrs. [facility] 05/24/2009 21:0 6 EDT 05/24/2009 21:18 EDT us Martina Culver MD URINALYSIS ORDERABLE S Final Result Performing Organization Address [facility] Co de Phone Number [facility] [address] [place] [address] * KLEIHAUER BLOOD (05/24/2009 21:06 EDT) Kleihauer blood No cells seen Rev'd by Pathologist ml F/M HEMORRHAGE [facility] 05/24/2009 21:0 6 EDT 05/24/2009 21:19 EDT us Martina Culver MD HEMATOLOGY & PF4 ORD ERABLES Final Result Performing Organization Address [facility] Co de Phone Number [facility] [address] [place] [address] * TYPE AND SCREEN (05/24/2009 21:06 EDT) ABO B [facility] Rh Factor Positive [facility] Antibody Screen Negative [facility] Comment:SAMPLE EXPIRES ON AT 23:59 Blood specimen (specimen) 05/24/2009 21:06 EDT 05/24/2009 21:06 EDT Martina Culver MD BLOOD BANK TESTS Fin al Result Performing Organization Address [facility] Co de Phone Number [facility] [address] [place] [address] * DRUG SCREEN 6 (05/24/2009 21:06 EDT) [...] Cutoff = 300 ng/ml [facility] Benzodiazepine Screen, Urine Negative screen. Confirmation testing available upon request. Suitable for medical purposes only. Will not detect all drugs within class. Cutoff = 300 ng/ml [facility] Cannabinoid Scrn, Ur Negative screen. Confirmation testing available upon request. Suitable for medical purposes only. Will not detect all drugs within class. Cutoff = 50 ng/ml [facility] Cocaine Metabolites, Ur Negative screen. Confirmation [...] not detect oxycodone, oxycontin or methadone. [facility] Urine specimen (specimen) 05/24/2009 21:06 EDT 05/24/2009 21:18 EDT Martina Culver MD URINALYSIS ORDERABLE S Final Result Performing Organization Address City/[facility]/ZIP Co de Phone Number [facility] [address] [place] [address] * PTT (05/24/2009 21:06 EDT) PTT 24 20 - 35 secs [facility] Comment:Therapeutic Heparin range: 60-100 seconds Blood specimen (specimen) 05/24/2009 21:06 EDT 05/24/2009 21:19 EDT Martina Culver MD HEMATOLOGY & PF4 ORD ERABLES Final Result Performing Organization Address [facility] de Phone Number [facility] [address] [place] [address] * PROTIME (05/24/2009 21:06 EDT) Pro Time 13.4 12.2 - 15.5 secs [facility] I.N.R. 1.0 0.9 - 1.1 Ratio [facility] Comment: Moderate Intensity Coumadin INR = 2.0-3.0 Adjustments in anticoagulant therapy dose should be based upon the INR and NOT the Pro Time. Blood specimen (specimen) 05/24/2009 21:06 EDT 05/24/2009 21:19 EDT Martina Culver MD HEMATOLOGY & PF4 ORD ERABLES Final Result Performing Organization Address [facility] de Phone Number [facility] [address] [place] [address] * (ABNORMAL) FIBRINOGEN (05/24/2009 21:06 EDT) Pathologist [facility] Fibrinogen 417(H) 220 - 410 mg/dl [facility] Blood specimen (specimen) 05/24/2009 21:06 EDT 05/24/2009 21:19 EDT Martina Culver MD HEMATOLOGY & PF4 ORD ERABLES Final Result Performing Organization Address [facility] de Phone Number [facility] [address] [place] [address] * KLEIHAUER BLOOD (05/24/2009 21:06 EDT) Kleihauer blood Duplicate Test Request ml F/M HEMORRHAGE [facility] Body fluid specimen (specimen) 05/24/2009 21:06 EDT 05/24/2009 21:22 EDT Martina Culver MD HEMATOLOGY & PF4 ORD ERABLES Final Result Performing Organization Address [facility]/ZIP Co de Phone Number [facility] [address] [place] [address] * (ABNORMAL) CREATININE (05/24/2009 21:06 EDT) [facility] Creatinine 0.60(L) 0.7 - 1.5 mg/dl [facility] GFR, Calculated >60 ml/min/1.7 3m2 [facility] Blood specimen (specimen) 05/24/2009 21:06 EDT 05/24/2009 21:19 EDT Martina Culver MD CHEMISTRY & BLOOD GA S ORDERABLES Final Result Performing Organization Address [facility] Co de Phone Number [facility] [address] [place] [address] * (ABNORMAL) HEMAGRAM (05/24/2009 21:06 EDT) [facility] WBC 14.81(H) 4.0 - 12.4 K/cmm [facility] RBC 3.89 3.86 - 5.04 M/cmm [facility] Hemoglobin 11.0(L) 11.6 - 15.2 gm/dl [facility] HCT 31.9(L) 34.9 - 44.4 % [facility] MCV 82 81 - 98 fl [facility] MCH 28.2 26.7 - 33.3 pg [facility] MCHC 34.3 32.1 - 35.9 gm/dl [facility] PLT 181 141 - 320 K/cmm [facility] RDW-CV 13.1 11.7 - 14.6 % [facility] Blood specimen (specimen) 05/24/2009 21:06 EDT 05/24/2009 21:19 EDT Martina Culver MD HEMATOLOGY & PF4 ORD ERABLES Final Result Performing Organization Address City/[facility]/ZIP Co de Phone Number [facility] [address] [place] [address] * (ABNORMAL) URINALYSIS (05/24/2009 21:06 EDT) Color, UA Yellow [facility] Clarity, UA Clear [facility] Glucose, UA Neg NEG [facility] Bilirubin, UA Neg NEG [facility] Ketones, UA 1+(A) NEG [facility] Specific [place], Urine <1.005 1.001 - 1.035 [facility] Blood, UA 3+(A) NEG [facility] pH, UA 7.0 4.6 - 8.0 [facility] Protein, UA Neg NEG [facility] Urobilinogen, UA 0.2 0.2 - 1.0 E.U./dl [facility] Nitrite, UA Neg NEG [facility] Leuk Esterase 1+(A) NEG [facility] Urine specimen (specimen) 05/24/2009 21:06 EDT 05/24/2009 21:18 EDT Martina Culver MD URINALYSIS ORDERABLE S Final Result Performing Organization Address [facility] Co de Phone Number [facility] [address] [place] [address] * RUBELLA IGG ANTIBODY (01/19/2009) Rubella IgG Ab immune POINT OF CARE Blood specimen (specimen) Historical [facility] CHEMISTRY & BLOOD GAS ORD ERABLES Final Result POINT OF CARE * RAPID HIV-1 (01/19/2009) Rapid HIV negative POINT OF CARE Blood specimen (specimen) Result [facility] Historical Provider CHEMISTRY & BLOOD GAS ORD ERABLES Final Result Performing Organization Address [facility] Co de Phone Number POINT OF CARE * HEPATITIS B SURFACE ANTIGEN (01/19/2009) Hepatitis B Surface Ag negative POINT OF CARE Blood specimen (specimen) Result [facility] Provider CHEMISTRY & BLOOD GAS ORD ERABLES Final Result Performing Organization Address [facility] Co de Phone Number POINT OF CARE * HEMAGRAM (01/19/2009) Hemoglobin 12.7 12.0 - 16.0 g/dL POINT OF CARE HCT 36.1 POINT OF CARE Blood specimen (specimen) Result [facility] Provider HEMATOLOGY & PF4 ORDERABL ES Final Result Performing Organization Address [facility] de Phone Number POINT OF CARE * ANTIBODY SCREEN (01/19/2009) Antibody Screen negative POINT OF CARE Blood specimen (specimen) Result [facility] Provider BLOOD BANK TESTS Final Re sult Performing Organization Address [facility] de Phone Number POINT OF CARE documented in this encounter [...] 1 Tablet, oral, DAILY, First dose on Thu05/26/09 at 0900, Until Discontinued, Routine Given 05/26/2009 [...] on Thu05/25/09 at 0230, Last dose on Thu05/26/09 at 2230, Routine Given 05/25/2009 10:30 EDT [...] may reflect changes made after this encounter. VITS W-CA,FE,FA,<1MG, ( #2 ORAL) Take 1 [...] 05/28/2009 documented in this encounter Care Teams Education Officer Relationship Specialty Start Date End Date Butch Yanes MD PCP - General 05/24/09 12/23/18 documented as of this encounter
--- OUTSIDE RECORDS SUMMARY | 2024-03-18 15:50 | XMS_ITS | Encounter Summary ---
[place] [address] Care Team Providers Care Cook Chief Name Role Phone Nadja Doan APRN Primary Care Provider [phone] Reason for Visit * Auth/Cert Specialty Diagnoses / Procedures Referred By Renzo t Referred To Contact Diagnoses labor Procedures PRO INPT INITIAL COMP/COMP/HIGH 70 MIN ER IPI Marylou Delacruz MD [facility] [address] [facility] Referral ID Status Reason Start Date Expiration Date Visits Re quested Visits Authorized [id number] 1 1 Encounter Details Date Type Department Care Team (Latest Contact Info) Description 08/26/2021 11:59 PM EDT - 08/28/2021 9:49 AM EDT [place] [id number] Marylou Delacruz MD [facility] [address] Discharge Disposition: Home Social History Tobacco Use [...] Kiana Merritt Patient Age: 31 y.o. Language: Bulgarian Race: White Ethnicity: Not nor Admit date: 08/26/2021 Discharge date and time: 08/28/21 Attending Physician: Marylou Delacruz MD Discharge Physician: Dr. Yan Follow-up Recommendations for Providers: -- Pap recommended -- Routine follow-up with care providers tomorrow -- Follow-up with home head paper tester today Inpatient Provider Contact Information[place] [facility] Department, Care Provider: [facility] Referring Provider if applicable: Snoya Franco, DO Discharge Diagnoses (Hospital Problems) and [...] reports good movement. 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 Pt not taking progesterone asnot covered by insurance. -- Asthma: Moderately controlled with daily medication. Currently on Trelegy (pt takes 200 mcg dose, not 100 dose documented below in meds), Montelukast, ProAir PRN, and Nebulizer PRN. Was hospitalized this for an asthma exacerbation from 07/03-07/04 at [facility] due to no Trelagy for one [...] need pap -- Tachycardia/POTS - Seen by [facility] [place] who completed Ziopatch evaluation which demonstrated [...] for tocolysis. [place] [id number]. Overnight on HD#1, contractions spaced and patient [...] 08/28/21, rescue course GBS status: pending from [facility] Cervix at discharge: Dilation: Dilation: 1 [...] History Administered Date(s) Administered ??? Dulcea Covid-19 (Heat And Vent Aircraft Mechanic 100mcg) Vaccine 04/03/2020, 05/01/2020 Discharge Medications: Your Medications Continued medications, unchanged Dose Details albuteroL 2.5 mg /3 mL (0.083 %) Nebu Commonly known as: Proventil INHALE THE CONTENTS OF 1 VIAL VIA NEBULIZER EVERY 4 TO 6 HOURS DIRECTED NEEDED Refills: 0 montelukast 10 mg Tab Commonly known as: Singulair Take 10 mg by mouth nightly. 10 mg Refills: 0 vitamin with ueckazpv-Me-Fqvr-FA Tab Take by mouth. Refills: 0 Trelegy Ellipta 100-62.5-25 mcg INHALE ONE PUFF BY MOUTH EVERY DAY Generic drug: qpempppmsok-yadtedaxwiaw-pwnumwdrre Refills: 0 STOPPED Medications Endometrin 100 mg Inst Generic drug: progesterone Smoking Status at Discharge: Social History Tobacco Use Smoking Status Never Smoker Smokeless Tobacco Never Used Ordered for After Discharge: No discharge procedures on file. Summary: Dating Summary: by LMP, ZITA 10/09/21 Instructions Given to Patient at Discharge: There are no outpatient Patient Instructions on file for this admission. General Instructions [place] [id number] [facility] Kiana Fam René 08/28/21 9:29 AM Following your visit to [facility] Triage Call your doctor or senior game developer for: ??? Seizure (call 911) ??? Chest pain ??? Shortness of breath ??? Headache which isn't relieved with Tylenol ??? Headache with visual changes ??? Abdominal pain ??? Swelling to hands and face ??? A temperature at or above 100.4F ??? Nausea or vomiting Gestation - under 37 weeks ??? Call your doctor or senior game developer if: o You experience any menstrual like [...] a vaginal exam in your doctor's or senior game developer's office - you should not bleed as [...] 37 weeks ??? Call your doctor or senior game developer if: o You are having painful contractions/abdominal [...] a vaginal exam in your doctor's or senior game developer's office - you should not bleed as [...] dehydration. Keep your regularly scheduled doctor or senior game developer appointment. Vaccination If you received the Measles, Mumps, and Rubella (MMR) vaccine, varicella vaccine, or Hepatitis A vaccine during your hospitalization make sure to discuss this with your OB provider or your PCP at your next visit. You may need a second dose of the vaccine to receive effective vaccine protection. Your [facility] Provider can be reached during office hours at ??? Midwives ??? Obstetricians AFTER OFFICE HOURS: Call and ask for the wireless sales manager or senior game developer continuous process machine operator Discharge References/Attachments None Referrals:NA documented in this encounter Discharge Instructions * Discharge Instructions* Shakila Mario RN - 08/28/2021 9:29 [place] [address] [facility] Feliel paso Kiana Merritt 08/28/21 9:29 AM Following your visit to [facility] Triage Call your doctor or senior game developer for: Seizure (call 911) Chest pain Shortness of breath Headache which isn't relieved with Tylenol Headache with visual changes Abdominal pain Swelling to hands and face A temperature at or above 100.4F Nausea or vomiting Gestation - under 37 weeks Call your doctor or senior game developer if: You experience any menstrual like cramping [...] a vaginal exam in your doctor's or senior game developer's office you should not bleed as much [...] over 37 weeks Call your doctor or senior game developer if: You are having painful contractions/abdominal cramps [...] a vaginal exam in your doctor's or senior game developer's office you should not bleed as much [...] dehydration. Keep your regularly scheduled doctor or senior game developer appointment. Vaccination If you received the Measles, Mumps, and Rubella (MMR) vaccine, varicella vaccine, or Hepatitis A vaccine during your hospitalization make sure to discuss this with your OB provider or your PCP at your next visit. You may need a second dose of the vaccine to receive effective vaccine protection. Your [facility] Provider can be reached during office hours at Midwives Obstetricians AFTER OFFICE HOURS: Call and ask for the wireless sales manager or senior game developer continuous process machine operator documented in this encounter Medications at Time [...] 10 mg by mouth nightly. vitamin with ugvrrwqa-En-Trzf-FA Tablet Take by mouth. 12/31/2022 documented as [...] 05/20/21 GA at US: 19w5d EFW: 332g, [id number] Growth appropriate for gestational age Amniotic fluid volumenormal Placenta anterior Presentation cephalic ABO/RH B pos, antibody neg Hgb/Hct 9.4/30.0 Platelets 208 Varicella Immune Rubella Immune Syphillis Negative GC/Chlam Pending, collected at admission Urine Culture HepBsAg Neg HepC Neg HIV Neg 1 hr GTT Not found 3 hr GTT GBS Pending at [facility] UDS: Assessment & Plan: Kiana Merritt [...] GBS status: GBS pending (collected 08/26/21 at [facility]; results pending) ?? T&S up to [...] 05/20/21 GA at US: 19w5d EFW: 332g, 4kn18gm Growth appropriate for gestational age Amniotic fluid volumenormal Placenta anterior Presentation cephalic ABO/RH B pos, antibody neg Hgb/Hct 9.4/30.0 Platelets 208 Varicella Immune Rubella Immune Syphillis Negative GC/Chlam Pending, collected at admission Urine Culture HepBsAg Neg HepC Neg HIV Neg 1 hr GTT Not found 3 hr GTT GBS Pending at [facility] UDS: Assessment & Plan: Kiana Merritt [...] GBS status: GBS pending (collected 08/26/21 at [facility]; results pending) ?? T&S up to [...] Provider (if early referral or co-managed by [facility]): [facility] Chief Complaint: Kiana Merritt was admitted [...] reports good movement. 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 Pt not taking progesterone asnot covered by insurance. -- Asthma: Moderately controlled with daily medication. Currently on Trelegy (pt takes 200 mcg dose, not 100 dose documented below in meds), Montelukast, ProAir PRN, and Nebulizer PRN. Was hospitalized this for an asthma exacerbation from 07/03-07/04 at [facility] due to no Trelagy for one [...] need pap -- Tachycardia/POTS - Seen by [facility] [place] who completed Ziopatch evaluation which demonstrated [...] Dispense Refill Last Dose ??? vitamin with jmcaqorr-Dm-Srdm-FA Tablet Take by mouth. ??? albuteroL (Proventil) [...] History Administered Date(s) Administered ??? Moderna Covid-19 (Heat And Vent Aircraft Mechanic 100mcg) Vaccine 04/03/2020, 05/01/2020 Last Set of [...] 125, Variability: moderate, Accels: yes, Decels: none, [place]: 3 per 10 minutes Category: I Record Review Labs ABO/RH Not found Hgb/Hct Not found Platelets Not found Rubella Pos Syphillis Not found GC/Chlam Neg/neg Urine Culture Not found Varicella Pos HepC Ab Negative HepBsAg Negative HIV Negative 1 hr GTT Not found 3 hr GTT Pap test LSIL/HPV pos GBS Collected at [facility] and pending Most Recent Ultrasound Date: 05/20/21 GA at US: 19w5d EFW: 332g, [id number] Growth appropriate for gestational age Amniotic fluid volumenormal Placenta anterior Presentation cephalic Assessment & Plan Kiana Sarwat Merritt is a 31 y.o. at 33w6d gestation being admitted for labor. 1. Labor ?? Ordered for CBC, GCCT, and UDS. Group B strep collected at [facility] and pending. ?? Delivery indications: NRFHT, [...] GBS status: GBS pending (collected 08/26/21 at [facility]; they will send result) ?? T&S [...] 33 weeks gestation and admitted to the [facility] due to labor (beta complete). 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 Pt not taking progesterone asnot covered by insurance. -- Asthma: Moderately controlled with daily medication. Currently on Trelegy (pt takes 200 mcg dose, not 100 dose documented below in meds), Montelukast, ProAir PRN, and Nebulizer PRN. Was hospitalized this for an asthma exacerbation from 07/03-07/04 at [facility] due to no Trelagy for one [...] need pap -- Tachycardia/POTS - Seen by [facility] [place] who completed Ziopatch evaluation which demonstrated sinus tachycardia, but no malignant arrhythmias. Recommended against pharmacologic intervention during . I met with Kiana and her partner Golden. They are anticipating the of a daughter named Lilia.She is planning on her . We also discussed that parents are considered [...] EDT TH Visit (TeleHealth) Sleep Center at [facility] [address] [place] [address] Rae Valdivia MD [facility] [place] [address] documented as of this encounter Procedures Procedure [...] who have questions, please contact the health child care sitter that requested your imaging first. ?Abi Leazma, Used Equipment Sales Representative Electronically Signed Final Report ?? 08/27/2021 11:03 am Narrative 08/27/2021 11:03 AM EDT OBSTETRICS REPORT ?(Signed Final 08/27/2021 11:03 am) PATIENT INFO: ID #: ? [id number] ?: ??[birth year] (31 yrs)(F) Name: ? KIANA MERRITT ? Visit Date: 08/27/2021 09:33 am PERFORMED BY: Performed By: ? Anisha Perales RDMS Attending: ?Abi Lezama MD Referred By: ?MARYLOU DOANAHAN Location: ? [facility] SERVICE(S) PROVIDED: UOBFOL - Efw - Growth ??- [place] - [id number] INDICATIONS: 33 weeks gestation of ?Z3A.33 31 [...] 08/27/2021 11:03 am) PATIENT INFO: ID #: [id number] : [birth year] (31 yrs)(F) Name: KIANA MERRITT Visit Date: 08/27/2021 09:33 am PERFORMED BY: Performed By: Anisha Perales RDMS Attending: Abi Lezama MD Referred By: MARYLOU DELACRUZ Location: [facility] SERVICE(S) PROVIDED: UOBFOL - Efw - Growth - [place] - [id number] INDICATIONS: 33 weeks gestation of Z3A.33 31 [...] who have questions, please contact the health child care sitter that requested your imaging first. Abi Lezama, Used Equipment Sales Representative Electronically Signed Final Report 08/27/2021 11:03 am Mary[facility]ou Delacruz MD [facility] * Type and Screen Validity (08/27/2021 2:25 AM EDT) T&S only valid at [facility] LABORATORY Comment:This Type and Screen result is only valid at the [facility] Blood 08/27/2021 2:25 AM EDT 08/27/2021 2:38 AM EDT Narrative Resulting Agency Comment Spec In Lab Kendra Weston MD BLOOD BANK LAB ORDERABLES [facility] [place] [address] * Scan, Peripheral Blood (08/27/2021 2:25 AM EDT) Pathologist [facility] Plat estimate Normal [facility] RBC Morphology Abnormal [facility] Microcyte 6-10 /HPF [facility] Hypochromia Slight [facility] Polychromasia Present >5/HPF [facility] Ovalocytes 1-5 /HPF [facility] Tear Cell 1-5 /HPF [facility] Granville Cells 1-5 /HPF [facility] Stippled RBC Present >1/HPF [facility] Plat, Giant Less than 1 /HPF [facility] Blood 08/27/2021 2:25 AM EDT 08/27/2021 2:50 AM EDT Narrative Resulting Agency Comment Spec In Lab Kendra Weston MD HEMATOLOGY ORDE RABLES Performing Organization Address City/[facility]/ZIP Co de Phone Number [facility] [place] [address] * ABORH Recheck Status (08/27/2021 2:25 AM EDT) [facility] ABORH Recheck Order Order Placed [facility] ABORH Type Recheck Not performe [facility] Blood 08/27/2021 2:25 AM EDT 08/27/2021 2:38 AM EDT Narrative Resulting Agency Comment Spec In Lab Kendra Weston MD BLOOD BANK LAB ORDERABLES [facility] [place] [address] * (ABNORMAL) Differential, Automated (08/27/2021 2:25 AM EDT) [facility] Neutrophil % 84.5 % [facility] LABORATORY Neutrophil Absolute 11.30(H) 1.70 - 6.10 x10(3)/mc L [facility] Lymph % 10.7 % [facility] Lymphocytes Abs 1.4 0.9 - 3.2 x10(3)/ L [facility] Monocyte % 1.6 % [facility] Monocyte Abs 0.2(L) 0.3 - 0.9 x10(3)/ L [facility] Eos % 0.5 % [facility] Eosinophils Abs 0.1 0.0 - 0.4 x10(3)/[facility] LABORATORY Basophil % 0.2 % [facility] Baso Absolute 0.0 0.0 - 0.1 x10(3)/[facility] LABORATORY Immature Gran % 2.50 % [facility] Comment: Immature granulocytes(IG's)percentage and absolute count will include metamyelocytes, myelocytes, and promyelocytes. Blood smears from CBCs yielding IG's will be scanned manually for concordance. If this scan disagrees with the automated IG or if promyelocytes are noted, a manual differential will be performed. Immature Gran Absolute 0.34(H) 0.00 - 0.04 x10(3)/[facility] LABORATORY Blood 08/27/2021 2:25 AM EDT 08/27/2021 2:50 AM EDT Narrative Resulting Agency Comment Spec In Lab Kendra Weston MD HEMATOLOGY KAITLIN CARRASCO Performing Organization Address City/State/[facility] Co de Phone Number [facility] [place] [address] * (ABNORMAL) Hemogram (08/27/2021 2:25 AM EDT) White Blood Cell 13.4(H) 4.0 - 9.5 x10(3)/[facility] LABORATORY Red Blood Cell 4.25 4.00 - 5.21 x10(6)/[facility] LABORATORY Hemoglobin 9.4(L) 11.7 - 15.5 g/dL [facility] Hematocrit 30.0(L) 35.7 - 45.8 % [facility] Mean Cell Volume 70.6(L) 82.6 - 94.[address] [facility] Mean Cell Hemoglobin 22.1(L) 27.1 - 32.[address] [facility] Mean Cell Hemoglobin Concentration 31.3(L) 31.7 - 35.0 g/dL [facility] Platelet 208 145 - 357 x10(3)/mc L [facility] RDW Standard Deviation 40.6 37.0 - 46.[address] [facility] RDW coefficient of variation 16.0(H) 11.5 - 14.1 % [facility] Mean Platelet Volume 10.7 7.6 - 12.[address] [facility] NRBC% auto 0.0 % [facility] NRBC Absolute 0.000 0.000 - 0.000 x10(3)/mc L [facility] Blood 08/27/2021 2:25 AM EDT 08/27/2021 2:50 AM EDT Narrative Resulting Agency Comment Spec In Lab Kendra Weston MD [facility] Performing Organization Address City/[facility]/ZIP Co de Phone Number [facility] [place] [address] * Antibody screen (08/27/2021 2:25 AM EDT) Ab Screen Interp Negative [facility] Expires at 2359 on: 08/30/2021 [facility] Blood 08/27/2021 2:25 AM EDT 08/27/2021 2:38 AM EDT Narrative Resulting Agency Comment Spec In Lab Kendra Weston MD BLOOD BANK LAB ORDERABLES [facility] [place] [address] * ABO/Rh Typing (08/27/2021 2:25 AM EDT) ABORH Type B Pos [facility] Blood 08/27/2021 2:25 AM EDT 08/27/2021 2:38 AM EDT Narrative Resulting Agency Comment Spec In Lab Kendra Weston MD BLOOD BANK LAB ORDERABLES Performing Organization Address City/[facility]/ZIP Co de Phone Number [facility] [place] [address] * Syphilis Screening Antibody with reflex RPR (08/27/2021 2:25 AM EDT) Syphilis IgG/IgM Negative Negative [facility] Blood 08/27/2021 2:25 AM EDT 08/27/2021 2:50 AM EDT Narrative Resulting Agency Comment Spec In Lab Marylou Delacruz MD CHEMISTRY ORDERABLES Performing Organization Address [facility]/ZIP Co de Phone Number [facility] [place] [address] * (ABNORMAL) Urinalysis Microscopic Exam (08/27/2021 1:40 AM EDT) RBC, Urine 2 0 - 4 /HPF [facility] WBC, Urine 2 0 - 5 /HPF [facility] Squamous Epithelial Cells Raw Data, Urine 2 <=4 /HPF [facility] Amorphous Crystals, Urine Occasional (A) None /HPF [facility] Clean Catch Urine 08/27/2021 1:40 AM EDT 08/27/2021 2:51 AM EDT Narrative Resulting Agency Comment Spec In Lab Kendra Weston MD URINE ORDERABLE S Performing Organization Address City/[facility]/ZIP Co de Phone Number [facility] [place] [address] * Urine Hold (08/27/2021 1:40 AM EDT) Hold, Urine Sample in lab. [facility] Urine Urine / Unknown 08/27/2021 1 :40 AM EDT 08/27/2021 2:51 AM EDT Kendra Weston MD URINE ORDERABLE S [facility] [place] [address] * (ABNORMAL) Urinalysis with reflex Culture (08/27/2021 1:40 AM EDT) Glucose, Urine Dipstick 250(A) Negative mg/dL [facility] Protein, Urine Dipstick Negative Negative mg/dL [facility] Bilirubin, Urine Dipstick Negative Negative mg/dL [facility] Comment: Clinical correlation required for positive Urine Bilirubin results as false positive may occur with some drugs and drug related products. If a false positive is suspected a serum total bilirubin should be considered if clinically indicated. Urobilinogen, Urine Dipstick Normal Normal mg/dL [facility] pH, Urn (dipstick) 7.5 5.0 - 8.0 [facility] Blood, Urine Dipstick Negative Negative mg/dL [facility] Ketone, Urine Dipstick Trace(A) Negative mg/dL [facility] Nitrite, Urine Dipstick Negative Negative [facility] Leukocytes, Urine Dipstick Trace(A) Negative mcL [facility] Appearance, Urine Dipstick Cloudy(A) Clear [facility] Specific [place] Urine Automated 1.010 1.005 - 1.030 [facility] Color, Urine Dipstick Yellow Yellow [facility] Reflex to Culture No [facility] Clean Catch Urine 08/27/2021 1:40 AM EDT 08/27/2021 2:51 AM EDT Narrative Resulting Agency Comment Spec In Lab Marylou Delacruz MD URINE ORDERABLES Performing Organization Address [facility]/ZIP Co de Phone Number [facility] [place] [address] * GC/Chlamydia ([facility]CGP/APD/[facility]H) Cervical (08/27/2021 12:40 AM EDT) GC Gene Amp Negative Negative [facility] Comment: The only FDA approved specimen types for this assay are cervical, vaginal, urethral and urine. Non-FDA approved sources are eye, throat and rectal and have been internally validated. GC Source Cervical [facility] Chlamydia Gene Amp Negative Negative [facility] Comment: The only FDA approved specimen types for this assay are cervical, vaginal, urethral and urine. Non-FDA approved sources are eye, throat and rectal and have been internally validated. Chlm Source Cervical [facility] Cervical 08/27/2021 12:4 0 AM EDT 08/27/2021 5:10 AM EDT Narrative Resulting Agency Comment Spec In Lab Marylou Delacruz MD MICROBIOLOGY - GENER AL ORDERABLES Performing Organization Address [facility] Co de Phone Number [facility] [place] [address] * Rapid Drug Screen w/o Confirmation, Urine (08/27/2021 12:30 AM EDT) Barbiturates Screen, Urine None Detected None Detected [facility] Comment: The barbiturate screen detects [...] Benzodiazepines Screen, Urine None Detected None Detected [facility] Comment: The benzodiazepines screen detects [...] Cocaine Screen, Urine None Detected None Detected [facility] Comment: The cocaine metabolites screen detects benzoylecgonine (Cocaine Metabolite) at concentrations >150 ng/mL. A ? Presumptive Positive? result indicates that the screening result was positive but has not yet been confirmed by a highly-specific method. As with any screen, occasional false positive results from cross-reacting substances may occur. Not for Medico-Legal Purposes. Methadone Metabolites Screen, Urine None Detected None Detected [facility] Comment: The methadone metabolite screen detects EDDP (major methadone metabolite) at concentrations >100 ng/mL. A ? Presumptive Positive? result indicates that the screening result was positive but has not yet been confirmed by a highly-specific method. As with any screen, occasional false positive results from cross-reacting substances may occur. Not for Medico-Legal Purposes. Opiate Screen, Urine None Detected None Detected [facility] Comment: The opiates screen detects [...] Cannabinoid Screen, Urine None Detected None Detected [facility] Comment: The marijuana metabolites screen detects the THC metabolite (04-zri-3-carboxy-delta 9-THC) at concentrations >20 ng/mL. A ? Presumptive Positive? result indicates that the screening result was positive but has not yet been confirmed by a highly-specific method. As with any screen, occasional false positive results from cross-reacting substances may occur. Not for Medico-Legal Purposes. Oxycodone Screen, Urine None Detected None Detected [facility] Comment: The oxycodone screen detects oxycodone and oxymorphone at concentrations >100 ng/mL. A ? Presumptive Positive? result indicates that the screening result was positive but has not yet been confirmed by a highly-specific method. As with any screen, occasional false positive results from cross-reacting substances may occur. Not for Medico-Legal Purposes. Buprenorphine Screen, Urine None Detected None Detected [facility] Comment: The buprenorphine screen detects buprenorphine at concentrations >5 ng/mL. A ? Presumptive Positive? result indicates that the screening result was positive but has not yet been confirmed by a highly-specific method. As with any screen, occasional false positive results from cross-reacting substances may occur. Not for Medico-Legal Purposes. Fentanyl Screen, Urine None Detected None Detected [facility] Comment: The fentanyl screen detects fentanyl at concentrations >2 ng/mL. A ? Presumptive Positive? result indicates that the screening result was positive but has not yet been confirmed by a highly-specific method. As with any screen, occasional false positive results from cross-reacting substances may occur. Not for Medico-Legal Purposes. Tricyclics Screen, Urine None Detected None Detected [facility] Comment: The tricyclics screen detects [...] Ethanol Screen, Urine None Detected None Detected [facility] Comment:This urine ethanol a ssay detects ethanol at concentrations >/= 100 mg/L. Amphetamines Screen, Urine None Detected None Detected [facility] Comment: The amphetamine screen detects d-amphetamine and d-methamphetamine at concentrations >300 ng/mL. A ? Presumptive Positive? result indicates that the screening result was positive but has not yet been confirmed by a highly-specific method. As with any screen, occasional false positive results from cross-reacting substances may occur. Not for Medico-Legal Purposes. Adulterants Screen, Urine None Detected None Detected [facility] Comment: No adulteration or dilution of this urine sample was detected. All urine samples submitted for urine drugs of abuse analysis are tested for creatinine concentration, pH, and for the presence of oxidants, nitrites, and chromate. Urine 08/27/2021 12:3 0 AM EDT 08/27/2021 1:52 AM EDT Narrative Resulting Agency Comment Spec In Lab Kendra Weston MD CHEMISTRY ORDER SHITAL Performing Organization Address [facility] Co de Phone Number [facility] [place] [address] * Rapid Drug Screen, Urine (TIFFANY Request) (08/27/2021 12:30 AM EDT) TIFFANY Conf Requested No [facility] TIFFANY Requested See Comment [facility] Comment:Refer to Rapid Drug Screen w/o Confirmation, Urine for results. Urine 08/27/2021 12:3 0 AM EDT 08/27/2021 1:52 AM EDT Narrative Resulting Agency Comment Spec In Lab Marylou Delacruz MD URINE ORDERABLES Performing Organization Address [facility] Co de Phone Number [facility] [place] [address] documented in this encounter Visit Diagnoses Diagnosis [...] Given 08/27/2021 2:05 AM EDT 50 mg lngnenxzygr-pilmoiaiatzi-ydlmdntbb l (Trelegy Ellipta) 200-62.5-25 mcg inhaler 1 [...] 1 dose, On Thu08/28/21 at 2130, Routine qykbllupfix-rvfcocllnocx-a ilanterol (Trelegy Ellipta) 200-62.5-25 mcg inhaler 1 puff 1 puff, Inhalation, DAILY, First dose on Thu08/27/21 at 0900, Until Discontinued, Rinse mouth with water after use (do not swallow)., Routine, Does the patient have the inspiratory effort to support a dry powder inhaler? Yes 08 (Given - Provider: Fatimah Gomez RN) 08 (Given - Provider: Shakila Mario RN) montelukast (Singulair) tablet 10 mg 10 mg, Oral, NIGHTLY, First dose on Thu08/27/21 at 2100, Until Discontinued, Routine 2048 (Given - Provider: Nena Christie, SIMONA) NIFEdipine (Procardia) capsule 20 mg (COMPLETED)(Linked Group 1) 20 mg, Oral, ONCE, 1 dose, On Thu08/27/21 at 0200, May repeat in 30 minutes if still sam, Routine, Is NIFEdipine being used for tocolytic in labor? Yes 129 (Given - Provider: Snehal Deras RN) NIFEdipine (Procardia) capsule 20 mg (CANCELED)(Linked Group 1) 20 mg, Oral, EVERY 8 HOURS, First dose on Thu08/27/21 at 1000, Until Discontinued, Hold NIFEdipine for blood pressure less than 85/55 mmHg and notify provider, Routine, Is NIFEdipine being used for tocolytic in labor? Yes 1031 (Given - Provider: Juliet Harris RN)1744 (Given - Provider: Natalia Payne RN) 0138 (Given - Provider: Nena Christie, SIMONA) NIFEdipine (Procardia) capsule 20 mg (COMPLETED) 20 mg, Oral, ONCE, 1 dose, On Thu08/27/21 at 0245, Routine, Is NIFEdipine being used for tocolytic in labor? Yes 020 (Given - Provider: Snehal Deras RN - [...] , Indication for (Active or Suspected): Prophylaxis 213 (New Bag - Provider: Snehal Deras RN)031 (Stopped - Provider: Snehal Deras RN) sodium [...] Prophylaxis documented in this encounter Care Teams Cook Chief Relationship Specialty Start Date End Date [place] [address] PCP - General Family Medicine 11/19/20 11/20/22 documented as of this encounter
--- OUTSIDE RECORDS SUMMARY | 2024-03-18 15:51 | XMS_ITS | Encounter Summary ---
[facility] [place] [address] Care Team Providers Care Pit Laborer Name Role Phone Unavailable Primary Care Provider Unavailabl e Reason for Visit * Reason Comments Breast Problem Encounter Details Date Type Department Care Team ([facility] st Contact Info) Description 10/06/2015 7:18 PM EDT - 10/06/2015 9:24 PM EDT [place] [address] Stephanie Hernandez MD [address] [place] [address] [place] [address] Mastitis chronic, left Discharge Disposition: Home Social [...] milk duct is emptied. Please let yourlactation wig sales consultant know about this as well so [...] be sent through Care Everywhere. * MASTITIS (HUNGARIAN) documented in this encounter Medications at Time [...] home on Keflex. Stephanie Hernandez MD 10/07/15 [id number] * Luis Armando Quispe, SIMONA - 10/06/2015 7:24 PM EDT Left breast [...] EDT TH Visit (TeleHealth) Sleep Center at [facility] [address] [place] [phone] Rae Valdivia MD [facility] [place] [address] documented as of this encounter Visit Diagnoses [...] for (Active or Suspected): Other (See comment) / breast Given 10/06/2015 9:05 PM EDT 500 mg [...] for (Active or Suspected): Other (See comment) / breast 2104 (Given - Provid er: Luis Armando Quispe RN) documented in this encounter
--- OUTSIDE RECORDS SUMMARY | 2024-03-18 15:51 | XMS_ITS | Encounter Summary ---
Author Organization [facility] [place] [address] Care Team Providers Care City Manager Name Role Phone Unavailable Primary Care Provider Unavailabl e Reason for Visit * Reason Comments Follow-up Encounter Details Date Type Department Care Team (Late st Contact Info) Description 09/21/2015 4:30 PM EDT Office Visit Obstetrics [place] [address] Trudy Virgen MD [facility] DR OBSTETRICS & [place] [address] Mastitis Social History Tobacco Use Types Packs/Day [...] Past Surgical History Procedure Laterality Date ??? [place] tooth extraction ??? section, low transverse Family [...] with concern for mastitis after meeting with coding consultant today. Exam consistent with this diagnosis. [...] EDT TH Visit (TeleHealth) Sleep Center at [facility] [address] [place] [address] Rae Valdivia MD [facility] [place] [address] documented as of this encounter Visit Diagnoses Diagnosis Mastitis Inflammatory disease of breast documented in this encounter
--- OUTSIDE RECORDS SUMMARY | 2024-03-18 15:51 | XMS_ITS | Encounter Summary ---
Author Organization [facility] [place] [address] Care Team Providers Care Wet Pan Mixer Name Role Phone Unavailable Primary Care Provider Unavailabl e Encounter Details Date Type Department Care Team (Latest Contact Info) Description 06/25/2015 9:11 AM EDT - 06/25/2015 11:59 PM EDT Hospital [place] [phone] Tim Yan MD [facility] OBSTETRICS [place] [address] History of labor Discharge Disposition: Home Social [...] EDT TH Visit (TeleHealth) Sleep Center at [facility] [address] [place] [address] Rae Valdivia MD [facility] [place] [address] documented as of this encounter Procedures Procedure [...] 11:02 am) Patient Info ID #: ? [id number] ?: ??[birth year] (25 yrs) Name: ? MIYA GUILLEN ? Visit Date: 06/25/2015 09:15 am Performed By Performed By: ? Amanda CELIS, ??Joyce Attending: ?Teja DIEHL, Abi Seth Referred By: ?IVETTE CARROLL CNM Service(s) Provided ??UM - Detailed Morphology - Genetics - [id number] ?[id number] ??UOBTV - Viability - Cervical Length - Transvaginal - ??[id number] ??[id number] Indications ??morph; cervical length; E - Coordinates [...] ?68.2 ??% FL/AC: ? 20.6 ??% ? 20 - 24 Est. FW: ? 264 ?? gm ? [...] Outflow Tract: ?Visualized Aortic Arch: ?Visualized Cardiac [place]: ? Visualized 3 Vessel View: ?Visualized Diaphragm: [...] 06/25/2015 11:02 am) Patient Info ID #: [id number] : [birth year] (25 yrs) Name: MIYA GUILLEN Visit Date: 06/25/2015 09:15 am Performed By Performed By: Joyce Patel RDMS Attending: Abi Lezama MD Referred By: IVETTE HARTLEY-EVITA [facility] Service(s) Provided [facility] - Detailed Morphology - Genetics - [id number] UOBTV - Viability - Cervical Length - Transvaginal - [id number] Indications morph; cervical length; E - Coordinates [...] Outflow Tract: Visualized Aortic Arch: Visualized Cardiac [place]: Visualized 3 Vessel View: Visualized Diaphragm: Visualized [...]
--- OUTSIDE RECORDS SUMMARY | 2024-03-18 15:51 | XMS_ITS | Encounter Summary ---
Author Organization [facility] [place] [address] Care Team Providers Care Rn Care Transition Name Role Phone Unavailable Primary Care Provider Unavailabl e Encounter Details Date Type Department Care Team (Late st Contact Info) Description 05/21/2015 Orders Only Obstetrics [place] [address] Abi Lezama MD [facility] [address] OBSTET[place]ICS [place] [address] Supervision of high risk in second trimester [...] EDT TH Visit (TeleHealth) Sleep Center at [facility] [address] [place] [address] Rae Valdivia MD [facility] [place] [address] documented as of this encounter Visit Diagnoses Diagnosis Supervision of high risk in second trimester Unspecified high-risk documented in this encounter
--- OUTSIDE RECORDS SUMMARY | 2024-03-18 15:51 | XMS_ITS | Encounter Summary ---
Author Organization [facility] [place] [address] Care Team Providers Care Rn Hospital Name Role Phone Unavailable Primary Care Provider Unavailabl e Reason for Visit * Reason Comments Ultrasound Encounter Details Date Type Department Care Team (Late st Contact Info) Description 07/24/2015 4:30 PM EDT Office Visit Obstetrics [place] [address] Abi Lezama MD [facility] DR OBSTETRICS [place] [address] History of labor, current , second trimester [...] Plan: Return to care locally. Seen with Dr. Lezama Martha Attending. YUN HAWKINS MD, PGY4 07/24/2015 I saw the patient and Dr. Hawkins and agree with her assessment and plan. Abi Lezama MD 07/24/2015 Cc: Veronika Smiley CNM documented in this encounter Plan of Treatment Upcoming Encounters Date Type Department Care Team (Late st Contact Info) Description 07/07/2024 4:00 PM EDT TH Visit (TeleHealth) Sleep Center at [facility] [address] [place] [address] Rae Valdivia MD [facility] [place] [address] documented as of this encounter Visit Diagnoses Diagnosis History of labor, current , second trimester documented in this encounter
--- OUTSIDE RECORDS SUMMARY | 2024-03-18 15:51 | XMS_ITS | Encounter Summary ---
Author Organization Formerly [facility] [place] [address] Care Team Providers Care Grain Operator Name Role Phone Unavailable Primary Care Provider Unavailabl e Reason for Visit * Reason Comments Breast Problem * Auth/Cert Specialty Diagnoses / Procedures Referred By Contac t Referred To Contact Diagnoses Mastitis, obstetric, condition M Procedures Ultrasound Referral ID Status Reason Start Date Expiration Date Visits Re quested Visits Authorized [id number] 1 1 Encounter Details Date Type Department Care Team (Latest Contact Info) Description 10/12/2015 5:09 PM EDT - 10/15/2015 5:02 PM EDT Hospital Encounter [address] [place] [address] Itzel Kelly MD [facility] [address] [place] [address] Discharge Disposition: Home Social History Tobacco Use [...] Kiana Gallegos Patient Age: 25 y.o. Language: Serbian Race: White Ethnicity: OR Admit date: 10/12/2015 Discharge date and time: 10/15/2015 Attending Physician: Itzel Kelly MD Discharge Physician: Aria Peck MD Follow-up Recommendations for Providers: F/up in one to two weeks to ensure continued improvement. This [place] to make appointment. Inpatient Provider Contact Information: [facility] [place] Obstetrics and Gynecology [phone] Discharge Diagnoses (Hospital Problems) and Secondary Diagnoses (Chronic Problems): Active Hospital Problems Diagnosis ??? Mastitis, obstetric, condition ??? H/O section Resolved Hospital Problems Diagnosis Date Resolved No resolved problems to display. Active Non-Hospital Problems Diagnosis ??? Depression ??? History of obstetric problem ??? Lower urinary tract infectious disease History of Presentation: 25 y.o. Female presents to [facility] [place] at 5.5 weeks s/p stat pLTCS at [...] day course of dicloxacillin after visiting the [facility] [place] O[place] clinic on 09/21/15 for similar symptoms and was feeling well. Her symptoms returned after a few days and she visited the [facility] [place] ED on 10/06/15 where she was treated [...] you would like to follow up at [facility] rather than with your home provider, please call to make this appointment. ([phone]). Patient Discharge Instructions: For problems or concerns related to this hospitalization call: [phone] weekdays, or [phone] weekends or nights. Call your doctor if [...] you would like to follow up at [facility] rather than with your home provider, please call to make this appointment. ([phone]). Patient Discharge Instructions: For problems or concerns related to this hospitalization call: [phone] weekdays, or [phone] weekends or nights. Call your doctor if [...] ID: Kiana Gallegos 25 y.o. presents to [facility] [place] at 5.5 weeks s/p stat pLTCS at [...] Assessment: Kiana Gallegos 25 y.o. presents to [facility] [place] at 5.5 weeks s/p stat pLTCS at [...] ID: Kiana Gallegos 25 y.o. presents to [facility] [place] at 5.5 weeks s/p stat pLTCS at [...] Assessment: Kiana Gallegos 25 y.o. presents to [facility] [place] at 5.5 weeks s/p stat pLTCS at [...] post op after a stat LTCS at [id number] cord prolapse who as admitted with mastitis. [...] ID: Kiana Gallegos 25 y.o. presents to [facility] [place] at 5.5 weeks s/p stat pLTCS at [...] Assessment: Kiana Gallegos 25 y.o. presents to [facility] [place] at 5.5 weeks s/p stat pLTCS at [...] for Visit: 25 y.o. Female presents to [facility] [place] [place] at 5.5 weeks s/p stat pLTCS at [...] day course of dicloxacillin after visiting the [facility] [place] OBG[place] clinic on 09/21/15 for similar symptoms and was feeling well. Her symptoms returned after a few days and she visited the [facility] [place] [place] ED on 10/06/15 where she was treated for mastitis with a 10 day course of Keflex and instructed to followup with her OBGYN if her symptoms did not improve. Review of Systems All other systems reviewed negative except as per HPI. Past Medical and Surgical History: Past Medical History Diagnosis Date ??? Mastitis Past Surgical History Procedure Laterality Date ??? [place] tooth extraction ??? section, low transverse Past [...] 10/12/2015 Assessment/Plan: 25 y.o. Female presents to [facility] [place] at 5.5 weeks s/p stat pLTCS at 28w2d for cord prolapse with left breast pain likely 2/2 mastitis. She is on her second round of oral antibiotics forthe same symptoms in the last 3 weeks. Due to her being admitted to the [facility] [place] [place] ICN she had been in the hospital [...] information for mother in the ICN. ?? [facility] Services Zeinab Adler RN, IBCLC * Plan of Care - Arielle Mejia RN - 10/15/2015 4:34 AM EDT Problem: General Plan of Care Goal: Plan of Care Review Outcome: Ongoing (Interventions Implemented as Appropriate) 10/14/15 1446 10/14/15 5209 Plan of Care Review Plan of Care [...] (Interventions Implemented as Appropriate) 10/14/15 1111 10/14/15 0739 Safety Interventions Isolation Precautions standard precautions maintained [...] Past Surgical History Procedure Laterality Date ??? [place] tooth extraction ??? section, low transverse Prior [...] Iglesia Ramirez MD Infectious Disease Fellow Pager [phone] Attending Addendum: I have seen and examined [...] that may affect her and pumping for in ICN Patient Specific Interventions -- admin. [...] Norton MD - 10/13/2015 4:12 PM EDT [facility] Department of Surgery Inpatient Consult Note Consultation [...] Past Surgical History Procedure Laterality Date ??? [place] tooth extraction ??? section, low transverse Family [...] Discussed with Dr. Tierra NORTON MD 10/13/2015 9049 Thank you for this consult. If you have any questions regarding this consult, please page [phone] (days)/[phone] (Nights) if you have any further questions. [...] EDT TH Visit (TeleHealth) Sleep Center at [facility] [address] [place] [address] Rae Valdivia MD [facility] [place] [address] documented as of this encounter Procedures Procedure [...] 05:47 pm) PATIENT INFO: ID #: ? [id number] ?: ??[birth year] (25 yrs) Name: ? KIANA GALLEGOS ? Visit Date: 10/14/2015 02:34 pm PERFORMED BY: Performed By: ? Kenn Hobbs RDMS Attending: ?Avani DIEHL, Susana Shanks Associate: ?Leonardo DIEHL, Sam Palmer Referred By: ?IVETTE CARROLL CN SERVICE(S) PROVIDED: ??UBR - Ultrasound Breast Scan Only LIMITED ? [id number] ??LEFT ??- [id number] INDICATIONS: ??eval for development of asbcess LEFT BREAST: Comment: ?Again noted, multiple branching and ? interconnecting tubular hypoechoic areas ? measuring less than 1 cm in thickness in the mid ? to lateral left breast at approximately the 2-3 ? o'clock position. No drainable organized focal fluid ? collection identified. Itzel Kelly MD IMG GEN ORDERABLE S * Scan, Peripheral Blood (10/14/2015 3:35 AM EDT) Pathologist [facility] Plat estimate Normal [facility] RBC Morphology Normal [facility] Blood specimen (specimen) 10/14/2015 3:35 AM EDT 10/14/2015 3:46 AM EDT Narrative Resulting Agency Comment Spec In Lab Itzel Kelly MD HEMATOLOGY ORDERABLE S [facility] [place] [address] * (ABNORMAL) Differential, Automated (10/14/2015 3:35 AM EDT) [facility] Neutrophil % 75.4 % [facility] Neutrophil Absolute 8.10(H) 1.50 - 6.30 x10(3)/[facility] Lymph % 15.1 % [facility] Lymphocytes Abs 1.6 1.0 - 3.6 x10(3)/[facility] Monocyte % 4.9 % [facility] Monocyte Abs 0.5 0.2 - 1.0 x10(3)/[facility] Eos % 3.4 % [facility] Eosinophils Abs 0.4 0.0 - 0.5 x10(3)/[facility] Basophil % 0.2 % [facility] Baso Absolute 0.0 0.0 - 0.2 x10(3)/[facility] Immature Gran % 1.00 % [facility] Comment: Immature granulocytes(IG's)percentage and absolute count will include metamyelocytes, myelocytes, and promyelocytes. Blood smears from CBCs yielding IG's will be scanned manually for concordance. If this scan disagrees with the automated IG or if promyelocytes are noted, a manual differential will be performed. Immature Gran Absolute 0.11(H) 0.00 - 0.05 x10(3)/[facility] Blood specimen (specimen) 10/14/2015 3:35 AM EDT 10/14/2015 3:46 AM EDT Narrative Resulting Agency Comment Spec In Lab Itzel Kelly MD HEMATOLOGY ORDERABLE S [facility] [place] [address] * (ABNORMAL) Hemogram (10/14/2015 3:35 AM EDT) White Blood Cell 10.8(H) 4.0 - 10.0 x10(3)/[facility] Red Blood Cell 3.76(L) 3.93 - 5.22 x10(6)/mc L [facility] Hemoglobin 9.2(L) 11.2 - 15.7 gm/dL [facility] Hematocrit 29.1(L) 34.0 - 45.0 % [facility] Mean Cell Volume 77.4(L) 79.0 - 94.0 fL [facility] Mean Cell Hemoglobin 24.5(L) 26.6 - 32.2 pg [facility] Mean Cell Hemoglobin Concentration 31.6(L) 32.0 - 36.5 gm/dL [facility] Platelet 212 145 - 370 x10(3)/mc L [facility] RDW Standard Deviation 39.3 35.0 - 46.0 fL [facility] RDW coefficient of variation 13.8 10.9 - 14.4 % [facility] Mean Platelet Volume 11.1 9.0 - 12.0 fL [facility] NRBC% auto 0.0 % [facility] NRBC Absolute 0.000 0.000 - 0.012 x10(3)/mc L [facility] Blood specimen (specimen) 10/14/2015 3:35 AM EDT 10/14/2015 3:46 AM EDT Narrative Resulting Agency Comment Spec In Lab Itzel Kelly MD HEMATOLOGY ORDERABLE S Performing Organization Address City/[facility]/ZIP Co de Phone Number [facility] [place] [address] * CK (10/14/2015 3:35 AM EDT) Creatine Kinase 36 0 - 160 unit/L [facility] Blood specimen (specimen) 10/14/2015 3:35 AM EDT 10/14/2015 3:46 AM EDT Narrative Resulting Agency Comment Spec In Lab Itzel Kelly MD CHEMISTRY ORDERABLES Performing Organization Address City/[facility]/ZIP Co de Phone Number [facility] [place] [address] * (ABNORMAL) BMP w/fasting Glucose (10/14/2015 3:35 AM EDT) [facility] Signature Glucose Fasting 98 65 - 99 mg/dL [facility] Comment: ?Fasting* Glucose Interpretive Criteria Normal [...] of Diabetes Mellitus, Position Statement from the [place] [employer]. ??Diabetes Care, Volume 33, Supplement 1, Feb 2009 Blood Urea Nitrogen 7(L) 8 - 18 mg/dL [facility] Creatinine 0.82 0.70 - 1.20 mg/dL [facility] Comment: Please note that the pediatric reference intervals supplied above were not validated at [facility] [place] [place]. Results from pediatric patients should be interpreted in conjunction to the patient's age, height and muscle mass. Sodium 140 135 - 145 mmol/L [facility] Potassium 4.0 3.5 - 5.0 mmol/L [facility] Comment: Please note: ??Patients with WBC >100,000 may have falsely elevated Potassium levels. ??For accurate Potassium quantification in these patients send serum separator tube (gold top) for subsequent determinations. ??Contact the Clinical Chemistry Laboratory if there are any questions. Chloride 103 98 - 107 mmol/L [facility] Carbon Dioxide 22 22 - 31 mmol/L [facility] Anion Gap 15 5 - 15 mmol/L [facility] Calcium 8.4(L) 8.5 - 10.5 mg/dL [facility] Est Glomerular Filtration Rate >60 >=60 [facility] Comment: This estimated GFR (eGFR) [...] the following links into your internet browser. [email or web address] [email or web address] Blood specimen (specimen) 10/14/2015 3:35 AM EDT 10/14/2015 3:46 AM EDT Narrative Resulting Agency Comment Spec In Lab Itzel Kelly MD CHEMISTRY ORDERABLES [facility] [place] [id number] * (ABNORMAL) Body fluid culture (10/13/2015 11:05 PM EDT) Body Fluid Culture Few Enterobacter cloacae Few Stenotrophomonas maltophilia Few mixed bacterial morphotypes suggestive of normal cutaneous matt (A) [facility] Gram Stain Few White Blood Cells seen No microorganisms seen. (A) [facility] Organism Enterobacter cloacae(A) [facility] Organism Stenotrophomonas maltophilia(A) [facility] Specimen of unknown material (specimen) 10/13/2015 [...] METHOD Sensitive Itzel Kelly MD MICROBIOLOGY - GENER AL ORDERABLES [facility] [place] [address] * (ABNORMAL) Differential, Automated (10/13/2015 2:41 PM EDT) Neutrophil % 90.0 % [facility] Neutrophil Absolute 13.71(H) 1.50 - 6.30 x10(3)/mc L [facility] Lymph % 5.8 % [facility] Lymphocytes Abs 0.9(L) 1.0 - 3.6 x10(3)/mc L [facility] Monocyte % 3.0 % [facility] Monocyte Abs 0.5 0.2 - 1.0 x10(3)/mc L [facility] Eos % 0.3 % [facility] Eosinophils Abs 0.0 0.0 - 0.5 x10(3)/mc L [facility] Basophil % 0.1 % [facility] Baso Absolute 0.0 0.0 - 0.2 x10(3)/mc L [facility] Immature Gran % 0.80 % [facility] Comment: Immature granulocytes(IG's)percentage and absolute count will include metamyelocytes, myelocytes, and promyelocytes. Blood smears from CBCs yielding IG's will be scanned manually for concordance. If this scan disagrees with the automated IG or if promyelocytes are noted, a manual differential will be performed. Immature Gran Absolute 0.12(H) 0.00 - 0.05 x10(3)/ L [facility] Blood specimen (specimen) 10/13/2015 2:41 PM EDT 10/13/2015 2:41 PM EDT Narrative Resulting Agency Comment Spec In Lab Itzel Kelly MD HEMATOLOGY ORDERABLE S [facility] [place] [address] * (ABNORMAL) Hemogram (10/13/2015 2:41 PM EDT) White Blood Cell 15.2(H) 4.0 - 10.0 x10(3)/mc L [facility] Red Blood Cell 3.84(L) 3.93 - 5.22 x10(6)/mc L [facility] Hemoglobin 9.4(L) 11.2 - 15.7 gm/dL [facility] Hematocrit 29.9(L) 34.0 - 45.0 % [facility] Mean Cell Volume 77.9(L) 79.0 - 94.0 fL [facility] Mean Cell Hemoglobin 24.5(L) 26.6 - 32.2 pg [facility] Mean Cell Hemoglobin Concentration 31.4(L) 32.0 - 36.5 gm/dL [facility] Platelet 222 145 - 370 x10(3)/mc L [facility] RDW Standard Deviation 38.7 35.0 - 46.0 fL [facility] RDW coefficient of variation 13.6 10.9 - 14.4 % [facility] Mean Platelet Volume 11.2 9.0 - 12.0 fL [facility] NRBC% auto 0.0 % [facility] NRBC Absolute 0.000 0.000 - 0.012 x10(3)/mc L [facility] Blood specimen (specimen) 10/13/2015 2:41 PM EDT 10/13/2015 2:41 PM EDT Narrative Resulting Agency Comment Spec In Lab Itzel Kelly MD HEMATOLOGY ORDERABLE S Performing Organization Address [facility] Co de Phone Number [facility] [place] [address] * Lactate, whole blood, send to lab (10/13/2015 2:41 PM EDT) Lactate WB 1.9 0.5 - 2.2 mmol/L [facility] Blood specimen (specimen) 10/13/2015 2:41 PM EDT 10/13/2015 2:41 PM EDT Narrative Resulting Agency Comment Spec In Lab Itzel Kelly MD CHEMISTRY ORDERABLES Performing Organization Address [facility] Co de Phone Number [facility] [place] [address] * Blood culture (10/13/2015 2:41 PM EDT) Blood Culture No growth at 5 days. [facility] Blood specimen (specimen) 10/13/2015 2:41 PM EDT 10/13/2015 3:40 PM EDT Comment:LH Narrative Resulting Agency Comment Spec In Lab Itzel Kelly MD MICROBIOLOGY - BLOOD ORDERABLES Performing Organization Address [facility] Co de Phone Number [facility] [place] [address] * Blood culture (10/13/2015 2:35 PM EDT) Blood Culture No growth at 5 days. [facility] Blood specimen (specimen) 10/13/2015 2:35 PM EDT 10/13/2015 3:48 PM EDT Comment:L AC Narrative Resulting Agency Comment Spec In Lab Itzel Kelly MD MICROBIOLOGY - BLOOD ORDERABLES [facility] [place] [address] * US Breast Scan Only Left (10/13/2015 [...] 03:57 pm) PATIENT INFO: ID #: ? [id number] ?: ??[birth year] (25 yrs) Name: ? KIANA Fam EL ? Visit Date: 10/13/2015 12:35 pm PERFORMED BY: Performed By: ? Kenn Hobbs RDMS Attending: ?Jono DIEHL, Demar Esquivel Associate: ?Sam [place] MD Referred By: ?IVETTE CARROLL CNM SERVICE(S) PROVIDED: ??UBR - Ultrasound Breast Scan Only LEFT - ?[id number] ??[id number] INDICATIONS: ??Mastitis, failed abx therapy x 2, evaluate for ??breast abscess LEFT BREAST: Comment: ?Multiple thin, linear branching interconnected ? ribbons of flujid throughout the breast with ? hyperemia, Itzel Kelly MD [facility] GEN ORDERABLE S * Urine culture (10/13/2015 11:57 AM EDT) Urine Culture No growth (Less than 1,000 cfu/ml). [facility] Urine specimen obtained by clean catch procedure (specimen) 10/13/2015 11:57 AM EDT 10/13/2015 7:11 PM EDT Narrative Resulting Agency Comment Spec In Lab Itzel Kelly MD MICROBIOLOGY - GENER AL ORDERABLES [facility] [place] [address] * Urine Hold (10/13/2015 11:57 AM EDT) Hold, Urine Sample in lab. [facility] Urine specimen (specimen) Urine / Unknown 10/13/2015 11:57 AM EDT 10/13/2015 4:39 PM EDT Itzel Kelly MD URINE ORDERABLES [place] [address] * (ABNORMAL) Urinalysis with reflex Culture (10/13/2015 11:57 AM EDT) Glucose, Urine Dipstick Negative Negative mg/dL [facility] Protein, Urine Dipstick Negative Negative mg/dL [facility] Bilirubin, Urine Dipstick Negative Negative mg/dL [facility] Comment: Clinical correlation required for positive Urine Bilirubin results as false positive may occur with some drugs and drug related products. If a false positive is suspected a serum total bilirubin should be considered if clinically indicated. Urobilinogen, Urine Dipstick Normal Normal mg/dL [facility] pH, Urn (dipstick) 7.0 5.0 - 8.0 [facility] Blood, Urine Dipstick Negative Negative mg/dL [facility] Ketone, Urine Dipstick Negative Negative mg/dL [facility] Nitrite, Urine Dipstick Negative Negative [facility] Leukocytes, Urine Dipstick Small(A) Negative [facility] Appearance, Urine Dipstick Hazy(A) Clear [facility] Specific [place] Urine Automated 1.010 1.002 - 1.030 [facility] Color, Urine Dipstick Yellow Yellow [facility] RBC, Urine <1 0 - 4 /HPF [facility] WBC, Urine 8(H) 0 - 5 /HPF [facility] Bacteria, Urine Rare(A) None /HPF [facility] Squamous Epithelial Cells, Urine 15(H) <=4 /HPF [facility] Reflex to Culture Yes [facility] Urine specimen obtained by clean catch procedure (specimen) 10/13/2015 11:57 AM EDT 10/13/2015 4:39 PM EDT Narrative Resulting Agency Comment Spec In Lab Itzel Kelly MD URINE ORDERABLES [facility] [place] [address] * (ABNORMAL) Differential, Automated (10/12/2015 6:59 PM EDT) Pathologist [facility] Neutrophil % 89.1 % [facility] Neutrophil Absolute 10.55(H) 1.50 - 6.30 x10(3)/mc L [facility] Lymph % 5.8 % [facility] Lymphocytes Abs 0.7(L) 1.0 - 3.6 x10(3)/ L [facility] Monocyte % 3.7 % [facility] Monocyte Abs 0.4 0.2 - 1.0 x10(3)/ L [facility] Eos % 1.0 % [facility] Eosinophils Abs 0.1 0.0 - 0.5 x10(3)/[facility] Basophil % 0.1 % [facility] Baso Absolute 0.0 0.0 - 0.2 x10(3)/ L [facility] Immature Gran % 0.30 % [facility] Comment: Immature granulocytes(IG's)percentage and absolute count will include metamyelocytes, myelocytes, and promyelocytes. Blood smears from CBCs yielding IG's will be scanned manually for concordance. If this scan disagrees with the automated IG or if promyelocytes are noted, a manual differential will be performed. Immature Gran Absolute 0.03 0.00 - 0.05 x10(3)/ L [facility] Blood specimen (specimen) 10/12/2015 6:59 PM EDT 10/12/2015 8:25 PM EDT Narrative Resulting Agency Comment Spec In Lab Itzel Kelly MD HEMATOLOGY ORDERABLE S [facility] [place] [address] * (ABNORMAL) Hemogram (10/12/2015 6:59 PM EDT) White Blood Cell 11.8(H) 4.0 - 10.0 x10(3)/[facility] Red Blood Cell 4.51 3.93 - 5.22 x10(6)/mc L [facility] Hemoglobin 11.0(L) 11.2 - 15.7 gm/dL [facility] Hematocrit 34.7 34.0 - 45.0 % [facility] Mean Cell Volume 76.9(L) 79.0 - 94.0 fL [facility] Mean Cell Hemoglobin 24.4(L) 26.6 - 32.2 pg [facility] Mean Cell Hemoglobin Concentration 31.7(L) 32.0 - 36.5 gm/dL [facility] Platelet 289 145 - 370 x10(3)/[facility] RDW Standard Deviation 37.4 35.0 - 46.0 fL [facility] RDW coefficient of variation 13.3 10.9 - 14.4 % [facility] Mean Platelet Volume 11.1 9.0 - 12.0 fL [facility] NRBC% auto 0.0 % [facility] NRBC Absolute 0.000 0.000 - 0.012 x10(3)/[facility] Blood specimen (specimen) 10/12/2015 6:59 PM EDT 10/12/2015 8:25 PM EDT Narrative Resulting Agency Comment Spec In Lab Itzel Kelly MD HEMATOLOGY ORDERABLE S [facility] [place] [address] documented in this encounter Visit Diagnoses Diagnosis [...] dose on 10/13/15 at 2300, Until Discontinued, Routine, Indication for (Active or Suspected): Skin/Skin Structure, Restricted Antibiotic: Please indicate the most appropriate choice: ID Aprroval by Iglesia Ramirez Given 10/14/2015 11:19 PM EDT 375 mg [...] Thu10/12/15 at 1915, Until Thu10/14/15 at 1043 New Bag 10/13/2015 8:11 PM [...] , Dose rounded per Dose Rounding Policy, Routine, Indication for (Active or Suspected): Bacteremia/Sepsis Given 10/13/2015 1:50 PM EDT 1,500 mg [...] Skin/Skin Structure 0433 (Given - Provider: Yovany Pineda, SIMONA)1210 (Given - Provider: Kadie Avila, SIMONA) clindamycin (CLEOCIN) 600mg in dextrose 5% 50mL (CANCELED) 600 mg, Intravenous, EVERY 8 HOURS, First dose on 10/13/15 at 1800, Until Discontinued, Administer over 20 Minutes, Indication for (Active or Suspected): Skin/Skin Structure 190 (Given - Provider: Remedios Jackson, RN) DAPTOmycin (CUBICIN) 375 mg in sodium chloride 0.9% 57.5 mL 375 mg, Intravenous, at 115 mL/hr, EVERY 24 HOURS, First dose on 10/13/15 at 2300, Until Discontinued, Routine, Indication for (Active or Suspected): Skin/Skin Structure, Restricted Antibiotic: Please indicate the most appropriate choice: ID Aprroval by Iglesia Ramirez 2085 (Given - Provider: Camille Reddy, RN) 4262 (Given - Provider: Arielle Mejia, SIMONA) lactobacillus (BACID) tablet 1 tablet 1 tablet, Oral, DAILY, First dose on 10/13/15 at 1800, Until Discontinued, Routine 2013 (Given - Provider: Gavi Gomez RN) 0900 (Given - Provider: Kadie Avila, SIMONA) 0925 (Given - Provider: Shadia Velázquez RN) [...] 1215 1355 (Given - Provider: Kadie Avila, SIMONA) vancomycin 1.5 g in sodium chloride 0.9% [...] , Dose rounded per Dose Rounding Policy, Routine, Indication for (Active or Suspected): Bacteremia/Sepsis 1350 (Given - Provider: Kadie Avila, RN) Continuous Medication Order 10/13/2015 10/14/2015 10/15/2015 lactated ringers infusion (CANCELED) 100 mL/hr, Intravenous, CONTINUOUS, Starting on Thu10/12/15 at 1915, Until Thu10/14/15 at 1043 0444 (New Bag - Provider: Yovany Pineda RN)1456 (New Bag - Provider: Remedios Jackson, SIMONA)2010 (New Bag - Provider: Gavi Gomez RN) PRN Medication Order 10/13/2015 10/14/2015 10/15/2015 acetaminophen (TYLENOL) tablet 1,000 mg(Linked Group 2) 1,000 mg, Oral, EVERY 6 HOURS PRN, Starting on Thu10/12/15 at 1857, Until 10/15/15 at 1902, Pain, - Moderate pain (pain scale 4-6). - Maximum dose of acetaminophen is 4000 mg from all sources in 24 hours., Recovery (Recovery-Hospital Unit), Routine 0441 (Given - Provider: Yovany Pineda RN)1143 (Given - Provider: Kadie Avila, SIMONA)1833 (Given - Provider: Kadie Avila, SIMONA) 0039 (Given - Provider: Yvonne Lay, SIMONA) acetaminophen (TYLENOL) tablet 650 mg(Linked Group 2) 650 mg, Oral, EVERY 4 HOURS PRN, Starting on Thu10/12/15 at 1857, Until 10/15/15 at 1902, Pain, - Mild pain (pain scale 1-3) - Maximum dose of acetaminophen is 4000 mg from all sources in 24 hours., Recovery (Recovery-Hospital Unit), Routine 0441 (See Alternative - Provider: Yovany Pineda RN)1143 (See Alternative - Provider: Kadie Avila RN)1833 (See Alternative - Provider: Kadie Avila, SIMONA) 003 (See Alternative - Provider: Yvonne Lay, SIMONA) diphenhydrAMINE (BENADRYL) injection 12.5 mg 12.5 mg, Intravenous, EVERY 1 HOUR PRN, 2 doses, Starting on 10/13/15 at 1548, Until Thu10/15/15 at 1902, Itching, Routine 1555 (Given - Provider: Kadie Avila, RN) ibuprofen (ADVIL;MOTRIN) tablet 600 mg(Linked Group 3) 600 mg, Oral, EVERY 6 HOURS PRN, Starting on Thu10/12/15 at 1857, Until Thu10/15/15 at 1902, Pain, - Do not give if receiving ketorolac. - Mild to moderate pain (pain scale 1-6) - Maximum dose of 3,200 mg from all sources in 24 hours., Recovery (Recovery-Hospital Unit), Routine 0010 (Given - Provider: Yovany Pineda, SIMONA) 1011 (Given - Provider: Kadie Avila, SIMONA) 0931 (Given - Provider: Shadia Velázquez, SIMONA) ibuprofen (ADVIL;MOTRIN) tablet 800 mg(Linked Group 3) 800 mg, Oral, EVERY 8 HOURS PRN, Starting on Thu10/12/15 at 1857, Until Thu10/15/15 at 1902, Pain, - Do not give if receiving ketorolac. - Severe pain (pain scale 7-10). - Maximum dose of 3,200 mg from all sources in 24 hours., Recovery (Recovery-Hospital Unit), Routine 0010 (See Alternative - Provider: Yovany Pineda RN) 1011 (See Alternative - Provider: Kadie Avila, SIMONA) 0931 (See Alternative - Provider: Shadia Velázquez, SIMONA) ondansetron (ZOFRAN) injection 4 mg 4 mg, Intravenous, EVERY 8 HOURS PRN, Starting on Thu10/13/15 at 2342, Until Thu10/15/15 at 1902, Nausea, Routine 0003 (Given - Provider: Camille Reddy RN) Linked Groups Order Group 1: vancomycin 1.5 g in sodium chloride 0.9% 250 mL (CANCELED)Jump to med 1,500 mg, Intravenous, EVERY 8 HOURS, First dose on Thu10/13/15 at 1215, Until Discontinued, Maximum infusion rate is 1 gram/hour. If flushing of the face, neck, upper body, arms, and/or back occurs decrease infusion rate by 50% to reduce the severity of symptoms. This medication may have an associated drug lab level. Please see MAR for scheduled level. Warning Vesicant/Irritant Medication , , Dose rounded per Dose Rounding Policy, Routine, Indication for (Active or Suspected): Bacteremia/Sepsis And Vancomycin, trough (CANCELED) New collection, Timed, [...]
--- OUTSIDE RECORDS SUMMARY | 2024-03-18 15:51 | XMS_ITS | Encounter Summary ---
Author Organization [facility] [place] [address] Care Team Providers Care Waiter/Waitress Informal Name Role Phone Unavailable Primary Care Provider Unavailabl e Encounter Details Date Type Department Care Team ( Contact Info) Description 09/21/2015 Telephone Obstetrics [place] [phone] Itzel Lomas RN Social History Tobacco Use [...] from [place] nurse working on the [facility] [place] . She is with Miya Guillen now and suspects a possible breast infection in left breast . Miya is S/P low transverse on 09/02/15 @ [facility] . Baby was born at 28w 2 d, both Mom and baby were tranferred to [facility]. nurse reports today an area [...] Sleep Center at [address] [place] [phone] Rae Valdivia MD [facility] DR SLEEP [place] [address] documented as of this encounter Visit Diagnoses Not on filedocumented in this encounter
--- OUTSIDE RECORDS SUMMARY | 2024-03-18 15:51 | XMS_ITS | Encounter Summary ---
Author Organization [facility] [place] [address] Care Team Providers Care Signal Constructor Name Role Phone Unavailable Primary Care Provider Unavailabl e Reason for Visit * Auth/Cert Specialty Diagnoses / Procedures Referred By Renzo t Referred To Contact Diagnoses S/P @ 28 WEEK GESTATION Procedures IPI Referral ID Status Reason Start Date Expiration Date Visits Re quested Visits Authorized [id number] 1 1 Encounter Details Date Type Department Care Team (Latest Contact Info) Description 09/03/2015 9:43 AM EDT - 09/05/2015 4:18 PM EDT [place] [address] Regina Whitfield MD [facility] [address] OBSTETR[place] [address] H/O section Discharge Disposition: Home Social History [...] Miya Guillen Patient Age: 25 y.o. Language: Indian Race: White Ethnicity: OR Admit date: 09/03/2015 Discharge date and time: 09/05/2015 Attending Physician: Regina Whitfield MD Discharge Physician: Regina Whitfield MD Referring Hospital: [facility] Follow-up Recommendations for Providers: - patient will have 2 week depression screening phone call - she will see [facility] at 6 weeks for visit Inpatient Provider Contact Information: [facility] SALES APPLICATIONS ENGINEER Department, Discharge Diagnoses (Hospital Problems) and Secondary Diagnoses (Chronic Problems) Active Hospital Problems Diagnosis ??? H/O section Resolved Hospital Problems Diagnosis Date Resolved No resolved problems to display. There are no active non-hospital problems to display for this patient. Operations/Major Procedures: PLTCS on 09/02/15 at [facility] Indication for Admission: postoperative transfer for indication [...] She presented the morning of 09/01 to [facility] with cramping and vaginal bleeding. She was found to be completely dilated on admission, and was given PCN for GBS ppx and betamethasone #1 at 1999.Shortly following that, she underwent amniotomy after [facility] had arrived preemptively for the infanttransfer. Following amniotomy, hand presentation was noted, followed by cord prolapse. She underwent an uncomplicated STAT low-transverse section via pfannenstiel incision under general anesthesia with EBL 600 mL. Infant had Apgars 2, 7 and 8 and was transferred urgently via [facility]. She arrived at [facility] by transfer 12 hours postoperatively. ?? She [...] Studies and Lab Data: Placental pathology at [facility] Discharge Conditions/Prognosis: good Discharge to: [facility] Contraceptive Plans: Wishes to restart combined OCP [...] screening phone call - you will see [facility] at 6 weeks for visit Activity: Nothing [...] Depression Contact Numbers: If you see an piano technician call: [phone] 9 am - 5 pm, after 5 pm If you see a utilization coordinator call: [phone] all hours If you see a family practitioner call: [phone] all hours If you were transferred to our institution for delivery and cannot reach your local OB provider, call the piano technician numbers. Diet: You may resume your regular [...] this in detail. Call your doctor or utilization coordinator for: ??? Fever more than 100.5 ??? [...] follow up appointment. You may call the [facility] at any time for guidance or for answers to questions that come up prior to you follow up appointment. Your [facility] Provider can be reached during office hours at ??? Midwives ??? Obstetricians ??? [facility] Follow-up Clinic AFTER OFFICE HOURS for the piano technician or utilization coordinator exceptional children's teacher Provider electronic signature confirms that discharge instructions were reviewed with the patient. A copy was printed and given to the patient. * Patient Instructions* Kennedy Oseguera MD - 09/05/2015 12:27 PM EDT Images from the original note were not included. Patient Instructions Follow-up: - you will have 2 week depression screening phone call - you will see [facility] at 6 weeks for visit Activity: Nothing [...] Depression Contact Numbers: If you see an piano technician call: [phone] 9 am - 5 pm, after 5 pm If you see a utilization coordinator call: [phone] all hours If you see a family practitioner call: [phone] all hours If you were transferred to our institution for delivery and cannot reach your local OB provider, call the piano technician numbers. Diet: You may resume your regular [...] is doing well without problems. ??? nutrition: pumping ??? Contraception: wishes to restart her COCP at 6 weeks ??? care: Pt will need 2 week depression screen call, and desires 6 week visit with [facility] ??? Dispo: Pt desires discharge to [facility] either today or tomorrow, will follow-up this [...] to wheelchair with 2 assist. Patient visiting in N x2 this shift. Multiple attempts made to educate and encourage mom to start pumping. Mom educated on supply and demand and frequency of pumping necessary. Mom appears uninterested and states I'm so tired. mold shifter RN to continue to encourage. Will continue [...] []Hover for attribution information ? 09/03/15 1600?? Infant General Information?? Infant's Name?? (Amy Merritt)?? Mother's Name?? (Miya Guillen)?? Other Caregivers Name/Relationship?? (Elvia Merritt / EBER)?? Admitted From?? ([facility] -transferred to [facility])?? Infant's Medical Care Provider?? (Shadia Adorno MD)?? Infant Feeding?? Infant Feeding Plan? Breast Pump Needed?? (haleigh symphony pump from [facility])?? Maternal General Information?? Marital Status, Mother of Infant?? single?? 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 Role Relationships/Living Environment?? Lives with?? (6 yr old Dolores- sib)?? Paternal Information?? 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 Self Perception/Coping Stress Tolerance?? Reason For Infant's Admission?? (28 4/7 premature infant)?? Coping Strategies?? (Iglesia's house bochure provided)?? Discharge Planning?? Anticipated Discharge Disposition?? home with parents?? Parents have car seat. They live together in [place]. This infant is their first child together. Record reviewed and patient discussed with multidisciplinary team. No discharge needs identified atthis time. Side Door Man remains available as needed for coordination of care and discharge planning. ?? Fidel Joseph RN Intensive Care Nursery Side Door ManDoor Person of Care Management Phone:# [phone] Beeper: #[id number] Fax: # [phone] documented in this encounter H&P Notes * [...] She presented the morning of 09/01 to [facility] with cramping and vaginal bleeding. She was found to be completely dilated on admission, and was given PCN for GBS ppx and betamethasone #1 at 1999.Shortly following that, she underwent amniotomy after [facility] had arrived preemptively for the infanttransfer. Following amniotomy, hand presentation was noted, followed by cord prolapse. She underwent an uncomplicated STAT low-transverse section via pfannenstiel incision under general anesthesia with EBL 600 mL. had Apgars 2, 7 and 8 and was transferred urgently via [facility]. She arrived at [facility] by transfer 12 hours postoperatively. She feels [...] Past Surgical History Procedure Laterality Date ??? Himrod tooth extraction OB History Para Term AB [...] seen and discussed with Dr. Peck, Attending SALES APPLICATIONS ENGINEER. KENNEDY OSEGUERA MD PGY-3 09/03/2015 Associated attestation [...] Section Delivery) acute pain Problem: (Adult, NICU, Locust, Obstetrics, Pediatric) Goal: Signs and symptoms of listed potential problems will be absent or manageable (reference ( (Adult, NICU, Locust, Obstetrics, Pediatric)) CPG) Outcome: Ongoing (Interventions Implemented [...] Handling Outcome: Ongoing (Interventions Implemented as Appropriate) 09/04/15545 Safety Interventions Safety Precautions/Fall Reduction low bed;family [...] Control Outcome: Ongoing (Interventions Implemented as Appropriate) 09/04/15545 Safety Interventions Isolation Precautions standard precautions maintained [...] EDT TH Visit (TeleHealth) Sleep Center at [facility] [address] [place] [address] Rae Valdivia MD [facility] [place] [address] documented as of this encounter Procedures Procedure Name Priority Date/Time Associated Diagnosis Comments ABO/RH TYPING STAT 09/03/2015 1:08 PM EDT ANTIBODY SCREEN STAT 09/03/2015 1:08 PM EDT TYPE AND SCREEN (MC/CGP/ESPINOZA) STAT 09/03/2015 1:08 PM EDT SCAN, PERIPHERAL BLOOD STAT 09/03/2015 12:49 PM EDT HEMOGRAM STAT 09/03/2015 12:49 PM EDT DIFFERENTIAL, AUTOMATED STAT 09/03/2015 12:49 PM EDT CBC (WITH DIFF) STAT 09/03/2015 12:49 PM EDT documented in this encounter Results * Antibody screen (09/03/2015 1:08 PM EDT) Ab Screen Interp Negative [facility] Expires at 2359 on: 09/06/2015 [facility] Blood specimen (specimen) 09/03/2015 1:08 PM EDT 09/03/2015 1:08 PM EDT Narrative Resulting Agency Comment Spec In Lab Regina Whitfield MD BLOOD BANK LAB ORD ERABLES Performing Organization Address City/[facility]/ZIP Co de Phone Number [facility] [place] [address] * ABO/Rh Typing (09/03/2015 1:08 PM EDT) [facility] ABORH Type B Pos [facility] Blood specimen (specimen) 09/03/2015 1:08 PM EDT 09/03/2015 1:08 PM EDT Narrative Resulting Agency Comment Spec In Lab Regina Whitfield MD BLOOD BANK LAB ORD ERABLES [facility] [place] [address] * Scan, Peripheral Blood (09/03/2015 12:49 PM EDT) [facility] Plat estimate Normal [facility] RBC Morphology Normal [facility] Blood specimen (specimen) 09/03/2015 12:49 PM EDT 09/03/2015 1:02 PM EDT Narrative Resulting Agency Comment Spec In Lab Regina Whitfield MD HEMATOLOGY ORDERAB LES Performing Organization Address City/[facility]/ZIP Co de Phone Number [facility] [place] [address] * (ABNORMAL) Differential, Automated (09/03/2015 12:49 PM EDT) Neutrophil % 90.8 % [facility] Neutrophil Absolute 23.01(H) 1.50 - 6.30 x10(3)/mc L [facility] Lymph % 3.9 % [facility] Lymphocytes Abs 1.0 1.0 - 3.6 x10(3)/ L [facility] Monocyte % 4.8 % [facility] Monocyte Abs 1.2(H) 0.2 - 1.0 x10(3)/ L [facility] Eos % 0.0 % [facility] Eosinophils Abs 0.0 0.0 - 0.5 x10(3)/[facility] Basophil % 0.0 % [facility] Baso Absolute 0.0 0.0 - 0.2 x10(3)/[facility]OR[facility] Immature Gran % 0.50 % [facility] Comment: Immature granulocytes(IG's)percentage and absolute count will include metamyelocytes, myelocytes, and promyelocytes. Blood smears from CBCs yielding IG's will be scanned manually for concordance. If this scan disagrees with the automated IG or if promyelocytes are noted, a manual differential will be performed. Immature Gran Absolute 0.13(H) 0.00 - 0.05 x10(3)/ L [facility] Blood specimen (specimen) 09/03/2015 12:49 PM EDT 09/03/2015 1:02 PM EDT Narrative Resulting Agency Comment Spec In Lab Regina Whitfield MD HEMATOLOGY ORDERAB LES Performing Organization Address [facility]/ZIP Co de Phone Number [facility] [place] [address] * (ABNORMAL) Hemogram (09/03/2015 12:49 PM EDT) White Blood Cell 25.4(H) 4.0 - 10.0 x10(3)/[facility] Red Blood Cell 3.42(L) 3.93 - 5.22 x10(6)/mc L [facility] Hemoglobin 9.2(L) 11.2 - 15.7 gm/dL [facility] Hematocrit 27.4(L) 34.0 - 45.0 % [facility] Mean Cell Volume 80.1 79.0 - 94.0 fL [facility] Mean Cell Hemoglobin 26.9 26.6 - 32.2 pg [facility] Mean Cell Hemoglobin Concentration 33.6 32.0 - 36.5 gm/dL [facility] Platelet 180 145 - 370 x10(3)/[facility] RDW Standard Deviation 37.8 35.0 - 46.0 fL [facility] RDW coefficient of variation 13.0 10.9 - 14.4 % [facility] Mean Platelet Volume 10.6 9.0 - 12.0 fL [facility] Blood specimen (specimen) 09/03/2015 12:49 PM EDT 09/03/2015 1:02 PM EDT Narrative Resulting Agency Comment Spec In Lab Regina Whitfield MD HEMATOLOGY ORDERAB LES Performing Organization Address City/State/[facility] Co de Phone Number [facility] [place] [address] documented in this encounter Visit Diagnoses Diagnosis [...] refused) 0300 (Due - Provider: Harinder Aguilar [facility])0900 (Due - Provider: Harinder Aguilar [facility])1500 (Due - Provider: Harinder Aguilar [facility]) ferrous sulfate EC tablet 325 mg 325 [...] Blanca Sellers RN)2202 (Given - Provider: Courtney Julian, SIMONA) 0844 (Given - Provider: Remedios Jackson, SIMONA)2100 (Not Given - Provider: Comfort Larry RN [...] Courtney Julian RN)1326 (Given - Provider: Remedios Jackson RN) 0040 (Given - Provider: Comfort Larry, SIMONA)1051 (Given - Provider: Naa Salamanca RN) ketorolac (TORADOL) injection 15 mg (CANCELED)(Linked Group 1) 15 mg, Intravenous, EVERY 6 HOURS PRN, 3 doses, Starting on Thu09/03/15 at 1232, Until Thu09/04/15 at 0408, Pain, - Mild to moderate pain (pain scale 1-6). - Stop after 24 hours then start ibuprofen orally., Recovery (Recovery-Hospital Unit), Routine 1551 (Given - Provider: Blanca Sellers RN)2202 (Given - Provider: Courtney Julian RN) oxyCODONE (ROXICODONE) immediate release tablet 5 mg 5 mg, Oral, EVERY 4 HOURS PRN, Starting on Thu09/03/15 at 1232, Until Thu09/05/15 at 1818, Pain, - Moderate to severe pain (pain scale 4-10). - May repeat once in 30 minutes if ineffective., Recovery (Recovery-Hospital Unit), Routine 1323 (Given - Provider: Blanca Sellers RN)2201 (Given - Provider: Courtney Julian, RN) 0410 (Given - Provider: Courtney Julian, RN)0935 (Given - Provider: Remedios Jackson, RN)8704 (Given - Provider: Remedios Jackson, RN) polyethylene glycol (MIRALAX) packet 17 g 17 [...]
--- OUTSIDE RECORDS SUMMARY | 2024-03-18 15:51 | XMS_ITS | Encounter Summary ---
[facility] Organization [facility] [place] [address] Care Team Providers Care Rpg Developer Name Role Phone Unavailable Primary Care Provider Unavailabl e Encounter Details Date Type Department Care Team (Late st Contact Info) Description 10/12/2015 Telephone Obstetrics [place] [address] Itzel Lomas RN Social History [...] patient has been advised to go to [facility] when she is here visiting her baby in NICU to have the breast looked at . She should continue taking the Keflex as directed , apply heat to the breast , massage the area , and [facility]. She voiced understanding and agreement with this plan . documented in this encounter Plan of Treatment Upcoming Encounters Date Type Department Care Team (Late st Contact Info) Description 07/07/2024 4:00 PM EDT TH Visit (TeleHealth) Sleep Center at [facility] [address] [place] [phone] Rae Valdivia MD [facility] DR [place] [address] documented as of this encounter Visit Diagnoses Not on filedocumented in this encounter
--- OUTSIDE RECORDS SUMMARY | 2024-03-18 15:51 | XMS_ITS | Encounter Summary ---
Author Organization [facility] [place] [address] Care Team Providers Care Sandwich Peddler Name Role Phone Unavailable Primary Care Provider Unavailabl e Encounter Details Date Type Department Care Team (Late st Contact Info) Description 10/16/2015 Notes Only Obstetrics [place] [phone] Aparna Olea RN Social History Tobacco Use [...] Prior Authorization (urgent) completed and faxed to [facility] for Linezolid. documented in this encounter Plan of Treatment Upcoming Encounters Date Type Department Care Team (Late st Contact Info) Description 07/07/2024 4:00 PM EDT TH Visit (TeleHealth) Sleep Center at [facility] [address] [place] [phone] Rae Valdivia MD [facility] [place] [address] documented as of this encounter Visit Diagnoses Not on filedocumented in this encounter
--- OUTSIDE RECORDS SUMMARY | 2024-03-18 15:51 | XMS_ITS | Encounter Summary ---
Author Organization [facility] Address [facility] [place] [address] Care Team Providers Care Trolley Coach Driver Name Role Phone Unavailable Primary Care Provider Unavailabl e Reason for Visit * Reason Comments Advice Only * Consultation (Routine) - Closed Specialty Diagnoses / Procedures Referred By Renzo skaggs Referred To Contact Maternal and Medicine / Obstetrics and Gynecology Diagnoses Hx labor @ 33 wks, NSUD @ 37 wks Procedures Hx labor @ 33 wks, NSUD @ 37 wks Ivette Smiley CNM [address] [place] [address] [facility] [address] [place] [address] Referral ID Status Reason Start Date Expiration Date Visits Re quested Visits Authorized [id number] Closed 05/21/2015 05/20/2016 1 1 Encounter Details Date Type Department Care Team (Late st Contact Info) Description 05/28/2015 3:45 PM EDT Office Visit Obstetrics [place] [address] Jose Antonio Yan MD [facility] [address] OBSTET[place]ICS [place] [address] History of labor Social History [...] 4:16 PM EDT Diagnosis/Maternal Medicine Consult Note Kiana Guillen is a 25 y.o. year old [...] Past Surgical History Procedure Laterality Date ??? [place] tooth extraction No family history on file. [...] until 37w4d, when she was induced at [facility] for advanced cervical dilation. She does not meet the strict criteria regarding the use of progesterone for prevention of prior , as she ultimately delivered at term. I recommend ultraousnd here at [place] at 18 weeks gestation for morphology and [...] Antonio YAN MD 05/28/2015 Cc: Ivette Smiley CN[address] [place] [address] , with copy of ultrasound report documented in this encounter Plan of Treatment Upcoming Encounters Date Type Department Care Team (Late st Contact Info) Description 07/07/2024 4:00 PM EDT TH Visit (TeleHealth) Sleep Center at [facility] [address] [place] [address] Rae Valdivia MD [facility] [place] [address] documented as of this encounter Results * [...] 11:02 am) Patient Info ID #: ? [id number] ?: ??[birth year] (25 yrs) Name: ? KIANA GUILLEN ? Visit Date: 06/25/2015 09:15 am Performed By Performed By: ? Amanda CELIS, ??Joyce Attending: ?Teja DIEHL, Abi Seth Referred By: ?IVETTE HARTLEY-EVITA BARCENAS Service(s) Provided ??[facility] - Detailed Morphology - Genetics - [id number] ??UOBTV - Viability - Cervical Length - Transvaginal - ??73717 ??[id number] Indications ??morph; cervical length; E - Coordinates [...] FL/AC: ? 20.6 ??% ? 20 - Est. FW: ? 264 ?? gm [...] Outflow Tract: ?Visualized Aortic Arch: ?Visualized Cardiac Roselle: ? Visualized 3 Vessel View: ?Visualized Diaphragm: [...] 06/25/2015 11:02 am) Patient Info ID #: [id number] : [birth year] (25 yrs) Name: KIANA GUILLEN Visit Date: 06/25/2015 09:15 am Performed By Performed By: Joyce Patel RDMS Attending: Abi Lezama MD Referred By: IVETTE HARTLEY-EVITA [facility] Service(s) Provided [facility] - Detailed Morphology - Genetics - [id number] UOBTV - Viability - Cervical Length - Transvaginal - 91156 [id number] Indications morph; cervical length; E - Coordinates [...] Outflow Tract: Visualized Aortic Arch: Visualized Cardiac Roselle: Visualized 3 Vessel View: Visualized Diaphragm: Visualized [...]
--- OUTSIDE RECORDS SUMMARY | 2024-03-18 15:51 | XMS_ITS | Encounter Summary ---
Author Organization [facility] [address] Care Team Providers Care Briar Cutter Name Role Phone Unavailable Primary Care Provider Unavailabl e Reason for Visit * Reason Onset Date Comments Care 09/26/2015 Encounter Details Date Type Department Care Team (Late st Contact Info) Description 09/26/2015 Telephone Obstetrics [place] [address] Aparna Olea nanny/household manager Care Social History Tobacco Use Types Packs/Day [...] @ 27 weeks, maternal post transfer to [facility]. documented in this encounter Plan of Treatment Upcoming Encounters Date Type Department Care Team (Late st Contact Info) Description 07/07/2024 4:00 PM EDT TH Visit (TeleHealth) Sleep Center at [facility] [address] [place] [phone] Rae Valdivia MD [facility] [place] [address] documented as of this encounter Visit Diagnoses Not on filedocumented in this encounter
--- OUTSIDE RECORDS SUMMARY | 2024-03-18 15:51 | XMS_ITS | Encounter Summary ---
Author Organization [facility] [place] [address] Care Team Providers Care Core Carrier Name Role Phone Unavailable Primary Care Provider Unavailabl e Reason for Visit * Reason Comments Ultrasound Ultrasound Finding Encounter Details Date Type Department Care Team (Latest Contact Info) Description 06/25/2015 10:00 AM EDT Procedure visit Obstetrics [place] [address] Abi Lezama MD [facility] [address] OBSTETRICS [place] [address] History of labor, current , second trimester [...] EDT TH Visit (TeleHealth) Sleep Center at [facility] [address] [place] [address] Rae Valdivia MD [facility] [place] [address] documented as of this encounter Visit Diagnoses Diagnosis History of labor, current , second trimester documented in this encounter
--- OUTSIDE RECORDS SUMMARY | 2024-03-18 15:51 | XMS_ITS | Encounter Summary ---
Author Organization [facility] Address [facility] [place] [address] Care Team Providers Care Pay Per Click Strategist Name Role Phone Unavailable Primary Care Provider Unavailabl e Encounter Details Date Type Department Care Team (Latest Contact Info) Description 07/24/2015 3:45 PM EDT - 07/24/2015 11:59 PM EDT Hospital Encounter [place] [phone] Abi Lezama MD [facility] OB[place]ET[place] [address] History of labor, current , second trimester [...] EDT TH Visit (TeleHealth) Sleep Center at [facility] [address] [place] [address] Rae Valdivia MD [facility] [place] [address] (work) documented as of this encounter Procedures Procedure [...] 04:38 pm) Patient Info ID #: ? [id number] ?: ??[birth year] (25 yrs) Name: ? MIYA Fam EL ? Visit Date: 07/24/2015 04:20 pm Performed By Performed By: ? Susana Portillo RDMS Attending: ?Teja DIEHL, Abi Seth Referred By: ?IVETTE BARCENAS Service(s) Provided ??UOBLIM - Real - Position Only ( 1 or more fetuses) - ?? 75450 ??[id number] ??UOBTV - Viability - Cervical Length - Transvaginal - ??65572 ??[id number] Indications ??history of ; E - Coordinates [...] 07/24/2015 04:38 pm) Patient Info ID #: [id number] : [birth year] (25 yrs) Name: MIYA GUILLEN Visit Date: 07/24/2015 04:20 pm Performed By Performed By: Susana Portillo RDMS Attending: Abi Lezama MD Referred By: IVETTE [facility] Service(s) Provided UOBLIM - Real - Position Only ( 1 or more fetuses) - [id number] UOBTV - Viability - Cervical Length - Transvaginal - 89017 [id number] Indications history of ; E - Coordinates [...]
[2024-03-19 13:35] LABS: HSV 1 DNA Result Negative (Negative); HSV 2 DNA Result Negative (Negative)
== END 2024-03-18 15:26 | disposition home or self-care (01) ==
LOC: LBN 15:25
PROVIDERS: PCP Nurse Practitioner Family; Visit Provider Nurse Practitioner Family
DX: T14.8XXA Other injury of unspecified body region, initial encounter (principal); N76.6 Ulceration of vulva; N89.8 Other specified noninflammatory disorders of vagina
CPT/HCPCS: 87529; 87070; 87205; 87480; 87510; 87660

== ENCOUNTER 2024-04-11 11:30 | Outpatient (CLI) | payer MEDICAID, SELFPAY ==
--- NOTE | 2024-04-11 | DI.RAD_ITS ---
Exam(s) XR CHEST 2V PA LATERAL EXAM: XR CHEST 2V PA LATERAL CLINICAL HISTORY: Cough x4 weeks, R05.9; h/o asthma TECHNIQUE: 2D digital imaging was performed of the chest. Two images were obtained. PA and lateral views were obtained. COMPARISON: CR XR CHEST 2V PA LATERAL from 05/19/2023 FINDINGS: MEDIASTINUM: Normal. HEART: Normal. PULMONARY VASCULATURE: Normal. LUNGS: Clear. PLEURAL SPACE: No pleural effusion or pneumothorax. BONE:Within normal limits for the patient's age. Portion of the patient's anterior cervical disc fus ion is seen at the top of the film. OTHER FINDINGS:Normal. IMPRESSION: No acute pulmonary findings. DATA REPOSITORY: RADIATION DOSE DELIVERED:
== END 2024-04-11 11:50 ==
PROVIDERS: PCP Nurse Practitioner Family; Visit Provider Nurse Practitioner Family
DX: R05.9 Cough, unspecified (principal)
CPT/HCPCS: 71046

== ENCOUNTER 2024-05-02 18:26 | Emergency (ER) | payer MEDICAID, SELFPAY ==
[2024-05-02 18:29] VITALS: BP 126/90; PULSE 105; RESP 20; TEMP 37.2; O2SAT 99
--- NOTE | 2024-05-02 18:55 | ED.GENADUL_ITS ---
Discharge Plan Disposition Patient Disposition: Home Condition: Stable Discharge Details Clinical Impression: Neck pain Primary Care Provider: Hieu Katz ED Provider: Kennedy Jin Home Meds and New Rx's Prescriptions: Continued metoprolol succinate 25 mg tablet extended release 24 hr 50 mg PO DAILY naproxen 500 mg tablet 500 mg PO PRN Mirena 21 mcg/24hr (up to 8 yrs) 52 mg intrauterine device 1 device intrauterine ONCE Rx Instructions: as a single dose Tezspire 210 mg/1.91 mL (110 mg/mL) pen injector 210 mg subcut Q4W Qty: 1.91 12RF Trelegy Ellipta 200-62.5-25 mcg blister with device See Rx Instructions .ROUTE .COMPLEX Qty: 60 12RF Dose Instruction: INHALE BY MOUTH 1 PUFF DAILY Rx Instructions: INHALE BY MOUTH 1 PUFF DAILY eletriptan 20 mg tablet See Rx Instructions PO .COMPLEX Rx Instructions: take 1 tab at onset of headache; if no relief may repeat 1 tab after at least 2 hrs; max = 4 tabs/24 hr PO cyclobenzaprine 5 mg tablet 5 mg PO TID PRN hydroxyzine HCl 25 mg tablet 25 mg PO QHS PRN (Reason: anxiety) Qty: 30 0RF escitalopram oxalate 20 mg tablet 20 mg PO DAILY Qty: 90 4RF Rx Instructions: take 0.5 tab po qd x 7 days, then increase to 20 mg po qd if tolerated/needed albuterol sulfate 1.25 mg/3 mL solution for nebulization 1.25 mg inhalation QID PRN (Reason: shortness of breath or wheezing) Qty: 90 6RF albuterol sulfate [Ventolin HFA] 90 mcg/actuation HFA aerosol inhaler 2 puff inhalation Q6H PRN (Reason: shortness of breath or wheezing) Qty: 8.5 12RF montelukast 10 mg tablet 10 mg PO DAILY Qty: 90 4RF methylphenidate HCl 10 mg tablet 10 mg PO DAILY Patient Comments: 04/26/24- Rx'd by Neuro/pps Aimovig Autoinjector 70 mg/mL auto-injector 140 mg subcut QMONTH Patient Comments: 04/26/24-dose increase per Neuro/pps Discharge Instructions Instructions: High Potassium Diet, Neck Pain ED Additional Instructions: You were seen in the emergency department for your neck pain radiating up to her occiput, these are often where you are muscles attached to your skull and can be seen with tension headache and muscle spasm, your trapezius muscles are also palpably tense. You have no evidence of ear infection, neck stiffness of meningitis, other infectious etiology, you are neurologically intact. We did perform significant headache medicines as well as nausea medicines with some good effect, he had mildly low potassium, please eat a high potassium diet going forward, follow-up with your neurologist, take your normal migraine medications and return for any severe increase in symptoms especially with fever, inability to move your neck at all. Referrals: Hieu Katz NP [Primary Care Provider] - HPI General Date/Time Provider Initiated Documentation: 05/02/24 18:37 . HPI Narrative: 34 year-old female presents to ED today by POV/ambulating with her boyfriend with a chief complaint of headache, neck pain, nausea, vertigo, pain in ears with onset for the past 3 weeks- patient underwent an anterior cervical fusion months ago, saw her neurologist last week who said there was swelling in general in her neck and occiput. Patient states the pain goes up her lateral neck and to occiput. Quality described as just all over pain, no radiation to vomiting, visual changes, endorses tingling in her fingers, denies fever, endorses chills, denies cervical ROM limit that is new. Severity is described as severe. Palliating factors include nothing specific attempted. Provoking factors include nothing specific. Patient not anticoagulated. Related Data Home Medications ?Medication ?Instructions ?Recorded ?Confirmed albuterol sulfate 1.25 mg/3 mL 1.25 mg (3 mL) inhalation QID PRN 01/26/23 05/02/24 solution for nebulization shortness of breath or wheezing #90 mL naproxen 500 mg tablet 500 mg PO PRN 03/31/23 05/02/24 eletriptan 20 mg tablet See Rx Instructions PO .COMPLEX 05/19/23 05/02/24 hydroxyzine HCl 25 mg tablet 25 mg PO QHS PRN anxiety #30 tabs 10/10/23 05/02/24 escitalopram oxalate 20 mg tablet 20 mg PO DAILY #90 tabs 10/24/23 05/02/24 cyclobenzaprine 5 mg tablet 5 mg PO TID PRN 11/12/23 05/02/24 levonorgestrel 21 mcg/24 hr (up to 1 device intrauterine ONCE 12/10/23 05/02/24 8 years) 52 mg intrauterine device (Mirena) albuterol sulfate 90 mcg/actuation 2 puff inhalation Q6H PRN 02/23/24 05/02/24 aerosol inhaler (Ventolin HFA) shortness of breath or wheezing #8.5 grams fluticasone fur. 200 mcg-umeclid See Rx Instructions .Route 03/18/24 05/02/24 62.5 mcg-vilant 25 mcg .COMPLEX #60 ea inhalat.powder (Trelegy Ellipta) metoprolol succinate 25 mg 50 mg PO DAILY 03/18/24 05/02/24 tablet,extended release 24 hr tezepelumab-ekko 210 mg/1.91 mL 210 mg (1.91 mL) subcut Q4W #1.91 03/18/24 05/02/24 (110 mg/mL) subcutaneous pen mL injector (Tezspire) montelukast 10 mg tablet 10 mg PO DAILY #90 tabs 04/04/24 05/02/24 erenumab-aooe 70 mg/mL 140 mg subcut QMONTH 04/26/24 05/02/24 subcutaneous auto-injector (Aimovig Autoinjector) methylphenidate HCl 10 mg tablet 10 mg PO DAILY 04/26/24 05/02/24 Previous Rx's ?Medication ?Instructions ?Recorded albuterol sulfate 1.25 mg/3 mL 1.25 mg (3 mL) inhalation QID PRN 01/26/23 solution for nebulization shortness of breath or wheezing #90 mL hydroxyzine HCl 25 mg tablet 25 mg PO QHS PRN anxiety #30 tabs 10/10/23 escitalopram oxalate 20 mg tablet 20 mg PO DAILY #90 tabs 10/24/23 albuterol sulfate 90 mcg/actuation 2 puff inhalation Q6H PRN 02/23/24 aerosol inhaler (Ventolin HFA) shortness of breath or wheezing #8.5 grams fluticasone fur. 200 mcg-umeclid See Rx Instructions .Route 03/18/24 62.5 mcg-vilant 25 mcg .COMPLEX #60 ea inhalat.powder (Trelegy Ellipta) tezepelumab-ekko 210 mg/1.91 mL 210 mg (1.91 mL) subcut Q4W #1.91 03/18/24 (110 mg/mL) subcutaneous pen mL injector (Tezspire) montelukast 10 mg tablet 10 mg PO DAILY #90 tabs 04/04/24 Allergies Allergy/AdvReac Type Severity Reaction Status Date / Time banana Allergy Unknown Skin Rash Verified 05/02/24 18:36 house dust Allergy Unknown Itching Unverified 05/02/24 18:36 peach Allergy Swelling/Ed Verified 05/02/24 18:36 [place] vancomycin Allergy Swelling/Ed Verified 05/02/24 18:36 [place] adhesive tape AdvReac Intermediate Itching Verified 05/02/24 18:36 budesonide (From Symbicort) AdvReac Skin Rash Verified 05/02/24 18:36 formoterol (From Symbicort) AdvReac Skin Rash Verified 05/02/24 18:36 General Stated Complaint: Nk/Back Pain ROXANNE: 3 Review of Systems All systems reviewed & are unremarkable except as noted in HPI and below Exam Narrative Exam Narrative: GENERAL APPEARANCE: Well-nourished, non-toxic, awake and alert, atraumatic, no acute distress. SKIN: Warm, pink, dry, intact, without rashes/lesions/ulcerations. HEAD: Normocephalic, atraumatic, normal hair distribution for gender/age. EYES: Normal conjunctiva, no exudates on lids/lashes. ENT: Nares patent, no circumoral cyanosis, no facial swelling, TMs clear bilaterally, no mastoid tenderness NECK: Supple, trachea midline, painless cervical ROM. LUNGS/CHEST: Non-labored respirations, normal A/P diameter, symmetrical expansion, no chest wall deformity HEART (CV/PV): No peripheral edema, no JVD. ABDOMEN: Soft, non-distended, no guarding. MSK: Normal ROM, no swelling/deformity to bilateral UEs or LEs, moving all extremities without weakness, no cyanosis, spine midline without tenderness, normal curvature, mild possible muscle tension in the trapezius as well as lateral neck on both sides, no midline crepitus or step-offs, no nuchal rigidity NEURO: Mental Status AAOx4 - alert to person, place, time, events No facial droop, no forehead involvement. Motor: No focal weakness - strength 5/5 in bilateral UEs and LEs, proximal and distal, symmetric. Sensory: sensation intact to light touch globally. Gait normal: patient ambulated without ataxia into ED room. PSYCH: euthymic, cooperative, pleasant, appropriate speech Course Vital Signs Vital signs: Vital Signs Temperature 37.2 C 05/02/24 18: Pulse 105 H 05/02/24 18: Respiratory Rate 20 05/02/24 18: Blood Pressure 126/90 05/02/24 18: Pulse Oximetry 99 05/02/24 18:29 Temperature 37.2 C 05/02/24 18: Pulse 105 H 05/02/24 18: Respiratory Rate 20 05/02/24 18: Blood Pressure 126/90 05/02/24 18: Blood Pressure Position Sitting 05/02/24 18:29 Pulse Oximetry 99 05/02/24 18:29 Oxygen Delivery Method Room Air 05/02/24 18: Oxygen Flow Rate 0 05/02/24 18:29 Medical Decision Making This dictation utilizes [id number] dictation software and may contain unedited grammatical errors. 34 year-old female presents to ED today by POV/ambulating with her boyfriend with a chief complaint of headache, neck pain, nausea, vertigo, pain in ears with onset for the past 3 weeks- patient underwent an anterior cervical fusion months ago, saw her neurologist last week who said there was swelling in general in her neck and occiput. Patient states the pain goes up her lateral neck and to occiput. Quality described as just all over pain, no radiation to vomiting, visual changes, endorses tingling in her fingers, denies fever, endorses chills, denies cervical ROM limit that is new. Severity is described as severe. Palliating factors include nothing specific attempted. Provoking factors include nothing specific. Patients' medical history: History of neck surgery, lower back pain, hypertension, paresthesias of hands, neck pain, POTS, anxiety, migraine with aura, asthma. Family and social history: denies illicit drug use, denies ETOH. Pertinent exam findings / vital signs include no nuchal rigidity, TMs clear bilaterally, no mastoid bogginess, neuro intact strength 5/5 in hands/arms, palpable muscle tension in bilateral neck and trapezius muscles. Differential / pathologies of concern include migraine syndrome, chronic neck pain post-operatively, not meningismus, anxiety. Diagnostic studies of: -CBC, CMP, CRP/ESR. -CBC benign -inflammatory markers negative -CMP shows mild hypokalemia, ordered PO repletion, recommend high potassium diet Interventions of: -migraine cocktail ordered, fioricet + tylenol to ~1g, 15mg IVP ketorlac, 10mg IVP dexamethasone, 25mg IVP diphenhydramine, 1L IVF NS, patient refused sumatriptan and reglan. ED Course/Assessment/Plan: 34-year-old female has history of anterior cervical fusion with neck pain rating up into the occiput and scalenes distribution with palpable muscle tension in the trapezius muscles, I recommend that she perform tension headache medicines at home, her laboratory workup is negative and she has no nuchal rigidity. I do not suspect any acute infectious etiology, this level of chronic pain may be normal after anterior cervical fusion and this may be due to her history of migraine with aura. I recommend she follow-up with her primary care provider, I discussed that the risk of radiation exposure from images outweighs the benefit at this point she responded moderately well to medicines, I did give her 1 dose of p.o. potassium and recommend high potassium diet, strict return criteria for further neck stiffness with fever, neurologic changes. Findings not consistent with vasculitis, meningismus, AOM, mastoiditis, deep space infection. Disposition of Neck Pain. Patient verbalized understanding of the plan and return to ED criteria and engaged in shared decision making. Medical Records Medical records reviewed: Yes I reviewed the patient's medical records. Lab Data Lab results reviewed: Yes I reviewed the patient's lab results. Labs: Laboratory Tests Range/Units 05/02/24 19:50 WBC (4.4-10.8) 10^3/uL 9.47 RBC (3.93-5.22) 10^6/uL 5.23 H Hgb (11.2-15.7) g/dL 13.0 Hct (36.0-46.0) % 41.0 MCV (80-95) fL 78 L MCH (27.0-33.0) pg 24.9 L MCHC (32.0-36.0) % 31.7 L RDW (11.7-14.6) % 15.0 H Plt Count (130-400) 10^3/uL 296 MPV (8.0-11.0) fL 9.9 Immature Gran % % 0.5 Neutrophils % % 66.9 Lymphocytes % % 26.5 Monocytes % % 5.4 Eosinophils % % 0.4 Basophils % % 0.3 Nucleated RBC % (0.0-0.3) % 0.0 Absolute Neutrophils (1.2-6.7) 10^3/uL 6.33 Absolute Lymphocytes (1.2-3.4) 10^3/uL 2.51 Absolute Monocytes (0.1-0.8) 10^3/uL 0.51 Absolute Eosinophils (0.0-0.7) 10^3/uL 0.04 Absolute Basophils (0.0-0.2) 10^3/uL 0.03 ESR (0-20) mm/hr 5 Sodium (136-145) mmol/L 142 Potassium (3.5-5.1) mmol/L 3.2 L Chloride (98-107) mmol/L 104 Carbon Dioxide (21.0-32.0) mmol/L 27.9 Anion Gap (3-11) mmol/L 10.1 BUN (7-18) mg/dL 7 Creatinine (0.55-1.02) mg/dL 1.0 Est GFR (CKD-EPI 2020) (mL/min/1.73m2) 75.81 Glucose (74-106) mg/dL 110 H Calcium (8.5-10.1) mg/dL 8.9 Total Bilirubin (0.2-1.0) mg/dL 0.2 AST (15-37) U/L 12 L ALT (14-59) U/L 22 Alkaline Phosphatase (46-116) U/L 74 C-Reactive Protein (<or=0.5) mg/dL < 0.50 Total Protein (6.4-8.2) g/dL 7.5 Albumin (3.4-5.0) g/dL 3.9 Quality:SDOH Health Related Social Needs: Health related social needs details n/a PFSH All Active Problems (Updated 05/02/24 @ 20:50 by TRISHA Martinez) Neck pain (Acute) Genital labial ulcer (Acute) Macromastia (Acute) H/O neck surgery (Acute) Elevated liver function tests (Acute) Lower back pain (Acute) Dyspnea (Acute) Hypertension (Chronic) Paresthesia (Acute) hands, feet, lips Neck pain (Acute) Sleep apnea (Acute) POTS (postural orthostatic tachycardia syndrome) (Acute) Anemia (Chronic) Anxiety (Chronic) Insomnia (Acute) Migraine headache with aura (Acute) Asthma (Chronic) Medical History Abnormal Pap smear of cervix Oct 2023: NIL/HRHPV+ -->colp benign - no bx Oct 2022: ASCUS/HPV+ -->[place] benign - no bx Sep 2021: LSIL/HPV+ -->[place] 11/11/21: CIN1 Feb 2021: LSIL/HPV+ () Jan 2020: LSIL/HPV neg July 2014: normal/neg May 2013: ASCUS/HPV- Presence of intrauterine contraceptive device (IUD) Mirena IUD placed 11/12/23 Liletta IUD placed 11/11/21 - expelled by 12/24/21 Hx of viral pneumonia 01/23/23: Per [facility] ED. -hb Contraception management IUD fell out several months pp, tried continuous cycle OCPs but had prolonged light bleeding. Tried cycling every 3mo. Tried another IUD 11/12/23 Pneumonia Kidney stones Snoring Seasonal allergies Bronchitis H/O pre-term labor (04/17/15) 37, 28 & 35wk deliveries Tachycardia Surgical History S/P colonoscopy (~01/24/19) Hx of wisdom tooth extraction History of section 28 weeks. Cord prolapse. 2 layer closure. LTCS Family History Mother Mental disorder depresssion anxietty bipolar Asthma Depression Father Hypertension Hyperlipidemia Sister Depression Brother No problems noted. Daughter Asthma Depression Daughter No problems noted. Daughter No problems noted. Maternal Grandfather Diabetes Stroke Paternal Grandfather Diabetes Maternal Grandmother , 70 No problems noted. 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 [employer] Pets and animals: Yes Pets and animals: dog(s) Sexually active: No Do you think of yourself as: straight/heterosexual Current gender identity: female What is your relationship status?: living with partner How often do you talk on the phone with friends or family?: once per week How often do you get together with friends or relatives?: once per week Do you belong to any clubs or organized social groups?: no Panel score (0-1 are the most socially isolated patients): 1 What type of physical activity do you participate in: none Frequency: does not exercise Erin/Evangelical: Confucianist Special erin needs: No Seatbelt use: always Helmet use: Yes Helmet use: always Drive intox or ride w/intox chain saw driver: No Do you feel safe at home: Yes Do you feel safe in your relationship?: Yes History History 3 Para 3 Hx # Term Pregnancies 1 Multiple births Hx # Pregnancies 2 Ectopic pregnancies AB induced Hx Number of Living Children 3 AB spontaneous Past Pregnancies Del. Date GA/Weeks # Preg Succ Route Wgt Sex Labor Lgth Anesth esia Location [facility] 06/23/09 37 No vaginal Female [facility] 09/03/15 28 No Female [facility] cord accident 09/05/21 35 No Yes vaginal Female 14hr [facility] Raimundo prado Delivery Date: 06/23/09 Last Updated by: Peggy Steen M.D. went into labor at 32- 33 weeks, stayed at [facility] until 35wks, came home then had water broken at [facility] due to dilation of 5 cm at 37 weeks. Delivery Date: 09/03/15 Last Updated by: Peggy Steen M.D. Pt went into labor, had a cord prolapse which led to emergent c- section Delivery Date: 09/05/21 Last Updated by: Peggy Steen MD PTL&D, [facility]
[2024-05-02 20:09] LABS: Abs Immature Grans 0.05 10^3/uL (0.0-0.06); Absolute Basophil Count 0.03 10^3/uL (0.0-0.2); Absolute Eosinophil Count 0.04 10^3/uL (0.0-0.7); Absolute Lymphocyte Count 2.51 10^3/uL (1.2-3.4); Absolute Monocyte Count 0.51 10^3/uL (0.1-0.8); Absolute Neutrophil Count 6.33 10^3/uL (1.2-6.7); Basophils % 0.3 %; Eosinophils % 0.4 %; Immature Grans % 0.5 %; Lymphocytes % 26.5 %; MCH 24.9 pg (27.0-33.0); MCHC 31.7 % (32.0-36.0); MCV 78 fL (80-95); MPV 9.9 fL (8.0-11.0); Monocytes % 5.4 %; Neutrophils % 66.9 %; Platelet Count 296 10^3/uL (130-400); RBC 5.23 10^6/uL (3.93-5.22); RDW-SD 42.7 fL; WBC 9.47 10^3/uL (4.4-10.8)
[2024-05-02 20:11] LABS: ESR 5 mm/hr (0-20)
[2024-05-02 20:22] LABS: ALT 22 U/L (14-59); AST 12 U/L (15-37); Albumin 3.9 g/dL (3.4-5.0); Alkaline Phosphatase 74 U/L (46-116); Anion Gap 10.1 mmol/L (3-11); BUN 7 mg/dL (7-18); Bilirubin, Total 0.2 mg/dL (0.2-1.0); CO2 27.9 mmol/L (21.0-32.0); Calcium 8.9 mg/dL (8.5-10.1); Chloride 104 mmol/L (98-107); Estimated GFR 75.81 (mL/min/1.73m2); Glucose 110 mg/dL (74-106); Potassium 3.2 mmol/L (3.5-5.1); Sodium 142 mmol/L (136-145); Total Protein 7.5 g/dL (6.4-8.2)
[2024-05-02] MEDS: ACETAMINOPHEN 500 MG/50 ML BAG 200 MG IVPB (20:24)
[2024-05-02] MEDS: Normal Saline 1,000 ML 1000 ML IV (20:24)
[2024-05-02] MEDS: diphenhydrAMINE 50 MG/ML VIAL 25 MG IVP (20:25)
[2024-05-02] MEDS: Dexamethasone 10 MG/ML VIAL IVP (20:25)
[2024-05-02] MEDS: Acetaminophen 80 MG CHEW 160 MG PO (20:25)
[2024-05-02] MEDS: Ketorolac 15 MG/ML VIAL IVP (20:25)
[2024-05-02] MEDS: Butalbital/Acetaminophen/Caffeine 50/325/40 TAB PO (20:26)
[2024-05-02 20:37] LABS: C-Reactive Protein < 0.50 mg/dL (<or=0.5)
[2024-05-02] MEDS: Potassium Chloride Liquid 20 MEQ PKT 40 MEQ PO (20:50)
[2024-05-02 21:11] VITALS: BP 124/85; PULSE 93; RESP 16; O2SAT 98
[2024-05-04 11:25] LABS: Lyme Ab w Rflx to Lyme Confirm Negative (Negative)
[2024-05-06 00:20] LABS: Anaplasma phagocytophilum Negative (Negative); B. miyamotoi PCR Negative (Negative); Babesia divergens/MO-1 Negative (Negative); Babesia duncani Negative (Negative); Babesia microti Negative (Negative); Ehrlichia chaffeensis Negative (Negative); Ehrlichia ewingii/canis Negative (Negative); Ehrlichia muris eauclairensis Negative (Negative)
== END 2024-05-02 21:11 | disposition home or self-care (01) ==
PROVIDERS: Emergency Provider Physician Assistant; PCP Nurse Practitioner Family
DX: M54.2 Cervicalgia (principal); R11.0 Nausea
CPT/HCPCS: 80053; 85652; 87798; 96365; 96375; 99284; 85025; 86140; 86618; 99283; J0131; J1100; J1200; J1885

== ENCOUNTER 2024-06-27 09:55 | Emergency (ER) | payer MEDICAID, SELFPAY ==
--- NOTE | 2024-06-27 10:00 | RT.EKG_ITS ---
APPROVED REPORT Exam: Resting ECG Reason for Exam: CP Patient Location: E HR:97 bpm ECG Measurements Heart Rate 97 AXIS AZ 123 P 7 QRSd 74 QRS -6 QT 340 T 27 QTc 433 Conclusion Sinus rhythm 97 normal axis no stemi
[2024-06-27 10:05] VITALS: BP 132/90; PULSE 104; RESP 20; TEMP 36.9; O2SAT 97
[2024-06-27 10:08] VITALS: BP 132/90; PULSE 104; RESP 20; TEMP 36.9; O2SAT 97
--- NOTE | 2024-06-27 10:28 | W.ED.GENAD ---
Discharge Plan Disposition Patient Disposition: Home Condition: Stable Discharge Details Clinical Impression: URI (upper respiratory infection), Cough Primary Care Provider: Hieu Kazt ED Provider: Jolie Goodrich Home Meds and New Rx's Prescriptions: New promethazine 6.25 mg/5 mL syrup 12.5 mg PO Q6H PRN (Reason: cough) Qty: 120 0RF benzonatate 100 mg capsule 100 mg PO TID PRN (Reason: cough) Qty: 30 0RF prednisone 20 mg tablet 40 mg PO DAILY 4 Days Qty: 8 0RF No Action metoprolol succinate 25 mg tablet extended release 24 hr 50 mg PO DAILY naproxen 500 mg tablet 500 mg PO PRN Mirena 21 mcg/24hr (up to 8 yrs) 52 mg intrauterine device 1 device intrauterine ONCE Rx Instructions: as a single dose Tezspire 210 mg/1.91 mL (110 mg/mL) pen injector 210 mg subcut Q4W Qty: 1.91 12RF pregabalin 50 mg capsule 50 mg PO BID baclofen 10 mg tablet 10 mg PO TID PRN estradiol 0.01 % (0.1 mg/gram) cream 0.25 g vaginal DAILY Qty: 42.5 4RF Rx Instructions: Massage pea-sized amount around the labial edges and clitoral soliman, any area that has been developing the sores. Use nightly x2wks, then decrease use to 2-3x/week. eletriptan 20 mg tablet See Rx Instructions PO .COMPLEX Rx Instructions: take 1 tab at onset of headache; if no relief may repeat 1 tab after at least 2 hrs; max = 4 tabs/24 hr PO cyclobenzaprine 5 mg tablet 5 mg PO TID PRN escitalopram oxalate 20 mg tablet 20 mg PO DAILY Qty: 90 4RF Rx Instructions: take 0.5 tab po qd x 7 days, then increase to 20 mg po qd if tolerated/needed albuterol sulfate 1.25 mg/3 mL solution for nebulization 1.25 mg inhalation QID PRN (Reason: shortness of breath or wheezing) Qty: 90 6RF albuterol sulfate [Ventolin HFA] 90 mcg/actuation HFA aerosol inhaler 2 puff inhalation Q6H PRN (Reason: shortness of breath or wheezing) Qty: 8.5 12RF montelukast 10 mg tablet 10 mg PO DAILY Qty: 90 4RF methylphenidate HCl 10 mg tablet 10 mg PO DAILY Patient Comments: 04/26/24- Rx'd by Neuro/pps Aimovig Autoinjector 70 mg/mL auto-injector 140 mg subcut QMONTH Patient Comments: 04/26/24-dose increase per Neuro/pps Trelegy Ellipta 200-62.5-25 mcg blister with device See Rx Instructions .ROUTE .COMPLEX Qty: 60 12RF Dose Instruction: INHALE BY MOUTH 1 PUFF DAILY Rx Instructions: INHALE BY MOUTH 1 PUFF DAILY pantoprazole 40 mg tablet,delayed release (DR/EC) 40 mg PO DAILY Qty: 90 4RF Discharge Instructions Instructions: Upper Respiratory Infection ED Additional Instructions: Chest x-ray does not reveal a pneumonia. No indication for antibiotics. Continue albuterol and steroids as prescribed. You are also given some medication for your cough. Please make sure to drink lots of water follow-up with your primary care for reevaluation Discharge Data Discharge Date/Time-TO BE ENTERED AT DEPARTURE: 06/27/24 11:24 HPI General Date/Time Provider Initiated Documentation: 06/27/24 10:23. Limitations to Documentation: no limitations. Information obtained by: patient. HPI Narrative: 44-year-old female with past medical history of asthma, POTS, hypertension presents for evaluation of cough. She reports a wet cough, nonproductive. Fever at home highest temp measured 103. Body aches, nausea and poor appetite. Symptoms have been ongoing for the last 4 days. She reports some chest tightness as well. Has not tried any medications for relief. Related Data Home Medications ?Medication ?Instructions ?Recorded ?Confirmed albuterol sulfate 1.25 mg/3 mL 1.25 mg (3 mL) inhalation QID PRN 01/26/23 05/12/24 solution for nebulization shortness of breath or wheezing #90 mL naproxen 500 mg tablet 500 mg PO PRN 03/31/23 06/27/24 eletriptan 20 mg tablet See Rx Instructions PO .COMPLEX 05/19/23 06/27/24 escitalopram oxalate 20 mg tablet 20 mg PO DAILY #90 tabs 10/24/23 06/27/24 cyclobenzaprine 5 mg tablet 5 mg PO TID PRN 11/12/23 06/27/24 levonorgestrel 21 mcg/24 hr (up to 1 device intrauterine ONCE 12/10/23 06/27/24 8 years) 52 mg intrauterine device (Mirena) albuterol sulfate 90 mcg/actuation 2 puff inhalation Q6H PRN 02/23/24 06/27/24 aerosol inhaler (Ventolin HFA) shortness of breath or wheezing #8.5 grams metoprolol succinate 25 mg 50 mg PO DAILY 03/18/24 06/27/24 tablet,extended release 24 hr tezepelumab-ekko 210 mg/1.91 mL 210 mg (1.91 mL) subcut Q4W #1.91 03/18/24 06/27/24 (110 mg/mL) subcutaneous pen mL injector (Tezspire) montelukast 10 mg tablet 10 mg PO DAILY #90 tabs 04/04/24 06/27/24 erenumab-aooe 70 mg/mL 140 mg subcut QMONTH 04/26/24 06/27/24 subcutaneous auto-injector (Aimovig Autoinjector) methylphenidate HCl 10 mg tablet 10 mg PO DAILY 04/26/24 06/27/24 fluticasone fur. 200 mcg-umeclid See Rx Instructions .Route 05/10/24 06/27/24 62.5 mcg-vilant 25 mcg .COMPLEX #60 ea inhalat.powder (Trelegy Ellipta) pantoprazole 40 mg tablet,delayed 40 mg PO DAILY #90 tabs 05/10/24 06/27/24 release baclofen 10 mg tablet 10 mg PO TID PRN 05/12/24 06/27/24 estradiol 0.01% (0.1 mg/gram) 0.25 g vaginal DAILY #42.5 grams 05/12/24 06/27/24 vaginal cream pregabalin 50 mg capsule 50 mg PO BID 05/12/24 06/27/24 benzonatate 100 mg capsule 100 mg PO TID PRN cough #30 caps 06/27/24 prednisone 20 mg tablet 40 mg (2 x 20 mg) PO DAILY 4 days 06/27/24 #8 tabs promethazine 6.25 mg/5 mL oral 12.5 mg (10 mL) PO Q6H PRN cough 05/05/25 syrup #120 mL Previous Rx's ?Medication ?Instructions ?Recorded albuterol sulfate 1.25 mg/3 mL 1.25 mg (3 mL) inhalation QID PRN 01/26/23 solution for nebulization shortness of breath or wheezing #90 mL escitalopram oxalate 20 mg tablet 20 mg PO DAILY #90 tabs 10/24/23 albuterol sulfate 90 mcg/actuation 2 puff inhalation Q6H PRN 02/23/24 aerosol inhaler (Ventolin HFA) shortness of breath or wheezing #8.5 grams tezepelumab-ekko 210 mg/1.91 mL 210 mg (1.91 mL) subcut Q4W #1.91 03/18/24 (110 mg/mL) subcutaneous pen mL injector (Tezspire) montelukast 10 mg tablet 10 mg PO DAILY #90 tabs 04/04/24 fluticasone fur. 200 mcg-umeclid See Rx Instructions .Route 05/10/24 62.5 mcg-vilant 25 mcg .COMPLEX #60 ea inhalat.powder (Trelegy Ellipta) pantoprazole 40 mg tablet,delayed 40 mg PO DAILY #90 tabs 05/10/24 release estradiol 0.01% (0.1 mg/gram) 0.25 g vaginal DAILY #42.5 grams 05/12/24 vaginal cream benzonatate 100 mg capsule 100 mg PO TID PRN cough #30 caps 06/27/24 prednisone 20 mg tablet 40 mg (2 x 20 mg) PO DAILY 4 days 06/27/24 #8 tabs promethazine 6.25 mg/5 mL oral 12.5 mg (10 mL) PO Q6H PRN cough 06/27/24 syrup #120 mL Allergies Allergy/AdvReac Type Severity Reaction Status Date / Time banana Allergy Unknown Skin Rash Verified 06/27/24 10:09 house dust Allergy Unknown Itching Unverified 06/27/24 10:09 peach Allergy Swelling/Ed Verified 06/27/24 10:09 [place] vancomycin Allergy Swelling/Ed Verified 06/27/24 10:09 [place] adhesive tape AdvReac Intermediate Itching Verified 06/27/24 10:09 budesonide (From Symbicort) AdvReac Skin Rash Verified 06/27/24 10:09 formoterol (From Symbicort) AdvReac Skin Rash Verified 06/27/24 10:09 General Stated Complaint: RespSymp ROXANNE: 3 Exam Narrative Exam Narrative: Review of Systems: All systems reviewed & are unremarkable except as noted in HPI and below Well-developed, no acute distress Afebrile NCAT PERRL, normal conjunctiva bilateral TMs without erythema bulging Posterior oropharynx without tonsillar enlargement or exudate No significant cervical adenopathy RRR Unlabored respiratory effort no hypoxia, decreased air movement, frequent coughing, Course Vital Signs Vital signs: Vital Signs Temperature 36.9 C 06/27/24 10:05 Pulse 104 H 06/27/24 10:05 Respiratory Rate 20 06/27/24 10:05 Blood Pressure 132/90 06/27/24 10:05 Pulse Oximetry 97 06/27/24 10:05 Temperature 36.9 C 06/27/24 10:08 Pulse 104 H 06/27/24 10:08 Respiratory Rate 20 06/27/24 10:08 Blood Pressure 132/90 06/27/24 10:08 Blood Pressure Position Sitting 06/27/24 10:08 Pulse Oximetry 97 06/27/24 10:08 Oxygen Delivery Method Room Air 06/27/24 10:08 Oxygen Flow Rate 0 06/27/24 10:08 Medical Decision Making Urgent evaluation of URI symptoms for the last 4 days. Patient is overall well-appearing, nontoxic. I do not suspect an overwhelming bacterial infection. Initial differential includes asthma exacerbation, viral URI I do not suspect that her chest pressure is secondary to a cardiac etiology. EKG was obtained and independently interpreted: Sinus 97 normal axis no STEMI. Will give chest x-ray, breathing treatment and reassess. Chest x-ray without focal consolidation. No indication for antibiotics. Discharged with steroids and albuterol, in addition to medicines for symptomatic care. Follow-up with PCP as needed. Quality:SDOH Health Related Social Needs: Health related social needs details n/a PFSH All Active Problems (Updated 06/27/24 @ 10:44 by Jolie Goodrich MD) Cough (Acute) URI (upper respiratory infection) (Acute) Genital labial ulcer (Acute) Macromastia (Acute) H/O neck surgery (Acute) Elevated liver function tests (Acute) Lower back pain (Acute) Dyspnea (Acute) Hypertension (Chronic) Paresthesia (Acute) hands, feet, lips Neck pain (Acute) Sleep apnea (Acute) POTS (postural orthostatic tachycardia syndrome) (Acute) Anemia (Chronic) Anxiety (Chronic) Insomnia (Acute) Migraine headache with aura (Acute) Asthma (Chronic) Medical History (Updated 06/27/24 @ 10:44 by Jolie Goodrich MD) Abnormal Pap smear of cervix Oct 2023: NIL/HRHPV+ -->colp benign - no bx Oct 2022: ASCUS/HPV+ -->[place] benign - no bx Sep 2021: LSIL/HPV+ -->[place] 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 -hb Contraception management IUD fell out several months pp, tried continuous cycle OCPs but had prolonged light bleeding. Tried cycling every 3mo. Tried another IUD 11/12/23 Pneumonia Kidney stones Snoring Seasonal allergies Bronchitis H/O pre-term labor (04/17/15) 37, 28 & 35wk deliveries Tachycardia Surgical History (Updated 02/05/24 @ 11:29 by Hieu Lombardi NP) S/P colonoscopy (~01/24/19) Hx of wisdom tooth extraction History of section 28 weeks. Cord prolapse. 2 layer closure. LTCS Family History Mother Mental disorder depresssion anxietty bipolar Asthma Depression Father Hypertension Hyperlipidemia Sister Depression Brother No problems noted. Daughter Asthma Depression Daughter No problems noted. Daughter No problems noted. Maternal Grandfather Diabetes Stroke Paternal Grandfather Diabetes Maternal Grandmother , 70 No problems noted. 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 [employer] Pets and animals: Yes Pets and animals: dog(s) Sexually active: No Do you think of yourself as: straight/heterosexual Current gender identity: female What is your relationship status?: living with partner How often do you talk on the phone with friends or family?: once per week How often do you get together with friends or relatives?: once per week Do you belong to any clubs or organized social groups?: no Panel score (0-1 are the most socially isolated patients): 1 What type of physical activity do you participate in: none Frequency: does not exercise Erin/Denominational: Religious Special erin needs: No Seatbelt use: always Helmet use: Yes Helmet use: always Drive intox or ride w/intox equipment driver: No Do you feel safe at home: Yes Do you feel safe in your relationship?: Yes History History 3 Para 3 Hx # Term Pregnancies 1 Multiple births Hx # Pregnancies 2 Ectopic pregnancies AB induced Hx Number of Living Children 3 AB spontaneous Past Pregnancies Del. Date GA/Weeks # Preg Succ Route Wgt Sex Labor Lgth Anesthesia Location Prov Complic 06/23/09 37 No vaginal Female [facility] 09/03/15 28 No Female [facility] cord accident 09/05/21 35 No Yes vaginal Female [facility] Dr. Steen Delivery Date: 06/23/09 Last Updated by: Peggy Steen M.D. went into labor at 32- 33 weeks, stayed at [facility] until 35wks, came home then had water broken at [facility] due to dilation of 5 cm at 37 weeks. Delivery Date: 09/03/15 Last Updated by: Peggy Steen M.D. Pt went into labor, had a cord prolapse which led to emergent Delivery Date: 09/05/21 Last Updated by: Peggy Steen MD PTL&D, [facility]
--- NOTE | 2024-06-27 10:40 | DI.RAD_ITS ---
Exam(s) XR CHEST 2V PA LATERAL EXAM: XR CHEST 2V PA LATERAL CLINICAL HISTORY: COUGH. TECHNIQUE: 2D digital imaging was performed. COMPARISON: CR XR CHEST 2V PA LATERAL from 04/11/2024 FINDINGS: 2 views: Heart size is normal. The mediastinum is not widened. Lungs are clear. No infiltrates nor pleural effusions. IMPRESSION: No acute pulmonary findings. DATA REPOSITORY: RADIATION DOSE DELIVERED:
[2024-06-27] MEDS: Albuterol/Ipratropium 3 ML UPD VIAL UPD (11:11)
[2024-06-27] MEDS: predniSONE 20 MG TAB 40 MG PO (11:12)
[2024-06-27 11:23] VITALS: BP 132/90; PULSE 104; RESP 20; TEMP 36.9; O2SAT 97
== END 2024-06-27 11:24 | disposition home or self-care (01) ==
PROVIDERS: Emergency Provider Emergency Medicine; PCP Nurse Practitioner Family
DX: J06.9 Acute upper respiratory infection, unspecified (principal); J45.909 Unspecified asthma, uncomplicated; I10 Essential (primary) hypertension
CPT/HCPCS: 93005; 94640; 99284; 71046; 93010; J7512; J7620

== ENCOUNTER 2024-10-18 23:56 | Emergency (ER) | payer MEDICAID, SELFPAY ==
[2024-10-18 23:58] VITALS: BP 136/86; PULSE 80; RESP 16; TEMP 36.3; O2SAT 99
--- NOTE | 2024-10-19 | RT.EKG_ITS ---
APPROVED REPORT Exam: Resting ECG Reason for Exam: dizzy Patient Location: E HR:69 bpm ECG Measurements Heart Rate 69 AXIS TN 141 P 61 QRSd 89 QRS 66 QT 418 T 55 QTc 450 Conclusion Sinus rhythm...normal P axis, V-rate 60- [address] segment or T wave abnormalities to suggest occlusive MS
--- NOTE | 2024-10-19 | DI.CT_ITS ---
Exam(s) CT ABDOMEN PELVIS W EXAM: CT ABDOMEN PELVIS W CLINICAL HISTORY: diffuse abdominal pain TECHNIQUE: Imaging Protocol: Axial computed tomography images with coronal and sagittal reformatted images were created and reviewed. CONTRAST MATERIAL: Intravenous: Omnipaque 350 Contrast volume:75 mL Oral: No COMPARISON: CT CT ABDOMEN PELVIS WO from 06/01/[address] CHEST PE ABD PELVIS W from 07/14/2023 FINDINGS: ABDOMEN: Lung Bases: There is mild atelectasis in the lung bases. Liver: There is diffuse decreased attenuation suggesting hepatic steatosis. The liver is mildly enlarged. No measurable mass. Portal, Superior Mesenteric, and Splenic Veins: Unremarkable. Gallbladder and Biliary Tract: No radiodense calculus or dilation. Pancreas: Normal density, no abnormal calcifications or inflammatory process. Spleen: Normal. Adrenals: No masses seen. Kidneys: Normal size, contour and axis. No radiodense stones or obstructive uropathy. No masses seen. Abdominal Aorta: Abdominal portion non-dilated. Bowel: There is mild thickening of the wall of the ascending, transverse and descending colon. There is no evidence of bowel obstruction. There is a moderate amount of stool throughout the colon. There is no pneumatosis. Appendix is unremarkable. Peritoneal Cavity: No ascites, collection or mesenteric inflammatory response. No free air. Lymph Nodes: Within normal limits. Bones: Within normal limits for the patient's age. There is mild sclerosis seen around the sacroiliac joints. Which may represent sacroiliitis. Soft Tissues: Unremarkable. PELVIS: Bladder: The urinary bladder is incompletely distended limiting evaluation. No gross abnormality is identified. Reproductive Organs: There is an IUD in place within the uterus. There is a corpus luteal cyst on the right ovary measuring 1.5 cm. There is a trace amount of free fluid in the cul-de-sac which is likely physiologic. Lymph Nodes: Within normal limits. Bones: Within normal limits for the patient's age. IMPRESSION: 1. Mild wall thickening in the colon which may represent an inflammatory or infectious colitis. Please correlate clinically. 2. Small right ovarian corpus luteal cyst. There is a trace amount of fluid in the pelvis which is likely physiologic. 3. The preliminary [facility] report was reviewed. RADIATION DOSE DELIVERED: 486.9mGy.cm Total DLP DATA REPOSITORY: All CT scans at this facility are submitted to the National Radiology Data Registry (NRDR) Dose Index Registry (DIR) with the [employer] (A[employer]). RADIATION OPTIMIZATION: All CT scans at this facility use at least one of these dose optimization techniques: automated exposure control; mA and/or kV adjustment per patient size (includes targeted exams where dose is matched to clinical indication); or iterative reconstruction.
[2024-10-19 00:04] VITALS: BP 136/86; PULSE 80; RESP 16; TEMP 36.3; O2SAT 99
[2024-10-19 00:16] LABS: Glucose Negative (Negative)
[2024-10-19] MEDS: Ketorolac 15 MG/ML VIAL IVP (00:19)
[2024-10-19 00:23] LABS: C & S Indicated? No; RBC 0-2 HPF (0-2)
[2024-10-19] MEDS: Omnipaque 350 MG/ML 100 ML BTL IJ (00:26)
[2024-10-19] MEDS: Normal Saline - Diluent 50 ML VIAL IJ (00:27)
[2024-10-19] MEDS: ACETAMINOPHEN 1,000 MG/100 ML BAG 400 MG IVPB (00:46)
[2024-10-19 00:54] LABS: Abs Immature Grans 0.02 10^3/uL (0.0-0.06); HCT 41.9 % (36.0-46.0); HGB 13.4 g/dL (11.2-15.7); Immature Grans % 0.3 %; MCH 24.6 pg (27.0-33.0); MCHC 32.0 % (32.0-36.0); MCV 77 fL (80-95); MPV 10.4 fL (8.0-11.0); Platelet Count 280 10^3/uL (130-400); RBC 5.45 10^6/uL (3.93-5.22); RDW 14.9 % (11.7-14.6); RDW-SD 40.9 fL; WBC 7.61 10^3/uL (4.4-10.8)
--- NOTE | 2024-10-19 01:13 | ED.GENADUL_ITS ---
Discharge Plan Disposition Patient Disposition: Home Condition: Good Discharge Details Clinical Impression: Colitis, Hypokalemia Primary Care Provider: Hieu Katz ED Provider: Gavi Stafford Home Meds and New Rx's Prescriptions: Continued metoprolol succinate 25 mg tablet extended release 24 hr 50 mg PO DAILY naproxen 500 mg tablet 500 mg PO PRN Emgality Pen 120 mg/mL pen injector 120 mg subcut QMONTH mecobalamin (vitamin B12) 1,000 mcg tablet,chewable 1,000 mcg PO DAILY Mirena 21 mcg/24hr (up to 8 yrs) 52 mg intrauterine device 1 device intrauterine ONCE Rx Instructions: as a single dose baclofen 10 mg tablet 10 mg PO TID PRN estradiol 0.01 % (0.1 mg/gram) cream 0.25 g vaginal DAILY Qty: 42.5 4RF Rx Instructions: Massage pea-sized amount around the labial edges and clitoral soliman, any area that has been developing the sores. Use nightly x2wks, then decrease use to 2- 3x/week. trazodone 100 mg tablet 100 mg PO QHS PRN (Reason: sleep) Qty: 90 0RF buspirone 10 mg tablet 10 mg PO TID PRN (Reason: anxiety) Qty: 90 0RF ondansetron 4 mg tablet,disintegrating 4 mg PO Q6H PRN (Reason: nausea and vomiting) Qty: 60 0RF eletriptan 20 mg tablet See Rx Instructions PO .COMPLEX Rx Instructions: take 1 tab at onset of headache; if no relief may repeat 1 tab after at least 2 hrs; max = 4 tabs/24 hr PO escitalopram oxalate 20 mg tablet 20 mg PO DAILY Qty: 90 4RF Rx Instructions: take 0.5 tab po qd x 7 days, then increase to 20 mg po qd if tolerated/needed albuterol sulfate 1.25 mg/3 mL solution for nebulization 1.25 mg inhalation QID PRN (Reason: shortness of breath or wheezing) Qty: 90 6RF albuterol sulfate [Ventolin HFA] 90 mcg/actuation HFA aerosol inhaler 2 puff inhalation Q6H PRN (Reason: shortness of breath or wheezing) Qty: 8.5 12RF montelukast 10 mg tablet 10 mg PO DAILY Qty: 90 4RF methylphenidate HCl 10 mg tablet 10 mg PO DAILY Patient Comments: 04/26/24- Rx'd by Neuro/pps Barbara Jeffreyta 200-62.5-25 mcg blister with device See Rx Instructions .ROUTE .COMPLEX Qty: 60 12RF Dose Instruction: INHALE BY MOUTH 1 PUFF DAILY Rx Instructions: INHALE BY MOUTH 1 PUFF DAILY pantoprazole 40 mg tablet,delayed release (DR/EC) 40 mg PO DAILY Qty: 90 4RF lorazepam 0.5 mg tablet 0.5 mg PO DAILY PRN (Reason: anxiety) Qty: 10 0RF ipratropium-albuterol 0.5 mg-3 mg(2.5 mg base)/3 mL solution for nebulization 3 ml inhalation QID PRN (Reason: wheezing) Qty: 180 0RF Tezspire 210 mg/1.91 mL (110 mg/mL) pen injector 210 mg subcut Q4W Qty: 1.91 12RF Held Zepbound 2.5 mg/0.5 mL pen injector 2.5 mg subcut QWEEK Qty: 2 0RF Hold Instructions: Resume on 10/26/24. Do not start this until you are not having diarrhea or vomiting Rx Instructions: for 4 weeks Discharge Instructions Instructions: Hypokalemia, Colitis (DC) Additional Instructions: Call your primary care doctor in the morning to schedule an appointment for within the next 72 hours to followup on your visit here. They may want to recheck your potassium level which is low here in the emergency department; this can be a dangerous condition if untreated and can lead to cardiac arrhythmias and . Return to the emergency department for new or worsening symptoms including inability to keep down fluids, palpitations, weakness, feeling like you are going to pass out, or if you have any other concerns. HPI General Mode of arrival: ambulatory . Date/Time Provider Initiated Documentation: 10/19/24 00:06 . Limitations to Documentation: no limitations . Information obtained by: patient . HPI Narrative: 34yo F with hx asthma, migraine, anxiety, POTS, presenting for abdominal pain. Was in her usual state of health today. Woke up about an hour prior to arrival with diffuse crampy abdominal with associated nasuea. [place] generally unwell, sweaty, and like she might pass out. Nausea and abdominal pain persist, other symptoms have resolved. No vomiting. Has been vomiting intermittently (nonbloody nonbilious) for the past several weeks (not all today) and seen her PCP for this, currently attributing to anxiety/stress. Has zofran at home for nausea; did take one before she arrived. Last BM was this morning, small/brown/formed. No diarrhea or constipation. No dysuria or hematuria. No fevers, chills, rash, or chest pain. Otherwise in her usual state of health. Related Data Home Medications ?Medication ?Instructions ?Recorded ?Confirmed albuterol sulfate 1.25 mg/3 mL 1.25 mg (3 mL) inhalati on QID PRN 01/26/23 10/19/24 solution for nebulization shortness of breath or wheez ing #90 mL naproxen 500 mg tablet 500 mg PO PRN 03/31/2310/19 eletriptan 20 mg tablet See Rx Instructions PO .COMP AGAPITO 05/19/23 10/19/24 escitalopram oxalate 20 mg tablet 20 mg PO DAILY #90 t abs 10/24/23 10/19/24 levonorgestrel (Mirena) 1 device intrauterine ONCE 1 10/19/24 albuterol sulfate 90 mcg/actuation 2 puff inhalation Q 6H PRN 02/23/24 10/19/24 aerosol inhaler (Ventolin HFA) shortness of breath or wheezing #8.5 grams metoprolol succinate 25 mg 50 mg PO DAILY 03/18/24 tablet,extended release 24 hr montelukast 10 mg tablet 10 mg PO DAILY #90 tabs 03/2610/19/24 methylphenidate HCl 10 mg tablet 10 mg PO DAILY 10/19/24 fluticasone fur. 200 mcg-umeclid See Rx Instructions . Route 05/10/24 10/19/24 62.5 mcg-vilant 25 mcg .COMPLEX #60 ea inhalat.powder (Trelegy Ellipta) pantoprazole 40 mg tablet,delayed 40 mg PO DAILY #90 t abs 05/10/24 10/19/24 release baclofen 10 mg tablet 10 mg PO TID PRN 05/12/24 estradiol 0.01% (0.1 mg/gram) 0.25 g vaginal DAILY #42 .5 grams 05/12/24 10/19/24 vaginal cream lorazepam 0.5 mg tablet 0.5 mg PO DAILY PRN anxiety #10 07/14/24 10/19/24 tabs galcanezumab-gnlm 120 mg/mL 120 mg subcut QMONTH 08/1310/19/24 subcutaneous pen injector (Emgality Pen) mecobalamin (vitamin B12) 1,000 1,000 mcg PO DAILY 10/19/24 mcg chewable tablet ipratropium 0.5 mg-albuterol 3 mg 3 ml inhalation QID PRN wheezing 09/06/24 10/19/24 (2.5 mg base)/3 mL nebulization #180 mL soln tezepelumab-ekko 210 mg/1.91 mL 210 mg (1.91 mL) subcu t Q4W #1.91 09/15/24 10/19/24 (110 mg/mL) subcutaneous pen mL injector (Tezspire) tirzepatide (weight loss) 2.5 2.5 mg (0.5 mL) subcut Q WEEK #2 mL 10/07/24 10/19/24 mg/0.5 mL subcutaneous pen injector (Zepbound) Held on 10/19/24. Instructions: Resume on 10/26/24. Do not start this until you are not having diarrhea or vomiting buspirone 10 mg tablet 10 mg PO TID PRN anxiety #90 tabs 10/17/24 10/19/24 ondansetron 4 mg disintegrating 4 mg PO Q6H PRN nausea and 10/17/24 10/19/24 tablet vomiting #60 tabs trazodone 100 mg tablet 100 mg PO QHS PRN sleep #90 tabs 10/17/24 10/19/24 Previous Rx's ?Medication ?Instructions ?Recorded albuterol sulfate 1.25 mg/3 mL 1.25 mg (3 mL) inhalati on QID PRN 01/26/23 solution for nebulization shortness of breath or wheez ing #90 mL escitalopram oxalate 20 mg tablet 20 mg PO DAILY #90 t abs 10/24/23 albuterol sulfate 90 mcg/actuation 2 puff inhalation Q 6H PRN 02/23/24 aerosol inhaler (Ventolin HFA) shortness of breath or wheezing #8.5 grams montelukast 10 mg tablet 10 mg PO DAILY #90 tabs 03/26 fluticasone fur. 200 mcg-umeclid See Rx Instructions . Route 05/10/24 62.5 mcg-vilant 25 mcg .COMPLEX #60 ea inhalat.powder (Trelegy Ellipta) pantoprazole 40 mg tablet,delayed 40 mg PO DAILY #90 t abs 05/10/24 release estradiol 0.01% (0.1 mg/gram) 0.25 g vaginal DAILY #42 .5 grams 05/12/24 vaginal cream lorazepam 0.5 mg tablet 0.5 mg PO DAILY PRN anxiety #10 07/14/24 tabs ipratropium 0.5 mg-albuterol 3 mg 3 ml inhalation QID PRN wheezing 09/06/24 (2.5 mg base)/3 mL nebulization #180 mL soln tezepelumab-ekko 210 mg/1.91 mL 210 mg (1.91 mL) subcu t Q4W #1.91 09/15/24 (110 mg/mL) subcutaneous pen mL injector (Tezspire) tirzepatide (weight loss) 2.5 2.5 mg (0.5 mL) subcut Q WEEK #2 mL 10/07/24 mg/0.5 mL subcutaneous pen injector (Zepbound) Held on 10/19/24. Instructions: Resume on 10/26/24. Do not start this until you are not having diarrhea or vomiting buspirone 10 mg tablet 10 mg PO TID PRN anxiety #90 tabs 10/17/24 ondansetron 4 mg disintegrating 4 mg PO Q6H PRN nausea and 10/17/24 tablet vomiting #60 tabs trazodone 100 mg tablet 100 mg PO QHS PRN sleep #90 tabs 10/17/24 Allergies Allergy/AdvReac Type Severity Reaction Status Date / Time banana Allergy Unknown Skin Rash Verified 10/19/24 00:01 house dust Allergy Unknown Itching Unverified 10/19/24 00:01 peach Allergy Swelling/Ed Verified 10/19/24 00:01 [place] vancomycin Allergy Swelling/Ed Verified 10/19/24 00:01 [place] adhesive tape AdvReac Intermediate Itching Verified 10/19/24 00:01 budesonide (From Symbicort) AdvReac Skin Rash Verified 10/19/24 00:01 formoterol (From Symbicort) AdvReac Skin Rash Verified 10/19/24 00:01 General Stated Complaint: Abd Prob ROXANNE: 3 Review of Systems Narrative: see HPI Exam Narrative Exam Narrative: General: Alert, well appearing, well nourished, in no acute distress. Head: Normocephalic, atraumatic Neck: Trachea midline, ?Neck supple. ENT: ?MMM.? No oropharygeal lesions or exudate. Cardiac: ?RRR, no murmurs appreciated Resp: No respiratory distress. CTAB. Abd: ?Soft, non-distended, mild diffuse tenderness. No focal tenderness. No rebound or guarding. Negative Goldman's. : ?No suprapubic tenderness. No CVA tenderness. Extremities: ?No deformities.? No peripheral edema. Neurologic: GCS 15. ? Moves all extremities freely against gravity Course Vital Signs Vital signs: Vital Signs Temperature 36.3 C L 10/18/24 23:58 Pulse 80 10/18/24 23:58 Respiratory Rate 16 10/18/24 23:58 Blood Pressure 136/86 10/18/24 23:58 Pulse Oximetry 99 10/18/24 23:58 Temperature 36.3 C L 10/19/24 00:04 Temperature Source Tympanic 10/19/24 00:04 Pulse 80 10/19/24 00:04 Respiratory Rate 16 10/19/24 00:04 Blood Pressure 136/86 10/19/24 00:04 Blood Pressure Position Sitting 10/19/24 00:04 Pulse Oximetry 99 10/19/24 00:04 Oxygen Delivery Method Room Air 10/19/24 00:04 Oxygen Flow Rate 0 10/19/24 00:04 Pain Level 9 10/19/24 00:04 Lab/Test Results Lab/Test Results: Laboratory Tests Range/Units 10/19/24 10/19/24 00:06 00:48 WBC (4.4-10.8) 10^3/uL 7.61 RBC (3.93-5.22) 10^6/uL 5.45 H Hgb (11.2-15.7) g/dL 13.4 Hct (36.0-46.0) % 41.9 MCV (80-95) fL 77 L MCH (27.0-33.0) pg 24.6 L MCHC (32.0-36.0) % 32.0 RDW (11.7-14.6) % 14.9 H Plt Count (130-400) 10^3/uL 280 MPV (8.0-11.0) fL 10.4 Immature Gran % % 0.3 Neutrophils % % 67.7 Lymphocytes % % 25.5 Monocytes % % 5.0 Eosinophils % % 1.2 Basophils % % 0.3 Nucleated RBC % (0.0-0.3) % 0.0 Absolute Neutrophils (1.2-6.7) 10^3/uL 5.16 Absolute Lymphocytes (1.2-3.4) 10^3/uL 1.94 Absolute Monocytes (0.1-0.8) 10^3/uL 0.38 Absolute Eosinophils (0.0-0.7) 10^3/uL 0.09 Absolute Basophils (0.0-0.2) 10^3/uL 0.02 Urine Color (Yellow) Yellow Urine Clarity (Clear) Sl Cloudy Urine pH (5-8) 6.0 Ur Specific [place] (1.005-1.025) 1.015 Urine Protein (Neg-Trace) mg/dL Trace Urine Ketones (Negative) mg/dL Negative Urine Blood (Negative) Trace-intact H Urine Nitrite (Negative) Negative Urine Bilirubin (Negative) Negative Urine Urobilinogen (Up to 0.2) mg/dL 1.0 H Ur Leukocyte Esterase (Negative) Small H Urine RBC (0-2) HPF 0-2 Urine WBC (0-5) HPF 3-5 Ur Epithelial Cells (Negative) HPF Few Urine Crystals (Negative) HPF Negative Urine Bacteria (Negative) HPF Moderate Urine Casts (Negative) LPF Negative Urine Mucus (Negative) Trace Ur Culture Indicated? No Urine Glucose (Negative) mg/dL Negative POC- Test(urine) Negative Medical Decision Making 34yo F with hx asthma, migraine, anxiety, POTS, presenting for severe diffuse crampy abdominal pain onset about an hour prior to arrival. Assoicated nausea, no vomiting. Vital signs reassuring on arrival, abdomen soft and mildly TTP with no rebound or guarding. No lower abdominal pain to suggest ovarian/pelvic pathology (torsion, ectopic, etc). LMP about one month ago. Will give additional zofran here for nausua, tylenol & toradol for pain while awaiting results of workup. -EKG NSR, acceptable intervals, no ST segment or T wave abnormalities to suggest occlusive MD. -Labs reviewed as below, CBC ressuring with no leukocytosis or anemia, CMP with hypokalemia at 3.0 and no other actionable abnormalities, Mg [place], lipase not suggestive of pancreatitis, initial troponin negative, UA not infected, upreg negative. -PO potassium replacement ordered- will also start IV replacement in case she is unable to tolerate PO. Her EKG has no concerning sequel of hypokalemia and this does appear to be somewhat chronic based on [facility] lab review though certainly not helped by recent vomiting. -CT abd pelvis independently reviewed; no obstruction on my view, radiology read suggestive of acute colitis. No indication of appendicitis, cholecystitis, bowel obstruction. On reassessment patient reports pain has much improved. Abdomen remains minimally tender, no peritoneal signs. Low suspicion for ischemic or invasive infectious colitis. She would like to go home. Will PO challenge. Repeat troponin negative; would not further pursue ACS. PO challenged and tolerated well, abdomen remains non-tender. She again requests discharged home. About half of her IV potassium has infused. Given that she was able to take and keep down the oral potassium, she has had no vomiting or diarrhea here, and her EKG is reassuring I do not feel strongly that she needs to complete her infusion. Will discharge home. Discharge instructions and return precautions were reviewed with patient who verbalized understanding. All questions were answered and she is in full agreement with the plan. IMPRESSION: 1. Collapsing right ovarian corpus luteum with fluid in the right adnexal region and in the cul-de-sac of Sai. 2. Mural thickening through the cecum, ascending colon, and transverse colon with mild prominence of the small pericolic vascular structures. Acute segmental colitis is suspected. Infectious, inflammatory, or ischemic etiologies could produce this appearance. An artifactual appearance created by underdistention is considered less likely but not excluded. 3. Fluid throughout the proximal colon suggesting impending diarrhea. 4. Probable fatty infiltration of the liver, difficult to confidently diagnose by CT imaging after administration of intravenous contrast. Lab Data Lab results reviewed: Yes I reviewed the patient's lab results. Labs: Laboratory Tests Range/Units 10/19/24 10/19/24 00:06 00:48 WBC (4.4-10.8) 10^3/uL 7.61 RBC (3.93-5.22) 10^6/uL 5.45 H Hgb (11.2-15.7) g/dL 13.4 Hct (36.0-46.0) % 41.9 MCV (80-95) fL 77 L MCH (27.0-33.0) pg 24.6 L MCHC (32.0-36.0) % 32.0 RDW (11.7-14.6) % 14.9 H Plt Count (130-400) 10^3/uL 280 MPV (8.0-11.0) fL 10.4 Immature Gran % % 0.3 Neutrophils % % 67.7 Lymphocytes % % 25.5 Monocytes % % 5.0 Eosinophils % % 1.2 Basophils % % 0.3 Nucleated RBC % (0.0-0.3) % 0.0 Absolute Neutrophils (1.2-6.7) 10^3/uL 5.16 Absolute Lymphocytes (1.2-3.4) 10^3/uL 1.94 Absolute Monocytes (0.1-0.8) 10^3/uL 0.38 Absolute Eosinophils (0.0-0.7) 10^3/uL 0.09 Absolute Basophils (0.0-0.2) 10^3/uL 0.02 Sodium (136-145) mmol/L 141 Potassium (3.5-5.1) mmol/L 3.0 L Chloride (98-107) mmol/L 102 Carbon Dioxide (21.0-32.0) mmol/L 28.1 Anion Gap (3-11) mmol/L 10.9 BUN (7-18) mg/dL 5 L Creatinine (0.55-1.02) mg/dL 1.0 Est GFR (CKD-EPI 2020) (mL/min/1.73m2) 75.81 Glucose (74-106) mg/dL 110 H Calcium (8.5-10.1) mg/dL 9.9 Magnesium (1.8-2.4) mg/dL 2.3 Total Bilirubin (0.2-1.0) mg/dL 0.6 AST (15-37) U/L 28 ALT (14-59) U/L 40 Alkaline Phosphatase (46-116) U/L 80 Troponin I (<or=51) ng/L < 4 Total Protein (6.4-8.2) g/dL 9.0 H Albumin (3.4-5.0) g/dL 5.1 H Lipase (<78) U/L 27 Urine Color (Yellow) Yellow Urine Clarity (Clear) Sl Cloudy Urine pH (5-8) 6.0 Ur Specific [place] (1.005-1.025) 1.015 Urine Protein (Neg-Trace) mg/dL Trace Urine Ketones (Negative) mg/dL Negative Urine Blood (Negative) Trace-intact H Urine Nitrite (Negative) Negative Urine Bilirubin (Negative) Negative Urine Urobilinogen (Up to 0.2) mg/dL 1.0 H Ur Leukocyte Esterase (Negative) Small H Urine RBC (0-2) HPF 0-2 Urine WBC (0-5) HPF 3-5 Ur Epithelial Cells (Negative) HPF Few Urine Crystals (Negative) HPF Negative Urine Bacteria (Negative) HPF Moderate Urine Casts (Negative) LPF Negative Urine Mucus (Negative) Trace Ur Culture Indicated? No Urine Glucose (Negative) mg/dL Negative Quality:SDOH Health Related Social Needs: Health related social needs details n/a PFSH All Active Problems (Updated 10/19/24 @ 02:29 by Gavi Stafford MD) Hypokalemia (Acute) Colitis (Acute) Acute stress reaction (Acute) Genital labial ulcer (Acute) Macromastia (Acute) H/O neck surgery (Acute) Elevated liver function tests (Acute) Lower back pain (Acute) Dyspnea (Acute) Hypertension (Chronic) Paresthesia (Acute) hands, feet, lips Neck pain (Acute) Sleep apnea (Acute) POTS (postural orthostatic tachycardia syndrome) (Acute) Anemia (Chronic) Anxiety (Chronic) Insomnia (Acute) Migraine headache with aura (Acute) Asthma (Chronic) Medical History Abnormal Pap smear of cervix Oct 2023: NIL/HRHPV+ -->colp benign - no bx Oct 2022: ASCUS/HPV+ -->[place] benign - no bx Sep 2021: LSIL/HPV+ -->[place] 11/11/21: CIN1 Feb 2021: LSIL/HPV+ () Jan 2020: LSIL/HPV neg July 2014: normal/neg May 2013: ASCUS/HPV- Presence of intrauterine contraceptive device (IUD) Mirena IUD placed 11/12/23 Liletta IUD placed 11/11/21 - expelled by 12/24/21 Hx of viral pneumonia 01/23/23: Per [facility] ED. -hb Contraception management IUD fell out several months pp, tried continuous cycle OCPs but had prolonged light bleeding. Tried cycling every 3mo. Tried another IUD 11/12/23 Pneumonia Kidney stones Snoring Seasonal allergies Bronchitis H/O pre-term labor (04/17/15) 37, 28 & 35wk deliveries Tachycardia Surgical History S/P colonoscopy (~01/24/19) Hx of wisdom tooth extraction History of section 28 weeks. Cord prolapse. 2 layer closure. LTCS Family History Mother Mental disorder depresssion anxietty bipolar Asthma Depression Father Hypertension Hyperlipidemia Sister Depression Brother No problems noted. Daughter Asthma Depression Daughter No problems noted. Daughter No problems noted. Maternal Grandfather Diabetes Stroke Paternal Grandfather Diabetes Maternal Grandmother , 70 No problems noted. Paternal Grandmother Diabetes Other Personal history of malignant neoplasm Social History Smoking/Tobacco Use Status: Never Second Hand Exposure: Yes Smoking risk assessment performed?: Yes Alcohol Intake: current Alcohol Intake frequency: a few times a month Alcohol type: hard liquor Drug use: Never Substance use type: does not use Caregiver/Support person: No Household members: significant other and children Housing: house Number of Children: 3 Communication Needs: None current occupation: [employer] Pets and animals: Yes Pets and animals: dog(s) Sexually active: No Do you think of yourself as: straight/heterosexual Current gender identity: female What is your relationship status?: living with partner How often do you talk on the phone with friends or family?: once per week How often do you get together with friends or relatives?: once per week Do you belong to any clubs or organized social groups?: no Panel score (0-1 are the most socially isolated patients): 1 What type of physical activity do you participate in: none Frequency: does not exercise Erin/Oriental Orthodox: Oriental Orthodox Special erin needs: No Seatbelt use: always Helmet use: Yes Helmet use: always Drive intox or ride w/intox bus driver/monitor: No Do you feel safe at home: Yes Do you feel safe in your relationship?: Yes History History 3 Para 3 Hx # Term Pregnancies 1 Multiple births Hx # Pregnancies 2 Ectopic pregnancies AB induced Hx Number of Living Children 3 AB spontaneous Past Pregnancies Del. Date GA/Weeks # Preg Succ Route Wgt Sex Labor Lgth Anesth esia Location Prov Complic 06/23/09 37 No vaginal Female [facility] 09/03/15 28 No Female [facility] cord accident 09/05/21 35 No Yes vaginal Female 14hr [facility] Dr. Raimundo prado Delivery Date: 06/23/09 Last Updated by: Peggy Steen M.D. went into labor at 32- 33 weeks, stayed at [facility] until 35wks, came home then had water broken at [facility] due to dilation of 5 cm at 37 weeks. Delivery Date: 09/03/15 Last Updated by: Peggy Steen M.D. Pt went into labor, had a cord prolapse which led to emergent c- section Delivery Date: 09/05/21 Last Updated by: Peggy Steen MD PTL&D, [facility]
[2024-10-19 01:24] LABS: ALT 40 U/L (14-59); AST 28 U/L (15-37); Albumin 5.1 g/dL (3.4-5.0); Alkaline Phosphatase 80 U/L (46-116); Anion Gap 10.9 mmol/L (3-11); BUN 5 mg/dL (7-18); Bilirubin, Total 0.6 mg/dL (0.2-1.0); CO2 28.1 mmol/L (21.0-32.0); Calcium 9.9 mg/dL (8.5-10.1); Chloride 102 mmol/L (98-107); Estimated GFR 75.81 (mL/min/1.73m2); Glucose 110 mg/dL (74-106); Lipase 27 U/L (<78); Magnesium 2.3 mg/dL (1.8-2.4); Potassium 3.0 mmol/L (3.5-5.1); Sodium 141 mmol/L (136-145); Total Protein 9.0 g/dL (6.4-8.2)
[2024-10-19 01:25] LABS: Troponin I < 4 ng/L (<or=51)
--- NOTE | 2024-10-19 01:43 | DI.VRAD_ITS ---
PROCEDURE INFORMATION: Exam: CT Abdomen And Pelvis With Contrast Exam date and time: 10/19/2024 1:02 AM Age: 34 years old Clinical indication: Generalized; Diffuse abdominal pain TECHNIQUE: Imaging protocol: Computed tomography of the abdomen and pelvis with contrast. COMPARISON: No relevant prior studies available. FINDINGS: Lungs: Mild dependent atelectasis. Liver: Possible fatty infiltration of the liver, difficult to confidently diagnose by CT imaging after administration of intravenous contrast. Gallbladder and biliary ducts: Gallbladder partially collapsed. No calcified gallstones seen. No biliary dilatation. Pancreas: Normal appearing pancreas. Spleen: Normal appearing spleen. Adrenal glands: Normal appearing adrenal glands. Kidneys and ureters: Normal appearing kidneys. No hydronephrosis. Stomach and bowel: Stomach moderately distended with fluid and ingested material. No small bowel dilatation to suggest obstruction. Fluid throughout the cecum, ascending colon, and transverse colon suggesting impending diarrhea. Normal-appearing fecal material in the downstream colon. Mural thickening throughout the cecum, ascending colon, and transverse colon with mild prominence of the small pericolic vascular structures suspicious for acute segmental colitis. Clinical correlation recommended. No evidence of focal acute diverticulitis. Appendix: Normal appendix. Intraperitoneal space: Small amount of free fluid in the deep pelvis. Diastasis recti. Vasculature: Normal caliber abdominal aorta. Lymph nodes: No pathologically enlarged mesenteric, retroperitoneal, or pelvic sidewall lymph nodes. Urinary bladder: Urinary bladder partially collapsed but grossly unremarkable, as seen. Reproductive: Normal-sized uterus. T-shaped intrauterine device in-situ. Ovaries partially obscured but normal in size. 1.2 cm x 2.1 cm collapsing right ovarian corpus luteum with discontinuous marginal enhancement suggesting luteal rupture, images 84 of series 8 and 40 of series 4. Bones/joints: No acute fracture seen among the bones of the abdomen or pelvis. Soft tissues: No significant ventral or inguinal hernia. IMPRESSION: 1. Collapsing right ovarian corpus luteum with fluid in the right adnexal region and in the cul-de-sac of Sai. 2. Mural thickening through the cecum, ascending colon, and transverse colon with mild prominence of the small pericolic vascular structures. Acute segmental colitis is suspected. Infectious, inflammatory, or ischemic etiologies could produce this appearance. An artifactual appearance created by underdistention is considered less likely but not excluded. 3. Fluid throughout the proximal colon suggesting impending diarrhea. 4. Probable fatty infiltration of the liver, difficult to confidently diagnose by CT imaging after administration of intravenous contrast. Dictated and Authenticated by: Vladimir Kwok MD. Orderin Nydia Gatica MD
[2024-10-19] MEDS: POTASSIUM CHLORIDE 20 MEQ/100 ML BAG 50 MEQ IV_INF (01:49)
[2024-10-19] MEDS: Potassium Chloride 20 MEQ TABCR 40 MEQ PO (01:56)
[2024-10-19 02:16] LABS: Troponin I < 4 ng/L (<or=51)
[2024-10-19 02:38] VITALS: PULSE 78; RESP 18; TEMP 36.5; O2SAT 98
== END 2024-10-19 02:43 | disposition home or self-care (01) ==
PROVIDERS: Emergency Provider Student in an Organized Health Care Education/Training Program; PCP Nurse Practitioner Family
DX: K52.9 Noninfective gastroenteritis and colitis, unspecified (principal); E87.6 Hypokalemia; R25.2 Cramp and spasm; R11.0 Nausea
CPT/HCPCS: 36415; 80053; 81025; 83690; 93005; 96365; 96375; 99285; 74177; 81003; 81015; 83735; 84484; 85025; 93010; 99284; J0131; J1885; J3480; J3490

== ENCOUNTER 2024-11-22 14:15 | Outpatient (REF) | payer MEDICAID, SELFPAY ==
--- NOTE | 2024-11-22 13:20 | PAPFT_PTH ---
PATIENT: Miya Merritt I LOC: [facility] U#:[id number] AGE/SX: 34/F ROOM: RE11/22/[address]: Peggy Steen MD : 1990 BED: DIS: 11/22/2024 SPEC #: [id number] RECD: 11/22/24 18:22 STATUS: ELANA REAmadou #: [id number] MATTIE: 11/22/24 13:[address]: Peggy Steen DEPT: [facility] Cytology RECD BY: Maryam King ENTERED: 11/22/24 18:22 SP TYPE: PAPFT OTHR DR: Hieu Cardoza DNP Tissues: 1 - CX/ENDOCX FOR PAP SMEARS Procedures: PAP THIN PREP/[facility] Screening HPV DNA PROBE Comments: [id number] (HPV 16 & 18/45) (CHLAMYDIA/GC)
[2024-11-23 12:35] LABS: Chlamydia Result Negative (Negative); GC Result Negative (Negative)
== END 2024-11-22 14:16 | disposition home or self-care (01) ==
LOC: LBN 14:15
PROVIDERS: PCP Nurse Practitioner Family; Visit Provider Obstetrics & Gynecology
DX: Z12.4 Encounter for screening for malignant neoplasm of cervix (principal)
CPT/HCPCS: 87491; 87591; 88142; 87624

== ENCOUNTER 2024-12-22 20:46 | Emergency (ER) | payer MEDICAID, SELFPAY ==
[2024-12-22] VITALS (12 sets, daily range): BP systolic 101–127; BP diastolic 68–86; PULSE 89–119; RESP 16–20; TEMP 36.8; O2SAT 98–100
--- NOTE | 2024-12-22 20:45 | DI.CT_ITS ---
Exam(s) CT ABDOMEN PELVIS W EXAM: CT ABDOMEN PELVIS W x CLINICAL HISTORY: LLQ pain, h/o ovarian cyst rupture. TECHNIQUE: Imaging Protocol: Axial computed tomography images with coronal and sagittal reformatted images were created and reviewed CONTRAST MATERIAL: Intravenous: Omnipaque-350 100cc Oral: None COMPARISON: CT CT ABDOMEN PELVIS W from 10/19/2024 FINDINGS: VISUALIZED LUNG BASES: No nodules nor pleural effusions evident. ABDOMEN: There is no ascites. LIVER: There are no focal hepatic lesions evident. No dilated intrahepatic ducts. GALLBLADDER/BILIARY: No obvious gallbladder pathology. CBD is not dilated. PANCREAS: No evidence of pancreatic mass nor dilatation of the pancreatic duct. SPLEEN: Spleen is not enlarged. No obvious intrasplenic lesions. Splenic and portal veins are patent. ADRENALS: There are no significant adrenal masses. KIDNEYS:No cysts evident. No solid renal masses. No calculi nor hydronephrosis.. ABDOMINAL AORTA: Abdominal aorta is not enlarged. LYMPH NODES:There is no retroperitoneal nor paraaortic adenopathy. ABDOMINAL WALL: No evidence of significant anterior abdominal wall nor inguinal hernia. GI: There is no evidence of small bowel obstruction, free air, nor abscess. No evidence of appendix. Colon is fluid-filled. There appears to be a colitis pattern in the descending with circumferential mural thickening to 4 mm thickness. There is no evidence of sigmoid diverticular disease. PELVIS: GI: No evidence of appendicitis. LYMPH NODES: There is no intrapelvic nor inguinal adenopathy. REPRODUCTIVE: Uterus is retroverted and contains an IUD in satisfactory position. There is a peripherally enhancing corpus luteal cyst in the right ovary which measures 1.2 x 1.2 cm. There is no free fluid in the adnexal regions nor in the cul-de-sac. Left ovary appears unremarkable. There no extra ovarian adnexal masses. URINARY BLADDER: Partially collapsed. No obvious abnormality. OSSEOUS: No fractures and no significant osseous lesions. However, there appears to be bilateral sacroiliitis (no ankylosis of the SI joints). IMPRESSION: 1. There appears to be a colitis pattern involving left side of the colon. No evidence of diverticulitis. No evidence of appendicitis. 2. There is sacroiliitis evident. This also points towards inflammatory bowel disease. 3. There is a corpus luteal cyst in the right ovary measuring 12 x 12 mm. There is no surrounding adnexal fluid nor fluid in the cul-de-sac. 4. There is an IUD in satisfactory position in the retroverted uterus Report called by myself to ER provider 12/22/2024 at 10:50 p.m. RADIATION DOSE DELIVERED: 420.44mGy.cm Total DLP DATA REPOSITORY: All CT scans at this facility are submitted to the National Radiology Data Registry (NRDR) Dose Index Registry (DIR) with the [employer] (ACR). RADIATION OPTIMIZATION: All CT scans at this facility use at least one of these dose optimization techniques: automated exposure control; mA and/or kV adjustment per patient size (includes targeted exams where dose is matched to clinical indication); or iterative reconstruction.
--- NOTE | 2024-12-22 20:49 | W.ED.GENAD ---
Discharge Plan Disposition Patient Disposition: Home Discharge Details Clinical Impression: Gastroenteritis, Acute hypokalemia Primary Care Provider: Hieu Katz ED Provider: Debra Whyte Home Meds and New Rx's Prescriptions: No Action Emgality Pen 120 mg/mL pen injector 120 mg subcut QMONTH mecobalamin (vitamin B12) 1,000 mcg tablet,chewable 1,000 mcg PO DAILY Mirena 21 mcg/24hr (up to 8 yrs) 52 mg intrauterine device 1 device intrauterine ONCE Rx Instructions: as a single dose estradiol 0.01 % (0.1 mg/gram) cream 0.25 g vaginal DAILY Qty: 42.5 4RF Rx Instructions: Massage pea-sized amount around the labial edges and clitoral soliman, any area that has been developing the sores. Use nightly x2wks, then decrease use to 2-3x/week. eletriptan 20 mg tablet See Rx Instructions PO .COMPLEX Rx Instructions: take 1 tab at onset of headache; if no relief may repeat 1 tab after at least 2 hrs; max = 4 tabs/24 hr PO albuterol sulfate 1.25 mg/3 mL solution for nebulization 1.25 mg inhalation QID PRN (Reason: shortness of breath or wheezing) Qty: 90 6RF albuterol sulfate [Ventolin HFA] 90 mcg/actuation HFA aerosol inhaler 2 puff inhalation Q6H PRN (Reason: shortness of breath or wheezing) Qty: 8.5 12RF pantoprazole 40 mg tablet,delayed release (DR/EC) 40 mg PO DAILY Qty: 90 4RF lorazepam 0.5 mg tablet 0.5 mg PO DAILY PRN (Reason: anxiety) Qty: 10 0RF ipratropium-albuterol 0.5 mg-3 mg(2.5 mg base)/3 mL solution for nebulization 3 ml inhalation QID PRN (Reason: wheezing) Qty: 180 0RF Tezspire 210 mg/1.91 mL (110 mg/mL) pen injector 210 mg subcut Q4W Qty: 1.91 12RF dicyclomine 10 mg capsule 10 mg PO QID PRN (Reason: abdominal pain) Qty: 60 0RF tirzepatide (weight loss) 5 mg/0.5 mL pen injector 5 mg subcut QWEEK Qty: 2 0RF Rx Instructions: for 4 weeks ondansetron 4 mg tablet,disintegrating 4 mg PO Q6H PRN (Reason: nausea and vomiting) Qty: 60 0RF Discharge Instructions Instructions: High Potassium Diet Additional Instructions: Please call your primary care provider in the morning to schedule follow-up a week for reassessment. I recommend that you have your blood work rechecked sure that potassium levels have normalized. Your workup today was overall reassuring. You may use Tylenol and ibuprofen as needed for discomfort. Stay hydrated, drinking plenty of fluids throughout the day. Advance diet slowly as tolerated. You may use Zofran as needed for severe nausea/vomiting. Your CAT scan showed small colitis pattern, likely viral in etiology. There is no evidence of systemic bacterial infection at this time. There was evidence of sacroiliitis, which is inflammation of the sacroiliac joints. This can be associated with inflammatory bowel disorders, though could also be related to autoimmune disorders, repetitive movement, or trauma. This was noted previously on your CAT scan, so is unlikely to be a new finding. There is a corpus luteum cyst on the right., This likely physiologic/associated with your reproductive cycle; there is no free fluid concerning for rupture. Your potassium was very low today. I recommend that he increase your consumption of potassium rich foods such as oranges, bananas, and potatoes. Please be sure to drink electrolyte rich fluids to help stay hydrated (Gatorlyte is a great option). Return to emergency department if you develop new fever/chills associated with abdominal pain, uncontrollable nausea/vomiting, blood in your stool or vomit, episodes of passing out, or if you are very worried you need to be rechecked immediately Referrals: Hieu Katz NP [Primary Care Provider, Medicine] HPI General Date/Time Provider Initiated Documentation: 12/22/24 20:48. HPI Narrative: Miya is a 34-year-old female presents to the emergency department today for evaluation of sudden onset of left lower quadrant abdominal pain/suprapubic pain, nausea with vomiting (x 4), watery diarrhea (x 3), and lightheadedness. She reports symptoms started couple of hours ago with no apparent trigger. Denies associated fever/chills, recent illness, blood in stool or emesis, change in bladder or bowel function prior to onset of symptoms, unusual vaginal discharge. Says symptoms are similar to when she had a burst ovarian cyst (right sided, occurred couple of months ago). She reports she has had chronic nausea for the last couple of months since the first ovarian cyst. She reports she has had some increased wheezing lately, as she is waiting for a PA on her controller asthma medication. PMH significant for asthma, HTN, POTS, nephrolithiasis. SH significant for , neck surgery. Related Data Home Medications Medication Instructions Recorded Confirmed albuterol sulfate 1.25 mg/3 mL 1.25 mg (3 mL) inhalation QID PRN 01/26/23 12/22/24 solution for nebulization shortness of breath or wheezing #90 mL eletriptan 20 mg tablet See Rx Instructions PO .COMPLEX 05/19/23 12/22/24 levonorgestrel (Mirena) 1 device intrauterine ONCE 12/10/23 12/22/24 albuterol sulfate 90 mcg/actuation 2 puff inhalation Q6H PRN 02/23/24 12/22/24 aerosol inhaler (Ventolin HFA) shortness of breath or wheezing #8.5 grams pantoprazole 40 mg tablet,delayed 40 mg PO DAILY #90 tabs 05/10/24 12/22/24 release estradiol 0.01% (0.1 mg/gram) 0.25 g vaginal DAILY #42.5 grams 05/12/24 12/22/24 vaginal cream lorazepam 0.5 mg tablet 0.5 mg PO DAILY PRN anxiety #10 07/14/24 12/22/24 tabs galcanezumab-gnlm 120 mg/mL 120 mg subcut QMONTH 08/13/24 12/22/24 subcutaneous pen injector (Emgality Pen) mecobalamin (vitamin B12) 1,000 1,000 mcg PO DAILY 08/13/24 12/22/24 mcg chewable tablet ipratropium 0.5 mg-albuterol 3 mg 3 ml inhalation QID PRN wheezing 09/06/24 12/22/24 (2.5 mg base)/3 mL nebulization #180 mL soln tezepelumab-ekko 210 mg/1.91 mL 210 mg (1.91 mL) subcut Q4W #1.91 09/15/24 12/22/24 (110 mg/mL) subcutaneous pen mL injector (Tezspire) dicyclomine 10 mg capsule 10 mg PO QID PRN abdominal pain 10/19/24 12/22/24 #60 caps tirzepatide (weight loss) 5 mg/0.5 5 mg (0.5 mL) subcut QWEEK #2 mL 12/12/24 12/22/24 mL subcutaneous pen injector ondansetron 4 mg disintegrating 4 mg PO Q6H PRN nausea and 12/20/24 12/22/24 tablet vomiting #60 tabs Previous Rx's Medication Instructions Recorded albuterol sulfate 1.25 mg/3 mL 1.25 mg (3 mL) inhalation QID PRN 01/26/23 solution for nebulization shortness of breath or wheezing #90 mL albuterol sulfate 90 mcg/actuation 2 puff inhalation Q6H PRN 02/23/24 aerosol inhaler (Ventolin HFA) shortness of breath or wheezing #8.5 grams pantoprazole 40 mg tablet,delayed 40 mg PO DAILY #90 tabs 05/10/24 release estradiol 0.01% (0.1 mg/gram) 0.25 g vaginal DAILY #42.5 grams 05/12/24 vaginal cream lorazepam 0.5 mg tablet 0.5 mg PO DAILY PRN anxiety #10 07/14/24 tabs ipratropium 0.5 mg-albuterol 3 mg 3 ml inhalation QID PRN wheezing 09/06/24 (2.5 mg base)/3 mL nebulization #180 mL soln tezepelumab-ekko 210 mg/1.91 mL 210 mg (1.91 mL) subcut Q4W #1.91 09/15/24 (110 mg/mL) subcutaneous pen mL injector (Tezspire) dicyclomine 10 mg capsule 10 mg PO QID PRN abdominal pain 10/19/24 #60 caps tirzepatide (weight loss) 5 mg/0.5 5 mg (0.5 mL) subcut QWEEK #2 mL //25 mL subcutaneous pen injector ondansetron 4 mg disintegrating 4 mg PO Q6H PRN nausea and 12/20/24 tablet vomiting #60 tabs Allergies Allergy/AdvReac Type Severity Reaction Status Date / Time banana Allergy Unknown Skin Rash Verified 12/22/24 23:16 house dust Allergy Unknown Itching Unverified 12/22/24 23:16 peach Allergy Swelling/Ed Verified 12/22/24 23:16 [place] vancomycin Allergy Swelling/Ed Verified 12/22/24 23:16 [place] adhesive tape AdvReac Intermediate Itching Verified 12/22/24 23:16 budesonide (From Symbicort) AdvReac Skin Rash Verified 12/22/24 23:16 formoterol (From Symbicort) AdvReac Skin Rash Verified 12/22/24 23:16 General ROXANNE: 3 Exam Const General: cooperative and no acute distress Nutritional Appearance: average body habitus HENMT Head: normal to inspection Ears: hearing grossly normal bilaterally Face and sinus: dry mucous membranes Resp Effort & Inspection: normal respiratory effort and able to speak in complete sentences Auscultation: diminished lung sounds Cardio Rate: tachycardic Rhythm: regular rhythm GI Inspection: normal to inspection Palpation: soft, not firm, no guarding and tender in the LLQ and suprapubicly Skin General skin exam: no rashes or lesions noted Medical Decision Making Miya is a 34year old female who presents to the emergency department today for evaluation of LLQ/lower abdominal pain with nausea/vomiting/diarrhea. She does report that she recently had endoscopies and colonoscopies performed to evaluate etiology of chronic nausea, no acute findings were noted. Past medical history is significant for ruptured ovarian cyst, asthma, HTN. Physical exam notable for uncomfortable appearing patient with tacky mucous membranes. Tachycardia noted. Abdomen soft, nondistended, tender to palpation in the lower abdomen. D/dx includes but is not limited to: Gastroenteritis, ovarian cyst, diverticulitis/colitis, UTI, dehydration, electrolyte balance I independently interpreted the following tests: CBC unremarkable. CMP notable for hypokalemia, potassium 2.9. EKG reassuring, sinus tachycardia rate 100, no changes consistent with acute ischemia. Normal intervals. Initial UA was not a clean-catch and thus had significant contamination, repeat UA was not consistent with UTI. While in the emergency department, Miya received 1.5 L of normal saline, potassium p.o. and IV, Toradol for pain, and Zofran for nausea. She reported good improvement of symptoms after receiving Zofran/Toradol/normal saline, says it took the edge off. Tachycardia resolved after fluids. On re-examination, soft, nondistended, nontender to palpation, no rigidity or guarding. CT scan notable for pattern c/w colitis, 12 mm R side corpus luteal cyst, and IUD in place. Overall workup today reassuring, consistent with gastroenteritis, likely viral in etiology. No red flags concerning for surgical bleeding, invasive infectious colitis, ischemic colitis, or inflammatory bowel disease at this time. Recommend continued follow-up with PCP and gastroenterology for further evaluation/management as needed. Reviewed discharge instructions with patient, including symptomatic management and red flags indicating need for return to emergency care. She voices agreement plan of care. Medical Records Medical records narrative: I did review previous medical records, including PCP annual exam on 08/14/2023 and ED visit on 10/19/2024. Imaging Data Radiologic Study: Radiologist's impression: Exam(s) CT ABDOMEN PELVIS W EXAM: CT ABDOMEN PELVIS W x CLINICAL HISTORY: LLQ pain, h/o ovarian cyst rupture. TECHNIQUE: Imaging Protocol: Axial computed tomography images with coronal and sagittal reformatted images were created and reviewed CONTRAST MATERIAL: Intravenous: Omnipaque-350 100cc Oral: None COMPARISON: CT CT ABDOMEN PELVIS W from 10/19/2024 FINDINGS: VISUALIZED LUNG BASES: No nodules nor pleural effusions evident. ABDOMEN: There is no ascites. LIVER: There are no focal hepatic lesions evident. No dilated intrahepatic ducts. GALLBLADDER/BILIARY: No obvious gallbladder pathology. CBD is not dilated. PANCREAS: No evidence of pancreatic mass nor dilatation of the pancreatic duct. SPLEEN: Spleen is not enlarged. No obvious intrasplenic lesions. Splenic and portal veins are patent. ADRENALS: There are no significant adrenal masses. KIDNEYS:No cysts evident. No solid renal masses. No calculi nor hydronephrosis.. ABDOMINAL AORTA: Abdominal aorta is not enlarged. LYMPH NODES:There is no retroperitoneal nor paraaortic adenopathy. ABDOMINAL WALL: No evidence of significant anterior abdominal wall nor inguinal hernia. GI: There is no evidence of small bowel obstruction, free air, nor abscess. No evidence of appendix. Colon is fluid-filled. There appears to be a colitis pattern in the descending with circumferential mural thickening to 4 mm thickness. There is no evidence of sigmoid diverticular disease. PELVIS: GI: No evidence of appendicitis. LYMPH NODES: There is no intrapelvic nor inguinal adenopathy. REPRODUCTIVE: Uterus is retroverted and contains an IUD in satisfactory position. There is a peripherally enhancing corpus luteal cyst in the right ovary which measures 1.2 x 1.2 cm. There is no free fluid in the adnexal regions nor in the cul-de-sac. Left ovary appears unremarkable. There no extraovarian adnexal masses. URINARY BLADDER: Partially collapsed. No obvious abnormality. OSSEOUS: No fractures and no significant osseous lesions. However, there appears to be bilateral sacroiliitis (no ankylosis of the SI joints). IMPRESSION: 1. There appears to be a colitis pattern involving left side of the colon. No evidence of diverticulitis. No evidence of appendicitis. 2. There is sacroiliitis evident. This also points towards inflammatory bowel disease. 3. There is a corpus luteal cyst in the right ovary measuring 12 x 12 mm. There is no surrounding adnexal fluid nor fluid in the cul-de-sac. 4. There is an IUD in satisfactory position in the retroverted uterus Quality:[facility] Health Related Social Needs: Health related social needs details n/a PFSH All Active Problems (Updated 12/22/24 @ 23:03 by Debra Lr) Gastroenteritis (Acute) Acute hypokalemia (Acute) Macromastia (Acute) Planning breast reduction Feb 2025 H/O neck surgery (Acute) Lower back pain (Acute) Hypertension (Chronic) Paresthesia (Acute) hands, feet, lips Neck pain (Acute) Sleep apnea (Acute) POTS (postural orthostatic tachycardia syndrome) (Acute) Anemia (Chronic) Anxiety (Chronic) Insomnia (Acute) Migraine headache with aura (Acute) Asthma (Chronic) Medical History Abnormal Pap smear of cervix Oct 2023: NIL/HRHPV+ -->colp benign - no bx Oct 2022: ASCUS/HPV+ -->Jackson benign - no bx Sep 2021: LSIL/HPV+ -->Jackson 11/11/21: CIN1 Feb 2021: LSIL/HPV+ () Jan 2020: LSIL/HPV neg July 2014: normal/neg May 2013: ASCUS/HPV- Presence of intrauterine contraceptive device (IUD) Mirena IUD placed 11/12/23 Liletta IUD placed 11/11/21 - expelled by 12/24/21 Hx of viral pneumonia 01/23/23: Per [facility] ED. -hb Kidney stones Snoring Seasonal allergies Bronchitis H/O pre-term labor (04/17/15) 37, 28 & 35wk deliveries Surgical History S/P colonoscopy (~01/24/19) Hx of wisdom tooth extraction History of section 28 weeks. Cord prolapse. 2 layer closure. LTCS Family History Mother Mental disorder depresssion anxietty bipolar Asthma Depression Father Hypertension Hyperlipidemia Sister Depression Brother No problems noted. Daughter Asthma Depression Daughter No problems noted. Daughter No problems noted. Maternal Grandfather Diabetes Stroke Paternal Grandfather Diabetes Maternal Grandmother , 70 No problems noted. 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 [employer] Pets and animals: Yes Pets and animals: dog(s) Sexually active: No Do you think of yourself as: straight/heterosexual Current gender identity: female What is your relationship status?: living with partner How often do you talk on the phone with friends or family?: once per week How often do you get together with friends or relatives?: once per week Do you belong to any clubs or organized social groups?: no Panel score (0-1 are the most socially isolated patients): 1 What type of physical activity do you participate in: none Frequency: does not exercise Erin/Buddhist: Jehovah'S Witness Special erin needs: No Seatbelt use: always Helmet use: Yes Helmet use: always Drive intox or ride w/intox 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 Date GA/Weeks # Preg Succ Route Wgt Sex Labor Lgth Anesthesia Location Prov Complic 06/23/09 37 No vaginal Female [facility] 09/03/15 28 No Female [facility] cord accident 09/05/21 35 No Yes vaginal Female [facility] Dr. Steen Delivery Date: 06/23/09 Last Updated by: Peggy Steen M.D. went into labor at 32- 33 weeks, stayed at [facility] until 35wks, came home then had water broken at [facility] due to dilation of 5 cm at 37 weeks. Delivery Date: 09/03/15 Last Updated by: Peggy Steen M.D. Pt went into labor, had a cord prolapse which led to emergent Delivery Date: 09/05/21 Last Updated by: Peggy Steen MD PTL&D, [facility]
[2024-12-22] MEDS: Normal Saline - Diluent 50 ML VIAL IJ (21:32)
[2024-12-22] MEDS: Normal Saline Flush 10 ML SYR IVP (21:32)
[2024-12-22] MEDS: Omnipaque 350 MG/ML 100 ML BTL IJ (21:32)
[2024-12-22] MEDS: Ketorolac 15 MG/ML VIAL IVP (21:34)
[2024-12-22] MEDS: Ondansetron 4 MG/2 ML VIAL IVP (21:35)
[2024-12-22] MEDS: Normal Saline 1,000 ML 1000 ML IV (21:36)
[2024-12-22 21:39] LABS: Glucose Negative (Negative)
[2024-12-22 21:53] LABS: WBC >50 HPF (0-5)
[2024-12-22 21:54] LABS: Abs Immature Grans 0.02 10^3/uL (0.0-0.06); HCT 46.1 % (36.0-46.0); HGB 14.9 g/dL (11.2-15.7); Immature Grans % 0.2 %; MCH 24.8 pg (27.0-33.0); MCHC 32.3 % (32.0-36.0); MCV 77 fL (80-95); MPV 11.4 fL (8.0-11.0); Platelet Count 287 10^3/uL (130-400); RBC 6.01 10^6/uL (3.93-5.22); RDW 15.6 % (11.7-14.6); RDW-SD 42.6 fL; WBC 9.90 10^3/uL (4.4-10.8)
[2024-12-22 22:15] LABS: ALT 59 U/L (14-59); AST 41 U/L (15-37); Albumin 4.8 g/dL (3.4-5.0); Alkaline Phosphatase 67 U/L (46-116); Anion Gap 11.4 mmol/L (3-11); BUN 8 mg/dL (7-18); Bilirubin, Total 0.6 mg/dL (0.2-1.0); CO2 28.6 mmol/L (21.0-32.0); Calcium 9.5 mg/dL (8.5-10.1); Chloride 100 mmol/L (98-107); Glucose 94 mg/dL (74-106); Sodium 140 mmol/L (136-145); Total Protein 8.7 g/dL (6.4-8.2)
--- NOTE | 2024-12-22 22:15 | RT.EKG_ITS ---
APPROVED REPORT Exam: Resting ECG Reason for Exam: hypokalemia, weakness Patient Location: E HR:100 bpm ECG Measurements Heart Rate 100 AXIS NM 126 P 41 QRSd 87 QRS 68 QT 359 T 50 QTc 462 Conclusion Sinus tachycardia...rate> 99 No STEMI
[2024-12-22 22:16] LABS: Potassium 2.9 mmol/L (3.5-5.1)
[2024-12-22 22:17] LABS: RBC Morphology Normal
[2024-12-22 22:34] LABS: Magnesium 2.3 mg/dL (1.8-2.4)
--- NOTE | 2024-12-22 23:13 | DI.VRAD_ITS ---
PROCEDURE INFORMATION: Exam: CT Abdomen And Pelvis With Contrast Exam date and time: 12/22/2024 22:25 Age: 34 years old Clinical indication: Other: Llq pain, h/o ovarian cyst rupture TECHNIQUE: Imaging protocol: Computed tomography of the abdomen and pelvis with contrast. Contrast material: OMNIPAQUE 350; Contrast volume: 75 ml; Contrast route: INTRAVENOUS (IV); COMPARISON: CT ABDOMEN PELVIS W 10/19/2024 01:02 FINDINGS: Liver: Heterogeneous fatty liver, similar to prior. No hepatic masses. Gallbladder and biliary ducts: No calcified stones. No gross ductal dilation. Pancreas: No ductal dilation. No mass . Spleen: No splenomegaly or suspicious lesions. Adrenal glands: No suspicious mass. Kidneys and ureters: No hydronephrosis. No masses. Stomach and bowel: Minor prominence of the sigmoid colon wall, with fluid more distal than expected; mild wall thickening descending colon. A few scattered air-fluid levels in small bowel without mechanical obstruction. Appendix: Normal morphology of the appendix. Intraperitoneal space: No free air. No significant fluid collection. Vasculature: No abdominal aortic aneurysm. Lymph nodes: No significantly enlarged lymph nodes. Urinary bladder: No gross wall thickening. Reproductive: IUD in the uterus in the expected position. Right and left adnexa with typical CT appearance. Benign-appearing involuting 13 mm follicle in the right ovary. Bones/joints: No acute fracture or subluxation. Soft tissues: No suspicious lesions. IMPRESSION: 1. Mild descending and sigmoid colitis. 2. Incidental findings as described. Dictated and Authenticated by: Christine Man MD. Orderin Donte Richardson MD
[2024-12-22] MEDS: Potassium Chloride 20 MEQ TABCR 40 MEQ PO (23:17)
[2024-12-22] MEDS: POTASSIUM CHLORIDE 20 MEQ/100 ML BAG 50 MEQ IV_INF (23:18)
[2024-12-22 23:21] LABS: Glucose Negative (Negative)
[2024-12-23] VITALS (15 sets, daily range): BP systolic 96–105; BP diastolic 64–78; PULSE 87–106; O2SAT 97–99
[2024-12-23] MEDS: Ondansetron O.D.T. 4 MG TABEF, 3 TABS/BTL PO (01:40)
== END 2024-12-23 01:36 | disposition home or self-care (01) ==
PROVIDERS: Emergency Provider Nurse Practitioner Family; PCP Nurse Practitioner Family
DX: K52.9 Noninfective gastroenteritis and colitis, unspecified (principal); E87.6 Hypokalemia; R11.2 Nausea with vomiting, unspecified
CPT/HCPCS: 80053; 81025; 93005; 96361; 96374; 96375; 99285; 74177; 81003; 81015; 83735; 85025; 93010; 99284; J1885; J2405; J3480; J3490

== ENCOUNTER 2025-02-09 14:07 | Outpatient (REF) | payer MEDICAID, SELFPAY ==
--- NOTE | 2025-02-09 13:20 | CER_PTH ---
PATIENT: Miya Merritt I LOC: N U#:[id number] AGE/SX: 34/F ROOM: RE02/09/[address]: Peggy Steen MD : 1990 BED: DIS: 02/09/2025 SPEC #: [id number] RECD: 02/09/25 18:03 STATUS: ELANA REAmadou #: [id number] MATTIE: 02/09/25 13:[address]: Peggy Steen DEPT: Surgical Specimen RECD BY: Maryam King ENTERED: 02/09/25 18:03 SP TYPE: CER OTHR DR: Hieu Cardoza, XOCHILT Tissues: 1 - CERVICAL BIOPSY Procedures: GROSS AND MICRO LEVEL 4 Comments: [id number]
== END 2025-02-09 14:08 | disposition home or self-care (01) ==
LOC: LBN 14:07
PROVIDERS: PCP Nurse Practitioner Family; Visit Provider Obstetrics & Gynecology
DX: R87.612 Low grade squamous intraepithelial lesion on cytologic smear of cervix (LGSIL) (principal)
CPT/HCPCS: 88305